=== PATIENT | female | born 1950 | race Caucasian/White ===

== ENCOUNTER 2023-07-25 18:47 | Inpatient (IN) ==
[2023-07-25] MEDS: OPTIRAY 320 125ml IV ONE ×2 (19:41→22:21)
--- NOTE | 2023-07-25 19:47 | Emergency Department Note ---
Impression & Plan Sepsis, Symptoms of cerebrovascular accident (CVA), Ureterolithiasis, Hydronephrosis due to obstruction of ureter, Complicated urinary tract infection, Hypomagnesemia, Hypokalemia, Acute kidney injury, Leukocytosis, Elevated lactic acid level ED Provider Note NAME: ALEXIS GALEANO AGE: 73 SEX: F ARRIVES VIA: Ambulance INFORMANT: Patient ED PROVIDER(S): Agustin Smith MD CHIEF COMPLAINT: Confusion. PLAN: Disposition: Admit MEDICAL DECISION MAKING: The patient is a pleasant 73-year-old woman with a past medical history of hypertension who presents to the emergency department via EMS from acute care for concern of new onset confusion that they noticed when she presented there with her grandson. Patient appeared confused and had trouble finding words. The patient's grandson who lives with the patient brought the patient to [facility] but due to the weather which include severe fog did not travel with the ambulance to the emergency department. The patient attempted to describe that she went to urgent care with her grandson because she was not feeling well since last night and had nausea and vomiting throughout the night. [facility] staff had reported that the patient had hypotension in the 60s/40s. They reported she did not know the year or month or place. She did remember her birthday and the president. On arrival to the emergency department the patient was afebrile with heart rate in the 100s and blood pressure 100/50s with O2 saturation 98% on RA. On my assessment of the patient in the room she had noticeable aphasia where she was unable to find words and did have some trouble with praxis even finding her phone and using it. I then was able to contact the patient's grandson using the patient's phone with her at the bedside. He admitted that he did not have any substantial conversation with the patient when he found her this afternoon and had gone to check on her because she had not gotten out of bed all day. He reports he asked her what was going on and she expressed that she did not feel well. He asked if she wanted to the hospital and she replied "no". Thus, he insisted on bringing her to urgent care which she did. He reports that she was last normal last night around 8 PM after dinner when they were speaking and having normal conversations. She is retired but is very active. The patient's grandson reports that she was diagnosed with COVID-19 over a week ago and had cough and congestion but has been doing well and improving without issue. Given the patient's stroke symptoms which are within 24 hours consideration for endovascular therapy may be possible if an occlusion is identified. Thus, stroke alert was activated. However, the patient is not a TNK candidate given last known well of over 23 hours ago. The patient's case was discussed with [facility] tel[place]roke neurology, Dr. Ward who did evaluate the patient via telestroke terminal while awaiting CT imaging results. EKG without overt acute ischemia. CXR negative for acute cardiopulmonary process per my personal preliminary review/interpretation. WBC 23 K with neutrophil predominance and left shift. H/H without recent for comparison. Platelets within normal limits. Chemistry with an gap of 12 and bicarbonate of 22 and so no significant metabolic acidosis. Potassium 3.3 and magnesium critically low at 0.9 with IV repletion provided. Creatinine 1.6 consistent with patient's clinically dry appearance without recent values for comparison. Initial high-sensitivity troponin 33, nonspecific. Lipase not elevated. CT of the head and CT of the head and neck were performed and were negative for acute ICH, ischemia. Additionally, no large vessel occlusion is seen. 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 Appreciate telestroke assistance, consultation recommendations. Agrees no evidence of large vessel occlusion on CTA imaging and so no role for intervention at this time. However symptoms are suspected to reflect a mild stroke which the patient exhibited improvement even during examination following initiation of IV fluid hydration. Recommends loading with full dose aspirin and Plavix as well as starting high-dose statin and proceeding with further stroke/TIA evaluation with MRI and close neurologic checks. The patient and her grandson were updated and did agree with plan for admission for further stroke evaluation. Case was discussed with Dr. Mayo, [facility] hospitalist who will evaluate the patient for admission. Of note, following discussion of admission the patient had an acute clinical change where she suddenly became rigors and confused with heart rate becoming acutely tachycardic in the 170s and had abruptly become hypoxic to the 80s placed on nasal cannula by nursing. Skin appeared mottled peripherally. Lung sounds were clear bilaterally, I did perform a limited bedside cardiac ultrasound and the patient's heart appeared hyperdynamic without overt pulmonary edema on lung ultrasound. At this time patient's additional fluids and IV magnesium more being prepared and for expedited. The patient did spike a fever to 38.5 and was given IV Tylenol. The patient's heart rate gradually improved with IV Tylenol fluids and IV magnesium. Heart rate had improved to the 120s and blood pressure was stable and normal. O2 saturation remained stable as well in the mid 90s on nasal cannula. Patient's mental status had returned to normal as well. Given concern for possible hypercoagulable state given her recent COVID patient was sent back to CT for additional imaging including CTA of the chest to exclude PE and CT of abdomen pelvis for concern for sepsis. CT of the head was also performed again given mental status change. CT of the head did not show any acute changes. CTA of the chest was negative for PE or focal consolidation. CT of the abdomen pelvis demonstrates 2 x 5 mm obstructing mid ureteral stone with associated hydroureteronephrosis where infection cannot be excluded and given the context is concerning for infected renal stone leading to urosepsis. Blood cultures have been obtained. Procalcitonin was markedly elevated 87. Lactic acid elevated at 4.5. Initial antibiotic treatment started with IV Zosyn. Case was reviewed with TONG Wesley PA-C with Dr. Zaina FORTUNE urology on-call. Admitting team updated. Appreciate consultation and recommendations. Urology to take the patient to the OR for stent placement. Further management per admitting team. Triage Nursing notes reviewed and agree them. Prior/external medical records reviewed Vital Signs: reviewed Differential diagnosis: Infection, dehydration, metabolic abnormality, hypo/hyperglycemia, electrolyte disturbance, anemia, hypoxia, cardiac sources, intracerebral event, toxicologic, neurologic, as well as other pathologies. ER treatment provided: See below. Diagnostics interpreted by me: ECG: Sinus tachycardia, 109 bpm, no ectopy, no overt ST elevation or depression, QTc 460, QRS 76. Cardiac Monitoring: An order for continuous cardiac monitoring was placed and demonstrated: Sinus tachycardia, 109 bpm, no ectopy, Laboratory studies: See below Imaging studies: See below Consultation(s): [facility]roke neurology, [facility] Sylvia Salcido[facility] TONG Wesley PA-C with Dr. Zaina FORTUNE urology on-call HPI: The patient is a pleasant 73-year-old woman with a past medical history of hypertension who presents to the emergency department via EMS from acute care for concern of new onset confusion that they noticed when she presented there with her grandson. Patient appeared confused and had trouble finding words. The patient's grandson who lives with the patient brought the patient to [facility] but due to the weather which include severe fog did not travel with the ambulance to the emergency department. The patient attempted to describe that she went to urgent care with her grandson because she was not feeling well since last night and had nausea and vomiting throughout the night. [facility] staff had reported that the patient had hypotension in the 60s/40s. They reported she did not know the year or month or place. She did remember her birthday and the president. On my assessment of the patient in the room she had noticeable aphasia where she was unable to find words and did have some trouble with praxis even finding her phone and using it. I then was able to contact the patient's grandson using the patient's phone with her at the bedside. He admitted that he did not have any substantial conversation with the patient when he found her this afternoon and had gone to check on her because she had not gotten out of bed all day. He reports he asked her what was going on and she expressed that she did not feel well. He asked if she wanted to the hospital and she replied "no". Thus, he insisted on bringing her to urgent care which she did. He reports that she was last normal last night around 8 PM after dinner when they were speaking and having normal conversations. She is retired but is very active. The patient's grandson reports that she was diagnosed with COVID-19 over a week ago and had cough and congestion but has been doing well and improving without issue. ROS: See above HPI for pertinent positives & negatives. A total of 10 systems reviewed and were otherwise negative. VITALS:See Below PHYSICAL EXAMINATION: GENERAL: Awake, alert, fatigued, in no distress HENT: Normocephalic, atraumatic. Oropharynx with dry mucous membranes and otherwise unremarkable. EYES: Normal conjunctiva. Sclera non-icteric. EOMI. No nystamgus. PEARRL. NECK: Supple. No nuchal rigidity. FROM. No JVD. RESPIRATORY: Clear to auscultation. CARDIAC: Regular rate, normal rhythm. Extremities warm and well perfused. Pulses equal. ABDOMEN: Soft, non-distended. No tenderness to palpation. No rebound or guarding. No masses. RECTAL: Deferred. MUSCULOSKELETAL: Chest examination reveals no tenderness. The back is symmetrical on inspection without obvious abnormality. There is no CVA tenderness to palpation. No joint edema. LOWER EXTREMITIES: Calves are equal size bilaterally and non-tender. No edema. No discoloration. NEURO: Moderate aphasia/word finding difficulty. Difficulty with praxis figuring out how to use her phone. No focal extremity weakness. CNII-XII grossly intact. SKIN: No rash or jaundice noted. ED COURSE: Critical Care: I have personally spent greater than 125 minutes of critical care time in the direct management of this patient. This includes bedside care, interpretation of diagnostic studies, and testing, discussion with consultants, patient, and family members, and other required patient management activities. This 125 minutes is in excess of all separately billable procedures. Agustin Smith MD Past Med/Surg History Medical History History of COVID-19 History of colon polyps Anxiety HTN (hypertension) Surgical History S/P wrist surgery History of colonoscopy History of hysterectomy History of tonsillectomy Family History Grandmother Family history of diabetes mellitus Family history of colon cancer Grandfather Family history of colon cancer Aunt Family history of colon cancer Uncle Family history of colon cancer Social History Smoking Status: Never smoker Do You Dip or Chew Tobacco: No; Hx Alcohol Use: No Preferred Language: Fijian Communication Ability: Effective Banquet Server On Call Required: No Beliefs That Will Affect Care: None Current Living Situation: Family Current Living Situation Comment: GRANDSON Feels Safe at Home: Yes Assistive Devices: None Allergies Allergies Allergy/AdvReac Type Severity Reaction Status Date / Time No Known Allergies Allergy Verified 07/25/23 19:50 Home Meds Home Medications Medication Instructions Recorded Confirmed lisinopril 10 mg tablet 10 mg PO QAM 11/14/20 07/25/23 atorvastatin 40 mg tablet 40 mg PO QAM 07/25/23 07/25/23 calcium carbonate 1,000 mg-vitamin 1 tab PO DAILY 07/25/23 07/25/23 D3 20 mcg (800 unit) tablet cyanocobalamin (vitamin B-12) 1,000 mcg PO QAM 07/25/23 07/25/23 1,000 mcg tablet ibandronate 150 mg tablet 150 mg PO .EVERY 30 DAYS 07/25/23 07/25/23 metformin 1,000 mg tablet 1,000 mg PO BIDWMEAL 07/25/23 07/25/23 venlafaxine 150 mg 150 mg PO DAILY 07/25/23 07/25/23 capsule,extended release 24 hr Results & Data (ED) Vital Signs Vital Signs - 24 hr 07/25/23 18:59 07/25/23 19:03 07/25/23 19:04 Temperature 36.4 C L Temperature Source Oral Pulse Rate 106 H 112 H 111 H Pulse Rate from SpO2 Sensor 110 H Respiratory Rate 17 22 Respiratory Effort / Characteristics Non-Labored Spontaneous Respiratory Depth Normal Blood Pressure 106/59 L Blood Pressure Mean 74 Pulse Oximetry 98 95 Oxygen Delivery Method Room Air Oxygen Flow Rate Sepsis New/Unexplained Change in Mental Status Yes Sepsis Action Taken by Nursing No Action Required 07/25/23 19:30 07/25/23 19:47 07/25/23 20:00 Temperature Temperature Source Pulse Rate 114 H 108 H 107 H Pulse Rate from SpO2 Sensor 114 H 108 H 108 H Respiratory Rate 16 18 15 Respiratory Effort / Characteristics Respiratory Depth Blood Pressure 113/67 Blood Pressure Mean 82 Pulse Oximetry 96 95 96 Oxygen Delivery Method Oxygen Flow Rate Sepsis New/Unexplained Change in Mental Status Sepsis Action Taken by Nursing 07/25/23 20:00 07/25/23 20:15 07/25/23 20:30 Temperature Temperature Source Pulse Rate 106 H 103 H Pulse Rate from SpO2 Sensor 101 H Respiratory Rate 22 29 H Respiratory Effort / Characteristics Respiratory Depth Blood Pressure 107/60 115/66 Blood Pressure Mean 84 82 Pulse Oximetry 96 Oxygen Delivery Method Oxygen Flow Rate Sepsis New/Unexplained Change in Mental Status Sepsis Action Taken by Nursing 07/25/23 20:45 07/25/23 20:51 07/25/23 21:29 Temperature Temperature Source Pulse Rate 110 H 101 H 181 H Pulse Rate from SpO2 Sensor 102 H 177 H Respiratory Rate 22 18 37 H Respiratory Effort / Characteristics Respiratory Depth Blood Pressure 121/57 L 122/67 Blood Pressure Mean 78 85 Pulse Oximetry 95 89 L Oxygen Delivery Method Oxygen Flow Rate Sepsis New/Unexplained Change in Mental Status Sepsis Action Taken by Nursing 07/25/23 21:30 07/25/23 21:32 07/25/23 22:00 Temperature Temperature Source Pulse Rate 180 H 144 H Pulse Rate from SpO2 Sensor 171 H Respiratory Rate 50 H 33 H Respiratory Effort / Characteristics Respiratory Depth Blood Pressure 101/60 Blood Pressure Mean 73 Pulse Oximetry 75 L 97 Oxygen Delivery Method Room Air Nasal Cannula Oxygen Flow Rate 4 Sepsis New/Unexplained Change in Mental Status Sepsis Action Taken by Nursing 07/25/23 22:02 07/25/23 22:31 07/25/23 23:00 Temperature Temperature Source Pulse Rate 142 H 136 H 127 H Pulse Rate from SpO2 Sensor 142 H 136 H 128 H Respiratory Rate 27 H 21 23 Respiratory Effort / Characteristics Respiratory Depth Blood Pressure 160/86 H Blood Pressure Mean 110 Pulse Oximetry 97 96 97 Oxygen Delivery Method Oxygen Flow Rate Sepsis New/Unexplained Change in Mental Status Sepsis Action Taken by Nursing 07/25/23 23:15 07/25/23 23:15 07/25/23 23:30 Temperature Temperature Source Pulse Rate 127 H 127 H Pulse Rate from SpO2 Sensor 127 H 128 H Respiratory Rate 24 24 Respiratory Effort / Characteristics Respiratory Depth Blood Pressure 103/73 Blood Pressure Mean 91 Pulse Oximetry 98 97 Oxygen Delivery Method Oxygen Flow Rate Sepsis New/Unexplained Change in Mental Status Sepsis Action Taken by Nursing 07/25/23 23:31 07/25/23 23:31 07/25/23 23:42 Temperature Temperature Source Pulse Rate 127 H 129 H Pulse Rate from SpO2 Sensor 126 H 129 H Respiratory Rate 24 26 H Respiratory Effort / Characteristics Respiratory Depth Blood Pressure 81/54 L Blood Pressure Mean 70 Pulse Oximetry 94 97 Oxygen Delivery Method Oxygen Flow Rate Sepsis New/Unexplained Change in Mental Status Sepsis Action Taken by Nursing 07/25/23 23:42 07/25/23 23:51 07/25/23 23:56 Temperature Temperature Source Pulse Rate 129 H Pulse Rate from SpO2 Sensor Respiratory Rate Respiratory Effort / Characteristics Respiratory Depth Blood Pressure 104/70 110/73 Blood Pressure Mean 75 95 Pulse Oximetry Oxygen Delivery Method Oxygen Flow Rate Sepsis New/Unexplained Change in Mental Status Sepsis Action Taken by Nursing 07/25/23 23:56 07/26/23 00:00 07/26/23 00:00 Temperature Temperature Source Pulse Rate 123 H 127 H Pulse Rate from SpO2 Sensor 129 H 123 H Respiratory Rate 24 23 Respiratory Effort / Characteristics Respiratory Depth Blood Pressure 130/71 Blood Pressure Mean 82 Pulse Oximetry 96 95 Oxygen Delivery Method Oxygen Flow Rate Sepsis New/Unexplained Change in Mental Status Sepsis Action Taken by Nursing 07/26/23 00:22 Temperature 36.6 C Temperature Source Oral Pulse Rate Pulse Rate from SpO2 Sensor Respiratory Rate Respiratory Effort / Characteristics Respiratory Depth Blood Pressure Blood Pressure Mean Pulse Oximetry Oxygen Delivery Method Oxygen Flow Rate Sepsis New/Unexplained Change in Mental Status Sepsis Action Taken by Nursing Laboratory Data Attestation: I reviewed the patient's lab results. 07/25/23 23:04 07/25/23 18:55 Lab Results 07/25/23 07/25/23 07/25/23 Range/Units 18:05 18:55 19:48 WBC 23.31 H (4.8-10.8) K/ul RBC 3.78 L (4.20-5.40) M/uL Hgb 11.1 L (12.0-16.0) g/dl Hct 34.0 L (37.0-47.0) % MCV 89.9 (80.0-100.0) fL MCH 29.4 (25.0-34.0) pg MCHC 32.6 (32.0-36.0) g/dL RDW Std Deviation 42.5 (36.4-46.3) fL RDW Coeff of Mary 13.1 (11.5-14.5) % Plt Count 215 (130-400) K/uL MPV 10.7 (9.4-12.4) fL Immature Gran % (Auto) 4.3 % Neut % (Auto) 89.2 % Lymph % (Auto) 2.2 % [place] % (Auto) 3.7 % Eos % (Auto) 0.4 % Baso % (Auto) 0.2 % Reticulocyte % (Auto) (0.50-2.00) % Neut # (Auto) 20.78 H (1.40-6.50) K/uL Lymph # (Auto) 0.52 L (1.20-3.40) K/uL [place] # (Auto) 0.87 H (0.11-0.59) K/uL Eos # (Auto) 0.09 (0.00-0.50) K/uL Baso # (Auto) 0.05 (0.00-0.20) K/uL Reticulocyte # (0.020-0.100) 10^6/uL Immature Gran # (Auto) 1.00 H (0.01-0.20) K/uL PT 12.1 H (9.0-12.0) Seconds INR 1.1 (0.9-1.1) APTT 27 (21-31) Seconds PTT Ratio 1.0 ABG pH (7.35-7.45) ABG pCO2 (35-46) mmHg ABG pO2 (80-95) mmHg ABG HCO3 (19-24) mmol/L ABG O2 Saturation (90-95) % ABG Base Excess (-9-1.8) mEq/L [place] Test (Pos) Oxygen Given Sodium 137 (136-145) mmol/L Potassium 3.3 L (3.5-5.1) mmol/L Chloride 103 (98-107) mmol/L Carbon Dioxide 22 (21-32) mmol/L Anion Gap 12 H (3-11) BUN 24 H (6-23) mg/dl Creatinine 1.60 H (0.6-1.2) mg/dl Est Cr Clr Drug Dosing 32.4 ml/min Est GFR ( Amer) 36.7 ml/min Est GFR (Non-Af Amer) 31.6 ml/min BUN/Creatinine Ratio 15.0 (10-20) Glucose 165 H (70-99(Fasting)) mg/dl POC Glucose 187 H (70-99) mg/dl Lactate (0.4-2.0) mmol/L Calcium 7.9 L (8.6-10.3) mg/dl Magnesium 0.9 L* (1.7-2.4) mg/dl Iron (35-150) mcg/dl Transferrin (200-360) mg/dl Ferritin (8-388) ng/ml Total Bilirubin 1.3 H (0.2-1.0) mg/dl AST 14 (13-39) U/L ALT 17 (7-52) U/L Alkaline Phosphatase 48 (34-104) U/L Troponin I High Sens 33.7 H (0-14) pg/ml Total Protein 5.7 L (6.0-8.3) gm/dl Albumin 3.3 L (3.4-5.0) gm/dl Globulin 2.4 L (2.5-4.0) gm/dl Albumin/Globulin Ratio 1.4 (0.9-2) Lipase (11-82) U/L Vitamin B12 496 (180-914) pg/ml Folate 8.70 (>5.38) ng/ml Procalcitonin 87.62 H (0-0.5) ng/ml Urine Color Urine Appearance (Clear) Urine pH (4.5-7.5) Ur Specific [place] (1.000-1.030) Urine Protein (Negative) Urine Glucose (UA) (Negative) Urine Ketones (Negative) Urine Blood (Negative) Urine Nitrite (Negative) Urine Bilirubin (Negative) Urine Urobilinogen (Negative) Ur Leukocyte Esterase (Negative) Urine WBC (Auto) (0-5) /hpf Urine RBC (Auto) (0-4) /hpf U Hyaline Cast (Auto) (0-5) /lpf U Epithel Cells (Auto) (0-5) /lpf Urine Bacteria (Auto) (Negative) SARS-CoV-2 (PCR) POSITIVE A* (Negative) Influenza Type A (PCR) Negative (Neg) Influenza Type B (PCR) Negative (Neg) RSV (RT-PCR) Negative (Neg) Blood Type Antibody Screen 07/25/23 07/25/23 07/26/23 Range/Units 22:49 23:04 00:00 WBC (4.8-10.8) K/ul RBC (4.20-5.40) M/uL Hgb 10.1 L (12.0-16.0) g/dl Hct 30.5 L (37.0-47.0) % MCV (80.0-100.0) fL MCH (25.0-34.0) pg MCHC (32.0-36.0) g/dL RDW Std Deviation (36.4-46.3) fL RDW Coeff of Mary (11.5-14.5) % Plt Count (130-400) K/uL MPV (9.4-12.4) fL Immature Gran % (Auto) % Neut % (Auto) % Lymph % (Auto) % [place] % (Auto) % Eos % (Auto) % Baso % (Auto) % Reticulocyte % (Auto) 1.10 (0.50-2.00) % Neut # (Auto) (1.40-6.50) K/uL Lymph # (Auto) (1.20-3.40) K/uL [place] # (Auto) (0.11-0.59) K/uL Eos # (Auto) (0.00-0.50) K/uL Baso # (Auto) (0.00-0.20) K/uL Reticulocyte # 0.040 (0.020-0.100) 10^6/uL Immature Gran # (Auto) (0.01-0.20) K/uL PT (9.0-12.0) Seconds INR (0.9-1.1) APTT (21-31) Seconds PTT Ratio ABG pH 7.39 (7.35-7.45) ABG pCO2 29 L (35-46) mmHg ABG pO2 101 H (80-95) mmHg ABG HCO3 18 L (19-24) mmol/L ABG O2 Saturation 98.9 H (90-95) % ABG Base Excess -6.0 (-9-1.8) mEq/L [place] Test Pos (Pos) Oxygen Given 6L Sodium (136-145) mmol/L Potassium (3.5-5.1) mmol/L Chloride (98-107) mmol/L Carbon Dioxide (21-32) mmol/L Anion Gap (3-11) BUN (6-23) mg/dl Creatinine (0.6-1.2) mg/dl Est Cr Clr Drug Dosing ml/min Est GFR ( Amer) ml/min Est GFR (Non-Af Amer) ml/min BUN/Creatinine Ratio (10-20) Glucose (70-99(Fasting)) mg/dl POC Glucose (70-99) mg/dl Lactate 4.5 H* (0.4-2.0) mmol/L Calcium (8.6-10.3) mg/dl Magnesium (1.7-2.4) mg/dl Iron < 10 L (35-150) mcg/dl Transferrin 175 L (200-360) mg/dl Ferritin 101.2 (8-388) ng/ml Total Bilirubin (0.2-1.0) mg/dl AST (13-39) U/L ALT (7-52) U/L Alkaline Phosphatase (34-104) U/L Troponin I High Sens 68.7 H* D (0-14) pg/ml Total Protein (6.0-8.3) gm/dl Albumin (3.4-5.0) gm/dl Globulin (2.5-4.0) gm/dl Albumin/Globulin Ratio (0.9-2) Lipase 7 L (11-82) U/L Vitamin B12 (180-914) pg/ml Folate (>5.38) ng/ml Procalcitonin (0-0.5) ng/ml Urine Color Yellow Urine Appearance Cloudy A (Clear) Urine pH 5.0 (4.5-7.5) Ur Specific [place] > 1.045 H (1.000-1.030) Urine Protein 1+ H (Negative) Urine Glucose (UA) Negative (Negative) Urine Ketones Trace H (Negative) Urine Blood 3+ H (Negative) Urine Nitrite Positive A (Negative) Urine Bilirubin Negative (Negative) Urine Urobilinogen Negative (Negative) Ur Leukocyte Esterase 2+ H (Negative) Urine WBC (Auto) >30 H (0-5) /hpf Urine RBC (Auto) >30 H (0-4) /hpf U Hyaline Cast (Auto) 5-10 H (0-5) /lpf U Epithel Cells (Auto) 5-10 H (0-5) /lpf Urine Bacteria (Auto) 4+ H (Negative) SARS-CoV-2 (PCR) (Negative) Influenza Type A (PCR) (Neg) Influenza Type B (PCR) (Neg) RSV (RT-PCR) (Neg) Blood Type O Positive Antibody Screen NEGATIVE Administered Medications Magnesium Sulfate/Dextrose (Magnesium Sulfate / D5w) 1 gm in 100 mls @ 50 mls/hr IV Q2H NILDA Stop: 07/26/23 03:44 Last Infusion: 07/25/23 22:35 Dose: Infused Documented By: Admin: 07/25/23 21:57 Dose: 50 mls/hr Documented By: DIMAS Discontinued Medications Aspirin (Aspirin Chew 324 Mg) 324 mg PO NOW STA Stop: 07/25/23 20:58 Last Admin: 07/25/23 21:56 Dose: Not Given Documented By: DIMAS Clopidogrel Bisulfate (Clopidogrel Bisulfate 300 Mg Tab) 300 mg PO NOW STA Stop: 07/25/23 20:58 Last Admin: 07/25/23 21:56 Dose: Not Given Documented By: BS Sodium Chloride (Nss) 1,000 mls @ 999 mls/hr IV .Q1H1M ONE Stop: 07/25/23 20:37 Last Infusion: 07/26/23 00:06 Dose: Infused Documented By: Admin: 07/25/23 20:49 Dose: 999 mls/hr Documented By: BS Magnesium Sulfate/Dextrose (Magnesium Sulfate / D5w) 1 gm in 100 mls @ 100 mls/hr IV Q1H NILDA Stop: 07/25/23 22:56 Last Infusion: 07/26/23 00:18 Dose: Infused Documented By: Admin: 07/25/23 23:12 Dose: 100 mls/hr Documented By: Infusion: 07/25/23 22:58 Dose: Infused Documented By: Admin: 07/25/23 21:58 Dose: 100 mls/hr Documented By: BS Potassium Chloride (K Smith / Wtr) 10 meq in 100 mls @ 100 mls/hr IV Q1H NILDA Stop: 07/25/23 22:59 Last Admin: 07/25/23 23:26 Dose: 100 mls/hr Documented By: BS Sodium Chloride (Nss) 1,000 mls @ 999 mls/hr IV .Q1H1M ONE Stop: 07/25/23 21:58 Last Infusion: 07/26/23 00:06 Dose: Infused Documented By: Admin: 07/25/23 21:56 Dose: 999 mls/hr Documented By: BS Acetaminophen (Ofirmev) 1,000 mg in 100 mls @ 400 mls/hr IV NOW STA Stop: 07/25/23 22:03 Last Infusion: 07/25/23 22:34 Dose: Infused Documented By: Admin: 07/25/23 22:03 Dose: 400 mls/hr Documented By: BS Piperacillin Sod/Tazobactam Sod (Zosyn) 4.5 gm in 100 mls @ 200 mls/hr IV NOW ONE Stop: 07/25/23 22:19 Last Infusion: 07/26/23 00:32 Dose: Infused Documented By: Admin: 07/25/23 23:55 Dose: 200 mls/hr Documented By: BS Prochlorperazine (Compazine) 1 mls @ 1 mls/min IV ONE ONE Stop: 07/25/23 21:55 Last Admin: 07/25/23 22:02 Dose: 1 mls/min Documented By: DIMAS Ioversol (Optiray 320 125ml) 117 ml IV ONCE ONE Stop: 07/25/23 19:41 Last Admin: 07/25/23 19:41 Dose: 117 ml Documented By: GEBrad Ioversol (Optiray 320 125ml) 117 ml IV ONCE ONE Stop: 07/25/23 22:21 Last Admin: 07/25/23 22:21 Dose: 117 ml Documented By: GEBrad Ondansetron HCl (Ondansetron Inj 2 Mg/Ml 2 Ml Vial) Confirm Administered Dose 4 mg .ROUTE .STK-MED ONE Stop: 07/25/23 21:54 Last Admin: 07/25/23 21:54 Dose: Not Given Documented By: DIMAS Imaging Data Radiologist's Impression: Head CT 07/25/23 19:36 CR Exam(s): CT HEAD Without Contrast EXAM: CT Head Without Intravenous Contrast CLINICAL HISTORY: Reason for exam: neuro deficit, acute stroke suspected. TECHNIQUE: Axial computed tomography images of the head/brain without intravenous contrast. CTDI is 46.85 mGy and DLP is 677.48 mGy-cm. Automated exposure control was utilized for the study. A dose lowering technique was utilized adhering to the principles of ALARA. COMPARISON: None. FINDINGS: Brain: No mass effect or acute infarct. No acute hemorrhage. Mild atrophy and chronic white matter disease. Ventricles: No hydrocephalus or midline shift. Bones/joints: No acute bony lesion. Soft tissues: No scalp hematoma. Sinuses: Clear. Mastoid air cells: No mastoid effusion. IMPRESSION: 1. Mild age-related findings. 2. No acute infarct, bleed, or acute intracranial abnormality. Communications: Call Doctor Stroke Electronically signed by: Raissa Hernandez M.D. 07/25/23 20:22 PM Head CTA 07/25/23 19:36 CR Exam(s): CTA HEAD With Contrast IV Amt: 117ML OPTIRAY 320 EXAM: CT Angiography Head With Intravenous Contrast CLINICAL HISTORY: Reason for exam: neuro deficit, acute stroke suspected. TECHNIQUE: Axial computed tomographic angiography images of the head with intravenous contrast. CTDI is 46.85 mGy and DLP is 677.48 mGy-cm. Automated exposure control was utilized for the study. A dose lowering technique was utilized adhering to the principles of ALARA. MIP reconstructed images were created and reviewed. CONTRAST: Patient received 117ML OPTIRAY 320 of IV contrast COMPARISON: None. FINDINGS: Right internal carotid artery: Patent. Right anterior cerebral artery: Patent. Right middle cerebral artery: Patent. Right posterior cerebral artery: Patent. Right vertebral artery: Patent. Right dominant system. Left internal carotid artery: Patent. Left anterior cerebral artery: Patent. Left middle cerebral artery: Patent. Left posterior cerebral artery: Patent. Left vertebral artery: Patent. Basilar artery: Patent. Other: Moderate atherosclerosis bilateral cavernous ICA, with less than 50% stenosis. IMPRESSION: 1. No aneurysm or large vessel occlusion. Communications: Call Doctor Stroke Electronically signed by: Raissa Hernandez M.D. 07/25/23 20:22 PM Neck CTA 07/25/23 19:36 CR Exam(s): CTA NECK With Contrast IV Amt: 117 cc opti 320 EXAM: CT Angiography Neck With Intravenous Contrast CLINICAL HISTORY: Reason for exam: neuro deficit, acute stroke suspected. TECHNIQUE: Routine carotid CT angiography protocol was performed with intravenous contrast. NASCET criteria using the distal ICAs for comparison were used for evaluation of stenoses. CTDI is 16.61 mGy and DLP is 479 mGy-cm. Automated exposure control was utilized for the study. A dose lowering technique was utilized adhering to the principles of ALARA. MIP reconstructed images were created and reviewed. Mild motion artifact. CONTRAST: Patient received 117 cc opti 320 of IV contrast COMPARISON: None. FINDINGS: Right common carotid artery: Patent. Right internal carotid artery: Patent. Atherosclerosis with approximately 50% stenosis. Right vertebral artery: Patent. Right dominant system. Left common carotid artery: Patent. Left internal carotid artery: Patent. Atherosclerosis with mild motion/streak artifact from the calcium, and irregular luminal narrowing, probably moderate, 50-60%. Suspect a high risk, ulcerative plaque in this location. Left vertebral artery: Patent. Other: Moderate atherosclerosis of the aortic arch. Mild apical pleural scarring bilaterally. IMPRESSION: 1. Moderate LEFT ICA stenosis, possible high risk, ulcerative plaque in this location. There is streak artifact from the calcium and patient motion limiting evaluation. 2. No dissection, occlusion, or other significant stenosis. CAROTID STENOSIS REFERENCE USING NASCET CRITERIA: % ICA stenosis = (1 - narrowest ICA diameter/diameter of distal cervical ICA) x 100. Mild - <50% stenosis. Moderate - 50-69% stenosis. Severe - 70-94% stenosis. Near occlusion - 95-99% stenosis. Occluded - 100% stenosis. Communications: Call Doctor Stroke Electronically signed by: Raissa Hernandez M.D. 07/25/23 20:22 PM Chest CTA 07/25/23 21:49 Exam(s): CTA CHEST IV Amt: 117 cc opti 320 EXAM: CT Angiography Chest With Intravenous Contrast CLINICAL HISTORY: Reason for exam: hypoxia, tachycardia, r/o PE. TECHNIQUE: Axial computed tomographic angiography images of the chest with intravenous contrast. CTDI is 23.36 mGy and DLP is 789.22 mGy-cm. Automated exposure control was utilized for the study. A dose lowering technique was utilized adhering to the principles of ALARA. MIP reconstructed images were created and reviewed. 117 cc Optiray 320 given IV. Moderate artifact breathing motion, body habitus and bilateral arms in the field of view. COMPARISON: None. FINDINGS: Pulmonary arteries: No pulmonary embolism. Aorta: No dissection or aneurysm. Lungs: Generally clear, mild bibasilar atelectasis or infiltrate, Limited by breathing motion. No consolidation. Pleural space: No significant effusion. No pneumothorax. Heart: Mild cardiomegaly. No significant pericardial effusion. No evidence of elevated right heart pressures. Bones/joints: No acute fracture. Soft tissues: Small hiatal hernia. Lymph nodes: No enlarged lymph nodes. IMPRESSION: 1. No pulmonary embolism. 2. Mild bibasilar atelectasis or infiltrate. 3. Limited detail due to motion artifact. Electronically signed by: Raissa Hernandez M.D. 07/25/23 23:[address] 07/25/23 21:50 Exam(s): CT HEAD Without Contrast EXAM: CT Head Without Intravenous Contrast CLINICAL HISTORY: Reason for exam: ams. TECHNIQUE: Axial computed tomography images of the head/brain without intravenous contrast. CTDI is 39.03 mGy and DLP is 546.36 mGy-cm. Automated exposure control was utilized for the study. A dose lowering technique was utilized adhering to the principles of ALARA. Residual contrast from prior exams. COMPARISON: Head CT 1937 hrs., same day. FINDINGS: Brain: No mass effect or acute infarct. No acute hemorrhage, with residual contrast in the vasculature, limiting detail. Mild atrophy and chronic white matter disease, stable. Ventricles: No hydrocephalus or midline shift. Bones/joints: No acute bony lesion. Soft tissues: No scalp hematoma. Sinuses: Clear. Mastoid air cells: No mastoid effusion. IMPRESSION: 1. Mild age-related findings. 2. No acute infarct, bleed, acute intracranial abnormality, or interval change. Electronically signed by: Raissa Hernandez M.D. 07/25/23 22:57 PM Abdomen/Pelvis CT 07/25/23 21:52 Exam(s): CT ABDOMEN + PELVIS With Contrast IV Amt: 117 cc opti 320 EXAM: CT Abdomen and Pelvis With Intravenous Contrast CLINICAL HISTORY: Reason for exam: ams, fever, vomiting. TECHNIQUE: Axial computed tomography images of the abdomen and pelvis with intravenous contrast. CTDI is 22.25 mGy and DLP is 1196.63 mGy-cm. Automated exposure control was utilized for the study. A dose lowering technique was utilized adhering to the principles of ALARA. Moderate artifact from arms in the field of view, breathing motion and body habitus. CONTRAST: Patient received 117 cc opti 320 of IV contrast COMPARISON: None. FINDINGS: Lung bases: Clear. Liver: Fatty. Gallbladder and bile ducts: Cholelithiasis without acute cholecystitis No ductal dilation. Pancreas: No ductal dilation. Spleen: Unremarkable. Adrenals: Unremarkable. Kidneys and ureters: Moderate patchy enhancement of the right renal cortex, with overall delayed enhancement, and a mildly obstructing 2 x 5 mm stone in the mid ureter at L5. Cannot rule out right pyelonephritis or infected stone, with perinephric edema, though edema can be seen with obstruction. No perinephric abscess. Small left renal cyst. No left hydronephrosis. Stomach and bowel: No obstruction. Fairly collapsed colon, wall thickening may be artifact, cannot rule out colitis. Appendix: Normal. Intraperitoneal space: No free air or fluid. Bones/joints: No acute fracture. Soft tissues: Unremarkable. Vasculature: No aortic aneurysm. Lymph nodes: No enlarged lymph nodes. Bladder: Mildly distended with contrast, grossly normal Reproductive: Unremarkable as visualized. IMPRESSION: 1. Mild right hydronephrosis, secondary to a 2 x 5 mm stone in the mid ureter. There also may be right pyelonephritis, correlate clinically; no perinephric abscess. 2. Collapsed colon, limits evaluation, cannot rule out colitis, correlate clinically to exclude this entity. 3. Cholelithiasis without acute cholecystitis. Electronically signed by: Raissa Hernandez M.D. 07/25/23 23:05 PM Discharge Plan Visit Data Chief Complaint: Altered Mental Status Stated Complaint: CONFUSION ED Provider: Agustin Smith Discharge Problem: Sepsis, Symptoms of cerebrovascular accident (CVA), Ureterolithiasis, Hydronephrosis due to obstruction of ureter, Complicated urinary tract infection, Hypomagnesemia, Hypokalemia, Acute kidney injury, Leukocytosis, Elevated lactic acid level Forms Stand Alone Forms: [facility] Prescriptions Prescriptions: No Action lisinopril 10 mg tablet 10 mg PO QAM metformin 1,000 mg Tablet 1,000 mg PO BIDWMEAL atorvastatin 40 mg Tablet 40 mg PO QAM venlafaxine 150 mg Capsule,Extended Release 24hr 150 mg PO DAILY ibandronate 150 mg Tablet 150 mg PO .EVERY 30 DAYS cyanocobalamin (vitamin B-12) 1,000 mcg Tablet 1,000 mcg PO QAM calcium carbonate-vitamin D3 1,000 mg-20 mcg (800 unit) Tablet 1 tab PO DAILY Referrals Referrals: Sulema Coughlin MD [Primary Care Provider] - Discharge Problem: Sepsis Qualifiers: Sepsis type: sepsis due to unspecified organism Sepsis acute organ dysfunction status: with acute organ dysfunction Severe sepsis acute organ dysfunction type: acute renal failure Acute renal failure type: unspecified Severe sepsis shock status: without septic shock Qualified Code(s): A41.9 - Sepsis, unspecified organism Leukocytosis Qualifiers: Leukocytosis type: bandemia Qualified Code(s): D72.825 - Bandemia
[2023-07-25 20:11] LABS: Hemoglobin 11.1 g/dl (12.0-16.0); Mean Corpuscular Hemoglobin 29.4 pg (25.0-34.0); Mean Corpuscular Hgb Conc 32.6 g/dL (32.0-36.0); Mean Corpuscular Volume 89.9 fL (80.0-100.0); Mean Platelet Volume 10.7 fL (9.4-12.4); Platelet Count 215 K/uL (130-400); RDW Coefficient of Variation 13.1 % (11.5-14.5); RDW Standard Deviation 42.5 fL (36.4-46.3); Red Blood Count 3.78 M/uL (4.20-5.40); White Blood Count 23.31 K/ul (4.8-10.8)
--- NOTE | 2023-07-25 20:22 | CT Scan Report ---
Exam(s): CTA NECK With Contrast IV Amt: 117 cc opti 320 EXAM: CT Angiography Neck With Intravenous Contrast CLINICAL HISTORY: Reason for exam: neuro deficit, acute stroke suspected. TECHNIQUE: Routine carotid CT angiography protocol was performed with intravenous contrast. NASCET criteria using the distal ICAs for comparison were used for evaluation of stenoses. CTDI is 16.61 mGy and DLP is 479 mGy-cm. Automated exposure control was utilized for the study. A dose lowering technique was utilized adhering to the principles of ALARA. MIP reconstructed images were created and reviewed. Mild motion artifact. CONTRAST: Patient received 117 cc opti 320 of IV contrast COMPARISON: None. FINDINGS: Right common carotid artery: Patent. Right internal carotid artery: Patent. Atherosclerosis with approximately 50% stenosis. Right vertebral artery: Patent. Right dominant system. Left common carotid artery: Patent. Left internal carotid artery: Patent. Atherosclerosis with mild motion/streak artifact from the calcium, and irregular luminal narrowing, probably moderate, 50-60%. Suspect a high risk, ulcerative plaque in this location. Left vertebral artery: Patent. Other: Moderate atherosclerosis of the aortic arch. Mild apical pleural scarring bilaterally. IMPRESSION: 1. Moderate LEFT ICA stenosis, possible high risk, ulcerative plaque in this location. There is streak artifact from the calcium and patient motion limiting evaluation. 2. No dissection, occlusion, or other significant stenosis. CAROTID STENOSIS REFERENCE USING NASCET CRITERIA: % ICA stenosis = (1 - narrowest ICA diameter/diameter of distal cervical ICA) x 100. Mild - <50% stenosis. Moderate - 50-69% stenosis. Severe - 70-94% stenosis. Near occlusion - 95-99% stenosis. Occluded - 100% stenosis. Communications: Call Doctor Stroke Electronically signed by: Raissa Hernandez M.D. 07/25/23 20:22 PM
--- NOTE | 2023-07-25 20:23 | CT Scan Report ---
Exam(s): CT HEAD Without Contrast EXAM: CT Head Without Intravenous Contrast CLINICAL HISTORY: Reason for exam: neuro deficit, acute stroke suspected. TECHNIQUE: Axial computed tomography images of the head/brain without intravenous contrast. CTDI is 46.85 mGy and DLP is 677.48 mGy-cm. Automated exposure control was utilized for the study. A dose lowering technique was utilized adhering to the principles of ALARA. COMPARISON: None. FINDINGS: Brain: No mass effect or acute infarct. No acute hemorrhage. Mild atrophy and chronic white matter disease. Ventricles: No hydrocephalus or midline shift. Bones/joints: No acute bony lesion. Soft tissues: No scalp hematoma. Sinuses: Clear. Mastoid air cells: No mastoid effusion. IMPRESSION: 1. Mild age-related findings. 2. No acute infarct, bleed, or acute intracranial abnormality. Communications: Call Doctor Stroke Electronically signed by: Raissa Hernandez M.D. 07/25/23 20:22 PM
--- NOTE | 2023-07-25 20:23 | CT Scan Report ---
Exam(s): CTA HEAD With Contrast IV Amt: 117ML OPTIRAY 320 EXAM: CT Angiography Head With Intravenous Contrast CLINICAL HISTORY: Reason for exam: neuro deficit, acute stroke suspected. TECHNIQUE: Axial computed tomographic angiography images of the head with intravenous contrast. CTDI is 46.85 mGy and DLP is 677.48 mGy-cm. Automated exposure control was utilized for the study. A dose lowering technique was utilized adhering to the principles of ALARA. MIP reconstructed images were created and reviewed. CONTRAST: Patient received 117ML OPTIRAY 320 of IV contrast COMPARISON: None. FINDINGS: Right internal carotid artery: Patent. Right anterior cerebral artery: Patent. Right middle cerebral artery: Patent. Right posterior cerebral artery: Patent. Right vertebral artery: Patent. Right dominant system. Left internal carotid artery: Patent. Left anterior cerebral artery: Patent. Left middle cerebral artery: Patent. Left posterior cerebral artery: Patent. Left vertebral artery: Patent. Basilar artery: Patent. Other: Moderate atherosclerosis bilateral cavernous ICA, with less than 50% stenosis. IMPRESSION: 1. No aneurysm or large vessel occlusion. Communications: Call Doctor Stroke Electronically signed by: Raissa Hernandez M.D. 07/25/23 20:22 PM
[2023-07-25 20:28] LABS: Calcium 7.9 mg/dl (8.6-10.3); Creatinine Clr Calc Pharmacy 32.4 ml/min; Est GFR (African American) 36.7 ml/min; Est GFR (Non-African American) 31.6 ml/min; Potassium 3.3 mmol/L (3.5-5.1)
[2023-07-25 20:34] LABS: Troponin I High Sensitivity 33.7 pg/ml (0-14)
[2023-07-25 20:38] LABS: INR 1.1 (0.9-1.1); Partial Thromboplastin Time 27 Seconds (21-31); Prothrombin Time 12.1 Seconds (9.0-12.0)
[2023-07-25 20:42] LABS: Albumin Globulin Ratio 1.4 (0.9-2); Albumin Level 3.3 gm/dl (3.4-5.0); Bilirubin,Total 1.3 mg/dl (0.2-1.0); Globulin 2.4 gm/dl (2.5-4.0); Magnesium 0.9 mg/dl (1.7-2.4); Total Protein 5.7 gm/dl (6.0-8.3)
[2023-07-25] MEDS: SODIUM CHLORIDE 0.9% 1,000 ML IV ONE ×2 (20:49→21:56)
[2023-07-25 21:03] LABS: Basophils # (auto) 0.05 K/uL (0.00-0.20); Basophils % (auto) 0.2 %; Eosinophils # (auto) 0.09 K/uL (0.00-0.50); Eosinophils % (auto) 0.4 %; Immature Granulocytes % (auto) 4.3 %; Lymphocytes # (auto) 0.52 K/uL (1.20-3.40); Lymphocytes % (auto) 2.2 %; Monocytes # (auto) 0.87 K/uL (0.11-0.59); Monocytes % (auto) 3.7 %; Neutrophils # (auto) 20.78 K/uL (1.40-6.50); Neutrophils % (auto) 89.2 %
[2023-07-25] MEDS: ONDANSETRON INJ 2 MG/ML 2 ML VIAL ONE (21:54)
[2023-07-25] MEDS: ASPIRIN CHEW 324 MG PO STA (21:56)
[2023-07-25] MEDS: CLOPIDOGREL BISULFATE 300 MG TAB PO STA (21:56)
[2023-07-25] MEDS: MAGNESIUM SULFATE / D5W 1 GM/100 ML BAG IV SCH ×2 (21:57→21:58)
[2023-07-25] MEDS: PROCHLORPERAZINE 1 ML IV ONE (22:02)
[2023-07-25] MEDS: ACETAMINOPHEN 1,000 MG/100 ML VIAL IV STA (22:03)
--- NOTE | 2023-07-25 22:58 | CT Scan Report ---
Exam(s): CT HEAD Without Contrast EXAM: CT Head Without Intravenous Contrast CLINICAL HISTORY: Reason for exam: ams. TECHNIQUE: Axial computed tomography images of the head/brain without intravenous contrast. CTDI is 39.03 mGy and DLP is 546.36 mGy-cm. Automated exposure control was utilized for the study. A dose lowering technique was utilized adhering to the principles of ALARA. Residual contrast from prior exams. COMPARISON: Head CT 1937 hrs., same day. FINDINGS: Brain: No mass effect or acute infarct. No acute hemorrhage, with residual contrast in the vasculature, limiting detail. Mild atrophy and chronic white matter disease, stable. Ventricles: No hydrocephalus or midline shift. Bones/joints: No acute bony lesion. Soft tissues: No scalp hematoma. Sinuses: Clear. Mastoid air cells: No mastoid effusion. IMPRESSION: 1. Mild age-related findings. 2. No acute infarct, bleed, acute intracranial abnormality, or interval change. Electronically signed by: Raissa Hernandez M.D. 07/25/23 22:57 PM
[2023-07-25 23:05] LABS: HCO3 ABG 18 mmol/L (19-24); Oxygen Saturation ABG 98.9 % (90-95); PCO2 ABG 29 mmHg (35-46); PO2 ABG 101 mmHg (80-95); pH ABG 7.39 (7.35-7.45)
--- NOTE | 2023-07-25 23:05 | CT Scan Report ---
Exam(s): CT ABDOMEN + PELVIS With Contrast IV Amt: 117 cc opti 320 EXAM: CT Abdomen and Pelvis With Intravenous Contrast CLINICAL HISTORY: Reason for exam: ams, fever, vomiting. TECHNIQUE: Axial computed tomography images of the abdomen and pelvis with intravenous contrast. CTDI is 22.25 mGy and DLP is 1196.63 mGy-cm. Automated exposure control was utilized for the study. A dose lowering technique was utilized adhering to the principles of ALARA. Moderate artifact from arms in the field of view, breathing motion and body habitus. CONTRAST: Patient received 117 cc opti 320 of IV contrast COMPARISON: None. FINDINGS: Lung bases: Clear. Liver: Fatty. Gallbladder and bile ducts: Cholelithiasis without acute cholecystitis No ductal dilation. Pancreas: No ductal dilation. Spleen: Unremarkable. Adrenals: Unremarkable. Kidneys and ureters: Moderate patchy enhancement of the right renal cortex, with overall delayed enhancement, and a mildly obstructing 2 x 5 mm stone in the mid ureter at L5. Cannot rule out right pyelonephritis or infected stone, with perinephric edema, though edema can be seen with obstruction. No perinephric abscess. Small left renal cyst. No left hydronephrosis. Stomach and bowel: No obstruction. Fairly collapsed colon, wall thickening may be artifact, cannot rule out colitis. Appendix: Normal. Intraperitoneal space: No free air or fluid. Bones/joints: No acute fracture. Soft tissues: Unremarkable. Vasculature: No aortic aneurysm. Lymph nodes: No enlarged lymph nodes. Bladder: Mildly distended with contrast, grossly normal Reproductive: Unremarkable as visualized. IMPRESSION: 1. Mild right hydronephrosis, secondary to a 2 x 5 mm stone in the mid ureter. There also may be right pyelonephritis, correlate clinically; no perinephric abscess. 2. Collapsed colon, limits evaluation, cannot rule out colitis, correlate clinically to exclude this entity. 3. Cholelithiasis without acute cholecystitis. Electronically signed by: Raissa Hernandez M.D. 07/25/23 23:05 PM
[2023-07-25 23:06] LABS: Allen Test Pos (Pos)
--- NOTE | 2023-07-25 23:06 | CT Scan Report ---
Exam(s): CTA CHEST IV Amt: 117 cc opti 320 EXAM: CT Angiography Chest With Intravenous Contrast CLINICAL HISTORY: Reason for exam: hypoxia, tachycardia, r/o PE. TECHNIQUE: Axial computed tomographic angiography images of the chest with intravenous contrast. CTDI is 23.36 mGy and DLP is 789.22 mGy-cm. Automated exposure control was utilized for the study. A dose lowering technique was utilized adhering to the principles of ALARA. MIP reconstructed images were created and reviewed. 117 cc Optiray 320 given IV. Moderate artifact breathing motion, body habitus and bilateral arms in the field of view. COMPARISON: None. FINDINGS: Pulmonary arteries: No pulmonary embolism. Aorta: No dissection or aneurysm. Lungs: Generally clear, mild bibasilar atelectasis or infiltrate, Limited by breathing motion. No consolidation. Pleural space: No significant effusion. No pneumothorax. Heart: Mild cardiomegaly. No significant pericardial effusion. No evidence of elevated right heart pressures. Bones/joints: No acute fracture. Soft tissues: Small hiatal hernia. Lymph nodes: No enlarged lymph nodes. IMPRESSION: 1. No pulmonary embolism. 2. Mild bibasilar atelectasis or infiltrate. 3. Limited detail due to motion artifact. Electronically signed by: Raissa Hernandez M.D. 07/25/23 23:05 PM
[2023-07-25 23:13] LABS: Influenza A virus by PCR Negative (Neg); Influenza B virus by PCR Negative (Neg); RSV by PCR Negative (Neg)
[2023-07-25] MEDS: POTASSIUM CHLORIDE / WTR 10 MEQ/100 ML PLCT IV SCH (23:26)
[2023-07-25 23:32] LABS: Hematocrit (blood only) 30.5 % (37.0-47.0); Hemoglobin 10.1 g/dl (12.0-16.0); Reticulocyte % 1.1 % (0.50-2.00); Reticulocytes # 0.04 10^6/uL (0.020-0.100)
[2023-07-25 23:36] LABS: SARS CoV2 RNA(COVID-19) Ceph POSITIVE (Negative)
[2023-07-25 23:46] LABS: Iron < 10 mcg/dl (35-150); Lipase 7 U/L (11-82); Transferrin 175 mg/dl (200-360)
[2023-07-25] MEDS: PIPERACILLIN/TAZOBACTAM 4.5 GM/100 ML BAG IV ONE (23:55)
--- NOTE | 2023-07-26 00:10 | Urology Consultation ---
<Statement entered by Stu Mahajan MD - 07/26/23 00:46> I have seen and discussed Ms. Kelly's case with Dillan Jones PA-C and agree with the above documentation. With fevers, leukocytosis, elevated lactic acid and vital sign changes as well as the stone seen on her CT scan, I am concerned for obstructed infection in the urine causing sepsis. I had a discussion with the patient and her family at the bedside about cystoscopy, right retrograde pyelogram and right ureteral stent placement. We discussed risks and benefits of the surgery including risks of bleeding, infection, injury to urinary tract, need for additional procedures. They expressed understanding and willingness to proceed with surgery. -Stu Mahajan MD. Date of Consultation July 26, 2023 Assessment & Plan (1) Sepsis: (2) Nephrolithiasis: I discussed with the treating emergency room physician and the patient is being admitted on the hospitalist service. There is concern the patient has underlying sepsis from urinary source we will therefore proceed as follows: Continue n.p.o. status Broad-spectrum antibiotics in the form of Zosyn Have been initiated. Antibiotic should continue and can be tailored based on culture results (patient has had blood and urine cultures ordered) IV fluid resuscitation should continue Patient is noted to have hypomagnesemia as well as hypokalemia and both have been supplemented thus far Serial labs to be followed Flomax has been ordered for expulsive therapy in the setting of the patient's documented nephrolithiasis Due to concern from sepsis from urinary source/pyelonephritis/nephrolithiasis we are planning on having the patient undergo cystoscopy with right ureteral stent placement with Dr. Mahajan this evening. I have discussed with the patient's grandson who is at bedside as well as the patient's daughter who is also at bedside and they expressed her understanding Additional recommendations be forthcoming based on her clinical course as it unfolds History of Present Illness Reason for Consultation: Nephrolithiasis/concern for sepsis from urinary source History of Present Illness This is a 73-year-old female who presented to the emergency department from an urgent care. The patient was somewhat confused at the time of my exam and I was able to converse with her grandson who was present at bedside. He notes that his grandmother had COVID approximate 2 weeks ago and she seemed to be improving from this. He did note that earlier today the patient had some generalized confusion and lethargy and did not want to get out of bed. He does note that she was essentially normal last evening at approximately 8:00 PM. Because of her confusion and lethargy she was taken to urgent care. At urgent care there was concern patient may have been suffering from a stroke so she was sent to [facility] emergency department Since arrival to the hospital patient has had labs and imaging which independent reviewed. A chest x-ray did not show any evidence of infiltrate. The patient had a CT scan of the head that showed no acute intracranial findings, specifically no acute stroke. The patient had a CT angiogram of the head and neck that did not show any vessel occlusions. Patient had a CT scan of the chest that showed no pulmonary emboli. She was noted to have bibasilar atelectasis versus infiltrates. Patient also had a CT scan of the abdomen that showed cholelithiasis without cholecystitis. The patient was also noted to have a 2 x 5 mm kidney stone on the right-hand side resulting in mild right hydronephrosis. There is also some stranding suggestive of pyelonephritis on the study. Labs were conducted including CBC her white blood cell count is elevated 23.3. Hemoglobin and hematocrit are 10.1 and 30.5. Platelet count is normal. Chemistry profile showed sodium is normal. Potassium is 3.3. BUN and creatinine are 24 and 1.6. Patient had a magnesium level of 0.9. Patient did have a slight elevation of her bilirubin at 1.3. There is no elevation of her remaining LFTs. Her lipase was nonelevated. The patient was tested for COVID which was positive. She was noted to be negative for influenza a and B as well as RSV. A lactic acid level was checked and was elevated at 4.5. There is also nowhere the mention that coagulation studies revealed a normal INR. The patient also had an ABG where she was noted to be nonacidotic with a pH of 7.39, pCO2 of 29, bicarb level of 18, and a pO2 of 101. A urinalysis is pending at this point. I was able to converse with the patient at the bedside. She does report some mild right flank pain not on the left. She denies any dysuria or hematuria. She denies any abdominal pain. She says she has no prior history of kidney stones. I also discussed with nursing staff and while the patient was in the emergency department she had episodes of hypotension with blood pressures as low as 80 systolic as well as tachycardia with heart rates as high as 170. She was also noted to be febrile at times with an axillary temperature of 38.1 At the time of my interview the patient was resting comfortably in bed she was in no distress. Allergies Allergy/AdvReac Type Severity Reaction Status Date / Time No Known Allergies Allergy Verified 07/25/23 19:50 Home Medications Medication Instructions Recorded Confirmed Type lisinopril 10 mg tablet 10 mg PO QAM 11/14/20 07/25/23 History atorvastatin 40 mg tablet 40 mg PO QAM 07/25/23 07/25/23 History calcium carbonate 1,000 mg-vitamin 1 tab PO DAILY 07/25/23 07/25/23 History D3 20 mcg (800 unit) tablet cyanocobalamin (vitamin B-12) 1,000 mcg PO QAM 07/25/23 07/25/23 History 1,000 mcg tablet ibandronate 150 mg tablet 150 mg PO .EVERY 30 DAYS 07/25/23 07/25/23 History metformin 1,000 mg tablet 1,000 mg PO BIDWMEAL 07/25/23 07/25/23 History venlafaxine 150 mg 150 mg PO DAILY 07/25/23 07/25/23 History capsule,extended release 24 hr Patient History Medical History History of colon polyps Anxiety HTN (hypertension) Surgical History S/P wrist surgery History of colonoscopy History of hysterectomy History of tonsillectomy Family History Grandmother Family history of diabetes mellitus Family history of colon cancer Grandfather Family history of colon cancer Aunt Family history of colon cancer Uncle Family history of colon cancer Social History Smoking Status: Never smoker Do You Dip or Chew Tobacco: No; Hx Alcohol Use: No Preferred Language: Arabic Communication Ability: Effective Wagon Driver Required: No Beliefs That Will Affect Care: None Current Living Situation: Family Current Living Situation Comment: GRANDSON Feels Safe at Home: Yes Assistive Devices: None Review of Systems Constitutional: + fever and + fatigue Ear, Nose, Mouth, Throat: no hearing loss Respiratory: no cough and no dyspnea Cardiovascular: no chest pain Gastrointestinal: no abdominal pain, no nausea and no vomiting Genitourinary: as per Subjective / HPI Musculoskeletal: + back pain (Right flank) Integumentary: no rash Neurologic: + generalized weakness and + confusion; no localized weakness Physical Exam Constitutional: WD/WN, vitals as above Eyes: no conjunctival abnormality ENMT: Ears: no hearing impairment and no external ear abnormality Mouth: no oropharynx abnormality Neck: trachea midline Respiratory: normal respiratory effort; no respiratory distress and no labored breathing Cardiovascular: Rate/Rhythm: regular rate and regular rhythm Vessels: dorsalis pedis pulses present and radial pulses present Gastrointestinal (Abdomen): Abdomen is soft and nondistended. There is no pain with palpation. Musculoskeletal: No calf tenderness Skin: no rashes Neurologic: At the time of my exam the patient was alert to person, place, and time. She could move all extremities and follows simple commands appropriately Genitourinary: Mild CVA tenderness with percussion on the right, no CVA tenderness with percussion on the left Results & Data Vital Signs (Past 12 Hours) Vital Signs Temp Pulse Resp BP Pulse Ox O2 Del Method O2 Flow Rate 07/25/23 23:51 129 H 07/25/23 22:02 142 H 27 H 160/86 H 97 07/25/23 22:00 144 H 33 H 07/25/23 21:32 97 Nasal Cannula 4 07/25/23 21:30 180 H 50 H 101/60 75 L Room Air 07/25/23 21:29 181 H 37 H 89 L 07/25/23 20:51 101 H 18 122/67 95 07/25/23 20:45 110 H 22 121/57 L 07/25/23 20:30 103 H 29 H 96 07/25/23 20:15 106 H 22 115/66 07/25/23 20:00 107/60 07/25/23 20:00 107 H 15 113/67 96 07/25/23 19:47 108 H 18 95 07/25/23 19:30 114 H 16 96 07/25/23 19:04 111 H 22 95 07/25/23 19:03 112 H 07/25/23 18:59 36.4 C L 106 H 17 106/59 L 98 Room Air PG Care Time/CCT Total # of Minutes Spent Total Time Spent with Patient: Total time spent is greater than 50% in coordination of care (as documented) at patient's floor/unit and/or counseling patient: Coding Level of Care Code 58750 INT INP/OBS CARE 3/75MIN Diagnoses Sepsis A41.9 Nephrolithiasis N20.0
[2023-07-26 00:12] LABS: Ferritin 101.2 ng/ml (8-388); Troponin I High Sensitivity 68.7 pg/ml (0-14)
--- NOTE | 2023-07-26 00:24 | History & Physical Report ---
Date of Service July 26, 2023 Assessment & Plan (1) Encephalopathy: Plan: Multifactorial: Severe sepsis (SIRS plus ARF plus lactic acidosis encephalopathy) secondary to complicated UTI secondary to obstructive uropathy Possible stroke given aphasia symptoms New onset anemia secondary to UGIB, Hemoccult positive melanotic stool noted at the ER hypertension, BP on the lower side hyperlipidemia, on statin Rx DM2 on oral medications, reasonable control as of recent hemoglobin A1c of 7.1 last March 2023 HCV status post Rx Hypokalemia, hypomagnesemia secondary to illness Recent COVID-19 illness from 2 weeks ago PCU CS, Cefepime Follow lactic acid response to IVF Flomax Urology consult Re: Obstructive uropathy/sepsis (Urgent stent placement recommended by by specialist.) PPI for UGIB GI consult re: UGIB Anemia workup, transfuse PRBC if hemoglobin less than 8 and or for symptomatic anemia N.p.o. status for possible procedures. Appropriate to hold home BP meds for now given borderline BP Neurochecks Hold off on additional antiplatelet Rx for now given active UGIB MRI brain, TTE for additional stroke workup Neurology consult Re: Aphasia possible CVA Update lipid profile and hemoglobin A1c ISS BG goal 1 10-1 40 Replace electrolytes DVT prophylaxis. SCDs Re: UGIB Full code Patient daughter requesting updates providers. Ms. Estrella Ector, contact #[phone]. Text document was generated using TinyTap voice recognition software. It may contain grammatical or spelling errors. Kindly contact undersigned for clarification of any documentation item in question. History of Present Illness Chief Complaint: Confusion Primary Care Provider: Sulema Coughlin MD History obtained from patient, family, and records. Limited history from patient secondary to aphasia. Medical history significant for hypertension, hyperlipidemia, DM2 on oral medications, HCV status post Rx, anxiety/mood disorder. Patient sick with COVID-19 illness 2 weeks ago as per family. Self-limited cough symptoms. Last week, patient noted to have right flank pain complaints. Patient not feeling well, not eating a lot. Occasional NSAID intake at home as per family. No hematuria complaints. Patient noted to be confused this morning. Could not get words out. Patient was not able to corn picker grandchild from school. SBP noted to be 60s at home. Patient brought to the ER for evaluation. Stroke alert called upon arrival at the ER. Aspirin, Plavix, Zosyn administered at the ER. Patient unable to answer questions regarding headache, chest pain, SOB, abdominal/flank pain. 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 Allergies Allergy/AdvReac Type Severity Reaction Status Date / Time No Known Allergies Allergy Verified 07/25/23 19:50 Home Medications Medication Instructions Recorded Confirmed Type lisinopril 10 mg tablet 10 mg PO QAM 11/14/20 07/25/23 History atorvastatin 40 mg tablet 40 mg PO QAM 07/25/23 07/25/23 History calcium carbonate 1,000 mg-vitamin 1 tab PO DAILY 07/25/23 07/25/23 History D3 20 mcg (800 unit) tablet cyanocobalamin (vitamin B-12) 1,000 mcg PO QAM 07/25/23 07/25/23 History 1,000 mcg tablet ibandronate 150 mg tablet 150 mg PO .EVERY 30 DAYS 07/25/23 07/25/23 History metformin 1,000 mg tablet 1,000 mg PO BIDWMEAL 07/25/23 07/25/23 History venlafaxine 150 mg 150 mg PO DAILY 07/25/23 07/25/23 History capsule,extended release 24 hr Past Med/Surg History Medical History History of COVID-19 History of colon polyps Anxiety HTN (hypertension) Surgical History S/P wrist surgery History of colonoscopy History of hysterectomy History of tonsillectomy Family History Grandmother Family history of diabetes mellitus Family history of colon cancer Grandfather Family history of colon cancer Aunt Family history of colon cancer Uncle Family history of colon cancer Social History Smoking Status: Current some day smoker Tobacco Type: Cigarettes Second Hand Exposure: No; Do You Dip or Chew Tobacco: No; Hx Alcohol Use: No Hx Substance Use: No Preferred Language: Arabic Communication Ability: Effective 911 Emergency Dispatcher Required: No Beliefs That Will Affect Care: None Current Living Situation: Family Current Living Situation Comment: Pt's grandsonIlir lives with her Feels Safe at Home: Yes Assistive Devices: None Review of Systems Review of Systems: Could not be reliably obtained secondary to aphasia Physical Exam Physical Exam: GENERAL: Slightly uncomfortable, aphasic, obese, no respiratory distress SKIN: Pallor, warm HEENT: Pale palpebral conjunctivae, no ptosis, dry buccal mucosa NECK : Supple, no tenderness CHEST : CTA, no tenderness HEART : Tachycardic, no obvious murmurs ABDOMEN: Some distention, right flank tenderness RECTAL : Intact sphincter, melanotic stool, FOBT positive EXTREMITIES : No LE swelling/tenderness, no other conspicuous deformities noted NEUROLOGIC : Aphasic, no facial asymmetry, gait and stance not assessed Results & Data Results & Data Vital Signs (Past 12 Hours) Vital Signs Temp Pulse Resp BP Pulse Ox O2 Del Method O2 Flow Rate 07/26/23 00:22 36.6 C 07/26/23 00:00 127 H 23 95 07/26/23 00:00 130/71 07/25/23 23:56 123 H 24 96 07/25/23 23:56 110/73 07/25/23 23:51 129 H 07/25/23 23:42 104/70 07/25/23 23:42 129 H 26 H 97 07/25/23 23:31 81/54 L 07/25/23 23:31 127 H 24 94 07/25/23 23:30 127 H 24 97 07/25/23 23:15 103/73 07/25/23 23:15 127 H 24 98 07/25/23 23:00 127 H 23 97 07/25/23 22:31 136 H 21 96 07/25/23 22:02 142 H 27 H 160/86 H 97 07/25/23 22:00 144 H 33 H 07/25/23 21:32 97 Nasal Cannula 4 07/25/23 21:30 180 H 50 H 101/60 75 L Room Air 07/25/23 21:29 181 H 37 H 89 L 07/25/23 20:51 101 H 18 122/67 95 07/25/23 20:45 110 H 22 121/57 L 07/25/23 20:30 103 H 29 H 96 07/25/23 20:15 106 H 22 115/66 07/25/23 20:00 107/60 07/25/23 20:00 107 H 15 113/67 96 07/25/23 19:47 108 H 18 95 07/25/23 19:30 114 H 16 96 07/25/23 19:04 111 H 22 95 07/25/23 19:03 112 H 07/25/23 18:59 36.4 C L 106 H 17 106/59 L 98 Room Air Laboratory Results Laboratory Results WBC 23.31 K/ul (4.8-10.8) H 07/25/23 18:55 RBC 3.78 M/uL (4.20-5.40) L 07/25/23 18:55 Hgb 10.1 g/dl (12.0-16.0) L 07/25/23 23:04 Hct 30.5 % (37.0-47.0) L 07/25/23 23:04 MCV 89.9 fL (80.0-100.0) 07/25/23 18:55 MCH 29.4 pg (25.0-34.0) 07/25/23 18:55 MCHC 32.6 g/dL (32.0-36.0) 07/25/23 18:55 RDW Std Deviation 42.5 fL (36.4-46.3) 07/25/23 18:55 RDW Coeff of Mary 13.1 % (11.5-14.5) 07/25/23 18:55 Plt Count 215 K/uL (130-400) 07/25/23 18:55 MPV 10.7 fL (9.4-12.4) 07/25/23 18:55 Immature Gran % (Auto) 4.3 % 07/25/23 18:55 Neut % (Auto) 89.2 % 07/25/23 18:55 Lymph % (Auto) 2.2 % 07/25/23 18:55 Rooks % (Auto) 3.7 % 07/25/23 18:55 Eos % (Auto) 0.4 % 07/25/23 18:55 Baso % (Auto) 0.2 % 07/25/23 18:55 Reticulocyte % (Auto) 1.10 % (0.50-2.00) 07/25/23 23:04 Neut # (Auto) 20.78 K/uL (1.40-6.50) H 07/25/23 18:55 Lymph # (Auto) 0.52 K/uL (1.20-3.40) L 07/25/23 18:55 Rooks # (Auto) 0.87 K/uL (0.11-0.59) H 07/25/23 18:55 Eos # (Auto) 0.09 K/uL (0.00-0.50) 07/25/23 18:55 Baso # (Auto) 0.05 K/uL (0.00-0.20) 07/25/23 18:55 Reticulocyte # 0.040 10^6/uL (0.020-0.100) 07/25/23 23:04 Immature Gran # (Auto) 1.00 K/uL (0.01-0.20) H 07/25/23 18:55 PT 12.1 Seconds (9.0-12.0) H 07/25/23 18:55 INR 1.1 (0.9-1.1) 07/25/23 18:55 APTT 27 Seconds (21-31) 07/25/23 18:55 PTT Ratio 1.0 07/25/23 18:55 ABG pH 7.39 (7.35-7.45) 07/25/23 22:49 ABG pCO2 29 mmHg (35-46) L 07/25/23 22:49 ABG pO2 101 mmHg (80-95) H 07/25/23 22:49 ABG HCO3 18 mmol/L (19-24) L 07/25/23 22:49 ABG O2 Saturation 98.9 % (90-95) H 07/25/23 22:49 ABG Base Excess -6.0 mEq/L (-9-1.8) 07/25/23 22:49 Damion Test Pos (Pos) 07/25/23 22:49 Oxygen Given 6L 07/25/23 22:49 Sodium 137 mmol/L (136-145) 07/25/23 18:55 Potassium 3.3 mmol/L (3.5-5.1) L 07/25/23 18:55 Chloride 103 mmol/L (98-107) 07/25/23 18:55 Carbon Dioxide 22 mmol/L (21-32) 07/25/23 18:55 Anion Gap 12 (3-11) H 07/25/23 18:55 BUN 24 mg/dl (6-23) H 07/25/23 18:55 Creatinine 1.60 mg/dl (0.6-1.2) H 07/25/23 18:55 Est Cr Clr Drug Dosing 32.4 ml/min 07/25/23 18:55 Est GFR ( Amer) 36.7 ml/min 07/25/23 18:55 Est GFR (Non-Af Amer) 31.6 ml/min 07/25/23 18:55 BUN/Creatinine Ratio 15.0 (10-20) 07/25/23 18:55 Glucose 165 mg/dl (70-99(Fasting)) H 07/25/23 18:55 POC Glucose 187 mg/dl (70-99) H 07/25/23 19:48 Lactate 4.5 mmol/L (0.4-2.0) H* 07/25/23 23:04 Calcium 7.9 mg/dl (8.6-10.3) L 07/25/23 18:55 Magnesium 0.9 mg/dl (1.7-2.4) L* 07/25/23 18:55 Iron < 10 mcg/dl (35-150) L 07/25/23 23:04 Transferrin 175 mg/dl (200-360) L 07/25/23 23:04 Ferritin 101.2 ng/ml (8-388) 07/25/23 23:04 Total Bilirubin 1.3 mg/dl (0.2-1.0) H 07/25/23 18:55 AST 14 U/L (13-39) 07/25/23 18:55 ALT 17 U/L (7-52) 07/25/23 18:55 Alkaline Phosphatase 48 U/L (34-104) 07/25/23 18:55 Troponin I High Sens 68.7 pg/ml (0-14) H* D 07/25/23 23:04 Total Protein 5.7 gm/dl (6.0-8.3) L 07/25/23 18:55 Albumin 3.3 gm/dl (3.4-5.0) L 07/25/23 18:55 Globulin 2.4 gm/dl (2.5-4.0) L 07/25/23 18:55 Albumin/Globulin Ratio 1.4 (0.9-2) 07/25/23 18:55 Lipase 7 U/L (11-82) L 07/25/23 23:04 Procalcitonin 87.62 ng/ml (0-0.5) H 07/25/23 18:55 SARS-CoV-2 (PCR) POSITIVE (Negative) A* 07/25/23 18:05 Influenza Type A (PCR) Negative (Neg) 07/25/23 18:05 Influenza Type B (PCR) Negative (Neg) 07/25/23 18:05 RSV (RT-PCR) Negative (Neg) 07/25/23 18:05 Impressions Head CTA 07/25/23 19:36 CR Exam(s): CTA HEAD With Contrast IV Amt: 117ML OPTIRAY 320 EXAM: CT Angiography Head With Intravenous Contrast CLINICAL HISTORY: Reason for exam: neuro deficit, acute stroke suspected. TECHNIQUE: Axial computed tomographic angiography images of the head with intravenous contrast. CTDI is 46.85 mGy and DLP is 677.48 mGy-cm. Automated exposure control was utilized for the study. A dose lowering technique was utilized adhering to the principles of ALARA. MIP reconstructed images were created and reviewed. CONTRAST: Patient received 117ML OPTIRAY 320 of IV contrast COMPARISON: None. FINDINGS: Right internal carotid artery: Patent. Right anterior cerebral artery: Patent. Right middle cerebral artery: Patent. Right posterior cerebral artery: Patent. Right vertebral artery: Patent. Right dominant system. Left internal carotid artery: Patent. Left anterior cerebral artery: Patent. Left middle cerebral artery: Patent. Left posterior cerebral artery: Patent. Left vertebral artery: Patent. Basilar artery: Patent. Other: Moderate atherosclerosis bilateral cavernous ICA, with less than 50% stenosis. IMPRESSION: 1. No aneurysm or large vessel occlusion. Communications: Call Doctor Stroke Electronically signed by: Raissa Hernandez M.D. 07/25/23 20:22 PM Neck CTA 07/25/23 19:36 CR Exam(s): CTA NECK With Contrast IV Amt: 117 cc opti 320 EXAM: CT Angiography Neck With Intravenous Contrast CLINICAL HISTORY: Reason for exam: neuro deficit, acute stroke suspected. TECHNIQUE: Routine carotid CT angiography protocol was performed with intravenous contrast. NASCET criteria using the distal ICAs for comparison were used for evaluation of stenoses. CTDI is 16.61 mGy and DLP is 479 mGy-cm. Automated exposure control was utilized for the study. A dose lowering technique was utilized adhering to the principles of ALARA. MIP reconstructed images were created and reviewed. Mild motion artifact. CONTRAST: Patient received 117 cc opti 320 of IV contrast COMPARISON: None. FINDINGS: Right common carotid artery: Patent. Right internal carotid artery: Patent. Atherosclerosis with approximately 50% stenosis. Right vertebral artery: Patent. Right dominant system. Left common carotid artery: Patent. Left internal carotid artery: Patent. Atherosclerosis with mild motion/streak artifact from the calcium, and irregular luminal narrowing, probably moderate, 50-60%. Suspect a high risk, ulcerative plaque in this location. Left vertebral artery: Patent. Other: Moderate atherosclerosis of the aortic arch. Mild apical pleural scarring bilaterally. IMPRESSION: 1. Moderate LEFT ICA stenosis, possible high risk, ulcerative plaque in this location. There is streak artifact from the calcium and patient motion limiting evaluation. 2. No dissection, occlusion, or other significant stenosis. CAROTID STENOSIS REFERENCE USING NASCET CRITERIA: % ICA stenosis = (1 - narrowest ICA diameter/diameter of distal cervical ICA) x 100. Mild - <50% stenosis. Moderate - 50-69% stenosis. Severe - 70-94% stenosis. Near occlusion - 95-99% stenosis. Occluded - 100% stenosis. Communications: Call Doctor Stroke Electronically signed by: Raissa Hernandez M.D. 07/25/23 20:22 PM Chest CTA 07/25/23 21:49 Exam(s): CTA CHEST IV Amt: 117 cc opti 320 EXAM: CT Angiography Chest With Intravenous Contrast CLINICAL HISTORY: Reason for exam: hypoxia, tachycardia, r/o PE. TECHNIQUE: Axial computed tomographic angiography images of the chest with intravenous contrast. CTDI is 23.36 mGy and DLP is 789.22 mGy-cm. Automated exposure control was utilized for the study. A dose lowering technique was utilized adhering to the principles of ALARA. MIP reconstructed images were created and reviewed. 117 cc Optiray 320 given IV. Moderate artifact breathing motion, body habitus and bilateral arms in the field of view. COMPARISON: None. FINDINGS: Pulmonary arteries: No pulmonary embolism. Aorta: No dissection or aneurysm. Lungs: Generally clear, mild bibasilar atelectasis or infiltrate, Limited by breathing motion. No consolidation. Pleural space: No significant effusion. No pneumothorax. Heart: Mild cardiomegaly. No significant pericardial effusion. No evidence of elevated right heart pressures. Bones/joints: No acute fracture. Soft tissues: Small hiatal hernia. Lymph nodes: No enlarged lymph nodes. IMPRESSION: 1. No pulmonary embolism. 2. Mild bibasilar atelectasis or infiltrate. 3. Limited detail due to motion artifact. Electronically signed by: Raissa Hernandez M.D. 07/25/23 23:[address] 07/25/23 21:50 Exam(s): CT HEAD Without Contrast EXAM: CT Head Without Intravenous Contrast CLINICAL HISTORY: Reason for exam: ams. TECHNIQUE: Axial computed tomography images of the head/brain without intravenous contrast. CTDI is 39.03 mGy and DLP is 546.36 mGy-cm. Automated exposure control was utilized for the study. A dose lowering technique was utilized adhering to the principles of ALARA. Residual contrast from prior exams. COMPARISON: Head CT 1937 hrs., same day. FINDINGS: Brain: No mass effect or acute infarct. No acute hemorrhage, with residual contrast in the vasculature, limiting detail. Mild atrophy and chronic white matter disease, stable. Ventricles: No hydrocephalus or midline shift. Bones/joints: No acute bony lesion. Soft tissues: No scalp hematoma. Sinuses: Clear. Mastoid air cells: No mastoid effusion. IMPRESSION: 1. Mild age-related findings. 2. No acute infarct, bleed, acute intracranial abnormality, or interval change. Electronically signed by: Raissa Hernandez M.D. 07/25/23 22:57 PM Abdomen/Pelvis CT 07/25/23 21:52 Exam(s): CT ABDOMEN + PELVIS With Contrast IV Amt: 117 cc opti 320 EXAM: CT Abdomen and Pelvis With Intravenous Contrast CLINICAL HISTORY: Reason for exam: ams, fever, vomiting. TECHNIQUE: Axial computed tomography images of the abdomen and pelvis with intravenous contrast. CTDI is 22.25 mGy and DLP is 1196.63 mGy-cm. Automated exposure control was utilized for the study. A dose lowering technique was utilized adhering to the principles of ALARA. Moderate artifact from arms in the field of view, breathing motion and body habitus. CONTRAST: Patient received 117 cc opti 320 of IV contrast COMPARISON: None. FINDINGS: Lung bases: Clear. Liver: Fatty. Gallbladder and bile ducts: Cholelithiasis without acute cholecystitis No ductal dilation. Pancreas: No ductal dilation. Spleen: Unremarkable. Adrenals: Unremarkable. Kidneys and ureters: Moderate patchy enhancement of the right renal cortex, with overall delayed enhancement, and a mildly obstructing 2 x 5 mm stone in the mid ureter at L5. Cannot rule out right pyelonephritis or infected stone, with perinephric edema, though edema can be seen with obstruction. No perinephric abscess. Small left renal cyst. No left hydronephrosis. Stomach and bowel: No obstruction. Fairly collapsed colon, wall thickening may be artifact, cannot rule out colitis. Appendix: Normal. Intraperitoneal space: No free air or fluid. Bones/joints: No acute fracture. Soft tissues: Unremarkable. Vasculature: No aortic aneurysm. Lymph nodes: No enlarged lymph nodes. Bladder: Mildly distended with contrast, grossly normal Reproductive: Unremarkable as visualized. IMPRESSION: 1. Mild right hydronephrosis, secondary to a 2 x 5 mm stone in the mid ureter. There also may be right pyelonephritis, correlate clinically; no perinephric abscess. 2. Collapsed colon, limits evaluation, cannot rule out colitis, correlate clinically to exclude this entity. 3. Cholelithiasis without acute cholecystitis. Electronically signed by: Raissa Hernandez M.D. 07/25/23 23:05 PM Diagnostic Findings EKG as per my interpretation : Rate 105, sinus tachycardia, normal axis, T wave abnormalities septal leads
[2023-07-26] MEDS ORDERED: LIDOCAINE 2% 2 ML VIAL/AMP(20MG/ML) INFIL ONE (00:41)
[2023-07-26] MEDS ORDERED: PROPOFOL IV EMULSION 10 MG/ML 20 ML VIAL IV ONE (00:41)
[2023-07-26 00:45] LABS: Appearance Urine Cloudy (Clear); Bacteria Urine Automated 4+ (Negative); Bilirubin Urine Negative (Negative); Blood Urine 3+ (Negative); Color Urine Yellow; Glucose Urine UA Negative (Negative); Ketones Urine Trace (Negative); Leukocyte Esterase Urine 2+ (Negative); Nitrite Urine Positive (Negative); Protein Urine 1+ (Negative); RBC Urine Automated >30 /hpf (0-4); Specific Gravity Urine > 1.045 (1.000-1.030); Urobilinogen Urine Negative (Negative); WBC Urine Automated >30 /hpf (0-5)
[2023-07-26 00:56] LABS: Folate (Folic Acid),Ser orPlas 8.7 ng/ml (>5.38)
[2023-07-26] MEDS ORDERED: fentaNYL citrate PF 100 MCG/2 ML VIAL ONE (01:15)
[2023-07-26] MEDS: DIATRIZOATE MEGLUMINE 30% 100ML VIAL INSTIL PRN (01:25)
--- NOTE | 2023-07-26 01:35 | Anesthesiology Consultation ---
Date of Service July 26, 2023 Assessment & Plan Chart Review Chart Review: Acceptable Risk for Surgery Consults Requested none History Surgery Operation Date: 07/26/23 01:30 Proposed Procedures p Cystoscopy Retrograde - Stu Mahajan MD Height/Weight Height: 5 ft 6 in Weight: 73.391 kg Allergies Allergy/AdvReac Type Severity Reaction Status Date / Time No Known Allergies Allergy Verified 07/25/23 19:50 Medications Home Medications Medication Instructions Recorded Confirmed Last Taken lisinopril 10 mg tablet 10 mg PO QAM 11/14/20 07/25/23 11/23/20 05:25 atorvastatin 40 mg tablet 40 mg PO QAM 07/25/23 07/25/23 Unknown calcium carbonate 1,000 mg-vitamin 1 tab PO DAILY 07/25/23 07/25/23 Unknown D3 20 mcg (800 unit) tablet cyanocobalamin (vitamin B-12) 1,000 mcg PO QAM 07/25/23 07/25/23 Unknown 1,000 mcg tablet ibandronate 150 mg tablet 150 mg PO .EVERY 30 DAYS 07/25/23 07/25/23 Unknown metformin 1,000 mg tablet 1,000 mg PO BIDWMEAL 07/25/23 07/25/23 Unknown venlafaxine 150 mg 150 mg PO DAILY 07/25/23 07/25/23 Unknown capsule,extended release 24 hr Active Medications Generic Name Dose Route Start Last Admin Trade Name Freq PRN Reason Stop Dose Admin Magnesium Sulfate/Dextrose 1 gm in 100 mls @ 50 mls/hr 07/25/23 21:45 07/25/23 22:35 Magnesium Sulfate / D5w IV 07/26/23 03:44 Infused Q2H NILDA Infusion Past Medical History Medical History History of COVID-19 History of colon polyps Anxiety HTN (hypertension) Past Family History Family History Grandmother Family history of diabetes mellitus Family history of colon cancer Grandfather Family history of colon cancer Aunt Family history of colon cancer Uncle Family history of colon cancer Past Surgical History Surgical History S/P wrist surgery History of colonoscopy History of hysterectomy History of tonsillectomy Social History Smoking Status: Never smoker tobacco type: cigarettes Do You Dip or Chew Tobacco: No Hx Alcohol Use: No substance use type: does not use Physical Exam Vital Signs Last Vital Signs Temp 36.6 C 07/26/23 00:22 Pulse 127 H 07/26/23 00:00 Resp 23 07/26/23 00:00 BP 130/71 07/26/23 00:00 Pulse Ox 95 07/26/23 00:00 O2 Del Method Nasal Cannula 07/25/23 21:32 O2 Flow Rate 4 07/25/23 21:32 Testing Laboratory Results 07/25/23 23:04 07/25/23 18:55 PT 12.1 Seconds (9.0-12.0) H 07/25/23 18:55 INR 1.1 (0.9-1.1) 07/25/23 18:55 APTT 27 Seconds (21-31) 07/25/23 18:55 Urine Color Yellow 07/26/23 00:00 Urine Appearance Cloudy (Clear) A 07/26/23 00:00 Urine pH 5.0 (4.5-7.5) 07/26/23 00:00 Ur Specific [place]app[place] > 1.045 (1.000-1.030) H 07/26/23 00:00 Urine Protein 1+ (Negative) H 07/26/23 00:00 Urine Glucose (UA) Negative (Negative) 07/26/23 00:00 Urine Ketones Trace (Negative) H 07/26/23 00:00 Urine Nitrite Positive (Negative) A 07/26/23 00:00 Ur Leukocyte Esterase 2+ (Negative) H 07/26/23 00:00 Urine WBC (Auto) >30 /hpf (0-5) H 07/26/23 00:00 Urine RBC (Auto) >30 /hpf (0-4) H 07/26/23 00:00 U Hyaline Cast (Auto) 5-10 /lpf (0-5) H 07/26/23 00:00 U Epithel Cells (Auto) 5-10 /lpf (0-5) H 07/26/23 00:00 Urine Bacteria (Auto) 4+ (Negative) H 07/26/23 00:00 Blood Type O Positive 07/25/23 23:04 Antibody Screen NEGATIVE 07/25/23 23:04 07/25/23 19:48 POC Glucose 187 H
--- NOTE | 2023-07-26 01:52 | Operative Report ---
PG Post Operative Report Pre & Post Diagnosis Operation Date: 07/26/23 01:30 Preoperative diagnosis: Urinary tract infection, right ureteral stone Postoperative diagnosis: Urinary tract infection, right ureteral stone I identified the patient and participated in the time-out.: Yes Procedure Operation Date: 07/26/23 01:30 Cystoscopy, right retrograde pyelogram, right ureteral stent placement Surgeon Stu Mahajan MD [employer] None Estimated Blood Loss 0 Findings Consistent with Post-Op Diagnosis Specimens None Drains 6 Panamanian by 24 cm double-J ureteral stent in the right ureter 16 Pan[place]ian Joshi catheter per urethra Anesthesia Type MAC Complications none Disposition Accompanied Patient To Recovery: Yes Disposition: Recovery Room (Recovered in the OR due to COVID precaution) Indications This is a 73-year-old female who presented to the emergency department on 07/25/2023 and was found to have a right ureteral stone and urinalysis suspicious for infection. She is being brought to the OR for right ureteral stent placement for maximal urinary drainage. Description of Procedure The patient was identified in the holding area and informed consent was confirmed. She was marked on the right side, then was taken to the operating room where anesthesia was initiated. She was placed in the dorsal lithotomy position with all pressure points appropriately padded. She was prepped and draped in the usual sterile fashion and a preoperative timeout was performed. A well-lubricated cystoscope was inserted per urethra and panendoscopy was performed. The urethra was normal in appearance. The bladder was of normal size with ureteral orifices in orthotopic position. The right ureteral orifice was identified and cannulated with a 5 Panamanian open-ended catheter. A retrograde pyelogram was performed demonstrating the distal ureter was normal in course and caliber. There was persistent contrast in the right kidney from earlier imaging studies. There was hydronephrosis of the right kidney. A 0.038" ZIPwire was advanced to the level of the kidney under fluoroscopic guidance. Over the wire, a 6 Panamanian x 24 centimeter double-J ureteral stent was advanced. When the wire was removed, the proximal curl was visualized in the kidney with x-ray, and the distal curl visualized in the bladder with the cystoscope. There was drainage of purulent/turbid urine through the stent. All instrumentation was removed. A 16 Pan[place]ian Joshi catheter was placed per urethra and inflated with 10 mL of normal saline. Catheter was attached to gravity drainage. The patient was then awakened from anesthesia and was recovered in the OR due to COVID precautions. I attest to the content of the Intraoperative Record and any orders documented therein. Any exceptions are noted below.
--- NOTE | 2023-07-26 02:19 | Anesthesiology Progress Note ---
Date of Service July 26, 2023 Anesthesia Post Procedure Vital Signs Vital Signs: Temp Pulse Pulse Resp BP BP Pulse Ox 07/26/23 02:06 37 C 118 H 20 94/60 L 95 07/26/23 01:56 36.9 C 116 H 18 87/57 L 98 07/26/23 00:22 36.6 C 07/26/23 00:00 127 H 23 95 07/26/23 00:00 130/71 07/25/23 23:56 123 H 24 96 07/25/23 23:56 110/73 07/25/23 23:51 129 H 07/25/23 23:42 104/70 07/25/23 23:42 129 H 26 H 97 07/25/23 23:31 81/54 L 07/25/23 23:31 127 H 24 94 07/25/23 23:30 127 H 24 97 07/25/23 23:15 103/73 07/25/23 23:15 127 H 24 98 07/25/23 23:00 127 H 23 97 07/25/23 22:31 136 H 21 96 07/25/23 22:02 142 H 27 H 160/86 H 97 07/25/23 22:00 144 H 33 H 07/25/23 21:32 97 07/25/23 21:30 180 H 50 H 101/60 75 L 07/25/23 21:29 181 H 37 H 89 L 07/25/23 20:51 101 H 18 122/67 95 07/25/23 20:45 110 H 22 121/57 L 07/25/23 20:30 103 H 29 H 96 07/25/23 20:15 106 H 22 115/66 07/25/23 20:00 107/60 07/25/23 20:00 107 H 15 113/67 96 07/25/23 19:47 108 H 18 95 07/25/23 19:30 114 H 16 96 07/25/23 19:04 111 H 22 95 07/25/23 19:03 112 H 07/25/23 18:59 36.4 C L 106 H 17 106/59 L 98 O2 Del Method O2 Flow Rate 07/26/23 02:06 Room Air 07/26/23 01:56 Nasal Cannula 4 07/26/23 00:22 07/26/23 00:00 07/26/23 00:00 07/25/23 23:56 07/25/23 23:56 07/25/23 23:51 07/25/23 23:42 07/25/23 23:42 07/25/23 23:31 07/25/23 23:31 07/25/23 23:30 07/25/23 23:15 07/25/23 23:15 07/25/23 23:00 07/25/23 22:31 07/25/23 22:02 07/25/23 22:00 07/25/23 21:32 Nasal Cannula 4 07/25/23 21:30 Room Air 07/25/23 21:29 07/25/23 20:51 07/25/23 20:45 07/25/23 20:30 07/25/23 20:15 07/25/23 20:00 07/25/23 20:00 07/25/23 19:47 07/25/23 19:30 07/25/23 19:04 07/25/23 19:03 07/25/23 18:59 Room Air Transfer of Care Handoff Completed per policy Notes Mental Status: alert / awake / arousable and participated in evaluation Patient Amnestic to Procedure: Yes Nausea / Vomiting: adequately controlled Pain: adequately controlled Airway Patency, RR, SpO2: stable & adequate BP & HR: stable & adequate Hydration State: stable & adequate Anesthetic Complications: no major complications apparent
[2023-07-26] MEDS ORDERED: PHARMACIST DISCHARGE MED REC CONSULT PRN (02:43)
[2023-07-26] MEDS ORDERED: GLUCOSE 40% GEL 15 GM TUBE PO PRN (02:56)
[2023-07-26] MEDS ORDERED: GLUCOSE 10 TAB/TUBE PO PRN (02:56)
[2023-07-26] MEDS ORDERED: GLUCAGON FOR INJ 1 MG VIAL SQ PRN (02:56)
[2023-07-26] MEDS ORDERED: NSS + 20MEQ KCL 20 MEQ/1,000 ML BAG IV ONE (03:00)
[2023-07-26] MEDS: SODIUM CHLORIDE 0.9% 1,000 ML IV ONE (03:12)
[2023-07-26] MEDS ORDERED: STAT IV Infusion **Titration per Protocol STA ×2 (04:07→12:01)
--- NOTE | 2023-07-26 04:11 | Communication Note ---
Date of Service: July 26, 2023 SBP 60s to 70s post op Lactic acid 5.6 from 4.5 after IV Zosyn and 3 L IV fluid. AP Septic shock ICU transfer Levophed
[2023-07-26] MEDS: LACTATED RINGER'S 1,000 ML IV ONE ×2 (04:30→05:38)
[2023-07-26] MEDS ORDERED: LACTATED RINGER'S 1,000 ML IV ONE ×2 (05:00→06:00)
--- NOTE | 2023-07-26 05:06 | Critical Care Consultation ---
Date of Consultation July 26, 2023 Assessment & Plan (1) Septic shock: (2) Hydronephrosis due to obstruction of ureter: (3) Acute kidney injury: (4) HTN (hypertension): (5) Complicated urinary tract infection: (6) Elevated lactic acid level: Plan Reason Critically Ill: 73-year-old female presents to the ICU with septic shock following right ureteral stone with hydronephrosis, status post right ureteral stent. Now hypotensive requiring vasopressor support. Neuro - Encephalopathy: Patient mildly confused initially presented to the emergency department with strokelike symptoms and was evaluated by neurology. Last known well was over [address] head imaging unremarkable. Most likely due to complicated UTI/sepsis. Will treat underlying cause and monitor closely. Cardiac - Shocksecondary to sepsis from urinary source, currently maintaining MAP greater than 65 with Levophed drip. Titrate as tolerated -No previous echo. Will obtain TTE -Random cortisol 59 -Patient received 2 L crystalloid bolus. Now developing some pulmonary congestion. Will hold off on aggressive fluid resuscitation for now in favor of vasopressors -CVL emergently inserted on arrival to the ICU for central venous access -Hold antihypertensives -Trending lactic acid -Continuous monitoring on telemetry Respiratory - Hypoxiano previous history of pulmonary disease. Patient currently maintaining oxygen saturation on 4 L nasal cannula, likely secondary to aggressive resuscitation and developing pulmonary congestion -Will hold on further boluses for now in favor of vasopressors -Hold off on diuresis as patient remains hypotensive -Continuous monitoring pulse ox for now --COPD > [id number] smoking history Currently smoking 1 or 2 cigarettes here and there GI - N.p.o. RENAL/LYTES - AKIcreatinine 1.6 with previous baseline is 0.89. Pre versus post obstructive considering ureteral stone with hydronephrosis versus hypotension -Hold on further fluid bolus given hypoxia. Will continue with Plasma-Lyte at 125 mL/h for fluid resuscitation -Levophed to maintain MAP greater than 65 -Avoid nephrotoxins renally adjust medications -Continue to monitor routine BMPs and replete electrolytes as indicated -Monitor urine output closely - Obstructive ureteral stone/hydronephrosisstatus post right ureteral stent placement via cystoscope. Management per urology Foleystrict I's and O's ENDO - DM type IIhold metformin in favor of sliding scale. ICU hyperglycemic protocol HEME - H&H stable, monitor routine CBC ID - Sepsislikely urinary source considering urinalysis concerning for UTI with +4 bacteria, CT evidence of obstructive ureteral stone with hydronephrosis. -Blood cultures and urine culture pending -Continue cefepime for now LINES/IV ACCESS - Right IJ CVC DVT PROPHYLAXIS - SCDs Supervising Physician Co-Signing Physician Notes I saw and evaluated the patient with NOE Molina, and agree with findings and plan as documented in the note. 73-year-old female who was transferred to the ICU for septic shock post right ureteral stent. Patient has been resuscitated with IV fluids. She was on 0.1 of Levophed at the time of examination with MAP in the mid 60s. She stated that she is feeling better compared to how she was before coming to the ICU. Denies any chest pain, still complains of mild abdominal discomfort. Was nauseous in the morning but did not throw up No dizziness, no palpitation. Constitutional: No acute distress HEENT: EOMI, PERRLA, bluish hue to the tip of the nose as well as left cheek Respiratory system: Decreased air entry bilaterally, no wheeze, no rhonchi, positive crackles bilateral lower lobes CVS: S1-S2 positive, no murmurs or gallops, tachycardia Abdomen: Soft, mild abdominal tenderness in the right flank, no rebound, nondistended, positive bowel sounds x4 Extremities: +2 pulses bilaterally radialis/ dorsalis pedis, no cyanosis, +1 pitting edema bilateral lower extremity Neuro: Awake alert oriented x3 Psych: Normal mood and affect G/U: Positive Joshi --Prophylaxis VTE: IPC GI: Pantoprazole Lines: Right IJ Diet: Clear liquid Plan: In/out: +6 L, urine output 150 mL. New onset thrombocytopenia. Likely from underlying sepsis. Continue to monitor Blood culture is growing gram-negative bacilli. Likely coming from urinary source. Decrease Plasma-Lyte to 75 mill an hour Continue with cefepime. Magnesium, potassium as well as phosphorus being replaced. Will repeat BMP later today. If there is persistently high requirement of Levophed 0.1 or greater then vasopressin will be added. Random cortisol was in the 60s which is appropriate Keep O2 saturation between 90-92% I have personally spent 45 minutes of critical care time in the direct management of this patient. This is a life/limb threatening event. This includes time spent evaluating patient, direct bedside care, chart review, placing orders, interpretation of diagnostic studies, discussion with consultants, patient, and family members, as well as other required patient management activities. This time is exclusive of all separately billable procedures, and teaching time and separate from and in addition to any other critical care service time. Please note the above document was generated using voice recognition software. It may contain grammatical, syntax or spelling errors. History of Present Illness Attending Physician: Juan David Larios MD History of Present Illness Patient is a 73-year-old female with past medical history HTN, DM type II, HLD, who presented to the emergency department after referral from urgent care. Patient was recently diagnosed with COVID 19 about 2 weeks ago with improved symptoms. She was noted to be confused earlier today. She presents to the emergency department with strokelike symptoms and was evaluated by neurology. CT head and CTA head and neck. She underwent CT abdomen which did show 2 x 5 mm kidney stone on the right side resulting and mild right hydronephrosis with stranding suggestive of pyelonephrosis. Patient was also noted to have leukocytosis and had an elevated lactate of 4.5. Patient was evaluated by urology and underwent emergent cystoscope with right ureteral stent placed with Dr. Mahajan. Following procedure she was admitted to PCU. Unfortunately, patient became progressively hypotensive which was unresponsive to fluid resuscitation and she was transferred to the ICU with septic shock requiring vasopressor support. On arrival to the ICU patient is mildly confused but does answer most questions appropriately. Central line was placed at the bedside. Patient currently denies headache, dizziness, syncope, changes in vision, shortness of breath, chest pain or palpitations, abdominal pain, nausea or vomiting, diarrhea, swelling hands or feet. Patient to remain in ICU for further management at this time. Allergies Allergy/AdvReac Type Severity Reaction Status Date / Time No Known Allergies Allergy Verified 07/25/23 19:50 Home Medications Medication Instructions Recorded Confirmed Type lisinopril 10 mg tablet 10 mg PO QAM 11/14/20 07/25/23 History atorvastatin 40 mg tablet 40 mg PO QAM 07/25/23 07/25/23 History calcium carbonate 1,000 mg-vitamin 1 tab PO DAILY 07/25/23 07/25/23 History D3 20 mcg (800 unit) tablet cyanocobalamin (vitamin B-12) 1,000 mcg PO QAM 07/25/23 07/25/23 History 1,000 mcg tablet ibandronate 150 mg tablet 150 mg PO .EVERY 30 DAYS 07/25/23 07/25/23 History metformin 1,000 mg tablet 1,000 mg PO BIDWMEAL 07/25/23 07/25/23 History venlafaxine 150 mg 150 mg PO DAILY 07/25/23 07/25/23 History capsule,extended release 24 hr Patient History Medical History History of COVID-19 History of colon polyps Anxiety HTN (hypertension) Surgical History S/P wrist surgery History of colonoscopy History of hysterectomy History of tonsillectomy Family History Grandmother Family history of diabetes mellitus Family history of colon cancer Grandfather Family history of colon cancer Aunt Family history of colon cancer Uncle Family history of colon cancer Social History Smoking Status: Current some day smoker Tobacco Type: Cigarettes Second Hand Exposure: No; Do You Dip or Chew Tobacco: No; Hx Alcohol Use: No Hx Substance Use: No Preferred Language: [place]ijani Communication Ability: Effective [employer] Required: No Beliefs That Will Affect Care: None Current Living Situation: Family Current Living Situation Comment: Pt's grandsonIlir lives with her Feels Safe at Home: Yes Assistive Devices: None Review of Systems 2 Review of Systems: All systems reviewed & are unremarkable except as noted in HPI & below Physical Exam 2 Constitutional: cooperative and comfortable Eyes: PERRL, conjunctivae normal, anicteric sclerae ENMT: external ear and nose normal, oropharynx normal Neck: trachea midline, no thyromegaly Respiratory: normal respiratory effort, lungs clear to auscultation Cardiovascular: RRR, no murmur, no edema Heart Sounds: normal S1 and normal S2; no murmur Gastrointestinal (Abdomen): normal bowel sounds, soft, nontender, no hepatosplenomegaly Musculoskeletal: no cyanosis or clubbing, extremities motor strength 5/5 Skin: no rashes, warm and dry Neurologic: PERRL, EOMI, accommodation nl, no face palsy, no dysarthria Psychiatric: Orientation: oriented to person and oriented to place; + not oriented to time Genitourinary: Indwelling Joshi catheter present, urine dark and concentrated yellow Results & Data Results & Data Vital Signs (Past 12 Hours) Vital Signs Temp Pulse Pulse Resp BP BP BP 07/26/23 04:57 117 H 19 98/63 L 07/26/23 04:47 07/26/23 04:47 118 H 07/26/23 04:40 116 H 18 90/60 L 07/26/23 04:35 115 H 16 71/47 L 07/26/23 04:30 114 H 20 67/46 L 07/26/23 04:00 07/26/23 03:40 117 H 71/49 L 07/26/23 03:22 115 H 16 70/43 L 67/49 L 07/26/23 02:43 07/26/23 02:19 37 C 119 H 20 89/59 L 07/26/23 02:06 37 C 118 H 20 94/60 L 07/26/23 01:56 36.9 C 116 H 18 87/57 L 07/26/23 00:22 36.6 C 07/26/23 00:00 127 H 23 07/26/23 00:00 130/71 07/25/23 23:56 123 H 24 07/25/23 23:56 110/73 07/25/23 23:51 129 H 07/25/23 23:42 104/70 07/25/23 23:42 129 H 26 H 07/25/23 23:31 81/54 L 07/25/23 23:31 127 H 24 07/25/23 23:30 127 H 24 07/25/23 23:15 103/73 07/25/23 23:15 127 H 24 07/25/23 23:00 127 H 23 07/25/23 22:31 136 H 21 07/25/23 22:02 142 H 27 H 160/86 H 07/25/23 22:00 144 H 33 H 07/25/23 21:32 07/25/23 21:30 180 H 50 H 101/60 07/25/23 21:29 181 H 37 H 07/25/23 20:51 101 H 18 122/67 07/25/23 20:45 110 H 22 121/57 L 07/25/23 20:30 103 H 29 H 07/25/23 20:15 106 H 22 115/66 07/25/23 20:00 107/60 07/25/23 20:00 107 H 15 113/67 07/25/23 19:47 108 H 18 07/25/23 19:30 114 H 16 07/25/23 19:04 111 H 22 07/25/23 19:03 112 H 07/25/23 18:59 36.4 C L 106 H 17 106/59 L Pulse Ox Pulse Ox O2 Del Method O2 Del Method O2 Flow Rate O2 Flow Rate 07/26/23 04:57 95 Nasal Cannula 4 07/26/23 04:47 99 Nasal Cannula 4 07/26/23 04:47 07/26/23 04:40 100 Nasal Cannula 4 07/26/23 04:35 99 Nasal Cannula 4 07/26/23 04:30 97 Nasal Cannula 4 07/26/23 04:00 Nasal Cannula 4 07/26/23 03:40 07/26/23 03:22 97 Nasal Cannula 4 07/26/23 02:43 Room Air 07/26/23 02:19 96 Room Air 07/26/23 02:06 95 Room Air 07/26/23 01:56 98 Nasal Cannula 4 07/26/23 00:22 07/26/23 00:00 95 07/26/23 00:00 07/25/23 23:56 96 07/25/23 23:56 07/25/23 23:51 07/25/23 23:42 07/25/23 23:42 97 07/25/23 23:31 07/25/23 23:31 94 07/25/23 23:30 97 07/25/23 23:15 07/25/23 23:15 98 07/25/23 23:00 97 07/25/23 22:31 96 07/25/23 22:02 97 07/25/23 22:00 07/25/23 21:32 97 Nasal Cannula 4 07/25/23 21:30 75 L Room Air 07/25/23 21:29 89 L 07/25/23 20:51 95 07/25/23 20:45 07/25/23 20:30 96 01/25/24 20:15 07/25/23 20:00 07/25/23 20:00 96 07/25/23 19:47 95 07/25/23 19:30 96 07/25/23 19:04 95 07/25/23 19:03 07/25/23 18:59 98 Room Air Laboratory Results 07/26/23 05:29 07/26/23 05:29 Coding Level of Care Code 48604 CRITICAL CARE 1ST 30-74M Diagnoses Septic shock A41.9; R65.21 Hydronephrosis due to obstruction of ureter N13.1 Acute kidney injury N17.9 HTN (hypertension) I10 Complicated urinary tract infection N39.0 Elevated lactic acid level R79.89
--- NOTE | 2023-07-26 05:06 | Procedure Note ---
Procedure Note Date of Service July 26, 2023 Note INTERNAL JUGULAR CENTRAL LINE PROCEDURE NOTE: Procedure: Internal Jugular Central Line Placement Attending: Dr. Fernandez Provider: NOE Molina Indication: Central Drug Administration, Poor Venous Access, Multiple Lab Draws Necessary, etc. Anesthesia: Lidocaine 1% Line placed emergently in the setting of septic shock A time-out was completed verifying correct patient, procedure, site, positioning, and implants(s) or special equipment if applicable. Patients right neck was cleansed and draped in the typical sterile fashion using Chloraprep. The Internal Jugular Vein and Carotid Artery were identified using ultrasound. The superficial tissue was anesthetized using 3 mL of 1% lidocaine without epinephrine under direct visualization with the ultrasound. After adequate anesthetization was achieved, the Internal Jugular vein was cannulated under direct ultrasound guidance using an introducer needle on a syringe. Good venous blood return was maintained prior to removal of syringe from introducer needle. Using Seldinger Technique, a guide wire was advanced through the introducer needle without resistance. The introducer needle was removed and ultrasound images were obtained of the guide wire within the Internal Jugular Vein. A small incision was made in penetrating fashion at the guide wire insertion site utilizing an 11 blade scalpel. The dilator was advanced to the vessel without resistance. The dilator was exchanged for the triple lumen catheter which was advanced into the vessel without resistance. The guide wire was removed intact from the catheter without issue. Claves were placed on each catheter tip with confirmation of good blood flow from each lumen. Each port was easily flushed with sterile saline. The catheter was placed at 16 cm and sutured in place. BioPatch was applied to the catheter and a sterile Tegaderm dressing was applied over the catheter with careful attention to sterility. Patient tolerated procedure well. No immediate complications were met. Post procedure x-ray was completed, placement was appropriate and no pneumothorax was noted. Coding CPT Codes Tubes, Drains, and Vasc Access - Tubes, Drains, and Vasc Access: [id number] Insertion Of Non-tunneled Catheter Age 5 Yrs> ([id number]) [facility] [place] Procedure Codes (Charges) Tubes, Drains, and Vasc Access Procedure 1: Tubes, Drains, and Vasc Access: [id number] Insertion Of Non-tunneled Catheter Age 5 Yrs>
[2023-07-26] MEDS: PANTOprazole 80 MG in DEXTROSE 5% 100 ML IV STA (05:17)
[2023-07-26] MEDS: NOREPINEPHRINE/D5W 4 MG/250 ML PLCT IV SCH (05:22)
--- OUTSIDE RECORDS SUMMARY | 2023-07-26 05:28 | External Medical Summary | Summary of Care ---
Author Name Unknown Organization [facility] Address [address] [facility] [place] [address] Phone [phone] Care Team Providers Care Licensing Representative Name Role Phone Sulema Coughlin MD Primary Care Provide r Reason for Visit * Reason Onset Date Comments Health Maintenance 03/07/2023 Encounter Details Date Type Department Care Team (Late st Contact Info) Description 03/07/2023 Telephone Family Medicine [address] [phone] Sulema Coughlin MD [address] [place] [address] [place] [address] Health Maintenance Allergies No known active allergiesdocumented as of this encounter (statuses as of 06/06/2023) Medications Medication Sig Dispensed Refills Start Date End Date Status Calcium Carb-Cholecalciferol 1000-800 MG-UNIT Oral Tablet One daily 0 Active Misc Natural Products (LUTEIN VISION BLEND) CAPS One daily 0 Active Cyanocobalamin 1000 MCG Oral Tablet (Cyanocobalamin) Take 1 Tablet by mouth in the morning. 0 03/30/2022 Active Venlafaxine HCl ER 150 MG Oral Capsule Extended Release 24 Hour (Effexor XR)Indications:Anxiet y TAKE 1 CAPSULE BY MOUTH EVERY DAY 90 Capsule 3 01/19/2023 Active Ibandronate Sodium 150 MG Oral Tablet (Boniva)Indications:O steoporosis, unspecified osteoporosis type, unspecified pathological fracture presence TAKE BY MOUTH 1 TABLET EVERY 30 DAYS . 3 Tablet 2 02/13/2023 Active documented as of this encounter (statuses as of 06/06/2023) Active Problems Problem Noted Date Diagnosed Date B12 deficiency 03/30/2022 No history of diabetic retinopathy in past year 03/30/2022 Overview: 03/2022 Age-related osteoporosis wit hout current pathological fracture 03/30/2022 Overweight (BMI 25.0-29.9) 06/21/2021 Dyslipidemia, goal LDL below 100 06/21/2021 Type 2 diabetes mellitus wit h hemoglobin A1c goal of less than 7.5% 04/26/2021 Hx of nonmelanoma skin cancer 03/15/2020 Overview: basal cell carcinoma (R pretibial region 03/2020) Adrenal nodule 08/04/2019 History of colon polyps 12/15/2018 History of hepatitis C 05/27/2017 Rosacea 01/20/2016 HTN, goal below 130/80 07/14/2015 Anxiety 01/11/2015 Allergic rhinitis 05/12/2013 History of tobacco use 04/24/2004 documented as of this encounter (statuses as of 06/06/2023) Resolved Problems Problem Noted Date Diagnosed Date Resolved Date Type 2 diabetes mellitus wit h diabetic polyneuropathy 10/01/2022 10/01/2022 Pelvic mass 02/12/2019 02/18/2020 Serous cystadenoma 02/12/2019 0 Prediabetes 07/14/2018 05/09/2021 Overview: Per Prediabetes protocol #1 Chronic hepatitis C without hepatic coma 05/27/2017 05/27/2017 Tobacco use disorder 01/20/2016 018 Acute sinusitis 05/17/2010 01/20/2016 Benign neoplasm of colon 07/25/2007 Overview: 3 mm polyp in descending colon, 5 mm sigmoid polyp Benign neoplasm of colon 07/25/2007 Overview: 3 mm polyp in descending colon, 5 mm sigmoid polyp hyperplastic repeat colonoscopy in 3 yrs Postmenopausal status, age-related 05/14/2006 01/11/2015 Other osteoporosis without c urrent pathological fracture 04/24/2004 01/20/2016 Overview: ICD-10 update of inactive term Other osteoporosis without c urrent pathological fracture 10/05/2003 07/31/2006 Overview: ICD-10 update of inactive term Impaired fasting glucose Radius and ulna distal fracture 01/20/2016 documented as of this encounter (statuses as of 06/06/2023) Immunizations Name Administration Dates Next Due COVID-19 mRNA, LNP-s, No Pre serve, 2-Dose Series (Moderna) 09/14/2020,08/19/2020 COVID-19, mRNA, LNP-s, PF, B ooster, 100mcg/0.5mg (Moderna) 10/24/2021,05/09/2021 Covid-19, Mrna, Lnp-s, Pf, B ivalent, 30 Mcg, IM, 12 yrs and above ([employer]) 04/03/2022 HEP A - Hepatitis A (Adult > 18 yrs) 07/08/2018, 05/27/2017 Hepatitis B, 20+ yrs 06/19/2018,07/02/2017,05/31 Pneumococcal Conjugate Vacc, 13 Valent (Prevnar) 01/20/2016 Pneumococcal Polysaccharide PPV23 (Pneumovax) 05/27/2017 SEASONAL INFLUENZA, PF, 6 M & Above, IM , (FLULAVAL or FLUZONE) 03/11/2019,06/19/2018,05/06/2017 Seasonal Influenza, Quadriva lent Hd (Fluzone Hd) 03/30/2022,05/09/2021 Seasonal Influenza, Quadriva lent Hd, 65+ Yrs 04/20/2020 Seasonal Influenza, Quadriva lent, No Preserve, IM 07/24/2016,05/17/2015 Seasonal Influenza, Split, I IV3, With Preserve, Inj 04/05/2014,03/31/2013,03/12/2012 TDAP (age 10 and older)(Boostrix) 05/12/2013 Varicella Zoster Vaccine (Adult) 06/29/2015 documented as of this encounter Social History Tobacco Use Types Packs/Day Years Used Date Smoking Tobacco: Former Cigarettes 0.3 30 Q uit: 08/01/2021 Smokeless Tobacco: Never Comments:<1/4 ppd Alcohol Use Standard Drinks/Week Comments Yes 1 (1 standard drink = 0.6 oz pur e alcohol) a few beers weekly PHQ-2 Answer Date Recorded PHQ Adult Total Score 0 10/19/2021 Hunger Vital Sign Answer Date Recorded Worried About Running Out of Food in the Last Ye ar Never true 03/11/2019 Ran Out of Food in the Last Year Never true 03/11/2019 Sex and Gender Information Value Date Recorded Sex Assigned at Female 10/06/2020 12:43 PM EDT Gender Identity Female 10/08/2018 10:32 AM EDT Sexual Orientation Straight 10/06/2020 12 :43 PM EDT Job Start Date Occupation Industry Not on file Not on file Not on file documented as of this encounter Functional Status Functional Status Response Date of Assess ment Are you deaf or do you have serious difficulty h earing? No 02/10/2019 Are you blind or do you have serious difficulty seeing, even when wearing glasses? No 02/10/2019 Do you have serious difficul ty walking or climbing stairs? (5 years old or older) No 02/10/2019 Do you have difficulty dress ing or bathing? (5 years old or older) No 02/10/2019 Because of a physical, menta l, or emotional condition, do you have difficulty doing errands alone such as visiting a doctor s office or shopping? (15 years old or older) No 02/11/20 19 Cognitive Status Response Date of Assessm ent Because of a physical, menta l, or emotional condition, do you have serious difficulty concentrating, remembering, or making decisions? (5 years old or older) No 02/10/2019 documented as of this encounter Miscellaneous Notes * Telephone Encounter - Sulema Coughlin MD - 03/07/2023 2:02 PM EDT Signed * Telephone Encounter - Lis Catherine LPN - 03/07/2023 1:31 PM EDT Care Gaps Comprehensive Care Outreach Last Office/Telemedicine Visit: 10/01/2022 (in office), Visit date not found (telemedicine) Next Office Visit: 04/02/2023 Hemoglobin AIC Results: Lab Results Component Value Date/Time HEMOGLOBIN A1C - [facility] 6.9 (H) 10/01/2022 02:18 PM HEMOGLOBIN A1C - [facility] 6.8 (H) 03/26/2022 08:06 AM HEMOGLOBIN A1C - [facility] 7.3 (H) 09/26/2021 08:07 AM HEMOGLOBIN A1C - [facility] 6.6 (H) 02/18/2020 02:13 PM HEMOGLOBIN A1C - [facility] 6.1 (H) 12/23/2018 08:40 AM HEMOGLOBIN A1C - [facility] 6.0 (H) 06/13/2018 07:52 AM Reviewed Health Maintenance below: Health Maintenance Topic Date Due Zoster Vaccines (2 of 3) 08/24/2015 Depression Screening, Annual for Pts 12 and Over 10/19/2022 DIABETES-EYE EXAM 02/26/2023 Influenza Vaccine (FLU shot) (1) 03/01/2023 COLONOSCOPY-EVERY 3 YRS AGES 18-100 03/02/2023 Albumin/Creatinine Ratio 03/26/2023 Diabetic Foot Exam 03/30/2023 HbA1c 04/02/2023 DTaP,Tdap,and Td Vaccines (2 - Td or Tdap) 05/12/2023 Eye fozard requested Colon Patient wants to wait until spring. Schedule not out yet Urine/labs add lipid added Care Gap Outreach Action Taken: Spoke to patient Labs ordered. I pended her lipid panel. Last done 03/22. Please review and sign if appropriate. documented in this encounter Plan of Treatment Upcoming Encounters Date Type Department Care Team (Latest Contact Info) Description 08/14/2023 9:30 AM EST Hospital Encounter [facility]O [facility], Endoscopy Room [facility] [address] [place] [phone] Angelic Aggarwal, [address] [place] [address] 08/14/2023 9:30 AM EST - 08/14/2023 10:00 AM EST Surgery ENDO [facility], Endoscopy Room [facility] [address] [place] [phone] Angelic Aggarwal, [address] [place] [address] COLONOSCOPY FLEXIBLE PROXIMAL DIAGNOSTIC 09/12/2023 11:00 AM EDT Imaging Radiology [address] [place] [address] 10/07/2023 11:40 AM EDT Office Visit Family Medicine [address] [place] [phone] Sulema Coughlin MD [address] [place] [address] [place] [address] 01/14/2024 2:40 PM EDT Office Visit Dermatology [address] [place] [address] Bernadette Ruiz PA-C [address] [place] [address] [place] [id number] Scheduled Procedures Name Priority Associated Diagnoses Date/Ti me COLONOSCOPY FLEXIBLE PROXIMAL DIAGNOSTIC History of colon polyps 08/14/2023 9:30 AM EST Health Maintenance Due Date Last Done Comments Zoster Vaccines (2 of 3) 08/24/2015 06/29/2015 Depression Screening 10/19/2022 10/19/2021 COLONOSCOPY-EVERY 3 YRS AGES 18-100 03/02/2023 03/02/2020, 03/02/2020, 10/12/2014, Additional history exists DTaP,Tdap,and Td Vaccines (2 - Td or Tdap) 05/12/2023 05/12/2013 Mammogram 09/11/2023 09/10/2022, 08/29, 09/07/2021, Additional history exists HbA1c 10/02/2023 04/02/2023, 08/2022, 03/26/2022, Additional history exists DXA Scan 02/07/2024 02/06/2022, 03/2022, 02/17/2018, Additional history exists Diabetic Eye Exam 03/01/2024 03/01/2023, , 02/26/2022, Additional history exists Albumin/Creatinine Ratio 04/02/2024 023, 03/26/2022, 05/09/2021, Additional history exists Diabetic Foot Exam 04/02/2024 04/02/2023, 0 03/30/2022, 06/21/2021 GFR 04/02/2024 04/02/2023, 04/0 08/2022, 03/26/2022, Additional history exists Lipid Panel 04/02/2028 04/02/2023, 03/02, 04/26/2021, Additional history exists VITAMIN D LEVEL ONCE IN A LIFETIME-USE SMARTSET# [id number] Completed 08/31/2016, 03/12/2012 Pneumococcal Vaccine: 65+ Years Completed 05/27/2017, 01/20/2016 Hepatitis B Completed 06/19/2018, 08/2017, 05/31/2017 COLONOSCOPY-EVERY 5 YRS AGES 18-100 Discontinued 03/02/2020, 03/02/2020, 10/12/2014, Additional history exists COVID-19 Vaccine Completed 04/02/2023, 09/2021, 10/24/2021, Additional history exists Influenza Vaccine (FLU shot) Completed 04/02/2023, 03/30/2022, 05/09/2021, Additional history exists GARDASIL-HPV IMMUNIZATION SERIES Aged Out No longer eligible based on patient's age to complete this topic MENINGOCOCCAL (MENACTRA/MENVEO) Aged Out No longer eligible based on patient's age to complete this topic documented as of this encounter Medical Devices Implanted Type Area Buttonholer Device Identifier Shelf Expiration Date Model / Serial / Lot Lens Intraoc 21.0 - [id number] - [id number] Implanted:Qty: 1 on 04/20/2019 by Rayshawn Monaco MD at [facility] Left: Eye [employer] 11/29/2023 [id number] / [id number] / [id number] Lens Intraoc 21.0 - [id number] - [id number] Implanted:Qty: 1 on 04/28/2019 by Rayshawn Monaco MD at OR [facility] Right: Eye [employer]OM[employer] 11/29/2023 [id number] / [id number] / [id number] documented as of this encounter Results * (ABNORMAL) COMPREHENSIVE METABOLIC PANEL (04/02/2023 10:32 AM EDT) BUN 15 6 - 20 mg/dL 04/03/2023 12:30 AM EDT [facility] Creatinine 0.7 0.5 - 1.0 mg/dL 04/03/2023 12:30 AM EDT [facility] Estimated Glomerular Filtration Rate 86 >=60 mL/min 04/03/2023 12:30 AM EDT [facility] Comment:eGFR is calculated b ased on the CKD-EPI 2020 equation Sodium 141 135 - 146 mmol/L 04/03/2023 12:30 AM EDT [facility] Potassium 4.9 3.5 - 5.1 mmol/L 04/03/2023 12:30 AM EDT [facility] Chloride 104 98 - 107 mmol/L 04/03/2023 12:30 AM EDT [facility] CO2 26 22 - 32 mmol/L 04/03/2023 12:30 AM EDT [facility] Anion Gap 11 7 - 15 mmol/L 04/03/2023 12:30 AM EDT [facility] Glucose 137(H) 70 - 120 mg/dL 04/03/2023 12:30 AM EDT [facility] Albumin 4.2 3.8 - 5.0 g/dL 04/03/2023 12:30 AM EDT [facility] AST 16 10 - 35 U/L 04/03/2023 12:30 AM EDT [facility] Alkaline Phosphatase 63 35 - 130 U/L 04/03/2023 12:30 AM EDT [facility] Bilirubin, Total 0.5 <=1.2 mg/dL 04/03/2023 12:30 AM EDT [facility] Calcium 9.3 8.4 - 10.2 mg/dL 04/03/2023 12:30 AM EDT [facility] Protein 6.4 6.0 - 8.3 g/dL 04/03/2023 12:30 AM EDT [facility] ALT 21 10 - 35 U/L 04/03/2023 12:30 AM EDT LABORATORY [facility] Blood Venous blood specimen / Unknown Venipuncture / Unknown 04/02/2023 10:32 AM EDT 04/02/2023 10:32 AM EDT Sulema Coughlin MD LAB BLOOD ORD ERABLES Performing Organization Address City/[facility]/ZIP Co de Phone Number LABORATORY [facility] [address] [place] [address] * (ABNORMAL) LIPID PANEL WITH DIRECT LDL IF TG IS HIGH (04/02/2023 10:32 AM EDT) Triglycerides 174 <=174 mg/dL 04/03/2023 12:30 AM EDT LAB[facility]ORY [facility] Comment: Triglyceride Reference Ranges (mg/dL): <150 Acceptable 150-174 Borderline high 175-499 High >=500 Very high Cholesterol 126 <200 mg/dL 04/03/2023 12:30 AM EDT LAB[facility]ORY [facility] Comment: Total Cholesterol Reference Ranges (mg/dL): <200 Desirable 200-239 Borderline high >=240 High HDL Cholesterol 38(L) >49 mg/dL 12:30 AM EDT LAB[facility]ATORY [facility] Comment: HDL Cholesterol Reference Ranges (mg/dL): >=60 High (Desirable) <50 Low (Undesirable) For Females <40 Low (Undesirable) For Males Non-HDL Cholesterol 88 <=159 mg/dL 04/03/2023 12:30 AM EDT LAB[facility]ORY [facility] Comment: Non-HDL Cholesterol Reference Range (mg/dL): <100 Target level for high risk ASCVD patient <130 Optimal for general population 130-159 Near optimal for general population 160-189 Borderline High 190-219 High >=220 Very High Blood Venous blood specimen / Unknown Venipuncture / Unknown 04/02/2023 10:32 AM EDT 04/02/2023 10:32 AM EDT Sulema Coughlin MD LAB BLOOD ORD ERABLES Performing Organization Address City/[facility]/ZIP Co de Phone Number LABORATORY [facility] [address] [place] [address] * (ABNORMAL) ALBUMIN / CREATININE RATIO, URINE (04/02/2023 10:32 AM EDT) Albumin, Random Urine 4.70 mg/dL 04/02/2023 10:13 PM EDT LAB[facility]ORY [facility] Creatinine, Random Urine 151 mg/dL 04/02/2023 10:13 PM EDT LAB[facility]ORY [facility] Albumin / Creatinine Ratio, Urine 31(H) <30 mg/g Creat 04/02/2023 10:13 PM EDT LAB[facility]ORY [facility] Urine Urine specimen obtained by clean catch procedure / Unknown Non-blood Collection / Unknown 04/02/2023 10:32 AM EDT 04/02/2023 10:32 AM EDT Narrative LAB[facility]ATORY [facility] - 04/02/2023 10:13 PM EDT Normal: <30 mg/g creatinine High: 30-300 mg/g creatinine Very High: >300 mg/g creatinine Nephrotic: >2200 mg/g creatinine Sulema Coughlin MD LAB URINE ORD ERABLES Performing Organization Address City/[facility] Co de Phone Number LABORATORY [facility] [address] [place] [address] * (ABNORMAL) HEMOGLOBIN A1C (04/02/2023 10:32 AM EDT) Hemoglobin A1C 7.1(H) 4.0 - 5.6 % 04/03/2023 12:34 AM EDT LABORATORY [facility] Comment:The use of HbA1c to monitor glycemic status is based on normal hemoglobin and HbA composition. This test should not be used in patients with abnormal hemoglobin that affects the half life of the red blood cell or the in vivo glycation rates. Estimated Average Glucose 157(H) <126 mg/dL 04/03/2023 12:34 AM EDT LAB[facility]ATORY [facility] Blood Venous blood specimen / Unknown Venipuncture / Unknown 04/02/2023 10:32 AM EDT 04/02/2023 10:32 AM EDT Sulema Coughlin MD LAB BLOOD ORD ERABLES LAB[facility]ATORY [facility] [address] [facility] [place] [address] documented in this encounter Visit Diagnoses Diagnosis Diabetes mellitus screening- Primary Screening for diabetes mellitus Screening for nephropathy Type 2 diabetes mellitus with hemoglobin A1c goal of less than 7.0% (HCC) Dyslipidemia, goal LDL below 100 Other and unspecified hyperlipidemia History of colon polyps Personal history of colonic polyps documented in this encounter Advance Directives Latest Code Status on File Code Status Date Activated Date Inactivated Comments Full Code 02/10/2019 10:51 AM 02/12/2019 1:41 PM This order reflects the patients wishes and were consensually agreed upon. Care Teams Licensing Representative Relationship Specialty Start Date End Date Sulema Coughlin MD [address] [place] [address] [place] [id number] PCP - General Family Medicine 03/28/11 documented as of this encounter
--- OUTSIDE RECORDS SUMMARY | 2023-07-26 05:29 | External Medical Summary | Summary of Care ---
Author Name Unknown Organization [facility] [address] [facility] [address] Phone [phone] Care Team Providers Care Plisse Machine Operator Name Role Phone Sulema Coughlin MD Primary Care Provide r Encounter Details Date Type Department Care Team Description 04/02/2023 Immunization Ancillary [place] [place] [address] [place], Covid19 Vaccine [address] [place] [address] Arrived Allergies No known active allergiesdocumented as of this encounter (statuses as of 04/02/2023) Medications Medication Sig Dispensed Refills Start Date End Date Status Calcium Carb-Cholecalcifer ol 1000-800 MG-UNIT Oral Tablet One daily 0 Active Misc Natural Products (LUTEIN VISION BLEND) CAPS One daily 0 Active Cyanocobalamin 1000 MCG Oral Tablet (Cyanocobalamin) Take 1 Tablet by mouth in the morning. 0 03/30/2022 Active Venlafaxine HCl ER 150 MG Oral Capsule Extended Release 24 Hour (Effexor XR)Indications:Anx iety TAKE 1 CAPSULE BY MOUTH EVERY DAY 90 Capsule 3 01/19/2023 Active Ibandronate Sodium 150 MG Oral Tablet (Boniva)Indication s:Osteoporosis, unspecified osteoporosis type, unspecified pathological fracture presence TAKE BY MOUTH 1 TABLET EVERY 30 DAYS . 3 Tablet 2 02/13/2023 Active Lisinopril 10 MG Oral Tablet (Prinivil) TAKE 1 TABLET BY MOUTH EVERY DAY 90 Tablet 3 04/26/2022 04/02/2023 Discontinued (Refill) Atorvastatin Calcium 40 MG Oral Tablet (Lipitor)Indicatio ns:Hyperlipidemia with target LDL less than 100 TAKE 1 TABLET BY MOUTH EVERY DAY 90 Tablet 3 04/26/2022 04/02/2023 Discontinued (Refill) metFORMIN HCl 1000 MG Oral Tablet (Glucophage)Indica tions:Type 2 diabetes mellitus with hemoglobin A1c goal of less than 7.0% (HCC) TAKE 1 TABLET BY MOUTH TWICE A DAY WITH MORNING AND EVENING MEAL 180 Tablet 0 03/29/2023 04/02/2023 Discontinued (Refill) documented as of this encounter (statuses as of 04/02/2023) Active Problems Problem Noted Date B12 deficiency 03/30/2022 No history of diabetic retinopathy in or st year 03/30/2022 Overview: 03/2022 Age-related osteoporosis without current pathological fracture 03/30/2022 Overweight (BMI 25.0-29.9) 06/21/2021 Dyslipidemia, goal LDL below 100 021 Type 2 diabetes mellitus with hemoglobin A1c goal of less than 7.5% 04/26/2021 Hx of nonmelanoma skin cancer 03/15/2020 Overview: basal cell carcinoma (R pretibial region 03/2020) Adrenal nodule 08/04/2019 History of colon polyps 12/15/2018 History of hepatitis C 05/27/2017 Rosacea 01/20/2016 HTN, goal below 130/80 07/14/2015 Anxiety 01/11/2015 Allergic rhinitis 05/12/2013 History of tobacco use 04/24/2004 documented as of this encounter (statuses as of 04/02/2023) Resolved Problems Problem Noted Date Resolved Date Type 2 diabetes mellitus with diabetic polyneuro tisha 10/01/2022 10/01/2022 Pelvic mass 02/12/2019 02/18/2020 Serous cystadenoma 02/12/2019 02/18/2020 Prediabetes 07/14/2018 05/09/2021 Overview: Per Prediabetes protocol #1 Chronic hepatitis C without hepatic coma 017 05/27/2017 Tobacco use disorder 01/20/2016 11/26/2017 Acute sinusitis 05/17/2010 01/20/2016 Benign neoplasm of colon 07/25/2007 016 Overview: 3 mm polyp in descending colon, 5 mm sigmoid polyp Benign neoplasm of colon 07/25/2007 019 Overview: 3 mm polyp in descending colon, 5 mm sigmoid polyp hyperplastic repeat colonoscopy in 3 yrs Postmenopausal status, age-related 05/14/2006 01/11/2015 Other osteoporosis without current pathological fracture 04/24/2004 01/20/2016 Overview: ICD-10 update of inactive term Other osteoporosis without current pathological fracture 10/05/2003 07/31/2006 Overview: ICD-10 update of inactive term Impaired fasting glucose 019 Radius and ulna distal fracture 01/20/2016 documented as of this encounter (statuses as of 04/02/2023) Immunizations Name Administration Dates Next Due COVID-19 mRNA, LNP-s, No Pre serve, 2-Dose Series (Moderna) 09/14/2020,08/19/2020 COVID-19, MRNA-LNP, PF, 30 M CG/0.3 mL, 12 yrs and above, IM (Pfizer) 04/02/2023 COVID-19, mRNA, LNP-s, PF, B ooster, 100mcg/0.5mg (Moderna) 10/24/2021,05/09/2021 Covid-19, Mrna, Lnp-s, Pf, B ivalent, 30 Mcg, IM, 12 yrs and above (Pfizer) 04/03/2022 HEP A - Hepatitis A (Adult > 18 yrs) 07/08/2018, 05/27/2017 Hepatitis B, 20+ yrs 06/19/2018,07/02/2017,05/31 Pneumococcal Conjugate Vacc, 13 Valent (Prevnar) 01/20/2016 Pneumococcal Polysaccharide PPV23 (Pneumovax) 05/27/2017 SEASONAL INFLUENZA, PF, 6 M & Above, IM , (FLULAVAL or FLUZONE) 03/11/2019,06/19/2018,05/06/2017 Seasonal Influenza, Quadriva lent Hd (Fluzone Hd) 04/02/2023,03/30/2022,05/09/2021 Seasonal Influenza, Quadriva lent Hd, 65+ Yrs [...] pur e alcohol) a few beers weekly Food Insecurity Answer Date Recorded Within the past 12 months, y ou worried that your food would run out before you got money to buy more. Never true 03/11/2019 Within the past 12 months, t he food you bought just didn't last and you didn't have money to get more. Never true 03/11/2019 Sex Assigned at Date Recorded Female 10/06/2020 12:43 PM EDT Job Start Date Occupation Industry [...] or making decisions? (5 years old or older No 02/10/2019 documented as of this encounter Plan of Treatment Upcoming Encounters Date Type Specialty Care Team Description 09/12/2023 Imaging Radiology 10/07/2023 Office Visit Family Medicine Sulema Coughlin MD [address] [place] [address] [place] [id number] Scheduled Procedures Name Priority Associated Diagnoses Date/Ti me COLONOSCOPY FLEXIBLE PROXIMAL DIAGNOSTIC Recall History of colon polyps Health Maintenance Due Date Last Done Comments Zoster Vaccines (2 of 3) 08/24/2015 06/29/2015 Depression Screening 10/19/2022 10/19/2021 DIABETES-EYE EXAM 02/26/2023 02/26/2022, 05/12/2021 COLONOSCOPY-EVERY 3 YRS AGES 18-100 03/02/2023 03/02/2020, 03/02/2020, 10/12/2014, Additional history exists Albumin/Creatinine Ratio 03/26/2023 022, 05/09/2021, 08/31/2016 Diabetic Foot Exam 03/30/2023 03/30/2022, 06/21/2021 HbA1c 04/02/2023 10/01/2022, 03/02, 09/26/2021, Additional history exists DTaP,Tdap,and Td Vaccines (2 - Td or Tdap) 05/12/2023 05/12/2013 Mammogram 09/11/2023 09/10/2022, 08/29, 07/22/2020, Additional history exists GFR 10/02/2023 10/01/2022, 03/02, 11/10/2021, Additional history exists DXA Scan 02/07/2024 02/06/2022, 01/30, 09/30/2014, Additional history exists Lipid Panel 03/26/2027 03/26/2022, 04/01, 08/31/2020, Additional history exists VITAMIN D LEVEL ONCE IN A LIFETIME-USE SMARTSET# [id number] Completed 08/31/2016, 03/12/2012 Pneumococcal Vaccine: 65+ Years [...] this encounter Medical Devices Implanted Type Area Drosophere Operator Device Identifier Shelf Expiration Date Model / Serial / Lot Lens Intraoc 21.0 - [id number] - [id number] Implanted:Qty: 1 on 04/20/2019 by Rayshawn Monaco MD at OR [facility] Left: Eye [employer] 11/29/2023 [id number] / [id number] / [id number] Lens Intraoc 21.0 - [id number] - [id number] Implanted:Qty: 1 on 04/28/2019 by Rayshawn Monaco MD at OR [facility] Right: Eye [employer]OM[employer] 11/29/2023 [id number] / [id number] / [id number] documented as of this encounter Advance Directives Latest Code Status on File Code Status Date Activated Date Inactivated Comments Full Code 02/10/2019 10:51 AM 02/12/2019 1:41 PM This order reflects the patients wishes and were consensually agreed upon. Care Teams Plisse Machine Operator Relationship Specialty Start Date End Date Sulema Coughlin MD [address] [place] [address] [place] [id number] PCP - General Family Medicine 03/28/11 documented as of this encounter
--- OUTSIDE RECORDS SUMMARY | 2023-07-26 05:29 | External Medical Summary | Summary of Care ---
Author Name Unknown Organization [facility] Address [address] [place] [address] Phone [phone] Care Team Providers Care Cone Examiner Name Role Phone Sulema Coughlin MD Primary Care Provide r Reason for Referral * Ancillary Services (Within 30 days (routine)) - Authorized Specialty Diagnoses / Procedures Referred By Contac t Referred To Contact Gastroenterology Diagnoses History of colon polyps Tubular adenoma Kirstin Hightower PA-C [address] [place] [address] JIHAN Contreras [id number] Referral ID Status Reason Start Date Expiration Date Visits Requested Visits Authorized [id number] Authorized Ancillary Services Required 04/02/[phone] Question Answer Referral Priority Within 30 days (routine) Comments ALERT: Do not order for pediatric patients (18 years or younger). Cancel off screen and order PEDS GASTROENTEROLOGY CONSULT (Type: 1 visit only-Evaluate and Treat) The following Pt. Instructions are available: - Gastro Colonoscopy Prep Instructions [[id number]] - Gastro Colonoscopy Prep Instructions (Latvian Version) [[id number]] Go to the Pt. Instructions section within the Visit Navigator to access. Colonoscopy ASGE Guidelines: Postadenoma resection: 3-10 adenomas or adenoma with villous features, greater than or equal 1 cm, or with high-grade dysplasia (3 yr intervals) ADDITIONAL INFORMATION 1. Is the patient on Coumadin? No 2. Is the patient on Pradaxa? No Reason for Visit * Reason Onset Date Comments Re-Check Medication Administration 04/02/2023 Flu an d/or Pneumo Inj Encounter Details Date Type Department Care Team Description 04/02/2023 Office Visit Family Medicine [address] [place] [address] Kirstin Hightower PA-C [address] [place] [address] JIHAN Contreras [phone] Type 2 diabetes mellitus with hemoglobin A1c goal of less than 7.0% ([facility])*; Need for prophylactic vaccination and inoculation against influenza; Hyperlipidemia with target LDL less than 100; Yeast infection; History of colon polyps; Tubular adenoma; DM type 2 nursing care encounter (HCC) Allergies No known active allergiesdocumented as of [...] DAYS . 3 Tablet 2 02/13/2023 Active Atorvastatin Calcium 40 MG Oral Tablet (Lipitor)Indicatio ns:Hyperlipidemia with target LDL less than 100 Take 1 Tablet by mouth in the morning. 90 Tablet 3 04/02/2023 Active Lisinopril 10 MG Oral Tablet (Prinivil) Take 1 Tablet by mouth in the morning. 90 Tablet 3 04/02/2023 Active Fluconazole 150 MG Oral Tablet (Diflucan)Indicati ons:Yeast infection Take 1 Tablet by mouth once for 1 dose. 1 Tablet 0 04/02/2023 04/02/2023 Active metFORMIN HCl 1000 MG Oral Tablet (Glucophage)Indica tions:Type 2 diabetes mellitus with hemoglobin A1c goal of less than 7.0% ([facility]) TAKE 1 TABLET BY MOUTH TWICE A DAY WITH MORNING AND EVENING MEAL 180 Tablet 3 04/02/2023 Active Lisinopril 10 MG Oral Tablet (Prinivil) [...] 03/30/2022 No history of diabetic retinopathy in [place] st year 03/30/2022 Overview: 03/2022 Age-related osteoporosis [...] Type 2 diabetes mellitus with diabetic polyneuro tsiha 10/01/2022 10/01/2022 Pelvic mass 02/12/2019 02/18/2020 Serous [...] CG/0.3 mL, 12 yrs and above, IM ([employer]) 04/02/2023 COVID-19, mRNA, LNP-s, PF, B ooster, 100mcg/0.5mg (Moderna) 10/24/2021,05/09/2021 Covid-19, Mrna, Lnp-s, Pf, B ivalent, 30 Mcg, IM, 12 yrs and above ([employer]) 04/03/2022 HEP A - Hepatitis A (Adult [...] on file documented as of this encounter Last Filed Vital Signs Vital Sign Reading Time Taken Comments Blood Pressure 136/92 04/02/2023 11:21 AM EDT Pulse 92 04/02/2023 11:21 AM EDT Temperature 35.2 C (95.3 F) 04/02/2023 11:21 AM E DT Respiratory Rate - - Oxygen Saturation 92% 04/02/2023 11:21 AM EDT Inhaled Oxygen Concentration - - Weight 78.7 kg (173 lb 6.4 oz) 04/02/2023 11:21 AM EDT Height - - Body Mass Index 27.99 10/01/2022 1:55 PM EDT documented in this encounter Functional Status Functional Status Response [...] No 02/10/2019 documented as of this encounter Patient Instructions * Patient Instructions* Andressa Gonzalez, MILK HOUSE WORKER - 04/02/2023 11:57 AM EDT Diabetes: Keeping Feet Healthy Inspect your feet every day for signs of a problem. Diabetes can damage nerves in your feet and cause neuropathy. This condition makes it hard for you to feel injuries or sore spots. Diabetes can also change blood flow, making it harder for small problems, like a blister, to heal properly. In fact, minor injuries can quickly become serious infections that send you to the hospital. Practice self-care to protect your feet and keep them healthy. Take Special Care Inspect your feet daily for problems such as redness, blisters, cracks, dry skin, or numbness. Use a mirror to see the bottoms of your feet. Or, ask for help. Manage your diabetes. Monitor and control your blood sugar. Take all your medications as prescribed. Avoid walking barefoot, even indoors. Wash your feet with warm water and mild soap. Dry well, especially between toes. Dont treat corns or calluses yourself. Talk to your doctor or metal wire coating operator (a doctor who specializes in foot care) if you need assistance trimming your toenails. Use moisturizing cream or lotion if you have dry skin, but dont use it between toes. Dont use heating pads on your feet. If you have neuropathy, you could get a burn and not feel it. Stop smoking. Smoking restricts blood flow and can make it harder for wounds to heal. Have Regular Checkups Foot problems can develop quickly. So be sure to follow your healthcare teams schedule for regular checkups. During office visits, take off your shoes and socks as soon as you get in the exam room. Ask your healthcare provider to examine your feet for problems. This will make it easier to find and treat small skin irritations before they get worse. Regular checkups can also help keep track of the blood flow and feeling in your feet. If you have neuropathy, you may need to have checkups more often. Wear Proper Footwear Wearing proper footwear is very important. If areas of your feet have been damaged by too much pressure, your healthcare provider may recommend changing your footwear. In some cases, avoiding high heels or tight work boots may be all thats needed. Or, your healthcare provider may recommend special shoes or custom inserts. These help protect your feet and keep existing irritations from getting worse. If you need special footwear, ask your healthcare provider if you qualify for [employer] diabetic shoe program. Make Sure Shoes and Socks Fit Any pair of shoes--new or old--should feel comfortable as soon as you put them on. There shouldnt be any rubbing when you walk. Wear the right shoe for any activity. For instance, a running shoe is designed to keep your feet injury-free while jogging. Buy shoes at the end of the day, when your feet are larger. Make sure they provide support without feeling too loose. Make sure your socks fit, too. Wear soft, seamless, well-padded socks for activity. Cotton or microfiber socks are best to help to absorb sweat. To protect your feet, avoid shoes that are open-toed or open-heeled. If you have questions about what kinds of shoes and socks are best, talk to your healthcare team. Get Regular Exercise Regular exercise improves blood flow in your feet. It also increases foot strength and flexibility.Gentle exercises, like walking or riding a stationary bicycle, are best. You can also do special foot exercises. Just be sure to talk with your healthcare provider before starting any exercise program. Also mention if any exercise causes pain, redness, or other signs of foot problems. Note: If you have any kind of break in the skin of your foot or ankle, keep the area clean. Then call your doctor--especially if the area doesnt appear to be healing. 2705-6276 [employer], [address] [place] [address], [place] [address]. All rights reserved. This information is not intended as a substitute for professional medical care. Always follow your healthcare professional's instructions. documented in this encounter Progress Notes * Kirstin Hightower PA-C - 04/02/2023 11:30 AM EDT Images from the original note were not included. History of Present Illness Zhane Kelly is a 72 year old female that presents for Re-Check and Medication Administration (Flu and/or Pneumo Inj) Nursing Notes: Andressa Gonzalez CMA 04/02/23 1158 Signed She is here for a 6 mo recheck. She thought she had a yeast infection but she isn't sure. She is itchy and has burning sometimes when her urine hits her skin. She just had a urine sample collected in the lab. Brief Clinical History Ms. Kelly is a 72 year old woman last seen in Family Medicine 6 months ago (10-01-22). She has h/o Adrenal nodule ([facility]), DM, metabolic disorder, No history of diabetic retinopathy in past year ([facility]), and Type 2 diabetes mellitus with hemoglobin A1c goal of less than 7.5% ([facility]). HPI: Zhane Kelly is a 72 year old female presenting to the office today for 6 month recheck. She is wondering if she might have a yeast infection. She has had some itching/burning for a coupleof weeks. She tried some Vagisil without much improvement. Her BP is slightly high today but she didn't take her medication yet. She did have her DM eye exam recently. She has been having trouble with loose/soft stools for a long time. She feels like at least months worth of symptoms. Diarrhea once in a while. She otherwise is feeling well. She is due for repeat colonoscopy. Current Outpatient Medications Medication Instructions Atorvastatin Calcium 40 MG Oral Tablet (Lipitor) TAKE 1 TABLET BY MOUTH EVERY DAY Calcium Carb-Cholecalciferol 1000-800 MG-UNIT Oral Tablet One daily ibandronate (BONIVA) 150 mg, Oral, [id number] Lisinopril 10 MG Oral Tablet (Prinivil) TAKE 1 TABLET BY MOUTH EVERY DAY metFORMIN HCl 1000 MG Oral Tablet (Glucophage) TAKE 1 TABLET BY MOUTH TWICE A DAY WITH MORNING AND EVENING MEAL Misc Natural Products (LUTEIN VISION BLEND) CAPS One daily Venlafaxine HCl ER 150 MG Oral Capsule Extended Release 24 Hour (Effexor XR) TAKE 1 CAPSULE BY MOUTH EVERY DAY vitamin b 12 (CYANOCOBALAMIN) 1,000 mcg, Oral, Daily(AM) Med list reviewed by me today. Physical Exam Vitals: 04/02/23 1121 Temp: 35.2 C (95.3 F) Pulse: 92 SpO2: 92% BP: 136/92 Physical exam: General: Well-Developed. Well appearing. No acute distress. HENT: Normocephalic. Atraumatic. Hearing normal. Eyes: EOMI. Sclera without erythema or icterus. No discharge. Pupils equal, round, reactive to light. Neck: No tracheal deviation. ROM intact. No stridor. Cardiovascular: RRR. Normal S1/S2 noted. No murmur, rub or gallop appreciated. Pulmonary: No respiratory distress. No accessory muscle use. No adventitious sounds appreciated. Normal breath sounds. Abdominal: Bowel sounds heard throughout. No tenderness to palpation. No organomegally or masses noted. No distention. Musculoskeletal: ROM intact and appears normal. No gait disturbance. No edema or cyanosis. No calf tenderness. Neurologic: Alert. Oriented x 3. Appears stated age. CN 2-12 grossly intact. Skin: Warm and dry. No apparent rashes or ecchymoses. No jaundice or pallor noted. Psych: Mood and affect normal. I have reviewed the following results: CMP, Lipid Panel, and Hemoglobin A1C Assessment and Plan Type 2 diabetes mellitus with hemoglobin A1c goal of less than 7.0% ([facility]) Consider change to metformin XR instead of short acting to see if this helps loose stools. She willtry Metamcuil fiber powder to bulk stools first and then if no improvement in a couple weeks, consider change. She agreed and will reach out - metFORMIN HCl 1000 MG Oral Tablet (Glucophage); TAKE 1 TABLET BY MOUTH TWICE A DAY WITH MORNING AND EVENING MEAL Need for prophylactic vaccination and inoculation against influenza - INFLUENZA VACC, QUAD, HIGH DOSE (FLUZONE HD) Hyperlipidemia with target LDL less than 100 Continue statin. Stable. - Atorvastatin Calcium 40 MG Oral Tablet (Lipitor); Take 1 Tablet by mouth in the morning. Yeast infection - Fluconazole 150 MG Oral Tablet (Diflucan); Take 1 Tablet by mouth once for 1 dose. History of colon polyps - COLONOSCOPY, GI REFERRAL OP Tubular adenoma - COLONOSCOPY, GI REFERRAL OP DM type 2 nursing care encounter (HCC) - DIABETES FOOT EXAM Wrap-Up Check-out note: Dermatology F/U Colonoscopy in spring if able F/U as scheduled or sooner PRN * Andressa Gonzalez CMA - 04/02/2023 11:23 AM EDT PRE - ADMINISTRATION DOCUMENTATION Are you experiencing any cold symptoms or fever? No Have you had Guillain-[place] Syndrome (an illness that causes paralysis) within the last 6 weeks? No Have you had the flu shot in the past? YES Have you ever had a reaction to the flu shot? No Andressa Gonzalez CMA, 04/02/2023 11:23 AM Immunization Administration Documentation Time Out Procedure Performed: Yes Patient Identified (Ask Name/Date of ): Yes Does the patient have a fever greater than 101 degrees today? No Patient allergic to latex? No VFC Stock: No Immunization(s) verified: Yes, Immunization Name: Flu, VIS Sheet(s) given: Yes Verified Side and Site: Yes Verified Shot(s) with Parent(s)/Patient: Yes Patient refuses diabetic foot exam today. Provider made aware. Andressa Gonzalez CMA DM Foot Exam completed today. Provider aware. Andressa Gonzalez CMA Socks and Shoes Removed for Annual Diabetic Foot Screening RIGHT FOOT: No Reddened, Cracking, Or Open Areas Noted. RIGHT Dorsalis Pedis Pulse: Palpable RIGHT Posterior Tibial Pulse: Palpable RIGHT Monofilament:Patient reports difficulty feeling monofilament at Great toe- plantar surface andBall of Foot-base of great toe LEFT FOOT: No Reddened, Cracking or Open Areas Noted. LEFT Dorsalis Pedis Pulse: Palpable LEFT Posterior Tibial Pulse: Palpable LEFT Monofilament:Patient reports feeling monofilament pressure on plantar surface of foot Do you need diabetic shoes: No documented in this encounter Nursing Notes * Andressa Gonzalez CMA - 04/02/2023 11:19 AM EDT She is here for a 6 mo recheck. She thought she had a yeast infection but she isn't sure. She is itchy and has burning sometimes when her urine hits her skin. She just had a urine sample collected in the lab. documented in this encounter Plan of Treatment Upcoming Encounters Date Type Specialty Care Team Description 09/12/2023 Imaging Radiology 10/07/2023 Office Visit Family Medicine Sulema Coughlin MD [address] [place] [address] JIHAN Contreras [phone] 01/14/2024 Office Visit Dermatology Bernadette Ruiz PA-C [address] [place] [address] JIH[place] Contreras [phone] Scheduled Procedures Name Priority Associated Diagnoses Date/Ti me COLONOSCOPY FLEXIBLE PROXIMAL DIAGNOSTIC Recall History of colon polyps Scheduled Referrals Name Type Priority Associated Diagnoses Orde r Schedule COLONOSCOPY, GI REFERRAL OP Referral Within 30 days (routine) History of colon polyps Tubular adenoma Ordered: 04/02/2023 Health Maintenance Due Date Last Done Comments Zoster Vaccines (2 of 3) 08/24/2015 06/29/2015 Depression Screening 10/19/2022 10/19/2021 DIABETES-EYE EXAM 02/26/2023 02/26/2022, 05/12/2021 COLONOSCOPY-EVERY 3 YRS AGES 18-100 03/02/2023 03/02/2020, 03/02/2020, 10/12/2014, Additional history exists Albumin/Creatinine Ratio 03/26/2023 022, 05/09/2021, 08/31/2016 HbA1c 04/02/2023 10/01/2022, 03/02, 09/26/2021, Additional history exists DTaP,Tdap,and Td Vaccines (2 - Td or Tdap) 05/12/2023 05/12/2013 Mammogram 09/11/2023 09/10/2022, 08/29, 07/22/2020, Additional history exists GFR 10/02/2023 10/01/2022, 03/02, 11/10/2021, Additional history exists DXA Scan 02/07/2024 02/06/2022, 01/30, 09/30/2014, Additional history exists Diabetic Foot Exam 04/02/2024 04/02/2023, 0 03/30/2022, 06/21/2021 Lipid Panel 03/26/2027 03/26/2022, 04/01, 08/31/2020, Additional history exists VITAMIN D LEVEL ONCE IN A LIFETIME-USE SMARTSET# [id number] Completed 08/31/2016, 03/12/2012 Pneumococcal Vaccine: 65+ Years [...] this encounter Medical Devices Implanted Type Area Coat Check Attendant Device Identifier Shelf Expiration Date Model / Serial / Lot Lens Intraoc 21.0 - [id number] - [id number] Implanted:Qty: 1 on 04/20/2019 by Rayshawn Monaco MD at OR [facility] Left: Eye [employer] 11/29/2023 [id number] / [id number] / [id number] Lens Intraoc 21.0 - [id number] - [id number] Implanted:Qty: 1 on 04/28/2019 by Rayshawn Monaco MD at OR [facility] Right: Eye [employer] 11/29/2023 [id number] / [id number] / [id number] documented as of this encounter Visit Diagnoses Diagnosis Type 2 diabetes mellitus with hemoglobin A1c goal of less than 7.0% (HCC)- Primary Need for prophylactic vaccination and inoculation against influenza Hyperlipidemia with target LDL less than 100 Other and unspecified hyperlipidemia Yeast infection Other and unspecified mycoses History of colon polyps Personal history of colonic polyps Tubular adenoma Benign neoplasm of unspecified site DM type 2 nursing care encounter (HCC) Type II or unspecified type diabetes mellitus without mention of complication, not stated as uncontrolled documented in this encounter Advance Directives Latest Code Status on File Code Status Date Activated Date Inactivated Comments Full Code 02/10/2019 10:51 AM 02/12/2019 1:41 PM This order reflects the patients wishes and were consensually agreed upon. Care Teams Cone Examiner Relationship Specialty Start Date End Date Sulema Coughlin MD [address] [place] [address] JIHAN Contreras [id number] PCP - General Family Medicine 03/28/11 documented as of this encounter
--- OUTSIDE RECORDS SUMMARY | 2023-07-26 05:29 | External Medical Summary | Summary of Care ---
Author Name Unknown Organization [facility] Address [address] [place] [address] Phone [phone] Care Team Providers Care Boilermaker Welder Name Role Phone Sulema Coughlin MD Primary Care Provide r Reason for Visit * Reason Onset Date Comments Appointment 04/02/2023 Colonoscopy Encounter Details Date Type Department Care Team Description 04/02/2023 Telephone Family Medicine [address] [address] Kirstin Hightower PA-C [address] [place] [address] [place] [address] Appointment (Colonoscopy ) Allergies No known active allergiesdocumented as of [...] Oral Capsule Extended Release 24 Hour (Effexor XR)Indications:Anxie ty TAKE 1 CAPSULE BY MOUTH EVERY DAY 90 Capsule 3 01/19/2023 Active Ibandronate Sodium 150 MG Oral Tablet (Boniva)Indications: Osteoporosis, unspecified osteoporosis type, unspecified pathological fracture presence TAKE BY MOUTH 1 TABLET EVERY 30 DAYS . 3 Tablet 2 02/13/2023 Active Atorvastatin Calcium 40 MG Oral Tablet (Lipitor)Indications :Hyperlipidemia with target LDL less than 100 Take 1 Tablet by mouth in the morning. 90 Tablet 3 04/02/2023 Active Lisinopril 10 MG Oral Tablet (Prinivil) Take 1 Tablet by mouth in the morning. 90 Tablet 3 04/02/2023 Active Fluconazole 150 MG Oral Tablet (Diflucan)Indication s:Yeast infection Take 1 Tablet by mouth once for 1 dose. 1 Tablet 0 04/02/2023 04/02/2023 Active metFORMIN HCl 1000 MG Oral Tablet (Glucophage)Indicati ons:Type 2 diabetes mellitus with hemoglobin A1c goal of less than 7.0% (HCC) TAKE 1 TABLET BY MOUTH TWICE A DAY WITH MORNING AND EVENING MEAL 180 Tablet 3 04/02/2023 Active documented as of this encounter (statuses as of 04/02/2023) Active Problems Problem Noted Date B12 deficiency 03/30/2022 No history of diabetic retinopathy in ne year 03/30/2022 Overview: 03/2022 Age-related osteoporosis without [...] CG/0.3 mL, 12 yrs and above, IM ([employer]) 04/02/2023 COVID-19, mRNA, LNP-s, PF, B ooster, 100mcg/0.5mg (Moderna) 10/24/2021,05/09/2021 Covid-19, Mrna, Lnp-s, Pf, B ivalent, 30 Mcg, IM, 12 yrs and above ([employer]) 04/03/2022 HEP A - Hepatitis A (Adult [...] encounter Miscellaneous Notes * Telephone Encounter - MARIBELL Jimenez - 04/02/2023 12:08 PM EDT Zhane españa scheduled for colonoscopy for: History of colon polyps [Z86.010] Tubular adenoma [D36.9] documented in this encounter Plan of Treatment Upcoming Encounters Date Type Specialty Care Team Description 09/12/2023 Imaging Radiology 10/07/2023 Office Visit Family Medicine Sulema Coughlin MD [address] [place] [address] JIHAN Contreras [id number] 01/14/2024 Office Visit Dermatology Bernadette Ruiz PA-C [address] [place] [address] JIH[place] Contreras [phone] Scheduled Procedures Name Priority Associated Diagnoses Date/Ti [...] D LEVEL ONCE IN A LIFETIME-USE SMARTSET# [id number] Completed 08/31/2016, 03/12/2012 Pneumococcal Vaccine: 65+ Years [...] this encounter Medical Devices Implanted Type Area Manager Of Radiology Device Identifier Shelf Expiration Date Model / Serial / Lot Lens Intraoc 21.0 - [id number] - [id number] Implanted:Qty: 1 on 04/20/2019 by Rayshawn Monaco MD at OR [facility] Left: Eye [employer] 11/29/2023 [id number] / [id number] / [id number] Lens [employer] 21.0 - [id number] - [id number] Implanted:Qty: 1 on 04/28/2019 by Rayshawn Monaco MD at OR [facility] Right: Eye [employer] 11/29/2023 [id number] / [id number] / [id number] documented as of this encounter Advance Directives Latest Code Status on File Code Status Date Activated Date Inactivated Comments Full Code 02/10/2019 10:51 AM 02/12/2019 1:41 PM This order reflects the patients wishes and were consensually agreed upon. Care Teams Boilermaker Welder Relationship Specialty Start Date End Date Sulema Coughlin MD [address] [place] [address] JIHAN Contreras [id number] PCP - General Family Medicine 03/28/11 documented as of this encounter
--- OUTSIDE RECORDS SUMMARY | 2023-07-26 05:29 | External Medical Summary | Summary of Care ---
Author Name Unknown Organization [facility] Address [address] [place] [address] Phone [phone] Care Team Providers Care Screen Maker Name Role Phone Sulema Coughlin MD Primary Care Provide r Reason for Visit * Reason Onset Date Comments Appointment 04/02/2023 Colonoscopy Encounter Details Date Type Department Care Team Description 04/02/2023 Telephone Family Medicine [address] [phone] Kirstin Hightower PA-C [address] [place] [address] [place] [address] Appointment (Colonoscopy ) Allergies No known [...] 03/30/2022 No history of diabetic retinopathy in ms year 03/30/2022 Overview: 03/2022 Age-related osteoporosis without [...] CG/0.3 mL, 12 yrs and above, IM ([employer]ao[employer]ia) 04/02/2023 COVID-19, mRNA, LNP-s, PF, B ooster, 100mcg/0.5mg (Moderna) 10/24/2021,05/09/2021 Covid-19, Mrna, Lnp-s, Pf, B ivalent, 30 Mcg, IM, 12 yrs and above ([employer]ia) 04/03/2022 HEP A - Hepatitis A (Adult [...] Miscellaneous Notes * Telephone Encounter - MARIBELL Weaver - 04/02/2023 1:19 PM EDT LMOM for pt to call back to schedule * Telephone Encounter - MARIBELL Jimenez - 04/02/2023 12:08 PM EDT Zhane españa scheduled for colonoscopy for: History of colon polyps [Z86.010] Tubular adenoma [D36.9] documented in this encounter Plan of Treatment Upcoming Encounters Date Type Specialty Care Team Description 09/12/2023 Imaging Radiology 10/07/2023 Office Visit Family Medicine Sulema Coughlin MD [address] [place] [address] [place] [id number] 01/14/2024 Office Visit Dermatology Bernadette Ruiz PA-C [address] [place] [address] [place] [phone] Scheduled Procedures Name Priority Associated Diagnoses Date/Ti [...] D LEVEL ONCE IN A LIFETIME-USE SMARTSET# [id number] Completed 08/31/2016, 03/12/2012 Pneumococcal Vaccine: 65+ Years [...] this encounter Medical Devices Implanted Type Area Head Operator Sulfide Device Identifier Shelf Expiration Date Model / Serial / Lot Lens Intraoc 21.0 - [id number] - [id number] Implanted:Qty: 1 on 04/20/2019 by Rayshawn Monaco MD at OR [facility] Left: Eye [employer] 11/29/2023 [id number] / [id number] / [id number] Lens Intraoc 21.0 - [id number] - [id number] Implanted:Qty: 1 on 04/28/2019 by Rayshawn Monaco MD at OR [facility] Right: Eye [employer]OM[employer] 11/29/2023 [id number] / [id number] / [id number] documented as of this encounter Advance Directives Latest Code Status on File Code Status Date Activated Date Inactivated Comments Full Code 02/10/2019 10:51 AM 02/12/2019 1:41 PM This order reflects the patients wishes and were consensually agreed upon. Care Teams Screen Maker Relationship Specialty Start Date End Date Sulema Coughlin MD [address] [place] [address] [place] [phone] PCP - General Family Medicine 03/28/11 documented as of this encounter
--- OUTSIDE RECORDS SUMMARY | 2023-07-26 05:29 | External Medical Summary | Summary of Care ---
Author Name Unknown Organization [facility] Address [address] [place] [address] Phone [phone] Care Team Providers Care Cnc Service Technician Name Role Phone Sulema Coughlin MD Primary Care Provide r Encounter Details Date Type Department Care Team (Late st Contact Info) Description 05/20/2023 Orders Only Outcomes Research Department [address] [place] [address] Pat Cano CHRA [facility] Other*[id number] Allergies No known active allergiesdocumented as of this encounter (statuses as of 05/20/2023) Medications Medication Sig Dispensed Refills Start Date [...] Active Atorvastatin Calcium 40 MG Oral Tablet (Lipitor)Indications: Hyperlipidemia with target LDL less than 100 Take 1 Tablet by mouth in the morning. 90 Tablet 3 04/02/2023 Active Lisinopril 10 MG Oral Tablet (Prinivil) Take 1 Tablet by mouth in the morning. 90 Tablet 3 04/02/2023 Active metFORMIN HCl 1000 MG Oral Tablet (Glucophage)Indicatio ns:Type 2 diabetes mellitus with hemoglobin A1c goal of less than 7.0% (HCC) TAKE 1 TABLET BY MOUTH TWICE A DAY WITH MORNING AND EVENING MEAL 180 Tablet 3 04/02/2023 Active documented as of this encounter (statuses as of 05/20/2023) Active Problems Problem Noted Date Diagnosed Date [...] as of this encounter (statuses as of 05/20/2023) Resolved Problems Problem Noted Date Diagnosed Date [...] as of this encounter (statuses as of 05/20/2023) Immunizations Name Administration Dates Next Due COVID-19 mRNA, LNP-s, No Pre serve, 2-Dose Series (Moderna) 09/14/2020,08/19/2020 COVID-19, MRNA-LNP, 23-24, P F, 30 MCG/0.3 mL, 12 YRS AND ABOVE, IM (OnShift-Comirnaty) 04/02/2023 COVID-19, mRNA, LNP-s, PF, B ooster, 100mcg/0.5mg (Moderna) 10/24/2021,05/09/2021 Covid-19, Mrna, Lnp-s, Pf, B ivalent, 30 Mcg, IM, 12 yrs and above ([employer]) 04/03/2022 HEP A - Hepatitis A (Adult [...] EST Hospital Encounter [facility], Endoscopy Room [facility] [address] [place] [phone] Angelic Aggarwal, DO [address] [place] [phone] 08/14/2023 9:30 AM EST - 08/14/2023 10:00 AM EST Surgery ENDO [facility], Endoscopy Room [facility] [address] [place] [phone] Angelic Aggarwal, DO [address] [place] [address] COLONOSCOPY FLEXIBLE PROXIMAL DIAGNOSTIC 09/12/2023 11:00 AM EDT Imaging Radiology [address] [place] [address] 10/07/2023 11:40 AM EDT Office Visit Family Medicine [address] [place] [phone] Sulema Coughlin MD [address] [place] [address] [place] [address] 01/14/2024 2:40 PM EDT Office Visit Dermatology [address] [place] [address] Bernadette Ruiz PA-C [address] [place] [address] [place] [phone] Scheduled Orders Name Type Priority Associated Diagnoses Orde r Schedule MYCODE SUBSEQUENT ADULT Lab Routine MyCode Research Other*[id number] Every 6 Months for 2 Occurrences starting 05/20/2023 until 06/08/2024 Scheduled Procedures Name Priority Associated Diagnoses Date/Ti [...] 09/07/2021, Additional history exists HbA1c 10/02/2023 04/02/2023, 04/0 08/2022, 03/26/2022, Additional history exists DXA Scan 02/07/2024 02/06/2022, 080 03/2022, 02/17/2018, Additional history exists Diabetic Eye Exam 03/01/2024 03/01/2023, , 02/26/2022, Additional history exists Albumin/Creatinine Ratio 04/02/2024 023, 03/26/2022, 05/09/2021, Additional history exists Diabetic Foot Exam 04/02/2024 04/02/2023, 0 03/30/2022, 06/21/2021 GFR 04/02/2024 04/02/2023, 04/0 08/2022, 03/26/2022, Additional history exists Lipid Panel 04/02/2028 04/02/2023, 03/02, 04/26/2021, Additional history exists VITAMIN D LEVEL ONCE IN A LIFETIME-USE SMARTSET# [id number] Completed 08/31/2016, 03/12/2012 Pneumococcal Vaccine: 65+ Years Completed 05/27/2017, 01/20/2016 Hepatitis B Completed 06/19/2018, 01/0 08/2017, 05/31/2017 COLONOSCOPY-EVERY 5 YRS AGES 18-100 [...] this encounter Medical Devices Implanted Type Area Mine Safety Engineer Device Identifier Shelf Expiration Date Model / Serial / Lot Lens Intraoc 21.0 - [id number] - [id number] Implanted:Qty: 1 on 04/20/2019 by Rayshawn Monaco MD at OR [facility] Left: Eye [employer] 11/29/2023 [id number] / [id number] / [id number] Lens Intraoc 21.0 - [id number] - [id number] Implanted:Qty: 1 on 04/28/2019 by aRyshawn Monaco MD at OR [facility] Right: Eye BA[employer]CH [employer]OMB 11/29/2023 [id number] / [id number] / [id number] documented as of this encounter Visit Diagnoses Diagnosis MyCode Research Other*[id number] History of colon polyps Personal history of colonic polyps documented in this encounter Advance Directives Latest Code Status on File Code Status Date Activated Date Inactivated Comments Full Code 02/10/2019 10:51 AM 02/12/2019 1:41 PM This order reflects the patients wishes and were consensually agreed upon. Care Teams Cnc Service Technician Relationship Specialty Start Date End Date Sulema Coughlin MD [address] [place] [address] [place] [phone] PCP - General Family Medicine 03/28/11 documented as of this encounter
--- OUTSIDE RECORDS SUMMARY | 2023-07-26 05:29 | External Medical Summary | Summary of Care ---
Author Name Unknown Organization [facility] Address [address] [place] [address] Phone [phone] Care Team Providers Care Knuckler Name Role Phone Sulema Coughlin MD Primary Care Provide r Reason for Visit * Reason Comments Outpatient Testing Encounter Details Date Type Department Care Team Description 04/02/2023 Laboratory Laboratory [address] [place] [phone] [facility] [address] [place] [phone] Type 2 diabetes mellitus with hemoglobin A1c goal of less than 7.0% ([facility]); Screening for nephropathy; Dyslipidemia, goal LDL below 100; UTI symptoms Allergies No known active allergiesdocumented as of this encounter (statuses as of 04/02/2023) Medications Medication Sig Dispensed Refills Start Date End Date Status Calcium Carb-Cholecalciferol 1000-800 MG-UNIT Oral Tablet One daily 0 Active Misc Natural Products (LUTEIN VISION BLEND) CAPS One daily 0 Active Cyanocobalamin 1000 MCG Oral Tablet (Cyanocobalamin) Take 1 Tablet by mouth in the morning. 0 03/30/2022 Active Lisinopril 10 MG Oral Tablet (Prinivil) TAKE 1 TABLET BY MOUTH EVERY DAY 90 Tablet 3 04/26/2022 Active Atorvastatin Calcium 40 MG Oral Tablet (Lipitor)Indications: Hyperlipidemia with target LDL less than 100 TAKE 1 TABLET BY MOUTH EVERY DAY 90 Tablet 3 04/26/2022 Active Venlafaxine HCl ER 150 MG Oral Capsule Extended Release 24 Hour (Effexor XR)Indications:Anxiet y TAKE 1 CAPSULE BY MOUTH EVERY DAY 90 Capsule 3 01/19/2023 Active Ibandronate Sodium 150 MG Oral Tablet (Boniva)Indications:O steoporosis, unspecified osteoporosis type, unspecified pathological fracture presence TAKE BY MOUTH 1 TABLET EVERY 30 DAYS . 3 Tablet 2 02/13/2023 Active metFORMIN HCl 1000 MG Oral Tablet (Glucophage)Indicatio ns:Type 2 diabetes mellitus with hemoglobin A1c goal of less than 7.0% (HCC) TAKE 1 TABLET BY MOUTH TWICE A DAY WITH MORNING AND EVENING MEAL 180 Tablet 0 03/29/2023 Active documented as of this encounter (statuses as of 04/02/2023) Active Problems Problem Noted Date B12 deficiency 03/30/2022 No history of diabetic retinopathy in nd st year 03/30/2022 Overview: 03/2022 Age-related osteoporosis [...] 30 Mcg, IM, 12 yrs and above ([place]) 04/03/2022 HEP A - Hepatitis A (Adult [...] Encounters Date Type Specialty Care Team Description 04/02/2023 Office Visit Family Medicine Kirstin Hightower PA-C [address] [place] [address] [place] [phone] 09/12/2023 Imaging Radiology 10/07/2023 Office Visit Family Medicine Sulema Coughlin MD [address] [place] [address] [place] [phone] Pending Results Name Type Priority Associated Diagnoses Date /Time HEMOGLOBIN A1C Lab Routine Type 2 diabetes mellitus with hemoglobin A1c goal of less than 7.0% ([facility]) 04/02/2023 10:32 AM EDT ALBUMIN / CREATININE RATIO, URINE Lab Routine Screening for nephropathy 04/02/2023 10:32 AM EDT LIPID PANEL WITH DIRECT LDL IF TG IS HIGH Lab Routine Dyslipidemia, goal LDL below 100 04/02/2023 10:32 AM EDT COMPREHENSIVE METABOLIC PANEL Lab Routine Dyslipidemia, goal LDL below 100 04/02/2023 10:32 AM EDT URINALYSIS, REFLEX TO MICROSCOPIC Lab Routine UTI symptoms 04/02/2023 10:32 AM EDT CULTURE, URINE, QUANTITATIVE Lab Routine UTI symptoms 04/02/2023 10:32 AM EDT Scheduled Procedures Name Priority Associated Diagnoses Date/Ti me COLONOSCOPY FLEXIBLE PROXIMAL DIAGNOSTIC Recall History of colon polyps Health Maintenance Due Date Last Done Comments Zoster Vaccines (2 of 3) 08/24/2015 06/29/2015 Depression Screening 10/19/2022 10/19/2021 DIABETES-EYE EXAM 02/26/2023 02/26/2022, 05/12/2021 COVID-19 Vaccine ( season) 2023 04/03/2022, 10/24/2021, 05/09/2021, Additional history exists Influenza Vaccine (FLU shot) (#1) 2023 03/30/2022, 05/09/2021, 04/20/2020, Additional history exists COLONOSCOPY-EVERY 3 YRS AGES 18-100 03/02/2023 03/02/2020, [...] D LEVEL ONCE IN A LIFETIME-USE SMARTSET# [id number] Completed 08/31/2016, 03/12/2012 Pneumococcal Vaccine: 65+ Years Completed 05/27/2017, 01/20/2016 Hepatitis B Completed 06/19/2018, 08/2017, 05/31/2017 COLONOSCOPY-EVERY 5 YRS AGES 18-100 Discontinued 03/02/2020, 03/02/2020, 10/12/2014, Additional history exists GARDASIL-HPV IMMUNIZATION SERIES Aged Out No longer eligible based on patient's age to complete this topic MENINGOCOCCAL (MENACTRA/MENVEO) Aged Out No longer eligible based on patient's age to complete this topic documented as of this encounter Medical Devices Implanted Type Area [employer] Clerk Device Identifier Shelf Expiration Date Model / Serial / Lot Lens Intraoc 21.0 - [id number] - [id number] Implanted:Qty: 1 on 04/20/2019 by Rayshawn Monaco MD at OR [facility] Left: Eye [employer]OM[employer] 11/29/2023 [id number] / [id number] / [id number] Lens Intraoc 21.0 - [id number] - [id number] Implanted:Qty: 1 on 04/28/2019 by Rayshawn Monaco MD at OR [facility] Right: Eye [employer]CH [employer]OMB 11/29/2023 [id number] / [id number] / [id number] documented as of this encounter Visit Diagnoses Diagnosis Type 2 diabetes mellitus with hemoglobin A1c goal of less than 7.0% ([facility]) Screening for nephropathy Dyslipidemia, goal LDL below 100 Other and unspecified hyperlipidemia UTI symptoms Other symptoms involving urinary system documented in this encounter Advance Directives Latest Code Status on File Code Status Date Activated Date Inactivated Comments Full Code 02/10/2019 10:51 AM 02/12/2019 1:41 PM This order reflects the patients wishes and were consensually agreed upon. Care Teams Knuckler Relationship Specialty Start Date End Date Sulema Coughlin MD [address] [place] [address] [place] [phone] PCP - General Family Medicine 03/28/11 documented as of this encounter
--- OUTSIDE RECORDS SUMMARY | 2023-07-26 05:29 | External Medical Summary | Summary of Care ---
Author Name Unknown Organization [facility] Address [address] [place] [facility] [place] [address] Phone [phone] Care Team Providers Care Shoeblack Name Role Phone Sulema Coughlin MD Primary Care Provide r Reason for Visit * Reason Comments Outpatient Testing Encounter Details Date Type Department Care Team Description 04/02/2023 Laboratory Laboratory [address] [place] [phone] [facility] [address] [place] [address] Type 2 diabetes mellitus with hemoglobin A1c goal of less than 7.0% ([facility]); Screening for nephropathy; Dyslipidemia, goal LDL below 100; UTI symptoms Allergies No known active allergiesdocumented as of this encounter (statuses as of 04/04/2023) Medications Medication Sig Dispensed Refills Start Date [...] DAYS . 3 Tablet 2 02/13/2023 Active Cephalexin 500 MG Oral Capsule (Keflex) Take 1 Capsule by mouth in the morning and 1 Capsule before bedtime. Do all this for 5 days. 10 Capsule 0 04/04/2023 04/09/2023 Active Lisinopril 10 MG Oral Tablet (Prinivil) [...] as of this encounter (statuses as of 04/04/2023) Active Problems Problem Noted Date B12 deficiency 03/30/2022 No history of diabetic retinopathy in wi st year 03/30/2022 Overview: 03/2022 Age-related osteoporosis [...] as of this encounter (statuses as of 04/04/2023) Resolved Problems Problem Noted Date Resolved Date [...] as of this encounter (statuses as of 04/04/2023) Immunizations Name Administration Dates Next Due COVID-19 mRNA, LNP-s, No Pre serve, 2-Dose Series (Moderna) 09/14/2020,08/19/2020 COVID-19, MRNA-LNP, PF, 30 M CG/0.3 mL, 12 yrs and above, IM (Pfizer) 04/02/2023 COVID-19, mRNA, LNP-s, PF, B ooster, 100mcg/0.5mg (Moderna) 10/24/2021,05/09/2021 Covid-19, Mrna, Lnp-s, Pf, B ivalent, 30 Mcg, IM, 12 yrs and above (Integrated Micro-Chromat[employer] Systems) 04/03/2022 HEP A - Hepatitis A (Adult [...] as of this encounter Miscellaneous Notes * Addendum Note - Kirstin Colón PA-C - 04/04/2023 12:54 PM EDTAddended by: KIRSTIN COLÓN on: 04/04/2023 12:54 PM Modules accepted: Orders documented in this encounter Plan of Treatment Upcoming Encounters Date Type Specialty Care Team Description 08/14/2023 Hospital Encounter Endoscopy Angelic Aggarwal, DO [address] [place] [address] 08/14/2023 Surgery Endoscopy Angelic Aggarwal, DO [address] [place] [address] COLONOSCOPY FLEXIBLE PROXIMAL DIAGNOSTIC 09/12/2023 Imaging Radiology 10/07/2023 Office Visit Family Medicine Sulema Coughlin MD [address] [place] [address] [place] [address] 01/14/2024 Office Visit Dermatology Bernadette Ruiz PA-C [address] [place] [address] [place] [phone] Scheduled Procedures Name Priority Associated Diagnoses Date/Ti [...] 09/11/2023 09/10/2022, 08/29, 07/22/2020, Additional history exists HbA1c 10/02/2023 04/02/2023, 04/0 08/2022, 03/26/2022, Additional history exists DXA Scan 02/07/2024 02/06/2022, 01/30, 09/30/2014, Additional history exists Albumin/Creatinine Ratio 04/02/2024 023, 03/26/2022, 05/09/2021, Additional history exists Diabetic Foot Exam 04/02/2024 04/02/2023, 0 03/30/2022, 06/21/2021 GFR 04/02/2024 04/02/2023, 04/0 08/2022, 03/26/2022, Additional history exists Lipid Panel 04/02/2028 04/02/2023, 03/02, 04/26/2021, Additional history exists VITAMIN D LEVEL ONCE IN A LIFETIME-USE SMARTSET# [id number] Completed 08/31/2016, 03/12/2012 Pneumococcal Vaccine: 65+ Years [...] this encounter Medical Devices Implanted Type Area Nursing Program Coordinator Device Identifier Shelf Expiration Date Model / Serial / Lot Lens Intraoc 21.0 - [id number] - [id number] Implanted:Qty: 1 on 04/20/2019 by Rayshawn Monaco MD at OR [facility] Left: Eye [employer] 11/29/2023 [id number] / [id number] / [id number] Lens Intraoc 21.0 - [id number] - [id number] Implanted:Qty: 1 on 04/28/2019 by Rayshawn Monaco MD at OR [facility] Right: Eye [employer] 11/29/2023 [id number] / [id number] / [id number] documented as of this encounter Procedures Procedure Name Priority Date/Time Associated Diagnosis Comments LIPID PANEL WITH DIRECT LDL IF TG IS HIGH Routine 04/02/2023 10:32 AM EDT Dyslipidemia, goal LDL below 100 CULTURE, URINE, QUANTITATIVE Routine 04/02/2023 10:32 AM EDT UTI symptoms HEMOGLOBIN A1C Routine 04/02/2023 10:32 AM EDT Type 2 diabetes mellitus with hemoglobin A1c goal of less than 7.0% ([facility]) COMPREHENSIVE METABOLIC PANEL Routine 04/02/2023 10:32 AM EDT Dyslipidemia, goal LDL below 100 ALBUMIN / CREATININE RATIO, URINE Routine 04/02/2023 10:32 AM EDT Screening for nephropathy LDL CHOLESTEROL (DIRECT MEASURE) Routine 04/02/2023 10:32 AM EDT Dyslipidemia, goal LDL below 100 URINALYSIS, REFLEX TO MICROSCOPIC Routine 04/02/2023 10:32 AM EDT UTI symptoms documented in this encounter Results * LDL CHOLESTEROL (DIRECT MEASURE) (04/02/2023 10:32 AM EDT) LDL Cholesterol (Direct Measure) 62 <=129 mg/dL 04/03/2023 12:49 AM EDT [facility] Comment: LDL Cholesterol Reference Ranges (mg/dL): <70 Target level for high risk ASCVD patient <100 Optimal for general population 100-129 Near optimal for general population 130-159 Borderline high 160-189 High >=190 Very high Blood Venous blood specimen / Unknown Venipuncture / Unknown 04/02/2023 10:32 AM EDT 04/02/2023 10:32 AM EDT Sulema Coughlin MD LAB BLOOD ORD ERABLES [facility] [address] [place] [address] * (ABNORMAL) CULTURE, URINE, QUANTITATIVE (04/02/2023 10:32 AM EDT) Culture Growth >100,000 colonies/mL Klebsiella pneumoniae(A) MICROBROTH DILUTIONS 04/04/2023 10:34 AM EDT [facility] Urine Urine specimen obtained by clean catch procedure / Unknown Non-blood Collection / Unknown 04/02/2023 10:32 AM EDT 04/02/2023 10:32 AM EDT Narrative [facility] - 04/04/2023 10:34 AM EDT <10,000 colonies/ml mixed normal silviano Organism Antibiotic Method Susceptibility Klebsiella pneumoniae Ampicillin/Sulbactam MICROBROTH DILUTIONS <=2: Susceptible Klebsiella pneumoniae Cefazolin MICROBROTH DILUTIONS <=4: Susceptible Klebsiella pneumoniae Cefepime MICROBROTH DILUTIONS <=1: Susceptible Klebsiella pneumoniae Ceftriaxone MICROBROTH DILUTIONS <=1: Susceptible Klebsiella pneumoniae Ciprofloxacin MICROBROTH DILUTIONS <=0.25: Susceptible Comment:Due to marcus us side effects, the FDA has advised against using Ciprofloxacin to treat uncomplicated UTIs and respiratory tract infections unless there are no alternative treatment options. Klebsiella pneumoniae Gentamicin MICROBROTH DILUTIONS <=1: Susceptible Klebsiella pneumoniae Nitrofurantoin MICROBROTH DILUTIONS 32: Susceptible Klebsiella pneumoniae Piperacillin Tazobactam MICROBROTH DILUTIONS <=4: Susceptible Klebsiella pneumoniae Trimeth/Sulfamethoxazole MICROBROTH DILUTIONS <=20: Susceptible Kirstin Colón PA-C LAB MICRO - GENERAL ORDERABLES [facility] [address] [place] [address] * (ABNORMAL) URINALYSIS, REFLEX TO MICROSCOPIC (04/02/2023 10:32 AM EDT) Color, Urine Yellow Colorless, Light Yellow, Yellow, Dark Yellow 04/02/2023 9:56 PM EDT [facility] Clarity, Urine Slightly Cloudy(A) Clear 04/02/2023 9:56 PM EDT [facility] Glucose, Urine Negative Negative mg/dL 04/02/2023 9:56 PM EDT [facility] Bilirubin, Urine Negative Negative 04/02/2023 9:56 PM EDT [facility] Ketone, Urine Trace(A) Negative mg/dL 04/02/2023 9:56 PM EDT [facility] Specific Bryson, Urine 1.021 1.003 - 1.030 04/02/2023 9:56 PM EDT [facility] Blood, Urine Negative Negative 04/02/2023 9:56 PM EDT [facility] pH, Urine 5.5 5.0 - 7.5 Units 04/02/2023 9:56 PM EDT [facility] Protein, Urine Trace(A) Negative mg/dL 04/02/2023 9:56 PM EDT [facility] Urobilinogen, Urine Normal Normal mg/dL 04/02/2023 9:56 PM EDT [facility] Nitrite, Urine Positive(A) Negative 04/02/2023 9:56 PM EDT [facility] Esterase, Urine Large(A) Negative 04/02/2023 9:56 PM EDT [facility] RBC, Urine 0-2 0 - 2 /HPF 04/02/2023 9:56 PM EDT [facility] WBC, Urine 0-2 0 - 2 /HPF 04/02/2023 9:56 PM EDT [facility] Bacteria, Urine 0-25 0 - 25 /HPF 04/02/2023 9:56 PM EDT [facility] Urine Urine specimen obtained by clean catch procedure / Unknown Non-blood Collection / Unknown 04/02/2023 10:32 AM EDT 04/02/2023 10:32 AM EDT Kirstin Colón PA-C LAB URINE ORDERABLE S [facility] [address] [place] [address] * (ABNORMAL) COMPREHENSIVE METABOLIC PANEL (04/02/2023 10:32 [...] 35 U/L 04/03/2023 12:30 AM EDT [facility] Blood Venous blood specimen / Unknown Venipuncture / Unknown 04/02/2023 10:32 AM EDT 04/02/2023 10:32 AM EDT Sulema Coughlin MD LAB BLOOD ORD ERABLES Performing Organization Address City/[facility]/ZIP Co de Phone Number [facility] [address] [place] [address] * (ABNORMAL) LIPID PANEL WITH DIRECT LDL IF TG IS HIGH (04/02/2023 10:32 AM EDT) Triglycerides 174 <=174 mg/dL 04/03/2023 12:30 AM EDT [facility] Comment: Triglyceride Reference Ranges (mg/dL): <150 Acceptable 150-174 Borderline high 175-499 High >=500 Very high Cholesterol 126 <200 mg/dL 04/03/2023 12:30 AM EDT [facility] Comment: Total Cholesterol Reference Ranges (mg/dL): <200 Desirable 200-239 Borderline high >=240 High HDL Cholesterol 38(L) >49 mg/dL 12:30 AM EDT [facility] Comment: HDL Cholesterol Reference Ranges (mg/dL): >=60 High (Desirable) <50 Low (Undesirable) For Females <40 Low (Undesirable) For Males Non-HDL Cholesterol 88 <=159 mg/dL 04/03/2023 12:30 AM EDT [facility] Comment: Non-HDL Cholesterol Reference Range (mg/dL): <100 Target level for high risk ASCVD patient <130 Optimal for general population 130-159 Near optimal for general population 160-189 Borderline High 190-219 High >=220 Very High Blood Venous blood specimen / Unknown Venipuncture / Unknown 04/02/2023 10:32 AM EDT 04/02/2023 10:32 AM EDT Sulema Coughlin MD LAB BLOOD ORD ERABLES [facility] [address] [place] [address] * (ABNORMAL) ALBUMIN / CREATININE RATIO, URINE (04/02/2023 10:32 AM EDT) Albumin, Random Urine 4.70 mg/dL 04/02/2023 10:13 PM EDT [facility] Creatinine, Random Urine 151 mg/dL 04/02/2023 10:13 PM EDT [facility] Albumin / Creatinine Ratio, Urine 31(H) <30 mg/g Creat 04/02/2023 10:13 PM EDT [facility] Urine Urine specimen obtained by clean catch procedure / Unknown Non-blood Collection / Unknown 04/02/2023 10:32 AM EDT 04/02/2023 10:32 AM EDT Narrative [facility] - 04/02/2023 10:13 PM EDT Normal: <30 mg/g creatinine High: 30-300 mg/g creatinine Very High: >300 mg/g creatinine Nephrotic: >2200 mg/g creatinine Sulema Coughlin MD LAB URINE ORD ERABLES Performing Organization Address [facility] de Phone Number [facility] [address] [place] [address] * (ABNORMAL) HEMOGLOBIN A1C (04/02/2023 10:32 AM EDT) Hemoglobin A1C 7.1(H) 4.0 - 5.6 % 04/03/2023 12:34 AM EDT [facility] Comment:The use of HbA1c to monitor glycemic status is based on normal hemoglobin and HbA composition. This test should not be used in patients with abnormal hemoglobin that affects the half life of the red blood cell or the in vivo glycation rates. Estimated Average Glucose 157(H) <126 mg/dL 04/03/2023 12:34 AM EDT [facility] Blood Venous blood specimen / Unknown Venipuncture / Unknown 04/02/2023 10:32 AM EDT 04/02/2023 10:32 AM EDT Sulema Coughlin MD LAB BLOOD ORD ERABLES Performing Organization Address City/[facility]/ZIP Co de Phone Number [facility] [address] [place] [facility] [place] [address] documented in this encounter Visit Diagnoses Diagnosis Type 2 diabetes mellitus with hemoglobin A1c goal of less than 7.0% ([facility]) Screening for nephropathy Dyslipidemia, goal LDL below 100 Other and unspecified hyperlipidemia UTI symptoms Other symptoms involving urinary system History of colon polyps Personal history of colonic polyps documented in this encounter Advance Directives Latest Code Status on File Code Status Date Activated Date Inactivated Comments Full Code 02/10/2019 10:51 AM 02/12/2019 1:41 PM This order reflects the patients wishes and were consensually agreed upon. Care Teams Shoeblack Relationship Specialty Start Date End Date Sulema Coughlin MD [address] [place] [address] [place] [phone] PCP - General Family Medicine 03/28/11 documented as of this encounter
--- OUTSIDE RECORDS SUMMARY | 2023-07-26 05:29 | External Medical Summary | Summary of Care ---
Author Name Unknown Organization [facility] Address [address] [place] [address] Phone [phone] Care Team Providers Care Career Education Teacher Name Role Phone Sulema Coughlin MD Primary Care Provide r Reason for Visit * Reason Onset Date Comments Appointment 04/02/2023 Colonoscopy Encounter Details Date Type Department Care Team Description 04/02/2023 Telephone Family Medicine [address] [phone] Kirstin Hightower PA-C [address] [place] [address] [place] [address] Appointment (Colonoscopy ) Allergies No known [...] 03/30/2022 No history of diabetic retinopathy in me year 03/30/2022 Overview: 03/2022 Age-related osteoporosis without [...] CG/0.3 mL, 12 yrs and above, IM (S B E) 04/02/2023 COVID-19, mRNA, LNP-s, PF, B ooster, 100mcg/0.5mg (Moderna) 10/24/2021,05/09/2021 Covid-19, Mrna, Lnp-s, Pf, B ivalent, 30 Mcg, IM, 12 yrs and above (S B E) 04/03/2022 HEP A - Hepatitis A (Adult [...] Miscellaneous Notes * Telephone Encounter - MARIBELL Baeza - 04/02/2023 1:29 PM EDT Colon audra'd 08/14 w/ Jasen. * Telephone Encounter - Lopez Miller, MARIBELL - 04/02/2023 1:19 PM EDT LMOM for [...] Aggarwal, DO [address] [place] [address] 08/14/2023 Surgery Endoscopy Angelic Aggarwal, DO [address] [place] [address] COLONOSCOPY FLEXIBLE PROXIMAL DIAGNOSTIC 09/12/2023 Imaging Radiology 10/07/2023 Office Visit Family Medicine Sulema Coughlin MD [address] [place] [address] [place] [phone] 01/14/2024 Office Visit Dermatology Bernadette Ruiz PA-C [address] [place] [address] [place] [phone] Scheduled Procedures Name Priority Associated Diagnoses Date/Ti [...] D LEVEL ONCE IN A LIFETIME-USE SMARTSET# [id number] Completed 08/31/2016, 03/12/2012 Pneumococcal Vaccine: 65+ Years [...] this encounter Medical Devices Implanted Type Area Press Tender Long Goods Device Identifier Shelf Expiration Date Model / Serial / Lot Lens Intraoc 21.0 - [id number] - [id number] Implanted:Qty: 1 on 04/20/2019 by Rayshawn Monaco MD at OR [facility] Left: Eye [employer] 11/29/2023 [id number] / [id number] / [id number] Lens Intraoc 21.0 - [id number] - [id number] Implanted:Qty: 1 on 04/28/2019 by Rayshawn Monaco MD at OR [facility] Right: Eye [employer] 11/29/2023 [id number] / [id number] / [id number] documented as of this encounter Advance Directives Latest Code Status on File Code Status Date Activated Date Inactivated Comments Full Code 02/10/2019 10:51 AM 02/12/2019 1:41 PM This order reflects the patients wishes and were consensually agreed upon. Care Teams Career Education Teacher Relationship Specialty Start Date End Date Sulema Coughlin MD [address] [place] [address] [place] [phone] PCP - General Family Medicine 03/28/11 documented as of this encounter
--- OUTSIDE RECORDS SUMMARY | 2023-07-26 05:30 | External Medical Summary ---
Author Name Unknown Address Unknown Organization K01:[facility] [place] [address] [facility] [place] [id number] Laboratory Report Ordering Provider Test Date Status JUDIE PIERRE 04/02/2023 10:32:40 Final Observation Date Value Abnormality Reference (Units ) Status BUN 04/02/2023 10:32:40 15 6-20 (mg/dL) Final Creatinine 04/02/2023 10:32:40 0.7 0.5-1.0 (mg/dL) Final Glomerular filtration rate/1.73 sq M.predicted [Volume Rate/Area] in Serum, Plasma or Blood by Creatinine-based formula (CKD-EPI) 04/02/2023 10:32:40 86 >=60 (mL/min) Final eGFR is calculated based on the CKD-EPI 2020 equation SODIUM 04/02/2023 10:32:40 141 135-146 (m mol/L) Final Potassium 04/02/2023 10:32:40 4.9 3.5-5.1 (m mol/L) Final Cl 04/02/2023 10:32:40 104 98-107 (mm ol/L) Final CO2 04/02/2023 10:32:40 26 22-32 (mmo l/L) Final Anion gap 04/02/2023 10:32:40 11 7-15 (mmol /L) Final Glucose 04/02/2023 10:32:40 137 Above high normal 70 -120 (mg/dL) Final Albumin 04/02/2023 10:32:40 4.2 3.8-5.0 (g /dL) Final AST (Aspartate aminotransferase) 04/02/2023 10:32:40 16 10-35 (U/L) Fin al Alk Phos 04/02/2023 10:32:40 63 35-130 (U/ L) Final Bilirubin, Total 04/02/2023 10:32:40 0.5 <=1 .2 (mg/dL) Final Calcium 04/02/2023 10:32:40 9.3 8.4-10.2 ( mg/dL) Final Protein 04/02/2023 10:32:40 6.4 6.0-8.3 (g /dL) Final ALT (Alanine aminotransferase) 04/02/2023 10:32:40 21 10-35 (U/L) Malvin kowalski Performing Location [facility] [address]. [facility] [address]
--- OUTSIDE RECORDS SUMMARY | 2023-07-26 05:30 | External Medical Summary ---
Author Name Unknown Address Unknown Organization K01:[facility] [place] [address] [facility] [address] Laboratory Report Ordering Provider Test Date Status ELDON OLIVARES 04/02/2023 10:32:40 Final Observation Date Value Abnormality Reference (Units ) Status Color of Urine by Auto 04/02/2023 10:32:40 Yellow Colorless, Light Yellow, Yellow, Dark Yellow Final Clarity, Urine 04/02/2023 10:32:40 Slightly Cloudy Abnormal Clear Final Glucose [Mass/volume] in Urine by Automated test strip 04/02/2023 10:32:40 Negative Negative (mg/dL) Final Bilirubin.total [Presence] in Urine by Automated test strip 04/02/2023 10:32:40 Negative Negative Final Ketones [Mass/volume] in Urine by Automated test strip 04/02/2023 10:32:40 Trace Abnormal Negative (mg/dL) Final Specific gravity, Urine 04/02/2023 10:32:40 1.021 1.003-1.030 Final Hemoglobin [Presence] in Urine by Automated test strip 04/02/2023 10:32:40 Negative Negative Final pH, Urine 04/02/2023 10:32:40 5.5 5.0-7.5 (Units) Final Protein [Mass/volume] in Urine by Automated test strip 04/02/2023 10:32:40 Trace Abnormal Negative (mg/dL) Final Urobilinogen [Mass/volume] in Urine by Automated test strip 04/02/2023 10:32:40 Normal Normal (mg/dL) Final Nitrite [Presence] in Urine by Automated test strip 04/02/2023 10:32:40 Positive Abnormal Negative Final Leukocyte esterase [Presence] in Urine by Automated test strip 04/02/2023 10:32:40 Large Abnormal Negative Final RBC, Urine 04/02/2023 10:32:40 0-2 0-2 (/HPF) Final WBC, Urine 04/02/2023 10:32:40 0-2 0-2 (/HPF) Final Bacteria [#/area] in Urine sediment by Microscopy high power field 04/02/2023 10:32:40 0-25 0-25 (/HPF) Final Performing Location [facility] - [facility] [address] [facility] [address]
--- OUTSIDE RECORDS SUMMARY | 2023-07-26 05:30 | External Medical Summary | Summary of Care ---
Author Name Unknown Organization [facility] Address [address] [place] [address] Phone [phone] Care Team Providers Care Cigar Sorter Name Role Phone Ignacio Coughlin MD Primary Care Provide r Reason for Visit * Reason Comments eRx-Medication Refill Encounter Details Date Type Department Care Team Description 02/13/2023 Refill Family Medicine [address] [address] Ignacio Coughlin MD [address] [place] [address] [place] [address] Osteoporosis, unspecified osteoporosis type, unspecified pathological fracture presence Allergies No known active allergiesdocumented as of this encounter (statuses as of 02/13/2023) Medications Medication Sig Dispensed Refills Start Date [...] EVERY DAY 90 Tablet 3 04/26/2022 Active metFORMIN HCl 1000 MG Oral Tablet (Glucophage)Indica tions:Type 2 diabetes mellitus with hemoglobin A1c goal of less than 7.0% (HCC) TAKE BY MOUTH 1 TABLET 2 TIMES A DAY WITH MORNING AND EVENING MEALS . 180 Tablet 1 10/02/2022 Active Venlafaxine HCl ER 150 MG Oral Capsule Extended Release 24 Hour (Effexor XR)Indications:Anx iety TAKE 1 CAPSULE BY MOUTH EVERY DAY 90 Capsule 3 01/19/2023 Active Ibandronate Sodium 150 MG Oral Tablet (Boniva)Indication s:Osteoporosis, unspecified osteoporosis type, unspecified pathological fracture presence TAKE BY MOUTH 1 TABLET EVERY 30 DAYS . 3 Tablet 2 02/13/2023 Active Ibandronate Sodium 150 MG Oral Tablet (Boniva)Indication s:Osteoporosis, unspecified osteoporosis type, unspecified pathological fracture presence Take by mouth 1 Tablet every 30 days . 3 Tablet 3 02/08/2022 3 Discontinued documented as of this encounter (statuses as of 02/13/2023) Active Problems Problem Noted Date B12 deficiency 03/30/2022 No history of diabetic retinopathy in sd year 03/30/2022 Overview: 03/2022 Age-related osteoporosis without [...] as of this encounter (statuses as of 02/13/2023) Resolved Problems Problem Noted Date Resolved Date [...] as of this encounter (statuses as of 02/13/2023) Immunizations Name Administration Dates Next Due COVID-19 mRNA, LNP-s, No Pre serve, 2-Dose Series (Moderna) 09/14/2020,08/19/2020 Covid-19 Mrna, Lnp-s, No Pre serve, Booster (Moderna) 10/24/2021,05/09/2021 Covid-19, Mrna, Lnp-s, Pf, B ivalent, 30 Mcg, IM, 12 yrs and above ([facility]) 04/03/2022 HEP A - Hepatitis A (Adult > 18 yrs) 07/08/2018, 05/27/2017 Hepatitis B, 20+ yrs 06/19/2018,07/02/2017,05/31 Pneumococcal Conjugate Vacc, 13 Valent (Prevnar) 01/20/2016 Pneumococcal Polysaccharide PPV23 (Pneumovax) 05/27/2017 Seasonal Influenza, Quadriva lent Hd (Fluzone Hd) 03/30/2022,05/09/2021 Seasonal Influenza, Quadriva lent Hd, 65+ Yrs 04/20/2020 Seasonal Influenza, Quadriva lent, No Preserve, 6 Mons & Above, IM 03/11/2019,06/19/2018,05/06/2017 Seasonal Influenza, Quadriva lent, No Preserve, IM [...] encounter Miscellaneous Notes * Telephone Encounter - Lamberto Wade lorenzo - 02/13/2023 2:49 PM EDT Signed Prescriptions: Disp Refills Ibandronate Sodium 150 MG Oral Tablet (Bon*3 Tabl*2 Sig: TAKE BYMOUTH 1 TABLET EVERY 30 DAYS .Authorizing Provider: IGNACIO COUGHLINOrdering User: LAMBERTO WADE documented in this encounter Plan of Treatment Upcoming Encounters Date Type Specialty Care Team Description 04/02/2023 Office Visit Family Medicine Kirstin Hightower PA-C [address] [place] [address] [place] [phone] 09/12/2023 Imaging Radiology 10/07/2023 Office Visit Family Medicine Ignacio Coughlin MD [address] [place] [address] [place] [id number] Scheduled Procedures Name Priority Associated Diagnoses Date/Ti me COLONOSCOPY FLEXIBLE PROXIMAL DIAGNOSTIC Recall History of colon polyps Health Maintenance Due Date Last Done Comments Zoster Vaccines (2 of 3) 08/24/2015 06/29/2015 Depression Screening, Annual for Pts 12 and Over 10/19/2022 10/19/2021 DIABETES-EYE EXAM 02/26/2023 02/26/2022, 05/12/2021 Influenza Vaccine (FLU shot) (#1) 2023 03/30/2022, 05/09/2021, 04/20/2020, Additional history exists COLONOSCOPY-EVERY 3 YRS AGES 18-100 03/02/2023 03/02/2020, 03/02/2020, 10/12/2014, Additional history exists Albumin/Creatinine Ratio 03/26/2023 022, 05/09/2021, 08/31/2016 DIABETES-FOOT EXAM 03/30/2023 03/30/2022, 06/21/2021 HbA1c 04/02/2023 10/01/2022, 03/02, 09/26/2021, Additional history exists DTaP,Tdap,and Td Vaccines (2 - Td or Tdap) 05/12/2023 05/12/2013 Mammogram 09/11/2023 09/10/2022, 08/29, 07/22/2020, Additional history exists GFR 10/02/2023 10/01/2022, 03/02, 11/10/2021, Additional history exists DXA Scan 02/07/2024 02/06/2022, 01/30, 09/30/2014, Additional history exists Lipid Panel 03/26/2027 03/26/2022, 04/01, 08/31/2020, Additional history exists VITAMIN D LEVEL ONCE IN A LIFETIME-USE SMARTSET# [id number] Completed 08/31/2016, 03/12/2012 Pneumococcal Vaccine: 65+ Years Completed 05/27/2017, 01/20/2016 Hepatitis B Completed 06/19/2018, 08/2017, 05/31/2017 COLONOSCOPY-EVERY 5 YRS AGES 18-100 Discontinued 03/02/2020, 03/02/2020, 10/12/2014, Additional history exists COVID-19 Vaccine Completed 04/03/2022, , 05/09/2021, Additional history exists GARDASIL-HPV IMMUNIZATION SERIES Aged Out No longer eligible based on patient's age to complete this topic MENINGOCOCCAL (MENACTRA/MENVEO) Aged Out No longer eligible based on patient's age to complete this topic documented as of this encounter Medical Devices Implanted Type Area Buying Intern Device Identifier Shelf Expiration Date Model / Serial / Lot Lens Intraoc 21.0 - [id number] - [id number] Implanted:Qty: 1 on 04/20/2019 by Rayshawn Monaco MD at [facility] Left: Eye [employer] 11/29/2023 [id number] / [id number] / [id number] Lens Intraoc 21.0 - [id number] - [id number] Implanted:Qty: 1 on 04/28/2019 by Rayshawn Monaco MD at [facility] Right: Eye [employer]OM[employer] 11/29/2023 [id number] / [id number] / [id number] documented as of this encounter Visit Diagnoses Diagnosis Osteoporosis, unspecified osteoporosis type, unspecified pathological fracture presence documented in this encounter Advance Directives Latest Code Status on File Code Status Date Activated Date Inactivated Comments Full Code 02/10/2019 10:51 AM 02/12/2019 1:41 PM This order reflects the patients wishes and were consensually agreed upon. Care Teams Cigar Sorter Relationship Specialty Start Date End Date Ignacio Coughlin MD [address] [place] [address] [place] [phone] PCP - General Family Medicine 03/28/11 documented as of this encounter
--- OUTSIDE RECORDS SUMMARY | 2023-07-26 05:30 | External Medical Summary ---
Author Name Unknown Address Unknown Organization [id number]:[facility] [place] - [address] [place] [address] [place] [id number] Laboratory Report Ordering Provider Test Date Status JUDIE PIERRE 04/02/2023 10:32:40 Final Normal: <30 mg/g creatinine< br/>High: 30-300 mg/g creatinine
Very High: >300 mg/g creatinine
Nephrotic: >2200 mg/g creatinine Observation Date Value Abnormality Reference (Units ) Status Albumin, Urine 04/02/2023 10:32:40 4.70 (mg/dL) Final Creatinine, Urine 04/02/2023 10:32:40 151 (mg/dL) Final Albumin/Creatinine [Mass Ratio] in Urine 04/02/2023 10:32:40 31 Above high normal <30 (mg/g Creat) Final Performing Location [facility] - [address] [place] [id number]
--- OUTSIDE RECORDS SUMMARY | 2023-07-26 05:30 | External Medical Summary ---
Author Name Unknown Address Unknown Organization [id number]:[facility] [place] - [address] [place] [address] Laboratory Report Ordering Provider Test Date Status JUDIE PIERRE 04/02/2023 10:32:40 Final Observation Date Value Abnormality Reference (Units ) Status LDL, (direct) 04/02/2023 10:32:40 62 <=129 (mg/dL) Final LDL Cholesterol Reference Ra nges (mg/dL):
<70 Target level for high risk ASCVD patient
<100 Optimal for general population
100-129 Near optimal for general population
130-159 Borderline high
160-189 High
>=190 Very high Performing Location LABORATORY [facility] - [address] [place] [address]
--- OUTSIDE RECORDS SUMMARY | 2023-07-26 05:30 | External Medical Summary | Summary of Care ---
Author Name Unknown Organization [facility] Address [address] [place] [place] [address] Phone [phone] Care Team Providers Care Coil Builder Name Role Phone Sulema Coughlin MD Primary Care Provide r Reason for Visit * Reason Comments Outpatient Testing Encounter Details Date Type Department Care Team Description 04/02/2023 Laboratory Laboratory [address] [place] [phone] [facility] [address] [place] [id number] Type 2 diabetes mellitus with hemoglobin A1c goal of less than 7.0% ([facility]); Screening for nephropathy; Dyslipidemia, goal [...] 03/30/2022 No history of diabetic retinopathy in nv st year 03/30/2022 Overview: 03/2022 Age-related osteoporosis [...] 30 Mcg, IM, 12 yrs and above ([facility]) 04/03/2022 HEP A - Hepatitis A (Adult [...] Team Description 04/02/2023 Office Visit Family Medicine Kirtsin Hightower PA-C [address] [place] [address] [place] [phone] 09/12/2023 Imaging Radiology 10/07/2023 Office Visit Family Medicine Sulema Coughlin MD [address] [place] [address] [place] [phone] Pending Results Name Type Priority Associated Diagnoses Date /Time HEMOGLOBIN A1C Lab Routine Type 2 diabetes mellitus with hemoglobin A1c goal of less than 7.0% ([facility]) 04/02/2023 10:32 AM EDT ALBUMIN [...] D LEVEL ONCE IN A LIFETIME-USE SMARTSET# [id number] Completed 08/31/2016, 03/12/2012 Pneumococcal Vaccine: 65+ Years [...] this encounter Medical Devices Implanted Type Area Oil Well Fishing Tool Technician Device Identifier Shelf Expiration Date Model / Serial / Lot Lens Intraoc 21.0 - [id number] - [id number] Implanted:Qty: 1 on 04/20/2019 by Rayshawn Monaco MD at [facility] Left: Eye [employer] 11/29/2023 [id number] / [id number] / [id number] Lens Intraoc 21.0 - [id number] - [id number] Implanted:Qty: 1 on 04/28/2019 by Rayshawn Monaco MD at [facility] Right: Eye [employer]OM[employer] 11/29/2023 [id number] / [id number] / [id number] documented as of this encounter Visit Diagnoses Diagnosis Type 2 diabetes mellitus with hemoglobin A1c goal of less than 7.0% ([facility]) Screening for nephropathy Dyslipidemia, goal LDL below 100 Other and unspecified hyperlipidemia UTI symptoms Other symptoms involving urinary system documented in this encounter Advance Directives Latest Code Status on File Code Status Date Activated Date Inactivated Comments Full Code 02/10/2019 10:51 AM 02/12/2019 1:41 PM This order reflects the patients wishes and were consensually agreed upon. Care Teams Coil Builder Relationship Specialty Start Date End Date Sulema Coughlin MD [address] [place] [address] [place] [phone] PCP - General Family Medicine 03/28/11 documented as of this encounter
--- OUTSIDE RECORDS SUMMARY | 2023-07-26 05:30 | External Medical Summary | Summary of Care ---
Author Name Unknown Organization [facility] Address [address] [place] [place] [address] Phone [phone] Care Team Providers Care Elevator Attendant Name Role Phone Ignacio Coughlin MD Primary Care Provide r Reason for Visit * Reason Comments eRx-Medication Refill Encounter Details Date Type Department Care Team Description 03/29/2023 Refill Family Medicine [address] [phone] Kirstin Hightower PA-C [address] [place] [address] [place] [address] Type 2 diabetes mellitus with hemoglobin A1c goal of less than 7.0% ([facility]) Allergies No known active allergiesdocumented as of this encounter (statuses as of 03/29/2023) Medications Medication Sig Dispensed Refills Start Date [...] EVENING MEAL 180 Tablet 0 03/29/2023 Active metFORMIN HCl 1000 MG Oral Tablet (Glucophage)Indica tions:Type 2 diabetes mellitus with hemoglobin A1c goal of less than 7.0% (HCC) TAKE BY MOUTH 1 TABLET 2 TIMES A DAY WITH MORNING AND EVENING MEALS . 180 Tablet 1 10/02/2022 3 Discontinued documented as of this encounter (statuses as of 03/29/2023) Active Problems Problem Noted Date B12 deficiency 03/30/2022 No history of diabetic retinopathy in nc st year 03/30/2022 Overview: 03/2022 Age-related osteoporosis [...] as of this encounter (statuses as of 03/29/2023) Resolved Problems Problem Noted Date Resolved Date [...] as of this encounter (statuses as of 03/29/2023) Immunizations Name Administration Dates Next Due COVID-19 mRNA, LNP-s, No Pre serve, 2-Dose Series (Moderna) 09/14/2020,08/19/2020 COVID-19, mRNA, LNP-s, PF, B ooster, 100mcg/0.5mg (Moderna) 10/24/2021,05/09/2021 Covid-19, Mrna, Lnp-s, Pf, B ivalent, 30 Mcg, IM, 12 yrs and above ([facility]) 04/03/2022 HEP A - Hepatitis A (Adult [...] encounter Miscellaneous Notes * Telephone Encounter - Kaitlin Simon [facility] - 03/29/2023 11:48 AM EDT RX authorized. Zero refills given until upcoming lab appt. ThanksKaitlin, PharmD Clinical Pharmacist Telepharmacy 03/29/2023, 11:48 AM * Telephone Encounter - Kaitlin Simon [facility] - 03/29/2023 11:48 AM EDT Signed Prescriptions: Disp Refills metFORMIN HCl 1000 MG Oral Tablet (Glucoph*180 Ta*0 Sig: TAKE 1 TABLET BY MOUTH TWICE A DAY WITH MORNING AND EVENING MEAL Authorizing Provider: IGNACIO COUGHLIN Ordering User: KAITLIN SIMON documented in this encounter Plan of Treatment Upcoming Encounters Date Type Specialty Care Team Description 04/02/2023 Laboratory [facility] [address] [place] [phone] 04/02/2023 Office Visit Family Medicine Kirstin Hightower PA-C [address] [place] [address] [place] [address] 09/12/2023 Imaging Radiology 10/07/2023 Office Visit Family Medicine Ignacio Coughlin MD [address] [place] [address] [place] [phone] Scheduled Procedures Name Priority Associated Diagnoses Date/Ti [...] D LEVEL ONCE IN A LIFETIME-USE SMARTSET# [id number] Completed 08/31/2016, 03/12/2012 Pneumococcal Vaccine: 65+ Years [...] this encounter Medical Devices Implanted Type Area Fuel Testing Technician Device Identifier Shelf Expiration Date Model / Serial / Lot Lens Intraoc 21.0 - [id number] - [id number] Implanted:Qty: 1 on 04/20/2019 by Rayshawn Monaco MD at [facility] Left: Eye [employer] 11/29/2023 [id number] / [id number] / [id number] Lens Intraoc 21.0 - [id number] - [id number] Implanted:Qty: 1 on 04/28/2019 by Rayshawn Monaco MD at [facility] Right: Eye BA[employer]CH [employer]OMB 11/29/2023 [id number] / [id number] / [id number] documented as of this encounter Visit Diagnoses Diagnosis Type 2 diabetes mellitus with hemoglobin A1c goal of less than 7.0% (HCC) documented in this encounter Advance Directives Latest Code Status on File Code Status Date Activated Date Inactivated Comments Full Code 02/10/2019 10:51 AM 02/12/2019 1:41 PM This order reflects the patients wishes and were consensually agreed upon. Care Teams Elevator Attendant Relationship Specialty Start Date End Date Ignacio Coughlin MD [address] [place] [address] [place] [phone] PCP - General Family Medicine 03/28/11 documented as of this encounter
--- OUTSIDE RECORDS SUMMARY | 2023-07-26 05:30 | External Medical Summary ---
Author Name Unknown Address Unknown Organization K01:[facility] [place] [address] [facility] [address] Laboratory Report Ordering Provider Test Date Status ELDON OLIVARES 04/02/2023 10:32:40 Final <10,000 colonies/ml mixed no rmal silviano Observation Date Value Abnormality Reference (Units ) Status Bacteria identified in Specimen by Culture 04/02/2023 10:32:40 [id number]^KLEBSIELL A PNEUMONIAE Abnormal Final >100,000 colonies/mL Klebsie lla pneumoniae Performing Location [facility] [place] [address] [facility] [address] Ordering Provider Test Date Status ELDON OLIVARES 04/02/2023 10:32:40 Final Observation Date Value Abnormality Reference (Units ) Status Ampicillin + Sulbactam 04/02/2023 10:32:40 <=2 Susceptible Final Cefazolin 04/02/2023 10:32:40 <=4 Susceptible Final Cefepime susceptibility 04/02/2023 10:32:40 <=1 Susceptible Final Ceftriaxone suceptibility 04/02/2023 10:32:40 <=1 Susceptible Final Ciprofloxacin 04/02/2023 10:32:40 <=0.25 Susceptible Final Due to serious side effects, the FDA has advised against using Ciprofloxacin to treat uncomplicated UTIs and respiratory tract infections unless there are no alternative treatment options. Gentamicin susceptibility 04/02/2023 10:32:40 <=1 Susc eptible Final Nitrofurantoin susceptibility 04/02/2023 10:32:40 32 Susceptible Final Piperacillin + Tazobactamsusceptibility 04/02/2023 10:32:40 <=4 Susceptible Final TMP-SMZ susceptibility 04/02/2023 10:32:40 <=20 Suscept ible Final Test: Culture, Urine, Quanti tative
Specimen Source: Urine, Clean Catch
Specimen Type: Urine
Specimen Date: 04/02/2023 10:32 AM
Result Date: 04/04/2023 10:34 AM
Result Status: Final result
Abnormal: Yes
Resulting Lab: [facility]
[address]
[facility] [address]

CULTURE

>100,000 colonies/mL Klebsiella pneumoniae (Abnormal)

<10,000 colonies/ml mixed normal silviano

SUSCEPTIBILITY

Klebsiella pneumoniae
METHOD MICROBROTH DILUTIONS

AMPICILLIN/SULBACTAM <=2 Susceptible
CEFAZOLIN <=4 Susceptible
CEFEPIME <=1 Susceptible
CEFTRIAXONE <=1 Susceptible
CIPROFLOXACIN <=0.25 Susceptible [1]
GENTAMICIN <=1 Susceptible
NITROFURANTOIN 32 Susceptible
PIPERACILLIN TAZOBACTAM <=4 Susceptible
TRIMETH/SULFAMETHOXAZOLE <=20 Susceptible

[1] Due to serious side effects, the FDA has advised against using
Ciprofloxacin to treat uncomplicated UTIs and respiratory tract infections
unless there are no alternative treatment options.

null Performing Location [facility] [place] [address] [facility] [address]
--- OUTSIDE RECORDS SUMMARY | 2023-07-26 05:30 | External Medical Summary ---
Author Name Unknown Address Unknown Organization K01:[facility] [address] [facility] [address] Laboratory Report Ordering Provider Test Date Status JUDIE PIERRE 04/02/2023 10:32:40 Final Observation Date Value Abnormality Reference (Units ) Status HbA1C 04/02/2023 10:32:40 7.1 Above high normal 4. 0-5.6 (%) Final The use of HbA1c to monitor glycemic status is based on normal hemoglobin and HbA composition. This test should not be used in patients with abnormal hemoglobin that affects the half life of the red blood cell or the in vivo glycation rates. Glucose, estimated average 04/02/2023 10:32:40 157 Above high normal <126 (mg/dL) Fin al Performing Location [facility] [address] [facility] [address]
[2023-07-26] MEDS: PANTOprazole 40 MG in DEXTROSE 5% MINI-B 100 ML IV SCH (05:33)
[2023-07-26] MEDS: CEFEPIME 2,000 MG in SYRINGE 0 ML IV SCH (06:02)
[2023-07-26] MEDS: INSULIN ASPART PER UNIT CHARGE SC SCH ×2 (06:09→16:35)
[2023-07-26] MEDS: TAMSULOSIN HCL 0.4 MG CAP PO ONE (06:12)
[2023-07-26] MEDS: POTASSIUM CHLORIDE CRTAB 20 MEQ TABCR PO STA (06:12)
[2023-07-26 06:19] LABS: Anion Gap 12 (3-11); BUN Creatinine Ratio 14.5 (10-20); Blood Urea Nitrogen 25 mg/dl (6-23); Calcium 7.2 mg/dl (8.6-10.3); Carbon Dioxide 19 mmol/L (21-32); Chloride 102 mmol/L (98-107); Cholesterol 46 mg/dl (0-200); Creatinine Clr Calc Pharmacy 32.7 ml/min; Est GFR (African American) 33.4 ml/min; Est GFR (Non-African American) 28.8 ml/min; Glucose 242 mg/dl (70-99(Fasting)); HDL Cholesterol 22 mg/dl; Magnesium 1.9 mg/dl (1.7-2.4); Phosphorus 1.8 mg/dl (2.5-4.9); Potassium 3.1 mmol/L (3.5-5.1); Sodium 133 mmol/L (136-145); Triglycerides 123 mg/dl (0-150)
[2023-07-26 06:26] LABS: Chol HDL Ratio 2.1 (0-5); VLDL Cholesterol 25 mg/dl (0-30)
--- NOTE | 2023-07-26 06:56 | XRay Report ---
XR chest 1V portable CLINICAL HISTORY: central line COMPARISON STUDY: Chest radiograph and chest CT July 25, 2023. FINDINGS: There is no pneumothorax following placement of a right internal jugular central line. Cath eter tip projects over the mid SVC. No pleural effusion is present. There is mild cardiomegaly. No ev idence for pulmonary edema. No consolidation to suggest pneumonia. IMPRESSION: No pneumothorax following placement of a right internal jugular central line. ACT 112: Negative or not required by law. Electronically signed by: Yahir Odell M.D. 07/26/2023 6:54 AM
--- NOTE | 2023-07-26 06:58 | Fluoroscopy Report ---
FL KUB CLINICAL HISTORY: RT CYSTO WITH STENT COMPARISON STUDY: CT of the abdomen and pelvis July 25, 2023. FLUOROSCOPY TIME: 4 seconds. Ka, r: 1.1119 mGy FLUOROSCOPIC IMAGES: 3 FINDINGS: Fluoroscopy was provided during right retrograde pyelogram with right ureteral stent insert ion. Proximal aspect of the stent is within the right collecting system. Gallstones within the gallbl adder are incidentally noted. IMPRESSION: Fluoroscopy provided during right retrograde pyelogram with right ureteral stent inserti on. ACT 112: Negative or not required by law. Electronically signed by: Yahir Odell M.D. 07/26/2023 6:56 AM
[2023-07-26] MEDS ORDERED: POTASSIUM PHOS 3 MMOL/1 ML INFUSION IV STA (07:05)
[2023-07-26] MEDS: PLASMA-LYTE A 1,000 ML IV SCH (07:20)
[2023-07-26 07:21] LABS: Basophils # (auto) 0.02 K/uL (0.00-0.20); Basophils % (auto) 0.2 %; Dohle Bodies 3+; Eosinophils # (auto) 0.03 K/uL (0.00-0.50); Eosinophils % (auto) 0.3 %; Hematocrit (blood only) 31.5 % (37.0-47.0); Hemoglobin 10.4 g/dl (12.0-16.0); Immature Granulocytes # (auto) 0.75 K/uL (0.01-0.20); Immature Granulocytes % (auto) 8.2 %; Lymphocytes # (auto) 0.25 K/uL (1.20-3.40); Lymphocytes % (auto) 2.7 %; Mean Corpuscular Hemoglobin 29.6 pg (25.0-34.0); Mean Corpuscular Volume 89.7 fL (80.0-100.0); Mean Platelet Volume 11.1 fL (9.4-12.4); Monocytes # (auto) 0.13 K/uL (0.11-0.59); Monocytes % (auto) 1.4 %; Neutrophils # (auto) 7.99 K/uL (1.40-6.50); Neutrophils % (auto) 87.2 %; Platelet Count 99 K/uL (130-400); Platelet Estimate Decreased (Normal); RDW Coefficient of Variation 13.5 % (11.5-14.5); RDW Standard Deviation 44.2 fL (36.4-46.3); Red Blood Count 3.51 M/uL (4.20-5.40); Toxic Vacuolation 1+; White Blood Count 9.17 K/ul (4.8-10.8)
--- NOTE | 2023-07-26 07:41 | XRay Report ---
XR chest 1V portable CLINICAL HISTORY: neuro deficit, acute stroke suspected COMPARISON STUDY: No previous studies for comparison. FINDINGS: Lung volumes are normal. There is no consolidation to suggest pneumonia. Linear bibasilar d ensities favor atelectasis. There is no pneumothorax or pleural effusion. Cardiac size is normal. Med iastinal contours are normal. There is no evidence for pulmonary edema. IMPRESSION: No acute cardiopulmonary findings. ACT 112: Negative or not required by law. Electronically signed by: Yahir Odell M.D. 07/26/2023 7:40 AM
[2023-07-26] MEDS: POTASSIUM PHOSPHATE 24 MMOL in SODIUM CHLORIDE 0.9% 500 ML IV ONE (07:54)
[2023-07-26] MEDS ORDERED: LACTATED RINGER'S 1,000 ML IV SCH (09:00)
--- NOTE | 2023-07-26 09:01 | Gastrointestinal Consultation ---
Date of Consultation July 26, 2023 Assessment & Plan (1) Septic shock: (2) Nephrolithiasis: (3) COVID: (4) Anemia: Pt is a 73 yo female w PMHx of HTN, UTI, HCV, osteoporosis, HLD who is admitted w septic shock requiring vasopressor support, COVID +, R ureteral stone w hydronephrosis s/p R ureteral stent placement. Initially was confused but stroke ruled out. There was report of melena and anemia from admitting physician but pt does not display any symptoms of GI bleeding nor was any reported to nurses. Blood ct stable. Abd exam w mild TTP over epigastric area but otherwise benign. - Can stop PPI gtt, cover with IV BID push - May start CL diet and advance as tolerated from our standpoint - Monitor blood ct and transfuse prn - No plans for endoscopic eval; pls recall GI prn if any overt GI bleeding noted Supervising Physician Co-Signing Physician Notes Saw and evaluated the patient, GI was consulted for question of melena on admission. Of note the patient was admitted from sepsis as result of problems from her urinary tract. Overnight there has been no occurrence of melena, bright blood per rectum or hematemesis. Furthermore the patient reports having no melena at home. Recommendations No plan for endoscopic intervention GI to sign off History of Present Illness Reason for Consultation: UGI bleed Requesting Physician: Dr. Juan David Larios Attending Physician: Dr. Zoraida Schmid History of Present Illness Pt is a 73 yo female w PMHx of HTN, UTI, HCV, osteoporosis, HLD who is admitted w septic shock requiring vasopressor support, COVID +, R ureteral stone w hydronephrosis s/p R ureteral stent placement. Initially was confused but stroke ruled out. Admitting physician reported melena thus GI was consulted. Pt is currently AAOx3. She was having nausea and vomiting before admission but denies any hematemesis or coffee ground emesis. Denies any black tarry stools or rectal bleeding. She denies any current n/v but has mild epigastric abd pain on exam. RN also confirmed no signs of GI bleeding. Noted blood ct stable overnight, no coagulopathy Takes Aleve occasionally. Denies tobacco. ETOH once a week. CT abd/pelvis w contrast: 1. Mild right hydronephrosis, secondary to a 2 x 5 mm stone in the mid ureter. There also may be right pyelonephritis, correlate clinically; no perinephric abscess. 2. Collapsed colon, limits evaluation, cannot rule out colitis, correlate clinically to exclude this entity. 3. Cholelithiasis without acute cholecystitis. Denies hx of EGD. Previous hx of colonoscopies last done in 2019, + colon polyps, repeat scheduled 08/14/2023. Allergies Allergy/AdvReac Type Severity Reaction Status Date / Time No Known Allergies Allergy Verified 07/25/23 19:50 Home Medications Medication Instructions Recorded Confirmed Type lisinopril 10 mg tablet 10 mg PO QAM 11/14/20 07/25/23 History atorvastatin 40 mg tablet 40 mg PO QAM 07/25/23 07/25/23 History calcium carbonate 1,000 mg-vitamin 1 tab PO DAILY 07/25/23 07/25/23 History D3 20 mcg (800 unit) tablet cyanocobalamin (vitamin B-12) 1,000 mcg PO QAM 07/25/23 07/25/23 History 1,000 mcg tablet ibandronate 150 mg tablet 150 mg PO .EVERY 30 DAYS 07/25/23 07/25/23 History metformin 1,000 mg tablet 1,000 mg PO BIDWMEAL 07/25/23 07/25/23 History venlafaxine 150 mg 150 mg PO DAILY 07/25/23 07/25/23 History capsule,extended release 24 hr Patient History Medical History History of COVID-19 History of colon polyps Anxiety HTN (hypertension) Surgical History S/P wrist surgery History of colonoscopy History of hysterectomy History of tonsillectomy Family History Grandmother Family history of diabetes mellitus Family history of colon cancer Grandfather Family history of colon cancer Aunt Family history of colon cancer Uncle Family history of colon cancer Social History Smoking Status: Current some day smoker Tobacco Type: Cigarettes Second Hand Exposure: No; Do You Dip or Chew Tobacco: No; Hx Alcohol Use: No Hx Substance Use: No Preferred Language: Mohawk Communication Ability: Effective 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 Required: No Beliefs That Will Affect Care: None Current Living Situation: Family Current Living Situation Comment: Pt's grandsonIlir lives with her Feels Safe at Home: Yes Assistive Devices: None Review of Systems Review of Systems: All systems reviewed & are unremarkable except as noted in HPI & below Physical Exam Constitutional: WD/WN, vitals as above + frail appearing, well groomed, cooperative and comfortable Eyes: PERRL, conjunctivae normal, anicteric sclerae ENMT: external ear and nose normal, oropharynx normal Respiratory: normal respiratory effort, lungs clear to auscultation Cardiovascular: RRR, no murmur, no edema Gastrointestinal (Abdomen): Soft, TTP epigastric, BS hypoactive Skin: no rashes, warm and dry no jaundice Psychiatric: A+Ox3, euthymic affect Lymphatic: no lymphedema Results & Data Vital Signs (Past 12 Hours) Vital Signs Temp Pulse Pulse Resp BP BP BP 07/26/23 08:30 112 H 20 99/67 L 07/26/23 08:16 120 H 20 117/64 07/26/23 08:11 112 H 23 105/68 07/26/23 07:43 115 H 21 99/65 L 07/26/23 07:15 115 H 19 105/62 07/26/23 07:00 36.6 C 115 H 17 102/59 L 07/26/23 06:47 115 H 07/26/23 06:47 07/26/23 06:38 117 H 18 99/81 L 07/26/23 06:24 36.3 C L 07/26/23 06:22 121 H 19 102/60 07/26/23 04:57 117 H 19 98/63 L 07/26/23 04:47 07/26/23 04:47 118 H 07/26/23 04:40 116 H 18 90/60 L 07/26/23 04:35 115 H 16 71/47 L 07/26/23 04:30 114 H 20 67/46 L 07/26/23 04:00 07/26/23 03:40 117 H 71/49 L 07/26/23 03:22 115 H 16 70/43 L 67/49 L 07/26/23 02:43 07/26/23 02:19 37 C 119 H 20 89/59 L 07/26/23 02:06 37 C 118 H 20 94/60 L 07/26/23 01:56 36.9 C 116 H 18 87/57 L 07/26/23 00:22 36.6 C 07/26/23 00:00 127 H 23 07/26/23 00:00 130/71 07/25/23 23:56 123 H 24 07/25/23 23:56 110/73 07/25/23 23:51 129 H 07/25/23 23:42 104/70 07/25/23 23:42 129 H 26 H 07/25/23 23:31 81/54 L 07/25/23 23:31 127 H 24 07/25/23 23:30 127 H 24 07/25/23 23:15 103/73 07/25/23 23:15 127 H 24 07/25/23 23:00 127 H 23 07/25/23 22:31 136 H 21 07/25/23 22:02 142 H 27 H 160/86 H 07/25/23 22:00 144 H 33 H 07/25/23 21:32 07/25/23 21:30 180 H 50 H 101/60 07/25/23 21:29 181 H 37 H Pulse Ox Pulse Ox O2 Del Method O2 Del Method O2 Flow Rate O2 Flow Rate 07/26/23 08:30 95 Nasal Cannula 5 07/26/23 08:16 97 Nasal Cannula 5 07/26/23 08:11 98 Nasal Cannula 5 07/26/23 07:43 98 Nasal Cannula 5 07/26/23 07:15 96 Nasal Cannula 5 07/26/23 07:00 97 Nasal Cannula 5 07/26/23 06:47 07/26/23 06:47 Nasal Cannula 4 07/26/23 06:38 97 Nasal Cannula 4 07/26/23 06:24 07/26/23 06:22 96 Nasal Cannula 4 07/26/23 04:57 95 Nasal Cannula 4 07/26/23 04:47 99 Nasal Cannula 4 07/26/23 04:47 07/26/23 04:40 100 Nasal Cannula 4 07/26/23 04:35 99 Nasal Cannula 4 07/26/23 04:30 97 Nasal Cannula 4 07/26/23 04:00 Nasal Cannula 4 07/26/23 03:40 07/26/23 03:22 97 Nasal Cannula 4 07/26/23 02:43 Room Air 07/26/23 02:19 96 Room Air 07/26/23 02:06 95 Room Air 07/26/23 01:56 98 Nasal Cannula 4 07/26/23 00:22 07/26/23 00:00 95 07/26/23 00:00 07/25/23 23:56 96 07/25/23 23:56 07/25/23 23:51 07/25/23 23:42 07/25/23 23:42 97 07/25/23 23:31 07/25/23 23:31 94 07/25/23 23:30 97 07/25/23 23:15 07/25/23 23:15 98 07/25/23 23:00 97 07/25/23 22:31 96 07/25/23 22:02 97 07/25/23 22:00 07/25/23 21:32 97 Nasal Cannula 4 07/25/23 21:30 75 L Room Air 07/25/23 21:29 89 L
[2023-07-26 09:13] LABS: Estimated Average Glucose 157 mg/dl; Hemoglobin A1C 7.1 % (4.5-5.6)
[2023-07-26 09:15] LABS: A calco-baum cmplx NotReported Not Detected (NotDetected); Bact fragilis Not Reported Not Detected (NotDetected); Blood Culture Id Panel See PCR Comment (NotDetected); C auris Not Reported Not Detected (NotDetected); CTX-M Resistant Gene Not Detected (NotDetected); Calbicans Not Reported Not Detected (NotDetected); Candida glabrata Not Reported Not Detected (NotDetected); Candida krusei Not Reported Not Detected (NotDetected); Cneoformans/gatti Not Reported Not Detected (NotDetected); Cparapsilosis Not Reported Not Detected (NotDetected); E cloacae compx Not Reported Not Detected (NotDetected); Efaecalis Not Reported Not Detected (NotDetected); Efaecium Not Reported Not Detected (NotDetected); Enterobacterales DETECTED (NotDetected); Enterobacterales Not Reported DETECTED (NotDetected); Escherichia coli Not Reported Not Detected (NotDetected); H influenzae Not Reported Not Detected (NotDetected); IMP Resistant Gene Not Detected (NotDetected); K aerogenes Not Reported Not Detected (NotDetected); KPC Resistant Gene Not Detected (NotDetected); Koxytoca Not Reported Not Detected (NotDetected); Lmonocyt Not Reported Not Detected (NotDetected); N meningitidis Not Reported Not Detected (NotDetected); NDM Resistant Gene Not Detected (NotDetected); OXA 48 Like Resistant Gene Not Detected (NotDetected); P aeruginosa Not Reported Not Detected (NotDetected); Proteus spp Not Reported Not Detected (NotDetected); Salmonella spp Not Reported Not Detected (NotDetected); Smarcescens Not Reported Not Detected (NotDetected); Staph lugdunensis Not Reported Not Detected (NotDetected); Staph spp. Not Reported Not Detected (NotDetected); Staphaureus Not Reported Not Detected (NotDetected); Staphepi Not Reported Not Detected (NotDetected); Stenmaltophilia Not Reported Not Detected (NotDetected); Strep agal(GrpB) Not Reported Not Detected (NotDetected); Strep pneum Not Reported Not Detected (NotDetected); Strep pyog (GrpA) Not Reported Not Detected (NotDetected); Strep spp Not Reported Not Detected (NotDetected); VIM Resistant Gene Not Detected (NotDetected); mcr-1 Colistin Resistant Gene Not Detected (NotDetected)
[2023-07-26 09:22] LABS: Klebsiella pneumoniae group DETECTED (NotDetected); Kpneumoniae grp Not Reported DETECTED (NotDetected)
[2023-07-26] MEDS: ATORVASTATIN 40 MG TAB PO SCH (10:17)
[2023-07-26] MEDS: VENLAFAXINE HCL XR 150 MG CAPXR PO SCH (10:17)
[2023-07-26] MEDS: VASOPRESSIN 20 UNITS in 0.9 % SODIUM CHLORIDE 100 ML IV SCH (12:15)
[2023-07-26] MEDS ORDERED: Nursing to Pharmacy Communication SCH (12:45)
--- NOTE | 2023-07-26 12:59 | Urology Progress Note ---
Date of Service July 26, 2023 Assessment & Plan (1) Ureterolithiasis: (2) Sepsis: Plan 73yo F admitted to the ICU with sepsis secondary to an infected right ureteral stone POD # 0 s/p cystoscopy and right ureteral stent placement Afebrile, tachycardic, on vasopressin. Labs reviewed - wbc 9.17, creatinine 1.73. Cominue to trend. Urine culture pending; Blood cultures prelim 1/4 gram negative bacilli Joshi draining appropriatelyurine is clear yellow. Continue broad-spectrum antibiotics and narrow as culture data becomes available Continue supportive care Maintain Joshi catheter for maximum drainage of the urinary tract Urology will follow. Admission and Anticipated Discharge Date Admission Date: July 26, 2023 Subjective Patient examined at bedside in the ICU today. Awake, resting in bed on arrival. No acute distress. On isolation for COVID. Joshi intact and draining yellow urine. She denies any pain or discomfort at present. Review of Systems Constitutional: as per Subjective / HPI Genitourinary: as per Subjective / HPI Physical Exam Constitutional: no acute distress Respiratory: no respiratory distress and no labored breathing Neurologic: awake Psychiatric: Orientation: alert and cooperative Genitourinary: Joshi catheter intact Results & Data Vital Signs (Past 12 Hours) Vital Signs Temp Pulse Pulse Resp BP BP BP 07/26/23 12:45 37.5 C 117 H 24 117/65 07/26/23 12:15 37.5 C 119 H 25 H 130/76 07/26/23 12:01 37.5 C 120 H 23 103/70 07/26/23 12:00 37.5 C 122 H 25 H 103/70 07/26/23 11:53 37.5 C 120 H 24 74/58 L 07/26/23 11:52 37.5 C 120 H 25 H 63/27 L 07/26/23 11:50 37.5 C 118 H 24 64/53 L 07/26/23 11:46 37.5 C 118 H 24 78/62 L 07/26/23 11:33 37.5 C 120 H 23 101/49 L 07/26/23 11:33 37.5 C 118 H 25 H 101/49 L 07/26/23 11:15 123 H 20 104/54 L 07/26/23 11:11 120 H 16 87/52 L 07/26/23 11:00 121 H 21 87/52 L 07/26/23 10:30 113 H 22 91/58 L 07/26/23 10:15 113 H 23 100/63 07/26/23 09:59 112 H 20 100/59 L 07/26/23 09:28 115 H 20 94/53 L 07/26/23 09:15 114 H 22 99/63 L 07/26/23 09:00 115 H 21 99/63 L 07/26/23 08:45 112 H 21 101/66 07/26/23 08:30 112 H 21 99/67 L 07/26/23 08:30 112 H 20 99/67 L 07/26/23 08:16 120 H 20 117/64 07/26/23 08:11 112 H 23 105/68 07/26/23 07:43 115 H 21 99/65 L 07/26/23 07:30 07/26/23 07:15 115 H 19 105/62 07/26/23 07:00 36.6 C 115 H 17 102/59 L 07/26/23 06:47 115 H 07/26/23 06:47 07/26/23 06:38 117 H 18 99/81 L 07/26/23 06:24 36.3 C L 07/26/23 06:22 121 H 19 102/60 07/26/23 04:57 117 H 19 98/63 L 07/26/23 04:47 07/26/23 04:47 118 H 07/26/23 04:40 116 H 18 90/60 L 07/26/23 04:35 115 H 16 71/47 L 07/26/23 04:30 114 H 20 67/46 L 07/26/23 04:00 07/26/23 03:40 117 H 71/49 L 07/26/23 03:22 115 H 16 70/43 L 67/49 L 07/26/23 02:43 07/26/23 02:19 37 C 119 H 20 89/59 L 07/26/23 02:06 37 C 118 H 20 94/60 L 07/26/23 01:56 36.9 C 116 H 18 87/57 L Pulse Ox Pulse Ox O2 Del Method O2 Del Method O2 Flow Rate O2 Flow Rate 07/26/23 12:45 94 Room Air 07/26/23 12:15 95 Room Air 07/26/23 12:01 95 Room Air 07/26/23 12:00 94 Room Air 07/26/23 11:53 94 Nasal Cannula 2 07/26/23 11:52 93 Nasal Cannula 2 07/26/23 11:50 95 Nasal Cannula 2 07/26/23 11:46 93 Nasal Cannula 2 07/26/23 11:33 94 Nasal Cannula 2 07/26/23 11:33 94 Room Air 07/26/23 11:15 93 Room Air 07/26/23 11:11 94 Nasal Cannula 2 07/26/23 11:00 95 Room Air 07/26/23 10:30 95 Room Air 07/26/23 10:15 94 Room Air 07/26/23 09:59 99 Nasal Cannula 2 07/26/23 09:28 98 Nasal Cannula 2 07/26/23 09:15 97 Nasal Cannula 2 07/26/23 09:00 98 Nasal Cannula 2 07/26/23 08:45 98 Nasal Cannula 2 07/26/23 08:30 98 Nasal Cannula 5 07/26/23 08:30 95 Nasal Cannula 5 07/26/23 08:16 97 Nasal Cannula 5 07/26/23 08:11 98 Nasal Cannula 5 07/26/23 07:43 98 Nasal Cannula 5 07/26/23 07:30 Nasal Cannula 5 07/26/23 07:15 96 Nasal Cannula 5 07/26/23 07:00 97 Nasal Cannula 5 07/26/23 06:47 07/26/23 06:47 Nasal Cannula 4 07/26/23 06:38 97 Nasal Cannula 4 07/26/23 06:24 07/26/23 06:22 96 Nasal Cannula 4 07/26/23 04:57 95 Nasal Cannula 4 07/26/23 04:47 99 Nasal Cannula 4 07/26/23 04:47 07/26/23 04:40 100 Nasal Cannula 4 07/26/23 04:35 99 Nasal Cannula 4 07/26/23 04:30 97 Nasal Cannula 4 07/26/23 04:00 Nasal Cannula 4 07/26/23 03:40 07/26/23 03:22 97 Nasal Cannula 4 07/26/23 02:43 Room Air 07/26/23 02:19 96 Room Air 07/26/23 02:06 95 Room Air 07/26/23 01:56 98 Nasal Cannula 4 PG Care Time/CCT Total # of Minutes Spent Total Time Spent with Patient: Total time spent is greater than 50% in coordination of care (as documented) at patient's floor/unit and/or counseling patient: Coding Level of Care Code None Diagnoses Ureterolithiasis N20.1 Sepsis A41.9; R65.20; N17.9 Acute renal failure type: unspecified Sepsis acute organ dysfunction status: with acute organ dysfunction Sepsis type: sepsis due to unspecified organism Severe sepsis acute organ dysfunction type: acute renal failure Severe sepsis shock status: without septic shock (2) Sepsis Acute renal failure type: unspecified Sepsis acute organ dysfunction status: with acute organ dysfunction Sepsis type: sepsis due to unspecified organism Severe sepsis acute organ dysfunction type: acute renal failure Severe sepsis shock status: without septic shock Qualified Code(s): A41.9 - Sepsis, unspecified organism; R65.20 - Severe sepsis without septic shock; N17.9 - Acute kidney failure, unspecified
[2023-07-26] MEDS: ACETAMINOPHEN 1000 MG/100 ML IV IV ONE (14:01)
[2023-07-26] MEDS: FUROSEMIDE 40 MG/4 ML VIAL IV ONE ×2 (14:55→14:57)
[2023-07-26 15:01] LABS: BUN Creatinine Ratio 15.8 (10-20); Calcium 7.1 mg/dl (8.6-10.3); Creatinine Clr Calc Pharmacy 33.1 ml/min; Est GFR (African American) 33.8 ml/min; Est GFR (Non-African American) 29.2 ml/min; Potassium 4.2 mmol/L (3.5-5.1)
--- NOTE | 2023-07-26 15:28 | XRay Report ---
XR chest 1V portable CLINICAL HISTORY: f/u TECHNIQUE: Single frontal radiograph of the chest was obtained. Comparison: Comparison is made to chest radiograph 07/26/2023 FINDINGS: Lines and tubes are stable. The cardiomediastinal silhouette is normal. The lungs are clear. No evide nce of pleural effusion or pneumothorax. IMPRESSION: No acute chest disease. ACT 112: Negative or not required by law. Electronically signed by: Jomar Palomo M.D. 07/26/2023 3:27 PM
[2023-07-26] MEDS: POTASSIUM CHLORIDE / WTR 20 MEQ/100 ML PLCT IV ONE (15:39)
--- NOTE | 2023-07-26 16:33 | Communication Note ---
Date of Service: July 26, 2023 Patient was seen and examined at bedside. 73-year-old lady with PMH of HTN, HLD, T2DM, HCV status posttreatment, anxiety/mood disorder was brought in with complaint of confusion for about 1 day duration. She could not get words out. Of note, she had home test for COVID-19 positive about 2 weeks ago FEATHERER, had self-limited cough symptoms. Also she had noted right flank pain complaints since about 1 week ago FEATHERER associated with not feeling well & a/w poor appetite. She is being managed for the following: ADMITTING IMANGINGS: Admitting CXR with no acute finding. Admitting CT head with no acute finding. Admitting CTA head WNL. Admitting CTA neck with moderate left ICA stenosis and possible high risk/ulcerated plaque in this location. Admitting CTA chest with no PE. Admitting CTAP with mild right hydronephrosis, secondary to 2 into 5 mm stone in the mid ureter. Concern for right pyelonephritis. No perinephric abscess. Cholelithiasis without acute cholecystitis. Complicated UTI Urolithiasis and obstructive uropathy Urosepsis Severe sepsis POA: Secondary to above. Respiratory rate/pulse rate/WBC elevated at presentation. Lactate and procalcitonin elevated at presentation. Septic shock: Patient's blood pressure did not improve despite aggressive fluid resuscitation, was transferred to ICU for pressor support requirement at admission. Likely metabolic encephalopathy: Secondary to above Gram-negative bacteremia: 07/25 blood culture positive for gram-negative bacilli 1 of 4 bottles. Follow final results. Patient presented with using, about a week worth of right flank pain. Poor appetite and not feeling well. UA suggestive of UTI, admitting CTAP with renal stone and concern for right pyelonephritis Urology on board, status post cystoscopy and right retrograde pyelogram/right ureteral stent placement 07/26/2023 Patient was started on cefepime 07/26, continue. Patient needing pressor support in ICU. Follow admitting blood and urine culture. Being managed in ICU. Follow lactic acid trend in response to pressor support Monitor / replete electrolytes. New onset anemia Likely UGIB Prior hemoglobin level 13.9, admitting hemoglobin 11.1 Hemoccult positive melanotic stool noted at the ER GI evaluated, PPI drip changed to twice daily, may start clear liquid diet and advance as tolerated Monitor H&H and transfuse as needed. Will likely need follow-up with GI as an outpatient. Anemia workup, transfuse PRBC if hemoglobin less than 8 and or for symptomatic anemia Aphasia symptoms at presentation: Possible stroke versus metabolic encephalopathy. Patient was patient was lethargic and tired but oriented at bedside exam. No focal weakness noted. Head and neck imagings reviewed as above. Neurology consulted, will await recommendation. Continue neurochecks. Update A1c and LDL. Acute kidney injury: Admitting creatinine of 1.6, past creatinine 0.89. Status post IV fluid, currently requiring pressor support. Likely prerenal secondary to septic shock. Labs in AM. Likely type II NSTEMI: Troponin elevated likely secondary to acute sepsis. Patient with no chest pain. EKG with sinus tachycardia. No acute ST or T changes. Echo with EF of 50 to 55%, no interatrial septum or sound physiology. No regional wall motion abnormalities. Other chronic medical conditions: Continue with/resume home meds as and when able. Hypertension, BP on the lower side secondary to sepsis. Hold home blood pressure medications. hyperlipidemia, on statin Rx. Continue DM2 on oral medications, reasonable control as of recent hemoglobin A1c of 7.1 last March 2023 HCV status post Rx Recent COVID-19 illness from 2 weeks ago, monitor respiratory symptoms. DVT prophylaxis. SCDs Re: UGIB Full code Patient daughter Ms. Delores Barney, contact #[phone]. Text document was generated using [employer] voice recognition software. It may contain grammatical or spelling errors. Kindly contact undersigned for clarification of any documentation item in question.
[2023-07-26] MEDS: MoRPHine SULFATE 2 MG/ML CARP IV STA (17:19)
--- NOTE | 2023-07-26 17:23 | Electrocardiogram Report ---
Test Reason : Blood Pressure : / mmHG Vent. Rate : 109 BPM Atrial Rate : 109 BPM P-R Int : 132 ms QRS Dur : 076 ms QT Int : 342 ms P-R-T Axes : 078 080 073 degrees QTc Int : 460 ms Sinus tachycardia Otherwise normal ECG When compared with ECG of 18-NOV-2020 16:06, ST no longer depressed in Anterior leads Confirmed by Shelton Crenshaw ([id number]) on 07/26/2023 5:22:42 PM Referred By: REFERRED SELF Confirmed By:Kalia Crenshaw
--- NOTE | 2023-07-26 19:28 | Neurology Consultation ---
Date of Consultation July 26, 2023 Assessment & Plan (1) Encephalopathy: Plan 73 y/o female with history of HTN, HLD, and DM that presented with encephalopathy and was found to have septic shock requiring vasopressor support, UTI, and right hydronephrosis with ureteral stone s/p ureteral stent. Suspect toxic metabolic encephalopathy but unable to rule out stroke. When able, would obtain MRI brain. 1. MRI brain when able 2. LDL 3. antiplatelets have been held by primary due to concern for GI bleed 4. Atorvastatin [address]/PT/OT 6. Neurochecks q4 hours 7. Telemetry 8. Zio patch on discharge if MRI positive for stroke Telehealth Consultation Telehealth Information Telehealth Information: I performed this visit using a real-time telehealth connection between my location and the patients location ([facility]). After connecting through interactive tele-video, patient was identified by name and date of and/or wristband check.Patient (or authorized healthcare inbound customer service representative) was informed that this was a telemedicine visit and it was being conducted confidentially over secure lines. My office door was closed and no one else was present in the room with me.Patient (or authorized healthcare inbound customer service representative) provided consent to proceed with the visit, expressed an understanding of privacy and security of the telemedicine visit, and gave per mission to have a hospital inbound customer service representative in the room in order to assist with the visit and to conduct portions of the visit, as needed. I informed the patient (or authorized healthcare inbound customer service representative) that I reviewed their record and presented the opportunity for them to ask any questions regarding the visit today. The patient agreed to participate. History of Present Illness Reason for Consultation: aphasia Requesting Physician: Dr. Jorge Mayo Attending Physician: Juan David Larios MD History of Present Illness 73 y/o female that presented with altered mental status. She states that she starting having emesis daily about ten days ago. Her grandson decided to take her to urgent care on yesterday. At urgent care, they were concerned that she was confused and she was brought to the ED further evaluation. In the emergency department, there was concern that she was having difficulty with speech. She did feel that her speech seemed abnormal, although she is unable to describe this. She denies any weakness, numbness/tingling, vision changes, or gait impairment prior to admission. At admission, she was found to have septic shock and urinary tract infection, for which she had been admitted to the intensive care unit. Allergies Allergy/AdvReac Type Severity Reaction Status Date / Time No Known Allergies Allergy Verified 07/25/23 19:50 Home Medications Medication Instructions Recorded Confirmed Type lisinopril 10 mg tablet 10 mg PO QAM 11/14/20 07/25/23 History atorvastatin 40 mg tablet 40 mg PO QAM 07/25/23 07/25/23 History calcium carbonate 1,000 mg-vitamin 1 tab PO DAILY 07/25/23 07/25/23 History D3 20 mcg (800 unit) tablet cyanocobalamin (vitamin B-12) 1,000 mcg PO QAM 07/25/23 07/25/23 History 1,000 mcg tablet ibandronate 150 mg tablet 150 mg PO .EVERY 30 DAYS 07/25/23 07/25/23 History metformin 1,000 mg tablet 1,000 mg PO BIDWMEAL 07/25/23 07/25/23 History venlafaxine 150 mg 150 mg PO DAILY 07/25/23 07/25/23 History capsule,extended release 24 hr Patient History Medical History History of COVID-19 History of colon polyps Anxiety HTN (hypertension) Surgical History S/P wrist surgery History of colonoscopy History of hysterectomy History of tonsillectomy Family History Grandmother Family history of diabetes mellitus Family history of colon cancer Grandfather Family history of colon cancer Aunt Family history of colon cancer Uncle Family history of colon cancer Social History Smoking Status: Current some day smoker Tobacco Type: Cigarettes Second Hand Exposure: No; Do You Dip or Chew Tobacco: No; Hx Alcohol Use: No Hx Substance Use: No Preferred Language: [place] Communication Ability: Effective Bunghole Borer Required: No Beliefs That Will Affect Care: None Current Living Situation: Family Current Living Situation Comment: Pt's grandsonIlir lives with her Feels Safe at Home: Yes Assistive Devices: None Physical Exam AAO X 3 No aphasia or dysarthria. Able to name, repeat, speaks in fluent sentences VFF gorssly intact EOMI, no nystagmus Facial sensations intact No facial asymmetry Tongue protrudes midline Motor: Moves all four extremities antigravity with no drift Sensation: Intact to light touch throughout Cerebellar: FTN inatct Results & Data Vital Signs (Past 12 Hours) Vital Signs Temp Pulse Pulse Resp BP BP Pulse Ox 07/26/23 18:30 37.0 C 111 H 21 92/63 L 95 07/26/23 18:15 37.0 C 111 H 21 91/47 L 97 07/26/23 18:00 37.1 C 109 H 21 90/48 L 96 07/26/23 17:50 37.1 C 117 H 23 106/77 96 07/26/23 17:45 37.1 C 112 H 21 83/46 L 97 07/26/23 17:30 37.2 C 112 H 21 92/52 L 98 07/26/23 17:30 37.2 C 112 H 22 92/52 L 97 07/26/23 17:25 37.2 C 115 H 20 95/57 L 99 07/26/23 17:15 37.2 C 116 H 24 90/69 L 99 07/26/23 17:01 37.3 C 110 H 23 111/66 100 07/26/23 17:00 37.4 C 111 H 23 111/66 100 07/26/23 16:45 37.4 C 115 H 25 H 125/81 100 07/26/23 16:38 37.5 C 112 H 24 105/74 100 07/26/23 16:15 37.6 C H 110 H 22 98/72 L 100 07/26/23 16:00 37.6 C H 108 H 23 107/70 100 07/26/23 15:45 37.6 C H 108 H 23 102/64 100 07/26/23 15:31 37.7 C H 113 H 24 99/65 L 100 07/26/23 15:31 37.7 C H 111 H 21 87/61 L 100 07/26/23 15:15 37.8 C H 114 H 22 105/63 99 07/26/23 15:08 37.8 C H 112 H 24 103/60 99 07/26/23 15:00 37.7 C H 112 H 23 91/62 L 99 07/26/23 14:45 37.7 C H 115 H 23 101/66 99 07/26/23 14:30 120 H 23 100 07/26/23 14:30 37.7 C H 118 H 24 114/68 98 07/26/23 14:15 37.7 C H 119 H 23 114/69 99 07/26/23 14:00 37.7 C H 126 H 26 H 130/88 96 07/26/23 13:45 37.8 C H 135 H 25 H 154/76 H 95 07/26/23 13:30 37.7 C H 124 H 28 H 114/75 94 07/26/23 13:15 37.7 C H 123 H 21 133/99 95 07/26/23 13:00 37.7 C H 117 H 22 115/82 94 07/26/23 12:45 37.6 C H 116 H 28 H 117/65 92 07/26/23 12:45 37.5 C 117 H 24 117/65 94 07/26/23 12:15 37.5 C 119 H 25 H 130/76 95 07/26/23 12:01 37.5 C 120 H 23 103/70 95 07/26/23 12:00 37.5 C 122 H 25 H 103/70 94 07/26/23 11:53 37.5 C 120 H 24 74/58 L 94 07/26/23 11:52 37.5 C 120 H 25 H 63/27 L 93 07/26/23 11:50 37.5 C 118 H 24 64/53 L 95 07/26/23 11:46 37.5 C 118 H 24 78/62 L 93 07/26/23 11:33 37.5 C 120 H 23 101/49 L 94 07/26/23 11:33 37.5 C 118 H 25 H 101/49 L 94 07/26/23 11:15 123 H 20 104/54 L 93 07/26/23 11:11 120 H 16 87/52 L 94 07/26/23 11:00 121 H 21 87/52 L 95 07/26/23 10:30 113 H 22 91/58 L 95 07/26/23 10:15 113 H 23 100/63 94 07/26/23 09:59 112 H 20 100/59 L 99 07/26/23 09:28 115 H 20 94/53 L 98 07/26/23 09:15 114 H 22 99/63 L 97 07/26/23 09:00 115 H 21 99/63 L 98 07/26/23 08:45 112 H 21 101/66 98 07/26/23 08:30 112 H 21 99/67 L 98 07/26/23 08:30 112 H 20 99/67 L 95 07/26/23 08:16 120 H 20 117/64 97 07/26/23 08:11 112 H 23 105/68 98 07/26/23 07:43 115 H 21 99/65 L 98 07/26/23 07:30 O2 Del Method O2 Flow Rate FiO2 07/26/23 18:30 BiPAP 30 07/26/23 18:15 BiPAP 30 07/26/23 18:00 BiPAP 30 07/26/23 17:50 BiPAP 30 07/26/23 17:45 BiPAP 30 07/26/23 17:30 BiPAP 30 07/26/23 17:30 BiPAP 30 07/26/23 17:25 BiPAP 30 07/26/23 17:15 BiPAP 30 07/26/23 17:01 BiPAP 30 07/26/23 17:00 BiPAP 30 07/26/23 16:45 BiPAP 30 07/26/23 16:38 BiPAP 30 07/26/23 16:15 BiPAP 30 07/26/23 16:00 BiPAP 30 07/26/23 15:45 BiPAP 30 07/26/23 15:31 BiPAP 30 07/26/23 15:31 BiPAP 30 07/26/23 15:15 BiPAP 30 07/26/23 15:08 BiPAP 30 07/26/23 15:00 BiPAP 30 07/26/23 14:45 BiPAP 30 07/26/23 14:30 30 07/26/23 14:30 BiPAP 30 07/26/23 14:15 BiPAP 30 07/26/23 14:00 Nasal Cannula 2 07/26/23 13:45 Nasal Cannula 2 07/26/23 13:30 Nasal Cannula 2 07/26/23 13:15 Nasal Cannula 2 07/26/23 13:00 Room Air 07/26/23 12:45 Room Air 07/26/23 12:45 Room Air 07/26/23 12:15 Room Air 07/26/23 12:01 Room Air 07/26/23 12:00 Room Air 07/26/23 11:53 Nasal Cannula 2 07/26/23 11:52 Nasal Cannula 2 07/26/23 11:50 Nasal Cannula 2 07/26/23 11:46 Nasal Cannula 2 07/26/23 11:33 Nasal Cannula 2 07/26/23 11:33 Room Air 07/26/23 11:15 Room Air 07/26/23 11:11 Nasal Cannula 2 07/26/23 11:00 Room Air 07/26/23 10:30 Room Air 07/26/23 10:15 Room Air 07/26/23 09:59 Nasal Cannula 2 07/26/23 09:28 Nasal Cannula 2 07/26/23 09:15 Nasal Cannula 2 07/26/23 09:00 Nasal Cannula 2 07/26/23 08:45 Nasal Cannula 2 07/26/23 08:30 Nasal Cannula 5 07/26/23 08:30 Nasal Cannula 5 07/26/23 08:16 Nasal Cannula 5 07/26/23 08:11 Nasal Cannula 5 07/26/23 07:43 Nasal Cannula 5 07/26/23 07:30 Nasal Cannula 5 Laboratory Results WBC 9.17, HGB 10.4, HCT 31.5, Plts 99, ABG ph 7.39, pCO2 29, pO2 101, HCO3 18, NA 134, Potassium 4.2, Chloride 105, Carbon dioxide 15, BUN 27, Creatinine 1.71, Glucose 158, A1C 7.1, Lactate 4.9, Calcium 7.1, Phosphorous 1.8, Magnesium 1.9, ammonia 10, Troponin 144.3, urinalysis positive leukocyte esterase, positive nitrite, Diagnostic Findings CTH: Mild age-related findings.No acute infarct, bleed, or acute intracranial abnormality. CTA head/neck:1. Moderate LEFT ICA stenosis, possible high risk, ulcerative plaque in this location. There is streak artifact from the calcium and patient motion limiting evaluation. 2. No dissection, occlusion, or other significant stenosis. Chest CTA: 1. No pulmonary embolism. 2. Mild bibasilar atelectasis or infiltrate. 3. Limited detail due to motion artifact. TTE: EF 50-55%, normal sized left atrium, late shunt
[2023-07-26] MEDS: TAMSULOSIN HCL 0.4 MG CAP PO SCH (20:08)
[2023-07-26] MEDS: PANTOprazole 40 MG in SYRINGE 0 ML IV SCH (20:08)
[2023-07-26] MEDS: MELATONIN 3 MG TAB PO PRN (21:06)
[2023-07-27] MEDS: ACETAMINOPHEN 1,000 MG/100 ML VIAL IV PRN (00:15)
[2023-07-27 04:38] LABS: BUN Creatinine Ratio 21.2 (10-20); Calcium 7.2 mg/dl (8.6-10.3); Creatinine Clr Calc Pharmacy 34.3 ml/min; Est GFR (African American) 35.3 ml/min; Est GFR (Non-African American) 30.5 ml/min; Magnesium 2.2 mg/dl (1.7-2.4); Phosphorus 4.7 mg/dl (2.5-4.9); Potassium 4.1 mmol/L (3.5-5.1)
[2023-07-27 05:15] LABS: Hematocrit (blood only) 30.8 % (37.0-47.0); Hemoglobin 10.2 g/dl (12.0-16.0); Mean Corpuscular Hemoglobin 29.1 pg (25.0-34.0); Mean Corpuscular Hgb Conc 33.1 g/dL (32.0-36.0); Mean Platelet Volume 12.3 fL (9.4-12.4); Platelet Count 68 K/uL (130-400); RDW Coefficient of Variation 13.8 % (11.5-14.5); RDW Standard Deviation 43.8 fL (36.4-46.3); White Blood Count 13.53 K/ul (4.8-10.8)
[2023-07-27 05:17] LABS: ALC (manual) 0.14 K/uL (1.2-3.4); ANC (manual) 12.72 K/uL (1.4-6.5); Dohle Bodies 1+; Echinocytes 1+; Lymphocytes # (manual) 0.14 K/uL (1.2-3.4); Lymphocytes % (manual) 1 %; Metamyelocytes # (manual) 0.41 K/uL (0-0); Metamyelocytes % (manual) 3 %; Monocytes # (manual) 0.27 K/uL (0.11-0.59); Monocytes % (manual) 2 %; Neutrophils # (manual) 12.72 K/uL (1.40-6.50); Neutrophils % (manual) 94 %; Toxic Vacuolation 1+
[2023-07-27] MEDS: FUROSEMIDE 40 MG/4 ML VIAL IV ONE (07:33)
[2023-07-27] MEDS ORDERED: Heparin IV Adult Wt-Based Low-Dose *NO* INITIAL Bolus Protocol IV STA (07:41)
--- NOTE | 2023-07-27 07:58 | Critical Care Progress Note ---
Date of Service July 27, 2023 Assessment & Plan (1) Septic shock: (2) Hydronephrosis due to obstruction of ureter: (3) Acute kidney injury: (4) HTN (hypertension): (5) Complicated urinary tract infection: (6) Elevated lactic acid level: Plan Reason Critically Ill: 73-year-old female presents to the ICU with septic shock following right ureteral stone with hydronephrosis, status post right ureteral stent. Now hypotensive requiring vasopressor support. Neuro - Encephalopathy: Patient mildly confused initially presented to the emergency department with strokelike symptoms and was evaluated by neurology. Last known well was over [address] head imaging unremarkable. Most likely due to complicated UTI/sepsis. Will treat underlying cause and monitor closely. Cardiac - S/p Shocksecondary to sepsis from urinary source, currently maintaining MAP greater than 65 with Levophed drip. Titrate as tolerated -Random cortisol 59 -Off vasopressors as of 07/26/2023 -Hold antihypertensives -Continuous monitoring on telemetry 2D echo 07/26/2023: EF 50-55%, mild to moderate MR, RV normal in size and function Respiratory - Hypoxiano previous history of pulmonary disease. -Continuous monitoring pulse ox for now --COPD > 05-ymns-enud smoking history Currently smoking 1 or 2 cigarettes here and there GI - N.p.o. RENAL/LYTES - AKIcreatinine 1.6 with previous baseline is 0.89. Pre versus post obstructive considering ureteral stone with hydronephrosis versus hypotension -Avoid nephrotoxins renally adjust medications -Continue to monitor routine BMPs and replete electrolytes as indicated -Monitor urine output closely - Obstructive ureteral stone/hydronephrosisstatus post right ureteral stent placement via cystoscope. Management per urology Foleystrict I's and O's ENDO - DM type IIhold metformin in favor of sliding scale. ICU hyperglycemic protocol HEME - H&H stable, monitor routine CBC ID - -- Gram-negative bacteremia, Klebsiella on the Bio[employer] Zosyn changed to Rocephin 07/27/2023 Repeat blood cultures later today Skin - -- Cyanosis appreciated of bilateral upper and lower extremities along with cyanosis of the nose Apparently patient has history of hepatitis in the past for which she was treated as per the sister Possibility of cryoglobulinemia is there Complement levels have been ordered Usually treated with the steroids with or without rituximab --Prophylaxis VTE: IPC GI: Pantoprazole Lines: Right IJ Diet: Clear liquid Plan: In/out: -188, urine output 1971 Patient has been off vasopressors since 4 PM yesterday Given the significant cyanosis of the upper and lower extremity, arterial duplex of the upper and lower extremities will be ordered stat Doppler of the bilateral lower extremities to make sure patient does not have any DVT Try to keep the hand warm Hepatitis panel ordered Complement levels to be sent right away Will give the patient steroids and started on heparin drip New onset thrombocytopenia. Likely from underlying sepsis. Continue to monitor 40 of Lasix will be given to the patient, to keep the patient negative balance Repeat blood cultures later today I have personally spent 44 minutes of critical care time in the direct management of this patient. This is a life/limb threatening event. This includes time spent evaluating patient, direct bedside care, chart review, placing orders, interpretation of diagnostic studies, discussion with consultants, patient, and family members, as well as other required patient management activities. This time is exclusive of all separately billable procedures, and teaching time and separate from and in addition to any other critical care service time. Please note the above document was generated using voice recognition software. It may contain grammatical, syntax or spelling errors. Admission and Anticipated Discharge Date Admission Date: July 26, 2023 Subjective Patient seen and examined at bedside. No acute distress. Overnight early in the morning patient hands and feet showed significant cyanosis. She is complaining of any significant pain in them. She has been off of vasopressors since more than 12 hours. Denies any significant chest pain or shortness of breath Tmax 37.6 Has been tachycardic Review of Systems 2 Review of Systems: All systems reviewed & are unremarkable except as noted in Subjective Physical Exam 2 Physical Exam: Constitutional: No acute distress HEENT: EOMI, PERRLA, bluish hue to the tip of the nose Respiratory system: Decreased air entry bilaterally, no wheeze, no rhonchi, positive crackles bilateral lower lobes CVS: S1-S2 positive, no murmurs or gallops, tachycardia Abdomen: Soft, mild abdominal tenderness in the right flank, no rebound, nondistended, positive bowel sounds x4 Extremities: +1 pulses bilaterally radialis/ dorsalis pedis, no cyanosis, +1 pitting edema bilateral lower extremity, cyanosis appreciated bilateral upper extremities of the elbows, as well as lower extremities up to the knee Neuro: Awake alert oriented x3 Psych: Normal mood and affect G/U: Positive Joshi Skin: no rashes, warm and dry Lymphatic: no cervical or axillary lymphadenopathy Results & Data Results & Data Vital Signs (Past 12 Hours) Vital Signs Temp Pulse Resp BP Pulse Ox O2 Del Method O2 Flow Rate 07/27/23 06:30 124 H 21 140/70 98 BiPAP 07/27/23 06:00 36.9 C 127 H 26 H 148/70 H 98 BiPAP 07/27/23 05:30 37.0 C 125 H 23 158/88 H 97 Nasal Cannula 4 07/27/23 05:00 37.0 C 124 H 20 143/70 H 98 Nasal Cannula 4 07/27/23 04:30 36.9 C 123 H 19 155/85 H 99 BiPAP 07/27/23 04:30 155/85 H 07/27/23 04:20 122 H 24 99 07/27/23 04:00 36.9 C 120 H 18 150/77 H 99 BiPAP 07/27/23 03:30 36.8 C 116 H 17 143/75 H 99 BiPAP 07/27/23 03:00 36.9 C 124 H 25 H 128/72 99 Nasal Cannula 4 07/27/23 02:30 36.9 C 125 H 24 139/84 98 Nasal Cannula 4 07/27/23 02:00 36.8 C 124 H 22 140/71 98 Nasal Cannula 4 07/27/23 01:30 36.7 C 122 H 31 H 96/54 L 97 Nasal Cannula 4 07/27/23 01:00 36.6 C 121 H 22 130/66 100 Nasal Cannula 4 07/27/23 00:30 36.6 C 118 H 23 135/73 98 Nasal Cannula 4 07/27/23 00:00 36.6 C 120 H 26 H 136/88 97 Nasal Cannula 4 07/26/23 23:30 36.7 C 119 H 24 112/65 100 Nasal Cannula 4 07/26/23 23:02 122 H 07/26/23 23:00 36.8 C 124 H 24 90/57 L 97 Nasal Cannula 4 07/26/23 22:30 36.8 C 120 H 18 110/46 L 96 Nasal Cannula 4 07/26/23 22:00 36.8 C 120 H 32 H 121/70 94 BiPAP 07/26/23 21:30 36.8 C 116 H 15 110/62 95 BiPAP 07/26/23 21:04 119 H 07/26/23 21:00 36.8 C 114 H 21 109/67 96 BiPAP 07/26/23 20:30 36.8 C 115 H 22 109/64 99 BiPAP 07/26/23 20:00 122 H 24 98 07/26/23 20:00 BiPAP 07/26/23 20:00 36.8 C 120 H 27 H 105/64 97 BiPAP FiO2 07/27/23 06:30 30 07/27/23 06:00 30 07/27/23 05:30 36 07/27/23 05:00 36 07/27/23 04:30 30 07/27/23 04:30 07/27/23 04:20 30 07/27/23 04:00 30 07/27/23 03:30 30 07/27/23 03:00 36 07/27/23 02:30 36 07/27/23 02:00 36 07/27/23 01:30 36 07/27/23 01:00 36 07/27/23 00:30 36 07/27/23 00:00 36 07/26/23 23:30 36 07/26/23 23:02 07/26/23 23:00 36 07/26/23 22:30 36 07/26/23 22:00 30 07/26/23 21:30 30 07/26/23 21:04 07/26/23 21:00 30 07/26/23 20:30 30 07/26/23 20:00 30 07/26/23 20:00 30 07/26/23 20:00 30 Laboratory Results 07/27/23 03:36 07/27/23 03:36 Coding Level of Care Code 57373 CRITICAL CARE 1ST 30-74M Diagnoses Septic shock A41.9; R65.21 Hydronephrosis due to obstruction of ureter N13.1 Acute kidney injury N17.9 HTN (hypertension) I10 Complicated urinary tract infection N39.0 Elevated lactic acid level R79.89
[2023-07-27 09:03] LABS: INR 1.2 (0.9-1.1); Partial Thromboplastin Ratio 1.5; Partial Thromboplastin Time 41 Seconds (21-31); Prothrombin Time 12.9 Seconds (9.0-12.0)
[2023-07-27] MEDS: HEPARIN SODIUM/DEXTROSE 25,000 UNITS/500 ML BAG IV SCH (09:16)
--- NOTE | 2023-07-27 09:57 | Ultrasound Report ---
US arterial duplex UE BI CLINICAL HISTORY: cyanosis TECHNIQUE: Real-time grayscale sonographic images of the bilateral upper extremity arteries were obta ined. Comparison: None available at the time of this dictation. FINDINGS/IMPRESSION: No abnormally elevated or diminished velocities bilaterally. Right carotid canno t be evaluated due to bandages. ACT 112: Negative or not required by law. Electronically signed by: Jomar Palomo M.D. 07/27/2023 9:56 AM
--- NOTE | 2023-07-27 10:02 | Ultrasound Report ---
US arterial duplex LE BI CLINICAL HISTORY: cyanosis TECHNIQUE: Real-time grayscale and color and spectral Doppler ultrasound imaging of the bilateral low er extremity arteries was performed. Measurements calculated based on NASCET criteria. COMPARISON: None available at the time of this dictation. FINDINGS: No elevated velocities or parvus tardus waveforms are seen. Biphasic waveforms are seen in the left c pen[facility] and right anterior tibial and dorsalis pedis arteries. Atherosclerotic plaque is seen, moderate o n the left and mild on the right. IMPRESSION: No hemodynamically significant stenosis. ACT 112: Negative or not required by law. Electronically signed by: Jomar Palomo M.D. 07/27/2023 9:59 AM
--- NOTE | 2023-07-27 10:11 | Electrocardiogram Report ---
Test Reason : Blood Pressure : / mmHG Vent. Rate : 109 BPM Atrial Rate : 109 BPM P-R Int : 124 ms QRS Dur : 080 ms QT Int : 350 ms P-R-T Axes : 059 070 071 degrees QTc Int : 471 ms Sinus tachycardia Otherwise normal ECG When compared with ECG of 25-JUL-2023 20:26, (unconfirmed) No significant change was found Confirmed by Cabrera Godfrey ([id number]) on 07/27/2023 10:11:29 AM Referred By: REFERRED SELF Confirmed By:Cabrera Godfrey
--- NOTE | 2023-07-27 12:10 | Ultrasound Report ---
US venous doppler LE BI CLINICAL HISTORY: r/o DVT, B/l TECHNIQUE: Bilateral lower extremity real-time compression venous ultrasound with Color Doppler imagi ng. Utilizing real-time ultrasonic imaging multiple real time high-resolution ultrasonic images with compression and noncompression maneuvers of the deep venous system in addition to color doppler imagi ng were performed from the common femoral vein through the proximal calf veins. COMPARISON: None available at the time of this dictation. FINDINGS/IMPRESSION: Currently there is normal compressibility of the deep venous system from the common femoral vein thro ugh the proximal calf veins. No superficial venous thrombosis is identified. ACT 112: Negative or not required by law. Electronically signed by: Jomar Palomo M.D. 07/27/2023 12:09 PM
[2023-07-27] MEDS: MoRPHine SULFATE 2 MG/ML CARP IV PRN (13:24)
[2023-07-27 13:45] LABS: ANTI-Xa, UFH(UnfractionatedHep 0.22 IU/ml (0.3-0.7)
--- NOTE | 2023-07-27 14:51 | Hospitalist Progress Note ---
Date of Service July 27, 2023 Assessment & Plan (1) Encephalopathy: Plan: 73-year-old lady with PMH of HTN, HLD, T2DM, HCV status posttreatment, anxiety/mood disorder was brought in with complaint of confusion for about 1 day duration. She could not get words out. 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 She is being managed for the following: ADMITTING IMANGINGS: Admitting CXR with no acute finding. Admitting CT head with no acute finding. Admitting CTA head WNL. Admitting CTA neck with moderate left ICA stenosis and possible high risk/ulcerated plaque in this location. Admitting CTA chest with no PE. Admitting CTAP with mild right hydronephrosis, secondary to 2 into 5 mm stone in the mid ureter. Concern for right pyelonephritis. No perinephric abscess. Cholelithiasis without acute cholecystitis. Complicated UTI Urolithiasis and obstructive uropathy Urosepsis Severe sepsis POA: Secondary to above. Respiratory rate/pulse rate/WBC elevated at presentation. Lactate and procalcitonin elevated at presentation. Septic shock: Patient's blood pressure did not improve despite aggressive fluid resuscitation, was transferred to ICU for pressor support requirement at admission. Likely metabolic encephalopathy: Secondary to above Gram-negative bacteremia: 07/25 blood culture positive for gram-negative bacilli 2 of 4 bottles. Follow final results. Patient presented with using, about a week worth of right flank pain. Poor appetite and not feeling well. UA suggestive of UTI, admitting CTAP with renal stone and concern for right pyelonephritis Urology on board, status post cystoscopy and right retrograde pyelogram/right ureteral stent placement 07/26/2023 Patient was started on cefepime 07/26, to ceftriaxone 07/27, continue Patient needed pressor support in ICU. s/p pressors after 07/26 afternoon. Follow admitting blood and urine culture. Repeat Bl Cx 07/27. Mx per ICU. Monitor / replete electrolytes. Acrocyanosis: Developed overnight of 07/26-07/27. Pt off of pressor support (vasopressin and levophed) 07/26 since about late afternoon/evening. Pulses @ extremities strong. Duplex @ scan of UE and LE wnl. Venous doppler BLE neg for dvt. Pt started on heparin drip, being managed in icu. New onset anemia Likely UGIB Prior hemoglobin level 13.9, admitting hemoglobin 11.1 Hemoccult positive melanotic stool noted at the ER GI evaluated 07/26, PPI drip changed to twice daily, on clears, ADAT. Monitor H&H and transfuse as needed. Will likely need follow-up with GI as an outpatient. Anemia workup, transfuse PRBC if hemoglobin less than 8 and or for symptomatic anemia Aphasia symptoms at presentation: Possible stroke versus metabolic encephalopathy. Patient was patient was lethargic and tired but oriented at bedside exam. No focal weakness noted. Head and neck imagings reviewed as above. Neurology consulted, appreciate recommendation. Continue neurochecks. A1c 7.1; LDL 12. Acute kidney injury: Admitting creatinine of 1.6, past creatinine 0.89. Status post IV fluid, s/p pressor support. Likely prerenal secondary to septic shock. Cr hovering around 1.6. Labs in AM. Likely type II NSTEMI: Troponin elevated likely secondary to acute sepsis. Patient with no chest pain. EKG with sinus tachycardia. No acute ST or T changes. Echo with EF of 50 to 55%, no interatrial septum or sound physiology. No regional wall motion abnormalities. Other chronic medical conditions: Continue with/resume home meds as and when able. Hypertension, BP on the lower side secondary to sepsis. Hold home blood pressure medications. hyperlipidemia, on statin Rx. Continue DM2 on oral medications, reasonable control as of recent hemoglobin A1c of 7.1 last March 2023 HCV status post Rx Recent COVID-19 illness from 2 weeks ago, monitor respiratory symptoms. DVT prophylaxis. SCDs Re: UGIB Full code Patient daughter Ms. Delores Barney, contact #[phone]. Updated 07/27 over the phone, answered all her questions. She voiced understanding and was agreeable to plan of care. Text document was generated using [employer] voice recognition software. It may contain grammatical or spelling errors. Kindly contact undersigned for clarification of any documentation item in question. Admission and Anticipated Discharge Date Admission Date: July 26, 2023 Subjective Patient was seen and examined at bedside. Patient was lying in bed, on 2 L oxygen via nasal cannula, NAD. Patient is off of pressors since yesterday afternoon, acrocyanosis developed over bilateral hand and feet and nasal tip, starting overnight. Patient complains of bilateral feet pain and b/l hand numbness. Usual feeling over nasal tips. PUlses @ extremities good. Physical Exam Physical Exam: GENERAL: Alert and oriented x3. NAD, on 2L O2 via NC. HEENT: No pallor, no icterus. Pupils equal, round and reactive to light. Oral mucosa moist. NECK: No JVD, no neck masses. HEART: S1 and S2 heard. Regular rate and rhythm. No murmur, no gallop. RESPIRATORY SYSTEM: Normal AP diameter. No accessory muscle use. No wheezing, no crackles. ABDOMEN: Soft, bowel sounds present, nontender, no distention. CENTRAL NERVOUS SYSTEM: No facial droop. Speech is clear. Obeys simple commands. Moves extremities. EXTREMITIES: acrocyanosis noted, no edema. Results & Data Results & Data Vital Signs (Past 12 Hours) Vital Signs Temp Pulse Resp BP Pulse Ox O2 Del Method O2 Flow Rate 07/27/23 14:00 37.6 C H 124 H 17 110/74 95 Nasal Cannula 2 07/27/23 13:00 37.5 C 121 H 27 H 113/71 96 Nasal Cannula 2 07/27/23 12:00 37.5 C 111 H 25 H 98/51 L 97 Nasal Cannula 2 07/27/23 11:00 37.4 C 128 H 24 112/97 96 Nasal Cannula 2 07/27/23 10:00 37.3 C 128 H 26 H 151/75 H 96 Nasal Cannula 2 07/27/23 09:00 37.2 C 126 H 15 139/87 95 Nasal Cannula 2 07/27/23 08:24 37.1 C 123 H 24 153/85 H 100 BiPAP 07/27/23 08:00 37.1 C 126 H 20 176/81 H 100 BiPAP 07/27/23 07:30 37.0 C 123 H 21 124/93 99 BiPAP 07/27/23 07:27 121 H 24 95 07/27/23 07:00 BiPAP 07/27/23 06:30 124 H 21 140/70 98 BiPAP 07/27/23 06:00 36.9 C 127 H 26 H 148/70 H 98 BiPAP 07/27/23 05:30 37.0 C 125 H 23 158/88 H 97 Nasal Cannula 4 07/27/23 05:00 37.0 C 124 H 20 143/70 H 98 Nasal Cannula 4 07/27/23 04:30 36.9 C 123 H 19 155/85 H 99 BiPAP 07/27/23 04:30 155/85 H 07/27/23 04:20 122 H 24 99 07/27/23 04:00 36.9 C 120 H 18 150/77 H 99 BiPAP 07/27/23 03:30 36.8 C 116 H 17 143/75 H 99 BiPAP 07/27/23 03:00 36.9 C 124 H 25 H 128/72 99 Nasal Cannula 4 FiO2 07/27/23 14:00 07/27/23 13:00 07/27/23 12:00 07/27/23 11:00 07/27/23 10:00 07/27/23 09:00 07/27/23 08:24 07/27/23 08:00 07/27/23 07:30 07/27/23 07:27 30 07/27/23 07:00 30 07/27/23 06:30 30 07/27/23 06:00 07/27/23 05:30 36 07/27/23 05:00 36 07/27/23 04:30 07/27/23 04:30 07/27/23 04:20 07/27/23 04:00 07/27/23 03:30 07/27/23 03:00 36
[2023-07-27] MEDS: methylPREDNISolone 40 MG in SYRINGE 0 ML IV SCH (15:40)
[2023-07-27] MEDS: cefTRIAXone SODIUM 2,000 MG in DEXTROSE 5 % MINI-B 50 ML IV SCH (17:15)
[2023-07-27 21:04] LABS: ANTI-Xa, UFH(UnfractionatedHep 0.32 IU/ml (0.3-0.7)
[2023-07-28] MEDS: SODIUM CHLORIDE 0.9% 1,000 ML IV ONE (02:33)
[2023-07-28] MEDS: METOPROLOL TARTRATE 1 MG/ML VIAL IV STA ×2 (02:55→14:30)
[2023-07-28 04:25] LABS: BUN Creatinine Ratio 27.5 (10-20); Calcium 7.4 mg/dl (8.6-10.3); Creatinine Clr Calc Pharmacy 35.7 ml/min; Est GFR (African American) 38.7 ml/min; Est GFR (Non-African American) 33.4 ml/min; Magnesium 2.3 mg/dl (1.7-2.4); Potassium 3.9 mmol/L (3.5-5.1)
[2023-07-28 04:37] LABS: ANTI-Xa, UFH(UnfractionatedHep 0.38 IU/ml (0.3-0.7)
[2023-07-28 04:40] LABS: Basophils # (auto) 0.14 K/uL (0.00-0.20); Basophils % (auto) 0.8 %; Hematocrit (blood only) 30.8 % (37.0-47.0); Hemoglobin 10.4 g/dl (12.0-16.0); Immature Granulocytes # (auto) 1.38 K/uL (0.01-0.20); Immature Granulocytes % (auto) 8.1 %; Lymphocytes # (auto) 0.63 K/uL (1.20-3.40); Lymphocytes % (auto) 3.7 %; Mean Corpuscular Hemoglobin 29.3 pg (25.0-34.0); Mean Corpuscular Hgb Conc 33.8 g/dL (32.0-36.0); Mean Corpuscular Volume 86.8 fL (80.0-100.0); Mean Platelet Volume 12.6 fL (9.4-12.4); Monocytes # (auto) 0.79 K/uL (0.11-0.59); Monocytes % (auto) 4.6 %; Neutrophils # (auto) 14.12 K/uL (1.40-6.50); Neutrophils % (auto) 82.8 %; Platelet Count 60 K/uL (130-400); RDW Coefficient of Variation 13.8 % (11.5-14.5); RDW Standard Deviation 43.6 fL (36.4-46.3); Red Blood Count 3.55 M/uL (4.20-5.40); White Blood Count 17.06 K/ul (4.8-10.8)
[2023-07-28] MEDS: POTASSIUM CHLORIDE CRTAB 20 MEQ TABCR PO STA (05:20)
[2023-07-28] MEDS: SODIUM CHLORIDE 0.9% 1,000 ML IV SCH (08:26)
--- NOTE | 2023-07-28 08:54 | CT Scan Report ---
CT head/brain wo con CLINICAL HISTORY: ro bleed. Confusion Technique: Contiguous axial CT images of the head were acquired from the base of the skull to the naif mayte without intravenous contrast administration. Images were viewed in brain, subdural and bone [facility]. Automated dose lowering techniques and/or adjustment according to patient size were utilized for this exam. Comparison: Comparison is made to CT head 07/25/2023 Findings: Areas of decreased attenuation are present in the periventricular and subcortical white matter bilate rally consistent with small vessel ischemic disease. Generalized cerebral atrophy with commensurate e nlargement of the ventricles, sulci, and cisterns is also present. There is no acute intracranial hem orrhage or evidence of acute territorial infarction. No shift of the midline structures, mass effect, or extra-axial abnormalities are shown. Atherosclerotic calcifications are present in the intracran ial segments of the internal carotid arteries. Imaged portions of the paranasal sinuses and mastoid air cells are clear. The orbits appear normal. There are no acute fractures of the calvaria or scalp swelling. Impression: No acute intracranial hemorrhage, no evidence of acute territorial infarction or other acute intracra nial disease process. ACT 112: Negative or not required by law. Electronically signed by: Jomar Palomo M.D. 07/28/2023 8:53 AM
--- NOTE | 2023-07-28 09:57 | Electrocardiogram Report ---
Test Reason : Blood Pressure : / mmHG Vent. Rate : 103 BPM Atrial Rate : 103 BPM P-R Int : 142 ms QRS Dur : 074 ms QT Int : 356 ms P-R-T Axes : 065 066 075 degrees QTc Int : 466 ms Sinus tachycardia Low voltage QRS Borderline ECG When compared with ECG of 25-JUL-2023 18:52, No significant change was found Confirmed by Cabrera Godfrey ([id number]) on 07/28/2023 9:56:57 AM Referred By: REFERRED SELF Confirmed By:Cabrera Godfrey
--- NOTE | 2023-07-28 10:04 | Electrocardiogram Report ---
Test Reason : Blood Pressure : / mmHG Vent. Rate : 128 BPM Atrial Rate : 128 BPM P-R Int : 160 ms QRS Dur : 078 ms QT Int : 318 ms P-R-T Axes : 058 077 072 degrees QTc Int : 464 ms Sinus tachycardia Low voltage QRS Poor R wave progression, consider anterior IA vs. lead placement vs. LVH Abnormal ECG When compared with ECG of 26-JUL-2023 16:52, No significant change was found Confirmed by Cabrera Godfrey ([id number]) on 07/28/2023 10:04:17 AM Referred By: REFERRED SELF Confirmed By:Cabrera Godfrey
--- NOTE | 2023-07-28 10:07 | Electrocardiogram Report ---
Test Reason : Blood Pressure : / mmHG Vent. Rate : 129 BPM Atrial Rate : 129 BPM P-R Int : 168 ms QRS Dur : 078 ms QT Int : 314 ms P-R-T Axes : 036 074 072 degrees QTc Int : 460 ms Sinus tachycardia Low voltage QRS Borderline ECG When compared with ECG of 28-JUL-2023 01:55, (unconfirmed) No significant change was found Confirmed by Cabrera Godfrey ([id number]) on 07/28/2023 10:06:58 AM Referred By: REFERRED SELF Confirmed By:Cabrera Godfrey
[2023-07-28 10:40] LABS: Allen Test Pos (Pos); Base Excess ABG -4.4 mEq/L (-9-1.8); HCO3 ABG 18 mmol/L (19-24); Oxygen Saturation ABG 96.9 % (90-95); PCO2 ABG 27 mmHg (35-46); PO2 ABG 78 mmHg (80-95); pH ABG 7.44 (7.35-7.45)
[2023-07-28] MEDS ORDERED: LABETALOL HCL IV 5 MG/ML 20ML IV PRN (13:07)
[2023-07-28 14:16] LABS: Hematocrit (blood only) 27.6 % (37.0-47.0); Hemoglobin 9.7 g/dl (12.0-16.0); Mean Corpuscular Hemoglobin 30.1 pg (25.0-34.0); Mean Corpuscular Hgb Conc 35.1 g/dL (32.0-36.0); Mean Corpuscular Volume 85.7 fL (80.0-100.0); Mean Platelet Volume 12.2 fL (9.4-12.4); Platelet Count 56 K/uL (130-400); RDW Coefficient of Variation 13.6 % (11.5-14.5); RDW Standard Deviation 42.9 fL (36.4-46.3); Red Blood Count 3.22 M/uL (4.20-5.40); White Blood Count 15.12 K/ul (4.8-10.8)
[2023-07-28 14:26] LABS: Fibrinogen 556 mg/dl (184-400); Partial Thromboplastin Ratio 1.9; Partial Thromboplastin Time 53 Seconds (21-31); Prothrombin Time 11.4 Seconds (9.0-12.0)
[2023-07-28 14:35] LABS: D Dimer 19270 ug/L FEU (0-500)
--- NOTE | 2023-07-28 14:57 | Oncology Consultation ---
Date of Consultation July 28, 2023 Assessment & Plan (1) Encephalopathy: Multifactorial, recent COVID exposure, acute sickness, sepsis currently. Recommend supportive care, see below (2) Anemia: Multifactorial, due to acute illness. Transfuse if hemoglobin is less than 7. (3) Thrombocytopenia: Most likely the cause for thrombocytopenia at this point is disseminated intravascular coagulation. The patient's IST H criteria for DIC score is 6, which places her at significant risk of currently being diagnosed with DIC. Her fibrinogen level is elevated however she has thrombocytopenia and significantly elevated D-dimer. Based on this the probability of DIC is high. My recommendation would be supportive care, treating the underlying cause which is sepsis. I have recommended q. 8 CBC, DIC panel checks. I have recommended supportive transfusions of platelets if the platelet count drops below 10,000/mcL or if she actively bleeds and the platelet count is less than 50,000/mcL. Her fibrinogen level is currently elevated, she does not need fibrinogen. I have also recommended Dopplers of the both upper and lower extremities. The possibility of heparin-induced thrombocytopenia is there however her 4T score is only 3. At this point we have sent for anti-PF4 antibodies and reflex serotonin release assay. I looked at her peripheral smear, there were no schistocytes, TTP/microangiopathic hemolytic anemia is unlikely. Given her thrombocytopenia and possible DIC have asked the primary team to hold therapeutic anticoagulation. If she is found to have multiple blood clots then we will consider anticoagulation, would consider argatroban till the anti-PF4 antibodies are resulted. Plan Thank you for this interesting hematological consult. Hematology will continue to follow the patient and make appropriate recommendations History of Present Illness Attending Physician: Juan David Larios MD History of Present Illness 73-year-old woman, who was recently diagnosed with COVID at home, came to the hospital with altered mental status. She was diagnosed with COVID in early July. Since then she started having emesis about 10 days ago. She has been getting progressively confused and was having difficulty speaking. She had a CT angiogram of the chest which revealed no pulmonary embolism, mild bibasilar atelectasis or infiltrate. Limited detail due to motion artifact. The neck CT angiogram, performed on 07/25/2023 revealed moderate left ICA stenosis, possible high risk, ulcerative plaque in the location. She was started on heparin gtt. on 07/27/2023 because of acrocyanosis. She had a venous Doppler on 07/27/2023 which was negative for DVT. During this time we have noticed a decline in her platelet count from a baseline of 215,000/mcL to 56,000/mcL on 07/28/2023. We have also seen a progressive rise in her coagulation profile. On baseline her P T on 07/25/2023 was 12.1 followed by 12.9 and today is 11.4. Fibrinogen level was checked, was elevated. Hematology has been consulted to assist in management of this patient with encephalopathy, progressive thrombocytopenia after exposure to heparin. Allergies Allergy/AdvReac Type Severity Reaction Status Date / Time No Known Allergies Allergy Verified 07/25/23 19:50 Home Medications Medication Instructions Recorded Confirmed Type lisinopril 10 mg tablet 10 mg PO QAM 11/14/20 07/25/23 History atorvastatin 40 mg tablet 40 mg PO QAM 07/25/23 07/25/23 History calcium carbonate 1,000 mg-vitamin 1 tab PO DAILY 07/25/23 07/25/23 History D3 20 mcg (800 unit) tablet cyanocobalamin (vitamin B-12) 1,000 mcg PO QAM 07/25/23 07/25/23 History 1,000 mcg tablet ibandronate 150 mg tablet 150 mg PO .EVERY 30 DAYS 07/25/23 07/25/23 History metformin 1,000 mg tablet 1,000 mg PO BIDWMEAL 07/25/23 07/25/23 History venlafaxine 150 mg 150 mg PO DAILY 07/25/23 07/25/23 History capsule,extended release 24 hr Patient History Medical History History of COVID-19 History of colon polyps Anxiety HTN (hypertension) Surgical History S/P wrist surgery History of colonoscopy History of hysterectomy History of tonsillectomy Family History Grandmother Family history of diabetes mellitus Family history of colon cancer Grandfather Family history of colon cancer Aunt Family history of colon cancer Uncle Family history of colon cancer Social History (Reviewed 01/26/24 @ 09:09 by DANIEL Florian Smoking Status: Current some day smoker Tobacco Type: Cigarettes Second Hand Exposure: No; Do You Dip or Chew Tobacco: No; Hx Alcohol Use: No Hx Substance Use: No Preferred Language: Kiswahili Communication Ability: Effective [employer] Duty [employer] Required: No Beliefs That Will Affect Care: None Current Living Situation: Family Current Living Situation Comment: Pt's grandsonIlir lives with her Feels Safe at Home: Yes Assistive Devices: None Physical Exam Constitutional: WD/WN, vitals as above Eyes: PERRL, conjunctivae normal, anicteric sclerae ENMT: external ear and nose normal, oropharynx normal Neck: trachea midline, no thyromegaly Respiratory: normal respiratory effort, lungs clear to auscultation Cardiovascular: RRR, no murmur, no edema Gastrointestinal (Abdomen): normal bowel sounds, soft, nontender, no hepatosplenomegaly Musculoskeletal: no cyanosis or clubbing, extremities motor strength 5/5 Neurologic: patellar DTR's 2+ bilat, sensation intact Results & Data Vital Signs (Past 12 Hours) Vital Signs Temp Pulse Pulse Resp BP BP BP 07/28/23 14:37 118 H 145/86 H 07/28/23 14:30 142 H 155/83 H 07/28/23 14:05 137 H 155/83 H 07/28/23 11:21 36.7 C 134 H 20 172/104 H 07/28/23 10:00 07/28/23 07:35 36.7 C 129 H 18 160/91 H 07/28/23 04:59 120 H 07/28/23 04:14 36.7 C 118 H 21 144/84 H Pulse Ox O2 Del Method O2 Flow Rate 07/28/23 14:37 07/28/23 14:30 07/28/23 14:05 07/28/23 11:21 94 Nasal Cannula 1 07/28/23 10:00 Nasal Cannula 1 07/28/23 07:35 95 Nasal Cannula 1 07/28/23 04:59 07/28/23 04:14 93 Nasal Cannula 1
[2023-07-28 15:19] LABS: Reticulocyte % 1.09 % (0.50-2.00)
[2023-07-28 15:57] LABS: Albumin Level 2.8 gm/dl (3.4-5.0); Bilirubin Direct 0.2 mg/dl (0-0.2); Bilirubin,Total 1.1 mg/dl (0.2-1.0); Total Protein 5.4 gm/dl (6.0-8.3)
--- NOTE | 2023-07-28 16:38 | Hospitalist Progress Note ---
Date of Service July 28, 2023 Assessment & Plan (1) Encephalopathy: Plan: 73-year-old lady with PMH of HTN, HLD, T2DM, HCV status posttreatment, anxiety/mood disorder was brought in with complaint of confusion for about 1 day duration. She could not get words out. Of note, she had home test for COVID-19 positive about 2 weeks ago [employer], had self-limited cough symptoms. Also she had noted right flank pain complaints since about 1 week ago [employer] associated with not feeling well & a/w poor appetite. She is being managed for the following: ADMITTING IMANGINGS: Admitting CXR with no acute finding. Admitting CT head with no acute finding. Admitting CTA head WNL. Admitting CTA neck with moderate left ICA stenosis and possible high risk/ulcerated plaque in this location. Admitting CTA chest with no PE. Admitting CTAP with mild right hydronephrosis, secondary to 2 into 5 mm stone in the mid ureter. Concern for right pyelonephritis. No perinephric abscess. Cholelithiasis without acute cholecystitis. Complicated UTI Urolithiasis and obstructive uropathy Urosepsis Severe sepsis POA: Secondary to above. Respiratory rate/pulse rate/WBC elevated at presentation. Lactate and procalcitonin elevated at presentation. Septic shock: Patient's blood pressure did not improve despite aggressive fluid resuscitation, was transferred to ICU for pressor support requirement at admission. Likely metabolic encephalopathy: Secondary to above Gram-negative bacteremia: 07/25 blood culture positive for gram-negative bacilli 2 of 4 bottles. Follow final results. Patient presented with using, about a week worth of right flank pain. Poor appetite and not feeling well. UA suggestive of UTI, admitting CTAP with renal stone and concern for right pyelonephritis Initially admitted in ICU, needed pressor support, s/p pressors 07/26 afternoon. 07/25 Bl Cx - K. Pneumoniae; 07/26 Urine Cx - K Pneumoniae 07/27 Bl Cx - Pending. Follow Urology on board, status post cystoscopy and right retrograde pyelogram/right ureteral stent placement 07/26/2023 Patient was started on cefepime 07/26, to ceftriaxone 07/27, d/w ID 07/28 - agrees w/ Rx. Continue. WBC uptrended in AM, procal repeated, which downtrended. Patient is afebrile. Monitor / replete electrolytes. Mx per ICU Acrocyanosis: Developed overnight of 07/26-07/27. Pt off of pressor support (vasopressin and levophed) 07/26 since about late afternoon/evening. Pulses @ extremities strong 07/27. Duplex @ scan of UE and LE on 07/27 wnl. Venous doppler BLE neg for dvt on 07/27. Pt started on heparin drip 07/27. 07/28: see subjective 07/28 for detailed info. Acrocyanosis increased, pulses appeared weak today. Discussed the case with flexboard operator and filler wiper, plan to repeat venous and arterial Doppler of UE and LE due to change in her condition. Such has been sent. Concern for HIIT less; IS Cirteria for DIC is strong w/ 6 points, d/w flexboard operator for transferring patient down to ICU for close monitoring as patient has been worsening vitals/mentation/labs sánchez. Plan for q8h CBC and DIC panel monitoring and appripriate f/u care at the point. Appreciate oncology recs 07/28. Ttransferred to ICU. Ongoing monitoring in ICU. New onset anemia Likely UGIB Prior hemoglobin level 13.9, admitting hemoglobin 11.1 Hemoccult positive melanotic stool noted at the ER GI evaluated 07/26, PPI drip changed to twice daily. Monitor H&H and transfuse as needed. Will likely need follow-up with GI as an outpatient. Anemia workup, transfuse PRBC if hemoglobin less than 8 and or for symptomatic anemia NPO due to mentation status. Aphasia symptoms at presentation: Possible stroke versus metabolic encephalopathy. Patient was patient was lethargic and tired but oriented at bedside exam. No focal weakness noted. Head and neck imagings reviewed as above. Neurology consulted, appreciate recommendation. Continue neurochecks. A1c 7.1; LDL 12. Acute kidney injury: Admitting creatinine of 1.6, past creatinine 0.89. Status post IV fluid, s/p pressor support. Likely prerenal secondary to septic shock. Cr hovering around 1.6. Labs in AM. Likely type II NSTEMI: Troponin elevated likely secondary to acute sepsis. Patient with no chest pain. EKG with sinus tachycardia. No acute ST or T changes. Echo with EF of 50 to 55%, no interatrial septum or sound physiology. No regional wall motion abnormalities. Other chronic medical conditions: Continue with/resume home meds as and when able. Hypertension, monitor BP as pt's condition is critical and BP will fluctuate. resume home bp meds as able. hyperlipidemia, on statin Rx. Continue DM2 on oral medications, reasonable control as of recent hemoglobin A1c of 7.1 last March 2023 HCV status post Rx Recent COVID-19 illness from 2 weeks ago, monitor respiratory symptoms. DVT prophylaxis. SCDs Re: UGIB Full code Patient daughter Ms. Delores Barney, contact #[phone]. Updated 07/27 over the phone, answered all her questions. She voiced understanding and was agreeable to plan of care. Updated multiple times 07/28. Text document was generated using [employer] voice recognition software. It may contain grammatical or spelling errors. Kindly contact undersigned for clarification of any documentation item in question. Critical care time spent at bedside and w/ acitivities relating direct care of the patient 65 minutes. Aside from charting. Total time spent upwards of 120 minutes including charting/discussion w/ family and various subspecialities. Admission and Anticipated Discharge Date Admission Date: July 26, 2023 Subjective Patient was seen and examined at bedside several times today. I was paged by RN for concerns of confusion reference investigator but no focal weakness or slurring and increasing bluish discoloration of her hands and feet. Right pedal pulse was not dopplerable. ---> I went to bedside immediately and examined the patient. The swelling of her hands and feet along with the bluish discoloration had increased from yesterday. Pulses weak compared to yesterday, right pedal pulse difficult to palpate. Patient was lethargic, slow to respond, answers orientation questions appropriately. Appeared dehydrated with dry mucosa. Could move limbs, generalized weakness noted. No focal weakness or tongue/facial deviation noted. Since the patient was on heparin drip since 9:16 AM on 07/27, I repeated CT of the head. No bleeding. Patient continues to have right upper quadrant pain on palpation, CTAP from 07/25 reviewed. RUQ ultrasound was sent. EKG with sinus tachycardia, lactate was sent and came back normal. Morning labs were reviewedcreatinine trending down, electrolytes fairly WNL, though WBC was elevated compared to yesterday procalcitonin is downtrending, hemoglobin stable around 10. Because she is lethargic and not eating and had very dry mucosa, she was started on IV fluid. Of note serological markers were sent 07/27. After morning evaluation and follow-up labs evaluation, I saw the patient again, with not much improvement in her clinical condition. I discussed the case with rheumatology given concern of cryoglobulinemia and the patient was started on steroid yesterday. Upon discussion, this is less likely cryoglobulinemia due to presentation and this is more likely from sepsis. Also noted was her platelet drop since presentation. Of note, patient was not restarted on any anticoagulation at presentation, appears that first time she used any anticoagulation was after 9 AM on 07/27/2023. Because of concern of HIIT and DIC, I discussed the case with clinical pathologist and sent lab works for DIC and HIIT. Heparin drip was stopped. Then I reached out to hematology, by this time we have already sent various labs including labs for HIIT, DIC, peripheral smear. There was a concern of TTP HUS, Dr. Magana reviewed peripheral smear himself and no schistocytes noted. Hence TTP was ruled out. After the lab results were out and reviewed, I discussed the case with flexboard operator due to the platelets drop and overall condition worsening including vitals becoming unstable with a plan to transfer the patient down to ICU for close monitoring. Continuity Tester evaluated the patient and recommended the patient be monitored in PCU for now. Since the vitals were worsening after sometime, evaluated the patient again/was tachypneic I consulted flexboard operator formally. reached out to again for his agreement for transfer down to ICU, awaiting reply. ----> accepted for transfer to ICU. Transfer order placed. I updated the Ana over the phone in the morning of her then current status. I updated Ana and Delores together again during the day in person when they arrived at the hospital. Patient's sister Ana and daughter Delores were present. I explained them the possibility of DIC in her scenario likely secondary to sepsis and that her prognosis remains guarded at this point. I explained them each and every events going on with her one by one as noted in my progress note. I answered all their questions, and made them aware she might go downhill abruptly. Ana stated she will let her relatives know so that they can visit her. I assured them we are taking every right step to get her better but only time will tell in this situation. After patient was accepted for transfer to ICU, I called the dtr Delores again that the patient is going to ICU and likely will get intubated due to her rapid breathing. I also spoke w/ ID doc art objects salesperson regarding her sepsis treatment and if we need to add any further antibiotic as she is undergoing likely septic coagulopathy. He agreed w/ current rocephin treatment of 2g/daily being appropriate. Physical Exam Physical Exam: GENERAL: lethargic, oriented in AM but slow to respond, by the day appeared very tired and confused. HEENT: No pallor, no icterus. Pupils equal, round and reactive to light. Oral mucosa very dry. Nasal tip cynosis noted. NECK: No JVD, no neck masses. HEART: S1 and S2 heard. tachy cardia, sinus. No murmur, no gallop. RESPIRATORY SYSTEM: Normal AP diameter. No accessory muscle use. No wheezing, no crackles. By evening she was tachypneic and belly breathing, ABDOMEN: Soft, bowel sounds present, ruq tender, no distention. CENTRAL NERVOUS SYSTEM: No facial droop. Speech is clear. Obeys simple commands. Moves extremities. EXTREMITIES: acrocyanosis noted - progressing, no edema. Results & Data Results & Data Vital Signs (Past 12 Hours) Vital Signs Temp Pulse Pulse Resp BP BP Pulse Ox 07/28/23 16:02 135 H 30 H 158/97 H 92 07/28/23 14:37 118 H 145/86 H 07/28/23 14:30 142 H 155/83 H 07/28/23 14:05 137 H 155/83 H 07/28/23 11:21 36.7 C 134 H 20 172/104 H 94 07/28/23 10:00 07/28/23 07:35 36.7 C 129 H 18 160/91 H 95 07/28/23 04:59 120 H O2 Del Method O2 Flow Rate 07/28/23 16:02 Nasal Cannula 2 07/28/23 14:37 07/28/23 14:30 07/28/23 14:05 07/28/23 11:21 Nasal Cannula 1 07/28/23 10:00 Nasal Cannula 1 07/28/23 07:35 Nasal Cannula 1 07/28/23 04:59
[2023-07-28] MEDS ORDERED: METOPROLOL TARTRATE 1 MG/ML VIAL IV PRN (16:41)
[2023-07-28 16:54] LABS: Hematocrit (blood only) 28.8 % (37.0-47.0); Mean Corpuscular Hemoglobin 29.6 pg (25.0-34.0); Mean Corpuscular Hgb Conc 34.7 g/dL (32.0-36.0); Mean Corpuscular Volume 85.2 fL (80.0-100.0); Mean Platelet Volume 12.8 fL (9.4-12.4); Platelet Count 58 K/uL (130-400); RDW Coefficient of Variation 13.8 % (11.5-14.5); Red Blood Count 3.38 M/uL (4.20-5.40); White Blood Count 13.35 K/ul (4.8-10.8)
--- NOTE | 2023-07-28 17:06 | XRay Report ---
XR chest 1V portable CLINICAL HISTORY: rr elevated TECHNIQUE: Single frontal radiograph of the chest was obtained. Comparison: Comparison is made to chest radiograph 07/26/2023 FINDINGS: Right IJ catheter terminates in the IVC. Calcified aortic knob is seen. Faint bibasilar airspace opac ities are seen. Small bilateral pleural effusions are seen. IMPRESSION: Faint bibasilar airspace opacities which may represent atelectasis, pneumonia, and/or aspiration. Sma ll bilateral pleural effusions. ACT 112: Negative or not required by law. Electronically signed by: Jomar Palomo M.D. 07/28/2023 5:04 PM
[2023-07-28 17:21] LABS: Fibrinogen 596 mg/dl (184-400); Partial Thromboplastin Ratio 1.2; Partial Thromboplastin Time 35 Seconds (21-31); Prothrombin Time 11.4 Seconds (9.0-12.0)
[2023-07-28 17:34] LABS: D Dimer 22190 ug/L FEU (0-500)
--- NOTE | 2023-07-28 17:40 | Critical Care Progress Note ---
Date of Service July 28, 2023 Assessment & Plan (1) Acute encephalopathy: (2) Septic shock: (3) Hydronephrosis due to obstruction of ureter: (4) Acute kidney injury: (5) Complicated urinary tract infection: (6) Elevated lactic acid level: (7) Thrombocytopenia: (8) Fever 41 degrees C or over: Plan Reason Critically Ill: 73-year-old female presents to the ICU with septic shock following right ureteral stone with hydronephrosis, status post right ureteral stent. Patient transferred out of ICU yesterday. Initially in ICU for septic shock requiring Levophed and vasopressin. She developed severe peripheral cyanosis and signs of necrosis on her nose, bilateral lower extremities and bilateral upper extremities. Her platelet count has been trending down. There is concern for HIT versus DIC. Hematology on board. PF4 antibody is pending. No venous thromboembolism has been identified as of yet. Arterial Dopplers of the extremities are pending. Suspect the patient has vasopressor induced ischemia provoking the necrotic changes on her peripheral extremities. Other possibilities include vasculitis, antiphospholipid syndrome and atypical infectious etiology. TTP and atypical HUS on the differential as well. She also is profoundly encephalopathic likely related to high-grade fever. Suspect source of sepsis is complicated urinary tract infection due to Klebsiella. Other etiologies include encephalitis and meningitis. Empiric meningitis doses of vancomycin, ampicillin, ceftriaxone and acyclovir have been initiated. Will defer lumbar puncture at this time given dropping platelet counts. Will obtain MRI of the brain. Patient is receiving IV Solu-Medrol 40 mg every 12 hours. Will give IV acetaminophen for high-grade fever. 100 mg IV hydrocortisone given after intubation as etomidate was used to help prevent adrenal insufficiency. Will utilize IV fentanyl to help promote ventilator synchrony and discomfort. I emergently intubated the patient in the ICU due to GCS of 3 and worsening hypoxemic respiratory failure. Will continue lung protective ventilation strategy. Patient's family was updated at bedside. CRITICAL CARE TIME - I have personally spent 67 minutes of critical care time in the direct management of this patient. This is a life/limb threatening event. This includes time spent evaluating patient, direct bedside care, chart review, placing orders, interpretation of diagnostic studies, discussion with consultants, p atient, and family members, as well as other required patient management activities. This time is exclusive of all separately billable procedures, and teaching time and separate from and in addition to any other critical care service time. Admission and Anticipated Discharge Date Admission Date: July 26, 2023 Subjective Patient seen and examined on the medical posey. She has become progressively obtunded throughout the day. Respiratory rate in the 30s. Hospitalist with concern for worsening altered mental status. Review of Systems Review of Systems: All systems reviewed & are unremarkable except as noted in HPI & below Physical Exam Constitutional: + acute distress Eyes: PERRL, conjunctivae normal, anicteric sclerae ENMT: external ear and nose normal, oropharynx normal Neck: trachea midline, no thyromegaly Respiratory: Severely tachypneic Cardiovascular: RRR, no murmur, no edema Heart Sounds: normal S1 and normal S2; no murmur Gastrointestinal (Abdomen): normal bowel sounds, soft, nontender, no hepatosplenomegaly Musculoskeletal: no cyanosis or clubbing, extremities motor strength 5/5 Skin: no rashes, warm and dry Neurologic: PERRL, EOMI, accommodation nl, no face palsy, no dysarthria Obtunded. Minimal withdrawal to painful stimuli for Psychiatric: Obtunded Genitourinary: Indwelling Joshi catheter present, urine dark and concentrated yellow Results & Data Results & Data Vital Signs (Past 12 Hours) Vital Signs Temp Pulse Pulse Resp BP BP Pulse Ox 07/28/23 16:02 135 H 30 H 158/97 H 92 07/28/23 14:37 118 H 145/86 H 07/28/23 14:30 142 H 155/83 H 07/28/23 14:05 137 H 155/83 H 07/28/23 11:21 36.7 C 134 H 20 172/104 H 94 07/28/23 10:00 07/28/23 07:35 36.7 C 129 H 18 160/91 H 95 O2 Del Method O2 Flow Rate 07/28/23 16:02 Nasal Cannula 2 07/28/23 14:37 07/28/23 14:30 07/28/23 14:05 07/28/23 11:21 Nasal Cannula 1 07/28/23 10:00 Nasal Cannula 1 07/28/23 07:35 Nasal Cannula 1 Coding Level of Care Code 72944 CRITICAL CARE 1ST 30-74M Diagnoses Acute encephalopathy G93.40 Septic shock A41.9; R65.21 Hydronephrosis due to obstruction of ureter N13.1 Acute kidney injury N17.9 Complicated urinary tract infection N39.0 Elevated lactic acid level R79.89 Thrombocytopenia D69.6 Fever 41 degrees C or over R50.9 Time Spent (min) 67
[2023-07-28] MEDS: SODIUM BICARB 8.4% INJ 50 MEQ/50 ML SYR IV ONE (18:03)
[2023-07-28] MEDS: ETOMIDATE 2 MG/ML 20 ML VIAL IV ONE ×2 (18:05→19:57)
[2023-07-28] MEDS: ROCURONIUM BROMIDE 10 MG/ML 5 ML VIAL IV ONE ×2 (18:10→20:16)
[2023-07-28] MEDS: HYDROCORTISONE SOD SUCCINATE 100 MG/2 ML VIAL ONE (18:15)
[2023-07-28 18:31] LABS: Hematocrit (blood only) 26.7 % (37.0-47.0); Hemoglobin 9.1 g/dl (12.0-16.0); Mean Corpuscular Hgb Conc 34.1 g/dL (32.0-36.0); Mean Platelet Volume 12.5 fL (9.4-12.4); Nucleated RBC # (auto) 0.02 K/uL (0.00-0.12); Nucleated RBC % (auto) 0.2 %; Platelet Count 53 K/uL (130-400); RDW Coefficient of Variation 13.8 % (11.5-14.5); Red Blood Count 3.14 M/uL (4.20-5.40); White Blood Count 10.59 K/ul (4.8-10.8)
--- NOTE | 2023-07-28 18:33 | Procedure Note ---
Procedure Note Date of Service July 28, 2023 Note INTUBATION PROCEDURE NOTE: Dr. Dmitri Jarrett A time-out was completed verifying correct patient, procedure, site, positioning. Patient was evaluated and required intubation for altered mental status and hypoxic respiratory failure. Sedative agent used: 25 mg etomidate Paralysis agent used: 50 mg rocuronium Emergent consent was implied given patients rapidly declining clinical status and need for airway protection. Number of attempts: 1 Grade view: Not applicable The patient was prepared in the appropriate fashion. Sedation was achieved utilizing etomidate and rocuronium. The patient was easily ventilated using [id number] to achieve adequate oxygenation. A 7.5 Slovenian endotracheal tube was placed under GlideScope to 23 cm at the lip. The stylette was removed and balloon was inflated with 10mL of air. Appropriate Colorimetric change was appreciated. Bilateral breath sounds were heard without air sounds in the abdomen. Post Intubation Chest X-ray ordered. Patient tolerated the procedure well and there were no immediate complications. Coding CPT Codes Resuscitation - Resuscitation: 51204 Endotracheal Intubation, emergency ([id number]) [facility] [place] Procedure Codes (Charges) Resuscitation Resuscitation: 23582 Endotracheal Intubation, emergency
[2023-07-28 18:42] LABS: Albumin Level 2.5 gm/dl (3.4-5.0); BUN Creatinine Ratio 30.5 (10-20); Calcium 6.7 mg/dl (8.6-10.3); Creatinine Clr Calc Pharmacy 38.7 ml/min; Est GFR (African American) 42.7 ml/min; Est GFR (Non-African American) 36.9 ml/min; Globulin 2.4 gm/dl (2.5-4.0); Potassium 3.6 mmol/L (3.5-5.1); Total Protein 4.9 gm/dl (6.0-8.3)
[2023-07-28 18:45] LABS: Basophils # (auto) 0.05 K/uL (0.00-0.20); Basophils % (auto) 0.5 %; Dohle Bodies 1+; Eosinophils # (auto) 0.02 K/uL (0.00-0.50); Eosinophils % (auto) 0.2 %; Immature Granulocytes # (auto) 0.09 K/uL (0.01-0.20); Immature Granulocytes % (auto) 0.8 %; Lymphocytes # (auto) 0.41 K/uL (1.20-3.40); Lymphocytes % (auto) 3.9 %; Monocytes # (auto) 0.45 K/uL (0.11-0.59); Monocytes % (auto) 4.2 %; Neutrophils # (auto) 9.57 K/uL (1.40-6.50); Neutrophils % (auto) 90.4 %; Polychromasia 1+
--- NOTE | 2023-07-28 18:52 | XRay Report ---
XR chest 1V portable CLINICAL HISTORY: s/p intubation TECHNIQUE: Single frontal radiograph of the chest was obtained. Comparison: Comparison is made to chest radiograph 07/28/2023 FINDINGS: Endotracheal tube terminates 3 cm from the clarissa. An enteric tube tip and side port lie below the di aphragm. The right jugular venous catheter terminates in the mid SVC. The cardiomediastinal silhouett e is normal. Previously noted airspace opacities are somewhat less prominent on this exam. Small bila teral pleural effusions are seen. IMPRESSION: 1. Satisfactory position of endotracheal tube and enteric tube. 2. Small bilateral pleural effusions. 3. Interval improvement in bibasilar airspace opacities which may represent decreased atelectasis. ACT 112: Negative or not required by law. Electronically signed by: Jomar Palomo M.D. 07/28/2023 6:50 PM
[2023-07-28] MEDS ORDERED: STAT IV/IM STA (19:07)
--- NOTE | 2023-07-28 19:08 | Communication Note ---
Date of Service: July 28, 2023 Neurology: 73 y/o female admitted with septic shock, UTI, urolithiasis and obstructive uropathy, bacteremia, and encephalopathy. Pt initiate on heparin dr dumont on 07/27 due to acrocyanosis. Pt with thrombocytopenia suspected by hematology to be secondary to DIC vs HIT and anticoagulation was recommended held. Repeat CTH on today with no acute intracranial findings. Aspirin previously held by primary due to suspected GI bleed. Suspect likely toxic metabolic encephalopathy given repeat CTH with no acute findings, would obtain MRI brain when able.
[2023-07-28] MEDS ORDERED: STAT IV Infusion **Titration per Protocol STA (19:28)
[2023-07-28] MEDS ORDERED: fentaNYL BOLUS from BAG IV PRN (19:28)
[2023-07-28] MEDS: AMPICILLIN 2,000 MG in SODIUM CHLOR 0.9% MINI-B 100 ML IV SCH (19:40)
[2023-07-28] MEDS: DEXTROSE 5% IV SCH (19:41)
[2023-07-28] MEDS: ACYCLOVIR SOD IV SCH (19:41)
[2023-07-28] MEDS: CALCIUM GLUCONATE 10% 1,000 MG in SODIUM CHLOR 0.9% MINI-B 50 ML IV SCH (19:46)
[2023-07-28] MEDS: PROPOFOL IV EMULSION 10 MG/ML 100 ML VIAL IV ONE (19:57)
[2023-07-28] MEDS: PHENYLEPHRINE HCL 25 MG/250 ML NSS IV ONE (19:57)
[2023-07-28] MEDS: SODIUM BICARB 8.4% INJ 50 MEQ/50 ML SYR IV STA (19:57)
[2023-07-28] MEDS: fentaNYL citrate 2,500 MCG/250 ML BAG IV ONE (19:57)
[2023-07-28] MEDS: fentaNYL citrate 2,500 MCG/250 ML BAG IV SCH (19:59)
[2023-07-28] MEDS: cefTRIAXone SODIUM 2,000 MG in DEXTROSE 5 % MINI-B 50 ML IV SCH (20:14)
[2023-07-28] MEDS: PHENYLEPHRINE/NSS 25 MG/250 ML BAG IV SCH (20:15)
[2023-07-28] MEDS: VANCOMYCIN HCL 2,000 MG in SODIUM CHLORIDE 0.9% 500 ML IV ONE (20:32)
[2023-07-28] MEDS: propofoL 1,000 MG/100 ML VIAL IV SCH (20:32)
[2023-07-28] MEDS: HYDROCORTISONE SOD 100 MG in SYRINGE 0 ML IV ONE (21:21)
[2023-07-28] MEDS: DEXTROSE 50% 50 ML SYRINGE IV PRN (21:52)
--- NOTE | 2023-07-28 23:48 | Ultrasound Report ---
Exam(s): US ARTERIAL BILATERAL LOWER EXTREMITIES EXAM: US Duplex Bilateral Lower Extremities Arteries CLINICAL HISTORY: Reason for exam: ro clots. TECHNIQUE: Real-time duplex ultrasound scan of the bilateral lower extremity arteries integrating B-mode two-dimensional vascular structure, Doppler spectral analysis and color flow Doppler imaging. COMPARISON: No relevant prior studies available. FINDINGS: Right common femoral artery: No acute findings. No occlusion or significant stenosis on color flow and spectral Doppler imaging. Normal waveform. Right superficial femoral artery: No acute findings. No occlusion or significant stenosis on color flow and spectral Doppler imaging. Normal waveform. Right popliteal artery: No acute findings. No occlusion or significant stenosis on color flow and spectral Doppler imaging. Normal waveform. Right calf/foot arteries: No acute findings. No occlusion or significant stenosis on color flow and spectral Doppler imaging. Normal waveform. Left common femoral artery: See below. Left superficial femoral artery: Mildly elevated velocity within the proximal left SFA and common femoral arteries. Monophasic flow seen within the left peroneal and posterior tibial arteries. Left popliteal artery: No acute findings. No occlusion or significant stenosis on color flow and spectral Doppler imaging. Normal waveform. Left calf/foot arteries: See above. Soft tissues: Unremarkable. Other findings: IMPRESSION: 1. Mildly elevated velocities within the proximal left SFA (269 cm/second). 2. Right lower extremity demonstrate no focal stenosis.. Electronically signed by: Joesph Tejeda MD 07/28/23 23:47 PM
--- NOTE | 2023-07-29 | Ultrasound Report ---
Exam(s): US VENOUS BILATERAL LOWER EXTREMITIES EXAM: US Duplex Bilateral Lower Extremities Veins CLINICAL HISTORY: Reason for exam: ro clot. TECHNIQUE: Real-time duplex ultrasound scan of the bilateral lower extremity veins integrating B-mode two-dimensional vascular structure, Doppler spectral analysis, color flow Doppler imaging and compression. COMPARISON: No relevant prior studies available. FINDINGS: Right deep veins: Unremarkable. No DVT in the right common femoral, femoral, proximal deep femoral or popliteal veins. The veins demonstrate normal color flow, are normally compressible, with normal phasic flow and/or augmentation response. Right superficial veins: Unremarkable. No thrombus in the visualized right great saphenous vein. Left deep veins: Unremarkable. No DVT in the left common femoral, femoral, proximal deep femoral or popliteal veins. The veins demonstrate normal color flow, are normally compressible, with normal phasic flow and/or augmentation response. Left superficial veins: Unremarkable. No thrombus in the visualized left great saphenous vein. Soft tissues: No acute findings. No popliteal cyst. IMPRESSION: Normal bilateral lower extremity duplex venous ultrasound. Electronically signed by: Joesph Tejeda MD 07/28/23 23:59 PM
[2023-07-29 01:06] LABS: Hematocrit (blood only) 27.6 % (37.0-47.0); Hemoglobin 9.2 g/dl (12.0-16.0); Mean Corpuscular Hemoglobin 29.5 pg (25.0-34.0); Mean Corpuscular Hgb Conc 33.3 g/dL (32.0-36.0); Mean Corpuscular Volume 88.5 fL (80.0-100.0); Mean Platelet Volume 12.5 fL (9.4-12.4); Platelet Count 40 K/uL (130-400); RDW Coefficient of Variation 14.1 % (11.5-14.5); RDW Standard Deviation 45.3 fL (36.4-46.3); Red Blood Count 3.12 M/uL (4.20-5.40); White Blood Count 10.86 K/ul (4.8-10.8)
--- NOTE | 2023-07-29 01:11 | Magnetic Resonance Report ---
Exam(s): MRI HEAD Without Contrast EXAM: MR Head Without Intravenous Contrast CLINICAL HISTORY: Reason for exam: Evaluate for encephalitis. TECHNIQUE: Magnetic resonance images of the head/brain without intravenous contrast in multiple planes. COMPARISON: No relevant prior studies available. FINDINGS: Brain: Right occipital lobe punctate area of restricted diffusion. Mild T2/flair signal hyperintensity scattered throughout the subcortical and deep white matter. No hemorrhage. Ventricles: Unremarkable. No ventriculomegaly. Bones/joints: Unremarkable. No acute fracture. Sinuses: Unremarkable as visualized. No acute sinusitis. Mastoid air cells: Unremarkable as visualized. No mastoid effusion. Orbits: Unremarkable as visualized. IMPRESSION: Right occipital lobe lacunar infarct Electronically signed by: Joesph Tejeda MD 07/29/23 01:09 AM
[2023-07-29 01:43] LABS: Fibrinogen 433 mg/dl (184-400); Partial Thromboplastin Ratio 1.1; Partial Thromboplastin Time 32 Seconds (21-31); Prothrombin Time 11.4 Seconds (9.0-12.0)
[2023-07-29 01:58] LABS: D Dimer 26970 ug/L FEU (0-500)
[2023-07-29 04:02] LABS: Albumin Level 2.5 gm/dl (3.4-5.0); Bilirubin Direct 0.2 mg/dl (0-0.2); Bilirubin,Total 0.8 mg/dl (0.2-1.0); Total Protein 4.8 gm/dl (6.0-8.3)
[2023-07-29 04:11] LABS: ANTI-Xa, UFH(UnfractionatedHep < 0.10 IU/ml (0.3-0.7)
--- NOTE | 2023-07-29 04:44 | Ultrasound Report ---
Exam(s): US VENOUS BILATERAL UPPER EXTREMITIES EXAM: US Duplex Bilateral Upper Extremities Veins CLINICAL HISTORY: Reason for exam: ro clot. TECHNIQUE: Real-time duplex ultrasound scan of the bilateral upper extremity veins integrating B-mode two-dimensional vascular structure, Doppler spectral analysis, color flow Doppler imaging and compression. COMPARISON: No relevant prior studies available. FINDINGS: Right deep veins: Unremarkable. No DVT in the right internal jugular, subclavian, axillary, or brachial veins. The veins demonstrate normal color flow, are normally compressible, with normal phasic flow and/or augmentation response. Right superficial veins: Unremarkable. No thrombus in the visualized right basilic and cephalic veins. Left deep veins: Unremarkable. No DVT in the left internal jugular, subclavian, axillary, or brachial veins. The veins demonstrate normal color flow, are normally compressible, with normal phasic flow and/or augmentation response. Left superficial veins: There is occlusive thrombus within the left antecubital vein and a short segment of the left distal cephalic vein. Soft tissues: No acute findings. IMPRESSION: No DVT Superficial thrombophlebitis involving the antecubital vein a short segment of the cephalic vein Electronically signed by: Joesph Tejeda MD 07/29/23 04:44 AM
[2023-07-29 05:21] LABS: BUN Creatinine Ratio 27.7 (10-20); Calcium 7.1 mg/dl (8.6-10.3); Creatinine Clr Calc Pharmacy 36.8 ml/min; Est GFR (African American) 40.3 ml/min; Est GFR (Non-African American) 34.8 ml/min; Potassium 3.7 mmol/L (3.5-5.1)
[2023-07-29 05:37] LABS: iSTAT Art Bld Gas pCO2 Correct 29 mmHg (35-46); iSTAT Art Bld Gas pH Corrected 7.473 (7.35-7.45); iSTAT Arterial Blood Gas HCO3 21 meg/L (19-24); iSTAT Arterial Blood Gas pCO2 27 mmHg (35-46); iSTAT Arterial Blood Gas pO2 146 mmHg (80-95); iSTAT Arterial Blood Gas pO2 C 159; iSTAT Carbon Dioxide 22 mmol/L (24-31); iSTAT FiO2 55 %; iSTAT Hematocrit 23 % (37-47); iSTAT Hemoglobin 7.8 g/dl (12.0-16.0); iSTAT Potassium 3.6 mmol/L (3.3-5.0); iSTAT Site R Brachial; iSTAT Sodium 147 mmol/L (135-144)
[2023-07-29] MEDS: INSULIN ASPART PER UNIT CHARGE SC SCH ×2 (05:45→14:37)
[2023-07-29] MEDS ORDERED: Nursing to Pharmacy Communication SCH (05:45)
[2023-07-29 05:53] LABS: Albumin Globulin Ratio 1.1 (0.9-2); Globulin 2.3 gm/dl (2.5-4.0)
[2023-07-29] MEDS ORDERED: STAT IV Infusion **Titration per Protocol STA (06:36)
--- NOTE | 2023-07-29 06:58 | Ultrasound Report ---
ABDOMINAL ULTRASOUND, RIGHT UPPER QUADRANT HISTORY: Acute right upper quadrant abdominal pain RUQ US.. COMPARISON: CT abdomen and pelvis 07/25/2023 FINDINGS: Pancreas: The pancreas demonstrates a normal echotexture. Liver: Increased echogenicity with poor through transmission. No marginal nodularity. No hepatic mass identified. Patent portal vein. Gallbladder: The gallbladder wall measures upper limits of normal at 3 mm. There is mild gallbladder distention. No pericholecystic fluid identified. The sonographic Celis sign was unable to be assesse d secondary to patient condition. Cholelithiasis with gallstones measuring up to 1.8 cm.. CBD: 0.4 cm. Right kidney: No hydronephrosis. IMPRESSION: 1. Cholelithiasis with gallbladder distention and borderline wall thickening. There is no pericholecy stic fluid and the sonographic Celis sign was unable to be assessed. Findings are equivocal for acut e cholecystitis. Findings could be correlated with nuclear medicine hepatobiliary scan. 2. No biliary ductal dilation. 3. Hepatic steatosis. ACT 112: Negative or not required by law. Electronically signed by: Morteza Boogie M.D. 07/29/2023 6:56 AM
[2023-07-29 08:06] LABS: Hematocrit (blood only) 22.9 % (37.0-47.0); Hemoglobin 7.9 g/dl (12.0-16.0); Mean Corpuscular Hemoglobin 30.2 pg (25.0-34.0); Mean Corpuscular Hgb Conc 34.5 g/dL (32.0-36.0); Mean Corpuscular Volume 87.4 fL (80.0-100.0); Platelet Count 38 K/uL (130-400); RDW Coefficient of Variation 14.3 % (11.5-14.5); RDW Standard Deviation 45.6 fL (36.4-46.3); Red Blood Count 2.62 M/uL (4.20-5.40); White Blood Count 10.74 K/ul (4.8-10.8)
[2023-07-29 08:36] LABS: Fibrinogen 387 mg/dl (184-400); Partial Thromboplastin Ratio 1.1; Partial Thromboplastin Time 31 Seconds (21-31); Prothrombin Time 11.1 Seconds (9.0-12.0)
[2023-07-29 08:40] LABS: D Dimer > 35200 ug/L FEU (0-500)
[2023-07-29] MEDS: INSULIN PROTOCOL GOAL RANGE ONE (08:45)
[2023-07-29] MEDS ORDERED: VANCOMYCIN CONSULT ACTIVE PRN (09:14)
[2023-07-29 09:22] LABS: iSTAT Allen Test Pass; iSTAT Art Bld Gas pCO2 Correct 17 mmHg (35-46); iSTAT Art Bld Gas pH Corrected 7.558 (7.35-7.45); iSTAT Arterial Blood Gas HCO3 16 meg/L (19-24); iSTAT Arterial Blood Gas pCO2 18 mmHg (35-46); iSTAT Arterial Blood Gas pH 7.54 (7.35-7.45); iSTAT Arterial Blood Gas pO2 54 mmHg (80-95); iSTAT Arterial Blood Gas pO2 C 50; iSTAT Carbon Dioxide 16 mmol/L (24-31); iSTAT Hematocrit 27 % (37-47); iSTAT Hemoglobin 9.2 g/dl (12.0-16.0); iSTAT Site R Radial; iSTAT Sodium 143 mmol/L (135-144)
[2023-07-29] MEDS: INSULIN REGULAR 250 UNITS in SODIUM CHLORIDE 0.9% 247.5 ML IV SCH (09:24)
[2023-07-29] MEDS: NovoLIN-R BOLUS FROM BAG IV ONE (09:34)
[2023-07-29] MEDS: VANCOMYCIN HCL 1,250 MG in SODIUM CHLORIDE 0.9% 250 ML IV SCH (09:59)
--- NOTE | 2023-07-29 11:10 | Communication Note ---
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 Anti platelet held secondary to concern of GI bleeding. Agree with redd franklin to monitor for s/s of hemorrhage. Monitor neurological assessments/monitor mentation. Obtain stat CT brain without contrast for any neurological deterioration. Consider Zio Patch on discharge. Continue to re-eval for risk benefits of antiplatelet/secondary prevention.
[2023-07-29 12:26] LABS: iSTAT Art Bld Gas pCO2 Correct 46 mmHg (35-46); iSTAT Art Bld Gas pH Corrected 7.345 (7.35-7.45); iSTAT Arterial Blood Gas HCO3 25 meg/L (19-24); iSTAT Arterial Blood Gas pCO2 48 mmHg (35-46); iSTAT Arterial Blood Gas pH 7.34 (7.35-7.45); iSTAT Arterial Blood Gas pO2 < 32 mmHg (80-95); iSTAT Arterial Blood Gas pO2 C 12; iSTAT Carbon Dioxide 27 mmol/L (24-31); iSTAT FiO2 35 %; iSTAT Hematocrit 23 % (37-47); iSTAT Hemoglobin 7.8 g/dl (12.0-16.0); iSTAT Potassium 2.9 mmol/L (3.3-5.0); iSTAT Site L Brachial; iSTAT Sodium 149 mmol/L (135-144)
--- NOTE | 2023-07-29 13:21 | Pharmacy Report ---
Pharmacy PK ABX Note - Date of Service July 29, 2023 - Assessment and Plan Assessment 73 year old F receiving vancomycin/acyclovir/ampicillin/ceftriaxone for empiric treatment of possible meningitis. Patient has Klebsiella pneumoniae bacteremia with urine source, repeat cultures negative at 24 hours. Continuing empiric meningitis antibiotics for now. Plan Vancomycin * Loading dose: 2000 mg IV x 1 * Maintenance dose: 1250 mg IV every 24 hours * Regimen is predicted to achieve target AUC/FLOYD of 400-600 mg/L.hr * Random level ordered for 30 AM Pharmacy will continue to follow and will adjust dose/frequency as necessary. Thank you. Pharmacy has transitioned to AUC monitoring for vancomycin. AUC/FLOYD is the preferred PK/PD target and is associated with decreased risk of nephrotoxicity compared to traditional trough targets.
[2023-07-29] MEDS: TUBE FEEDING WATER FLUSH GT SCH (14:38)
--- NOTE | 2023-07-29 14:54 | CT Scan Report ---
CT SCAN OF THE ABDOMEN AND PELVIS WITHOUT IV CONTRAST CLINICAL HISTORY: Ureteral stone. Clinical concern for perinephric abscess. COMPARISON STUDY: Abdominal CT dated 07/25/2023. TECHNIQUE: CT scan of the abdomen and pelvis is performed from the lung bases to the proximal femora. Images are reviewed in the axial, sagittal, and coronal planes. IV contrast was not administered for this examination. Note that the examination is significantly suboptimal without IV contrast for the reported clinical history. A dose lowering technique was utilized adhering to the principles of ALARA . CT DOSE: 1519.38 mGy.cm FINDINGS: Lung bases: The heart is normal in size and without pericardial effusion. The coronary arteries are d ensely calcified. There are small pleural effusions with dependent consolidation. Liver: The unenhanced liver is enlarged, measuring 19.6 cm in length. The liver demonstrates heteroge neously diminished attenuation indicating steatosis. Fatty sparing is seen adjacent to the gallbladde r fossa. There is no intrahepatic biliary ductal dilatation. Gallbladder: The gallbladder is distended and contains calcified gallstones. There is also vicariousl y excreted contrast within the gallbladder lumen. Spleen: Normal in size and attenuation. Pancreas: The unenhanced pancreas is grossly unremarkable. Adrenal glands: Nodular thickening of the adrenal glands is similar to previous. Kidneys: The unenhanced kidneys are normal in size and without hydronephrosis. A right ureteral stent is new from previous. A 4 mm calculus is seen in the right proximal ureter on image #222 along the c ourse of the stent. This is located at the level of L4. Gas within the right ureter is nonspecific an d likely related to recent dilatation. No additional calculi are clearly identified in the right kidn ey. There are at least 2 small nonobstructing left renal calculi which measure up to 3 mm. A 1.5 cm e xophytic cyst is again seen arising from the left upper pole. Retained cortical contrast is shown in both kidneys and suggests acute renal injury. There is no evidence of perinephric fluid collection. T here is mild right-sided perinephric stranding. Abdominal vasculature: The abdominal aorta is normal in course and caliber noting moderate to advance d atherosclerotic calcification. Bowel: An enteric tube terminates in the mid to distal stomach. A rectal temperature probe is in plac e. No bowel obstruction is seen. Residual enteric contrast is suggested in the right colon. The appen joshua is well-visualized and normal. Peritoneum: There is trace perisplenic ascites as well as trace free fluid in the pelvis. No intraper itoneal free air is identified. There are fat-containing supraumbilical hernias. Lymphadenopathy: None. Pelvic viscera: The bladder is decompressed around a Joshi catheter and contains the distal end of a right ureteral stent. The uterus is surgically absent. No adnexal lesion is seen. Skeletal structures: The skeletal structures are osteopenic. There is mild lumbosacral spondylosis. N o lytic or blastic lesions are seen. IMPRESSION: 1. A right ureteral stent has been placed. A 4 mm calculus is again seen in the right proximal ureter on the course of the stent. 2. There is no hydronephrosis. 3. Foci of gas within the right proximal ureter are nonspecific and likely related to instrumentation . Correlate with urinalysis. 4. There is no evidence of perinephric fluid collection as clinically queried. 5. There is retained cortical contrast present in both kidneys suggesting acute renal injury. Correla te with clinical and laboratory findings. 6. Left-sided nephrolithiasis. 7. Small pleural effusions with dependent consolidation. This likely represents atelectasis. Correlat e clinically. 8. Cholelithiasis. 9. Hepatomegaly and hepatic steatosis. 10. Trace abdominopelvic ascites. 11. Additional findings as above. ACT 112: Negative or not required by law. Electronically signed by: Pravin Nguyen M.D. 07/29/2023 2:52 PM
--- NOTE | 2023-07-29 15:00 | Pharmacy Report ---
Pharmacy Argatroban Consult - Date of Service July 29, 2023 - Pharmacy Dosing Scope Pharmacy is consulted to initiate the use of Argatroban-IV dosing therapy in the setting of possible HIT/ROBERT pending work-up, order appropriate labs and adjust drug dose/frequency. - Subjective Regarding previous anticoagulation: Patient on day # 1 of THERAPEUTIC argatroban heparin infusion was discontinued on 07/28 Start Argatroban-IV for [indication]. Goal PTT Ratio as determined by provider: 2.0 - 3.0 (range is 1.5-3). Pertinent PMH: - Objective Laboratory Results:: Last 24 Hours 07/28/23 07/28/23 07/28/23 16:25 18:03 18:14 Hgb 10.0 L 9.1 L Hct 28.8 L 26.7 L Plt Count 58 L 53 L APTT 35 H PTT Ratio 1.2 BUN 43 H Creatinine 1.41 H 07/29/23 07/29/23 07/29/23 00:34 03:17 07:41 Hgb 9.2 L 7.9 L Hct 27.6 L 22.9 L Plt Count 40 L 38 L APTT 32 H 31 PTT Ratio 1.1 1.1 BUN 41 H Creatinine 1.48 H Last 72 Hours 07/27/23 07/27/23 07/28/23 03:36 08:22 03:55 Plt Count 68 L 60 L INR 1.2 H D-Dimer Total Bilirubin Direct Bilirubin AST ALT 07/28/23 07/28/23 07/28/23 13:33 15:20 16:25 Plt Count 56 L 58 L INR 1.0 1.0 D-Dimer 76459 H* 10039 H* Total Bilirubin 1.1 H Direct Bilirubin 0.2 AST 74 H ALT 37 07/28/23 07/28/23 07/29/23 18:03 18:14 00:34 Plt Count 53 L 40 L INR 1.0 D-Dimer 24618 H* Total Bilirubin 1.0 Direct Bilirubin AST 68 H ALT 34 07/29/23 07/29/23 03:17 07:41 Plt Count 38 L INR 1.0 D-Dimer > 86941 H* Total Bilirubin 0.8 Direct Bilirubin 0.2 AST 57 H ALT 35 - Assessment & Plan Regarding THERAPEUTIC Argatroban-IV: Managed per the [facility] Direct Thrombin Inhibitor Usage Guidelines II.E.13.01(j). D/C all heparin & low molecular weight heparin (LMWH) products. Start Argatroban-IV infusion at 1 mcg/kg/min. o If Active thrombosis, start initial dosage KATIE. o If NO active thrombosis, may consider allowing 3-4 hrs after heparin is stopped or 10 hrs after last therapeutic enoxaparin dose before initiating. Usual starting dose is 0.5-2 mcg/kg/min for HIT or therapeutic anticoagulation. Consider lower starting doses for critical illness, multiple organ dysfunction, heart failure, severe anasarca, or post-cardiac surgery. Usual dose is 0.5mcg/kg/min if Moderate-Severe hepatic impairment (Child-Nguyen Class B/C). If significant hepatic impairment is present, please consider alternative anticoagulation. Goal PTT Ratio as determined by ordering provider: 2 -- 3 (Range is 1.5-3). Monitoring: Steady state achieved in 1-3 hours in most patients without hepatic dysfunction. Clearance is reduced up to 4-fold in patients with hepatic impairment (i.e., steady- state may not be achieved for 4-12hrs). Further dosage adjustments per Clinical Pharmacy & the [facility] Direct Thrombin Inhibitor Usage Guidelines II.E.13.01(j). Adverse Effects: As there is no specific antidote for DTIs or DTI therapy, careful attention is paid to the achievement of optimal dosing without ov erdosing. Any DTI therapy should be discontinued should a major clinical bleeding episode take place. Contraindications to DTI Therapy: Overt, major bleeding, hypersensitivity to the medication or any component. Labs: Baseline/Ongoing Labs: Per P&T approved Anticoagulation Safety, Laboratory Test for Anticoagulants We will continue to monitor this patient and make adjustments as needed. Thank you.
[2023-07-29] MEDS ORDERED: ARGATROBAN CONSULT ACTIVE PRN (15:12)
[2023-07-29 16:23] LABS: Anti Nuclear Antibody Screen NEGATIVE (NEGATIVE)
--- NOTE | 2023-07-29 16:58 | Critical Care Progress Note ---
Date of Service July 29, 2023 Assessment & Plan (1) Septic shock: (2) Hydronephrosis due to obstruction of ureter: (3) Acute kidney injury: (4) HTN (hypertension): (5) Complicated urinary tract infection: (6) Elevated lactic acid level: Plan Reason Critically Ill: 73-year-old female presents to the ICU with septic shock following right ureteral stone with hydronephrosis, status post right ureteral stent. Now hypotensive requiring vasopressor support. 24-hour events: Patient was brought to the ICU yesterday and underwent intubation due to altered mental status and hypoxemic respiratory failure. Antibiotics were broadened. MRI of the brain was obtained which revealed potential small area of stroke.Neurology consultation was completed. Recommendations: Neuro: Encephalopathy. Appears better currently. Neurology following. Small stroke. Cardiac -history of septic shock. Was initially on vasopressors but shock appears to have resolved. No longer on pressors. 2D echo 07/26/2023: EF 50-55%, mild to moderate MR, RV normal in size and function. Echo showed a potential extracardiac shunt physiology. No obvious evidence of AVM on the CT of her chest. Respiratory -hypoxemic respiratory failure necessitating intubation mechanical ventilation. Minimal vent settings currently. History of COPD but no evidence of bronchospasm. Continue lung protective strategy with plans to pursue potent ial vent liberation in the next 24 hours if settings remain minimal and encephalopathy clears GI -initiate trophic tube feeds RENAL/LYTES -mild GRAZYNA. Continue to follow closely. Electrolytes acceptable and acid-base status reasonable currently. At risk for continued deterioration - Obstructive ureteral stone/hydronephrosisstatus post right ureteral stent placement via cystoscope. Management per urology. No evidence of perinephric abscess on imaging study. ENDO - glycemic control per protocol HEME -thrombocytopenia with anemia. No schistocytes on review by hematology. TTP felt to be less likely. Unclear source for the angiopathy. Serotonin release assay is pending. Heparin platelet factor 4 antibody 0.071 with normal being less than 0.4. HIT felt to be less likely. Given her platelet counts, I think proceeding with trial of argatroban is reasonable. If her platelet counts recover, may need to reconsider this diagnosis. Anticoagulation may be beneficial in microthrombosis. ID -urosepsis with Klebsiella bacteremia, pansensitive. Antibiotics were broadened to include potential meningeal sources yesterday. No LP has been performed and platelet counts remain low. Will reassess in the next 24 hours. If persistently febrile or there remains concern for potential meningeal source, transfusion of platelets for an acceptable threshold and lumbar puncture will be considered. Discussed with ID Skin -digital cyanosis with necrosis. Unclear etiology. Complements pending. Cryoglobulins pending. Will continue to watch for demarcation. Will request wound service to evaluate the patient to assist with skin care. --Prophylaxis VTE: Argatroban GI: Pantoprazole Lines: Right IJ Diet: Trophic tube feeds Family updated at bedside. Discussed with patient bedside nurse and on multidisciplinary rounds. The patient is critically ill with significant possibility of clinical deterioration or . A total of 50 minutes in critical care time was spent in evaluation management and stabilization of this patient. Admission and Anticipated Discharge Date Admission Date: July 26, 2023 Subjective Patient is intubated and sedated Review of Systems Review of Systems: Unobtainable due to endotracheal tube Physical Exam Constitutional: Intubated and sedated Neck: trachea midline, no thyromegaly Respiratory: normal respiratory effort, lungs clear to auscultation Cardiovascular: RRR, no murmur, no edema Gastrointestinal (Abdomen): normal bowel sounds, soft, nontender, no hepatosplenomegaly Musculoskeletal: Extremities: extremities normal to inspection Skin: Significant cyanosis on the tibial nerves bilateral hands and feet with necrotic toes and fingertips. Demarcation is pending. Pulses weakly palpable throughout. Neurologic: Nonfocal exam Lymphatic: no cervical lymphadenopathy Results & Data Results & Data Vital Signs (Past 12 Hours) Vital Signs Temp Pulse Resp BP BP Pulse Ox O2 Del Method 07/29/23 16:30 36.5 C 88 20 99 Mechanical Vent 07/29/23 16:15 36.5 C 88 22 99 Mechanical Vent 07/29/23 16:00 114/68 07/29/23 16:00 36.5 C 87 17 99 Mechanical Vent 07/29/23 15:45 36.4 C L 79 20 98 Mechanical Vent 07/29/23 15:45 97/58 L 07/29/23 15:30 36.4 C L 77 20 98 Mechanical Vent 07/29/23 15:30 96/58 L 07/29/23 15:23 78 18 96 07/29/23 15:15 99/60 L 07/29/23 15:15 36.4 C L 81 18 97 Mechanical Vent 07/29/23 15:00 93/60 L 07/29/23 15:00 36.2 C L 78 18 96 Mechanical Vent 07/29/23 14:45 88 18 95 Mechanical Vent 07/29/23 14:45 106/65 07/29/23 14:43 102/65 07/29/23 14:43 90 16 96 Mechanical Vent 07/29/23 14:42 88 18 95 Mechanical Vent 07/29/23 14:19 65/41 L 07/29/23 14:19 36.3 C L 75 18 98 Mechanical Vent 07/29/23 14:18 64/41 L 07/29/23 14:18 36.3 C L 74 18 98 Mechanical Vent 07/29/23 14:15 36.4 C L 75 18 97 Mechanical Vent 07/29/23 14:15 66/42 L 07/29/23 14:00 36.3 C L 91 H 18 91 Mechanical Vent 07/29/23 13:45 36.2 C L 89 19 95 Mechanical Vent 07/29/23 13:45 104/65 07/29/23 13:30 36.2 C L 76 18 96 Mechanical Vent 07/29/23 13:30 84/53 L 07/29/23 13:15 73/49 L 07/29/23 13:15 36.1 C L 74 16 95 Mechanical Vent 07/29/23 13:05 76/51 L 07/29/23 13:05 36.1 C L 76 20 95 Mechanical Vent 07/29/23 13:00 36.1 C L 77 20 94 Mechanical Vent 07/29/23 12:45 36.1 C L 76 21 94 Mechanical Vent 07/29/23 12:45 79/51 L 07/29/23 12:30 36.1 C L 82 20 94 Mechanical Vent 07/29/23 12:15 36.2 C L 85 18 94 Mechanical Vent 07/29/23 12:00 95/58 L 07/29/23 12:00 36.2 C L 87 20 95 Mechanical Vent 07/29/23 12:00 84 20 93 07/29/23 11:45 36.2 C L 91 H 29 H 97 Mechanical Vent 07/29/23 11:45 110/68 07/29/23 11:30 36.0 C L 88 17 98 Mechanical Vent 07/29/23 11:30 105/68 07/29/23 11:00 103/63 07/29/23 11:00 36.2 C L 84 20 98 Mechanical Vent 07/29/23 10:45 104/68 07/29/23 10:45 36.3 C L 88 18 98 Mechanical Vent 07/29/23 10:30 102/67 07/29/23 10:30 36.2 C L 91 H 19 97 Mechanical Vent 07/29/23 10:15 91/60 L 07/29/23 10:15 36.4 C L 84 18 97 Mechanical Vent 07/29/23 10:04 18 07/29/23 10:00 36.4 C L 80 25 H 97 Mechanical Vent 07/29/23 10:00 86/57 L 07/29/23 09:45 94/60 L 07/29/23 09:45 36.5 C 82 25 H 96 Mechanical Vent 07/29/23 09:30 36.7 C 83 25 H 96 Mechanical Vent 07/29/23 09:30 92/60 L 07/29/23 09:15 36.8 C 84 25 H 96 Mechanical Vent 07/29/23 09:15 86/56 L 07/29/23 09:10 Mechanical Vent 07/29/23 09:00 36.9 C 82 25 H 97 Mechanical Vent 07/29/23 09:00 87/55 L 07/29/23 08:30 37.2 C 87 25 H 97 Mechanical Vent 07/29/23 08:00 37.4 C 89 25 H 97 Mechanical Vent 07/29/23 07:45 102/61 07/29/23 07:45 37.5 C 90 25 H 97 Mechanical Vent 07/29/23 07:30 107/64 07/29/23 07:30 37.5 C 93 H 25 H 96 Mechanical Vent 07/29/23 07:27 94 H 26 H 96 07/29/23 07:15 37.6 C H 96 H 25 H 99 Mechanical Vent 07/29/23 07:15 111/66 07/29/23 07:00 115/66 07/29/23 07:00 37.8 C H 96 H 26 H 98 Mechanical Vent 07/29/23 06:45 115/66 07/29/23 06:45 38.0 C H 97 H 28 H 99 Mechanical Vent 07/29/23 06:30 118/66 07/29/23 06:30 38.1 C H 98 H 27 H 99 Mechanical Vent 07/29/23 06:15 119/68 07/29/23 06:15 38.3 C H 99 H 28 H 98 Mechanical Vent 07/29/23 06:00 118/66 07/29/23 06:00 38.4 C H 101 H 27 H 98 07/29/23 06:00 119/68 07/29/23 05:04 25 H 07/29/23 05:00 145/83 H 07/29/23 05:00 38.9 C H 112 H 29 H 94 FiO2 07/29/23 16:30 07/29/23 16:15 07/29/23 16:00 07/29/23 16:00 07/29/23 15:45 07/29/23 15:45 07/29/23 15:30 07/29/23 15:30 07/29/23 15:23 35 07/29/23 15:15 07/29/23 15:15 07/29/23 15:00 07/29/23 15:00 07/29/23 14:45 07/29/23 14:45 07/29/23 14:43 07/29/23 14:43 07/29/23 14:42 07/29/23 14:19 07/29/23 14:19 07/29/23 14:18 07/29/23 14:18 07/29/23 14:15 07/29/23 14:15 07/29/23 14:00 07/29/23 13:45 07/29/23 13:45 07/29/23 13:30 07/29/23 13:30 07/29/23 13:15 07/29/23 13:15 07/29/23 13:05 07/29/23 13:05 07/29/23 13:00 07/29/23 12:45 07/29/23 12:45 07/29/23 12:30 07/29/23 12:15 07/29/23 12:00 07/29/23 12:00 07/29/23 12:00 35 07/29/23 11:45 07/29/23 11:45 07/29/23 11:30 07/29/23 11:30 07/29/23 11:00 07/29/23 11:00 07/29/23 10:45 07/29/23 10:45 07/29/23 10:30 07/29/23 10:30 07/29/23 10:15 07/29/23 10:15 07/29/23 10:04 35 07/29/23 10:00 07/29/23 10:00 07/29/23 09:45 07/29/23 09:45 07/29/23 09:30 07/29/23 09:30 07/29/23 09:15 07/29/23 09:15 07/29/23 09:10 07/29/23 09:00 07/29/23 09:00 07/29/23 08:30 07/29/23 08:00 07/29/23 07:45 07/29/23 07:45 07/29/23 07:30 07/29/23 07:30 07/29/23 07:27 35 07/29/23 07:15 07/29/23 07:15 07/29/23 07:00 07/29/23 07:00 07/29/23 06:45 07/29/23 06:45 07/29/23 06:30 07/29/23 06:30 07/29/23 06:15 07/29/23 06:15 07/29/23 06:00 07/29/23 06:00 07/29/23 06:00 07/29/23 05:04 45 07/29/23 05:00 07/29/23 05:00 Critical Care Results & Data Vital Signs (Past 12 Hours) Vital Signs Temp Pulse Resp BP BP Pulse Ox O2 Del Method 07/29/23 16:30 36.5 C 88 20 99 Mechanical Vent 07/29/23 16:15 36.5 C 88 22 99 Mechanical Vent 07/29/23 16:00 114/68 07/29/23 16:00 36.5 C 87 17 99 Mechanical Vent 07/29/23 15:45 36.4 C L 79 20 98 Mechanical Vent 07/29/23 15:45 97/58 L 07/29/23 15:30 36.4 C L 77 20 98 Mechanical Vent 07/29/23 15:30 96/58 L 07/29/23 15:23 78 18 96 07/29/23 15:15 99/60 L 07/29/23 15:15 36.4 C L 81 18 97 Mechanical Vent 07/29/23 15:00 93/60 L 07/29/23 15:00 36.2 C L 78 18 96 Mechanical Vent 07/29/23 14:45 88 18 95 Mechanical Vent 07/29/23 14:45 106/65 07/29/23 14:43 102/65 07/29/23 14:43 90 16 96 Mechanical Vent 07/29/23 14:42 88 18 95 Mechanical Vent 07/29/23 14:19 65/41 L 07/29/23 14:19 36.3 C L 75 18 98 Mechanical Vent 07/29/23 14:18 64/41 L 07/29/23 14:18 36.3 C L 74 18 98 Mechanical Vent 07/29/23 14:15 36.4 C L 75 18 97 Mechanical Vent 07/29/23 14:15 66/42 L 07/29/23 14:00 36.3 C L 91 H 18 91 Mechanical Vent 07/29/23 13:45 36.2 C L 89 19 95 Mechanical Vent 07/29/23 13:45 104/65 07/29/23 13:30 36.2 C L 76 18 96 Mechanical Vent 07/29/23 13:30 84/53 L 07/29/23 13:15 73/49 L 07/29/23 13:15 36.1 C L 74 16 95 Mechanical Vent 07/29/23 13:05 76/51 L 07/29/23 13:05 36.1 C L 76 20 95 Mechanical Vent 07/29/23 13:00 36.1 C L 77 20 94 Mechanical Vent 07/29/23 12:45 36.1 C L 76 21 94 Mechanical Vent 07/29/23 12:45 79/51 L 07/29/23 12:30 36.1 C L 82 20 94 Mechanical Vent 07/29/23 12:15 36.2 C L 85 18 94 Mechanical Vent 07/29/23 12:00 95/58 L 07/29/23 12:00 36.2 C L 87 20 95 Mechanical Vent 07/29/23 12:00 84 20 93 07/29/23 11:45 36.2 C L 91 H 29 H 97 Mechanical Vent 07/29/23 11:45 110/68 07/29/23 11:30 36.0 C L 88 17 98 Mechanical Vent 07/29/23 11:30 105/68 07/29/23 11:00 103/63 07/29/23 11:00 36.2 C L 84 20 98 Mechanical Vent 07/29/23 10:45 104/68 07/29/23 10:45 36.3 C L 88 18 98 Mechanical Vent 07/29/23 10:30 102/67 07/29/23 10:30 36.2 C L 91 H 19 97 Mechanical Vent 07/29/23 10:15 91/60 L 07/29/23 10:15 36.4 C L 84 18 97 Mechanical Vent 07/29/23 10:04 18 07/29/23 10:00 36.4 C L 80 25 H 97 Mechanical Vent 07/29/23 10:00 86/57 L 07/29/23 09:45 94/60 L 07/29/23 09:45 36.5 C 82 25 H 96 Mechanical Vent 07/29/23 09:30 36.7 C 83 25 H 96 Mechanical Vent 07/29/23 09:30 92/60 L 07/29/23 09:15 36.8 C 84 25 H 96 Mechanical Vent 07/29/23 09:15 86/56 L 07/29/23 09:10 Mechanical Vent 07/29/23 09:00 36.9 C 82 25 H 97 Mechanical Vent 07/29/23 09:00 87/55 L 07/29/23 08:30 37.2 C 87 25 H 97 Mechanical Vent 07/29/23 08:00 37.4 C 89 25 H 97 Mechanical Vent 07/29/23 07:45 102/61 07/29/23 07:45 37.5 C 90 25 H 97 Mechanical Vent 07/29/23 07:30 107/64 07/29/23 07:30 37.5 C 93 H 25 H 96 Mechanical Vent 07/29/23 07:27 94 H 26 H 96 07/29/23 07:15 37.6 C H 96 H 25 H 99 Mechanical Vent 07/29/23 07:15 111/66 07/29/23 07:00 115/66 07/29/23 07:00 37.8 C H 96 H 26 H 98 Mechanical Vent 07/29/23 06:45 115/66 07/29/23 06:45 38.0 C H 97 H 28 H 99 Mechanical Vent 07/29/23 06:30 118/66 07/29/23 06:30 38.1 C H 98 H 27 H 99 Mechanical Vent 07/29/23 06:15 119/68 07/29/23 06:15 38.3 C H 99 H 28 H 98 Mechanical Vent 07/29/23 06:00 118/66 07/29/23 06:00 38.4 C H 101 H 27 H 98 07/29/23 06:00 119/68 07/29/23 05:04 25 H 07/29/23 05:00 145/83 H 07/29/23 05:00 38.9 C H 112 H 29 H 94 FiO2 07/29/23 16:30 07/29/23 16:15 07/29/23 16:00 07/29/23 16:00 07/29/23 15:45 07/29/23 15:45 07/29/23 15:30 07/29/23 15:30 07/29/23 15:23 35 07/29/23 15:15 07/29/23 15:15 07/29/23 15:00 07/29/23 15:00 07/29/23 14:45 07/29/23 14:45 07/29/23 14:43 07/29/23 14:43 07/29/23 14:42 07/29/23 14:19 07/29/23 14:19 07/29/23 14:18 07/29/23 14:18 07/29/23 14:15 07/29/23 14:15 07/29/23 14:00 07/29/23 13:45 07/29/23 13:45 07/29/23 13:30 07/29/23 13:30 07/29/23 13:15 07/29/23 13:15 07/29/23 13:05 07/29/23 13:05 07/29/23 13:00 07/29/23 12:45 07/29/23 12:45 07/29/23 12:30 07/29/23 12:15 07/29/23 12:00 07/29/23 12:00 07/29/23 12:00 35 07/29/23 11:45 07/29/23 11:45 07/29/23 11:30 07/29/23 11:30 07/29/23 11:00 07/29/23 11:00 07/29/23 10:45 07/29/23 10:45 07/29/23 10:30 07/29/23 10:30 07/29/23 10:15 07/29/23 10:15 07/29/23 10:04 35 07/29/23 10:00 07/29/23 10:00 07/29/23 09:45 07/29/23 09:45 07/29/23 09:30 07/29/23 09:30 07/29/23 09:15 07/29/23 09:15 07/29/23 09:10 07/29/23 09:00 07/29/23 09:00 07/29/23 08:30 07/29/23 08:00 07/29/23 07:45 07/29/23 07:45 07/29/23 07:30 07/29/23 07:30 07/29/23 07:27 35 07/29/23 07:15 07/29/23 07:15 07/29/23 07:00 07/29/23 07:00 07/29/23 06:45 07/29/23 06:45 07/29/23 06:30 07/29/23 06:30 07/29/23 06:15 07/29/23 06:15 07/29/23 06:00 07/29/23 06:00 07/29/23 06:00 07/29/23 05:04 45 07/29/23 05:00 07/29/23 05:00 Lab & Micro Results (Past 24 Hours) RBC 2.62 M/uL (4.20-5.40) L 07/29/23 WBC 10.74 K/ul (4.8-10.8) 07/29/23 Hgb 7.9 g/dl (12.0-16.0) L 07/29/23 Hct 22.9 % (37.0-47.0) L 07/29/23 MCV 87.4 fL (80.0-100.0) 07/29/23 MCH 30.2 pg (25.0-34.0) 07/29/23 MCHC 34.5 g/dL (32.0-36.0) 07/29/23 RDW Standard Deviation 45.6 fL (36.4-46.3) 07/29/23 RDW Coefficient of Variation 14.3 % (11.5-14.5) 07/29/23 Plt Count 38 K/uL (130-400) L 07/29/23 MPV 13.0 fL (9.4-12.4) H 07/29/23 Nucleated Red Blood Cells % (auto) 0.2 % 07/28 Nucleated RBC Absolute Count (auto) 0.02 K/uL (0.00-0.12) 0 07/28/23 Neutrophils (%) (Auto) 90.4 % 07/28/23 Lymphocytes (%) (Auto) 3.9 % 07/28/23 Monocytes # (Auto) 0.45 K/uL (0.11-0.59) 07/28/23 Eosinophils # (Auto) 0.02 K/uL (0.00-0.50) 07/28/23 Immature Granulocyte % (Auto) 0.8 % 07/28/23 Neutrophils # (Auto) 9.57 K/uL (1.40-6.50) H 07/28/23 Lymphocytes # (Auto) 0.41 K/uL (1.20-3.40) L 07/28/23 Monocytes # (Auto) 0.45 K/uL (0.11-0.59) 07/28/23 Eosinophils # (Auto) 0.02 K/uL (0.00-0.50) 07/28/23 Basophils # (Auto) 0.05 K/uL (0.00-0.20) 07/28/23 Immature Granulocyte # (Auto) 0.09 K/uL (0.01-0.20) 4 Hyposegmented Neutrophils 1+ 07/28/23 Polychromasia 1+ 07/28/23 Dohle Bodies 1+ 07/28/23 Na 145 mmol/L (136-145) 07/29/23 K 3.7 mmol/L (3.5-5.1) 07/29/23 Cl 111 mmol/L (98-107) H 07/29/23 CO2 23 mmol/L (21-32) 07/29/23 Anion Gap 11 (3-11) 07/29/23 BUN 41 mg/dl (6-23) H 07/29/23 Creatinine 1.48 mg/dl (0.6-1.2) H 07/29/23 Estimated GFR ( Amer) 40.3 ml/min 07/29/23 Estimated GFR (Non-Af Amer) 34.8 ml/min 07/29/23 BUN/Creatinine Ratio 27.7 (10-20) H 07/29/23 Glu 302 mg/dl (70-99(Fasting)) H* 07/29/23 Ca 7.1 mg/dl (8.6-10.3) L 07/29/23 Total Bilirubin 0.8 mg/dl (0.2-1.0) 07/29/23 Direct Bilirubin 0.2 mg/dl (0-0.2) 07/29/23 AST 57 U/L (13-39) H 07/29/23 ALT 35 U/L (7-52) 07/29/23 Alkaline Phosphatase 93 U/L (34-104) 07/29/23 TP 4.8 gm/dl (6.0-8.3) L 07/29/23 Albumin 2.5 gm/dl (3.4-5.0) L 07/29/23 Globulin 2.3 gm/dl (2.5-4.0) L 07/29/23 Albumin/Globulin Ratio 1.1 (0.9-2) 07/29/23 Calcium Level 7.1 mg/dl (8.6-10.3) L 07/29/23 03:17 Prothromb Time International Ratio 1.0 (0.9-1.1) 07/29/23 07:4 1 Damion Test NA 07/29/23 11:58 Microbiology 07/27/23 22:27 Aerobic Blood Culture - Preliminary Blood No growth in Aerobic bottle after 24 hours. Anaerobic Blood Culture - Preliminary No growth in Anaerobic bottle after 24 hours. 07/27/23 22:27 Aerobic Blood Culture - Preliminary Blood No growth in Aerobic bottle after 24 hours. Anaerobic Blood Culture - Preliminary No growth in Anaerobic bottle after 24 hours. Diagnostic Findings (Past 24 Hours) Abdomen Ultrasound 07/28/23 08:15 ABDOMINAL ULTRASOUND, RIGHT UPPER QUADRANT HISTORY: Acute right upper quadrant abdominal pain RUQ US.. COMPARISON: CT abdomen and pelvis 07/25/2023 FINDINGS: Pancreas: The pancreas demonstrates a normal echotexture. Liver: Increased echogenicity with poor through transmission. No marginal nodularity. No hepatic mass identified. Patent portal vein. Gallbladder: The gallbladder wall measures upper limits of normal at 3 mm. There is mild gallbladder distention. No pericholecystic fluid identified. The sonographic Celis sign was unable to be assessed secondary to patient condition. Cholelithiasis with gallstones measuring up to 1.8 cm.. CBD: 0.4 cm. Right kidney: No hydronephrosis. IMPRESSION: 1. Cholelithiasis with gallbladder distention and borderline wall thickening. There is no pericholecystic fluid and the sonographic Celis sign was unable to be assessed. Findings are equivocal for acute cholecystitis. Findings could be correlated with nuclear medicine hepatobiliary scan. 2. No biliary ductal dilation. 3. Hepatic steatosis. ACT 112: Negative or not required by law. Electronically signed by: Morteza Boogie M.D. 07/29/2023 6:56 AM Venous Doppler Study 07/28/23 13:31 Exam(s): US VENOUS BILATERAL LOWER EXTREMITIES EXAM: US Duplex Bilateral Lower Extremities Veins CLINICAL HISTORY: Reason for exam: ro clot. TECHNIQUE: Real-time duplex ultrasound scan of the bilateral lower extremity veins integrating B-mode two-dimensional vascular structure, Doppler spectral analysis, color flow Doppler imaging and compression. COMPARISON: No relevant prior studies available. FINDINGS: Right deep veins: Unremarkable. No DVT in the right common femoral, femoral, proximal deep femoral or popliteal veins. The veins demonstrate normal color flow, are normally compressible, with normal phasic flow and/or augmentation response. Right superficial veins: Unremarkable. No thrombus in the visualized right great saphenous vein. Left deep veins: Unremarkable. No DVT in the left common femoral, femoral, proximal deep femoral or popliteal veins. The veins demonstrate normal color flow, are normally compressible, with normal phasic flow and/or augmentation response. Left superficial veins: Unremarkable. No thrombus in the visualized left great saphenous vein. Soft tissues: No acute findings. No popliteal cyst. IMPRESSION: Normal bilateral lower extremity duplex venous ultrasound. Electronically signed by: Joesph Tejeda MD 07/28/23 23:59 PM Venous Doppler Study 07/28/23 13:36 Exam(s): US VENOUS BILATERAL UPPER EXTREMITIES EXAM: US Duplex Bilateral Upper Extremities Veins CLINICAL HISTORY: Reason for exam: ro clot. TECHNIQUE: Real-time duplex ultrasound scan of the bilateral upper extremity veins integrating B-mode two-dimensional vascular structure, Doppler spectral analysis, color flow Doppler imaging and compression. COMPARISON: No relevant prior studies available. FINDINGS: Right deep veins: Unremarkable. No DVT in the right internal jugular, subclavian, axillary, or brachial veins. The veins demonstrate normal color flow, are normally compressible, with normal phasic flow and/or augmentation response. Right superficial veins: Unremarkable. No thrombus in the visualized right basilic and cephalic veins. Left deep veins: Unremarkable. No DVT in the left internal jugular, subclavian, axillary, or brachial veins. The veins demonstrate normal color flow, are normally compressible, with normal phasic flow and/or augmentation response. Left superficial veins: There is occlusive thrombus within the left antecubital vein and a short segment of the left distal cephalic vein. Soft tissues: No acute findings. IMPRESSION: No DVT Superficial thrombophlebitis involving the antecubital vein a short segment of the cephalic vein Electronically signed by: Joesph Tejeda MD 07/29/23 04:44 AM Duplex Scan Lower Extremity Artery 07/28/23 15:15 Exam(s): US ARTERIAL BILATERAL LOWER EXTREMITIES EXAM: US Duplex Bilateral Lower Extremities Arteries CLINICAL HISTORY: Reason for exam: ro clots. TECHNIQUE: Real-time duplex ultrasound scan of the bilateral lower extremity arteries integrating B-mode two-dimensional vascular structure, Doppler spectral analysis and color flow Doppler imaging. COMPARISON: No relevant prior studies available. FINDINGS: Right common femoral artery: No acute findings. No occlusion or significant stenosis on color flow and spectral Doppler imaging. Normal waveform. Right superficial femoral artery: No acute findings. No occlusion or significant stenosis on color flow and spectral Doppler imaging. Normal waveform. Right popliteal artery: No acute findings. No occlusion or significant stenosis on color flow and spectral Doppler imaging. Normal waveform. Right calf/foot arteries: No acute findings. No occlusion or significant stenosis on color flow and spectral Doppler imaging. Normal waveform. Left common femoral artery: See below. Left superficial femoral artery: Mildly elevated velocity within the proximal left SFA and common femoral arteries. Monophasic flow seen within the left peroneal and posterior tibial arteries. Left popliteal artery: No acute findings. No occlusion or significant stenosis on color flow and spectral Doppler imaging. Normal waveform. Left calf/foot arteries: See above. Soft tissues: Unremarkable. Other findings: IMPRESSION: 1. Mildly elevated velocities within the proximal left SFA (269 cm/second). 2. Right lower extremity demonstrate no focal stenosis.. Electronically signed by: Joesph Tejeda MD 07/28/23 23:47 PM Chest X-Ray 07/28/23 16:37 XR chest 1V portable CLINICAL HISTORY: rr elevated TECHNIQUE: Single frontal radiograph of the chest was obtained. Comparison: Comparison is made to chest radiograph 07/26/2023 FINDINGS: Right IJ catheter terminates in the IVC. Calcified aortic knob is seen. Faint bibasilar airspace opacities are seen. Small bilateral pleural effusions are seen. IMPRESSION: Faint bibasilar airspace opacities which may represent atelectasis, pneumonia, and/or aspiration. Small bilateral pleural effusions. ACT 112: Negative or not required by law. Electronically signed by: Jomar Palomo M.D. 07/28/2023 5:04 PM Chest X-Ray 07/28/23 18:25 XR chest 1V portable CLINICAL HISTORY: s/p intubation TECHNIQUE: Single frontal radiograph of the chest was obtained. Comparison: Comparison is made to chest radiograph 07/28/2023 FINDINGS: Endotracheal tube terminates 3 cm from the clarissa. An enteric tube tip and side port lie below the diaphragm. The right jugular venous catheter terminates in the mid SVC. The cardiomediastinal silhouette is normal. Previously noted airspace opacities are somewhat less prominent on this exam. Small bilateral pleural effusions are seen. IMPRESSION: 1. Satisfactory position of endotracheal tube and enteric tube. 2. Small bilateral pleural effusions. 3. Interval improvement in bibasilar airspace opacities which may represent decreased atelectasis. ACT 112: Negative or not required by law. Electronically signed by: Jomar Palomo M.D. 07/28/2023 6:50 PM Brain MRI 07/28/23 19:06 Exam(s): MRI HEAD Without Contrast EXAM: MR Head Without Intravenous Contrast CLINICAL HISTORY: Reason for exam: Evaluate for encephalitis. TECHNIQUE: Magnetic resonance images of the head/brain without intravenous contrast in multiple planes. COMPARISON: No relevant prior studies available. FINDINGS: Brain: Right occipital lobe punctate area of restricted diffusion. Mild T2/flair signal hyperintensity scattered throughout the subcortical and deep white matter. No hemorrhage. Ventricles: Unremarkable. No ventriculomegaly. Bones/joints: Unremarkable. No acute fracture. Sinuses: Unremarkable as visualized. No acute sinusitis. Mastoid air cells: Unremarkable as visualized. No mastoid effusion. Orbits: Unremarkable as visualized. IMPRESSION: Right occipital lobe lacunar infarct Electronically signed by: Joesph Tejeda MD 07/29/23 01:09 AM Abdomen/Pelvis CT 07/29/23 13:02 CT SCAN OF THE ABDOMEN AND PELVIS WITHOUT IV CONTRAST CLINICAL HISTORY: Ureteral stone. Clinical concern for perinephric abscess. COMPARISON STUDY: Abdominal CT dated 07/25/2023. TECHNIQUE: CT scan of the abdomen and pelvis is performed from the lung bases to the proximal femora. Images are reviewed in the axial, sagittal, and coronal planes. IV contrast was not administered for this examination. Note that the examination is significantly suboptimal without IV contrast for the reported clinical history. A dose lowering technique was utilized adhering to the principles of ALARA. CT DOSE: 1519.38 mGy.cm FINDINGS: Lung bases: The heart is normal in size and without pericardial effusion. The coronary arteries are densely calcified. There are small pleural effusions with dependent consolidation. Liver: The unenhanced liver is enlarged, measuring 19.6 cm in length. The liver demonstrates heterogeneously diminished attenuation indicating steatosis. Fatty sparing is seen adjacent to the gallbladder fossa. There is no intrahepatic biliary ductal dilatation. Gallbladder: The gallbladder is distended and contains calcified gallstones. There is also vicariously excreted contrast within the gallbladder lumen. Spleen: Normal in size and attenuation. Pancreas: The unenhanced pancreas is grossly unremarkable. Adrenal glands: Nodular thickening of the adrenal glands is similar to previous. Kidneys: The unenhanced kidneys are normal in size and without hydronephrosis. A right ureteral stent is new from previous. A 4 mm calculus is seen in the right proximal ureter on image #222 along the course of the stent. This is located at the level of L4. Gas within the right ureter is nonspecific and likely related to recent dilatation. No additional calculi are clearly identified in the right kidney. There are at least 2 small nonobstructing left renal calculi which measure up to 3 mm. A 1.5 cm exophytic cyst is again seen arising from the left upper pole. Retained cortical contrast is shown in both kidneys and suggests acute renal injury. There is no evidence of perinephric fluid collection. There is mild right-sided perinephric stranding. Abdominal vasculature: The abdominal aorta is normal in course and caliber noting moderate to advanced atherosclerotic calcification. Bowel: An enteric tube terminates in the mid to distal stomach. A rectal temperature probe is in place. No bowel obstruction is seen. Residual enteric contrast is suggested in the right colon. The appendix is well-visualized and normal. Peritoneum: There is trace perisplenic ascites as well as trace free fluid in the pelvis. No intraperitoneal free air is identified. There are fat-containing supraumbilical hernias. Lymphadenopathy: None. Pelvic viscera: The bladder is decompressed around a Joshi catheter and contains the distal end of a right ureteral stent. The uterus is surgically absent. No adnexal lesion is seen. Skeletal structures: The skeletal structures are osteopenic. There is mild lumbosacral spondylosis. No lytic or blastic lesions are seen. IMPRESSION: 1. A right ureteral stent has been placed. A 4 mm calculus is again seen in the right proximal ureter on the course of the stent. 2. There is no hydronephrosis. 3. Foci of gas within the right proximal ureter are nonspecific and likely related to instrumentation. Correlate with urinalysis. 4. There is no evidence of perinephric fluid collection as clinically queried. 5. There is retained cortical contrast present in both kidneys suggesting acute renal injury. Correlate with clinical and laboratory findings. 6. Left-sided nephrolithiasis. 7. Small pleural effusions with dependent consolidation. This likely represents atelectasis. Correlate clinically. 8. Cholelithiasis. 9. Hepatomegaly and hepatic steatosis. 10. Trace abdominopelvic ascites. 11. Additional findings as above. ACT 112: Negative or not required by law. Electronically signed by: Pravin Nguyen M.D. 07/29/2023 2:52 PM I & O Totals 24 Hours 07/28/23 07/29/23 07/30/23 06:59 06:59 06:59 Intake Total 581.433 / 844.700 8232.308 / 3927.308 959.977 / 959.977 Output Total 2400 / 2400 1475 / 1475 325 / 325 Balance -1818.567 / -2288.250 3564.308 / 2452.308 634.977 / 634.977 Cumulative 07/25/23 18:26 thru 07/29/23 16:00 Intake Total 77740.445 Output Total 6322 Balance 7173.445 RT Ventilator Mngmt (Last Documented) Ventilator Ordered Settings Ventilator Support Mode Assist Control 07/29/23 15:23 Respiratory Rate 20 07/29/23 16:30 Ventilator Tidal Volume 300 07/29/23 15:23 Setting Minute Ventilation 5.4 07/29/23 15:23 Positive End Expiratory 8 07/29/23 15:23 Pressure Fraction of Inspired Oxygen 35 07/29/23 15:23 Machine Comment SpO2 98% FiO2 decreased from 50% 07/28/23 22:16 to 40% Last [place] [facility]ER CCM made aware Ventilator - PT Measurements Respiratory Rate 20 Exhaled Tidal Volume 300 Minute Ventilation 5.4 Peak Inspiratory Airway 18 Pressure Plateau Pressure 15.1 Respiratory Cycle Inspiratory: 1:4.1 Expiratory Ratio Inspiratory Phase Time 0.65 End-Tidal CO2 33 Static Lung Compliance 42.25 Dynamic Lung Compliance 30.00 Normal Static Lung Compliance 47.00 Patient Measurements Comment RR decreased to [address] Santos ABG in 1 hour Coding Level of Care Code 39751 CRITICAL CARE 1ST 30-74M Diagnoses Septic shock A41.9; R65.21 Hydronephrosis due to obstruction of ureter N13.1 Acute kidney injury N17.9 HTN (hypertension) I10 Complicated urinary tract infection N39.0 Elevated lactic acid level R79.89
--- NOTE | 2023-07-29 17:05 | Hospitalist Progress Note ---
Date of Service July 29, 2023 Assessment & Plan (1) Encephalopathy: Plan: 73-year-old lady with PMH of HTN, HLD, T2DM, HCV status posttreatment, anxiety/mood disorder was brought in with complaint of confusion for about 1 day duration. She could not get words out. Of note, she had home test for COVID-19 positive about 2 weeks ago [facility], had self-limited cough symptoms. Also she had noted right flank pain complaints since about 1 week ago [facility] [employer] associated with not feeling well & a/w poor appetite. She is being managed for the following: ADMITTING IMANGINGS: Admitting CXR with no acute finding. Admitting CT head with no acute finding. Admitting CTA head WNL. Admitting CTA neck with moderate left ICA stenosis and possible high risk/ulcerated plaque in this location. Admitting CTA chest with no PE. Admitting CTAP with mild right hydronephrosis, secondary to 2 into 5 mm stone in the mid ureter. Concern for right pyelonephritis. No perinephric abscess. Cholelithiasis without acute cholecystitis. Complicated UTI Urolithiasis and obstructive uropathy Urosepsis Severe sepsis POA: Secondary to above. Respiratory rate/pulse rate/WBC elevated at presentation. Lactate and procalcitonin elevated at presentation. Septic shock: Patient's blood pressure did not improve despite aggressive fluid resuscitation, was transferred to ICU for pressor support requirement at admission. Likely metabolic encephalopathy: Secondary to above Gram-negative bacteremia: 07/25 blood culture positive for Klebsiella pneumoniae in 2 of 4 bottles. Repeat blood culture 07/27 pending. Patient presented with using, about a week worth of right flank pain. Poor appetite and not feeling well. UA suggestive of UTI, admitting CTAP with renal stone and concern for right pyelonephritis Initially admitted in ICU, needed pressor support, s/p pressors 07/26 afternoon. 07/25 Bl Cx - K. Pneumoniae; 07/26 Urine Cx - K Pneumoniae 07/27 Bl Cx - Pending. Follow Urology evaluated, status post cystoscopy and right retrograde pyelogram/right ureteral stent placement 07/26/2023 Patient was started on cefepime 07/26, to ceftriaxone 07/27, d/w ID 07/28 - agreed w/ Rx. Continue. CTAP repeated 07/29 for concern of perinephric abscess, which was ruled out. Management per ICU. Acute metabolic encephalopathy Acute fever Thrombocytopenia Patient had developed acrocyanosis and nasal tip cyanosis overnight of 07/26- 07/27. Patient has been off of pressor support [vasopressin and Levophed] since 07/26 afternoon. 07/27 - pulses very strong on exam. Duplex arterial scan of UE and LE WNL. Venous Doppler BLE negative for DVT. Patient was started on heparin drip and Solu-Medrol for concern of cryoglobulinemia. 07/28 - acrocyanosis progressed, pulses became weak, patient became more confused. See subjective 07/28. 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 Peripheral blood smear with no schistocytes. TTP HUS ruled out. DIC from sepsis versus ischemic necrosis from recent pressor use was contemplated as DD for acrocyanosis. Later in the evening patient was transferred to ICU and was intubated due to tachypnea/shallow breathing. She also developed fever, and started on vancomycin/acyclovir/ampicillin on top of Rocephin in the line of encephalitis versus meningitis. Lumbar puncture was deferred due to dropping platelets. MRI brain was obtained which revealed punctate right occipital lobe lacunar infarct. 07/29 -patient continues on antimicrobial therapy, vitals are getting better. Afebrile currently. Patient is intubated and is being managed per ICU protocol. Argatroban started. New onset anemia Likely UGIB Prior hemoglobin level 13.9, admitting hemoglobin 11.1 Hemoccult positive melanotic stool noted at the ER GI evaluated 07/26, PPI drip changed to twice daily. Monitor H&H and transfuse as needed. Will likely need follow-up with GI as an outpatient. Anemia workup, transfuse PRBC if hemoglobin less than 8 and or for symptomatic anemia TF started due to intubated status. Right occipital lobe lacunar infarct x small: Head and neck imagings reviewed as above. 07/29 MRI w/ punctate right occipital lobe lacunar infarct. Neurology consulted, appreciate recommendation. Continue neurochecks. A1c 7.1; LDL 12. Will need antiplatelet consideration once out of acute issues. currently beign anticoagulated w/ argatroban, see above. Zio patch as an outpatient. Acute kidney injury: Admitting creatinine of 1.6, past creatinine 0.89. Status post IV fluid, s/p pressor support. Likely prerenal secondary to septic shock. Cr hovering around 1.5. Labs in AM. Likely type II NSTEMI: Troponin elevated likely secondary to acute sepsis. Patient with no chest pain. EKG with sinus tachycardia. No acute ST or T changes. Echo with EF of 50 to 55%, no interatrial septum or sound physiology. No regional wall motion abnormalities. Other chronic medical conditions: Continue with/resume home meds as and when able. Hypertension, monitor BP as pt's condition is critical and BP will fluctuate. resume home bp meds as able. hyperlipidemia, on statin Rx. Continue DM2 on oral medications, reasonable control as of recent hemoglobin A1c of 7.1 last March 2023 HCV status post Rx Recent COVID-19 illness from 2 weeks ago, monitor respiratory symptoms. DVT prophylaxis. SCDs Re: UGIB Full code Patient daughter Ms. Delores Barney, contact #[phone]. Updated 07/27 over the phone, answered all her questions. She voiced understanding and was agreeable to plan of care. Updated multiple times 07/28. Updated 07/29 over the phone, explained to Delores that Pt is started on multiple antimicrobials for concern of meningitis/encephalitis, argatroban for concern of dic. Also made her aware of punctate stroke noted in brain mri 07/28. She voiced understanding and was agreeable to plan of care. Text document was generated using [employer] voice recognition software. It may contain grammatical or spelling errors. Kindly contact undersigned for clarification of any documentation item in question. Admission and Anticipated Discharge Date Admission Date: July 26, 2023 Subjective Patient was seen and examined at bedside several times today. Patient was seen and examined at bedside. Patient was intubated and mechanically ventilated. Sedated. ROS not able. Fentanyl drip running. Physical Exam Physical Exam: GENERAL: Intubated, sedated, ventilated, not responsive. HEENT: No pallor, no icterus. Pupils equal, round and reactive to light. Oral mucosa very dry. Nasal tip cynosis noted. NECK: No JVD, no neck masses. HEART: S1 and S2 heard. RRR. No murmur, no gallop. RESPIRATORY SYSTEM: Normal AP diameter. No accessory muscle use. No wheezing, no crackles. ABDOMEN: Soft,no distention. CENTRAL NERVOUS SYSTEM: No facial droop. EXTREMITIES: acrocyanosis noted -stable, trace BLE edema. Results & Data Results & Data Vital Signs (Past 12 Hours) Vital Signs Temp Pulse Resp BP BP Pulse Ox O2 Del Method 07/29/23 15:30 36.4 C L 77 20 98 Mechanical Vent 07/29/23 15:30 96/58 L 07/29/23 15:23 78 18 96 07/29/23 15:15 99/60 L 07/29/23 15:15 36.4 C L 81 18 97 Mechanical Vent 07/29/23 15:00 93/60 L 07/29/23 15:00 36.2 C L 78 18 96 Mechanical Vent 07/29/23 14:45 88 18 95 Mechanical Vent 07/29/23 14:45 106/65 07/29/23 14:43 102/65 07/29/23 14:43 90 16 96 Mechanical Vent 07/29/23 14:42 88 18 95 Mechanical Vent 07/29/23 14:19 65/41 L 07/29/23 14:19 36.3 C L 75 18 98 Mechanical Vent 07/29/23 14:18 64/41 L 07/29/23 14:18 36.3 C L 74 18 98 Mechanical Vent 07/29/23 14:15 36.4 C L 75 18 97 Mechanical Vent 07/29/23 14:15 66/42 L 07/29/23 14:00 36.3 C L 91 H 18 91 Mechanical Vent 07/29/23 13:45 36.2 C L 89 19 95 Mechanical Vent 07/29/23 13:45 104/65 07/29/23 13:30 36.2 C L 76 18 96 Mechanical Vent 07/29/23 13:30 84/53 L 07/29/23 13:15 73/49 L 07/29/23 13:15 36.1 C L 74 16 95 Mechanical Vent 07/29/23 13:05 76/51 L 07/29/23 13:05 36.1 C L 76 20 95 Mechanical Vent 07/29/23 13:00 36.1 C L 77 20 94 Mechanical Vent 07/29/23 12:45 36.1 C L 76 21 94 Mechanical Vent 07/29/23 12:45 79/51 L 07/29/23 12:30 36.1 C L 82 20 94 Mechanical Vent 07/29/23 12:15 36.2 C L 85 18 94 Mechanical Vent 07/29/23 12:00 95/58 L 07/29/23 12:00 36.2 C L 87 20 95 Mechanical Vent 07/29/23 12:00 84 20 93 07/29/23 11:45 36.2 C L 91 H 29 H 97 Mechanical Vent 07/29/23 11:45 110/68 07/29/23 11:30 36.0 C L 88 17 98 Mechanical Vent 07/29/23 11:30 105/68 07/29/23 11:00 103/63 07/29/23 11:00 36.2 C L 84 20 98 Mechanical Vent 07/29/23 10:45 104/68 07/29/23 10:45 36.3 C L 88 18 98 Mechanical Vent 07/29/23 10:30 102/67 07/29/23 10:30 36.2 C L 91 H 19 97 Mechanical Vent 07/29/23 10:15 91/60 L 07/29/23 10:15 36.4 C L 84 18 97 Mechanical Vent 07/29/23 10:04 18 07/29/23 10:00 36.4 C L 80 25 H 97 Mechanical Vent 07/29/23 10:00 86/57 L 07/29/23 09:45 94/60 L 07/29/23 09:45 36.5 C 82 25 H 96 Mechanical Vent 07/29/23 09:30 36.7 C 83 25 H 96 Mechanical Vent 07/29/23 09:30 92/60 L 07/29/23 09:15 36.8 C 84 25 H 96 Mechanical Vent 07/29/23 09:15 86/56 L 07/29/23 09:10 Mechanical Vent 07/29/23 09:00 36.9 C 82 25 H 97 Mechanical Vent 07/29/23 09:00 87/55 L 07/29/23 08:30 37.2 C 87 25 H 97 Mechanical Vent 07/29/23 08:00 37.4 C 89 25 H 97 Mechanical Vent 07/29/23 07:45 102/61 07/29/23 07:45 37.5 C 90 25 H 97 Mechanical Vent 07/29/23 07:30 107/64 07/29/23 07:30 37.5 C 93 H 25 H 96 Mechanical Vent 07/29/23 07:27 94 H 26 H 96 07/29/23 07:15 37.6 C H 96 H 25 H 99 Mechanical Vent 07/29/23 07:15 111/66 07/29/23 07:00 115/66 07/29/23 07:00 37.8 C H 96 H 26 H 98 Mechanical Vent 07/29/23 06:45 115/66 07/29/23 06:45 38.0 C H 97 H 28 H 99 Mechanical Vent 07/29/23 06:30 118/66 07/29/23 06:30 38.1 C H 98 H 27 H 99 Mechanical Vent 07/29/23 06:15 119/68 07/29/23 06:15 38.3 C H 99 H 28 H 98 Mechanical Vent 07/29/23 06:00 118/66 07/29/23 06:00 38.4 C H 101 H 27 H 98 07/29/23 06:00 119/68 07/29/23 05:04 25 H 07/29/23 05:00 145/83 H 07/29/23 05:00 38.9 C H 112 H 29 H 94 FiO2 07/29/23 15:30 07/29/23 15:30 07/29/23 15:23 35 07/29/23 15:15 07/29/23 15:15 07/29/23 15:00 07/29/23 15:00 07/29/23 14:45 07/29/23 14:45 07/29/23 14:43 07/29/23 14:43 07/29/23 14:42 07/29/23 14:19 07/29/23 14:19 07/29/23 14:18 07/29/23 14:18 07/29/23 14:15 07/29/23 14:15 07/29/23 14:00 07/29/23 13:45 07/29/23 13:45 07/29/23 13:30 07/29/23 13:30 07/29/23 13:15 07/29/23 13:15 07/29/23 13:05 07/29/23 13:05 07/29/23 13:00 07/29/23 12:45 07/29/23 12:45 07/29/23 12:30 07/29/23 12:15 07/29/23 12:00 07/29/23 12:00 07/29/23 12:00 35 07/29/23 11:45 07/29/23 11:45 07/29/23 11:30 07/29/23 11:30 07/29/23 11:00 07/29/23 11:00 07/29/23 10:45 07/29/23 10:45 07/29/23 10:30 07/29/23 10:30 07/29/23 10:15 07/29/23 10:15 07/29/23 10:04 35 07/29/23 10:00 07/29/23 10:00 07/29/23 09:45 07/29/23 09:45 07/29/23 09:30 07/29/23 09:30 07/29/23 09:15 07/29/23 09:15 07/29/23 09:10 07/29/23 09:00 07/29/23 09:00 07/29/23 08:30 07/29/23 08:00 07/29/23 07:45 07/29/23 07:45 07/29/23 07:30 07/29/23 07:30 07/29/23 07:27 35 07/29/23 07:15 07/29/23 07:15 07/29/23 07:00 07/29/23 07:00 07/29/23 06:45 07/29/23 06:45 07/29/23 06:30 07/29/23 06:30 07/29/23 06:15 07/29/23 06:15 07/29/23 06:00 07/29/23 06:00 07/29/23 06:00 07/29/23 05:04 45 07/29/23 05:00 07/29/23 05:00
--- NOTE | 2023-07-29 17:16 | Infectious Disease Consult ---
Date of Service July 29, 2023 Telehealth Information I performed this visit using a real-time telehealth connection between my location and the patients location ([facility]). After connecting through interactive tele-video, patient was identified by name and date of and/or wristband check.Patient (or authorized healthcare healthcare representative) was informed that this was a telemedicine visit and it was being conducted confidentially over secure lines. My office door was closed and no one else was present in the room with me.Patient (or authorized healthcare healthcare representative) provided consent to proceed with the visit, expressed an understanding of privacy and security of the telemedicine visit, and gave permission to have a hospital healthcare representative in the room in order to assist with the visit and to conduct portions of the visit, as needed. I informed the patient (or authorized healthcare healthcare representative) that I reviewed their record and presented the opportunity for them to ask any questions regarding the visit today. The patient agreed to participate. Assessment & Plan (1) Bacteremia: Plan: The patient was being adequately treated with ceftriaxone for her ruiz-S KPN bacteremia. Her repeat BCX were negative and a repeat CT scan did not reveal a new process (eg renal abscess). My suspicion is that the initial infection has been driving her illness (which is now complicated by possible DIC). I agree with CCM that a new bacterial or viral MINE SAFETY MANAGER infection on top of a known bacterial infection (and a stroke) seems unlikely. However, I cannot be absolutely certain. I am aware that the patient is now receiving MINE SAFETY MANAGER-dosed antibacterials and antiviral (acyclovir) pending an LP. I will defer this to the IM/CCM service however if the goal is to use MINE SAFETY MANAGER-dosed ABX while ruling out a MINE SAFETY MANAGER infection, then make sure that the ABX covers the Klebsiella and also cross the BBB (the most common regimen used for this purpose would be ampicillin plus ceftriaxone - and as an example, when used for MINE SAFETY MANAGER infections, the dose/frequency of ceftriaxone changes to 2g q12h). Discus all ABX dosing with your pharmacist. The above recommendations are not final. ID coverage changes frequently. Use the on-call schedule to find out who is covering your facility. Then, contact ID for updated recommendations. History of Present Illness History of Present Illness The patient was admitted on 07/26 with anorexia and flank pain (in the setting of recent COVID-19). CT of the A/P revealed an obstructing stone. Urology took the patient to the OR for ureteral stent placement. The patient developed septic shock and was started on pressors. Blood and urine cultures grew Klebsiella. [Note that the patient had AMS and therefore Neurology was consulted. Neurology suspected toxic metabolic encephalopathy but was unable to rule out stroke. 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 The patients hemodynamics improved and she was weaned from pressors. Subsequently, she developed thrombocytopenia and Hematolog y was consulted. They suspected DIC. The patients mental status declined further and she was intubated and transferred to the ICU. The patient was noted to have acrocyanosis and was started on argatroban. Allergies Allergy/AdvReac Type Severity Reaction Status Date / Time No Known Allergies Allergy Verified 07/25/23 19:50 Home Medications Medication Instructions Recorded Confirmed Type lisinopril 10 mg tablet 10 mg PO QAM 11/14/20 07/25/23 History atorvastatin 40 mg tablet 40 mg PO QAM 07/25/23 07/25/23 History calcium carbonate 1,000 mg-vitamin 1 tab PO DAILY 07/25/23 07/25/23 History D3 20 mcg (800 unit) tablet cyanocobalamin (vitamin B-12) 1,000 mcg PO QAM 07/25/23 07/25/23 History 1,000 mcg tablet ibandronate 150 mg tablet 150 mg PO .EVERY 30 DAYS 07/25/23 07/25/23 History metformin 1,000 mg tablet 1,000 mg PO BIDWMEAL 07/25/23 07/25/23 History venlafaxine 150 mg 150 mg PO DAILY 07/25/23 07/25/23 History capsule,extended release 24 hr Patient History Medical History (Updated 07/29/23 @ 17:18 by Conor Echavarria DO) Fever 41 degrees C or over Acute encephalopathy History of COVID-19 History of colon polyps Anxiety HTN (hypertension) Surgical History S/P wrist surgery History of colonoscopy History of hysterectomy History of tonsillectomy Family History Grandmother Family history of diabetes mellitus Family history of colon cancer Grandfather Family history of colon cancer Aunt Family history of colon cancer Uncle Family history of colon cancer Social History Smoking Status: Current some day smoker Tobacco Type: Cigarettes Second Hand Exposure: No; Do You Dip or Chew Tobacco: No; Hx Alcohol Use: No Hx Substance Use: No Preferred Language: Trinidadian Communication Ability: Effective Bakery Helper Required: No Beliefs That Will Affect Care: None Current Living Situation: Family Current Living Situation Comment: Pt's grandsonIlir lives with her Feels Safe at Home: Yes Assistive Devices: None Review of Systems Unable to obtain - patient intubated. RN reports that there are no wounds that appear to be infected. Physical Exam Vitals: see EMR Exam very limited due to constraints of telemedicine and intubated pt Gen/Constitutional: appears at stated age, acutely ill HEENT: orally intubated Card: cyanosis noted UEs, LEs and nose Resp: symmetric chest rise Results & Data Vital Signs (Past 12 Hours) Vital Signs Temp Pulse Resp BP BP Pulse Ox O2 Del Method 07/29/23 16:30 36.5 C 88 20 99 Mechanical Vent 07/29/23 16:15 36.5 C 88 22 99 Mechanical Vent 07/29/23 16:00 114/68 07/29/23 16:00 36.5 C 87 17 99 Mechanical Vent 07/29/23 15:45 36.4 C L 79 20 98 Mechanical Vent 07/29/23 15:45 97/58 L 07/29/23 15:30 36.4 C L 77 20 98 Mechanical Vent 07/29/23 15:30 96/58 L 07/29/23 15:23 78 18 96 07/29/23 15:15 99/60 L 07/29/23 15:15 36.4 C L 81 18 97 Mechanical Vent 07/29/23 15:00 93/60 L 07/29/23 15:00 36.2 C L 78 18 96 Mechanical Vent 07/29/23 14:45 88 18 95 Mechanical Vent 07/29/23 14:45 106/65 07/29/23 14:43 102/65 07/29/23 14:43 90 16 96 Mechanical Vent 07/29/23 14:42 88 18 95 Mechanical Vent 07/29/23 14:19 65/41 L 07/29/23 14:19 36.3 C L 75 18 98 Mechanical Vent 07/29/23 14:18 64/41 L 07/29/23 14:18 36.3 C L 74 18 98 Mechanical Vent 07/29/23 14:15 36.4 C L 75 18 97 Mechanical Vent 07/29/23 14:15 66/42 L 07/29/23 14:00 36.3 C L 91 H 18 91 Mechanical Vent 07/29/23 13:45 36.2 C L 89 19 95 Mechanical Vent 07/29/23 13:45 104/65 07/29/23 13:30 36.2 C L 76 18 96 Mechanical Vent 07/29/23 13:30 84/53 L 07/29/23 13:15 73/49 L 07/29/23 13:15 36.1 C L 74 16 95 Mechanical Vent 07/29/23 13:05 76/51 L 07/29/23 13:05 36.1 C L 76 20 95 Mechanical Vent 07/29/23 13:00 36.1 C L 77 20 94 Mechanical Vent 07/29/23 12:45 36.1 C L 76 21 94 Mechanical Vent 07/29/23 12:45 79/51 L 07/29/23 12:30 36.1 C L 82 20 94 Mechanical Vent 07/29/23 12:15 36.2 C L 85 18 94 Mechanical Vent 07/29/23 12:00 95/58 L 07/29/23 12:00 36.2 C L 87 20 95 Mechanical Vent 07/29/23 12:00 84 20 93 07/29/23 11:45 36.2 C L 91 H 29 H 97 Mechanical Vent 07/29/23 11:45 110/68 07/29/23 11:30 36.0 C L 88 17 98 Mechanical Vent 07/29/23 11:30 105/68 07/29/23 11:00 103/63 07/29/23 11:00 36.2 C L 84 20 98 Mechanical Vent 07/29/23 10:45 104/68 07/29/23 10:45 36.3 C L 88 18 98 Mechanical Vent 07/29/23 10:30 102/67 07/29/23 10:30 36.2 C L 91 H 19 97 Mechanical Vent 07/29/23 10:15 91/60 L 07/29/23 10:15 36.4 C L 84 18 97 Mechanical Vent 07/29/23 10:04 18 07/29/23 10:00 36.4 C L 80 25 H 97 Mechanical Vent 07/29/23 10:00 86/57 L 07/29/23 09:45 94/60 L 07/29/23 09:45 36.5 C 82 25 H 96 Mechanical Vent 07/29/23 09:30 36.7 C 83 25 H 96 Mechanical Vent 07/29/23 09:30 92/60 L 07/29/23 09:15 36.8 C 84 25 H 96 Mechanical Vent 07/29/23 09:15 86/56 L 07/29/23 09:10 Mechanical Vent 07/29/23 09:00 36.9 C 82 25 H 97 Mechanical Vent 07/29/23 09:00 87/55 L 07/29/23 08:30 37.2 C 87 25 H 97 Mechanical Vent 07/29/23 08:00 37.4 C 89 25 H 97 Mechanical Vent 07/29/23 07:45 102/61 07/29/23 07:45 37.5 C 90 25 H 97 Mechanical Vent 07/29/23 07:30 107/64 07/29/23 07:30 37.5 C 93 H 25 H 96 Mechanical Vent 07/29/23 07:27 94 H 26 H 96 07/29/23 07:15 37.6 C H 96 H 25 H 99 Mechanical Vent 07/29/23 07:15 111/66 07/29/23 07:00 115/66 07/29/23 07:00 37.8 C H 96 H 26 H 98 Mechanical Vent 07/29/23 06:45 115/66 07/29/23 06:45 38.0 C H 97 H 28 H 99 Mechanical Vent 07/29/23 06:30 118/66 07/29/23 06:30 38.1 C H 98 H 27 H 99 Mechanical Vent 07/29/23 06:15 119/68 07/29/23 06:15 38.3 C H 99 H 28 H 98 Mechanical Vent 07/29/23 06:00 118/66 07/29/23 06:00 38.4 C H 101 H 27 H 98 07/29/23 06:00 119/68 FiO2 07/29/23 16:30 07/29/23 16:15 07/29/23 16:00 07/29/23 16:00 07/29/23 15:45 07/29/23 15:45 07/29/23 15:30 07/29/23 15:30 07/29/23 15:23 35 07/29/23 15:15 07/29/23 15:15 07/29/23 15:00 07/29/23 15:00 07/29/23 14:45 07/29/23 14:45 07/29/23 14:43 07/29/23 14:43 07/29/23 14:42 07/29/23 14:19 07/29/23 14:19 07/29/23 14:18 07/29/23 14:18 07/29/23 14:15 07/29/23 14:15 07/29/23 14:00 07/29/23 13:45 07/29/23 13:45 07/29/23 13:30 07/29/23 13:30 07/29/23 13:15 07/29/23 13:15 07/29/23 13:05 07/29/23 13:05 07/29/23 13:00 07/29/23 12:45 07/29/23 12:45 07/29/23 12:30 07/29/23 12:15 07/29/23 12:00 07/29/23 12:00 07/29/23 12:00 35 07/29/23 11:45 07/29/23 11:45 07/29/23 11:30 07/29/23 11:30 07/29/23 11:00 07/29/23 11:00 07/29/23 10:45 07/29/23 10:45 07/29/23 10:30 07/29/23 10:30 07/29/23 10:15 07/29/23 10:15 07/29/23 10:04 35 07/29/23 10:00 07/29/23 10:00 07/29/23 09:45 07/29/23 09:45 07/29/23 09:30 07/29/23 09:30 07/29/23 09:15 07/29/23 09:15 07/29/23 09:10 07/29/23 09:00 07/29/23 09:00 07/29/23 08:30 07/29/23 08:00 07/29/23 07:45 07/29/23 07:45 07/29/23 07:30 07/29/23 07:30 07/29/23 07:27 35 07/29/23 07:15 07/29/23 07:15 07/29/23 07:00 07/29/23 07:00 07/29/23 06:45 07/29/23 06:45 07/29/23 06:30 07/29/23 06:30 07/29/23 06:15 07/29/23 06:15 07/29/23 06:00 07/29/23 06:00 07/29/23 06:00 Laboratory Results Reviewed; see [place] [address] / Director: Lamberto Reed M.D. Clinical Laboratory Report L Name: ALEXIS GALEANO Acct: [id number] Status: ADM IN : 1950 [facility] Date: 07/26/23 Age: 73 Sex: F Dis Date: Loc: ICU Surgical [address] [place] [address]/Bed: [facility] Spec: [id number] Collected: 07/25/23 Received: 07/25/[address]: Agustin Smith M.D. Source: Blood OV Order: Ordered: Blood Culture Comments: Comment Default is separate sites, same time Blood culture drawn venously from Left Arm. Blood culture drawn venously from Left Arm. Procedure Result Verified Site Blood Culture Aerobic Preliminary 07/28/23-0653 Organism 1 Klebsiella pneumoniae Sens Sensitivities to Follow Kleb pneum RX M.I.C. --- --------- Amox/Clav S <=8/4 Amp/Sul S <=8/4 Cefazolin S <=2 Cefepime S <=2 Ceftriaxone S <=1 Ciprofloxacin S <=0.25 Ertapenem S <=0.5 Gentamicin S <=4 Levofloxacin S <=0.5 Meropenem S <=1 Tobramycin S <=4 Trimeth/Sulfa S <=2/38 Pip/Tazo S <=16 S = SENSITIVE I = INTERMEDIATE R = RESISTANT Blood Culture Anaerobic Final 07/27/23 Test not performed Name: ALEXIS GALEANO : 1950 PAGE 1 Printed: 07/29/23 9113 END OF REPORT [address], [place] [address] / Director: Lamberto Reed M.D. Clinical Laboratory Report Name: ALEXIS GALEANO Acct: [id number] Status: ADM IN : 1950 [facility] Date: 07/26/23 Age: 73 Sex: F Dis Date: Loc: ICU Surgical [address] [place] [address]/Bed: [facility] Spec: [id number] Collected: 07/25/23 Received: 07/25/23-[address]: Agustin Smith M.D. Source: Blood OV Order: Ordered: Blood Culture Comments: Comment Default is separate sites, same time Blood culture drawn venously from Left Hand. Blood culture drawn venously from Left Hand. Procedure Result Verified Site Blood Culture Aerobic Preliminary 07/28/23 Organism 1 Klebsiella pneumoniae Sens No Sensitivities to Follow Blood Culture PCR Panel If viewing in EMR, results available under LAB Serology tab. Please see culture number [id number] for sensitivities. Critical result called to MARY CARNES On 07/26/23 at 0920 by Bridgett Fitch and results were verbalized back. Blood Culture Anaerobic Final 07/27/23-714 Test not performed Name: ALEXIS GALEANO : 1950 PAGE 1 Printed: 07/29/23 [id number] END OF REPORT [address], [place] [address] / Director: Lamberto Reed M.D. Clinical Laboratory Report Name: ALEXIS GALEANO Ann-Marie Acct: [id number] Status: ADM IN : 1950 [facility] Date: 07/26/23 Age: 73 Sex: F Dis Date: Loc: ICU Surgical [address] [place] [address]/Bed: [facility] Spec: [id number] Collected: 07/26/23 Received: 07/26/23-[address]: Agustin Smith M.D. Source: Urine,Straight Cath OV Order: Ordered: Urine Culture Procedure Result Verified Site Urine Culture Final 07/28/23 Organism 1 Klebsiella pneumoniae [place] Count >100,000 CFU/ml Sens Sensitivities to Follow Kleb pneum RX M.I.C. --- --------- Amox/Clav S <=8/4 Amp/Sul S <=8/4 Cefazolin S <=2 Cefepime S <=2 Ceftriaxone S <=1 Ciprofloxacin S <=0.25 Ertapenem S <=0.5 Gentamicin S <=4 Levofloxacin S <=0.5 Meropenem S <=1 Nitrofurantoin S <=32 Tobramycin S <=4 Trimeth/Sulfa S <=2/38 Pip/Tazo S <=16 S = SENSITIVE I = INTERMEDIATE R = RESISTANT Name: ALEXIS GALEANO : 1950 PAGE 1 Printed: 07/29/23 2386 END OF REPORT
[2023-07-29 19:38] LABS: Hematocrit (blood only) 26.4 % (37.0-47.0); Hemoglobin 8.6 g/dl (12.0-16.0); Mean Corpuscular Hemoglobin 29.6 pg (25.0-34.0); Mean Corpuscular Hgb Conc 32.6 g/dL (32.0-36.0); Mean Corpuscular Volume 90.7 fL (80.0-100.0); Platelet Count 14 K/uL (130-400); RDW Coefficient of Variation 14.5 % (11.5-14.5); RDW Standard Deviation 48.3 fL (36.4-46.3); Red Blood Count 2.91 M/uL (4.20-5.40); White Blood Count 22.54 K/ul (4.8-10.8)
[2023-07-29 20:00] LABS: Fibrinogen 334 mg/dl (184-400); INR 2.2 (0.9-1.1); Partial Thromboplastin Ratio 2.2; Partial Thromboplastin Time 61 Seconds (21-31); Prothrombin Time 22.6 Seconds (9.0-12.0)
[2023-07-29 20:02] LABS: D Dimer 26870 ug/L FEU (0-500)
[2023-07-29 23:52] LABS: Partial Thromboplastin Time 55 Seconds (21-31)
[2023-07-30] MEDS: PHARMACY ARGATROBAN RATE CHANGE ONE ×3 (00:34→04:58)
[2023-07-30 03:37] LABS: iSTAT Art Bld Gas pCO2 Correct 41 mmHg (35-46); iSTAT Art Bld Gas pH Corrected 7.366 (7.35-7.45); iSTAT Arterial Blood Gas HCO3 24 meg/L (19-24); iSTAT Arterial Blood Gas pCO2 41 mmHg (35-46); iSTAT Arterial Blood Gas pH 7.36 (7.35-7.45); iSTAT Arterial Blood Gas pO2 83 mmHg (80-95); iSTAT Arterial Blood Gas pO2 C 83; iSTAT Carbon Dioxide 25 mmol/L (24-31); iSTAT FiO2 35 %; iSTAT Hematocrit 25 % (37-47); iSTAT Hemoglobin 8.5 g/dl (12.0-16.0); iSTAT Potassium 3.6 mmol/L (3.3-5.0); iSTAT Site L Brachial; iSTAT Sodium 148 mmol/L (135-144)
[2023-07-30 04:04] LABS: Partial Thromboplastin Ratio 2.4; Partial Thromboplastin Time 67 Seconds (21-31)
[2023-07-30 05:31] LABS: Est GFR (African American) 52.4 ml/min; Potassium 3.6 mmol/L (3.5-5.1)
[2023-07-30 05:32] LABS: BUN Creatinine Ratio 33.6 (10-20); Calcium 6.9 mg/dl (8.6-10.3); Creatinine Clr Calc Pharmacy 46.9 ml/min; Est GFR (Non-African American) 45.3 ml/min; Magnesium 2.6 mg/dl (1.7-2.4); Phosphorus 2.4 mg/dl (2.5-4.9)
[2023-07-30] MEDS ORDERED: POTASSIUM PHOS 3 MMOL/1 ML INFUSION IV STA (05:59)
[2023-07-30 06:00] LABS: Hematocrit (blood only) 25.6 % (37.0-47.0); Hemoglobin 8.5 g/dl (12.0-16.0); Mean Corpuscular Hemoglobin 29.9 pg (25.0-34.0); Mean Corpuscular Hgb Conc 33.2 g/dL (32.0-36.0); Mean Corpuscular Volume 90.1 fL (80.0-100.0); Mean Platelet Volume 13.8 fL (9.4-12.4); Nucleated RBC # (auto) 0.03 K/uL (0.00-0.12); Nucleated RBC % (auto) 0.1 %; Platelet Count 28 K/uL (130-400); RDW Coefficient of Variation 14.6 % (11.5-14.5); RDW Standard Deviation 47.8 fL (36.4-46.3); Red Blood Count 2.84 M/uL (4.20-5.40); White Blood Count 25.11 K/ul (4.8-10.8)
[2023-07-30 06:01] LABS: Basophils # (auto) 0.14 K/uL (0.00-0.20); Basophils % (auto) 0.6 %; Immature Granulocytes # (auto) 0.64 K/uL (0.01-0.20); Immature Granulocytes % (auto) 2.5 %; Lymphocytes # (auto) 1.27 K/uL (1.20-3.40); Lymphocytes % (auto) 5.1 %; Monocytes # (auto) 1.85 K/uL (0.11-0.59); Monocytes % (auto) 7.4 %; Neutrophils # (auto) 21.21 K/uL (1.40-6.50); Neutrophils % (auto) 84.4 %; Platelet Estimate Signific. Decreased (Normal)
[2023-07-30] MEDS: POTASSIUM PHOSPHATE 15 MMOL in SODIUM CHLORIDE 0.9% 250 ML IV ONE (06:14)
[2023-07-30 08:02] LABS: Partial Thromboplastin Ratio 2.2; Partial Thromboplastin Time 62 Seconds (21-31)
--- NOTE | 2023-07-30 08:27 | Critical Care Progress Note ---
Date of Service July 30, 2023 Assessment & Plan (1) Septic shock: (2) Hydronephrosis due to obstruction of ureter: (3) Acute kidney injury: (4) HTN (hypertension): (5) Complicated urinary tract infection: (6) Elevated lactic acid level: Plan Reason Critically Ill: 73-year-old female presents to the ICU with septic shock following right ureteral stone with hydronephrosis, status post right ureteral stent. Now hypotensive requiring vasopressor support. 24-hour events: Patient started on argatroban empirically yesterday. Low-dose phenylephrine started back with sedation related hypotension. Recommendations: Neuro: Intubated for encephalopathy. Currently sedated on the ventilator. Will provide sedation break and reassess. Small stroke noted on MRI. Antiplatelet agents indicated once platelet counts above 50,000. Neurology notes reviewed Cardiac -history of septic shock. 2D echo 07/26/2023: EF 50-55%, mild to moderate MR, RV normal in size and function. Echo showed a potential extracardi ac shunt physiology. No obvious evidence of AVM on the CT of her chest. Restarted phenylephrine yesterday due to sedation related hypotension. Hopefully will wean off today. Respiratory -hypoxemic respiratory failure necessitating intubation mechanical ventilation. Minimal vent settings currently. Will plan on pursuing and sedation break followed by spontaneous breathing trial and trial of ventilator liberation if meets criteria. GI -hold tube feeds in hopes of possible ventilator liberation later today. RENAL/LYTES -mild GRAZYNA. Continue to follow closely. Electrolytes acceptable. Acid-base status shows non anion gap metabolic acidosis. 1 dose of bicarb this morning. - Obstructive ureteral stone/hydronephrosisstatus post right ureteral stent placement via cystoscope. Management per urology. No evidence of perinephric abscess on imaging study. Will need outpatient urology follow-up ENDO - glycemic control per protocol HEME -thrombocytopenia with anemia. Discussed extensively with hematology oncology today. No schistocytes on his review of the smear or on pathology. Will repeat LDH and peripheral smear today. ADAMTS 13 pending but unlikely. Hematology feels this is likely secondary to DIC. P4 antibody negative so unlikely to be HIT. Argatroban will be discontinued. Hematology recommends holding on anticoagulation until platelet counts are above 50,000. No indication for total plasma exchange IVIG at this time. Will recheck LDH and haptoglobin as well as retake count. Total plasma exchange not available at this institution would likely require the patient be transferred to a higher level of care. COVID hypercoagulable state may also be contributing and treatment would be higher dose anticoagulation however given her low platelets and DIC picture, hematology favors holding all anticoagulation for now ID -urosepsis with Klebsiella bacteremia, pansensitive. Discussed with ID yesterday. She has been afebrile for 48 hours. Her white blood cell count is increased today currently receiving vancomycin, ceftriaxone, ampicillin, and acyclovir. Given the empiric initiation of meningeal antibiotics, may need to consider lumbar puncture. Will discuss with interventional radiology their threshold if the patient remains encephalopathic off sedation. If her mental status improves, these antibiotics can likely be discontinued. Will need to continue to cover the Klebsiella. She is already receiving Solu-Medrol at 40 mg every 12 hours. Patient was also positive for COVID. This may contributing to her hypercoagulable state Skin -digital cyanosis with necrosis. Unclear etiology. Complements pending. Cryoglobulins pending. Will continue to watch for demarcation. Continue local wound care --Prophylaxis VTE: Holding given low platelets GI: Pantoprazole Lines: Right IJ Diet: Trophic tube feeds Family updated at bedside. Discussed with patient bedside nurse and on multidisciplinary rounds. The patient is critically ill with significant possibility of clinical deterioration or . A total of 45 minutes in critical care time was spent in evaluation management and stabilization of this patient. Admission and Anticipated Discharge Date Admission Date: July 26, 2023 Subjective Patient seen and examined. EMR reviewed. She remains intubated and sedated Review of Systems Review of Systems: Unobtainable due to endotracheal tube Physical Exam Constitutional: Intubated and sedated Neck: trachea midline, no thyromegaly Respiratory: normal respiratory effort, lungs clear to auscultation Cardiovascular: RRR, no murmur, no edema Gastrointestinal (Abdomen): normal bowel sounds, soft, nontender, no hepatosplenomegaly Musculoskeletal: Extremities: extremities normal to inspection Skin: Cyanotic/necrotic distal extremities and tip of the nose unchanged from prior. Extremities cool to touch Lymphatic: no cervical lymphadenopathy Results & Data Results & Data Vital Signs (Past 12 Hours) Vital Signs Temp Pulse Resp BP Pulse Ox FiO2 07/30/23 07:10 81 07/30/23 06:30 36.9 C 82 19 98 07/30/23 06:15 37.0 C 82 15 99 07/30/23 06:00 37.0 C 76 18 98 07/30/23 06:00 106/68 07/30/23 05:45 37.0 C 78 18 98 07/30/23 05:30 37.0 C 78 18 98 07/30/23 05:15 111/66 07/30/23 05:15 37.0 C 78 18 98 07/30/23 05:00 110/67 07/30/23 05:00 37.0 C 80 18 97 07/30/23 04:45 109/66 07/30/23 04:45 37.0 C 80 18 97 07/30/23 04:30 37.0 C 78 18 96 07/30/23 04:30 106/60 07/30/23 04:15 115/69 07/30/23 04:15 37.0 C 81 18 97 07/30/23 04:00 118/65 07/30/23 04:00 36.9 C 84 18 97 07/30/23 04:00 35 07/30/23 03:45 120/73 07/30/23 03:45 36.9 C 91 H 22 96 07/30/23 03:30 36.9 C 93 H 18 100 07/30/23 03:30 117/73 07/30/23 03:26 83 19 97 35 07/30/23 03:15 36.9 C 85 18 96 07/30/23 03:00 116/67 07/30/23 03:00 36.9 C 83 18 96 07/30/23 02:45 36.9 C 79 18 98 07/30/23 02:45 107/61 07/30/23 02:30 36.9 C 78 18 98 07/30/23 02:30 105/61 07/30/23 02:15 36.9 C 78 18 98 07/30/23 02:15 104/57 L 07/30/23 02:00 36.8 C 77 18 98 07/30/23 02:00 103/58 L 07/30/23 01:45 36.8 C 77 18 98 07/30/23 01:45 101/59 L 07/30/23 01:30 36.8 C 77 18 97 07/30/23 01:15 36.8 C 78 18 97 07/30/23 01:00 36.9 C 77 18 98 07/30/23 00:45 36.8 C 77 18 97 07/30/23 00:45 102/60 07/30/23 00:30 36.8 C 78 18 97 07/30/23 00:15 36.8 C 79 18 97 07/30/23 00:15 106/60 07/30/23 00:00 80 07/30/23 00:00 36.8 C 80 18 96 07/30/23 00:00 102/59 L 07/30/23 00:00 35 07/29/23 23:45 106/62 07/29/23 23:45 36.8 C 82 18 96 07/29/23 23:30 115/62 07/29/23 23:30 36.8 C 86 19 95 07/29/23 23:15 123/69 07/29/23 23:15 36.8 C 94 H 16 96 07/29/23 23:00 36.7 C 91 H 18 95 07/29/23 22:46 36.7 C 91 H 18 92 07/29/23 22:46 115/65 07/29/23 22:45 36.7 C 92 H 18 91 07/29/23 22:30 36.7 C 82 17 95 07/29/23 22:21 82 18 95 35 07/29/23 22:15 36.7 C 85 20 95 07/29/23 22:00 120/62 07/29/23 22:00 36.7 C 92 H 17 94 07/29/23 21:46 36.7 C 103 H 17 91 07/29/23 21:46 124/74 07/29/23 21:45 36.7 C 102 H 16 92 07/29/23 21:30 36.8 C 84 20 97 07/29/23 21:30 101/55 L 07/29/23 21:15 36.9 C 82 18 97 07/29/23 21:15 96/55 L 07/29/23 21:00 37.0 C 82 18 98 07/29/23 21:00 97/64 L 07/29/23 20:45 37.0 C 82 18 99 07/29/23 20:45 108/68 07/29/23 20:30 37.0 C 82 20 99 07/29/23 20:30 107/64 Critical Care Results & Data Vital Signs (Past 12 Hours) Vital Signs Temp Pulse Resp BP Pulse Ox FiO2 07/30/23 07:10 81 07/30/23 06:30 36.9 C 82 19 98 07/30/23 06:15 37.0 C 82 15 99 07/30/23 06:00 37.0 C 76 18 98 07/30/23 06:00 106/68 07/30/23 05:45 37.0 C 78 18 98 07/30/23 05:30 37.0 C 78 18 98 07/30/23 05:15 111/66 07/30/23 05:15 37.0 C 78 18 98 07/30/23 05:00 110/67 07/30/23 05:00 37.0 C 80 18 97 07/30/23 04:45 109/66 07/30/23 04:45 37.0 C 80 18 97 07/30/23 04:30 37.0 C 78 18 96 07/30/23 04:30 106/60 07/30/23 04:15 115/69 07/30/23 04:15 37.0 C 81 18 97 07/30/23 04:00 118/65 07/30/23 04:00 36.9 C 84 18 97 07/30/23 04:00 35 07/30/23 03:45 120/73 07/30/23 03:45 36.9 C 91 H 22 96 07/30/23 03:30 36.9 C 93 H 18 100 07/30/23 03:30 117/73 07/30/23 03:26 83 19 97 35 07/30/23 03:15 36.9 C 85 18 96 07/30/23 03:00 116/67 07/30/23 03:00 36.9 C 83 18 96 07/30/23 02:45 36.9 C 79 18 98 07/30/23 02:45 107/61 07/30/23 02:30 36.9 C 78 18 98 07/30/23 02:30 105/61 07/30/23 02:15 36.9 C 78 18 98 07/30/23 02:15 104/57 L 07/30/23 02:00 36.8 C 77 18 98 07/30/23 02:00 103/58 L 07/30/23 01:45 36.8 C 77 18 98 07/30/23 01:45 101/59 L 07/30/23 01:30 36.8 C 77 18 97 07/30/23 01:15 36.8 C 78 18 97 07/30/23 01:00 36.9 C 77 18 98 07/30/23 00:45 36.8 C 77 18 97 07/30/23 00:45 102/60 07/30/23 00:30 36.8 C 78 18 97 07/30/23 00:15 36.8 C 79 18 97 07/30/23 00:15 106/60 07/30/23 00:00 80 07/30/23 00:00 36.8 C 80 18 96 07/30/23 00:00 102/59 L 07/30/23 00:00 35 07/29/23 23:45 106/62 07/29/23 23:45 36.8 C 82 18 96 07/29/23 23:30 115/62 07/29/23 23:30 36.8 C 86 19 95 07/29/23 23:15 123/69 07/29/23 23:15 36.8 C 94 H 16 96 07/29/23 23:00 36.7 C 91 H 18 95 07/29/23 22:46 36.7 C 91 H 18 92 07/29/23 22:46 115/65 07/29/23 22:45 36.7 C 92 H 18 91 07/29/23 22:30 36.7 C 82 17 95 07/29/23 22:21 82 18 95 35 07/29/23 22:15 36.7 C 85 20 95 07/29/23 22:00 120/62 07/29/23 22:00 36.7 C 92 H 17 94 07/29/23 21:46 36.7 C 103 H 17 91 07/29/23 21:46 124/74 07/29/23 21:45 36.7 C 102 H 16 92 07/29/23 21:30 36.8 C 84 20 97 07/29/23 21:30 101/55 L 07/29/23 21:15 36.9 C 82 18 97 07/29/23 21:15 96/55 L 07/29/23 21:00 37.0 C 82 18 98 01/29/24 21:00 97/64 L 07/29/23 20:45 37.0 C 82 18 99 07/29/23 20:45 108/68 07/29/23 20:30 37.0 C 82 20 99 07/29/23 20:30 107/64 Lab & Micro Results (Past 24 Hours) RBC 2.84 M/uL (4.20-5.40) L 07/30/23 WBC 25.11 K/ul (4.8-10.8) H 07/30/23 Hgb 8.5 g/dl (12.0-16.0) L 07/30/23 Hct 25.6 % (37.0-47.0) L 07/30/23 MCV 90.1 fL (80.0-100.0) 07/30/23 MCH 29.9 pg (25.0-34.0) 07/30/23 MCHC 33.2 g/dL (32.0-36.0) 07/30/23 RDW Standard Deviation 47.8 fL (36.4-46.3) H 07/30/23 RDW Coefficient of Variation 14.6 % (11.5-14.5) H 07/30/23 Plt Count 28 K/uL (130-400) L* 07/30/23 MPV 13.8 fL (9.4-12.4) H 07/30/23 Nucleated Red Blood Cells % (auto) 0.1 % 07/30 Nucleated RBC Absolute Count (auto) 0.03 K/uL (0.00-0.12) 0 07/30/23 Neutrophils (%) (Auto) 84.4 % 07/30/23 Lymphocytes (%) (Auto) 5.1 % 07/30/23 Monocytes # (Auto) 1.85 K/uL (0.11-0.59) H 07/30/23 Eosinophils # (Auto) 0.00 K/uL (0.00-0.50) 07/30/23 Immature Granulocyte % (Auto) 2.5 % 07/30/23 Neutrophils # (Auto) 21.21 K/uL (1.40-6.50) H 07/30/23 Lymphocytes # (Auto) 1.27 K/uL (1.20-3.40) 07/30/23 Monocytes # (Auto) 1.85 K/uL (0.11-0.59) H 07/30/23 Eosinophils # (Auto) 0.00 K/uL (0.00-0.50) 07/30/23 Basophils # (Auto) 0.14 K/uL (0.00-0.20) 07/30/23 Immature Granulocyte # (Auto) 0.64 K/uL (0.01-0.20) H 07/30 Na 149 mmol/L (136-145) H 07/30/23 K 3.6 mmol/L (3.5-5.1) 07/30/23 Cl 117 mmol/L (98-107) H 07/30/23 CO2 27 mmol/L (21-32) 07/30/23 Anion Gap 5 (3-11) 07/30/23 BUN 40 mg/dl (6-23) H 07/30/23 Creatinine 1.19 mg/dl (0.6-1.2) 07/30/23 Estimated GFR ( Amer) 52.4 ml/min 07/30/23 Estimated GFR (Non-Af Amer) 45.3 ml/min 07/30/23 BUN/Creatinine Ratio 33.6 (10-20) H 07/30/23 Glu 103 mg/dl (70-99(Fasting)) H 07/30/23 Ca 6.9 mg/dl (8.6-10.3) L 07/30/23 Phosphorus Level 2.4 mg/dl (2.5-4.9) L 07/30/23 Total Bilirubin 0.3 mg/dl (0.2-1.0) 07/30/23 Direct Bilirubin 0.1 mg/dl (0-0.2) 07/30/23 AST 27 U/L (13-39) 07/30/23 ALT 26 U/L (7-52) 07/30/23 Alkaline Phosphatase 126 U/L (34-104) H 07/30/23 TP 4.8 gm/dl (6.0-8.3) L 07/30/23 Albumin 2.4 gm/dl (3.4-5.0) L 07/30/23 Lactate Dehydrogenase 356 U/L (86-244) H 07/30/23 Mg 2.6 mg/dl (1.7-2.4) H 07/30/23 03:04 Calcium Level 6.9 mg/dl (8.6-10.3) L 07/30/23 03:04 Prothromb Time International Ratio 2.2 (0.9-1.1) H 07/29/23 18 :43 Damion Test NA 07/30/23 03:25 Microbiology 07/27/23 22:27 Aerobic Blood Culture - Preliminary Blood No growth in Aerobic bottle after 48 hours. Anaerobic Blood Culture - Preliminary No growth in Anaerobic bottle after 48 hours. 07/27/23 22:27 Aerobic Blood Culture - Preliminary Blood No growth in Aerobic bottle after 48 hours. Anaerobic Blood Culture - Preliminary No growth in Anaerobic bottle after 48 hours. Diagnostic Findings (Past 24 Hours) Abdomen/Pelvis CT 07/29/23 13:02 CT SCAN OF THE ABDOMEN AND PELVIS WITHOUT IV CONTRAST CLINICAL HISTORY: Ureteral stone. Clinical concern for perinephric abscess. COMPARISON STUDY: Abdominal CT dated 07/25/2023. TECHNIQUE: CT scan of the abdomen and pelvis is performed from the lung bases to the proximal femora. Images are reviewed in the axial, sagittal, and coronal planes. IV contrast was not administered for this examination. Note that the examination is significantly suboptimal without IV contrast for the reported clinical history. A dose lowering technique was utilized adhering to the principles of ALARA. CT DOSE: 1519.38 mGy.cm FINDINGS: Lung bases: The heart is normal in size and without pericardial effusion. The coronary arteries are densely calcified. There are small pleural effusions with dependent consolidation. Liver: The unenhanced liver is enlarged, measuring 19.6 cm in length. The liver demonstrates heterogeneously diminished attenuation indicating steatosis. Fatty sparing is seen adjacent to the gallbladder fossa. There is no intrahepatic biliary ductal dilatation. Gallbladder: The gallbladder is distended and contains calcified gallstones. There is also vicariously excreted contrast within the gallbladder lumen. Spleen: Normal in size and attenuation. Pancreas: The unenhanced pancreas is grossly unremarkable. Adrenal glands: Nodular thickening of the adrenal glands is similar to previous. Kidneys: The unenhanced kidneys are normal in size and without hydronephrosis. A right ureteral stent is new from previous. A 4 mm calculus is seen in the right proximal ureter on image #[id number] along the course of the stent. This is located at the level of L4. Gas within the right ureter is nonspecific and likely related to recent dilatation. No additional calculi are clearly identified in the right kidney. There are at least 2 small nonobstructing left renal calculi which measure up to 3 mm. A 1.5 cm exophytic cyst is again seen arising from the left upper pole. Retained cortical contrast is shown in both kidneys and suggests acute renal injury. There is no evidence of perinephric fluid collection. There is mild right-sided perinephric stranding. Abdominal vasculature: The abdominal aorta is normal in course and caliber noting moderate to advanced atherosclerotic calcification. Bowel: An enteric tube terminates in the mid to distal stomach. A rectal temperature probe is in place. No bowel obstruction is seen. Residual enteric contrast is suggested in the right colon. The appendix is well-visualized and normal. Peritoneum: There is trace perisplenic ascites as well as trace free fluid in the pelvis. No intraperitoneal free air is identified. There are fat-containing supraumbilical hernias. Lymphadenopathy: None. Pelvic viscera: The bladder is decompressed around a Joshi catheter and contains the distal end of a right ureteral stent. The uterus is surgically absent. No adnexal lesion is seen. Skeletal structures: The skeletal structures are osteopenic. There is mild lumbosacral spondylosis. No lytic or blastic lesions are seen. IMPRESSION: 1. A right ureteral stent has been placed. A 4 mm calculus is again seen in the right proximal ureter on the course of the stent. 2. There is no hydronephrosis. 3. Foci of gas within the right proximal ureter are nonspecific and likely related to instrumentation. Correlate with urinalysis. 4. There is no evidence of perinephric fluid collection as clinically queried. 5. There is retained cortical contrast present in both kidneys suggesting acute renal injury. Correlate with clinical and laboratory findings. 6. Left-sided nephrolithiasis. 7. Small pleural effusions with dependent consolidation. This likely represents atelectasis. Correlate clinically. 8. Cholelithiasis. 9. Hepatomegaly and hepatic steatosis. 10. Trace abdominopelvic ascites. 11. Additional findings as above. ACT 112: Negative or not required by law. Electronically signed by: Pravin Nguyen M.D. 07/29/2023 2:52 PM I & O Totals 24 Hours 07/29/23 07/30/23 07/31/23 06:59 06:59 06:59 Intake Total 3927.308 / 3927.308 3350.067 / 3350.067 280.256 / 280.256 Output Total 1475 / 1475 825 / 825 Balance 2452.308 / 2452.308 2525.067 / 2525.067 280.256 / 280.256 Cumulative 07/25/23 18:26 thru 07/30/23 07:02 Intake Total 23524.791 Output Total 6822 Balance 9343.791 RT Ventilator Mngmt (Last Documented) Ventilator Ordered Settings Ventilator Support Mode Assist Control 07/30/23 04:00 Respiratory Rate 19 07/30/23 06:30 Ventilator Tidal Volume 300 07/30/23 04:00 Setting Minute Ventilation 5.4 07/30/23 03:26 Positive End Expiratory 8 07/30/23 04:00 Pressure Fraction of Inspired Oxygen 35 07/30/23 04:00 Machine Comment SpO2 98% FiO2 decreased from 50% 07/28/23 22:16 to 40% Last [place] [employer] [facility] made aware Ventilator - PT Measurements Respiratory Rate 19 Exhaled Tidal Volume 300 Minute Ventilation 5.4 Peak Inspiratory Airway 17 Pressure Plateau Pressure 14 Respiratory Cycle Inspiratory: 1:4 Expiratory Ratio Inspiratory Phase Time 0.65 End-Tidal CO2 36 Static Lung Compliance 50.00 Dynamic Lung Compliance 33.33 Normal Static Lung Compliance 47.00 Patient Measurements Comment RR decreased to [address] Santos, ABG in 1 hour Coding Level of Care Code 86501 CRITICAL CARE 1ST 30-74M Diagnoses Septic shock A41.9; R65.21 Hydronephrosis due to obstruction of ureter N13.1 Acute kidney injury N17.9 HTN (hypertension) I10 Complicated urinary tract infection N39.0 Elevated lactic acid level R79.89
[2023-07-30 08:39] LABS: Reticulocyte % 0.65 % (0.50-2.00); Reticulocytes # 0.02 10^6/uL (0.020-0.100)
[2023-07-30 08:57] LABS: Albumin Level 2.4 gm/dl (3.4-5.0); Bilirubin Direct 0.1 mg/dl (0-0.2); Bilirubin,Total 0.3 mg/dl (0.2-1.0); Total Protein 4.8 gm/dl (6.0-8.3)
[2023-07-30] MEDS ORDERED: SODIUM BICARB 8.4% INJ 50 MEQ/50 ML SYR IV STA (09:16)
[2023-07-30] MEDS ORDERED: PHARMACY GLYCEMIC MGMT CONSULT PRN (11:37)
[2023-07-30] MEDS: SODIUM BICARB 8.4% INJ 50 MEQ/50 ML SYR IV STA (11:54)
--- NOTE | 2023-07-30 13:10 | Pharmacy Report ---
Pharmacy PK ABX Note - Date of Service July 30, 2023 - Assessment and Plan Assessment 07/30: Low suspicion for OIL REFINER infection however, cannot be ruled out by LP d/t platelets. Will continue current antibiotics for, likely to be discontinued if mental status improves. Will continue to cover the ruiz-sensitive Klebsiella if de-escalated. Random level this morning 14.5 mcg/mL suggests current dosing is appropriate, within target AUC at steady state. Will continue for now, renal f unction improving will monitor. 07/29 73 year old F receiving vancomycin/acyclovir/ampicillin/ceftriaxone for empiric treatment of possible meningitis. Patient has Klebsiella pneumoniae bacteremia with urine source, repeat cultures negative at 24 hours. Continuing empiric meningitis antibiotics for now. Plan Vancomycin * Loading dose: 2000 mg IV x 1 * Maintenance dose: 1250 mg IV every 24 hours * Regimen is predicted to achieve target AUC/FLOYD of 400-600 mg/L.hr * Random level ordered for 2/1 AM Pharmacy will continue to follow and will adjust dose/frequency as necessary. Thank you. Pharmacy has transitioned to AUC monitoring for vancomycin. AUC/FLOYD is the preferred PK/PD target and is associated with decreased risk of nephrotoxicity compared to traditional trough targets.
--- NOTE | 2023-07-30 13:30 | XRay Report ---
SINGLE VIEW CHEST CLINICAL HISTORY: Respiratory failure. FINDINGS: An AP, portable, upright chest radiograph is compared to study dated 07/28/2023 and correlat ed with chest CT dated 07/25/2023. An endotracheal tube, an enteric tube, and a right internal jugular central venous catheter are unchanged in position. The cardiomediastinal silhouette is top normal fo r projection noting atherosclerotic calcification of the thoracic aorta. There is pulmonary vascular congestion. There are small pleural effusions with dependent consolidation. No pneumothorax is seen. The skeletal structures are osteopenic. The bony thorax is grossly intact. IMPRESSION: 1. Stable lines and tubes. 2. Pulmonary vascular congestion has increased from previous. 3. Small pleural effusions with dependent consolidation. These have increased from previous. ACT 112: Negative or not required by law. Electronically signed by: Pravin Nguyen M.D. 07/30/2023 1:29 PM
--- NOTE | 2023-07-30 13:39 | Pharmacy Report ---
Pharmacy Glycemic Short Note 2 - Date of Service July 30, 2023 - Glycemic Short BSG Results (Last 24 hours): 07/29/23 07/29/23 07/29/23 13:58 15:46 17:07 Glucose POC Glucose (other) 155 H 128 H 122 H 07/29/23 07/29/23 07/29/23 18:31 21:08 23:28 Glucose POC Glucose (other) 123 H 119 H 146 H 07/30/23 07/30/23 07/30/23 01:38 03:04 04:04 Glucose 103 H POC Glucose (other) 123 H 117 H 07/30/23 07/30/23 07/30/23 06:18 07:59 10:21 Glucose POC Glucose (other) 99 135 H 136 H 07/30/23 12:05 Glucose POC Glucose (other) 114 H OUTPATIENT ANTIDIABETIC REGIMEN: * Metformin 1000 mg BIDM * A1c 7.1% 07/26/23 ASSESSMENT: * Ms. Kelly is a 73 yo admitted with severe sepsis/septic shock from Kleb. pneumoniae bacteremia from urinary source. Patients course has been complicated, intubated 07/28 with encephalopathy. MRI with stroke. Currently being treated with empiric antibiotics for possible meningitis that has been unable to be r/o. * Patient had downtrending platelets, DIC, HIT unlikely but further testing pending, all anticoagulation currently being held (received ~ 18 hours of argatroban 07/29-07/30 AM) * BSGs became elevated overnight on the and an insulin infusion initiated the morning of the . * Will continue with insulin infusion at this time given many moving parts, patient remains intubated, intermittently on pressors- currently off. On trophic feeds that may be held if able to extubate later today/tomorrow. Remains on methylpred 40 mg q12H IV. PLAN FOR INPATIENT GLYCEMIC CONTROL: * Hold outpatient oral diabetes medications * Continue insulin infusion; currently at 2.5 units/hr
--- NOTE | 2023-07-30 15:40 | Hospitalist Progress Note ---
Date of Service July 30, 2023 Assessment & Plan (1) Encephalopathy: Plan: 73-year-old lady with PMH of HTN, HLD, T2DM, HCV status posttreatment, anxiety/mood disorder was brought in with complaint of confusion for about 1 day duration. She could not get words out. Of note, she had home test for COVID-19 positive about 2 weeks ago [employer], had self-limited cough symptoms. Also she had noted right flank pain complaints since about 1 week ago [employer] associated with not feeling well & a/w poor appetite. She is being managed for the following: ADMITTING IMANGINGS: Admitting CXR with no acute finding. Admitting CT head with no acute finding. Admitting CTA head WNL. Admitting CTA neck with moderate left ICA stenosis and possible high risk/ulcerated plaque in this location. Admitting CTA chest with no PE. Admitting CTAP with mild right hydronephrosis, secondary to 2 into 5 mm stone in the mid ureter. Concern for right pyelonephritis. No perinephric abscess. Cholelithiasis without acute cholecystitis. Complicated UTI Urolithiasis and obstructive uropathy Urosepsis Severe sepsis POA: Secondary to above. Respiratory rate/pulse rate/WBC elevated at presentation. Lactate and procalcitonin elevated at presentation. Septic shock: Patient's blood pressure did not improve despite aggressive fluid resuscitation, was transferred to ICU for pressor support requirement at admission. Likely metabolic encephalopathy: Secondary to above Gram-negative bacteremia: 07/25 blood culture positive for Klebsiella pneumoniae in 2 of 4 bottles. Repeat blood culture 07/27 pending. Patient presented with using, about a week worth of right flank pain. Poor appetite and not feeling well. UA suggestive of UTI, admitting CTAP with renal stone and concern for right pyelonephritis Initially admitted in ICU, needed pressor support, s/p pressors 07/26 afternoon. 07/25 Bl Cx - K. Pneumoniae; 07/26 Urine Cx - K Pneumoniae 07/27 Bl Cx - Pending. Follow Urology evaluated, status post cystoscopy and right retrograde pyelogram/right ureteral stent placement 07/26/2023 Patient was started on cefepime 07/26, to ceftriaxone 07/27, d/w ID 07/28 - agreed w/ Rx. Continue. CTAP repeated 07/29 for concern of perinephric abscess, which was ruled out. Management per ICU. Acute metabolic encephalopathy Acute fever Thrombocytopenia Patient had developed acrocyanosis and nasal tip cyanosis overnight of 07/26- 07/27. Patient has been off of pressor support [vasopressin and Levophed] since 07/26 afternoon. 07/27 - pulses very strong on exam. Duplex arterial scan of UE and LE WNL. Venous Doppler BLE negative for DVT. Patient was started on heparin drip and Solu-Medrol for concern of cryoglobulinemia. 07/28 - acrocyanosis progressed, pulses became weak, patient became more confused. See subjective 07/28. Discussed with various subspecialties including rheumatology/hematology/mold stamper. Peripheral blood smear with no schistocytes. TTP HUS ruled out. DIC from sepsis versus ischemic necrosis from recent pressor use was contemplated as DD for acrocyanosis. Later in the evening patient was transferred to ICU and was intubated due to tachypnea/shallow breathing. She also developed fever, and started on vancomycin/acyclovir/ampicillin on top of Rocephin in the line of encephalitis versus meningitis. Lumbar puncture was deferred due to dropping platelets. MRI brain was obtained which revealed punctate right occipital lobe lacunar infarct. 07/29 -patient continues on antimicrobial therapy, vitals are getting better. Afebrile currently. Patient is intubated and is being managed per ICU protocol. Argatroban started. 07/30 - patient continues on antimicrobial therapy with acyclovir, ampicillin, Rocephin [meningitis dose], vancomycin. Argatroban discontinued. Platelets 28,000. Various serologic test including hepatitis panel, cryoglobulin, rheumatoid factor, anti-CCP antibody, complement levels, ADAMTS 13 are pending. ANAHI screen is negative. PF4 antibody negative --HIT ruled out. Again no schistocytes noted on peripheral smearTTP HUS ruled out. New onset anemia Likely UGIB Prior hemoglobin level 13.9, admitting hemoglobin 11.1 Hemoccult positive melanotic stool noted at the ER GI evaluated 07/26, PPI drip changed to twice daily. Monitor H&H and transfuse as needed. Will likely need follow-up with GI as an outpatient. Anemia workup, transfuse PRBC if hemoglobin less than 8 and or for symptomatic anemia TF started due to intubated status. Right occipital lobe lacunar infarct x small: Head and neck imagings reviewed as above. 07/29 MRI w/ punctate right occipital lobe lacunar infarct. Neurology consulted, appreciate recommendation. Continue neurochecks. A1c 7.1; LDL 12. Will need antiplatelet consideration once out of acute issues. Zio patch as an outpatient. Acute kidney injury: Admitting creatinine of 1.6, past creatinine 0.89. Status post IV fluid, s/p pressor support. Likely prerenal secondary to septic shock. Cr hovering around down to 1.19 today. Likely type II NSTEMI: Troponin elevated likely secondary to acute sepsis. Patient with no chest pain. EKG with sinus tachycardia. No acute ST or T changes. Echo with EF of 50 to 55%, no interatrial septum or sound physiology. No regional wall motion abnormalities. Other chronic medical conditions: Continue with/resume home meds as and when able. Hypertension, monitor BP as pt's condition is critical and BP will fluctuate. resume home bp meds as able. hyperlipidemia, on statin Rx. Continue DM2 on oral medications, reasonable control as of recent hemoglobin A1c of 7.1 last March 2023 HCV status post Rx Recent COVID-19 illness from 2 weeks ago, monitor respiratory symptoms. DVT prophylaxis. SCDs Re: UGIB Full code Patient daughter Ms. eDlores Barney, contact #[phone]. Updated 07/27 over the phone, answered all her questions. She voiced understanding and was agreeable to plan of care. Updated multiple times 07/28. Updated 07/29 over the phone, explained to Delores that Pt is started on multiple antimicrobials for concern of meningitis/encephalitis, argatroban for concern of dic. Also made her aware of punctate stroke noted in brain mri 07/28. She voiced understanding and was agreeable to plan of care. Updated 07/30 over the phone, answered all her questions. Text document was generated using [employer] voice recognition software. It may contain grammatical or spelling errors. Kindly contact undersigned for clarification of any documentation item in question. Admission and Anticipated Discharge Date Admission Date: July 26, 2023 Subjective Patient was seen and examined at bedside several times today. Patient was seen and examined at bedside. Patient was intubated and mechanically ventilated. Off of sedation, can follow some commands, cannot move limbs. When asked about pain, nods "no". ROS not able. Physical Exam Physical Exam: GENERAL: Intubated, ventilated, follows some commands HEENT: No pallor, no icterus. Pupils equal, round and reactive to light. Oral mucosa very dry. Nasal tip cynosis noted. NECK: No JVD, no neck masses. HEART: S1 and S2 heard. RRR. No murmur, no gallop. RESPIRATORY SYSTEM: Normal AP diameter. No accessory muscle use. No wheezing, occ bl crackles. ABDOMEN: Soft,no distention. CENTRAL NERVOUS SYSTEM: No facial droop. EXTREMITIES: acrocyanosis noted -stable, trace BLE edema. Results & Data Results & Data Vital Signs (Past 12 Hours) Vital Signs Temp Pulse Resp BP Pulse Ox O2 Del Method FiO2 07/30/23 15:25 105 H 07/30/23 15:15 129/78 07/30/23 15:15 37.5 C 104 H 19 98 Mechanical Vent 07/30/23 15:00 135/77 07/30/23 15:00 37.5 C 105 H 20 97 Mechanical Vent 07/30/23 14:45 132/76 07/30/23 14:45 37.5 C 105 H 16 97 Mechanical Vent 07/30/23 14:30 112/69 07/30/23 14:30 37.5 C 110 H 93 Mechanical Vent 07/30/23 14:15 132/83 07/30/23 14:15 37.4 C 105 H 18 99 Mechanical Vent 07/30/23 14:00 37.4 C 104 H 19 97 Mechanical Vent 07/30/23 14:00 120/76 07/30/23 13:45 127/73 07/30/23 13:45 37.4 C 105 H 17 98 Mechanical Vent 07/30/23 13:30 132/77 07/30/23 13:30 37.4 C 102 H 16 98 Mechanical Vent 07/30/23 13:15 128/69 07/30/23 13:15 37.4 C 95 H 17 96 Mechanical Vent 07/30/23 13:00 37.4 C 103 H 17 96 Mechanical Vent 07/30/23 13:00 132/72 07/30/23 12:30 37.3 C 100 H 15 97 Mechanical Vent 07/30/23 12:30 127/74 07/30/23 12:15 131/70 07/30/23 12:15 37.2 C 110 H 17 96 Mechanical Vent 07/30/23 12:00 148/77 H 07/30/23 12:00 37.2 C 108 H 16 98 Mechanical Vent 07/30/23 11:45 37.2 C 97 H 17 99 Mechanical Vent 07/30/23 11:45 124/72 07/30/23 11:30 121/66 07/30/23 11:30 37.2 C 92 H 16 98 Mechanical Vent 07/30/23 11:15 37.1 C 95 H 17 97 Mechanical Vent 07/30/23 11:15 115/69 07/30/23 11:00 37.1 C 91 H 22 98 Mechanical Vent 07/30/23 10:45 37.0 C 94 H 19 98 07/30/23 10:45 128/73 07/30/23 10:36 98 H 21 99 35 07/30/23 10:30 124/74 07/30/23 10:30 36.9 C 98 H 7 L 96 Mechanical Vent 07/30/23 10:15 125/79 07/30/23 10:15 36.8 C 95 H 15 96 Mechanical Vent 07/30/23 10:00 118/68 07/30/23 10:00 36.8 C 90 18 96 Mechanical Vent 07/30/23 09:45 36.7 C 96 H 16 96 Mechanical Vent 07/30/23 09:45 128/77 07/30/23 09:30 36.7 C 98 H 19 97 Mechanical Vent 07/30/23 09:30 132/80 07/30/23 09:16 Mechanical Vent 07/30/23 09:15 36.6 C 92 H 17 95 Mechanical Vent 07/30/23 09:15 122/68 07/30/23 09:00 36.5 C 92 H 16 95 Mechanical Vent 07/30/23 08:30 120/67 07/30/23 08:30 36.6 C 88 20 95 Mechanical Vent 07/30/23 08:15 115/64 07/30/23 08:15 36.6 C 82 18 93 Mechanical Vent 07/30/23 08:00 119/65 07/30/23 08:00 36.6 C 94 H 17 92 Mechanical Vent 07/30/23 07:45 36.6 C 98 H 17 93 Mechanical Vent 07/30/23 07:45 120/67 07/30/23 07:41 94 H 19 92 35 01/30/24 07:30 125/66 07/30/23 07:30 36.6 C 93 H 17 93 Mechanical Vent 07/30/23 07:15 126/65 07/30/23 07:15 36.6 C 96 H 22 96 Mechanical Vent 07/30/23 07:10 81 07/30/23 07:00 104/59 L 07/30/23 07:00 36.6 C 85 18 96 Mechanical Vent 07/30/23 06:45 36.7 C 81 16 97 Mechanical Vent 07/30/23 06:45 106/56 L 07/30/23 06:30 36.9 C 82 19 98 07/30/23 06:15 37.0 C 82 15 99 07/30/23 06:00 37.0 C 76 18 98 07/30/23 06:00 106/68 07/30/23 05:45 37.0 C 78 18 98 07/30/23 05:30 37.0 C 78 18 98 07/30/23 05:15 111/66 07/30/23 05:15 37.0 C 78 18 98 07/30/23 05:00 110/67 07/30/23 05:00 37.0 C 80 18 97 07/30/23 04:45 109/66 07/30/23 04:45 37.0 C 80 18 97 07/30/23 04:30 37.0 C 78 18 96 07/30/23 04:30 106/60 07/30/23 04:15 115/69 07/30/23 04:15 37.0 C 81 18 97 07/30/23 04:00 118/65 07/30/23 04:00 36.9 C 84 18 97 07/30/23 04:00 35 07/30/23 03:45 120/73 07/30/23 03:45 36.9 C 91 H 22 96 07/30/23 03:30 36.9 C 93 H 18 100 07/30/23 03:30 117/73
[2023-07-30] MEDS: PEPTAMEN 1.5 CAL 1,000 ML BAG GT SCH (22:10)
[2023-07-31 05:34] LABS: iSTAT Allen Test Pass; iSTAT Art Bld Gas pCO2 Correct 35 mmHg (35-46); iSTAT Art Bld Gas pH Corrected 7.488 (7.35-7.45); iSTAT Arterial Blood Gas HCO3 27 meg/L (19-24); iSTAT Arterial Blood Gas pCO2 35 mmHg (35-46); iSTAT Arterial Blood Gas pH 7.49 (7.35-7.45); iSTAT Arterial Blood Gas pO2 103 mmHg (80-95); iSTAT Arterial Blood Gas pO2 C 103; iSTAT Carbon Dioxide 28 mmol/L (24-31); iSTAT FiO2 35 %; iSTAT Hematocrit 21 % (37-47); iSTAT Hemoglobin 7.1 g/dl (12.0-16.0); iSTAT Potassium 3.6 mmol/L (3.3-5.0); iSTAT Site L Brachial; iSTAT Sodium 149 mmol/L (135-144)
[2023-07-31] MEDS: PROPOFOL BOLUS FROM BAG IV PRN (06:23)
[2023-07-31 06:51] LABS: Basophils # (auto) 0.06 K/uL (0.00-0.20); Basophils % (auto) 0.3 %; Hematocrit (blood only) 24.5 % (37.0-47.0); Hemoglobin 8.1 g/dl (12.0-16.0); Immature Granulocytes # (auto) 0.47 K/uL (0.01-0.20); Immature Granulocytes % (auto) 2.6 %; Lymphocytes # (auto) 0.99 K/uL (1.20-3.40); Lymphocytes % (auto) 5.6 %; Mean Corpuscular Hemoglobin 29.5 pg (25.0-34.0); Mean Corpuscular Hgb Conc 33.1 g/dL (32.0-36.0); Mean Corpuscular Volume 89.1 fL (80.0-100.0); Mean Platelet Volume 13.1 fL (9.4-12.4); Monocytes # (auto) 1.29 K/uL (0.11-0.59); Monocytes % (auto) 7.3 %; Neutrophils # (auto) 14.93 K/uL (1.40-6.50); Neutrophils % (auto) 84.2 %; Nucleated RBC # (auto) 0.03 K/uL (0.00-0.12); Nucleated RBC % (auto) 0.2 %; Platelet Count 42 K/uL (130-400); Platelet Estimate Decreased (Normal); RBC Morphology Unremarkable; RDW Coefficient of Variation 14.2 % (11.5-14.5); RDW Standard Deviation 46.2 fL (36.4-46.3); Red Blood Count 2.75 M/uL (4.20-5.40); White Blood Count 17.74 K/ul (4.8-10.8)
[2023-07-31 06:53] LABS: Calcium 7.1 mg/dl (8.6-10.3); Magnesium 2.4 mg/dl (1.7-2.4); Potassium 3.7 mmol/L (3.5-5.1)
[2023-07-31 06:59] LABS: BUN Creatinine Ratio 37.6 (10-20); Creatinine Clr Calc Pharmacy 59.9 ml/min; Est GFR (African American) 70.7 ml/min; Phosphorus 2.2 mg/dl (2.5-4.9)
[2023-07-31] MEDS: METOPROLOL TARTRATE 1 MG/ML VIAL IV PRN (07:40)
--- NOTE | 2023-07-31 07:44 | XRay Report ---
SINGLE VIEW CHEST CLINICAL HISTORY: Respiratory failure. FINDINGS: An AP, portable, upright chest radiograph is compared to study dated 07/30/2023 and correlat ed with chest CT dated 07/25/2023. An endotracheal tube, an enteric tube, and a right internal jugular central venous catheter are unchanged in position. The cardiomediastinal silhouette is top normal fo r projection noting atherosclerotic calcification of the thoracic aorta. There is pulmonary vascular congestion. There are small pleural effusions with dependent consolidation. No pneumothorax is seen. The skeletal structures are osteopenic. The bony thorax is grossly intact. IMPRESSION: 1. Stable lines and tubes. 2. Pulmonary vascular congestion is similar to yesterday. 3. Small pleural effusions with dependent consolidation. This has also not appreciably changed. ACT 112: Negative or not required by law. Electronically signed by: Pravin Nguyen M.D. 07/31/2023 7:43 AM
[2023-07-31] MEDS: METOPROLOL TARTRATE 1 MG/ML VIAL IV ONE (08:57)
--- NOTE | 2023-07-31 10:18 | Critical Care Progress Note ---
Date of Service July 31, 2023 Assessment & Plan (1) Septic shock: (2) Hydronephrosis due to obstruction of ureter: (3) Acute kidney injury: (4) HTN (hypertension): (5) Complicated urinary tract infection: (6) Elevated lactic acid level: Plan Reason Critically Ill: 73-year-old female presents to the ICU with septic shock following right ureteral stone with hydronephrosis, status post right ureteral stent. Now hypotensive requiring vasopressor support. 24-hour events: Platelet counts continue to recover. Acrocyanosis of the digits and nose appears stable. Her hemodynamics appear to correlate with institution of sedation. This morning she went into atrial fibrillation with rapid ventricular response with heart rates up into the 160s. She was administered 5 mg of IV metoprolol x 3. Recommendations: Neuro: Intubated for encephalopathy. Currently sedated on the ventilator. Continue sedation pending improvement in hemodynamics. Small stroke noted on MRI ultrasounds did not show evidence of DVT so cannot confirm paradoxical emboli. Antiplatelet agents indicated once platelet counts above 50,000. Neurology notes reviewed Cardiac -history of septic shock. 2D echo 07/26/2023: EF 50-55%, mild to moderate MR, RV normal in size and function. Echo showed a potential extracardiac shunt physiology. No obvious evidence of AVM on the CT of her chest. Continue to work on weaning pressors. She is now in atrial fibrillation with rapid ventricular response. Cardiology consultation requested. Start metoprolol 12.5 mg through the enteric tube every 6 hours. Hopefully her hemodynamics tolerate. Defer anticoagulation for now given her thrombocytopenia. Respiratory -hypoxemic respiratory failure necessitating intubation mechanical ventilation day #4. Minimal vent settings currently. SBT x 2 this a.m. aborted due to apnea. Her blood gas did show some mild hypocarbia which may have resulted in the apnea. Anticipate this should improve over time. Continue mechanical ventilation until hemodynamics are resolved and can tolerate SBT. Hold on additional arterial blood gases at this point in time. If venous blood gases are required this should be adequate. GI -continue tube feeds. Reassess swallowing mechanism once extubated RENAL/LYTES -hypernatremia: [place] free water replacement via orogastric tube and change IV fluids to half-normal saline. Repeat CMP this afternoon. Will replace calcium and phosphate as well. - Obstructive ureteral stone/hydronephrosisstatus post right ureteral stent placement via cystoscope. Management per urology. No evidence of perinephric abscess on imaging study. Will need outpatient urology follow-up ENDO - glycemic control per protocol. Fingersticks are not possible given her digital acrocyanosis/necrosis. Will see if we can transition her to a sliding scale regiment. HEME -thrombocytopenia with anemia. Discussed extensively with hematology oncology. Currently believed secondary to be DIC. Haptoglobin is pending. RBC morphology is unremarkable. Continue to follow but hold anticoagulation until platelet counts are above 50,000. ADAMTS 13, complement, cryoglobulins, haptoglobin, all pending. LDH has decreased from 534 down to 356 which is encouraging. ID -urosepsis with Klebsiella bacteremia, pansensitive. My suspicion for meningeal source of infection is low given the absence of fever and her imp roving white blood cell count. Her encephalopathy also appears to be clearing. Will stop acyclovir, vancomycin, ampicillin, and adjust Rocephin for Klebsiella bacteremia. Continue to trend white blood cell count and fever curve. Discontinue isolation. COVID hypercoagulable state may also be contributing Skin -digital cyanosis with necrosis. Unclear etiology. Complements pending. Cryoglobulins pending. Will continue to watch for demarcation. Continue local wound care --Prophylaxis VTE: Holding given low platelets GI: Pantoprazole Lines: Right IJ Diet: Advancing tube feeds Family updated at bedside. Patient is critically ill with significant possibility of clinical deterioration and/or . A total of 45 minutes in critical care time was spent in evaluation and management of this patient. Admission and Anticipated Discharge Date Admission Date: July 26, 2023 Subjective Patient is intubated and sedated Review of Systems Review of Systems: Unobtainable due to endotracheal tube Physical Exam Constitutional: + mechanically ventilated Neck: trachea midline, no thyromegaly Respiratory: normal respiratory effort, lungs clear to auscultation Cardiovascular: Rate/Rhythm: + tachycardic and + irregularly irregular Heart Sounds: normal S1 and normal S2; no murmur Extremities: + edema Gastrointestinal (Abdomen): normal bowel sounds, soft, nontender, no hepatosplenomegaly Musculoskeletal: Extremities: extremities normal to inspection Lymphatic: no cervical lymphadenopathy Results & Data Results & Data Vital Signs (Past 12 Hours) Vital Signs Temp Pulse Resp BP Pulse Ox FiO2 07/31/23 08:59 112 H 07/31/23 08:59 111 H 07/31/23 08:21 132 H 07/31/23 08:07 120 H 117/67 07/31/23 07:52 141 H 115/58 L 07/31/23 07:40 169 H 131/97 07/31/23 05:47 36.9 C 87 15 98 07/31/23 05:45 149/82 H 07/31/23 05:44 36.8 C 89 12 100 07/31/23 05:30 141/83 H 07/31/23 05:30 36.8 C 91 H 14 98 07/31/23 05:15 36.9 C 88 22 100 07/31/23 05:15 150/81 H 07/31/23 05:00 137/81 07/31/23 05:00 36.8 C 82 18 100 07/31/23 04:45 137/79 07/31/23 04:45 36.8 C 85 18 100 07/31/23 04:41 87 19 100 30 07/31/23 04:30 36.8 C 90 18 100 07/31/23 04:30 142/84 H 07/31/23 04:15 36.7 C 95 H 18 100 07/31/23 04:15 148/87 H 07/31/23 04:00 128/70 07/31/23 04:00 36.7 C 80 18 100 07/31/23 03:45 36.7 C 81 19 100 07/31/23 03:45 126/66 07/31/23 03:30 126/70 07/31/23 03:30 36.8 C 83 19 100 07/31/23 03:16 36.8 C 84 18 100 07/31/23 03:15 136/76 07/31/23 03:14 36.8 C 86 18 100 07/31/23 03:00 36.8 C 86 19 100 07/31/23 02:45 136/76 07/31/23 02:45 36.8 C 89 19 100 07/31/23 02:30 36.8 C 91 H 23 100 07/31/23 02:30 132/72 07/31/23 02:15 36.8 C 80 20 100 07/31/23 02:15 116/65 07/31/23 02:00 36.8 C 81 18 100 07/31/23 02:00 117/63 07/31/23 01:45 36.9 C 84 18 100 07/31/23 01:45 115/62 07/31/23 01:30 117/62 07/31/23 01:30 36.9 C 86 18 100 07/31/23 01:15 123/64 07/31/23 01:15 37.0 C 86 20 100 07/31/23 01:00 37.1 C 91 H 21 100 07/31/23 01:00 130/67 07/31/23 00:45 37.1 C 90 18 100 07/31/23 00:45 128/66 07/31/23 00:30 37.2 C 92 H 20 100 07/31/23 00:30 125/68 07/31/23 00:15 37.2 C 98 H 19 98 07/31/23 00:15 114/65 07/31/23 00:00 37.2 C 91 H 19 97 07/31/23 00:00 113/60 07/31/23 00:00 92 H 07/30/23 23:52 94 H 20 97 35 07/30/23 23:45 37.3 C 93 H 17 97 07/30/23 23:45 113/60 07/30/23 23:30 120/62 07/30/23 23:30 37.3 C 92 H 20 97 07/30/23 23:15 37.4 C 96 H 20 97 07/30/23 23:15 115/61 07/30/23 23:00 37.3 C 94 H 36 H 97 07/30/23 23:00 126/64 07/30/23 22:45 37.4 C 98 H 24 97 07/30/23 22:45 126/70 07/30/23 22:30 37.4 C 99 H 19 96 07/30/23 22:30 132/73 07/30/23 22:26 137/76 07/30/23 22:26 37.4 C 99 H 17 97 07/30/23 22:15 141/77 H 07/30/23 22:15 37.4 C 103 H 16 97 Critical Care Results & Data Vital Signs (Past 12 Hours) Vital Signs Temp Pulse Resp BP Pulse Ox FiO2 07/31/23 08:59 112 H 07/31/23 08:59 111 H 07/31/23 08:21 132 H 07/31/23 08:07 120 H 117/67 07/31/23 07:52 141 H 115/58 L 07/31/23 07:50 142 H 19 97 30 07/31/23 07:40 169 H 131/97 07/31/23 05:47 36.9 C 87 15 98 07/31/23 05:45 149/82 H 07/31/23 05:44 36.8 C 89 12 100 07/31/23 05:30 141/83 H 07/31/23 05:30 36.8 C 91 H 14 98 07/31/23 05:15 36.9 C 88 22 07/31/23 05:15 150/81 H 07/31/23 05:00 137/81 07/31/23 05:00 36.8 C 82 18 07/31/23 04:45 137/79 07/31/23 04:45 36.8 C 85 18 07/31/23 04:41 87 19 100 07/31/23 04:30 36.8 C 90 18 07/31/23 04:30 142/84 H 07/31/23 04:15 36.7 C 95 H 18 07/31/23 04:15 148/87 H 07/31/23 04:00 128/70 07/31/23 04:00 36.7 C 80 18 07/31/23 03:45 36.7 C 81 19 100 07/31/23 03:45 126/66 07/31/23 03:30 126/70 07/31/23 03:30 36.8 C 83 19 07/31/23 03:16 36.8 C 84 18 100 07/31/23 03:15 136/76 07/31/23 03:14 36.8 C 86 18 07/31/23 03:00 36.8 C 86 19 07/31/23 02:45 136/76 07/31/23 02:45 36.8 C 89 19 100 07/31/23 02:30 36.8 C 91 H 23 100 07/31/23 02:30 132/72 07/31/23 02:15 36.8 C 80 20 100 07/31/23 02:15 116/65 07/31/23 02:00 36.8 C 81 18 100 07/31/23 02:00 117/63 07/31/23 01:45 36.9 C 84 18 100 07/31/23 01:45 115/62 07/31/23 01:30 117/62 07/31/23 01:30 36.9 C 86 18 100 07/31/23 01:15 123/64 07/31/23 01:15 37.0 C 86 20 100 07/31/23 01:00 37.1 C 91 H 21 100 07/31/23 01:00 130/67 07/31/23 00:45 37.1 C 90 18 100 07/31/23 00:45 128/66 07/31/23 00:30 37.2 C 92 H 20 100 07/31/23 00:30 125/68 07/31/23 00:15 37.2 C 98 H 19 98 07/31/23 00:15 114/65 07/31/23 00:00 37.2 C 91 H 19 97 07/31/23 00:00 113/60 07/31/23 00:00 92 H 07/30/23 23:52 94 H 20 97 35 07/30/23 23:45 37.3 C 93 H 17 97 07/30/23 23:45 113/60 07/30/23 23:30 120/62 07/30/23 23:30 37.3 C 92 H 20 97 07/30/23 23:15 37.4 C 96 H 20 97 07/30/23 23:15 115/61 07/30/23 23:00 37.3 C 94 H 36 H 97 07/30/23 23:00 126/64 07/30/23 22:45 37.4 C 98 H 24 97 07/30/23 22:45 126/70 07/30/23 22:30 37.4 C 99 H 19 96 07/30/23 22:30 132/73 07/30/23 22:26 137/76 07/30/23 22:26 37.4 C 99 H 17 97 Lab & Micro Results (Past 24 Hours) RBC 2.75 M/uL (4.20-5.40) L 07/31/23 WBC 17.74 K/ul (4.8-10.8) H 07/31/23 Hgb 8.1 g/dl (12.0-16.0) L 07/31/23 Hct 24.5 % (37.0-47.0) L 07/31/23 MCV 89.1 fL (80.0-100.0) 07/31/23 MCH 29.5 pg (25.0-34.0) 07/31/23 MCHC 33.1 g/dL (32.0-36.0) 07/31/23 RDW Standard Deviation 46.2 fL (36.4-46.3) 07/31/23 RDW Coefficient of Variation 14.2 % (11.5-14.5) 07/31/23 Plt Count 42 K/uL (130-400) L 07/31/23 MPV 13.1 fL (9.4-12.4) H 07/31/23 Nucleated Red Blood Cells % (auto) 0.2 % 07/31 Nucleated RBC Absolute Count (auto) 0.03 K/uL (0.00-0.12) 0 07/31/23 Neutrophils (%) (Auto) 84.2 % 07/31/23 Lymphocytes (%) (Auto) 5.6 % 07/31/23 Monocytes # (Auto) 1.29 K/uL (0.11-0.59) H 07/31/23 Eosinophils # (Auto) 0.00 K/uL (0.00-0.50) 07/31/23 Immature Granulocyte % (Auto) 2.6 % 07/31/23 Neutrophils # (Auto) 14.93 K/uL (1.40-6.50) H 07/31/23 Lymphocytes # (Auto) 0.99 K/uL (1.20-3.40) L 07/31/23 Monocytes # (Auto) 1.29 K/uL (0.11-0.59) H 07/31/23 Eosinophils # (Auto) 0.00 K/uL (0.00-0.50) 07/31/23 Basophils # (Auto) 0.06 K/uL (0.00-0.20) 07/31/23 Immature Granulocyte # (Auto) 0.47 K/uL (0.01-0.20) H 07/31 Red Blood Cell Morphology Unremarkable 07/31/23 Na 150 mmol/L (136-145) H 07/31/23 K 3.7 mmol/L (3.5-5.1) 07/31/23 Cl 117 mmol/L (98-107) H 07/31/23 CO2 27 mmol/L (21-32) 07/31/23 Anion Gap 6 (3-11) 07/31/23 BUN 35 mg/dl (6-23) H 07/31/23 Creatinine 0.93 mg/dl (0.6-1.2) 07/31/23 Estimated GFR ( Amer) 70.7 ml/min 07/31/23 Estimated GFR (Non-Af Amer) 61.0 ml/min 07/31/23 BUN/Creatinine Ratio 37.6 (10-20) H 07/31/23 Glu 117 mg/dl (70-99(Fasting)) H 07/31/23 Ca 7.1 mg/dl (8.6-10.3) L 07/31/23 Phosphorus Level 2.2 mg/dl (2.5-4.9) L 07/31/23 Mg 2.4 mg/dl (1.7-2.4) 07/31/23 05:29 Calcium Level 7.1 mg/dl (8.6-10.3) L 07/31/23 05:29 Damion Test Pass 07/31/23 05:23 Diagnostic Findings (Past 24 Hours) Chest X-Ray 07/30/23 07:00 SINGLE VIEW CHEST CLINICAL HISTORY: Respiratory failure. FINDINGS: An AP, portable, upright chest radiograph is compared to study dated 07/28/2023 and correlated with chest CT dated 07/25/2023. An endotracheal tube, an enteric tube, and a right internal jugular central venous catheter are unchanged in position. The cardiomediastinal silhouette is top normal for projection noting atherosclerotic calcification of the thoracic aorta. There is pulmonary vascular congestion. There are small pleural effusions with dependent consolidation. No pneumothorax is seen. The skeletal structures are osteopenic. The bony thorax is grossly intact. IMPRESSION: 1. Stable lines and tubes. 2. Pulmonary vascular congestion has increased from previous. 3. Small pleural effusions with dependent consolidation. These have increased from previous. ACT 112: Negative or not required by law. Electronically signed by: Pravin Nguyen M.D. 07/30/2023 1:29 PM Chest X-Ray 07/31/23 07:00 SINGLE VIEW CHEST CLINICAL HISTORY: Respiratory failure. FINDINGS: An AP, portable, upright chest radiograph is compared to study dated 07/30/2023 and correlated with chest CT dated 07/25/2023. An endotracheal tube, an enteric tube, and a right internal jugular central venous catheter are unchanged in position. The cardiomediastinal silhouette is top normal for projection noting atherosclerotic calcification of the thoracic aorta. There is pulmonary vascular congestion. There are small pleural effusions with dependent consolidation. No pneumothorax is seen. The skeletal structures are osteopenic. The bony thorax is grossly intact. IMPRESSION: 1. Stable lines and tubes. 2. Pulmonary vascular congestion is similar to yesterday. 3. Small pleural effusions with dependent consolidation. This has also not appreciably changed. ACT 112: Negative or not required by law. Electronically signed by: Pravin Nguyen M.D. 07/31/2023 7:43 AM I & O Totals 24 Hours 07/30/23 07/31/23 08/01/23 06:59 06:59 06:59 Intake Total 3350.067 / 3350.067 2486.025 / 2486.025 416.7 / 416.7 Output Total 825 / 825 1110 / 1110 Balance 2525.067 / 2525.067 1376.025 / 1376.025 416.7 / 416.7 Cumulative 07/25/23 18:26 thru 07/31/23 10:19 Intake Total 50453.260 Output Total 7932 Balance 30264.260 RT Ventilator Mngmt (Last Documented) Ventilator Ordered Settings Ventilator Support Mode Assist Control 07/31/23 07:50 Respiratory Rate 19 07/31/23 07:50 Ventilator Tidal Volume 300 07/31/23 07:50 Setting Minute Ventilation 6 07/31/23 07:50 Positive End Expiratory 6 07/31/23 07:50 Pressure Fraction of Inspired Oxygen 30 07/31/23 07:50 Peak Inspiratory Flow 37 07/30/23 19:50 Machine Comment SpO2 98% FiO2 decreased from 50% 07/28/23 22:16 to 40% Last [place] [employer] [facility] made aware Ventilator - PT Measurements Respiratory Rate 19 Exhaled Tidal Volume 347 Minute Ventilation 6 Peak Inspiratory Airway 11 Pressure Plateau Pressure 13.7 Respiratory Cycle Inspiratory: 1:2.6 Expiratory Ratio Inspiratory Phase Time 0.65 End-Tidal CO2 37 Static Lung Compliance 61.05 Dynamic Lung Compliance 69.40 Normal Static Lung Compliance 49.00 Patient Measurements Comment Patient remains on full vent settings but is breathing over vent, will try patient on SBT. Coding Level of Care Code 84958 CRITICAL CARE 1ST 30-74M Diagnoses Septic shock A41.9; R65.21 Hydronephrosis due to obstruction of ureter N13.1 Acute kidney injury N17.9 HTN (hypertension) I10 Complicated urinary tract infection N39.0 Elevated lactic acid level R79.89
[2023-07-31] MEDS: CALCIUM CHLORIDE 10% 1,000 MG in DEXTROSE 5% 50 ML IV STA (11:15)
[2023-07-31] MEDS: LANTUS PER UNIT CHARGE SC ONE (11:15)
[2023-07-31] MEDS: METOPROLOL TARTRATE 25 MG TAB PO SCH (11:16)
--- NOTE | 2023-07-31 11:19 | Cardiology Consultation ---
Date of Consultation July 31, 2023 Assessment & Plan (1) Atrial fibrillation with rapid ventricular response: New onset AF in the setting of sepsis , hypotension, and concerns for thrombocytopenia and DIC. Concerns for GI blood loss earlier this stay , as well as lacunar infarct on CT. * Not a candidate for antiplatelet therapy of anticoagulation at present. * Continue low dose metoprolol tartrate 12.5 mg via oral gastric tube every 6 hours as BP allows, which had been started by critical care medicine. * Add digoxin and assess response * Will consider addition of amiodarone after reassessment of response to trial digoxin. History of Present Illness Attending Physician: Miky Peres MD History of Present Illness Zhane Kelly is a 73 year old female seen in cardiology consultation per the request of Dr Santos for the evaluation of atrial fibrillation with rapid ventricular response. Patient initially admitted on 07/26/23 with symptoms of encephalopathy in the setting of sepsis and obstructive uropathy. She underwent cystoscopy , right ureteral stent on 07/26/23. An MRI of the brain on 07/29/23 revealed a right occipital lobe lacunar infarct. Antiplatelet therapy initially held do to concerns of a GI bleed. She is on ventilator support and has required vasopressor support. She has developed acrocyanosis. DIC from sepsis versus ischemic necrosis from recent pressor has been contemplated for the cause of the acrocyanosis. Platelet count was as low as 14K on 07/29, 42 K on 07/31/23. Had been on argatroban for a short interval , but since discontinued. Today 07/31/22, patient was observed to have atrial fibrillation, new onset at 7:24 am with RVR in the 130s. Rates improved with low dose metoprolol and at present ventricular rate is about 120 bpm. Allergies Allergy/AdvReac Type Severity Reaction Status Date / Time No Known Allergies Allergy Verified 07/25/23 19:50 Home Medications Medication Instructions Recorded Confirmed Type lisinopril 10 mg tablet 10 mg PO QAM 11/14/20 07/25/23 History atorvastatin 40 mg tablet 40 mg PO QAM 07/25/23 07/25/23 History calcium carbonate 1,000 mg-vitamin 1 tab PO DAILY 07/25/23 07/25/23 History D3 20 mcg (800 unit) tablet cyanocobalamin (vitamin B-12) 1,000 mcg PO QAM 07/25/23 07/25/23 History 1,000 mcg tablet ibandronate 150 mg tablet 150 mg PO .EVERY 30 DAYS 07/25/23 07/25/23 History metformin 1,000 mg tablet 1,000 mg PO BIDWMEAL 07/25/23 07/25/23 History venlafaxine 150 mg 150 mg PO DAILY 07/25/23 07/25/23 History capsule,extended release 24 hr Patient History Medical History Fever 41 degrees C or over Acute encephalopathy History of COVID-19 History of colon polyps Anxiety HTN (hypertension) Surgical History S/P wrist surgery History of colonoscopy History of hysterectomy History of tonsillectomy Family History Grandmother Family history of diabetes mellitus Family history of colon cancer Grandfather Family history of colon cancer Aunt Family history of colon cancer Uncle Family history of colon cancer Social History Smoking Status: Current some day smoker Tobacco Type: Cigarettes Second Hand Exposure: No; Do You Dip or Chew Tobacco: No; Hx Alcohol Use: No Hx Substance Use: No Preferred Language: Welsh Communication Ability: Effective Learning Coach Required: No Beliefs That Will Affect Care: None Current Living Situation: Family Current Living Situation Comment: Pt's grandsonIlir lives with her Feels Safe at Home: Yes Assistive Devices: None Review of Systems Review of Systems: All systems reviewed & are unremarkable except as noted in HPI & below Physical Exam Constitutional: + ill appearing and + mechanically venti lated Respiratory: Auscultation: + diminished lung sounds (decreased BS at the bases ) Cardiovascular: Rate/Rhythm: + tachycardic and + irregularly irregular Heart Sounds: no murmur Musculoskeletal: acrocyanosis of extremities Neurologic: sedated Results & Data Vital Signs (Past 12 Hours) Vital Signs Temp Pulse Resp BP Pulse Ox FiO2 07/31/23 10:15 37.5 C 123 H 12 118/75 96 07/31/23 10:00 37.5 C 129 H 12 117/71 95 07/31/23 09:55 105 H 96 07/31/23 09:30 37.3 C 138 H 18 114/75 94 07/31/23 09:07 37.3 C 131 H 22 115/76 96 07/31/23 08:59 112 H 07/31/23 08:59 111 H 07/31/23 08:30 36.8 C 125 H 9 L 105/67 100 07/31/23 08:21 132 H 07/31/23 08:07 120 H 117/67 07/31/23 08:00 37.0 C 133 H 11 L 117/67 97 07/31/23 07:52 141 H 115/58 L 07/31/23 07:50 36.9 C 138 H 34 H 97/65 L 97 07/31/23 07:50 142 H 19 97 30 07/31/23 07:40 169 H 131/97 07/31/23 07:15 36.6 C 100 H 14 171/89 H 98 07/31/23 07:00 36.6 C 102 H 13 159/82 H 97 07/31/23 05:47 36.9 C 87 15 98 07/31/23 05:45 149/82 H 07/31/23 05:44 36.8 C 89 12 07/31/23 05:30 141/83 H 07/31/23 05:30 36.8 C 91 H 14 98 07/31/23 05:15 36.9 C 88 22 07/31/23 05:15 150/81 H 07/31/23 05:00 137/81 07/31/23 05:00 36.8 C 82 18 100 07/31/23 04:45 137/79 07/31/23 04:45 36.8 C 85 18 100 07/31/23 04:41 87 19 100 07/31/23 04:30 36.8 C 90 18 100 07/31/23 04:30 142/84 H 07/31/23 04:15 36.7 C 95 H 18 100 07/31/23 04:15 148/87 H 07/31/23 04:00 128/70 07/31/23 04:00 36.7 C 80 18 100 07/31/23 03:45 36.7 C 81 19 100 07/31/23 03:45 126/66 07/31/23 03:30 126/70 07/31/23 03:30 36.8 C 83 19 100 07/31/23 03:16 36.8 C 84 18 07/31/23 03:15 136/76 07/31/23 03:14 36.8 C 86 18 07/31/23 03:00 36.8 C 86 19 07/31/23 02:45 136/76 07/31/23 02:45 36.8 C 89 19 07/31/23 02:30 36.8 C 91 H 23 07/31/23 02:30 132/72 07/31/23 02:15 36.8 C 80 20 07/31/23 02:15 116/65 07/31/23 02:00 36.8 C 81 18 07/31/23 02:00 117/63 07/31/23 01:45 36.9 C 84 18 07/31/23 01:45 115/62 07/31/23 01:30 117/62 07/31/23 01:30 36.9 C 86 18 07/31/23 01:15 123/64 07/31/23 01:15 37.0 C 86 20 07/31/23 01:00 37.1 C 91 H 21 100 07/31/23 01:00 130/67 07/31/23 00:45 37.1 C 90 18 100 07/31/23 00:45 128/66 07/31/23 00:30 37.2 C 92 H 20 100 07/31/23 00:30 125/68 07/31/23 00:15 37.2 C 98 H 19 98 07/31/23 00:15 114/65 07/31/23 00:00 37.2 C 91 H 19 97 07/31/23 00:00 113/60 07/31/23 00:00 92 H 07/30/23 23:52 94 H 20 97 35 07/30/23 23:45 37.3 C 93 H 17 97 07/30/23 23:45 113/60 07/30/23 23:30 120/62 07/30/23 23:30 37.3 C 92 H 20 97 Laboratory Results CBC 07/31/23 Range/Units 05:37 WBC 17.74 H (4.8-10.8) K/ul RBC 2.75 L (4.20-5.40) M/uL Hgb 8.1 L (12.0-16.0) g/dl Hct 24.5 L (37.0-47.0) % Plt Count 42 L (130-400) K/uL Neut # (Auto) 14.93 H (1.40-6.50) K/uL Lymph # (Auto) 0.99 L (1.20-3.40) K/uL [place] # (Auto) 1.29 H (0.11-0.59) K/uL Eos # (Auto) 0.00 (0.00-0.50) K/uL Baso # (Auto) 0.06 (0.00-0.20) K/uL Comprehensive Metabolic Panel 07/31/23 Range/Units 05:29 Sodium 150 H (136-145) mmol/L Potassium 3.7 (3.5-5.1) mmol/L Chloride 117 H (98-107) mmol/L Carbon Dioxide 27 (21-32) mmol/L BUN 35 H (6-23) mg/dl Creatinine 0.93 (0.6-1.2) mg/dl Glucose 117 H (70-99(Fasting)) mg/dl Calcium 7.1 L (8.6-10.3) mg/dl Intake and Output 07/30/23 07/31/23 07/31/23 22:59 06:59 14:59 Intake Total 972.520 / 2486.025 155.837 / 2486.025 751.7 / 751.7 Output Total 390 / 1110 310 / 1110 150 / 150 Balance 582.520 / 1376.025 -154.163 / 1376.025 601.7 / 601.7 Intake: IV 972.520 / 2486.025 155.837 / 2486.025 751.7 / 751.7 Acyclovir Sod 835 mg In 266.7 / 533.4 266.7 / 266.7 Dextrose 5% 250 ml @ 250 mls/hr IV Q12H [facility] Rx#:[id number] Ampicillin 2,000 mg In Sodium 200 / 400 100 / 400 100 / 100 Chlor 0.9% Mini-B 100 ml @ 200 mls/hr IV Q6H [facility] Rx#:[id number] Calcium Chloride 10% 1,000 mg 60 / 60 In Dextrose 5% 50 ml @ 240 mls/ hr IV NOW [facility] Rx#:[id number] Insulin Regular 250 units In 13.413 / 43.542 12.587 / 43.542 Sodium Chloride 0.9% 247.5 ml @ 1.6 UNITS/HR 1.6 mls/hr IV . Q24H [facility] Rx#:[id number] Phenylephrine/Nss 25 mg In 250 92.573 / 250.000 ml @ 0.5 MCG/KG/MIN 25.05 mls/ hr IV .[id number] [facility] Rx#:[id number] Vancomycin HCl 1,250 mg In 275 / 275 275 / 275 Sodium Chloride 0.9% 250 ml @ 200 mls/hr IV Q24H [facility] Rx#: [id number] cefTRIAXone SODIUM 2,000 mg In 50 / 100 50 / 50 Dextrose 5 % Mini-B 50 ml @ 100 mls/hr IV Q12H [facility] Rx#: [id number] fentaNYL citrate 2,500 mcg In 74.834 / 250.000 250 ml @ 0 MCG/HR IV .Q0M [facility] Rx#:[id number] propofoL 1,000 mg In 100 ml @ 43.25 / 129.083 0 / 0 10 MCG/KG/MIN 5.01 mls/hr IV . [id number] [facility] Rx#:[id number] Output: Urine Amount (Catheter) 390 / 1110 310 / 1110 150 / 150 Joshi/Indwelling 390 / 1110 310 / 1110 150 / 150 Other: Weight 87 kg Weight Measurement Method Built in [facility] Diagnostic Findings EKG performed 07/31/2023 at 7:27 AM reveals atrial fibrillation at 162 bpm, poor R wave progression anterior precordial leads. Compared to the previous tracing performed on 07/26 atrial fibrillation has replaced sinus rhythm. Echocardiogram performed 07/26/2023: Sinus tachycardia at the time of study Moderate concentric left ventricular hypertrophy, LVEF in the range of 50 to 55%, mild to moderate mitral regurgitation Lipomatous hypertrophy of the interatrial septum noted With the administration of agitated saline contrast, the interatrial septum was felt to be intact with bubbles appearing in the left-sided chambers light sug gestive of an extra cardiac source of right to left shunt.
[2023-07-31] MEDS: TUBE FEEDING WATER FLUSH NG ONE (11:24)
[2023-07-31] MEDS: SODIUM CHLORIDE 0.45 % 1,000 ML IV SCH (11:28)
[2023-07-31] MEDS: TUBE FEEDING WATER FLUSH GT SCH (11:29)
[2023-07-31 11:31] LABS: Complement C3 67 mg/dL (83-193); Complement Total(CH50) 55 U/mL (31-60)
[2023-07-31] MEDS ORDERED: Nursing to Pharmacy Communication SCH (11:45)
[2023-07-31] MEDS: DIGOXIN 250 MCG in SYRINGE 9 ML IV ONE ×2 (11:50→16:17)
--- NOTE | 2023-07-31 12:01 | Hospitalist Progress Note ---
Date of Service July 31, 2023 Assessment & Plan (1) Encephalopathy: Plan: 73-year-old lady with PMH of HTN, HLD, T2DM, HCV status posttreatment, anxiety/mood disorder was brought in with complaint of confusion for about 1 day duration. 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 She is being managed for the following: ADMITTING IMANGINGS: Admitting CXR with no acute finding. Admitting CT head with no acute finding. Admitting CTA head WNL. Admitting CTA neck with moderate left ICA stenosis and possible high risk/ulcerated plaque in this location. Admitting CTA chest with no PE. Admitting CTAP with mild right hydronephrosis, secondary to 2 into 5 mm stone in the mid ureter. Concern for right pyelonephritis. No perinephric abscess. C holelithiasis without acute cholecystitis. Complicated UTI Urolithiasis and obstructive uropathy Urosepsis Severe sepsis POA: Secondary to above. Respiratory rate/pulse rate/WBC elevated at presentation. Lactate and procalcitonin elevated at presentation. Septic shock: Patient's blood pressure did not improve despite aggressive fluid resuscitation, was transferred to ICU for pressor support requirement at admission. Likely metabolic encephalopathy: Secondary to above Gram-negative bacteremia: 07/25 blood culture positive for Klebsiella pneumoniae in 2 of 4 bottles. Repeat blood culture 07/27 no growth till date. Patient presented with using, about a week worth of right flank pain. Poor appetite and not feeling well. UA suggestive of UTI, admitting CTAP with renal stone and concern for right pyelonephritis Initially admitted in ICU, needed pressor support, s/p pressors 07/26 afternoon. 07/25 Bl Cx - K. Pneumoniae; 07/26 Urine Cx - K Pneumoniae 07/27 Bl Cx -no growth till date Urology evaluated, status post cystoscopy and right retrograde pyelogram/right ureteral stent placement 07/26/2023 Patient was started on cefepime 07/26, to ceftriaxone 07/27, d/w ID 07/28 - agreed w/ Rx. Continue. CTAP repeated 07/29 for concern of perinephric abscess, which was ruled out. Will need antibiotics for urosepsis for 14 days Management per ICU. Acute metabolic encephalopathy Acute fever Thrombocytopenia Patient had developed acrocyanosis and nasal tip cyanosis overnight of 07/26- 07/27. Patient has been off of pressor support [vasopressin and Levophed] since 07/26 afternoon. 07/27 - Duplex arterial scan of UE and LE WNL. Venous Doppler BLE negative for DVT. Patient was started on heparin drip and Solu-Medrol for concern of cryoglobulinemia. 07/28 - acrocyanosis progressed. Discussed with various subspecialties including rheumatology/hematology/mohs surgeon. Peripheral blood smear with no schistocytes. TTP HUS ruled out. DIC from sepsis versus ischemic necrosis from recent pressor use was contemplated as DD for acrocyanosis. Patient was transferred to ICU and was intubated due to tachypnea/shallow breathing. She also developed fever, and started on vancomycin/acyclovir/ampicillin on top of Rocephin in the line of encephalitis versus meningitis. Lumbar puncture was deferred due to dropping platelets. MRI brain was obtained which revealed punctate right occipital lobe lacunar infarct. ANAHI screen is negative. PF4 antibody negative --HIT ruled out. Again no schistocytes noted on peripheral smearTTP HUS ruled out Mechanical ventilation as per ICU. Patient failed spontaneous breathing trial on 07/31 Awaiting ADAMTS 13, complement, cryoglobulins, haptoglobin,pending Acyclovir, vancomycin, ampicillin discontinued as per ICU due to low suspicion of meningeal source. New onset anemia Likely UGIB Prior hemoglobin level 13.9, admitting hemoglobin 11.1 Hemoccult positive melanotic stool noted at the ER GI evaluated 07/26, PPI drip changed to twice daily. Monitor H&H and transfuse as needed. Will likely need follow-up with GI as an outpatient. Anemia workup, transfuse PRBC if hemoglobin less than 7 and or for symptomatic anemia TF started due to intubated status. Atrial fibrillation with RVR Demand ischemia Patient developed atrial fibrillation with RVR on July 30, 2023 Echocardiogram from 07/26 shows EF of 50 to 55% with mild concentric LVH. 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 07/29 MRI w/ punctate right occipital lobe lacunar infarct. Neurology consultedContin neurochecks. A1c 7.1; LDL 12. Will need antiplatelet cons ideration once out of acute issues. Zio patch as an outpatient. Acute kidney injury: Admitting creatinine of 1.6, past creatinine 0.89. Status post IV fluid, s/p pressor support. Likely prerenal secondary to septic shock. Improvement with IV hydration Other chronic medical conditions: Continue with/resume home meds as and when able. Hypertension, lisinopril currently on hold. hyperlipidemia, on statin Rx. Continue DM2 on oral medications, reasonable control as of recent hemoglobin A1c of 7.1 last March 2023 HCV status post Rx Recent COVID-19 illness from 2 weeks ago, monitor respiratory symptoms. DVT prophylaxis. SCDs Re: Thrombocytopenia Full code Time spent evaluating patient, direct bedside care, chart review, placing orders, interpretation of diagnostic studies, discussion with consultants, patient, and family members, as well as other required patient management activities is 50 minutes Please note the above document was generated using voice recognition software. It may contain grammatical, syntax or spelling errors. Any formal questions or concerns about the content, text or information contained within the body of this dictation should be directly addressed to the provider for clarification Admission and Anticipated Discharge Date Admission Date: July 26, 2023 Subjective Patient continues to be on mechanical ventilation. She is opening her eyes spontaneously. Review of Systems Review of Systems: Unobtainable due to endotracheal tube Physical Exam Physical Exam: GENERAL: Mechanically ventilated. HEENT: No pallor, no icterus. Pupils equal, round and reactive to light. Bluish discoloration on the nose. NECK: No JVD, no neck masses. HEART: S1 and S2 heard. RRR. No murmur, no gallop. RESPIRATORY SYSTEM: Bilateral mechanical breath sound ABDOMEN: Soft,no distention. CENTRAL NERVOUS SYSTEM: No facial droop. EXTREMITIES: Bluish discoloration discoloration in both hands and legs. Results & Data Results & Data Vital Signs (Past 12 Hours) Vital Signs Temp Pulse Resp BP Pulse Ox FiO2 07/31/23 10:15 37.5 C 123 H 12 118/75 96 07/31/23 10:00 37.5 C 129 H 12 117/71 95 07/31/23 09:55 105 H 96 07/31/23 09:30 37.3 C 138 H 18 114/75 94 07/31/23 09:07 37.3 C 131 H 22 115/76 96 07/31/23 08:59 112 H 07/31/23 08:59 111 H 07/31/23 08:30 36.8 C 125 H 9 L 105/67 100 07/31/23 08:21 132 H 07/31/23 08:07 120 H 117/67 07/31/23 08:00 37.0 C 133 H 11 L 117/67 97 07/31/23 07:52 141 H 115/58 L 07/31/23 07:50 36.9 C 138 H 34 H 97/65 L 97 07/31/23 07:50 142 H 19 97 30 07/31/23 07:40 169 H 131/97 07/31/23 07:15 36.6 C 100 H 14 171/89 H 98 07/31/23 07:00 36.6 C 102 H 13 159/82 H 97 07/31/23 05:47 36.9 C 87 15 98 07/31/23 05:45 149/82 H 07/31/23 05:44 36.8 C 89 12 100 07/31/23 05:30 141/83 H 07/31/23 05:30 36.8 C 91 H 14 98 07/31/23 05:15 36.9 C 88 22 100 07/31/23 05:15 150/81 H 07/31/23 05:00 137/81 07/31/23 05:00 36.8 C 82 18 100 07/31/23 04:45 137/79 07/31/23 04:45 36.8 C 85 18 100 07/31/23 04:41 87 19 100 30 07/31/23 04:30 36.8 C 90 18 100 07/31/23 04:30 142/84 H 07/31/23 04:15 36.7 C 95 H 18 100 07/31/23 04:15 148/87 H 07/31/23 04:00 128/70 07/31/23 04:00 36.7 C 80 18 100 07/31/23 03:45 36.7 C 81 19 100 07/31/23 03:45 126/66 07/31/23 03:30 126/70 07/31/23 03:30 36.8 C 83 19 100 07/31/23 03:16 36.8 C 84 18 100 07/31/23 03:15 136/76 07/31/23 03:14 36.8 C 86 18 100 07/31/23 03:00 36.8 C 86 19 100 07/31/23 02:45 136/76 07/31/23 02:45 36.8 C 89 19 07/31/23 02:30 36.8 C 91 H 23 07/31/23 02:30 132/72 07/31/23 02:15 36.8 C 80 20 100 07/31/23 02:15 116/65 07/31/23 02:00 36.8 C 81 18 100 07/31/23 02:00 117/63 07/31/23 01:45 36.9 C 84 18 07/31/23 01:45 115/62 07/31/23 01:30 117/62 07/31/23 01:30 36.9 C 86 18 07/31/23 01:15 123/64 07/31/23 01:15 37.0 C 86 20 07/31/23 01:00 37.1 C 91 H 21 100 07/31/23 01:00 130/67 07/31/23 00:45 37.1 C 90 18 100 07/31/23 00:45 128/66 07/31/23 00:30 37.2 C 92 H 20 100 07/31/23 00:30 125/68 07/31/23 00:15 37.2 C 98 H 19 98 07/31/23 00:15 114/65 07/31/23 00:00 37.2 C 91 H 19 97 07/31/23 00:00 113/60 07/31/23 00:00 92 H 07/30/23 23:52 94 H 20 97 35
[2023-07-31] MEDS: POT PHOSPHATE MONOBASIC W/ SOD TAB PO SCH (13:04)
[2023-07-31] MEDS ORDERED: METOPROLOL TARTRATE 1 MG/ML VIAL IV STA (13:35)
[2023-07-31] MEDS: METOPROLOL TARTRATE 1 MG/ML VIAL IV STA (13:41)
--- NOTE | 2023-07-31 14:24 | Pharmacy Report ---
Pharmacy Glycemic Short Note 2 - Date of Service July 31, 2023 - Glycemic Short BSG Results (Last 24 hours): 07/30/23 07/30/23 07/30/23 15:07 16:26 17:49 Glucose POC Glucose POC Glucose (other) 102 H 116 H 123 H 07/30/23 07/30/23 07/31/23 19:48 22:08 00:06 Glucose POC Glucose POC Glucose (other) 131 H 161 H 154 H 07/31/23 07/31/23 07/31/23 02:26 04:14 05:29 Glucose 117 H POC Glucose POC Glucose (other) 142 H 146 H 07/31/23 07/31/23 07/31/23 06:23 07:39 12:03 Glucose POC Glucose POC Glucose (other) 179 H 177 H 111 H 07/31/23 13:38 Glucose POC Glucose 146 H POC Glucose (other) OUTPATIENT ANTIDIABETIC REGIMEN: * Metformin 1000 mg BIDM * A1c 7.1% 07/26/23 ASSESSMENT: 07/31 * Insulin infusion has been running at 1.6 units/hr with BSGs in the 170s, discussed at rounds, plan to transition off of insulin infusion d/t difficulty with obtaining BSGs and stable glucoses. Transitioned with 12 units of insu jack. * To begin Novolog ~ stress of 2 weight based dosing, patient is current NPO with tube feeds held.- Monitor for adjustments 07/30 * Ms. Kelly is a 73 yo admitted with severe sepsis/septic shock from Kleb. pneumoniae bacteremia from urinary source. Patients course has been complicated, intubated 07/28 with encephalopathy. MRI with stroke. Currently being treated with empiric antibiotics for possible meningitis that has been unable to be r/o. * Patient had downtrending platelets, DIC, HIT unlikely but further testing pending, all anticoagulation currently being held (received ~ 18 hours of argatroban 07/29-07/30 AM) * BSGs became elevated overnight on the and an insulin infusion initiated the morning of the . * Will continue with insulin infusion at this time given many moving parts, patient remains intubated, intermittently on pressors- currently off. On trophic feeds that may be held if able to extubate later today/tomorrow. Remains on methylpred 40 mg q12H IV. PLAN FOR INPATIENT GLYCEMIC CONTROL: * Hold outpatient oral diabetes medications * Lantus 12 units x 1 * Novolog q6H while NPO * --Goal BSG Range: Low 110 mg/dL, High 140mg/dL --Correction Factor: 25 mg/dL/unit --Carbohydrate ratio = 12 g/unit
--- NOTE | 2023-07-31 15:12 | Electrocardiogram Report ---
Test Reason : Blood Pressure : / mmHG Vent. Rate : 162 BPM Atrial Rate : 096 BPM P-R Int : 000 ms QRS Dur : 070 ms QT Int : 272 ms P-R-T Axes : 000 070 066 degrees QTc Int : 446 ms Atrial fibrillation with rapid ventricular response Septal infarct , age undetermined Abnormal ECG When compared with ECG of 28-JUL-2023 09:38, Atrial fibrillation has replaced Sinus rhythm Confirmed by Cabrera Godfrey ([id number]) on 07/31/2023 3:12:17 PM Referred By: REFERRED SELF Confirmed By:Cabrera Godfrey
[2023-07-31 17:52] LABS: BUN Creatinine Ratio 40.7 (10-20); Calcium 7.7 mg/dl (8.6-10.3); Creatinine Clr Calc Pharmacy 64.7 ml/min; Est GFR (African American) 77.7 ml/min; Potassium 3.8 mmol/L (3.5-5.1)
[2023-07-31] MEDS: METOPROLOL TARTRATE 25 MG TAB PO STA (22:40)
[2023-07-31] MEDS ORDERED: ACETAMINOPHEN SUSP 500 MG/15.6 ML UDP PO PRN (22:48)
[2023-08-01 00:13] LABS: PTT LA Screen 45 sec (<=40)
[2023-08-01] MEDS: STAT IV Infusion **Titration per Protocol STA (00:21)
[2023-08-01] MEDS: METOPROLOL TARTRATE 25 MG TAB PO SCH (04:05)
[2023-08-01] MEDS: propofoL 1,000 MG/100 ML VIAL IV SCH (04:12)
[2023-08-01] MEDS: PROPOFOL BOLUS FROM BAG IV PRN (04:16)
[2023-08-01 04:19] LABS: Basophils # (auto) 0.07 K/uL (0.00-0.20); Basophils % (auto) 0.4 %; Hematocrit (blood only) 24.3 % (37.0-47.0); Hemoglobin 7.7 g/dl (12.0-16.0); Immature Granulocytes # (auto) 0.44 K/uL (0.01-0.20); Immature Granulocytes % (auto) 2.4 %; Lymphocytes # (auto) 0.93 K/uL (1.20-3.40); Lymphocytes % (auto) 5.1 %; Mean Corpuscular Hemoglobin 28.8 pg (25.0-34.0); Mean Corpuscular Hgb Conc 31.7 g/dL (32.0-36.0); Mean Platelet Volume 12.7 fL (9.4-12.4); Monocytes # (auto) 0.82 K/uL (0.11-0.59); Monocytes % (auto) 4.5 %; Neutrophils % (auto) 87.6 %; Nucleated RBC # (auto) 0.04 K/uL (0.00-0.12); Nucleated RBC % (auto) 0.2 %; Platelet Count 91 K/uL (130-400); RDW Coefficient of Variation 14.3 % (11.5-14.5); RDW Standard Deviation 47.8 fL (36.4-46.3); Red Blood Count 2.67 M/uL (4.20-5.40); White Blood Count 18.06 K/ul (4.8-10.8)
[2023-08-01 04:39] LABS: BUN Creatinine Ratio 40.5 (10-20); Calcium 7.4 mg/dl (8.6-10.3); Creatinine Clr Calc Pharmacy 70.5 ml/min; Est GFR (African American) 86.1 ml/min; Est GFR (Non-African American) 74.3 ml/min; Magnesium 2.1 mg/dl (1.7-2.4); Phosphorus 3.9 mg/dl (2.5-4.9); Potassium 3.6 mmol/L (3.5-5.1)
[2023-08-01 04:47] LABS: RBC Morphology Unremarkable
[2023-08-01] MEDS: cefTRIAXone SODIUM 2,000 MG in DEXTROSE 5 % MINI-B 50 ML IV SCH (06:09)
--- NOTE | 2023-08-01 07:29 | XRay Report ---
XR chest 1V portable CLINICAL HISTORY: Resp failure TECHNIQUE: Single frontal radiograph of the chest was obtained. Comparison: Comparison is made to chest radiograph 07/31/2023 FINDINGS: Endotracheal tube terminates 3 cm from the clairssa. Cardiomegaly is noted. The aortic arch is calcifie d. Prominence and cephalization of the vasculature is seen. Small bilateral pleural effusions are see n. IMPRESSION: Small bilateral pleural effusions. Lines and tubes are stable. Stable mild pulmonary vascular congest ion. ACT 112: Negative or not required by law. Electronically signed by: Jomar Palomo M.D. 08/01/2023 7:26 AM
[2023-08-01 07:42] LABS: Cyclic Citrullinated Pep IgG <16 UNITS; HBSAG NON-REACTIVE (NON-REACTIVE); Hepatitis A Antibody IgM NON-REACTIVE (NON-REACTIVE); Hepatitis B Core Antibody IgM NON-REACTIVE (NON-REACTIVE); Rheumatoid Factor <14 IU/mL (<14)
--- NOTE | 2023-08-01 08:25 | Critical Care Progress Note ---
Date of Service August 01, 2023 Assessment & Plan (1) Septic shock: (2) Hydronephrosis due to obstruction of ureter: (3) Acute kidney injury: (4) HTN (hypertension): (5) Complicated urinary tract infection: (6) Elevated lactic acid level: Plan Reason Critically Ill: 73-year-old female presents to the ICU with septic shock following right ureteral stone with hydronephrosis, status post right ureteral stent. Now hypotensive requiring vasopressor support. 24-hour events: Platelet counts continue to recover (91k today). Acrocyanosis of the digits and nose appears stable and unchanged. A. fib improved. FiO2 30%. Tolerating SBT well. Recommendations: Neuro: Encephalopathy improved. Able to answer simple questions. Small stroke on MRI. Will start Heparin in the setting of thromboembolic events and A. fib. Will start low dose no bolus. Neurology notes reviewed Cardiac - History of septic shock - Resolved 2D echo 07/26/2023: EF 50-55%, mild to moderate MR, RV normal in size and function. Echo showed a potential extracardiac shunt physiology. No obvious evidence of AVM on the CT of her chest. Pressors off at this point. A. Fib improved - appreciate cardiology recommendations. Continue metoprolol 12.5 mg every 6 hours. Can titrate up as tolerated. Anticoagulation as above. Respiratory - Hypoxemic respiratory failure necessitating intubation mechanical ventilation day #5. On minimal vent settings currently. Tolerating SBT well. Plan for extubation trail this AM. GI - Hold tube feeds pending extubation. Reassess swallowing mechanism once extubated. RENAL/LYTES - Hypernatremia: Improved. Continue with 1/2 NS for now. - Obstructive ureteral stone/hydronephrosisstatus post right ureteral stent placement via cystoscope. Management per urology. No evidence of perinephric abscess on imaging study. Will need outpatient urology follow-up ENDO - Glycemic control per protocol. Fingersticks are not possible given her digital acrocyanosis/necrosis. Will see if we can transition her to a sliding scale regiment. HEME - Thrombocytopenia with anemia. Discussed extensively with hematology oncology. Currently believed secondary to be DIC. Haptoglobin 464. Platelets stabilizing at >90k this am. Restart Heparin gtt - low dose, no bolus. ID - Urosepsis with Klebsiella bacteremia, pansensitive. My suspicion for meningeal source of infection is low given the absence of fever and her improving white blood cell count. Her encephalopathy also appears to be clearing. Continue Rocephin for a total of 10 days in the setting of bacteremia. Skin - Digital cyanosis with necrosis. Unclear etiology. Complements pending. Cryoglobulins pending. Will continue to watch for demarcation. Continue local wound care --Prophylaxis VTE: Heparin gtt GI: Pantoprazole Lines: Right IJ Diet: HUM[employer] INTERN to evaluate after extubation. Spoke to the patient's sister, Ana by phone this morning to update her regarding extubation. Patient is critically ill with significant possibility of clinical deterioration and/or . A total of 38 minutes in critical care time was spent in evaluation and management of this patient. Admission and Anticipated Discharge Date Admission Date: July 26, 2023 Supervising Physician Co-Signing Physician Notes Patient seen and examined. MR blas. Discussed with critical care ARMINDA as well as on multidisciplinary rounds and with bedside critical care nurse. Patient did well with an SBT this morning. She is been hemodynamically stable. She was extubated. Will initiate aggressive PT OT and speech therapy. Continue beta-armando. Given that her thrombocytopenia is resolving, will initiate heparin given her A-fib and small potential embolic stroke. May consider antiplatelet agents in the future. Continue wound management for her acrocyanosis. Out of bed to chair as tolerated. Will work on discontinuing Joshi catheter. Will need 10 days of parenteral antibiotics. Discussed with family. If she does well, can potentially transfer out of the ICU in the next 24 hours Subjective Patient seen and evaluated at bedside. The patient is intubated and sedated. Review of Systems Review of Systems: Unchanged from priors Physical Exam Physical Exam: VITAL SIGNS - Vital signs and nursing notes were reviewed. GENERAL - 73-year-old female appearing her stated age who is in no acute distress. Opens eyes, responds to simple commands. SKIN - Ischemia and ecchymosis of the nose and stocking-glove pattern. NOSE - As above. MOUTH/OROPHARYNX - Without perioral cyanosis. ETT/OGT in place. NECK - RIGHT IJ CVL in place. Supple to palpation. LUNGS - Auscultation reveals clear breath sounds without wheezes, rales, or rhonchi. CARDIAC - RRR with S1/S2. No murmur, rubs, or gallops appreciated. ABDOMEN - Abdominal inspection demonstrates an obese abdomen. BS normoactive. EXTREMITIES - Ischemic injury and ecchymosis noted to the nose and in a stocking-glove pattern. PSYCH - A&Ox3 and cooperates fully with examiner. Pt is very pleasant and interacts well with examiner. Results & Data Results & Data Vital Signs (Past 12 Hours) Vital Signs Temp Pulse Resp BP Pulse Ox FiO2 08/01/23 07:50 87 15 99 30 08/01/23 04:23 91 H 14 98 30 08/01/23 04:15 36.8 C 90 17 97 08/01/23 04:15 142/87 H 08/01/23 04:00 36.9 C 91 H 12 98 08/01/23 04:00 166/82 H 08/01/23 04:00 30 08/01/23 03:45 168/87 H 08/01/23 03:45 36.9 C 91 H 15 98 08/01/23 03:30 161/83 H 08/01/23 03:30 37.0 C 92 H 11 L 97 08/01/23 03:15 169/85 H 08/01/23 03:15 37.1 C 90 15 98 08/01/23 03:00 156/77 H 08/01/23 03:00 37.1 C 91 H 11 L 97 08/01/23 02:45 157/82 H 08/01/23 02:45 37.1 C 91 H 12 97 08/01/23 02:30 160/80 H 08/01/23 02:30 37.2 C 90 12 98 08/01/23 02:15 152/75 H 08/01/23 02:15 37.2 C 91 H 10 L 96 08/01/23 02:00 152/74 H 08/01/23 02:00 37.3 C 95 H 13 96 08/01/23 01:45 156/67 H 08/01/23 01:45 37.2 C 113 H 13 98 08/01/23 01:30 165/83 H 08/01/23 01:30 34.8 C L 97 H 14 98 08/01/23 01:15 153/77 H 08/01/23 01:15 37.3 C 92 H 10 L 97 08/01/23 01:00 158/75 H 08/01/23 01:00 37.4 C 108 H 12 96 08/01/23 00:47 101 H 08/01/23 00:45 145/76 H 08/01/23 00:45 37.5 C 107 H 12 96 08/01/23 00:30 169/66 H 08/01/23 00:30 37.5 C 108 H 15 98 08/01/23 00:15 145/86 H 08/01/23 00:15 37.5 C 102 H 13 95 08/01/23 00:00 37.6 C H 96 H 12 95 08/01/23 00:00 30 07/31/23 23:45 184/79 H 07/31/23 23:45 37.7 C H 114 H 15 99 07/31/23 23:30 37.6 C H 109 H 14 95 07/31/23 23:30 154/85 H 07/31/23 23:19 97 H 16 99 30 07/31/23 23:15 160/79 H 07/31/23 23:15 37.7 C H 101 H 14 96 07/31/23 23:00 172/83 H 07/31/23 23:00 37.8 C H 92 H 14 96 07/31/23 22:45 37.8 C H 88 17 96 07/31/23 22:45 148/85 H 07/31/23 22:30 37.9 C H 101 H 16 100 07/31/23 22:15 173/79 H 07/31/23 22:15 38.0 C H 115 H 18 100 07/31/23 22:04 38.0 C H 113 H 18 100 07/31/23 22:04 166/74 H 07/31/23 22:00 38.0 C H 133 H 18 95 07/31/23 21:46 130/61 07/31/23 21:46 38.0 C H 115 H 16 96 07/31/23 21:45 38.0 C H 117 H 17 97 07/31/23 21:30 129/53 L 07/31/23 21:30 38.0 C H 111 H 17 95 07/31/23 21:16 114/57 L 07/31/23 21:16 37.9 C H 146 H 17 96 07/31/23 21:15 37.9 C H 123 H 16 86 L 07/31/23 21:01 147/60 H 07/31/23 21:01 37.9 C H 130 H 14 99 07/31/23 21:00 37.9 C H 123 H 14 97 07/31/23 20:45 140/64 07/31/23 20:45 37.9 C H 116 H 13 98 07/31/23 20:31 130/65 07/31/23 20:31 37.9 C H 137 H 15 98 07/31/23 20:30 37.9 C H 130 H 14 99 Coding Level of Care Code 26059 CRITICAL CARE 1ST 30-74M Diagnoses Septic shock A41.9; R65.21 Hydronephrosis due to obstruction of ureter N13.1 Acute kidney injury N17.9 HTN (hypertension) I10 Complicated urinary tract infection N39.0 Elevated lactic acid level R79.89
[2023-08-01] MEDS: LANTUS PER UNIT CHARGE SC SCH (08:40)
[2023-08-01] MEDS: POTASSIUM CHLORIDE 20 MEQ/15 ML UDC PO STA (08:40)
[2023-08-01 09:30] LABS: Lupus Hex Phase (Rflxdonotord) Positive (Negative)
[2023-08-01 09:30] LABS: Hepatitis C Vira RNA (Log) PCR <1.18 NOT DETECTED Log IU/mL (NOT DETECTED); Hepatitis C Viral RNA by PCR <15 NOT DETECTED IU/mL (NOT DETECTED)
[2023-08-01] MEDS ORDERED: Heparin IV Adult Wt-Based Low-Dose *NO* INITIAL Bolus Protocol IV SCH (09:56)
[2023-08-01] MEDS: HEPARIN SODIUM/DEXTROSE 25,000 UNITS/500 ML BAG IV SCH (10:37)
--- NOTE | 2023-08-01 11:03 | Hospitalist Progress Note ---
Date of Service August 01, 2023 Assessment & Plan (1) Encephalopathy: Plan: 73-year-old lady with PMH of HTN, HLD, T2DM, HCV status posttreatment, anxiety/mood disorder was brought in with complaint of confusion for about 1 day duration. 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 She is being managed for the following: ADMITTING IMANGINGS: Admitting CXR with no acute finding. Admitting CT head with no acute finding. Admitting CTA head WNL. Admitting CTA neck with moderate left ICA stenosis and possible high risk/ulcerated plaque in this location. Admitting CTA chest with no PE. Admitting CTAP with mild right hydronephrosis, secondary to 2 into 5 mm stone in the mid ureter. Concern for right pyelonephritis. No perinephric abscess. C holelithiasis without acute cholecystitis. Complicated UTI Urolithiasis and obstructive uropathy Urosepsis Severe sepsis POA: Secondary to above. Respiratory rate/pulse rate/WBC elevated at presentation. Lactate and procalcitonin elevated at presentation. Septic shock: Patient's blood pressure did not improve despite aggressive fluid resuscitation, was transferred to ICU for pressor support requirement at admission. Likely metabolic encephalopathy: Secondary to above Gram-negative bacteremia: 07/25 blood culture positive for Klebsiella pneumoniae in 2 of 4 bottles. Repeat blood culture 07/27 no growth till date. Patient presented with using, about a week worth of right flank pain. Poor appetite and not feeling well. UA suggestive of UTI, admitting CTAP with renal stone and concern for right pyelonephritis Initially admitted in ICU, needed pressor support, s/p pressors 07/26 afternoon. 07/25 Bl Cx - K. Pneumoniae; 07/26 Urine Cx - K Pneumoniae 07/27 Bl Cx -no growth till date Urology evaluated, status post cystoscopy and right retrograde pyelogram/right ureteral stent placement 07/26/2023 Patient was started on cefepime 07/26, to ceftriaxone 07/27, d/w ID 07/28 - agreed w/ Rx. Continue. CTAP repeated 07/29 for concern of perinephric abscess, which was ruled out. Will need antibiotics for urosepsis for 14 days Management per ICU. Acute metabolic encephalopathy Acute fever Thrombocytopenia Patient had developed acrocyanosis and nasal tip cyanosis overnight of 07/26- 07/27. Patient has been off of pressor support [vasopressin and Levophed] since 07/26 afternoon. 07/27 - Duplex arterial scan of UE and LE WNL. Venous Doppler BLE negative for DVT. Patient was started on heparin drip and Solu-Medrol for concern of cryoglobulinemia. 07/28 - acrocyanosis progressed. Discussed with various subspecialties including rheumatology/hematology/lumber sales supervisor. Peripheral blood smear with no schistocytes. TTP HUS ruled out. DIC from sepsis versus ischemic necrosis from recent pressor use was contemplated as DD for acrocyanosis. Patient was transferred to ICU and was intubated due to tachypnea/shallow breathing. She also developed fever, and started on vancomycin/acyclovir/ampicillin on top of Rocephin in the line of encephalitis versus meningitis. Lumbar puncture was deferred due to dropping platelets. MRI brain was obtained which revealed punctate right occipital lobe lacunar infarct. ANAHI screen is negative. PF4 antibody negative --HIT ruled out. Again no schistocytes noted on peripheral smearTTP HUS ruled out Haptoglobin within normal limits Mechanical ventilation as per ICU. Patient failed spontaneous breathing trial on 07/31 Awaiting ADAMTS 13, cryoglobulins, ,pending Acyclovir, vancomycin, ampicillin discontinued as per ICU due to low suspicion of meningeal source. New onset anemia Likely UGIB Prior hemoglobin level 13.9, admitting hemoglobin 11.1 Hemoccult positive melanotic stool noted at the ER GI evaluated 07/26, PPI drip changed to twice daily. Monitor H&H and transfuse as needed. Will likely need follow-up with GI as an outpatient. Anemia workup, transfuse PRBC if hemoglobin less than 7 TF started due to intubated status. Atrial fibrillation with RVR Demand ischemia Patient developed atrial fibrillation with RVR on July 30, 2023 Echocardiogram from 07/26 shows EF of 50 to 55% with mild concentric LVH. Evidence of late shunt suggesting extracardiac source Started on digoxin Started on heparin drip as per ICU as platelets have improved. Right occipital lobe lacunar infarct: Head and neck imagings reviewed as above. 07/29 MRI w/ punctate right occipital lobe lacunar infarct. Neurology consultedContinue neurochecks. A1c 7.1; LDL 12. Will need antiplatelet consid eration once out of acute issues. Zio patch as an outpatient. Acute kidney injury: Admitting creatinine of 1.6, past creatinine 0.89. Status post IV fluid, s/p pressor support. Likely prerenal secondary to septic shock. Improvement with IV hydration Other chronic medical conditions: Continue with/resume home meds as and when able. Hypertension, lisinopril currently on hold. hyperlipidemia, on statin Rx. Continue DM2 on oral medications, reasonable control as of recent hemoglobin A1c of 7.1 last March 2023 HCV status post Rx Recent COVID-19 illness from 2 weeks ago, monitor respiratory symptoms. DVT prophylaxis. Heparin Full code Time spent evaluating patient, direct bedside care, chart review, placing orders, interpretation of diagnostic studies, discussion with consultants, patient, and family members, as well as other required patient management activities is 50 minutes Please note the above document was generated using voice recognition software. It may contain grammatical, syntax or spelling errors. Any formal questions or concerns about the content, text or information contained within the body of this dictation should be directly addressed to the provider for clarification Admission and Anticipated Discharge Date Admission Date: July 26, 2023 Subjective Patient seen in the ICU. She is mechanically ventilated. She opens her eyes spontaneously. On minimal vent setting and off sedation. Review of Systems Review of Systems: All systems reviewed & are unremarkable except as noted in Subjective Physical Exam Physical Exam: GENERAL: Mechanically ventilated. HEENT: No pallor, no icterus. Pupils equal, round and reactive to light. Bluish discoloration on the nose. NECK: No JVD, no neck masses. HEART: S1 and S2 heard. RRR. No murmur, no gallop. RESPIRATORY SYSTEM: Bilateral mechanical breath sound ABDOMEN: Soft,no distention. CENTRAL NERVOUS SYSTEM: No facial droop. EXTREMITIES: Bluish discoloration discoloration in both hands and legs. Results & Data Results & Data Vital Signs (Past 12 Hours) Vital Signs Temp Pulse Resp BP Pulse Ox O2 Del Method FiO2 08/01/23 09:15 37.5 C 94 H 17 94 08/01/23 09:15 177/102 H 08/01/23 09:00 175/81 H 08/01/23 09:00 37.3 C 95 H 19 92 08/01/23 08:45 161/86 H 08/01/23 08:45 37.6 C H 83 18 93 08/01/23 08:30 37.5 C 101 H 17 96 08/01/23 08:30 144/120 H 08/01/23 08:15 37.5 C 93 H 21 92 08/01/23 08:15 158/74 H 08/01/23 08:00 161/91 H 08/01/23 08:00 37.3 C 85 21 97 08/01/23 08:00 Mechanical Vent 30 08/01/23 08:00 30 08/01/23 07:50 87 15 99 30 08/01/23 07:46 37.0 C 95 H 17 87 L 08/01/23 07:46 141/61 H 08/01/23 07:30 36.7 C 85 16 99 08/01/23 07:30 161/86 H 08/01/23 07:30 30 08/01/23 07:15 155/96 H 08/01/23 07:15 36.6 C 85 16 98 08/01/23 07:00 154/89 H 08/01/23 07:00 36.6 C 90 16 99 08/01/23 04:23 91 H 14 98 30 08/01/23 04:15 36.8 C 90 17 97 08/01/23 04:15 142/87 H 08/01/23 04:00 36.9 C 91 H 12 98 08/01/23 04:00 166/82 H 08/01/23 04:00 30 08/01/23 03:45 168/87 H 08/01/23 03:45 36.9 C 91 H 15 98 08/01/23 03:30 161/83 H 08/01/23 03:30 37.0 C 92 H 11 L 97 08/01/23 03:15 169/85 H 08/01/23 03:15 37.1 C 90 15 98 08/01/23 03:00 156/77 H 08/01/23 03:00 37.1 C 91 H 11 L 97 08/01/23 02:45 157/82 H 08/01/23 02:45 37.1 C 91 H 12 97 08/01/23 02:30 160/80 H 08/01/23 02:30 37.2 C 90 12 98 08/01/23 02:15 152/75 H 08/01/23 02:15 37.2 C 91 H 10 L 96 08/01/23 02:00 152/74 H 08/01/23 02:00 37.3 C 95 H 13 96 08/01/23 01:45 156/67 H 08/01/23 01:45 37.2 C 113 H 13 98 08/01/23 01:30 165/83 H 08/01/23 01:30 34.8 C L 97 H 14 98 08/01/23 01:15 153/77 H 08/01/23 01:15 37.3 C 92 H 10 L 97 08/01/23 01:00 158/75 H 08/01/23 01:00 37.4 C 108 H 12 96 08/01/23 00:47 101 H 08/01/23 00:45 145/76 H 08/01/23 00:45 37.5 C 107 H 12 96 08/01/23 00:30 169/66 H 08/01/23 00:30 37.5 C 108 H 15 98 08/01/23 00:15 145/86 H 08/01/23 00:15 37.5 C 102 H 13 95 08/01/23 00:00 37.6 C H 96 H 12 95 08/01/23 00:00 30 07/31/23 23:45 184/79 H 07/31/23 23:45 37.7 C H 114 H 15 99 07/31/23 23:30 37.6 C H 109 H 14 95 07/31/23 23:30 154/85 H 07/31/23 23:19 97 H 16 99 30 07/31/23 23:15 160/79 H 07/31/23 23:15 37.7 C H 101 H 14 96
[2023-08-01] MEDS: METOPROLOL TARTRATE 1 MG/ML VIAL IV STA (11:32)
[2023-08-01] MEDS: METOPROLOL TARTRATE 1 MG/ML VIAL IV ONE (11:33)
--- NOTE | 2023-08-01 11:48 | Electrocardiogram Report ---
Test Reason : Blood Pressure : / mmHG Vent. Rate : 113 BPM Atrial Rate : 339 BPM P-R Int : 000 ms QRS Dur : 064 ms QT Int : 298 ms P-R-T Axes : 258 046 253 degrees QTc Int : 408 ms Atrial flutter with variable A-V block Low voltage QRS Septal infarct (cited on or before 31-JUL-2023) Abnormal ECG When compared with ECG of 31-JUL-2023 07:27, Atrial flutter has replaced Atrial fibrillation ST now depressed in Inferior leads T wave inversion now evident in Inferior leads Confirmed by Cabrera Godfrey ([id number]) on 08/01/2023 11:47:48 AM Referred By: REFERRED SELF Confirmed By:Cabrera Godfrey
--- NOTE | 2023-08-01 12:42 | Cardiology Progress Note ---
Date of Service August 01, 2023 Assessment & Plan (1) Atrial fibrillation with rapid ventricular response: Plan: New onset AF in the setting of sepsis , hypotension, and concerns for thrombocytopenia and DIC. Concerns for GI blood loss earlier this stay , as well as lacunar infarct on CT. Hemoglobin 7.7, 08/01/2023, down from 8.1. Platelet count improving from a integrity consultant of 14,000-->91,000 * Pt now on low dose heparin infusion with platelet count improved. * BP high with recent extubation * Pt received metoprolol 5 mg x 1 IV this am. * Still not ready for oral mediations until swallowing assessed. * Proceed with labetalol 10 mg IV x 1. Admission and Anticipated Discharge Date Admission Date: July 26, 2023 Subjective Patient seen in cardiology follow-up of atrial fibrillation. Has remained in atrial fibrillation with overnight last night with rates for the most part around 100 bpm, at the time of my assessment 119 bpm. She was successfully extubated just before my arrival to the intensive care unit today, and her blood pressure has since trended high. She is awake and is following commands. Physical Exam Constitutional: + ill appearing Respiratory: Auscultation: + diminished lung sounds (decreased BS at the bases ) Cardiovascular: Rate/Rhythm: + tachycardic and + irregularly irregular Heart Sounds: no murmur Musculoskeletal: Findings of acrocyanosis of the distal upper and lower extremities Neurologic: follows commands Results & Data Vital Signs (Past 12 Hours) Vital Signs Temp Pulse Resp BP Pulse Ox O2 Del Method FiO2 08/01/23 12:00 179/103 H 08/01/23 12:00 93 H 21 96 08/01/23 11:47 93 H 175/98 H 08/01/23 11:45 175/98 H 08/01/23 11:45 93 H 18 97 08/01/23 11:32 114 H 191/84 H 08/01/23 11:31 120 H 22 96 08/01/23 11:31 191/84 H 08/01/23 11:30 114 H 21 96 08/01/23 11:15 183/106 H 08/01/23 11:15 93 H 18 94 08/01/23 11:00 184/101 H 08/01/23 11:00 96 H 19 95 08/01/23 10:45 97 H 23 94 08/01/23 10:45 173/99 H 08/01/23 10:30 187/99 H 08/01/23 10:30 97 H 19 97 08/01/23 10:15 175/102 H 08/01/23 10:15 97 H 20 97 08/01/23 10:10 105 H 98 08/01/23 10:00 164/100 H 08/01/23 10:00 37.6 C H 108 H 20 97 08/01/23 09:45 165/84 H 08/01/23 09:45 37.5 C 98 H 17 97 08/01/23 09:30 37.6 C H 93 H 20 99 08/01/23 09:30 165/101 H 08/01/23 09:15 37.5 C 94 H 17 94 08/01/23 09:15 177/102 H 08/01/23 09:00 175/81 H 08/01/23 09:00 37.3 C 95 H 19 92 08/01/23 08:45 161/86 H 08/01/23 08:45 37.6 C H 83 18 93 08/01/23 08:30 37.5 C 101 H 17 96 08/01/23 08:30 144/120 H 08/01/23 08:15 37.5 C 93 H 21 92 08/01/23 08:15 158/74 H 08/01/23 08:00 161/91 H 08/01/23 08:00 37.3 C 85 21 97 08/01/23 08:00 Mechanical Vent 30 08/01/23 08:00 30 08/01/23 07:50 87 15 99 30 08/01/23 07:46 37.0 C 95 H 17 87 L 08/01/23 07:46 141/61 H 08/01/23 07:30 36.7 C 85 16 99 08/01/23 07:30 161/86 H 08/01/23 07:30 30 08/01/23 07:15 155/96 H 08/01/23 07:15 36.6 C 85 16 98 08/01/23 07:00 154/89 H 08/01/23 07:00 36.6 C 90 16 99 08/01/23 04:23 91 H 14 98 30 08/01/23 04:15 36.8 C 90 17 97 08/01/23 04:15 142/87 H 08/01/23 04:00 36.9 C 91 H 12 98 08/01/23 04:00 166/82 H 08/01/23 04:00 30 08/01/23 03:45 168/87 H 08/01/23 03:45 36.9 C 91 H 15 98 08/01/23 03:30 161/83 H 08/01/23 03:30 37.0 C 92 H 11 L 97 08/01/23 03:15 169/85 H 08/01/23 03:15 37.1 C 90 15 98 08/01/23 03:00 156/77 H 08/01/23 03:00 37.1 C 91 H 11 L 97 08/01/23 02:45 157/82 H 08/01/23 02:45 37.1 C 91 H 12 97 08/01/23 02:30 160/80 H 08/01/23 02:30 37.2 C 90 12 98 08/01/23 02:15 152/75 H 08/01/23 02:15 37.2 C 91 H 10 L 96 08/01/23 02:00 152/74 H 08/01/23 02:00 37.3 C 95 H 13 96 08/01/23 01:45 156/67 H 08/01/23 01:45 37.2 C 113 H 13 98 08/01/23 01:30 165/83 H 08/01/23 01:30 34.8 C L 97 H 14 98 08/01/23 01:15 153/77 H 08/01/23 01:15 37.3 C 92 H 10 L 97 08/01/23 01:00 158/75 H 08/01/23 01:00 37.4 C 108 H 12 96 08/01/23 00:47 101 H 08/01/23 00:45 145/76 H 08/01/23 00:45 37.5 C 107 H 12 96
[2023-08-01] MEDS: LABETALOL HCL IV 5 MG/ML 20ML IV STA ×3 (12:48→21:12)
[2023-08-01] MEDS: lisinopril 10 MG TAB PO SCH (15:16)
[2023-08-01 17:41] LABS: ANTI-Xa, UFH(UnfractionatedHep 0.35 IU/ml (0.3-0.7)
[2023-08-01] MEDS: lisinopril 5 MG TAB PO STA (23:58)
[2023-08-02] MEDS ORDERED: Nursing to Pharmacy Communication SCH (03:15)
[2023-08-02] MEDS: METOPROLOL TARTRATE 1 MG/ML VIAL IV STA (05:21)
[2023-08-02 05:36] LABS: ANTI-Xa, UFH(UnfractionatedHep 0.34 IU/ml (0.3-0.7)
[2023-08-02 06:49] LABS: BUN Creatinine Ratio 31.1 (10-20); Calcium 7.3 mg/dl (8.6-10.3); Creatinine Clr Calc Pharmacy 76.2 ml/min; Est GFR (African American) 93.2 ml/min; Est GFR (Non-African American) 80.4 ml/min; Magnesium 1.7 mg/dl (1.7-2.4); Potassium 3.3 mmol/L (3.5-5.1)
[2023-08-02 06:50] LABS: Basophils # (auto) 0.05 K/uL (0.00-0.20); Basophils % (auto) 0.3 %; Hematocrit (blood only) 24.4 % (37.0-47.0); Hemoglobin 7.9 g/dl (12.0-16.0); Immature Granulocytes # (auto) 0.51 K/uL (0.01-0.20); Immature Granulocytes % (auto) 2.8 %; Lymphocytes # (auto) 1.01 K/uL (1.20-3.40); Lymphocytes % (auto) 5.5 %; Mean Corpuscular Hgb Conc 32.4 g/dL (32.0-36.0); Mean Corpuscular Volume 89.7 fL (80.0-100.0); Mean Platelet Volume 12.2 fL (9.4-12.4); Monocytes # (auto) 0.58 K/uL (0.11-0.59); Monocytes % (auto) 3.2 %; Neutrophils # (auto) 16.23 K/uL (1.40-6.50); Neutrophils % (auto) 88.2 %; Nucleated RBC # (auto) 0.05 K/uL (0.00-0.12); Nucleated RBC % (auto) 0.3 %; Platelet Count 144 K/uL (130-400); RDW Coefficient of Variation 14.2 % (11.5-14.5); Red Blood Count 2.72 M/uL (4.20-5.40); White Blood Count 18.38 K/ul (4.8-10.8)
[2023-08-02 07:32] LABS: RBC Morphology Unremarkable
--- NOTE | 2023-08-02 08:02 | Critical Care Progress Note ---
Date of Service August 02, 2023 Assessment & Plan (1) Septic shock: (2) Hydronephrosis due to obstruction of ureter: (3) Acute kidney injury: (4) HTN (hypertension): (5) Complicated urinary tract infection: (6) Elevated lactic acid level: Plan Reason Critically Ill: 73-year-old female presents to the ICU with septic shock following right ureteral stone with hydronephrosis, status post right ureteral stent. Now hypotensive requiring vasopressor support. 24-hour events: Extubated yesterday and doing well. Pending PT, OT, and speech therapy evaluations. Intermittent dosing of blood pressure medications. Recommendations: Neuro: Encephalopathy improved. Small stroke noted on MRI. Continue heparin and start antiplatelet agents once clinically stable. Will need rehab. Initiating PT and OT evaluations. Cardiac - History of septic shock - Resolved. 2D echo 07/26/2023: EF 50-55%, mild to moderate MR, RV normal in size and function. Echo showed a potential extracardiac shunt physiology. No obvious evidence of AVM on the CT of her chest. A. Fib transiently, now appears to be sinus rhythm. Continue heparin infusion. Continue metoprolol 25 mg p.o. every 6 hours. Patient is 13 L positive and will initiate diuresis. Follow kidney function Respiratory - Hypoxemic respiratory failure now resolved. Out of bed to chair as tolerated. Incentive spirometry. GI -speech therapy evaluation pending for today. Advance diet per speech therapy. RENAL/LYTES - Hypernatremia: Improved. Continue with 1/2 NS for now but can likely discontinue once the patient is taking adequate p.o. Replace potassium, calcium. Starting diuresis - Obstructive ureteral stone/hydronephrosisstatus post right ureteral stent placement via cystoscope. Management per urology. No evidence of perinephric abscess on imaging study. Will need outpatient urology follow-up ENDO - Glycemic control per protocol. HEME - Thrombocytopenia with anemia, resolved. Believed to be secondary to be DIC. No evidence of hemolysis. Will rapidly taper steroids to off ID - Urosepsis with Klebsiella bacteremia, pansensitive. Continue Rocephin for a total of 10 days in the setting of bacteremia. Skin - Digital cyanosis with necrosis. Suspect that the etiology was septic shock with bacteremia, COVID hypercoagulable state, and pressor use. Appears stable to improving. Complements did show a borderline low C3 but normal total complements. Cryoglobulins pending. Wound care management. May require surgical evaluation for potential amputation in the future. Will hold off until everything is demarcated --Prophylaxis VTE: Heparin gtt GI: Pantoprazole Lines: Right IJ, will ask for midline to be placed so central line can be discontinued prior to transfer out of the intensive care unit. If midlines and appropriate a PICC line can be placed Diet: FREIGHT SERVICE INSPECTOR to evaluate today Family will be updated at bedside once they are available Patient's critical care issues at this point time of resolved. She can transfer out of the intensive care unit. Will discuss with the hospitalist. Critical care services will sign off. Feel free to contact us with questions or concerns. Admission and Anticipated Discharge Date Admission Date: July 26, 2023 Subjective Patient seen and examined. EMR reviewed. Discussed with bedside critical care nurse and patient. Patient's been extubated. She is doing well clinically. She does have an appetite. She is pending speech evaluation later today. She denies any chest pain or palpitations. She denies any abdominal pain. Review of Systems Review of Systems: All systems reviewed & are unremarkable except as noted in Subjective Physical Exam Neck: trachea midline, no thyromegaly Respiratory: normal respiratory effort, lungs clear to auscultation Cardiovascular: RRR, no murmur, no edema Rate/Rhythm: regular rhythm; not tachycardic Heart Sounds: normal S1 and normal S2; no murmur Extremities: + edema Gastrointestinal (Abdomen): normal bowel sounds, soft, nontender, no hepatosplenomegaly Musculoskeletal: Acrocyanosis of the hands and feet noted. No progression based on demarcation and actually appears to be improved slightly in a few areas. She has minimal movement of the toes bilaterally. The tip of the nose remains about the same. Neurologic: Patient is awake. Mentation slightly slowed. No focal abnormalities Lymphatic: no cervical lymphadenopathy Results & Data Results & Data Vital Signs (Past 12 Hours) Vital Signs Temp Pulse Resp BP Pulse Ox O2 Del Method O2 Flow Rate 08/02/23 06:00 36.6 C 94 H 16 153/83 H 100 Nasal Cannula 1 08/02/23 06:00 94 H 154/82 H 08/02/23 05:30 94 H 16 154/82 H 100 08/02/23 05:21 94 H 157/79 H 08/02/23 05:00 36.6 C 94 H 19 154/79 H 100 Nasal Cannula 1 08/02/23 04:00 94 H 19 165/80 H 100 08/02/23 03:00 36.8 C 95 H 20 172/86 H 100 08/02/23 02:00 95 H 19 158/83 H 100 08/02/23 01:00 95 H 19 163/83 H 98 Nasal Cannula 2 08/02/23 00:00 96 H 20 157/82 H 100 08/01/23 23:13 96 H 08/01/23 23:00 37.1 C 95 H 18 185/85 H 98 Nasal Cannula 2 08/01/23 22:37 Nasal Cannula 2 08/01/23 22:00 37.1 C 96 H 19 182/94 H 100 Nasal Cannula 2 08/01/23 21:27 94 H 184/93 H 08/01/23 21:12 95 H 192/107 H 08/01/23 21:00 36.8 C 95 H 21 192/107 H 100 Nasal Cannula 2 08/01/23 20:00 36.7 C 94 H 21 185/93 H 100 Critical Care Results & Data Vital Signs (Past 12 Hours) Vital Signs Temp Pulse Resp BP Pulse Ox O2 Del Method O2 Flow Rate 08/02/23 06:00 36.6 C 94 H 16 153/83 H 100 Nasal Cannula 1 08/02/23 06:00 94 H 154/82 H 08/02/23 05:30 94 H 16 154/82 H 100 08/02/23 05:21 94 H 157/79 H 08/02/23 05:00 36.6 C 94 H 19 154/79 H 100 Nasal Cannula 1 08/02/23 04:00 94 H 19 165/80 H 100 08/02/23 03:00 36.8 C 95 H 20 172/86 H 100 08/02/23 02:00 95 H 19 158/83 H 100 08/02/23 01:00 95 H 19 163/83 H 98 Nasal Cannula 2 08/02/23 00:00 96 H 20 157/82 H 100 08/01/23 23:13 96 H 08/01/23 23:00 37.1 C 95 H 18 185/85 H 98 Nasal Cannula 2 08/01/23 22:37 Nasal Cannula 2 08/01/23 22:00 37.1 C 96 H 19 182/94 H 100 Nasal Cannula 2 08/01/23 21:27 94 H 184/93 H 08/01/23 21:12 95 H 192/107 H 08/01/23 21:00 36.8 C 95 H 21 192/107 H 100 Nasal Cannula 2 08/01/23 20:00 36.7 C 94 H 21 185/93 H 100 Lab & Micro Results (Past 24 Hours) RBC 2.72 M/uL (4.20-5.40) L 08/02/23 WBC 18.38 K/ul (4.8-10.8) H 08/02/23 Hgb 7.9 g/dl (12.0-16.0) L 08/02/23 Hct 24.4 % (37.0-47.0) L 08/02/23 MCV 89.7 fL (80.0-100.0) 08/02/23 MCH 29.0 pg (25.0-34.0) 08/02/23 MCHC 32.4 g/dL (32.0-36.0) 08/02/23 RDW Standard Deviation 46.0 fL (36.4-46.3) 08/02/23 RDW Coefficient of Variation 14.2 % (11.5-14.5) 08/02/23 Plt Count 144 K/uL (130-400) 08/02/23 MPV 12.2 fL (9.4-12.4) 08/02/23 Nucleated Red Blood Cells % (auto) 0.3 % 08/02 Nucleated RBC Absolute Count (auto) 0.05 K/uL (0.00-0.12) 0 08/02/23 Neutrophils (%) (Auto) 88.2 % 08/02/23 Lymphocytes (%) (Auto) 5.5 % 08/02/23 Monocytes # (Auto) 0.58 K/uL (0.11-0.59) 08/02/23 Eosinophils # (Auto) 0.00 K/uL (0.00-0.50) 08/02/23 Immature Granulocyte % (Auto) 2.8 % 08/02/23 Neutrophils # (Auto) 16.23 K/uL (1.40-6.50) H 08/02/23 Lymphocytes # (Auto) 1.01 K/uL (1.20-3.40) L 08/02/23 Monocytes # (Auto) 0.58 K/uL (0.11-0.59) 08/02/23 Eosinophils # (Auto) 0.00 K/uL (0.00-0.50) 08/02/23 Basophils # (Auto) 0.05 K/uL (0.00-0.20) 08/02/23 Immature Granulocyte # (Auto) 0.51 K/uL (0.01-0.20) H 08/02 Red Blood Cell Morphology Unremarkable 08/02/23 Na 144 mmol/L (136-145) 08/02/23 K 3.3 mmol/L (3.5-5.1) L 08/02/23 Cl 111 mmol/L (98-107) H 08/02/23 CO2 25 mmol/L (21-32) 08/02/23 Anion Gap 8 (3-11) 08/02/23 BUN 23 mg/dl (6-23) 08/02/23 Creatinine 0.74 mg/dl (0.6-1.2) 08/02/23 Estimated GFR ( Amer) 93.2 ml/min 08/02/23 Estimated GFR (Non-Af Amer) 80.4 ml/min 08/02/23 BUN/Creatinine Ratio 31.1 (10-20) H 08/02/23 Glu 158 mg/dl (70-99(Fasting)) H 08/02/23 Ca 7.3 mg/dl (8.6-10.3) L 08/02/23 Mg 1.7 mg/dl (1.7-2.4) 08/02/23 04:45 Calcium Level 7.3 mg/dl (8.6-10.3) L 08/02/23 04:45 Microbiology 07/27/23 22:27 Aerobic Blood Culture - Final Blood No growth in Aerobic bottle after 5 days. Anaerobic Blood Culture - Final No growth in Anaerobic bottle after 5 days. 07/27/23 22:27 Aerobic Blood Culture - Final Blood No growth in Aerobic bottle after 5 days. Anaerobic Blood Culture - Final No growth in Anaerobic bottle after 5 days. I & O Totals 24 Hours 08/01/23 08/02/23 08/03/23 06:59 06:59 06:59 Intake Total 2191.520 / 2191.520 2659.187 / 2659.187 50 / 50 Output Total 1145 / 1145 1186 / 1186 Balance 1046.520 / 5052.251 2331.187 / 1473.187 50 / 50 Cumulative 07/25/23 18:26 thru 08/02/23 07:35 Intake Total 13640.267 Output Total 62322 Balance 83067.267 RT Ventilator Mngmt (Last Documented) Ventilator Ordered Settings Ventilator Support Mode SIMV 08/01/23 08:00 Respiratory Rate 16 08/02/23 06:00 Ventilator Tidal Volume 300 08/01/23 08:00 Setting Minute Ventilation 6 08/01/23 07:50 Ventilator Positive Pressure 7 08/01/23 08:00 Support Setting Positive End Expiratory 5 08/01/23 08:00 Pressure Fraction of Inspired Oxygen 30 08/01/23 08:00 Peak Inspiratory Flow 37 07/30/23 19:50 Machine Comment SpO2 98% FiO2 decreased from 50% 07/28/23 22:16 to 40% Last [place] CONSERVATION SCIENCE OFFICER CCM made aware Ventilator - PT Measurements Respiratory Rate 16 Exhaled Tidal Volume 531 Minute Ventilation 6 Peak Inspiratory Airway 12 Pressure Plateau Pressure 14 Respiratory Cycle Inspiratory: 1:3.2 Expiratory Ratio Inspiratory Phase Time 0.9 End-Tidal CO2 27 Static Lung Compliance 40.67 Dynamic Lung Compliance 48.27 Normal Static Lung Compliance 48.00 Patient Measurements Comment Patient extubated at 1010 with IAN Smith at bedside. Patient extubated to 4L oxymask saturations 98%. Coding Level of Care Code 33659 SUB INP/OBS CARE 3/50MIN Diagnoses Septic shock A41.9; R65.21 Hydronephrosis due to obstruction of ureter N13.1 Acute kidney injury N17.9 HTN (hypertension) I10 Complicated urinary tract infection N39.0 Elevated lactic acid level R79.89
[2023-08-02] MEDS: methylPREDNISolone 40 MG in SYRINGE 0 ML IV SCH (08:43)
[2023-08-02] MEDS: FUROSEMIDE 40 MG/4 ML VIAL IV SCH ×2 (08:43→20:46)
--- NOTE | 2023-08-02 11:57 | Hospitalist Progress Note ---
Date of Service August 02, 2023 Assessment & Plan (1) Encephalopathy: Plan: 73-year-old lady with PMH of HTN, HLD, T2DM, HCV status posttreatment, anxiety/mood disorder was brought in with complaint of confusion for about 1 day duration. 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 She is being managed for the following: ADMITTING IMANGINGS: Admitting CXR with no acute finding. Admitting CT head with no acute finding. Admitting CTA head WNL. Admitting CTA neck with moderate left ICA stenosis and possible high risk/ulcerated plaque in this location. Admitting CTA chest with no PE. Admitting CTAP with mild right hydronephrosis, secondary to 2 into 5 mm stone in the mid ureter. Concern for right pyelonephritis. No perinephric abscess. C holelithiasis without acute cholecystitis. Complicated UTI Urolithiasis and obstructive uropathy Urosepsis Severe sepsis POA: Secondary to above. Respiratory rate/pulse rate/WBC elevated at presentation. Lactate and procalcitonin elevated at presentation. Septic shock: Patient's blood pressure did not improve despite aggressive fluid resuscitation, was transferred to ICU for pressor support requirement at admission. Likely metabolic encephalopathy: Secondary to above Gram-negative bacteremia: 07/25 blood culture positive for Klebsiella pneumoniae in 2 of 4 bottles. Repeat blood culture 07/27 no growth till date. Patient presented with using, about a week worth of right flank pain. Poor appetite and not feeling well. UA suggestive of UTI, admitting CTAP with renal stone and concern for right pyelonephritis Initially admitted in ICU, needed pressor support, s/p pressors 07/26 afternoon. 07/25 Bl Cx - K. Pneumoniae; 07/26 Urine Cx - K Pneumoniae 07/27 Bl Cx -no growth till date Urology evaluated, status post cystoscopy and right retrograde pyelogram/right ureteral stent placement 07/26/2023 Patient was started on cefepime 07/26, to ceftriaxone 07/27, d/w ID 07/28 - agreed w/ Rx. Continue. CTAP repeated 07/29 for concern of perinephric abscess, which was ruled out. Will need antibiotics for urosepsis for 10-14 days Acute metabolic encephalopathy- resolved Acute fever-resolved Thrombocytopenia- resolved Patient had developed acrocyanosis and nasal tip cyanosis overnight of 07/26- 07/27. Patient has been off of pressor support [vasopressin and Levophed] since 07/26 afternoon. 07/27 - Duplex arterial scan of UE and LE WNL. Venous Doppler BLE negative for DVT. Patient was started on heparin drip and Solu-Medrol for concern of cryoglobulinemia. 07/28 - acrocyanosis progressed. Discussed with various subspecialties including rheumatology/hematology/passenger service agent. Peripheral blood smear with no schistocytes. TTP HUS ruled out. DIC from sepsis versus ischemic necrosis from recent pressor use was contemplated as DD for acrocyanosis. Patient was transferred to ICU and was intubated due to tachypnea/shallow breathing. She also developed fever, and started on vancomycin/acyclovir/ampicillin on top of Rocephin in the line of encephalitis versus meningitis. Lumbar puncture was deferred due to dropping platelets. MRI brain was obtained which revealed punctate right occipital lobe lacunar infarct. ANAHI screen is negative. PF4 antibody negative --HIT ruled out. Again no schistocytes noted on peripheral smearTTP HUS ruled out Haptoglobin within normal limits Patient extubated on August Platelets improved as well. 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 Transfer out of the ICU Acrocyanosis Patient has placed discoloration in her both hands and legs as well as her nose. Suspicion of vasopressor induced ischemia. Will obtain input from orthopedic whether patient will benefit from debridement. New onset anemia Likely UGIB Prior hemoglobin level 13.9, admitting hemoglobin 11.1 Hemoccult positive melanotic stool noted at the ER GI evaluated 07/26, PPI drip changed to twice daily. Monitor H&H and transfuse as needed. Will likely need follow-up with GI as an outpatient. Anemia workup, transfuse PRBC if hemoglobin less than 7 Atrial fibrillation with RVR Demand ischemia Patient developed atrial fibrillation with RVR on July 30, 2023 Echocardiogram from 07/26 shows EF of 50 to 55% with mild concentric LVH. Evidence of late shunt suggesting extracardiac source Started on metoprolol 50 mg twice a day and heparin. Plan to transition over to Coumadin after confirmation that patient would not require any further surgical interventions. Right occipital lobe lacunar infarct: Head and neck imagings reviewed as above. 07/29 MRI w/ punctate right occipital lobe lacunar infarct. Neurology consultedContinue neurochecks. A1c 7.1; LDL 12. Acute kidney injury: Admitting creatinine of 1.6, past creatinine 0.89. Status post IV fluid, s/p pressor support. Likely prerenal secondary to septic shock. Improvement with IV hydration Other chronic medical conditions: Continue with/resume home meds as and when able. Hypertension, continue on lisinopril. hyperlipidemia, on statin Rx. Continue DM2 on oral medications, reasonable control as of recent hemoglobin A1c of 7.1 last March 2023 HCV status post Rx Recent COVID-19 illness from 2 weeks ago, monitor respiratory symptoms. DVT prophylaxis. Heparin Full code Discussed with patient's daughter Delores ([phone]) over the phone. Provided clinical updates and plan. Answered questions/queries. Time spent evaluating patient, direct bedside care, chart review, placing orders, interpretation of diagnostic studies, discussion with consultants, patient, and family members, as well as other required patient management activities is 55 minutes Please note the above document was generated using voice recognition software. It may contain grammatical, syntax or spelling errors. Any formal questions or concerns about the content, text or information contained within the body of this dictation should be directly addressed to the provider for clarification Admission and Anticipated Discharge Date Admission Date: July 26, 2023 Subjective Patient seen and examined at bedside. She is lying in the bed comfortably; not in distress. She is saturating well on room air. She denies pain or discomfort. Review of Systems Review of Systems: All systems reviewed & are unremarkable except as noted in Subjective Physical Exam Physical Exam: GENERAL: Mechanically ventilated. HEENT: No pallor, no icterus. Pupils equal, round and reactive to light. Bluish discoloration on the nose. NECK: No JVD, no neck masses. HEART: S1 and S2 heard. RRR. No murmur, no gallop. RESPIRATORY SYSTEM: Bilateral mechanical breath sound ABDOMEN: Soft,no distention. CENTRAL NERVOUS SYSTEM: No facial droop. EXTREMITIES: Bluish discoloration in both hands and legs. Pulses intact. Results & Data Results & Data Vital Signs (Past 12 Hours) Vital Signs Temp Pulse Resp BP Pulse Ox O2 Del Method O2 Flow Rate 08/02/23 09:30 96 H 18 99 08/02/23 09:30 171/93 H 02/02/24 09:00 175/91 H 08/02/23 09:00 95 H 18 98 08/02/23 08:30 96 H 18 85 L 08/02/23 08:30 172/96 H 08/02/23 08:00 176/90 H 08/02/23 08:00 95 H 19 100 08/02/23 08:00 Room Air 08/02/23 07:30 164/84 H 08/02/23 07:30 94 H 20 98 08/02/23 07:00 94 H 17 100 08/02/23 07:00 165/88 H 08/02/23 06:00 36.6 C 94 H 16 153/83 H 100 Nasal Cannula 1 08/02/23 06:00 94 H 154/82 H 08/02/23 05:30 94 H 16 154/82 H 100 08/02/23 05:21 94 H 157/79 H 08/02/23 05:00 36.6 C 94 H 19 154/79 H 100 Nasal Cannula 1 08/02/23 04:00 94 H 19 165/80 H 100 08/02/23 03:00 36.8 C 95 H 20 172/86 H 100 08/02/23 02:00 95 H 19 158/83 H 100 08/02/23 01:00 95 H 19 163/83 H 98 Nasal Cannula 2 08/02/23 00:00 96 H 20 157/82 H 100
[2023-08-02] MEDS: POTASSIUM CHLORIDE / WTR 10 MEQ/100 ML PLCT IV SCH (12:33)
--- NOTE | 2023-08-02 13:09 | Pharmacy Report ---
Pharmacy Glycemic Short Note 2 - Date of Service August 02, 2023 - Glycemic Short BSG Results (Last 24 hours): 08/01/23 08/02/23 08/02/23 16:57 00:04 04:45 Glucose 158 H POC Glucose 160 H 174 H 08/02/23 08/02/23 05:49 10:49 Glucose POC Glucose 154 H 167 H OUTPATIENT ANTIDIABETIC REGIMEN: * Metformin 1000 mg BIDM * A1c 7.1% 07/26/23 ASSESSMENT: 08/02: * BSGs 178-115-491-174 mg/dL yesterday with 15 units of lantus and 6 units of correctional * Methylprendisolone decreased to 40 mg daily this morning * Patient extubated on 08/01 and is now ordered a diet with lunch today= monitor current novolog parameters 07/31 * Insulin infusion has been running at 1.6 units/hr with BSGs in the 170s, discussed at rounds, plan to transition off of insulin infusion d/t difficulty with obtaining BSGs and stable glucoses. Transitioned with 12 units of insulin. * To begin Novolog ~ stress of 2 weight based dosing, patient is current NPO with tube feeds held.- Monitor for adjustments 07/30 * Ms. Kelly is a 73 yo admitted with severe sepsis/septic shock from Kleb. pneumoniae bacteremia from urinary source. Patients course has been complicated, intubated 07/28 with encephalopathy. MRI with stroke. Currently being treated with empiric antibiotics for possible meningitis that has been unable to be r/o. * Patient had downtrending platelets, DIC, HIT unlikely but further testing pending, all anticoagulation currently being held (received ~ 18 hours of argatroban 07/29-07/30 AM) * BSGs became elevated overnight on the and an insulin infusion initiated the morning of the . * Will continue with insulin infusion at this time given many moving parts, patient remains intubated, intermittently on pressors- currently off. On trophic feeds that may be held if able to extubate later today/tomorrow. Remains on methylpred 40 mg q12H IV. PLAN FOR INPATIENT GLYCEMIC CONTROL: * Hold outpatient oral diabetes medications * Lantus 15 units qAM * Novolog q6H while NPO * --Goal BSG Range: Low 110 mg/dL, High 140mg/dL --Correction Factor: 20 mg/dL/unit --Carbohydrate ratio = 12 g/unit
[2023-08-02] MEDS: POTASSIUM CHLORIDE CRTAB 20 MEQ TABCR PO STA (13:16)
[2023-08-02] MEDS: DIGOXIN 0.125 MG TAB PO ONE (13:16)
--- NOTE | 2023-08-02 14:03 | Cardiology Progress Note ---
Date of Service August 02, 2023 Assessment & Plan (1) Atrial fibrillation with rapid ventricular response: Plan: New onset AF on 07/31/23 in the setting of sepsis , hypotension, and concerns for thrombocytopenia and DIC. Concerns for GI blood loss earlier this stay , as well as lacunar infarct on CT. Hemoglobin 7.9, on 08/02/23. Platelet count improving from a cathode builder of 14,000-->91,000-->144 K on 08/02/23. * Pt now on low dose heparin infusion with platelet count improved. * Atrial fibrillation in the 130s have persisted through most of today, at the time of my assessment, patient received a dose of oral digoxin 0.25 mg, along with her previously administered metoprolol succinate 50 twice daily. Potassium supplemented, there is an abrupt change in her rate from the 130s to the 80s post digoxin. * Continue metoprolol. Digoxin 0.125 mg daily to start 08/03 (2) HTN (hypertension): Plan: * Blood pressure elevated postextubation, improved on outpatient tamsulosin, lisinopril, metoprolol. * Patient received a dose of IV furosemide 40 mg a.m. of 08/02/2023 with 2.8 L of urine output noted subsequently. Agree with ongoing IV diuretic therapy. Admission and Anticipated Discharge Date Admission Date: July 26, 2023 Subjective Patient seen in follow up of HTN and atrial fibrillation with RVR. Extubated on 08/01. Able to swallow and is tolerating oral medications. BP improved. Physical Exam Constitutional: + ill appearing Respiratory: Auscultation: + diminished lung sounds (decreased BS at the bases ) Cardiovascular: Rate/Rhythm: + tachycardic and + irregularly irregular Heart Sounds: no murmur Gastrointestinal (Abdomen): normal bowel sounds, soft, nontender, no hepatosplenomegaly Musculoskeletal: Peripheral changes of acrocyanosis noted on the distal extremities, hands and feet Neurologic: Follows commands, conversant, still has some difficulty with recognizing some of her family Results & Data Vital Signs (Past 12 Hours) Vital Signs Temp Pulse Resp BP Pulse Ox O2 Del Method O2 Flow Rate 08/02/23 13:16 138 H 08/02/23 12:38 137 H 19 87 L 08/02/23 12:38 144/68 H 08/02/23 12:01 147 H 20 97 08/02/23 12:01 111/64 08/02/23 12:00 139 H 19 92 08/02/23 11:52 159 H 22 98 08/02/23 11:52 129/93 08/02/23 11:00 67 19 92 08/02/23 10:00 179/91 H 08/02/23 10:00 96 H 17 98 08/02/23 09:30 96 H 18 99 08/02/23 09:30 171/93 H 08/02/23 09:00 175/91 H 08/02/23 09:00 95 H 18 98 08/02/23 08:30 96 H 18 85 L 08/02/23 08:30 172/96 H 08/02/23 08:00 176/90 H 08/02/23 08:00 95 H 19 100 08/02/23 08:00 Room Air 08/02/23 07:30 164/84 H 08/02/23 07:30 94 H 20 98 08/02/23 07:00 94 H 17 100 08/02/23 07:00 165/88 H 08/02/23 06:00 36.6 C 94 H 16 153/83 H 100 Nasal Cannula 1 08/02/23 06:00 94 H 154/82 H 08/02/23 05:30 94 H 16 154/82 H 100 08/02/23 05:21 94 H 157/79 H 08/02/23 05:00 36.6 C 94 H 19 154/79 H 100 Nasal Cannula 1 08/02/23 04:00 94 H 19 165/80 H 100 08/02/23 03:00 36.8 C 95 H 20 172/86 H 100 08/02/23 02:00 95 H 19 158/83 H 100 Laboratory Results CBC 08/02/23 Range/Units 04:45 WBC 18.38 H (4.8-10.8) K/ul RBC 2.72 L (4.20-5.40) M/uL Hgb 7.9 L (12.0-16.0) g/dl Hct 24.4 L (37.0-47.0) % Plt Count 144 D (130-400) K/uL Neut # (Auto) 16.23 H (1.40-6.50) K/uL Lymph # (Auto) 1.01 L (1.20-3.40) K/uL Gonzales # (Auto) 0.58 (0.11-0.59) K/uL Eos # (Auto) 0.00 (0.00-0.50) K/uL Baso # (Auto) 0.05 (0.00-0.20) K/uL Comprehensive Metabolic Panel 08/02/23 Range/Units 04:45 Sodium 144 (136-145) mmol/L Potassium 3.3 L (3.5-5.1) mmol/L Chloride 111 H (98-107) mmol/L Carbon Dioxide 25 (21-32) mmol/L BUN 23 (6-23) mg/dl Creatinine 0.74 (0.6-1.2) mg/dl Glucose 158 H (70-99(Fasting)) mg/dl Calcium 7.3 L (8.6-10.3) mg/dl Intake and Output 08/01/23 08/02/23 08/02/23 22:59 06:59 14:59 Intake Total 143.367 / 2659.187 1194.367 / 2659.187 1800.184 / 1800.184 Output Total 501 / 1186 385 / 1186 2901 / 2901 Balance -357.633 / 1473.187 809.367 / 1473.187 -1100.816 / -1100.816 Intake: IV 143.367 / 2229.187 1194.367 / 2229.187 1250.184 / 1250.184 Heparin Sodium/Dextrose 25,000 143.367 / 337.734 194.367 / 337.734 102.85 / 102.85 units In 500 ml @ 850 UNITS/HR 17 mls/hr IV .Q24H [facility] Rx#: [id number] Potassium Chloride / Wtr 10 meq 86.667 / 86.667 In 100 ml @ 100 mls/hr IV Q1H [facility] Rx#:[id number] Sodium Chloride 0.45 % 1,000 ml 1000 / 1884 1010.667 / 1010.667 @ 80 mls/hr IV .[id number] [facility] Rx #:[id number] cefTRIAXone SODIUM 2,000 mg In 50 / 50 Dextrose 5 % Mini-B 50 ml @ 100 mls/hr IV Q24H [facility] Rx#: [id number] propofoL 1,000 mg In 100 ml @ 0 0 / 0 MCG/KG/MIN IV .Q0M [facility] Rx#: [id number] Oral 550 / 550 Output: Urine Amount (Catheter) 500 / 1185 385 / 1185 2900 / 2900 Joshi/Indwelling 500 / 1185 385 / 1185 2900 / 2900 # Bowel Movements Other: Other Intake Source npo npo Weight 89.3 kg 89.3 kg Weight Measurement Method Built in [facility] Patient Weight 08/03/23 06:59 Weight 89.3 kg
--- NOTE | 2023-08-02 15:19 | Orthopedic Consultation ---
Date of Consultation August 02, 2023 Assessment & Plan (1) Gangrene: Plan He does exhibit bilateral upper and lower extremity gangrene. I do not see evidence of infection currently. Gangrene is likely due to use of pressors, hypercoagulable state due to COVID, as well as sepsis. At this point in time the gangrene is not well-demarcated as she is still recovering. I would not recommend amputations at this point in time. We will allow to fully demarcate to determine what requires amputation and what can be salvaged. Orthopedics will follow intermittently. Will additionally delay surgical treatment to allow her to become more stable. History of Present Illness Reason for Consultation: Acral cyanosis and gangrene bilateral hands and feet Requesting Physician: Dr. Camacho Attending Physician: Miky Peres MD History of Present Illness This female currently admitted to the intensive care unit with sepsis and COVID hypercoagulable state. She presents with progressive ischemia to her digits. Orthopedics is consulted for management of gangrene. Allergies Allergy/AdvReac Type Severity Reaction Status Date / Time No Known Allergies Allergy Verified 07/25/23 19:50 Home Medications Medication Instructions Recorded Confirmed Type lisinopril 10 mg tablet 10 mg PO QAM 11/14/20 07/25/23 History atorvastatin 40 mg tablet 40 mg PO QAM 07/25/23 07/25/23 History calcium carbonate 1,000 mg-vitamin 1 tab PO DAILY 07/25/23 07/25/23 History D3 20 mcg (800 unit) tablet cyanocobalamin (vitamin B-12) 1,000 mcg PO QAM 07/25/23 07/25/23 History 1,000 mcg tablet ibandronate 150 mg tablet 150 mg PO .EVERY 30 DAYS 07/25/23 07/25/23 History metformin 1,000 mg tablet 1,000 mg PO BIDWMEAL 07/25/23 07/25/23 History venlafaxine 150 mg 150 mg PO DAILY 07/25/23 07/25/23 History capsule,extended release 24 hr Patient History Medical History Fever 41 degrees C or over Acute encephalopathy History of COVID-19 History of colon polyps Anxiety HTN (hypertension) Surgical History S/P wrist surgery History of colonoscopy History of hysterectomy History of tonsillectomy Family History Grandmother Family history of diabetes mellitus Family history of colon cancer Grandfather Family history of colon cancer Aunt Family history of colon cancer Uncle Family history of colon cancer Social History Smoking Status: Current some day smoker Tobacco Type: Cigarettes Second Hand Exposure: No; Do You Dip or Chew Tobacco: No; Hx Alcohol Use: No Hx Substance Use: No Preferred Language: Romanian Communication Ability: Effective 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 She exhibits evidence of dry gangrene. No evidence of wet gangrene and, and no evidence of infection. Left thumb shows gross gangrene at the tip. Lower extremity exam: She likewise exhibits acral cyanosis of the feet. She has evidence of dry gangrene of the tips of the toes. Results & Data Vital Signs (Past 12 Hours) Vital Signs Temp Pulse Resp BP Pulse Ox O2 Del Method O2 Flow Rate 08/02/23 14:30 134 H 20 138/77 96 08/02/23 14:00 72 23 96 08/02/23 14:00 136/58 L 08/02/23 13:30 78 23 92 08/02/23 13:16 138 H 08/02/23 13:01 136/60 08/02/23 13:01 137 H 21 92 08/02/23 13:00 130 H 29 H 87 L 08/02/23 12:38 137 H 19 87 L 08/02/23 12:38 144/68 H 08/02/23 12:01 147 H 20 97 08/02/23 12:01 111/64 08/02/23 12:00 139 H 19 92 08/02/23 11:52 159 H 22 98 08/02/23 11:52 129/93 08/02/23 11:00 67 19 92 08/02/23 10:00 179/91 H 08/02/23 10:00 96 H 17 98 08/02/23 09:30 96 H 18 99 08/02/23 09:30 171/93 H 08/02/23 09:00 175/91 H 08/02/23 09:00 95 H 18 98 08/02/23 08:30 96 H 18 85 L 08/02/23 08:30 172/96 H 08/02/23 08:00 176/90 H 08/02/23 08:00 95 H 19 100 08/02/23 08:00 Room Air 08/02/23 07:30 164/84 H 08/02/23 07:30 94 H 20 98 08/02/23 07:00 94 H 17 100 08/02/23 07:00 165/88 H 08/02/23 06:00 36.6 C 94 H 16 153/83 H 100 Nasal Cannula 1 08/02/23 06:00 94 H 154/82 H 08/02/23 05:30 94 H 16 154/82 H 100 08/02/23 05:21 94 H 157/79 H 08/02/23 05:00 36.6 C 94 H 19 154/79 H 100 Nasal Cannula 1 08/02/23 04:00 94 H 19 165/80 H 100
[2023-08-02] MEDS: INSULIN ASPART PER UNIT CHARGE SC SCH (16:39)
[2023-08-02] MEDS ORDERED: STAT IV Infusion **Titration per Protocol STA (17:26)
[2023-08-02] MEDS: dilTIAZem HCl 5 MG/ML 5 ML VIAL IV STA (17:46)
[2023-08-02] MEDS: dilTIAZem HCL 125 MG in DEXTROSE 5% 100 ML IV SCH (17:46)
[2023-08-02] MEDS: METOPROLOL SUCC 50MG EXT REL TAB PO SCH (20:46)
--- NOTE | 2023-08-02 21:42 | Hematology/Oncology Prog Note ---
Date of Service August 02, 2023 Assessment & Plan (1) Thrombocytopenia: Plan: Resolved, platelet count is back to normal. Platelet count is 144,000 today. At this point the underlying inciting factors seem to have receded. Again my chief diagnostic consideration is that the patient was dealing with disseminated intravascular coagulation. Transfuse as needed. Currently on heparin infusion. At this point we have ruled out TTP/HUS as an ADAMTS level was borderline low and the patient did not have any schistocytes. The patient does not have heparin-induced thrombocytopenia as an TPF antibody titer was low. DIC remains the diagnosis of choice and the patient has recovered with supportive care. Plan Hematology will continue to follow the patient and make appropriate recommendations. Rest of the care per ICU team and hospital internal medicine colleagues. Admission and Anticipated Discharge Date Admission Date: July 26, 2023 Subjective Patient awake, extubated. She was eating in the hospital bed. Results & Data Vital Signs (Past 12 Hours) Vital Signs Temp Pulse Resp BP Pulse Ox 08/02/23 18:30 95 H 20 100 08/02/23 18:30 132/57 L 08/02/23 18:15 95 H 22 100 08/02/23 18:15 133/59 L 08/02/23 18:00 135/55 L 08/02/23 18:00 95 H 22 99 08/02/23 17:55 96 H 22 98 08/02/23 17:55 131/60 08/02/23 17:50 66 20 86 L 08/02/23 17:50 123/57 L 08/02/23 17:45 129/51 L 08/02/23 17:45 74 25 H 86 L 08/02/23 17:44 116/50 L 08/02/23 17:44 96 H 23 99 08/02/23 17:30 146 H 24 92 08/02/23 17:15 146 H 20 83 L 08/02/23 17:00 147/61 H 08/02/23 17:00 81 24 93 08/02/23 16:45 76 21 99 08/02/23 16:30 62 18 100 08/02/23 16:15 62 23 100 08/02/23 16:00 123/58 L 08/02/23 16:00 62 22 100 08/02/23 15:32 36.8 C 08/02/23 15:00 147/61 H 08/02/23 15:00 123 H 19 88 L 08/02/23 14:41 138/77 08/02/23 14:41 138 H 23 97 08/02/23 14:30 134 H 20 138/77 96 08/02/23 14:00 72 23 96 08/02/23 14:00 136/58 L 08/02/23 13:30 78 23 92 08/02/23 13:16 138 H 08/02/23 13:01 136/60 08/02/23 13:01 137 H 21 92 08/02/23 13:00 130 H 29 H 87 L 08/02/23 12:38 137 H 19 87 L 08/02/23 12:38 144/68 H 08/02/23 12:01 147 H 20 97 08/02/23 12:01 111/64 08/02/23 12:00 139 H 19 92 08/02/23 11:52 159 H 22 98 08/02/23 11:52 129/93 08/02/23 11:00 67 19 92 08/02/23 10:00 179/91 H 08/02/23 10:00 96 H 17 98
[2023-08-03 04:49] LABS: Basophils # (auto) 0.03 K/uL (0.00-0.20); Basophils % (auto) 0.2 %; Eosinophils # (auto) 0.01 K/uL (0.00-0.50); Eosinophils % (auto) 0.1 %; Hematocrit (blood only) 23.5 % (37.0-47.0); Hemoglobin 7.8 g/dl (12.0-16.0); Immature Granulocytes # (auto) 0.38 K/uL (0.01-0.20); Immature Granulocytes % (auto) 2.6 %; Lymphocytes % (auto) 8.8 %; Mean Corpuscular Hemoglobin 29.1 pg (25.0-34.0); Mean Corpuscular Hgb Conc 33.2 g/dL (32.0-36.0); Mean Corpuscular Volume 87.7 fL (80.0-100.0); Mean Platelet Volume 11.7 fL (9.4-12.4); Monocytes # (auto) 0.66 K/uL (0.11-0.59); Monocytes % (auto) 4.5 %; Neutrophils # (auto) 12.45 K/uL (1.40-6.50); Neutrophils % (auto) 83.8 %; Nucleated RBC # (auto) 0.05 K/uL (0.00-0.12); Nucleated RBC % (auto) 0.3 %; Platelet Count 190 K/uL (130-400); RDW Coefficient of Variation 14.2 % (11.5-14.5); RDW Standard Deviation 44.5 fL (36.4-46.3); Red Blood Count 2.68 M/uL (4.20-5.40); White Blood Count 14.83 K/ul (4.8-10.8)
[2023-08-03 05:05] LABS: Calcium 7.1 mg/dl (8.6-10.3); Creatinine Clr Calc Pharmacy 67.1 ml/min; Est GFR (African American) 79.9 ml/min; Magnesium 1.4 mg/dl (1.7-2.4)
[2023-08-03 05:28] LABS: Polychromasia 1+; Toxic Granulation 1+
[2023-08-03 05:29] LABS: ANTI-Xa, UFH(UnfractionatedHep 0.24 IU/ml (0.3-0.7)
[2023-08-03] MEDS: POTASSIUM CHLORIDE CRTAB 20 MEQ TABCR PO STA (05:39)
[2023-08-03] MEDS: MAGNESIUM SULFATE / D5W 1 GM/100 ML BAG IV SCH (05:40)
[2023-08-03] MEDS: POTASSIUM CHLORIDE / WTR 10 MEQ/100 ML PLCT IV SCH ×2 (05:45→08:27)
--- NOTE | 2023-08-03 11:28 | Hospitalist Progress Note ---
Date of Service August 03, 2023 Assessment & Plan (1) Encephalopathy: Plan: 73-year-old lady with PMH of HTN, HLD, T2DM, HCV status posttreatment, anxiety/mood disorder was brought in with complaint of confusion for about 1 day duration. 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 She is being managed for the following: ADMITTING IMANGINGS: Admitting CXR with no acute finding. Admitting CT head with no acute finding. Admitting CTA head WNL. Admitting CTA neck with moderate left ICA stenosis and possible high risk/ulcerated plaque in this location. Admitting CTA chest with no PE. Admitting CTAP with mild right hydronephrosis, secondary to 2 into 5 mm stone in the mid ureter. Concern for right pyelonephritis. No perinephric abscess. C holelithiasis without acute cholecystitis. Complicated UTI Urolithiasis and obstructive uropathy Urosepsis Severe sepsis POA: Secondary to above. Respiratory rate/pulse rate/WBC elevated at presentation. Lactate and procalcitonin elevated at presentation. Septic shock: Patient's blood pressure did not improve despite aggressive fluid resuscitation, was transferred to ICU for pressor support requirement at admission. Likely metabolic encephalopathy: Secondary to above Gram-negative bacteremia: 07/25 blood culture positive for Klebsiella pneumoniae in 2 of 4 bottles. Repeat blood culture 07/27 no growth till date. Patient presented with using, about a week worth of right flank pain. Poor appetite and not feeling well. UA suggestive of UTI, admitting CTAP with renal stone and concern for right pyelonephritis Initially admitted in ICU, needed pressor support, s/p pressors 07/26 afternoon. 07/25 Bl Cx - K. Pneumoniae; 07/26 Urine Cx - K Pneumoniae 07/27 Bl Cx -no growth till date Urology evaluated, status post cystoscopy and right retrograde pyelogram/right ureteral stent placement 07/26/2023 Patient was started on cefepime 07/26, to ceftriaxone 07/27, d/w ID 07/28 - agreed w/ Rx. Continue. CTAP repeated 07/29 for concern of perinephric abscess, which was ruled out. Will need antibiotics for urosepsis for 10-14 days Acute metabolic encephalopathy- resolved Acute fever-resolved Thrombocytopenia- resolved Patient had developed acrocyanosis and nasal tip cyanosis overnight of 07/26- 07/27. Patient has been off of pressor support [vasopressin and Levophed] since 07/26 afternoon. 07/27 - Duplex arterial scan of UE and LE WNL. Venous Doppler BLE negative for DVT. Patient was started on heparin drip and Solu-Medrol for concern of cryoglobulinemia. 07/28 - acrocyanosis progressed. Discussed with various subspecialties including rheumatology/hematology/billet shearer. Peripheral blood smear with no schistocytes. TTP HUS ruled out. DIC from sepsis versus ischemic necrosis from recent pressor use was contemplated as DD for acrocyanosis. Patient was transferred to ICU and was intubated due to tachypnea/shallow breathing. She also developed fever, and started on vancomycin/acyclovir/ampicillin on top of Rocephin in the line of encephalitis versus meningitis. Lumbar puncture was deferred due to dropping platelets. MRI brain was obtained which revealed punctate right occipital lobe lacunar infarct. ANAHI screen is negative. PF4 antibody negative --HIT ruled out. Again no schistocytes noted on peripheral smearTTP HUS ruled out Haptoglobin within normal limits Patient extubated on August Platelets improved as well. 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 Suspicion of vasopressor induced ischemia. Orthopedic consulted for possible debridement/surgical treatment. Seen by orthopedic on August 02, 2023; do not recommend amputation at this point in time. Allow for gangrene to fully demarcate to determine what requires amputation and what can be salvaged. Continue to monitor. New onset anemia Likely UGIB Prior hemoglobin level 13.9, admitting hemoglobin 11.1 Hemoccult positive melanotic stool noted at the ER GI evaluated 07/26, PPI drip changed to twice daily. Monitor H&H and transfuse as needed. Will likely need follow-up with GI as an outpatient. Anemia workup, transfuse PRBC if hemoglobin less than 7 Atrial fibrillation with RVR Demand ischemia Patient developed atrial fibrillation with RVR on July 30, 2023 Echocardiogram from 07/26 shows EF of 50 to 55% with mild concentric LVH. 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 Also started on Cardizem by cardiology on August 02, 2023. Plan to transition over to Coumadin after confirmation that patient would not require any further surgical interventions. Continue heparin for the meantime. Continue diuretics with 40 IV Lasix twice daily Right occipital lobe lacunar infarct: Head and neck imagings reviewed as above. 07/29 MRI w/ punctate right occipital lobe lacunar infarct. Neurology consultedContinue neurochecks. A1c 7.1; LDL 12. Acute kidney injury-resolved: Admitting creatinine of 1.6, past creatinine 0.89. Status post IV fluid, s/p pressor support. Likely prerenal secondary to septic shock. Improvement with IV hydration Other chronic medical conditions: Continue with/resume home meds as and when able. Hypertension, continue on lisinopril. hyperlipidemia, on statin Rx. Continue DM2 on oral medications, reasonable control as of recent hemoglobin A1c of 7.1 last March 2023 HCV status post Rx Recent COVID-19 illness from 2 weeks ago, monitor respiratory symptoms. DVT prophylaxis. Heparin Full code Discussed with patient's daughter Delores ([phone]) over the phone on 08/02/2023. Provided clinical updates and plan. Answered questions/queries. Time spent evaluating patient, direct bedside care, chart review, placing orders, interpretation of diagnostic studies, discussion with consultants, patient, and family members, as well as other required patient management activities is 55 minutes Please note the above document was generated using voice recognition software. It may contain grammatical, syntax or spelling errors. Any formal questions or concerns about the content, text or information contained within the body of this dictation should be directly addressed to the provider for clarification Admission and Anticipated Discharge Date Admission Date: July 26, 2023 Subjective Seen and examined at bedside. She is awake, oriented x 3. She denies any pain or discomfort. Afebrile overnight. Review of Systems Review of Systems: All systems reviewed & are unremarkable except as noted in Subjective Physical Exam Physical Exam: GENERAL: Awake, oriented x 3; not in any distress. HEENT: No pallor, no icterus. Pupils equal, round and reactive to light. Bluish discoloration on the nose. NECK: No JVD, no neck masses. HEART: S1 and S2 heard. RRR. No murmur, no gallop. RESPIRATORY SYSTEM: Bilateral vesicular breath sound. ABDOMEN: Soft,no distention. CENTRAL NERVOUS SYSTEM: No facial droop. EXTREMITIES: Bluish discoloration in both hands and legs. Results & Data Results & Data Vital Signs (Past 12 Hours) Vital Signs Temp Pulse Resp BP Pulse Ox O2 Del Method 08/03/23 10:52 Room Air 08/03/23 08:00 92 H 19 136/64 97 08/03/23 07:30 92 H 18 145/70 H 99 08/03/23 07:00 92 H 19 151/73 H 100 08/03/23 03:37 98 H 08/03/23 03:00 95 H 21 145/71 H 99 08/03/23 00:15 36.6 C 97 H 23 145/66 H 99 08/03/23 00:00 98 H 22 146/68 H 98
[2023-08-03 12:04] LABS: ANTI-Xa, UFH(UnfractionatedHep 0.31 IU/ml (0.3-0.7)
--- NOTE | 2023-08-03 12:59 | Cardiology Progress Note ---
Date of Service August 03, 2023 Assessment & Plan (1) Atrial fibrillation with rapid ventricular response: Plan: New onset AF on 07/31/23 in the setting of sepsis , hypotension, and concerns for thrombocytopenia and DIC. Concerns for GI blood loss earlier this stay , as well as lacunar infarct on CT. Hemoglobin 7.9, on 08/02/23. 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 (2) HTN (hypertension): Plan 73-year-old female admitted with acute septic shock lapsing into atrial fibrillation during acute illness. Initial issues notable including DIC necessary pressor support Now gradually recovering platelet counts returning to normal. Patient anticoagulated with IV heparin Remains in atrial fibrillation Plan: Continue metoprolol succinate at 50 mg twice per day. Add oral diltiazem 30 3 times daily and discontinue diltiazem drip. Future considerations unstable transition to oral anticoagulation with May consider upward titration of oral diltiazem and possible reduction of metoprolol given peripheral tissue ischemia Admission and Anticipated Discharge Date Admission Date: July 26, 2023 Subjective Patient seen and examined, chart, medications, telemetry reviewed Remains in atrial fibrillation with relatively controlled ventricular rate. No pauses or profound bradycardia Review of Systems Review of Systems: All systems reviewed & are unremarkable except as noted in Subjective Physical Exam Constitutional: + ill appearing and + mechanically venti lated Respiratory: Auscultation: + diminished lung sounds (decreased BS at the bases ) Cardiovascular: Rate/Rhythm: + tachycardic and + irregularly irregular Heart Sounds: no murmur Gastrointestinal (Abdomen): normal bowel sounds, soft, nontender, no hepatosplenomegaly Results & Data Vital Signs (Past 12 Hours) Vital Signs Temp Pulse Pulse Resp BP BP Pulse Ox 08/03/23 11:27 36.4 C L 94 H 20 137/72 93 08/03/23 10:52 08/03/23 08:00 92 H 19 136/64 97 08/03/23 07:30 92 H 18 145/70 H 99 08/03/23 07:00 92 H 19 151/73 H 100 08/03/23 03:37 98 H 08/03/23 03:00 95 H 21 145/71 H 99 O2 Del Method 08/03/23 11:27 Room Air 08/03/23 10:52 Room Air 08/03/23 08:00 08/03/23 07:30 08/03/23 07:00 08/03/23 03:37 08/03/23 03:00 Laboratory Results Laboratory Results - last 24 hr 07/30/23 08/02/23 08/02/23 07:36 15:28 20:59 WBC RBC Hgb Hct MCV MCH MCHC RDW Std Deviation RDW Coeff of Mary Plt Count MPV Immature Gran % (Auto) Neut % (Auto) Lymph % (Auto) [place] % (Auto) Eos % (Auto) Baso % (Auto) Neut # (Auto) Lymph # (Auto) [place] # (Auto) Eos # (Auto) Baso # (Auto) Immature Gran # (Auto) Absolute Nucleated RBC Nucleated RBC % (auto) Toxic Granulation Polychromasia Heparin Anti-Xa, Unfract vWF Cleav Pro [id number] 0.59 L Sodium Potassium Chloride Carbon Dioxide Anion Gap BUN Creatinine Est Cr Clr Drug Dosing Est GFR ( Amer) Est GFR (Non-Af Amer) BUN/Creatinine Ratio Glucose POC Glucose 232 H 196 H Calcium Magnesium Stl C. diff Tox B Gene 08/02/23 08/03/23 08/03/23 Unknown 04:20 07:35 WBC 14.83 H RBC 2.68 L Hgb 7.8 L Hct 23.5 L MCV 87.7 MCH 29.1 MCHC 33.2 RDW Std Deviation 44.5 RDW Coeff of Mary 14.2 Plt Count 190 MPV 11.7 Immature Gran % (Auto) 2.6 Neut % (Auto) 83.8 Lymph % (Auto) 8.8 [place] % (Auto) 4.5 Eos % (Auto) 0.1 Baso % (Auto) 0.2 Neut # (Auto) 12.45 H Lymph # (Auto) 1.30 [place] # (Auto) 0.66 H Eos # (Auto) 0.01 Baso # (Auto) 0.03 Immature Gran # (Auto) 0.38 H Absolute Nucleated RBC 0.05 Nucleated RBC % (auto) 0.3 Toxic Granulation 1+ Polychromasia 1+ Heparin Anti-Xa, Unfract 0.24 L vWF Cleav Pro [id number] Sodium 141 Potassium 3.0 L Chloride 106 Carbon Dioxide 29 Anion Gap 6 BUN 21 Creatinine 0.84 Est Cr Clr Drug Dosing 67.1 Est GFR ( Amer) 79.9 Est GFR (Non-Af Amer) 69.0 BUN/Creatinine Ratio 25.0 H Glucose 168 H POC Glucose 206 H Calcium 7.1 L Magnesium 1.4 L Stl C. diff Tox B Gene Negative Cdiff Gene 08/03/23 08/03/23 11:22 11:27 WBC RBC Hgb Hct MCV MCH MCHC RDW Std Deviation RDW Coeff of Mary Plt Count MPV Immature Gran % (Auto) Neut % (Auto) Lymph % (Auto) [place] % (Auto) Eos % (Auto) Baso % (Auto) Neut # (Auto) Lymph # (Auto) [place] # (Auto) Eos # (Auto) Baso # (Auto) Immature Gran # (Auto) Absolute Nucleated RBC Nucleated RBC % (auto) Toxic Granulation Polychromasia Heparin Anti-Xa, Unfract 0.31 vWF Cleav Pro [id number] Sodium Potassium Chloride Carbon Dioxide Anion Gap BUN Creatinine Est Cr Clr Drug Dosing Est GFR ( Amer) Est GFR (Non-Af Amer) BUN/Creatinine Ratio Glucose POC Glucose 218 H Calcium Magnesium Stl C. diff Tox B Gene
[2023-08-03] MEDS: dilTIAZem HCL 30 MG TAB PO SCH (14:25)
[2023-08-03] MEDS ORDERED: METOPROLOL SUCC 25MG EXT REL TAB PO SCH (17:00)
[2023-08-03] MEDS: DIGOXIN 0.125 MG TAB PO SCH (17:04)
[2023-08-03] MEDS: METOPROLOL SUCC 50MG EXT REL TAB PO SCH (17:04)
--- NOTE | 2023-08-03 21:47 | Electrocardiogram Report ---
Test Reason : Blood Pressure : / mmHG Vent. Rate : 141 BPM Atrial Rate : 214 BPM P-R Int : 000 ms QRS Dur : 078 ms QT Int : 272 ms P-R-T Axes : 000 057 180 degrees QTc Int : 416 ms Atrial fibrillation with rapid ventricular response Septal infarct (cited on or before 31-JUL-2023) Nonspecific ST abnormality Abnormal ECG When compared with ECG of 01-AUG-2023 01:28, ST now depressed in Anterolateral leads Confirmed by Jose R Kerns ([id number]) on 08/03/2023 9:47:07 PM Referred By: REFERRED SELF Confirmed By:Jose R Kerns
[2023-08-04 04:53] LABS: Basophils # (auto) 0.03 K/uL (0.00-0.20); Basophils % (auto) 0.1 %; Eosinophils # (auto) 0.01 K/uL (0.00-0.50); Hematocrit (blood only) 23.2 % (37.0-47.0); Immature Granulocytes # (auto) 0.41 K/uL (0.01-0.20); Lymphocytes # (auto) 1.27 K/uL (1.20-3.40); Lymphocytes % (auto) 6.2 %; Mean Corpuscular Hemoglobin 29.9 pg (25.0-34.0); Mean Corpuscular Hgb Conc 34.5 g/dL (32.0-36.0); Mean Corpuscular Volume 86.6 fL (80.0-100.0); Mean Platelet Volume 11.7 fL (9.4-12.4); Monocytes # (auto) 0.89 K/uL (0.11-0.59); Monocytes % (auto) 4.4 %; Neutrophils # (auto) 17.73 K/uL (1.40-6.50); Neutrophils % (auto) 87.3 %; Platelet Count 249 K/uL (130-400); RDW Standard Deviation 43.2 fL (36.4-46.3); Red Blood Count 2.68 M/uL (4.20-5.40); White Blood Count 20.34 K/ul (4.8-10.8)
[2023-08-04 05:09] LABS: Albumin Level 2.5 gm/dl (3.4-5.0); BUN Creatinine Ratio 27.5 (10-20); Bilirubin Direct 0.2 mg/dl (0-0.2); Bilirubin,Total 0.6 mg/dl (0.2-1.0); Calcium 7.4 mg/dl (8.6-10.3); Creatinine Clr Calc Pharmacy 79.3 ml/min; Est GFR (African American) 100.1 ml/min; Est GFR (Non-African American) 86.4 ml/min; Magnesium 1.5 mg/dl (1.7-2.4); Potassium 3.2 mmol/L (3.5-5.1)
[2023-08-04 05:17] LABS: ANTI-Xa, UFH(UnfractionatedHep 0.33 IU/ml (0.3-0.7)
[2023-08-04] MEDS: LANTUS PER UNIT CHARGE SC SCH (08:14)
[2023-08-04] MEDS: MAGNESIUM SULFATE / D5W 1 GM/100 ML BAG IV SCH (08:15)
[2023-08-04] MEDS: POTASSIUM CHLORIDE / WTR 10 MEQ/100 ML PLCT IV SCH (08:45)
--- NOTE | 2023-08-04 10:14 | Orthopedic Progress Note ---
Date of Service August 04, 2023 Assessment & Plan (1) Gangrene: Plan: At this point in time her gangrene is still demarcating. Will wait till demarcation is complete to consider surgical treatment. I do feel it is safe to do so given that at this point there is no active infection. Orthopedics will follow intermittently Admission and Anticipated Discharge Date Admission Date: July 26, 2023 Subjective She exhibits no new complaints in regard to her bilateral lower extremities Physical Exam Musculoskeletal: Upper extremity exam: She does exhibit progression of gangrene to the tips of all digits. Acrocyanosis is seen with swelling. No active infection. Lower extremity exam also shows progression of gangrene of the tips of the toes. Acrocyanosis and swelling is seen without evidence of active infection. Results & Data Vital Signs (Past 12 Hours) Vital Signs Temp Pulse Resp BP Pulse Ox O2 Del Method 08/04/23 09:00 94 H 20 97 Room Air 08/04/23 08:00 93 H 20 08/04/23 08:00 154/76 H 08/04/23 08:00 36.8 C 08/04/23 02:00 143/69 H 08/04/23 02:00 91 H 19 93 08/04/23 01:00 91 H 18 93 08/04/23 00:00 137/67 08/04/23 00:00 92 H 20 94 08/03/23 23:00 93 H 20 91
--- NOTE | 2023-08-04 11:32 | Hospitalist Progress Note ---
Date of Service August 04, 2023 Assessment & Plan (1) Encephalopathy: Plan: 73-year-old lady with PMH of HTN, HLD, T2DM, HCV status posttreatment, anxiety/mood disorder was brought in with complaint of confusion for about 1 day duration. 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 She is being managed for the following: ADMITTING IMANGINGS: Admitting CXR with no acute finding. Admitting CT head with no acute finding. Admitting CTA head WNL. Admitting CTA neck with moderate left ICA stenosis and possible high risk/ulcerated plaque in this location. Admitting CTA chest with no PE. Admitting CTAP with mild right hydronephrosis, secondary to 2 into 5 mm stone in the mid ureter. Concern for right pyelonephritis. No perinephric abscess. C holelithiasis without acute cholecystitis. Complicated UTI Urolithiasis and obstructive uropathy Urosepsis Severe sepsis POA: Secondary to above. Respiratory rate/pulse rate/WBC elevated at presentation. Lactate and procalcitonin elevated at presentation. Septic shock: Patient's blood pressure did not improve despite aggressive fluid resuscitation, was transferred to ICU for pressor support requirement at admission. Likely metabolic encephalopathy: Secondary to above Gram-negative bacteremia: 07/25 blood culture positive for Klebsiella pneumoniae in 2 of 4 bottles. Repeat blood culture 07/27 no growth till date. Patient presented with using, about a week of right flank pain, Poor appetite and not feeling well. UA suggestive of UTI, admitting CTAP with renal stone and concern for right pyelonephritis Initially admitted in ICU, needed pressor support, s/p pressors 07/26 afternoon. 07/25 Bl Cx - K. Pneumoniae; 07/26 Urine Cx - K Pneumoniae 07/27 Bl Cx -no growth till date Urology evaluated, status post cystoscopy and right retrograde pyelogram/right ureteral stent placement 07/26/2023 Patient was started on cefepime 07/26, to ceftriaxone 07/27, d/w ID 07/28 - agreed w/ Rx. Continue. CTAP repeated 07/29 for concern of perinephric abscess, which was ruled out. Will need antibiotics for urosepsis for 10-14 days. Currently on ceftriaxone. Acute metabolic encephalopathy- resolved Acute fever-resolved Thrombocytopenia- resolved Patient had developed acrocyanosis and nasal tip cyanosis overnight of 07/26- 07/27. Patient has been off of pressor support [vasopressin and Levophed] since 07/26 afternoon. 07/27 - Duplex arterial scan of UE and LE WNL. Venous Doppler BLE negative for DVT. Patient was started on heparin drip and Solu-Medrol for concern of cryoglobulinemia. 07/28 - acrocyanosis progressed. 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 Peripheral blood smear with no schistocytes. TTP HUS ruled out. DIC from sepsis versus ischemic necrosis from recent pressor use was contemplated as DD for acrocyanosis. Patient was transferred to ICU and was intubated due to tachypnea/shallow breathing. She also developed fever, and started on vancomycin/acyclovir/ampicillin on top of Rocephin in the line of encephalitis versus meningitis. Lumbar puncture was deferred due to dropping platelets. MRI brain was obtained which revealed punctate right occipital lobe lacunar infarct. ANAHI screen is negative. PF4 antibody negative --HIT ruled out. Again no schistocytes noted on peripheral smearTTP HUS ruled out Haptoglobin within normal limits Patient extubated on August Platelets improved as well. 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 Suspicion of vasopressor induced ischemia. Orthopedic consulted for possible debridement/surgical treatment. Seen by orthopedic on August 02, 2023; do not recommend amputation at this point in time. Allow for gangrene to fully demarcate to determine what requires amputation and what can be salvaged. Continue to monitor. New onset anemia Likely UGIB Prior hemoglobin level 13.9, admitting hemoglobin 11.1 Hemoccult positive melanotic stool noted at the ER GI evaluated 07/26, PPI drip changed to twice daily. Monitor H&H and transfuse as needed. Will likely need follow-up with GI as an outpatient. Anemia workup, transfuse PRBC if hemoglobin less than 7 Atrial fibrillation with RVR Demand ischemia Patient developed atrial fibrillation with RVR on July 30, 2023 Echocardiogram from 07/26 shows EF of 50 to 55% with mild concentric LVH. 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 Also started on Cardizem by cardiology on August 02, 2023. Plan to transition over to Coumadin after confirmation that patient would not require any further surgical interventions. Continue heparin for the meantime. Continue diuretics with 40 IV Lasix twice daily Right occipital lobe lacunar infarct: Head and neck imagings reviewed as above. 07/29 MRI w/ punctate right occipital lobe lacunar infarct. Neurology consultedContinue neurochecks. A1c 7.1; LDL 12. Acute kidney injury-resolved: Admitting creatinine of 1.6, past creatinine 0.89. Status post IV fluid, s/p pressor support. Likely prerenal secondary to septic shock. Improvement with IV hydration Other chronic medical conditions: Continue with/resume home meds as and when able. Hypertension, continue on lisinopril. hyperlipidemia, on statin Rx. Continue DM2 on oral medications, reasonable control as of recent hemoglobin A1c of 7.1 last March 2023 HCV status post Rx Recent COVID-19 illness from 2 weeks ago, monitor respiratory symptoms. DVT prophylaxis. Heparin Full code Discussed with patient's daughter Delores ([phone]) over the phone on 08/02/2023. Provided clinical updates and plan. Answered questions/queries. Time spent evaluating patient, direct bedside care, chart review, placing orders, interpretation of diagnostic studies, discussion with consultants, patient, and family members, as well as other required patient management activities is 50 minutes Please note the above document was generated using voice recognition software. It may contain grammatical, syntax or spelling errors. Any formal questions or concerns about the content, text or information contained within the body of this dictation should be directly addressed to the provider for clarification Admission and Anticipated Discharge Date Admission Date: July 26, 2023 Subjective Patient seen and examined at bedside. She is sitting up on the bed; not in distress. She denies any pain or discomfort. She is moving her all extremities. Review of Systems Review of Systems: All systems reviewed & are unremarkable except as noted in Subjective Physical Exam Physical Exam: GENERAL: Awake, oriented x 3; not in any distress. HEENT: No pallor, no icterus. Pupils equal, round and reactive to light. Bluish discoloration on the nose. NECK: No JVD, no neck masses. HEART: S1 and S2 heard. RRR. No murmur, no gallop. RESPIRATORY SYSTEM: Bilateral vesicular breath sound. ABDOMEN: Soft,no distention. CENTRAL NERVOUS SYSTEM: No facial droop. EXTREMITIES: Bluish discoloration in both hands and legs. Results & Data Results & Data Vital Signs (Past 12 Hours) Vital Signs Temp Pulse Resp BP Pulse Ox O2 Del Method 08/04/23 10:01 94 H 23 98 Room Air 08/04/23 10:01 116/57 L 08/04/23 10:00 93 H 23 97 08/04/23 09:00 94 H 20 97 Room Air 08/04/23 08:00 94 H 08/04/23 08:00 Room Air 08/04/23 08:00 93 H 20 08/04/23 08:00 154/76 H 08/04/23 08:00 36.8 C 08/04/23 02:00 143/69 H 08/04/23 02:00 91 H 19 93 08/04/23 01:00 91 H 18 93 08/04/23 00:00 137/67 08/04/23 00:00 92 H 20 94
--- NOTE | 2023-08-04 14:01 | Cardiology Progress Note ---
Date of Service August 04, 2023 Assessment & Plan (1) Atrial fibrillation with rapid ventricular response: Plan: New onset AF on 07/31/23 in the setting of sepsis , hypotension, and concerns for thrombocytopenia and DIC. Concerns for GI blood loss earlier this stay , as well as lacunar infarct on CT. Hemoglobin 7.9, on 08/02/23. Platelet count improving from a topographic computator of 14,000-->91,000-->144 K on 08/02/23. (2) HTN (hypertension): Plan 73-year-old female admitted with acute septic shock lapsing into atrial fibrillation during acute illness. Initial issues notable including DIC necessary pressor support Now gradually recovering platelet counts returning to normal. Patient anticoagulated with IV heparin Remains in atrial fibrillation, rate controlled with combination of metoprolol succinate and oral diltiazem Plan: Ultimately transition heparin to oral warfarin May consider decreasing or discontinuing beta-armando with upward titration of diltiazem for optimal vasodilatation Admission and Anticipated Discharge Date Admission Date: July 26, 2023 Subjective Patient seen and examined, chart, telemetry reviewed Heart rates controlled. No acute hemodynamic changes Oxygenating well on room air Remains in atrial fibrillation but controlled ventricular rates Review of Systems Review of Systems: All systems reviewed & are unremarkable except as noted in Subjective Physical Exam Constitutional: + ill appearing; no acute distress Neck: trachea midline, no thyromegaly Respiratory: Auscultation: + diminished lung sounds (decreased BS at the bases ) Cardiovascular: Rate/Rhythm: + irregularly irregular Heart Sounds: no murmur Gastrointestinal (Abdomen): normal bowel sounds, soft, nontender, no hepatos plenomegaly Results & Data Vital Signs (Past 12 Hours) Vital Signs Temp Pulse Resp BP Pulse Ox O2 Del Method 08/04/23 12:00 123/64 08/04/23 12:00 94 H 16 95 Room Air 08/04/23 12:00 37.3 C 08/04/23 11:00 94 H 20 98 08/04/23 10:01 94 H 23 98 Room Air 08/04/23 10:01 116/57 L 08/04/23 10:00 93 H 23 97 08/04/23 09:00 94 H 20 97 Room Air 08/04/23 08:00 94 H 08/04/23 08:00 Room Air 08/04/23 08:00 93 H 20 08/04/23 08:00 154/76 H 08/04/23 08:00 36.8 C Laboratory Results Laboratory Results - last 24 hr 08/03/23 08/03/23 08/04/23 16:23 20:10 04:24 WBC 20.34 H RBC 2.68 L Hgb 8.0 L Hct 23.2 L MCV 86.6 MCH 29.9 MCHC 34.5 RDW Std Deviation 43.2 RDW Coeff of Mary 14.0 Plt Count 249 MPV 11.7 Immature Gran % (Auto) 2.0 Neut % (Auto) 87.3 Lymph % (Auto) 6.2 Antelope % (Auto) 4.4 Eos % (Auto) 0.0 Baso % (Auto) 0.1 Neut # (Auto) 17.73 H Lymph # (Auto) 1.27 Antelope # (Auto) 0.89 H Eos # (Auto) 0.01 Baso # (Auto) 0.03 Immature Gran # (Auto) 0.41 H Heparin Anti-Xa, Unfract 0.33 Sodium 138 Potassium 3.2 L Chloride 102 Carbon Dioxide 28 Anion Gap 8 BUN 19 Creatinine 0.69 Est Cr Clr Drug Dosing 79.3 Est GFR ( Amer) 100.1 Est GFR (Non-Af Amer) 86.4 BUN/Creatinine Ratio 27.5 H Glucose 161 H POC Glucose 262 H 192 H Calcium 7.4 L Magnesium 1.5 L Total Bilirubin 0.6 Direct Bilirubin 0.2 AST 24 ALT 44 Alkaline Phosphatase 94 Total Protein 5.0 L Albumin 2.5 L 08/04/23 08/04/23 07:40 11:29 WBC RBC Hgb Hct MCV MCH MCHC RDW Std Deviation RDW Coeff of Mary Plt Count MPV Immature Gran % (Auto) Neut % (Auto) Lymph % (Auto) Antelope % (Auto) Eos % (Auto) Baso % (Auto) Neut # (Auto) Lymph # (Auto) [place] # (Auto) Eos # (Auto) Baso # (Auto) Immature Gran # (Auto) Heparin Anti-Xa, Unfract Sodium Potassium Chloride Carbon Dioxide Anion Gap BUN Creatinine Est Cr Clr Drug Dosing Est GFR ( Amer) Est GFR (Non-Af Amer) BUN/Creatinine Ratio Glucose POC Glucose 158 H 76 Calcium Magnesium Total Bilirubin Direct Bilirubin AST ALT Alkaline Phosphatase Total Protein Albumin
--- NOTE | 2023-08-04 14:58 | Pharmacy Report ---
Pharmacy Glycemic Short Note 2 - Date of Service August 04, 2023 - Glycemic Short BSG Results (Last 24 hours): 08/03/23 08/03/23 08/04/23 16:23 20:10 04:24 Glucose 161 H POC Glucose 262 H 192 H 08/04/23 08/04/23 07:40 11:29 Glucose POC Glucose 158 H 76 OUTPATIENT ANTIDIABETIC REGIMEN: * Metformin 1000 mg BIDM * A1c 7.1% 07/26/23 ASSESSMENT: 08/04 * Patient received total of 39 units of insulin yesterday, of which 15 units were basal * Fasting BSG 158 mg/dL - continued with Lantus 15 this AM * Steroids fell off this morning (didn't receive dose), BSGs trending down at lunch time therefore will remove CR for now to hopefully prevent hypoglycemia 08/02: * BSGs [phone] mg/dL yesterday with 15 units of lantus and 6 units of correctional * Methylprendisolone decreased to 40 mg daily this morning * Patient extubated on 08/01 and is now ordered a diet with lunch today= monitor current novolog parameters 07/31 * Insulin infusion has been running at 1.6 units/hr with BSGs in the 170s, discussed at rounds, plan to transition off of insulin infusion d/t difficulty with obtaining BSGs and stable glucoses. Transitioned with 12 units of insulin. * To begin Novolog ~ stress of 2 weight based dosing, patient is current NPO with tube feeds held.- Monitor for adjustments 07/30 * Ms. Kelly is a 73 yo admitted with severe sepsis/septic shock from Kleb. pneumoniae bacteremia from urinary source. Patients course has been complicated, intubated 07/28 with encephalopathy. MRI with stroke. Currently being treated with empiric antibiotics for possible meningitis that has been unable to be r/o. * Patient had downtrending platelets, DIC, HIT unlikely but further testing pending, all anticoagulation currently being held (received ~ 18 hours of argatroban 07/29-07/30 AM) * BSGs became elevated overnight on the and an insulin infusion initiated the morning of the . * Will continue with insulin infusion at this time given many moving parts, patient remains intubated, intermittently on pressors- currently off. On trophic feeds that may be held if able to extubate later today/tomorrow. Remains on methylpred 40 mg q12H IV. PLAN FOR INPATIENT GLYCEMIC CONTROL: * Hold outpatient oral diabetes medications * Lantus 15 units qAM / reassess basal 2/5 * Novolog q6H while NPO * --Goal BSG Range: Low 110 mg/dL, High 140mg/dL --Correction Factor: 30 mg/dL/unit --Carbohydrate ratio = -- g/unit
[2023-08-05 04:48] LABS: Basophils # (auto) 0.02 K/uL (0.00-0.20); Basophils % (auto) 0.1 %; Eosinophils # (auto) 0.02 K/uL (0.00-0.50); Eosinophils % (auto) 0.1 %; Hematocrit (blood only) 21.6 % (37.0-47.0); Hemoglobin 7.5 g/dl (12.0-16.0); Immature Granulocytes # (auto) 0.32 K/uL (0.01-0.20); Immature Granulocytes % (auto) 1.5 %; Lymphocytes # (auto) 1.07 K/uL (1.20-3.40); Lymphocytes % (auto) 5.1 %; Mean Corpuscular Hemoglobin 30.4 pg (25.0-34.0); Mean Corpuscular Hgb Conc 34.7 g/dL (32.0-36.0); Mean Corpuscular Volume 87.4 fL (80.0-100.0); Mean Platelet Volume 11.2 fL (9.4-12.4); Monocytes % (auto) 5.3 %; Neutrophils # (auto) 18.31 K/uL (1.40-6.50); Neutrophils % (auto) 87.9 %; Platelet Count 261 K/uL (130-400); RDW Coefficient of Variation 14.7 % (11.5-14.5); RDW Standard Deviation 44.7 fL (36.4-46.3); Red Blood Count 2.47 M/uL (4.20-5.40); White Blood Count 20.84 K/ul (4.8-10.8)
[2023-08-05 05:05] LABS: RBC Morphology Unremarkable
[2023-08-05 05:08] LABS: Albumin Level 2.3 gm/dl (3.4-5.0); BUN Creatinine Ratio 24.2 (10-20); Bilirubin Direct 0.2 mg/dl (0-0.2); Bilirubin,Total 0.7 mg/dl (0.2-1.0); Calcium 7.4 mg/dl (8.6-10.3); Creatinine Clr Calc Pharmacy 82.9 ml/min; Est GFR (African American) 101.6 ml/min; Est GFR (Non-African American) 87.6 ml/min; Magnesium 1.7 mg/dl (1.7-2.4); Potassium 2.9 mmol/L (3.5-5.1)
[2023-08-05 05:19] LABS: ANTI-Xa, UFH(UnfractionatedHep 0.24 IU/ml (0.3-0.7)
[2023-08-05] MEDS ORDERED: ENOXAPARIN 1 MG/KG SQ SCH (07:45)
[2023-08-05] MEDS: cefTRIAXone SODIUM 2,000 MG in DEXTROSE 5 % MINI-B 50 ML IV SCH (07:59)
[2023-08-05] MEDS: POTASSIUM CHLORIDE CRTAB 20 MEQ TABCR PO STA (08:01)
[2023-08-05] MEDS: POTASSIUM CHLORIDE / WTR 10 MEQ/100 ML PLCT IV SCH (08:02)
[2023-08-05] MEDS: ENOXAPARIN 80 MG/0.8 ML SYR SQ SCH (08:37)
[2023-08-05] MEDS: PANTOprazole 40 MG TAB PO SCH (09:00)
--- NOTE | 2023-08-05 11:09 | Pharmacy Report ---
Pharmacy Glycemic Short Note 2 - Date of Service August 05, 2023 - Glycemic Short BSG Results (Last 24 hours): 08/04/23 08/04/23 08/04/23 11:29 15:45 15:48 Glucose POC Glucose 76 317 H* 310 H* 08/04/23 08/04/23 08/05/23 15:50 20:18 04:24 Glucose 161 H POC Glucose 307 H* 236 H 08/05/23 08/05/23 07:24 10:59 Glucose POC Glucose 171 H 185 H OUTPATIENT ANTIDIABETIC REGIMEN: * Metformin 1000 mg BIDM * A1c 7.1% 07/26/23 ASSESSMENT: 08/05 * 26 units SQ administered over last 24 hours * BSGs erratic yesterday, possibly due to lack of Novolog with lunch and dinner; as well as the wearing off of steroid effects * Will resume a less dose of basal insulin this AM as fasting BSG elevated with 15 units basal on board. No steroid given in last 24 hrs. Patient was well controlled on metformin monotherapy prior to admission. * Will add carb ratio again today in lesser dose given lack of steroid 08/04 * Patient received total of 39 units of insulin yesterday, of which 15 units were basal * Fasting BSG 158 mg/dL - continued with Lantus 15 this AM * Steroids fell off this morning (didn't receive dose), BSGs trending down at lunch time therefore will remove CR for now to hopefully prevent hypoglycemia /: * BSGs [phone] mg/dL yesterday with 15 units of lantus and 6 units of correctional * Methylprendisolone decreased to 40 mg daily this morning * Patient extubated on 08/01 and is now ordered a diet with lunch today= monitor current novolog parameters PLAN FOR INPATIENT GLYCEMIC CONTROL: * Hold outpatient oral diabetes medications (metformin) * Lantus 10 units qAM * Novolog ACHS or Q 6 hrs if NPO * --Goal BSG Range: Low 120 mg/dL, High 160mg/dL --Correction Factor: 30 mg/dL/unit --Carbohydrate ratio = 12 g/unit
[2023-08-05] MEDS: LANTUS PER UNIT CHARGE SC SCH (12:06)
--- NOTE | 2023-08-05 13:27 | Hospitalist Progress Note ---
Date of Service August 05, 2023 Assessment & Plan (1) Encephalopathy: Plan: 73-year-old lady with PMH of HTN, HLD, T2DM, HCV status posttreatment, anxiety/mood disorder was brought in with complaint of confusion for about 1 day duration. 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 She is being managed for the following: ADMITTING IMANGINGS: Admitting CXR with no acute finding. Admitting CT head with no acute finding. Admitting CTA head WNL. Admitting CTA neck with moderate left ICA stenosis and possible high risk/ulcerated plaque in this location. Admitting CTA chest with no PE. Admitting CTAP with mild right hydronephrosis, secondary to 2 into 5 mm stone in the mid ureter. Concern for right pyelonephritis. No perinephric abscess. C holelithiasis without acute cholecystitis. Complicated UTI Urolithiasis and obstructive uropathy Urosepsis Severe sepsis POA: Secondary to above. Respiratory rate/pulse rate/WBC elevated at presentation. Lactate and procalcitonin elevated at presentation. Septic shock: Patient's blood pressure did not improve despite aggressive fluid resuscitation, was transferred to ICU for pressor support requirement at admission. Likely metabolic encephalopathy: Secondary to above Gram-negative bacteremia: 07/25 blood culture positive for Klebsiella pneumoniae in 2 of 4 bottles. Repeat blood culture 07/27 no growth till date. Patient presented with using, about a week of right flank pain, Poor appetite and not feeling well. UA suggestive of UTI, admitting CTAP with renal stone and concern for right pyelonephritis Initially admitted in ICU, needed pressor support, s/p pressors 07/26 afternoon. 07/25 Bl Cx - K. Pneumoniae; 07/26 Urine Cx - K Pneumoniae 07/27 Bl Cx -no growth till date Urology evaluated, status post cystoscopy and right retrograde pyelogram/right ureteral stent placement 07/26/2023 Patient was started on cefepime 07/26, to ceftriaxone 07/27, d/w ID 07/28 - agreed w/ Rx. Continue. CTAP repeated 07/29 for concern of perinephric abscess, which was ruled out. Currently on ceftriaxone; plan to finish on August 10, 2023. Acute metabolic encephalopathy- resolved Acute fever-resolved Thrombocytopenia- resolved Patient had developed acrocyanosis and nasal tip cyanosis overnight of 07/26- 07/27. Patient has been off of pressor support [vasopressin and Levophed] since 07/26 afternoon. 07/27 - Duplex arterial scan of UE and LE WNL. Venous Doppler BLE negative for DVT. Patient was started on heparin drip and Solu-Medrol for concern of cryoglobulinemia. 07/28 - acrocyanosis progressed. Discussed with various subspecialties including rheumatology/hematology/surveillance operator. Peripheral blood smear with no schistocytes. TTP HUS ruled out. DIC from sepsis versus ischemic necrosis from recent pressor use was contemplated as DD for acrocyanosis. Patient was transferred to ICU and was intubated due to tachypnea/shallow breathing. She also developed fever, and started on vancomycin/acyclovir/ampicillin on top of Rocephin in the line of encephalitis versus meningitis. Lumbar puncture was deferred due to dropping platelets. MRI brain was obtained which revealed punctate right occipital lobe lacunar infarct. ANAHI screen is negative. PF4 antibody negative --HIT ruled out. Again no schistocytes noted on peripheral smearTTP HUS ruled out Haptoglobin within normal limits Patient extubated on August Platelets improved as well. 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 Acrocyanosis Gangrene Patient has bluish discoloration in her both hands and legs as well as her nose. Suspicion of vasopressor induced ischemia. Orthopedic consulted for possible debridement/surgical treatment. Seen by orthopedic on August 02, 2023 and August 04, 2023; do not recommend amputation at this point in time. Allow for gangrene to fully demarcate to determine what requires amputation and what can be salvaged. Continue to monitor. New onset anemia Likely UGIB Prior hemoglobin level 13.9, admitting hemoglobin 11.1 Hemoccult positive melanotic stool noted at the ER GI evaluated 07/26, PPI drip changed to twice daily. Monitor H&H and transfuse as needed. Will likely need follow-up with GI as an outpatient. Anemia workup, transfuse PRBC if hemoglobin less than 7 Atrial fibrillation with RVR Demand ischemia Patient developed atrial fibrillation with RVR on July 30, 2023 Echocardiogram from 07/26 shows EF of 50 to 55% with mild concentric LVH. 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 Also started on Cardizem by cardiology on August 02, 2023. Currently on Lovenox for anticoagulation. Continue diuretics with 40 IV Lasix twice daily. Continue diuretics till patient is net negative. Right occipital lobe lacunar infarct: Head and neck imagings reviewed as above. 07/29 MRI w/ punctate right occipital lobe lacunar infarct. Neurology consultedContinue neurochecks. A1c 7.1; LDL 12. Acute kidney injury-resolved: Admitting creatinine of 1.6, past creatinine 0.89. Status post IV fluid, s/p pressor support. Likely prerenal secondary to septic shock. Improvement with IV hydration Other chronic medical conditions: Continue with/resume home meds as and when able. Hypertension, continue on lisinopril. hyperlipidemia, on statin Rx. Continue DM2 on oral medications, reasonable control as of recent hemoglobin A1c of 7.1 last March 2023 HCV status post Rx Recent COVID-19 illness from 2 weeks ago, monitor respiratory symptoms. DVT prophylaxis. Lovenox Lines- Patient has poor peripheral vascular access with only 1 peripheral IV access. PICC line consent was taken from the daughter; unable to place as per vascular team due to poor access. Patient currently has central line. Discussed with nursing to attempt peripheral IV line placement. Removal of central line after placement of another IV access. Full code Discussed with patient's daughter Delores ([phone]) over the phone on 08/04/2023. Provided clinical updates and plan. Answered questions/queries. Time spent evaluating patient, direct bedside care, chart review, placing orders, interpretation of diagnostic studies, discussion with consultants, patient, and family members, as well as other required patient management activities is 50 minutes Please note the above document was generated using voice recognition software. It may contain grammatical, syntax or spelling errors. Any formal questions or concerns about the content, text or information contained within the body of this dictation should be directly addressed to the provider for clarification Admission and Anticipated Discharge Date Admission Date: July 26, 2023 Subjective Patient seen and examined at bedside. She is lying on the bed comfortably; not in distress. She denies any pain or discomfort. She has good urinary output. Vitals remained stable. Review of Systems Review of Systems: All systems reviewed & are unremarkable except as noted in Subjective Physical Exam Physical Exam: GENERAL: Awake, oriented x 3; not in any distress. HEENT: No pallor, no icterus. Pupils equal, round and reactive to light. Bluish discoloration on the nose. NECK: No JVD, no neck masses. HEART: S1 and S2 heard. RRR. No murmur, no gallop. RESPIRATORY SYSTEM: Bilateral vesicular breath sound. ABDOMEN: Soft,no distention. CENTRAL NERVOUS SYSTEM: No facial droop. EXTREMITIES: Bluish discoloration in both hands and legs. Results & Data Results & Data Vital Signs (Past 12 Hours) Vital Signs Temp Pulse Pulse Resp BP BP Pulse Ox 08/05/23 12:01 123/58 L 08/05/23 12:01 87 20 98 08/05/23 12:00 86 16 96 08/05/23 12:00 36.8 C 80 20 123/58 L 98 08/05/23 11:00 87 20 96 08/05/23 10:00 103/59 L 08/05/23 10:00 93 H 19 92 08/05/23 09:00 91 H 18 100 08/05/23 08:00 123/57 L 08/05/23 08:00 89 21 95 08/05/23 08:00 08/05/23 07:27 130/69 08/05/23 07:27 90 20 98 08/05/23 07:00 91 H 21 95 08/05/23 06:00 90 20 90 08/05/23 06:00 146/71 H 08/05/23 05:31 37.5 C 08/05/23 05:00 89 20 91 08/05/23 04:00 137/65 08/05/23 04:00 89 17 91 08/05/23 03:00 91 H 20 92 08/05/23 02:00 122/60 08/05/23 02:00 90 20 91 O2 Del Method 08/05/23 12:01 08/05/23 12:01 08/05/23 12:00 08/05/23 12:00 Room Air 08/05/23 11:00 08/05/23 10:00 08/05/23 10:00 08/05/23 09:00 08/05/23 08:00 08/05/23 08:00 08/05/23 08:00 Room Air 08/05/23 07:27 08/05/23 07:27 08/05/23 07:00 08/05/23 06:00 08/05/23 06:00 08/05/23 05:31 08/05/23 05:00 08/05/23 04:00 08/05/23 04:00 08/05/23 03:00 08/05/23 02:00 08/05/23 02:00
--- NOTE | 2023-08-05 15:33 | Cardiology Progress Note ---
Date of Service August 05, 2023 Assessment & Plan (1) Atrial fibrillation with rapid ventricular response: (2) HTN (hypertension): Plan 73-year-old female admitted with acute septic shock lapsing into atrial fibrillation during acute illness. Initial issues notable including DIC necessary pressor support. Poor peripheral perfusion/cyanosis with resulting gangrenous changes. Hemoglobin 7.5, today 08/05/2023. Platelet count improving from a tile sprayer of 14,000-->91,000-->144 K --> 261 K today 08/05/2024. Patient currently anticoagulated with Lovenox. Remains in atrial flutter, rate controlled with combination of metoprolol succinate, diltiazem, and digoxin. Recommend reduce metoprolol to 25 mg twice daily with titration of Cardizem to 60 mg 3 times daily. Ultimately, consider discontinuation of metoprolol with further titration of diltiazem to optimize vasodilation and limit vasoconstriction. Transition Lovenox to warfarin. Discontinue Lovenox when INR greater than 2.0. Admission and Anticipated Discharge Date Admission Date: July 26, 2023 Subjective Patient seen and examined at the bedside, chart, telemetry reviewed. Rhythm is atrial flutter at 90 bpm. Denies chest pain or shortness of breath. Oxygenating well on room air. Offers no new concerns/complaints. Review of Systems Review of Systems: All systems reviewed & are unremarkable except as noted in Subjective Physical Exam Constitutional: well nourished and + ill appearing; no acute distress Respiratory: no respiratory distress and no labored breathing Auscultation: + diminished lung sounds (Bilateral bases); no rales, no rhonchi and no wheezes Cardiovascular: Rate/Rhythm: regular rate and regular rhythm Heart Sounds: normal S1 and normal S2 Vessels: no JVD Gastrointestinal (Abdomen): Inspection/Auscultation: normal bowel sounds; abdomen not distended Percussion/Palpation: abdomen nontender, no guarding and abdomen not rigid Musculoskeletal: Ecchymotic discoloration of the extremities and tip of her nose. Gangrenous changes of the toes. Results & Data Vital Signs (Past 12 Hours) Vital Signs Temp Pulse Pulse Resp BP BP Pulse Ox 08/05/23 12:01 123/58 L 08/05/23 12:01 87 20 98 08/05/23 12:00 86 16 96 08/05/23 12:00 36.8 C 80 20 123/58 L 98 08/05/23 11:00 87 20 96 08/05/23 10:00 103/59 L 08/05/23 10:00 93 H 19 92 08/05/23 09:00 91 H 18 100 08/05/23 08:00 123/57 L 08/05/23 08:00 89 21 95 08/05/23 08:00 08/05/23 07:27 130/69 08/05/23 07:27 90 20 98 08/05/23 07:00 91 H 21 95 08/05/23 06:00 90 20 90 08/05/23 06:00 146/71 H 08/05/23 05:31 37.5 C 08/05/23 05:00 89 20 91 08/05/23 04:00 137/65 08/05/23 04:00 89 17 91 O2 Del Method 08/05/23 12:01 08/05/23 12:01 08/05/23 12:00 08/05/23 12:00 Room Air 08/05/23 11:00 08/05/23 10:00 08/05/23 10:00 08/05/23 09:00 08/05/23 08:00 08/05/23 08:00 08/05/23 08:00 Room Air 08/05/23 07:27 08/05/23 07:27 08/05/23 07:00 08/05/23 06:00 08/05/23 06:00 08/05/23 05:31 08/05/23 05:00 08/05/23 04:00 08/05/23 04:00 Laboratory Results Cardiac Enzymes 08/05/23 Range/Units 04:24 AST 26 (13-39) U/L CBC 08/05/23 Range/Units 04:24 WBC 20.84 H (4.8-10.8) K/ul RBC 2.47 L (4.20-5.40) M/uL Hgb 7.5 L (12.0-16.0) g/dl Hct 21.6 L (37.0-47.0) % Plt Count 261 (130-400) K/uL Neut # (Auto) 18.31 H (1.40-6.50) K/uL Lymph # (Auto) 1.07 L (1.20-3.40) K/uL [place] # (Auto) 1.10 H (0.11-0.59) K/uL Eos # (Auto) 0.02 (0.00-0.50) K/uL Baso # (Auto) 0.02 (0.00-0.20) K/uL Comprehensive Metabolic Panel 08/05/23 Range/Units 04:24 Sodium 136 (136-145) mmol/L Potassium 2.9 L (3.5-5.1) mmol/L Chloride 98 (98-107) mmol/L Carbon Dioxide 31 (21-32) mmol/L BUN 16 (6-23) mg/dl Creatinine 0.66 (0.6-1.2) mg/dl Glucose 161 H (70-99(Fasting)) mg/dl Calcium 7.4 L (8.6-10.3) mg/dl Direct Bilirubin 0.2 (0-0.2) mg/dl AST 26 (13-39) U/L ALT 38 (7-52) U/L Alkaline Phosphatase 79 (34-104) U/L Total Protein 5.0 L (6.0-8.3) gm/dl Albumin 2.3 L (3.4-5.0) gm/dl Intake and Output 08/05/23 08/05/23 08/05/23 06:59 14:59 22:59 Intake Total 156.6 / 1855.167 704.217 / 704.217 Output Total 2350 / 5150 901 / 901 Balance -2193.4 / -3294.833 -196.783 / -196.783 Intake: IV 156.6 / 1455.167 504.217 / 504.217 Heparin Sodium/Dextrose 25,000 156.6 / 651.0 59.217 / 59.217 units In 500 ml @ 950 UNITS/HR 19 mls/hr IV .Q24H [facility] Rx#: [id number] Potassium Chloride / Wtr 10 meq 395 / 395 In 100 ml @ 100 mls/hr IV Q1H [facility] Rx#:[id number] cefTRIAXone SODIUM 2,000 mg In 50 / 50 Dextrose 5 % Mini-B 50 ml @ 100 mls/hr IV Q24H [facility] Rx#: [id number] Oral 200 / 200 Output: Urine Amount (Catheter) 2350 / 5150 900 / 900 Joshi/Indwelling 2350 / 5150 900 / 900 # Bowel Movements Other: Weight 83.1 kg
[2023-08-05] MEDS: METOPROLOL SUCC 25MG EXT REL TAB PO SCH (16:46)
[2023-08-05] MEDS: dilTIAZem HCl 60 MG TAB PO SCH (20:38)
[2023-08-05] MEDS: POTASSIUM CHLORIDE CRTAB 20 MEQ TABCR PO SCH (20:38)
[2023-08-05 22:32] LABS: % Cryocrit DNR; Cryoglobulin, QL Negative (Negative)
[2023-08-06 05:11] LABS: Hematocrit (blood only) 18.7 % (37.0-47.0); Hemoglobin 6.2 g/dl (12.0-16.0); Mean Corpuscular Hemoglobin 29.4 pg (25.0-34.0); Mean Corpuscular Hgb Conc 33.2 g/dL (32.0-36.0); Mean Corpuscular Volume 88.6 fL (80.0-100.0); Mean Platelet Volume 11.1 fL (9.4-12.4); Platelet Count 256 K/uL (130-400); RDW Coefficient of Variation 14.8 % (11.5-14.5); RDW Standard Deviation 45.5 fL (36.4-46.3); Red Blood Count 2.11 M/uL (4.20-5.40)
[2023-08-06 05:12] LABS: BUN Creatinine Ratio 24.6 (10-20); Calcium 7.2 mg/dl (8.6-10.3); Creatinine Clr Calc Pharmacy 78.7 ml/min; Est GFR (African American) 100.1 ml/min; Est GFR (Non-African American) 86.4 ml/min; Magnesium 1.5 mg/dl (1.7-2.4)
[2023-08-06 05:52] LABS: Basophils # (auto) 0.03 K/uL (0.00-0.20); Basophils % (auto) 0.2 %; Eosinophils # (auto) 0.04 K/uL (0.00-0.50); Eosinophils % (auto) 0.2 %; Immature Granulocytes # (auto) 0.24 K/uL (0.01-0.20); Immature Granulocytes % (auto) 1.4 %; Lymphocytes # (auto) 1.22 K/uL (1.20-3.40); Monocytes # (auto) 0.97 K/uL (0.11-0.59); Monocytes % (auto) 5.5 %; Neutrophils % (auto) 85.7 %; Polychromasia 1+
[2023-08-06 06:16] LABS: Hematocrit (blood only) 18.9 % (37.0-47.0); Hemoglobin 6.3 g/dl (12.0-16.0)
[2023-08-06] MEDS ORDERED: SODIUM CHLORIDE 0.9% 250 ML IV PRN (06:19)
[2023-08-06] MEDS: POTASSIUM CHLORIDE CRTAB 20 MEQ TABCR PO STA (06:33)
[2023-08-06] MEDS: ACETAMINOPHEN SUSP 325 MG/10.15 ML UDC PO ONE (06:33)
[2023-08-06] MEDS: MAGNESIUM SULFATE / D5W 1 GM/100 ML BAG IV SCH ×2 (06:33→07:50)
[2023-08-06] MEDS: POTASSIUM CHLORIDE / WTR 10 MEQ/100 ML PLCT IV SCH (08:38)
--- NOTE | 2023-08-06 10:18 | Cardiology Progress Note ---
Date of Service August 06, 2023 Assessment & Plan (1) Atrial fibrillation with rapid ventricular response: (2) HTN (hypertension): (3) Anemia: (4) Gangrene: Plan 73-year-old female admitted with acute septic shock lapsing into atrial fibrillation during acute illness. Initial issues notable including DIC necessary pressor support. Poor peripheral perfusion/cyanosis with resulting gangrenous changes. Hemoglobin 7.5 gm/dl 08/05/2023 down to 6.2 gm/dl today. Receiving transfusion of packed red blood cells currently. Platelet count has steadily trended upward, now within normal range. Currently anticoagulated with Lovenox. Converted to normal sinus rhythm. Recommend continue current dose of metoprolol plus Cardizem. Short acting Cardizem may be transition to Cardizem CD 180 mg daily at discharge. Consider reducing metoprolol succinate to 25 mg once daily at discharge. Transition Lovenox to warfarin. Discontinue Lovenox when INR greater than 2.0. No further inpatient cardiac testing or intervention recommended at this time. Cardiology will sign off. Please call with additional concerns/questions. Admission and Anticipated Discharge Date Admission Date: July 26, 2023 Subjective Patient seen and examined at the bedside. Patient converted from atrial flutter to sinus rhythm yesterday at approximately 11 AM. Denies palpitations or chest discomfort. Offers no new concerns/complaints. Review of Systems Review of Systems: All systems reviewed & are unremarkable except as noted in Subjective Physical Exam Constitutional: well nourished and + ill appearing; no acute distress Respiratory: no respiratory distress and no labored breathing Auscultation: + diminished lung sounds (Bilateral bases); no rales, no rhonchi and no wheezes Cardiovascular: Rate/Rhythm: regular rate and regular rhythm Heart Sounds: normal S1 and normal S2 Vessels: no JVD Gastrointestinal (Abdomen): Inspection/Auscultation: normal bowel sounds; abdomen not distended Percussion/Palpation: abdomen nontender, no guarding and abdomen not rigid Results & Data Vital Signs (Past 12 Hours) Vital Signs Temp Pulse Resp BP Pulse Ox O2 Flow Rate 08/06/23 08:55 36.3 C L 74 17 129/56 L 99 2 08/06/23 08:25 36.6 C 75 18 127/53 L 99 2 08/06/23 08:10 36.6 C 74 18 126/54 L 98 2 08/06/23 07:55 36.7 C 73 17 125/55 L 100 2 08/06/23 05:00 78 18 95 08/06/23 04:59 36.6 C 08/06/23 04:00 126/59 L 08/06/23 04:00 77 17 98 08/06/23 03:00 77 18 98 08/06/23 02:00 109/42 L 08/06/23 02:00 76 19 92 08/06/23 01:00 75 17 96 08/06/23 00:00 119/56 L 08/06/23 00:00 77 19 99 08/06/23 00:00 36.9 C 08/06/23 00:00 77 08/05/23 23:00 79 20 95 Laboratory Results CBC 08/06/23 08/06/23 Range/Units 04:33 05:35 WBC 17.50 H (4.8-10.8) K/ul RBC 2.11 L (4.20-5.40) M/uL Hgb 6.2 L* 6.3 L* (12.0-16.0) g/dl Hct 18.7 L* 18.9 L* (37.0-47.0) % Plt Count 256 (130-400) K/uL Neut # (Auto) 15.00 H (1.40-6.50) K/uL Lymph # (Auto) 1.22 (1.20-3.40) K/uL Mcclain # (Auto) 0.97 H (0.11-0.59) K/uL Eos # (Auto) 0.04 (0.00-0.50) K/uL Baso # (Auto) 0.03 (0.00-0.20) K/uL Comprehensive Metabolic Panel 08/06/23 Range/Units 04:33 Sodium 135 L (136-145) mmol/L Potassium 3.0 L (3.5-5.1) mmol/L Chloride 97 L (98-107) mmol/L Carbon Dioxide 32 (21-32) mmol/L BUN 17 (6-23) mg/dl Creatinine 0.69 (0.6-1.2) mg/dl Glucose 144 H (70-99(Fasting)) mg/dl Calcium 7.2 L (8.6-10.3) mg/dl Intake and Output 08/05/23 08/06/23 08/06/23 22:59 06:59 14:59 Intake Total 225.000 / 225.000 Output Total 1400 / 3901 Balance -1400 / -2896.783 225.000 / 225.000 Intake: IV 225.000 / 225.000 Magnesium Sulfate / D5w 1 gm In 83.333 / 83.333 100 ml @ 50 mls/hr IV Q2H [facility] Rx#:[id number] Potassium Chloride / Wtr 10 meq 91.667 / 91.667 In 100 ml @ 100 mls/hr IV Q1H [facility] Rx#:[id number] cefTRIAXone SODIUM 2,000 mg In 50 / 50 Dextrose 5 % Mini-B 50 ml @ 100 mls/hr IV Q24H [facility] Rx#: [id number] Intake (Blood Product) Amt 0 / 0 Packed Cells, Leukoreduced 0 / 0 Unit [id number] Output: Urine Amount (Catheter) 1400 / 3900 Joshi/Indwelling 1400 / 3900 Other: Weight 82.6 kg (2) HTN (hypertension) Hypertension type: primary hypertension Qualified Code(s): I10 - Essential (primary) hypertension (3) Anemia Anemia type: unspecified type Qualified Code(s): D64.9 - Anemia, unspecified
--- NOTE | 2023-08-06 14:25 | Hospitalist Progress Note ---
Date of Service August 06, 2023 Assessment & Plan (1) Encephalopathy: Plan: 73-year-old lady with PMH of HTN, HLD, T2DM, HCV status posttreatment, anxiety/mood disorder was brought in with complaint of confusion for about 1 day duration. Also she had noted right flank pain complaints since about 1 week ago GOLD MARKER associated with not feeling well & a/w poor appetite. She is being managed for the following: ADMITTING IMANGINGS: Admitting CXR with no acute finding. Admitting CT head with no acute finding. Admitting CTA head WNL. Admitting CTA neck with moderate left ICA stenosis and possible high risk/ulcerated plaque in this location. Admitting CTA chest with no PE. Admitting CTAP with mild right hydronephrosis, secondary to 2 into 5 mm stone in the mid ureter. Concern for right pyelonephritis. No perinephric abscess. C holelithiasis without acute cholecystitis. Complicated UTI Urolithiasis and obstructive uropathy Urosepsis Severe sepsis POA: Secondary to above. Respiratory rate/pulse rate/WBC elevated at presentation. Lactate and procalcitonin elevated at presentation. Septic shock: Patient's blood pressure did not improve despite aggressive fluid resuscitation, was transferred to ICU for pressor support requirement at admission. Likely metabolic encephalopathy: Secondary to above Gram-negative bacteremia: 07/25 blood culture positive for Klebsiella pneumoniae in 2 of 4 bottles. Repeat blood culture 07/27 no growth till date. Patient presented with using, about a week of right flank pain, Poor appetite and not feeling well. UA suggestive of UTI, admitting CTAP with renal stone and concern for right pyelonephritis Initially admitted in ICU, needed pressor support, s/p pressors 07/26 afternoon. 07/25 Bl Cx - K. Pneumoniae; 07/26 Urine Cx - K Pneumoniae 07/27 Bl Cx -no growth till date Urology evaluated, status post cystoscopy and right retrograde pyelogram/right ureteral stent placement 07/26/2023 Patient was started on cefepime 07/26, to ceftriaxone 07/27, d/w ID 07/28 - agreed w/ Rx. Continue. CTAP repeated 07/29 for concern of perinephric abscess, which was ruled out. Currently on ceftriaxone; plan to finish on August 10, 2023. Acute metabolic encephalopathy- resolved Acute fever-resolved Thrombocytopenia- resolved Patient had developed acrocyanosis and nasal tip cyanosis overnight of 07/26- 07/27. Patient has been off of pressor support [vasopressin and Levophed] since 07/26 afternoon. 07/27 - Duplex arterial scan of UE and LE WNL. Venous Doppler BLE negative for DVT. Patient was started on heparin drip and Solu-Medrol for concern of cryoglobulinemia. 07/28 - acrocyanosis progressed. Discussed with various subspecialties including rheumatology/hematology/concrete hopper operator. Peripheral blood smear with no schistocytes. TTP HUS ruled out. DIC from sepsis versus ischemic necrosis from recent pressor use was contemplated as DD for acrocyanosis. Patient was transferred to ICU and was intubated due to tachypnea/shallow breathing. She also developed fever, and started on vancomycin/acyclovir/ampicillin on top of Rocephin in the line of encephalitis versus meningitis. Lumbar puncture was deferred due to dropping platelets. MRI brain was obtained which revealed punctate right occipital lobe lacunar infarct. ANAHI screen is negative. PF4 antibody negative --HIT ruled out. Again no schistocytes noted on peripheral smearTTP HUS ruled out Haptoglobin within normal limits Patient extubated on August Platelets improved as well. 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 Acrocyanosis Gangrene Patient has bluish discoloration in her both hands and legs as well as her nose. Suspicion of vasopressor induced ischemia. Orthopedic consulted for possible debridement/surgical treatment. Seen by orthopedic on August 02, 2023 and August 04, 2023; do not recommend amputation at this point in time. Allow for gangrene to fully demarcate to determine what requires amputation and what can be salvaged. Continue to monitor. New onset anemia Likely UGIB Prior hemoglobin level 13.9, admitting hemoglobin 11.1 Hemoccult positive melanotic stool noted at the ER GI evaluated 07/26, PPI drip changed to twice daily. Monitor H&H and transfuse as needed. Will likely need follow-up with GI as an outpatient. Hemoglobin down to 6.3 today; transfused 2 units. Monitor daily CBC Atrial fibrillation with RVR Demand ischemia Patient developed atrial fibrillation with RVR on July 30, 2023 Echocardiogram from 07/26 shows EF of 50 to 55% with mild concentric LVH. 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 Plan to transition to Cardizem 180 mg daily at discharge and reducing metoprolol to 25 mg once daily at discharge. Continue on Lovenox for anticoagulation. Plan to transition over to Coumadin after surgical interventions by orthopedics. Acute on chronic diastolic CHF: Chest x-ray from 08/01 shows pulmonary edema Echocardiogram as above Diuresis with IV Lasix 40 mg twice daily Hold today's dose due to low blood pressure. Continue IV diuretics as needed to get negative balance. Right occipital lobe lacunar infarct: Head and neck imagings reviewed as above. 07/29 MRI w/ punctate right occipital lobe lacunar infarct. Neurology consulted; Continue neurochecks. A1c 7.1; LDL 12. Acute kidney injury-resolved: Admitting creatinine of 1.6, past creatinine 0.89. Status post IV fluid, s/p pressor support. Likely prerenal secondary to septic shock. Improvement with IV hydration Other chronic medical conditions: Continue with/resume home meds as and when able. Hypertension, continue on lisinopril. hyperlipidemia, on statin Rx. Continue DM2 on oral medications, reasonable control as of recent hemoglobin A1c of 7.1 last March 2023 HCV status post Rx Recent COVID-19 illness from 2 weeks ago, monitor respiratory symptoms. DVT prophylaxis. Lovenox Lines- Patient has poor peripheral vascular access with only 1 peripheral IV access. PICC line consent was taken from the daughter; unable to place as per vascular team due to poor access. Patient currently has right IJ central line. Discussed with nursing to attempt peripheral IV line placement. Removal of central line after placement of another IV access. Full code Discussed with patient's daughter Delores ([phone]) over the phone on 08/04/2023 and with patient's sister at bedside on 08/05/2023. Provided clinical updates and plan. Answered questions/queries. Time spent evaluating patient, direct bedside care, chart review, placing orders, interpretation of diagnostic studies, discussion with consultants, patient, and family members, as well as other required patient management activities is 55 minutes Please note the above document was generated using voice recognition software. It may contain grammatical, syntax or spelling errors. Any formal questions or concerns about the content, text or information contained within the body of this dictation should be directly addressed to the provider for clarification Admission and Anticipated Discharge Date Admission Date: July 26, 2023 Subjective Patient seen and examined at bedside. She is comfortably sitting up on the bed; not in distress. She denies any pain or discomfort. Review of Systems Review of Systems: All systems reviewed & are unremarkable except as noted in Subjective Physical Exam Physical Exam: GENERAL: Awake, oriented x 3; not in any distress. HEENT: No pallor, no icterus. Pupils equal, round and reactive to light. Bluish discoloration on the nose. NECK: No JVD, no neck masses. HEART: S1 and S2 heard. RRR. No murmur, no gallop. RESPIRATORY SYSTEM: Bilateral vesicular breath sound. ABDOMEN: Soft,no distention. CENTRAL NERVOUS SYSTEM: No facial droop. EXTREMITIES: Bluish discoloration in both hands and legs. Results & Data Results & Data Vital Signs (Past 12 Hours) Vital Signs Temp Pulse Resp BP Pulse Ox O2 Flow Rate 08/06/23 13:47 36.5 C 64 17 104/54 L 98 08/06/23 12:47 36.4 C L 64 17 91/53 L 98 08/06/23 12:17 36.5 C 72 16 102/53 L 97 2 08/06/23 12:02 36.5 C 72 15 108/55 L 98 2 08/06/23 11:47 36.8 C 72 17 116/59 L 100 2 08/06/23 11:00 104/55 L 08/06/23 11:00 73 16 100 08/06/23 10:25 36.4 C L 73 18 118/55 L 100 2 08/06/23 09:55 36.4 C L 73 16 120/56 L 98 2 08/06/23 08:55 36.3 C L 74 17 129/56 L 99 2 08/06/23 08:25 36.6 C 75 18 127/53 L 99 2 08/06/23 08:10 36.6 C 74 18 126/54 L 98 2 08/06/23 07:55 36.7 C 73 17 125/55 L 100 2 08/06/23 05:00 78 18 95 08/06/23 04:59 36.6 C 08/06/23 04:00 126/59 L 08/06/23 04:00 77 17 98 08/06/23 03:00 77 18 98
[2023-08-07 04:41] LABS: Basophils # (auto) 0.03 K/uL (0.00-0.20); Basophils % (auto) 0.2 %; Eosinophils # (auto) 0.03 K/uL (0.00-0.50); Eosinophils % (auto) 0.2 %; Hematocrit (blood only) 26.1 % (37.0-47.0); Hemoglobin 8.9 g/dl (12.0-16.0); Immature Granulocytes # (auto) 0.19 K/uL (0.01-0.20); Immature Granulocytes % (auto) 1.3 %; Lymphocytes # (auto) 1.14 K/uL (1.20-3.40); Lymphocytes % (auto) 7.6 %; Mean Corpuscular Hemoglobin 29.8 pg (25.0-34.0); Mean Corpuscular Hgb Conc 34.1 g/dL (32.0-36.0); Mean Corpuscular Volume 87.3 fL (80.0-100.0); Mean Platelet Volume 10.9 fL (9.4-12.4); Neutrophils # (auto) 12.68 K/uL (1.40-6.50); Neutrophils % (auto) 84.7 %; Platelet Count 265 K/uL (130-400); RDW Coefficient of Variation 14.8 % (11.5-14.5); RDW Standard Deviation 46.1 fL (36.4-46.3); Red Blood Count 2.99 M/uL (4.20-5.40); White Blood Count 14.97 K/ul (4.8-10.8)
[2023-08-07 04:58] LABS: BUN Creatinine Ratio 22.6 (10-20); Calcium 7.3 mg/dl (8.6-10.3); Creatinine Clr Calc Pharmacy 87.8 ml/min; Est GFR (African American) 103.7 ml/min; Est GFR (Non-African American) 89.5 ml/min; Magnesium 1.7 mg/dl (1.7-2.4); Potassium 3.8 mmol/L (3.5-5.1)
--- NOTE | 2023-08-07 10:18 | Pharmacy Report ---
Pharmacy Glycemic Short Note 2 - Date of Service August 07, 2023 - Glycemic Short BSG Results (Last 24 hours): 08/06/23 08/06/23 08/06/23 11:36 16:20 21:17 Glucose POC Glucose 206 H 148 H 164 H 08/07/23 08/07/23 04:13 07:09 Glucose 146 H POC Glucose 138 H OUTPATIENT ANTIDIABETIC REGIMEN: * Metformin 1000 mg BIDM * A1c 7.1% 07/26/23 ASSESSMENT: 08/07 * 23 units SQ admin over last 24 hrs while tolerating diet (consuming 2 of 3 meals yesterday) * Fasting BSG at goal with 10 units basal on board (FBS 138) * Post-prandial BSGs controlled 2 of 3 yesterday. Will continue with current Novolog CR/CF 08/05 * 26 units SQ administered over last 24 hours * BSGs erratic yesterday, possibly due to lack of Novolog with lunch and dinner; as well as the wearing off of steroid effects * Will resume a less dose of basal insulin this AM as fasting BSG elevated with 15 units basal on board. No steroid given in last 24 hrs. Patient was well controlled on metformin monotherapy prior to admission. * Will add carb ratio again today in lesser dose given lack of steroid 08/04 * Patient received total of 39 units of insulin yesterday, of which 15 units were basal * Fasting BSG 158 mg/dL - continued with Lantus 15 this AM * Steroids fell off this morning (didn't receive dose), BSGs trending down at lunch time therefore will remove CR for now to hopefully prevent hypoglycemia PLAN FOR INPATIENT GLYCEMIC CONTROL: * Hold outpatient oral diabetes medications (metformin) * Lantus 10 units qAM * Novolog ACHS or Q 6 hrs if NPO * --Goal BSG Range: Low 110 mg/dL, High 140mg/dL --Correction Factor: 30 mg/dL/unit --Carbohydrate ratio = 12 g/unit
--- NOTE | 2023-08-07 22:24 | Hospitalist Progress Note ---
Date of Service August 07, 2023 Assessment & Plan (1) Gangrene: (2) Atrial fibrillation with rapid ventricular response: (3) Bacteremia: (4) Acute encephalopathy: (5) Anemia: (6) HTN (hypertension): (7) Septic shock: (8) Acute kidney injury: (9) Complicated urinary tract infection: (10) Hydronephrosis due to obstruction of ureter: (11) Ureterolithiasis: (12) Sepsis: Plan Pt is a 73yoF with PMHx significant for HTN, HLD, T2DM, HCV status posttreatment, anxiety/mood disorder who presented with confusion and right flank pain. Has had a complicated course that included severe sepsis in the setting of obstructive uropathy and complicated UTI, requiring pressor support and subsequent development of acrocyanosis with gangrene in her extremities. Complicated UTI Urolithiasis and obstructive uropathy Urosepsis Severe sepsis POA: Secondary to above. Respiratory rate/pulse rate/WBC elevated at presentation. Lactate and procalcitonin elevated at presentation. UA suggestive of infection, 07/26 Urine Cx - K Pneumoniae 07/25 Bl Cx x2 - grew K. Pneumoniae Repeat Blood Cx x2 with NGTD Septic shock: Patient's blood pressure did not improve despite aggressive fluid resuscitation, was transferred to ICU for pressor support on admission. Likely metabolic encephalopathy: Secondary to above Gram-negative bacteremia: 07/25 blood cultures x2 positive for Klebsiella pneumoniae. Repeat blood culture 07/27 no growth to date. Urology evaluated, status post cystoscopy and right retrograde pyelogram/right ureteral stent placement 07/26/2023 Patient was started on cefepime 07/26, to ceftriaxone 07/27, d/w ID 07/28 - agreed w/ Rx. Continue. CTAP repeated 07/29 for concern of perinephric abscess, which was ruled out. Currently on ceftriaxone; continue, plan to finish on August 10, 2023. Acrocyanosis Gangrene Acute CVA Patient had developed acrocyanosis and nasal tip cyanosis overnight on 07/26- 07/27. Patient has been off of pressor support [vasopressin and Levophed] from 07/26. 07/27 - Duplex arterial scan of UE and LE WNL. Venous Doppler BLE negative for DVT. Patient was started on heparin drip and Solu-Medrol for concern of cryoglobulinemia. 07/28 - acrocyanosis progressed. Discussed with various subspecialties including rheumatology/hematology/founder and president. Peripheral blood smear with no schistocyt es. TTP HUS ruled out. DIC from sepsis versus ischemic necrosis from recent pressor use was contemplated on differential diagnosis for acrocyanosis. Patient was transferred to ICU and was intubated due to tachypnea/shallow breathing. She also developed a fever, and was started on vancomycin/acyclovir/ampicillin on top of Rocephin for possible encephalitis versus meningitis. Lumbar puncture was deferred due to dropping platelets. MRI brain was obtained which revealed punctate right occipital lobe lacunar infarct. ANAHI screen was negative. PF4 antibody negative --HIT ruled out. Again no schistocytes noted on peripheral smearTTP HUS ruled out Haptoglobin within normal limits Patient was extubated on August Platelets improved as well. 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 Orthopedic consulted for possible debridement/surgical treatment. Seen by orthopedic on August 02, 2023 and August 04, 2023; do not recommend amputation at this point in time. Recommended allowing for gangrene to fully demarcate to determine what requires amputation and what can be salvaged. Consider re-consult to orthopedics for re-evaluation. New onset anemia Likely UGIB Prior hemoglobin level 13.9, admitting hemoglobin 11.1 Hemoccult positive melanotic stool noted at the ER GI evaluated 07/26, PPI drip changed to twice daily. Monitor H&H and transfuse as needed. Will likely need follow-up with GI as an outpatient. Hemoglobin down to 6.3 on 08/06; transfused 2 units- currently stable and increasing to 9 Monitor daily CBC Atrial fibrillation with RVR Demand ischemia Patient developed atrial fibrillation with RVR on July 30, 2023 Echocardiogram from 07/26 shows EF of 50 to 55% with mild concentric LVH. 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 Also on digoxin. Plan to transition to Cardizem 180 mg daily at discharge and reducing metoprolol to 25 mg once daily at discharge. Continue on Lovenox for anticoagulation. Plan to transition over to Coumadin after surgical interventions by orthopedics. Appreciate Cardiology recs Acute on chronic diastolic CHF: Chest x-ray from 08/01 showed pulmonary edema Echocardiogram as above Diuresis with IV Lasix 40 mg twice daily Continue IV diuretics as needed to get negative balance. Right occipital lobe lacunar infarct: Head and neck imaging with 07/29 MRI w/ punctate right occipital lobe lacunar infarct. Neurology previously consulted Continue statin Acute kidney injury-resolved: Admitting creatinine of 1.6, past creatinine 0.89. Status post IV fluid, s/p pressor support. Likely prerenal secondary to septic shock. Improvement with IV hydration Acute metabolic encephalopathy- resolved Acute fever-resolved Thrombocytopenia- resolved Other chronic medical conditions: Continue with/resume home meds as and when able. Hypertension, continue on lisinopril. hyperlipidemia, on statin Rx. Continue DM2 on oral medications, reasonable control as of recent hemoglobin A1c of 7.1 last March 2023 HCV status post Rx Recent COVID-19 illness from 2 weeks ago, monitor respiratory symptoms. Diet: HH/DMII, minced and moist CODE STATUS: Full code DVT prophylaxis: Lovenox Dispo: Pt accepted at [facility]- Patient has poor peripheral vascular access with only 1 peripheral IV access. PICC line consent was obtained from the daughter; unable to place as per vascular team due to poor access. Patient currently has right IJ central line. Discussed with nursing to attempt peripheral IV line placement. Removal of central line after placement of other IV access. Contact: daughter Delores ([phone]) Admission and Anticipated Discharge Date Admission Date: July 26, 2023 Subjective Pt was seen laying in bed. States that she has difficulty moving her left arm. Some pain. Review of Systems Review of Systems: All systems reviewed & are unremarkable except as noted in Subjective Physical Exam Physical Exam: General: Alert, oriented. No acute distress Skin: blackened hands and feet Psych: Appropriate mood and affect Neuro: left arm weak, unable to move HEENT: NC/AT Chest: Nontender to palpation. CV: RRR Resp:no increased effort of breathing Abdomen: Soft Extremities: blackened hands and feet Results & Data Results & Data Vital Signs (Past 12 Hours) Vital Signs Temp Pulse Pulse Resp BP Pulse Ox O2 Del Method 08/07/23 08:34 Room Air 08/07/23 08:00 79 08/07/23 07:48 36.9 C 78 20 158/79 H 96 Room Air 08/07/23 04:00 37.2 C 74 18 130/75 97 Room Air 08/07/23 00:29 73 (5) Anemia Anemia type: unspecified type Qualified Code(s): D64.9 - Anemia, unspecified (6) HTN (hypertension) Hypertension type: primary hypertension Qualified Code(s): I10 - Essential (primary) hypertension (12) Sepsis Acute renal failure type: unspecified Sepsis acute organ dysfunction status: with acute organ dysfunction Sepsis type: sepsis due to unspecified organism Severe sepsis acute organ dysfunction type: acute renal failure Severe sepsis shock status: without septic shock Qualified Code(s): A41.9 - Sepsis, unspecified organism; R65.20 - Severe sepsis without septic shock; N17.9 - Acute kidney failure, unspecified
[2023-08-08 05:18] LABS: Basophils # (auto) 0.02 K/uL (0.00-0.20); Basophils % (auto) 0.1 %; Eosinophils # (auto) 0.02 K/uL (0.00-0.50); Eosinophils % (auto) 0.1 %; Hematocrit (blood only) 27.6 % (37.0-47.0); Hemoglobin 9.3 g/dl (12.0-16.0); Immature Granulocytes # (auto) 0.15 K/uL (0.01-0.20); Immature Granulocytes % (auto) 1.1 %; Lymphocytes # (auto) 0.94 K/uL (1.20-3.40); Lymphocytes % (auto) 6.8 %; Mean Corpuscular Hemoglobin 29.8 pg (25.0-34.0); Mean Corpuscular Hgb Conc 33.7 g/dL (32.0-36.0); Mean Corpuscular Volume 88.5 fL (80.0-100.0); Mean Platelet Volume 10.7 fL (9.4-12.4); Monocytes # (auto) 1.02 K/uL (0.11-0.59); Monocytes % (auto) 7.4 %; Neutrophils # (auto) 11.71 K/uL (1.40-6.50); Neutrophils % (auto) 84.5 %; Platelet Count 320 K/uL (130-400); RDW Standard Deviation 46.7 fL (36.4-46.3); Red Blood Count 3.12 M/uL (4.20-5.40); White Blood Count 13.86 K/ul (4.8-10.8)
[2023-08-08 05:30] LABS: Albumin Globulin Ratio 0.8 (0.9-2); Albumin Level 2.6 gm/dl (3.4-5.0); BUN Creatinine Ratio 19.7 (10-20); Bilirubin,Total 0.8 mg/dl (0.2-1.0); Calcium 7.9 mg/dl (8.6-10.3); Creatinine Clr Calc Pharmacy 89.3 ml/min; Est GFR (African American) 104.2 ml/min; Est GFR (Non-African American) 89.9 ml/min; Globulin 3.4 gm/dl (2.5-4.0); Magnesium 1.6 mg/dl (1.7-2.4); Phosphorus 3.6 mg/dl (2.5-4.9); Potassium 3.8 mmol/L (3.5-5.1)
[2023-08-08 05:49] LABS: Prothrombin Time 11.1 Seconds (9.0-12.0)
[2023-08-08] MEDS: MAGNESIUM OXIDE 400 MG TAB PO SCH (11:25)
[2023-08-08 14:38] LABS: Interleukin 2R 4697 pg/mL (532-1891)
[2023-08-08] MEDS ORDERED: WARFARIN SOD 5 MG TAB PO SCH (16:00)
--- NOTE | 2023-08-08 19:08 | Orthopedic Consultation ---
Date of Consultation August 08, 2023 Assessment & Plan (1) Gangrene: Patient with necrosis at the distal aspect of all 4 extremities. Agree with previous consultation by Dr. Lay that we need to delay definitive treatment until the necrosis clearly delinates. This process will likely take several weeks. There is a very diffuse area on all 4 extremities that has not yet delineated. There is no active infection, and there is no urgency to this surgical treatment. This surgery can basically be done on an elective basis unless she develops obvious infection, which currently is not present. I would recommend waiting until all of the tissue delineates, patient is more stable, and back to her baseline mental status where she can participate in the decision-making process. Dr. Lay and I can follow and treat the upper extremity necrosis. I would recommend Podiatry consult to evaluate and treat the lower extremity necrosis. History of Present Illness Reason for Consultation: "re-evaluation of gangrene, demarcation" Requesting Physician: Dr. Ojeda Attending Physician: [place] Ojeda MD History of Present Illness Ms. Kelly is a 73-year-old female who has been in the hospital for few weeks now, developed sepsis, and is in the ICU currently. She was treated with pressor support for her sepsis, and subsequently developed necrosis at the distal aspect of all [address] Lay previously performed a consult just a few days ago on 08/02, with a follow-up evaluation on 08/04. He recommended delay of definitive treatment until the necrosis definitively delineates. The patient herself is unable to provide any appreciable history, as she is disoriented to person, place, and time. She denies any significant pain currently. Allergies Allergy/AdvReac Type Severity Reaction Status Date / Time No Known Allergies Allergy Verified 07/25/23 19:50 Home Medications Medication Instructions Recorded Confirmed Type lisinopril 10 mg tablet 10 mg PO QAM 11/14/20 07/25/23 History atorvastatin 40 mg tablet 40 mg PO QAM 07/25/23 07/25/23 History calcium carbonate 1,000 mg-vitamin 1 tab PO DAILY 07/25/23 07/25/23 History D3 20 mcg (800 unit) tablet cyanocobalamin (vitamin B-12) 1,000 mcg PO QAM 07/25/23 07/25/23 History 1,000 mcg tablet ibandronate 150 mg tablet 150 mg PO .EVERY 30 DAYS 07/25/23 07/25/23 History metformin 1,000 mg tablet 1,000 mg PO BIDWMEAL 07/25/23 07/25/23 History venlafaxine 150 mg 150 mg PO DAILY 07/25/23 07/25/23 History capsule,extended release 24 hr Patient History Medical History Fever 41 degrees C or over Acute encephalopathy History of COVID-19 History of colon polyps Anxiety HTN (hypertension) Surgical History S/P wrist surgery History of colonoscopy History of hysterectomy History of tonsillectomy Family History Grandmother Family history of diabetes mellitus Family history of colon cancer Grandfather Family history of colon cancer Aunt Family history of colon cancer Uncle Family history of colon cancer Social History Smoking Status: Current some day smoker Tobacco Type: Cigarettes Second Hand Exposure: No; Do You Dip or Chew Tobacco: No; Hx Alcohol Use: No Hx Substance Use: No Preferred Language: [place] Communication Ability: Effective School Laboratory Technician Required: No Beliefs That Will Affect Care: None Current Living Situation: Family Current Living Situation Comment: Pt's grandsonIlir lives with her Feels Safe at Home: Yes Assistive Devices: None Physical Exam Physical Exam: She is disoriented to person, place, and time. She is currently in the ICU. Examination of bilateral upper and lower extremities reveals necrosis at the distal tips of all 10 fingers and toes. There is clear areas of dry gangrene at the distal tips of these digits. However, there is a much more diffuse area of congestion, ecchymosis, and swelling at the distal aspect of all 4 extremities. Overall, the right hand and foot are worse than the left hand and foot. No evidence of infection in any of the 4 extremities. Results & Data Vital Signs (Past 12 Hours) Vital Signs Temp Pulse Pulse Resp BP Pulse Ox O2 Del Method 08/08/23 16:36 77 02/08/24 16:00 36.4 C L 76 16 131/67 92 Room Air 08/08/23 12:00 79 20 147/74 H 94 Room Air 08/08/23 08:33 36.6 C 89 22 155/82 H 95 Room Air
[2023-08-09 05:12] LABS: Basophils # (auto) 0.04 K/uL (0.00-0.20); Basophils % (auto) 0.3 %; Eosinophils # (auto) 0.04 K/uL (0.00-0.50); Eosinophils % (auto) 0.3 %; Hematocrit (blood only) 28.5 % (37.0-47.0); Hemoglobin 9.3 g/dl (12.0-16.0); Immature Granulocytes # (auto) 0.16 K/uL (0.01-0.20); Immature Granulocytes % (auto) 1.4 %; Lymphocytes # (auto) 0.84 K/uL (1.20-3.40); Lymphocytes % (auto) 7.3 %; Mean Corpuscular Hemoglobin 29.7 pg (25.0-34.0); Mean Corpuscular Hgb Conc 32.6 g/dL (32.0-36.0); Mean Corpuscular Volume 91.1 fL (80.0-100.0); Mean Platelet Volume 10.3 fL (9.4-12.4); Monocytes # (auto) 0.95 K/uL (0.11-0.59); Monocytes % (auto) 8.2 %; Neutrophils % (auto) 82.5 %; Platelet Count 327 K/uL (130-400); RDW Standard Deviation 48.7 fL (36.4-46.3); Red Blood Count 3.13 M/uL (4.20-5.40); White Blood Count 11.53 K/ul (4.8-10.8)
[2023-08-09 05:39] LABS: Prothrombin Time 11.4 Seconds (9.0-12.0)
--- NOTE | 2023-08-09 05:46 | Hospitalist Progress Note ---
Date of Service August 08, 2023 Assessment & Plan (1) Gangrene: (2) Atrial fibrillation with rapid ventricular response: (3) Bacteremia: (4) Acute encephalopathy: (5) Anemia: (6) HTN (hypertension): (7) Septic shock: (8) Acute kidney injury: (9) Complicated urinary tract infection: (10) Hydronephrosis due to obstruction of ureter: (11) Ureterolithiasis: (12) Sepsis: Plan Pt is a 73yoF with PMHx significant for HTN, HLD, T2DM, HCV status posttreatment, anxiety/mood disorder who presented with confusion and right flank pain. Has had a complicated course that included severe sepsis in the setting of obstructive uropathy and complicated UTI, requiring pressor support and subsequent development of acrocyanosis with gangrene in her extremities. Complicated UTI Urolithiasis and obstructive uropathy Urosepsis Severe sepsis POA: Secondary to above. Respiratory rate/pulse rate/WBC elevated at presentation. Lactate and procalcitonin elevated at presentation. UA suggestive of infection, 07/26 Urine Cx - K Pneumoniae 07/25 Bl Cx x2 - grew K. Pneumoniae Repeat Blood Cx x2 with NGTD Septic shock: Patient's blood pressure did not improve despite aggressive fluid resuscitation, was transferred to ICU for pressor support on admission. Likely metabolic encephalopathy: Secondary to above Gram-negative bacteremia: 07/25 blood cultures x2 positive for Klebsiella pneumoniae. Repeat blood culture 07/27 no growth to date. Urology evaluated, status post cystoscopy and right retrograde pyelogram/right ureteral stent placement 07/26/2023 Patient was started on cefepime 07/26, to ceftriaxone 07/27, d/w ID 07/28 - agreed w/ Rx. Continue. CTAP repeated 07/29 for concern of perinephric abscess, which was ruled out. Currently on ceftriaxone; continue, plan to finish on August 10, 2023. Acrocyanosis Gangrene Acute CVA Patient had developed acrocyanosis and nasal tip cyanosis overnight on 07/26- 07/27. Patient has been off of pressor support [vasopressin and Levophed] from 07/26. 07/27 - Duplex arterial scan of UE and LE WNL. Venous Doppler BLE negative for DVT. Patient was started on heparin drip and Solu-Medrol for concern of cryoglobulinemia. 07/28 - acrocyanosis progressed. Discussed with various subspecialties including rheumatology/hematology/line construction supervisor. Peripheral blood smear with no schistocyt es. TTP HUS ruled out. DIC from sepsis versus ischemic necrosis from recent pressor use was contemplated on differential diagnosis for acrocyanosis. Patient was transferred to ICU and was intubated due to tachypnea/shallow breathing. She also developed a fever, and was started on vancomycin/acyclovir/ampicillin on top of Rocephin for possible encephalitis versus meningitis. Lumbar puncture was deferred due to dropping platelets. MRI brain was obtained which revealed punctate right occipital lobe lacunar infarct. ANAHI screen was negative. PF4 antibody negative --HIT ruled out. Again no schistocytes noted on peripheral smearTTP HUS ruled out Haptoglobin within normal limits Patient was extubated on August Platelets improved as well. Continue VALIDATION MANAGER, PT OT. Orthopedic consulted for possible debridement/surgical treatment. Seen by orthopedic on August 02, 2023 and August 04, 2023; do not recommend amputation at this point in time. Recommended allowing for gangrene to fully demarcate to determine what requires amputation and what can be salvaged. Orthopedics re-consulted on 08/08- appreciate recs -recommended waiting for further delineation which can take a few weeks, can be done electively. However pt needs monitoring for signs of infection -podiatry consult for lower extremity evaluation New onset anemia Likely UGIB Prior hemoglobin level 13.9, admitting hemoglobin 11.1 Hemoccult positive melanotic stool noted at the ER GI evaluated 07/26, PPI drip changed to twice daily. Monitor H&H and transfuse as needed. Will likely need follow-up with GI as an outpatient. Hemoglobin down to 6.3 on 08/06; transfused 2 units- currently stable and increasing to 9 Monitor daily CBC Atrial fibrillation with RVR Demand ischemia Patient developed atrial fibrillation with RVR on July 30, 2023 Echocardiogram from 07/26 shows EF of 50 to 55% with mild concentric LVH. 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 Also on digoxin. Plan to transition to Cardizem 180 mg daily at discharge and reducing metoprolol to 25 mg once daily at discharge. Continue on Lovenox for anticoagulation. Plan to transition over to Coumadin after surgical interventions by orthopedics. Appreciate Cardiology recs Acute on chronic diastolic CHF: Chest x-ray from 08/01 showed pulmonary edema Echocardiogram as above Diuresis with IV Lasix 40 mg twice daily Continue IV diuretics as needed to get negative balance. Right occipital lobe lacunar infarct: Head and neck imaging with 07/29 MRI w/ punctate right occipital lobe lacunar infarct. Neurology previously consulted Continue statin Acute kidney injury-resolved: Admitting creatinine of 1.6, past creatinine 0.89. Status post IV fluid, s/p pressor support. Likely prerenal secondary to septic shock. Improvement with IV hydration Acute metabolic encephalopathy- resolved Acute fever-resolved Thrombocytopenia- resolved Other chronic medical conditions: Continue with/resume home meds as and when able. Hypertension, continue on lisinopril. hyperlipidemia, on statin Rx. Continue DM2 on oral medications, reasonable control as of recent hemoglobin A1c of 7.1 last March 2023 HCV status post Rx Recent COVID-19 illness from 2 weeks ago, monitor respiratory symptoms. Diet: HH/DMII, minced and moist CODE STATUS: Full code DVT prophylaxis: Lovenox Dispo: Pt accepted at [facility]- Patient has poor peripheral vascular access with only 1 peripheral IV access. PICC line consent was obtained from the daughter; unable to place as per vascular team due to poor access. Patient currently has right IJ central line. Discussed with nursing to attempt peripheral IV line placement. Removal of central line after placement of other IV access. Contact: chintan Estrella ([phone]) Admission and Anticipated Discharge Date Admission Date: July 26, 2023 Subjective Pt was seen laying in bed. Denied acute concerns. Denied pain. Review of Systems Review of Systems: All systems reviewed & are unremarkable except as noted in Subjective Physical Exam Physical Exam: General: Alert, oriented. No acute distress Skin: blackened hands and feet, noted bullae Psych: Appropriate mood and affect Neuro: left arm weak, unable to move HEENT: NC/AT Chest: Nontender to palpation. CV: RRR Resp:no increased effort of breathing Abdomen: Soft Extremities: blackened hands and feet Results & Data Results & Data Vital Signs (Past 12 Hours) Vital Signs Temp Pulse Resp BP Pulse Ox O2 Del Method 08/08/23 12:00 79 20 147/74 H 94 Room Air 08/08/23 08:33 36.6 C 89 22 155/82 H 95 Room Air 08/08/23 02:56 36.7 C 83 18 145/79 H 95 Room Air (5) Anemia Anemia type: unspecified type Qualified Code(s): D64.9 - Anemia, unspecified (6) HTN (hypertension) Hypertension type: primary hypertension Qualified Code(s): I10 - Essential (primary) hypertension (12) Sepsis Acute renal failure type: unspecified Sepsis acute organ dysfunction status: with acute organ dysfunction Sepsis type: sepsis due to unspecified organism Severe sepsis acute organ dysfunction type: acute renal failure Severe sepsis shock status: without septic shock Qualified Code(s): A41.9 - Sepsis, unspecified organism; R65.20 - Severe sepsis without septic shock; N17.9 - Acute kidney failure, unspecified
[2023-08-09 05:57] LABS: Albumin Level 2.6 gm/dl (3.4-5.0); Bilirubin,Total 0.5 mg/dl (0.2-1.0); Calcium 8.1 mg/dl (8.6-10.3); Creatinine Clr Calc Pharmacy 86.4 ml/min; Magnesium 1.7 mg/dl (1.7-2.4); Potassium 3.8 mmol/L (3.5-5.1)
[2023-08-09 06:02] LABS: Albumin Globulin Ratio 0.8 (0.9-2); Est GFR (African American) 104.2 ml/min; Est GFR (Non-African American) 89.9 ml/min; Globulin 3.3 gm/dl (2.5-4.0); Phosphorus 3.6 mg/dl (2.5-4.9); Total Protein 5.9 gm/dl (6.0-8.3)
--- NOTE | 2023-08-09 12:00 | Pharmacy Report ---
Pharmacy Glycemic Short Note 2 - Date of Service August 09, 2023 - Glycemic Short BSG Results (Last 24 hours): 08/08/23 08/08/23 08/09/23 16:11 20:28 04:18 Glucose 138 H POC Glucose 161 H 178 H 08/09/23 08/09/23 07:36 11:39 Glucose POC Glucose 130 H 162 H OUTPATIENT ANTIDIABETIC REGIMEN: * Metformin 1000 mg BIDM * A1c 7.1% 07/26/23 ASSESSMENT: 08/09: * BSGs within goal the last 48h: [id number]/dL. Received 10 units of basal and 8 units of bolus insulin the last 2 days. * Tolerating diet, other stressors stable. * No change- continue current regimen. 08/07 * 23 units SQ admin over last 24 hrs while tolerating diet (consuming 2 of 3 meals yesterday) * Fasting BSG at goal with 10 units basal on board (FBS 138) * Post-prandial BSGs controlled 2 of 3 yesterday. Will continue with current Novolog CR/CF 08/05 * 26 units SQ administered over last 24 hours * BSGs erratic yesterday, possibly due to lack of Novolog with lunch and dinner; as well as the wearing off of steroid effects * Will resume a less dose of basal insulin this AM as fasting BSG elevated with 15 units basal on board. No steroid given in last 24 hrs. Patient was well controlled on metformin monotherapy prior to admission. * Will add carb ratio again today in lesser dose given lack of steroid 08/04 * Patient received total of 39 units of insulin yesterday, of which 15 units were basal * Fasting BSG 158 mg/dL - continued with Lantus 15 this AM * Steroids fell off this morning (didn't receive dose), BSGs trending down at lunch time therefore will remove CR for now to hopefully prevent hypoglycemia PLAN FOR INPATIENT GLYCEMIC CONTROL: * Hold outpatient oral diabetes medications (metformin) * Lantus 10 units qAM * Novolog ACHS or Q 6 hrs if NPO * --Goal BSG Range: Low 110 mg/dL, High 140mg/dL --Correction Factor: 30 mg/dL/unit --Carbohydrate ratio = 12 g/unit
[2023-08-09] MEDS: LORazepam 0.5 MG in SYRINGE 0.25 ML IV STA (15:48)
--- NOTE | 2023-08-09 17:08 | Orthopedic Progress Note ---
Date of Service August 09, 2023 Assessment & Plan (1) Gangrene: Plan: Procedure note I discussed with the patient and family leech therapy. We discussed risks, benefits and reasonable expectations. We discussed possibly of infection and failure to improve. Informed consent was obtained. We placed 3 medical grade leeches on the left upper extremity on the dorsal hand. We placed 1 on the right upper extremity on the dorsal hand, and 1 on the right dorsal foot. Peralta did self applied to the left foot. Will continue to evaluate and will continue leech therapy if indicated. Admission and Anticipated Discharge Date Admission Date: July 26, 2023 Maira Phelan is seen at the bedside today. In the interim I had several discussions with wound care about leech therapy for venous congestion. We do feel this is a reasonable option and we have ordered leeches. Physical Exam Musculoskeletal: Left hand exam shows significant swelling and venous congestion. The remainder the extremities show lesser degrees of venous congestion. All extremities do show gangrene. Results & Data Vital Signs (Past 12 Hours) Vital Signs Temp Pulse Resp BP Pulse Ox O2 Del Method 08/09/23 16:21 152/78 H 08/09/23 16:21 75 25 H 94 Room Air 08/09/23 16:00 148/78 H 08/09/23 16:00 77 20 93 08/09/23 16:00 37.3 C 08/09/23 15:51 72 22 08/09/23 15:51 138/80 08/09/23 15:49 74 08/09/23 15:00 77 20 08/09/23 14:00 157/79 H 08/09/23 14:00 81 18 08/09/23 13:26 148/88 H 08/09/23 13:26 78 20 08/09/23 13:00 79 19 148/88 H 08/09/23 12:00 37 C 08/09/23 12:00 152/91 H 95 Room Air 08/09/23 12:00 74 21 08/09/23 11:00 73 17 08/09/23 10:00 75 21 08/09/23 09:15 84 18 08/09/23 09:00 87 19 08/09/23 08:45 85 20 08/09/23 08:39 81 19 94 Room Air 08/09/23 08:39 170/84 H 08/09/23 08:30 83 17 02/09/24 08:15 84 18 08/09/23 08:00 83 19 08/09/23 08:00 37 C 08/09/23 08:00 80 08/09/23 07:45 79 20 08/09/23 07:30 79 19 08/09/23 07:15 82 18 08/09/23 07:00 82 18
--- NOTE | 2023-08-09 17:22 | Hospitalist Progress Note ---
Date of Service August 09, 2023 Assessment & Plan (1) Gangrene: (2) Atrial fibrillation with rapid ventricular response: (3) Bacteremia: (4) Acute encephalopathy: (5) Anemia: (6) HTN (hypertension): (7) Septic shock: (8) Acute kidney injury: (9) Complicated urinary tract infection: (10) Hydronephrosis due to obstruction of ureter: (11) Ureterolithiasis: (12) Sepsis: Plan Pt is a 73yoF with PMHx significant for HTN, HLD, T2DM, HCV status posttreatment, anxiety/mood disorder who presented with confusion and right flank pain. Has had a complicated course that included severe sepsis in the setting of obstructive uropathy and complicated UTI, requiring pressor support and subsequent development of acrocyanosis with gangrene in her extremities. Complicated UTI Urolithiasis and obstructive uropathy Urosepsis Severe sepsis POA: Secondary to above. Respiratory rate/pulse rate/WBC elevated at presentation. Lactate and procalcitonin elevated at presentation. UA suggestive of infection, 07/26 Urine Cx - K Pneumoniae 07/25 Bl Cx x2 - grew K. Pneumoniae Repeat Blood Cx x2 with NGTD Septic shock: Patient's blood pressure did not improve despite aggressive fluid resuscitation, was transferred to ICU for pressor support on admission. Likely metabolic encephalopathy: Secondary to above Gram-negative bacteremia: 07/25 blood cultures x2 positive for Klebsiella pneumoniae. Repeat blood culture 07/27 no growth to date. Urology evaluated, status post cystoscopy and right retrograde pyelogram/right ureteral stent placement 07/26/2023 Patient was started on cefepime 07/26, to ceftriaxone 07/27, d/w ID 07/28 - agreed w/ Rx. Continue. CTAP repeated 07/29 for concern of perinephric abscess, which was ruled out. Pt was treated with Cefepime or Ceftriaxone for a total of 14 days. Acrocyanosis Gangrene Acute CVA Patient had developed acrocyanosis and nasal tip cyanosis overnight on 07/26- 07/27. Patient has been off of pressor support [vasopressin and Levophed] from 07/26. 07/27 - Duplex arterial scan of UE and LE WNL. Venous Doppler BLE negative for DVT. Patient was started on heparin drip and Solu-Medrol for concern of cryoglobulinemia. 07/28 - acrocyanosis progressed. Discussed with various subspecialties including rheumatology/hematology/transformation specialist. Peripheral blood smear with no schistocytes. TTP HUS ruled out. DIC from sepsis versus ischemic necrosis from recent pressor use was contemplated on differential diagnosis for acrocyanosis. Patient was transferred to ICU and was intubated due to tachypnea/shallow breathing. She also developed a fever, and was started on vancomycin/acyclovir/ampicillin on top of Rocephin for possible encephalitis versus meningitis. Lumbar puncture was deferred due to dropping platelets. MRI brain was obtained which revealed punctate right occipital lobe lacunar infarct. ANAHI screen was negative. PF4 antibody negative --HIT ruled out. Again no schistocytes noted on peripheral smearTTP HUS ruled out Haptoglobin within normal limits Patient was extubated on August Platelets improved as well. 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 Orthopedic consulted for possible debridement/surgical treatment. Seen by orthopedic on August 02, 2023 and August 04, 2023; do not recommend amputation at this point in time. Recommended allowing for gangrene to fully demarcate to determine what requires amputation and what can be salvaged. Orthopedics re-consulted on 08/08- appreciate recs -recommended waiting for further delineation which can take a few weeks, can be done electively. However pt needs monitoring for signs of infection -podiatry consult for lower extremity evaluation 08/09- Pt underwent leech therapy with orthopedics, per wound care recommendations (see ortho procedure note from same date). Received 0.5mg Ativan to help with anxiety during the process. Per ortho, will need abx coverage in the form of cipro 500mg BID, ordered. Appreciate recs. New onset anemia Likely UGIB Prior hemoglobin level 13.9, admitting hemoglobin 11.1 Hemoccult positive melanotic stool noted at the ER GI evaluated 07/26, PPI drip changed to twice daily. Monitor H&H and transfuse as needed. Will likely need follow-up with GI as an outpatient. Hemoglobin down to 6.3 on 08/06; transfused 2 units- currently stable and increasing to 9 Monitor daily CBC Atrial fibrillation with RVR Demand ischemia Patient developed atrial fibrillation with RVR on July 30, 2023 Echocardiogram from 07/26 shows EF of 50 to 55% with mild concentric LVH. 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 Also on digoxin. Plan to transition to Cardizem 180 mg daily at discharge and reducing metoprolol to 25 mg once daily at discharge. Continue on Lovenox for anticoagulation. Plan to transition over to Coumadin after surgical interventions by orthopedics. Appreciate Cardiology recs Acute on chronic diastolic CHF: Chest x-ray from 08/01 showed pulmonary edema Echocardiogram as above Diuresis with IV Lasix 40 mg twice daily Continue IV diuretics as needed to get negative balance. Right occipital lobe lacunar infarct: Head and neck imaging with 07/29 MRI w/ punctate right occipital lobe lacunar infarct. Neurology previously consulted Continue statin Acute kidney injury-resolved: Admitting creatinine of 1.6, past creatinine 0.89. Status post IV fluid, s/p pressor support. Likely prerenal secondary to septic shock. Improvement with IV hydration Acute metabolic encephalopathy- resolved Acute fever-resolved Thrombocytopenia- resolved Other chronic medical conditions: Continue with/resume home meds as and when able. Hypertension, continue on lisinopril. hyperlipidemia, on statin Rx. Continue DM2 on oral medications, reasonable control as of recent hemoglobin A1c of 7.1 last March 2023 HCV status post Rx Recent COVID-19 illness from 2 weeks ago, monitor respiratory symptoms. Diet: HH/DMII, minced and moist CODE STATUS: Full code DVT prophylaxis: Lovenox Dispo: Pt accepted at [facility]- Patient has poor peripheral vascular access with only 1 peripheral IV access. PICC line consent was obtained from the daughter; unable to place as per vascular team due to poor access. Patient currently has right IJ central line. Discussed with nursing to attempt peripheral IV line placement. Removal of central line after placement of other IV access. Contact: chintan Estrlela ([phone]) Admission and Anticipated Discharge Date Admission Date: July 26, 2023 Subjective Pt is seen multiple times. AAOx1. Originally denied concerns. Later at bedside during leech therapy/application by Orthopedics. Review of Systems Review of Systems: All systems reviewed & are unremarkable except as noted in Subjective Physical Exam Physical Exam: General: Alert. No acute distress Skin: blackened hands and feet, noted bullae Psych: Appropriate mood and affect Neuro: left arm weak, unable to move HEENT: NC/AT Chest: Nontender to palpation. CV: RRR Resp:no increased effort of breathing Abdomen: Soft Extremities: blackened hands and feet Results & Data Results & Data Vital Signs (Past 12 Hours) Vital Signs Temp Pulse Resp BP Pulse Ox O2 Del Method 08/09/23 16:21 152/78 H 08/09/23 16:21 75 25 H 94 Room Air 08/09/23 16:00 148/78 H 08/09/23 16:00 77 20 93 08/09/23 16:00 37.3 C 08/09/23 15:51 72 22 08/09/23 15:51 138/80 08/09/23 15:49 74 08/09/23 15:00 77 20 08/09/23 14:00 157/79 H 08/09/23 14:00 81 18 08/09/23 13:26 148/88 H 08/09/23 13:26 78 20 08/09/23 13:00 79 19 148/88 H 08/09/23 12:00 37 C 08/09/23 12:00 152/91 H 95 Room Air 08/09/23 12:00 74 21 08/09/23 11:00 73 17 08/09/23 10:00 75 21 08/09/23 09:15 84 18 08/09/23 09:00 87 19 08/09/23 08:45 85 20 08/09/23 08:39 81 19 94 Room Air 08/09/23 08:39 170/84 H 08/09/23 08:30 83 17 08/09/23 08:15 84 18 08/09/23 08:00 83 19 08/09/23 08:00 37 C 08/09/23 08:00 80 08/09/23 07:45 79 20 08/09/23 07:30 79 19 08/09/23 07:15 82 18 08/09/23 07:00 82 18 (5) Anemia Anemia type: unspecified type Qualified Code(s): D64.9 - Anemia, unspecified (6) HTN (hypertension) Hypertension type: primary hypertension Qualified Code(s): I10 - Essential (primary) hypertension (12) Sepsis Acute renal failure type: unspecified Sepsis acute organ dysfunction status: with acute organ dysfunction Sepsis type: sepsis due to unspecified organism Severe sepsis acute organ dysfunction type: acute renal failure Severe sepsis shock status: without septic shock Qualified Code(s): A41.9 - Sepsis, unspecified organism; R65.20 - Severe sepsis without septic shock; N17.9 - Acute kidney failure, unspecified
[2023-08-09] MEDS: CIPROFLOXACIN 500 MG TAB PO SCH (22:29)
[2023-08-10 04:25] LABS: Basophils # (auto) 0.02 K/uL (0.00-0.20); Basophils % (auto) 0.2 %; Eosinophils # (auto) 0.05 K/uL (0.00-0.50); Eosinophils % (auto) 0.5 %; Hematocrit (blood only) 28.2 % (37.0-47.0); Hemoglobin 9.1 g/dl (12.0-16.0); Immature Granulocytes # (auto) 0.11 K/uL (0.01-0.20); Immature Granulocytes % (auto) 1.2 %; Lymphocytes # (auto) 0.95 K/uL (1.20-3.40); Lymphocytes % (auto) 10.2 %; Mean Corpuscular Hemoglobin 29.4 pg (25.0-34.0); Mean Corpuscular Hgb Conc 32.3 g/dL (32.0-36.0); Mean Corpuscular Volume 91.3 fL (80.0-100.0); Mean Platelet Volume 10.2 fL (9.4-12.4); Monocytes # (auto) 0.76 K/uL (0.11-0.59); Monocytes % (auto) 8.2 %; Neutrophils # (auto) 7.41 K/uL (1.40-6.50); Neutrophils % (auto) 79.7 %; Platelet Count 310 K/uL (130-400); RDW Standard Deviation 48.7 fL (36.4-46.3); Red Blood Count 3.09 M/uL (4.20-5.40)
[2023-08-10 04:34] LABS: Albumin Globulin Ratio 0.8 (0.9-2); Albumin Level 2.7 gm/dl (3.4-5.0); BUN Creatinine Ratio 22.4 (10-20); Bilirubin,Total 0.5 mg/dl (0.2-1.0); Calcium 8.1 mg/dl (8.6-10.3); Creatinine Clr Calc Pharmacy 91.5 ml/min; Est GFR (Non-African American) 91.4 ml/min; Globulin 3.2 gm/dl (2.5-4.0); Magnesium 1.6 mg/dl (1.7-2.4); Phosphorus 4.3 mg/dl (2.5-4.9); Potassium 3.6 mmol/L (3.5-5.1); Total Protein 5.9 gm/dl (6.0-8.3)
[2023-08-10 04:39] LABS: Prothrombin Time 11.4 Seconds (9.0-12.0)
[2023-08-10] MEDS: lisinopril 20 MG TAB PO SCH (08:16)
--- NOTE | 2023-08-10 09:09 | Hospitalist Progress Note ---
Date of Service August 10, 2023 Assessment & Plan (1) Gangrene: (2) Atrial fibrillation with rapid ventricular response: (3) Bacteremia: (4) Acute encephalopathy: (5) Anemia: (6) HTN (hypertension): (7) Septic shock: (8) Acute kidney injury: (9) Complicated urinary tract infection: (10) Hydronephrosis due to obstruction of ureter: (11) Ureterolithiasis: (12) Sepsis: Plan Pt is a 73yoF with PMHx significant for HTN, HLD, T2DM, HCV status posttreatment, anxiety/mood disorder who presented with confusion and right flank pain. Has had a complicated course that included severe sepsis in the setting of obstructive uropathy and complicated UTI, requiring pressor support and subsequent development of acrocyanosis with gangrene in her extremities. Complicated UTI Urolithiasis and obstructive uropathy Urosepsis Severe sepsis POA: Secondary to above. Respiratory rate/pulse rate/WBC elevated at presentation. Lactate and procalcitonin elevated at presentation. UA suggestive of infection, 07/26 Urine Cx - K Pneumoniae 07/25 Bl Cx x2 - grew K. Pneumoniae Repeat Blood Cx x2 with NGTD Septic shock: Patient's blood pressure did not improve despite aggressive fluid resuscitation, was transferred to ICU for pressor support on admission. Likely metabolic encephalopathy: Secondary to above Gram-negative bacteremia: 07/25 blood cultures x2 positive for Klebsiella pneumoniae. Repeat blood culture 07/27 no growth to date. Urology evaluated, status post cystoscopy and right retrograde pyelogram/right ureteral stent placement 07/26/2023 Patient was started on cefepime 07/26, to ceftriaxone 07/27, d/w ID 07/28 - agreed w/ Rx. Continue. CTAP repeated 07/29 for concern of perinephric abscess, which was ruled out. Pt was treated with Cefepime or Ceftriaxone for a total of 14 days. Acrocyanosis Gangrene Acute CVA Patient had developed acrocyanosis and nasal tip cyanosis overnight on 07/26- 07/27. Patient has been off of pressor support [vasopressin and Levophed] from 07/26. 07/27 - Duplex arterial scan of UE and LE WNL. Venous Doppler BLE negative for DVT. Patient was started on heparin drip and Solu-Medrol for concern of cryoglobulinemia. 07/28 - acrocyanosis progressed. Discussed with various subspecialties including rheumatology/hematology/senior resident care director. Peripheral blood smear with no schistocytes. TTP HUS ruled out. DIC from sepsis versus ischemic necrosis from recent pressor use was contemplated on differential diagnosis for acrocyanosis. Patient was transferred to ICU and was intubated due to tachypnea/shallow breathing. She also developed a fever, and was started on vancomycin/acyclovir/ampicillin on top of Rocephin for possible encephalitis versus meningitis. Lumbar puncture was deferred due to dropping platelets. MRI brain was obtained which revealed punctate right occipital lobe lacunar infarct. ANAHI screen was negative. PF4 antibody negative --HIT ruled out. Again no schistocytes noted on peripheral smearTTP HUS ruled out Haptoglobin within normal limits Patient was extubated on August Platelets improved as well. 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 Orthopedic consulted for possible debridement/surgical treatment. Seen by orthopedic on August 02, 2023 and August 04, 2023; do not recommend amputation at this point in time. Recommended allowing for gangrene to fully demarcate to determine what requires amputation and what can be salvaged. Orthopedics re-consulted on 08/08- appreciate recs -recommended waiting for further delineation which can take a few weeks, can be done electively. However pt needs monitoring for signs of infection -podiatry consult for lower extremity evaluation 08/09- Pt underwent leech therapy with orthopedics, per wound care recommendations (see ortho procedure note from same date). Received 0.5mg Ativan to help with anxiety during the process. Per ortho, will need abx coverage in the form of cipro 500mg BID, ordered. Appreciate recs. 08/10- Repeat leech therapy done by ortho. Continue with ordered cipro. Standing order for prn Ativan for leech therapy related anxiety placed. Appreciate ortho and wound recs. Consider ENT consult for similar nasal changes. New onset anemia Likely UGIB Prior hemoglobin level 13.9, admitting hemoglobin 11.1 Hemoccult positive melanotic stool noted at the ER GI evaluated 07/26, PPI drip changed to twice daily. Monitor H&H and transfuse as needed. Will likely need follow-up with GI as an outpatient. Hemoglobin down to 6.3 on 08/06; transfused 2 units- currently stable and increasing to 9 Monitor daily CBC Atrial fibrillation with RVR Demand ischemia Patient developed atrial fibrillation with RVR on July 30, 2023 Echocardiogram from 07/26 shows EF of 50 to 55% with mild concentric LVH. 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 Also on digoxin. Plan to transition to Cardizem 180 mg daily at discharge and reducing metoprolol to 25 mg once daily at discharge. Continue on Lovenox for anticoagulation. Plan to transition over to Coumadin after surgical interventions by orthopedics. Appreciate Cardiology recs Acute on chronic diastolic CHF: Chest x-ray from 08/01 showed pulmonary edema Echocardiogram as above Diuresis with IV Lasix 40 mg twice daily Continue IV diuretics as needed to get negative balance. Right occipital lobe lacunar infarct: Head and neck imaging with 07/29 MRI w/ punctate right occipital lobe lacunar infarct. Neurology previously consulted Continue statin Acute kidney injury-resolved: Admitting creatinine of 1.6, past creatinine 0.89. Status post IV fluid, s/p pressor support. Likely prerenal secondary to septic shock. Improvement with IV hydration Acute metabolic encephalopathy- resolved Acute fever-resolved Thrombocytopenia- resolved Other chronic medical conditions: Continue with/resume home meds as and when able. Hypertension, continue on lisinopril. hyperlipidemia, on statin Rx. Continue DM2 on oral medications, reasonable control as of recent hemoglobin A1c of 7.1 last March 2023 HCV status post Rx Recent COVID-19 illness from 2 weeks ago, monitor respiratory symptoms. Diet: HH/DMII, minced and moist CODE STATUS: Full code DVT prophylaxis: Lovenox Dispo: Pt accepted at [facility]- Patient has poor peripheral vascular access with only 1 peripheral IV access. PICC line consent was obtained from the daughter; unable to place as per vascular team due to poor access. Patient currently has right IJ central line. Discussed with nursing to attempt peripheral IV line placement. Removal of central line after placement of other IV access. Contact: daughter Delores ([phone]) Admission and Anticipated Discharge Date Admission Date: July 26, 2023 Subjective Pt was seen in the AM before her leech therapy. Confused, believed the leeches were still on her.. Review of Systems Review of Systems: All systems reviewed & are unremarkable except as noted in Subjective Physical Exam Physical Exam: General: Alert. No acute distress Skin: blackened hands and feet, noted bullae Psych: Appropriate mood and affect Neuro: left arm weak, unable to move HEENT: NC/AT Chest: Nontender to palpation. CV: RRR Resp:no increased effort of breathing Abdomen: Soft Extremities: blackened hands and feet Results & Data Results & Data Vital Signs (Past 12 Hours) Vital Signs Temp Pulse Resp BP Pulse Ox 08/10/23 03:42 36.8 C 08/10/23 03:00 152/73 H 08/10/23 03:00 77 18 93 08/09/23 23:37 36.8 C 08/09/23 23:09 71 08/09/23 23:00 72 18 94 08/09/23 23:00 142/68 H (5) Anemia Anemia type: unspecified type Qualified Code(s): D64.9 - Anemia, unspecified (6) HTN (hypertension) Hypertension type: primary hypertension Qualified Code(s): I10 - Essential (primary) hypertension (12) Sepsis Acute renal failure type: unspecified Sepsis acute organ dysfunction status: with acute organ dysfunction Sepsis type: sepsis due to unspecified organism Severe sepsis acute organ dysfunction type: acute renal failure Severe sepsis shock status: without septic shock Qualified Code(s): A41.9 - Sepsis, unspecified organism; R65.20 - Severe sepsis without septic shock; N17.9 - Acute kidney failure, unspecified
[2023-08-10] MEDS: MAGNESIUM CHLORIDE W/CALCIUM 64MG DELAYED REL TAB PO SCH (10:06)
[2023-08-10] MEDS: MAGNESIUM SULFATE / D5W 1 GM/100 ML BAG IV SCH (10:06)
--- NOTE | 2023-08-10 11:04 | Orthopedic Progress Note ---
Date of Service August 10, 2023 Assessment & Plan (1) Gangrene: Plan: Plan will continue leech therapy. With the aid of wound care nurse I placed 5 leeches on the left upper extremity, 1 bleach on the right upper extremity and 1 L on the right lower extremity. Will plan for additional leech treatment tomorrow. Admission and Anticipated Discharge Date Admission Date: July 26, 2023 Maira Phelan is seen at the bedside today. She is status post leech therapy today. She verbalizes no new complaints Physical Exam Musculoskeletal: Left upper extremity exam: She does exhibit less swelling and venous congestion in the left hand compared to prior to recheck therapy starting. Likewise left foot shows decrease in edema as well. She has no evidence of active infection. Results & Data Vital Signs (Past 12 Hours) Vital Signs Temp Pulse Resp BP Pulse Ox 08/10/23 09:00 121/83 08/10/23 09:00 87 19 93 08/10/23 08:01 92 H 19 96 08/10/23 08:01 135/75 08/10/23 08:00 87 08/10/23 08:00 87 20 95 08/10/23 07:01 93 H 19 95 08/10/23 07:01 202/99 H 08/10/23 07:00 97 H 16 94 08/10/23 03:42 36.8 C 08/10/23 03:00 152/73 H 08/10/23 03:00 77 18 93 08/09/23 23:37 36.8 C 08/09/23 23:09 71
[2023-08-10] MEDS ORDERED: LORazepam 0.5 MG in SYRINGE 0.25 ML IV PRN (16:08)
--- NOTE | 2023-08-10 22:43 | Surgery Consultation ---
Date of Consultation August 10, 2023 Assessment & Plan (1) Gangrene: Patient seen and evaluated in ICU 108. Patient shows necrosis at the distal aspect of right and left foot. Agree with previous consultation by Dr. Lay to delay definitive treatment until the necrosis clearly delineates over several weeks. The area is diffuse and has not yet delineated. There is no active infection, and there is no urgency to this surgical treatment. Patient is from [place] and I did discuss possible discharge then surgical intervention done on elective basis unless she develops obvious infection, which currently is not present. Plan is to await tissue delineation, and patient becomes more stable, and back to her baseline mental status where she can participate in the decision-making process. Thank you for allowing me to participate in the care of this Patient. Will continue to follow while in house. History of Present Illness Attending Physician: Indiana Ojeda MD History of Present Illness Patient is a 73 year-old female seen at bedside in ICU E210-1 for bilateral gangrene to extremities after septic shock treatment. Documentation was obtained from prior records. Patient has a past medical history significant for HTN, HLD, type II diabetes, UTI, and right hydronephrosis with ureteral stone s/p ureteral stent. Patient presented with encephalopathy and was found to have septic shock requiring vasopressor support. Possible DIC resulted in necrosis of extremities. Patient seen in presence of Dr. Lay who is administering leech therapy. Allergies Allergy/AdvReac Type Severity Reaction Status Date / Time No Known Allergies Allergy Verified 07/25/23 19:50 Home Medications Medication Instructions Recorded Confirmed Type lisinopril 10 mg tablet 10 mg PO QAM 11/14/20 07/25/23 History atorvastatin 40 mg tablet 40 mg PO QAM 07/25/23 07/25/23 History calcium carbonate 1,000 mg-vitamin 1 tab PO DAILY 07/25/23 07/25/23 History D3 20 mcg (800 unit) tablet cyanocobalamin (vitamin B-12) 1,000 mcg PO QAM 07/25/23 07/25/23 History 1,000 mcg tablet ibandronate 150 mg tablet 150 mg PO .EVERY 30 DAYS 07/25/23 07/25/23 History metformin 1,000 mg tablet 1,000 mg PO BIDWMEAL 07/25/23 07/25/23 History venlafaxine 150 mg 150 mg PO DAILY 07/25/23 07/25/23 History capsule,extended release 24 hr Patient History Medical History Fever 41 degrees C or over Acute encephalopathy History of COVID-19 History of colon polyps Anxiety HTN (hypertension) Surgical History S/P wrist surgery History of colonoscopy History of hysterectomy History of tonsillectomy Family History Grandmother Family history of diabetes mellitus Family history of colon cancer Grandfather Family history of colon cancer Aunt Family history of colon cancer Uncle Family history of colon cancer Social History Smoking Status: Current some day smoker Tobacco Type: Cigarettes Second Hand Exposure: No; Do You Dip or Chew Tobacco: No; Hx Alcohol Use: No Hx Substance Use: No Preferred Language: Spanish Communication Ability: Effective Buckle Gluer Required: No Beliefs That Will Affect Care: None Current Living Situation: Family Current Living Situation Comment: Pt's grandsonIlir lives with her Feels Safe at Home: Yes Assistive Devices: None Physical Exam Physical Exam: Patient is does not communicate verbally. She does initially make eye contact a nd head gestures. She is currently in the ICU. Examination of bilateral lower extremities reveals necrosis at the distal tips of all 10 toes extending to the mid tarsals. There is clear areas of dry gangrene at the distal tips of digits. There is diffuse area of congestion, ecchymosis, and swelling at the distal aspect of all 4 extremities. The right foot appears worse than the left foot. No evidence of infection. Results & Data Vital Signs (Past 12 Hours) Vital Signs Temp Pulse Pulse Resp BP BP Pulse Ox 08/10/23 21:35 08/10/23 20:39 37.1 C 81 16 174/81 H 95 08/10/23 16:36 77 08/10/23 16:00 36.6 C 76 18 153/72 H 97 O2 Del Method 08/10/23 21:35 Room Air 08/10/23 20:39 Room Air 08/10/23 16:36 08/10/23 16:00 Room Air
[2023-08-11] MEDS: ACETAMINOPHEN SUSP 500 MG/15.6 ML UDP PO PRN (02:37)
[2023-08-11 07:13] LABS: Basophils # (auto) 0.01 K/uL (0.00-0.20); Basophils % (auto) 0.1 %; Eosinophils # (auto) 0.05 K/uL (0.00-0.50); Eosinophils % (auto) 0.7 %; Hematocrit (blood only) 25.9 % (37.0-47.0); Hemoglobin 8.7 g/dl (12.0-16.0); Immature Granulocytes # (auto) 0.06 K/uL (0.01-0.20); Immature Granulocytes % (auto) 0.8 %; Lymphocytes # (auto) 0.96 K/uL (1.20-3.40); Lymphocytes % (auto) 12.8 %; Mean Corpuscular Hgb Conc 33.6 g/dL (32.0-36.0); Mean Corpuscular Volume 89.3 fL (80.0-100.0); Mean Platelet Volume 9.8 fL (9.4-12.4); Monocytes % (auto) 9.3 %; Neutrophils # (auto) 5.74 K/uL (1.40-6.50); Neutrophils % (auto) 76.3 %; Platelet Count 278 K/uL (130-400); RDW Coefficient of Variation 15.1 % (11.5-14.5); RDW Standard Deviation 48.7 fL (36.4-46.3); White Blood Count 7.52 K/ul (4.8-10.8)
[2023-08-11 07:39] LABS: Albumin Globulin Ratio 0.8 (0.9-2); Albumin Level 2.6 gm/dl (3.4-5.0); BUN Creatinine Ratio 22.2 (10-20); Bilirubin,Total 0.4 mg/dl (0.2-1.0); Creatinine Clr Calc Pharmacy 82.8 ml/min; Est GFR (African American) 103.1 ml/min; Globulin 3.1 gm/dl (2.5-4.0); Magnesium 1.9 mg/dl (1.7-2.4); Phosphorus 4.1 mg/dl (2.5-4.9); Potassium 3.5 mmol/L (3.5-5.1); Total Protein 5.7 gm/dl (6.0-8.3)
--- NOTE | 2023-08-11 11:48 | Hospitalist Progress Note ---
Date of Service August 11, 2023 Assessment & Plan (1) Gangrene: (2) Atrial fibrillation with rapid ventricular response: (3) Bacteremia: (4) Acute encephalopathy: (5) Anemia: (6) HTN (hypertension): (7) Septic shock: (8) Acute kidney injury: (9) Complicated urinary tract infection: (10) Hydronephrosis due to obstruction of ureter: (11) Ureterolithiasis: (12) Sepsis: Plan Pt is a 73yoF with PMHx significant for HTN, HLD, T2DM, HCV status posttreatment, anxiety/mood disorder who presented with confusion and right flank pain. Has had a complicated course that included severe sepsis in the setting of obstructive uropathy and complicated UTI, requiring pressor support and subsequent development of acrocyanosis with gangrene in her extremities. Complicated UTI Urolithiasis and obstructive uropathy Urosepsis Severe sepsis POA: Secondary to above. Respiratory rate/pulse rate/WBC elevated at presentation. Lactate and procalcitonin elevated at presentation. UA suggestive of infection, 07/26 Urine Cx - K Pneumoniae 07/25 Bl Cx x2 - grew K. Pneumoniae Repeat Blood Cx x2 with NGTD Septic shock: Patient's blood pressure did not improve despite aggressive fluid resuscitation, was transferred to ICU for pressor support on admission. Likely metabolic encephalopathy: Secondary to above Gram-negative bacteremia: 07/25 blood cultures x2 positive for Klebsiella pneumoniae. Repeat blood culture 07/27 no growth to date. Urology evaluated, status post cystoscopy and right retrograde pyelogram/right ureteral stent placement 07/26/2023 Patient was started on cefepime 07/26, to ceftriaxone 07/27, d/w ID 07/28 - agreed w/ Rx. Continue. CTAP repeated 07/29 for concern of perinephric abscess, which was ruled out. Pt was treated with Cefepime or Ceftriaxone for a total of 14 days. Transitioned to ciprofloxacin om 08/09 (see below) Acrocyanosis Gangrene Acute CVA Patient had developed acrocyanosis and nasal tip cyanosis overnight on 07/26- 07/27. Patient has been off of pressor support [vasopressin and Levophed] from 07/26. 07/27 - Duplex arterial scan of UE and LE WNL. Venous Doppler BLE negative for DVT. Patient was started on heparin drip and Solu-Medrol for concern of cryoglobulinemia. 1/28 - acrocyanosis progressed. Discussed with various subspecialties including rheumatology/hematology/watchguard. Peripheral blood smear with no schistocytes. TTP HUS ruled out. DIC from sepsis versus ischemic necrosis from recent pressor use was contemplated on differential diagnosis for acrocyanosis. Patient was transferred to ICU and was intubated due to tachypnea/shallow breathing. She also developed a fever, and was started on vancomycin/acyclovir/ampicillin on top of Rocephin for possible encephalitis versus meningitis. Lumbar puncture was deferred due to dropping platelets. MRI brain was obtained which revealed punctate right occipital lobe lacunar infarct. ANAHI screen was negative. PF4 antibody negative --HIT ruled out. Again no schistocytes noted on peripheral smearTTP HUS ruled out Haptoglobin within normal limits Patient was extubated on August Platelets improved as well. 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 Orthopedic consulted for possible debridement/surgical treatment. Seen by orthopedic on August 02, 2023 and August 04, 2023; do not recommend amputation at this point in time. Recommended allowing for gangrene to fully demarcate to determine what requires amputation and what can be salvaged. Orthopedics re-consulted on 08/08- appreciate recs -recommended waiting for further delineation which can take a few weeks, can be done electively. However pt needs monitoring for signs of infection -podiatry consult for lower extremity evaluation 08/09- Pt underwent leech therapy with orthopedics, per wound care recommendations (see ortho procedure note from same date). Received 0.5mg Ativan to help with anxiety during the process. Per ortho, will need abx coverage in the form of cipro 500mg BID, ordered. Appreciate recs. 08/10- Repeat leech therapy done by ortho. Continue with ordered cipro. Standing order for prn Ativan for leech therapy related anxiety placed. Appreciate ortho and wound recs. Consider ENT consult for similar nasal changes. 08/11- Continue leech therapy, cipro. Appreciate ortho recs, adding fern OT. Appreciate podiatry recs, similar to ortho recs. Daughter updated, notes that her nose lesion started the day after admission. New onset anemia Likely UGIB Prior hemoglobin level 13.9, admitting hemoglobin 11.1 Hemoccult positive melanotic stool noted at the ER GI evaluated 07/26, PPI drip changed to twice daily. Monitor H&H and transfuse as needed. Will likely need follow-up with GI as an outpatient. Hemoglobin down to 6.3 on 08/06; transfused 2 units- currently stable and increasing to 9 Monitor daily CBC Atrial fibrillation with RVR Demand ischemia Patient developed atrial fibrillation with RVR on July 30, 2023 Echocardiogram from 07/26 shows EF of 50 to 55% with mild concentric LVH. 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 Also on digoxin. Plan to transition to Cardizem 180 mg daily at discharge and reducing metoprolol to 25 mg once daily at discharge. Continue on Lovenox for anticoagulation. Plan to transition over to Coumadin after surgical interventions by orthopedics. Appreciate Cardiology recs Will transition to warfarin after leech therapy complete. Acute on chronic diastolic CHF: Chest x-ray from 08/01 showed pulmonary edema Echocardiogram as above Diuresis with IV Lasix 40 mg twice daily Continue IV diuretics as needed to get negative balance. Right occipital lobe lacunar infarct: Head and neck imaging with 07/29 MRI w/ punctate right occipital lobe lacunar infarct. Neurology previously consulted Continue statin Acute kidney injury-resolved: Admitting creatinine of 1.6, past creatinine 0.89. Status post IV fluid, s/p pressor support. Likely prerenal secondary to septic shock. Improvement with IV hydration Acute metabolic encephalopathy- resolved Acute fever-resolved Thrombocytopenia- resolved Other chronic medical conditions: Continue with/resume home meds as and when able. Hypertension, continue on lisinopril. hyperlipidemia, on statin Rx. Continue DM2 on oral medications, reasonable control as of recent hemoglobin A1c of 7.1 last March 2023 HCV status post Rx Recent COVID-19 illness from 2 weeks ago, monitor respiratory symptoms. Diet: HH/DMII, minced and moist CODE STATUS: Full code DVT prophylaxis: Lovenox Dispo: Pt accepted at [facility]- Patient has poor peripheral vascular access with only 1 peripheral IV access. PICC line consent was obtained from the daughter; unable to place as per vascular team due to poor access. Patient currently has right IJ central line. Discussed with nursing to attempt peripheral IV line placement. Removal of central line after placement of other IV access. Contact: chintan Estrella ([phone]) Admission and Anticipated Discharge Date Admission Date: July 26, 2023 Subjective Pt was seen laying in bed. Still confused. Daughter called and updated. States that mother was not confused at baseline. Review of Systems Review of Systems: All systems reviewed & are unremarkable except as noted in Subjective Physical Exam Physical Exam: General: Alert. No acute distress Skin: blackened hands and feet, noted bullae Psych: Appropriate mood and affect Neuro: left arm weak, unable to move HEENT: NC/AT Chest: Nontender to palpation. CV: RRR Resp:no increased effort of breathing Abdomen: Soft Extremities: blackened hands and feet Results & Data Results & Data Vital Signs (Past 12 Hours) Vital Signs Temp Pulse Pulse Resp BP Pulse Ox O2 Del Method 08/11/23 11:29 36.6 C 76 16 133/63 95 Room Air 08/11/23 07:22 36.5 C 75 16 157/81 H 91 Room Air 08/11/23 02:28 36.7 C 74 20 151/72 H 95 Room Air 08/11/23 00:35 76 (5) Anemia Anemia type: unspecified type Qualified Code(s): D64.9 - Anemia, unspecified (6) HTN (hypertension) Hypertension type: primary hypertension Qualified Code(s): I10 - Essential (primary) hypertension (12) Sepsis Acute renal failure type: unspecified Sepsis acute organ dysfunction status: with acute organ dysfunction Sepsis type: sepsis due to unspecified organism Severe sepsis acute organ dysfunction type: acute renal failure Severe sepsis shock status: without septic shock Qualified Code(s): A41.9 - Sepsis, unspecified organism; R65.20 - Severe sepsis without septic shock; N17.9 - Acute kidney failure, unspecified
--- NOTE | 2023-08-11 13:21 | Orthopedic Progress Note ---
Date of Service August 11, 2023 Assessment & Plan (1) Gangrene: Plan: Procedure note Leeches were sterilely applied to all 4 extremities. I applied 4 leeches to the left upper extremity, 2 leeches to the right upper extremity, 1 leech to the left lower extremity, and 1 leech to the right lower extremity. She tolerated the procedure well. Will continue leech therapy for now. Will also obtain Danilo pillow for elevation of bilateral extremities. I do feel this is particularly important given some pressure necrosis in the palms. Will also prescribe occupational therapy for range of motion Admission and Anticipated Discharge Date Admission Date: July 26, 2023 Subjective Notes no new complaints. States which application has not been painful. Physical Exam Musculoskeletal: She exhibits no evidence of infection. She shows decreased acral cyanosis in her extremities. She does show some progression of gangrene particularly on the right palm region. Results & Data Vital Signs (Past 12 Hours) Vital Signs Temp Pulse Resp BP Pulse Ox O2 Del Method 08/11/23 11:29 36.6 C 76 16 133/63 95 Room Air 08/11/23 07:22 36.5 C 75 16 157/81 H 91 Room Air 08/11/23 02:28 36.7 C 74 20 151/72 H 95 Room Air
[2023-08-12 06:42] LABS: Basophils # (auto) 0.02 K/uL (0.00-0.20); Basophils % (auto) 0.2 %; Eosinophils # (auto) 0.07 K/uL (0.00-0.50); Eosinophils % (auto) 0.9 %; Hematocrit (blood only) 26.1 % (37.0-47.0); Hemoglobin 8.5 g/dl (12.0-16.0); Immature Granulocytes # (auto) 0.09 K/uL (0.01-0.20); Immature Granulocytes % (auto) 1.1 %; Lymphocytes # (auto) 1.15 K/uL (1.20-3.40); Lymphocytes % (auto) 14.1 %; Mean Corpuscular Hemoglobin 29.3 pg (25.0-34.0); Mean Corpuscular Hgb Conc 32.6 g/dL (32.0-36.0); Monocytes # (auto) 0.66 K/uL (0.11-0.59); Monocytes % (auto) 8.1 %; Neutrophils # (auto) 6.14 K/uL (1.40-6.50); Neutrophils % (auto) 75.6 %; Platelet Count 259 K/uL (130-400); RDW Coefficient of Variation 14.8 % (11.5-14.5); RDW Standard Deviation 47.3 fL (36.4-46.3); White Blood Count 8.13 K/ul (4.8-10.8)
[2023-08-12 06:53] LABS: Albumin Globulin Ratio 0.8 (0.9-2); Albumin Level 2.6 gm/dl (3.4-5.0); BUN Creatinine Ratio 21.3 (10-20); Bilirubin,Total 0.4 mg/dl (0.2-1.0); Calcium 7.9 mg/dl (8.6-10.3); Creatinine Clr Calc Pharmacy 86.4 ml/min; Est GFR (African American) 104.2 ml/min; Est GFR (Non-African American) 89.9 ml/min; Globulin 3.1 gm/dl (2.5-4.0); Magnesium 1.6 mg/dl (1.7-2.4); Phosphorus 4.2 mg/dl (2.5-4.9); Potassium 3.7 mmol/L (3.5-5.1); Total Protein 5.7 gm/dl (6.0-8.3)
[2023-08-12] MEDS: MAGNESIUM SULFATE / D5W 1 GM/100 ML BAG IV SCH (09:32)
--- NOTE | 2023-08-12 12:00 | Pharmacy Report ---
Pharmacy Glycemic Short Note 2 - Date of Service August 12, 2023 - Glycemic Short BSG Results (Last 24 hours): 08/11/23 08/11/23 08/12/23 16:33 20:21 05:59 Glucose 127 H POC Glucose 131 H 157 H 08/12/23 11:39 Glucose POC Glucose 150 H OUTPATIENT ANTIDIABETIC REGIMEN: * Metformin 1000 mg BIDM * A1c 7.1% 07/26/23 ASSESSMENT: 08/10: * Post prandial BSGs elevated slightly on 08/10 prompting a tightening in CR. BSGs have subsequently remained stable over the past 48 hrs: [id number] mg/dL. Patient received 26 units of insulin yesterday, 10 of which were basal. * Continues to tolerate a diet but did not eat breakfast this morning. 08/09: * BSGs within goal the last 48h: [id number]/dL. Received 10 units of basal and 8 units of bolus insulin the last 2 days. * Tolerating diet, other stressors stable. * No change- continue current regimen. 08/07 * 23 units SQ admin over last 24 hrs while tolerating diet (consuming 2 of 3 meals yesterday) * Fasting BSG at goal with 10 units basal on board (FBS 138) * Post-prandial BSGs controlled 2 of 3 yesterday. Will continue with current Novolog CR/CF 08/05 * 26 units SQ administered over last 24 hours * BSGs erratic yesterday, possibly due to lack of Novolog with lunch and dinner; as well as the wearing off of steroid effects * Will resume a less dose of basal insulin this AM as fasting BSG elevated with 15 units basal on board. No steroid given in last 24 hrs. Patient was well controlled on metformin monotherapy prior to admission. * Will add carb ratio again today in lesser dose given lack of steroid 08/04 * Patient received total of 39 units of insulin yesterday, of which 15 units were basal * Fasting BSG 158 mg/dL - continued with Lantus 15 this AM * Steroids fell off this morning (didn't receive dose), BSGs trending down at lunch time therefore will remove CR for now to hopefully prevent hypoglycemia PLAN FOR INPATIENT GLYCEMIC CONTROL: * Hold outpatient oral diabetes medications (metformin) * Lantus 10 units qAM * Novolog ACHS or Q 6 hrs if NPO * --Goal BSG Range: Low 110 mg/dL, High 140mg/dL --Correction Factor: 30 mg/dL/unit --Carbohydrate ratio = 11 g/unit
--- NOTE | 2023-08-12 16:19 | Hospitalist Progress Note ---
Date of Service August 12, 2023 Assessment & Plan (1) Gangrene: (2) Atrial fibrillation with rapid ventricular response: (3) Bacteremia: (4) Acute encephalopathy: (5) Anemia: (6) HTN (hypertension): (7) Septic shock: (8) Acute kidney injury: (9) Complicated urinary tract infection: (10) Hydronephrosis due to obstruction of ureter: (11) Ureterolithiasis: (12) Sepsis: Plan Pt is a 73yoF with PMHx significant for HTN, HLD, T2DM, HCV status posttreatment, anxiety/mood disorder who presented with confusion and right flank pain. Has had a complicated course that included severe sepsis in the setting of obstructive uropathy and complicated UTI, requiring pressor support and subsequent development of acrocyanosis with gangrene in her extremities. Complicated UTI Urolithiasis and obstructive uropathy Urosepsis Severe sepsis POA: Secondary to above. Respiratory rate/pulse rate/WBC elevated at presentation. Lactate and procalcitonin elevated at presentation. UA suggestive of infection, 07/26 Urine Cx - K Pneumoniae 07/25 Bl Cx x2 - grew K. Pneumoniae Repeat Blood Cx x2 with NGTD Septic shock: Patient's blood pressure did not improve despite aggressive fluid resuscitation, was transferred to ICU for pressor support on admission. Likely metabolic encephalopathy: Secondary to above Gram-negative bacteremia: 07/25 blood cultures x2 positive for Klebsiella pneumoniae. Repeat blood culture 07/27 no growth to date. Urology evaluated, status post cystoscopy and right retrograde pyelogram/right ureteral stent placement 07/26/2023 Patient was started on cefepime 07/26, to ceftriaxone 07/27, d/w ID 07/28 - agreed w/ Rx. Continue. CTAP repeated 07/29 for concern of perinephric abscess, which was ruled out. Pt was treated with Cefepime or Ceftriaxone for a total of 14 days. Transitioned to ciprofloxacin om 08/09 (see below) Acrocyanosis Gangrene Acute CVA Patient had developed acrocyanosis and nasal tip cyanosis overnight on 07/26- 07/27. Patient has been off of pressor support [vasopressin and Levophed] from 07/26. 07/27 - Duplex arterial scan of UE and LE WNL. Venous Doppler BLE negative for DVT. Patient was started on heparin drip and Solu-Medrol for concern of cryoglobulinemia. 1/28 - acrocyanosis progressed. Discussed with various subspecialties including rheumatology/hematology/television engineering teacher. Peripheral blood smear with no schistocytes. TTP HUS ruled out. DIC from sepsis versus ischemic necrosis from recent pressor use was contemplated on differential diagnosis for acrocyanosis. Patient was transferred to ICU and was intubated due to tachypnea/shallow breathing. She also developed a fever, and was started on vancomycin/acyclovir/ampicillin on top of Rocephin for possible encephalitis versus meningitis. Lumbar puncture was deferred due to dropping platelets. MRI brain was obtained which revealed punctate right occipital lobe lacunar infarct. ANAHI screen was negative. PF4 antibody negative --HIT ruled out. Again no schistocytes noted on peripheral smearTTP HUS ruled out Haptoglobin within normal limits Patient was extubated on August Platelets improved as well. 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 Orthopedic consulted for possible debridement/surgical treatment. Seen by orthopedic on August 02, 2023 and August 04, 2023; do not recommend amputation at this point in time. Recommended allowing for gangrene to fully demarcate to determine what requires amputation and what can be salvaged. Orthopedics re-consulted on 08/08- appreciate recs -recommended waiting for further delineation which can take a few weeks, can be done electively. However pt needs monitoring for signs of infection -podiatry consult for lower extremity evaluation 08/09- Pt underwent leech therapy with orthopedics, per wound care recommendations (see ortho procedure note from same date). Received 0.5mg Ativan to help with anxiety during the process. Per ortho, will need abx coverage in the form of cipro 500mg BID, ordered. Appreciate recs. 08/10- Repeat leech therapy done by ortho. Continue with ordered cipro. Standing order for prn Ativan for leech therapy related anxiety placed. Appreciate ortho and wound recs. Consider ENT consult for similar nasal changes. 08/11- Continue leech therapy, cipro. Appreciate ortho recs, adding fern OT. Appreciate podiatry recs, similar to ortho recs. Daughter updated, notes that her nose lesion started the day after admission. 08/12- stable New onset anemia Likely UGIB Prior hemoglobin level 13.9, admitting hemoglobin 11.1 Hemoccult positive melanotic stool noted at the ER GI evaluated 07/26, PPI drip changed to twice daily. Monitor H&H and transfuse as needed. Will likely need follow-up with GI as an outpatient. Hemoglobin down to 6.3 on 08/06; transfused 2 units- currently stable and increasing to 9 Monitor daily CBC Atrial fibrillation with RVR Demand ischemia Patient developed atrial fibrillation with RVR on July 30, 2023 Echocardiogram from 07/26 shows EF of 50 to 55% with mild concentric LVH. 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 Also on digoxin. Plan to transition to Cardizem 180 mg daily at discharge and reducing metoprolol to 25 mg once daily at discharge. Continue on Lovenox for anticoagulation. Plan to transition over to Coumadin after surgical interventions by orthopedics. Appreciate Cardiology recs Will transition to warfarin after leech therapy complete. Acute on chronic diastolic CHF: Chest x-ray from 08/01 showed pulmonary edema Echocardiogram as above Diuresis with IV Lasix 40 mg twice daily Continue IV diuretics as needed to get negative balance. Right occipital lobe lacunar infarct: Head and neck imaging with 07/29 MRI w/ punctate right occipital lobe lacunar infarct. Neurology previously consulted Continue statin Acute kidney injury-resolved: Admitting creatinine of 1.6, past creatinine 0.89. Status post IV fluid, s/p pressor support. Likely prerenal secondary to septic shock. Improvement with IV hydration Acute metabolic encephalopathy- resolved Acute fever-resolved Thrombocytopenia- resolved Other chronic medical conditions: Continue with/resume home meds as and when able. Hypertension, continue on lisinopril. hyperlipidemia, on statin Rx. Continue DM2 on oral medications, reasonable control as of recent hemoglobin A1c of 7.1 last March 2023 HCV status post Rx Recent COVID-19 illness from 2 weeks ago, monitor respiratory symptoms. Diet: HH/DMII, minced and moist CODE STATUS: Full code DVT prophylaxis: Lovenox Dispo: Pt accepted at [facility]- Patient has poor peripheral vascular access with only 1 peripheral IV access. PICC line consent was obtained from the daughter; unable to place as per vascular team due to poor access. Patient currently has right IJ central line. Discussed with nursing to attempt peripheral IV line placement. Removal of central line after placement of other IV access. Contact: chintan Estrella ([phone]) Admission and Anticipated Discharge Date Admission Date: July 26, 2023 Subjective Pt seen with sister and other family at bedside. Family updated. Pt denies acute concerns. AAOx2. Review of Systems Review of Systems: All systems reviewed & are unremarkable except as noted in Subjective Physical Exam Physical Exam: General: Alert. No acute distress Skin: blackened hands and feet, noted bullae Psych: Appropriate mood and affect Neuro: left arm weak, unable to move HEENT: NC/AT Chest: Nontender to palpation. CV: RRR Resp:no increased effort of breathing Abdomen: Soft Extremities: blackened hands and feet Results & Data Results & Data Vital Signs (Past 12 Hours) Vital Signs Temp Pulse Pulse Resp BP Pulse Ox O2 Del Method 08/12/23 15:47 36.7 C 79 19 141/71 H 96 Room Air 08/12/23 11:38 36.3 C L 75 16 137/63 94 Room Air 08/12/23 07:00 36.8 C 80 18 150/78 H 97 Room Air (5) Anemia Anemia type: unspecified type Qualified Code(s): D64.9 - Anemia, unspecified (6) HTN (hypertension) Hypertension type: primary hypertension Qualified Code(s): I10 - Essential (primary) hypertension (12) Sepsis Acute renal failure type: unspecified Sepsis acute organ dysfunction status: with acute organ dysfunction Sepsis type: sepsis due to unspecified organism Severe sepsis acute organ dysfunction type: acute renal failure Severe sepsis shock status: without septic shock Qualified Code(s): A41.9 - Sepsis, unspecified organism; R65.20 - Severe sepsis without septic shock; N17.9 - Acute kidney failure, unspecified
[2023-08-13 06:36] LABS: Basophils # (auto) 0.02 K/uL (0.00-0.20); Basophils % (auto) 0.3 %; Eosinophils # (auto) 0.06 K/uL (0.00-0.50); Eosinophils % (auto) 0.8 %; Hemoglobin 8.6 g/dl (12.0-16.0); Immature Granulocytes # (auto) 0.07 K/uL (0.01-0.20); Immature Granulocytes % (auto) 0.9 %; Lymphocytes # (auto) 1.01 K/uL (1.20-3.40); Lymphocytes % (auto) 13.1 %; Mean Corpuscular Hemoglobin 29.5 pg (25.0-34.0); Mean Corpuscular Hgb Conc 31.9 g/dL (32.0-36.0); Mean Corpuscular Volume 92.5 fL (80.0-100.0); Mean Platelet Volume 9.6 fL (9.4-12.4); Monocytes # (auto) 0.59 K/uL (0.11-0.59); Monocytes % (auto) 7.6 %; Neutrophils # (auto) 5.98 K/uL (1.40-6.50); Neutrophils % (auto) 77.3 %; Platelet Count 221 K/uL (130-400); RDW Coefficient of Variation 14.7 % (11.5-14.5); Red Blood Count 2.92 M/uL (4.20-5.40); White Blood Count 7.73 K/ul (4.8-10.8)
[2023-08-13 07:06] LABS: Est GFR (African American) 107.2 ml/min; Est GFR (Non-African American) 92.5 ml/min; Potassium 3.9 mmol/L (3.5-5.1)
[2023-08-13 07:07] LABS: Albumin Globulin Ratio 0.8 (0.9-2); Albumin Level 2.6 gm/dl (3.4-5.0); BUN Creatinine Ratio 26.8 (10-20); Bilirubin,Total 0.4 mg/dl (0.2-1.0); Creatinine Clr Calc Pharmacy 93.5 ml/min; Globulin 3.2 gm/dl (2.5-4.0); Magnesium 1.8 mg/dl (1.7-2.4); Phosphorus 3.8 mg/dl (2.5-4.9); Total Protein 5.8 gm/dl (6.0-8.3)
--- NOTE | 2023-08-13 14:59 | Hospitalist Progress Note ---
Date of Service August 13, 2023 Assessment & Plan (1) Gangrene: (2) Atrial fibrillation with rapid ventricular response: (3) Bacteremia: (4) Acute encephalopathy: (5) Anemia: (6) HTN (hypertension): (7) Septic shock: (8) Acute kidney injury: (9) Complicated urinary tract infection: (10) Hydronephrosis due to obstruction of ureter: (11) Ureterolithiasis: (12) Sepsis: Plan Pt is a 73yoF with PMHx significant for HTN, HLD, T2DM, HCV status posttreatment, anxiety/mood disorder who presented with confusion and right flank pain. Has had a complicated course that included severe sepsis in the setting of obstructive uropathy and complicated UTI, requiring pressor support and subsequent development of acrocyanosis with gangrene in her extremities. Complicated UTI Urolithiasis and obstructive uropathy Urosepsis Severe sepsis POA: Secondary to above. Respiratory rate/pulse rate/WBC elevated at presentation. Lactate and procalcitonin elevated at presentation. UA suggestive of infection, 07/26 Urine Cx - K Pneumoniae 07/25 Bl Cx x2 - grew K. Pneumoniae Repeat Blood Cx x2 with NGTD Septic shock: Patient's blood pressure did not improve despite aggressive fluid resuscitation, was transferred to ICU for pressor support on admission. Likely metabolic encephalopathy: Secondary to above Gram-negative bacteremia: 07/25 blood cultures x2 positive for Klebsiella pneumoniae. Repeat blood culture 07/27 no growth to date. Urology evaluated, status post cystoscopy and right retrograde pyelogram/right ureteral stent placement 07/26/2023 Patient was started on cefepime 07/26, to ceftriaxone 07/27, d/w ID 07/28 - agreed w/ Rx. Continue. CTAP repeated 07/29 for concern of perinephric abscess, which was ruled out. Pt was treated with Cefepime or Ceftriaxone for a total of 14 days. Transitioned to ciprofloxacin om 08/09 (see below) Acrocyanosis Gangrene Acute CVA Patient had developed acrocyanosis and nasal tip cyanosis overnight on 07/26- 07/27. Patient has been off of pressor support [vasopressin and Levophed] from 07/26. 07/27 - Duplex arterial scan of UE and LE WNL. Venous Doppler BLE negative for DVT. Patient was started on heparin drip and Solu-Medrol for concern of cryoglobulinemia. 1/28 - acrocyanosis progressed. Discussed with various subspecialties including rheumatology/hematology/staff radiation therapist. Peripheral blood smear with no schistocytes. TTP HUS ruled out. DIC from sepsis versus ischemic necrosis from recent pressor use was contemplated on differential diagnosis for acrocyanosis. Patient was transferred to ICU and was intubated due to tachypnea/shallow breathing. She also developed a fever, and was started on vancomycin/acyclovir/ampicillin on top of Rocephin for possible encephalitis versus meningitis. Lumbar puncture was deferred due to dropping platelets. MRI brain was obtained which revealed punctate right occipital lobe lacunar infarct. ANAHI screen was negative. PF4 antibody negative --HIT ruled out. Again no schistocytes noted on peripheral smearTTP HUS ruled out Haptoglobin within normal limits Patient was extubated on August Platelets improved as well. 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 Orthopedic consulted for possible debridement/surgical treatment. Seen by orthopedic on August 02, 2023 and August 04, 2023; do not recommend amputation at this point in time. Recommended allowing for gangrene to fully demarcate to determine what requires amputation and what can be salvaged. Orthopedics re-consulted on 08/08- appreciate recs -recommended waiting for further delineation which can take a few weeks, can be done electively. However pt needs monitoring for signs of infection -podiatry consult for lower extremity evaluation 08/09- Pt underwent leech therapy with orthopedics, per wound care recommendations (see ortho procedure note from same date). Received 0.5mg Ativan to help with anxiety during the process. Per ortho, will need abx coverage in the form of cipro 500mg BID, ordered. Appreciate recs. 08/10- Repeat leech therapy done by ortho. Continue with ordered cipro. Standing order for prn Ativan for leech therapy related anxiety placed. Appreciate ortho and wound recs. Consider ENT consult for similar nasal changes. 08/11- Continue leech therapy, cipro. Appreciate ortho recs, adding fern OT. Appreciate podiatry recs, similar to ortho recs. Daughter updated, notes that her nose lesion started the day after admission. 08/12- stable 08/13- leech therapy today, per ortho note, last day of leech therapy. Appreciate recs. New onset anemia Likely UGIB Prior hemoglobin level 13.9, admitting hemoglobin 11.1 Hemoccult positive melanotic stool noted at the ER GI evaluated 07/26, PPI drip changed to twice daily. Monitor H&H and transfuse as needed. Will likely need follow-up with GI as an outpatient. Hemoglobin down to 6.3 on 08/06; transfused 2 units- currently stable and increasing to 9 Monitor daily CBC Atrial fibrillation with RVR Demand ischemia Patient developed atrial fibrillation with RVR on July 30, 2023 Echocardiogram from 07/26 shows EF of 50 to 55% with mild concentric LVH. 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 Also on digoxin. Plan to transition to Cardizem 180 mg daily at discharge and reducing metoprolol to 25 mg once daily at discharge. Continue on Lovenox for anticoagulation. Plan to transition over to Coumadin after surgical interventions by orthopedics. Appreciate Cardiology recs Will transition to warfarin after leech therapy complete. Acute on chronic diastolic CHF: Chest x-ray from 08/01 showed pulmonary edema Echocardiogram as above Diuresis with IV Lasix 40 mg twice daily Continue IV diuretics as needed to get negative balance. Right occipital lobe lacunar infarct: Head and neck imaging with 07/29 MRI w/ punctate right occipital lobe lacunar infarct. Neurology previously consulted Continue statin Acute kidney injury-resolved: Admitting creatinine of 1.6, past creatinine 0.89. Status post IV fluid, s/p pressor support. Likely prerenal secondary to septic shock. Improvement with IV hydration Acute metabolic encephalopathy- resolved Acute fever-resolved Thrombocytopenia- resolved Other chronic medical conditions: Continue with/resume home meds as and when able. Hypertension, continue on lisinopril. hyperlipidemia, on statin Rx. Continue DM2 on oral medications, reasonable control as of recent hemoglobin A1c of 7.1 last March 2023 HCV status post Rx Recent COVID-19 illness from 2 weeks ago, monitor respiratory symptoms. Diet: HH/DMII, minced and moist CODE STATUS: Full code DVT prophylaxis: Lovenox Dispo: Pt accepted at [facility]- Patient has poor peripheral vascular access with only 1 peripheral IV access. PICC line consent was obtained from the daughter; unable to place as per vascular team due to poor access. Patient currently has right IJ central line. Previous provider iscussed with nursing to attempt peripheral IV line placement. Removal of central line after placement of other IV access. Contact: daughter Delores ([phone]) Admission and Anticipated Discharge Date Admission Date: July 26, 2023 Subjective Pt was seen with brother and sister in law at bedside. AAOx1. Family updated Review of Systems Review of Systems: All systems reviewed & are unremarkable except as noted in Subjective Physical Exam Physical Exam: General: Alert. No acute distress Skin: blackened hands and feet, noted bullae Psych: Appropriate mood and affect Neuro: left arm weak, unable to move HEENT: NC/AT Chest: Nontender to palpation. CV: RRR Resp:no increased effort of breathing Abdomen: Soft Extremities: blackened hands and feet Results & Data Results & Data Vital Signs (Past 12 Hours) Vital Signs Temp Pulse Pulse Resp BP Pulse Ox O2 Del Method 08/13/23 11:42 37.0 C 86 18 163/74 H 95 Room Air 08/13/23 08:00 80 08/13/23 08:00 Room Air 08/13/23 07:56 36.5 C 82 18 156/80 H 94 Nasal Cannula 08/13/23 03:00 36.6 C 79 18 141/88 H 95 Room Air O2 Flow Rate 08/13/23 11:42 08/13/23 08:00 08/13/23 08:00 08/13/23 07:56 1 08/13/23 03:00 (5) Anemia Anemia type: unspecified type Qualified Code(s): D64.9 - Anemia, unspecified (6) HTN (hypertension) Hypertension type: primary hypertension Qualified Code(s): I10 - Essential (primary) hypertension (12) Sepsis Acute renal failure type: unspecified Sepsis acute organ dysfunction status: with acute organ dysfunction Sepsis type: sepsis due to unspecified organism Severe sepsis acute organ dysfunction type: acute renal failure Severe sepsis shock status: without septic shock Qualified Code(s): A41.9 - Sepsis, unspecified organism; R65.20 - Severe sepsis without septic shock; N17.9 - Acute kidney failure, unspecified
--- NOTE | 2023-08-13 17:25 | Orthopedic Progress Note ---
Date of Service August 13, 2023 Assessment & Plan (1) Gangrene: Plan Procedure note 3 leeches were sterilely applied to the left upper extremity, 1 lesion to the right upper extremity, and 1 lesion to the right lower extremity. All each is adhered well. Given the significant improvement in venous congestion this will likely be the last day for leech therapy. Admission and Anticipated Discharge Date Admission Date: July 26, 2023 Subjective No complaints in regard to leech therapy. Physical Exam Musculoskeletal: Hand shows significant decrease in venous congestion. She has some additional necrosis on the palmar side and at the tips of the fingers. Hands and feet are starting to demarcate. No active infection. Results & Data Vital Signs (Past 12 Hours) Vital Signs Temp Pulse Pulse Resp BP Pulse Ox O2 Del Method 08/13/23 15:27 36.4 C L 75 18 110/68 97 Room Air 08/13/23 11:42 37.0 C 86 18 163/74 H 95 Room Air 08/13/23 08:00 80 08/13/23 08:00 Room Air 08/13/23 07:56 36.5 C 82 18 156/80 H 94 Nasal Cannula O2 Flow Rate 08/13/23 15:27 08/13/23 11:42 08/13/23 08:00 08/13/23 08:00 08/13/23 07:56 1
[2023-08-14 06:35] LABS: Basophils # (auto) 0.02 K/uL (0.00-0.20); Basophils % (auto) 0.3 %; Eosinophils # (auto) 0.05 K/uL (0.00-0.50); Eosinophils % (auto) 0.7 %; Hematocrit (blood only) 27.1 % (37.0-47.0); Hemoglobin 8.6 g/dl (12.0-16.0); Immature Granulocytes # (auto) 0.07 K/uL (0.01-0.20); Lymphocytes # (auto) 1.16 K/uL (1.20-3.40); Lymphocytes % (auto) 15.9 %; Mean Corpuscular Hemoglobin 29.4 pg (25.0-34.0); Mean Corpuscular Hgb Conc 31.7 g/dL (32.0-36.0); Mean Corpuscular Volume 92.5 fL (80.0-100.0); Monocytes # (auto) 0.57 K/uL (0.11-0.59); Monocytes % (auto) 7.8 %; Neutrophils # (auto) 5.44 K/uL (1.40-6.50); Neutrophils % (auto) 74.3 %; Platelet Count 211 K/uL (130-400); RDW Coefficient of Variation 14.7 % (11.5-14.5); RDW Standard Deviation 49.1 fL (36.4-46.3); Red Blood Count 2.93 M/uL (4.20-5.40); White Blood Count 7.31 K/ul (4.8-10.8)
[2023-08-14 06:38] LABS: Albumin Globulin Ratio 0.8 (0.9-2); Albumin Level 2.7 gm/dl (3.4-5.0); BUN Creatinine Ratio 28.8 (10-20); Bilirubin,Total 0.4 mg/dl (0.2-1.0); Calcium 8.2 mg/dl (8.6-10.3); Creatinine Clr Calc Pharmacy 102.8 ml/min; Est GFR (African American) 109.9 ml/min; Est GFR (Non-African American) 94.8 ml/min; Globulin 3.3 gm/dl (2.5-4.0); Magnesium 1.7 mg/dl (1.7-2.4); Phosphorus 3.8 mg/dl (2.5-4.9); Potassium 3.9 mmol/L (3.5-5.1)
--- NOTE | 2023-08-14 10:07 | Hospitalist Progress Note ---
Date of Service August 14, 2023 Assessment & Plan (1) Gangrene: (2) Atrial fibrillation with rapid ventricular response: (3) Bacteremia: (4) Acute encephalopathy: (5) Anemia: (6) HTN (hypertension): (7) Septic shock: (8) Acute kidney injury: (9) Complicated urinary tract infection: (10) Hydronephrosis due to obstruction of ureter: (11) Ureterolithiasis: (12) Sepsis: Plan Pt is a 73yoF with PMHx significant for HTN, HLD, T2DM, HCV status posttreatment, anxiety/mood disorder who presented with confusion and right flank pain. Has had a complicated course that included severe sepsis in the setting of obstructive uropathy and complicated UTI, requiring pressor support and subsequent development of acrocyanosis with gangrene in her extremities. Complicated UTI Urolithiasis and obstructive uropathy Urosepsis Bacteremia Severe sepsis POA: Secondary to above. Respiratory rate/pulse rate/WBC elevated at presentation. Lactate and procalcitonin elevated at presentation. UA suggestive of infection, 07/26 Urine Cx - K Pneumoniae 07/25 Bl Cx x2 - grew K. Pneumoniae Repeat Blood Cx x2 with NGTD Septic shock: Patient's blood pressure did not improve despite aggressive fluid resuscitation, was transferred to ICU for pressor support on admission. Likely metabolic encephalopathy: Secondary to above Gram-negative bacteremia: 07/25 blood cultures x2 positive for Klebsiella pneumoniae. Repeat blood culture 07/27 no growth to date. Urology evaluated, status post cystoscopy and right retrograde pyelogram/right ureteral stent placement 07/26/2023 Patient was started on cefepime 07/26, to ceftriaxone 07/27, d/w ID 07/28 - agreed w/ Rx. Continue. CTAP repeated 07/29 for concern of perinephric abscess, which was ruled out. Pt was treated with Cefepime or Ceftriaxone for a total of 14 days. Transitioned to ciprofloxacin from 08/09 (see below) Acrocyanosis Gangrene Acute CVA Patient had developed acrocyanosis and nasal tip cyanosis overnight on 07/26- 07/27. Patient has been off of pressor support [vasopressin and Levophed] from 07/26. 07/27 - Duplex arterial scan of UE and LE WNL. Venous Doppler BLE negative for DVT. Patient was started on heparin drip and Solu-Medrol for concern of cryoglobulinemia. 07/28 - acrocyanosis progressed. Discussed with various subspecialties including rheumatology/hematology/solar project coordination specialist. Peripheral blood smear with no schistocytes. TTP HUS ruled out. DIC from sepsis versus ischemic necrosis from recent pressor use was contemplated on differential diagnosis for acrocyanosis. Patient was transferred to ICU and was intubated due to tachypnea/shallow breathing. She also developed a fever, and was started on vancomycin/acyclovir/ampicillin on top of Rocephin for possible encephalitis versus meningitis. Lumbar puncture was deferred due to dropping platelets. MRI brain was obtained which revealed punctate right occipital lobe lacunar infarct. Pt seen by neurology. ANAHI screen was negative. PF4 antibody negative --HIT ruled out. Again no schistocytes noted on peripheral smearTTP HUS ruled out Haptoglobin within normal limits Patient was extubated on August Platelets improved as well. Continue SEAMER PANTY HOSE, PT OT. Orthopedic consulted for possible debridement/surgical treatment. Seen by orthopedic on August 02, 2023 and August 04, 2023; do not recommend amputation at this point in time. Recommended allowing for gangrene to fully demarcate to determine what requires amputation and what can be salvaged. Orthopedics re-consulted on 08/08- appreciate recs -recommended waiting for further delineation which can take a few weeks, can be done electively. However pt needs monitoring for signs of infection -podiatry consult for lower extremity evaluation 08/09- Pt underwent leech therapy with orthopedics, per wound care recommendations (see ortho procedure note from same date). Received 0.5mg Ativan to help with anxiety during the process. Per ortho, will need abx coverage in the form of cipro 500mg BID, ordered. Appreciate recs. 08/10- Repeat leech therapy done by ortho. Continue with ordered cipro. Standing order for prn Ativan for leech therapy related anxiety placed. Appreciate ortho and wound recs. Consider ENT consult for similar nasal changes. 08/11- Continue leech therapy, cipro. Appreciate ortho recs, adding marilyow, OT. Appreciate podiatry recs, similar to ortho recs. Daughter updated, notes that her nose lesion started the day after admission. 08/12- stable 08/13- leech therapy today, per ortho note, poss. last day of leech therapy. Appreciate recs. New onset anemia Likely UGIB Prior hemoglobin level 13.9, admitting hemoglobin 11.1 Hemoccult positive melanotic stool noted at the ER GI evaluated 07/26, PPI drip changed to twice daily. Monitor H&H and transfuse as needed. Will likely need follow-up with GI as an outpatient. Hemoglobin down to 6.3 on 08/06; transfused 2 units- currently stable and increasing to 9 Monitor daily CBC Atrial fibrillation with RVR Demand ischemia Patient developed atrial fibrillation with RVR on July 30, 2023 Echocardiogram from 07/26 shows EF of 50 to 55% with mild concentric LVH. 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 Also on digoxin. Plan to transition to Cardizem 180 mg daily at discharge and reducing metoprolol to 25 mg once daily at discharge. Continue on Lovenox for anticoagulation. Plan to transition over to Coumadin after surgical interventions by orthopedics. Appreciate Cardiology recs Will transition to warfarin after leech therapy complete. Acute on chronic diastolic CHF: Chest x-ray from 08/01 showed pulmonary edema Echocardiogram as above Diuresis with IV Lasix 40 mg twice daily Continue IV diuretics as needed to get negative balance. Right occipital lobe lacunar infarct: Head and neck imaging with 07/29 MRI w/ punctate right occipital lobe lacunar infarct. Neurology consulted Continue statin Acute kidney injury-resolved: Admitting creatinine of 1.6, past creatinine 0.89. Status post IV fluid, s/p pressor support. Likely prerenal secondary to septic shock. Improvement with IV hydration Acute metabolic encephalopathy- resolved Acute fever-resolved Thrombocytopenia- resolved Other chronic medical conditions: Continue with/resume home meds as and when able. Hypertension, continue on lisinopril. hyperlipidemia, on statin Rx. Continue DM2 on oral medications, reasonable control as of recent hemoglobin A1c of 7.1 last March 2023 HCV status post Rx Recent COVID-19 illness from 2 weeks ago, monitor respiratory symptoms. Diet: HH/DMII, minced and moist CODE STATUS: Full code DVT prophylaxis: Lovenox Dispo: Pt accepted at [facility]- Patient has poor peripheral vascular access with only 1 peripheral IV access. PICC line consent was obtained from the daughter; unable to place as per vascular team due to poor access. Patient currently has right IJ central line. Previous provider discussed with nursing to attempt peripheral IV line placement. Removal of central line after placement of other IV access. Contact: daughter Delores ([phone]) Admission and Anticipated Discharge Date Admission Date: July 26, 2023 Subjective Pt seen in follow up - had complicated hosp. stay - urosepsis, Afib w/ RVR, DIC, CVA, acrocyanosis/ gangrene Pt laying in bed in NAD She is awake, however only answers some questions appropriately. She knows she is in the hospital, she tells me the year, and says it is August. I corrected her to tell her it is Deleon's Day today. She tells me she has a daughter and a son. She is not able to tell me much about her hospital course, however she nods and agrees when I am telling her about her hospital course. Denies fever chills chest pain shortness of breath abdominal pain nausea vomiting. Review of Systems Review of Systems: All systems reviewed & are unremarkable except as noted in Subjective Physical Exam Physical Exam: General: WD/WN F in NAD HEENT: NC/AT Chest: Nontender to palpation CV: RRR Resp:no increased effort of breathing, CTAB Abdomen: Soft Neuro: Awake, able to answer some simple questions appropriately, speech fluent, no facial asymmetry, moves extremities. left arm seems weaker Extremities: blackened hands and feet Skin: blackened hands and feet, noted bullae Results & Data Results & Data Vital Signs (Past 12 Hours) Vital Signs Temp Pulse Pulse Resp BP Pulse Ox O2 Del Method 08/14/23 08:00 82 08/14/23 08:00 Room Air 08/14/23 07:51 36.9 C 93 H 18 165/75 H 97 Room Air 08/14/23 02:54 36.6 C 80 18 161/92 H 94 Room Air 08/13/23 23:09 36.8 C 85 18 162/70 H 94 Room Air Laboratory Results 08/14/23 08/14/23 08/13/23 Range/Units 07:17 05:46 20:06 WBC 7.31 (4.8-10.8) K/ul RBC 2.93 L (4.20-5.40) M/uL Hgb 8.6 L (12.0-16.0) g/dl Hct 27.1 L (37.0-47.0) % MCV 92.5 (80.0-100.0) fL MCH 29.4 (25.0-34.0) pg MCHC 31.7 L (32.0-36.0) g/dL RDW Std Deviation 49.1 H (36.4-46.3) fL RDW Coeff of Mary 14.7 H (11.5-14.5) % Plt Count 211 (130-400) K/uL MPV 10.0 (9.4-12.4) fL Immature Gran % (Auto) 1.0 % Neut % (Auto) 74.3 % Lymph % (Auto) 15.9 % Wirt % (Auto) 7.8 % Eos % (Auto) 0.7 % Baso % (Auto) 0.3 % Neut # (Auto) 5.44 (1.40-6.50) K/uL Lymph # (Auto) 1.16 L (1.20-3.40) K/uL Wirt # (Auto) 0.57 (0.11-0.59) K/uL Eos # (Auto) 0.05 (0.00-0.50) K/uL Baso # (Auto) 0.02 (0.00-0.20) K/uL Immature Gran # (Auto) 0.07 (0.01-0.20) K/uL Sodium 138 (136-145) mmol/L Potassium 3.9 (3.5-5.1) mmol/L Chloride 107 (98-107) mmol/L Carbon Dioxide 26 (21-32) mmol/L Anion Gap 5 (3-11) BUN 15 (6-23) mg/dl Creatinine 0.52 L (0.6-1.2) mg/dl Est Cr Clr Drug Dosing 102.8 ml/min Est GFR ( Amer) 109.9 ml/min Est GFR (Non-Af Amer) 94.8 ml/min BUN/Creatinine Ratio 28.8 H (10-20) Glucose 133 H (70-99(Fasting)) mg/dl POC Glucose 117 H 164 H (70-99) mg/dl Calcium 8.2 L (8.6-10.3) mg/dl Phosphorus 3.8 (2.5-4.9) mg/dl Magnesium 1.7 (1.7-2.4) mg/dl Total Bilirubin 0.4 (0.2-1.0) mg/dl AST 19 (13-39) U/L ALT 36 (7-52) U/L Alkaline Phosphatase 67 (34-104) U/L Total Protein 6.0 (6.0-8.3) gm/dl Albumin 2.7 L (3.4-5.0) gm/dl Globulin 3.3 (2.5-4.0) gm/dl Albumin/Globulin Ratio 0.8 L (0.9-2) 08/13/23 08/13/23 Range/Units 16:04 11:29 WBC (4.8-10.8) K/ul RBC (4.20-5.40) M/uL Hgb (12.0-16.0) g/dl Hct (37.0-47.0) % MCV (80.0-100.0) fL MCH (25.0-34.0) pg MCHC (32.0-36.0) g/dL RDW Std Deviation (36.4-46.3) fL RDW Coeff of Mary (11.5-14.5) % Plt Count (130-400) K/uL MPV (9.4-12.4) fL Immature Gran % (Auto) % Neut % (Auto) % Lymph % (Auto) % Wirt % (Auto) % Eos % (Auto) % Baso % (Auto) % Neut # (Auto) (1.40-6.50) K/uL Lymph # (Auto) (1.20-3.40) K/uL Wirt # (Auto) (0.11-0.59) K/uL Eos # (Auto) (0.00-0.50) K/uL Baso # (Auto) (0.00-0.20) K/uL Immature Gran # (Auto) (0.01-0.20) K/uL Sodium (136-145) mmol/L Potassium (3.5-5.1) mmol/L Chloride (98-107) mmol/L Carbon Dioxide (21-32) mmol/L Anion Gap (3-11) BUN (6-23) mg/dl Creatinine (0.6-1.2) mg/dl Est Cr Clr Drug Dosing ml/min Est GFR ( Amer) ml/min Est GFR (Non-Af Amer) ml/min BUN/Creatinine Ratio (10-20) Glucose (70-99(Fasting)) mg/dl POC Glucose 119 H 89 (70-99) mg/dl Calcium (8.6-10.3) mg/dl Phosphorus (2.5-4.9) mg/dl Magnesium (1.7-2.4) mg/dl Total Bilirubin (0.2-1.0) mg/dl AST (13-39) U/L ALT (7-52) U/L Alkaline Phosphatase (34-104) U/L Total Protein (6.0-8.3) gm/dl Albumin (3.4-5.0) gm/dl Globulin (2.5-4.0) gm/dl Albumin/Globulin Ratio (0.9-2) Medications Administered Current Inpatient Medications Acetaminophen (Acetaminophen Susp 500 Mg/15.6 Ml Udp) 500 mg PO Q6H PRN PRN Reason: Fever Stop: 08/30/23 22:27 Last Admin: 08/11/23 02:37 Dose: 500 mg Atorvastatin Calcium (Atorvastatin 40 Mg Tab) 40 mg PO QAM [facility] Stop: 08/25/23 08:59 Last Admin: 08/14/23 08:32 Dose: 40 mg Ciprofloxacin (Ciprofloxacin 500 Mg Tab) 500 mg PO BID [facility]; Protocol Stop: 09/20/23 21:44 Last Admin: 08/14/23 08:31 Dose: 500 mg Dextrose (Dextrose 50% 50 Ml Syringe) 25 - 50 ml IV UD PRN; Protocol PRN Reason: Hypoglycemia Protocol Stop: 08/25/23 02:55 Last Admin: 07/28/23 21:52 Dose: 50 ml Digoxin (Digoxin 0.125 Mg Tab) 0.125 mg PO DAILY@1600 [facility] Stop: 09/02/23 15:59 Last Admin: 08/13/23 16:09 Dose: 0.125 mg Diltiazem HCl (Diltiazem Hcl 60 Mg Tab) 60 mg PO TID [facility] Stop: 09/04/23 20:59 Last Admin: 08/14/23 08:32 Dose: 60 mg Enoxaparin Sodium (Enoxaparin 80 Mg/0.8 Ml Syr) 80 mg SQ Q12H [facility] Stop: 09/04/23 07:59 Last Admin: 08/14/23 08:30 Dose: 80 mg Furosemide (Furosemide 40 Mg/4 Ml Vial) 40 mg IV BID [facility] Stop: 09/01/23 20:59 Last Admin: 08/06/23 08:41 Dose: 40 mg Glucagon (Glucagon For Inj 1 Mg Vial) 1 mg SQ UD PRN; Protocol PRN Reason: Hypoglycemia Protocol Stop: 08/25/23 02:55 Glucose (Glucose 10 Tab/Tube) 4 - 8 tab PO UD PRN; Protocol PRN Reason: Hypoglycemia Treatment Stop: 08/25/23 02:55 Glucose (Glucose 40% Gel 15 Gm Tube) 15 - 30 gm PO UD PRN; Protocol PRN Reason: Hypoglycemia Protocol Stop: 08/25/23 02:55 Heparin Sodium (Beef Lung) (Heparin 10 Unit/Ml 5 Ml Flush) 5 ml FLUSH PRN PRN PRN Reason: Flush Stop: 09/11/23 08:42 Lorazepam 0.5 mg/ Syringe 0.5 mls @ 2 mls/min IV DAILY PRN PRN Reason: anxiety related to leech Rx Stop: 09/09/23 16:07 Insulin Aspart (Insulin Aspart Per Unit Charge) 0 units SC [facility]; Protocol Stop: 08/28/23 05:59 Last Admin: 08/14/23 08:29 Dose: Not Given Insulin Glargine (Lantus Per Unit Charge) 10 units SC [facility]; Protocol Stop: 09/04/23 11:29 Last Admin: 08/14/23 08:29 Dose: 10 units Lisinopril (Lisinopril 20 Mg Tab) 20 mg PO [facility] Stop: 09/09/23 06:29 Last Admin: 08/14/23 08:31 Dose: 20 mg Magnesium Chloride (Magnesium Chloride W/Calcium 64mg Delayed Rel Tab) 64 mg PO BID [facility] Stop: 09/09/23 09:29 Last Admin: 08/14/23 08:31 Dose: 64 mg Metoprolol Succinate (Metoprolol Succ 25mg Ext Rel Tab) 25 mg PO [id number] [facility] Stop: 09/04/23 16:59 Last Admin: 08/14/23 08:30 Dose: 25 mg Miscellaneous (Carbohydrates For Hypoglycemia ) 15 - 30 gm PO UD PRN PRN Reason: Hypoglycemia Protocol Stop: 08/25/23 02:55 Miscellaneous Information (Pharmacy Glycemic Mgmt Consult) 1 each N/A UD PRN PRN Reason: Consult Stop: 08/29/23 11:36 Pantoprazole Sodium (Pantoprazole 40 Mg Tab) 40 mg PO BID [facility] Stop: 09/04/23 08:59 Last Admin: 08/14/23 08:32 Dose: 40 mg Potassium Chloride (Potassium Chloride Crtab 20 Meq Tabcr) 20 meq PO BID [facility] Stop: 09/04/23 20:59 Last Admin: 08/14/23 08:30 Dose: 20 meq Potassium Phosphate (Pot Phosphate Monobasic W/ Sod Tab) 2 tab PO QID [facility] Stop: 08/30/23 12:59 Last Admin: 08/14/23 08:29 Dose: 2 tab Tamsulosin HCl (Tamsulosin Hcl 0.4 Mg Cap) 0.4 mg PO HS [facility] Stop: 08/25/23 20:59 Last Admin: 08/13/23 20:49 Dose: 0.4 mg Venlafaxine HCl (Venlafaxine Hcl Xr 150 Mg Capxr) 150 mg PO DAILY [facility] Stop: 08/25/23 08:59 Last Admin: 08/14/23 08:31 Dose: 150 mg (5) Anemia Anemia type: unspecified type Qualified Code(s): D64.9 - Anemia, unspecified (6) HTN (hypertension) Hypertension type: primary hypertension Qualified Code(s): I10 - Essential (primary) hypertension (12) Sepsis Acute renal failure type: unspecified Sepsis acute organ dysfunction status: with acute organ dysfunction Sepsis type: sepsis due to unspecified organism Severe sepsis acute organ dysfunction type: acute renal failure Severe sepsis shock status: without septic shock Qualified Code(s): A41.9 - Sepsis, unspecified organism; R65.20 - Severe sepsis without septic shock; N17.9 - Acute kidney failure, unspecified
[2023-08-14] MEDS: MAGNESIUM SULFATE / D5W 1 GM/100 ML BAG IV ONE (10:36)
--- NOTE | 2023-08-14 15:17 | Pharmacy Report ---
Pharmacy Glycemic Sign Off Nt - Date of Service August 14, 2023 - Assessment & Plan ASSESSMENT: * No changes x3 days. Stressors stable. Patient on low dose Lantus and Novolog moderate estimate for CF/CR. BSG's ranged 89-164 mg/dL over the last 48 hours. * TigerTexted Dr. Salcido to inform of pharmacy sign-off - message delivered. PLAN FOR INPATIENT GLYCEMIC CONTROL: No changes needed to current regimen. * Continue basal insulin with Lantus 10 units SQ daily * Continue NovoLog per scale ACHS/Q6hrs while NPO * Goal range = 110 140 mg/dl * CF = 30 mg/dl/unit * CR = 1 unit for ever 11 g CHO consumed * Pharmacy is signing off of glycemic consult and will no longer be making adjustments to inpatient regimen. Please feel free to re-consult if needed. Thank you.
[2023-08-15 06:56] LABS: Hematocrit (blood only) 27.4 % (37.0-47.0); Hemoglobin 8.7 g/dl (12.0-16.0); Mean Corpuscular Hemoglobin 29.3 pg (25.0-34.0); Mean Corpuscular Hgb Conc 31.8 g/dL (32.0-36.0); Mean Corpuscular Volume 92.3 fL (80.0-100.0); Platelet Count 180 K/uL (130-400); RDW Coefficient of Variation 14.9 % (11.5-14.5); RDW Standard Deviation 48.6 fL (36.4-46.3); Red Blood Count 2.97 M/uL (4.20-5.40)
[2023-08-15] MEDS: CARBOHYDRATES FOR HYPOGLYCEMIA PO PRN (07:30)
[2023-08-15 07:32] LABS: BUN Creatinine Ratio 29.3 (10-20); Calcium 8.3 mg/dl (8.6-10.3); Creatinine Clr Calc Pharmacy 92.2 ml/min; Est GFR (Non-African American) 91.4 ml/min; Magnesium 1.7 mg/dl (1.7-2.4); Phosphorus 3.9 mg/dl (2.5-4.9)
--- NOTE | 2023-08-15 09:40 | Communication Note ---
Date of Service: August 15, 2023 Case was discussed with hospitalist. She may continue occupational therapy for active and passive range of motion. There are no restrictions with therapy. She should elevate bilateral upper extremities. Recommendation is to use Danilo pillow, which has been previously ordered, as much as possible to elevate the extremity. She should continue on ciprofloxacin for 1 week since discontinuation of leech therapy. The last day leech therapy was August 13. Therefore the last day of ciprofloxacin should be August 20.
--- NOTE | 2023-08-15 09:46 | Hospitalist Progress Note ---
Date of Service August 15, 2023 Assessment & Plan (1) Gangrene: (2) Atrial fibrillation with rapid ventricular response: (3) Bacteremia: (4) Acute encephalopathy: (5) Anemia: (6) HTN (hypertension): (7) Septic shock: (8) Acute kidney injury: (9) Complicated urinary tract infection: (10) Hydronephrosis due to obstruction of ureter: (11) Ureterolithiasis: (12) Sepsis: Plan Pt is a 73yoF with PMHx significant for HTN, HLD, T2DM, HCV status posttreatment, anxiety/mood disorder who presented with confusion and right flank pain. Has had a complicated course that included severe sepsis in the setting of obstructive uropathy and complicated UTI, requiring pressor support and subsequent development of acrocyanosis with gangrene in her extremities. Complicated UTI Urolithiasis and obstructive uropathy Urosepsis Bacteremia Severe sepsis POA: Secondary to above. Respiratory rate/pulse rate/WBC elevated at presentation. Lactate and procalcitonin elevated at presentation. UA suggestive of infection, 07/26 Urine Cx - K Pneumoniae 07/25 Bl Cx x2 - grew K. Pneumoniae Repeat Blood Cx x2 with NGTD Septic shock: Patient's blood pressure did not improve despite aggressive fluid resuscitation, was transferred to ICU for pressor support on admission. Likely metabolic encephalopathy: Secondary to above Gram-negative bacteremia: 07/25 blood cultures x2 positive for Klebsiella pneumoniae. Repeat blood culture 07/27 no growth to date. Urology evaluated, status post cystoscopy and right retrograde pyelogram/right ureteral stent placement 07/26/2023 Patient was started on cefepime 07/26, to ceftriaxone 07/27, d/w ID 07/28 - agreed w/ Rx. Continue. CTAP repeated 07/29 for concern of perinephric abscess, which was ruled out. Pt was treated with Cefepime or Ceftriaxone for a total of 14 days. Transitioned to ciprofloxacin from 08/09 (see below) Acrocyanosis Gangrene Acute CVA Patient had developed acrocyanosis and nasal tip cyanosis overnight on 07/26- 07/27. Patient has been off of pressor support [vasopressin and Levophed] from 07/26. 07/27 - Duplex arterial scan of UE and LE WNL. Venous Doppler BLE negative for DVT. Patient was started on heparin drip and Solu-Medrol for concern of cryoglobulinemia. 07/28 - acrocyanosis progressed. Discussed with various subspecialties including rheumatology/hematology/county agent. Peripheral blood smear with no schistocytes. TTP HUS ruled out. DIC from sepsis versus ischemic necrosis from recent pressor use was contemplated on differential diagnosis for acrocyanosis. Patient was transferred to ICU and was intubated due to tachypnea/shallow breathing. She also developed a fever, and was started on vancomycin/acyclovir/ampicillin on top of Rocephin for possible encephalitis versus meningitis. Lumbar puncture was deferred due to dropping platelets. MRI brain was obtained which revealed punctate right occipital lobe lacunar infarct. Pt seen by neurology. ANAHI screen was negative. PF4 antibody negative --HIT ruled out. Again no schistocytes noted on peripheral smearTTP HUS ruled out Haptoglobin within normal limits Patient was extubated on August Platelets improved as well. Continue [employer], PT OT. Orthopedic consulted for possible debridement/surgical treatment. Seen by orthopedic on August 02, 2023 and August 04, 2023; do not recommend amputation at this point in time. Recommended allowing for gangrene to fully demarcate to determine what requires amputation and what can be salvaged. Orthopedics re-consulted on 08/08- appreciate recs -recommended waiting for further delineation which can take a few weeks, can be done electively. However pt needs monitoring for signs of infection -podiatry consult for lower extremity evaluation 08/09- Pt underwent leech therapy with orthopedics, per wound care recommendations (see ortho procedure note from same date). Received 0.5mg Ativan to help with anxiety during the process. Per ortho, will need abx coverage in the form of cipro 500mg BID, ordered. Appreciate recs. 08/10- Repeat leech therapy done by ortho. Continue with ordered cipro. Standing order for prn Ativan for leech therapy related anxiety placed. Appreciate ortho and wound recs. Consider ENT consult for similar nasal changes. 08/11- Continue leech therapy, cipro. Appreciate ortho recs, adding marilyow, OT. Appreciate podiatry recs, similar to ortho recs. Daughter updated, notes that her nose lesion started the day after admission. 08/12- stable 08/13- leech therapy today, per ortho note, poss. last day of leech therapy. Appreciate recs. 08/15 - Discussed with Dr. Lay (orthopedic surgery) - Pt should continue on ciprofloxacin for 1 week since discontinuation of leech therapy. The last day leech therapy was August 13. Therefore the last day of ciprofloxacin should be August 20. She may continue occupational therapy for active and passive range of motion. There are no restrictions with therapy. She should elevate bilateral upper extremities. Recommendation is to use Danilo pillow, which has been previously ordered, as much as possible to elevate the extremity. Follow up w/ Dr. Lay ([facility]) in 10-14 days from discharge. New onset anemia Likely UGIB Prior hemoglobin level 13.9, admitting hemoglobin 11.1 Hemoccult positive melanotic stool noted at the ER GI evaluated 07/26, PPI drip changed to twice daily. Monitor H&H and transfuse as needed. Will likely need follow-up with GI as an outpatient. Hemoglobin down to 6.3 on 08/06; transfused 2 units- currently stable and increased to ~ 9 Monitor daily CBC Atrial fibrillation with RVR Demand ischemia Patient developed atrial fibrillation with RVR on July 30, 2023 Echocardiogram from 07/26 shows EF of 50 to 55% with mild concentric LVH. 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 Also on digoxin. Plan to transition to Cardizem 180 mg daily at discharge and reducing metoprolol to 25 mg once daily at discharge. Continue on Lovenox for anticoagulation. Plan to transition over to Coumadin after surgical interventions by orthopedics. Appreciate Cardiology recs Will transition to warfarin after leech therapy and ciprofloxacin treatment complete. plan to stop lovenox when INR is 2.0 Acute on chronic diastolic CHF: Chest x-ray from 08/01 showed pulmonary edema Echocardiogram as above Diuresis with IV Lasix 40 mg twice daily Continue IV diuretics as needed to get negative balance. Right occipital lobe lacunar infarct: Head and neck imaging with 07/29 MRI w/ punctate right occipital lobe lacunar infarct. Neurology consulted Continue statin Follow up with neurology as outpt. Acute kidney injury-resolved: Admitting creatinine of 1.6, past creatinine 0.89. Status post IV fluid, s/p pressor support. Likely prerenal secondary to septic shock. Improvement with IV hydration Acute metabolic encephalopathy- resolved Acute fever-resolved Thrombocytopenia- resolved Other chronic medical conditions: Continue with/resume home meds as and when able. Hypertension, continue on lisinopril. hyperlipidemia, on statin Rx. Continue DM2 on oral medications, reasonable control as of recent hemoglobin A1c of 7.1 last March 2023 HCV status post Rx Recent COVID-19 illness from 2 weeks ago, monitor respiratory symptoms. Diet: HH/DMII, minced and moist CODE STATUS: Full code DVT prophylaxis: Lovenox Dispo: Pt accepted at [facility]- Patient has poor peripheral vascular access with only 1 peripheral IV access. PICC line consent was obtained from the daughter; unable to place as per vascular team due to poor access. Patient currently has right IJ central line. Previous provider discussed with nursing to attempt peripheral IV line placement. Removal of central line after placement of other IV access. Contact: chintan Estrella ([phone]) Admission and Anticipated Discharge Date Admission Date: July 26, 2023 Subjective Pt seen in follow up - had complicated hosp. stay - urosepsis, Afib w/ RVR, DIC, CVA, acrocyanosis/ gangrene Pt laying in bed in NAD She is awake, alert able to answer some questions appropriately. Her brother and his are present at the bedside, and patient recognizes them easily, and tells me their names. She is little hesitant to tell me when I ask her about her hospital course, she nods and agrees when I am telling her about her hospital course. Denies fever chills chest pain shortness of breath abdominal pain nausea vomiting. Discussed with Dr. Lay (orthopedic surgery), over the phone, leech therapy is finished now, he recommends to continue ciprofloxacin for 1 more week since leech therapy is finished. Then for several more weeks, they will observe before any final surgical treatment. He is in agreement that patient could be discharged from the hospital at this point. Review of Systems Review of Systems: All systems reviewed & are unremarkable except as noted in Subjective Physical Exam Physical Exam: General: WD/WN F in NAD HEENT: NC/AT Chest: Nontender to palpation CV: RRR Resp: no increased effort of breathing, CTAB Abdomen: Soft Neuro: Awake, able to answer some simple questions appropriately, speech fluent, no facial asymmetry, moves extremities. left arm seems weaker Extremities: blackened hands and feet, hands elevated on pillows Skin: blackened hands and feet, noted bullae Results & Data Results & Data Vital Signs (Past 12 Hours) Vital Signs Temp Pulse Pulse Resp BP Pulse Ox O2 Del Method 08/15/23 07:57 36.3 C L 80 18 166/72 H 94 Room Air 08/15/23 03:25 36.6 C 80 18 157/65 H 94 Room Air 08/15/23 00:00 82 08/14/23 23:16 36.8 C 80 18 130/61 96 Room Air Laboratory Results 08/15/23 08/15/23 08/15/23 Range/Units 07:47 07:27 07:26 WBC (4.8-10.8) K/ul RBC (4.20-5.40) M/uL Hgb (12.0-16.0) g/dl Hct (37.0-47.0) % MCV (80.0-100.0) fL MCH (25.0-34.0) pg MCHC (32.0-36.0) g/dL RDW Std Deviation (36.4-46.3) fL RDW Coeff of Mary (11.5-14.5) % Plt Count (130-400) K/uL MPV (9.4-12.4) fL Sodium (136-145) mmol/L Potassium (3.5-5.1) mmol/L Chloride (98-107) mmol/L Carbon Dioxide (21-32) mmol/L Anion Gap (3-11) BUN (6-23) mg/dl Creatinine (0.6-1.2) mg/dl Est Cr Clr Drug Dosing ml/min Est GFR ( Amer) ml/min Est GFR (Non-Af Amer) ml/min BUN/Creatinine Ratio (10-20) Glucose (70-99(Fasting)) mg/dl POC Glucose 175 H 67 L* 68 L* (70-99) mg/dl Calcium (8.6-10.3) mg/dl Phosphorus (2.5-4.9) mg/dl Magnesium (1.7-2.4) mg/dl 08/15/23 08/14/23 08/14/23 Range/Units 06:28 20:09 16:19 WBC 7.50 (4.8-10.8) K/ul RBC 2.97 L (4.20-5.40) M/uL Hgb 8.7 L (12.0-16.0) g/dl Hct 27.4 L (37.0-47.0) % MCV 92.3 (80.0-100.0) fL MCH 29.3 (25.0-34.0) pg MCHC 31.8 L (32.0-36.0) g/dL RDW Std Deviation 48.6 H (36.4-46.3) fL RDW Coeff of Mary 14.9 H (11.5-14.5) % Plt Count 180 (130-400) K/uL MPV 10.0 (9.4-12.4) fL Sodium 138 (136-145) mmol/L Potassium 4.0 (3.5-5.1) mmol/L Chloride 106 (98-107) mmol/L Carbon Dioxide 25 (21-32) mmol/L Anion Gap 7 (3-11) BUN 17 (6-23) mg/dl Creatinine 0.58 L (0.6-1.2) mg/dl Est Cr Clr Drug Dosing 92.2 ml/min Est GFR ( Amer) 106.0 ml/min Est GFR (Non-Af Amer) 91.4 ml/min BUN/Creatinine Ratio 29.3 H (10-20) Glucose 142 H (70-99(Fasting)) mg/dl POC Glucose 180 H 112 H (70-99) mg/dl Calcium 8.3 L (8.6-10.3) mg/dl Phosphorus 3.9 (2.5-4.9) mg/dl Magnesium 1.7 (1.7-2.4) mg/dl 08/14/23 Range/Units 10:59 WBC (4.8-10.8) K/ul RBC (4.20-5.40) M/uL Hgb (12.0-16.0) g/dl Hct (37.0-47.0) % MCV (80.0-100.0) fL MCH (25.0-34.0) pg MCHC (32.0-36.0) g/dL RDW Std Deviation (36.4-46.3) fL RDW Coeff of Mary (11.5-14.5) % Plt Count (130-400) K/uL MPV (9.4-12.4) fL Sodium (136-145) mmol/L Potassium (3.5-5.1) mmol/L Chloride (98-107) mmol/L Carbon Dioxide (21-32) mmol/L Anion Gap (3-11) BUN (6-23) mg/dl Creatinine (0.6-1.2) mg/dl Est Cr Clr Drug Dosing ml/min Est GFR ( Amer) ml/min Est GFR (Non-Af Amer) ml/min BUN/Creatinine Ratio (10-20) Glucose (70-99(Fasting)) mg/dl POC Glucose 132 H (70-99) mg/dl Calcium (8.6-10.3) mg/dl Phosphorus (2.5-4.9) mg/dl Magnesium (1.7-2.4) mg/dl Medications Administered Current Inpatient Medications Acetaminophen (Acetaminophen Susp 500 Mg/15.6 Ml Udp) 500 mg PO Q6H PRN PRN Reason: Fever Stop: 08/30/23 22:27 Last Admin: 08/11/23 02:37 Dose: 500 mg Atorvastatin Calcium (Atorvastatin 40 Mg Tab) 40 mg PO QAM [facility] Stop: 08/25/23 08:59 Last Admin: 08/15/23 08:03 Dose: 40 mg Ciprofloxacin (Ciprofloxacin 500 Mg Tab) 500 mg PO BID [facility]; Protocol Stop: 09/20/23 21:44 Last Admin: 08/15/23 08:03 Dose: 500 mg Dextrose (Dextrose 50% 50 Ml Syringe) 25 - 50 ml IV UD PRN; Protocol PRN Reason: Hypoglycemia Protocol Stop: 08/25/23 02:55 Last Admin: 07/28/23 21:52 Dose: 50 ml Digoxin (Digoxin 0.125 Mg Tab) 0.125 mg PO DAILY@1600 [facility] Stop: 09/02/23 15:59 Last Admin: 08/14/23 16:15 Dose: 0.125 mg Diltiazem HCl (Diltiazem Hcl 60 Mg Tab) 60 mg PO TID [facility] Stop: 09/04/23 20:59 Last Admin: 08/15/23 08:03 Dose: 60 mg Enoxaparin Sodium (Enoxaparin 80 Mg/0.8 Ml Syr) 80 mg SQ Q12H [facility] Stop: 09/04/23 07:59 Last Admin: 08/15/23 08:03 Dose: 80 mg Glucagon (Glucagon For Inj 1 Mg Vial) 1 mg SQ UD PRN; Protocol PRN Reason: Hypoglycemia Protocol Stop: 08/25/23 02:55 Glucose (Glucose 10 Tab/Tube) 4 - 8 tab PO UD PRN; Protocol PRN Reason: Hypoglycemia Treatment Stop: 08/25/23 02:55 Glucose (Glucose 40% Gel 15 Gm Tube) 15 - 30 gm PO UD PRN; Protocol PRN Reason: Hypoglycemia Protocol Stop: 08/25/23 02:55 Heparin Sodium (Beef Lung) (Heparin 10 Unit/Ml 5 Ml Flush) 5 ml FLUSH PRN PRN PRN Reason: Flush Stop: 09/11/23 08:42 Lorazepam 0.5 mg/ Syringe 0.5 mls @ 2 mls/min IV DAILY PRN PRN Reason: anxiety related to leech Rx Stop: 09/09/23 16:07 Insulin Aspart (Insulin Aspart Per Unit Charge) 0 units SC ACHS [facility]; Protocol Stop: 08/28/23 05:59 Last Admin: 08/15/23 08:02 Dose: Not Given Insulin Glargine (Lantus Per Unit Charge) [facility] Protocol Stop: 09/04/23 11:29 Last Admin: 08/15/23 08:02 Dose: 10 units Lisinopril (Lisinopril 20 Mg Tab) 20 mg PO QAM [facility] Stop: 09/09/23 06:29 Last Admin: 08/15/23 08:03 Dose: 20 mg Magnesium Chloride (Magnesium Chloride W/Calcium 64mg Delayed Rel Tab) 64 mg PO BID [facility] Stop: 09/09/23 09:29 Last Admin: 08/15/23 08:03 Dose: 64 mg Metoprolol Succinate (Metoprolol Succ 25mg Ext Rel Tab) 25 mg PO BID17 [facility] Stop: 09/04/23 16:59 Last Admin: 08/15/23 08:04 Dose: 25 mg Miscellaneous (Carbohydrates For Hypoglycemia ) 15 - 30 gm PO UD PRN PRN Reason: Hypoglycemia Protocol Stop: 08/25/23 02:55 Last Admin: 08/15/23 07:30 Dose: 15 gm Pantoprazole Sodium (Pantoprazole 40 Mg Tab) 40 mg PO BID [facility] Stop: 09/04/23 08:59 Last Admin: 08/15/23 08:03 Dose: 40 mg Potassium Chloride (Potassium Chloride Crtab 20 Meq Tabcr) 20 meq PO BID [facility] Stop: 09/04/23 20:59 Last Admin: 08/15/23 08:02 Dose: 20 meq Potassium Phosphate (Pot Phosphate Monobasic W/ Sod Tab) 2 tab PO QID [facility] Stop: 08/30/23 12:59 Last Admin: 08/15/23 08:02 Dose: 2 tab Tamsulosin HCl (Tamsulosin Hcl 0.4 Mg Cap) 0.4 mg PO HS [facility] Stop: 08/25/23 20:59 Last Admin: 08/14/23 21:12 Dose: 0.4 mg Venlafaxine HCl (Venlafaxine Hcl Xr 150 Mg Capxr) 150 mg PO DAILY [facility] Stop: 08/25/23 08:59 Last Admin: 08/15/23 08:03 Dose: 150 mg (5) Anemia Anemia type: unspecified type Qualified Code(s): D64.9 - Anemia, unspecified (6) HTN (hypertension) Hypertension type: primary hypertension Qualified Code(s): I10 - Essential (primary) hypertension (12) Sepsis Acute renal failure type: unspecified Sepsis acute organ dysfunction status: with acute organ dysfunction Sepsis type: sepsis due to unspecified organism Severe sepsis acute organ dysfunction type: acute renal failure Severe sepsis shock status: without septic shock Qualified Code(s): A41.9 - Sepsis, unspecified organism; R65.20 - Severe sepsis without septic shock; N17.9 - Acute kidney failure, unspecified
[2023-08-16 06:53] LABS: Hematocrit (blood only) 26.4 % (37.0-47.0); Hemoglobin 8.6 g/dl (12.0-16.0); Mean Corpuscular Hemoglobin 29.6 pg (25.0-34.0); Mean Corpuscular Hgb Conc 32.6 g/dL (32.0-36.0); Mean Corpuscular Volume 90.7 fL (80.0-100.0); Mean Platelet Volume 9.7 fL (9.4-12.4); Platelet Count 162 K/uL (130-400); RDW Coefficient of Variation 14.9 % (11.5-14.5); RDW Standard Deviation 47.8 fL (36.4-46.3); Red Blood Count 2.91 M/uL (4.20-5.40); White Blood Count 7.57 K/ul (4.8-10.8)
[2023-08-16 07:18] LABS: Prothrombin Time 11.4 Seconds (9.0-12.0)
[2023-08-16 07:19] LABS: BUN Creatinine Ratio 25.9 (10-20); Calcium 8.3 mg/dl (8.6-10.3); Est GFR (African American) 108.5 ml/min; Est GFR (Non-African American) 93.6 ml/min; Magnesium 1.6 mg/dl (1.7-2.4); Phosphorus 3.8 mg/dl (2.5-4.9); Potassium 3.6 mmol/L (3.5-5.1)
--- NOTE | 2023-08-16 08:05 | Hospitalist Progress Note ---
Date of Service August 16, 2023 Assessment & Plan (1) Gangrene: (2) Atrial fibrillation with rapid ventricular response: (3) Bacteremia: (4) Acute encephalopathy: (5) Anemia: (6) HTN (hypertension): (7) Septic shock: (8) Acute kidney injury: (9) Complicated urinary tract infection: (10) Hydronephrosis due to obstruction of ureter: (11) Ureterolithiasis: (12) Sepsis: Plan Pt is a 73yoF with PMHx significant for HTN, HLD, T2DM, HCV status posttreatment, anxiety/mood disorder who presented with confusion and right flank pain. Has had a complicated course that included severe sepsis in the setting of obstructive uropathy and complicated UTI, requiring pressor support and subsequent development of acrocyanosis with gangrene in her extremities. Complicated UTI Urolithiasis and obstructive uropathy Urosepsis Bacteremia Severe sepsis POA: Secondary to above. Respiratory rate/pulse rate/WBC elevated at presentation. Lactate and procalcitonin elevated at presentation. UA suggestive of infection, 07/26 Urine Cx - Klebsiella Pneumoniae 07/25 Bl Cx x2 - grew Klebsiella Pneumoniae Repeat Blood Cx x2 with NGTD Septic shock: Patient's blood pressure did not improve despite aggressive fluid resuscitation, was transferred to ICU for pressor support on admission. Likely metabolic encephalopathy: Secondary to above Gram-negative bacteremia: 07/25 blood cultures x2 positive for Klebsiella pneumoniae. Repeat blood culture 07/27 no growth to date. Urology evaluated, status post cystoscopy and right retrograde pyelogram/right ureteral stent placement 07/26/2023 Patient was started on cefepime 07/26, to ceftriaxone 07/27, d/w ID 07/28 - agreed w/ Rx. Continue. CTAP repeated 07/29 for concern of perinephric abscess, which was ruled out. Pt was treated with Cefepime or Ceftriaxone for a total of 14 days. Transitioned to ciprofloxacin from 08/09 (see below) Acrocyanosis Gangrene Acute CVA Patient had developed acrocyanosis and nasal tip cyanosis overnight on 07/26- 07/27. Patient has been off of pressor support [vasopressin and Levophed] from 07/26. 07/27 - Duplex arterial scan of UE and LE WNL. Venous Doppler BLE negative for DVT. Patient was started on heparin drip and Solu-Medrol for concern of cryoglobulinemia. 1/28 - acrocyanosis progressed. Discussed with various subspecialties including rheumatology/hematology/gardener florist. Peripheral blood smear with no schistocytes. TTP HUS ruled out. DIC from sepsis versus ischemic necrosis from recent pressor use was contemplated on differential diagnosis for acrocyanosis. Patient was transferred to ICU and was intubated due to tachypnea/shallow breathing. She also developed a fever, and was started on vancomycin/acyclovir/ampicillin on top of Rocephin for possible encephalitis versus meningitis. Lumbar puncture was deferred due to dropping platelets. MRI brain was obtained which revealed punctate right occipital lobe lacunar infarct. Pt seen by neurology. ANAHI screen was negative. PF4 antibody negative --HIT ruled out. Again no schistocytes noted on peripheral smearTTP HUS ruled out Haptoglobin within normal limits Patient was extubated on August Platelets improved as well. Continue [employer]TER, PT OT. Orthopedic consulted for possible debridement/surgical treatment. Seen by orthopedic on August 02, 2023 and August 04, 2023; do not recommend amputation at this point in time. Recommended allowing for gangrene to fully demarcate to determine what requires amputation and what can be salvaged. Orthopedics re-consulted on 08/08- appreciate recs -recommended waiting for further delineation which can take a few weeks, can be done electively. However pt needs monitoring for signs of infection -podiatry consult for lower extremity evaluation 08/09- Pt underwent leech therapy with orthopedics, per wound care milo mmendations (see ortho procedure note from same date). Received 0.5mg Ativan to help with anxiety during the process. Per ortho, will need abx coverage in the form of cipro 500mg BID, ordered. Appreciate recs. 08/10- Repeat leech therapy done by ortho. Continue with ordered cipro. Standing order for prn Ativan for leech therapy related anxiety placed. Appreciate ortho and wound recs. Consider ENT consult for similar nasal changes. 08/11- Continue leech therapy, cipro. Appreciate ortho recs, adding pillow, OT. Appreciate podiatry recs, similar to ortho recs. Daughter updated, notes that her nose lesion started the day after admission. 08/12- stable 08/13- leech therapy today, per ortho note, poss. last day of leech therapy. Appreciate recs. 08/15 - Discussed with Dr. Lay (orthopedic surgery) - Pt should continue on ciprofloxacin for 1 week since discontinuation of leech therapy. The last day leech therapy was August 13. Therefore the last day of ciprofloxacin should be August 20. She may continue occupational therapy for active and passive range of motion. There are no restrictions with therapy. She should elevate bilateral upper extremities. Recommendation is to use Danilo pillow, which has been previously ordered, as much as possible to elevate the extremity. Follow up w/ Dr. Lay ([facility]) in 10-14 days from discharge. New onset anemia Likely UGIB Prior hemoglobin level 13.9, admitting hemoglobin 11.1 Hemoccult positive melanotic stool noted at the ER GI evaluated 07/26, PPI drip changed to twice daily. Monitor H&H and transfuse as needed. Will likely need follow-up with GI as an outpatient. Hemoglobin down to 6.3 on 08/06; transfused 2 units- currently stable and increased to ~ 9 Monitor daily CBC Atrial fibrillation with RVR Demand ischemia Patient developed atrial fibrillation with RVR on July 30, 2023 Echocardiogram from 07/26 shows EF of 50 to 55% with mild concentric LVH. 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 Also on digoxin. Plan to transition to Cardizem 180 mg daily at discharge and reducing metoprolol to 25 mg once daily at discharge. Continue on Lovenox for anticoagulation. Plan to transition over to Coumadin after surgical interventions by orthopedics. Appreciate Cardiology recs Will transition to warfarin after leech therapy and ciprofloxacin treatment complete. plan to stop lovenox when INR is 2.0 Acute on chronic diastolic CHF: Chest x-ray from 08/01 showed pulmonary edema Echocardiogram as above Diuresis with IV Lasix 40 mg twice daily - stopped Continue IV diuretics as needed to get negative balance. Right occipital lobe lacunar infarct: Head and neck imaging with 07/29 MRI w/ punctate right occipital lobe lacunar infarct. Neurology consulted Continue statin, cont. anticoag. w/ heparin /warfarin Follow up with neurology as outpt. Acute kidney injury-resolved: Admitting creatinine of 1.6, past creatinine 0.89. Status post IV fluid, s/p pressor support. Likely prerenal secondary to septic shock. Improvement with IV hydration Acute metabolic encephalopathy- resolved Acute fever-resolved Thrombocytopenia- resolved Other chronic medical conditions: Continue with/resume home meds as and when able. Hypertension, continue on lisinopril. hyperlipidemia, on statin Rx. Continue DM2 on oral medications, reasonable control as of recent hemoglobin A1c of 7.1 last March 2023 HCV status post Rx Recent COVID-19 illness from 2 weeks ago, monitor respiratory symptoms. Diet: HH/DMII, minced and moist CODE STATUS: Full code DVT prophylaxis: Lovenox Dispo: Pt accepted at [facility]- Patient has poor peripheral vascular access with only 1 peripheral IV access. PICC line consent was obtained from the daughter; unable to place as per vascular team due to poor access. Patient currently has right IJ central line. Previous provider discussed with nursing to attempt peripheral IV line placement. Removal of central line after placement of other IV access. Contact: chintan Estrella ([phone]) Admission and Anticipated Discharge Date Admission Date: July 26, 2023 Subjective Pt seen in follow up - had complicated hosp. stay - urosepsis, Afib w/ RVR, DIC, CVA, acrocyanosis/ gangrene Pt laying in bed in NAD She is awake, alert able to answer some questions appropriately. Her brother and his are present at the bedside, and patient recognizes them easily, and tells me their names. She is still little hesitant to tell me when I ask her about her hospital course, she nods and agrees when I am telling her about her hospital course. Denies fever chills chest pain shortness of breath abdominal pain nausea vomiting. Discussed with Dr. Lay (orthopedic surgery) yesterday, over the phone, leech therapy is finished now, he recommends to continue ciprofloxacin for 1 more week since leech therapy is finished. Then for several more weeks, they will observe before any final surgical treatment. He is in agreement that patient could be discharged from the hospital at this point. Pt's RN also present at the bedside and discussed with. Review of Systems Review of Systems: All systems reviewed & are unremarkable except as noted in Subjective Physical Exam Physical Exam: General: WD/WN F in NAD HEENT: NC/AT Chest: Nontender to palpation CV: RRR Resp: no increased effort of breathing, CTAB Abdomen: Soft Neuro: Awake, able to answer some simple questions appropriately, speech fluent, no facial asymmetry, moves extremities. left arm seems weaker Extremities: blackened hands and feet, hands elevated on pillows Skin: blackened hands and feet, noted bullae Results & Data Results & Data Vital Signs (Past 12 Hours) Vital Signs Temp Pulse Pulse Resp BP BP Pulse Ox 08/16/23 07:57 36.9 C 83 18 157/74 H 95 08/16/23 02:53 37 C 82 18 164/84 H 95 08/15/23 23:00 85 08/15/23 23:00 37 C 79 18 144/68 H 93 08/15/23 20:30 O2 Del Method 08/16/23 07:57 Room Air 08/16/23 02:53 Room Air 08/15/23 23:00 08/15/23 23:00 Room Air 08/15/23 20:30 Room Air Laboratory Results 08/16/23 08/16/23 08/15/23 Range/Units 07:12 06:28 20:39 WBC 7.57 (4.8-10.8) K/ul RBC 2.91 L (4.20-5.40) M/uL Hgb 8.6 L (12.0-16.0) g/dl Hct 26.4 L (37.0-47.0) % MCV 90.7 (80.0-100.0) fL MCH 29.6 (25.0-34.0) pg MCHC 32.6 (32.0-36.0) g/dL RDW Std Deviation 47.8 H (36.4-46.3) fL RDW Coeff of Mary 14.9 H (11.5-14.5) % Plt Count 162 (130-400) K/uL MPV 9.7 (9.4-12.4) fL PT 11.4 (9.0-12.0) Seconds INR 1.0 (0.9-1.1) Sodium 137 (136-145) mmol/L Potassium 3.6 (3.5-5.1) mmol/L Chloride 105 (98-107) mmol/L Carbon Dioxide 26 (21-32) mmol/L Anion Gap 6 (3-11) BUN 14 (6-23) mg/dl Creatinine 0.54 L (0.6-1.2) mg/dl Est Cr Clr Drug Dosing 99.0 ml/min Est GFR ( Amer) 108.5 ml/min Est GFR (Non-Af Amer) 93.6 ml/min BUN/Creatinine Ratio 25.9 H (10-20) Glucose 141 H (70-99(Fasting)) mg/dl POC Glucose 139 H 140 H (70-99) mg/dl Calcium 8.3 L (8.6-10.3) mg/dl Phosphorus 3.8 (2.5-4.9) mg/dl Magnesium 1.6 L (1.7-2.4) mg/dl 08/15/23 08/15/23 08/15/23 Range/Units 16:08 11:21 11:19 WBC (4.8-10.8) K/ul RBC (4.20-5.40) M/uL Hgb (12.0-16.0) g/dl Hct (37.0-47.0) % MCV (80.0-100.0) fL MCH (25.0-34.0) pg MCHC (32.0-36.0) g/dL RDW Std Deviation (36.4-46.3) fL RDW Coeff of Mary (11.5-14.5) % Plt Count (130-400) K/uL MPV (9.4-12.4) fL PT (9.0-12.0) Seconds INR (0.9-1.1) Sodium (136-145) mmol/L Potassium (3.5-5.1) mmol/L Chloride (98-107) mmol/L Carbon Dioxide (21-32) mmol/L Anion Gap (3-11) BUN (6-23) mg/dl Creatinine (0.6-1.2) mg/dl Est Cr Clr Drug Dosing ml/min Est GFR ( Amer) ml/min Est GFR (Non-Af Amer) ml/min BUN/Creatinine Ratio (10-20) Glucose (70-99(Fasting)) mg/dl POC Glucose 111 H 124 H 55 L* (70-99) mg/dl Calcium (8.6-10.3) mg/dl Phosphorus (2.5-4.9) mg/dl Magnesium (1.7-2.4) mg/dl Medications Administered Current Inpatient Medications Acetaminophen (Acetaminophen Susp 500 Mg/15.6 Ml Udp) 500 mg PO Q6H PRN PRN Reason: Fever Stop: 08/30/23 22:27 Last Admin: 08/11/23 02:37 Dose: 500 mg Atorvastatin Calcium (Atorvastatin 40 Mg Tab) 40 mg PO QAM [facility] Stop: 08/25/23 08:59 Last Admin: 08/15/23 08:03 Dose: 40 mg Ciprofloxacin (Ciprofloxacin 500 Mg Tab) 500 mg PO BID NILDA; Protocol Stop: 09/20/23 21:44 Last Admin: 08/15/23 20:55 Dose: 500 mg Dextrose (Dextrose 50% 50 Ml Syringe) 25 - 50 ml IV UD PRN; Protocol PRN Reason: Hypoglycemia Protocol Stop: 08/25/23 02:55 Last Admin: 07/28/23 21:52 Dose: 50 ml Digoxin (Digoxin 0.125 Mg Tab) 0.125 mg PO DAILY@1600 [facility] Stop: 09/02/23 15:59 Last Admin: 08/15/23 16:25 Dose: 0.125 mg Diltiazem HCl (Diltiazem Hcl 60 Mg Tab) 60 mg PO TID [facility] Stop: 09/04/23 20:59 Last Admin: 08/15/23 20:56 Dose: 60 mg Enoxaparin Sodium (Enoxaparin 80 Mg/0.8 Ml Syr) 80 mg SQ Q12H [facility] Stop: 09/04/23 07:59 Last Admin: 08/15/23 20:53 Dose: 80 mg Glucagon (Glucagon For Inj 1 Mg Vial) 1 mg SQ UD PRN; Protocol PRN Reason: Hypoglycemia Protocol Stop: 08/25/23 02:55 Glucose (Glucose 10 Tab/Tube) 4 - 8 tab PO UD PRN; Protocol PRN Reason: Hypoglycemia Treatment Stop: 08/25/23 02:55 Glucose (Glucose 40% Gel 15 Gm Tube) 15 - 30 gm PO UD PRN; Protocol PRN Reason: Hypoglycemia Protocol Stop: 08/25/23 02:55 Heparin Sodium (Beef Lung) (Heparin 10 Unit/Ml 5 Ml Flush) 5 ml FLUSH PRN PRN PRN Reason: Flush Stop: 09/11/23 08:42 Lorazepam 0.5 mg/ Syringe 0.5 mls @ 2 mls/min IV DAILY PRN PRN Reason: anxiety related to leech Rx Stop: 09/09/23 16:07 Magnesium Sulfate/Dextrose (Magnesium Sulfate / D5w) 1 gm in 100 mls @ 50 mls/hr IV ONE ONE Stop: 08/16/23 10:04 Insulin Aspart (Insulin Aspart Per Unit Charge) 0 units SC ACHS [facility]; Protocol Stop: 08/28/23 05:59 Last Admin: 08/15/23 20:57 Dose: Not Given Insulin Glargine (Lantus Per Unit Charge) [facility] Protocol Stop: 09/04/23 11:29 Last Admin: 08/15/23 08:02 Dose: 10 units Lisinopril (Lisinopril 20 Mg Tab) [facility] [place] Stop: 09/09/23 06:29 Last Admin: 08/15/23 08:03 Dose: 20 mg Magnesium Chloride (Magnesium Chloride W/Calcium 64mg Delayed Rel Tab) 64 mg PO BID [facility] Stop: 09/09/23 09:29 Last Admin: 08/15/23 20:57 Dose: 64 mg Metoprolol Succinate (Metoprolol Succ 25mg Ext Rel Tab) 25 mg PO [id number] [facility] Stop: 09/04/23 16:59 Last Admin: 08/15/23 16:25 Dose: 25 mg Miscellaneous (Carbohydrates For Hypoglycemia ) 15 - 30 gm PO UD PRN PRN Reason: Hypoglycemia Protocol Stop: 08/25/23 02:55 Last Admin: 08/15/23 07:30 Dose: 15 gm Pantoprazole Sodium (Pantoprazole 40 Mg Tab) 40 mg PO BID [facility] Stop: 09/04/23 08:59 Last Admin: 08/15/23 20:58 Dose: 40 mg Potassium Chloride (Potassium Chloride Crtab 20 Meq Tabcr) 20 meq PO BID [facility] Stop: 09/04/23 20:59 Last Admin: 08/15/23 21:02 Dose: 20 meq Potassium Phosphate (Pot Phosphate Monobasic W/ Sod Tab) 2 tab PO QID [facility] Stop: 08/30/23 12:59 Last Admin: 08/15/23 21:02 Dose: 2 tab Tamsulosin HCl (Tamsulosin Hcl 0.4 Mg Cap) 0.4 mg PO HS [facility] Stop: 08/25/23 20:59 Last Admin: 08/15/23 20:59 Dose: 0.4 mg Venlafaxine HCl (Venlafaxine Hcl Xr 150 Mg Capxr) 150 mg PO DAILY NILDA Stop: 08/25/23 08:59 Last Admin: 08/15/23 08:03 Dose: 150 mg (5) Anemia Anemia type: unspecified type Qualified Code(s): D64.9 - Anemia, unspecified (6) HTN (hypertension) Hypertension type: primary hypertension Qualified Code(s): I10 - Essential (primary) hypertension (12) Sepsis Acute renal failure type: unspecified Sepsis acute organ dysfunction status: with acute organ dysfunction Sepsis type: sepsis due to unspecified organism Severe sepsis acute organ dysfunction type: acute renal failure Severe sepsis shock status: without septic shock Qualified Code(s): A41.9 - Sepsis, unspecified organism; R65.20 - Severe sepsis without septic shock; N17.9 - Acute kidney failure, unspecified
[2023-08-16] MEDS: MAGNESIUM SULFATE / D5W 1 GM/100 ML BAG IV ONE (08:25)
[2023-08-16] MEDS: WARFARIN SOD 3 MG TAB PO SCH (18:07)
--- NOTE | 2023-08-17 08:10 | Hospitalist Progress Note ---
Date of Service August 17, 2023 Assessment & Plan (1) Gangrene: (2) Atrial fibrillation with rapid ventricular response: (3) Bacteremia: (4) Acute encephalopathy: (5) Anemia: (6) HTN (hypertension): (7) Septic shock: (8) Acute kidney injury: (9) Complicated urinary tract infection: (10) Hydronephrosis due to obstruction of ureter: (11) Ureterolithiasis: (12) Sepsis: Plan Pt is a 73yoF with PMHx significant for HTN, HLD, T2DM, HCV status posttreatment, anxiety/mood disorder who presented with confusion and right flank pain. Has had a complicated course that included severe sepsis in the setting of obstructive uropathy and complicated UTI, requiring pressor support and subsequent development of acrocyanosis with gangrene in her extremities. Complicated UTI Urolithiasis and obstructive uropathy Urosepsis Bacteremia Severe sepsis POA: Secondary to above. Respiratory rate/pulse rate/WBC elevated at presentation. Lactate and procalcitonin elevated at presentation. UA suggestive of infection, 07/26 Urine Cx - Klebsiella Pneumoniae 07/25 Bl Cx x2 - grew Klebsiella Pneumoniae Repeat Blood Cx x2 with NGTD Septic shock: Patient's blood pressure did not improve despite aggressive fluid resuscitation, was transferred to ICU for pressor support on admission. Likely metabolic encephalopathy: Secondary to above Gram-negative bacteremia: 07/25 blood cultures x2 positive for Klebsiella pneumoniae. Repeat blood culture 07/27 no growth to date. Urology evaluated, status post cystoscopy and right retrograde pyelogram/right ureteral stent placement 07/26/2023 Patient was started on cefepime 07/26, to ceftriaxone 07/27, d/w ID 07/28 - agreed w/ Rx. Continue. CTAP repeated 07/29 for concern of perinephric abscess, which was ruled out. Pt was treated with Cefepime or Ceftriaxone for a total of 14 days. Transitioned to ciprofloxacin from 08/09 (see below) Acrocyanosis Gangrene Acute CVA Patient had developed acrocyanosis and nasal tip cyanosis overnight on 07/26- 07/27. Patient has been off of pressor support [vasopressin and Levophed] from 07/26. 07/27 - Duplex arterial scan of UE and LE WNL. Venous Doppler BLE negative for DVT. Patient was started on heparin drip and Solu-Medrol for concern of cryoglobulinemia. 1/28 - acrocyanosis progressed. Discussed with various subspecialties including rheumatology/hematology/wheat farmer. Peripheral blood smear with no schistocytes. TTP HUS ruled out. DIC from sepsis versus ischemic necrosis from recent pressor use was contemplated on differential diagnosis for acrocyanosis. Patient was transferred to ICU and was intubated due to tachypnea/shallow breathing. She also developed a fever, and was started on vancomycin/acyclovir/ampicillin on top of Rocephin for possible encephalitis versus meningitis. Lumbar puncture was deferred due to dropping platelets. MRI brain was obtained which revealed punctate right occipital lobe lacunar infarct. Pt seen by neurology. ANAHI screen was negative. PF4 antibody negative --HIT ruled out. Again no schistocytes noted on peripheral smearTTP HUS ruled out Haptoglobin within normal limits Patient was extubated on August Platelets improved as well. Continue UNIT ASSISTANT, PT OT. Orthopedic consulted for possible debridement/surgical treatment. Seen by orthopedic on August 02, 2023 and August 04, 2023; do not recommend amputation at this point in time. Recommended allowing for gangrene to fully demarcate to determine what requires amputation and what can be salvaged. Orthopedics re-consulted on 08/08- appreciate recs -recommended waiting for further delineation which can take a few weeks, can be done electively. However pt needs monitoring for signs of infection -podiatry consult for lower extremity evaluation 08/09- Pt underwent leech therapy with orthopedics, per wound care milo mmendations (see ortho procedure note from same date). Received 0.5mg Ativan to help with anxiety during the process. Per ortho, will need abx coverage in the form of cipro 500mg BID, ordered. Appreciate recs. 08/10- Repeat leech therapy done by ortho. Continue with ordered cipro. Standing order for prn Ativan for leech therapy related anxiety placed. Appreciate ortho and wound recs. Consider ENT consult for similar nasal changes. 08/11- Continue leech therapy, cipro. Appreciate ortho recs, adding pillow, OT. Appreciate podiatry recs, similar to ortho recs. Daughter updated, notes that her nose lesion started the day after admission. 08/12- stable 08/13- leech therapy today, per ortho note, poss. last day of leech therapy. Appreciate recs. 08/15 - Discussed with Dr. Lay (orthopedic surgery) - Pt should continue on ciprofloxacin for 1 week since discontinuation of leech therapy. The last day leech therapy was August 13. Therefore the last day of ciprofloxacin should be August 20. She may continue occupational therapy for active and passive range of motion. There are no restrictions with therapy. She should elevate bilateral upper extremities. Recommendation is to use Danilo pillow, which has been previously ordered, as much as possible to elevate the extremity. Follow up w/ Dr. Lay ([facility]) in 10-14 days from discharge. New onset anemia Likely UGIB Prior hemoglobin level 13.9, admitting hemoglobin 11.1 Hemoccult positive melanotic stool noted at the ER GI evaluated 07/26, PPI drip changed to twice daily. Monitor H&H and transfuse as needed. Will likely need follow-up with GI as an outpatient. Hemoglobin down to 6.3 on 08/06; transfused 2 units- currently stable and increased to ~ 9 Monitor daily CBC Atrial fibrillation with RVR Demand ischemia Patient developed atrial fibrillation with RVR on July 30, 2023 Echocardiogram from 07/26 shows EF of 50 to 55% with mild concentric LVH. 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 Also on digoxin. Transitioned to Cardizem 180 mg daily as planning for discharge next week and reducing metoprolol to 25 mg once daily (as per cardiology recommendations for DC) Continue on Lovenox for anticoagulation. Appreciate Cardiology recs Started warfarin. plan to stop lovenox when INR is 2.0 Acute on chronic diastolic CHF: Chest x-ray from 08/01 showed pulmonary edema Echocardiogram as above Diuresis with IV Lasix 40 mg twice daily - stopped Continue IV diuretics as needed to get negative balance. Right occipital lobe lacunar infarct: Head and neck imaging with 07/29 MRI w/ punctate right occipital lobe lacunar infarct. Neurology consulted Continue statin, cont. anticoag. w/ heparin /warfarin Follow up with neurology as outpt. Acute kidney injury-resolved: Admitting creatinine of 1.6, past creatinine 0.89. Status post IV fluid, s/p pressor support. Likely prerenal secondary to septic shock. Improvement with IV hydration Acute metabolic encephalopathy- resolved Acute fever-resolved Thrombocytopenia- resolved Other chronic medical conditions: Continue with/resume home meds as and when able. Hypertension, continue on lisinopril. hyperlipidemia, on statin Rx. Continue DM2 on oral medications, reasonable control as of recent hemoglobin A1c of 7.1 last March 2023 HCV status post Rx Recent COVID-19 illness from 2 weeks ago, monitor respiratory symptoms. Diet: HH/DMII, minced and moist CODE STATUS: Full code DVT prophylaxis: Lovenox Dispo: Pt accepted [facility]- Patient has poor peripheral vascular access with only 1 peripheral IV access. PICC line consent was obtained from the daughter; unable to place as per vascular team due to poor access. Patient currently has right IJ central line. Previous provider discussed with nursing to attempt peripheral IV line placement. Removal of central line after placement of other IV access. Contact: daughter Delores ([phone]) Admission and Anticipated Discharge Date Admission Date: July 26, 2023 Subjective Pt seen in follow up - had complicated hosp. stay - urosepsis, Afib w/ RVR, DIC, CVA, acrocyanosis/ gangrene Pt laying in bed in NAD She is awake, alert able to answer simple questions appropriately. Denies fever chills chest pain shortness of breath abdominal pain nausea vomiting. Review of Systems Review of Systems: All systems reviewed & are unremarkable except as noted in Subjective Physical Exam Physical Exam: General: WD/WN F in NAD HEENT: NC/AT Chest: Nontender to palpation CV: RRR Resp: no increased effort of breathing, CTAB Abdomen: Soft Neuro: Awake, able to answer some simple questions appropriately, speech fluent, no facial asymmetry, moves extremities. left arm seems weaker Extremities: blackened hands and feet, hands elevated on pillows Skin: blackened hands and feet, noted bullae Results & Data Results & Data Vital Signs (Past 12 Hours) Vital Signs Temp Pulse Pulse Pulse Resp BP Pulse Ox 08/17/23 07:54 36.8 C 79 18 142/80 H 95 08/17/23 04:30 37.2 C 75 18 142/77 H 96 08/16/23 23:52 36.5 C 77 17 120/59 L 96 08/16/23 23:00 81 08/16/23 21:00 O2 Del Method 08/17/23 07:54 Room Air 08/17/23 04:30 Room Air 08/16/23 23:52 Room Air 08/16/23 23:00 08/16/23 21:00 Room Air Laboratory Results 08/17/23 08/17/23 08/17/23 Range/Units 16:38 11:31 08:26 WBC 6.19 (4.8-10.8) K/ul RBC 2.83 L (4.20-5.40) M/uL Hgb 8.3 L (12.0-16.0) g/dl Hct 25.6 L (37.0-47.0) % MCV 90.5 (80.0-100.0) fL MCH 29.3 (25.0-34.0) pg MCHC 32.4 (32.0-36.0) g/dL RDW Std Deviation 48.4 H (36.4-46.3) fL RDW Coeff of Mary 15.1 H (11.5-14.5) % Plt Count 154 (130-400) K/uL MPV 9.8 (9.4-12.4) fL PT 11.2 (9.0-12.0) Seconds INR 1.0 (0.9-1.1) Sodium 137 (136-145) mmol/L Potassium 4.0 (3.5-5.1) mmol/L Chloride 106 (98-107) mmol/L Carbon Dioxide 26 (21-32) mmol/L Anion Gap 5 (3-11) BUN 16 (6-23) mg/dl Creatinine 0.60 (0.6-1.2) mg/dl Est Cr Clr Drug Dosing 89.1 ml/min Est GFR ( Amer) 104.8 ml/min Est GFR (Non-Af Amer) 90.4 ml/min BUN/Creatinine Ratio 26.7 H (10-20) Glucose 141 H (70-99(Fasting)) mg/dl POC Glucose 123 H 131 H (70-99) mg/dl Calcium 8.3 L (8.6-10.3) mg/dl Phosphorus 3.6 (2.5-4.9) mg/dl Magnesium 1.8 (1.7-2.4) mg/dl 08/17/23 08/16/23 Range/Units 08:00 20:40 WBC (4.8-10.8) K/ul RBC (4.20-5.40) M/uL Hgb (12.0-16.0) g/dl Hct (37.0-47.0) % MCV (80.0-100.0) fL MCH (25.0-34.0) pg MCHC (32.0-36.0) g/dL RDW Std Deviation (36.4-46.3) fL RDW Coeff of Mary (11.5-14.5) % Plt Count (130-400) K/uL MPV (9.4-12.4) fL PT (9.0-12.0) Seconds INR (0.9-1.1) Sodium (136-145) mmol/L Potassium (3.5-5.1) mmol/L Chloride (98-107) mmol/L Carbon Dioxide (21-32) mmol/L Anion Gap (3-11) BUN (6-23) mg/dl Creatinine (0.6-1.2) mg/dl Est Cr Clr Drug Dosing ml/min Est GFR ( Amer) ml/min Est GFR (Non-Af Amer) ml/min BUN/Creatinine Ratio (10-20) Glucose (70-99(Fasting)) mg/dl POC Glucose 141 H 189 H (70-99) mg/dl Calcium (8.6-10.3) mg/dl Phosphorus (2.5-4.9) mg/dl Magnesium (1.7-2.4) mg/dl Medications Administered Current Inpatient Medications Acetaminophen (Acetaminophen Susp 500 Mg/15.6 Ml Udp) 500 mg PO Q6H PRN PRN Reason: Fever Stop: 08/30/23 22:27 Last Admin: 08/11/23 02:37 Dose: 500 mg Atorvastatin Calcium (Atorvastatin 40 Mg Tab) 40 mg PO QAM NILDA Stop: 08/25/23 08:59 Last Admin: 08/16/23 08:26 Dose: 40 mg Ciprofloxacin (Ciprofloxacin 500 Mg Tab) 500 mg PO BID NILDA; Protocol Stop: 09/20/23 21:44 Last Admin: 08/16/23 21:07 Dose: 500 mg Dextrose (Dextrose 50% 50 Ml Syringe) 25 - 50 ml IV UD PRN; Protocol PRN Reason: Hypoglycemia Protocol Stop: 08/25/23 02:55 Last Admin: 07/28/23 21:52 Dose: 50 ml Digoxin (Digoxin 0.125 Mg Tab) 0.125 mg PO DAILY@1600 [facility] Stop: 09/02/23 15:59 Last Admin: 08/16/23 16:43 Dose: 0.125 mg Diltiazem HCl (Diltiazem Hcl 180 Mg Capcr) 180 mg PO QAM [facility] Stop: 09/16/23 08:59 Enoxaparin Sodium (Enoxaparin 80 Mg/0.8 Ml Syr) 80 mg SQ Q12H [facility] Stop: 09/04/23 07:59 Last Admin: 08/16/23 21:05 Dose: 80 mg Glucagon (Glucagon For Inj 1 Mg Vial) 1 mg SQ UD PRN; Protocol PRN Reason: Hypoglycemia Protocol Stop: 08/25/23 02:55 Glucose (Glucose 10 Tab/Tube) 4 - 8 tab PO UD PRN; Protocol PRN Reason: Hypoglycemia Treatment Stop: 08/25/23 02:55 Glucose (Glucose 40% Gel 15 Gm Tube) 15 - 30 gm PO UD PRN; Protocol PRN Reason: Hypoglycemia Protocol Stop: 08/25/23 02:55 Heparin Sodium (Beef Lung) (Heparin 10 Unit/Ml 5 Ml Flush) 5 ml FLUSH PRN PRN PRN Reason: Flush Stop: 09/11/23 08:42 Last Admin: 08/16/23 08:38 Dose: 5 ml Lorazepam 0.5 mg/ Syringe 0.5 mls @ 2 mls/min IV DAILY PRN PRN Reason: anxiety related to leech Rx Stop: 09/09/23 16:07 Insulin Aspart (Insulin Aspart Per Unit Charge) 0 units [facility]; Protocol Stop: 08/28/23 05:59 Last Admin: 08/16/23 21:03 Dose: 2 units Insulin Glargine (Lantus Per Unit Charge) 10 units SC [facility]; Protocol Stop: 09/04/23 11:29 Last Admin: 08/16/23 08:31 Dose: 10 units Lisinopril (Lisinopril 20 Mg Tab) 20 mg PO [facility] Stop: 09/09/23 06:29 Last Admin: 08/16/23 08:26 Dose: 20 mg Magnesium Chloride (Magnesium Chloride W/Calcium 64mg Delayed Rel Tab) 64 mg PO BID [facility] Stop: 09/09/23 09:29 Last Admin: 08/16/23 21:07 Dose: 64 mg Metoprolol Succinate (Metoprolol Succ 25mg Ext Rel Tab) 25 mg PO QAM [facility] Stop: 09/16/23 08:59 Miscellaneous (Carbohydrates For Hypoglycemia ) 15 - 30 gm PO UD PRN PRN Reason: Hypoglycemia Protocol Stop: 08/25/23 02:55 Last Admin: 08/15/23 07:30 Dose: 15 gm Pantoprazole Sodium (Pantoprazole 40 Mg Tab) 40 mg PO BID NILDA Stop: 09/04/23 08:59 Last Admin: 08/16/23 21:08 Dose: 40 mg Potassium Chloride (Potassium Chloride Crtab 20 Meq Tabcr) 20 meq PO BID [facility] Stop: 09/04/23 20:59 Last Admin: 08/16/23 21:11 Dose: 20 meq Potassium Phosphate (Pot Phosphate Monobasic W/ Sod Tab) 2 tab PO QID [facility] Stop: 08/30/23 12:59 Last Admin: 08/16/23 21:11 Dose: 2 tab Tamsulosin HCl (Tamsulosin Hcl 0.4 Mg Cap) 0.4 mg PO HS [facility] Stop: 08/25/23 20:59 Last Admin: 08/16/23 21:08 Dose: 0.4 mg Venlafaxine HCl (Venlafaxine Hcl Xr 150 Mg Capxr) 150 mg PO DAILY [facility] Stop: 08/25/23 08:59 Last Admin: 08/16/23 08:25 Dose: 150 mg Warfarin Sodium (Warfarin Sod 3 Mg Tab) 3 mg PO DAILY@1600 [facility] Stop: 09/15/23 17:34 Last Admin: 08/16/23 18:07 Dose: 3 mg (5) Anemia Anemia type: unspecified type Qualified Code(s): D64.9 - Anemia, unspecified (6) HTN (hypertension) Hypertension type: primary hypertension Qualified Code(s): I10 - Essential (primary) hypertension (12) Sepsis Acute renal failure type: unspecified Sepsis acute organ dysfunction status: with acute organ dysfunction Sepsis type: sepsis due to unspecified organism Severe sepsis acute organ dysfunction type: acute renal failure Severe sepsis shock status: without septic shock Qualified Code(s): A41.9 - Sepsis, unspecified organism; R65.20 - Severe sepsis without septic shock; N17.9 - Acute kidney failure, unspecified
[2023-08-17] MEDS: METOPROLOL SUCC 25MG EXT REL TAB PO SCH (08:16)
[2023-08-17] MEDS: dilTIAZem HCL 180 MG CAPCR PO SCH (08:18)
[2023-08-17 08:48] LABS: Hematocrit (blood only) 25.6 % (37.0-47.0); Hemoglobin 8.3 g/dl (12.0-16.0); Mean Corpuscular Hemoglobin 29.3 pg (25.0-34.0); Mean Corpuscular Hgb Conc 32.4 g/dL (32.0-36.0); Mean Corpuscular Volume 90.5 fL (80.0-100.0); Mean Platelet Volume 9.8 fL (9.4-12.4); Platelet Count 154 K/uL (130-400); RDW Coefficient of Variation 15.1 % (11.5-14.5); RDW Standard Deviation 48.4 fL (36.4-46.3); Red Blood Count 2.83 M/uL (4.20-5.40); White Blood Count 6.19 K/ul (4.8-10.8)
[2023-08-17 09:03] LABS: BUN Creatinine Ratio 26.7 (10-20); Calcium 8.3 mg/dl (8.6-10.3); Creatinine Clr Calc Pharmacy 89.1 ml/min; Est GFR (African American) 104.8 ml/min; Est GFR (Non-African American) 90.4 ml/min; Magnesium 1.8 mg/dl (1.7-2.4); Phosphorus 3.6 mg/dl (2.5-4.9)
[2023-08-17 09:22] LABS: Prothrombin Time 11.2 Seconds (9.0-12.0)
[2023-08-17] MEDS: MELATONIN 3 MG TAB PO PRN (21:18)
[2023-08-18 06:40] LABS: Hematocrit (blood only) 24.4 % (37.0-47.0); Hemoglobin 7.9 g/dl (12.0-16.0); Mean Corpuscular Hemoglobin 29.7 pg (25.0-34.0); Mean Corpuscular Hgb Conc 32.4 g/dL (32.0-36.0); Mean Corpuscular Volume 91.7 fL (80.0-100.0); Platelet Count 150 K/uL (130-400); RDW Coefficient of Variation 15.4 % (11.5-14.5); RDW Standard Deviation 49.7 fL (36.4-46.3); Red Blood Count 2.66 M/uL (4.20-5.40); White Blood Count 5.71 K/ul (4.8-10.8)
[2023-08-18 06:57] LABS: BUN Creatinine Ratio 27.1 (10-20); Calcium 8.1 mg/dl (8.6-10.3); Est GFR (African American) 105.4 ml/min; Est GFR (Non-African American) 90.9 ml/min; Magnesium 1.6 mg/dl (1.7-2.4); Phosphorus 4.2 mg/dl (2.5-4.9); Potassium 3.8 mmol/L (3.5-5.1)
[2023-08-18 07:57] LABS: Prothrombin Time 11.4 Seconds (9.0-12.0)
--- NOTE | 2023-08-18 11:04 | Hospitalist Progress Note ---
Date of Service August 18, 2023 Assessment & Plan (1) Gangrene: (2) Atrial fibrillation with rapid ventricular response: (3) Bacteremia: (4) Acute encephalopathy: (5) Anemia: (6) HTN (hypertension): (7) Septic shock: (8) Acute kidney injury: (9) Complicated urinary tract infection: (10) Hydronephrosis due to obstruction of ureter: (11) Ureterolithiasis: (12) Sepsis: Plan Pt is a 73yoF with PMHx significant for HTN, HLD, T2DM, HCV status posttreatment, anxiety/mood disorder who presented with confusion and right flank pain. Has had a complicated course that included severe sepsis in the setting of obstructive uropathy and complicated UTI, requiring pressor support and subsequent development of acrocyanosis with gangrene in her extremities. Complicated UTI Urolithiasis and obstructive uropathy Urosepsis Bacteremia Severe sepsis POA: Secondary to above. Respiratory rate/pulse rate/WBC elevated at presentation. Lactate and procalcitonin elevated at presentation. UA suggestive of infection, 07/26 Urine Cx - Klebsiella Pneumoniae 07/25 Bl Cx x2 - grew Klebsiella Pneumoniae Repeat Blood Cx x2 with NGTD Septic shock: Patient's blood pressure did not improve despite aggressive fluid resuscitation, was transferred to ICU for pressor support on admission. Likely metabolic encephalopathy: Secondary to above Gram-negative bacteremia: 07/25 blood cultures x2 positive for Klebsiella pneumoniae. Repeat blood culture 07/27 no growth to date. Urology evaluated, status post cystoscopy and right retrograde pyelogram/right ureteral stent placement 07/26/2023 Patient was started on cefepime 07/26, to ceftriaxone 07/27, d/w ID 07/28 - agreed w/ Rx. Continue. CTAP repeated 07/29 for concern of perinephric abscess, which was ruled out. Pt was treated with Cefepime or Ceftriaxone for a total of 14 days. Transitioned to ciprofloxacin from 08/09 (see below) Acrocyanosis Gangrene Acute CVA Patient had developed acrocyanosis and nasal tip cyanosis overnight on 07/26- 07/27. Patient has been off of pressor support [vasopressin and Levophed] from 07/26. 07/27 - Duplex arterial scan of UE and LE WNL. Venous Doppler BLE negative for DVT. Patient was started on heparin drip and Solu-Medrol for concern of cryoglobulinemia. 1/28 - acrocyanosis progressed. Discussed with various subspecialties including rheumatology/hematology/egg processor. Peripheral blood smear with no schistocytes. TTP HUS ruled out. DIC from sepsis versus ischemic necrosis from recent pressor use was contemplated on differential diagnosis for acrocyanosis. Patient was transferred to ICU and was intubated due to tachypnea/shallow breathing. She also developed a fever, and was started on vancomycin/acyclovir/ampicillin on top of Rocephin for possible encephalitis versus meningitis. Lumbar puncture was deferred due to dropping platelets. MRI brain was obtained which revealed punctate right occipital lobe lacunar infarct. Pt seen by neurology. ANAHI screen was negative. PF4 antibody negative --HIT ruled out. Again no schistocytes noted on peripheral smearTTP HUS ruled out Haptoglobin within normal limits Patient was extubated on August Platelets improved as well. 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 Orthopedic consulted for possible debridement/surgical treatment. Seen by orthopedic on August 02, 2023 and August 04, 2023; do not recommend amputation at this point in time. Recommended allowing for gangrene to fully demarcate to determine what requires amputation and what can be salvaged. Orthopedics re-consulted on 08/08- appreciate recs -recommended waiting for further delineation which can take a few weeks, can be done electively. However pt needs monitoring for signs of infection -podiatry consult for lower extremity evaluation 08/09- Pt underwent leech therapy with orthopedics, per wound care milo mmendations (see ortho procedure note from same date). Received 0.5mg Ativan to help with anxiety during the process. Per ortho, will need abx coverage in the form of cipro 500mg BID, ordered. Appreciate recs. 08/10- Repeat leech therapy done by ortho. Continue with ordered cipro. Standing order for prn Ativan for leech therapy related anxiety placed. Appreciate ortho and wound recs. Consider ENT consult for similar nasal changes. 08/11- Continue leech therapy, cipro. Appreciate ortho recs, adding pillow, OT. Appreciate podiatry recs, similar to ortho recs. Daughter updated, notes that her nose lesion started the day after admission. 08/12- stable 08/13- leech therapy today, per ortho note, poss. last day of leech therapy. Appreciate recs. 08/15 - Discussed with Dr. Lay (orthopedic surgery) - Pt should continue on ciprofloxacin for 1 week since discontinuation of leech therapy. The last day leech therapy was August 13. Therefore the last day of ciprofloxacin should be August 20. She may continue occupational therapy for active and passive range of motion. There are no restrictions with therapy. She should elevate bilateral upper extremities. Recommendation is to use Danilo pillow, which has been previously ordered, as much as possible to elevate the extremity. Follow up w/ Dr. Lay ([facility]) in 10-14 days from discharge. New onset anemia Likely UGIB Prior hemoglobin level 13.9, admitting hemoglobin 11.1 Hemoccult positive melanotic stool noted at the ER GI evaluated 07/26, PPI drip changed to twice daily. Monitor H&H and transfuse as needed. Will likely need follow-up with GI as an outpatient. Hemoglobin down to 6.3 on 08/06; transfused 2 units- currently stable and increased to ~ 9 Monitor daily CBC Atrial fibrillation with RVR Demand ischemia Patient developed atrial fibrillation with RVR on July 30, 2023 Echocardiogram from 07/26 shows EF of 50 to 55% with mild concentric LVH. 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 Also on digoxin. Transitioned to Cardizem 180 mg daily as planning for discharge next week and reducing metoprolol to 25 mg once daily (as per cardiology recommendations for DC) Continue on Lovenox for anticoagulation. Appreciate Cardiology recs Started warfarin. plan to stop lovenox when INR is 2.0 Acute on chronic diastolic CHF: Chest x-ray from 08/01 showed pulmonary edema Echocardiogram as above Diuresis with IV Lasix 40 mg twice daily - stopped Continue IV diuretics as needed to get negative balance. Right occipital lobe lacunar infarct: Head and neck imaging with 07/29 MRI w/ punctate right occipital lobe lacunar infarct. Neurology consulted Continue statin, cont. anticoag. w/ heparin /warfarin Follow up with neurology as outpt. Acute kidney injury-resolved: Admitting creatinine of 1.6, past creatinine 0.89. Status post IV fluid, s/p pressor support. Likely prerenal secondary to septic shock. Improvement with IV hydration Acute metabolic encephalopathy- resolved Acute fever-resolved Thrombocytopenia- resolved Other chronic medical conditions: Continue with/resume home meds as and when able. Hypertension, continue on lisinopril. hyperlipidemia, on statin Rx. Continue DM2 on oral medications, reasonable control as of recent hemoglobin A1c of 7.1 last March 2023 HCV status post Rx Recent COVID-19 illness from 2 weeks ago, monitor respiratory symptoms. Diet: HH/DMII, minced and moist CODE STATUS: Full code DVT prophylaxis: Lovenox Dispo: Pt accepted at [place] [facility]- Patient has poor peripheral vascular access with only 1 peripheral IV access. PICC line consent was obtained from the daughter; unable to place as per vascular team due to poor access. Patient currently has right IJ central line. Previous provider discussed with nursing to attempt peripheral IV line placement. Removal of central line after placement of other IV access. Contact: chintan Estrella ([phone]) Admission and Anticipated Discharge Date Admission Date: July 26, 2023 Subjective Pt seen in follow up - had complicated hosp. stay - urosepsis, Afib w/ RVR, DIC, CVA, acrocyanosis/ gangrene Pt laying in bed in NAD Answers simple questions appropriately. Denies fever chills chest pain shortness of breath abdominal pain nausea vomiting. Review of Systems Review of Systems: All systems reviewed & are unremarkable except as noted in Subjective Physical Exam Physical Exam: General: WD/WN F in NAD HEENT: NC/AT Chest: Nontender to palpation CV: RRR Resp: no increased effort of breathing, CTAB Abdomen: Soft Neuro: Awake, able to answer some simple questions appropriately, speech fluent, no facial asymmetry, moves extremities. left arm seems weaker Extremities: blackened hands and feet, hands elevated on pillows Skin: blackened hands and feet, noted bullae Results & Data Results & Data Vital Signs (Past 12 Hours) Vital Signs Temp Pulse Pulse Resp BP BP Pulse Ox 08/18/23 08:00 36.8 C 77 77 20 151/72 H 99 08/18/23 03:32 36.8 C 78 17 119/61 99 08/18/23 01:33 08/18/23 00:11 36.9 C 77 17 133/63 98 O2 Del Method O2 Flow Rate 08/18/23 08:00 Trach Collar 6 08/18/23 03:32 Room Air 08/18/23 01:33 Room Air 08/18/23 00:11 Room Air Laboratory Results 08/18/23 08/18/23 08/17/23 Range/Units 07:06 06:04 21:15 WBC 5.71 (4.8-10.8) K/ul RBC 2.66 L (4.20-5.40) M/uL Hgb 7.9 L (12.0-16.0) g/dl Hct 24.4 L (37.0-47.0) % MCV 91.7 (80.0-100.0) fL MCH 29.7 (25.0-34.0) pg MCHC 32.4 (32.0-36.0) g/dL RDW Std Deviation 49.7 H (36.4-46.3) fL RDW Coeff of Mary 15.4 H (11.5-14.5) % Plt Count 150 (130-400) K/uL MPV 10.0 (9.4-12.4) fL PT 11.4 (9.0-12.0) Seconds INR 1.0 (0.9-1.1) Sodium 137 (136-145) mmol/L Potassium 3.8 (3.5-5.1) mmol/L Chloride 105 (98-107) mmol/L Carbon Dioxide 28 (21-32) mmol/L Anion Gap 4 (3-11) BUN 16 (6-23) mg/dl Creatinine 0.59 L (0.6-1.2) mg/dl Est Cr Clr Drug Dosing 87.0 ml/min Est GFR ( Amer) 105.4 ml/min Est GFR (Non-Af Amer) 90.9 ml/min BUN/Creatinine Ratio 27.1 H (10-20) Glucose 135 H (70-99(Fasting)) mg/dl POC Glucose 103 H 146 H (70-99) mg/dl Calcium 8.1 L (8.6-10.3) mg/dl Phosphorus 4.2 (2.5-4.9) mg/dl Magnesium 1.6 L (1.7-2.4) mg/dl 08/17/23 08/17/23 Range/Units 16:38 11:31 WBC (4.8-10.8) K/ul RBC (4.20-5.40) M/uL Hgb (12.0-16.0) g/dl Hct (37.0-47.0) % MCV (80.0-100.0) fL MCH (25.0-34.0) pg MCHC (32.0-36.0) g/dL RDW Std Deviation (36.4-46.3) fL RDW Coeff of Mary (11.5-14.5) % Plt Count (130-400) K/uL MPV (9.4-12.4) fL PT (9.0-12.0) Seconds INR (0.9-1.1) Sodium (136-145) mmol/L Potassium (3.5-5.1) mmol/L Chloride (98-107) mmol/L Carbon Dioxide (21-32) mmol/L Anion Gap (3-11) BUN (6-23) mg/dl Creatinine (0.6-1.2) mg/dl Est Cr Clr Drug Dosing ml/min Est GFR ( Amer) ml/min Est GFR (Non-Af Amer) ml/min BUN/Creatinine Ratio (10-20) Glucose (70-99(Fasting)) mg/dl POC Glucose 123 H 131 H (70-99) mg/dl Calcium (8.6-10.3) mg/dl Phosphorus (2.5-4.9) mg/dl Magnesium (1.7-2.4) mg/dl Medications Administered Current Inpatient Medications Acetaminophen (Acetaminophen Susp 500 Mg/15.6 Ml Udp) 500 mg PO Q6H PRN PRN Reason: Fever Stop: 08/30/23 22:27 Last Admin: 08/11/23 02:37 Dose: 500 mg Atorvastatin Calcium (Atorvastatin 40 Mg Tab) 40 mg PO QAM [facility] Stop: 08/25/23 08:59 Last Admin: 08/18/23 08:51 Dose: 40 mg Ciprofloxacin (Ciprofloxacin 500 Mg Tab) 500 mg PO BID NILDA; Protocol Stop: 09/20/23 21:44 Last Admin: 08/18/23 08:51 Dose: 500 mg Dextrose (Dextrose 50% 50 Ml Syringe) 25 - 50 ml IV UD PRN; Protocol PRN Reason: Hypoglycemia Protocol Stop: 08/25/23 02:55 Last Admin: 07/28/23 21:52 Dose: 50 ml Digoxin (Digoxin 0.125 Mg Tab) 0.125 mg PO DAILY@1600 [facility] Stop: 09/02/23 15:59 Last Admin: 08/17/23 17:18 Dose: 0.125 mg Diltiazem HCl (Diltiazem Hcl 180 Mg Capcr) 180 mg PO QAM [facility] Stop: 09/16/23 08:59 Last Admin: 08/18/23 08:52 Dose: 180 mg Enoxaparin Sodium (Enoxaparin 80 Mg/0.8 Ml Syr) 80 mg SQ Q12H [facility] Stop: 09/04/23 07:59 Last Admin: 08/18/23 08:51 Dose: 80 mg Glucagon (Glucagon For Inj 1 Mg Vial) 1 mg SQ UD PRN; Protocol PRN Reason: Hypoglycemia Protocol Stop: 08/25/23 02:55 Glucose (Glucose 10 Tab/Tube) 4 - 8 tab PO UD PRN; Protocol PRN Reason: Hypoglycemia Treatment Stop: 08/25/23 02:55 Glucose (Glucose 40% Gel 15 Gm Tube) 15 - 30 gm PO UD PRN; Protocol PRN Reason: Hypoglycemia Protocol Stop: 08/25/23 02:55 Heparin Sodium (Beef Lung) (Heparin 10 Unit/Ml 5 Ml Flush) 5 ml FLUSH PRN PRN PRN Reason: Flush Stop: 09/11/23 08:42 Last Admin: 08/18/23 07:50 Dose: 15 ml Lorazepam 0.5 mg/ Syringe 0.5 mls @ 2 mls/min IV DAILY PRN PRN Reason: anxiety related to leech Rx Stop: 09/09/23 16:07 Insulin Aspart (Insulin Aspart Per Unit Charge) 0 units [facility]; Protocol Stop: 08/28/23 05:59 Last Admin: 08/18/23 08:47 Dose: Not Given Insulin Glargine (Lantus Per Unit Charge) 10 units [facility]; Protocol Stop: 09/04/23 11:29 Last Admin: 08/18/23 08:52 Dose: 10 units Lisinopril (Lisinopril 20 Mg Tab) [facility] Stop: 09/09/23 06:29 Last Admin: 08/18/23 08:52 Dose: 20 mg Magnesium Chloride (Magnesium Chloride W/Calcium 64mg Delayed Rel Tab) 64 mg PO BID [facility] Stop: 09/09/23 09:29 Last Admin: 08/18/23 08:52 Dose: 64 mg Melatonin (Melatonin 3 Mg Tab) 3 mg PO HS PRN PRN Reason: Sleep Stop: 09/16/23 20:32 Last Admin: 08/17/23 21:18 Dose: 3 mg Metoprolol Succinate (Metoprolol Succ 25mg Ext Rel Tab) 25 mg PO QAM NILDA Stop: 09/16/23 08:59 Last Admin: 08/18/23 08:52 Dose: 25 mg Miscellaneous (Carbohydrates For Hypoglycemia ) 15 - 30 gm PO UD PRN PRN Reason: Hypoglycemia Protocol Stop: 08/25/23 02:55 Last Admin: 08/15/23 07:30 Dose: 15 gm Pantoprazole Sodium (Pantoprazole 40 Mg Tab) 40 mg PO BID NILDA Stop: 09/04/23 08:59 Last Admin: 08/18/23 08:51 Dose: 40 mg Potassium Chloride (Potassium Chloride Crtab 20 Meq Tabcr) 20 meq PO BID NILDA Stop: 09/04/23 20:59 Last Admin: 08/18/23 08:54 Dose: 20 meq Potassium Phosphate (Pot Phosphate Monobasic W/ Sod Tab) 2 tab PO QID NILDA Stop: 08/30/23 12:59 Last Admin: 08/18/23 08:52 Dose: 2 tab Tamsulosin HCl (Tamsulosin Hcl 0.4 Mg Cap) 0.4 mg PO HS NILDA Stop: 08/25/23 20:59 Last Admin: 08/17/23 21:16 Dose: 0.4 mg Venlafaxine HCl (Venlafaxine Hcl Xr 150 Mg Capxr) 150 mg PO DAILY NILDA Stop: 08/25/23 08:59 Last Admin: 08/18/23 08:52 Dose: 150 mg Warfarin Sodium (Warfarin Sod 3 Mg Tab) 3 mg PO DAILY@1600 NILDA Stop: 09/15/23 17:34 Last Admin: 08/17/23 17:18 Dose: 3 mg (5) Anemia Anemia type: unspecified type Qualified Code(s): D64.9 - Anemia, unspecified (6) HTN (hypertension) Hypertension type: primary hypertension Qualified Code(s): I10 - Essential (primary) hypertension (12) Sepsis Acute renal failure type: unspecified Sepsis acute organ dysfunction status: with acute organ dysfunction Sepsis type: sepsis due to unspecified organism Severe sepsis acute organ dysfunction type: acute renal failure Severe sepsis shock status: without septic shock Qualified Code(s): A41.9 - Sepsis, unspecified organism; R65.20 - Severe sepsis without septic shock; N17.9 - Acute kidney failure, unspecified
[2023-08-18] MEDS: MAGNESIUM SULFATE / D5W 1 GM/100 ML BAG IV ONE (12:07)
[2023-08-19 08:18] LABS: Hemoglobin 8.5 g/dl (12.0-16.0); Mean Corpuscular Hemoglobin 29.9 pg (25.0-34.0); Mean Corpuscular Hgb Conc 32.7 g/dL (32.0-36.0); Mean Corpuscular Volume 91.5 fL (80.0-100.0); Mean Platelet Volume 9.6 fL (9.4-12.4); Platelet Count 163 K/uL (130-400); RDW Coefficient of Variation 15.5 % (11.5-14.5); RDW Standard Deviation 49.7 fL (36.4-46.3); Red Blood Count 2.84 M/uL (4.20-5.40); White Blood Count 6.46 K/ul (4.8-10.8)
[2023-08-19 08:45] LABS: Calcium 8.2 mg/dl (8.6-10.3); Creatinine Clr Calc Pharmacy 91.6 ml/min; Est GFR (African American) 107.2 ml/min; Est GFR (Non-African American) 92.5 ml/min; Magnesium 1.9 mg/dl (1.7-2.4); Phosphorus 3.9 mg/dl (2.5-4.9); Potassium 3.8 mmol/L (3.5-5.1)
[2023-08-19 08:49] LABS: Prothrombin Time 11.1 Seconds (9.0-12.0)
[2023-08-19] MEDS ORDERED: [UNRECOGNIZED DRUG - OTHER] TOP ONE (09:01)
--- NOTE | 2023-08-19 09:02 | Hospitalist Progress Note ---
Date of Service August 19, 2023 Assessment & Plan (1) Gangrene: (2) Atrial fibrillation with rapid ventricular response: (3) Bacteremia: (4) Acute encephalopathy: (5) Anemia: (6) HTN (hypertension): (7) Septic shock: (8) Acute kidney injury: (9) Complicated urinary tract infection: (10) Hydronephrosis due to obstruction of ureter: (11) Ureterolithiasis: (12) Sepsis: Plan Pt is a 73yoF with PMHx significant for HTN, HLD, T2DM, HCV status posttreatment, anxiety/mood disorder who presented with confusion and right flank pain. Has had a complicated course that included severe sepsis in the setting of obstructive uropathy and complicated UTI, requiring pressor support and subsequent development of acrocyanosis with gangrene in her extremities. Complicated UTI Urolithiasis and obstructive uropathy Urosepsis Bacteremia Severe sepsis POA: Secondary to above. Respiratory rate/pulse rate/WBC elevated at presentation. Lactate and procalcitonin elevated at presentation. UA suggestive of infection, 07/26 Urine Cx - Klebsiella Pneumoniae 07/25 Bl Cx x2 - grew Klebsiella Pneumoniae Repeat Blood Cx x2 with NGTD Septic shock: Patient's blood pressure did not improve despite aggressive fluid resuscitation, was transferred to ICU for pressor support on admission. Likely metabolic encephalopathy: Secondary to above Gram-negative bacteremia: 07/25 blood cultures x2 positive for Klebsiella pneumoniae. Repeat blood culture 07/27 no growth to date. Urology evaluated, status post cystoscopy and right retrograde pyelogram/right ureteral stent placement 07/26/2023 Patient was started on cefepime 07/26, to ceftriaxone 07/27, d/w ID 07/28 - agreed w/ Rx. Continue. CTAP repeated 07/29 for concern of perinephric abscess, which was ruled out. Pt was treated with Cefepime or Ceftriaxone for a total of 14 days. Transitioned to ciprofloxacin from 08/09 (see below) - to finish course 08/20/23 Acrocyanosis Gangrene Acute CVA Patient had developed acrocyanosis and nasal tip cyanosis overnight on 07/26- 07/27. Patient has been off of pressor support [vasopressin and Levophed] from 07/26. 07/27 - Duplex arterial scan of UE and LE WNL. Venous Doppler BLE negative for DVT. Patient was started on heparin drip and Solu-Medrol for concern of cryoglobulinemia. 07/28 - acrocyanosis progressed. Discussed with various subspecialties including rheumatology/hematology/draw operator. Peripheral blood smear with no schistocytes. TTP HUS ruled out. DIC from sepsis versus ischemic necrosis from recent pressor use was contemplated on differential diagnosis for acrocyanosis. Patient was transferred to ICU and was intubated due to tachypnea/shallow breathing. She also developed a fever, and was started on vancomycin/acyclovir/ampicillin on top of Rocephin for possible encephalitis versus meningitis. Lumbar puncture was deferred due to dropping platelets. MRI brain was obtained which revealed punctate right occipital lobe lacunar infarct. Pt seen by neurology. ANAHI screen was negative. PF4 antibody negative --HIT ruled out. Again no schistocytes noted on peripheral smearTTP HUS ruled out Haptoglobin within normal limits Patient was extubated on August Platelets improved as well. Continue DIALYSIS REGISTERED NURSE, PT OT. Orthopedic consulted for possible debridement/surgical treatment. Seen by orthopedic on August 02, 2023 and August 04, 2023; do not recommend amputation at this point in time. Recommended allowing for gangrene to fully demarcate to determine what requires amputation and what can be salvaged. Orthopedics re-consulted on 08/08- appreciate recs -recommended waiting for further delineation which can take a few weeks, can be done electively. However pt needs monitoring for signs of infection -podiatry consult for lower extremity evaluation 08/09- Pt underwent leech therapy with orthopedics, per wound care recommendations (see ortho procedure note from same date). Received 0.5mg Ativan to help with anxiety during the process. Per ortho, will need abx coverage in the form of cipro 500mg BID, ordered. Appreciate recs. 08/10- Repeat leech therapy done by ortho. Continue with ordered cipro. Standing order for prn Ativan for leech therapy related anxiety placed. Appreciate ortho and wound recs. Consider ENT consult for similar nasal changes. 08/11- Continue leech therapy, cipro. Appreciate ortho recs, adding pillow, OT. Appreciate podiatry recs, similar to ortho recs. Daughter updated, notes that her nose lesion started the day after admission. 08/12- stable 08/13- leech therapy today, per ortho note, poss. last day of leech therapy. Appreciate recs. 08/15 - Discussed with Dr. Lay (orthopedic surgery) - Pt should continue on ciprofloxacin for 1 week since discontinuation of leech therapy. The last day leech therapy was August 13. Therefore the last day of ciprofloxacin should be August 20. She may continue occupational therapy for active and passive range of motion. There are no restrictions with therapy. She should elevate bilateral upper extremities. Recommendation is to use Danilo pillow, which has been previously ordered, as much as possible to elevate the extremity. Follow up w/ Dr. Lay ([facility]) in 10-14 days from discharge. New onset anemia Likely UGIB Prior hemoglobin level 13.9, admitting hemoglobin 11.1 Hemoccult positive melanotic stool noted at the ER GI evaluated 07/26, PPI drip changed to twice daily. Monitor H&H and transfuse as needed. Will likely need follow-up with GI as an outpatient. Hemoglobin down to 6.3 on 08/06; transfused 2 units- currently stable and increased to ~ 9 Monitor daily CBC Atrial fibrillation with RVR Demand ischemia Patient developed atrial fibrillation with RVR on July 30, 2023 Echocardiogram from 07/26 shows EF of 50 to 55% with mild concentric LVH. 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 Also on digoxin. Transitioned to Cardizem 180 mg daily as planning for discharge next week and reducing metoprolol to 25 mg once daily (as per cardiology recommendations for DC) Continue on Lovenox for anticoagulation. Appreciate Cardiology recs Started warfarin. plan to stop lovenox when INR is 2.0 Acute on chronic diastolic CHF: Chest x-ray from 08/01 showed pulmonary edema Echocardiogram as above Diuresis with IV Lasix 40 mg twice daily - stopped Continue IV diuretics as needed to get negative balance. Right occipital lobe lacunar infarct: Head and neck imaging with 07/29 MRI w/ punctate right occipital lobe lacunar infarct. Neurology consulted Continue statin, cont. anticoag. w/ heparin /warfarin Follow up with neurology as outpt. Acute kidney injury-resolved: Admitting creatinine of 1.6, past creatinine 0.89. Status post IV fluid, s/p pressor support. Likely prerenal secondary to septic shock. Improvement with IV hydration Acute metabolic encephalopathy- resolved Acute fever-resolved Thrombocytopenia- resolved Other chronic medical conditions: Continue with/resume home meds as and when able. Hypertension, continue on lisinopril. hyperlipidemia, on statin Rx. Continue DM2 on oral medications, reasonable control as of recent hemoglobin A1c of 7.1 last March 2023 HCV status post Rx Recent COVID-19 illness from 2 weeks ago, monitor respiratory symptoms. Diet: HH/DMII, minced and moist CODE STATUS: Full code DVT prophylaxis: Lovenox Dispo: Pt accepted at [facility]- Patient has poor peripheral vascular access with only 1 peripheral IV access. PICC line consent was obtained from the daughter; unable to place as per vascular team due to poor access. Patient currently has right IJ central line. Previous provider discussed with nursing to attempt peripheral IV line placement. Removal of central line after placement of other IV access. Contact: chintan Estrella ([phone]) Admission and Anticipated Discharge Date Admission Date: July 26, 2023 Subjective Pt seen in follow up - had complicated hosp. stay - urosepsis, Afib w/ RVR, DIC, CVA, acrocyanosis/ gangrene Pt laying in bed in NAD Answers simple questions appropriately. Denies fever chills chest pain shortness of breath abdominal pain nausea vomiting. Pt's sister at the bedside - inquiring about discharge. CM involved. Review of Systems Review of Systems: All systems reviewed & are unremarkable except as noted in Subjective Physical Exam Physical Exam: General: WD/WN F in NAD HEENT: NC/AT Chest: Nontender to palpation CV: RRR Resp: no increased effort of breathing, CTAB Abdomen: Soft Neuro: Awake, able to answer some simple questions appropriately, speech fluent, no facial asymmetry, moves extremities. left arm seems weaker Extremities: blackened hands and feet, hands elevated on pillows Skin: blackened hands and feet, noted bullae Results & Data Results & Data Vital Signs (Past 12 Hours) Vital Signs Temp Pulse Pulse Resp BP Pulse Ox O2 Del Method 08/19/23 08:32 36.6 C 76 18 143/71 H 96 Room Air 08/19/23 03:02 36.8 C 78 17 145/75 H 95 Room Air 08/18/23 23:14 37.2 C 85 20 154/81 H 94 Room Air 08/18/23 22:00 87 Laboratory Results 08/19/23 08/19/23 08/18/23 Range/Units 08:02 07:58 21:17 WBC 6.46 (4.8-10.8) K/ul RBC 2.84 L (4.20-5.40) M/uL Hgb 8.5 L (12.0-16.0) g/dl Hct 26.0 L (37.0-47.0) % MCV 91.5 (80.0-100.0) fL MCH 29.9 (25.0-34.0) pg MCHC 32.7 (32.0-36.0) g/dL RDW Std Deviation 49.7 H (36.4-46.3) fL RDW Coeff of Mary 15.5 H (11.5-14.5) % Plt Count 163 (130-400) K/uL MPV 9.6 (9.4-12.4) fL PT 11.1 (9.0-12.0) Seconds INR 1.0 (0.9-1.1) Sodium 137 (136-145) mmol/L Potassium 3.8 (3.5-5.1) mmol/L Chloride 105 (98-107) mmol/L Carbon Dioxide 27 (21-32) mmol/L Anion Gap 5 (3-11) BUN 14 (6-23) mg/dl Creatinine 0.56 L (0.6-1.2) mg/dl Est Cr Clr Drug Dosing 91.6 ml/min Est GFR ( Amer) 107.2 ml/min Est GFR (Non-Af Amer) 92.5 ml/min BUN/Creatinine Ratio 25.0 H (10-20) Glucose 127 H (70-99(Fasting)) mg/dl POC Glucose 143 H 156 H (70-99) mg/dl Calcium 8.2 L (8.6-10.3) mg/dl Phosphorus 3.9 (2.5-4.9) mg/dl Magnesium 1.9 (1.7-2.4) mg/dl 08/18/23 08/18/23 Range/Units 15:26 11:50 WBC (4.8-10.8) K/ul RBC (4.20-5.40) M/uL Hgb (12.0-16.0) g/dl Hct (37.0-47.0) % MCV (80.0-100.0) fL MCH (25.0-34.0) pg MCHC (32.0-36.0) g/dL RDW Std Deviation (36.4-46.3) fL RDW Coeff of Mary (11.5-14.5) % Plt Count (130-400) K/uL MPV (9.4-12.4) fL PT (9.0-12.0) Seconds INR (0.9-1.1) Sodium (136-145) mmol/L Potassium (3.5-5.1) mmol/L Chloride (98-107) mmol/L Carbon Dioxide (21-32) mmol/L Anion Gap (3-11) BUN (6-23) mg/dl Creatinine (0.6-1.2) mg/dl Est Cr Clr Drug Dosing ml/min Est GFR ( Amer) ml/min Est GFR (Non-Af Amer) ml/min BUN/Creatinine Ratio (10-20) Glucose (70-99(Fasting)) mg/dl POC Glucose 176 H 108 H (70-99) mg/dl Calcium (8.6-10.3) mg/dl Phosphorus (2.5-4.9) mg/dl Magnesium (1.7-2.4) mg/dl Medications Administered Current Inpatient Medications Acetaminophen (Acetaminophen Susp 500 Mg/15.6 Ml Udp) 500 mg PO Q6H PRN PRN Reason: Fever Stop: 08/30/23 22:27 Last Admin: 08/11/23 02:37 Dose: 500 mg Atorvastatin Calcium (Atorvastatin 40 Mg Tab) 40 mg PO QAM [facility] Stop: 08/25/23 08:59 Last Admin: 08/19/23 08:41 Dose: 40 mg Ciprofloxacin (Ciprofloxacin 500 Mg Tab) 500 mg PO BID NILDA; Protocol Stop: 08/20/23 23:59 Last Admin: 08/19/23 08:40 Dose: 500 mg Dextrose (Dextrose 50% 50 Ml Syringe) 25 - 50 ml IV UD PRN; Protocol PRN Reason: Hypoglycemia Protocol Stop: 08/25/23 02:55 Last Admin: 07/28/23 21:52 Dose: 50 ml Digoxin (Digoxin 0.125 Mg Tab) 0.125 mg PO DAILY@1600 [facility] Stop: 09/02/23 15:59 Last Admin: 08/18/23 16:35 Dose: 0.125 mg Diltiazem HCl (Diltiazem Hcl 180 Mg Capcr) 180 mg PO [facility] Stop: 09/16/23 08:59 Last Admin: 08/19/23 08:40 Dose: 180 mg Enoxaparin Sodium (Enoxaparin 80 Mg/0.8 Ml Syr) 80 mg SQ Q12H [facility] Stop: 09/04/23 07:59 Last Admin: 08/19/23 08:39 Dose: 80 mg Glucagon (Glucagon For Inj 1 Mg Vial) 1 mg SQ UD PRN; Protocol PRN Reason: Hypoglycemia Protocol Stop: 08/25/23 02:55 Glucose (Glucose 10 Tab/Tube) 4 - 8 tab PO UD PRN; Protocol PRN Reason: Hypoglycemia Treatment Stop: 08/25/23 02:55 Glucose (Glucose 40% Gel 15 Gm Tube) 15 - 30 gm PO UD PRN; Protocol PRN Reason: Hypoglycemia Protocol Stop: 08/25/23 02:55 Heparin Sodium (Beef Lung) (Heparin 10 Unit/Ml 5 Ml Flush) 5 ml FLUSH PRN PRN PRN Reason: Flush Stop: 09/11/23 08:42 Last Admin: 08/18/23 07:50 Dose: 15 ml Lorazepam 0.5 mg/ Syringe 0.5 mls @ 2 mls/min IV DAILY PRN PRN Reason: anxiety related to leech Rx Stop: 09/09/23 16:07 Insulin Aspart (Insulin Aspart Per Unit Charge) 0 units SC [facility]; Protocol Stop: 08/28/23 05:59 Last Admin: 08/19/23 08:43 Dose: 5 units Insulin Glargine (Lantus Per Unit Charge) 10 units SC [facility]; Protocol Stop: 09/04/23 11:29 Last Admin: 08/18/23 08:52 Dose: 10 units Lisinopril (Lisinopril 20 Mg Tab) 20 mg PO [facility] Stop: 09/09/23 06:29 Last Admin: 08/19/23 08:39 Dose: 20 mg Magnesium Chloride (Magnesium Chloride W/Calcium 64mg Delayed Rel Tab) 64 mg PO BID [facility] Stop: 09/09/23 09:29 Last Admin: 08/19/23 08:39 Dose: 64 mg Melatonin (Melatonin 3 Mg Tab) 3 mg PO HS PRN PRN Reason: Sleep Stop: 09/16/23 20:32 Last Admin: 08/17/23 21:18 Dose: 3 mg Metoprolol Succinate (Metoprolol Succ 25mg Ext Rel Tab) 25 mg PO QAM [facility] Stop: 09/16/23 08:59 Last Admin: 08/19/23 08:40 Dose: 25 mg Miscellaneous (Carbohydrates For Hypoglycemia ) 15 - 30 gm PO UD PRN PRN Reason: Hypoglycemia Protocol Stop: 08/25/23 02:55 Last Admin: 08/15/23 07:30 Dose: 15 gm Pantoprazole Sodium (Pantoprazole 40 Mg Tab) 40 mg PO BID [facility]ILDA Stop: 09/04/23 08:59 Last Admin: 08/19/23 08:40 Dose: 40 mg Potassium Chloride (Potassium Chloride Crtab 20 Meq Tabcr) 20 meq PO BID [facility] Stop: 09/04/23 20:59 Last Admin: 08/19/23 08:39 Dose: 20 meq Potassium Phosphate (Pot Phosphate Monobasic W/ Sod Tab) 2 tab PO QID [facility] Stop: 08/30/23 12:59 Last Admin: 08/19/23 08:39 Dose: 2 tab Tamsulosin HCl (Tamsulosin Hcl 0.4 Mg Cap) 0.4 mg PO HS [facility] Stop: 08/25/23 20:59 Last Admin: 08/18/23 21:20 Dose: 0.4 mg Venlafaxine HCl (Venlafaxine Hcl Xr 150 Mg Capxr) 150 mg PO DAILY [facility] Stop: 08/25/23 08:59 Last Admin: 08/19/23 08:40 Dose: 150 mg Warfarin Sodium (Warfarin Sod 3 Mg Tab) 3 mg PO DAILY@1600 [facility] Stop: 09/15/23 17:34 Last Admin: 08/18/23 16:34 Dose: 3 mg (5) Anemia Anemia type: unspecified type Qualified Code(s): D64.9 - Anemia, unspecified (6) HTN (hypertension) Hypertension type: primary hypertension Qualified Code(s): I10 - Essential (primary) hypertension (12) Sepsis Acute renal failure type: unspecified Sepsis acute organ dysfunction status: with acute organ dysfunction Sepsis type: sepsis due to unspecified organism Severe sepsis acute organ dysfunction type: acute renal failure Severe sepsis shock status: without septic shock Qualified Code(s): A41.9 - Sepsis, unspecified organism; R65.20 - Severe sepsis without septic shock; N17.9 - Acute kidney failure, unspecified
[2023-08-20 06:41] LABS: Hematocrit (blood only) 25.5 % (37.0-47.0); Hemoglobin 8.4 g/dl (12.0-16.0); Mean Corpuscular Hemoglobin 29.9 pg (25.0-34.0); Mean Corpuscular Hgb Conc 32.9 g/dL (32.0-36.0); Mean Corpuscular Volume 90.7 fL (80.0-100.0); Mean Platelet Volume 9.8 fL (9.4-12.4); Platelet Count 203 K/uL (130-400); RDW Coefficient of Variation 15.8 % (11.5-14.5); RDW Standard Deviation 50.7 fL (36.4-46.3); Red Blood Count 2.81 M/uL (4.20-5.40); White Blood Count 6.82 K/ul (4.8-10.8)
[2023-08-20 06:53] LABS: BUN Creatinine Ratio 28.8 (10-20); Calcium 8.4 mg/dl (8.6-10.3); Est GFR (African American) 105.4 ml/min; Est GFR (Non-African American) 90.9 ml/min; Magnesium 1.8 mg/dl (1.7-2.4); Potassium 3.7 mmol/L (3.5-5.1)
[2023-08-20 07:20] LABS: Prothrombin Time 11.1 Seconds (9.0-12.0)
--- NOTE | 2023-08-20 18:20 | Hospitalist Progress Note ---
Date of Service August 20, 2023 Assessment & Plan (1) Gangrene: (2) Atrial fibrillation with rapid ventricular response: (3) Bacteremia: (4) Acute encephalopathy: (5) Anemia: (6) HTN (hypertension): (7) Septic shock: (8) Acute kidney injury: (9) Complicated urinary tract infection: (10) Hydronephrosis due to obstruction of ureter: (11) Ureterolithiasis: (12) Sepsis: Plan Pt is a 73yoF with PMHx significant for HTN, HLD, T2DM, HCV status posttreatment, anxiety/mood disorder who presented with confusion and right flank pain. Has had a complicated course that included severe sepsis in the setting of obstructive uropathy and complicated UTI, requiring pressor support and subsequent development of acrocyanosis with gangrene in her extremities. Complicated UTI Urolithiasis and obstructive uropathy Urosepsis Bacteremia Severe sepsis POA: Secondary to above. Respiratory rate/pulse rate/WBC elevated at presentation. Lactate and procalcitonin elevated at presentation. UA suggestive of infection, 07/26 Urine Cx - Klebsiella Pneumoniae 07/25 Bl Cx x2 - grew Klebsiella Pneumoniae Repeat Blood Cx x2 with NGTD Septic shock: Patient's blood pressure did not improve despite aggressive fluid resuscitation, was transferred to ICU for pressor support on admission. Likely metabolic encephalopathy: Secondary to above Gram-negative bacteremia: 07/25 blood cultures x2 positive for Klebsiella pneumoniae. Repeat blood culture 07/27 no growth to date. Urology evaluated, status post cystoscopy and right retrograde pyelogram/right ureteral stent placement 07/26/2023 Patient was started on cefepime 07/26, to ceftriaxone 07/27, d/w ID 07/28 - agreed w/ Rx. Continue. CTAP repeated 07/29 for concern of perinephric abscess, which was ruled out. Pt was treated with Cefepime or Ceftriaxone for a total of 14 days. Transitioned to ciprofloxacin from 08/09 (see below) - to finish course 08/20/23 Acrocyanosis Gangrene Acute CVA Patient had developed acrocyanosis and nasal tip cyanosis overnight on 07/26- 07/27. Patient has been off of pressor support [vasopressin and Levophed] from 07/26. 07/27 - Duplex arterial scan of UE and LE WNL. Venous Doppler BLE negative for DVT. Patient was started on heparin drip and Solu-Medrol for concern of cryoglobulinemia. 07/28 - acrocyanosis progressed. Discussed with various subspecialties including rheumatology/hematology/technical consultant. Peripheral blood smear with no schistocytes. TTP HUS ruled out. DIC from sepsis versus ischemic necrosis from recent pressor use was contemplated on differential diagnosis for acrocyanosis. Patient was transferred to ICU and was intubated due to tachypnea/shallow breathing. She also developed a fever, and was started on vancomycin/acyclovir/ampicillin on top of Rocephin for possible encephalitis versus meningitis. Lumbar puncture was deferred due to dropping platelets. MRI brain was obtained which revealed punctate right occipital lobe lacunar infarct. Pt seen by neurology. ANAHI screen was negative. PF4 antibody negative --HIT ruled out. Again no schistocytes noted on peripheral smearTTP HUS ruled out Haptoglobin within normal limits Patient was extubated on August Platelets improved as well. Continue [employer]IC, PT OT. Orthopedic consulted for possible debridement/surgical treatment. Seen by orthopedic on August 02, 2023 and August 04, 2023; do not recommend amputation at this point in time. Recommended allowing for gangrene to fully demarcate to determine what requires amputation and what can be salvaged. Orthopedics re-consulted on 08/08- appreciate recs -recommended waiting for further delineation which can take a few weeks, can be done electively. However pt needs monitoring for signs of infection -podiatry consult for lower extremity evaluation 08/09- Pt underwent leech therapy with orthopedics, per wound care recommendations (see ortho procedure note from same date). Received 0.5mg Ativan to help with anxiety during the process. Per ortho, will need abx coverage in the form of cipro 500mg BID, ordered. Appreciate recs. 08/10- Repeat leech therapy done by ortho. Continue with ordered cipro. Standing order for prn Ativan for leech therapy related anxiety placed. Appreciate ortho and wound recs. Consider ENT consult for similar nasal changes. 08/11- Continue leech therapy, cipro. Appreciate ortho recs, adding pillow, OT. Appreciate podiatry recs, similar to ortho recs. Daughter updated, notes that her nose lesion started the day after admission. 08/12- stable 08/13- leech therapy today, per ortho note, poss. last day of leech therapy. Appreciate recs. 08/15 - Discussed with Dr. Lay (orthopedic surgery) - Pt should continue on ciprofloxacin for 1 week since discontinuation of leech therapy. The last day leech therapy was August 13. Therefore the last day of ciprofloxacin should be August 20. She may continue occupational therapy for active and passive range of motion. There are no restrictions with therapy. She should elevate bilateral upper extremities. Recommendation is to use Danilo pillow, which has been previously ordered, as much as possible to elevate the extremity. Follow up w/ Dr. Lay ([facility]) in 10-14 days from discharge. New onset anemia Likely UGIB Prior hemoglobin level 13.9, admitting hemoglobin 11.1 Hemoccult positive melanotic stool noted at the ER GI evaluated 07/26, PPI drip changed to twice daily. Monitor H&H and transfuse as needed. Will likely need follow-up with GI as an outpatient. Hemoglobin down to 6.3 on 08/06; transfused 2 units- currently stable at ~ 8.5 Monitor daily CBC Atrial fibrillation with RVR Demand ischemia Patient developed atrial fibrillation with RVR on July 30, 2023 Echocardiogram from 07/26 shows EF of 50 to 55% with mild concentric LVH. 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 Also on digoxin. Transitioned to Cardizem 180 mg daily as planning for discharge this week and reducing metoprolol to 25 mg once daily (as per cardiology recommendations for DC) Continue on Lovenox for anticoagulation. Appreciate Cardiology recs Started warfarin. plan to stop lovenox when INR is 2.0 Acute on chronic diastolic CHF: Chest x-ray from 08/01 showed pulmonary edema Echocardiogram as above Diuresis with IV Lasix 40 mg twice daily - stopped Continue IV diuretics as needed to get negative balance. Right occipital lobe lacunar infarct: Head and neck imaging with 07/29 MRI w/ punctate right occipital lobe lacunar infarct. Neurology consulted Continue statin, cont. anticoag. w/ heparin /warfarin Follow up with neurology as outpt. Acute kidney injury-resolved: Admitting creatinine of 1.6, past creatinine 0.89. Status post IV fluid, s/p pressor support. Likely prerenal secondary to septic shock. Improvement with IV hydration Acute metabolic encephalopathy- resolved Acute fever-resolved Thrombocytopenia- resolved Other chronic medical conditions: Continue with/resume home meds as and when able. Hypertension, continue on lisinopril. hyperlipidemia, on statin Rx. Continue DM2 on oral medications, reasonable control as of recent hemoglobin A1c of 7.1 last March 2023 HCV status post Rx Recent COVID-19 illness from 2 weeks ago, monitor respiratory symptoms. Diet: HH/DMII, minced and moist CODE STATUS: Full code DVT prophylaxis: Lovenox Dispo: Pt accepted at [facility]- Patient has poor peripheral vascular access with only 1 peripheral IV access. PICC line consent was obtained from the daughter; unable to place as per vascular team due to poor access. Patient currently has right IJ central line. Previous provider discussed with nursing to attempt peripheral IV line placement. Removal of central line after placement of other IV access. Contact: chintan Estrella ([phone]) Admission and Anticipated Discharge Date Admission Date: July 26, 2023 Subjective Pt seen in follow up - had complicated hosp. stay - urosepsis (Klebsiella UTI and Klebsiella bacteremia), Afib w/ RVR, DIC, CVA, acrocyanosis/ gangrene Pt laying in bed in NAD Answers simple questions appropriately. Denies fever chills chest pain shortness of breath abdominal pain nausea vomiting. Currently awaiting placement, CM involved. Tonight she will finish antibiotic course with ciprofloxacin. Will need to continue daily INR - as she is bridged to warfarin. Review of Systems Review of Systems: All systems reviewed & are unremarkable except as noted in Subjective Physical Exam Physical Exam: General: WD/WN F in NAD HEENT: NC/AT Chest: Nontender to palpation CV: RRR Resp: no increased effort of breathing, CTAB Abdomen: Soft Neuro: Awake, able to answer some simple questions appropriately, speech fluent, no facial asymmetry, moves extremities. Extremities: blackened hands and feet, hands elevated on pillows Skin: blackened hands and feet, noted bullae Results & Data Results & Data Vital Signs (Past 12 Hours) Vital Signs Temp Pulse Pulse Pulse Resp BP Pulse Ox 08/20/23 17:18 82 08/20/23 14:55 36.6 C 70 18 128/76 98 08/20/23 11:47 36.6 C 80 18 150/66 H 98 08/20/23 08:10 79 08/20/23 07:48 36.6 C 83 18 138/68 96 O2 Del Method 08/20/23 17:18 08/20/23 14:55 Room Air 08/20/23 11:47 Room Air 08/20/23 08:10 08/20/23 07:48 Room Air Laboratory Results 08/20/23 08/20/23 08/20/23 Range/Units 16:24 11:12 07:27 WBC (4.8-10.8) K/ul RBC (4.20-5.40) M/uL Hgb (12.0-16.0) g/dl Hct (37.0-47.0) % MCV (80.0-100.0) fL MCH (25.0-34.0) pg MCHC (32.0-36.0) g/dL RDW Std Deviation (36.4-46.3) fL RDW Coeff of Mary (11.5-14.5) % Plt Count (130-400) K/uL MPV (9.4-12.4) fL PT (9.0-12.0) Seconds INR (0.9-1.1) Sodium (136-145) mmol/L Potassium (3.5-5.1) mmol/L Chloride (98-107) mmol/L Carbon Dioxide (21-32) mmol/L Anion Gap (3-11) BUN (6-23) mg/dl Creatinine (0.6-1.2) mg/dl Est Cr Clr Drug Dosing ml/min Est GFR ( Amer) ml/min Est GFR (Non-Af Amer) ml/min BUN/Creatinine Ratio (10-20) Glucose (70-99(Fasting)) mg/dl POC Glucose 169 H 152 H 147 H (70-99) mg/dl Calcium (8.6-10.3) mg/dl Phosphorus (2.5-4.9) mg/dl Magnesium (1.7-2.4) mg/dl 08/20/23 08/19/23 Range/Units 06:11 20:40 WBC 6.82 (4.8-10.8) K/ul RBC 2.81 L (4.20-5.40) M/uL Hgb 8.4 L (12.0-16.0) g/dl Hct 25.5 L (37.0-47.0) % MCV 90.7 (80.0-100.0) fL MCH 29.9 (25.0-34.0) pg MCHC 32.9 (32.0-36.0) g/dL RDW Std Deviation 50.7 H (36.4-46.3) fL RDW Coeff of Mary 15.8 H (11.5-14.5) % Plt Count 203 (130-400) K/uL MPV 9.8 (9.4-12.4) fL PT 11.1 (9.0-12.0) Seconds INR 1.0 (0.9-1.1) Sodium 137 (136-145) mmol/L Potassium 3.7 (3.5-5.1) mmol/L Chloride 105 (98-107) mmol/L Carbon Dioxide 27 (21-32) mmol/L Anion Gap 5 (3-11) BUN 17 (6-23) mg/dl Creatinine 0.59 L (0.6-1.2) mg/dl Est Cr Clr Drug Dosing 87.0 ml/min Est GFR ( Amer) 105.4 ml/min Est GFR (Non-Af Amer) 90.9 ml/min BUN/Creatinine Ratio 28.8 H (10-20) Glucose 135 H (70-99(Fasting)) mg/dl POC Glucose 224 H (70-99) mg/dl Calcium 8.4 L (8.6-10.3) mg/dl Phosphorus 4.0 (2.5-4.9) mg/dl Magnesium 1.8 (1.7-2.4) mg/dl Medications Administered Current Inpatient Medications Acetaminophen (Acetaminophen Susp 500 Mg/15.6 Ml Udp) 500 mg PO Q6H PRN PRN Reason: Fever Stop: 08/30/23 22:27 Last Admin: 08/11/23 02:37 Dose: 500 mg Atorvastatin Calcium (Atorvastatin 40 Mg Tab) 40 mg PO QAM [facility] Stop: 08/25/23 08:59 Last Admin: 08/20/23 08:18 Dose: 40 mg Ciprofloxacin (Ciprofloxacin 500 Mg Tab) 500 mg PO BID [facility]; Protocol Stop: 08/20/23 23:59 Last Admin: 08/20/23 08:18 Dose: 500 mg Dextrose (Dextrose 50% 50 Ml Syringe) 25 - 50 ml IV UD PRN; Protocol PRN Reason: Hypoglycemia Protocol Stop: 08/25/23 02:55 Last Admin: 07/28/23 21:52 Dose: 50 ml Digoxin (Digoxin 0.125 Mg Tab) 0.125 mg PO DAILY@1600 [facility] Stop: 09/02/23 15:59 Last Admin: 08/20/23 17:18 Dose: 0.125 mg Diltiazem HCl (Diltiazem Hcl 180 Mg Capcr) [facility] Stop: 09/16/23 08:59 Last Admin: 08/20/23 08:19 Dose: 180 mg Enoxaparin Sodium (Enoxaparin 80 Mg/0.8 Ml Syr) 80 mg SQ Q12H [facility] Stop: 09/04/23 07:59 Last Admin: 08/20/23 08:17 Dose: 80 mg Glucagon (Glucagon For Inj 1 Mg Vial) 1 mg SQ UD PRN; Protocol PRN Reason: Hypoglycemia Protocol Stop: 08/25/23 02:55 Glucose (Glucose 10 Tab/Tube) 4 - 8 tab PO UD PRN; Protocol PRN Reason: Hypoglycemia Treatment Stop: 08/25/23 02:55 Glucose (Glucose 40% Gel 15 Gm Tube) 15 - 30 gm PO UD PRN; Protocol PRN Reason: Hypoglycemia Protocol Stop: 08/25/23 02:55 Heparin Sodium (Beef Lung) (Heparin 10 Unit/Ml 5 Ml Flush) 5 ml FLUSH PRN PRN PRN Reason: Flush Stop: 09/11/23 08:42 Last Admin: 08/18/23 07:50 Dose: 15 ml Lorazepam 0.5 mg/ Syringe 0.5 mls @ 2 mls/min IV DAILY PRN PRN Reason: anxiety related to leech Rx Stop: 09/09/23 16:07 Insulin Aspart (Insulin Aspart Per Unit Charge) 0 units [facility]; Protocol Stop: 08/28/23 05:59 Last Admin: 08/20/23 17:20 Dose: 7 units Insulin Glargine (Lantus Per Unit Charge) 10 units SC [facility]; Protocol Stop: 09/04/23 11:29 Last Admin: 08/20/23 08:18 Dose: 10 units Lisinopril (Lisinopril 20 Mg Tab) 20 mg PO [facility] Stop: 09/09/23 06:29 Last Admin: 08/20/23 08:18 Dose: 20 mg Magnesium Chloride (Magnesium Chloride W/Calcium 64mg Delayed Rel Tab) 64 mg PO BID [facility] Stop: 09/09/23 09:29 Last Admin: 08/20/23 08:19 Dose: 64 mg Melatonin (Melatonin 3 Mg Tab) 3 mg PO HS PRN PRN Reason: Sleep Stop: 09/16/23 20:32 Last Admin: 08/17/23 21:18 Dose: 3 mg Metoprolol Succinate (Metoprolol Succ 25mg Ext Rel Tab) 25 mg PO QAM [facility] Stop: 09/16/23 08:59 Last Admin: 08/20/23 08:19 Dose: 25 mg Miscellaneous (Carbohydrates For Hypoglycemia ) 15 - 30 gm PO UD PRN PRN Reason: Hypoglycemia Protocol Stop: 08/25/23 02:55 Last Admin: 08/15/23 07:30 Dose: 15 gm Pantoprazole Sodium (Pantoprazole 40 Mg Tab) 40 mg PO BID [facility] Stop: 09/04/23 08:59 Last Admin: 08/20/23 08:19 Dose: 40 mg Potassium Chloride (Potassium Chloride Crtab 20 Meq Tabcr) 20 meq PO BID [facility] Stop: 09/04/23 20:59 Last Admin: 08/20/23 08:18 Dose: 20 meq Potassium Phosphate (Pot Phosphate Monobasic W/ Sod Tab) 2 tab PO QID [facility] Stop: 08/30/23 12:59 Last Admin: 08/20/23 17:19 Dose: 2 tab Tamsulosin HCl (Tamsulosin Hcl 0.4 Mg Cap) 0.4 mg PO HS [facility] Stop: 08/25/23 20:59 Last Admin: 08/19/23 20:33 Dose: 0.4 mg Venlafaxine HCl (Venlafaxine Hcl Xr 150 Mg Capxr) 150 mg PO DAILY [facility] Stop: 08/25/23 08:59 Last Admin: 08/20/23 08:20 Dose: 150 mg Warfarin Sodium (Warfarin Sod 3 Mg Tab) 3 mg PO DAILY@1600 [facility] Stop: 09/15/23 17:34 Last Admin: 08/20/23 17:19 Dose: 3 mg (5) Anemia Anemia type: unspecified type Qualified Code(s): D64.9 - Anemia, unspecified (6) HTN (hypertension) Hypertension type: primary hypertension Qualified Code(s): I10 - Essential (primary) hypertension (12) Sepsis Acute renal failure type: unspecified Sepsis acute organ dysfunction status: with acute organ dysfunction Sepsis type: sepsis due to unspecified organism Severe sepsis acute organ dysfunction type: acute renal failure Severe sepsis shock status: without septic shock Qualified Code(s): A41.9 - Sepsis, unspecified organism; R65.20 - Severe sepsis without septic shock; N17.9 - Acute kidney failure, unspecified
[2023-08-21 06:21] LABS: Hematocrit (blood only) 26.3 % (37.0-47.0); Hemoglobin 8.4 g/dl (12.0-16.0); Mean Corpuscular Hemoglobin 29.4 pg (25.0-34.0); Mean Corpuscular Hgb Conc 31.9 g/dL (32.0-36.0); Mean Platelet Volume 9.5 fL (9.4-12.4); Platelet Count 241 K/uL (130-400); RDW Coefficient of Variation 15.9 % (11.5-14.5); RDW Standard Deviation 50.9 fL (36.4-46.3); Red Blood Count 2.86 M/uL (4.20-5.40); White Blood Count 6.95 K/ul (4.8-10.8)
[2023-08-21 06:35] LABS: BUN Creatinine Ratio 32.8 (10-20); Calcium 8.4 mg/dl (8.6-10.3); Creatinine Clr Calc Pharmacy 88.5 ml/min; Est GFR (Non-African American) 91.4 ml/min; Magnesium 1.8 mg/dl (1.7-2.4); Phosphorus 3.8 mg/dl (2.5-4.9); Potassium 3.8 mmol/L (3.5-5.1)
[2023-08-21 06:39] LABS: Prothrombin Time 11.1 Seconds (9.0-12.0)
--- NOTE | 2023-08-21 13:29 | Discharge Summary ---
Discharge Summary Date of Service August 21, 2023 Notes For Next Care Provider Please ensure follow up with Orthopedic Surgery - may continue occupational therapy for active and passive range of motion. There are no restrictions with therapy. -She should elevate bilateral upper extremities. Recommendation is to use Danilo pillow, which has been previously ordered, as much as possible to elevate the extremity. Follow up w/ Dr. Lay ([facility]) in 10-14 days from discharge. Please ensure follow up with Podiatry for lower extremity demarcation Please ensure follow up with Neurology Started warfarin. Plan to stop lovenox when INR is 2.0 Medication Changes From Visit Per Cardiology: -Digoxin 0.125mg daily -metoprolol succinate 25mg daily -Cardizem CD 180mg daily -Lovenox 80mg q12 with warfarin 3mg daily until INR between 2-3 -Tamsulosin 0.4mg qhs -pantoprazole 40mg BID -lisinopril 20mg -melatonin 3mg qhs Admission HPI Per Admitting Provider History obtained from patient, family, and records. Limited history from patient secondary to aphasia. Medical history significant for hypertension, hyperlipidemia, DM2 on oral medications, HCV status post Rx, anxiety/mood disorder. Patient sick with COVID-19 illness 2 weeks ago as per family. Self-limited cough symptoms. Last week, patient noted to have right flank pain complaints. Patient not feeling well, not eating a lot. Occasional NSAID intake at home as per family. No hematuria complaints. Patient noted to be confused this morning. Could not get words out. Patient was not able to slat pickler grandchild from school. SBP noted to be 60s at home. Patient brought to the ER for evaluation. Stroke alert called upon arrival at the ER. Aspirin, Plavix, Zosyn administered at the ER. Patient unable to answer questions regarding headache, chest pain, SOB, abdominal/flank pain. 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 Admission Exam Per Admitting Provider GENERAL: Slightly uncomfortable, aphasic, obese, no respiratory distress SKIN: Pallor, warm HEENT: Pale palpebral conjunctivae, no ptosis, dry buccal mucosa NECK : Supple, no tenderness CHEST : CTA, no tenderness HEART : Tachycardic, no obvious murmurs ABDOMEN: Some distention, right flank tenderness RECTAL : Intact sphincter, melanotic stool, FOBT positive EXTREMITIES : No LE swelling/tenderness, no other conspicuous deformities noted NEUROLOGIC : Aphasic, no facial asymmetry, gait and stance not assessed Principal Dx & Hospital Course #1 = Principal Diagnosis (1) Gangrene: (2) Atrial fibrillation with rapid ventricular response: (3) Bacteremia: (4) Acute encephalopathy: (5) Anemia: (6) HTN (hypertension): (7) Septic shock: (8) Acute kidney injury: (9) Complicated urinary tract infection: (10) Hydronephrosis due to obstruction of ureter: (11) Ureterolithiasis: (12) Sepsis: Plan Pt is a 73yoF with PMHx significant for HTN, HLD, T2DM, HCV status posttreatment, anxiety/mood disorder who presented with confusion and right flank pain. Has had a complicated course that included severe sepsis in the setting of obstructive uropathy and complicated UTI, requiring an ICU stay for treatment of septic shock. Subsequently developed what appeared to be a DIC picture with subsequent development of acute CVA and acrocyanosis with gangrene in her upper and lower extremities. Complicated UTI Urolithiasis and obstructive uropathy Urosepsis Bacteremia Severe sepsis POA: Secondary to above. Respiratory rate/pulse rate/WBC elevated at presentation. Lactate and procalcitonin elevated at presentation. UA suggestive of infection, 07/26 Urine Cx - Klebsiella Pneumoniae 07/25 Bl Cx x2 - grew Klebsiella Pneumoniae Repeat Blood Cx x2 with NGTD Septic shock: Patient's blood pressure did not improve despite aggressive fluid resuscitation, was transferred to ICU for pressor support on admission. Likely metabolic encephalopathy: Secondary to above Gram-negative bacteremia: 07/25 blood cultures x2 positive for Klebsiella pneumoniae. Repeat blood culture 07/27 no growth to date. Urology evaluated, status post cystoscopy and right retrograde pyelogram/right ureteral stent placement 07/26/2023 Patient was started on cefepime 07/26, to ceftriaxone 07/27, d/w ID 07/28 - agreed w/ Rx. Continue. CTAP repeated 07/29 for concern of perinephric abscess, which was ruled out. Pt was treated with Cefepime or Ceftriaxone for a total of 14 days. Transitioned to ciprofloxacin from 08/09 (see below) - finished course on 08/20/23 Acrocyanosis Gangrene Acute CVA Patient had developed acrocyanosis and nasal tip cyanosis overnight on 07/26- 07/27. Patient has been off of pressor support [vasopressin and Levophed] from 07/26. 07/27 - Duplex arterial scan of UE and LE WNL. Venous Doppler BLE negative for DVT. Patient was started on heparin drip and Solu-Medrol for concern of cryoglobulinemia. 07/28 - acrocyanosis progressed. Discussed with various subspecialties including rheumatology/hematology/avid editor. Peripheral blood smear with no schistocytes. TTP HUS ruled out. DIC from sepsis versus ischemic necrosis from recent pressor use was contemplated on differential diagnosis for acrocyanosis. Patient was transferred to ICU and was intubated due to tachypnea/shallow breathing. She also developed a fever, and was started on vancomycin/acyclovir/ampicillin on top of Rocephin for possible encephalitis versus meningitis. Lumbar puncture was deferred due to dropping platelets. MRI brain was obtained which revealed punctate right occipital lobe lacunar infarct. Pt seen by neurology. ANAHI screen was negative. PF4 antibody negative --HIT ruled out. Again no schistocytes noted on peripheral smearTTP HUS ruled out Haptoglobin within normal limits Patient was extubated on August Platelets improved as well. 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 Orthopedics consulted for possible debridement/surgical treatment. Seen by orthopedics on August 02, 2023 and August 04, 2023; do not recommend amputation at this point in time. Recommended allowing for gangrene to fully demarcate to determine what requires amputation and what can be salvaged. Orthopedics re-consulted on 08/08- appreciate recs -recommended waiting for further delineation which can take a few weeks, can be done electively. However pt needs monitoring for signs of infection -podiatry consult for lower extremity evaluation From August 09, 2023 to Aug 13, 2023, pt underwent leech therapy in the hospital through orthopedics surgery, per wound care recommendations (see ortho procedure note from same date). Received 0.5mg Ativan to help with anxiety during the process. Per orthopedics, will need antibiotic coverage in the form of ciprofloxacin 500mg BID which pt received until August 20, 2023. 08/15 - Discussed with Dr. Lay (orthopedic surgery) - Pt should continue on ciprofloxacin for 1 week since discontinuation of leech therapy. The last day leech therapy was August 13. Therefore the last day of ciprofloxacin should be August 20. She may continue occupational therapy for active and passive range of motion. There are no restrictions with therapy. She should elevate bilateral upper extremities. Recommendation is to use Danilo pillow, which has been previously ordered, as much as possible to elevate the extremity. Follow up w/ Dr. Lay ([facility]) in 10-14 days from discharge. New onset anemia Likely UGIB Prior hemoglobin level 13.9, admitting hemoglobin 11.1 Hemoccult positive melanotic stool noted at the ER GI evaluated 07/26, PPI drip changed to twice daily. Monitor H&H and transfuse as needed. Will likely need follow-up with GI as an outpatient. Hemoglobin down to 6.3 on 08/06; transfused 2 units- currently stable at ~ 8.5 Monitor daily CBC Atrial fibrillation with RVR Demand ischemia Patient developed atrial fibrillation with RVR on July 30, 2023 Echocardiogram from 07/26 shows EF of 50 to 55% with mild concentric LVH. 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 Also on digoxin. Transitioned to Cardizem 180 mg daily as planning for discharge this week and reducing metoprolol to 25 mg once daily (as per cardiology recommendations for DC) Continue on Lovenox for anticoagulation. Appreciate Cardiology recs Started warfarin. Plan to stop Lovenox when INR is 2.0 Acute on chronic diastolic CHF: Chest x-ray from 08/01 showed pulmonary edema Echocardiogram as above Diuresis with IV Lasix 40 mg twice daily - stopped Continue IV diuretics as needed to get negative balance. Right occipital lobe lacunar infarct: Head and neck imaging with 07/29 MRI w/ punctate right occipital lobe lacunar infarct. Neurology consulted Continue statin, cont. anticoagulation w/ heparin or warfarin Follow up with neurology as an outpatient. Acute kidney injury-resolved: Admitting creatinine of 1.6, past creatinine 0.89. Status post IV fluid, s/p pressor support. Likely prerenal secondary to septic shock. Improvement with IV hydration Acute metabolic encephalopathy- resolved Acute fever-resolved Thrombocytopenia- resolved Other chronic medical conditions: Continue with/resume home meds as and when able. Hypertension, continue on lisinopril. hyperlipidemia, on statin Rx. Continue DM2 on oral medications, reasonable control as of recent hemoglobin A1c of 7.1 last March 2023 HCV status post Rx Recent COVID-19 illness from 2 weeks PTAmonitor respiratory symptoms. Discharge Exam General: Alert. No acute distress Skin: blackened hands and feet Psych: Appropriate mood and affect Neuro: left arm weak, unable to move HEENT: NC/AT Chest: Nontender to palpation. CV: RRR Resp:no increased effort of breathing Abdomen: Soft Extremities: blackened hands and feet Updated Medication List Medication Instructions Recorded Confirmed Type atorvastatin 40 mg tablet 40 mg PO QAM 07/25/23 07/25/23 History calcium carbonate 1,000 mg-vitamin 1 tab PO DAILY 07/25/23 07/25/23 History D3 20 mcg (800 unit) tablet cyanocobalamin (vitamin B-12) 1,000 mcg PO QAM 07/25/23 07/25/23 History 1,000 mcg tablet ibandronate 150 mg tablet 150 mg PO .EVERY 30 DAYS 07/25/23 07/25/23 History metformin 1,000 mg tablet 1,000 mg PO BIDWMEAL 07/25/23 07/25/23 History venlafaxine 150 mg 150 mg PO DAILY 07/25/23 07/25/23 History capsule,extended release 24 hr digoxin 125 mcg (0.125 mg) tablet 0.125 mg PO DAILY@1600 #30 tabs 08/21/23 Rx ([facility]) diltiazem HCl 180 mg 180 mg PO QAM #30 caps 08/21/23 Rx capsule,extended release 24 hr enoxaparin 80 mg/0.8 mL 80 mg (0.8 mL) subcut Q12H #8 mL 08/21/23 Rx subcutaneous syringe (Lovenox) lisinopril 20 mg tablet 20 mg PO QAM #30 tabs 08/21/23 Rx melatonin 3 mg tablet 3 mg PO HS PRN sleep #30 tabs 08/21/23 Rx metoprolol succinate 25 mg 25 mg PO QAM #30 tabs 08/21/23 Rx tablet,extended release 24 hr pantoprazole 40 mg tablet,delayed 40 mg PO BID #60 tabs 08/21/23 Rx release tamsulosin 0.4 mg capsule 0.4 mg PO HS #30 caps 08/21/23 Rx warfarin 3 mg tablet 3 mg PO DAILY@1600 #30 tabs 08/21/23 Rx Hospital Stay Data Consultations 07/25/23 20:59 ED Decision to Admit Stat 07/26/23 02:43 Consult Gastroenterology Routine Consult Neurology Routine Consult Urology Routine 07/26/23 04:47 Consult Event Coordinator Marketing And Sales Routine 07/28/23 08:17 Consult Infectious Diseases Routine 07/28/23 13:20 Consult Hematology Stat 07/28/23 15:29 Consult Event Coordinator Marketing And Sales Routine 07/31/23 10:19 Consult Cardiology Routine 08/02/23 11:34 Consult Orthopedic Surgery Routine 08/08/23 07:48 Consult Orthopedic Surgery Routine 08/09/23 05:49 Consult Podiatry Routine Procedures Performed Operation Date: 07/26/23 01:30 Actual Procedures p Cystoscopy, right retrograde pyelogram, right ureteral stent placement(Right) - Stu Mahajan MD Diagnostic Imagining Performed 07/25/23 19:36 CT angio head w con Stat CT angio neck with con Stat CT head/brain wo con Stat 07/25/23 21:49 CT angio chest PE protocol Stat 07/25/23 21:50 CT head/brain wo con Stat 07/25/23 21:52 CT abd pelvis IV con only Stat 07/26/23 FL KUB Routine 07/27/23 07:05 US arterial duplex LE BI Stat US arterial duplex UE BI Stat 07/27/23 07:16 US venous doppler LE BI Routine 07/28/23 08:15 CT head/brain wo con Stat US abdomen limited Routine 07/28/23 13:31 US venous doppler LE BI Stat 07/28/23 13:36 US venous doppler UE BI Stat 07/28/23 15:15 US arterial duplex LE BI Urgent 07/28/23 19:06 MRI Brain [MR brain wo con] Urgent 07/29/23 13:02 CT Abd and Pelvis [CT abd pelvis wo con] Urgent Chest X-Ray 07/25/23 19:36 XR chest 1V portable CLINICAL HISTORY: neuro deficit, acute stroke suspected COMPARISON STUDY: No previous studies for comparison. FINDINGS: Lung volumes are normal. There is no consolidation to suggest pneumonia. Linear bibasilar densities favor atelectasis. There is no pneumothorax or pleural effusion. Cardiac size is normal. Mediastinal contours are normal. There is no evidence for pulmonary edema. IMPRESSION: No acute cardiopulmonary findings. ACT 112: Negative or not required by law. Electronically signed by: Yahir Odell M.D. 07/26/2023 7:[address] 07/25/23 19:36 CR Exam(s): CT HEAD Without Contrast EXAM: CT Head Without Intravenous Contrast CLINICAL HISTORY: Reason for exam: neuro deficit, acute stroke suspected. TECHNIQUE: Axial computed tomography images of the head/brain without intravenous contrast. CTDI is 46.85 mGy and DLP is 677.48 mGy-cm. Automated exposure control was utilized for the study. A dose lowering technique was utilized adhering to the principles of ALARA. COMPARISON: None. FINDINGS: Brain: No mass effect or acute infarct. No acute hemorrhage. Mild atrophy and chronic white matter disease. Ventricles: No hydrocephalus or midline shift. Bones/joints: No acute bony lesion. Soft tissues: No scalp hematoma. Sinuses: Clear. Mastoid air cells: No mastoid effusion. IMPRESSION: 1. Mild age-related findings. 2. No acute infarct, bleed, or acute intracranial abnormality. Communications: Call Doctor Stroke Electronically signed by: Raissa Hernandez M.D. 07/25/23 20:22 PM Head CTA 07/25/23 19:36 CR Exam(s): CTA HEAD With Contrast IV Amt: 117ML OPTIRAY 320 EXAM: CT Angiography Head With Intravenous Contrast CLINICAL HISTORY: Reason for exam: neuro deficit, acute stroke suspected. TECHNIQUE: Axial computed tomographic angiography images of the head with intravenous contrast. CTDI is 46.85 mGy and DLP is 677.48 mGy-cm. Automated exposure control was utilized for the study. A dose lowering technique was utilized adhering to the principles of ALARA. MIP reconstructed images were created and reviewed. CONTRAST: Patient received 117ML OPTIRAY 320 of IV contrast COMPARISON: None. FINDINGS: Right internal carotid artery: Patent. Right anterior cerebral artery: Patent. Right middle cerebral artery: Patent. Right posterior cerebral artery: Patent. Right vertebral artery: Patent. Right dominant system. Left internal carotid artery: Patent. Left anterior cerebral artery: Patent. Left middle cerebral artery: Patent. Left posterior cerebral artery: Patent. Left vertebral artery: Patent. Basilar artery: Patent. Other: Moderate atherosclerosis bilateral cavernous ICA, with less than 50% stenosis. IMPRESSION: 1. No aneurysm or large vessel occlusion. Communications: Call Doctor Stroke Electronically signed by: Raissa Hernandez M.D. 07/25/23 20:22 PM Neck CTA 07/25/23 19:36 CR Exam(s): CTA NECK With Contrast IV Amt: 117 cc opti 320 EXAM: CT Angiography Neck With Intravenous Contrast CLINICAL HISTORY: Reason for exam: neuro deficit, acute stroke suspected. TECHNIQUE: Routine carotid CT angiography protocol was performed with intravenous contrast. NASCET criteria using the distal ICAs for comparison were used for evaluation of stenoses. CTDI is 16.61 mGy and DLP is 479 mGy-cm. Automated exposure control was utilized for the study. A dose lowering technique was utilized adhering to the principles of ALARA. MIP reconstructed images were created and reviewed. Mild motion artifact. CONTRAST: Patient received 117 cc opti 320 of IV contrast COMPARISON: None. FINDINGS: Right common carotid artery: Patent. Right internal carotid artery: Patent. Atherosclerosis with approximately 50% stenosis. Right vertebral artery: Patent. Right dominant system. Left common carotid artery: Patent. Left internal carotid artery: Patent. Atherosclerosis with mild motion/streak artifact from the calcium, and irregular luminal narrowing, probably moderate, 50-60%. Suspect a high risk, ulcerative plaque in this location. Left vertebral artery: Patent. Other: Moderate atherosclerosis of the aortic arch. Mild apical pleural scarring bilaterally. IMPRESSION: 1. Moderate LEFT ICA stenosis, possible high risk, ulcerative plaque in this location. There is streak artifact from the calcium and patient motion limiting evaluation. 2. No dissection, occlusion, or other significant stenosis. CAROTID STENOSIS REFERENCE USING NASCET CRITERIA: % ICA stenosis = (1 - narrowest ICA diameter/diameter of distal cervical ICA) x 100. Mild - <50% stenosis. Moderate - 50-69% stenosis. Severe - 70-94% stenosis. Near occlusion - 95-99% stenosis. Occluded - 100% stenosis. Communications: Call Doctor Stroke Electronically signed by: Raissa Hernandez M.D. 07/25/23 20:22 PM Chest CTA 07/25/23 21:49 Exam(s): CTA CHEST IV Amt: 117 cc opti 320 EXAM: CT Angiography Chest With Intravenous Contrast CLINICAL HISTORY: Reason for exam: hypoxia, tachycardia, r/o PE. TECHNIQUE: Axial computed tomographic angiography images of the chest with intravenous contrast. CTDI is 23.36 mGy and DLP is 789.22 mGy-cm. Automated exposure control was utilized for the study. A dose lowering technique was utilized adhering to the principles of ALARA. MIP reconstructed images were created and reviewed. 117 cc Optiray 320 given IV. Moderate artifact breathing motion, body habitus and bilateral arms in the field of view. COMPARISON: None. FINDINGS: Pulmonary arteries: No pulmonary embolism. Aorta: No dissection or aneurysm. Lungs: Generally clear, mild bibasilar atelectasis or infiltrate, Limited by breathing motion. No consolidation. Pleural space: No significant effusion. No pneumothorax. Heart: Mild cardiomegaly. No significant pericardial effusion. No evidence of elevated right heart pressures. Bones/joints: No acute fracture. Soft tissues: Small hiatal hernia. Lymph nodes: No enlarged lymph nodes. IMPRESSION: 1. No pulmonary embolism. 2. Mild bibasilar atelectasis or infiltrate. 3. Limited detail due to motion artifact. Electronically signed by: Raissa Hernandez M.D. 07/25/23 23:[address] 07/25/23 21:50 Exam(s): CT HEAD Without Contrast EXAM: CT Head Without Intravenous Contrast CLINICAL HISTORY: Reason for exam: ams. TECHNIQUE: Axial computed tomography images of the head/brain without intravenous contrast. CTDI is 39.03 mGy and DLP is 546.36 mGy-cm. Automated exposure control was utilized for the study. A dose lowering technique was utilized adhering to the principles of ALARA. Residual contrast from prior exams. COMPARISON: Head CT 1937 hrs., same day. FINDINGS: Brain: No mass effect or acute infarct. No acute hemorrhage, with residual contrast in the vasculature, limiting detail. Mild atrophy and chronic white matter disease, stable. Ventricles: No hydrocephalus or midline shift. Bones/joints: No acute bony lesion. Soft tissues: No scalp hematoma. Sinuses: Clear. Mastoid air cells: No mastoid effusion. IMPRESSION: 1. Mild age-related findings. 2. No acute infarct, bleed, acute intracranial abnormality, or interval change. Electronically signed by: Raissa Hernandez M.D. 07/25/23 22:57 PM Abdomen/Pelvis CT 07/25/23 21:52 Exam(s): CT ABDOMEN + PELVIS With Contrast IV Amt: 117 cc opti 320 EXAM: CT Abdomen and Pelvis With Intravenous Contrast CLINICAL HISTORY: Reason for exam: ams, fever, vomiting. TECHNIQUE: Axial computed tomography images of the abdomen and pelvis with intravenous contrast. CTDI is 22.25 mGy and DLP is 1196.63 mGy-cm. Automated exposure control was utilized for the study. A dose lowering technique was utilized adhering to the principles of ALARA. Moderate artifact from arms in the field of view, breathing motion and body habitus. CONTRAST: Patient received 117 cc opti 320 of IV contrast COMPARISON: None. FINDINGS: Lung bases: Clear. Liver: Fatty. Gallbladder and bile ducts: Cholelithiasis without acute cholecystitis No ductal dilation. Pancreas: No ductal dilation. Spleen: Unremarkable. Adrenals: Unremarkable. Kidneys and ureters: Moderate patchy enhancement of the right renal cortex, with overall delayed enhancement, and a mildly obstructing 2 x 5 mm stone in the mid ureter at L5. Cannot rule out right pyelonephritis or infected stone, with perinephric edema, though edema can be seen with obstruction. No perinephric abscess. Small left renal cyst. No left hydronephrosis. Stomach and bowel: No obstruction. Fairly collapsed colon, wall thickening may be artifact, cannot rule out colitis. Appendix: Normal. Intraperitoneal space: No free air or fluid. Bones/joints: No acute fracture. Soft tissues: Unremarkable. Vasculature: No aortic aneurysm. Lymph nodes: No enlarged lymph nodes. Bladder: Mildly distended with contrast, grossly normal Reproductive: Unremarkable as visualized. IMPRESSION: 1. Mild right hydronephrosis, secondary to a 2 x 5 mm stone in the mid ureter. There also may be right pyelonephritis, correlate clinically; no perinephric abscess. 2. Collapsed colon, limits evaluation, cannot rule out colitis, correlate clinically to exclude this entity. 3. Cholelithiasis without acute cholecystitis. Electronically signed by: Raissa Hernandez M.D. 07/25/23 23:05 PM Abdomen Fluoroscopy 07/26/23 00:00 FL KUB CLINICAL HISTORY: RT CYSTO WITH STENT COMPARISON STUDY: CT of the abdomen and pelvis July 25, 2023. FLUOROSCOPY TIME: 4 seconds. Ka, r: 1.1119 mGy FLUOROSCOPIC IMAGES: 3 FINDINGS: Fluoroscopy was provided during right retrograde pyelogram with right ureteral stent insertion. Proximal aspect of the stent is within the right collecting system. Gallstones within the gallbladder are incidentally noted. IMPRESSION: Fluoroscopy provided during right retrograde pyelogram with right ureteral stent insertion. ACT 112: Negative or not required by law. Electronically signed by: Yahir Odell M.D. 07/26/2023 6:56 AM Chest X-Ray 07/26/23 04:55 XR chest 1V portable CLINICAL HISTORY: central line COMPARISON STUDY: Chest radiograph and chest CT July 25, 2023. FINDINGS: There is no pneumothorax following placement of a right internal jugular central line. Catheter tip projects over the mid SVC. No pleural effusion is present. There is mild cardiomegaly. No evidence for pulmonary edema. No consolidation to suggest pneumonia. IMPRESSION: No pneumothorax following placement of a right internal jugular central line. ACT 112: Negative or not required by law. Electronically signed by: Yahir Odell M.D. 07/26/2023 6:54 AM Chest X-Ray 07/26/23 14:52 XR chest 1V portable CLINICAL HISTORY: f/u TECHNIQUE: Single frontal radiograph of the chest was obtained. Comparison: Comparison is made to chest radiograph 07/26/2023 FINDINGS: Lines and tubes are stable. The cardiomediastinal silhouette is normal. The lungs are clear. No evidence of pleural effusion or pneumothorax. IMPRESSION: No acute chest disease. ACT 112: Negative or not required by law. Electronically signed by: Jomar Palomo M.D. 07/26/2023 3:27 PM Duplex Scan Lower Extremity Artery 07/27/23 07:05 US arterial duplex LE BI CLINICAL HISTORY: cyanosis TECHNIQUE: Real-time grayscale and color and spectral Doppler ultrasound imaging of the bilateral lower extremity arteries was performed. Measurements calculated based on NASCET criteria. COMPARISON: None available at the time of this dictation. FINDINGS: No elevated velocities or parvus tardus waveforms are seen. Biphasic waveforms are seen in the left calf and right anterior tibial and dorsalis pedis arteries. Atherosclerotic plaque is seen, moderate on the left and mild on the right. IMPRESSION: No hemodynamically significant stenosis. ACT 112: Negative or not required by law. Electronically signed by: Jomar Palomo M.D. 07/27/2023 9:59 AM Duplex Scan Upper Extremity Artery 07/27/23 07:05 US arterial duplex UE BI CLINICAL HISTORY: cyanosis TECHNIQUE: Real-time grayscale sonographic images of the bilateral upper extremity arteries were obtained. Comparison: None available at the time of this dictation. FINDINGS/IMPRESSION: No abnormally elevated or diminished velocities bilaterally. Right carotid cannot be evaluated due to bandages. ACT 112: Negative or not required by law. Electronically signed by: Jomar Palomo M.D. 07/27/2023 9:56 AM Venous Doppler Study 07/27/23 07:16 US venous doppler LE BI CLINICAL HISTORY: r/o DVT, B/l TECHNIQUE: Bilateral lower extremity real-time compression venous ultrasound with Color Doppler imaging. Utilizing real-time ultrasonic imaging multiple real time high-resolution ultrasonic images with compression and noncompression maneuvers of the deep venous system in addition to color doppler imaging were performed from the common femoral vein through the proximal calf veins. COMPARISON: None available at the time of this dictation. FINDINGS/IMPRESSION: Currently there is normal compressibility of the deep venous system from the common femoral vein through the proximal calf veins. No superficial venous thrombosis is identified. ACT 112: Negative or not required by law. Electronically signed by: Jomar Palomo M.D. 07/27/2023 12:09 PM Abdomen Ultrasound 07/28/23 08:15 ABDOMINAL ULTRASOUND, RIGHT UPPER QUADRANT HISTORY: Acute right upper quadrant abdominal pain RUQ US.. COMPARISON: CT abdomen and pelvis 07/25/2023 FINDINGS: Pancreas: The pancreas demonstrates a normal echotexture. Liver: Increased echogenicity with poor through transmission. No marginal nodularity. No hepatic mass identified. Patent portal vein. Gallbladder: The gallbladder wall measures upper limits of normal at 3 mm. There is mild gallbladder distention. No pericholecystic fluid identified. The sonographic Celis sign was unable to be assessed secondary to patient co ndition. Cholelithiasis with gallstones measuring up to 1.8 cm.. CBD: 0.4 cm. Right kidney: No hydronephrosis. IMPRESSION: 1. Cholelithiasis with gallbladder distention and borderline wall thickening. There is no pericholecystic fluid and the sonographic Celis sign was unable to be assessed. Findings are equivocal for acute cholecystitis. Findings could be correlated with nuclear medicine hepatobiliary scan. 2. No biliary ductal dilation. 3. Hepatic steatosis. ACT 112: Negative or not required by law. Electronically signed by: Morteza Boogie M.D. 07/29/2023 6:[address] 07/28/23 08:15 CT head/brain wo con CLINICAL HISTORY: ro bleed. Confusion Technique: Contiguous axial CT images of the head were acquired from the base of the skull to the vertex without intravenous contrast administration. Images were viewed in brain, subdural and bone windows. Automated dose lowering techniques and/or adjustment according to patient size were utilized for this exam. Comparison: Comparison is made to CT head 07/25/2023 Findings: Areas of decreased attenuation are present in the periventricular and subcortical white matter bilaterally consistent with small vessel ischemic disease. Generalized cerebral atrophy with commensurate enlargement of the ventricles, sulci, and cisterns is also present. There is no acute intracranial hemorrhage or evidence of acute territorial infarction. No shift of the midline structures, mass effect, or extra-axial abnormalities are shown. Atherosclerotic calcifications are present in the intracranial segments of the internal carotid arteries. Imaged portions of the paranasal sinuses and mastoid air cells are clear. The orbits appear normal. There are no acute fractures of the calvaria or scalp swelling. Impression: No acute intracranial hemorrhage, no evidence of acute territorial infarction or other acute intracranial disease process. ACT 112: Negative or not required by law. Electronically signed by: Jomar Palomo M.D. 07/28/2023 8:53 AM Venous Doppler Study 07/28/23 13:31 Exam(s): US VENOUS BILATERAL LOWER EXTREMITIES EXAM: US Duplex Bilateral Lower Extremities Veins CLINICAL HISTORY: Reason for exam: ro clot. TECHNIQUE: Real-time duplex ultrasound scan of the bilateral lower extremity veins integrating B-mode two-dimensional vascular structure, Doppler spectral analysis, color flow Doppler imaging and compression. COMPARISON: No relevant prior studies available. FINDINGS: Right deep veins: Unremarkable. No DVT in the right common femoral, femoral, proximal deep femoral or popliteal veins. The veins demonstrate normal color flow, are normally compressible, with normal phasic flow and/or augmentation response. Right superficial veins: Unremarkable. No thrombus in the visualized right great saphenous vein. Left deep veins: Unremarkable. No DVT in the left common femoral, femoral, proximal deep femoral or popliteal veins. The veins demonstrate normal color flow, are normally compressible, with normal phasic flow and/or augmentation response. Left superficial veins: Unremarkable. No thrombus in the visualized left great saphenous vein. Soft tissues: No acute findings. No popliteal cyst. IMPRESSION: Normal bilateral lower extremity duplex venous ultrasound. Electronically signed by: Joesph Tejeda MD 07/28/23 23:59 PM Venous Doppler Study 07/28/23 13:36 Exam(s): US VENOUS BILATERAL UPPER EXTREMITIES EXAM: US Duplex Bilateral Upper Extremities Veins CLINICAL HISTORY: Reason for exam: ro clot. TECHNIQUE: Real-time duplex ultrasound scan of the bilateral upper extremity veins integrating B-mode two-dimensional vascular structure, Doppler spectral analysis, color flow Doppler imaging and compression. COMPARISON: No relevant prior studies available. FINDINGS: Right deep veins: Unremarkable. No DVT in the right internal jugular, subclavian, axillary, or brachial veins. The veins demonstrate normal color flow, are normally compressible, with normal phasic flow and/or augmentation response. Right superficial veins: Unremarkable. No thrombus in the visualized right basilic and cephalic veins. Left deep veins: Unremarkable. No DVT in the left internal jugular, subclavian, axillary, or brachial veins. The veins demonstrate normal color flow, are normally compressible, with normal phasic flow and/or augmentation response. Left superficial veins: There is occlusive thrombus within the left antecubital vein and a short segment of the left distal cephalic vein. Soft tissues: No acute findings. IMPRESSION: No DVT Superficial thrombophlebitis involving the antecubital vein a short segment of the cephalic vein Electronically signed by: Joesph Tejeda MD 07/29/23 04:44 AM Duplex Scan Lower Extremity Artery 07/28/23 15:15 Exam(s): US ARTERIAL BILATERAL LOWER EXTREMITIES EXAM: US Duplex Bilateral Lower Extremities Arteries CLINICAL HISTORY: Reason for exam: ro clots. TECHNIQUE: Real-time duplex ultrasound scan of the bilateral lower extremity arteries integrating B-mode two-dimensional vascular structure, Doppler spectral analysis and color flow Doppler imaging. COMPARISON: No relevant prior studies available. FINDINGS: Right common femoral artery: No acute findings. No occlusion or significant stenosis on color flow and spectral Doppler imaging. Normal waveform. Right superficial femoral artery: No acute findings. No occlusion or significant stenosis on color flow and spectral Doppler imaging. Normal waveform. Right popliteal artery: No acute findings. No occlusion or significant stenosis on color flow and spectral Doppler imaging. Normal waveform. Right calf/foot arteries: No acute findings. No occlusion or significant stenosis on color flow and spectral Doppler imaging. Normal waveform. Left common femoral artery: See below. Left superficial femoral artery: Mildly elevated velocity within the proximal left SFA and common femoral arteries. Monophasic flow seen within the left peroneal and posterior tibial arteries. Left popliteal artery: No acute findings. No occlusion or significant stenosis on color flow and spectral Doppler imaging. Normal waveform. Left calf/foot arteries: See above. Soft tissues: Unremarkable. Other findings: IMPRESSION: 1. Mildly elevated velocities within the proximal left SFA (269 cm/second). 2. Right lower extremity demonstrate no focal stenosis.. Electronically signed by: Joesph Tejeda MD 07/28/23 23:47 PM Chest X-Ray 07/28/23 16:37 XR chest 1V portable CLINICAL HISTORY: rr elevated TECHNIQUE: Single frontal radiograph of the chest was obtained. Comparison: Comparison is made to chest radiograph 07/26/2023 FINDINGS: Right IJ catheter terminates in the IVC. Calcified aortic knob is seen. Faint bibasilar airspace opacities are seen. Small bilateral pleural effusions are seen. IMPRESSION: Faint bibasilar airspace opacities which may represent atelectasis, pneumonia, and/or aspiration. Small bilateral pleural effusions. ACT 112: Negative or not required by law. Electronically signed by: Jomar Palomo M.D. 07/28/2023 5:04 PM Chest X-Ray 07/28/23 18:25 XR chest 1V portable CLINICAL HISTORY: s/p intubation TECHNIQUE: Single frontal radiograph of the chest was obtained. Comparison: Comparison is made to chest radiograph 07/28/2023 FINDINGS: Endotracheal tube terminates 3 cm from the clarissa. An enteric tube tip and side port lie below the diaphragm. The right jugular venous catheter terminates in the mid SVC. The cardiomediastinal silhouette is normal. Previously noted airspace opacities are somewhat less prominent on this exam. Small bilateral pleural effusions are seen. IMPRESSION: 1. Satisfactory position of endotracheal tube and enteric tube. 2. Small bilateral pleural effusions. 3. Interval improvement in bibasilar airspace opacities which may represent decreased atelectasis. ACT 112: Negative or not required by law. Electronically signed by: Jomar Palomo M.D. 07/28/2023 6:50 PM Brain MRI 07/28/23 19:06 Exam(s): MRI HEAD Without Contrast EXAM: MR Head Without Intravenous Contrast CLINICAL HISTORY: Reason for exam: Evaluate for encephalitis. TECHNIQUE: Magnetic resonance images of the head/brain without intravenous contrast in multiple planes. COMPARISON: No relevant prior studies available. FINDINGS: Brain: Right occipital lobe punctate area of restricted diffusion. Mild T2/flair signal hyperintensity scattered throughout the subcortical and deep white matter. No hemorrhage. Ventricles: Unremarkable. No ventriculomegaly. Bones/joints: Unremarkable. No acute fracture. Sinuses: Unremarkable as visualized. No acute sinusitis. Mastoid air cells: Unremarkable as visualized. No mastoid effusion. Orbits: Unremarkable as visualized. IMPRESSION: Right occipital lobe lacunar infarct Electronically signed by: Joesph Tejeda MD 07/29/23 01:09 AM Abdomen/Pelvis CT 07/29/23 13:02 CT SCAN OF THE ABDOMEN AND PELVIS WITHOUT IV CONTRAST CLINICAL HISTORY: Ureteral stone. Clinical concern for perinephric abscess. COMPARISON STUDY: Abdominal CT dated 07/25/2023. TECHNIQUE: CT scan of the abdomen and pelvis is performed from the lung bases to the proximal femora. Images are reviewed in the axial, sagittal, and coronal planes. IV contrast was not administered for this examination. Note that the examination is significantly suboptimal without IV contrast for the reported clinical history. A dose lowering technique was utilized adhering to the principles of ALARA. CT DOSE: 1519.38 mGy.cm FINDINGS: Lung bases: The heart is normal in size and without pericardial effusion. The coronary arteries are densely calcified. There are small pleural effusions with dependent consolidation. Liver: The unenhanced liver is enlarged, measuring 19.6 cm in length. The liver demonstrates heterogeneously diminished attenuation indicating steatosis. Fatty sparing is seen adjacent to the gallbladder fossa. There is no intrahepatic biliary ductal dilatation. Gallbladder: The gallbladder is distended and contains calcified gallstones. There is also vicariously excreted contrast within the gallbladder lumen. Spleen: Normal in size and attenuation. Pancreas: The unenhanced pancreas is grossly unremarkable. Adrenal glands: Nodular thickening of the adrenal glands is similar to previous. Kidneys: The unenhanced kidneys are normal in size and without hydronephrosis. A right ureteral stent is new from previous. A 4 mm calculus is seen in the right proximal ureter on image #222 along the course of the stent. This is located at the level of L4. Gas within the right ureter is nonspecific and likely related to recent dilatation. No additional calculi are clearly identified in the right kidney. There are at least 2 small nonobstructing left renal calculi which measure up to 3 mm. A 1.5 cm exophytic cyst is again seen arising from the left upper pole. Retained cortical contrast is shown in both kidneys and suggests acute renal injury. There is no evidence of perinephric fluid collection. There is mild right-sided perinephric stranding. Abdominal vasculature: The abdominal aorta is normal in course and caliber noting moderate to advanced atherosclerotic calcification. Bowel: An enteric tube terminates in the mid to distal stomach. A rectal tempera ture probe is in place. No bowel obstruction is seen. Residual enteric contrast is suggested in the right colon. The appendix is well-visualized and normal. Peritoneum: There is trace perisplenic ascites as well as trace free fluid in the pelvis. No intraperitoneal free air is identified. There are fat-containing supraumbilical hernias. Lymphadenopathy: None. Pelvic viscera: The bladder is decompressed around a Joshi catheter and contains the distal end of a right ureteral stent. The uterus is surgically absent. No adnexal lesion is seen. Skeletal structures: The skeletal structures are osteopenic. There is mild lumbosacral spondylosis. No lytic or blastic lesions are seen. IMPRESSION: 1. A right ureteral stent has been placed. A 4 mm calculus is again seen in the right proximal ureter on the course of the stent. 2. There is no hydronephrosis. 3. Foci of gas within the right proximal ureter are nonspecific and likely related to instrumentation. Correlate with urinalysis. 4. There is no evidence of perinephric fluid collection as clinically queried. 5. There is retained cortical contrast present in both kidneys suggesting acute renal injury. Correlate with clinical and laboratory findings. 6. Left-sided nephrolithiasis. 7. Small pleural effusions with dependent consolidation. This likely represents atelectasis. Correlate clinically. 8. Cholelithiasis. 9. Hepatomegaly and hepatic steatosis. 10. Trace abdominopelvic ascites. 11. Additional findings as above. ACT 112: Negative or not required by law. Electronically signed by: Pravin Nguyen M.D. 07/29/2023 2:52 PM Chest X-Ray 07/30/23 07:00 SINGLE VIEW CHEST CLINICAL HISTORY: Respiratory failure. FINDINGS: An AP, portable, upright chest radiograph is compared to study dated 07/28/2023 and correlated with chest CT dated 07/25/2023. An endotracheal tube, an enteric tube, and a right internal jugular central venous catheter are unchanged in position. The cardiomediastinal silhouette is top normal for projection noting atherosclerotic calcification of the thoracic aorta. There is pulmonary vascular congestion. There are small pleural effusions with dependent consolidation. No pneumothorax is seen. The skeletal structures are osteopenic. The bony thorax is grossly intact. IMPRESSION: 1. Stable lines and tubes. 2. Pulmonary vascular congestion has increased from previous. 3. Small pleural effusions with dependent consolidation. These have increased from previous. ACT 112: Negative or not required by law. Electronically signed by: Pravin Nguyen M.D. 07/30/2023 1:29 PM Chest X-Ray 07/31/23 07:00 SINGLE VIEW CHEST CLINICAL HISTORY: Respiratory failure. FINDINGS: An AP, portable, upright chest radiograph is compared to study dated 07/30/2023 and correlated with chest CT dated 07/25/2023. An endotracheal tube, an enteric tube, and a right internal jugular central venous catheter are unchanged in position. The cardiomediastinal silhouette is top normal for projection noting atherosclerotic calcification of the thoracic aorta. There is pulmonary vascular congestion. There are small pleural effusions with dependent consolidation. No pneumothorax is seen. The skeletal structures are osteopenic. The bony thorax is grossly intact. IMPRESSION: 1. Stable lines and tubes. 2. Pulmonary vascular congestion is similar to yesterday. 3. Small pleural effusions with dependent consolidation. This has also not appreciably changed. ACT 112: Negative or not required by law. Electronically signed by: Pravin Nguyen M.D. 07/31/2023 7:43 AM Chest X-Ray 08/01/23 07:00 XR chest 1V portable CLINICAL HISTORY: Resp failure TECHNIQUE: Single frontal radiograph of the chest was obtained. Comparison: Comparison is made to chest radiograph 07/31/2023 FINDINGS: Endotracheal tube terminates 3 cm from the clarissa. Cardiomegaly is noted. The aortic arch is calcified. Prominence and cephalization of the vasculature is seen. Small bilateral pleural effusions are seen. IMPRESSION: Small bilateral pleural effusions. Lines and tubes are stable. Stable mild pulmonary vascular congestion. ACT 112: Negative or not required by law. Electronically signed by: Jomar Palomo M.D. 08/01/2023 7:26 AM Discharge Instructions Given to Patient (Per Discharging Provider) Ms. Kelly, We are discharging you to a [facility] facility. We made changes and added new medications for you to take after discharge. Please take as prescribed. Please keep follow up with orthopedic surgery and podiatry after discharge. Orthopedic Surgery provided the following information for your hands: Postoperative instructions for her hands * She may do activity as tolerated, without restrictions. * She should continue occupational therapy for active and passive range of motion. No restrictions with therapy. * She should elevate bilateral upper extremities on Danilo pillow (big blue pillow) as much as possible. * She should follow-up with Dr. Lay at [facility] approximately 10 to 14 days from discharge Please keep close follow up with your primary care provider as well after discharge. Please do not hesitate to come back to the emergency room if your symptoms worsen or return. It was a pleasure taking care of you while you were here. Total Time Total Time Spent Total Time Spent (In Minutes): > 30 minutes
== END 2023-08-21 16:45 | DRG 853 ==
LOC: ED 18:47 → SUATTDRO 07-26 00:30 → 2S 07-26 00:30 → OR 07-26 01:23 → 1E 07-26 04:32 → 2S 07-27 17:59 → 1E 07-28 17:40 → 2E 08-10 21:25
DX: F17.210 Nicotine dependence, cigarettes, uncomplicated; F41.9 Anxiety disorder, unspecified; A41.9 Sepsis, unspecified organism; I11.0 Hypertensive heart disease with heart failure; E11.52 Type 2 diabetes mellitus with diabetic peripheral angiopathy with gangrene; E87.6 Hypokalemia; N13.6 Pyonephrosis; K92.1 Melena; E83.42 Hypomagnesemia; E87.0 Hyperosmolality and hypernatremia; B96.1 Klebsiella pneumoniae [K. pneumoniae] as the cause of diseases classified elsewhere; E87.20 Acidosis, unspecified; R47.01 Aphasia; J96.91 Respiratory failure, unspecified with hypoxia; F39 Unspecified mood [affective] disorder; I24.89 Other forms of acute ischemic heart disease; R29.701 NIHSS score 1; Z79.84 Long term (current) use of oral hypoglycemic drugs; I73.89 Other specified peripheral vascular diseases; Z86.19 Personal history of other infectious and parasitic diseases; D64.9 Anemia, unspecified; N17.9 Acute kidney failure, unspecified; G93.41 Metabolic encephalopathy; U07.1 COVID-19; D65 Disseminated intravascular coagulation [defibrination syndrome]; R65.21 Severe sepsis with septic shock; I50.33 Acute on chronic diastolic (congestive) heart failure; I48.19 Other persistent atrial fibrillation; I63.81 Other cerebral infarction due to occlusion or stenosis of small artery; I48.92 Unspecified atrial flutter

== ENCOUNTER 2023-08-25 12:09 | Inpatient (IN) ==
--- NOTE | 2023-08-25 13:20 | Emergency Department Note ---
Impression & Plan Bacteremia, Ureteral stent present, Ureterolithiasis, Dry gangrene, Complicated urinary tract infection ED Provider Note NAME: ALEXIS GALEANO AGE: 73 SEX: F ARRIVES VIA: Ambulance INFORMANT: Patient ED PROVIDER(S): Agustin Smith MD CHIEF COMPLAINT: Positive blood culture yesterday PLAN: Disposition: Admit MEDICAL DECISION MAKING: The patient is a pleasant 73-year-old woman with a complicated recent past medical history of recent admission to this facility from 07/26-08/21 for septic shock secondary to obstructive uropathy with complicated urinary tract infection with the patient had bacteremia positive for Klebsiella pneumonia status post cystoscopy and stent placement on 07/26 who now presents emergency department from her retirement facility at [facility] as she was called back to emergency department following her evaluation yesterday where she was diagnosed with urinary tract infection. The patient had a Harris catheter placed harris catheter replaced yesterday after it had been removed in the past couple of days for unclear reasons. 07/04 blood cultures drawn yesterday in the emergency department returned positive which had a positive PCR for strep. Given the patient has indwelling right internal jugular central line concern for line infection was raised and the patient's facility was called to have the patient return. The patient denies fevers, chills, cough, congestion, chest pain or shortness of breath. Of note, patient's recent hospitalization was additionally complicated for septic shock and need for by on vasopressor support which was further complicated by development of dry gangrene where orthopedic surgery had been consulted and recommendations were to allow for full demarcation of gangrene to inform surgical intervention. The patient also was treated with leech therapy per orthopedic and wound care recommendations. On my evaluation the patient is in no acute distress, afebrile stable vital signs. She appears clinically dry. She has dry gangrene of bilateral hands, feet as well as significantly improved necrosis of the tip of her nose. EKG without overt acute ischemia. CXR negative for acute cardiopulmonary process with stable small pleural effusions and likely atelectasis per my personal preliminary review/interpretation. WBC within normal limits with no neutrophilia or left shift. H/H is stable and similar to prior. Platelets within normal limits. Chemistry without metabolic acidosis. Potassium 3.2 and magnesium 1.6. LFTs unremarkable. High- sensitivity troponin 4.3, within normal limits. UA demonstrates WBCs without bacteria. Urine culture prior to antibiotics yesterday growing only Florina and no bacteria. Blood cultures were obtained with set drawn directly from right internal jugular. Otherwise use of right IJ central line deferred until further evaluation of possible line infection is determined. Antibiotics continued with IV ceftriaxone, which should be effective. [facility] with Dr. Saab [facility] hospitalist who will evaluate the patient for admission. We agreed to proceed with CT imaging to further characterize suspected bacteremia including CT of the neck given indwelling internal jugular central line, CT of the chest as well as CT abdomen pelvis. CT results described right jugular central venous catheter in good position with description of tiny focus of nonocclusive thrombus within the right internal jugular vein and abutting the catheter. There is no abscess or lymphadenopathy within the neck. CT of the chest further characterizes chest x-ray and describes likely atelectasis. CT abdomen pelvis demonstrates ureteral stent in good position with description of improved but continued enhancement of the right kidney suggestive of persistence of right-sided pyelonephritis. Additionally described as a 1.6 cm hypodense focus in the right kidney which may reflect scarring though a small renal abscess or infarct could appear similar. Urothelial thickening of the right collecting system and ureter persist. 4 mm stone within the right proximal to mid ureter is again present and has migrated a few centimeters. Further management per admitting team. Triage Nursing notes reviewed and agree them. Prior/external medical records reviewed Vital Signs: reviewed Differential diagnosis: Sepsis, UTI, pneumonia, metabolic, electrolyte abnormalities, cardiac sources, intracerebral event, toxicologic, neurologic, as well as other pathologies. ER treatment provided: See below. Diagnostics interpreted by me: ECG: Normal sinus rhythm, 81 bpm, no ectopy, no overt ST elevation or depression, QTc 425 78. Cardiac Monitoring: An order for continuous cardiac monitoring was placed and demonstrated Normal sinus rhythm, 81 bpm, no ectopy. Laboratory studies: See below Imaging studies: See below Consultation(s): Case was discussed with [facility], with Dr. Saab [facility] Hospitalist who will evaluate the patient for admission. HPI: The patient is a pleasant 73-year-old woman with a complicated recent past medical history of recent admission to this facility from 07/26-08/21 for septic shock secondary to obstructive uropathy with complicated urinary tract infection with the patient had bacteremia positive for Klebsiella pneumonia status post cystoscopy and stent placement on 07/26 who now presents emergency department from her retirement facility at [facility] as she was called back to emergency department following her evaluation yesterday where she was diagnosed with urinary tract infection. The patient had a Harris catheter placed harris catheter replaced yesterday after it had been removed in the past couple of days for unclear reasons. 07/04 blood cultures drawn yesterday in the emergency department returned positive which had a positive PCR for strep. Given the patient has indwelling right internal jugular central line concern for line infection was raised and the patient's facility was called to have the patient return. The patient denies fevers, chills, cough, congestion, chest pain or shortness of breath. ROS: See above HPI for pertinent positives & negatives. A total of 10 systems reviewed and were otherwise negative. VITALS:See Below PHYSICAL EXAMINATION: GENERAL: Awake, alert, in no distress HENT: Normocephalic, atraumatic. Improved necrosis of the tip of her nose. Oropharynx unremarkable. EYES: Normal conjunctiva. Sclera non-icteric. NECK: Supple. No nuchal rigidity. FROM. No JVD. RESPIRATORY: Clear to auscultation. CARDIAC: Regular rate, normal rhythm. 3/6 systolic murmur. Bilateral radial and anterior tibial pulses are palpable. ABDOMEN: Soft, non-distended. No tenderness to palpation. No rebound or guarding. No masses. RECTAL: Deferred. MUSCULOSKELETAL: Chest examination reveals no tenderness. The back is symmetrical on inspection without obvious abnormality. There is no CVA tenderness to palpation. No joint edema. EXTREMITIES: Dry gangreen of bilateral hands, feet NEURO: No focal sensory or motor deficits noted. SKIN: No jaundice noted. ED COURSE: Critical Care: I have personally spent greater than 35 minutes of critical care time in the direct management of this patient. This includes bedside care, interpretation of diagnostic studies, and testing, discussion with consultants, patient, and family members, and other required patient management activities. This 35 minutes is in excess of all separately billable procedures. Agustin Smith MD Past Med/Surg History Medical History Chronic CHF (congestive heart failure) Hx of hepatitis C s/p treatment Dyslipidemia Type 2 diabetes mellitus Acrocyanosis CVA (cerebral vascular accident) punctate right occipital lobe lacunar infarct - MRI 07/29/23 Dry gangrene Anemia Atrial fibrillation with rapid ventricular response Bacteremia Septic shock Acute kidney injury Complicated urinary tract infection Hydronephrosis due to obstruction of ureter Ureterolithiasis Fracture of left wrist with malunion Closed fracture of left distal radius and ulna Acute encephalopathy History of COVID-19 History of colon polyps Anxiety HTN (hypertension) Surgical History S/P wrist surgery History of colonoscopy History of hysterectomy History of tonsillectomy Family History Grandmother Family history of diabetes mellitus Family history of colon cancer Grandfather Family history of colon cancer Aunt Family history of colon cancer Uncle Family history of colon cancer Social History Smoking Status: Former smoker Tobacco Type: Cigarettes Second Hand Exposure: No; Do You Dip or Chew Tobacco: No; Hx Alcohol Use: No Hx Substance Use: No Preferred Language: British Communication Ability: Effective Section Laborer Required: No Beliefs That Will Affect Care: None Current Living Situation: [facility] Current Living Situation Comment: [facility] Other Information That Helps Us Care for You: No Feels Safe at Home: Yes Safety Concerns: Feels Safe At This Time Assistive Devices: Wheelchair Allergies Allergies Allergy/AdvReac Type Severity Reaction Status Date / Time No Known Allergies Allergy Verified 08/24/23 17:19 Home Meds Home Medications Medication Instructions Recorded Confirmed atorvastatin 40 mg tablet 40 mg PO HS 07/25/23 08/25/23 cyanocobalamin (vitamin B-12) 1,000 mcg PO QAM 07/25/23 08/25/23 1,000 mcg tablet metformin 1,000 mg tablet 1,000 mg PO BIDWMEAL 07/25/23 08/25/23 venlafaxine 150 mg 150 mg PO DAILY 07/25/23 08/25/23 capsule,extended release 24 hr acetaminophen 325 mg tablet 650 mg PO Q6H PRN FEVER >100/PAIN 08/24/23 08/25/23 (Tylenol) alendronate 70 mg tablet (Fosamax) 70 mg PO WK 08/24/23 08/25/23 calcium carbonate 500 mg-vitamin 1 tab PO DAILY 08/24/23 08/25/23 D3 5 mcg (200 unit) tablet (Calcium 500 + D) digoxin 125 mcg (0.125 mg) tablet 0.125 mg PO HS 08/24/23 08/25/23 (Digitek) food supplemt, lactose-reduced 1 ea PO TIDM 08/24/23 08/25/23 heparin lock flush (porcine) 10 0 unit IV DAILY 08/24/23 08/25/23 unit/mL intravenous solution lisinopril 10 mg tablet 20 mg PO DAILY 08/24/23 08/25/23 pantoprazole 40 mg tablet,delayed 40 mg PO BIDM 08/24/23 08/25/23 release povidone-iodine 10 % topical 1 applic topical TID 08/24/23 08/25/23 solution (Betadine) sodium chloride 0.9 % (flush) 10 ml IV DAILY 08/24/23 08/25/23 sodium chloride 0.9 % (flush) 10 ml IV TID 08/24/23 08/25/23 warfarin 3 mg tablet 3 mg PO HS 08/24/23 08/25/23 enoxaparin 80 mg/0.8 mL 80 mg subcut Q12H 08/25/23 08/25/23 subcutaneous syringe (Lovenox) Previous Rx's Medication Instructions Recorded diltiazem HCl 180 mg 180 mg PO QAM #30 caps 08/21/23 capsule,extended release 24 hr melatonin 3 mg tablet 3 mg PO HS PRN sleep #30 tabs 08/21/23 metoprolol succinate 25 mg 25 mg PO QAM #30 tabs 08/21/23 tablet,extended release 24 hr tamsulosin 0.4 mg capsule 0.4 mg PO HS #30 caps 08/21/23 cefdinir 300 mg capsule 300 mg PO Q12H 7 days #14 caps 08/24/23 Results & Data (ED) Vital Signs Vital Signs - 24 hr 08/25/23 12:15 08/25/23 12:22 08/25/23 12:40 Temperature 36.8 C Temperature Source Oral Pulse Rate 84 84 82 Pulse Rate from SpO2 Sensor 84 Respiratory Rate 16 21 Respiratory Effort / Characteristics Non-Labored Respiratory Depth Normal Blood Pressure 142/67 H Blood Pressure Mean 92 Pulse Oximetry 95 100 Oxygen Delivery Method Room Air Sepsis Recent Fever Within 48 Hours No Sepsis New/Unexplained Change in Mental Status N/A Sepsis Action Taken by Nursing No Action Required 08/25/23 14:00 Temperature Temperature Source Pulse Rate Pulse Rate from SpO2 Sensor Respiratory Rate Respiratory Effort / Characteristics Respiratory Depth Blood Pressure Blood Pressure Mean Pulse Oximetry 97 Oxygen Delivery Method Room Air Sepsis Recent Fever Within 48 Hours Sepsis New/Unexplained Change in Mental Status Sepsis Action Taken by Nursing Laboratory Data Attestation: I reviewed the patient's lab results. 08/25/23 13:53 08/25/23 13:53 Lab Results 08/25/23 Range/Units 13:53 WBC 5.95 (4.8-10.8) K/ul RBC 3.19 L (4.20-5.40) M/uL Hgb 9.3 L (12.0-16.0) g/dl Hct 29.2 L (37.0-47.0) % MCV 91.5 (80.0-100.0) fL MCH 29.2 (25.0-34.0) pg MCHC 31.8 L (32.0-36.0) g/dL RDW Std Deviation 51.8 H (36.4-46.3) fL RDW Coeff of Mary 15.9 H (11.5-14.5) % Plt Count 320 (130-400) K/uL MPV 8.9 L (9.4-12.4) fL Immature Gran % (Auto) 3.4 % Neut % (Auto) 59.9 % Lymph % (Auto) 23.4 % [place] % (Auto) 12.3 % Eos % (Auto) 0.5 % Baso % (Auto) 0.5 % Neut # (Auto) 3.57 (1.40-6.50) K/uL Lymph # (Auto) 1.39 (1.20-3.40) K/uL [place] # (Auto) 0.73 H (0.11-0.59) K/uL Eos # (Auto) 0.03 (0.00-0.50) K/uL Baso # (Auto) 0.03 (0.00-0.20) K/uL Immature Gran # (Auto) 0.20 (0.01-0.20) K/uL PT 12.1 H (9.0-12.0) Seconds INR 1.1 (0.9-1.1) Sodium 135 L (136-145) mmol/L Potassium 3.2 L (3.5-5.1) mmol/L Chloride 101 (98-107) mmol/L Carbon Dioxide 26 (21-32) mmol/L Anion Gap 8 (3-11) BUN 6 (6-23) mg/dl Creatinine 0.56 L (0.6-1.2) mg/dl Est Cr Clr Drug Dosing 92.1 ml/min Est GFR ( Amer) 107.2 ml/min Est GFR (Non-Af Amer) 92.5 ml/min BUN/Creatinine Ratio 10.7 (10-20) Glucose 89 (70-99(Fasting)) mg/dl Lactate 1.4 (0.4-2.0) mmol/L Calcium 8.7 (8.6-10.3) mg/dl Magnesium 1.6 L (1.7-2.4) mg/dl Total Bilirubin 0.3 (0.2-1.0) mg/dl Direct Bilirubin 0.0 (0-0.2) mg/dl AST 27 (13-39) U/L ALT 34 (7-52) U/L Alkaline Phosphatase 68 (34-104) U/L Troponin I High Sens 4.3 (0-14) pg/ml Total Protein 7.1 (6.0-8.3) gm/dl Albumin 3.1 L (3.4-5.0) gm/dl Procalcitonin 0.08 (0-0.5) ng/ml SARS-CoV-2, RNA, NAAT NEGATIVE (NEGATIVE) Administered Medications Atorvastatin Calcium (Atorvastatin 40 Mg Tab) 40 mg PO HS NILDA Stop: 09/24/23 20:59 Last Admin: 08/25/23 21:06 Dose: 40 mg Documented By: DAKOTA Digoxin (Digoxin 0.125 Mg Tab) 0.125 mg PO DAILY@1600 NILDA Stop: 09/24/23 17:59 Last Admin: 08/25/23 18:24 Dose: 0.125 mg Documented By: RAMONITA Enoxaparin Sodium (Enoxaparin 80 Mg/0.8 Ml Syr) 70 mg SQ Q12H NILDA Stop: 09/24/23 18:29 Last Admin: 02/25/24 18:25 Dose: 70 mg Documented By: RAMONITA Sodium Chloride (Nss) 1,000 mls @ 100 mls/hr IV .Q10H NILDA Stop: 08/26/23 09:44 Last Admin: 08/25/23 23:47 Dose: 100 mls/hr Documented By: Infusion: 08/25/23 23:14 Dose: Infused Documented By: Infusion: 08/25/23 18:15 Dose: 100 mls/hr Documented By: Admin: 08/25/23 14:14 Dose: 125 mls/hr Documented By: RADHA Vancomycin HCl 1,250 mg/ (Sodium Chloride) 275 mls @ 200 mls/hr IV Q12H NILDA Stop: 09/09/23 00:00 Last Admin: 08/25/23 23:46 Dose: 200 mls/hr Documented By: DAKOTA Fluconazole (Diflucan) 200 mg in 100 mls @ 100 mls/hr IV Q24H NILDA Stop: 09/04/23 19:59 Last Infusion: 08/25/23 22:05 Dose: Infused Documented By: Admin: 08/25/23 21:05 Dose: 100 mls/hr Documented By: DAKOTA Insulin Aspart (Insulin Aspart Per Unit Charge) 0 units SC ACHS NILDA Stop: 09/24/23 20:59 Last Admin: 08/25/23 21:08 Dose: Not Given Documented By: DAKOTA Tamsulosin HCl (Tamsulosin Hcl 0.4 Mg Cap) 0.4 mg PO HS NILDA Stop: 09/24/23 20:59 Last Admin: 08/25/23 21:06 Dose: 0.4 mg Documented By: DAKOTA Discontinued Medications Ceftriaxone Sodium (Rocephin) 2,000 mg in 50 mls @ 100 mls/hr IV NOW STA Stop: 08/25/23 14:15 Last Infusion: 08/25/23 15:14 Dose: Infused Documented By: Admin: 08/25/23 14:32 Dose: 100 mls/hr Documented By: MICKEY Vancomycin HCl 1,500 mg/ (Sodium Chloride) 530 mls @ 200 mls/hr IV NOW ONE Stop: 08/25/23 18:29 Last Infusion: 08/25/23 20:02 Dose: Infused Documented By: Admin: 08/25/23 16:33 Dose: 200 mls/hr Documented By: RAUDEL Magnesium Sulfate/Dextrose (Magnesium Sulfate / D5w) 1 gm in 100 mls @ 50 mls/hr IV ONE ONE Stop: 08/25/23 19:24 Last Infusion: 08/25/23 20:01 Dose: Infused Documented By: Admin: 08/25/23 17:57 Dose: 50 mls/hr Documented By: RAMONITA Ioversol (Optiray 320 500ml) 88 ml IV ONCE ONE Stop: 08/25/23 15:08 Last Admin: 08/25/23 15:07 Dose: 88 ml Documented By: EMELIA Potassium Chloride (Potassium Chloride Crtab 20 Meq Tabcr) 40 meq PO NOW STA Stop: 08/25/23 17:26 Last Admin: 08/25/23 17:58 Dose: 40 meq Documented By: RAMONITA Imaging Data Radiologist's Impression: Chest X-Ray 08/25/23 13:39 XR chest 1V portable HISTORY: Sepsis COMPARISON: Chest 08/24/2023. FINDINGS: The heart is normal in size. A few bibasilar linear densities favor subsegmental atelectasis are scarring. This remains unchanged. No new focal lung consolidations to suggest a pneumonia. No evidence for pulmonary edema. No acute fractures. A right jugular central venous catheter terminates at the proximal SVC. Small bilateral pleural effusions persist. IMPRESSION: Small bilateral pleural effusions and bibasilar linear densities again noted. This favors subsegmental atelectasis. ACT 112: Negative or not required by law. Electronically signed by: Moshe Lofton M.D. 08/25/2023 2:04 PM Chest X-Ray 08/25/23 13:39 XR chest 1V portable HISTORY: Sepsis COMPARISON: Chest 08/24/2023. FINDINGS: The heart is normal in size. A few bibasilar linear densities favor subsegmental atelectasis are scarring. This remains unchanged. No new focal lung consolidations to suggest a pneumonia. No evidence for pulmonary edema. No acute fractures. A right jugular central venous catheter terminates at the proximal SVC. Small bilateral pleural effusions persist. IMPRESSION: Small bilateral pleural effusions and bibasilar linear densities again noted. This favors subsegmental atelectasis. ACT 112: Negative or not required by law. Electronically signed by: Moshe Lofton M.D. 08/25/2023 2:04 PM Chest X-Ray 08/25/23 13:39 XR chest 1V portable HISTORY: Sepsis COMPARISON: Chest 08/24/2023. FINDINGS: The heart is normal in size. A few bibasilar linear densities favor subsegmental atelectasis are scarring. This remains unchanged. No new focal lung consolidations to suggest a pneumonia. No evidence for pulmonary edema. No acute fractures. A right jugular central venous catheter terminates at the proximal SVC. Small bilateral pleural effusions persist. IMPRESSION: Small bilateral pleural effusions and bibasilar linear densities again noted. This favors subsegmental atelectasis. ACT 112: Negative or not required by law. Electronically signed by: Moshe Lofton M.D. 08/25/2023 2:04 PM Prescription Drug Monitoring Prescription Drug Findings: CT soft tissue neck w con CT DOSE: CLINICAL HISTORY: baceteremia, RIJ, h/o ureteral stent TECHNIQUE: Multiaxial CT images of the neck were performed following the intravenous administration of contrast. Sagittal and coronal reformations were performed at the workstation by the radiologist. A dose lowering technique was utilized adhering to the principles of ALARA. COMPARISON STUDY: Neck CTA 07/25/2023. FINDINGS: The visualized brain parenchyma and orbits are unremarkable. The pterygopalatine fossa and paratracheal fat spaces are maintained. The major mucosal airways services are intact. Normal thyroid gland. No lymphadenopathy or abscess identified within the neck. Prevertebral soft tissues and the epiglottis are normal in thickness. The parotid and submandibular glands are symmetric. No pneumothorax. No acute fractures identified. The paranasal sinuses and mastoid air cells are clear. There is right jugular catheter noted. There is a tiny focus of thrombus adjacent to the right jugular catheter within the right internal jugular vein on image 139. The remaining right internal jugular vein is patent.. Mild right and moderate left proximal internal carotid artery narrowing due to the calcified plaque. This remains unchanged. The left internal jugular vein is also patent. IMPRESSION: 1. A right jugular central venous catheter appears in good position. There is a tiny focus of nonocclusive thrombus within the right internal jugular vein abutting the catheter. 2. No abscess or lymphadenopathy within the neck. --- CT WITH CONTRAST, ABDOMEN AND PELVIS CT WITH INTRAVENOUS CONTRAST CT DOSE: 1948.89 mGy.cm HISTORY: bacteremia, RIJ, h/o ureteral stent TECHNIQUE: Multiaxial CT images of the chest, abdomen, and pelvis were performed following the intravenous administration of contrast. A dose lowering technique was utilized adhering to the principles of ALARA. COMPARISON: Chest CTA 07/25/2023. Abdomen and pelvis CT 07/29/2023. FINDINGS: Chest CT:. A right jugular central venous catheter which terminates at the SVC. Tiny focus of nonocclusive thrombus again noted abutting the catheter within the right internal jugular vein on image 36. The right brachiocephalic vein and SVC are patent. Calcified plaque within the normal caliber thoracic aorta. Moderate coronary calcifications again noted. The heart is mildly enlarged. No pleural or pericardial effusions. The central pulmonary arteries are patent. No mediastinal or hilar lymphadenopathy. Stable 6 mm nodule/cyst within the right breast. Normal esophagus. No acute fractures within the chest. No pneumothorax. The central airways are patent. Stable 2 mm nodule within the left lung apex on image 55. No evidence for pulmonary edema. A few bibasilar linear densities favor subsegmental atelectasis. A pneumonia could also have a similar appearance but is considered less likely. Abdomen/pelvis CT: No pneumoperitoneum. No pneumatosis. No acute fractures. The main portal vein is patent. Calcified plaque within the normal caliber abdominal aorta. There is mild narrowing within the proximal common iliac arteries due to the calcified plaque. There is a 2.2 cm enhancing focus within the left adductor muscle on image 404. This is only partially imaged on this study. No hepatic masses. A 5 mm hypodense lesion within the anterior spleen is too small to characterize but likely benign. Stable nodular thickening of the adrenal glands. The pancreas is unremarkable. There are 2 large stones again noted within the gallbladder neck with the largest measuring 14 mm. No significant gallbladder wall thickening. Normal caliber common bile duct. The main portal vein is patent. No retroperitoneal lymphadenopathy. A few bilateral renal hypodense lesions remain stable. The majority these favor cysts. 16 mm hypodense lesion within the right kidney on image 159. This could represent an area of pyelonephritic scarring. A small renal abscess or renal infarct are also considered in the differential diagnosis. Mild heterogeneous enhancement within the right kidney has improved compared to prior studies. This favors a persistent right-sided pyelonephritis. Right perinephric fat stranding is also improved. Left-sided nephrolithiasis. A right ureteral stent appears in good position. There is a 4 mm stone again seen within the proximal ureter adjacent to the stent on image 227. This has migrated a few centimeters distally compared to the prior study. Urothelial thickening within the right renal collecting system and right ureter is again noted. Mild right hydronephrosis has progressed in the interval. Bladder is decompressed by Harris catheter which appears in good position. Gas within the bladder lumen is likely due to the catheterization. Mild bladder wall thickening persists. Prior hysterectomy. Colonic diverticulosis. No evidence for acute diverticulitis. Fluid-filled large and small bowel. This may represent a gastroenteritis/diarrheal illness. Small periumbilical fat-containing hernia is again noted. No bowel wall thickening or obstruction. Normal appendix. IMPRESSION: 1. Tiny focus of nonocclusive thrombus again noted abutting the catheter within the right internal jugular vein. 2. A few bibasilar linear densities favor subsegmental atelectasis. A pneumonia could also have a similar appearance but is considered less likely. 3. Stable 6 mm nodule/cyst within the right breast. 4. There is a 2.2 cm enhancing lesion within the left adductor muscle. This is indeterminate but may represent a hemangioma. Follow-up nonemergent dedicated MRI of the left thigh is recommended for further evaluation. 5. Cholelithiasis. 6. Heterogeneous enhancement within the right kidney and right perinephric enhancement has improved. This suggests a persistent right-sided pyelonephritis. 7. A 1.6 cm hypodense focus within the right kidney which is new from the 07/25/[address] Therefore, this could represent an area of scarring from the pyelonephritis. A small renal abscess or renal infarct could also have a similar appearance. Therefore, one week abdomen CT follow-up recommended to ensure resolution. 8. Urothelial thickening within the right renal collecting system and right ureter persists. 9. A right ureteral stent is in good position. 10. A 4 mm stone within the proximal to mid right ureter is again seen adjacent to the stent. This has migrated a few centimeters distal compared to the prior study. 11. Fluid-filled large and small bowel. This could be due to a gastroenteritis/diarrheal illness. 12. No bowel wall thickening or obstruction. 13. Additional findings as described above. Discharge Plan Visit Data Chief Complaint: Urinary Symptoms Stated Complaint: uti ED Provider: Agustin Smith Discharge Problem: Bacteremia, Ureteral stent present, Ureterolithiasis, Dry gangrene, Complicated urinary tract infection Patient Disposition: Admitted As Inpatient Discharge Instructions Interventions: ED Discharge Assessment Last Done: 08/25/23 16:51
--- NOTE | 2023-08-25 14:05 | XRay Report ---
XR chest 1V portable HISTORY: Sepsis COMPARISON: Chest 08/24/2023. FINDINGS: The heart is normal in size. A few bibasilar linear densities favor subsegmental atelectasi s are scarring. This remains unchanged. No new focal lung consolidations to suggest a pneumonia. No e vidence for pulmonary edema. No acute fractures. A right jugular central venous catheter terminates a t the proximal SVC. Small bilateral pleural effusions persist. IMPRESSION: Small bilateral pleural effusions and bibasilar linear densities again noted. This favors subsegmenta l atelectasis. ACT 112: Negative or not required by law. Electronically signed by: Moshe Lofton M.D. 08/25/2023 2:04 PM
[2023-08-25] MEDS: SODIUM CHLORIDE 0.9% 1,000 ML IV SCH (14:14)
[2023-08-25 14:19] LABS: Basophils # (auto) 0.03 K/uL (0.00-0.20); Basophils % (auto) 0.5 %; Eosinophils # (auto) 0.03 K/uL (0.00-0.50); Eosinophils % (auto) 0.5 %; Hematocrit (blood only) 29.2 % (37.0-47.0); Hemoglobin 9.3 g/dl (12.0-16.0); Immature Granulocytes % (auto) 3.4 %; Lymphocytes # (auto) 1.39 K/uL (1.20-3.40); Lymphocytes % (auto) 23.4 %; Mean Corpuscular Hemoglobin 29.2 pg (25.0-34.0); Mean Corpuscular Hgb Conc 31.8 g/dL (32.0-36.0); Mean Corpuscular Volume 91.5 fL (80.0-100.0); Mean Platelet Volume 8.9 fL (9.4-12.4); Monocytes # (auto) 0.73 K/uL (0.11-0.59); Monocytes % (auto) 12.3 %; Neutrophils # (auto) 3.57 K/uL (1.40-6.50); Neutrophils % (auto) 59.9 %; Platelet Count 320 K/uL (130-400); RDW Coefficient of Variation 15.9 % (11.5-14.5); RDW Standard Deviation 51.8 fL (36.4-46.3); Red Blood Count 3.19 M/uL (4.20-5.40); White Blood Count 5.95 K/ul (4.8-10.8)
[2023-08-25] MEDS: cefTRIAXone SODIUM 2,000 MG/50 ML BAG IV STA (14:32)
[2023-08-25 14:35] LABS: Albumin Level 3.1 gm/dl (3.4-5.0); BUN Creatinine Ratio 10.7 (10-20); Bilirubin,Total 0.3 mg/dl (0.2-1.0); Calcium 8.7 mg/dl (8.6-10.3); Creatinine Clr Calc Pharmacy 92.1 ml/min; Est GFR (African American) 107.2 ml/min; Est GFR (Non-African American) 92.5 ml/min; Magnesium 1.6 mg/dl (1.7-2.4); Potassium 3.2 mmol/L (3.5-5.1); Total Protein 7.1 gm/dl (6.0-8.3)
[2023-08-25 14:40] LABS: Troponin I High Sensitivity 4.3 pg/ml (0-14)
[2023-08-25 14:44] LABS: INR 1.1 (0.9-1.1); Prothrombin Time 12.1 Seconds (9.0-12.0)
[2023-08-25 15:04] LABS: Appearance Urine Cloudy (Clear); Bacteria Urine Automated Negative (Negative); Bilirubin Urine Negative (Negative); Blood Urine 2+ (Negative); Color Urine Yellow; Epithelial Cell Urine Auto 0-5 /lpf (0-5); Glucose Urine UA Negative (Negative); Ketones Urine Negative (Negative); Leukocyte Esterase Urine 3+ (Negative); Nitrite Urine Negative (Negative); Protein Urine Negative (Negative); Specific Gravity Urine 1.013 (1.000-1.030); Urobilinogen Urine Negative (Negative); WBC Urine Automated >30 /hpf (0-5)
[2023-08-25] MEDS: OPTIRAY 320 500ml IV ONE (15:07)
--- NOTE | 2023-08-25 15:17 | History & Physical Report ---
Date of Service August 25, 2023 Assessment & Plan (1) Bacteremia due to Gram-positive bacteria: Plan: This is a 73 y/o female with a complicated medical history including recent admission outlined below, DM2, HTN, prior HCV s/p treatment, and mood disorder presents from [facility] with positive blood culture and possible line infection. Pt was seen in the ED yesterday for report of increased confusion, episode of emesis with workup consistent with UTI so pt given a dose of Rocephin and discharged on cefdinir. Blood cultures done as part of the w/u, today one out of four came back positive for GPC in chains with biofire positive for strep so pt was brought back to the ED for further evaluation and management. Pt noted to still have the right IJ line for access. ED was able to get a peripheral IV on the LUE. She is feeling better on the antibiotics than when she was brought into the ED yesterday. - Admit to PCU - CTs of the neck, chest, abd/pel are pending - Consult urology for additional recommendations on f/u, ureteral stent - will make pt NPO after midnight in care any intervention needed tomorrow - Starting empiric antibiotics with Rocephin and Vancomycin - consult ID for additional recommendations, repeated blood cultures today, which are pending - Check ECHO due to probable strep bacteremia - eval for vegetation/endocarditis (2) Acute UTI: Plan: Urine culture pending - see plan for #1 (3) Hypokalemia: Plan: Oral repletion ordered Recheck in the AM (4) Hypomagnesemia: Plan: IV Mag Sulfate 1 g ordered Recheck in the AM (5) Ureteral stent present: Plan: Urology input pending (6) Type 2 diabetes mellitus: Plan: Holding Metformin Insulin sliding scale Diabetic diet (7) Dry gangrene: Plan: Seen by ortho and podiatry during last admission, underwent leech therapy. Scheduled to f/u with them as an outpatient Continue wound care (8) Dyslipidemia: Plan: Chronic, stable Continue statin (9) HTN (hypertension): Plan: Chronic, stable Continue outpatient regimen (10) Anemia: Plan: Ongoing issue from recent admission but stable to improving (11) Atrial fibrillation with rapid ventricular response: Plan: During recent admission - currently in normal sinus rhythm Continue metoprolol, diltiazem, digoxin On Lovenox to warfarin bridge Plan Pt seen and reviewed with collaborating physician, Dr. Saab. Plan of care discussed and as outlined above. More than 60 minutes spent on review of records from prior admission, discussion of case with discharging provider and with ED provider. Code status: full code DVT Prophylaxis: on Lovenox to warfarin bridge (increased dose of warfarin from 3 mg daily to 5 mg daily due to INR of 1.1) Ashly Ward PA-C History of Present Illness Chief Complaint: Positive blood culture Primary Care Provider: Sulema Coughlin MD This is a 73 y/o female with a complicated medical history including recent admission outlined below, DM2, HTN, prior HCV s/p treatment, and mood disorder presents from [facility] with positive blood culture and possible line infection. Pt was seen in the ED yesterday for report of increased confusion, episode of emesis. UA consistent with possible UTI so pt given a dose of Rajinder ephin and discharged on cefdinir. Blood cultures were drawn and pending at the time of discharge back to [facility]. Today, one of four blood cultures came back positive for GPC in chains, blood biofire + for Strep spp. Pt still has an IJ in place from last admission as there were significant difficulties with obtaining peripheral access, including a failed attempt at PICC placement, so there was concern for a line infection. ED called [facility] to recommend reevaluation and possible admission. Upon review of [facility] records, it appears Joshi was discontinued on 08/23 for unclear reasons, replaced in the ED yesterday. Currently, pt reports she is feeling okay, no specific complaints. Pt with complicated admission to [facility] from 07/25/23-08/21/23. Presented to the ED on 07/25/23 with confusion and right flank pain. Found to have severe sepsis with obstructive uropathy and complicated UTI. Initial blood and urine cultures grew Klebsiella. Pt underwent cystoscopy with placement of right ureteral stent early on 07/26. Pt developed septic shock and was transferred to the ICU and started on pressors, treated with cefepime then ceftriaxone for 14 days, then transition to ciprofloxacin and completed course on 08/20. Developed acrocyanosis and nasal tip cyanosis overnight 07/26-07/27, dropping platelet counts --> concern for DIC. Off pressors and transferred out of ICU 07/27. On 07/28 became progressively obtunded, transferred back to ICU and intubated that evening. Antibiotic coverage broadened due to concern for meningitis/encephalitis. MRI done and showed small right occipital lobe lacunar infarct. On 07/31, pt went into new-onset atrial fibrillation with RVR - started on beta-armando and digoxin. Extubated on 08/01, heparin gtt restarted. Heparin gtt changed to Lovenox. Developed acute on chronic diastolic CHF with pulmonary edema - diuresed with furosemide 40 mg IV BID but this was subsequently discontinued. Developed new-onset anemia with probable UGIB - saw GI, transfused two units, PPI BID. Ortho consulted for possible debridement of necrosis from prior cyanosis. Reconsulted on 08/08 - recommended podiatry for LE who saw pt 08/10. Pt started on leech therapy 08/09- 08/13 per ortho and wound care recs. Upon completion of leech therapy, pt started on warfarin. Issues with vascular access during admission - had a right IJ line placed in the ICU, which was continued due to inability to place a PICC line due to poor vascular access. Pt started PT/OT. Accepted at [facility] and discharged there on 08/21. Allergies Allergy/AdvReac Type Severity Reaction Status Date / Time No Known Allergies Allergy Verified 08/24/23 17:19 Home Medications Medication Instructions Recorded Confirmed Type atorvastatin 40 mg tablet 40 mg PO HS 07/25/23 08/25/23 History cyanocobalamin (vitamin B-12) 1,000 mcg PO QAM 07/25/23 08/25/23 History 1,000 mcg tablet metformin 1,000 mg tablet 1,000 mg PO BIDWMEAL 07/25/23 08/25/23 History venlafaxine 150 mg 150 mg PO DAILY 07/25/23 08/25/23 History capsule,extended release 24 hr diltiazem HCl 180 mg 180 mg PO QAM #30 caps 08/21/23 08/25/23 Rx capsule,extended release 24 hr melatonin 3 mg tablet 3 mg PO HS PRN sleep #30 tabs 08/21/23 08/25/23 Rx metoprolol succinate 25 mg 25 mg PO QAM #30 tabs 08/21/23 08/25/23 Rx tablet,extended release 24 hr tamsulosin 0.4 mg capsule 0.4 mg PO HS #30 caps 08/21/23 08/25/23 Rx acetaminophen 325 mg tablet 650 mg PO Q6H PRN FEVER >100/PAIN 08/24/23 08/25/23 History (Tylenol) alendronate 70 mg tablet (Fosamax) 70 mg PO WK 08/24/23 08/25/23 History calcium carbonate 500 mg-vitamin 1 tab PO DAILY 08/24/23 08/25/23 History D3 5 mcg (200 unit) tablet (Calcium 500 + D) cefdinir 300 mg capsule 300 mg PO Q12H 7 days #14 caps 08/24/23 08/25/23 Rx digoxin 125 mcg (0.125 mg) tablet 0.125 mg PO HS 08/24/23 08/25/23 History (Digitek) food supplemt, lactose-reduced 1 ea PO TIDM 08/24/23 08/25/23 History heparin lock flush (porcine) 10 0 unit IV DAILY 08/24/23 08/25/23 History unit/mL intravenous solution lisinopril 10 mg tablet 20 mg PO DAILY 08/24/23 08/25/23 History pantoprazole 40 mg tablet,delayed 40 mg PO BIDM 08/24/23 08/25/23 History release povidone-iodine 10 % topical 1 applic topical TID 08/24/23 08/25/23 History solution (Betadine) sodium chloride 0.9 % (flush) 10 ml IV DAILY 08/24/23 08/25/23 History sodium chloride 0.9 % (flush) 10 ml IV TID 08/24/23 08/25/23 History warfarin 3 mg tablet 3 mg PO HS 08/24/23 08/25/23 History enoxaparin 80 mg/0.8 mL 80 mg subcut Q12H 08/25/23 08/25/23 History subcutaneous syringe (Lovenox) Past Med/Surg History Medical History Chronic CHF (congestive heart failure) Hx of hepatitis C s/p treatment Dyslipidemia Type 2 diabetes mellitus Acrocyanosis CVA (cerebral vascular accident) punctate right occipital lobe lacunar infarct - MRI 07/29/23 Dry gangrene Anemia Atrial fibrillation with rapid ventricular response Bacteremia Septic shock Acute kidney injury Complicated urinary tract infection Hydronephrosis due to obstruction of ureter Ureterolithiasis Fracture of left wrist with malunion Closed fracture of left distal radius and ulna Acute encephalopathy History of COVID-19 History of colon polyps Anxiety HTN (hypertension) Surgical History S/P wrist surgery History of colonoscopy History of hysterectomy History of tonsillectomy Family History Grandmother Family history of diabetes mellitus Family history of colon cancer Grandfather Family history of colon cancer Aunt Family history of colon cancer Uncle Family history of colon cancer Social History Smoking Status: Former smoker Tobacco Type: Cigarettes Second Hand Exposure: No; Do You Dip or Chew Tobacco: No; Hx Alcohol Use: No Hx Substance Use: No Preferred Language: Kosovan Communication Ability: Effective [employer] Superintendent Required: No Beliefs That Will Affect Care: None Current Living Situation: Halfway Current Living Situation Comment: [facility] Other Information That Helps Us Care for You: No Feels Safe at Home: Yes Safety Concerns: Feels Safe At This Time Assistive Devices: Wheelchair Review of Systems 2 Review of Systems: All systems reviewed & are unremarkable except as noted in HPI & below Constitutional: + chills and + fatigue; no fever and no anorexia Ear, Nose, Mouth, Throat: no nasal congestion and no sore throat Respiratory: no cough and no dyspnea Cardiovascular: no chest pain and no palpitations Gastrointestinal: + nausea (yesterday) and + vomiting (x1 yesterday); no diarrhea/loose stools Genitourinary: Joshi replaced yesterday Neurologic: + generalized weakness and + confusion ( yesterday, better today) Physical Exam Physical Exam: General: awake, alert, NAD HEENT: improved necrosis on tip of nose, slightly dry oral mucosa Neck: trachea midline, +right IJ line in place - no significant erythema or warmth, no purulent drainage from the area Heart: RRR Lungs: CTA bilaterally Abdomen: soft, NT, +BS Extremities: necrosis noted bilateral hands and feet Psych: appropriate mood and affect, oriented x 3 Results & Data Results & Data Vital Signs (Past 12 Hours) Vital Signs Temp Pulse Resp BP Pulse Ox O2 Del Method 08/25/23 14:30 80 16 106/55 L 97 08/25/23 14:21 80 15 116/54 L 95 08/25/23 14:00 97 Room Air 08/25/23 12:40 82 21 100 08/25/23 12:22 84 08/25/23 12:15 36.8 C 84 16 142/67 H 95 Room Air Laboratory Results Laboratory Results - last 24 hr 08/25/23 08/25/23 08/25/23 13:53 14:39 16:11 WBC 5.95 RBC 3.19 L Hgb 9.3 L Hct 29.2 L MCV 91.5 MCH 29.2 MCHC 31.8 L RDW Std Deviation 51.8 H RDW Coeff of Mary 15.9 H Plt Count 320 MPV 8.9 L Immature Gran % (Auto) 3.4 Neut % (Auto) 59.9 Lymph % (Auto) 23.4 Brewster % (Auto) 12.3 Eos % (Auto) 0.5 Baso % (Auto) 0.5 Neut # (Auto) 3.57 Lymph # (Auto) 1.39 Brewster # (Auto) 0.73 H Eos # (Auto) 0.03 Baso # (Auto) 0.03 Immature Gran # (Auto) 0.20 PT 12.1 H INR 1.1 Sodium 135 L Potassium 3.2 L Chloride 101 Carbon Dioxide 26 Anion Gap 8 BUN 6 Creatinine 0.56 L Est Cr Clr Drug Dosing 92.1 Est GFR ( Amer) 107.2 Est GFR (Non-Af Amer) 92.5 BUN/Creatinine Ratio 10.7 Glucose 89 Lactate 1.4 Calcium 8.7 Magnesium 1.6 L Total Bilirubin 0.3 Direct Bilirubin 0.0 AST 27 ALT 34 Alkaline Phosphatase 68 Troponin I High Sens 4.3 Total Protein 7.1 Albumin 3.1 L Procalcitonin 0.08 Urine Color Yellow Urine Appearance Cloudy A Urine pH 6.0 Ur Specific [place] 1.013 Urine Protein Negative Urine Glucose (UA) Negative Urine Ketones Negative Urine Blood 2+ H Urine Nitrite Negative Urine Bilirubin Negative Urine Urobilinogen Negative Ur Leukocyte Esterase 3+ H Urine WBC (Auto) >30 H Urine RBC (Auto) 5-10 H U Hyaline Cast (Auto) 1-5 U Epithel Cells (Auto) 0-5 Urine Bacteria (Auto) Negative Urine Yeast Budding w/ Hyphae A Nasal Screen MRSA (PCR) Pending SARS-CoV-2, RNA, NAAT NEGATIVE Diagnostic Findings Chest X-Ray 08/25/23 13:39 XR chest 1V portable HISTORY: Sepsis COMPARISON: Chest 08/24/2023. FINDINGS: The heart is normal in size. A few bibasilar linear densities favor subsegmental atelectasis are scarring. This remains unchanged. No new focal lung consolidations to suggest a pneumonia. No evidence for pulmonary edema. No acute fractures. A right jugular central venous catheter terminates at the proximal SVC. Small bilateral pleural effusions persist. IMPRESSION: Small bilateral pleural effusions and bibasilar linear densities again noted. This favors subsegmental atelectasis. ACT 112: Negative or not required by law. Electronically signed by: Moshe Lofton M.D. 08/25/2023 2:04 PM Medications Administered Sodium Chloride (Nss) 1,000 mls @ 125 mls/hr IV .Q8H NILDA Stop: 09/24/23 13:44 Last Admin: 08/25/23 14:14 Dose: 125 mls/hr Documented By: RADHA Discontinued Medications Ceftriaxone Sodium (Rocephin) 2,000 mg in 50 mls @ 100 mls/hr IV NOW STA Stop: 08/25/23 14:15 Last Infusion: 08/25/23 15:14 Dose: Infused Documented By: Admin: 08/25/23 14:32 Dose: 100 mls/hr [place]ed [place]: [facility] [place]oversol (Optiray 320 500ml) 88 ml IV ONCE ONE Stop: 08/25/23 15:08 Last Admin: 08/25/23 15:07 Dose: 88 ml Documented By: EMELIA Supervising Physician Co-Signing Physician Notes Care coordinated with Sandy Ward PA-C. Agree with above note. Patient seen and examined. Please refer to her notes for full details. Vital signs reviewed. Physical exam: General exam: Alert and oriented. Not in acute distress. CVS: S1 and S2 heard, regular rate and rhythm, no murmurs.Right IJ line seen. RS: Clear to auscultation, no wheezing or crackles. ABD: Soft, bowel sounds present, nontender, no distention. TUB TENDER: alert and oriented. no facial palsy, no dysarthria, obeys commands EXT: gangrenous extremities seen Labs: Reviewed. Assessment and plan:73F with complex recent hospitalization as mentioned in H and P came to [facility] yesterday with some confusion and emesis and found to have UTI , given Rocephin and discharged on po antibiotic was brought in today as one of the blood cultures growing GPC, strep on biofire. Patient currently resting comfortably. Denies headache, No chest pain or sob. No nausea. No abdominal pain. Afebrile. Says the blackish discoloration of her extremities are same. Bacteremia GPC will d/c right IJ central line and right arm ultrasound guided line placed last admit and send for cultures currently on Rocephin and iv vanco will follow final cultures and echo for any vegetations consulted ID on fluids close monitor. Candiduria empirically started on iv Diflucan await ID inputs Non occlusive thrombus in right IJ patient already on anticoagulation. Will d/c the central line Dry Gangrene needs followup with ortho Ureteral stent appreciate urology inputs Other diagnosis and plan of care as per Sandy Ward PA-C. . Akash olmedo MD. 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
[2023-08-25] MEDS ORDERED: VANCOMYCIN CONSULT ACTIVE PRN (15:51)
[2023-08-25] MEDS: VANCOMYCIN HCL 1,500 MG in SODIUM CHLORIDE 0.9% 500 ML IV ONE (16:33)
--- NOTE | 2023-08-25 16:58 | Pharmacy Report ---
Pharmacy PK ABX Note - Date of Service August 25, 2023 - Assessment and Plan Assessment 73 year old F receiving vancomycin and ceftriaxone for treatment of bacteremia. 08/24 prelim blood cultures (+) GPC in chains in 07/04, blood biofire (+) Strep spp. Pt called back into the ED for re-eval/tx given possible line associated infection. Renal function stable. Day # 1 of antimicrobial therapy. Plan Vancomycin * Loading dose: 1500 mg IV x 1 * Maintenance dose: 1250 mg IV every 12 hours * Regimen is predicted to achieve target AUC/FLOYD of 400-600 mg/L.hr * Will obtain a level in ~ 48h if vancomycin continued Pharmacy will continue to follow and will adjust dose/frequency as necessary. Thank you. Pharmacy has transitioned to AUC monitoring for vancomycin. AUC/FLOYD is the preferred PK/PD target and is associated with decreased risk of nephrotoxicity compared to traditional trough targets.
[2023-08-25] MEDS ORDERED: MELATONIN 3 MG TAB PO PRN (17:28)
[2023-08-25] MEDS ORDERED: DEXTROSE 50% 50 ML SYRINGE IV PRN (17:29)
[2023-08-25] MEDS ORDERED: GLUCOSE 10 TAB/TUBE PO PRN (17:29)
[2023-08-25] MEDS ORDERED: GLUCAGON FOR INJ 1 MG VIAL SQ PRN (17:29)
[2023-08-25] MEDS ORDERED: GLUCOSE 40% GEL 15 GM TUBE PO PRN (17:29)
[2023-08-25] MEDS ORDERED: CARBOHYDRATES FOR HYPOGLYCEMIA PO PRN (17:29)
[2023-08-25] MEDS ORDERED: ENOXAPARIN 80 MG/0.8 ML SYR SQ SCH (17:30)
--- NOTE | 2023-08-25 17:32 | CT Scan Report ---
CHEST CT WITH CONTRAST, ABDOMEN AND PELVIS CT WITH INTRAVENOUS CONTRAST CT DOSE: 1948.89 mGy.cm HISTORY: bacteremia, RIJ, h/o ureteral stent TECHNIQUE: Multiaxial CT images of the chest, abdomen, and pelvis were performed following the intrav enous administration of contrast. A dose lowering technique was utilized adhering to the principles of ALARA. COMPARISON: Chest CTA 07/25/2023. Abdomen and pelvis CT 07/29/2023. FINDINGS: Chest CT:. A right jugular central venous catheter which terminates at the SVC. Tiny focus of nonoccl usive thrombus again noted abutting the catheter within the right internal jugular vein on image 36. The right brachiocephalic vein and SVC are patent. Calcified plaque within the normal caliber thoraci c aorta. Moderate coronary calcifications again noted. The heart is mildly enlarged. No pleural or pe ricardial effusions. The central pulmonary arteries are patent. No mediastinal or hilar lymphadenopat hy. Stable 6 mm nodule/cyst within the right breast. Normal esophagus. No acute fractures within the chest. No pneumothorax. The central airways are patent. Stable 2 mm nodule within the left lung apex on image 55. No evidence for pulmonary edema. A few bibasilar linear densities favor subsegmental ate lectasis. A pneumonia could also have a similar appearance but is considered less likely. Abdomen/pelvis CT: No pneumoperitoneum. No pneumatosis. No acute fractures. The main portal vein is p atent. Calcified plaque within the normal caliber abdominal aorta. There is mild narrowing within the proximal common iliac arteries due to the calcified plaque. There is a 2.2 cm enhancing focus within the left adductor muscle on image 404. This is only partially imaged on this study. No hepatic junior s. A 5 mm hypodense lesion within the anterior spleen is too small to characterize but likely benign. Stable nodular thickening of the adrenal glands. The pancreas is unremarkable. There are 2 large [address] ruth again noted within the gallbladder neck with the largest measuring 14 mm. No significant gallblad casie wall thickening. Normal caliber common bile duct. The main portal vein is patent. No retroperiton eal lymphadenopathy. A few bilateral renal hypodense lesions remain stable. The majority these favor cysts. 16 mm hypodense lesion within the right kidney on image 159. This could represent an area of p yelonephritic scarring. A small renal abscess or renal infarct are also considered in the differentia l diagnosis. Mild heterogeneous enhancement within the right kidney has improved compared to prior st udies. This favors a persistent right-sided pyelonephritis. Right perinephric fat stranding is also i mproved. Left-sided nephrolithiasis. A right ureteral stent appears in good position. There is a 4 mm stone again seen within the proximal ureter adjacent to the stent on image 227. This has migrated a few centimeters distally compared to the prior study. Urothelial thickening within the right renal co llecting system and right ureter is again noted. Mild right hydronephrosis has progressed in the inte rval. Bladder is decompressed by Joshi catheter which appears in good position. Gas within the bladde r lumen is likely due to the catheterization. Mild bladder wall thickening persists. Prior hysterecto my. Colonic diverticulosis. No evidence for acute diverticulitis. Fluid-filled large and small bowel. This may represent a gastroenteritis/diarrheal illness. Small periumbilical fat-containing hernia is again noted. No bowel wall thickening or obstruction. Normal appendix. IMPRESSION: 1. Tiny focus of nonocclusive thrombus again noted abutting the catheter within the right internal ju gular vein. 2. A few bibasilar linear densities favor subsegmental atelectasis. A pneumonia could also have a sim ilar appearance but is considered less likely. 3. Stable 6 mm nodule/cyst within the right breast. 4. There is a 2.2 cm enhancing lesion within the left adductor muscle. This is indeterminate but may represent a hemangioma. Follow-up nonemergent dedicated MRI of the left thigh is recommended for furt her evaluation. 5. Cholelithiasis. 6. Heterogeneous enhancement within the right kidney and right perinephric enhancement has improved. This suggests a persistent right-sided pyelonephritis. 7. A 1.6 cm hypodense focus within the right kidney which is new from the 07/25/[address] abdomen [address] s CT. Therefore, this could represent an area of scarring from the pyelonephritis. A small renal absc ess or renal infarct could also have a similar appearance. Therefore, one week abdomen CT follow-up r ecommended to ensure resolution. 8. Urothelial thickening within the right renal collecting system and right ureter persists. 9. A right ureteral stent is in good position. 10. A 4 mm stone within the proximal to mid right ureter is again seen adjacent to the stent. This harris s migrated a few centimeters distal compared to the prior study. 11. Fluid-filled large and small bowel. This could be due to a gastroenteritis/diarrheal illness. 12. No bowel wall thickening or obstruction. 13. Additional findings as described above. ACT 112: Negative or not required by law. Electronically signed by: Moshe Lofton M.D. 08/25/2023 5:30 PM
--- NOTE | 2023-08-25 17:32 | CT Scan Report ---
CT soft tissue neck w con CT DOSE: CLINICAL HISTORY: baceteremia, RIJ, h/o ureteral stent TECHNIQUE: Multiaxial CT images of the neck were performed following the intravenous administration o f contrast. Sagittal and coronal reformations were performed at the workstation by the radiologist. A dose lowering technique was utilized adhering to the principles of ALARA. COMPARISON STUDY: Neck CTA 07/25/2023. FINDINGS: The visualized brain parenchyma and orbits are unremarkable. The pterygopalatine fossa and paratracheal fat spaces are maintained. The major mucosal airways services are intact. Normal thyroid gland. No lymphadenopathy or abscess identified within the neck. Prevertebral soft tissues and the e piglottis are normal in thickness. The parotid and submandibular glands are symmetric. No pneumothora x. No acute fractures identified. The paranasal sinuses and mastoid air cells are clear. There is rig ht jugular catheter noted. There is a tiny focus of thrombus adjacent to the right jugular catheter w ithin the right internal jugular vein on image 139. The remaining right internal jugular vein is dc nt.. Mild right and moderate left proximal internal carotid artery narrowing due to the calcified mark que. This remains unchanged. The left internal jugular vein is also patent. IMPRESSION: 1. A right jugular central venous catheter appears in good position. There is a tiny focus of nonoccl usive thrombus within the right internal jugular vein abutting the catheter. 2. No abscess or lymphadenopathy within the neck. ACT 112: Negative or not required by law. Electronically signed by: Moshe Lofton M.D. 08/25/2023 5:31 PM
[2023-08-25] MEDS: MAGNESIUM SULFATE / D5W 1 GM/100 ML BAG IV ONE (17:57)
[2023-08-25] MEDS: POTASSIUM CHLORIDE CRTAB 20 MEQ TABCR PO STA (17:58)
[2023-08-25] MEDS: DIGOXIN 0.125 MG TAB PO SCH (18:24)
[2023-08-25] MEDS: ENOXAPARIN 80 MG/0.8 ML SYR SQ SCH (18:25)
--- NOTE | 2023-08-25 19:36 | Urology Consultation ---
Date of Consultation August 25, 2023 Assessment & Plan (1) Bacteremia due to Gram-positive bacteria: (2) Ureteral stent present: Patient has been admitted on the hospitalist service. From a urologic standpoint we recommend continuing as follows: The patient has had appropriate cultures sent and he should be followed and antibiotics can be tailored based on these results Current antibiotics include Rocephin as well as vancomycin and he should continue and as noted above can be altered based on patient's pending culture results Due to concern for underlying infection/sepsis intravenous fluids should be continued to be utilized. Patient does have budding yeast noted on her urinalysis. Consideration may need to be given to adding an antifungal. This was conveyed to the hospitalist service In the setting of a possible UTI would recommend continuing Joshi catheter for maximal urine drainage At the present time the patient does have a ureteral stent in place and it does appear to be in good position so this will remain in place while the patient undergoes treatment as described above Further discussion will be had about patient's kidney stone treatment once her current situation has been adequately treated. History of Present Illness Reason for Consultation: UTI with indwelling ureteral stent Attending Physician: Akash Saab MD History of Present Illness This is a 73-year-old female who is known to [facility] physician [facility] urology. The patient was most recently admitted to [facility] from 07/26/2023 through 08/21/2023. During this admission the patient was admitted with sepsis from concern of a urinary source. Patient was placed on broad-spectrum antibiotics during this hospitalization and she was taken to the operating room on 07/26/2023 for cystoscopy and right ureteral stent due to a noted kidney stone of the right renal collecting system measuring 2 x 5 mm resulting in hydronephrosis. There is also concern the patient had pyelonephritis at the time of this admission. It should be noted that during this admission patient had both blood and urine cultures that grew Klebsiella. Patient was treated with antibiotics in the form of cefepime which were de- escalated to Rocephin. The patient did complete her course of antibiotics on 08/20/2020. 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 Amputation was not required secondary to this issue during this hospitalization. It was felt that the best course of treatment was to allow patient's gangrene to fully demarcate to determine what areas of tissue could be salvaged and what would require amputation. During this admission the patient also developed atrial fibrillation with rapid ventricular response along with acute on chronic diastolic congestive heart failure and she also suffered a right occipital lobe infarct. She was initiated on anticoagulation for these problems. Patient was discharged to [facility] [place] on 08/21/2023. Patient returned to the emergency department [facility] on 08/24/2023 secondary to the patient being confused per the staff at [facility] [place]. It was felt the patient was suffering from a urinary tract infection and was started on antibiotics in the form of cefdinir. During this emergency department visit the patient did undergo a chest x-ray that showed small bilateral pleural effusions with no findings for typical pneumonia. Patient also underwent a CT scan of the head that showed no evidence of acute stroke. Patient did have blood cultures drawn which were pending at the conclusion of this emergency department visit. Laboratories during this visit showed her white blood cell count and platelet count were normal. Her hemoglobin and hematocrit were 8.3 and 26.1. Chemistry profile showed her sodium was 133 with a potassium of 3.2. Her BUN and creatinine were nonelevated. Urinalysis as noted above was concerning for infection as patient had turbid urine which showed a 3+ leukocyte Estrace and pyuria with greater than 30 white blood cells per high-power field along with budding yeast. The patient Rene presented to the emergency department at [facility] today as her blood cultures came back showing gram-positive cocci. Because this was felt the patient required inpatient antibiotic therapy. I visited with the patient at the bedside and she denies any fevers, shakes, or chills. She said prior to her previous emergency department visit she did have some nausea and vomiting but did not have any abdominal pain. She denies any back pain. She denies any dysuria or hematuria. She does note that 2 days ago I did have to place a urinary catheter. I asked the patient about her ureteral stent and she is unaware of any follow-up plans have been solidified for this problem. Since arrival to [facility] today the patient has had labs and imaging which independent reviewed. Chest x-ray showed small bilateral pleural effusions and bibasilar subsegmental atelectasis. CT scan of the chest abdomen pelvis was performed. This showed the patient had a concern for bibasilar subsegmental atelectasis versus pneumonia. The patient was noticed noted to have heterogeneous enhancement of the right kidney with perinephric enhancement felt to be suggestive of a persistent right-sided pyelonephritis. She was also noted to have a 1.6 cm hypodense focus in the right kidney which is felt to represent scarring from pyelonephritis or developing renal abscess. Urothelial thickening of the right renal collecting system was noted. The patient was noted to have a right ureteral stent in position with a 4 mm kidney stone proximal to this stent. Patient also had a soft tissue neck CT that showed a right jugular central venous catheter which was in good position with a tiny n onocclusive thrombus within the right internal jugular vein abutting the catheter. There is no abscess or lymphadenopathy in the neck. Labs include a CBC her white blood cell count and platelet count are normal. Her hemoglobin and hematocrit were 9.3 and 29.2. Coagulation studies revealed a normal INR. Chemistry profile showed sodium and potassium are 135 and 3.2. Her BUN and creatinine were not elevated. Procalcitonin was not elevated. Urinalysis showed cloudy urine which was negative for nitrites but had 3+ leukocyte Estrace and greater than 30 white blood cells per high-power field. There is budding yeast noted on this study but no bacteria. She was checked for COVID which was negative at night and had an MRSA nasal screen which is negative. At the time of my interview the patient was resting comfortably in bed and she was in no distress. Allergies Allergy/AdvReac Type Severity Reaction Status Date / Time No Known Allergies Allergy Verified 08/24/23 17:19 Home Medications Medication Instructions Recorded Confirmed Type atorvastatin 40 mg tablet 40 mg PO HS 07/25/23 08/25/23 History cyanocobalamin (vitamin B-12) 1,000 mcg PO QAM 07/25/23 08/25/23 History 1,000 mcg tablet metformin 1,000 mg tablet 1,000 mg PO BIDWMEAL 07/25/23 08/25/23 History venlafaxine 150 mg 150 mg PO DAILY 07/25/23 08/25/23 History capsule,extended release 24 hr diltiazem HCl 180 mg 180 mg PO QAM #30 caps 08/21/23 08/25/23 Rx capsule,extended release 24 hr melatonin 3 mg tablet 3 mg PO HS PRN sleep #30 tabs 08/21/23 08/25/23 Rx metoprolol succinate 25 mg 25 mg PO QAM #30 tabs 08/21/23 08/25/23 Rx tablet,extended release 24 hr tamsulosin 0.4 mg capsule 0.4 mg PO HS #30 caps 08/21/23 08/25/23 Rx acetaminophen 325 mg tablet 650 mg PO Q6H PRN FEVER >100/PAIN 08/24/23 08/25/23 History (Tylenol) alendronate 70 mg tablet (Fosamax) 70 mg PO WK 08/24/23 08/25/23 History calcium carbonate 500 mg-vitamin 1 tab PO DAILY 08/24/23 08/25/23 History D3 5 mcg (200 unit) tablet (Calcium 500 + D) cefdinir 300 mg capsule 300 mg PO Q12H 7 days #14 caps 08/24/23 08/25/23 Rx digoxin 125 mcg (0.125 mg) tablet 0.125 mg PO HS 08/24/23 08/25/23 History (Digitek) food supplemt, lactose-reduced 1 ea PO TIDM 08/24/23 08/25/23 History heparin lock flush (porcine) 10 0 unit IV DAILY 08/24/23 08/25/23 History unit/mL intravenous solution lisinopril 10 mg tablet 20 mg PO DAILY 08/24/23 08/25/23 History pantoprazole 40 mg tablet,delayed 40 mg PO BIDM 08/24/23 08/25/23 History release povidone-iodine 10 % topical 1 applic topical TID 08/24/23 08/25/23 History solution (Betadine) sodium chloride 0.9 % (flush) 10 ml IV DAILY 08/24/23 08/25/23 History sodium chloride 0.9 % (flush) 10 ml IV TID 08/24/23 08/25/23 History warfarin 3 mg tablet 3 mg PO HS 08/24/23 08/25/23 History enoxaparin 80 mg/0.8 mL 80 mg subcut Q12H 08/25/23 08/25/23 History subcutaneous syringe (Lovenox) Patient History Medical History Chronic CHF (congestive heart failure) Hx of hepatitis C s/p treatment Dyslipidemia Type 2 diabetes mellitus Acrocyanosis CVA (cerebral vascular accident) punctate right occipital lobe lacunar infarct - MRI 07/29/23 Dry gangrene Anemia Atrial fibrillation with rapid ventricular response Bacteremia Septic shock Acute kidney injury Complicated urinary tract infection Hydronephrosis due to obstruction of ureter Ureterolithiasis Fracture of left wrist with malunion Closed fracture of left distal radius and ulna Acute encephalopathy History of COVID-19 History of colon polyps Anxiety HTN (hypertension) Surgical History S/P wrist surgery History of colonoscopy History of hysterectomy History of tonsillectomy Family History Grandmother Family history of diabetes mellitus Family history of colon cancer Grandfather Family history of colon cancer Aunt Family history of colon cancer Uncle Family history of colon cancer Social History Smoking Status: Former smoker Tobacco Type: Cigarettes Second Hand Exposure: No; Do You Dip or Chew Tobacco: No; Hx Alcohol Use: No Hx Substance Use: No Preferred Language: Khmer Communication Ability: Effective Electrophonic Engineer Required: No Beliefs That Will Affect Care: None Current Living Situation: Long-Term Current Living Situation Comment: [facility] Other Information That Helps Us Care for You: No Feels Safe at Home: Yes Safety Concerns: Feels Safe At This Time Assistive Devices: Wheelchair Review of Systems Constitutional: no fever and no chills Ear, Nose, Mouth, Throat: no hearing loss Respiratory: no cough and no dyspnea Cardiovascular: no chest pain Gastrointestinal: + nausea and + vomiting; no abdominal pa in Genitourinary: as per Subjective / HPI Musculoskeletal: no back pain Integumentary: no rash Neurologic: no localized weakness Physical Exam Constitutional: no acute distress Eyes: no conjunctival abnormality ENMT: Patient has a small area of eschar on the tip of her nose. Neck: trachea midline Respiratory: normal respiratory effort; no respiratory distress and no labored breathing Cardiovascular: Rate/Rhythm: regular rate and regular rhythm Gastrointestinal (Abdomen): Soft and nontender. There is no pain with palpation and there is no rebound tenderness or guarding Musculoskeletal: The patient is noted to have gangrene of all the digits of all 4 extremities. Neurologic: moves all extremities Psychiatric: A+Ox3, euthymic affect Genitourinary: No CVA tenderness with percussion bilaterally. Patient has a Joshi that is in place and is patent draining yellow urine. Results & Data Vital Signs (Past 12 Hours) Vital Signs Temp Pulse Pulse Resp BP BP Pulse Ox 08/25/23 18:24 79 08/25/23 17:33 08/25/23 16:38 37.0 C 08/25/23 16:30 77 18 95 08/25/23 16:30 145/73 H 08/25/23 16:10 77 19 95 08/25/23 16:10 145/73 H 08/25/23 16:00 79 21 96 08/25/23 15:30 77 21 94 08/25/23 15:18 36.8 C 80 18 123/66 08/25/23 15:00 97 08/25/23 15:00 118/55 L 08/25/23 14:30 80 16 106/55 L 97 08/25/23 14:21 80 15 116/54 L 95 08/25/23 14:00 97 08/25/23 12:40 82 21 100 08/25/23 12:22 84 08/25/23 12:15 36.8 C 84 16 142/67 H 95 O2 Del Method 08/25/23 18:24 08/25/23 17:33 Room Air 08/25/23 16:38 08/25/23 16:30 Room Air 08/25/23 16:30 08/25/23 16:10 Room Air 08/25/23 16:10 08/25/23 16:00 08/25/23 15:30 Room Air 08/25/23 15:18 Room Air 08/25/23 15:00 08/25/23 15:00 08/25/23 14:30 08/25/23 14:21 08/25/23 14:00 Room Air 08/25/23 12:40 08/25/23 12:22 08/25/23 12:15 Room Air PG Care Time/CCT Total # of Minutes Spent Total Time Spent with Patient: Total time spent is greater than 50% in coordination of care (as documented) at patient's floor/unit and/or counseling patient: Coding Level of Care Code 37609 INT INP/OBS CARE MIN Diagnoses Bacteremia due to Gram-positive bacteria R78.81 Ureteral stent present Z96.0
[2023-08-25] MEDS ORDERED: POVIDONE IODINE 10% TOP SCH (21:00)
[2023-08-25] MEDS: FLUCONAZOLE 200 MG/100 ML BAG IV SCH (21:05)
[2023-08-25] MEDS: ATORVASTATIN 40 MG TAB PO SCH (21:06)
[2023-08-25] MEDS: TAMSULOSIN HCL 0.4 MG CAP PO SCH (21:06)
[2023-08-25] MEDS: INSULIN ASPART PER UNIT CHARGE SC SCH (21:08)
[2023-08-25] MEDS: VANCOMYCIN HCL 1,250 MG in SODIUM CHLORIDE 0.9% 250 ML IV SCH (23:46)
[2023-08-26] MEDS ORDERED: NON-FORMULARY MEDICATION (Food Supplemt, Lactose-Reduced Liquid) PO SCH (08:00)
[2023-08-26 08:13] LABS: Basophils # (auto) 0.02 K/uL (0.00-0.20); Basophils % (auto) 0.4 %; Eosinophils # (auto) 0.03 K/uL (0.00-0.50); Eosinophils % (auto) 0.6 %; Hematocrit (blood only) 24.9 % (37.0-47.0); Lymphocytes # (auto) 1.32 K/uL (1.20-3.40); Lymphocytes % (auto) 26.5 %; Mean Corpuscular Hemoglobin 29.1 pg (25.0-34.0); Mean Corpuscular Hgb Conc 32.1 g/dL (32.0-36.0); Mean Corpuscular Volume 90.5 fL (80.0-100.0); Monocytes # (auto) 0.55 K/uL (0.11-0.59); Neutrophils # (auto) 2.96 K/uL (1.40-6.50); Neutrophils % (auto) 59.5 %; Platelet Count 303 K/uL (130-400); RDW Coefficient of Variation 15.9 % (11.5-14.5); RDW Standard Deviation 51.9 fL (36.4-46.3); Red Blood Count 2.75 M/uL (4.20-5.40); White Blood Count 4.98 K/ul (4.8-10.8)
[2023-08-26 08:32] LABS: Phosphorus 2.6 mg/dl (2.5-4.9)
[2023-08-26] MEDS: VENLAFAXINE HCL XR 150 MG CAPXR PO SCH (08:50)
[2023-08-26] MEDS: METOPROLOL SUCC 25MG EXT REL TAB PO SCH (08:50)
[2023-08-26] MEDS: PANTOprazole 40 MG TAB PO SCH (08:50)
[2023-08-26] MEDS: dilTIAZem HCL 180 MG CAPCR PO SCH (08:50)
[2023-08-26] MEDS: lisinopril 20 MG TAB PO SCH (08:50)
[2023-08-26] MEDS: CYANOCOBALAMIN (B-12) 500 MCG TABLET PO SCH (08:50)
[2023-08-26 09:26] LABS: BUN Creatinine Ratio 9.8 (10-20); Calcium 7.9 mg/dl (8.6-10.3); Creatinine Clr Calc Pharmacy 101.4 ml/min; Est GFR (African American) 110.6 ml/min; Est GFR (Non-African American) 95.4 ml/min; Magnesium 1.7 mg/dl (1.7-2.4); Potassium 3.3 mmol/L (3.5-5.1)
[2023-08-26 10:21] LABS: INR 1.1 (0.9-1.1); Prothrombin Time 12.4 Seconds (9.0-12.0)
[2023-08-26] MEDS: POTASSIUM CHLORIDE CRTAB 20 MEQ TABCR PO STA (12:37)
--- NOTE | 2023-08-26 13:27 | Electrocardiogram Report ---
Test Reason : Blood Pressure : / mmHG Vent. Rate : 081 BPM Atrial Rate : 081 BPM P-R Int : 150 ms QRS Dur : 078 ms QT Int : 366 ms P-R-T Axes : 076 082 083 degrees QTc Int : 425 ms Normal sinus rhythm Normal ECG When compared with ECG of 24-AUG-2023 14:56, No significant change was found Confirmed by Cabrera Godfrey ([id number]) on 08/26/2023 1:27:17 PM Referred By: REFERRED SELF Confirmed By:Cabrera Godfrey
[2023-08-26] MEDS: cefTRIAXone SODIUM 2,000 MG in DEXTROSE 5 % MINI-B 50 ML IV SCH (14:14)
[2023-08-26] MEDS: WARFARIN SOD 5 MG TAB PO SCH (17:11)
--- NOTE | 2023-08-26 17:14 | Infectious Disease Consult ---
<Statement entered by Corinne Hodge MD - 08/26/23 18:04> Attending addendum This 73 y/o female, recently hospitalized at [facility] 07/26-08/21/23 for suspected sepsis w/ UTI and had cystoscopy w/ R ureteral stent placement (07/26/23) for hydronephrosis and R renal kidney stone. KPN (ruiz S) was noted in blood and urine cultures during that hospitalization. She was also noted to have gangrene of all for extremities but not requiring surgical intervention. She was discharged on 08/21/23 and completed a course of abx therapy w/ cipro. She had R IJ CVC in place at the time of last hospital discharge. She returned to [facility] for alpha Strep in blood (1 of 4 bottles) w/o a clear source: no dental issuse, no recent dental procedure, no obvious GI symptoms, no oral lesions, or no obvious evidence of active infection around the known dry gangrene on hands and feet. However, the CT on admission showed a tiny focus of nonocclusive thrombus w/in the R jugular vein abutting the catheter. No fever was noted. The R IJ CVC was removed on 08/25/23. TTE done on this admission showed showed posterior MV leaflet thickening, appearing similar to prior TTE (07/26/23). Given the less likelihood of endocarditis at this time, I agree w/ simply continuing CTX 2 gm iv qd and f/u the repeat blood cultures. If the repeat blood cultures remain negative, I agree w/ total 2 weeks of CTX from when CTX was started on this admission. I saw and evaluated the patient today. I have reviewed the trainee note and agree. I spent a total of 60 minutes coordinating, documenting, and providing care for this patient excluding time spent in performance of separately billed services. Date of Service August 26, 2023 Telehealth Information I performed this visit using a real-time telehealth connection between my location and the patients location ([facility]). After connecting through interactive tele-video, patient was identified by name and date of and/or wristband check.Patient (or authorized healthcare community service representative) was informed that this was a telemedicine visit and it was being conducted confidentially over secure lines. My office door was closed and no one else was present in the room with me.Patient (or authorized healthcare community service representative) provided consent to proceed with the visit, expressed an understanding of privacy and security of the telemedicine visit, and gave permission to have a hospital community service representative in the room in order to assist with the visit and to conduct portions of the visit, as needed. I informed the patient (or authorized healthcare community service representative) that I reviewed their record and presented the opportunity for them to ask any questions regarding the visit today. The patient agreed to participate. Assessment & Plan (1) Bacteremia due to Gram-positive bacteria: (2) Ureteral stent present: (3) Complicated urinary tract infection: (4) Dry gangrene: (5) Ureterolithiasis: Plan Strep bacteremia(not strep pneumonia/enterococcus) in 07/04 bottles, and there is no other potential sources of infection and CLABSI or line related infection is diagnosis of exclusion Dry gangrenous changes with out any noticeable edema, erythema is less likely source of bacteremia, H/o Klebseilla bacteremia and UTI and she was treated appropriately with Ceftriaxone and PO ciprofloxacin until 08/20/23 Recommending to discontinue Vancomycin and also consider stopping PO fluconazole we recommend continuing with IV ceftriaxone for now and follow up on repeat Blood cultures from 08/25/23. If repeat cultures remain negative we can consider treating for bacteremia for 2 weeks as the pretest probability for Infective endocarditis is low History of Present Illness History of Present Illness 73 year old F DM2, HTN, prior HCV s/p treatment, and mood disorder presents from [facility] with positive blood culture and possible line infection. Pt was seen in the ED yesterday for report of increased confusion, episode of emesis with workup consistent with UTI so pt given a dose of Rocephin and discharged on cefdinir. Patient was called back as BCX GPC in chains (07/04) UCX from 08/24: jennifer albicans/dubliniensis. Repeat BCX drawn from 08/25. WBC:2.7K, Ua showed 2+ blood, 3+ esterase, WBC>30, bacteria:negative Of note patient was hopsitliazed at [facility] from 07/26 to 08/21 with urosepsis, s/p cystoscopy and right ureteral stent due to a noted kidney stone of the right renal collecting system measuring 2 x 5 mm resulting in hydronephrosis on 07/26/23. UCX and BCX Klebseilla (S-Augmentin, unasyn, cefazolin, cefepime, CTX, cipro, ertapenem, Gent, Levaquin, Meropnem, Tobra, bactrim, Zosyn) she ws on CTX and transitioned to PO ciproflxacin until 08/20/23. 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 from last admission Antibiotics:vancomycin, ceftriaxone and fluconazole Allergies Allergy/AdvReac Type Severity Reaction Status Date / Time No Known Allergies Allergy Verified 08/24/23 17:19 Home Medications Medication Instructions Recorded Confirmed Type atorvastatin 40 mg tablet 40 mg PO HS 07/25/23 08/25/23 History cyanocobalamin (vitamin B-12) 1,000 mcg PO QAM 07/25/23 08/25/23 History 1,000 mcg tablet metformin 1,000 mg tablet 1,000 mg PO BIDWMEAL 07/25/23 08/25/23 History venlafaxine 150 mg 150 mg PO DAILY 07/25/23 08/25/23 History capsule,extended release 24 hr diltiazem HCl 180 mg 180 mg PO QAM #30 caps 08/21/23 08/25/23 Rx capsule,extended release 24 hr melatonin 3 mg tablet 3 mg PO HS PRN sleep #30 tabs 08/21/23 08/25/23 Rx metoprolol succinate 25 mg 25 mg PO QAM #30 tabs 08/21/23 08/25/23 Rx tablet,extended release 24 hr tamsulosin 0.4 mg capsule 0.4 mg PO HS #30 caps 08/21/23 08/25/23 Rx acetaminophen 325 mg tablet 650 mg PO Q6H PRN FEVER >100/PAIN 08/24/23 08/25/23 History (Tylenol) alendronate 70 mg tablet (Fosamax) 70 mg PO WK 08/24/23 08/25/23 History calcium carbonate 500 mg-vitamin 1 tab PO DAILY 08/24/23 08/25/23 History D3 5 mcg (200 unit) tablet (Calcium 500 + D) cefdinir 300 mg capsule 300 mg PO Q12H 7 days #14 caps 08/24/23 08/25/23 Rx digoxin 125 mcg (0.125 mg) tablet 0.125 mg PO HS 08/24/23 08/25/23 History (Digitek) food supplemt, lactose-reduced 1 ea PO TIDM 08/24/23 08/25/23 History heparin lock flush (porcine) 10 0 unit IV DAILY 08/24/23 08/25/23 History unit/mL intravenous solution lisinopril 10 mg tablet 20 mg PO DAILY 08/24/23 08/25/23 History pantoprazole 40 mg tablet,delayed 40 mg PO BIDM 08/24/23 08/25/23 History release povidone-iodine 10 % topical 1 applic topical TID 08/24/23 08/25/23 History solution (Betadine) sodium chloride 0.9 % (flush) 10 ml IV DAILY 08/24/23 08/25/23 History sodium chloride 0.9 % (flush) 10 ml IV TID 08/24/23 08/25/23 History warfarin 3 mg tablet 3 mg PO HS 08/24/23 08/25/23 History enoxaparin 80 mg/0.8 mL 80 mg subcut Q12H 08/25/23 08/25/23 History subcutaneous syringe (Lovenox) Patient History Medical History Chronic CHF (congestive heart failure) Hx of hepatitis C s/p treatment Dyslipidemia Type 2 diabetes mellitus Acrocyanosis CVA (cerebral vascular accident) punctate right occipital lobe lacunar infarct - MRI 07/29/23 Dry gangrene Anemia Atrial fibrillation with rapid ventricular response Bacteremia Septic shock Acute kidney injury Complicated urinary tract infection Hydronephrosis due to obstruction of ureter Ureterolithiasis Fracture of left wrist with malunion Closed fracture of left distal radius and ulna Acute encephalopathy History of COVID-19 History of colon polyps Anxiety HTN (hypertension) Surgical History S/P wrist surgery History of colonoscopy History of hysterectomy History of tonsillectomy Family History Grandmother Family history of diabetes mellitus Family history of colon cancer Grandfather Family history of colon cancer Aunt Family history of colon cancer Uncle Family history of colon cancer Social History Smoking Status: Former smoker Tobacco Type: Cigarettes Second Hand Exposure: No; Do You Dip or Chew Tobacco: No; Hx Alcohol Use: No Hx Substance Use: No Preferred Language: Panamanian Communication Ability: Effective Fly Fishing Guide Required: No Beliefs That Will Affect Care: None Current Living Situation: Detention Current Living Situation Comment: [facility] Other Information That Helps Us Care for You: No Feels Safe at Home: Yes Safety Concerns: Feels Safe At This Time Assistive Devices: None Review of Systems All other ROS were negative Physical Exam Physical exam limited Bilateral Upper and lower extremities: dry gangrene with out any noticeable ghazala a, erthema noted scab on the tip of the nose, appears superficial Results & Data Vital Signs (Past 12 Hours) Vital Signs Temp Pulse Pulse Pulse Resp BP Pulse Ox 08/26/23 15:19 36.8 C 78 18 121/72 96 08/26/23 14:59 73 08/26/23 11:38 37.0 C 76 20 127/62 96 08/26/23 08:00 08/26/23 07:42 37.0 C 86 18 135/67 94 O2 Del Method 08/26/23 15:19 Room Air 08/26/23 14:59 08/26/23 11:38 Room Air 08/26/23 08:00 Room Air 08/26/23 07:42 Room Air Laboratory Results Abnormal Lab Results 08/25/23 08/25/23 08/26/23 16:11 21:01 07:21 WBC 4.98 RBC 2.75 L Hgb 8.0 L Hct 24.9 L MCV 90.5 MCH 29.1 MCHC 32.1 RDW Std Deviation 51.9 H RDW Coeff of Mary 15.9 H Plt Count 303 MPV 9.0 L Immature Gran % (Auto) 2.0 Neut % (Auto) 59.5 Lymph % (Auto) 26.5 Freestone % (Auto) 11.0 Eos % (Auto) 0.6 Baso % (Auto) 0.4 Neut # (Auto) 2.96 Lymph # (Auto) 1.32 Freestone # (Auto) 0.55 Eos # (Auto) 0.03 Baso # (Auto) 0.02 Immature Gran # (Auto) 0.10 PT 12.4 H INR 1.1 Sodium 138 Potassium 3.3 L Chloride 107 Carbon Dioxide 23 Anion Gap 8 BUN 5 L Creatinine 0.51 L Est Cr Clr Drug Dosing 101.4 Est GFR ( Amer) 110.6 Est GFR (Non-Af Amer) 95.4 BUN/Creatinine Ratio 9.8 L Glucose 121 H POC Glucose 144 H Calcium 7.9 L Phosphorus 2.6 Magnesium 1.7 Nasal Screen MRSA (PCR) Negative 08/26/23 08/26/23 08/26/23 07:38 11:20 16:08 WBC RBC Hgb Hct MCV MCH MCHC RDW Std Deviation RDW Coeff of Mary Plt Count MPV Immature Gran % (Auto) Neut % (Auto) Lymph % (Auto) Freestone % (Auto) Eos % (Auto) Baso % (Auto) Neut # (Auto) Lymph # (Auto) Freestone # (Auto) Eos # (Auto) Baso # (Auto) Immature Gran # (Auto) PT INR Sodium Potassium Chloride Carbon Dioxide Anion Gap BUN Creatinine Est Cr Clr Drug Dosing Est GFR ( Amer) Est GFR (Non-Af Amer) BUN/Creatinine Ratio Glucose POC Glucose 133 H 128 H 125 H Calcium Phosphorus Magnesium Nasal Screen MRSA (PCR) Diagnostic Findings Abdomen/Pelvis CT 08/25/23 14:[address] WITH CONTRAST, ABDOMEN AND PELVIS CT WITH INTRAVENOUS CONTRAST CT DOSE: 1948.89 mGy.cm HISTORY: bacteremia, RIJ, h/o ureteral stent TECHNIQUE: Multiaxial CT images of the chest, abdomen, and pelvis were performed following the intravenous administration of contrast. A dose lowering technique was utilized adhering to the principles of ALARA. COMPARISON: Chest CTA 07/25/2023. Abdomen and pelvis CT 07/29/2023. FINDINGS: Chest CT:. A right jugular central venous catheter which terminates at the SVC. Tiny focus of nonocclusive thrombus again noted abutting the catheter within the right internal jugular vein on image 36. The right brachiocephalic vein and SVC are patent. Calcified plaque within the normal caliber thoracic aorta. Moderate coronary calcifications again noted. The heart is mildly enlarged. No pleural or pericardial effusions. The central pulmonary arteries are patent. No mediastinal or hilar lymphadenopathy. Stable 6 mm nodule/cyst within the right breast. Normal esophagus. No acute fractures within the chest. No pneumothorax. The central airways are patent. Stable 2 mm nodule within the left lung apex on image 55. No evidence for pulmonary edema. A few bibasilar linear densities favor subsegmental atelectasis. A pneumonia could also have a similar appearance but is considered less likely. Abdomen/pelvis CT: No pneumoperitoneum. No pneumatosis. No acute fractures. The main portal vein is patent. Calcified plaque within the normal caliber abdominal aorta. There is mild narrowing within the proximal common iliac arteries due to the calcified plaque. There is a 2.2 cm enhancing focus within the left adductor muscle on image 404. This is only partially imaged on this study. No hepatic masses. A 5 mm hypodense lesion within the anterior spleen is too small to characterize but likely benign. Stable nodular thickening of the adrenal glands. The pancreas is unremarkable. There are 2 large stones again noted within the gallbladder neck with the largest measuring 14 mm. No significant gallbladder wall thickening. Normal caliber common bile duct. The main portal vein is patent. No retroperitoneal lymphadenopathy. A few bilateral renal hypodense lesions remain stable. The majority these favor cysts. 16 mm hypodense lesion within the right kidney on image 159. This could represent an area of pyelonephritic scarring. A small renal abscess or renal infarct are also considered in the differential diagnosis. Mild heterogeneous enhancement within the right kidney has improved compared to prior studies. This favors a persistent right-sided pyelonephritis. Right perinephric fat stranding is also improved. Left-sided nephrolithiasis. A right ureteral stent appears in good position. There is a 4 mm stone again seen within the proximal ureter adjacent to the stent on image 227. This has migrated a few centimeters distally compared to the prior study. Urothelial thickening within the right renal collecting syst em and right ureter is again noted. Mild right hydronephrosis has progressed in the interval. Bladder is decompressed by Joshi catheter which appears in good position. Gas within the bladder lumen is likely due to the catheterization. Mild bladder wall thickening persists. Prior hysterectomy. Colonic diverticulosis. No evidence for acute diverticulitis. Fluid-filled large and small bowel. This may represent a gastroenteritis/diarrheal illness. Small periumbilical fat-containing hernia is again noted. No bowel wall thickening or obstruction. Normal appendix. IMPRESSION: 1. Tiny focus of nonocclusive thrombus again noted abutting the catheter within the right internal jugular vein. 2. A few bibasilar linear densities favor subsegmental atelectasis. A pneumonia could also have a similar appearance but is considered less likely. 3. Stable 6 mm nodule/cyst within the right breast. 4. There is a 2.2 cm enhancing lesion within the left adductor muscle. This is indeterminate but may represent a hemangioma. Follow-up nonemergent dedicated MRI of the left thigh is recommended for further evaluation. 5. Cholelithiasis. 6. Heterogeneous enhancement within the right kidney and right perinephric enhancement has improved. This suggests a persistent right-sided pyelonephritis. 7. A 1.6 cm hypodense focus within the right kidney which is new from the 07/25/[address] Therefore, this could represent an area of scarring from the pyelonephritis. A small renal abscess or renal infarct could also have a similar appearance. Therefore, one week abdomen CT follow-up recommended to ensure resolution. 8. Urothelial thickening within the right renal collecting system and right ureter persists. 9. A right ureteral stent is in good position. 10. A 4 mm stone within the proximal to mid right ureter is again seen adjacent to the stent. This has migrated a few centimeters distal compared to the prior study. 11. Fluid-filled large and small bowel. This could be due to a gastro enteritis/diarrheal illness. 12. No bowel wall thickening or obstruction. 13. Additional findings as described above. ACT 112: Negative or not required by law. Electronically signed by: Moshe Lofton M.D. 08/25/2023 5:[address] 08/25/23 14:[address] WITH CONTRAST, ABDOMEN AND PELVIS CT WITH INTRAVENOUS CONTRAST CT DOSE: 1948.89 mGy.cm HISTORY: bacteremia, RIJ, h/o ureteral stent TECHNIQUE: Multiaxial CT images of the chest, abdomen, and pelvis were performed following the intravenous administration of contrast. A dose lowering technique was utilized adhering to the principles of ALARA. COMPARISON: Chest CTA 07/25/2023. Abdomen and pelvis CT 07/29/2023. FINDINGS: Chest CT:. A right jugular central venous catheter which terminates at the SVC. Tiny focus of nonocclusive thrombus again noted abutting the catheter within the right internal jugular vein on image 36. The right brachiocephalic vein and SVC are patent. Calcified plaque within the normal caliber thoracic aorta. Moderate coronary calcifications again noted. The heart is mildly enlarged. No pleural or pericardial effusions. The central pulmonary arteries are patent. No mediastinal or hilar lymphadenopathy. Stable 6 mm nodule/cyst within the right breast. Normal esophagus. No acute fractures within the chest. No pneumothorax. The central airways are patent. Stable 2 mm nodule within the left lung apex on image 55. No evidence for pulmonary edema. A few bibasilar linear densities favor subsegmental atelectasis. A pneumonia could also have a similar appearance but is considered less likely. Abdomen/pelvis CT: No pneumoperitoneum. No pneumatosis. No acute fractures. The main portal vein is patent. Calcified plaque within the normal caliber abdominal aorta. There is mild narrowing within the proximal common iliac arteries due to the calcified plaque. There is a 2.2 cm enhancing focus within the left adductor muscle on image 404. This is only partially imaged on this study. No hepatic masses. A 5 mm hypodense lesion within the anterior spleen is too small to characterize but likely benign. Stable nodular thickening of the adrenal glands. The pancreas is unremarkable. There are 2 large stones again noted within the gallbladder neck with the largest measuring 14 mm. No significant gallbladder wall thickening. Normal caliber common bile duct. The main portal vein is patent. No retroperitoneal lymphadenopathy. A few bilateral renal hypodense lesions remain stable. The majority these favor cysts. 16 mm hypodense lesion within the right kidney on image 159. This could represent an area of pyelonephritic scarring. A small renal abscess or renal infarct are also considered in the differential diagnosis. Mild heterogeneous enhancement within the right kidney has improved compared to prior studies. This favors a persistent right-sided pyelonephritis. Right perinephric fat stranding is also improved. Left-sided nephrolithiasis. A right ureteral stent appears in good position. There is a 4 mm stone again seen within the proximal ureter adjacent to the stent on image 227. This has migrated a few centimeters distally compared to the prior study. Urothelial thickening within the right renal collecting system and right ureter is again noted. Mild right hydronephrosis has progressed in the interval. Bladder is decompressed by Joshi catheter which appears in good position. Gas within the bladder lumen is likely due to the catheterization. Mild bladder wall thickening persists. Prior hysterectomy. Colonic diverticulosis. No evidence for acute diverticulitis. Fluid-filled large and small bowel. This may represent a gastroenteritis/diarrheal illness. Small periumbilical fat-containing hernia is again noted. No bowel wall thickening or obstruction. Normal appendix. IMPRESSION: 1. Tiny focus of nonocclusive thrombus again noted abutting the catheter within the right internal jugular vein. 2. A few bibasilar linear densities favor subsegmental atelectasis. A pneumonia could also have a similar appearance but is considered less likely. 3. Stable 6 mm nodule/cyst within the right breast. 4. There is a 2.2 cm enhancing lesion within the left adductor muscle. This is indeterminate but may represent a hemangioma. Follow-up nonemergent dedicated MRI of the left thigh is recommended for further evaluation. 5. Cholelithiasis. 6. Heterogeneous enhancement within the right kidney and right perinephric enhancement has improved. This suggests a persistent right-sided pyelonephritis. 7. A 1.6 cm hypodense focus within the right kidney which is new from the 07/25/[address] Therefore, this could represent an area of scarring from the pyelonephritis. A small renal abscess or renal infarct could also have a similar appearance. Therefore, one week abdomen CT follow-up recommended to ensure resolution. 8. Urothelial thickening within the right renal collecting system and right ureter persists. 9. A right ureteral stent is in good position. 10. A 4 mm stone within the proximal to mid right ureter is again seen adjacent to the stent. This has migrated a few centimeters distal compared to the prior study. 11. Fluid-filled large and small bowel. This could be due to a gastroenteritis/diarrheal illness. 12. No bowel wall thickening or obstruction. 13. Additional findings as described above. ACT 112: Negative or not required by law. Electronically signed by: Moshe Lofton M.D. 08/25/2023 5:[address] 08/25/23 14:21 CT soft tissue neck w con CT DOSE: CLINICAL HISTORY: baceteremia, RIJ, h/o ureteral stent TECHNIQUE: Multiaxial CT images of the neck were performed following the intravenous administration of contrast. Sagittal and coronal reformations were performed at the workstation by the radiologist. A dose lowering technique was utilized adhering to the principles of ALARA. COMPARISON STUDY: Neck CTA 07/25/2023. FINDINGS: The visualized brain parenchyma and orbits are unremarkable. The pterygopalatine fossa and paratracheal fat spaces are maintained. The major mucosal airways services are intact. Normal thyroid gland. No lymphadenopathy or abscess identified within the neck. Prevertebral soft tissues and the epiglottis are normal in thickness. The parotid and submandibular glands are symmetric. No pneumothorax. No acute fractures identified. The paranasal sinuses and mastoid air cells are clear. There is right jugular catheter noted. There is a tiny focus of thrombus adjacent to the right jugular catheter within the right internal jugular vein on image 139. The remaining right internal jugular vein is patent.. Mild right and moderate left proximal internal carotid artery narrowing due to the calcified plaque. This remains unchanged. The left internal jugular vein is also patent. IMPRESSION: 1. A right jugular central venous catheter appears in good position. There is a tiny focus of nonocclusive thrombus within the right internal jugular vein abutting the catheter. 2. No abscess or lymphadenopathy within the neck. ACT 112: Negative or not required by law. Electronically signed by: Moshe Lofton M.D. 08/25/2023 5:31 PM Medications Administered Home Medications Medication Instructions Recorded Confirmed Last Taken atorvastatin 40 mg tablet 40 mg PO HS 07/25/23 08/25/23 08/24/23 cyanocobalamin (vitamin B-12) 1,000 mcg PO QAM 07/25/23 08/25/23 08/25/23 1,000 mcg tablet metformin 1,000 mg tablet 1,000 mg PO BIDWMEAL 07/25/23 08/25/23 08/25/23 venlafaxine 150 mg 150 mg PO DAILY 07/25/23 08/25/23 08/25/23 capsule,extended release 24 hr diltiazem HCl 180 mg 180 mg PO QAM #30 caps 08/21/23 08/25/23 08/25/23 capsule,extended release 24 hr melatonin 3 mg tablet 3 mg PO HS PRN sleep #30 tabs 08/21/23 08/25/23 08/23/23 metoprolol succinate 25 mg 25 mg PO QAM #30 tabs 08/21/23 08/25/23 08/25/23 tablet,extended release 24 hr tamsulosin 0.4 mg capsule 0.4 mg PO HS #30 caps 08/21/23 08/25/23 08/24/23 acetaminophen 325 mg tablet 650 mg PO Q6H PRN FEVER >100/PAIN 08/24/23 08/25/23 Unknown (Tylenol) alendronate 70 mg tablet (Fosamax) 70 mg PO WK 08/24/23 08/25/23 Unknown calcium carbonate 500 mg-vitamin 1 tab PO DAILY 08/24/23 08/25/23 08/25/23 D3 5 mcg (200 unit) tablet (Calcium 500 + D) cefdinir 300 mg capsule 300 mg PO Q12H 7 days #14 caps 08/24/23 08/25/23 08/25/23 digoxin 125 mcg (0.125 mg) tablet 0.125 mg PO HS 08/24/23 08/25/23 08/24/23 (Digitek) food supplemt, lactose-reduced 1 ea PO TIDM 08/24/23 08/25/23 08/24/23 12:30 heparin lock flush (porcine) 10 0 unit IV DAILY 08/24/23 08/25/23 08/24/23 unit/mL intravenous solution lisinopril 10 mg tablet 20 mg PO DAILY 08/24/23 08/25/23 08/25/23 pantoprazole 40 mg tablet,delayed 40 mg PO BIDM 08/24/23 08/25/23 08/25/23 release povidone-iodine 10 % topical 1 applic topical TID 08/24/23 08/25/23 08/24/23 09:00 solution (Betadine) sodium chloride 0.9 % (flush) 10 ml IV DAILY 08/24/23 08/25/23 08/24/23 sodium chloride 0.9 % (flush) 10 ml IV TID 08/24/23 08/25/23 08/24/23 08:30 warfarin 3 mg tablet 3 mg PO HS 08/24/23 08/25/23 08/24/23 enoxaparin 80 mg/0.8 mL 80 mg subcut Q12H 08/25/23 08/25/23 08/25/23 subcutaneous syringe (Lovenox) Active Medications Generic Name Dose Route Start Last Admin Trade Name Freq PRN Reason Stop Dose Admin Atorvastatin Calcium 40 mg 08/25/23 21:00 08/25/23 21:06 Atorvastatin 40 Mg Tab PO 09/24/23 20:59 40 mg HS NILDA Administration Cyanocobalamin 1,000 mcg 08/26/23 09:00 08/26/23 08:50 Cyanocobalamin (B-12) 500 Mcg Tablet PO 09/25/23 08:59 1,000 mcg QAM NILDA Administration Digoxin 0.125 mg 08/25/23 18:00 08/25/23 18:24 Digoxin 0.125 Mg Tab PO 09/24/23 17:59 0.125 mg DAILY@1600 NILDA Administration Diltiazem HCl 180 mg 08/26/23 09:00 08/26/23 08:50 Diltiazem Hcl 180 Mg Capcr PO 09/25/23 08:59 180 mg QAM NILDA Administration Enoxaparin Sodium 70 mg 08/25/23 18:30 08/26/23 05:39 Enoxaparin 80 Mg/0.8 Ml Syr SQ 09/24/23 18:29 70 mg Q12H NILDA Administration Ceftriaxone Sodium 2,000 mg/ 50 mls @ 100 mls/hr 08/26/23 14:00 08/26/23 14:46 Dextrose IV 09/09/23 13:59 Infused Q24H NILDA Infusion Protocol Vancomycin HCl 1,250 mg/ 275 mls @ 200 mls/hr 08/26/23 00:00 08/26/23 12:50 Sodium Chloride IV 09/09/23 00:00 Infused Q12H NILDA Infusion Fluconazole 200 mg in 100 mls @ 100 mls/hr 08/25/23 20:00 08/25/23 22:05 Diflucan IV 09/04/23 19:59 Infused Q24H NILDA Infusion Insulin Aspart 0 units 08/25/23 21:00 08/26/23 12:24 Insulin Aspart Per Unit Charge SC 09/24/23 20:59 Not Given ACHS NILDA Lisinopril 20 mg 08/26/23 09:00 08/26/23 08:50 Lisinopril 20 Mg Tab PO 09/25/23 08:59 20 mg DAILY NILDA Administration Metoprolol Succinate 25 mg 08/26/23 09:00 08/26/23 08:50 Metoprolol Succ 25mg Ext Rel Tab PO 09/25/23 08:59 25 mg QAM NILDA Administration Pantoprazole Sodium 40 mg 08/26/23 08:00 08/26/23 08:50 Pantoprazole 40 Mg Tab PO 09/25/23 07:59 40 mg BIDM NILDA Administration Tamsulosin HCl 0.4 mg 08/25/23 21:00 08/25/23 21:06 Tamsulosin Hcl 0.4 Mg Cap PO 09/24/23 20:59 0.4 mg HS NILDA Administration Venlafaxine HCl 150 mg 08/26/23 09:00 08/26/23 08:50 Venlafaxine Hcl Xr 150 Mg Capxr PO 09/25/23 08:59 150 mg DAILY NILDA Administration
--- NOTE | 2023-08-26 21:21 | Orthopedic Consultation ---
Date of Consultation August 26, 2023 Assessment & Plan (1) Dry gangrene: 73-year-old female with bilateral hand dry gangrene -Medical management -Antibiotics per infectious disease -Occupational Therapy -Pain control -No further orthopedic intervention at this time. Plan to be to allow the areas to demarcate and future amputations. The patient may follow-up with Dr. Lay as an outpatient. Orthopedics will sign off at this time. History of Present Illness Reason for Consultation: Bilateral hands dry gangrene Attending Physician: Indiana Ojeda MD History of Present Illness 72-year-old female with a history of dry gangrene secondary to sepsis and previous pressor support. During patient's last admission she underwent leech therapy. She is scheduled to follow-up with orthopedics as an outpatient for her hands but recently had blood cultures obtained which demonstrated strep in 1 out of 4 cultures. She was then readmitted. Orthopedics was asked to evaluate her bilateral hand gangrene. Allergies Allergy/AdvReac Type Severity Reaction Status Date / Time No Known Allergies Allergy Verified 08/24/23 17:19 Home Medications Medication Instructions Recorded Confirmed Type atorvastatin 40 mg tablet 40 mg PO HS 07/25/23 08/25/23 History cyanocobalamin (vitamin B-12) 1,000 mcg PO QAM 07/25/23 08/25/23 History 1,000 mcg tablet metformin 1,000 mg tablet 1,000 mg PO BIDWMEAL 07/25/23 08/25/23 History venlafaxine 150 mg 150 mg PO DAILY 07/25/23 08/25/23 History capsule,extended release 24 hr diltiazem HCl 180 mg 180 mg PO QAM #30 caps 08/21/23 08/25/23 Rx capsule,extended release 24 hr melatonin 3 mg tablet 3 mg PO HS PRN sleep #30 tabs 08/21/23 08/25/23 Rx metoprolol succinate 25 mg 25 mg PO QAM #30 tabs 08/21/23 08/25/23 Rx tablet,extended release 24 hr tamsulosin 0.4 mg capsule 0.4 mg PO HS #30 caps 08/21/23 08/25/23 Rx acetaminophen 325 mg tablet 650 mg PO Q6H PRN FEVER >100/PAIN 08/24/23 08/25/23 History (Tylenol) alendronate 70 mg tablet (Fosamax) 70 mg PO WK 08/24/23 08/25/23 History calcium carbonate 500 mg-vitamin 1 tab PO DAILY 08/24/23 08/25/23 History D3 5 mcg (200 unit) tablet (Calcium 500 + D) cefdinir 300 mg capsule 300 mg PO Q12H 7 days #14 caps 08/24/23 08/25/23 Rx digoxin 125 mcg (0.125 mg) tablet 0.125 mg PO HS 08/24/23 08/25/23 History (Digitek) food supplemt, lactose-reduced 1 ea PO TIDM 08/24/23 08/25/23 History heparin lock flush (porcine) 10 0 unit IV DAILY 08/24/23 08/25/23 History unit/mL intravenous solution lisinopril 10 mg tablet 20 mg PO DAILY 08/24/23 08/25/23 History pantoprazole 40 mg tablet,delayed 40 mg PO BIDM 08/24/23 08/25/23 History release povidone-iodine 10 % topical 1 applic topical TID 08/24/23 08/25/23 History solution (Betadine) sodium chloride 0.9 % (flush) 10 ml IV DAILY 08/24/23 08/25/23 History sodium chloride 0.9 % (flush) 10 ml IV TID 08/24/23 08/25/23 History warfarin 3 mg tablet 3 mg PO HS 08/24/23 08/25/23 History enoxaparin 80 mg/0.8 mL 80 mg subcut Q12H 08/25/23 08/25/23 History subcutaneous syringe (Lovenox) Patient History Medical History Chronic CHF (congestive heart failure) Hx of hepatitis C s/p treatment Dyslipidemia Type 2 diabetes mellitus Acrocyanosis CVA (cerebral vascular accident) punctate right occipital lobe lacunar infarct - MRI 07/29/23 Dry gangrene Anemia Atrial fibrillation with rapid ventricular response Bacteremia Septic shock Acute kidney injury Complicated urinary tract infection Hydronephrosis due to obstruction of ureter Ureterolithiasis Fracture of left wrist with malunion Closed fracture of left distal radius and ulna Acute encephalopathy History of COVID-19 History of colon polyps Anxiety HTN (hypertension) Surgical History S/P wrist surgery History of colonoscopy History of hysterectomy History of tonsillectomy Family History Grandmother Family history of diabetes mellitus Family history of colon cancer Grandfather Family history of colon cancer Aunt Family history of colon cancer Uncle Family history of colon cancer Social History Smoking Status: Former smoker Tobacco Type: Cigarettes Second Hand Exposure: No; Do You Dip or Chew Tobacco: No; Hx Alcohol Use: No Hx Substance Use: No Preferred Language: [place] Leonean Communication Ability: Effective Java Xml Developer Required: No Beliefs That Will Affect Care: None Current Living Situation: Senior Care Current Living Situation Comment: [facility] Other Information That Helps Us Care for You: No Feels Safe at Home: Yes Safety Concerns: Feels Safe At This Time Assistive Devices: None Physical Exam Constitutional: Resting bed, eating dinner Musculoskeletal: Bilateral upper extremity -There is dry gangrene present involving the right greater than the left hands. There are contractures present in all digits. No motor or sensory function is present for some slight function of the left thumb. Results & Data Vital Signs (Past 12 Hours) Vital Signs Temp Pulse Pulse Pulse Resp BP Pulse Ox 08/26/23 19:35 37.1 C 75 16 144/75 H 97 08/26/23 17:12 79 08/26/23 15:19 36.8 C 78 18 121/72 96 08/26/23 14:59 73 08/26/23 11:38 37.0 C 76 20 127/62 96 O2 Del Method 08/26/23 19:35 Room Air 08/26/23 17:12 08/26/23 15:19 Room Air 08/26/23 14:59 08/26/23 11:38 Room Air
--- NOTE | 2023-08-27 05:14 | Hospitalist Progress Note ---
Date of Service August 26, 2023 Assessment & Plan (1) Bacteremia due to Gram-positive bacteria: (2) Acute UTI: (3) Hypokalemia: (4) Hypomagnesemia: (5) Ureteral stent present: (6) Type 2 diabetes mellitus: (7) Dry gangrene: (8) Dyslipidemia: (9) HTN (hypertension): (10) Anemia: (11) Atrial fibrillation with rapid ventricular response: Plan Pt is a 73yoF with a complicated PMHx significant for extremity gangrene s/p leech therapy developed during last admission (07/26/23-08/21) in the setting of septic shock due to urinary source, poor IV access in setting of continuously progressing/demarcating extremity gangrene, HTN, HLD, T2DM, HCV status posttreatment, anxiety/mood disorder admitted with bacteremia. Bacteremia Altered Mental Status Complicated UTI Pt presented to the ER on 08/24 with concerns for increasing baseline confusion. Was afebrile, WBC within normal limits, BP wnl. Not septic UA at that time concerning for infection, urine Cx grew jennifer Blood Cx x 2 drawn at that time and was pending. Treatment with Rocephin was started at that time Blood Cx x1 from 08/24 growing gram positive strep in cocci. Repeat blood cx x2 ordered on 08/25. Was discharged previously with R IJ catheter due to poor IV access in setting of progressing/demarcating extremity gangrene with follow up at rehab, removed on admission. Cx catheter tip pending R ureteral stent in place from 07/26, urology consulted. Appreciate recs Echo ordered, noting unchanged mitral valve thickening from echo done during previous hospitalization on 07/26/23. Low suggestion of endocarditis at this time. Continue Rocephin pt was started on IV fluconazole for yeast in her urine ID consulted, appreciate recs -continue with Rocephin -discontinue Vancomycin -consider d/c of fluconazole -if no bacteremia on repeat blood cultures from 08/25, continue rocephin for 2 weeks Poor vascular access Extremity gangrene Was discharged previously with R IJ catheter due to poor IV access in setting of progressing/demarcating extremity gangrene with follow up at [facility] rehab, removed on this admission. Cx catheter tip pending On this admission, ED was able to achieve IV access in the left arm (two 20 gauge IVs in left arm currently) Monitor IV access in setting of progressing/demarcating gangrene currently Consider trial for PICC access once more Non occlusive thrombus in right IJ Patient already on anticoagulation Continue with Lovenox 70mg BID with warfarin transition Lovenox currently weight adjusted from previous 80mg as pt has since lost some weight per pharmacy INR currently still 1 Consider increasing warfarin dose or giving extra loading dose R IJ catheter discontinued Extremity gangrene s/p leech therapy Pt with progressing/demarcating extremity gangrene Orthopedics consult placed for further recommendations this admission, appreciate recs. -Medical management -Antibiotics per infectious disease -Occupational Therapy -Pain control -No further orthopedic intervention at this time. -Plan to be to allow the areas to demarcate and future amputations. -The patient may follow-up with Dr. Lay as an outpatient. Ureteral stent status post cystoscopy and right retrograde pyelogram/right ureteral stent placement 07/26/2023 Currently still on Flomax Urology consulted-appreciate recs Hypokalemia Replete as needed Hypomagnesemia Replete as needed Atrial fibrillation with rapid ventricular response During recent admission - currently in normal sinus rhythm Continue metoprolol, diltiazem, digoxin On Lovenox to warfarin bridge Type 2 diabetes mellitus hgba1c of 7.1 in 07/2023 Holding Metformin Insulin sliding scale Diabetic diet Dyslipidemia Chronic, stable Continue statin HTN (hypertension) Chronic, stable Continue outpatient regimen Anemia Ongoing issue from recent admission but stable to improving Mood Continue Effexor GERD Continue ppi Diet: DMII DVT prophylaxis: On therapeutic Lovenox bridge with warfarin Dispo: PT/OT orders in CODE STATUS: Full code Pt's previous hospital course from 07/26/23-08/21 was the following: Complicated UTI Urolithiasis and obstructive uropathy Urosepsis Bacteremia Severe sepsis POA: Secondary to above. Respiratory rate/pulse rate/WBC elevated at presentation. Lactate and procalcitonin elevated at presentation. UA suggestive of infection, 07/26 Urine Cx - Klebsiella Pneumoniae 07/25 Bl Cx x2 - grew Klebsiella Pneumoniae Repeat Blood Cx x2 with NGTD Septic shock: Patient's blood pressure did not improve despite aggressive fluid resuscitation, was transferred to ICU for pressor support on admission. Likely metabolic encephalopathy: Secondary to above Gram-negative bacteremia: 07/25 blood cultures x2 positive for Klebsiella pneumoniae. Repeat blood culture 07/27 no growth to date. Urology evaluated, status post cystoscopy and right retrograde pyelogram/right ureteral stent placement 07/26/2023 Patient was started on cefepime 07/26, to ceftriaxone 07/27, d/w ID 07/28 - agreed w/ Rx. Continue. CTAP repeated 07/29 for concern of perinephric abscess, which was ruled out. Pt was treated with Cefepime or Ceftriaxone for a total of 14 days. Transitioned to ciprofloxacin from 08/09 (see below) - finished course on 08/20/23 Acrocyanosis Gangrene Acute CVA Patient had developed acrocyanosis and nasal tip cyanosis overnight on 07/26- 07/27. Patient has been off of pressor support [vasopressin and Levophed] from 07/26. 07/27 - Duplex arterial scan of UE and LE WNL. Venous Doppler BLE negative for DVT. Patient was started on heparin drip and Solu-Medrol for concern of cryoglobulinemia. 07/28 - acrocyanosis progressed. Discussed with various subspecialties including rheumatology/hematology/curtain drier. Peripheral blood smear with no schistocytes. TTP HUS ruled out. DIC from sepsis versus ischemic necrosis from recent pressor use was contemplated on differential diagnosis for acrocyanosis. Patient was transferred to ICU and was intubated due to tachypnea/shallow breathing. She also developed a fever, and was started on vancomycin/acyclovir/ampicillin on top of Rocephin for possible encephalitis versus meningitis. Lumbar puncture was deferred due to dropping platelets. MRI brain was obtained which revealed punctate right occipital lobe lacunar infarct. Pt seen by neurology. ANAHI screen was negative. PF4 antibody negative --HIT ruled out. Again no schistocytes noted on peripheral smearTTP HUS ruled out Haptoglobin within normal limits Patient was extubated on August Platelets improved as well. Continue SENIOR MANAGER, PT OT. Orthopedics consulted for possible debridement/surgical treatment. Seen by orthopedics on August 02, 2023 and August 04, 2023; do not recommend amputation at this point in time. Recommended allowing for gangrene to fully demarcate to determine what requires amputation and what can be salvaged. Orthopedics re-consulted on 08/08- appreciate recs -recommended waiting for further delineation which can take a few weeks, can be done electively. However pt needs monitoring for signs of infection -podiatry consult for lower extremity evaluation From August 09, 2023 to Aug 13, 2023, pt underwent leech therapy in the hospital through orthopedics surgery, per wound care recommendations (see ortho procedure note from same date). Received 0.5mg Ativan to help with anxiety during the process. Per orthopedics, will need antibiotic coverage in the form of ciprofloxacin 500mg BID which pt received until August 20, 2023. 08/15 - Discussed with Dr. Lay (orthopedic surgery) - Pt should continue on ciprofloxacin for 1 week since discontinuation of leech therapy. The last day leech therapy was August 13. Therefore the last day of ciprofloxacin should be August 20. She may continue occupational therapy for active and passive range of motion. There are no restrictions with therapy. She should elevate bilateral upper extremities. Recommendation is to use Danilo pillow, which has been previously ordered, as much as possible to elevate the extremity. Follow up w/ Dr. Lay ([facility]) in 10-14 days from discharge. New onset anemia Likely UGIB Prior hemoglobin level 13.9, admitting hemoglobin 11.1 Hemoccult positive melanotic stool noted at the ER GI evaluated 07/26, PPI drip changed to twice daily. Monitor H&H and transfuse as needed. Will likely need follow-up with GI as an outpatient. Hemoglobin down to 6.3 on 08/06; transfused 2 units- currently stable at ~ 8.5 Monitor daily CBC Atrial fibrillation with RVR Demand ischemia Patient developed atrial fibrillation with RVR on July 30, 2023 Echocardiogram from 07/26 shows EF of 50 to 55% with mild concentric LVH. 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 Also on digoxin. Transitioned to Cardizem 180 mg daily as planning for discharge this week and reducing metoprolol to 25 mg once daily (as per cardiology recommendations for DC) Continue on Lovenox for anticoagulation. Appreciate Cardiology recs Started warfarin. Plan to stop Lovenox when INR is 2.0 Acute on chronic diastolic CHF: Chest x-ray from 08/01 showed pulmonary edema Echocardiogram as above Diuresis with IV Lasix 40 mg twice daily - stopped Continue IV diuretics as needed to get negative balance. Right occipital lobe lacunar infarct: Head and neck imaging with 07/29 MRI w/ punctate right occipital lobe lacunar infarct. Neurology consulted Continue statin, cont. anticoagulation w/ heparin or warfarin Follow up with neurology as an outpatient. Acute kidney injury-resolved: Admitting creatinine of 1.6, past creatinine 0.89. Status post IV fluid, s/p pressor support. Likely prerenal secondary to septic shock. Improvement with IV hydration Acute metabolic encephalopathy- resolved Acute fever-resolved Thrombocytopenia- resolved Other chronic medical conditions: Continue with/resume home meds as and when able. Hypertension, continue on lisinopril. hyperlipidemia, on statin Rx. 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 Admission and Anticipated Discharge Date Admission Date: August 25, 2023 Subjective Pt was seen in the AM. No acute distress, resting comfortably watching tv. Oriented to name, knows she is in the hospital though unsure of the name and aware that it is 2023. Unsure of the date and month. denies acute concerns. Review of Systems Review of Systems: All systems reviewed & are unremarkable except as noted in Subjective Physical Exam Physical Exam: General: Alert, oriented. 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 No murmurs appreciated Resp: Breath sounds clear bilaterally, no increased effort of breathing. Abdomen: Soft, nontender Extremities: gangrene noted on hands and feet bilaterally Results & Data Results & Data Vital Signs (Past 12 Hours) Vital Signs Temp Pulse Pulse Resp BP Pulse Ox O2 Del Method 08/26/23 07:42 37.0 C 86 18 135/67 94 Room Air 08/26/23 03:00 36.8 C 90 16 135/73 94 Room Air 08/25/23 23:53 88 08/25/23 23:00 36.9 C 84 16 146/78 H Room Air (6) Type 2 diabetes mellitus Diabetes mellitus complication status: with other specified complication Diabetes mellitus prison insulin use: without civil cad tech use Qualified Code(s): E11.69 - Type 2 diabetes mellitus with other specified complication (9) HTN (hypertension) Hypertension type: primary hypertension Qualified Code(s): I10 - Essential (primary) hypertension (10) Anemia Anemia type: unspecified type Qualified Code(s): D64.9 - Anemia, unspecified
[2023-08-27 06:36] LABS: Basophils # (auto) 0.02 K/uL (0.00-0.20); Basophils % (auto) 0.4 %; Eosinophils # (auto) 0.03 K/uL (0.00-0.50); Eosinophils % (auto) 0.6 %; Hematocrit (blood only) 26.8 % (37.0-47.0); Hemoglobin 8.5 g/dl (12.0-16.0); Immature Granulocytes # (auto) 0.08 K/uL (0.01-0.20); Immature Granulocytes % (auto) 1.6 %; Lymphocytes # (auto) 1.34 K/uL (1.20-3.40); Lymphocytes % (auto) 26.4 %; Mean Corpuscular Hemoglobin 29.1 pg (25.0-34.0); Mean Corpuscular Hgb Conc 31.7 g/dL (32.0-36.0); Mean Corpuscular Volume 91.8 fL (80.0-100.0); Mean Platelet Volume 8.7 fL (9.4-12.4); Monocytes # (auto) 0.45 K/uL (0.11-0.59); Monocytes % (auto) 8.9 %; Neutrophils # (auto) 3.15 K/uL (1.40-6.50); Neutrophils % (auto) 62.1 %; Platelet Count 276 K/uL (130-400); RDW Coefficient of Variation 15.7 % (11.5-14.5); RDW Standard Deviation 51.4 fL (36.4-46.3); Red Blood Count 2.92 M/uL (4.20-5.40); White Blood Count 5.07 K/ul (4.8-10.8)
[2023-08-27 06:51] LABS: BUN Creatinine Ratio 11.5 (10-20); Calcium 8.2 mg/dl (8.6-10.3); Creatinine Clr Calc Pharmacy 90.2 ml/min; Est GFR (African American) 109.9 ml/min; Est GFR (Non-African American) 94.8 ml/min; Magnesium 1.7 mg/dl (1.7-2.4); Phosphorus 2.9 mg/dl (2.5-4.9); Potassium 3.6 mmol/L (3.5-5.1)
[2023-08-27 07:00] LABS: INR 1.1 (0.9-1.1); Prothrombin Time 11.7 Seconds (9.0-12.0)
--- NOTE | 2023-08-27 07:35 | Urology Progress Note ---
Date of Service August 27, 2023 Assessment & Plan (1) Complicated urinary tract infection: (2) Bacteremia due to Gram-positive bacteria: (3) Ureteral stent present: Plan: Follow-up of complicated UTI, bacteremia; s/p ureteral stent Afebrile with stable vitals Labs reviewedcreatinine 0.52, WBC 5.07, hemoglobin 8.5 Blood cultures 08/24 - 1 of 4 with alpha strep not enterococcus Urine culture 08/24 with Florina albicans Repeat blood cultures on 08/25 showing no growth after 24 hours Repeat urine culture 08/25 with Florina albicans She is currently on ceftriaxone and fluconazole Continue with antibiotics/antifungals per infectious disease No acute intervention at this time Will plan stone treatment after acute infection has been treated appropriately Plan to follow-up outpatient with urology as scheduled to discuss definitive stone management will sign off Admission and Anticipated Discharge Date Admission Date: August 25, 2023 Subjective Patient patient seen and examined at bedside this morning. She is awake and resting in bed. Denies any acute concerns. No flank pain. Tolerating Joshi catheter. Joshi patent and draining clear yellow urine. Denies fever, chills, nausea, vomiting. Review of Systems Constitutional: as per Subjective / HPI Gastrointestinal: as per Subjective / HPI Genitourinary: as per Subjective / HPI Physical Exam Constitutional: no acute distress Respiratory: normal respiratory effort; no respiratory distress and no labored breathing Gastrointestinal (Abdomen): Inspection/Auscultation: abdomen normal to inspection; abdomen not distended Musculoskeletal: patient is noted to have gangrene of all the digits of all 4 extremities Neurologic: awake Psychiatric: Orientation: alert and oriented to person Genitourinary: Joshi patent and draining clear urine clear urine Results & Data Vital Signs (Past 12 Hours) Vital Signs Temp Pulse Pulse Resp BP Pulse Ox O2 Del Method 08/27/23 03:18 36.7 C 73 16 117/66 97 Room Air 08/26/23 23:23 79 08/26/23 22:38 36.8 C 77 16 126/67 97 Room Air 08/26/23 21:21 Room Air 08/26/23 19:35 37.1 C 75 16 144/75 H 97 Room Air PG Care Time/CCT Total # of Minutes Spent Total Time Spent with Patient: Total time spent is greater than 50% in coordination of care (as documented) at patient's floor/unit and/or counseling patient: Coding Level of Care Code 45759 SUB INP/OBS CARE Diagnoses Complicated urinary tract infection N39.0 Bacteremia due to Gram-positive bacteria R78.81 Ureteral stent present Z96.0
[2023-08-27] MEDS ORDERED: VANCOMYCIN LEVEL ONE (11:00)
--- NOTE | 2023-08-27 12:33 | Hospitalist Progress Note ---
Date of Service August 27, 2023 Assessment & Plan (1) Bacteremia due to Gram-positive bacteria: (2) Acute UTI: (3) Hypokalemia: (4) Hypomagnesemia: (5) Ureteral stent present: (6) Type 2 diabetes mellitus: (7) Dry gangrene: (8) Dyslipidemia: (9) HTN (hypertension): (10) Anemia: (11) Atrial fibrillation with rapid ventricular response: Plan Pt is a 73yoF with a complicated PMHx significant for extremity gangrene s/p leech therapy developed during last admission (07/26/23-08/21) in the setting of septic shock due to urinary source, poor IV access in setting of continuously progressing/demarcating extremity gangrene, HTN, HLD, T2DM, HCV status posttreatment, anxiety/mood disorder admitted with bacteremia. Bacteremia Altered Mental Status Complicated UTI Pt presented to the ER on 08/24 with concerns for increasing baseline confusion. Was afebrile, WBC within normal limits, BP wnl. Not septic UA at that time concerning for infection, urine Cx x 2 grew jennifer Blood Cx x 2 drawn at that time and was pending. Treatment with Rocephin was started at that time Blood Cx x1 from 08/24 growing alpha strep, likely contaminant Repeat blood cx x2 ordered on 08/25. NGTD Was discharged previously with R IJ catheter due to poor IV access in setting of progressing/demarcating extremity gangrene with follow up at rehab, removed on admission. Cx catheter tip pending R ureteral stent in place from 07/26, urology consulted. Appreciate recs Echo ordered, noting unchanged mitral valve thickening from echo done during previous hospitalization on 07/26/23. Low suggestion of endocarditis at this time. Continue Rocephin pt was started on IV fluconazole for yeast in her urine, continue ID consulted, appreciate recs -continue with Rocephin -discontinue Vancomycin -consider d/c of fluconazole -if no bacteremia on repeat blood cultures from 08/25, continue rocephin for 2 weeks Will continue fluconazole given jennifer in the urine on 2 urine Cultures Repeat blood Cx with NGTD, continue with rocephin for 2 weeks per ID recs Poor vascular access Extremity gangrene Was discharged previously with R IJ catheter due to poor IV access in setting of progressing/demarcating extremity gangrene with follow up at rehab, removed on this admission. Cx catheter tip pending On this admission, ED was able to achieve IV access in the left arm (two 20 gauge IVs in left arm currently) Monitor IV access in setting of progressing/demarcating gangrene currently Consider trial for PICC access once more Non occlusive thrombus in right IJ Patient already on anticoagulation Continue with Lovenox 70mg BID with warfarin transition Lovenox currently weight adjusted from previous 80mg as pt has since lost some weight per pharmacy INR currently still 1 Consider increasing warfarin dose or giving extra loading dose -warfarin dose increased to 10mg. R IJ catheter discontinued Extremity gangrene s/p leech therapy Pt with progressing/demarcating extremity gangrene Orthopedics consult placed for further recommendations this admission, appreciate recs. -Medical management -Antibiotics per infectious disease -Occupational Therapy -Pain control -No further orthopedic intervention at this time. -Plan to be to allow the areas to demarcate and future amputations. -The patient may follow-up with Dr. Lay as an outpatient. Ureteral stent status post cystoscopy and right retrograde pyelogram/right ureteral stent placement 07/26/2023 Currently still on Flomax Urology consulted-appreciate recs Hypokalemia Replete as needed Hypomagnesemia Replete as needed Atrial fibrillation with rapid ventricular response During recent admission - currently in normal sinus rhythm Continue metoprolol, diltiazem, digoxin On Lovenox to warfarin bridge Type 2 diabetes mellitus hgba1c of 7.1 in 07/2023 Holding Metformin Insulin sliding scale Diabetic diet Dyslipidemia Chronic, stable Continue statin HTN (hypertension) Chronic, stable Continue outpatient regimen Anemia Ongoing issue from recent admission but stable to improving Mood Continue Effexor GERD Continue ppi Diet: DMII DVT prophylaxis: On therapeutic Lovenox bridge with warfarin Dispo: PT/OT orders in CODE STATUS: Full code Pt's previous hospital course from 07/26/23-08/21 was the following: Complicated UTI Urolithiasis and obstructive uropathy Urosepsis Bacteremia Severe sepsis POA: Secondary to above. Respiratory rate/pulse rate/WBC elevated at presentation. Lactate and procalcitonin elevated at presentation. UA suggestive of infection, 07/26 Urine Cx - Klebsiella Pneumoniae 07/25 Bl Cx x2 - grew Klebsiella Pneumoniae Repeat Blood Cx x2 with NGTD Septic shock: Patient's blood pressure did not improve despite aggressive fluid resuscitation, was transferred to ICU for pressor support on admission. Likely metabolic encephalopathy: Secondary to above Gram-negative bacteremia: 07/25 blood cultures x2 positive for Klebsiella pneumoniae. Repeat blood culture 07/27 no growth to date. Urology evaluated, status post cystoscopy and right retrograde pyelogram/right ureteral stent placement 07/26/2023 Patient was started on cefepime 07/26, to ceftriaxone 07/27, d/w ID 07/28 - agreed w/ Rx. Continue. CTAP repeated 07/29 for concern of perinephric abscess, which was ruled out. Pt was treated with Cefepime or Ceftriaxone for a total of 14 days. Transitioned to ciprofloxacin from 08/09 (see below) - finished course on 08/20/23 Acrocyanosis Gangrene Acute CVA Patient had developed acrocyanosis and nasal tip cyanosis overnight on 07/26- 07/27. Patient has been off of pressor support [vasopressin and Levophed] from 07/26. 07/27 - Duplex arterial scan of UE and LE WNL. Venous Doppler BLE negative for DVT. Patient was started on heparin drip and Solu-Medrol for concern of cryoglobulinemia. 07/28 - acrocyanosis progressed. Discussed with various subspecialties including rheumatology/hematology/direct sales professional. Peripheral blood smear with no schistocytes. TTP HUS ruled out. DIC from sepsis versus ischemic necrosis from recent pressor use was contemplated on differential diagnosis for acrocyanosis. Patient was transferred to ICU and was intubated due to tachypnea/shallow breathing. She also developed a fever, and was started on vancomycin/acyclovir/ampicillin on top of Rocephin for possible encephalitis versus meningitis. Lumbar puncture was deferred due to dropping platelets. MRI brain was obtained which revealed punctate right occipital lobe lacunar infarct. Pt seen by neurology. ANAHI screen was negative. PF4 antibody negative --HIT ruled out. Again no schistocytes noted on peripheral smearTTP HUS ruled out Haptoglobin within normal limits Patient was extubated on August Platelets improved as well. 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 Orthopedics consulted for possible debridement/surgical treatment. Seen by orthopedics on August 02, 2023 and August 04, 2023; do not recommend amputation at this point in time. Recommended allowing for gangrene to fully demarcate to determine what requires amputation and what can be salvaged. Orthopedics re-consulted on 08/08- appreciate recs -recommended waiting for further delineation which can take a few weeks, can be done electively. However pt needs monitoring for signs of infection -podiatry consult for lower extremity evaluation From August 09, 2023 to Aug 13, 2023, pt underwent leech therapy in the hospital through orthopedics surgery, per wound care recommendations (see ortho procedure note from same date). Received 0.5mg Ativan to help with anxiety during the process. Per orthopedics, will need antibiotic coverage in the form of ciprofloxacin 500mg BID which pt received until August 20, 2023. 08/15 - Discussed with Dr. Lay (orthopedic surgery) - Pt should continue on ciprofloxacin for 1 week since discontinuation of leech therapy. The last day leech therapy was August 13. Therefore the last day of ciprofloxacin should be August 20. She may continue occupational therapy for active and passive range of motion. There are no restrictions with therapy. She should elevate bilateral upper extremities. Recommendation is to use Danilo pillow, which has been previously ordered, as much as possible to elevate the extremity. Follow up w/ Dr. Lay ([facility]) in 10-14 days from discharge. New onset anemia Likely UGIB Prior hemoglobin level 13.9, admitting hemoglobin 11.1 Hemoccult positive melanotic stool noted at the ER GI evaluated 07/26, PPI drip changed to twice daily. Monitor H&H and transfuse as needed. Will likely need follow-up with GI as an outpatient. Hemoglobin down to 6.3 on 08/06; transfused 2 units- currently stable at ~ 8.5 Monitor daily CBC Atrial fibrillation with RVR Demand ischemia Patient developed atrial fibrillation with RVR on July 30, 2023 Echocardiogram from 07/26 shows EF of 50 to 55% with mild concentric LVH. 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 Also on digoxin. Transitioned to Cardizem 180 mg daily as planning for discharge this week and reducing metoprolol to 25 mg once daily (as per cardiology recommendations for DC) Continue on Lovenox for anticoagulation. Appreciate Cardiology recs Started warfarin. Plan to stop Lovenox when INR is 2.0 Acute on chronic diastolic CHF: Chest x-ray from 08/01 showed pulmonary edema Echocardiogram as above Diuresis with IV Lasix 40 mg twice daily - stopped Continue IV diuretics as needed to get negative balance. Right occipital lobe lacunar infarct: Head and neck imaging with 07/29 MRI w/ punctate right occipital lobe lacunar infarct. Neurology consulted Continue statin, cont. anticoagulation w/ heparin or warfarin Follow up with neurology as an outpatient. Acute kidney injury-resolved: Admitting creatinine of 1.6, past creatinine 0.89. Status post IV fluid, s/p pressor support. Likely prerenal secondary to septic shock. Improvement with IV hydration Acute metabolic encephalopathy- resolved Acute fever-resolved Thrombocytopenia- resolved Other chronic medical conditions: Continue with/resume home meds as and when able. Hypertension, continue on lisinopril. hyperlipidemia, on statin Rx. 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 Admission and Anticipated Discharge Date Admission Date: August 25, 2023 Subjective Pt was seen in the AM. Alert to self, knows she is in the hospital, knows the year and month but denies acute concerns. Review of Systems Review of Systems: All systems reviewed & are unremarkable except as noted in Subjective Physical Exam Physical Exam: General: Alert, oriented. 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 No murmurs appreciated Resp: Breath sounds clear bilaterally, no increased effort of breathing. Abdomen: Soft, nontender Extremities: gangrene noted on hands and feet bilaterally Results & Data Results & Data Vital Signs (Past 12 Hours) Vital Signs Temp Pulse Pulse Pulse Resp BP BP 08/27/23 11:38 36.5 C 75 18 130/74 08/27/23 08:00 08/27/23 08:00 79 08/27/23 07:48 36.4 C L 67 16 142/69 H 08/27/23 03:18 36.7 C 73 16 117/66 Pulse Ox O2 Del Method 08/27/23 11:38 96 Room Air 08/27/23 08:00 Room Air 08/27/23 08:00 08/27/23 07:48 94 Room Air 08/27/23 03:18 97 Room Air (6) Type 2 diabetes mellitus Diabetes mellitus complication status: with other specified complication Diabetes mellitus chcf insulin use: without terminal worker use Qualified Code(s): E11.69 - Type 2 diabetes mellitus with other specified complication (9) HTN (hypertension) Hypertension type: primary hypertension Qualified Code(s): I10 - Essential (primary) hypertension (10) Anemia Anemia type: unspecified type Qualified Code(s): D64.9 - Anemia, unspecified
[2023-08-28 06:10] LABS: Basophils # (auto) 0.02 K/uL (0.00-0.20); Basophils % (auto) 0.4 %; Eosinophils # (auto) 0.04 K/uL (0.00-0.50); Eosinophils % (auto) 0.8 %; Hematocrit (blood only) 26.1 % (37.0-47.0); Hemoglobin 8.5 g/dl (12.0-16.0); Immature Granulocytes # (auto) 0.07 K/uL (0.01-0.20); Immature Granulocytes % (auto) 1.3 %; Lymphocytes # (auto) 1.29 K/uL (1.20-3.40); Lymphocytes % (auto) 24.7 %; Mean Corpuscular Hgb Conc 32.6 g/dL (32.0-36.0); Mean Corpuscular Volume 89.1 fL (80.0-100.0); Monocytes # (auto) 0.43 K/uL (0.11-0.59); Monocytes % (auto) 8.2 %; Neutrophils # (auto) 3.37 K/uL (1.40-6.50); Neutrophils % (auto) 64.6 %; Platelet Count 301 K/uL (130-400); RDW Coefficient of Variation 15.3 % (11.5-14.5); RDW Standard Deviation 49.1 fL (36.4-46.3); Red Blood Count 2.93 M/uL (4.20-5.40); White Blood Count 5.22 K/ul (4.8-10.8)
[2023-08-28 06:23] LABS: BUN Creatinine Ratio 10.9 (10-20); Calcium 8.3 mg/dl (8.6-10.3); Creatinine Clr Calc Pharmacy 92.6 ml/min; Est GFR (African American) 107.8 ml/min; Est GFR (Non-African American) 93.1 ml/min; Magnesium 1.7 mg/dl (1.7-2.4); Potassium 3.1 mmol/L (3.5-5.1)
[2023-08-28 06:33] LABS: INR 1.2 (0.9-1.1); Prothrombin Time 13.1 Seconds (9.0-12.0)
--- NOTE | 2023-08-28 08:32 | Hospitalist Progress Note ---
Date of Service August 28, 2023 Assessment & Plan (1) Bacteremia due to Gram-positive bacteria: (2) Acute UTI: (3) Hypokalemia: (4) Hypomagnesemia: (5) Ureteral stent present: (6) Type 2 diabetes mellitus: (7) Dry gangrene: (8) Dyslipidemia: (9) HTN (hypertension): (10) Anemia: (11) Atrial fibrillation with rapid ventricular response: Plan Pt is a 73yoF with a complicated PMHx significant for extremity gangrene s/p leech therapy developed during last admission (07/26/23-08/21) in the setting of septic shock due to urinary source, poor IV access in setting of continuously progressing/demarcating extremity gangrene, HTN, HLD, T2DM, HCV status posttreatment, anxiety/mood disorder admitted with bacteremia. Bacteremia Altered Mental Status Complicated UTI Pt presented to the ER on 08/24 with concerns for increasing baseline confusion. Was afebrile, WBC within normal limits, BP wnl. Not septic UA at that time concerning for infection, urine Cx x 2 grew jennifer Blood Cx x 2 drawn at that time and was pending. Treatment with Rocephin was started at that time Blood Cx x1 from 08/24 growing alpha strep, likely contaminant Repeat blood cx x2 ordered on 08/25. NGTD Was discharged previously with R IJ catheter due to poor IV access in setting of progressing/demarcating extremity gangrene with follow up at rehab, removed on admission. Cx catheter tip pending R ureteral stent in place from 07/26, urology consulted. Appreciate recs CT abd/pelvis - 1. Tiny focus of nonocclusive thrombus again noted abutting the catheter within the right internal jugular vein. 2. A few bibasilar linear densities favor subsegmental atelectasis. A pneumonia could also have a similar appearance but is considered less likely. 3. Stable 6 mm nodule/cyst within the right breast. 4. There is a 2.2 cm enhancing lesion within the left adductor muscle. This is indeterminate but may represent a hemangioma. Follow-up nonemergent dedicated MRI of the left thigh is recommended for further evaluation. 5. Cholelithiasis. 6. Heterogeneous enhancement within the right kidney and right perinephric enhancement has improved. This suggests a persistent right-sided pyelonephritis. 7. A 1.6 cm hypodense focus within the right kidney which is new from the 07/25/[address] Therefore, this could represent an area of scarring from the pyelonephritis. A small renal abscess or renal infarct could also have a similar appearance. Therefore, one week abdomen CT follow-up recommended to ensure resolution. 8. Urothelial thickening within the right renal collecting system and right ureter persists. 9. A right ureteral stent is in good position. 10. A 4 mm stone within the proximal to mid right ureter is again seen adjacent to the stent. This has migrated a few centimeters distal compared to the prior study. 11. Fluid-filled large and small bowel. This could be due to a gastroenteritis/diarrheal illness. 12. No bowel wall thickening or obstruction. 13. Additional findings as described above. Urology contacted (08/28) re: CT scan - per [employer] message - small and did not appear to be a drainable fluid collection. Dr. Nicholas said if she is clinically improving then reimaging is probably not necessary. If not, can repeat ROBERTO or do a CT with contrast. Radiology said repeat in 1 week so could do that as a precaution, or sooner if she is not doing better. Echo ordered, noting unchanged mitral valve thickening from echo done during previous hospitalization on 07/26/23. Low suggestion of endocarditis at this time. Continue Rocephin pt was started on IV fluconazole for yeast in her urine, continue ID consulted, appreciate recs -continue with Rocephin -discontinue Vancomycin -consider d/c of fluconazole -if no bacteremia on repeat blood cultures from 08/25, continue rocephin for 2 weeks Will continue fluconazole given jennifer in the urine on 2 urine Cultures Repeat blood Cx with NGTD, continue with rocephin for 2 weeks per ID recs Poor vascular access Extremity gangrene Was discharged previously with R IJ catheter due to poor IV access in setting of progressing/demarcating extremity gangrene with follow up at rehab, removed on this admission. Cx catheter tip pending On this admission, ED was able to achieve IV access in the left arm (two 20 gauge IVs in left arm currently) Monitor IV access in setting of progressing/demarcating gangrene currently Consider trial for PICC access once more Non occlusive thrombus in right IJ Patient already on anticoagulation Continue with Lovenox 70mg BID with warfarin transition Lovenox currently weight adjusted from previous 80mg as pt has since lost some weight per pharmacy INR currently still low Increased warfarin dose to 10mg. R IJ catheter discontinued Extremity gangrene s/p leech therapy Pt with progressing/demarcating extremity gangrene Orthopedics consult placed for further recommendations this admission, appreciate recs. -Medical management -Antibiotics per infectious disease -Occupational Therapy -Pain control -No further orthopedic intervention at this time. -Plan to be to allow the areas to demarcate and future amputations. -The patient may follow-up with Dr. Lay as an outpatient. Ureteral stent status post cystoscopy and right retrograde pyelogram/right ureteral stent placement 07/26/2023 Currently still on Flomax Urology consulted-appreciate recs Hypokalemia Replete as needed Hypomagnesemia Replete as needed Atrial fibrillation with rapid ventricular response During recent admission - currently in normal sinus rhythm Continue metoprolol, diltiazem, digoxin On Lovenox to warfarin bridge Type 2 diabetes mellitus hgba1c of 7.1 in 07/2023 Holding Metformin Insulin sliding scale Diabetic diet Dyslipidemia Chronic, stable Continue statin HTN (hypertension) Chronic, stable Continue outpatient regimen Anemia Ongoing issue from recent admission but stable to improving Mood Continue Effexor GERD Continue ppi Diet: DMII DVT prophylaxis: On therapeutic Lovenox bridge with warfarin Dispo: PT/OT orders in CODE STATUS: Full code Admission and Anticipated Discharge Date Admission Date: August 25, 2023 Subjective Pt seen in follow up - had very complicated hospital course Currently treated for UTI, bacteremia Laying in bed in NAD Currently denies any fevers chills chest pain shortness of breath. Denies abdominal pain, nausea vomiting. Says she was feeling sick in her stomach when she came to the hospital, felt as having UTI, [id number] at the bedside says that she was helping her eat and patient was throwing up. Seems to be doing much better now. I contacted urology this morning regarding CT abdomen pelvis obtained on admission. Will continue to monitor, and may repeat in about a week. Review of Systems Review of Systems: All systems reviewed & are unremarkable except as noted in Subjective Physical Exam Physical Exam: General: Alert, oriented. 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 No murmurs appreciated Resp: Breath sounds clear bilaterally, no increased effort of breathing. Abdomen: Soft, nontender Extremities: gangrene noted on hands and feet bilaterally Results & Data Results & Data Vital Signs (Past 12 Hours) Vital Signs Temp Pulse Pulse Pulse Resp BP BP 08/28/23 07:35 71 08/28/23 03:47 36.6 C 76 16 125/71 08/27/23 23:48 81 08/27/23 23:40 36.8 C 76 18 146/72 H 08/27/23 22:11 Pulse Ox O2 Del Method 08/28/23 07:35 08/28/23 03:47 95 Room Air 08/27/23 23:48 08/27/23 23:40 95 Room Air 08/27/23 22:11 Room Air Laboratory Results 08/28/23 08/28/23 08/27/23 Range/Units 07:35 05:41 20:24 WBC 5.22 (4.8-10.8) K/ul RBC 2.93 L (4.20-5.40) M/uL Hgb 8.5 L (12.0-16.0) g/dl Hct 26.1 L (37.0-47.0) % MCV 89.1 (80.0-100.0) fL MCH 29.0 (25.0-34.0) pg MCHC 32.6 (32.0-36.0) g/dL RDW Std Deviation 49.1 H (36.4-46.3) fL RDW Coeff of Mary 15.3 H (11.5-14.5) % Plt Count 301 (130-400) K/uL MPV 9.0 L (9.4-12.4) fL Immature Gran % (Auto) 1.3 % Neut % (Auto) 64.6 % Lymph % (Auto) 24.7 % Marshall % (Auto) 8.2 % Eos % (Auto) 0.8 % Baso % (Auto) 0.4 % Neut # (Auto) 3.37 (1.40-6.50) K/uL Lymph # (Auto) 1.29 (1.20-3.40) K/uL Marshall # (Auto) 0.43 (0.11-0.59) K/uL Eos # (Auto) 0.04 (0.00-0.50) K/uL Baso # (Auto) 0.02 (0.00-0.20) K/uL Immature Gran # (Auto) 0.07 (0.01-0.20) K/uL PT 13.1 H (9.0-12.0) Seconds INR 1.2 H (0.9-1.1) Sodium 138 (136-145) mmol/L Potassium 3.1 L (3.5-5.1) mmol/L Chloride 105 (98-107) mmol/L Carbon Dioxide 25 (21-32) mmol/L Anion Gap 8 (3-11) BUN 6 (6-23) mg/dl Creatinine 0.55 L (0.6-1.2) mg/dl Est Cr Clr Drug Dosing 92.6 ml/min Est GFR ( Amer) 107.8 ml/min Est GFR (Non-Af Amer) 93.1 ml/min BUN/Creatinine Ratio 10.9 (10-20) Glucose 131 H (70-99(Fasting)) mg/dl POC Glucose 141 H 155 H (70-99) mg/dl Calcium 8.3 L (8.6-10.3) mg/dl Magnesium 1.7 (1.7-2.4) mg/dl 08/27/23 Range/Units 16:16 WBC (4.8-10.8) K/ul RBC (4.20-5.40) M/uL Hgb (12.0-16.0) g/dl Hct (37.0-47.0) % MCV (80.0-100.0) fL MCH (25.0-34.0) pg MCHC (32.0-36.0) g/dL RDW Std Deviation (36.4-46.3) fL RDW Coeff of Mary (11.5-14.5) % Plt Count (130-400) K/uL MPV (9.4-12.4) fL Immature Gran % (Auto) % Neut % (Auto) % Lymph % (Auto) % Marshall % (Auto) % Eos % (Auto) % Baso % (Auto) % Neut # (Auto) (1.40-6.50) K/uL Lymph # (Auto) (1.20-3.40) K/uL Marshall # (Auto) (0.11-0.59) K/uL Eos # (Auto) (0.00-0.50) K/uL Baso # (Auto) (0.00-0.20) K/uL Immature Gran # (Auto) (0.01-0.20) K/uL PT (9.0-12.0) Seconds INR (0.9-1.1) Sodium (136-145) mmol/L Potassium (3.5-5.1) mmol/L Chloride (98-107) mmol/L Carbon Dioxide (21-32) mmol/L Anion Gap (3-11) BUN (6-23) mg/dl Creatinine (0.6-1.2) mg/dl Est Cr Clr Drug Dosing ml/min Est GFR ( Amer) ml/min Est GFR (Non-Af Amer) ml/min BUN/Creatinine Ratio (10-20) Glucose (70-99(Fasting)) mg/dl POC Glucose 136 H (70-99) mg/dl Calcium (8.6-10.3) mg/dl Magnesium (1.7-2.4) mg/dl Medications Administered Current Inpatient Medications Atorvastatin Calcium (Atorvastatin 40 Mg Tab) 40 mg PO HS [facility] Stop: 09/24/23 20:59 Last Admin: 08/27/23 20:32 Dose: 40 mg Cyanocobalamin (Cyanocobalamin (B-12) 500 Mcg Tablet) 1,000 mcg PO QAM NILDA Stop: 09/25/23 08:59 Last Admin: 08/28/23 08:24 Dose: 1,000 mcg Dextrose (Dextrose 50% 50 Ml Syringe) 25 - 50 ml IV UD PRN; Protocol PRN Reason: Hypoglycemia Protocol Stop: 09/24/23 17:28 Digoxin (Digoxin 0.125 Mg Tab) 0.125 mg PO DAILY@1600 [facility] Stop: 09/24/23 17:59 Last Admin: 08/27/23 15:38 Dose: 0.125 mg Diltiazem HCl (Diltiazem Hcl 180 Mg Capcr) 180 mg PO QAM NILDA Stop: 09/25/23 08:59 Last Admin: 08/28/23 08:24 Dose: 180 mg Enoxaparin Sodium (Enoxaparin 80 Mg/0.8 Ml Syr) 70 mg SQ Q12H NILDA Stop: 09/24/23 18:29 Last Admin: 08/28/23 05:43 Dose: 70 mg Glucagon (Glucagon For Inj 1 Mg Vial) 1 mg SQ UD PRN; Protocol PRN Reason: Hypoglycemia Protocol Stop: 09/24/23 17:28 Glucose (Glucose 10 Tab/Tube) 4 - 8 tab PO UD PRN; Protocol PRN Reason: Hypoglycemia Treatment Stop: 09/24/23 17:28 Glucose (Glucose 40% Gel 15 Gm Tube) 15 - 30 gm PO UD PRN; Protocol PRN Reason: Hypoglycemia Protocol Stop: 09/24/23 17:28 Ceftriaxone Sodium 2,000 mg/ (Dextrose) 50 mls @ 100 mls/hr IV Q24H [facility]; Protocol Stop: 09/09/23 13:59 Last Infusion: 08/27/23 15:23 Dose: Infused Fluconazole (Diflucan) 200 mg in 100 mls @ 100 mls/hr IV Q24H [facility] Stop: 09/04/23 19:59 Last Infusion: 08/27/23 21:35 Dose: Infused Insulin Aspart (Insulin Aspart Per Unit Charge) 0 units SC ACHS NILDA Stop: 09/24/23 20:59 Last Admin: 08/28/23 08:23 Dose: 5 units Lisinopril (Lisinopril 20 Mg Tab) 20 mg PO DAILY N[facility] Stop: 09/25/23 08:59 Last Admin: 08/28/23 08:24 Dose: 20 mg Melatonin (Melatonin 3 Mg Tab) 3 mg PO HS PRN PRN Reason: sleep Stop: 09/24/23 17:27 Metoprolol Succinate (Metoprolol Succ 25mg Ext Rel Tab) 25 mg PO QAM NILDA Stop: 09/25/23 08:59 Last Admin: 08/28/23 08:24 Dose: 25 mg Miscellaneous (Carbohydrates For Hypoglycemia ) 15 - 30 gm PO UD PRN PRN Reason: Hypoglycemia Protocol Stop: 09/24/23 17:28 Pantoprazole Sodium (Pantoprazole 40 Mg Tab) 40 mg PO BIDM [facility] Stop: 09/25/23 07:59 Last Admin: 08/28/23 08:24 Dose: 40 mg Tamsulosin HCl (Tamsulosin Hcl 0.4 Mg Cap) 0.4 mg PO HS [facility] Stop: 09/24/23 20:59 Last Admin: 08/27/23 20:32 Dose: 0.4 mg Venlafaxine HCl (Venlafaxine Hcl Xr 150 Mg Capxr) 150 mg PO DAILY [facility] Stop: 09/25/23 08:59 Last Admin: 08/28/23 08:24 Dose: 150 mg Warfarin Sodium (Warfarin Sod 10 Mg Tab) 10 mg PO DAILY@1600 [facility] Stop: 09/27/23 15:59 (6) Type 2 diabetes mellitus Diabetes mellitus complication status: with other specified complication Diabetes mellitus roasterman insulin use: without roasterman use Qualified Code(s): E11.69 - Type 2 diabetes mellitus with other specified complication (9) HTN (hypertension) Hypertension type: primary hypertension Qualified Code(s): I10 - Essential (primary) hypertension (10) Anemia Anemia type: unspecified type Qualified Code(s): D64.9 - Anemia, unspecified
[2023-08-28] MEDS: MAGNESIUM OXIDE 400 MG TAB PO SCH (09:26)
[2023-08-28] MEDS: POTASSIUM CHLORIDE CRTAB 20 MEQ TABCR PO STA (09:26)
[2023-08-28] MEDS: WARFARIN SOD 10 MG TAB PO SCH (15:26)
[2023-08-29 06:59] LABS: Hematocrit (blood only) 27.1 % (37.0-47.0); Hemoglobin 8.6 g/dl (12.0-16.0); Mean Corpuscular Hemoglobin 28.9 pg (25.0-34.0); Mean Corpuscular Hgb Conc 31.7 g/dL (32.0-36.0); Mean Corpuscular Volume 90.9 fL (80.0-100.0); Mean Platelet Volume 9.2 fL (9.4-12.4); Platelet Count 289 K/uL (130-400); RDW Coefficient of Variation 15.6 % (11.5-14.5); RDW Standard Deviation 51.2 fL (36.4-46.3); Red Blood Count 2.98 M/uL (4.20-5.40); White Blood Count 5.54 K/ul (4.8-10.8)
[2023-08-29 07:03] LABS: Calcium 8.5 mg/dl (8.6-10.3); Creatinine Clr Calc Pharmacy 89.6 ml/min; Est GFR (African American) 106.6 ml/min; Magnesium 1.7 mg/dl (1.7-2.4); Phosphorus 3.1 mg/dl (2.5-4.9); Potassium 3.7 mmol/L (3.5-5.1)
[2023-08-29 07:11] LABS: INR 1.5 (0.9-1.1); Prothrombin Time 16.4 Seconds (9.0-12.0)
--- NOTE | 2023-08-29 19:51 | Hospitalist Progress Note ---
Date of Service August 29, 2023 Assessment & Plan (1) Bacteremia due to Gram-positive bacteria: (2) Acute UTI: (3) Hypokalemia: (4) Hypomagnesemia: (5) Ureteral stent present: (6) Type 2 diabetes mellitus: (7) Dry gangrene: (8) Dyslipidemia: (9) HTN (hypertension): (10) Anemia: (11) Atrial fibrillation with rapid ventricular response: Plan Pt is a 73yoF with a complicated PMHx significant for extremity gangrene s/p leech therapy developed during last admission (07/26/23-08/21) in the setting of septic shock due to urinary source, poor IV access in setting of continuously progressing/demarcating extremity gangrene, HTN, HLD, T2DM, HCV status posttreatment, anxiety/mood disorder admitted with bacteremia. Bacteremia Altered Mental Status Complicated UTI Pt presented to the ER on 08/24 with concerns for increasing baseline confusion. Was afebrile, WBC within normal limits, BP wnl. Not septic UA at that time concerning for infection, urine Cx x 2 grew jennifer Blood Cx x 2 drawn at that time and was pending. Treatment with Rocephin was started at that time Blood Cx x1 from 08/24 growing alpha strep, likely contaminant Repeat blood cx x2 ordered on 08/25. NGTD Was discharged previously with R IJ catheter due to poor IV access in setting of progressing/demarcating extremity gangrene with follow up at rehab, removed on admission. Cx catheter tip pending R ureteral stent in place from 07/26, urology consulted. Appreciate recs CT abd/pelvis - 1. Tiny focus of nonocclusive thrombus again noted abutting the catheter within the right internal jugular vein. 2. A few bibasilar linear densities favor subsegmental atelectasis. A pneumonia could also have a similar appearance but is considered less likely. 3. Stable 6 mm nodule/cyst within the right breast. 4. There is a 2.2 cm enhancing lesion within the left adductor muscle. This is indeterminate but may represent a hemangioma. Follow-up nonemergent dedicated MRI of the left thigh is recommended for further evaluation. 5. Cholelithiasis. 6. Heterogeneous enhancement within the right kidney and right perinephric enhancement has improved. This suggests a persistent right-sided pyelonephritis. 7. A 1.6 cm hypodense focus within the right kidney which is new from the 07/25/[address] Therefore, this could represent an area of scarring from the pyelonephritis. A small renal abscess or renal infarct could also have a similar appearance. Therefore, one week abdomen CT follow-up recommended to ensure resolution. 8. Urothelial thickening within the right renal collecting system and right ureter persists. 9. A right ureteral stent is in good position. 10. A 4 mm stone within the proximal to mid right ureter is again seen adjacent to the stent. This has migrated a few centimeters distal compared to the prior study. 11. Fluid-filled large and small bowel. This could be due to a gastroenteritis/diarrheal illness. 12. No bowel wall thickening or obstruction. 13. Additional findings as described above. Urology contacted (08/28) re: CT scan - per [employer] CONDITION[employer] message - small and did not appear to be a drainable fluid collection. Dr. Nicholas said if she is clinically improving then reimaging is probably not necessary. If not, can repeat ROBERTO or do a CT with contrast. Radiology said repeat in 1 week so could do that as a precaution, or sooner if she is not doing better. Echo ordered, noting unchanged mitral valve thickening from echo done during previous hospitalization on 07/26/23. Low suggestion of endocarditis at this time. Continue Rocephin pt was started on IV fluconazole for yeast in her urine, continue ID consulted, appreciate recs -continue with Rocephin -discontinue Vancomycin -consider d/c of fluconazole -if no bacteremia on repeat blood cultures from 08/25, continue rocephin for 2 weeks Will continue fluconazole given jennifer in the urine on 2 urine Cultures Repeat blood Cx with NGTD, continue with rocephin for 2 weeks per ID recs Poor vascular access Extremity gangrene Was discharged previously with R IJ catheter due to poor IV access in setting of progressing/demarcating extremity gangrene with follow up at rehab, removed on this admission. Cx catheter tip pending On this admission, ED was able to achieve IV access in the left arm (two 20 gauge IVs in left arm currently) Monitor IV access in setting of progressing/demarcating gangrene currently Consider trial for PICC access once more Non occlusive thrombus in right IJ Patient already on anticoagulation Continue with Lovenox 70mg BID with warfarin transition Lovenox currently weight adjusted from previous 80mg as pt has since lost some weight per pharmacy INR currently 1.5 Increased warfarin dose to 10mg. R IJ catheter discontinued Extremity gangrene s/p leech therapy Pt with progressing/demarcating extremity gangrene Orthopedics consult placed for further recommendations this admission, appreciate recs. -Medical management -Antibiotics per infectious disease -Occupational Therapy -Pain control -No further orthopedic intervention at this time. -Plan to be to allow the areas to demarcate and future amputations. -The patient may follow-up with Dr. Lay as an outpatient. Ureteral stent status post cystoscopy and right retrograde pyelogram/right ureteral stent placement 07/26/2023 Currently still on Flomax Urology consulted-appreciate recs Hypokalemia Replete as needed Hypomagnesemia Replete as needed Atrial fibrillation with rapid ventricular response During recent admission - currently in normal sinus rhythm Continue metoprolol, diltiazem, digoxin On Lovenox to warfarin bridge Type 2 diabetes mellitus hgba1c of 7.1 in 07/2023 Holding Metformin Insulin sliding scale Diabetic diet Dyslipidemia Chronic, stable Continue statin HTN (hypertension) Chronic, stable Continue outpatient regimen Anemia Ongoing issue from recent admission but stable to improving Mood Continue Effexor GERD Continue ppi Diet: DMII DVT prophylaxis: On therapeutic Lovenox bridge with warfarin Dispo: PT/OT orders in CODE STATUS: Full code Admission and Anticipated Discharge Date Admission Date: August 25, 2023 Subjective Pt seen in follow up - had very complicated hospital course Currently treated for UTI, bacteremia Laying in bed in NAD Currently denies any fevers chills chest pain shortness of breath. Denies abdominal pain, nausea vomiting. Says she was feeling sick in her stomach when she came to the hospital, felt as having UTI, [id number] at the bedside said that she was helping her eat and patient was throwing up. Seems to be doing much better now. I contacted urology yesterday regarding CT abdomen pelvis obtained on admission. Will continue to monitor, and may repeat in about a week. Worked w/ PT today - says she became nauseated when worked with them. Review of Systems Review of Systems: All systems reviewed & are unremarkable except as noted in Subjective Physical Exam Physical Exam: General: Alert, oriented. 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 No murmurs appreciated Resp: Breath sounds clear bilaterally, no increased effort of breathing. Abdomen: Soft, nontender Extremities: gangrene noted on hands and feet bilaterally Results & Data Results & Data Vital Signs (Past 12 Hours) Vital Signs Temp Pulse Pulse Pulse Resp BP Pulse Ox 08/29/23 17:26 79 08/29/23 15:29 36.7 C 63 18 102/65 99 08/29/23 15:09 70 08/29/23 11:10 36.8 C 72 18 132/75 98 08/29/23 08:00 08/29/23 08:00 73 O2 Del Method 08/29/23 17:26 08/29/23 15:29 Room Air 08/29/23 15:09 08/29/23 11:10 Room Air 08/29/23 08:00 Room Air 08/29/23 08:00 Laboratory Results 08/29/23 08/29/23 08/29/23 Range/Units 16:20 11:38 07:33 WBC (4.8-10.8) K/ul RBC (4.20-5.40) M/uL Hgb (12.0-16.0) g/dl Hct (37.0-47.0) % MCV (80.0-100.0) fL MCH (25.0-34.0) pg MCHC (32.0-36.0) g/dL RDW Std Deviation (36.4-46.3) fL RDW Coeff of Mary (11.5-14.5) % Plt Count (130-400) K/uL MPV (9.4-12.4) fL PT (9.0-12.0) Seconds INR (0.9-1.1) Sodium (136-145) mmol/L Potassium (3.5-5.1) mmol/L Chloride (98-107) mmol/L Carbon Dioxide (21-32) mmol/L Anion Gap (3-11) BUN (6-23) mg/dl Creatinine (0.6-1.2) mg/dl Est Cr Clr Drug Dosing ml/min Est GFR ( Amer) ml/min Est GFR (Non-Af Amer) ml/min BUN/Creatinine Ratio (10-20) Glucose (70-99(Fasting)) mg/dl POC Glucose 136 H 125 H 140 H (70-99) mg/dl Calcium (8.6-10.3) mg/dl Phosphorus (2.5-4.9) mg/dl Magnesium (1.7-2.4) mg/dl 08/29/23 08/28/23 Range/Units 05:53 20:42 WBC 5.54 (4.8-10.8) K/ul RBC 2.98 L (4.20-5.40) M/uL Hgb 8.6 L (12.0-16.0) g/dl Hct 27.1 L (37.0-47.0) % MCV 90.9 (80.0-100.0) fL MCH 28.9 (25.0-34.0) pg MCHC 31.7 L (32.0-36.0) g/dL RDW Std Deviation 51.2 H (36.4-46.3) fL RDW Coeff of Mary 15.6 H (11.5-14.5) % Plt Count 289 (130-400) K/uL MPV 9.2 L (9.4-12.4) fL PT 16.4 H (9.0-12.0) Seconds INR 1.5 H (0.9-1.1) Sodium 138 (136-145) mmol/L Potassium 3.7 (3.5-5.1) mmol/L Chloride 106 (98-107) mmol/L Carbon Dioxide 26 (21-32) mmol/L Anion Gap 6 (3-11) BUN 8 (6-23) mg/dl Creatinine 0.57 L (0.6-1.2) mg/dl Est Cr Clr Drug Dosing 89.6 ml/min Est GFR ( Amer) 106.6 ml/min Est GFR (Non-Af Amer) 92.0 ml/min BUN/Creatinine Ratio 14.0 (10-20) Glucose 125 H (70-99(Fasting)) mg/dl POC Glucose 117 H (70-99) mg/dl Calcium 8.5 L (8.6-10.3) mg/dl Phosphorus 3.1 (2.5-4.9) mg/dl Magnesium 1.7 (1.7-2.4) mg/dl Medications Administered Current Inpatient Medications Atorvastatin Calcium (Atorvastatin 40 Mg Tab) 40 mg PO HS [facility] Stop: 09/24/23 20:59 Last Admin: 08/28/23 20:38 Dose: 40 mg Cyanocobalamin (Cyanocobalamin (B-12) 500 Mcg Tablet) 1,000 mcg PO QAM [facility] Stop: 09/25/23 08:59 Last Admin: 08/29/23 08:49 Dose: 1,000 mcg Dextrose (Dextrose 50% 50 Ml Syringe) 25 - 50 ml IV UD PRN; Protocol PRN Reason: Hypoglycemia Protocol Stop: 09/24/23 17:28 Digoxin (Digoxin 0.125 Mg Tab) 0.125 mg PO DAILY@1600 [facility] Stop: 09/24/23 17:59 Last Admin: 08/29/23 17:26 Dose: 0.125 mg Diltiazem HCl (Diltiazem Hcl 180 Mg Capcr) [facility]: 09/25/23 08:59 Last Admin: 08/29/23 08:48 Dose: 180 mg Enoxaparin Sodium (Enoxaparin 80 Mg/0.8 Ml Syr) 70 mg SQ Q12H [facility] Stop: 09/24/23 18:29 Last Admin: 08/29/23 17:26 Dose: 70 mg Glucagon (Glucagon For Inj 1 Mg Vial) 1 mg SQ UD PRN; Protocol PRN Reason: Hypoglycemia Protocol Stop: 09/24/23 17:28 Glucose (Glucose 10 Tab/Tube) 4 - 8 tab PO UD PRN; Protocol PRN Reason: Hypoglycemia Treatment Stop: 09/24/23 17:28 Glucose (Glucose 40% Gel 15 Gm Tube) 15 - 30 gm PO UD PRN; Protocol PRN Reason: Hypoglycemia Protocol Stop: 09/24/23 17:28 Ceftriaxone Sodium 2,000 mg/ (Dextrose) 50 mls @ 100 mls/hr IV Q24H [facility]; Protocol Stop: 09/09/23 13:59 Last Infusion: 08/29/23 13:50 Dose: Infused Fluconazole (Diflucan) 200 mg in 100 mls @ 100 mls/hr IV Q24H [facility] Stop: 09/04/23 19:59 Last Infusion: 08/28/23 21:14 Dose: Infused Insulin Aspart (Insulin Aspart Per Unit Charge) 0 units SC ACHS [facility] Stop: 09/24/23 20:59 Last Admin: 08/29/23 17:25 Dose: 2 units Lisinopril (Lisinopril 20 Mg Tab) 20 mg PO DAILY [facility] Stop: 09/25/23 08:59 Last Admin: 08/29/23 08:49 Dose: 20 mg Magnesium Oxide (Magnesium Oxide 400 Mg Tab) 400 mg PO QAM [facility] Stop: 09/27/23 08:59 Last Admin: 08/29/23 08:49 Dose: 400 mg Melatonin (Melatonin 3 Mg Tab) 3 mg PO HS PRN PRN Reason: sleep Stop: 09/24/23 17:27 Metoprolol Succinate (Metoprolol Succ 25mg Ext Rel Tab) 25 mg PO QAM [facility] Stop: 09/25/23 08:59 Last Admin: 08/29/23 08:49 Dose: 25 mg Miscellaneous (Carbohydrates For Hypoglycemia ) 15 - 30 gm PO UD PRN PRN Reason: Hypoglycemia Protocol Stop: 09/24/23 17:28 Pantoprazole Sodium (Pantoprazole 40 Mg Tab) 40 mg PO BIDM [facility] Stop: 09/25/23 07:59 Last Admin: 08/29/23 17:26 Dose: 40 mg Tamsulosin HCl (Tamsulosin Hcl 0.4 Mg Cap) 0.4 mg PO HS [facility] Stop: 09/24/23 20:59 Last Admin: 08/28/23 20:38 Dose: 0.4 mg Venlafaxine HCl (Venlafaxine Hcl Xr 150 Mg Capxr) 150 mg PO DAILY [facility] Stop: 09/25/23 08:59 Last Admin: 08/29/23 08:49 Dose: 150 mg Warfarin Sodium (Warfarin Sod 10 Mg Tab) 10 mg PO DAILY@1600 [facility] Stop: 09/27/23 15:59 Last Admin: 08/29/23 17:26 Dose: 10 mg (6) Type 2 diabetes mellitus Diabetes mellitus oysterman insulin use: without oysterman use Diabetes mellitus complication status: with other specified complication Qualified Code(s): E11.69 - Type 2 diabetes mellitus with other specified complication (9) HTN (hypertension) Hypertension type: primary hypertension Qualified Code(s): I10 - Essential (primary) hypertension (10) Anemia Anemia type: unspecified type Qualified Code(s): D64.9 - Anemia, unspecified
[2023-08-30 06:40] LABS: BUN Creatinine Ratio 15.8 (10-20); Calcium 8.6 mg/dl (8.6-10.3); Creatinine Clr Calc Pharmacy 89.6 ml/min; Est GFR (African American) 106.6 ml/min; Magnesium 1.7 mg/dl (1.7-2.4); Phosphorus 3.4 mg/dl (2.5-4.9)
[2023-08-30 06:52] LABS: INR 2.5 (0.9-1.1); Prothrombin Time 25.6 Seconds (9.0-12.0)
[2023-08-30 07:14] LABS: Potassium 3.4 mmol/L (3.5-5.1)
--- NOTE | 2023-08-30 07:18 | Hospitalist Progress Note ---
Date of Service August 30, 2023 Assessment & Plan (1) Bacteremia due to Gram-positive bacteria: (2) Acute UTI: (3) Hypokalemia: (4) Hypomagnesemia: (5) Ureteral stent present: (6) Type 2 diabetes mellitus: (7) Dry gangrene: (8) Dyslipidemia: (9) HTN (hypertension): (10) Anemia: (11) Atrial fibrillation with rapid ventricular response: Plan Pt is a 73yoF with a complicated PMHx significant for extremity gangrene s/p leech therapy developed during last admission (07/26/23-08/21) in the setting of septic shock due to urinary source, poor IV access in setting of continuously progressing/demarcating extremity gangrene, HTN, HLD, T2DM, HCV status posttreatment, anxiety/mood disorder admitted with bacteremia. Bacteremia Altered Mental Status Complicated UTI Pt presented to the ER on 08/24 with concerns for increasing baseline confusion. Was afebrile, WBC within normal limits, BP wnl. Not septic UA at that time concerning for infection, urine Cx x 2 grew jennifer Blood Cx x 2 drawn at that time and was pending. Treatment with Rocephin was started at that time Blood Cx x1 from 08/24 growing alpha strep, likely contaminant Repeat blood cx x2 ordered on 08/25. NGTD Was discharged previously with R IJ catheter due to poor IV access in setting of progressing/demarcating extremity gangrene with follow up at rehab, removed on admission. Cx catheter tip pending R ureteral stent in place from 07/26, urology consulted. Appreciate recs CT abd/pelvis - 1. Tiny focus of nonocclusive thrombus again noted abutting the catheter within the right internal jugular vein. 2. A few bibasilar linear densities favor subsegmental atelectasis. A pneumonia could also have a similar appearance but is considered less likely. 3. Stable 6 mm nodule/cyst within the right breast. 4. There is a 2.2 cm enhancing lesion within the left adductor muscle. This is indeterminate but may represent a hemangioma. Follow-up nonemergent dedicated MRI of the left thigh is recommended for further evaluation. 5. Cholelithiasis. 6. Heterogeneous enhancement within the right kidney and right perinephric enhancement has improved. This suggests a persistent right-sided pyelonephritis. 7. A 1.6 cm hypodense focus within the right kidney which is new from the 07/25/[address] Therefore, this could represent an area of scarring from the pyelonephritis. A small renal abscess or renal infarct could also have a similar appearance. Therefore, one week abdomen CT follow-up recommended to ensure resolution. 8. Urothelial thickening within the right renal collecting system and right ure ter persists. 9. A right ureteral stent is in good position. 10. A 4 mm stone within the proximal to mid right ureter is again seen adjacent to the stent. This has migrated a few centimeters distal compared to the prior study. 11. Fluid-filled large and small bowel. This could be due to a gastroenteritis/diarrheal illness. 12. No bowel wall thickening or obstruction. 13. Additional findings as described above. Urology contacted (08/28) re: CT scan - per [employer] message - small and did not appear to be a drainable fluid collection. Dr. Nicholas said if she is clinically improving then reimaging is probably not necessary. If not, can repeat ROBERTO or do a CT with contrast. Radiology said repeat in 1 week so could do that as a precaution, or sooner if she is not doing better. Echo ordered, noting unchanged mitral valve thickening from echo done during previous hospitalization on 07/26/23. Low suggestion of endocarditis at this time. Continue Rocephin pt was started on IV fluconazole for yeast in her urine, continue ID consulted, appreciate recs -continue with Rocephin -discontinue Vancomycin -consider d/c of fluconazole -if no bacteremia on repeat blood cultures from 08/25, continue rocephin for 2 weeks Will continue fluconazole given jennifer in the urine on 2 urine Cultures Repeat blood Cx with NGTD, continue with rocephin for 2 weeks per ID recs Poor vascular access Extremity gangrene Was discharged previously with R IJ catheter due to poor IV access in setting of progressing/demarcating extremity gangrene with follow up at rehab, removed on this admission. Cx catheter tip pending On this admission, ED was able to achieve IV access in the left arm (two 20 gauge IVs in left arm currently) Monitor IV access in setting of progressing/demarcating gangrene currently Consider trial for PICC access once more Non occlusive thrombus in right IJ Patient already on anticoagulation Continue with Lovenox 70mg BID with warfarin transition Lovenox currently weight adjusted from previous 80mg as pt has since lost some weight per pharmacy INR currently 1.5 Increased warfarin dose to 10mg. R IJ catheter discontinued Extremity gangrene s/p leech therapy Pt with progressing/demarcating extremity gangrene Orthopedics consult placed for further recommendations this admission, appreciate recs. -Medical management -Antibiotics per infectious disease -Occupational Therapy -Pain control -No further orthopedic intervention at this time. -Plan to be to allow the areas to demarcate and future amputations. -The patient may follow-up with Dr. Lay as an outpatient. Ureteral stent status post cystoscopy and right retrograde pyelogram/right ureteral stent placement 07/26/2023 Currently still on Flomax Urology consulted-appreciate recs Hypokalemia Replete as needed Hypomagnesemia Replete as needed Atrial fibrillation with rapid ventricular response During recent admission - currently in normal sinus rhythm Continue metoprolol, diltiazem, digoxin On Lovenox to warfarin bridge INR 2.5 - stop lovenox on 08/29 Type 2 diabetes mellitus hgba1c of 7.1 in 07/2023 Holding Metformin Insulin sliding scale Diabetic diet Dyslipidemia Chronic, stable Continue statin HTN (hypertension) Chronic, stable Continue outpatient regimen Anemia Ongoing issue from recent admission but stable to improving Mood Continue Effexor GERD Continue ppi Diet: DMII DVT prophylaxis: On therapeutic Lovenox bridge with warfarin Dispo: PT/OT orders in CODE STATUS: Full code Admission and Anticipated Discharge Date Admission Date: August 25, 2023 Subjective Pt seen in follow up - had very complicated hospital course Currently treated for UTI, bacteremia Laying in bed in NAD Currently denies any fevers chills chest pain shortness of breath. Denies abdominal pain, nausea vomiting. Says she was feeling sick in her stomach when she came to the hospital, felt as having UTI, [id number] at the bedside said that she was helping her eat and patient was throwing up. Seems to be doing much better now. Discussed w/ urology earlier regarding CT abdomen pelvis obtained on admission. Will continue to monitor, and may repeat in about a week. Worked w/ PT yesterday - says she became nauseated when worked with them. Sister present at the bedside and updated. INR 2.5 -> stopping lovenox Review of Systems Review of Systems: All systems reviewed & are unremarkable except as noted in Subjective Physical Exam Physical Exam: General: Alert, oriented. 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 No murmurs appreciated Resp: Breath sounds clear bilaterally, no increased effort of breathing. Abdomen: Soft, nontender Extremities: gangrene noted on hands and feet bilaterally Results & Data Results & Data Vital Signs (Past 12 Hours) Vital Signs Temp Pulse Pulse Resp BP Pulse Ox O2 Del Method 08/30/23 04:08 37.0 C 76 17 135/70 98 Room Air 08/30/23 00:06 37.2 C 80 17 131/68 100 Room Air 08/29/23 21:45 76 08/29/23 20:02 37.1 C 74 17 134/68 98 Room Air 08/29/23 19:45 Room Air Laboratory Results 08/30/23 08/29/23 08/29/23 Range/Units 05:51 21:22 16:20 PT 25.6 H (9.0-12.0) Seconds INR 2.5 H (0.9-1.1) Sodium 139 (136-145) mmol/L Potassium 3.4 L (3.5-5.1) mmol/L Chloride 105 (98-107) mmol/L Carbon Dioxide 25 (21-32) mmol/L Anion Gap 9 (3-11) BUN 9 (6-23) mg/dl Creatinine 0.57 L (0.6-1.2) mg/dl Est Cr Clr Drug Dosing 89.6 ml/min Est GFR ( Amer) 106.6 ml/min Est GFR (Non-Af Amer) 92.0 ml/min BUN/Creatinine Ratio 15.8 (10-20) Glucose 136 H (70-99(Fasting)) mg/dl POC Glucose 129 H 136 H (70-99) mg/dl Calcium 8.6 (8.6-10.3) mg/dl Phosphorus 3.4 (2.5-4.9) mg/dl Magnesium 1.7 (1.7-2.4) mg/dl 08/29/23 08/29/23 Range/Units 11:38 07:33 PT (9.0-12.0) Seconds INR (0.9-1.1) Sodium (136-145) mmol/L Potassium (3.5-5.1) mmol/L Chloride (98-107) mmol/L Carbon Dioxide (21-32) mmol/L Anion Gap (3-11) BUN (6-23) mg/dl Creatinine (0.6-1.2) mg/dl Est Cr Clr Drug Dosing ml/min Est GFR ( Amer) ml/min Est GFR (Non-Af Amer) ml/min BUN/Creatinine Ratio (10-20) Glucose (70-99(Fasting)) mg/dl POC Glucose 125 H 140 H (70-99) mg/dl Calcium (8.6-10.3) mg/dl Phosphorus (2.5-4.9) mg/dl Magnesium (1.7-2.4) mg/dl Medications Administered Current Inpatient Medications Atorvastatin Calcium (Atorvastatin 40 Mg Tab) 40 mg PO HS [facility] Stop: 09/24/23 20:59 Last Admin: 08/29/23 20:44 Dose: 40 mg Cyanocobalamin (Cyanocobalamin (B-12) 500 Mcg Tablet) 1,000 mcg PO QAM [facility] Stop: 09/25/23 08:59 Last Admin: 08/29/23 08:49 Dose: 1,000 mcg Dextrose (Dextrose 50% 50 Ml Syringe) 25 - 50 ml IV UD PRN; Protocol PRN Reason: Hypoglycemia Protocol Stop: 09/24/23 17:28 Digoxin (Digoxin 0.125 Mg Tab) 0.125 mg PO DAILY@1600 [facility] Stop: 09/24/23 17:59 Last Admin: 08/29/23 17:26 Dose: 0.125 mg Diltiazem HCl (Diltiazem Hcl 180 Mg Capcr) 180 mg PO QAM [facility] Stop: 09/25/23 08:59 Last Admin: 08/29/23 08:48 Dose: 180 mg Glucagon (Glucagon For Inj 1 Mg Vial) 1 mg SQ UD PRN; Protocol PRN Reason: Hypoglycemia Protocol Stop: 09/24/23 17:28 Glucose (Glucose 10 Tab/Tube) 4 - 8 tab PO UD PRN; Protocol PRN Reason: Hypoglycemia Treatment Stop: 09/24/23 17:28 Glucose (Glucose 40% Gel 15 Gm Tube) 15 - 30 gm PO UD PRN; Protocol PRN Reason: Hypoglycemia Protocol Stop: 09/24/23 17:28 Ceftriaxone Sodium 2,000 mg/ (Dextrose) 50 mls @ 100 mls/hr IV Q24H [facility]; Protocol Stop: 09/09/23 13:59 Last Infusion: 08/29/23 13:50 Dose: Infused Fluconazole (Diflucan) 200 mg in 100 mls @ 100 mls/hr IV Q24H [facility] Stop: 09/04/23 19:59 Last Infusion: 08/29/23 21:44 Dose: Infused Insulin Aspart (Insulin Aspart Per Unit Charge) 0 units SC ACHS [facility] Stop: 09/24/23 20:59 Last Admin: 08/29/23 21:30 Dose: Not Given Lisinopril (Lisinopril 20 Mg Tab) 20 mg PO DAILY [facility] Stop: 09/25/23 08:59 Last Admin: 08/29/23 08:49 Dose: 20 mg Magnesium Oxide (Magnesium Oxide 400 Mg Tab) 400 mg PO QAM [facility] Stop: 09/27/23 08:59 Last Admin: 08/29/23 08:49 Dose: 400 mg Melatonin (Melatonin 3 Mg Tab) 3 mg PO HS PRN PRN Reason: sleep Stop: 09/24/23 17:27 Metoprolol Succinate (Metoprolol Succ 25mg Ext Rel Tab) 25 mg PO QAM [facility] Stop: 09/25/23 08:59 Last Admin: 08/29/23 08:49 Dose: 25 mg Miscellaneous (Carbohydrates For Hypoglycemia ) 15 - 30 gm PO UD PRN PRN Reason: Hypoglycemia Protocol Stop: 09/24/23 17:28 Pantoprazole Sodium (Pantoprazole 40 Mg Tab) 40 mg PO BIDM [facility] Stop: 09/25/23 07:59 Last Admin: 08/29/23 17:26 Dose: 40 mg Tamsulosin HCl (Tamsulosin Hcl 0.4 Mg Cap) 0.4 mg PO HS [facility] Stop: 09/24/23 20:59 Last Admin: 08/29/23 20:44 Dose: 0.4 mg Venlafaxine HCl (Venlafaxine Hcl Xr 150 Mg Capxr) 150 mg PO DAILY [facility] Stop: 09/25/23 08:59 Last Admin: 08/29/23 08:49 Dose: 150 mg Warfarin Sodium (Warfarin Sod 6 Mg Tab) 6 mg PO DAILY@1600 [facility] Stop: 09/29/23 15:59 (6) Type 2 diabetes mellitus Diabetes mellitus complication status: with other specified complication Diabetes mellitus tank terminal gauger insulin use: without senior living use Qualified Code(s): E11.69 - Type 2 diabetes mellitus with other specified complication (9) HTN (hypertension) Hypertension type: primary hypertension Qualified Code(s): I10 - Essential (primary) hypertension (10) Anemia Anemia type: unspecified type Qualified Code(s): D64.9 - Anemia, unspecified
[2023-08-30] MEDS: WARFARIN SOD 6 MG TAB PO SCH (16:04)
[2023-08-31 06:53] LABS: BUN Creatinine Ratio 16.7 (10-20); Calcium 8.5 mg/dl (8.6-10.3); Creatinine Clr Calc Pharmacy 85.1 ml/min; Est GFR (African American) 104.8 ml/min; Est GFR (Non-African American) 90.4 ml/min; INR 3.8 (0.9-1.1); Potassium 3.5 mmol/L (3.5-5.1); Prothrombin Time 38.4 Seconds (9.0-12.0)
--- NOTE | 2023-08-31 09:06 | Hospitalist Progress Note ---
Date of Service August 31, 2023 Assessment & Plan (1) Bacteremia due to Gram-positive bacteria: (2) Acute UTI: (3) Hypokalemia: (4) Hypomagnesemia: (5) Ureteral stent present: (6) Type 2 diabetes mellitus: (7) Dry gangrene: (8) Dyslipidemia: (9) HTN (hypertension): (10) Anemia: (11) Atrial fibrillation with rapid ventricular response: Plan Pt is a 73yoF with a complicated PMHx significant for extremity gangrene s/p leech therapy developed during last admission (07/26/23-08/21) in the setting of septic shock due to urinary source, poor IV access in setting of continuously progressing/demarcating extremity gangrene, HTN, HLD, T2DM, HCV status posttreatment, anxiety/mood disorder admitted with bacteremia. Bacteremia Altered Mental Status Complicated UTI Pt presented to the ER on 08/24 with concerns for increasing baseline confusion. Was afebrile, WBC within normal limits, BP wnl. Not septic UA at that time concerning for infection, urine Cx x 2 grew jennifer Blood Cx x 2 drawn at that time and was pending. Treatment with Rocephin was started at that time Blood Cx x1 from 08/24 growing alpha strep, likely contaminant Repeat blood cx x2 ordered on 08/25. NGTD Was discharged previously with R IJ catheter due to poor IV access in setting of progressing/demarcating extremity gangrene with follow up at rehab, removed on admission. Cx catheter tip pending R ureteral stent in place from 07/26, urology consulted. Appreciate recs CT abd/pelvis - 1. Tiny focus of nonocclusive thrombus again noted abutting the catheter within the right internal jugular vein. 2. A few bibasilar linear densities favor subsegmental atelectasis. A pneumonia could also have a similar appearance but is considered less likely. 3. Stable 6 mm nodule/cyst within the right breast. 4. There is a 2.2 cm enhancing lesion within the left adductor muscle. This is indeterminate but may represent a hemangioma. Follow-up nonemergent dedicated MRI of the left thigh is recommended for further evaluation. 5. Cholelithiasis. 6. Heterogeneous enhancement within the right kidney and right perinephric enhancement has improved. This suggests a persistent right-sided pyelonephritis. 7. A 1.6 cm hypodense focus within the right kidney which is new from the 07/25/[address] Therefore, this could represent an area of scarring from the pyelonephritis. A small renal abscess or renal infarct could also have a similar appearance. Therefore, one week abdomen CT follow-up recommended to ensure resolution. 8. Urothelial thickening within the right renal collecting system and right ureter persists. 9. A right ureteral stent is in good position. 10. A 4 mm stone within the proximal to mid right ureter is again seen adjacent to the stent. This has migrated a few centimeters distal compared to the prior study. 11. Fluid-filled large and small bowel. This could be due to a gastroenteritis/diarrheal illness. 12. No bowel wall thickening or obstruction. 13. Additional findings as described above. Urology contacted (08/28) re: CT scan - per [employer] message - small and did not appear to be a drainable fluid collection. Dr. Nicholas said if she is clinically improving then reimaging is probably not necessary. If not, can repeat ROBERTO or do a CT with contrast. Radiology said repeat in 1 week so could do that as a precaution, or sooner if she is not doing better. Echo ordered, noting unchanged mitral valve thickening from echo done during previous hospitalization on 07/26/23. Low suggestion of endocarditis at this time. Continue Rocephin pt was started on IV fluconazole for yeast in her urine, continue ID consulted, appreciate recs -continue with Rocephin -discontinue Vancomycin -consider d/c of fluconazole -if no bacteremia on repeat blood cultures from 08/25, continue rocephin for 2 weeks Will continue fluconazole given jennifer in the urine on 2 urine Cultures Repeat blood Cx with NGTD, continue with rocephin for 2 weeks per ID recs Poor vascular access Extremity gangrene Was discharged previously with R IJ catheter due to poor IV access in setting of progressing/demarcating extremity gangrene with follow up at rehab, removed on this admission. Cx catheter tip pending On this admission, ED was able to achieve IV access in the left arm (two 20 gauge IVs in left arm currently) Monitor IV access in setting of progressing/demarcating gangrene currently Consider trial for PICC access once more Non occlusive thrombus in right IJ Patient already on anticoagulation Continue with Lovenox 70mg BID with warfarin transition Lovenox currently weight adjusted from previous 80mg as pt has since lost some weight per pharmacy INR currently 1.5 Increased warfarin dose to 10mg. R IJ catheter discontinued Extremity gangrene s/p leech therapy Pt with progressing/demarcating extremity gangrene Orthopedics consult placed for further recommendations this admission, appreciate recs. -Medical management -Antibiotics per infectious disease -Occupational Therapy -Pain control -No further orthopedic intervention at this time. -Plan to be to allow the areas to demarcate and future amputations. -The patient may follow-up with Dr. Lay as an outpatient. Ureteral stent status post cystoscopy and right retrograde pyelogram/right ureteral stent placement 07/26/2023 Currently still on Flomax Urology consulted-appreciate recs Hypokalemia Replete as needed Hypomagnesemia Replete as needed Atrial fibrillation with rapid ventricular response During recent admission - currently in normal sinus rhythm Continue metoprolol, diltiazem, digoxin On Lovenox to warfarin bridge INR therapeutic - stopped lovenox on 08/29 Type 2 diabetes mellitus hgba1c of 7.1 in 07/2023 Holding Metformin Insulin sliding scale Diabetic diet Dyslipidemia Chronic, stable Continue statin HTN (hypertension) Chronic, stable Continue outpatient regimen Anemia Ongoing issue from recent admission but stable to improving Mood Continue Effexor GERD Continue ppi Diet: DMII DVT prophylaxis: warfarin Dispo: PT/OT orders in CODE STATUS: Full code Admission and Anticipated Discharge Date Admission Date: August 25, 2023 Subjective Pt seen in follow up - had very complicated hospital course Currently treated for UTI, bacteremia Laying in bed in NAD Currently denies any fevers chills chest pain shortness of breath. Denies abdominal pain, nausea vomiting. Says she was feeling sick in her stomach when she came to the hospital, felt as having UTI, [id number] at the bedside said that she was helping her eat and patient was throwing up. Discussed w/ urology earlier regarding CT abdomen pelvis obtained on admission. Will continue to monitor, and may repeat in about a week. Worked w/ PT - says she became nauseated when worked with them. Yesterday she was sitting up in chair for an hour, and felt well, then vomitted. Sister present at the bedside yesterday and updated. INR therapeutic -> lovenox bridge stopped Review of Systems Review of Systems: All systems reviewed & are unremarkable except as noted in Subjective Physical Exam Physical Exam: General: Alert, oriented. 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 No murmurs appreciated Resp: Breath sounds clear bilaterally, no increased effort of breathing. Abdomen: Soft, nontender Extremities: gangrene noted on hands and feet bilaterally Results & Data Results & Data Vital Signs (Past 12 Hours) Vital Signs Temp Pulse Pulse Pulse Resp BP Pulse Ox 08/31/23 08:31 77 136/67 08/31/23 07:00 77 08/31/23 03:29 36.7 C 75 16 143/67 H 92 08/30/23 23:16 36.9 C 73 17 121/67 95 08/30/23 21:58 75 O2 Del Method 08/31/23 08:31 08/31/23 07:00 08/31/23 03:29 Room Air 08/30/23 23:16 Room Air 08/30/23 21:58 Medications Administered Current Inpatient Medications Atorvastatin Calcium (Atorvastatin 40 Mg Tab) 40 mg PO HS [facility] Stop: 09/24/23 20:59 Last Admin: 08/30/23 20:13 Dose: 40 mg Cyanocobalamin (Cyanocobalamin (B-12) 500 Mcg Tablet) 1,000 mcg PO QAM [facility] Stop: 09/25/23 08:59 Last Admin: 08/31/23 08:25 Dose: 1,000 mcg Dextrose (Dextrose 50% 50 Ml Syringe) 25 - 50 ml IV UD PRN; Protocol PRN Reason: Hypoglycemia Protocol Stop: 09/24/23 17:28 Digoxin (Digoxin 0.125 Mg Tab) 0.125 mg PO DAILY@1600 [facility] Stop: 09/24/23 17:59 Last Admin: 08/30/23 16:03 Dose: 0.125 mg Diltiazem HCl (Diltiazem Hcl 180 Mg Capcr) 180 mg PO QAM [facility] Stop: 09/25/23 08:59 Last Admin: 08/31/23 08:24 Dose: 180 mg Glucagon (Glucagon For Inj 1 Mg Vial) 1 mg SQ UD PRN; Protocol PRN Reason: Hypoglycemia Protocol Stop: 09/24/23 17:28 Glucose (Glucose 10 Tab/Tube) 4 - 8 tab PO UD PRN; Protocol PRN Reason: Hypoglycemia Treatment Stop: 09/24/23 17:28 Glucose (Glucose 40% Gel 15 Gm Tube) 15 - 30 gm PO UD PRN; Protocol PRN Reason: Hypoglycemia Protocol Stop: 09/24/23 17:28 Ceftriaxone Sodium 2,000 mg/ (Dextrose) 50 mls @ 100 mls/hr IV Q24H [facility]; Protocol Stop: 09/09/23 13:59 Last Infusion: 08/30/23 13:56 Dose: Infused Fluconazole (Diflucan) 200 mg in 100 mls @ 100 mls/hr IV Q24H [facility] Stop: 09/04/23 19:59 Last Infusion: 08/30/23 21:13 Dose: Infused Insulin Aspart (Insulin Aspart Per Unit Charge) 0 units SC ACHS [facility] Stop: 09/24/23 20:59 Last Admin: 08/31/23 08:20 Dose: 3 units Lisinopril (Lisinopril 20 Mg Tab) 20 mg PO DAILY [facility] Stop: 09/25/23 08:59 Last Admin: 08/31/23 08:25 Dose: 20 mg Magnesium Oxide (Magnesium Oxide 400 Mg Tab) 400 mg PO QAM [facility] Stop: 09/27/23 08:59 Last Admin: 08/31/23 08:24 Dose: 400 mg Melatonin (Melatonin 3 Mg Tab) 3 mg PO HS PRN PRN Reason: sleep Stop: 09/24/23 17:27 Metoprolol Succinate (Metoprolol Succ 25mg Ext Rel Tab) 25 mg PO QAM [facility] Stop: 09/25/23 08:59 Last Admin: 08/31/23 08:22 Dose: 25 mg Miscellaneous (Carbohydrates For Hypoglycemia ) 15 - 30 gm PO UD PRN PRN Reason: Hypoglycemia Protocol Stop: 09/24/23 17:28 Pantoprazole Sodium (Pantoprazole 40 Mg Tab) 40 mg PO BIDM [facility] Stop: 09/25/23 07:59 Last Admin: 08/31/23 08:22 Dose: 40 mg Tamsulosin HCl (Tamsulosin Hcl 0.4 Mg Cap) 0.4 mg PO HS [facility] Stop: 09/24/23 20:59 Last Admin: 08/30/23 20:13 Dose: 0.4 mg Venlafaxine HCl (Venlafaxine Hcl Xr 150 Mg Capxr) 150 mg PO DAILY [facility] Stop: 09/25/23 08:59 Last Admin: 08/31/23 08:25 Dose: 150 mg Warfarin Sodium (Warfarin Sod 6 Mg Tab) 6 mg PO DAILY@1600 [facility] Stop: 09/29/23 15:59 Last Admin: 08/30/23 16:04 Dose: 6 mg (6) Type 2 diabetes mellitus Diabetes mellitus complication status: with other specified complication Diabetes mellitus superintendent container terminal insulin use: without superintendent container terminal use Qualified Code(s): E11.69 - Type 2 diabetes mellitus with other specified complication (9) HTN (hypertension) Hypertension type: primary hypertension Qualified Code(s): I10 - Essential (primary) hypertension (10) Anemia Anemia type: unspecified type Qualified Code(s): D64.9 - Anemia, unspecified
[2023-09-01 06:58] LABS: Hematocrit (blood only) 25.9 % (37.0-47.0); Hemoglobin 8.2 g/dl (12.0-16.0); Mean Corpuscular Hemoglobin 28.4 pg (25.0-34.0); Mean Corpuscular Hgb Conc 31.7 g/dL (32.0-36.0); Mean Corpuscular Volume 89.6 fL (80.0-100.0); Mean Platelet Volume 9.5 fL (9.4-12.4); Platelet Count 290 K/uL (130-400); RDW Coefficient of Variation 15.8 % (11.5-14.5); RDW Standard Deviation 51.4 fL (36.4-46.3); Red Blood Count 2.89 M/uL (4.20-5.40); White Blood Count 6.44 K/ul (4.8-10.8)
[2023-09-01 07:32] LABS: Calcium 8.4 mg/dl (8.6-10.3); Magnesium 1.8 mg/dl (1.7-2.4); Potassium 3.7 mmol/L (3.5-5.1)
[2023-09-01 07:38] LABS: BUN Creatinine Ratio 16.7 (10-20); Creatinine Clr Calc Pharmacy 85.7 ml/min; Est GFR (African American) 104.8 ml/min; Est GFR (Non-African American) 90.4 ml/min; Phosphorus 3.8 mg/dl (2.5-4.9)
[2023-09-01 07:48] LABS: INR 3.6 (0.9-1.1)
--- NOTE | 2023-09-01 09:32 | Hospitalist Progress Note ---
Date of Service September 01, 2023 Assessment & Plan (1) Bacteremia due to Gram-positive bacteria: (2) Acute UTI: (3) Hypokalemia: (4) Hypomagnesemia: (5) Ureteral stent present: (6) Type 2 diabetes mellitus: (7) Dry gangrene: (8) Dyslipidemia: (9) HTN (hypertension): (10) Anemia: (11) Atrial fibrillation with rapid ventricular response: Plan Pt is a 73yoF with a complicated PMHx significant for extremity gangrene s/p leech therapy developed during last admission (07/26/23-08/21) in the setting of septic shock due to urinary source, poor IV access in setting of continuously progressing/demarcating extremity gangrene, HTN, HLD, T2DM, HCV status posttreatment, anxiety/mood disorder admitted with bacteremia. Bacteremia Altered Mental Status Complicated UTI Pt presented to the ER on 08/24 with concerns for increasing baseline confusion. Was afebrile, WBC within normal limits, BP wnl. Not septic UA at that time concerning for infection, urine Cx x 2 grew jennifer Blood Cx x 2 drawn at that time and was pending. Treatment with Rocephin was started at that time Blood Cx x1 from 08/24 growing alpha strep, likely contaminant Repeat blood cx x2 ordered on 08/25. NGTD Was discharged previously with R IJ catheter due to poor IV access in setting of progressing/demarcating extremity gangrene with follow up at rehab, removed on admission. Cx catheter tip pending R ureteral stent in place from 07/26, urology consulted. Appreciate recs CT abd/pelvis - 1. Tiny focus of nonocclusive thrombus again noted abutting the catheter within the right internal jugular vein. 2. A few bibasilar linear densities favor subsegmental atelectasis. A pneumonia could also have a similar appearance but is considered less likely. 3. Stable 6 mm nodule/cyst within the right breast. 4. There is a 2.2 cm enhancing lesion within the left adductor muscle. This is indeterminate but may represent a hemangioma. Follow-up nonemergent dedicated MRI of the left thigh is recommended for further evaluation. 5. Cholelithiasis. 6. Heterogeneous enhancement within the right kidney and right perinephric enhancement has improved. This suggests a persistent right-sided pyelonephritis. 7. A 1.6 cm hypodense focus within the right kidney which is new from the 07/25/[address] Therefore, this could represent an area of scarring from the pyelonephritis. A small renal abscess or renal infarct could also have a similar appearance. Therefore, one week abdomen CT follow-up recommended to ensure resolution. 8. Urothelial thickening within the right renal collecting system and right ureter persists. 9. A right ureteral stent is in good position. 10. A 4 mm stone within the proximal to mid right ureter is again seen adjacent to the stent. This has migrated a few centimeters distal compared to the prior study. 11. Fluid-filled large and small bowel. This could be due to a gastroenteritis/diarrheal illness. 12. No bowel wall thickening or obstruction. 13. Additional findings as described above. Urology contacted (08/28) re: CT scan - per [employer] MA[employer]GER message - small and did not appear to be a drainable fluid collection. Dr. Nicholas said if she is clinically improving then reimaging is probably not necessary. If not, can repeat ROBERTO or do a CT with contrast. Radiology said repeat in 1 week so could do that as a precaution, or sooner if she is not doing better. Will repeat CT scan Echo ordered, noting unchanged mitral valve thickening from echo done during previous hospitalization on 07/26/23. Low suggestion of endocarditis at this time. Continue Rocephin pt was started on IV fluconazole for yeast in her urine, continue ID consulted, appreciate recs -continue with Rocephin -discontinue Vancomycin -consider d/c of fluconazole -if no bacteremia on repeat blood cultures from 08/25, continue rocephin for 2 weeks Will continue fluconazole given jennifer in the urine on 2 urine Cultures Repeat blood Cx with NGTD, continue with rocephin for 2 weeks per ID recs Poor vascular access Extremity gangrene Was discharged previously with R IJ catheter due to poor IV access in setting of progressing/demarcating extremity gangrene with follow up at rehab, removed on this admission. Cx catheter tip pending On this admission, ED was able to achieve IV access in the left arm (two 20 gauge IVs in left arm currently) Monitor IV access in setting of progressing/demarcating gangrene currently Consider trial for PICC access once more Non occlusive thrombus in right IJ Patient already on anticoagulation Continue with Lovenox 70mg BID with warfarin transition Lovenox currently weight adjusted from previous 80mg as pt has since lost some weight per pharmacy INR currently 1.5 Increased warfarin dose to 10mg. R IJ catheter discontinued Extremity gangrene s/p leech therapy Pt with progressing/demarcating extremity gangrene Orthopedics consult placed for further recommendations this admission, appreciate recs. -Medical management -Antibiotics per infectious disease -Occupational Therapy -Pain control -No further orthopedic intervention at this time. -Plan to be to allow the areas to demarcate and future amputations. -The patient may follow-up with Dr. Lay as an outpatient. Ureteral stent status post cystoscopy and right retrograde pyelogram/right ureteral stent placement 07/26/2023 Currently still on Flomax Urology consulted-appreciate recs Hypokalemia Replete as needed Hypomagnesemia Replete as needed Atrial fibrillation with rapid ventricular response During recent admission - currently in normal sinus rhythm Continue metoprolol, diltiazem, digoxin On Lovenox to warfarin bridge INR therapeutic - stopped lovenox on 08/29 Type 2 diabetes mellitus hgba1c of 7.1 in 07/2023 Holding Metformin Insulin sliding scale Diabetic diet Dyslipidemia Chronic, stable Continue statin HTN (hypertension) Chronic, stable Continue outpatient regimen Anemia Ongoing issue from recent admission but stable to improving Mood Continue Effexor GERD Continue ppi Diet: DMII DVT prophylaxis: warfarin Dispo: PT/OT orders in CODE STATUS: Full code Admission and Anticipated Discharge Date Admission Date: August 25, 2023 Subjective Pt seen in follow up - had very complicated hospital course Currently treated for UTI, bacteremia Sitting up in chair in NAD Currently denies any fevers chills chest pain shortness of breath. Denies abdominal pain, nausea vomiting. Says she was feeling sick in her stomach when she came to the hospital, felt as having UTI, [id number] said that she was helping her eat and patient was thr owing up. Discussed w/ urology earlier regarding CT abdomen pelvis obtained on admission. Will repeat CT scan (1 week follow up). INR therapeutic -> lovenox bridge stopped Review of Systems Review of Systems: All systems reviewed & are unremarkable except as noted in Subjective Physical Exam Physical Exam: General: Alert, oriented. No acute distress Skin: gangrene noted on hands and feet bilaterally Psych: Appropriate mood and affect Neuro:difficulty with glass block bender, weakness HEENT: NC/AT, noted gangrene on nasal tip CV: RRR, Normal s1, s2. No murmurs appreciated Resp: Breath sounds clear bilaterally, no increased effort of breathing. Abdomen: Soft, nontender Extremities: gangrene noted on hands and feet bilaterally Results & Data Results & Data Vital Signs (Past 12 Hours) Vital Signs Temp Pulse Pulse Pulse Pulse Resp BP 09/01/23 07:49 36.7 C 71 19 09/01/23 07:00 71 09/01/23 02:54 36.7 C 67 16 108/58 L 08/31/23 23:16 36.8 C 70 16 125/58 L 08/31/23 22:53 71 BP Pulse Ox O2 Del Method 09/01/23 07:49 135/70 91 Room Air 09/01/23 07:00 09/01/23 02:54 97 Room Air 08/31/23 23:16 94 Room Air 08/31/23 22:53 Laboratory Results 09/01/23 09/01/23 08/31/23 Range/Units 07:44 05:38 20:14 WBC 6.44 (4.8-10.8) K/ul RBC 2.89 L (4.20-5.40) M/uL Hgb 8.2 L (12.0-16.0) g/dl Hct 25.9 L (37.0-47.0) % MCV 89.6 (80.0-100.0) fL MCH 28.4 (25.0-34.0) pg MCHC 31.7 L (32.0-36.0) g/dL RDW Std Deviation 51.4 H (36.4-46.3) fL RDW Coeff of Mary 15.8 H (11.5-14.5) % Plt Count 290 (130-400) K/uL MPV 9.5 (9.4-12.4) fL PT 36.0 H (9.0-12.0) Seconds INR 3.6 H (0.9-1.1) Sodium 138 (136-145) mmol/L Potassium 3.7 (3.5-5.1) mmol/L Chloride 105 (98-107) mmol/L Carbon Dioxide 29 (21-32) mmol/L Anion Gap 4 (3-11) BUN 10 (6-23) mg/dl Creatinine 0.60 (0.6-1.2) mg/dl Est Cr Clr Drug Dosing 85.7 ml/min Est GFR ( Amer) 104.8 ml/min Est GFR (Non-Af Amer) 90.4 ml/min BUN/Creatinine Ratio 16.7 (10-20) Glucose 134 H (70-99(Fasting)) mg/dl POC Glucose 152 H 144 H (70-99) mg/dl Calcium 8.4 L (8.6-10.3) mg/dl Phosphorus 3.8 (2.5-4.9) mg/dl Magnesium 1.8 (1.7-2.4) mg/dl Procalcitonin 0.03 (0-0.5) ng/ml 08/31/23 08/31/23 Range/Units 16:10 11:37 WBC (4.8-10.8) K/ul RBC (4.20-5.40) M/uL Hgb (12.0-16.0) g/dl Hct (37.0-47.0) % MCV (80.0-100.0) fL MCH (25.0-34.0) pg MCHC (32.0-36.0) g/dL RDW Std Deviation (36.4-46.3) fL RDW Coeff of Mary (11.5-14.5) % Plt Count (130-400) K/uL MPV (9.4-12.4) fL PT (9.0-12.0) Seconds INR (0.9-1.1) Sodium (136-145) mmol/L Potassium (3.5-5.1) mmol/L Chloride (98-107) mmol/L Carbon Dioxide (21-32) mmol/L Anion Gap (3-11) BUN (6-23) mg/dl Creatinine (0.6-1.2) mg/dl Est Cr Clr Drug Dosing ml/min Est GFR ( Amer) ml/min Est GFR (Non-Af Amer) ml/min BUN/Creatinine Ratio (10-20) Glucose (70-99(Fasting)) mg/dl POC Glucose 146 H 139 H (70-99) mg/dl Calcium (8.6-10.3) mg/dl Phosphorus (2.5-4.9) mg/dl Magnesium (1.7-2.4) mg/dl Procalcitonin (0-0.5) ng/ml Medications Administered Current Inpatient Medications Atorvastatin Calcium (Atorvastatin 40 Mg Tab) 40 mg PO HS [facility] Stop: 09/24/23 20:59 Last Admin: 08/31/23 20:13 Dose: 40 mg Cyanocobalamin (Cyanocobalamin (B-12) 500 Mcg Tablet) 1,000 mcg PO QAM [facility] Stop: 09/25/23 08:59 Last Admin: 09/01/23 08:44 Dose: 1,000 mcg Dextrose (Dextrose 50% 50 Ml Syringe) 25 - 50 ml IV UD PRN; Protocol PRN Reason: Hypoglycemia Protocol Stop: 09/24/23 17:28 Digoxin (Digoxin 0.125 Mg Tab) 0.125 mg PO DAILY@1600 [facility] Stop: 09/24/23 17:59 Last Admin: 08/31/23 16:14 Dose: 0.125 mg Diltiazem HCl (Diltiazem Hcl 180 Mg Capcr) 180 mg PO QAM [facility] Stop: 09/25/23 08:59 Last Admin: 09/01/23 08:44 Dose: 180 mg Glucagon (Glucagon For Inj 1 Mg Vial) 1 mg SQ UD PRN; Protocol PRN Reason: Hypoglycemia Protocol Stop: 09/24/23 17:28 Glucose (Glucose 10 Tab/Tube) 4 - 8 tab PO UD PRN; Protocol PRN Reason: Hypoglycemia Treatment Stop: 09/24/23 17:28 Glucose (Glucose 40% Gel 15 Gm Tube) 15 - 30 gm PO UD PRN; Protocol PRN Reason: Hypoglycemia Protocol Stop: 09/24/23 17:28 Ceftriaxone Sodium 2,000 mg/ (Dextrose) 50 mls @ 100 mls/hr IV Q24H [facility]; Protocol Stop: 09/09/23 13:59 Last Infusion: 08/31/23 16:00 Dose: Infused Fluconazole (Diflucan) 200 mg in 100 mls @ 100 mls/hr IV Q24H [facility] Stop: 09/04/23 19:59 Last Infusion: 08/31/23 21:13 Dose: Infused Insulin Aspart (Insulin Aspart Per Unit Charge) 0 units SC ACHS [facility] Stop: 09/24/23 20:59 Last Admin: 09/01/23 08:40 Dose: 2 units Lisinopril (Lisinopril 20 Mg Tab) 20 mg PO DAILY [facility] Stop: 09/25/23 08:59 Last Admin: 09/01/23 08:45 Dose: 20 mg Magnesium Oxide (Magnesium Oxide 400 Mg Tab) 400 mg PO QAM [facility] Stop: 09/27/23 08:59 Last Admin: 09/01/23 08:43 Dose: 400 mg Melatonin (Melatonin 3 Mg Tab) 3 mg PO HS PRN PRN Reason: sleep Stop: 09/24/23 17:27 Metoprolol Succinate (Metoprolol Succ 25mg Ext Rel Tab) 25 mg PO QAM [facility] Stop: 09/25/23 08:59 Last Admin: 09/01/23 08:42 Dose: 25 mg Miscellaneous (Carbohydrates For Hypoglycemia ) 15 - 30 gm PO UD PRN PRN Reason: Hypoglycemia Protocol Stop: 09/24/23 17:28 Pantoprazole Sodium (Pantoprazole 40 Mg Tab) 40 mg PO BIDM [facility] Stop: 09/25/23 07:59 Last Admin: 09/01/23 08:44 Dose: 40 mg Tamsulosin HCl (Tamsulosin Hcl 0.4 Mg Cap) 0.4 mg PO HS [facility] Stop: 09/24/23 20:59 Last Admin: 08/31/23 20:14 Dose: 0.4 mg Venlafaxine HCl (Venlafaxine Hcl Xr 150 Mg Capxr) 150 mg PO DAILY [facility] Stop: 09/25/23 08:59 Last Admin: 09/01/23 08:45 Dose: 150 mg Warfarin Sodium (Warfarin Sod 6 Mg Tab) 6 mg PO DAILY@1600 [facility] Stop: 09/29/23 15:59 Last Admin: 08/30/23 16:04 Dose: 6 mg (6) Type 2 diabetes mellitus Diabetes mellitus complication status: with other specified complication Diabetes mellitus buttermaker helper insulin use: without buttermaker helper use Qualified Code(s): E11.69 - Type 2 diabetes mellitus with other specified complication (9) HTN (hypertension) Hypertension type: primary hypertension Qualified Code(s): I10 - Essential (primary) hypertension (10) Anemia Anemia type: unspecified type Qualified Code(s): D64.9 - Anemia, unspecified
[2023-09-01] MEDS: OPTIRAY 320 500ml IV ONE (10:09)
--- NOTE | 2023-09-01 11:15 | CT Scan Report ---
ABDOMEN AND PELVIS CT WITH IV CONTRAST CT DOSE: 927.51 mGy.cm HISTORY: Acute right-sided flank pain follow up abnormal CT TECHNIQUE: Multiaxial CT images of the abdomen and pelvis were performed following the IV administrat ion of 89 cc of Optiray, A dose lowering technique was utilized adhering to the principles of ALARA. COMPARISON STUDY: CT 08/25/2023 FINDINGS: Linear bibasilar consolidation favors atelectasis. There is no free air. The heart is mildl y enlarged. Subcentimeter hypodensity of the anterior spleen is stable and likely benign. Unremarkabl e pancreas and adrenal glands. Cholelithiasis with borderline gallbladder wall thickening. Unremarkab le liver. Patent portal vein. 8 mm calcification of the left kidney on image 106. No hydronephrosis. There are a few cysts noted wi thin the bilateral kidneys. Stable 1.6 cm hypodense focus of the right kidney in image 123. Heterogen eous enhancement of the right kidney with persistent right-sided urothelial thickening and enhancemen t. Mild right-sided pelvocaliectasis with ureteral stent in place. There is distal migration of the 4 mm right ureteral calculus now present in the pelvis on image 271. A focus of air noted within the r ight renal collecting system. Decompressed urinary bladder with wall thickening and Joshi catheter in place. Atherosclerosis of the aorta without aneurysm. No lymphadenopathy. Hysterectomy. No bowel obstruction or bowel wall thickening. Mild colonic fecal retention. Noninflamed appendix. No acute fracture. IMPRESSION: 1. Persistent findings suggestive of right-sided pyelonephritis, pyelitis and ureteritis . 2. Satisfactory positioning of the right ureteral stent with further distal migration of the 4 mm rig ht ureteral calculus, now within the pelvis. 3. Unchanged 1.6 cm hypodense focus within the right kidney, possibly a small renal abscess. One to t wo-week follow-up renal ultrasound is recommended. 4. Cholelithiasis. 5. Additional findings as above. ACT 112: Negative or not required by law. The above report was generated using voice recognition software. It may contain grammatical, syntax o r spelling errors. Electronically signed by: Morteza Boogie M.D. 09/01/2023 11:13 AM
[2023-09-02 07:43] LABS: INR 2.8 (0.9-1.1); Prothrombin Time 28.7 Seconds (9.0-12.0)
--- NOTE | 2023-09-02 13:48 | Urology Progress Note ---
Date of Service September 02, 2023 Assessment & Plan (1) Complicated urinary tract infection: (2) Bacteremia due to Gram-positive bacteria: (3) Ureteral stent present: Plan Follow-up of complicated UTI, bacteremia, ?renal abscess Afebrile and hemodynamically stable. Labs 08/31 reviewedno leukocytosis and normal renal function. Blood cultures 08/24 - 1 of 4 with alpha strep not enterococcus; Repeat final and negative. Urine culture 08/24 and 08/25 with Florina albicans She is currently on ceftriaxone and fluconazole Continue with antibiotics/antifungals per infectious disease CT A/P on admission 08/25/23 demonstrated a 1.6 cm hypodense focus within the right kidney which is new from the 07/25/[address] Therefore, this could represent an area of scarring from the pyelonephritis. A small renal abscess or renal infarct could also have a similar appearance. Therefore, one week abdomen CT follow-up recommended to ensure resolution. Follow-up CT A/P 09/01/23 reviewed and again shows satisfactory position of the right ureteral stent and unchanged 1.6 cm hypodense focus within the right kidney, possibly a small renal abscess. A one to two-week follow-up renal ultrasound was recommended. The hypodense focus is small and unlikely to be a drainable fluid collection. Given she is stable and clinically improving, can continue to monitor for now. If she were to develop fevers or other acute changes, may need to consider reimaging and/or transfer for possible drainage. No acute intervention at this time Will plan stone treatment after acute infection has been treated appropriately Plan to follow-up outpatient with urology as scheduled to discuss definitive stone management will follow peripherally. Please call with any additional questions or concerns. Plan of care reviewed with Dr. Francis, on-call urologist. Admission and Anticipated Discharge Date Admission Date: August 25, 2023 Subjective Pt examined at bedside this AM. Awake, resting in bed on arrival. No acute distress. Denies f/c/n/v. Joshi draining clear yellow urine. Offered no additional complaints at time of exam. Review of Systems Constitutional: as per Subjective / HPI Genitourinary: as per Subjective / HPI Physical Exam Constitutional: no acute distress Respiratory: no respiratory distress and no labored breathing Musculoskeletal: Head/Neck/Chest: normocephalic Skin: Gangrene noted on b/l hands Neurologic: awake Psychiatric: Orientation: alert and oriented x 3 Results & Data Vital Signs (Past 12 Hours) Vital Signs Temp Pulse Resp BP BP Pulse Ox O2 Del Method 09/02/23 11:33 36.6 C 67 18 124/69 99 Room Air 09/02/23 08:09 36.6 C 72 18 111/58 L 94 Room Air 09/02/23 03:00 36.7 C 71 18 105/57 L 95 Room Air PG Care Time/CCT Total # of Minutes Spent Total Time Spent with Patient: Total time spent is greater than 50% in coordination of care (as documented) at patient's floor/unit and/or counseling patient: Coding Level of Care Code 27648 SUB INP/OBS CARE 2/35MIN Diagnoses Complicated urinary tract infection N39.0 Bacteremia due to Gram-positive bacteria R78.81 Ureteral stent present Z96.0
[2023-09-02] MEDS ORDERED: FLUCONAZOLE 100 MG TAB PO ONE (17:28)
--- NOTE | 2023-09-02 17:31 | Hospitalist Progress Note ---
Date of Service September 02, 2023 Assessment & Plan (1) Bacteremia due to Gram-positive bacteria: (2) Acute UTI: (3) Hypokalemia: (4) Hypomagnesemia: (5) Ureteral stent present: (6) Type 2 diabetes mellitus: (7) Dry gangrene: (8) Dyslipidemia: (9) HTN (hypertension): (10) Anemia: (11) Atrial fibrillation with rapid ventricular response: Plan Pt is a 73yoF with a complicated PMHx significant for extremity gangrene s/p leech therapy developed during last admission (07/26/23-08/21) in the setting of septic shock due to urinary source, poor IV access in setting of continuously progressing/demarcating extremity gangrene, HTN, HLD, T2DM, HCV status posttreatment, anxiety/mood disorder admitted with bacteremia. Bacteremia Altered Mental Status Complicated UTI Pt presented to the ER on 08/24 with concerns for increasing baseline confusion. Was afebrile, WBC within normal limits, BP wnl. Not septic UA at that time concerning for infection, urine Cx x 2 grew jennifer Blood Cx x 2 drawn at that time and was pending. Treatment with Rocephin was started at that time Blood Cx x1 from 08/24 growing alpha strep, likely contaminant Repeat blood cx x2 ordered on 08/25. NGTD Was discharged previously with R IJ catheter due to poor IV access in setting of progressing/demarcating extremity gangrene with follow up at rehab, removed on admission. Cx catheter tip pending R ureteral stent in place from 07/26, urology consulted. Appreciate recs CT abd/pelvis - 1. Tiny focus of nonocclusive thrombus again noted abutting the catheter within the right internal jugular vein. 2. A few bibasilar linear densities favor subsegmental atelectasis. A pneumonia could also have a similar appearance but is considered less likely. 3. Stable 6 mm nodule/cyst within the right breast. 4. There is a 2.2 cm enhancing lesion within the left adductor muscle. This is indeterminate but may represent a hemangioma. Follow-up nonemergent dedicated MRI of the left thigh is recommended for further evaluation. 5. Cholelithiasis. 6. Heterogeneous enhancement within the right kidney and right perinephric enhancement has improved. This suggests a persistent right-sided pyelonephritis. 7. A 1.6 cm hypodense focus within the right kidney which is new from the 07/25/[address] Therefore, this could represent an area of scarring from the pyelonephritis. A small renal abscess or renal infarct could also have a similar appearance. Therefore, one week abdomen CT follow-up recommended to ensure resolution. 8. Urothelial thickening within the right renal collecting system and right ureter persists. 9. A right ureteral stent is in good position. 10. A 4 mm stone within the proximal to mid right ureter is again seen adjacent to the stent. This has migrated a few centimeters distal compared to the prior study. 11. Fluid-filled large and small bowel. This could be due to a gastroenteritis/diarrheal illness. 12. No bowel wall thickening or obstruction. 13. Additional findings as described above. Urology contacted (08/28) re: CT scan - per [employer] message - small and did not appear to be a drainable fluid collection. Dr. Nicholas said if she is clinically improving then reimaging is probably not necessary. If not, can repeat ROBERTO or do a CT with contrast. Radiology said repeat in 1 week so could do that as a precaution, or sooner if she is not doing better. Repeated CT scan (09/01/2023) - 1. Persistent findings suggestive of right-sided pyelonephritis, pyelitis and ureteritis . 2. Satisfactory positioning of the right ureteral stent with further distal migration of the 4 mm right ureteral calculus, now within the pelvis. 3. Unchanged 1.6 cm hypodense focus within the right kidney, possibly a small renal abscess. One to two-week follow-up renal ultrasound is recommended. 4. Cholelithiasis. Contacted urology on 08/31 - pt may need IR for poss. small abscess drainage. 09/02/2023 - IR - abscess too small for drainage -> contacted ID for further recommendations Echo ordered, noting unchanged mitral valve thickening from echo done during previous hospitalization on 07/26/23. Low suggestion of endocarditis at this time. Continue Rocephin pt was started on IV fluconazole for yeast in her urine, continue ID consulted, appreciate recs -continue with Rocephin -discontinue Vancomycin -consider d/c of fluconazole -if no bacteremia on repeat blood cultures from 08/25, continue rocephin for 2 weeks Will continue fluconazole given jennifer in the urine on 2 urine Cultures Repeat blood Cx with NGTD, continue with rocephin for 2 weeks per ID recs 09/01 contacted ID regarding repeat CT scan and patient's overall clinical course. Recommend to continue Rocephin, and fluconazole. Increase fluconazole to 400. Will need repeat imaging in 3-4 weeks. Poor vascular access Extremity gangrene Was discharged previously with R IJ catheter due to poor IV access in setting of progressing/demarcating extremity gangrene with follow up at rehab, removed on this admission. Cx catheter tip pending On this admission, ED was able to achieve IV access in the left arm (two 20 gauge IVs in left arm currently) Monitor IV access in setting of progressing/demarcating gangrene currently Consider trial for PICC access once more Non occlusive thrombus in right IJ Patient already on anticoagulation Continue with Lovenox 70mg BID with warfarin transition Lovenox currently weight adjusted from previous 80mg as pt has since lost some weight per pharmacy INR currently 1.5 Increased warfarin dose to 10mg. R IJ catheter discontinued Extremity gangrene s/p leech therapy Pt with progressing/demarcating extremity gangrene Orthopedics consult placed for further recommendations this admission, appreciate recs. -Medical management -Antibiotics per infectious disease -Occupational Therapy -Pain control -No further orthopedic intervention at this time. -Plan to be to allow the areas to demarcate and future amputations. -The patient may follow-up with Dr. Lay as an outpatient. Ureteral stent status post cystoscopy and right retrograde pyelogram/right ureteral stent placement 07/26/2023 Currently still on Flomax Urology consulted-appreciate recs Hypokalemia Replete as needed Hypomagnesemia Replete as needed Atrial fibrillation with rapid ventricular response During recent admission - currently in normal sinus rhythm Continue metoprolol, diltiazem, digoxin On Lovenox to warfarin bridge INR therapeutic - stopped lovenox on 08/29 Type 2 diabetes mellitus hgba1c of 7.1 in 07/2023 Holding Metformin Insulin sliding scale Diabetic diet Dyslipidemia Chronic, stable Continue statin HTN (hypertension) Chronic, stable Continue outpatient regimen Anemia Ongoing issue from recent admission but stable to improving Mood Continue Effexor GERD Continue ppi Diet: DMII DVT prophylaxis: warfarin Dispo: PT/OT orders in CODE STATUS: Full code Admission and Anticipated Discharge Date Admission Date: August 25, 2023 Subjective Pt seen in follow up - had very complicated hospital course Currently treated for UTI, bacteremia Sitting up in chair in NAD Currently denies any fevers chills chest pain shortness of breath. Denies abdominal pain, nausea vomiting. Says she was feeling sick in her stomach when she came to the hospital, felt as having UTI, [id number] said that she was helping her eat and patient was throwing up. Discussed w/ urology earlier regarding CT abdomen pelvis obtained on admission. Repeated CT scan (1 week follow up) and discussed with urology, IR (transfer center) and ID. Urology - may need IR IR ([facility] as pt's insurance does not support for transfer to [facility]) - abscess is small - can't drain at this time ID - continue with Rocephin and fluconazole - increase fluconazole to 400. Review of Systems Review of Systems: All systems reviewed & are unremarkable except as noted in Subjective Physical Exam Physical Exam: General: Alert, oriented. No acute distress Skin: gangrene noted on hands and feet bilaterally Psych: Appropriate mood and affect Neuro:difficulty with heritage consultant, weakness HEENT: NC/AT, noted gangrene on nasal tip CV: RRR, Normal s1, s2. No murmurs appreciated Resp: Breath sounds clear bilaterally, no increased effort of breathing. Abdomen: Soft, nontender Extremities: gangrene noted on hands and feet bilaterally Results & Data Results & Data Vital Signs (Past 12 Hours) Vital Signs Temp Pulse Pulse Resp BP Pulse Ox O2 Del Method 09/02/23 14:58 97 H 09/02/23 11:33 36.6 C 67 18 124/69 99 Room Air 09/02/23 08:09 36.6 C 72 18 111/58 L 94 Room Air Medications Administered Current Inpatient Medications Atorvastatin Calcium (Atorvastatin 40 Mg Tab) 40 mg PO HS NILDA Stop: 09/24/23 20:59 Last Admin: 09/01/23 20:49 Dose: 40 mg Cyanocobalamin (Cyanocobalamin (B-12) 500 Mcg Tablet) 1,000 mcg PO QAM NILDA Stop: 09/25/23 08:59 Last Admin: 09/02/23 09:34 Dose: 1,000 mcg Dextrose (Dextrose 50% 50 Ml Syringe) 25 - 50 ml IV UD PRN; Protocol PRN Reason: Hypoglycemia Protocol Stop: 09/24/23 17:28 Digoxin (Digoxin 0.125 Mg Tab) 0.125 mg PO DAILY@1600 [facility] Stop: 09/24/23 17:59 Last Admin: 09/02/23 15:52 Dose: 0.125 mg Diltiazem HCl (Diltiazem Hcl 180 Mg Capcr) 180 mg PO QAM NILDA Stop: 09/25/23 08:59 Last Admin: 09/02/23 09:34 Dose: 180 mg Fluconazole (Fluconazole 100 Mg Tab) 400 mg PO QAM ONE Stop: 09/02/23 17:26 Fluconazole (Fluconazole 100 Mg Tab) 200 mg PO NOW ONE Stop: 09/02/23 17:29 Glucagon (Glucagon For Inj 1 Mg Vial) 1 mg SQ UD PRN; Protocol PRN Reason: Hypoglycemia Protocol Stop: 09/24/23 17:28 Glucose (Glucose 10 Tab/Tube) 4 - 8 tab PO UD PRN; Protocol PRN Reason: Hypoglycemia Treatment Stop: 09/24/23 17:28 Glucose (Glucose 40% Gel 15 Gm Tube) 15 - 30 gm PO UD PRN; Protocol PRN Reason: Hypoglycemia Protocol Stop: 09/24/23 17:28 Ceftriaxone Sodium 2,000 mg/ (Dextrose) 50 mls @ 100 mls/hr IV Q24H [facility]; Protocol Stop: 09/09/23 13:59 Last Infusion: 09/02/23 13:10 Dose: Infused Fluconazole (Diflucan) 200 mg in 100 mls @ 100 mls/hr IV Q24H [facility] Stop: 09/04/23 19:59 Last Infusion: 09/01/23 21:50 Dose: Infused Insulin Aspart (Insulin Aspart Per Unit Charge) 0 units SC ACHS NILDA Stop: 09/24/23 20:59 Last Admin: 09/02/23 17:15 Dose: 6 units Lactobacillus Acidophilus (Advanced Probiotic 650 Mg Capsule) 2 cap PO DAILY NILDA Stop: 10/02/23 17:29 Lisinopril (Lisinopril 20 Mg Tab) 20 mg PO DAILY [facility] Stop: 09/25/23 08:59 Last Admin: 09/02/23 09:34 Dose: 20 mg Magnesium Oxide (Magnesium Oxide 400 Mg Tab) 400 mg PO QAM NILDA Stop: 09/27/23 08:59 Last Admin: 09/02/23 09:33 Dose: 400 mg Melatonin (Melatonin 3 Mg Tab) 3 mg PO HS PRN PRN Reason: sleep Stop: 09/24/23 17:27 Metoprolol Succinate (Metoprolol Succ 25mg Ext Rel Tab) 25 mg PO QAM [facility] Stop: 09/25/23 08:59 Last Admin: 09/02/23 09:33 Dose: 25 mg Miscellaneous (Carbohydrates For Hypoglycemia ) 15 - 30 gm PO UD PRN PRN Reason: Hypoglycemia Protocol Stop: 09/24/23 17:28 Pantoprazole Sodium (Pantoprazole 40 Mg Tab) 40 mg PO BIDM NILDA Stop: 09/25/23 07:59 Last Admin: 09/02/23 07:53 Dose: 40 mg Tamsulosin HCl (Tamsulosin Hcl 0.4 Mg Cap) 0.4 mg PO HS [facility] Stop: 09/24/23 20:59 Last Admin: 09/01/23 20:49 Dose: 0.4 mg Venlafaxine HCl (Venlafaxine Hcl Xr 150 Mg Capxr) 150 mg PO DAILY NILDA Stop: 09/25/23 08:59 Last Admin: 09/02/23 09:33 Dose: 150 mg Warfarin Sodium (Warfarin Sod 6 Mg Tab) 6 mg PO DAILY@1600 [facility] Stop: 09/29/23 15:59 Last Admin: 08/30/23 16:04 Dose: 6 mg (6) Type 2 diabetes mellitus Diabetes mellitus complication status: with other specified complication Diabetes mellitus intermodal customer service insulin use: without intermodal customer service use Qualified Code(s): E11.69 - Type 2 diabetes mellitus with other specified complication (9) HTN (hypertension) Hypertension type: primary hypertension Qualified Code(s): I10 - Essential (primary) hypertension (10) Anemia Anemia type: unspecified type Qualified Code(s): D64.9 - Anemia, unspecified
[2023-09-02] MEDS ORDERED: WARFARIN SOD 4 MG TAB PO SCH (18:00)
[2023-09-02] MEDS: ADVANCED PROBIOTIC 625 MG CAPSULE PO SCH (18:13)
[2023-09-02] MEDS: FLUCONAZOLE 100 MG TAB PO SCH (18:34)
[2023-09-02] MEDS: WARFARIN SOD 4 MG TAB PO SCH (18:34)
[2023-09-03 07:01] LABS: Hemoglobin 8.5 g/dl (12.0-16.0); Mean Corpuscular Hemoglobin 28.5 pg (25.0-34.0); Mean Corpuscular Hgb Conc 31.5 g/dL (32.0-36.0); Mean Corpuscular Volume 90.6 fL (80.0-100.0); Mean Platelet Volume 9.6 fL (9.4-12.4); Platelet Count 287 K/uL (130-400); RDW Coefficient of Variation 15.4 % (11.5-14.5); RDW Standard Deviation 50.7 fL (36.4-46.3); Red Blood Count 2.98 M/uL (4.20-5.40)
[2023-09-03 07:25] LABS: BUN Creatinine Ratio 18.6 (10-20); Calcium 8.6 mg/dl (8.6-10.3); Creatinine Clr Calc Pharmacy 87.5 ml/min; Est GFR (African American) 105.4 ml/min; Est GFR (Non-African American) 90.9 ml/min; Magnesium 1.8 mg/dl (1.7-2.4); Phosphorus 3.6 mg/dl (2.5-4.9); Potassium 4.1 mmol/L (3.5-5.1)
[2023-09-03 07:38] LABS: INR 2.6 (0.9-1.1); Prothrombin Time 26.8 Seconds (9.0-12.0)
--- NOTE | 2023-09-03 10:40 | Hospitalist Progress Note ---
Date of Service September 03, 2023 Assessment & Plan (1) Bacteremia due to Gram-positive bacteria: (2) Acute UTI: (3) Hypokalemia: (4) Hypomagnesemia: (5) Ureteral stent present: (6) Type 2 diabetes mellitus: (7) Dry gangrene: (8) Dyslipidemia: (9) HTN (hypertension): (10) Anemia: (11) Atrial fibrillation with rapid ventricular response: Plan Pt is a 73yoF with a complicated PMHx significant for extremity gangrene s/p leech therapy developed during last admission (07/26/23-08/21) in the setting of septic shock due to urinary source, poor IV access in setting of continuously progressing/demarcating extremity gangrene, HTN, HLD, T2DM, HCV status posttreatment, anxiety/mood disorder admitted with bacteremia. Bacteremia Altered Mental Status Complicated UTI Pt presented to the ER on 08/24 with concerns for increasing baseline confusion. Was afebrile, WBC within normal limits, BP wnl. Not septic UA at that time concerning for infection, urine Cx x 2 grew jennifer Blood Cx x 2 drawn at that time and was pending. Treatment with Rocephin was started at that time Blood Cx x1 from 08/24 growing alpha strep, likely contaminant Repeat blood cx x2 ordered on 08/25. NGTD Was discharged previously with R IJ catheter due to poor IV access in setting of progressing/demarcating extremity gangrene with follow up at rehab, removed on admission. Cx catheter tip pending R ureteral stent in place from 07/26, urology consulted. Appreciate recs CT abd/pelvis - 1. Tiny focus of nonocclusive thrombus again noted abutting the catheter within the right internal jugular vein. 2. A few bibasilar linear densities favor subsegmental atelectasis. A pneumonia could also have a similar appearance but is considered less likely. 3. Stable 6 mm nodule/cyst within the right breast. 4. There is a 2.2 cm enhancing lesion within the left adductor muscle. This is indeterminate but may represent a hemangioma. Follow-up nonemergent dedicated MRI of the left thigh is recommended for further evaluation. 5. Cholelithiasis. 6. Heterogeneous enhancement within the right kidney and right perinephric enhancement has improved. This suggests a persistent right-sided pyelonephritis. 7. A 1.6 cm hypodense focus within the right kidney which is new from the 07/25/[address] Therefore, this could represent an area of scarring from the pyelonephritis. A small renal abscess or renal infarct could also have a similar appearance. Therefore, one week abdomen CT follow-up recommended to ensure resolution. 8. Urothelial thickening within the right renal collecting system and right ureter persists. 9. A right ureteral stent is in good position. 10. A 4 mm stone within the proximal to mid right ureter is again seen adjacent to the stent. This has migrated a few centimeters distal compared to the prior study. 11. Fluid-filled large and small bowel. This could be due to a gastroenteritis/diarrheal illness. 12. No bowel wall thickening or obstruction. 13. Additional findings as described above. Urology contacted (08/28) re: CT scan - per [employer] message - small and did not appear to be a drainable fluid collection. Dr. Nicholas said if she is clinically improving then reimaging is probably not necessary. If not, can repeat ROBERTO or do a CT with contrast. Radiology said repeat in 1 week so could do that as a precaution, or sooner if she is not doing better. Repeated CT scan (09/01/2023) - 1. Persistent findings suggestive of right-sided pyelonephritis, pyelitis and ureteritis . 2. Satisfactory positioning of the right ureteral stent with further distal migration of the 4 mm right ureteral calculus, now within the pelvis. 3. Unchanged 1.6 cm hypodense focus within the right kidney, possibly a small renal abscess. One to two-week follow-up renal ultrasound is recommended. 4. Cholelithiasis. Contacted urology on 08/31 - pt may need IR for poss. small abscess drainage. 09/02/2023 - IR - abscess too small for drainage -> contacted ID for further recommendations Echo ordered, noting unchanged mitral valve thickening from echo done during previous hospitalization on 07/26/23. Low suggestion of endocarditis at this time. Continue Rocephin pt was started on IV fluconazole for yeast in her urine, continue ID consulted, appreciate recs -continue with Rocephin -discontinue Vancomycin -consider d/c of fluconazole -if no bacteremia on repeat blood cultures from 08/25, continue rocephin for 2 weeks Will continue fluconazole given jennifer in the urine on 2 urine Cultures Repeat blood Cx with NGTD, continue with rocephin for 2 weeks per ID recs 09/01 contacted ID regarding repeat CT scan and patient's overall clinical course. Recommend to continue Rocephin, and fluconazole. Increase fluconazole to 400. Will need repeat imaging in 2 weeks. Plan - I would recommend continuing with IV ceftriaxone at 2g IV daily until 09/08/2023 (to complete treatment for bacteremia), then change to Ceftriaxone 1 g IV daily (to continue treatment for renal abscess) for a total duration of 3 weeks with anticipated end date of 09/22/2023. - Since the repeat CT abd/pelvis showed persistent Rt pyelonephritis/abscess, I would be inclined to treat the jennifer in the urine. Therefore, continue on oral Fluconazole 400 mg PO/IV daily until 09/22/2023. - Please repeat CT scan renal in 2 weeks to F/U on the status of the Rt renal abscess. Poor vascular access Extremity gangrene Was discharged previously with R IJ catheter due to poor IV access in setting of progressing/demarcating extremity gangrene with follow up at rehab, removed on this admission. Cx catheter tip pending On this admission, ED was able to achieve IV access in the left arm (two 20 gauge IVs in left arm currently) Monitor IV access in setting of progressing/demarcating gangrene currently Consider trial for PICC access once more Non occlusive thrombus in right IJ Patient already on anticoagulation Continue with Lovenox 70mg BID with warfarin transition Lovenox currently weight adjusted from previous 80mg as pt has since lost some weight per pharmacy INR currently 1.5 Increased warfarin dose to 10mg. R IJ catheter discontinued Extremity gangrene s/p leech therapy Pt with progressing/demarcating extremity gangrene Orthopedics consult placed for further recommendations this admission, appreciate recs. -Medical management -Antibiotics per infectious disease -Occupational Therapy -Pain control -No further orthopedic intervention at this time. -Plan to be to allow the areas to demarcate and future amputations. -The patient may follow-up with Dr. Lay as an outpatient. Ureteral stent status post cystoscopy and right retrograde pyelogram/right ureteral stent placement 07/26/2023 Currently still on Flomax Urology consulted-appreciate recs Hypokalemia Replete as needed Hypomagnesemia Replete as needed Atrial fibrillation with rapid ventricular response During recent admission - currently in normal sinus rhythm Continue metoprolol, diltiazem, digoxin On Lovenox to warfarin bridge INR therapeutic - stopped lovenox on 08/29 Type 2 diabetes mellitus hgba1c of 7.1 in 07/2023 Holding Metformin Insulin sliding scale Diabetic diet Dyslipidemia Chronic, stable Continue statin HTN (hypertension) Chronic, stable Continue outpatient regimen Anemia Ongoing issue from recent admission but stable to improving Mood Continue Effexor GERD Continue ppi Diet: DMII DVT prophylaxis: warfarin Dispo: PT/OT orders in CODE STATUS: Full code Admission and Anticipated Discharge Date Admission Date: August 25, 2023 Subjective Pt seen in follow up - had very complicated hospital course Currently treated for UTI, bacteremia Sitting up in chair in NAD Currently denies any fevers chills chest pain shortness of breath. Denies abdominal pain, nausea vomiting. Says she was feeling sick in her stomach when she came to the hospital, felt as having UTI, [id number] said that she was helping her eat and patient was throwing up. Discussed w/ urology earlier regarding CT abdomen pelvis obtained on admission. Repeated CT scan (1 week follow up) and discussed with urology, IR (transfer center) and ID. Urology - may need IR IR ([facility] as pt's insurance does not support for transfer to [facility]) - abscess is small - can't drain at this time ID - continue with Rocephin and fluconazole - increase fluconazole to 400. Review of Systems Review of Systems: All systems reviewed & are unremarkable except as noted in Subjective Physical Exam Physical Exam: General: Alert, oriented. 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 No murmurs appreciated Resp: Breath sounds clear bilaterally, no increased effort of breathing. Abdomen: Soft, nontender Extremities: gangrene noted on hands and feet bilaterally Results & Data Results & Data Vital Signs (Past 12 Hours) Vital Signs Temp Pulse Pulse Resp BP Pulse Ox O2 Del Method 09/03/23 08:09 36.6 C 74 19 133/70 93 Room Air 09/03/23 08:00 73 09/03/23 02:53 36.6 C 69 18 115/53 L 97 Room Air 09/02/23 23:12 36.6 C 67 16 129/71 100 Room Air Laboratory Results 09/03/23 09/03/23 09/02/23 Range/Units 07:40 05:40 20:53 WBC 6.20 (4.8-10.8) K/ul RBC 2.98 L (4.20-5.40) M/uL Hgb 8.5 L (12.0-16.0) g/dl Hct 27.0 L (37.0-47.0) % MCV 90.6 (80.0-100.0) fL MCH 28.5 (25.0-34.0) pg MCHC 31.5 L (32.0-36.0) g/dL RDW Std Deviation 50.7 H (36.4-46.3) fL RDW Coeff of Mary 15.4 H (11.5-14.5) % Plt Count 287 (130-400) K/uL MPV 9.6 (9.4-12.4) fL PT 26.8 H (9.0-12.0) Seconds INR 2.6 H (0.9-1.1) Sodium 139 (136-145) mmol/L Potassium 4.1 (3.5-5.1) mmol/L Chloride 104 (98-107) mmol/L Carbon Dioxide 27 (21-32) mmol/L Anion Gap 8 (3-11) BUN 11 (6-23) mg/dl Creatinine 0.59 L (0.6-1.2) mg/dl Est Cr Clr Drug Dosing 87.5 ml/min Est GFR ( Amer) 105.4 ml/min Est GFR (Non-Af Amer) 90.9 ml/min BUN/Creatinine Ratio 18.6 (10-20) Glucose 138 H (70-99(Fasting)) mg/dl POC Glucose 158 H 137 H (70-99) mg/dl Calcium 8.6 (8.6-10.3) mg/dl Phosphorus 3.6 (2.5-4.9) mg/dl Magnesium 1.8 (1.7-2.4) mg/dl 09/02/23 09/02/23 Range/Units 16:34 11:20 WBC (4.8-10.8) K/ul RBC (4.20-5.40) M/uL Hgb (12.0-16.0) g/dl Hct (37.0-47.0) % MCV (80.0-100.0) fL MCH (25.0-34.0) pg MCHC (32.0-36.0) g/dL RDW Std Deviation (36.4-46.3) fL RDW Coeff of Mary (11.5-14.5) % Plt Count (130-400) K/uL MPV (9.4-12.4) fL PT (9.0-12.0) Seconds INR (0.9-1.1) Sodium (136-145) mmol/L Potassium (3.5-5.1) mmol/L Chloride (98-107) mmol/L Carbon Dioxide (21-32) mmol/L Anion Gap (3-11) BUN (6-23) mg/dl Creatinine (0.6-1.2) mg/dl Est Cr Clr Drug Dosing ml/min Est GFR ( Amer) ml/min Est GFR (Non-Af Amer) ml/min BUN/Creatinine Ratio (10-20) Glucose (70-99(Fasting)) mg/dl POC Glucose 130 H 172 H (70-99) mg/dl Calcium (8.6-10.3) mg/dl Phosphorus (2.5-4.9) mg/dl Magnesium (1.7-2.4) mg/dl Medications Administered Current Inpatient Medications Atorvastatin Calcium (Atorvastatin 40 Mg Tab) 40 mg PO HS NILDA Stop: 09/24/23 20:59 Last Admin: 09/02/23 20:33 Dose: 40 mg Cyanocobalamin (Cyanocobalamin (B-12) 500 Mcg Tablet) 1,000 mcg PO QAM NILDA Stop: 09/25/23 08:59 Last Admin: 09/03/23 08:30 Dose: 1,000 mcg Dextrose (Dextrose 50% 50 Ml Syringe) 25 - 50 ml IV UD PRN; Protocol PRN Reason: Hypoglycemia Protocol Stop: 09/24/23 17:28 Digoxin (Digoxin 0.125 Mg Tab) 0.125 mg PO DAILY@1600 NILDA Stop: 09/24/23 17:59 Last Admin: 09/02/23 15:52 Dose: 0.125 mg Diltiazem HCl (Diltiazem Hcl 180 Mg Capcr) 180 mg PO QAM [facility] Stop: 09/25/23 08:59 Last Admin: 09/03/23 08:30 Dose: 180 mg Fluconazole (Fluconazole 100 Mg Tab) 400 mg PO Q24H NILDA Stop: 09/12/23 17:59 Last Admin: 09/02/23 18:34 Dose: 400 mg Glucagon (Glucagon For Inj 1 Mg Vial) 1 mg SQ UD PRN; Protocol PRN Reason: Hypoglycemia Protocol Stop: 09/24/23 17:28 Glucose (Glucose 10 Tab/Tube) 4 - 8 tab PO UD PRN; Protocol PRN Reason: Hypoglycemia Treatment Stop: 09/24/23 17:28 Glucose (Glucose 40% Gel 15 Gm Tube) 15 - 30 gm PO UD PRN; Protocol PRN Reason: Hypoglycemia Protocol Stop: 09/24/23 17:28 Ceftriaxone Sodium 2,000 mg/ (Dextrose) 50 mls @ 100 mls/hr IV Q24H [facility]; Protocol Stop: 09/09/23 13:59 Last Infusion: 09/02/23 13:10 Dose: Infused Insulin Aspart (Insulin Aspart Per Unit Charge) 0 units SC ACHS [facility] Stop: 09/24/23 20:59 Last Admin: 09/03/23 08:28 Dose: 6 units Lactobacillus Acidophilus (Advanced Probiotic 650 Mg Capsule) 2 cap PO DAILY [facility] Stop: 10/02/23 17:29 Last Admin: 09/03/23 08:30 Dose: 2 cap Lisinopril (Lisinopril 20 Mg Tab) 20 mg PO DAILY NILDA Stop: 09/25/23 08:59 Last Admin: 09/03/23 08:30 Dose: 20 mg Magnesium Oxide (Magnesium Oxide 400 Mg Tab) 400 mg PO QAM [facility] Stop: 09/27/23 08:59 Last Admin: 09/03/23 08:30 Dose: 400 mg Melatonin (Melatonin 3 Mg Tab) 3 mg PO HS PRN PRN Reason: sleep Stop: 09/24/23 17:27 Metoprolol Succinate (Metoprolol Succ 25mg Ext Rel Tab) 25 mg PO QAM [facility] Stop: 09/25/23 08:59 Last Admin: 09/03/23 08:30 Dose: 25 mg Miscellaneous (Carbohydrates For Hypoglycemia ) 15 - 30 gm PO UD PRN PRN Reason: Hypoglycemia Protocol Stop: 09/24/23 17:28 Pantoprazole Sodium (Pantoprazole 40 Mg Tab) 40 mg PO BIDM [facility] Stop: 09/25/23 07:59 Last Admin: 09/03/23 08:30 Dose: 40 mg Tamsulosin HCl (Tamsulosin Hcl 0.4 Mg Cap) 0.4 mg PO HS [facility] Stop: 09/24/23 20:59 Last Admin: 09/02/23 20:33 Dose: 0.4 mg Venlafaxine HCl (Venlafaxine Hcl Xr 150 Mg Capxr) 150 mg PO DAILY [facility] Stop: 09/25/23 08:59 Last Admin: 09/03/23 08:30 Dose: 150 mg Warfarin Sodium (Warfarin Sod 4 Mg Tab) 4 mg PO DAILY@1600 [facility] Stop: 10/02/23 17:59 Last Admin: 09/02/23 18:34 Dose: 4 mg (6) Type 2 diabetes mellitus Diabetes mellitus complication status: with other specified complication Diabetes mellitus nursing home insulin use: without nursing home use Qualified Code(s): E11.69 - Type 2 diabetes mellitus with other specified complication (9) HTN (hypertension) Hypertension type: primary hypertension Qualified Code(s): I10 - Essential (primary) hypertension (10) Anemia Anemia type: unspecified type Qualified Code(s): D64.9 - Anemia, unspecified
[2023-09-04 06:45] LABS: Hematocrit (blood only) 26.1 % (37.0-47.0); Hemoglobin 8.1 g/dl (12.0-16.0); Mean Corpuscular Volume 90.3 fL (80.0-100.0); Mean Platelet Volume 9.6 fL (9.4-12.4); Platelet Count 292 K/uL (130-400); RDW Coefficient of Variation 15.5 % (11.5-14.5); RDW Standard Deviation 51.4 fL (36.4-46.3); Red Blood Count 2.89 M/uL (4.20-5.40); White Blood Count 5.63 K/ul (4.8-10.8)
[2023-09-04 07:10] LABS: INR 3.2 (0.9-1.1); Prothrombin Time 32.4 Seconds (9.0-12.0)
[2023-09-04 07:12] LABS: Calcium 8.5 mg/dl (8.6-10.3); Creatinine Clr Calc Pharmacy 89.1 ml/min; Est GFR (Non-African American) 91.4 ml/min; Magnesium 1.8 mg/dl (1.7-2.4); Phosphorus 3.4 mg/dl (2.5-4.9); Potassium 4.2 mmol/L (3.5-5.1)
--- NOTE | 2023-09-04 08:01 | Communication Note ---
Date of Service: September 04, 2023 MICROBIOLOGY: 08/24: 1 of 4 bottles of blood cultures growing Streptococcus (not strep pneumo or Enterococcus) 08/24: Urine culture growing Florina albicans/dubliniensis 08/25: 2 sets of blood culture negative 08/25: Urine culture growing Florina albicans/dubliniensis 08/26: Catheter tip culture negative IMAGING: CT abd/pelvis on 08/31: 1. Persistent findings suggestive of right-sided pyelonephritis, pyelitis and ureteritis . 2. Satisfactory positioning of the right ureteral stent with further distal migration of the 4 mm right ureteral calculus, now within the pelvis. 3. Unchanged 1.6 cm hypodense focus within the right kidney, possibly a small renal abscess. One to two-week follow-up renal ultrasound is recommended. 4. Cholelithiasis. 5. Additional findings as above. Assessment (1) Strep bacteremia - could be from the renal abscess or CRBSI (line removed on 08/26) (2) Pyelonephritis/Renal abscess (3) Ureterolithiasis (4) Ureteral stent present (5) Dry gangrene extremities Plan - I would recommend continuing with IV ceftriaxone at 2g IV daily until 09/08/2023 (to complete treatment for bacteremia), then change to Ceftriaxone 1 g IV daily (to continue treatment for renal abscess) for a total duration of 3 weeks with anticipated end date of 09/22/2023. - Since the repeat CT abd/pelvis showed persistent Rt pyelonephritis/abscess, I would be inclined to treat the florina in the urine. Therefore, continue on oral Fluconazole 400 mg PO/IV daily until 09/22/2023. - Please repeat CT scan renal in 2 weeks to F/U on the status of the Rt renal abscess.
--- NOTE | 2023-09-04 11:54 | Hospitalist Progress Note ---
Date of Service September 04, 2023 Assessment & Plan (1) Bacteremia due to Gram-positive bacteria: (2) Acute UTI: (3) Hypokalemia: (4) Hypomagnesemia: (5) Ureteral stent present: (6) Type 2 diabetes mellitus: (7) Dry gangrene: (8) Dyslipidemia: (9) HTN (hypertension): (10) Anemia: (11) Atrial fibrillation with rapid ventricular response: Plan Pt is a 73yoF with a complicated PMHx significant for extremity gangrene s/p leech therapy developed during last admission (07/26/23-08/21) in the setting of septic shock due to urinary source, poor IV access in setting of continuously progressing/demarcating extremity gangrene, HTN, HLD, T2DM, HCV status posttreatment, anxiety/mood disorder admitted with bacteremia. Bacteremia Altered Mental Status Complicated UTI Pt presented to the ER on 08/24 with concerns for increasing baseline confusion. Was afebrile, WBC within normal limits, BP wnl. Not septic UA at that time concerning for infection, urine Cx x 2 grew jennifer Blood Cx x 2 drawn at that time and was pending. Treatment with Rocephin was started at that time Blood Cx x1 from 08/24 growing alpha strep, likely contaminant Repeat blood cx x2 ordered on 08/25. NGTD Was discharged previously with R IJ catheter due to poor IV access in setting of progressing/demarcating extremity gangrene with follow up at rehab, removed on admission. Cx catheter tip pending R ureteral stent in place from 07/26, urology consulted. Appreciate recs CT abd/pelvis - 1. Tiny focus of nonocclusive thrombus again noted abutting the catheter within the right internal jugular vein. 2. A few bibasilar linear densities favor subsegmental atelectasis. A pneumonia could also have a similar appearance but is considered less likely. 3. Stable 6 mm nodule/cyst within the right breast. 4. There is a 2.2 cm enhancing lesion within the left adductor muscle. This is indeterminate but may represent a hemangioma. Follow-up nonemergent dedicated MRI of the left thigh is recommended for further evaluation. 5. Cholelithiasis. 6. Heterogeneous enhancement within the right kidney and right perinephric enhancement has improved. This suggests a persistent right-sided pyelonephritis. 7. A 1.6 cm hypodense focus within the right kidney which is new from the 07/25/[address] Therefore, this could represent an area of scarring from the pyelonephritis. A small renal abscess or renal infarct could also have a similar appearance. Therefore, one week abdomen CT follow-up recommended to ensure resolution. 8. Urothelial thickening within the right renal collecting system and right ureter persists. 9. A right ureteral stent is in good position. 10. A 4 mm stone within the proximal to mid right ureter is again seen adjacent to the stent. This has migrated a few centimeters distal compared to the prior study. 11. Fluid-filled large and small bowel. This could be due to a gastroenteritis/diarrheal illness. 12. No bowel wall thickening or obstruction. 13. Additional findings as described above. Urology contacted (08/28) re: CT scan - per DECATING MACHINE OPERATOR message - small and did not appear to be a drainable fluid collection. Dr. Nicholas said if she is clinically improving then reimaging is probably not necessary. If not, can repeat ROBERTO or do a CT with contrast. Radiology said repeat in 1 week so could do that as a precaution, or sooner if she is not doing better. Repeated CT scan (09/01/2023) - 1. Persistent findings suggestive of right-sided pyelonephritis, pyelitis and ureteritis . 2. Satisfactory positioning of the right ureteral stent with further distal migration of the 4 mm right ureteral calculus, now within the pelvis. 3. Unchanged 1.6 cm hypodense focus within the right kidney, possibly a small renal abscess. One to two-week follow-up renal ultrasound is recommended. 4. Cholelithiasis. Contacted urology on 08/31 - pt may need IR for poss. small abscess drainage. 09/02/2023 - IR - abscess too small for drainage -> contacted ID for further recommendations - as below 09/03 Discussed w/ urology - Dr. Mahajan - Will plan on right ureteroscopy, stone removal and stent exchange on 09/05/2023. Echo ordered, noting unchanged mitral valve thickening from echo done during previous hospitalization on 07/26/23. Low suggestion of endocarditis at this time. Continue Rocephin pt was started on IV fluconazole for yeast in her urine, continue ID consulted, appreciate recs -continue with Rocephin -discontinue Vancomycin -consider d/c of fluconazole -if no bacteremia on repeat blood cultures from 08/25, continue rocephin for 2 weeks Will continue fluconazole given jennifer in the urine on 2 urine Cultures Repeat blood Cx with NGTD, continue with rocephin for 2 weeks per ID recs 09/01 contacted ID regarding repeat CT scan and patient's overall clinical course. Recommend to continue Rocephin, and fluconazole. Increase fluconazole to 400. Will need repeat imaging in 2 weeks. Plan - I would recommend continuing with IV ceftriaxone at 2g IV daily until 09/08/2023 (to complete treatment for bacteremia), then change to Ceftriaxone 1 g IV daily (to continue treatment for renal abscess) for a total duration of 3 weeks with anticipated end date of 09/22/2023. - Since the repeat CT abd/pelvis showed persistent Rt pyelonephritis/abscess, I would be inclined to treat the jennifer in the urine. Therefore, continue on oral Fluconazole 400 mg PO/IV daily until 09/22/2023. - Please repeat CT scan renal in 2 weeks to F/U on the status of the Rt renal abscess. Poor vascular access Extremity gangrene Was discharged previously with R IJ catheter due to poor IV access in setting of progressing/demarcating extremity gangrene with follow up at rehab, removed on this admission. Cx catheter tip pending On this admission, ED was able to achieve IV access in the left arm (two 20 gauge IVs in left arm currently) Monitor IV access in setting of progressing/demarcating gangrene currently Consider trial for PICC access once more Non occlusive thrombus in right IJ Patient already on anticoagulation Continue with Lovenox 70mg BID with warfarin transition Lovenox currently weight adjusted from previous 80mg as pt has since lost some weight per pharmacy INR currently 1.5 Increased warfarin dose to 10mg. R IJ catheter discontinued Extremity gangrene s/p leech therapy Pt with progressing/demarcating extremity gangrene Orthopedics consult placed for further recommendations this admission, appreciate recs. -Medical management -Antibiotics per infectious disease -Occupational Therapy -Pain control -No further orthopedic intervention at this time. -Plan to be to allow the areas to demarcate and future amputations. -The patient may follow-up with Dr. Lay as an outpatient. Ureteral stent status post cystoscopy and right retrograde pyelogram/right ureteral stent placement 07/26/2023 Currently still on Flomax Urology consulted-appreciate recs Hypokalemia Replete as needed Hypomagnesemia Replete as needed Atrial fibrillation with rapid ventricular response During recent admission - currently in normal sinus rhythm Continue metoprolol, diltiazem, digoxin On Lovenox to warfarin bridge INR therapeutic - stopped lovenox on 08/29 Type 2 diabetes mellitus hgba1c of 7.1 in 07/2023 Holding Metformin Insulin sliding scale Diabetic diet Dyslipidemia Chronic, stable Continue statin HTN (hypertension) Chronic, stable Continue outpatient regimen Anemia Ongoing issue from recent admission but stable to improving Mood Continue Effexor GERD Continue ppi Diet: DMII DVT prophylaxis: warfarin Dispo: PT/OT orders in CODE STATUS: Full code Admission and Anticipated Discharge Date Admission Date: August 25, 2023 Subjective Pt seen in follow up - had very complicated hospital course Currently treated for UTI, bacteremia Sitting up in chair in NAD Currently denies any fevers chills chest pain shortness of breath. Denies abdominal pain, nausea vomiting. Says she was feeling sick in her stomach when she came to the hospital, felt as having UTI, [id number] said that she was helping her eat and patient was throwing up. Discussed w/ urology earlier regarding CT abdomen pelvis obtained on admission. Repeated CT scan (1 week follow up) and discussed with urology, IR (transfer [facility]) and ID. Urology - may need IR IR ([facility] as pt's insurance does not support for transfer to [facility]) - abscess is small - can't drain at this time ID - continue with Rocephin and fluconazole - increase fluconazole to 400. 09/03 - Discussed w/ urology - Dr. Mahajan - Will plan on right ureteroscopy, stone removal and stent exchange tomorrow (on 09/05/2023). Review of Systems Review of Systems: All systems reviewed & are unremarkable except as noted in Subjective Physical Exam Physical Exam: General: Alert, oriented. 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 No murmurs appreciated Resp: Breath sounds clear bilaterally, no increased effort of breathing. Abdomen: Soft, nontender Extremities: gangrene noted on hands and feet bilaterally Results & Data Results & Data Vital Signs (Past 12 Hours) Vital Signs Temp Pulse Pulse Resp BP Pulse Ox O2 Del Method 09/04/23 09:49 72 09/04/23 07:42 36.7 C 73 19 125/67 89 L Room Air 09/04/23 03:23 36.6 C 71 20 117/58 L 95 Room Air Laboratory Results 09/04/23 09/04/23 09/04/23 Range/Units 11:19 07:31 05:42 WBC 5.63 (4.8-10.8) K/ul RBC 2.89 L (4.20-5.40) M/uL Hgb 8.1 L (12.0-16.0) g/dl Hct 26.1 L (37.0-47.0) % MCV 90.3 (80.0-100.0) fL MCH 28.0 (25.0-34.0) pg MCHC 31.0 L (32.0-36.0) g/dL RDW Std Deviation 51.4 H (36.4-46.3) fL RDW Coeff of Mary 15.5 H (11.5-14.5) % Plt Count 292 (130-400) K/uL MPV 9.6 (9.4-12.4) fL PT 32.4 H (9.0-12.0) Seconds INR 3.2 H (0.9-1.1) Sodium 138 (136-145) mmol/L Potassium 4.2 (3.5-5.1) mmol/L Chloride 105 (98-107) mmol/L Carbon Dioxide 27 (21-32) mmol/L Anion Gap 6 (3-11) BUN 11 (6-23) mg/dl Creatinine 0.58 L (0.6-1.2) mg/dl Est Cr Clr Drug Dosing 89.1 ml/min Est GFR ( Amer) 106.0 ml/min Est GFR (Non-Af Amer) 91.4 ml/min BUN/Creatinine Ratio 19.0 (10-20) Glucose 145 H (70-99(Fasting)) mg/dl POC Glucose 157 H 168 H (70-99) mg/dl Calcium 8.5 L (8.6-10.3) mg/dl Phosphorus 3.4 (2.5-4.9) mg/dl Magnesium 1.8 (1.7-2.4) mg/dl 09/03/23 09/03/23 Range/Units 20:41 16:32 WBC (4.8-10.8) K/ul RBC (4.20-5.40) M/uL Hgb (12.0-16.0) g/dl Hct (37.0-47.0) % MCV (80.0-100.0) fL MCH (25.0-34.0) pg MCHC (32.0-36.0) g/dL RDW Std Deviation (36.4-46.3) fL RDW Coeff of Mary (11.5-14.5) % Plt Count (130-400) K/uL MPV (9.4-12.4) fL PT (9.0-12.0) Seconds INR (0.9-1.1) Sodium (136-145) mmol/L Potassium (3.5-5.1) mmol/L Chloride (98-107) mmol/L Carbon Dioxide (21-32) mmol/L Anion Gap (3-11) BUN (6-23) mg/dl Creatinine (0.6-1.2) mg/dl Est Cr Clr Drug Dosing ml/min Est GFR ( Amer) ml/min Est GFR (Non-Af Amer) ml/min BUN/Creatinine Ratio (10-20) Glucose (70-99(Fasting)) mg/dl POC Glucose 161 H 112 H (70-99) mg/dl Calcium (8.6-10.3) mg/dl Phosphorus (2.5-4.9) mg/dl Magnesium (1.7-2.4) mg/dl Medications Administered Current Inpatient Medications Atorvastatin Calcium (Atorvastatin 40 Mg Tab) 40 mg PO HS NILDA Stop: 09/24/23 20:59 Last Admin: 09/03/23 20:55 Dose: 40 mg Cyanocobalamin (Cyanocobalamin (B-12) 500 Mcg Tablet) 1,000 mcg PO QAM NILDA Stop: 09/25/23 08:59 Last Admin: 09/04/23 08:54 Dose: 1,000 mcg Dextrose (Dextrose 50% 50 Ml Syringe) 25 - 50 ml IV UD PRN; Protocol PRN Reason: Hypoglycemia Protocol Stop: 09/24/23 17:28 Digoxin (Digoxin 0.125 Mg Tab) 0.125 mg PO DAILY@1600 [facility] Stop: 09/24/23 17:59 Last Admin: 09/03/23 16:12 Dose: 0.125 mg Diltiazem HCl (Diltiazem Hcl 180 Mg Capcr) 180 mg PO QAM [facility] Stop: 09/25/23 08:59 Last Admin: 09/04/23 08:54 Dose: 180 mg Fluconazole (Fluconazole 100 Mg Tab) 400 mg PO Q24H [facility] Stop: 09/12/23 17:59 Last Admin: 09/03/23 17:18 Dose: 400 mg Glucagon (Glucagon For Inj 1 Mg Vial) 1 mg SQ UD PRN; Protocol PRN Reason: Hypoglycemia Protocol Stop: 09/24/23 17:28 Glucose (Glucose 10 Tab/Tube) 4 - 8 tab PO UD PRN; Protocol PRN Reason: Hypoglycemia Treatment Stop: 09/24/23 17:28 Glucose (Glucose 40% Gel 15 Gm Tube) 15 - 30 gm PO UD PRN; Protocol PRN Reason: Hypoglycemia Protocol Stop: 09/24/23 17:28 Ceftriaxone Sodium 2,000 mg/ (Dextrose) 50 mls @ 100 mls/hr IV Q24H [facility]; Protocol Stop: 09/09/23 13:59 Last Infusion: 09/03/23 14:46 Dose: Infused Insulin Aspart (Insulin Aspart Per Unit Charge) 0 units SC ACHS [facility] Stop: 09/24/23 20:59 Last Admin: 09/04/23 08:52 Dose: 3 units Lactobacillus Acidophilus (Advanced Probiotic 625 Mg Capsule) 1,250 mg PO DAILY [facility] Stop: 10/02/23 08:59 Lisinopril (Lisinopril 20 Mg Tab) 20 mg PO DAILY [facility] Stop: 09/25/23 08:59 Last Admin: 09/04/23 08:54 Dose: 20 mg Magnesium Oxide (Magnesium Oxide 400 Mg Tab) 400 mg PO QAM [facility] Stop: 09/27/23 08:59 Last Admin: 09/04/23 08:54 Dose: 400 mg Melatonin (Melatonin 3 Mg Tab) 3 mg PO HS PRN PRN Reason: sleep Stop: 09/24/23 17:27 Metoprolol Succinate (Metoprolol Succ 25mg Ext Rel Tab) 25 mg PO QAM [facility] Stop: 09/25/23 08:59 Last Admin: 09/04/23 08:55 Dose: 25 mg Miscellaneous (Carbohydrates For Hypoglycemia ) 15 - 30 gm PO UD PRN PRN Reason: Hypoglycemia Protocol Stop: 09/24/23 17:28 Pantoprazole Sodium (Pantoprazole 40 Mg Tab) 40 mg PO BIDM [facility] Stop: 09/25/23 07:59 Last Admin: 09/04/23 08:54 Dose: 40 mg Tamsulosin HCl (Tamsulosin Hcl 0.4 Mg Cap) 0.4 mg PO HS [facility] Stop: 09/24/23 20:59 Last Admin: 09/03/23 20:55 Dose: 0.4 mg Venlafaxine HCl (Venlafaxine Hcl Xr 150 Mg Capxr) 150 mg PO DAILY [facility] Stop: 09/25/23 08:59 Last Admin: 09/04/23 08:54 Dose: 150 mg Warfarin Sodium (Warfarin Sod 3 Mg Tab) 3 mg PO DAILY@1600 [facility] Stop: 10/04/23 15:59 (6) Type 2 diabetes mellitus Diabetes mellitus complication status: with other specified complication 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
--- NOTE | 2023-09-04 12:47 | Urology Progress Note ---
Date of Service September 04, 2023 Assessment & Plan (1) Complicated urinary tract infection: (2) Ureteral stent present: (3) Ureterolithiasis: Plan We reviewed her current clinical picture. Per interventional radiology, the fluid collection around her right kidney is too small to drain. She remains on broad-spectrum antibiotics for recent infections. We discussed that she still has a stone in the right ureter. The stent should be allowing drainage but both could potentially be contributing to ongoing infections. We discussed the possible role for ureteroscopy and stone removal to ideally remove as many foreign bodies as possible. We discussed risks and benefits of proceeding with surgery including risks of bleeding, infection, injury to urinary tract, need for additional procedures. She expressed understanding would like to proceed with surgery. Will plan on right ureteroscopy, stone removal and stent exchange on 09/05/2023. Admission and Anticipated Discharge Date Admission Date: August 25, 2023 Subjective Feeling well this morning, not having any flank pain. Denies any fevers or chills. Urine culture from 08/25 with Florina albicans, currently on fluconazole Blood cultures from 08/25 were negative. She remains on cefdinir. CT abdomen pelvis from 09/01/2023 reviewed. Right ureteral stent is in position. 4 mm right ureteral stone in the distal ureter. Persistence of 1.6 cm hypodense focus in the right kidney, possible renal abscess. Physical Exam Physical Exam: Well-appearing, NAD, seated in bed Genitourinary: Catheter in place, draining well Results & Data Vital Signs (Past 12 Hours) Vital Signs Temp Pulse Pulse Resp BP Pulse Ox O2 Del Method 09/04/23 09:49 72 09/04/23 07:42 36.7 C 73 19 125/67 89 L Room Air 09/04/23 03:23 36.6 C 71 20 117/58 L 95 Room Air PG Care Time/CCT Total # of Minutes Spent Total Time Spent with Patient: Total time spent is greater than 50% in coordination of care (as documented) at patient's floor/unit and/or counseling patient: Coding Level of Care Code 42827 SUB INP/OBS CARE 07/25MIN Diagnoses Complicated urinary tract infection N39.0 Ureteral stent present Z96.0 Ureterolithiasis N20.1
[2023-09-05 05:52] LABS: Hematocrit (blood only) 25.4 % (37.0-47.0); Hemoglobin 7.9 g/dl (12.0-16.0); Mean Corpuscular Hemoglobin 27.8 pg (25.0-34.0); Mean Corpuscular Hgb Conc 31.1 g/dL (32.0-36.0); Mean Corpuscular Volume 89.4 fL (80.0-100.0); Platelet Count 262 K/uL (130-400); RDW Coefficient of Variation 15.8 % (11.5-14.5); RDW Standard Deviation 51.2 fL (36.4-46.3); Red Blood Count 2.84 M/uL (4.20-5.40); White Blood Count 5.82 K/ul (4.8-10.8)
[2023-09-05 05:57] LABS: BUN Creatinine Ratio 15.7 (10-20); Calcium 8.5 mg/dl (8.6-10.3); Creatinine Clr Calc Pharmacy 73.8 ml/min; Est GFR (African American) 99.6 ml/min; Magnesium 1.8 mg/dl (1.7-2.4); Phosphorus 3.5 mg/dl (2.5-4.9); Potassium 4.3 mmol/L (3.5-5.1)
--- NOTE | 2023-09-05 06:26 | Hospitalist Progress Note ---
Date of Service September 05, 2023 Assessment & Plan (1) Bacteremia due to Gram-positive bacteria: (2) Acute UTI: (3) Hypokalemia: (4) Hypomagnesemia: (5) Ureteral stent present: (6) Type 2 diabetes mellitus: (7) Dry gangrene: (8) Dyslipidemia: (9) HTN (hypertension): (10) Anemia: (11) Atrial fibrillation with rapid ventricular response: Plan Pt is a 73yoF with a complicated PMHx significant for extremity gangrene s/p leech therapy developed during last admission (07/26/23-08/21) in the setting of septic shock due to urinary source, poor IV access in setting of continuously progressing/demarcating extremity gangrene, HTN, HLD, T2DM, HCV status posttreatment, anxiety/mood disorder admitted with bacteremia. Bacteremia Altered Mental Status Complicated UTI Pt presented to the ER on 08/24 with concerns for increasing baseline confusion. Was afebrile, WBC within normal limits, BP wnl. Not septic UA at that time concerning for infection, urine Cx x 2 grew jennifer Blood Cx x 2 drawn at that time and was pending. Treatment with Rocephin was started at that time Blood Cx x1 from 08/24 growing alpha strep, likely contaminant Repeat blood cx x2 ordered on 08/25. NGTD Was discharged previously with R IJ catheter due to poor IV access in setting of progressing/demarcating extremity gangrene with follow up at rehab, removed on admission. Cx catheter tip pending R ureteral stent in place from 07/26, urology consulted. Appreciate recs CT abd/pelvis - 1. Tiny focus of nonocclusive thrombus again noted abutting the catheter within the right internal jugular vein. 2. A few bibasilar linear densities favor subsegmental atelectasis. A pneumonia could also have a similar appearance but is considered less likely. 3. Stable 6 mm nodule/cyst within the right breast. 4. There is a 2.2 cm enhancing lesion within the left adductor muscle. This is indeterminate but may represent a hemangioma. Follow-up nonemergent dedicated MRI of the left thigh is recommended for further evaluation. 5. Cholelithiasis. 6. Heterogeneous enhancement within the right kidney and right perinephric enhancement has improved. This suggests a persistent right-sided pyelonephritis. 7. A 1.6 cm hypodense focus within the right kidney which is new from the 07/25/[address] Therefore, this could represent an area of scarring from the pyelonephritis. A small renal abscess or renal infarct could also have a similar appearance. Therefore, one week abdomen CT follow-up recommended to ensure resolution. 8. Urothelial thickening within the right renal collecting system and right ureter persists. 9. A right ureteral stent is in good position. 10. A 4 mm stone within the proximal to mid right ureter is again seen adjacent to the stent. This has migrated a few centimeters distal compared to the prior study. 11. Fluid-filled large and small bowel. This could be due to a gastroenteritis/diarrheal illness. 12. No bowel wall thickening or obstruction. 13. Additional findings as described above. Urology contacted (08/28) re: CT scan - per [employer] message - small and did not appear to be a drainable fluid collection. Dr. Nicholas said if she is clinically improving then reimaging is probably not necessary. If not, can repeat ROBERTO or do a CT with contrast. Radiology said repeat in 1 week so could do that as a precaution, or sooner if she is not doing better. Repeated CT scan (09/01/2023) - 1. Persistent findings suggestive of right-sided pyelonephritis, pyelitis and ureteritis . 2. Satisfactory positioning of the right ureteral stent with further distal migration of the 4 mm right ureteral calculus, now within the pelvis. 3. Unchanged 1.6 cm hypodense focus within the right kidney, possibly a small renal abscess. One to two-week follow-up renal ultrasound is recommended. 4. Cholelithiasis. Contacted urology on 08/31 - pt may need IR for poss. small abscess drainage. 09/02/2023 - IR - abscess too small for drainage -> contacted ID for further recommendations - as below 2023 S/p right ureteroscopy, stone removal and stent exchange. Follow cultx from OR. Echo ordered, noting unchanged mitral valve thickening from echo done during previous hospitalization on 07/26/23. Low suggestion of endocarditis at this time. Continue Rocephin pt was started on IV fluconazole for yeast in her urine, continue ID consulted, appreciate recs -continue with Rocephin -discontinue Vancomycin -consider d/c of fluconazole -if no bacteremia on repeat blood cultures from 08/25, continue rocephin for 2 weeks Will continue fluconazole given jennifer in the urine on 2 urine Cultures Repeat blood Cx with NGTD, continue with Rocephin for 2 weeks per ID recs 2023 Contacted ID regarding repeat CT scan and patient's overall clinical course. Recommend to continue Rocephin, and fluconazole. Increase fluconazole to 400. Will need repeat imaging in 2 weeks. Plan - I would recommend continuing with IV ceftriaxone at 2g IV daily until 09/08/2023 (to complete treatment for bacteremia), then change to Ceftriaxone 1 g IV daily (to continue treatment for renal abscess) for a total duration of 3 weeks with anticipated end date of 09/22/2023. - Since the repeat CT abd/pelvis showed persistent Rt pyelonephritis/abscess, I would be inclined to treat the jennifer in the urine. Therefore, continue on oral Fluconazole 400 mg PO/IV daily until 09/22/2023. - Please repeat CT scan renal in 2 weeks to F/U on the status of the Rt renal abscess. Poor vascular access Extremity gangrene Was discharged previously with R IJ catheter due to poor IV access in setting of progressing/demarcating extremity gangrene with follow up at rehab, removed on this admission. Cx catheter tip pending On this admission, ED was able to achieve IV access in the left arm (two 20 gauge IVs in left arm currently) Monitor IV access in setting of progressing/demarcating gangrene currently Consider trial for PICC access once more Non occlusive thrombus in right IJ Patient already on anticoagulation Continue with Lovenox 70mg BID with warfarin transition Lovenox currently weight adjusted from previous 80mg as pt has since lost some weight per pharmacy INR currently 1.5 Increased warfarin dose to 10mg. R IJ catheter discontinued Extremity gangrene s/p leech therapy Pt with progressing/demarcating extremity gangrene Orthopedics consult placed for further recommendations this admission, appreciate recs. -Medical management -Antibiotics per infectious disease -Occupational Therapy -Pain control -No further orthopedic intervention at this time. -Plan to be to allow the areas to demarcate and future amputations. -The patient may follow-up with Dr. Lay as an outpatient. Ureteral stent status post cystoscopy and right retrograde pyelogram/right ureteral stent placement 07/26/2023 Currently still on Flomax Urology consulted-appreciate recs 2023 S/p right ureteroscopy, stone removal and stent exchange. Follow cultx from OR. - as above Hypokalemia Replete as needed Hypomagnesemia Replete as needed Atrial fibrillation with rapid ventricular response During recent admission - currently in normal sinus rhythm Continue metoprolol, diltiazem, digoxin On Lovenox to warfarin bridge INR therapeutic - stopped lovenox on 08/29 Type 2 diabetes mellitus hgba1c of 7.1 in 07/2023 Holding Metformin Insulin sliding scale Diabetic diet Dyslipidemia Chronic, stable Continue statin HTN (hypertension) Chronic, stable Continue outpatient regimen Anemia Ongoing issue from recent admission but stable to improving Mood Continue Effexor GERD Continue ppi Diet: DMII DVT prophylaxis: warfarin Dispo: PT/OT orders in CODE STATUS: Full code Admission and Anticipated Discharge Date Admission Date: August 25, 2023 Subjective Pt seen in follow up - had very complicated hospital course Currently treated for UTI, bacteremia Sitting up in chair in NAD Currently denies any fevers chills chest pain shortness of breath. Denies abdominal pain, nausea vomiting. Says she was feeling sick in her stomach when she came to the hospital, felt as having UTI, [id number] said that she was helping her eat and patient was throwing up. Discussed w/ urology earlier regarding CT abdomen pelvis obtained on admission. Repeated CT scan (1 week follow up) and discussed with urology, IR (transfer center) and ID. Urology - may need IR IR ([facility] as pt's insurance does not support for transfer to [facility]) - abscess is small - can't drain at this time ID - continue with Rocephin and fluconazole - increase fluconazole to 400. 09/04 - Now s/p right ureteroscopy, stone removal and stent exchange. She is feeling well after her procedure. Follow cultures obtained in OR. Review of Systems Review of Systems: All systems reviewed & are unremarkable except as noted in Subjective Physical Exam Physical Exam: General: Alert, oriented. No acute distress Skin: gangrene noted on hands and feet bilaterally Psych: Appropriate mood and affect Neuro:difficulty with editor at large, weakness HEENT: NC/AT, noted gangrene on nasal tip CV: RRR, Normal s1, s2. No murmurs appreciated Resp: Breath sounds clear bilaterally, no increased effort of breathing. Abdomen: Soft, nontender Extremities: gangrene noted on hands and feet bilaterally Results & Data Results & Data Vital Signs (Past 12 Hours) Vital Signs Temp Pulse Pulse Resp BP Pulse Ox O2 Del Method 09/05/23 03:00 36.7 C 70 16 114/64 93 Room Air 09/04/23 23:21 37.1 C 72 18 121/67 91 Room Air 09/04/23 23:19 71 09/04/23 20:00 Room Air 09/04/23 19:00 36.9 C 72 18 119/69 90 Room Air Laboratory Results 09/05/23 09/04/23 09/04/23 Range/Units 05:18 20:34 16:33 WBC 5.82 (4.8-10.8) K/ul RBC 2.84 L (4.20-5.40) M/uL Hgb 7.9 L (12.0-16.0) g/dl Hct 25.4 L (37.0-47.0) % MCV 89.4 (80.0-100.0) fL MCH 27.8 (25.0-34.0) pg MCHC 31.1 L (32.0-36.0) g/dL RDW Std Deviation 51.2 H (36.4-46.3) fL RDW Coeff of Mary 15.8 H (11.5-14.5) % Plt Count 262 (130-400) K/uL MPV 10.0 (9.4-12.4) fL PT (9.0-12.0) Seconds INR (0.9-1.1) Sodium 136 (136-145) mmol/L Potassium 4.3 (3.5-5.1) mmol/L Chloride 105 (98-107) mmol/L Carbon Dioxide 24 (21-32) mmol/L Anion Gap 7 (3-11) BUN 11 (6-23) mg/dl Creatinine 0.70 (0.6-1.2) mg/dl Est Cr Clr Drug Dosing 73.8 ml/min Est GFR ( Amer) 99.6 ml/min Est GFR (Non-Af Amer) 86.0 ml/min BUN/Creatinine Ratio 15.7 (10-20) Glucose 144 H (70-99(Fasting)) mg/dl POC Glucose 155 H 135 H (70-99) mg/dl Calcium 8.5 L (8.6-10.3) mg/dl Phosphorus 3.5 (2.5-4.9) mg/dl Magnesium 1.8 (1.7-2.4) mg/dl 09/04/23 09/04/23 09/04/23 Range/Units 11:19 07:31 05:42 WBC 5.63 (4.8-10.8) K/ul RBC 2.89 L (4.20-5.40) M/uL Hgb 8.1 L (12.0-16.0) g/dl Hct 26.1 L (37.0-47.0) % MCV 90.3 (80.0-100.0) fL MCH 28.0 (25.0-34.0) pg MCHC 31.0 L (32.0-36.0) g/dL RDW Std Deviation 51.4 H (36.4-46.3) fL RDW Coeff of Mary 15.5 H (11.5-14.5) % Plt Count 292 (130-400) K/uL MPV 9.6 (9.4-12.4) fL PT 32.4 H (9.0-12.0) Seconds INR 3.2 H (0.9-1.1) Sodium 138 (136-145) mmol/L Potassium 4.2 (3.5-5.1) mmol/L Chloride 105 (98-107) mmol/L Carbon Dioxide 27 (21-32) mmol/L Anion Gap 6 (3-11) BUN 11 (6-23) mg/dl Creatinine 0.58 L (0.6-1.2) mg/dl Est Cr Clr Drug Dosing 89.1 ml/min Est GFR ( Amer) 106.0 ml/min Est GFR (Non-Af Amer) 91.4 ml/min BUN/Creatinine Ratio 19.0 (10-20) Glucose 145 H (70-99(Fasting)) mg/dl POC Glucose 157 H 168 H (70-99) mg/dl Calcium 8.5 L (8.6-10.3) mg/dl Phosphorus 3.4 (2.5-4.9) mg/dl Magnesium 1.8 (1.7-2.4) mg/dl Medications Administered Current Inpatient Medications Atorvastatin Calcium (Atorvastatin 40 Mg Tab) 40 mg PO HS [facility] Stop: 09/24/23 20:59 Last Admin: 09/04/23 20:55 Dose: 40 mg Cyanocobalamin (Cyanocobalamin (B-12) 500 Mcg Tablet) 1,000 mcg PO QAM [facility] Stop: 09/25/23 08:59 Last Admin: 09/04/23 08:54 Dose: 1,000 mcg Dextrose (Dextrose 50% 50 Ml Syringe) 25 - 50 ml IV UD PRN; Protocol PRN Reason: Hypoglycemia Protocol Stop: 09/24/23 17:28 Digoxin (Digoxin 0.125 Mg Tab) 0.125 mg PO DAILY@1600 [facility] Stop: 09/24/23 17:59 Last Admin: 09/04/23 17:06 Dose: 0.125 mg Diltiazem HCl (Diltiazem Hcl 180 Mg Capcr) 180 mg PO QAM [facility] Stop: 09/25/23 08:59 Last Admin: 09/04/23 08:54 Dose: 180 mg Fluconazole (Fluconazole 100 Mg Tab) 400 mg PO Q24H [facility] Stop: 09/12/23 17:59 Last Admin: 09/04/23 17:09 Dose: 400 mg Glucagon (Glucagon For Inj 1 Mg Vial) 1 mg SQ UD PRN; Protocol PRN Reason: Hypoglycemia Protocol Stop: 09/24/23 17:28 Glucose (Glucose 10 Tab/Tube) 4 - 8 tab PO UD PRN; Protocol PRN Reason: Hypoglycemia Treatment Stop: 09/24/23 17:28 Glucose (Glucose 40% Gel 15 Gm Tube) 15 - 30 gm PO UD PRN; Protocol PRN Reason: Hypoglycemia Protocol Stop: 09/24/23 17:28 Ceftriaxone Sodium 2,000 mg/ (Dextrose) 50 mls @ 100 mls/hr IV Q24H [facility]; Protocol Stop: 09/09/23 13:59 Last Infusion: 09/04/23 15:04 Dose: Infused Insulin Aspart (Insulin Aspart Per Unit Charge) 0 units SC ACHS [facility] Stop: 09/24/23 20:59 Last Admin: 09/04/23 20:43 Dose: Not Given Lactobacillus Acidophilus (Advanced Probiotic 625 Mg Capsule) 1,250 mg PO DAILY [facility] Stop: 10/02/23 08:59 Lisinopril (Lisinopril 20 Mg Tab) 20 mg PO DAILY [facility] Stop: 09/25/23 08:59 Last Admin: 09/04/23 08:54 Dose: 20 mg Magnesium Oxide (Magnesium Oxide 400 Mg Tab) 400 mg PO QAM [facility] Stop: 09/27/23 08:59 Last Admin: 09/04/23 08:54 Dose: 400 mg Melatonin (Melatonin 3 Mg Tab) 3 mg PO HS PRN PRN Reason: sleep Stop: 09/24/23 17:27 Metoprolol Succinate (Metoprolol Succ 25mg Ext Rel Tab) 25 mg PO QAM [facility] Stop: 09/25/23 08:59 Last Admin: 09/04/23 08:55 Dose: 25 mg Miscellaneous (Carbohydrates For Hypoglycemia ) 15 - 30 gm PO UD PRN PRN Reason: Hypoglycemia Protocol Stop: 09/24/23 17:28 Pantoprazole Sodium (Pantoprazole 40 Mg Tab) 40 mg PO BIDM [facility] Stop: 09/25/23 07:59 Last Admin: 09/04/23 17:09 Dose: 40 mg Tamsulosin HCl (Tamsulosin Hcl 0.4 Mg Cap) 0.4 mg PO HS [facility] Stop: 09/24/23 20:59 Last Admin: 09/04/23 20:55 Dose: 0.4 mg Venlafaxine HCl (Venlafaxine Hcl Xr 150 Mg Capxr) 150 mg PO DAILY [facility] Stop: 09/25/23 08:59 Last Admin: 09/04/23 08:54 Dose: 150 mg Warfarin Sodium (Warfarin Sod 3 Mg Tab) 3 mg PO DAILY@1600 [facility] Stop: 10/04/23 15:59 (6) Type 2 diabetes mellitus Diabetes mellitus complication status: with other specified complication Diabetes mellitus [employer] insulin use: without snf use Qualified Code(s): E11.69 - Type 2 diabetes mellitus with other specified complication (9) HTN (hypertension) Hypertension type: primary hypertension Qualified Code(s): I10 - Essential (primary) hypertension (10) Anemia Anemia type: unspecified type Qualified Code(s): D64.9 - Anemia, unspecified
[2023-09-05] MEDS: ADVANCED PROBIOTIC 625 MG CAPSULE PO SCH (08:58)
--- NOTE | 2023-09-05 09:16 | Urology Progress Note ---
<Statement entered by Stu Mahajan MD - 09/05/23 10:39> I have seen and discussed Ms. Kelly's case with NOE Lopez and agree with the above documentation. I did discussion with Ms. Kelly as well. We reviewed plan for surgical intervention with ureteroscopy and laser lithotripsy for her right-sided stone. We reviewed risks including bleeding, infection, injury to urinary tract, need for additional procedures, need for ureteral stent. She expressed understanding and willingness to proceed with surgery. -Stu Mahajan MD. Date of Service September 05, 2023 Assessment & Plan (1) Complicated urinary tract infection: (2) Ureteral stent present: (3) Ureterolithiasis: Plan She is afebrile and hemodynamically stable. Labs today reviewed - WBC 5.82, Hemoglobin 7.9, Creatinine 0.70. Urine culture from 08/25 with Florina albicans, currently on fluconazole Blood cultures from 08/25 were negative. She remains on ceftriaxone. CT abdomen pelvis from 09/01/2023 reviewed. Right ureteral stent is in position. 4 mm right ureteral stone in the distal ureter. Persistence of 1.6 cm hypodense focus in the right kidney, possible renal abscess. Per interventional radiology, the fluid collection around her right kidney is too small to drain. She remains on broad-spectrum antibiotics for recent infections. She still has a stone in the right ureter and although the stent should be allowing drainage, both could potentially be contributing to ongoing infections. Right ureteroscopy and stone removal to ideally remove as many foreign bodies as possible was discussed and patient is agreeable to proceeding. Will plan to proceed to OR today for right ureteroscopy, stone removal and stent exchange with Dr. Mahajan. Risks and benefits to be reviewed with patient by Dr. Mahajan. Continue supportive care, antibiotics, and antifungal. Keep NPO for procedure today. Urology will follow. Admission and Anticipated Discharge Date Admission Date: August 25, 2023 Subjective Pt examined at bedside this AM. Awake, resting in bed on arrival. No acute distress. No issues overnight. Has been NPO. Feeling well this morning, not having any flank pain. Denies fever, chills, nausea, or vomiting. Joshi intact. Review of Systems Constitutional: as per Subjective / HPI Genitourinary: as per Subjective / HPI Physical Exam Constitutional: no acute distress Respiratory: no respiratory distress and no labored breathing Musculoskeletal: Head/Neck/Chest: normocephalic Skin: Gangrene noted on b/l hands Neurologic: awake Psychiatric: Orientation: alert and oriented x 3 Genitourinary: Joshi intact Results & Data Vital Signs (Past 12 Hours) Vital Signs Temp Pulse Pulse Resp BP BP Pulse Ox 09/05/23 07:40 36.6 C 73 19 137/68 93 09/05/23 03:00 36.7 C 70 16 114/64 93 09/04/23 23:21 37.1 C 72 18 121/67 91 09/04/23 23:19 71 O2 Del Method 09/05/23 07:40 Room Air 09/05/23 03:00 Room Air 09/04/23 23:21 Room Air 09/04/23 23:19 PG Care Time/CCT Total # of Minutes Spent Total Time Spent with Patient: Total time spent is greater than 50% in coordination of care (as documented) at patient's floor/unit and/or counseling patient: Coding Level of Care Code 53148 SUB INP/OBS CARE 2/35MIN Diagnoses Complicated urinary tract infection N39.0 Ureteral stent present Z96.0 Ureterolithiasis N20.1
[2023-09-05] MEDS ORDERED: LIDOCAINE 2% 2 ML VIAL/AMP(20MG/ML) INFIL ONE (10:07)
[2023-09-05] MEDS ORDERED: fentaNYL citrate PF 100 MCG/2 ML VIAL ONE (10:07)
[2023-09-05] MEDS ORDERED: ONDANSETRON INJ 2 MG/ML 2 ML VIAL ONE (10:07)
[2023-09-05] MEDS ORDERED: PROPOFOL IV EMULSION 10 MG/ML 20 ML VIAL IV ONE (10:07)
[2023-09-05] MEDS ORDERED: DEXAMETHASONE SOD INJ 4 MG/ML VIAL ONE (10:07)
[2023-09-05] MEDS ORDERED: PHENYLEPHRINE HCL 10 MG/ML VIAL ONE (10:07)
[2023-09-05] MEDS ORDERED: MIDAZOLAM HCL 1 MG/ML 2ML VIAL ONE (10:07)
--- NOTE | 2023-09-05 10:42 | Anesthesiology Consultation ---
Date of Service September 05, 2023 History Surgery Operation Date: 09/05/23 10:55 Proposed Procedures p Cystoscopy, Right Ureterosocpy, Laser Lithotripsy, and Stent Exchange - Stu Mahajan MD Height/Weight Height: 5 ft 6 in Weight: 74.6 kg Allergies Allergy/AdvReac Type Severity Reaction Status Date / Time No Known Allergies Allergy Verified 08/24/23 17:19 Medications Home Medications Medication Instructions Recorded Confirmed Last Taken atorvastatin 40 mg tablet 40 mg PO HS 07/25/23 08/25/23 08/24/23 cyanocobalamin (vitamin B-12) 1,000 mcg PO QAM 07/25/23 08/25/23 08/25/23 1,000 mcg tablet metformin 1,000 mg tablet 1,000 mg PO BIDWMEAL 07/25/23 08/25/23 08/25/23 venlafaxine 150 mg 150 mg PO DAILY 07/25/23 08/25/23 08/25/23 capsule,extended release 24 hr diltiazem HCl 180 mg 180 mg PO QAM #30 caps 08/21/23 08/25/23 08/25/23 capsule,extended release 24 hr melatonin 3 mg tablet 3 mg PO HS PRN sleep #30 tabs 08/21/23 08/25/23 08/23/23 metoprolol succinate 25 mg 25 mg PO QAM #30 tabs 08/21/23 08/25/23 08/25/23 tablet,extended release 24 hr tamsulosin 0.4 mg capsule 0.4 mg PO HS #30 caps 08/21/23 08/25/23 08/24/23 acetaminophen 325 mg tablet 650 mg PO Q6H PRN FEVER >100/PAIN 08/24/23 08/25/23 Unknown (Tylenol) alendronate 70 mg tablet (Fosamax) 70 mg PO WK 08/24/23 08/25/23 Unknown calcium carbonate 500 mg-vitamin 1 tab PO DAILY 08/24/23 08/25/23 08/25/23 D3 5 mcg (200 unit) tablet (Calcium 500 + D) cefdinir 300 mg capsule 300 mg PO Q12H 7 days #14 caps 08/24/23 08/25/23 08/25/23 digoxin 125 mcg (0.125 mg) tablet 0.125 mg PO HS 0208/25/23 08/24/23 (Digitek) food supplemt, lactose-reduced 1 ea PO TIDM 08/24/23 08/25/23 08/24/23 12:30 heparin lock flush (porcine) 10 0 unit IV DAILY 08/24/23 08/25/23 08/24/23 unit/mL intravenous solution lisinopril 10 mg tablet 20 mg PO DAILY 08/24/23 08/25/23 08/25/23 pantoprazole 40 mg tablet,delayed 40 mg PO BIDM 08/24/23 08/25/23 08/25/23 release povidone-iodine 10 % topical 1 applic topical TID 08/24/23 08/25/23 08/24/23 09:00 solution (Betadine) sodium chloride 0.9 % (flush) 10 ml IV DAILY 08/24/23 08/25/23 08/24/23 sodium chloride 0.9 % (flush) 10 ml IV TID 08/24/23 08/25/23 08/24/23 08:30 warfarin 3 mg tablet 3 mg PO HS 08/24/23 08/25/23 08/24/23 enoxaparin 80 mg/0.8 mL 80 mg subcut Q12H 08/25/23 08/25/23 08/25/23 subcutaneous syringe (Lovenox) Active Medications Generic Name Dose Route Start Last Admin Trade Name Freq PRN Reason Stop Dose Admin Atorvastatin Calcium 40 mg 08/25/23 21:00 09/04/23 20:55 Atorvastatin 40 Mg Tab PO 09/24/23 20:59 40 mg HS NILDA Administration Cyanocobalamin 1,000 mcg 08/26/23 09:00 09/05/23 08:58 Cyanocobalamin (B-12) 500 Mcg Tablet PO 09/25/23 08:59 Not Given QAM NILDA Digoxin 0.125 mg 08/25/23 18:00 09/04/23 17:06 Digoxin 0.125 Mg Tab PO 09/24/23 17:59 0.125 mg DAILY@1600 NILDA Administration Diltiazem HCl 180 mg 08/26/23 09:00 09/05/23 08:58 Diltiazem Hcl 180 Mg Capcr PO 09/25/23 08:59 Not Given QAM NILDA Fluconazole 400 mg 09/02/23 18:00 09/04/23 17:09 Fluconazole 100 Mg Tab PO 09/12/23 17:59 400 mg Q24H NILDA Administration Ceftriaxone Sodium 2,000 mg/ 50 mls @ 100 mls/hr 08/26/23 14:00 09/04/23 15:04 Dextrose IV 09/09/23 13:59 Infused Q24H NILDA Infusion Protocol Insulin Aspart 0 units 08/25/23 21:00 09/05/23 08:03 Insulin Aspart Per Unit Charge SC 09/24/23 20:59 1 units ACHS NILDA Administration Lactobacillus Acidophilus 1,250 mg 09/05/23 09:00 09/05/23 08:58 Advanced Probiotic 625 Mg Capsule PO 10/02/23 08:59 1,250 mg DAILY NILDA Administration Lisinopril 20 mg 08/26/23 09:00 09/04/23 08:54 Lisinopril 20 Mg Tab PO 09/25/23 08:59 20 mg DAILY NILDA Administration Magnesium Oxide 400 mg 08/28/23 09:00 09/05/23 08:58 Magnesium Oxide 400 Mg Tab PO 09/27/23 08:59 400 mg QAM NILDA Administration Metoprolol Succinate 25 mg 08/26/23 09:00 09/05/23 08:59 Metoprolol Succ 25mg Ext Rel Tab PO 09/25/23 08:59 Not Given QAM NILDA Pantoprazole Sodium 40 mg 08/26/23 08:00 09/05/23 08:10 Pantoprazole 40 Mg Tab PO 09/25/23 07:59 40 mg BIDM NILDA Administration Tamsulosin HCl 0.4 mg 08/25/23 21:00 09/04/23 20:55 Tamsulosin Hcl 0.4 Mg Cap PO 09/24/23 20:59 0.4 mg HS NILDA Administration Venlafaxine HCl 150 mg 08/26/23 09:00 09/05/23 08:58 Venlafaxine Hcl Xr 150 Mg Capxr PO 09/25/23 08:59 150 mg DAILY NILDA Administration NPO Date Last Intake of Fluids: 09/04/23 Time Last Intake of Fluids: 23:55 Date Last Intake of Solids: 09/04/23 Time Last Intake of Solids: 23:00 Past Medical History Medical History Chronic CHF (congestive heart failure) Hx of hepatitis C s/p treatment Dyslipidemia Type 2 diabetes mellitus Acrocyanosis CVA (cerebral vascular accident) punctate right occipital lobe lacunar infarct - MRI 07/29/23 Dry gangrene Anemia Atrial fibrillation with rapid ventricular response Bacteremia Septic shock Acute kidney injury Complicated urinary tract infection Hydronephrosis due to obstruction of ureter Ureterolithiasis Fracture of left wrist with malunion Closed fracture of left distal radius and ulna Acute encephalopathy History of COVID-19 History of colon polyps Anxiety HTN (hypertension) Past Family History Family History Grandmother Family history of diabetes mellitus Family history of colon cancer Grandfather Family history of colon cancer Aunt Family history of colon cancer Uncle Family history of colon cancer Past Surgical History Surgical History S/P wrist surgery History of colonoscopy History of hysterectomy History of tonsillectomy Social History Smoking Status: Former smoker tobacco type: cigarettes Do You Dip or Chew Tobacco: No Hx Alcohol Use: No Hx Substance Use: No substance use type: does not use Physical Exam Vital Signs Last Vital Signs Temp 36.8 C 09/05/23 10:15 Pulse 91 H 09/05/23 10:15 Resp 20 09/05/23 10:15 BP 126/69 09/05/23 10:15 Pulse Ox 97 09/05/23 10:15 O2 Del Method Room Air 09/05/23 10:15 Testing Laboratory Results 09/05/23 05:18 09/05/23 05:18 PT 32.4 Seconds (9.0-12.0) H 09/04/23 05:42 INR 3.2 (0.9-1.1) H 09/04/23 05:42 Urine Color Yellow 08/25/23 14:39 Urine Appearance Cloudy (Clear) A 08/25/23 14:39 Urine pH 6.0 (4.5-7.5) 08/25/23 14:39 Ur Specific [place] 1.013 (1.000-1.030) 08/25/23 14:39 Urine Protein Negative (Negative) 08/25/23 14:39 Urine Glucose (UA) Negative (Negative) 08/25/23 14:39 Urine Ketones Negative (Negative) 08/25/23 14:39 Urine Nitrite Negative (Negative) 08/25/23 14:39 Ur Leukocyte Esterase 3+ (Negative) H 08/25/23 14:39 Urine WBC (Auto) >30 /hpf (0-5) H 08/25/23 14:39 Urine RBC (Auto) 5-10 /hpf (0-4) H 08/25/23 14:39 U Hyaline Cast (Auto) 1-5 /lpf (0-5) 08/25/23 14:39 U Epithel Cells (Auto) 0-5 /lpf (0-5) 08/25/23 14:39 Urine Bacteria (Auto) Negative (Negative) 08/25/23 14:39 08/25/23 14:24 Aerobic Blood Culture - Final Blood No growth in Aerobic bottle after 5 days. Anaerobic Blood Culture - Final No growth in Anaerobic bottle after 5 days. 08/25/23 13:53 Aerobic Blood Culture - Final Blood No growth in Aerobic bottle after 5 days. Anaerobic Blood Culture - Final No growth in Anaerobic bottle after 5 days. 08/26/23 Unknown Catheter Tip Culture - Final Catheter Tip, Jugular No growth 08/25/23 14:39 Urine Culture - Final Urine,Clean Catch Florina albicans/dubliniensis 09/05/23 07:39 POC Glucose 163 H
[2023-09-05] MEDS ORDERED: ePHEDrine sulfate 50 MG/ML AMP IV PRN (10:49)
[2023-09-05] MEDS ORDERED: ATROPINE SULFATE 0.1 MG/ML 10ML SYR IV PRN (10:49)
[2023-09-05] MEDS ORDERED: PROMETHAZINE HCL 6.25 MG in SODIUM CHLORIDE 0.9% 50 ML IV PRN (10:49)
[2023-09-05] MEDS ORDERED: HYDROmorphone INJ 1 MG/ML SYRINGE IV PRN (10:49)
[2023-09-05] MEDS: LACTATED RINGER'S 1,000 ML IV SCH (11:04)
[2023-09-05] MEDS: ceFAZolin 2000MG 2,000 MG/15 ML SYR IV ONE (11:53)
--- NOTE | 2023-09-05 12:37 | Fluoroscopy Report ---
INTRAOPERATIVE RADIOGRAPH CLINICAL HISTORY: Right ureteral stent placement. Fluoro time: 3 seconds Ka,r: 0.84 mGy FINDINGS: A single spot fluoroscopic view of the right abdomen is correlated with abdominal CT dated 09/01/2023. The image shows the proximal end of a right ureteral stent projecting over the renal pelvis . No calcifications are clearly seen along the imaged portions of the stent. IMPRESSION: Intraoperative image from a right ureteral stent placement as above. Electronically signed by: Pravin Nguyen M.D. 09/05/2023 12:36 PM
--- NOTE | 2023-09-05 12:43 | Operative Report ---
PG Post Operative Report Pre & Post Diagnosis Operation Date: 09/05/23 10:55 Preoperative diagnosis: Right ureteral stone Postoperative diagnosis: Right ureteral stone I identified the patient and participated in the time-out.: Yes Procedure Operation Date: 09/05/23 10:55 Cystoscopy, right ureteroscopy, basket extraction of stone, right ureteral stent exchange Surgeon Stu Mahajan MD Vp & General Counsel None Estimated Blood Loss 0 Findings Consistent with Post-Op Diagnosis Specimens Right ureteral stone for chemical analysis Debris from right kidney for Gram stain, culture Drains 6 Slovenian by 24 cm double-J ureteral stent of the right ureter 16 Slovenian Joshi catheter per urethra Anesthesia Type General Complications none Disposition Accompanied Patient To Recovery: Yes Disposition: Recovery Room Indications This is a 73-year-old female who previously underwent right ureteral stent placement for an obstructing stone in the setting of infection. Postoperative course has been complicated by recurrent infections and complications from pressors. She returns to the OR today for definitive stone removal. Description of Procedure The patient was identified in the holding area and informed consent was confirmed. She was marked on the right side, then was taken to the operating room where general anesthesia was initiated. She was placed in the dorsal lithotomy position with all pressure points appropriately padded. She was prepped and draped in the usual sterile fashion and a preoperative timeout was performed. A well-lubricated cystoscope was inserted per urethra and panendoscopy was performed. The urethra was normal with no strictures or mucosal abnormalities. Her bladder appeared grossly normal with no tumors or stones appreciated. Ure teral orifices were in orthotopic position bilaterally The end of the ureteral stent was visible from the right ureteral orifice. A pair of stent graspers was used to withdraw the stent to the urethral meatus. The stent was then cannulated using a 0.038 inch zip wire which advanced easily up to the kidney under fluoroscopic guidance. The stent was removed. Alongside the wire, a semirigid ureteroscope was advanced. Her stone was visible in the distal ureter. The Nitinol wire basket was used to grasp and withdraw the stone. This was collected and sent for chemical analysis. The semirigid ureteroscope was then reinserted and advanced up to the kidney. No additional stones were seen. There was some debris in the kidney. Some of this was grasped with a wire basket and withdrawn. This was sent for Gram stain and culture. The ureteroscope was withdrawn, surveying the ureter on the way out. There was no evidence of significant trauma or perforation. The cystoscope was reinserted over the wire, then a 6 Slovenian x 24 centimeter double-J ureteral stent was advanced. When the wire was removed, the proximal curl was visible in the kidney on x-ray and the distal curl was in the bladder. Strings were left attached to facilitate removal. These were secured to her prepubic skin using a Tegaderm. A 16 Slovenian Joshi catheter was advanced per urethra and the balloon was inflated with 10 mL of normal saline. Catheter was attached to gravity drainage. The patient was then awakened from anesthesia and was brought to the PACU in stable condition. I attest to the content of the Intraoperative Record and any orders documented therein. Any exceptions are noted below.
--- NOTE | 2023-09-05 13:39 | Anesthesiology Progress Note ---
Date of Service September 05, 2023 Anesthesia Post Procedure Vital Signs Vital Signs: Temp Pulse Pulse Pulse Pulse Resp BP 09/05/23 13:20 78 13 130/60 09/05/23 13:10 37.1 C 74 12 126/59 L 09/05/23 13:00 74 12 121/59 L 09/05/23 12:50 83 11 L 134/70 09/05/23 12:42 37.0 C 78 12 137/62 09/05/23 10:15 36.8 C 91 H 20 09/05/23 07:40 36.6 C 73 19 137/68 09/05/23 03:00 36.7 C 70 16 09/04/23 23:21 37.1 C 72 18 09/04/23 23:19 71 09/04/23 20:00 09/04/23 19:00 36.9 C 72 18 09/04/23 17:06 81 09/04/23 15:57 36.5 C 70 18 121/66 09/04/23 15:22 74 BP Pulse Ox O2 Del Method 09/05/23 13:20 92 Room Air 09/05/23 13:10 93 Room Air 09/05/23 13:00 94 Room Air 09/05/23 12:50 95 Room Air 09/05/23 12:42 100 Room Air 09/05/23 10:15 126/69 97 Room Air 09/05/23 07:40 93 Room Air 09/05/23 03:00 114/64 93 Room Air 09/04/23 23:21 121/67 91 Room Air 09/04/23 23:19 09/04/23 20:00 Room Air 09/04/23 19:00 119/69 90 Room Air 09/04/23 17:06 09/04/23 15:57 100 Room Air 09/04/23 15:22 Transfer of Care Handoff Completed per policy Notes Mental Status: alert / awake / arousable and participated in evaluation Nausea / Vomiting: adequately controlled Pain: adequately controlled Airway Patency, RR, SpO2: stable & adequate BP & HR: stable & adequate Hydration State: stable & adequate Anesthetic Complications: no major complications apparent and Pt Satisfied with anesthetic care
[2023-09-05] MEDS: ceFAZolin 3000MG/72.5 ML BAG IV ONE (13:49)
[2023-09-05] MEDS: ceFAZolin 2,000 MG/15 ML IV PUSH IV ONE (13:49)
[2023-09-06 06:33] LABS: Hematocrit (blood only) 28.2 % (37.0-47.0); Hemoglobin 8.8 g/dl (12.0-16.0); Mean Corpuscular Hemoglobin 28.2 pg (25.0-34.0); Mean Corpuscular Hgb Conc 31.2 g/dL (32.0-36.0); Mean Corpuscular Volume 90.4 fL (80.0-100.0); Mean Platelet Volume 9.5 fL (9.4-12.4); Platelet Count 303 K/uL (130-400); RDW Coefficient of Variation 15.4 % (11.5-14.5); Red Blood Count 3.12 M/uL (4.20-5.40); White Blood Count 5.81 K/ul (4.8-10.8)
[2023-09-06 06:54] LABS: INR 2.5 (0.9-1.1); Prothrombin Time 26.1 Seconds (9.0-12.0)
[2023-09-06 07:05] LABS: Calcium 8.8 mg/dl (8.6-10.3); Creatinine Clr Calc Pharmacy 85.9 ml/min; Est GFR (African American) 104.8 ml/min; Est GFR (Non-African American) 90.4 ml/min; Phosphorus 3.5 mg/dl (2.5-4.9); Potassium 4.6 mmol/L (3.5-5.1)
--- NOTE | 2023-09-06 12:27 | Urology Progress Note ---
Date of Service September 06, 2023 Assessment & Plan (1) Complicated urinary tract infection: (2) Ureteral stent present: (3) Ureterolithiasis: Plan POD #1 s/p Cystoscopy, right ureteroscopy, basket extraction of stone, right ureteral stent exchange Overall feeling well following her procedure yesterday. No reported pain at present. She is afebrile and hemodynamically stable. Labs today reviewed - WBC 5.81, Hemoglobin 8.8, Creatinine 0.60. Urine culture from 08/25 with Florina albicans, on fluconazole Blood cultures from 08/25 were negative. She remains on ceftriaxone. Joshi draining clear yellow urine. Tethered stent secured to thigh. Maintain stent for now. Will tentatively plan for tethered stent removal at bedside Friday 09/08. CT abdomen pelvis from 09/01/2023 reviewed -Persistence of 1.6 cm hypodense focus in the right kidney, possible renal abscess. Per interventional radiology, the fluid collection around her right kidney is too small to drain. Continue antibiotic therapy. Will arrange outpatient follow-up and repeat imaging with our service. Urology will follow peripherally. Please call with any questions or concerns. Admission and Anticipated Discharge Date Admission Date: August 25, 2023 Subjective Patient examined at bedside this AM. Awake, sitting in bedside chair on arrival. No acute distress. Joshi draining clear yellow urine. Denies any pain or discomfort at present. No fevers. Tethered stent secured to thigh. Review of Systems Constitutional: as per Subjective / HPI Genitourinary: as per Subjective / HPI Physical Exam Constitutional: no acute distress Respiratory: no respiratory distress and no labored breathing Musculoskeletal: Head/Neck/Chest: normocephalic Skin: Gangrene noted on b/l hands Neurologic: awake Psychiatric: Orientation: alert and oriented x 3 Genitourinary: Joshi intact. Tethered stent secured to thigh. Results & Data Vital Signs (Past 12 Hours) Vital Signs Temp Pulse Pulse Resp BP BP Pulse Ox 09/06/23 08:20 09/06/23 07:42 36.7 C 85 19 146/72 H 94 09/06/23 07:09 87 09/06/23 03:58 36.6 C 84 19 147/75 H 97 09/05/23 23:44 36.5 C 80 18 116/67 97 09/05/23 22:52 87 O2 Del Method 09/06/23 08:20 Room Air 03/08/24 07:42 Room Air 09/06/23 07:09 09/06/23 03:58 Room Air 09/05/23 23:44 Room Air 09/05/23 22:52 PG Care Time/CCT Total # of Minutes Spent Total Time Spent with Patient: Total time spent is greater than 50% in coordination of care (as documented) at patient's floor/unit and/or counseling patient: Coding Level of Care Code 06117 SUB INP/OBS CARE 2/35MIN Diagnoses Complicated urinary tract infection N39.0 Ureteral stent present Z96.0 Ureterolithiasis N20.1
--- NOTE | 2023-09-06 16:00 | Hospitalist Progress Note ---
Date of Service September 06, 2023 Assessment & Plan (1) Bacteremia due to Gram-positive bacteria: (2) Acute UTI: (3) Hypokalemia: (4) Hypomagnesemia: (5) Ureteral stent present: (6) Type 2 diabetes mellitus: (7) Dry gangrene: (8) Dyslipidemia: (9) HTN (hypertension): (10) Anemia: (11) Atrial fibrillation with rapid ventricular response: Plan 73 yo F with a complicated PMHx significant for extremity gangrene [s/p leech therapy] developed during last admission (07/26/23-08/21) in the setting of septic shock due to urinary source, poor IV access in setting of continuously progressing/demarcating extremity gangrene, HTN, HLD, T2DM, HCV status posttreatment, anxiety/mood disorder admitted with bacteremia. She is being managed for the following: Significant imaging status admission: Admitting CTAP 08/25/2023: Tiny focus of nonocclusive thrombus abutting the catheter within the right IJ vein. Stable 6 mm nodule within the right breast. F/U w/ OP USG. 2.2 cm enhancing lesion within the left adductor muscle, may represent hemangioma. Follow-up nonemergent dedicated MRI of the left thigh is recommended for further evaluation. Cholelithiasis Findings suggestive of persistent right-sided pyelonephritis. 1.6 cm hypodense focus within the right kidney which is new from 07/25/2023 CTAP - concern for small renal abscess or renal infarct. 1 week CTAP was recommended to ensure resolution. Right ureteral stent in good position. 4 mm stone within the proximal to mid right ureteral adjacent to the stent. 09/01/2023 CTAP: Findings suggestive of persistent right-sided pyelonephritis, pyelitis and ureteritis. Unchanged 1.6 cm hypodense focus within the right kidney possibly a small renal abscess. 1 to 2-week follow-up renal ultrasound recommended. Bacteremia with Alph strep not S. pne/enteroco Metabolic encephalopathy: Likely secondary to above Complicated UTI: Florina albicans/dubliniensis Patient presented to the ED 08/24 with concern for increasing baseline confusion, was afebrile/WBC WNL/BP WNL and not septic at presentation. Patient was discharged previously with right IJ catheter due to poor IV access. Removed on this admission. Catheter tip was sent for culture. 08/24 blood culture positive for alpha Streptococcus not Streptococcus pneumonia/Enterococcus 08/24 and 08/25 urine culture positive for Florina albicans 08/26 IJ catheter tip culture negative for growth. Echo ordered, noting unchanged mitral valve thickening from echo done during previous hospitalization on 07/26/23. Low suggestion of endocarditis at this time. 09/02/2023 -Per IR, abscess too small for drainage. Recommended conservative management with help of ID. ID evaluated 09/02/23: Continue Rocephin 2 g daily until 09/08/2023 [to complete treatment for bacteremia], then changed to Rocephin 1 g IV daily [to continue treatment for renal abscess] for total of 3 weeks. EOT 09/22/2023. Due to persistent right pyelonephritis/abscess on repeat CT scan, ID recommending fluconazole 400 mg p.o./IV daily until 09/22/[address] scan in 2 weeks to follow-up on the status of right renal abscess. Right ureteral stent in place from 07/26 ---->> on 09/05/2023:: Status post right ureteroscopy, stone removal and stent exchange. Follow culture from the OR from 09/04. Follow stone studies. Patient will need follow-up with urology upon discharge Patient will need follow-up with infectious disease on discharge. Poor vascular access Extremity gangrene Patient was previously discharged with right IJ catheter, taken out on readmission. Catheter tip culture negative for growth. Patient has right-sided ultrasound-guided IV line placed 09/05/2023 at this time. This should be enough for IV therapy at this point. Nonocclusive thrombus in the right IJ: Right IJ catheter has been discontinued. Patient already on anticoagulation for A-fib. Continue warfarin. Extremity gangrene s/p leech therapy: Pt with progressing/demarcating extremity gangrene. Orthopedics evaluated, medical management/Occupational Therapy/pain control/no further orthopedic intervention at this time. Plan to allow the areas to demarcate to help with future amputation. Follow-up with orthopedics on discharge. Atrial fibrillation with RVR: Noted during recent admission. Continue with metoprolol, diltiazem, digoxin. Continue with warfarin. Monitor PT/INR. Discussed with urology, okay to resume warfarin from their point of view. Other chronic medical conditions: Continue with/resume home meds as and when able. T2DM: A1c of 7.1 in July 2023. Hold metformin. Sliding scale insulin. Dyslipidemia: Continue home statin HTN: Chronic, stable. Continue outpatient regimen. Anemia: Ongoing issue from recent admission but is stable to improving. Mood disorder: Continue home Effexor GERD: Continue PPI DVT prophylaxis: Therapeutic INR. On warfarin. Dispo: PT/OT, after 09/04 culture and sensitivity results out. CODE STATUS: Full code Admission and Anticipated Discharge Date Admission Date: August 25, 2023 Subjective Patient was seen and examined at bedside. Patient was sitting up in chair, on room air, resting comfortably, not in any acute distress. Patient reports eating okay and moving bowels okay, denies any pain or discomfort. Patient denies any fever/chills/headache/dizziness/chest pain. Physical Exam Physical Exam: General: Alert, oriented. No acute distress Skin: gangrene noted on hands and fore feet bilaterally Psych: Appropriate mood and affect Neuro:difficulty with helpdesk specialist, weakness HEENT: NC/AT, noted gangrene on nasal tip CV: RRR, Normal s1, s2. No murmurs appreciated Resp: Breath sounds clear bilaterally, no increased effort of breathing. Abdomen: Soft, nontender Extremities: gangrene noted on hands and feet bilaterally Results & Data Results & Data Vital Signs (Past 12 Hours) Vital Signs Temp Pulse Pulse Resp BP BP Pulse Ox 09/06/23 11:41 36.5 C 70 19 100/60 95 09/06/23 08:20 09/06/23 07:42 36.7 C 85 19 146/72 H 94 09/06/23 07:09 87 09/06/23 03:58 36.6 C 84 19 147/75 H 97 O2 Del Method 09/06/23 11:41 Room Air 09/06/23 08:20 Room Air 09/06/23 07:42 Room Air 09/06/23 07:09 09/06/23 03:58 Room Air (6) Type 2 diabetes mellitus Diabetes mellitus snf insulin use: without snf use Diabetes mellitus complication status: with other specified complication Qualified Code(s): E11.69 - Type 2 diabetes mellitus with other specified complication (9) HTN (hypertension) Hypertension type: primary hypertension Qualified Code(s): I10 - Essential (primary) hypertension (10) Anemia Anemia type: unspecified type Qualified Code(s): D64.9 - Anemia, unspecified
[2023-09-06] MEDS: WARFARIN SOD 3 MG TAB PO SCH (16:57)
[2023-09-07 06:30] LABS: Hematocrit (blood only) 25.4 % (37.0-47.0); Hemoglobin 8.1 g/dl (12.0-16.0); Mean Corpuscular Hemoglobin 28.4 pg (25.0-34.0); Mean Corpuscular Hgb Conc 31.9 g/dL (32.0-36.0); Mean Corpuscular Volume 89.1 fL (80.0-100.0); Mean Platelet Volume 9.5 fL (9.4-12.4); Platelet Count 315 K/uL (130-400); RDW Coefficient of Variation 15.6 % (11.5-14.5); RDW Standard Deviation 50.8 fL (36.4-46.3); Red Blood Count 2.85 M/uL (4.20-5.40); White Blood Count 6.35 K/ul (4.8-10.8)
[2023-09-07 06:40] LABS: INR 2.5 (0.9-1.1); Prothrombin Time 25.7 Seconds (9.0-12.0)
[2023-09-07 06:50] LABS: Calcium 8.7 mg/dl (8.6-10.3); Magnesium 1.8 mg/dl (1.7-2.4); Potassium 4.1 mmol/L (3.5-5.1)
[2023-09-07 06:55] LABS: BUN Creatinine Ratio 27.4 (10-20); Creatinine Clr Calc Pharmacy 83.1 ml/min; Est GFR (African American) 103.7 ml/min; Est GFR (Non-African American) 89.5 ml/min; Phosphorus 3.4 mg/dl (2.5-4.9)
--- NOTE | 2023-09-07 16:38 | Hospitalist Progress Note ---
Date of Service September 07, 2023 Assessment & Plan (1) Bacteremia due to Gram-positive bacteria: (2) Acute UTI: (3) Hypokalemia: (4) Hypomagnesemia: (5) Ureteral stent present: (6) Type 2 diabetes mellitus: (7) Dry gangrene: (8) Dyslipidemia: (9) HTN (hypertension): (10) Anemia: (11) Atrial fibrillation with rapid ventricular response: Plan 73 yo F with a complicated PMHx significant for extremity gangrene [s/p leech therapy] developed during last admission (07/26/23-08/21) in the setting of septic shock due to urinary source, poor IV access in setting of continuously progressing/demarcating extremity gangrene, HTN, HLD, T2DM, HCV status posttreatment, anxiety/mood disorder admitted with bacteremia. She is being managed for the following: Significant imaging status admission: Admitting CTAP 08/25/2023: Tiny focus of nonocclusive thrombus abutting the catheter within the right IJ vein. Stable 6 mm nodule within the right breast. F/U w/ OP USG. 2.2 cm enhancing lesion within the left adductor muscle, may represent hemangioma. Follow-up nonemergent dedicated MRI of the left thigh is recommended for further evaluation. Cholelithiasis Findings suggestive of persistent right-sided pyelonephritis. 1.6 cm hypodense focus within the right kidney which is new from 07/25/2023 CTAP - concern for small renal abscess or renal infarct. 1 week CTAP was recommended to ensure resolution. Right ureteral stent in good position. 4 mm stone within the proximal to mid right ureteral adjacent to the stent. 09/01/2023 CTAP: Findings suggestive of persistent right-sided pyelonephritis, pyelitis and ureteritis. Unchanged 1.6 cm hypodense focus within the right kidney possibly a small renal abscess. 1 to 2-week follow-up renal ultrasound recommended. Bacteremia with Alph strep not S. pne/enteroco Metabolic encephalopathy: Likely secondary to above Complicated UTI: Florina albicans/dubliniensis Patient presented to the ED 08/24 with concern for increasing baseline confusion, was afebrile/WBC WNL/BP WNL and not septic at presentation. Patient was discharged previously with right IJ catheter due to poor IV access. Removed on this admission. Catheter tip was sent for culture. 08/24 blood culture positive for alpha Streptococcus not Streptococcus pneumonia/Enterococcus 08/24 and 08/25 urine culture positive for Florina albicans 08/26 IJ catheter tip culture negative for growth. Echo ordered, noting unchanged mitral valve thickening from echo done during previous hospitalization on 07/26/23. Low suggestion of endocarditis at this time. 09/02/2023 -Per IR, abscess too small for drainage. Recommended conservative management with help of ID. ID evaluated 09/02/23: Continue Rocephin 2 g daily until 09/08/2023 [to complete treatment for bacteremia], then changed to Rocephin 1 g IV daily [to continue treatment for renal abscess] for total of 3 weeks. EOT 09/22/2023. Due to persistent right pyelonephritis/abscess on repeat CT scan, ID recommending fluconazole 400 mg p.o./IV daily until 09/22/[address] scan in 2 weeks to follow-up on the status of right renal abscess. Right ureteral stent in place from 07/26 ---->> on 09/05/2023:: Status post right ureteroscopy, stone removal and stent exchange. Follow culture from the OR from 09/04. Follow stone studies. Patient will need follow-up with urology upon discharge Patient will need follow-up with infectious disease on discharge. Poor vascular access Extremity gangrene Patient was previously discharged with right IJ catheter, taken out on readmission. Catheter tip culture negative for growth. Patient has right-sided ultrasound-guided IV line placed 09/05/2023 at this time. This should be enough for IV therapy at this point. Nonocclusive thrombus in the right IJ: Right IJ catheter has been discontinued. Patient already on anticoagulation for A-fib. Continue warfarin. Extremity gangrene s/p leech therapy: Pt with progressing/demarcating extremity gangrene. Orthopedics evaluated, medical management/Occupational Therapy/pain control/no further orthopedic intervention at this time. Plan to allow the areas to demarcate to help with future amputation. Follow-up with orthopedics on discharge. Atrial fibrillation with RVR: Noted during recent admission. Continue with metoprolol, diltiazem, digoxin. Continue with warfarin. Monitor PT/INR. Discussed with urology, okay to resume warfarin from their point of view. Other chronic medical conditions: Continue with/resume home meds as and when able. T2DM: A1c of 7.1 in July 2023. Hold metformin. Sliding scale insulin. Dyslipidemia: Continue home statin HTN: Chronic, stable. Continue outpatient regimen. Anemia: Ongoing issue from recent admission but is stable to improving. Mood disorder: Continue home Effexor GERD: Continue PPI DVT prophylaxis: Therapeutic INR. On warfarin. Dispo: PT/OT, after 09/04 culture and sensitivity results out. CODE STATUS: Full code Pt's dtr susan updated in detail over the phone 09/06. Answered all her questions. Asked her if she knows she can read my progress note on the patient, she stated she is aware she can access them. I asked her if she has any questions after reading my notes, she is free to request call back and i can explain any queries she has. Admission and Anticipated Discharge Date Admission Date: August 25, 2023 Subjective Patient was seen and examined at bedside. Patient was lying in bed, on room air, resting comfortably, not in any acute distress. Patient reports eating okay and moving bowels okay, denies any pain or discomfort. Patient denies any fever/chills/headache/dizziness/chest pain. Physical Exam Physical Exam: General: Alert, oriented. 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 No murmurs appreciated Resp: Breath sounds clear bilaterally, no increased effort of breathing. Abdomen: Soft, nontender Extremities: gangrene noted on hands and feet bilaterally Results & Data Results & Data Vital Signs (Past 12 Hours) Vital Signs Temp Pulse Pulse Resp BP BP Pulse Ox 09/07/23 15:25 36.9 C 70 18 111/61 94 09/07/23 11:00 36.6 C 69 19 117/67 94 09/07/23 06:45 36.6 C 72 20 122/65 96 09/07/23 05:47 70 O2 Del Method 09/07/23 15:25 Room Air 09/07/23 11:00 Room Air 09/07/23 06:45 Room Air 09/07/23 05:47 (6) Type 2 diabetes mellitus Diabetes mellitus intermediate insulin use: without intermediate use Diabetes mellitus complication status: with other specified complication Qualified Code(s): E11.69 - Type 2 diabetes mellitus with other specified complication (9) HTN (hypertension) Hypertension type: primary hypertension Qualified Code(s): I10 - Essential (primary) hypertension (10) Anemia Anemia type: unspecified type Qualified Code(s): D64.9 - Anemia, unspecified
[2023-09-08 06:55] LABS: Mean Corpuscular Hemoglobin 28.3 pg (25.0-34.0); Mean Corpuscular Volume 88.3 fL (80.0-100.0); Mean Platelet Volume 9.6 fL (9.4-12.4); Platelet Count 311 K/uL (130-400); RDW Coefficient of Variation 15.7 % (11.5-14.5); RDW Standard Deviation 50.4 fL (36.4-46.3); Red Blood Count 2.83 M/uL (4.20-5.40); White Blood Count 5.81 K/ul (4.8-10.8)
[2023-09-08 07:05] LABS: BUN Creatinine Ratio 26.7 (10-20); Calcium 8.7 mg/dl (8.6-10.3); Est GFR (African American) 104.8 ml/min; Est GFR (Non-African American) 90.4 ml/min; Potassium 4.1 mmol/L (3.5-5.1)
[2023-09-08 07:25] LABS: INR 2.4 (0.9-1.1); Prothrombin Time 25.2 Seconds (9.0-12.0)
--- NOTE | 2023-09-08 15:26 | Hospitalist Progress Note ---
Date of Service September 08, 2023 Assessment & Plan (1) Bacteremia due to Gram-positive bacteria: (2) Acute UTI: (3) Hypokalemia: (4) Hypomagnesemia: (5) Ureteral stent present: (6) Type 2 diabetes mellitus: (7) Dry gangrene: (8) Dyslipidemia: (9) HTN (hypertension): (10) Anemia: (11) Atrial fibrillation with rapid ventricular response: Plan 73 yo F with a complicated PMHx significant for extremity gangrene [s/p leech therapy] developed during last admission (07/26/23-08/21) in the setting of septic shock due to urinary source, poor IV access in setting of continuously progressing/demarcating extremity gangrene, HTN, HLD, T2DM, HCV status posttreatment, anxiety/mood disorder admitted with bacteremia. She is being managed for the following: Significant imaging status admission: Admitting CTAP 08/25/2023: Tiny focus of nonocclusive thrombus abutting the catheter within the right IJ vein. Stable 6 mm nodule within the right breast. F/U w/ OP USG. 2.2 cm enhancing lesion within the left adductor muscle, may represent hemangioma. Follow-up nonemergent dedicated MRI of the left thigh is recommended for further evaluation. Cholelithiasis Findings suggestive of persistent right-sided pyelonephritis. 1.6 cm hypodense focus within the right kidney which is new from 07/25/2023 CTAP - concern for small renal abscess or renal infarct. 1 week CTAP was recommended to ensure resolution. Right ureteral stent in good position. 4 mm stone within the proximal to mid right ureteral adjacent to the stent. 09/01/2023 CTAP: Findings suggestive of persistent right-sided pyelonephritis, pyelitis and ureteritis. Unchanged 1.6 cm hypodense focus within the right kidney possibly a small renal abscess. 1 to 2-week follow-up renal ultrasound recommended. Bacteremia with Alph strep not S. pne/enteroco Metabolic encephalopathy: Likely secondary to above Complicated UTI: Florina albicans/dubliniensis Patient presented to the ED 08/24 with concern for increasing baseline confusion, was afebrile/WBC WNL/BP WNL and not septic at presentation. Patient was discharged previously with right IJ catheter due to poor IV access. Removed on this admission. Catheter tip was sent for culture. 08/24 blood culture positive for alpha Streptococcus not Streptococcus pneumonia/Enterococcus 08/24 and 08/25 urine culture positive for Florina albicans 08/26 IJ catheter tip culture negative for growth. Echo ordered, noting unchanged mitral valve thickening from echo done during previous hospitalization on 07/26/23. Low suggestion of endocarditis at this time. 09/02/2023 -Per IR, abscess too small for drainage. Recommended conservative management with help of ID. ID evaluated 09/02/23: Continue Rocephin 2 g daily until 09/08/2023 [to complete treatment for bacteremia], then changed to Rocephin 1 g IV daily [to continue treatment for renal abscess] for total of 3 weeks. EOT 09/22/2023. Due to persistent right pyelonephritis/abscess on repeat CT scan, ID recommending fluconazole 400 mg p.o./IV daily until 09/22/[address] scan in 2 weeks to follow-up on the status of right renal abscess. Right ureteral stent in place from 07/26 ---->> on 09/05/2023:: Status post right ureteroscopy, stone removal and stent exchange. Follow culture from the OR from 09/04. Follow stone studies. US renal for f/u rt renal abscess sent, will follow. Once 09/04 C/S are final, will reach out to ID. Change rocpehin to 1g daily from krista per ID recs. Joshi cath Mx per Uro recs. Patient will need follow-up with urology upon discharge Patient will need follow-up with infectious disease on discharge. Poor vascular access Extremity gangrene Patient was previously discharged with right IJ catheter, taken out on readmission. Catheter tip culture negative for growth. Patient has right-sided ultrasound-guided IV line placed 09/05/2023 at this time. This should be enough for IV therapy at this point. Nonocclusive thrombus in the right IJ: Right IJ catheter has been discontinued. Patient already on anticoagulation for A-fib. Continue warfarin. Extremity gangrene s/p leech therapy: Pt with progressing/demarcating extremity gangrene. Orthopedics evaluated, medical management/Occupational Therapy/pain control/no further orthopedic intervention at this time. Plan to allow the areas to demarcate to help with future amputation. Follow-up with orthopedics on discharge. Atrial fibrillation with RVR: Noted during recent admission. Continue with metoprolol, diltiazem, digoxin. Continue with warfarin. Monitor PT/INR. Discussed with urology, okay to resume warfarin from their point of view. Other chronic medical conditions: Continue with/resume home meds as and when able. T2DM: A1c of 7.1 in July 2023. Hold metformin. Sliding scale insulin. Dyslipidemia: Continue home statin HTN: Chronic, stable. Continue outpatient regimen. Anemia: Ongoing issue from recent admission but is stable to improving. Mood disorder: Continue home Effexor GERD: Continue PPI DVT prophylaxis: Therapeutic INR. On warfarin. Dispo: PT/OT, after 09/04 culture and sensitivity results out. CODE STATUS: Full code Pt's dtr susan updated in detail over the phone 09/06. Answered all her questions. Asked her if she knows she can read my progress note on the patient, she stated she is aware she can access them. I asked her if she has any questions after reading my notes, she is free to request call back and i can explain any queries she has. Admission and Anticipated Discharge Date Admission Date: August 25, 2023 Subjective Patient was seen and examined at bedside. Patient was lying in bed, on room air, resting comfortably, not in any acute distress. Patient reports eating okay and moving bowels okay, denies any pain or discomfort. Patient denies any fever/chills/headache/dizziness/chest pain. Per RN, no new acute events overnight. Physical Exam Physical Exam: General: Alert, oriented. 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 No murmurs appreciated Resp: Breath sounds clear bilaterally, no increased effort of breathing. Abdomen: Soft, nontender Extremities: gangrene noted on hands and feet bilaterally Results & Data Results & Data Vital Signs (Past 12 Hours) Vital Signs Temp Pulse Pulse Resp BP Pulse Ox O2 Del Method 09/08/23 15:03 36.7 C 65 18 111/58 L 98 Room Air 09/08/23 10:50 36.9 C 67 18 129/64 98 Room Air 09/08/23 07:41 70 09/08/23 07:05 36.8 C 70 18 132/70 98 Room Air 09/08/23 03:34 36.7 C 66 18 118/65 93 Room Air (6) Type 2 diabetes mellitus Diabetes mellitus shelter insulin use: without shelter use Diabetes mellitus complication status: with other specified complication Qualified Code(s): E11.69 - Type 2 diabetes mellitus with other specified complication (9) HTN (hypertension) Hypertension type: primary hypertension Qualified Code(s): I10 - Essential (primary) hypertension (10) Anemia Anemia type: unspecified type Qualified Code(s): D64.9 - Anemia, unspecified
[2023-09-09 09:24] LABS: Hematocrit (blood only) 26.3 % (37.0-47.0); Hemoglobin 8.4 g/dl (12.0-16.0); Mean Corpuscular Hgb Conc 31.9 g/dL (32.0-36.0); Mean Corpuscular Volume 87.7 fL (80.0-100.0); Mean Platelet Volume 9.1 fL (9.4-12.4); Platelet Count 268 K/uL (130-400); RDW Coefficient of Variation 15.3 % (11.5-14.5); RDW Standard Deviation 49.1 fL (36.4-46.3); White Blood Count 4.83 K/ul (4.8-10.8)
--- NOTE | 2023-09-09 09:39 | Ultrasound Report ---
RENAL ULTRASOUND HISTORY: Follow-up study in a patient with reported right-sided renal abscess f/u right renal absces s COMPARISON: CT 09/01/2023 FINDINGS: Right kidney: 10.4 x 4.4 x 5.2 cm. Cyst of the inferior pole measures 9 mm. Previously noted 1.600 m possible right renal abscess is not definitively seen. Right-sided ureteral stent again noted. No hyd ronephrosis. Normal corticomedullary differentiation and cortical thickness. Left kidney: 10.1 x 6.0 x 5.4 cm. 1.6 cm cyst. No hydronephrosis. Normal corticomedullary differentia tion and cortical thickness. Bladder: Decompressed with Joshi catheter. IMPRESSION: 1. No hydronephrosis. 2. Right-sided ureteral stent redemonstrated. 3. The previously questioned small right renal abscess is not visualized by ultrasound. ACT 112: Negative or not required by law. Electronically signed by: Morteza Boogie M.D. 09/09/2023 9:37 AM
--- NOTE | 2023-09-09 10:10 | Urology Progress Note ---
Date of Service September 09, 2023 Assessment & Plan (1) Ureterolithiasis: (2) Complicated urinary tract infection: Plan: Patient s/p Cystoscopy, right ureteroscopy, basket extraction of stone, right ureteral stent exchange on 09/04. Subjectively doing well. She is afebrile and hemodynamically stable. Labs today reviewed - WBC 4.83, Hemoglobin 8.4, Creatinine 0.60 (09/07). Urine culture from 08/25 with Florina albicans. Blood cultures from 08/25 were negative. She remains on Ceftriaxone and Fluconazole. Kidney aspirate from 09/04 is showing Florina albicans and Enterococcus VRE. Recommend follow culture and tailor antibiotics per sensitivities. Tethered stent was removed at bedside today, patient tolerated well. Joshi draining clear yellow urine - can consider voiding trial prior to discharge. CT abdomen pelvis from 09/01/2023 showed persistence of 1.6 cm hypodense focus in the right kidney, possible renal abscess. Per interventional radiology, the fluid collection around her right kidney is too small to drain. She had renal US today which showed no hydronephrosis, previous 1.6 cm hypodense focus in the right kidney was not visualized by sonography. Continue with antibiotic therapy. Will arrange outpatient follow-up and repeat imaging with our service. will sign off, please call with any questions or concerns. Admission and Anticipated Discharge Date Admission Date: August 25, 2023 Subjective Patient seen and examined at bedside this morning. Awake, and resting in bed, no distress. Denies flank pain or other concerns. Joshi patent and draining clear yellow. No fevers. Review of Systems Constitutional: as per Subjective / HPI Genitourinary: as per Subjective / HPI Physical Exam Constitutional: no acute distress Respiratory: no respiratory distress and no labored breathing Musculoskeletal: Head/Neck/Chest: normocephalic Skin: Gangrene noted on b/l hands/feet Neurologic: awake Psychiatric: Orientation: alert and oriented x 3 Genitourinary: Joshi intact. Tethered stent strings secured to pre-pubic area with tegaderm. On exam, tethered stent is already protruding from urethra. Tethered stent was removed without difficulty. Patient tolerated well. Results & Data Vital Signs (Past 12 Hours) Vital Signs Temp Pulse Pulse Resp BP BP Pulse Ox 09/09/23 07:52 36.6 C 64 16 126/64 94 09/08/23 23:04 36.9 C 66 14 127/67 98 O2 Del Method 09/09/23 07:52 Room Air 09/08/23 23:04 Room Air PG Care Time/CCT Total # of Minutes Spent Total Time Spent with Patient: Total time spent is greater than 50% in coordination of care (as documented) at patient's floor/unit and/or counseling patient: Coding Level of Care Code 38449 SUB INP/OBS CARE 07/25MIN Diagnoses Ureterolithiasis N20.1 Complicated urinary tract infection N39.0
[2023-09-09] MEDS ORDERED: DAPTOmycin 600 MG in SYRINGE 0 ML IV SCH (12:15)
[2023-09-09] MEDS: PROMETHAZINE HCL 12.5 MG in SODIUM CHLORIDE 0.9% 50 ML IV PRN (15:24)
--- NOTE | 2023-09-09 15:58 | Hospitalist Progress Note ---
Date of Service September 09, 2023 Assessment & Plan (1) Bacteremia due to Gram-positive bacteria: (2) Acute UTI: (3) Hypokalemia: (4) Hypomagnesemia: (5) Ureteral stent present: (6) Type 2 diabetes mellitus: (7) Dry gangrene: (8) Dyslipidemia: (9) HTN (hypertension): (10) Anemia: (11) Atrial fibrillation with rapid ventricular response: Plan 73 yo F with a complicated PMHx significant for extremity gangrene [s/p leech therapy] developed during last admission (07/26/23-08/21) in the setting of septic shock due to urinary source, poor IV access in setting of continuously progressing/demarcating extremity gangrene, HTN, HLD, T2DM, HCV status posttreatment, anxiety/mood disorder admitted with bacteremia. She is being managed for the following: Significant imaging status admission: Admitting CTAP 08/25/2023: Tiny focus of nonocclusive thrombus abutting the catheter within the right IJ vein. Stable 6 mm nodule within the right breast. F/U w/ OP USG. 2.2 cm enhancing lesion within the left adductor muscle, may represent hemangioma. Follow-up nonemergent dedicated MRI of the left thigh is recommended for further evaluation. Cholelithiasis Findings suggestive of persistent right-sided pyelonephritis. 1.6 cm hypodense focus within the right kidney which is new from 07/25/2023 CTAP - concern for small renal abscess or renal infarct. 1 week CTAP was recommended to ensure resolution. Right ureteral stent in good position. 4 mm stone within the proximal to mid right ureteral adjacent to the stent. 09/01/2023 CTAP: Findings suggestive of persistent right-sided pyelonephritis, pyelitis and ureteritis. Unchanged 1.6 cm hypodense focus within the right kidney possibly a small renal abscess. 1 to 2-week follow-up renal ultrasound recommended. 09/09/2023 renal USG: No hydronephrosis, right-sided ureteral stent redemonstrated. The previously questioned small right renal abscess is not visualized. Bacteremia with Alph strep not S. pne/enteroco Metabolic encephalopathy: Likely secondary to above Complicated UTI: Florina albicans/dubliniensis Patient presented to the ED 08/24 with concern for increasing baseline confusion, was afebrile/WBC WNL/BP WNL and not septic at presentation. Patient was discharged previously with right IJ catheter due to poor IV access. Removed on this admission. Catheter tip was sent for culture. 08/24 blood culture positive for alpha Streptococcus not Streptococcus pneumonia/Enterococcus 08/24 and 08/25 urine culture positive for Florina albicans 08/26 IJ catheter tip culture negative for growth. Echo ordered, noting unchanged mitral valve thickening from echo done during previous hospitalization on 07/26/23. Low suggestion of endocarditis at this time. 09/02/2023 -Per IR, abscess too small for drainage. Recommended conservative management with help of ID. ID evaluated 09/02/23: Continue Rocephin 2 g daily until 09/08/2023 [to complete treatment for bacteremia], then changed to Rocephin 1 g IV daily [to continue treatment for renal abscess] for total of 3 weeks. EOT 09/22/2023. Due to persistent right pyelonephritis/abscess on repeat CT scan, ID recommending fluconazole 400 mg p.o./IV daily until 09/22/[address] scan in 2 weeks to follow-up on the status of right renal abscess. Right ureteral stent in place from 07/26 ---->> on 09/05/2023:: Status post right ureteroscopy, stone removal and stent exchange. ---> The tethered stent was removed at bedside 08/11/202309/08 US renal with no visualization of right renal abscess. 09/04 operative c ulture with Florina and Enterococcus VRE. Reached out to ID 09/09/2023 ---> given clear yellow urine in catheter, afebrile, normal WBC and asymptomatic patient VRE is likely colonization. Given no visualization of renal abscess on repeat scan, ID recommended stopping Rocephin that was supposed to be used for extended duration for concern of renal abscess. See above for prior recs. D/w Uro - made them aware of atb Rx plan per ID recs, plan for voiding trial prior to DC. Patient will need follow-up with urology upon discharge Patient will need follow-up with infectious disease on discharge. D/w CM, pt now have final plan decided, is ok for dc. likely to happen krista. Poor vascular access Extremity gangrene Patient was previously discharged with right IJ catheter, taken out on readmission. Catheter tip culture negative for growth. Patient has right-sided ultrasound-guided IV line placed 09/05/2023 at this time. Nonocclusive thrombus in the right IJ: Right IJ catheter has been discontinued. Patient already on anticoagulation for A-fib. Continue warfarin. Extremity gangrene s/p leech therapy: Pt with progressing/demarcating extremity gangrene. Orthopedics evaluated, medical management/Occupational Therapy/pain control/no further orthopedic intervention at this time. Plan to allow the areas to demarcate to help with future amputation. Follow-up with orthopedics on discharge. Atrial fibrillation with RVR: Noted during recent admission. Continue with metoprolol, diltiazem, digoxin. Continue with warfarin. Monitor PT/INR. Discussed with urology, okay to resume warfarin from their point of view. Other chronic medical conditions: Continue with/resume home meds as and when able. T2DM: A1c of 7.1 in July 2023. Hold metformin. Sliding scale insulin. Dyslipidemia: Continue home statin HTN: Chronic, stable. Continue outpatient regimen. Anemia: Ongoing issue from recent admission but is stable to improving. Mood disorder: Continue home Effexor GERD: Continue PPI DVT prophylaxis: Therapeutic INR. On warfarin. Dispo: PT/OT, after 09/04 culture and sensitivity results out. CODE STATUS: Full code Pt's dtr susan updated in detail over the phone 09/06. Answered all her questions. Asked her if she knows she can read my progress note on the patient, she stated she is aware she can access them. I asked her if she has any questions after reading my notes, she is free to request call back and i can explain any queries she has. Admission and Anticipated Discharge Date Admission Date: August 25, 2023 Subjective Patient was seen and examined at bedside. Patient was lying in bed, on room air, resting comfortably, not in any acute distress. Patient reports eating okay and moving bowels okay, denies any pain or discomfort. Patient denies any fever/chills/headache/dizziness/chest pain. Per RN, no new acute events overnight. Physical Exam Physical Exam: General: Alert, oriented. 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 No murmurs appreciated Resp: Breath sounds clear bilaterally, no increased effort of breathing. Abdomen: Soft, nontender Extremities: gangrene noted on hands and feet bilaterally Results & Data Results & Data Vital Signs (Past 12 Hours) Vital Signs Temp Pulse Pulse Resp BP BP Pulse Ox 09/09/23 11:18 36.8 C 62 16 132/64 94 09/09/23 07:52 36.6 C 64 16 126/64 94 O2 Del Method 09/09/23 11:18 Room Air 09/09/23 07:52 Room Air (6) Type 2 diabetes mellitus Diabetes mellitus senior care insulin use: without senior care use Diabetes mellitus complication status: with other specified complication Qualified Code(s): E11.69 - Type 2 diabetes mellitus with other specified complication (9) HTN (hypertension) Hypertension type: primary hypertension Qualified Code(s): I10 - Essential (primary) hypertension (10) Anemia Anemia type: unspecified type Qualified Code(s): D64.9 - Anemia, unspecified
[2023-09-10 08:50] LABS: Hematocrit (blood only) 27.5 % (37.0-47.0); Hemoglobin 8.6 g/dl (12.0-16.0); Mean Corpuscular Hemoglobin 27.5 pg (25.0-34.0); Mean Corpuscular Hgb Conc 31.3 g/dL (32.0-36.0); Mean Corpuscular Volume 87.9 fL (80.0-100.0); Mean Platelet Volume 9.1 fL (9.4-12.4); Platelet Count 270 K/uL (130-400); RDW Coefficient of Variation 15.6 % (11.5-14.5); RDW Standard Deviation 49.8 fL (36.4-46.3); Red Blood Count 3.13 M/uL (4.20-5.40); White Blood Count 4.39 K/ul (4.8-10.8)
[2023-09-10 09:12] LABS: BUN Creatinine Ratio 27.6 (10-20); Calcium 8.8 mg/dl (8.6-10.3); Est GFR (Non-African American) 91.4 ml/min; Magnesium 1.8 mg/dl (1.7-2.4); Phosphorus 3.1 mg/dl (2.5-4.9); Potassium 3.9 mmol/L (3.5-5.1)
[2023-09-10 09:13] LABS: INR 2.5 (0.9-1.1); Prothrombin Time 26.3 Seconds (9.0-12.0)
--- NOTE | 2023-09-10 13:15 | Orthopedic Progress Note ---
Date of Service September 10, 2023 Assessment & Plan (1) Dry gangrene: Plan: She does show some signs of demarcation. At this point I would allow for more collateral circulation to know in the grow hand. She may follow-up with me as an outpatient in approximately 2 weeks. Admission and Anticipated Discharge Date Admission Date: August 25, 2023 Subjective Examined at bedside. No new complaints with the hand Physical Exam Musculoskeletal: bilateral hands show significant gangrene. Fingers are nonviable. There is variable demarcate gangrene in the hand. Results & Data Vital Signs (Past 12 Hours) Vital Signs Temp Pulse Resp BP BP Pulse Ox O2 Del Method 09/10/23 07:39 36.7 C 67 16 117/66 91 Room Air 09/10/23 04:00 36.7 C 66 16 120/65 98 Room Air
--- NOTE | 2023-09-10 13:15 | Discharge Summary ---
Discharge Summary Date of Service September 10, 2023 Notes For Next Care Provider Patient diagnosed with bacteremia with alpha strep. She was diagnosed with complicated UTI with culture growing Florina albicans/dubliniensis. During hospitalization patient did have a right IJ catheter that was removed and tip was negative for infection. Echocardiogram was also ordered which was negative for endocarditis. There was also concern with lower renal abscess in which patient received IV Ro cephin. Repeat imaging showed resolution of abscess. She had a voiding trial prior to discharge on 09/10/2023. Recommend monitoring bladder scan every 4 hours and PVRs. Medication Changes From Visit Fluconazole 400 mg once daily for additional 13 days Daily probiotic for additional 14 days Magnesium oxide 400 mg once daily Hold lisinopril due to blood pressure being on the lower side. Monitor blood pressure closely and if elevates would recommend resuming. Fluconazole dose next due, today on 09/10/2023 at 1800. Warfarin 3 mg daily at 1600 will be due on 09/10/2023. Continue all medications as prescribed. Admission HPI Per Admitting Provider This is a 73 y/o female with a complicated medical history including recent admission outlined below, DM2, HTN, prior HCV s/p treatment, and mood disorder presents from [facility] with positive blood culture and possible line infection. Pt was seen in the ED yesterday for report of increased confusion, episode of emesis. UA consistent with possible UTI so pt given a dose of Rocephin and discharged on cefdinir. Blood cultures were drawn and pending at the time of discharge back to [facility]. Today, one of four blood cultures came back positive for GPC in chains, blood biofire + for Strep spp. Pt still has an IJ in place from last admission as there were significant difficulties with obtaining peripheral access, including a failed attempt at PICC placement, so there was concern for a line infection. ED called [facility] to recommend reevaluation and possible admission. Upon review of [facility] records, it appears Harris was discontinued on 08/23 for unclear reasons, replaced in the ED yesterday. Currently, pt reports she is feeling okay, no specific complaints. Pt with complicated admission to [facility] from 07/25/23-08/21/23. Presented to the ED on 07/25/23 with confusion and right flank pain. Found to have severe sepsis with obstructive uropathy and complicated UTI. Initial blood and urine cultures grew Klebsiella. Pt underwent cystoscopy with placement of right ureteral stent early on 07/26. Pt developed septic shock and was transferred to the ICU and started on pressors, treated with cefepime then ceftriaxone for 14 days, then transition to ciprofloxacin and completed course on 08/20. Developed acrocyanosis and nasal tip cyanosis overnight 07/26-07/27, dropping platelet counts --> concern for DIC. Off pressors and transferred out of ICU 07/27. On 07/28 became progressively obtunded, transferred back to ICU and intubated that evening. Antibiotic coverage broadened due to concern for meningitis/encephalitis. MRI done and showed small right occipital lobe lacunar infarct. On 07/31, pt went into new-onset atrial fibrillation with RVR - started on beta-armando and digoxin. Extubated on 08/01, heparin gtt restarted. Heparin gtt changed to Lovenox. Developed acute on chronic diastolic CHF with pulmonary edema - diuresed with furosemide 40 mg IV BID but this was subsequently discontinued. Developed new-onset anemia with probable UGIB - saw GI, transfused two units, PPI BID. Ortho consulted for possible debridement of necrosis from prior cyanosis. Reconsulted on 08/08 - recommended podiatry for LE who saw pt 08/10. Pt started on leech therapy 08/09- 08/13 per ortho and wound care recs. Upon completion of leech therapy, pt started on warfarin. Issues with vascular access during admission - had a right IJ line placed in the ICU, which was continued due to inability to place a PICC line due to poor vascular access. Pt started PT/OT. Accepted at [facility] and discharged there on 08/21. Principal Dx & Hospital Course #1 = Principal Diagnosis (1) Bacteremia due to Gram-positive bacteria: (2) Hypokalemia: (3) Hypomagnesemia: (4) Ureteral stent present: (5) Type 2 diabetes mellitus: (6) Dyslipidemia: (7) HTN (hypertension): (8) Atrial fibrillation with rapid ventricular response: Plan 73 yo F with a complicated PMHx significant for extremity gangrene [s/p leech therapy] developed during last admission (07/26/23-08/21) in the setting of septic shock due to urinary source, poor IV access in setting of continuously progressing/demarcating extremity gangrene, HTN, HLD, T2DM, HCV status posttreatment, anxiety/mood disorder admitted with bacteremia. Please refer to admission history and physical regarding detailed prior hospitalization. She is being managed for the following: Significant imaging studies this admission: Admitting CTAP 08/25/2023: Tiny focus of nonocclusive thrombus abutting the catheter within the right IJ vein. Stable 6 mm nodule within the right breast. F/U w/ OP USG. 2.2 cm enhancing lesion within the left adductor muscle, may represent hemangioma. Follow-up nonemergent dedicated MRI of the left thigh is recommended for further evaluation. Cholelithiasis Findings suggestive of persistent right-sided pyelonephritis. 1.6 cm hypodense focus within the right kidney which is new from 07/25/2023 CTAP - concern for small renal abscess or renal infarct. 1 week CTAP was recommended to ensure resolution. Right ureteral stent in good position. 4 mm stone within the proximal to mid right ureteral adjacent to the stent. 09/01/2023 CTAP: Findings suggestive of persistent right-sided pyelonephritis, pyelitis and ureteritis. Unchanged 1.6 cm hypodense focus within the right kidney possibly a small renal abscess. 1 to 2-week follow-up renal ultrasound recommended. 09/09/2023 renal USG: No hydronephrosis, right-sided ureteral stent redemonstrated. The previously questioned small right renal abscess is not visualized. HOSPITAL COURSE Bacteremia with Alph strep not S. pne/enteroco Metabolic encephalopathy: Likely secondary to above Complicated UTI: Florina albicans/dubliniensis Patient presented to the ED 08/24 with concern for increasing baseline confusion, was afebrile/WBC WNL/BP WNL and not septic at presentation. Patient was discharged previously with right IJ catheter due to poor IV access. Removed on this admission. Catheter tip was sent for culture. 08/24 blood culture positive for alpha Streptococcus not Streptococcus pneumonia/Enterococcus 08/24 and 08/25 urine culture positive for Florina albicans 08/26 IJ catheter tip culture negative for growth. Echo ordered, noting unchanged mitral valve thickening from echo done during pre vious hospitalization on 07/26/23. Low suggestion of endocarditis at this time. 09/02/2023 -Per IR, abscess too small for drainage. Recommended conservative management with help of ID. ID evaluated 09/02/23: Continue Rocephin 2 g daily until 09/08/2023 [to complete treatment for bacteremia], then changed to Rocephin 1 g IV daily [to continue treatment for renal abscess] for total of 3 weeks. EOT 09/22/2023. Due to persistent right pyelonephritis/abscess on repeat CT scan, ID recommending fluconazole 400 mg p.o./IV daily until 09/22/[address] showed resolution of abscess. ID recommended discontinuing Rocephin since abscess has resolved and continue fluconazole until 09/21/22. Right ureteral stent in place from 07/26 ---->> on 09/05/2023:: Status post right ureteroscopy, stone removal and stent exchange. ---> The tethered stent was removed at bedside 08/11/202309/08 US renal with no visualization of right renal abscess. 09/04 operative culture with Florina and Enterococcus VRE. Reached out to ID 09/09/2023 ---> given clear yellow urine in catheter, afebrile, normal WBC and asymptomatic patient VRE is likely colonization. Given no visualization of renal abscess on repeat scan, ID recommended stopping Rocephin that was supposed to be used for extended duration for concern of renal abscess. See above for prior recs. TRIAL OF VOID done prior to DC. Harris removed 09/09. Patient will need follow-up with urology upon discharge Patient will need follow-up with infectious disease on discharge. Nonocclusive thrombus in the right IJ: Right IJ catheter has been discontinued. Patient already on anticoagulation for A-fib. Continue warfarin. Poor vascular access Extremity gangrene Extremity gangrene s/p leech therapy Patient was previously discharged with right IJ catheter, taken out on readmission. Catheter tip culture negative for growth. Patient has right-sided ultrasound-guided IV line placed 09/05/2023 at this time. Pt with progressing/demarcating extremity gangrene. Orthopedics evaluated, medical management/Occupational Therapy/pain control/no further orthopedic intervention at this time. Plan to allow the areas to demarcate to help with future amputation. Follow-up with orthopedics on discharge. Atrial fibrillation with RVR: Noted during recent admission. Continue with metoprolol, diltiazem, digoxin. Continue with warfarin. Monitor PT/INR. Other chronic medical conditions: Continue with/resume home meds as and when able. T2DM: A1c of 7.1 in July 2023. Hold metformin. Sliding scale insulin. Dyslipidemia: Continue home statin HTN: Chronic, stable. Continue outpatient regimen. Anemia: Ongoing issue from recent admission but is stable to improving. Mood disorder: Continue home Effexor GERD: Continue PPI DVT prophylaxis: Therapeutic INR. On warfarin. Dispo: PT/OT, after 09/04 culture and sensitivity results out. CODE STATUS: Full code Discharge Exam Gen: Chronically ill appearing F, NAD, A&O x3 HEENT: Normocephalic, atraumatic, conjunctivae moist, sclerae anicteric, mucous membranes moist. Lung: Clear to Auscultation bilaterally, no wheezes/rales/rhonchi Heart: Regular rate, regular rhythm, no murmurs, rubs, or gallops Abdomen: Soft, NT, ND +BS x 4 Extremities: gangrene noted to hands and feet b/l, dry, well demarcated, difficulty with dress marker Skin: Warm, no rash, negative turgor. Updated Medication List Medication Instructions Recorded Confirmed Type lisinopril 10 mg tablet 20 mg PO DAILY 08/24/23 08/25/23 History povidone-iodine 10 % topical 1 applic topical TID 08/24/23 08/25/23 History solution (Betadine) L.acidop,casei,lactis,rham-B.lact,hector 1 cap PO DAILY #14 caps 09/10/23 Rx 625 mg (10 billion cell) capsule (Advanced Probiotic) acetaminophen 325 mg tablet 650 mg (2 x 325 mg) PO Q6H PRN 09/10/23 Rx (Tylenol) FEVER >100/PAIN #30 tabs alendronate 70 mg tablet (Fosamax) 70 mg PO WK #4 tabs 09/10/23 Rx atorvastatin 40 mg tablet 40 mg PO HS #30 tabs 09/10/23 Rx calcium carbonate 500 mg-vitamin 1 tab PO DAILY #30 tabs 09/10/23 Rx D3 5 mcg (200 unit) tablet (Calcium 500 + D) cyanocobalamin (vitamin B-12) 1,000 mcg PO QAM #30 tabs 09/10/23 Rx 1,000 mcg tablet digoxin 125 mcg (0.125 mg) tablet 0.125 mg PO HS #30 tabs 09/10/23 Rx (Digitek) diltiazem HCl 180 mg 180 mg PO QAM #30 caps 09/10/23 Rx capsule,extended release 24 hr fluconazole 100 mg tablet 400 mg (4 x 100 mg) PO DAILY 13 09/10/23 Rx days #52 tabs food supplemt, lactose-reduced 1 ea PO TIDM #1,184 mL 09/10/23 Rx magnesium oxide 400 mg (241.3 mg 400 mg PO QAM #60 tabs 09/10/23 Rx magnesium) tablet melatonin 3 mg tablet 3 mg PO HS PRN sleep #30 tabs 09/10/23 Rx metformin 1,000 mg tablet 1,000 mg PO BIDWMEAL #60 tabs 09/10/23 Rx metoprolol succinate 25 mg 25 mg PO QAM #30 tabs 09/10/23 Rx tablet,extended release 24 hr pantoprazole 40 mg tablet,delayed 40 mg PO BIDM #30 tabs 09/10/23 Rx release tamsulosin 0.4 mg capsule 0.4 mg PO HS #30 caps 09/10/23 Rx venlafaxine 150 mg 150 mg PO DAILY #30 caps 09/10/23 Rx capsule,extended release 24 hr warfarin 3 mg tablet 3 mg PO HS #30 tabs 09/10/23 Rx Hospital Stay Data Consultations 08/25/23 14:23 ED Decision to Admit Stat 08/25/23 17:28 Consult Infectious Diseases Routine 08/25/23 17:35 Consult Urology Routine 08/26/23 09:11 Consult Orthopedic Surgery Routine Procedures Performed Operation Date: 09/05/23 10:55 Actual Procedures p Cystoscopy, Right Ureteroscopy, Basket Stone Extraction, and Right Ureteral Stent Exchange - Stu Mahajan MD Diagnostic Imagining Performed Chest X-Ray 08/25/23 13:39 XR chest 1V portable HISTORY: Sepsis COMPARISON: Chest 08/24/2023. FINDINGS: The heart is normal in size. A few bibasilar linear densities favor subsegmental atelectasis are scarring. This remains unchanged. No new focal lung consolidations to suggest a pneumonia. No evidence for pulmonary edema. No acute fractures. A right jugular central venous catheter terminates at the proximal SVC. Small bilateral pleural effusions persist. IMPRESSION: Small bilateral pleural effusions and bibasilar linear densities again noted. This favors subsegmental atelectasis. ACT 112: Negative or not required by law. Electronically signed by: Moshe Lofton M.D. 08/25/2023 2:04 PM Abdomen/Pelvis CT 08/25/23 14:[address] WITH CONTRAST, ABDOMEN AND PELVIS CT WITH INTRAVENOUS CONTRAST CT DOSE: 1948.89 mGy.cm HISTORY: bacteremia, RIJ, h/o ureteral stent TECHNIQUE: Multiaxial CT images of the chest, abdomen, and pelvis were performed following the intravenous administration of contrast. A dose lowering technique was utilized adhering to the principles of ALARA. COMPARISON: Chest CTA 07/25/2023. Abdomen and pelvis CT 07/29/2023. FINDINGS: Chest CT:. A right jugular central venous catheter which terminates at the SVC. Tiny focus of nonocclusive thrombus again noted abutting the catheter within the right internal jugular vein on image 36. The right brachiocephalic vein and SVC are patent. Calcified plaque within the normal caliber thoracic aorta. Moderate coronary calcifications again noted. The heart is mildly enlarged. No pleural or pericardial effusions. The central pulmonary arteries are patent. No mediastinal or hilar lymphadenopathy. Stable 6 mm nodule/cyst within the right breast. Normal esophagus. No acute fractures within the chest. No pneumothorax. The central airways are patent. Stable 2 mm nodule within the left lung apex on image 55. No evidence for pulmonary edema. A few bibasilar linear densities favor subsegmental atelectasis. A pneumonia could also have a similar appearance but is considered less likely. Abdomen/pelvis CT: No pneumoperitoneum. No pneumatosis. No acute fractures. The main portal vein is patent. Calcified plaque within the normal caliber abdominal aorta. There is mild narrowing within the proximal common iliac arteries due to the calcified plaque. There is a 2.2 cm enhancing focus within the left adductor muscle on image 404. This is only partially imaged on this study. No hepatic masses. A 5 mm hypodense lesion within the anterior spleen is too small to characterize but likely benign. Stable nodular thickening of the adrenal glands. The pancreas is unremarkable. There are 2 large stones again noted within the gallbladder neck with the largest measuring 14 mm. No significant gallbladder wall thickening. Normal caliber common bile duct. The main portal vein is paten t. No retroperitoneal lymphadenopathy. A few bilateral renal hypodense lesions remain stable. The majority these favor cysts. 16 mm hypodense lesion within the right kidney on image 159. This could represent an area of pyelonephritic scarring. A small renal abscess or renal infarct are also considered in the differential diagnosis. Mild heterogeneous enhancement within the right kidney has improved compared to prior studies. This favors a persistent right-sided pyelonephritis. Right perinephric fat stranding is also improved. Left-sided nephrolithiasis. A right ureteral stent appears in good position. There is a 4 mm stone again seen within the proximal ureter adjacent to the stent on image 227. This has migrated a few centimeters distally compared to the prior study. Urothelial thickening within the right renal collecting system and right ureter is again noted. Mild right hydronephrosis has progressed in the interval. Bladder is decompressed by Harris catheter which appears in good position. Gas within the bladder lumen is likely due to the catheterization. Mild bladder wall thickening persists. Prior hysterectomy. Colonic diverticulosis. No evidence for acute diverticulitis. Fluid-filled large and small bowel. This may represent a gastroenteritis/diarrheal illness. Small periumbilical fat-containing hernia is again noted. No bowel wall thickening or obstruction. Normal appendix. IMPRESSION: 1. Tiny focus of nonocclusive thrombus again noted abutting the catheter within the right internal jugular vein. 2. A few bibasilar linear densities favor subsegmental atelectasis. A pneumonia could also have a similar appearance but is considered less likely. 3. Stable 6 mm nodule/cyst within the right breast. 4. There is a 2.2 cm enhancing lesion within the left adductor muscle. This is indeterminate but may represent a hemangioma. Follow-up nonemergent dedicated MRI of the left thigh is recommended for further evaluation. 5. Cholelithiasis. 6. Heterogeneous enhancement within the right kidney and right perinephric enhancement has improved. This suggests a persistent right-sided pyelonephritis. 7. A 1.6 cm hypodense focus within the right kidney which is new from the 07/25/[address] Therefore, this could represent an area of scarring from the pyelonephritis. A small renal abscess or renal infarct could also have a similar appearance. Therefore, one week abdomen CT follow-up recommended to ensure resolution. 8. Urothelial thickening within the right renal collecting system and right ureter persists. 9. A right ureteral stent is in good position. 10. A 4 mm stone within the proximal to mid right ureter is again seen adjacent to the stent. This has migrated a few centimeters distal compared to the prior study. 11. Fluid-filled large and small bowel. This could be due to a gastroenteritis/diarrheal illness. 12. No bowel wall thickening or obstruction. 13. Additional findings as described above. ACT 112: Negative or not required by law. Electronically signed by: Moshe Lofton M.D. 08/25/2023 5:[address] 08/25/23 14:[address] WITH CONTRAST, ABDOMEN AND PELVIS CT WITH INTRAVENOUS CONTRAST CT DOSE: 1948.89 mGy.cm HISTORY: bacteremia, RIJ, h/o ureteral stent TECHNIQUE: Multiaxial CT images of the chest, abdomen, and pelvis were performed following the intravenous administration of contrast. A dose lowering technique was utilized adhering to the principles of ALARA. COMPARISON: Chest CTA 07/25/2023. Abdomen and pelvis CT 07/29/2023. FINDINGS: Chest CT:. A right jugular central venous catheter which terminates at the SVC. Tiny focus of nonocclusive thrombus again noted abutting the catheter within the right internal jugular vein on image 36. The right brachiocephalic vein and SVC are patent. Calcified plaque within the normal caliber thoracic aorta. Moderate coronary calcifications again noted. The heart is mildly enlarged. No pleural or pericardial effusions. The central pulmonary arteries are patent. No mediastinal or hilar lymphadenopathy. Stable 6 mm nodule/cyst within the right breast. Normal esophagus. No acute fractures within the chest. No pneumothorax. The central airways are patent. Stable 2 mm nodule within the left lung apex on image 55. No evidence for pulmonary edema. A few bibasilar linear densities favor subsegmental atelectasis. A pneumonia could also have a similar appearance but is considered less likely. Abdomen/pelvis CT: No pneumoperitoneum. No pneumatosis. No acute fractures. The main portal vein is patent. Calcified plaque within the normal caliber abdominal aorta. There is mild narrowing within the proximal common iliac arteries due to the calcified plaque. There is a 2.2 cm enhancing focus within the left adductor muscle on image 404. This is only partially imaged on this study. No hepatic masses. A 5 mm hypodense lesion within the anterior spleen is too small to characterize but likely benign. Stable nodular thickening of the adrenal glands. The pancreas is unremarkable. There are 2 large stones again noted within the gallbladder neck with the largest measuring 14 mm. No significant gallbladder wall thickening. Normal caliber common bile duct. The main portal vein is patent. No retroperitoneal lymphadenopathy. A few bilateral renal hypodense lesions remain stable. The majority these favor cysts. 16 mm hypodense lesion within the right kidney on image 159. This could represent an area of pyelonephritic scarring. A small renal abscess or renal infarct are also considered in the differential diagnosis. Mild heterogeneous enhancement within the right kidney has improved compared to prior studies. This favors a persistent right-sided pyelonephritis. Right perinephric fat stranding is also improved. Left-sided nephrolithiasis. A right ureteral stent appears in good position. There is a 4 mm stone again seen within the proximal ureter adjacent to the stent on image 227. This has migrated a few centimeters distally compared to the prior study. Urothelial thickening within the right renal collecting system and right ureter is again noted. Mild right hydronephrosis has progressed in the interval. Bladder is decompressed by Harris catheter which appears in good position. Gas within the bladder lumen is likely due to the catheterization. Mild bladder wall thickening persists. Prior hysterectomy. Colonic diverticulosis. No evidence for acute diverticulitis. Fluid-filled large and small bowel. This may represent a gastroenteritis/diarrheal illness. Small periumbilical fat-containing hernia is again noted. No bowel wall thickening or obstruction. Normal appendix. IMPRESSION: 1. Tiny focus of nonocclusive thrombus again noted abutting the catheter within the right internal jugular vein. 2. A few bibasilar linear densities favor subsegmental atelectasis. A pneumonia could also have a similar appearance but is considered less likely. 3. Stable 6 mm nodule/cyst within the right breast. 4. There is a 2.2 cm enhancing lesion within the left adductor muscle. This is indeterminate but may represent a hemangioma. Follow-up nonemergent dedicated MRI of the left thigh is recommended for further evaluation. 5. Cholelithiasis. 6. Heterogeneous enhancement within the right kidney and right perinephric enhancement has improved. This suggests a persistent right-sided pyelonephritis. 7. A 1.6 cm hypodense focus within the right kidney which is new from the 07/25/[address] Therefore, this could represent an area of scarring from the pyelonephritis. A small renal abscess or renal infarct could also have a similar appearance. Therefore, one week abdomen CT follow-up recommended to ensure resolution. 8. Urothelial thickening within the right renal collecting system and right ureter persists. 9. A right ureteral stent is in good position. 10. A 4 mm stone within the proximal to mid right ureter is again seen adjacent to the stent. This has migrated a few centimeters distal compared to the prior study. 11. Fluid-filled large and small bowel. This could be due to a gastroenteritis/diarrheal illness. 12. No bowel wall thickening or obstruction. 13. Additional findings as described above. ACT 112: Negative or not required by law. Electronically signed by: Moshe Lofton M.D. 08/25/2023 5:[address] 08/25/23 14:21 CT soft tissue neck w con CT DOSE: CLINICAL HISTORY: baceteremia, RIJ, h/o ureteral stent TECHNIQUE: Multiaxial CT images of the neck were performed following the intravenous administration of contrast. Sagittal and coronal reformations were performed at the workstation by the radiologist. A dose lowering technique was utilized adhering to the principles of ALARA. COMPARISON STUDY: Neck CTA 07/25/2023. FINDINGS: The visualized brain parenchyma and orbits are unremarkable. The pterygopalatine fossa and paratracheal fat spaces are maintained. The major mucosal airways services are intact. Normal thyroid gland. No lymphadenopathy or abscess identified within the neck. Prevertebral soft tissues and the epiglottis are normal in thickness. The parotid and submandibular glands are symmetric. No pneumothorax. No acute fractures identified. The paranasal sinuses and mastoid air cells are clear. There is right jugular catheter noted. There is a tiny focus of thrombus adjacent to the right jugular catheter within the right internal jugular vein on image 139. The remaining right internal jugular vein is patent.. Mild right and moderate left proximal internal carotid artery narrowing due to the calcified plaque. This remains unchanged. The left internal jugular vein is also patent. IMPRESSION: 1. A right jugular central venous catheter appears in good position. There is a tiny focus of nonocclusive thrombus within the right internal jugular vein abutting the catheter. 2. No abscess or lymphadenopathy within the neck. ACT 112: Negative or not required by law. Electronically signed by: Msohe Lofton M.D. 08/25/2023 5:31 PM Abdomen/Pelvis CT 03/03/24 09:[address] WITH IV CONTRAST CT DOSE: 927.51 mGy.cm HISTORY: Acute right-sided flank pain follow up abnormal CT TECHNIQUE: Multiaxial CT images of the abdomen and pelvis were performed following the IV administration of 89 cc of Optiray, A dose lowering technique was utilized adhering to the principles of ALARA. COMPARISON STUDY: CT 08/25/2023 FINDINGS: Linear bibasilar consolidation favors atelectasis. There is no free air. The heart is mildly enlarged. Subcentimeter hypodensity of the anterior spleen is stable and likely benign. Unremarkable pancreas and adrenal glands. Cholelithiasis with borderline gallbladder wall thickening. Unremarkable liver. Patent portal vein. 8 mm calcification of the left kidney on image 106. No hydronephrosis. There are a few cysts noted within the bilateral kidneys. Stable 1.6 cm hypodense focus of the right kidney in image 123. Heterogeneous enhancement of the right kidney with persistent right-sided urothelial thickening and enhancement. Mild right- sided pelvocaliectasis with ureteral stent in place. There is distal migration of the 4 mm right ureteral calculus now present in the pelvis on image 271. A focus of air noted within the right renal collecting system. Decompressed urinary bladder with wall thickening and Harris catheter in place. Atherosclerosis of the aorta without aneurysm. No lymphadenopathy. Hysterectomy. No bowel obstruction or bowel wall thickening. Mild colonic fecal retention. Noninflamed appendix. No acute fracture. IMPRESSION: 1. Persistent findings suggestive of right-sided pyelonephritis, pyelitis and ureteritis . 2. Satisfactory positioning of the right ureteral stent with further distal migration of the 4 mm right ureteral calculus, now within the pelvis. 3. Unchanged 1.6 cm hypodense focus within the right kidney, possibly a small renal abscess. One to two-week follow-up renal ultrasound is recommended. 4. Cholelithiasis. 5. Additional findings as above. ACT 112: Negative or not required by law. The above report was generated using voice recognition software. It may contain grammatical, syntax or spelling errors. Electronically signed by: Morteza Boogie M.D. 09/01/2023 11:13 AM Abdomen Fluoroscopy 09/05/23 10:55 INTRAOPERATIVE RADIOGRAPH CLINICAL HISTORY: Right ureteral stent placement. Fluoro time: 3 seconds Ka,r: 0.84 mGy FINDINGS: A single spot fluoroscopic view of the right abdomen is correlated with abdominal CT dated 09/01/2023. The image shows the proximal end of a right ureteral stent projecting over the renal pelvis. No calcifications are clearly seen along the imaged portions of the stent. IMPRESSION: Intraoperative image from a right ureteral stent placement as above. Electronically signed by: Pravin Nguyen M.D. 09/05/2023 12:36 PM Renal Ultrasound 09/09/23 00:00 RENAL ULTRASOUND HISTORY: Follow-up study in a patient with reported right-sided renal abscess f/u right renal abscess COMPARISON: CT 09/01/2023 FINDINGS: Right kidney: 10.4 x 4.4 x 5.2 cm. Cyst of the inferior pole measures 9 mm. Previously noted 1.600 m possible right renal abscess is not definitively seen. Right-sided ureteral stent again noted. No hydronephrosis. Normal corticomedullary differentiation and cortical thickness. Left kidney: 10.1 x 6.0 x 5.4 cm. 1.6 cm cyst. No hydronephrosis. Normal corticomedullary differentiation and cortical thickness. Bladder: Decompressed with Harris catheter. IMPRESSION: 1. No hydronephrosis. 2. Right-sided ureteral stent redemonstrated. 3. The previously questioned small right renal abscess is not visualized by ultrasound. ACT 112: Negative or not required by law. Electronically signed by: Morteza Boogie M.D. 09/09/2023 9:37 AM Pending Results Patient Have Any Pending Studies at Discharge: No Discharge Instructions Given to Patient (Per Discharging Provider) MEDICATION CHANGES: Fluconazole 400 mg once daily for additional 13 days Daily probiotic for additional 14 days Magnesium oxide 400 mg once daily Hold lisinopril due to blood pressure being on the lower side. Monitor blood pressure closely and if elevates would recommend resuming. Fluconazole dose next due, today on 09/10/2023 at 1800. Warfarin 3 mg daily at 1600 will be due on 09/10/2023. Continue all medications as prescribed. RECOMMENDATIONS FOR FOLLOW-UP: Please follow up with your Primary Care provider upon discharge from rehab. Please follow-up with urology upon discharge as scheduled. Please follow-up with infectious disease at [facility] upon discharge. [facility] to determine further plan regarding amputation. It is recommended that you follow-up with Dr. Lay as outpatient. Recommend nonemergent dedicated MRI of left thigh at discharge. This is due to a 2.2 cm enhancing lesion noted in the left adductor muscle which may represent hemangioma. Recommend CBC, BMP and PT/INR upon discharge Her INR on day of discharge is 2.5. Continue warfarin 3 mg in the evening. Recommend follow-up LFTs upon completion of fluconazole. Right breast mammogram for 6 mm nodule. Coordinate with your pcp office to set up the test. Your harris catheter was removed prior to discharge. Encourage oral fluid intake. OTHER INSTRUCTIONS: Seek medical attention if you have: * temperature above 101 * chest pain or trouble breathing * abdominal pain, nausea, vomiting * diarrhea, dark stools or bloody stools * any unanswered questions or concerns Call 911 if symptoms are severe. Please take good care of yourself. It has been a pleasure taking care of you. Please take care of yourself. If you have any questions regarding your recent hospitalization please contact [facility] and request obed Joséist @ [phone]. Total Time Total Time Spent Total Time Spent (In Minutes): 45 minutes Supervising Physician Co-Signing Physician Notes Patient was seen and examined at bedside as a follow-up of bacteremia, metabolic encephalopathy, complicated UTI, concern for renal abscess. Repeat renal imaging revealed resolution of renal abscess, operative culture from 09/05/2023 revealed growth of VRE. Case was discussed with ID after we had this information, they recommended no antibiotic treatment for VRE as it is colonization, and stopping of ceftriaxone that was supposed to continue for renal abscess as renal abscess was resolved on repeat imaging. Patient did not have any lower abdominal pain or any pain or burning with passing urine after catheter was taken out, very clean light yellow urine before catheter was taken out, no febrile illness. On examination: Gangrenous tissue noted in hands and feet. Rest of the examination as above. I have seen and examined the patient and have discussed the case with the provider above. I agree with the assessment and plan as stated.
[2023-09-17 22:22] LABS: Component 2 DNR; Source RIGHT URETERAL STONE
== END 2023-09-10 14:36 | DRG 853 ==
LOC: ED 12:09 → 2S 14:14 → SUATTDRO 14:14 → 2S 16:51 → 3W 09-08 15:59

== ENCOUNTER 2023-12-04 11:31 | Inpatient (IN) ==
[2023-12-04] MEDS ORDERED: PANTOPRAZOLE BOLUS/DRIP IV STA (11:43)
--- NOTE | 2023-12-04 11:50 | Emergency Department Note ---
History of Present Illness General Chief complaint: GI Bleed Stated complaint: GI BLEED Time Seen by Provider: 12/04/23 11:35 History of Present Illness Provider complaint: GI bleed low hemoglobin 73-year-old female presents emergency department from alf for GI bleed and low hemoglobin. Patient reports no symptoms however report from the alf stated that the patient was having Hemoccult positive stools her hemoglobin on Saturday was 7.8 and today was 6.9. Patient has a history of severe sepsis secondary to UTI where she had to be on Levophed and had complications of gangrene requiring amputations. Home Medications Medication Instructions Recorded Confirmed Type acetaminophen 325 mg tablet 650 mg (2 x 325 mg) PO Q6H PRN 09/10/23 12/04/23 Rx (Tylenol) FEVER >100/PAIN #30 tabs atorvastatin 40 mg tablet 40 mg PO HS #30 tabs 09/10/23 12/04/23 Rx cyanocobalamin (vitamin B-12) 1,000 mcg PO QAM #30 tabs 09/10/23 12/04/23 Rx 1,000 mcg tablet digoxin 125 mcg (0.125 mg) tablet 0.125 mg PO HS #30 tabs 09/10/23 12/04/23 Rx (Digitek) diltiazem HCl 180 mg 180 mg PO QAM #30 caps 09/10/23 12/04/23 Rx capsule,extended release 24 hr magnesium oxide 400 mg (241.3 mg 400 mg PO QAM #60 tabs 09/10/23 12/04/23 Rx magnesium) tablet melatonin 3 mg tablet 3 mg PO HS PRN sleep #30 tabs 09/10/23 12/04/23 Rx metformin 1,000 mg tablet 1,000 mg PO BIDWMEAL #60 tabs 09/10/23 12/04/23 Rx tamsulosin 0.4 mg capsule 0.4 mg PO HS #30 caps 09/10/23 12/04/23 Rx Saccharomyces boulardii 250 mg 250 mg PO QAM 10/14/23 12/04/23 History capsule (Florastor) alendronate 70 mg tablet (Fosamax) 70 mg PO Q7D 10/14/23 12/04/23 History bisacodyl 10 mg rectal suppository 10 mg NH UD PRN Constipation 10/14/23 12/04/23 History (Dulcolax (bisacodyl)) calcium carbonate 500 mg-vitamin 1 tab PO QAM 10/14/23 12/04/23 History D3 5 mcg (200 unit) tablet (Calcium 500 + D) magnesium hydroxide 400 mg/5 mL 2,400 mg PO UD PRN Constipation 10/14/23 12/04/23 History oral suspension ondansetron HCl 4 mg tablet 4 mg PO Q8H PRN Nausea 10/14/23 12/04/23 History pantoprazole 40 mg tablet,delayed 40 mg PO BID 10/14/23 12/04/23 History release sodium phosphates 19 gram-7 118 ml NH UD PRN Constipation 10/14/23 12/04/23 History gram/118 mL enema (Fleet Enema) venlafaxine 150 mg 150 mg PO QAM 10/14/23 12/04/23 History capsule,extended release 24 hr loperamide 2 mg capsule 2 mg PO DIRECTED PRN .loose bm 12/04/23 12/04/23 History promethazine 25 mg/mL injection 25 mg IM Q6 PRN N/V 12/04/23 12/04/23 History solution rivaroxaban 20 mg tablet (Xarelto) 20 mg PO DAILY 12/04/23 12/04/23 History Allergies Allergy/AdvReac Type Severity Reaction Status Date / Time No Known Allergies Allergy Verified 12/04/23 15:14 Past Med/Surg History Problem List GI bleed (Acute) Melanotic stools Gangrene of hand Complicated urinary tract infection (Acute) Dry gangrene (Acute) Bacteremia due to Gram-positive bacteria Ureteral stent present (Acute) Gangrene Thrombocytopenia Thrombocytopathia Anemia Hypokalemia (Acute) Hypomagnesemia (Acute) Nephrolithiasis Dyslipidemia Type 2 diabetes mellitus NIDDM Ureterolithiasis (Acute) hx Bacteremia (Acute) hx Atrial fibrillation with rapid ventricular response currently on chronic AC w/coumadin HTN (hypertension) S/P wrist surgery left 5 yrs ago Medical History Carotid artery stenosis Moderate LEFT ICA stenosis, possible high risk, ulcerative plaque in this location. There is streak artifact from the calcium and patient motion limiting evaluation. History of upper gastrointestinal bleeding 07/2023 Non-occlusive thrombus right internal jugular vein Cognitive communication deficit in setting of encephalopathy Dysphagia, oral phase denies choking, denies specialized diet at this time Muscle weakness (generalized) Difficulty in walking, not elsewhere classified Urinary tract infection, site not specified Klebsiella pneumoniae [k. 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 ventilation. sepsis due to complicated UTI and bacteremia w/klebsiella pneumoniae, tx primarily w/IV cefepime. due to her severe sepsis and need for IV pressor, developed acrocyanosis/gangrene to all 4 extremities as well as distal nose. 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/gangrene" Complicated urinary tract infection Hydronephrosis due to obstruction of ureter hx Closed fracture of left distal radius and ulna hx History of COVID-19 07/2023, [facility], hospitalized 07/26/23-08/21/23 History of colon polyps Anxiety Surgical History S/P cystoscopy with ureteral stent placement 09/05/23>w/ureteroscopy and stone extraction, stent exchange; stent removed 09/09/23 History of colonoscopy History of hysterectomy History of tonsillectomy Family History Grandmother Family history of diabetes mellitus Family history of colon cancer Grandfather Family history of colon cancer Aunt Family history of colon cancer Uncle Family history of colon cancer Social History Smoking Status: Former smoker Tobacco Type: Cigarettes Second Hand Exposure: No; Do You Dip or Chew Tobacco: No; Hx Alcohol Use: No Preferred Language: Cambodian Communication Ability: Effective Lead Ingot Molder Required: No Beliefs That Will Affect Care: None Current Living Situation: Prison Current Living Situation Comment: [place] [facility] Feels Safe at Home: Yes Assistive Devices: None Physical Exam Vital Signs Vital Signs - 24 hr 12/04/23 11:43 12/04/23 11:43 12/04/23 11:43 Temperature 36.8 C Temperature Source Oral Pulse Rate 91 H 91 H Pulse Rate [Apical] 91 H Pulse Rhythm Regular Regular Pulse Rhythm [Apical] Regular Pulse Strength Normal Pulse Strength [Apical] Normal Respiratory Rate 17 17 17 Respiratory Effort / Characteristics Non-Labored Spontaneous Non-Labored Spontaneous Respiratory Depth Normal Normal Respiratory Pattern Regular Regular Blood Pressure 123/61 Blood Pressure [Right Arm] 123/61 Blood Pressure Mean 81 Blood Pressure Mean [Right Arm] 81 Blood Pressure Position Sitting Blood Pressure Position [Right Arm] Sitting Pulse Oximetry 96 96 96 Oxygen Delivery Method Room Air Room Air Room Air Sepsis Recent Fever Within 48 Hours No Sepsis New/Unexplained Change in Mental Status No Sepsis Action Taken by Nursing No Action Required 12/04/23 11:46 12/04/23 13:43 Temperature Temperature Source Pulse Rate 92 H Pulse Rate [Apical] 78 Pulse Rhythm Pulse Rhythm [Apical] Regular Pulse Strength Pulse Strength [Apical] Normal Respiratory Rate 16 Respiratory Effort / Characteristics Non-Labored Spontaneous Respiratory Depth Normal Respiratory Pattern Regular Blood Pressure Blood Pressure [Right Arm] 123/61 Blood Pressure Mean Blood Pressure Mean [Right Arm] 81 Blood Pressure Position Blood Pressure Position [Right Arm] Pulse Oximetry 97 Oxygen Delivery Method Room Air Sepsis Recent Fever Within 48 Hours Sepsis New/Unexplained Change in Mental Status Sepsis Action Taken by Nursing Physical Exam GENERAL: She is oriented to person, place, and time. She appears well-developed and well-nourished. She does not appear distressed. HENT: Exam performed. -Head: Normocephalic and atraumatic. -Right Ear: External ear normal. No mastoid erythema -Left Ear: External ear normal. No mastoid erythema -Mouth/Throat: The oropharynx is clear and moist. No trismus in the jaw. No dental abscesses or uvula swelling. No oropharyngeal exudate or tonsillar abscesses. EYES: Conjunctivae and EOM are normal.Right eye exhibits no discharge. Left eye exhibits no discharge. No scleral icterus. NECK: Normal range of motion. Neck supple. No JVD present. No tracheal deviation and normal range of motion present. CV: Normal rate, regular rhythm, normal heart sounds and intact distal pulses. There is no peripheral edema. Palpable radial pulses bue. PULM/CHEST: Effort normal and breath sounds normal. No respiratory distress. No stridor. She has no wheezes. She has no rales. -Chest Wall: She exhibits no tenderness. ABD: The abdomen is soft. Bowel sounds are normal. She has no distension. No mass is present. There is no tenderness. There is no rebound, no guarding, no Celis's sign and no tenderness at McBurney's point. Rovsig negative Rectal: Performed with female nursing nutrition partner Mackenzie at bedside. Hemoccult positive. MUSC/SKEL: Right hand amputated. Left hand amputated. Left hand black and necrotic. NEURO: Motor and sensation grossly intact. SKIN: Skin is warm and dry. She is not diaphoretic. PSYCH: She has a normal mood and affect. Behavior is normal. Judgment and thought content normal. Course Course 1135: The patient was evaluated in room B10. A complete history and physical exam was performed Cardiac monitoring: An order was placed for continuous cardiac monitoring. The monitor shows a rate of 90 with sinus rhythm interpreted by me External medical records reviewed. Blood work from the alf from today showed hemoglobin 6.9. 2 days ago 7.7 and on November 25 it was 9. Given this and the fact that the patient is Hemoccult positive. Will start the patient on Protonix bolus and drip. 1310: Vital signs stable. Labs show stable hemoglobin of 8.2. Patient was started on Protonix bolus and drip. [facility]. Administered Medications Sodium Chloride (Nss) 500 mls @ 125 mls/hr IV .Q4H [facility] Stop: 01/03/24 11:44 Last Admin: 12/04/23 17:19 Dose: 125 mls/hr Documented By: Infusion: 12/04/23 15:56 Dose: Infused Documented By: Admin: 12/04/23 11:52 Dose: 125 mls/hr Documented By: CINDI Pantoprazole Sodium 40 mg/ (Dextrose) 100 mls @ 20 mls/hr IV Q5H NILDA Stop: 01/03/24 11:59 Last Infusion: 12/04/23 17:32 Dose: Infused Documented By: Admin: 12/04/23 12:23 Dose: 8 mg/hr, 20 mls/hr Documented By: CINDI Discontinued Medications Pantoprazole Sodium 80 mg/ (Dextrose) 120 mls @ 480 mls/hr IV NOW ONE Stop: 12/04/23 11:57 Last Infusion: 12/04/23 12:33 Dose: Infused Documented By: Admin: 12/04/23 12:06 Dose: 480 mls/hr Documented By: CINDI Medical Decision Making Medical Records Attestation: I reviewed the patient's medical records. External medical records reviewed. Blood work from the alf from today showed hemoglobin 6.9. 2 days ago 7.7 and on November 25 it was 9. Laboratory Data Attestation: I reviewed the patient's lab results. 12/04/23 15:51 12/04/23 11:49 Lab Results 12/04/23 12/04/23 Range/Units 11:48 11:49 WBC 10.00 (4.8-10.8) K/ul RBC 3.19 L (4.20-5.40) M/uL Hgb 8.2 L (12.0-16.0) g/dl Hct 25.8 L (37.0-47.0) % MCV 80.9 (80.0-100.0) fL MCH 25.7 (25.0-34.0) pg MCHC 31.8 L (32.0-36.0) g/dL RDW Std Deviation 53.2 H (36.4-46.3) fL RDW Coeff of Mary 18.7 H (11.5-14.5) % Plt Count 266 (130-400) K/uL MPV 8.8 L (9.4-12.4) fL Immature Gran % (Auto) 1.4 % Neut % (Auto) 73.8 % Lymph % (Auto) 17.9 % [place] % (Auto) 5.6 % Eos % (Auto) 1.0 % Baso % (Auto) 0.3 % Neut # (Auto) 7.38 H (1.40-6.50) K/uL Lymph # (Auto) 1.79 (1.20-3.40) K/uL [place] # (Auto) 0.56 (0.11-0.59) K/uL Eos # (Auto) 0.10 (0.00-0.50) K/uL Baso # (Auto) 0.03 (0.00-0.20) K/uL Immature Gran # (Auto) 0.14 (0.01-0.20) K/uL PT 11.4 (9.0-12.0) Seconds INR 1.1 (0.9-1.1) APTT 27 (21-31) Seconds PTT Ratio 1.0 Sodium 133 L (136-145) mmol/L Potassium 3.6 (3.5-5.1) mmol/L Chloride 100 (98-107) mmol/L Carbon Dioxide 26 (21-32) mmol/L Anion Gap 7 (3-11) BUN 9 (6-23) mg/dl Creatinine 0.61 (0.6-1.2) mg/dl Est Cr Clr Drug Dosing 70.9 ml/min Est GFR ( Amer) 104.2 ml/min Est GFR (Non-Af Amer) 89.9 ml/min BUN/Creatinine Ratio 14.8 (10-20) Glucose 176 H (70-99(Fasting)) mg/dl Calcium 9.4 (8.6-10.3) mg/dl Blood Type O Positive Antibody Screen NEGATIVE [facility] Narrative 1135: The patient was evaluated in room B10. A complete history and physical exam was performed Cardiac monitoring: An order was placed for continuous cardiac monitoring. The monitor shows a rate of 90 with sinus rhythm interpreted by me External medical records reviewed. Blood work from the alf from today showed hemoglobin 6.9. 2 days ago 7.7 and on November 25 it was 9. Given this and the fact that the patient is Hemoccult positive. Will start the patient on Protonix bolus and drip. 1310: Vital signs stable. Labs show stable hemoglobin of 8.2. Patient was started on Protonix bolus and drip. [facility]. Impression & Plan GI bleed Discharge Plan Visit Data Chief Complaint: GI Bleed Stated Complaint: GI BLEED ED Provider: Chivo Engle Discharge Problem: GI bleed Patient Disposition: Admitted As Inpatient Discharge Instructions Interventions: ED Discharge Assessment Last Done: 12/04/23 15:53 Discharge Problem: GI bleed Qualifiers: GI bleed type/associated pathology: unspecified gastrointestinal hemorrhage type Qualified Code(s): K92.2 - Gastrointestinal hemorrhage, unspecified
[2023-12-04] MEDS: SODIUM CHLORIDE 0.9% 500 ML IV SCH (11:52)
[2023-12-04] MEDS: PANTOprazole 80 MG in DEXTROSE 5% 100 ML IV ONE (12:06)
[2023-12-04 12:14] LABS: Basophils # (auto) 0.03 K/uL (0.00-0.20); Basophils % (auto) 0.3 %; Hematocrit (blood only) 25.8 % (37.0-47.0); Hemoglobin 8.2 g/dl (12.0-16.0); Immature Granulocytes # (auto) 0.14 K/uL (0.01-0.20); Immature Granulocytes % (auto) 1.4 %; Lymphocytes # (auto) 1.79 K/uL (1.20-3.40); Lymphocytes % (auto) 17.9 %; Mean Corpuscular Hemoglobin 25.7 pg (25.0-34.0); Mean Corpuscular Hgb Conc 31.8 g/dL (32.0-36.0); Mean Corpuscular Volume 80.9 fL (80.0-100.0); Mean Platelet Volume 8.8 fL (9.4-12.4); Monocytes # (auto) 0.56 K/uL (0.11-0.59); Monocytes % (auto) 5.6 %; Neutrophils # (auto) 7.38 K/uL (1.40-6.50); Neutrophils % (auto) 73.8 %; Platelet Count 266 K/uL (130-400); RDW Coefficient of Variation 18.7 % (11.5-14.5); RDW Standard Deviation 53.2 fL (36.4-46.3); Red Blood Count 3.19 M/uL (4.20-5.40)
[2023-12-04] MEDS: PANTOprazole 40 MG in DEXTROSE 5% MINI-B 100 ML IV SCH (12:23)
[2023-12-04 12:27] LABS: BUN Creatinine Ratio 14.8 (10-20); Calcium 9.4 mg/dl (8.6-10.3); Creatinine Clr Calc Pharmacy 70.9 ml/min; Est GFR (African American) 104.2 ml/min; Est GFR (Non-African American) 89.9 ml/min; Potassium 3.6 mmol/L (3.5-5.1)
[2023-12-04 12:41] LABS: INR 1.1 (0.9-1.1); Partial Thromboplastin Time 27 Seconds (21-31); Prothrombin Time 11.4 Seconds (9.0-12.0)
--- NOTE | 2023-12-04 14:52 | History & Physical Report ---
Date of Service December 04, 2023 Assessment & Plan (1) Melanotic stools: (2) Atrial fibrillation with rapid ventricular response: (3) HTN (hypertension): (4) Dyslipidemia: (5) Type 2 diabetes mellitus: (6) Gangrene of hand: Plan: Melanotic Stools GI bleed Anemia - GI Consulted GI, patient has previously been supposed to have EGD but couldn't due to thrombocytopenia, today platelet count of 266. - H&H was reported <7 at facility, here is >8. hemmocult positive. Trend H&H. - Check C diff with recent abx for recurrent UTI, stool cultures ordered -Protonix IV ordered - VSS - Hold xarelto, last dose 11/29 (was recently transitioned from coumadin. Started xarelto at facility on 11/26) Hx of recurrent UTI - Check urine culture, Appears patient has recently completed a 1 week course of Augmentin which was started on 11/24, would have finished 2 days ago. Possibly worsening diarrhea. - Cont florastor Hx acrocyanosis of all 4 extremities as well as the tip of her nose 07/26-07/27 - S/p multiple amputations including recent Left foot transmetatarsals (11/01/23) and R hand 11/12/23) Chronic Afib (diagnosed Jul 2023) - Continue with metoprolol, diltiazem, digoxin. Monitor PT/INR. - Previously was on coumadin and then switched to Xarelto, appears last dose was on 11/30/23 per med rec on paper chart from facility - Can consider low dose heparin gtt if next H&H is stable at 1600 - due to GI bleeding may require holding anticoagulation - Appreciate GI recs Nonocclusive thrombus in the right IJ: - Right IJ catheter has been discontinued. Patient on xarelto for A-fib. DM II - A1c of 6.4 in September 2023. Hold metformin. Sliding scale insulin. Dyslipidemia - Continue home statin HTN - Chronic, stable, medications as above Mood disorder -Continue home Effexor DVT ppx: teds, scds Lines: 2 large-bore PIV FEN/GI: Allow clears, n.p.o. after midnight in case needs for EGD CODE: Full code Dispo: [facility], likely to remain in the hospital x 2 days A total of 90 minutes were spent with greater than 50% of that time face to face with the patient, personally reviewing all current laboratories, imaging studies, past medication reconciliation, outpatient chart review, and discussion with specialists to collaborate care for the patient with attending. Please see attending documentation for corrections and/or additions. History of Present Illness Primary Care Provider: Sulema Coughlin MD This is a 73 yo F with complex history. Pt has chronic medical issues of afib new from July, DM II, HTN, history of hepatitis C s/p treatment, HLD, B12 deficiency, osteoporosis history of tobacco use. Pt underwent ICU admission 07/26/2023 with septic shock due to complicated UTI requiring vasopressors, obstructive uropathy, grew out klebsiella, requriing cystoscopy and placement of R ureteral sent early on 07/26/23. Pt completed IV antibiotics with ceftriaxone x 14 days, then transitioned to cipro and completed course on 08/20. She developed acrocyanosis of all 4 extremities as well as the tip of her nose 07/26-07/27, thrombocytopenia. On 07/28 became progressively obtunded, transferred back to ICU and intubated that evening. Antibiotic coverage broadened due to concern for meningitis/encephalitis. MRI done and showed small right occipital lobe lacunar infarct. On 07/31, pt went into new- onset atrial fibrillation with RVR - started on beta-armando and digoxin. Extubated on 08/01, heparin gtt restarted. Heparin gtt changed to Lovenox. Developed acute on chronic diastolic CHF with pulmonary edema - diuresed with furosemide 40 mg IV BID but this was subsequently discontinued. Developed new- onset anemia with probable UGIB - saw GI, transfused two units, PPI BID. She needed EGD recommended by GI at the end of July but was unable to get it due to thrombocytopenia. . Ortho consulted for possible debridement of necrosis from prior cyanosis. Reconsulted on 08/08 - recommended podiatry for LE who saw pt 08/10. Pt started on leech therapy 08/09-08/13 per ortho and wound care recs. Upon completion of leech therapy, pt started on warfarin. Issues with vascular access during admission - had a right IJ line placed in the ICU, which was continued due to inability to place a PICC line due to poor vascular access. Pt started PT/OT. Accepted at [facility] and discharged there on 08/21. During last hospitalization from 08/25- 09/09: She was treated for Bacteremia with Alph strep not S. pne/enterocococcus, Metabolic encephalopathy, Likely dt secondary UTI, grew out Florina albican s/dubliniensis . On 11/01/[address] [facility] [address]. 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 She was admitted back to [facility] after that hospital stay. On 11/12/2023 she underwent right wrist amputation by Dr. Lay. Today, pt is here with her brother and sister. Patient herself is a very poor historian. Sister reports worsening diarrhea and melanotic stools which may have started about a week ago. Feels improved after bowel movement. Hemoccult was obtained at her facility, [facility], a few days ago which was positive. Pt also reports having nausea and vomiting on Saturday this week. She had complaints of nausea which is random, is unsure if food is aggravating her stomach. Denies coffee ground emesis or BRB. Denies pain or issues with swallowing. Denies fever, chills or sweats. Appears the patient was on Augmentin since 11/25/23 for past 7 days at [facility], possible that this is when her diarrhea started. Allergies Allergy/AdvReac Type Severity Reaction Status Date / Time No Known Allergies Allergy Verified 12/04/23 15:14 Home Medications Medication Instructions Recorded Confirmed Type acetaminophen 325 mg tablet 650 mg (2 x 325 mg) PO Q6H PRN 09/10/23 12/04/23 Rx (Tylenol) FEVER >100/PAIN #30 tabs atorvastatin 40 mg tablet 40 mg PO HS #30 tabs 09/10/23 12/04/23 Rx cyanocobalamin (vitamin B-12) 1,000 mcg PO QAM #30 tabs 09/10/23 12/04/23 Rx 1,000 mcg tablet digoxin 125 mcg (0.125 mg) tablet 0.125 mg PO HS #30 tabs 09/10/23 12/04/23 Rx (Digitek) diltiazem HCl 180 mg 180 mg PO QAM #30 caps 09/10/23 12/04/23 Rx capsule,extended release 24 hr magnesium oxide 400 mg (241.3 mg 400 mg PO QAM #60 tabs 09/10/23 12/04/23 Rx magnesium) tablet melatonin 3 mg tablet 3 mg PO HS PRN sleep #30 tabs 09/10/23 12/04/23 Rx metformin 1,000 mg tablet 1,000 mg PO BIDWMEAL #60 tabs 09/10/23 12/04/23 Rx tamsulosin 0.4 mg capsule 0.4 mg PO HS #30 caps 09/10/23 12/04/23 Rx Saccharomyces boulardii 250 mg 250 mg PO QAM 10/14/23 12/04/23 History capsule (Florastor) alendronate 70 mg tablet (Fosamax) 70 mg PO Q7D 10/14/23 12/04/23 History bisacodyl 10 mg rectal suppository 10 mg WA UD PRN Constipation 10/14/23 12/04/23 History (Dulcolax (bisacodyl)) calcium carbonate 500 mg-vitamin 1 tab PO QAM 10/14/23 12/04/23 History D3 5 mcg (200 unit) tablet (Calcium 500 + D) magnesium hydroxide 400 mg/5 mL 2,400 mg PO UD PRN Constipation 10/14/23 12/04/23 History oral suspension ondansetron HCl 4 mg tablet 4 mg PO Q8H PRN Nausea 10/14/23 12/04/23 History pantoprazole 40 mg tablet,delayed 40 mg PO BID 10/14/23 12/04/23 History release sodium phosphates 19 gram-7 118 ml WA UD PRN Constipation 10/14/23 12/04/23 History gram/118 mL enema (Fleet Enema) venlafaxine 150 mg 150 mg PO QAM 10/14/23 12/04/23 History capsule,extended release 24 hr loperamide 2 mg capsule 2 mg PO DIRECTED PRN .loose bm 12/04/23 12/04/23 History promethazine 25 mg/mL injection 25 mg IM Q6 PRN N/V 12/04/23 12/04/23 History solution rivaroxaban 20 mg tablet (Xarelto) 20 mg PO DAILY 12/04/23 12/04/23 History Past Med/Surg History Problem List Melanotic stools Gangrene of hand Complicated urinary tract infection (Acute) Dry gangrene (Acute) Bacteremia due to Gram-positive bacteria Ureteral stent present (Acute) Gangrene Thrombocytopenia Thrombocytopathia Anemia Hypokalemia (Acute) Hypomagnesemia (Acute) Nephrolithiasis Dyslipidemia Type 2 diabetes mellitus NIDDM Ureterolithiasis (Acute) hx Bacteremia (Acute) hx Atrial fibrillation with rapid ventricular response currently on chronic AC w/coumadin HTN (hypertension) S/P wrist surgery left 5 yrs ago Medical History Carotid artery stenosis Moderate LEFT ICA stenosis, possible high risk, ulcerative plaque in this location. There is streak artifact from the calcium and patient motion limiting evaluation. History of upper gastrointestinal bleeding 07/2023 Non-occlusive thrombus right internal jugular vein Cognitive communication deficit in setting of encephalopathy Dysphagia, oral phase denies choking, denies specialized diet at this time Muscle weakness (generalized) Difficulty in walking, not elsewhere classified Urinary tract infection, site not specified Klebsiella pneumoniae [k. pneumoniae] as the cause of diseases classified elsewhere 08/2023 Disseminated intravascular coagulation [defibrination syndrome] hx Chronic CHF (congestive heart failure) Hx of hepatitis C s/p treatment Acrocyanosis of all 4 extremities w/associated gangrene, also involving nose (s/p mercado tx) CVA (cerebral vascular accident) punctate right occipital lobe lacunar infarct - MRI 07/29/23 Dry gangrene Anemia Septic shock july/august 2023 (involving ICU care, w/pressor support and mechanical ventilation)>[facility]; per H&P-"pt tx aggresively w/IV blood pressure support and mech. ventilation. sepsis due to complicated UTI and bacteremia w/klebsiella pneumoniae, tx primarily w/IV cefepime. due to her severe sepsis and need for IV pressor, developed acrocyanosis/gangrene to all 4 extremities as well as distal nose. 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/gangrene" Complicated urinary tract infection Hydronephrosis due to obstruction of ureter hx Closed fracture of left distal radius and ulna hx History of COVID-19 07/2023, [facility], hospitalized 07/26/23-08/21/23 History of colon polyps Anxiety Surgical History S/P cystoscopy with ureteral stent placement 09/05/23>w/ureteroscopy and stone extraction, stent exchange; stent removed 09/09/23 History of colonoscopy History of hysterectomy History of tonsillectomy Family History Grandmother Family history of diabetes mellitus Family history of colon cancer Grandfather Family history of colon cancer Aunt Family history of colon cancer Uncle Family history of colon cancer Social History Smoking Status: Former smoker Tobacco Type: Cigarettes Second Hand Exposure: No; Do You Dip or Chew Tobacco: No; Hx Alcohol Use: No Preferred Language: Mongolian Communication Ability: Effective Hand Drawer In Helper Required: No Beliefs That Will Affect Care: None Current Living Situation: Long-Term Current Living Situation Comment: [facility] Feels Safe at Home: Yes Assistive Devices: None Review of Systems Review of Systems: Constitutional: No fever, sweats or chills Eyes: No diplopia, no worsening or blurred vision ENT: normal hearing, no trouble swallowing Respiratory: No cough, sputum, dyspnea at rest or on exertion Cardiovascular: No chest pain, tightness or palpitations Abdomen: No pain, nausea, vomiting, diarrhea or constipation Musculoskeletal: No joint pain, calf pain, swelling Neurologic: No weakness, numbness/tingling, or balance problems Psychiatric: No anxiety or depression Skin: No rash or itch Physical Exam Physical Exam: Please refer to attending addendum for physical exam. Results & Data Results & Data Vital Signs (Past 12 Hours) Vital Signs Temp Pulse Pulse Resp BP BP Pulse Ox 12/04/23 13:43 78 16 123/61 97 12/04/23 11:46 92 H 12/04/23 11:43 91 H 17 96 12/04/23 11:43 91 H 17 123/61 96 12/04/23 11:43 36.8 C 91 H 17 123/61 96 O2 Del Method 12/04/23 13:43 Room Air 12/04/23 11:46 12/04/23 11:43 Room Air 12/04/23 11:43 Room Air 12/04/23 11:43 Room Air Laboratory Results 12/04/23 12/04/23 11:49 11:48 WBC 10.00 RBC 3.19 L Hgb 8.2 L Hct 25.8 L MCV 80.9 MCH 25.7 MCHC 31.8 L RDW Std Deviation 53.2 H RDW Coeff of Mary 18.7 H Plt Count 266 MPV 8.8 L Immature Gran % (Auto) 1.4 Neut % (Auto) 73.8 Lymph % (Auto) 17.9 [place] % (Auto) 5.6 Eos % (Auto) 1.0 Baso % (Auto) 0.3 Neut # (Auto) 7.38 H Lymph # (Auto) 1.79 [place] # (Auto) 0.56 Eos # (Auto) 0.10 Baso # (Auto) 0.03 Immature Gran # (Auto) 0.14 PT 11.4 INR 1.1 APTT 27 PTT Ratio 1.0 Sodium 133 L Potassium 3.6 Chloride 100 Carbon Dioxide 26 Anion Gap 7 BUN 9 Creatinine 0.61 Est Cr Clr Drug Dosing 70.9 Est GFR ( Amer) 104.2 Est GFR (Non-Af Amer) 89.9 BUN/Creatinine Ratio 14.8 Glucose 176 H Calcium 9.4 Blood Type O Positive Antibody Screen NEGATIVE Medications Administered Home Medications Medication Instructions Recorded Confirmed Last Taken acetaminophen 325 mg tablet 650 mg (2 x 325 mg) PO Q6H PRN 09/10/23 12/04/23 11/06/23 05:15 (Tylenol) FEVER >100/PAIN #30 tabs atorvastatin 40 mg tablet 40 mg PO HS #30 tabs 09/10/23 12/04/23 11/10/23 cyanocobalamin (vitamin B-12) 1,000 mcg PO QAM #30 tabs 09/10/23 12/04/23 11/11/23 1,000 mcg tablet digoxin 125 mcg (0.125 mg) tablet 0.125 mg PO HS #30 tabs 09/10/23 12/04/23 11/10/23 (Digitek) diltiazem HCl 180 mg 180 mg PO QAM #30 caps 03/06/2312/04/23 11/11/23 capsule,extended release 24 hr magnesium oxide 400 mg (241.3 mg 400 mg PO QAM #60 tabs 09/10/23 12/04/23 magnesium) tablet melatonin 3 mg tablet 3 mg PO HS PRN sleep #30 tabs 09/10/23 12/04/23 Unknown metformin 1,000 mg tablet 1,000 mg PO BIDWMEAL #60 tabs 09/10/23 12/04/23 11/11/23 08:30 tamsulosin 0.4 mg capsule 0.4 mg PO HS #30 caps 09/10/23 12/04/23 11/10/23 Saccharomyces boulardii 250 mg 250 mg PO QAM 10/14/23 12/04/23 11/11/23 capsule (Florastor) alendronate 70 mg tablet (Fosamax) 70 mg PO Q7D 10/14/23 12/04/23 11/11/23 bisacodyl 10 mg rectal suppository 10 mg WA UD PRN Constipation 10/14/23 12/04/23 Unknown (Dulcolax (bisacodyl)) calcium carbonate 500 mg-vitamin 1 tab PO QAM 10/14/23 12/04/23 11/11/23 D3 5 mcg (200 unit) tablet (Calcium 500 + D) magnesium hydroxide 400 mg/5 mL 2,400 mg PO UD PRN Constipation 10/14/23 12/04/23 Unknown oral suspension ondansetron HCl 4 mg tablet 4 mg PO Q8H PRN Nausea 10/14/23 12/04/23 Unknown pantoprazole 40 mg tablet,delayed 40 mg PO BID 10/14/23 12/04/23 11/11/23 08:30 release sodium phosphates 19 gram-7 118 ml WA UD PRN Constipation 10/14/23 12/04/23 Unknown gram/118 mL enema (Fleet Enema) venlafaxine 150 mg 150 mg PO QAM 10/14/23 12/04/23 11/11/23 capsule,extended release 24 hr loperamide 2 mg capsule 2 mg PO DIRECTED PRN .loose bm 12/04/23 12/04/23 Unknown promethazine 25 mg/mL injection 25 mg IM Q6 PRN N/V 12/04/23 12/04/23 Unknown solution rivaroxaban 20 mg tablet (Xarelto) 20 mg PO DAILY 12/04/23 12/04/23 12/01/23 Active Medications Generic Name Dose Route Start Last Admin Trade Name Gonzalo PRN Reason Stop Dose Admin Sodium Chloride 500 mls @ 125 mls/hr 12/04/23 11:45 12/04/23 15:56 Nss IV 01/03/24 11:44 Infused .Q4H NILDA Infusion Pantoprazole Sodium 40 mg/ 100 mls @ 20 mls/hr 12/04/23 12:00 12/04/23 12:23 Dextrose IV 01/03/24 11:59 8 mg/hr Q5H NILDA 20 mls/hr Administration 8 MG/HR Code Status & VTE Plan Code Status Full code VTE Prophylaxis Plan VTE Prophylaxis will be ordered: Yes Supervising Physician Co-Signing Physician Notes I have seen and discussed the case with the collaborating advanced practitioner. I agree with the above H&P. I have reviewed and confirmed the patients medical history, the findings on physical examination, and the patients diagnosis and treatment plan with Geremias JACOBSON and agree with the information documented. In short, Ms. Kelly is a 73 yo F with complex history. Pt has chronic medical issues of afib new from July, DM II, HTN, history of hepatitis C s/p treatment, HLD, B12 deficiency, osteoporosis history of tobacco use who is admitted for concern of melanotic stool. Patient remains in [facility] for rehab and relies on staff to help her. She reports intermittent nausea and vomiting, but mostly postprandial and no blood noted. She has not witnessed her stools as she is unable to clean herself. She denies any fevers, chills, chest pain, or other acute concerns. She has not followed up with GI since her hospitalizations. She has history of acute on chronic anemia and has required multiple transfusions this year, most recently s/p her left foot amputation 11/04. GENERAL APPEARANCE: AxOx4, generally well-appearing female, fairly flat affect no acute distress. HEENT: NC, AT. MMM. EOMI, clear conjunctiva, oropharynx clear. NECK: Supple without lymphadenopathy. No stiffness or restricted ROM. HEART: Normal rate and regular rhythm, normal S1/S1, no m/r/g LUNGS: CTAB, moving air well. No crackles or wheezes are heard. ABDOMEN: Soft, nontender, nondistended with good bowel sounds heard. EXTREMITIES: Without cyanosis, clubbing or edema. right upper extremity in dressing s/p amputation, left foot TMA in dressing, CDI, left hand dry gangrene noted with line of demarcation at wrist , right dry gangrene noted of foot/digits NEUROLOGICAL: Grossly nonfocal. Alert and oriented, moving all 4 extremities. CN not formally tested but appear grossly intact. : #Acute on chronic anemia #Melanotic stool Fecal Occult reportedly + at [facility], hgb this am 6.9, repeat 8.2, now 7.1 -CLD and NPO at midnight Iron studies, b12, folate GI consult Trend Hgb, transfuse <7.0 Hold Ac at this time, resume upon stabilization of hgb rest of plan as above I spent a total of 35 minutes coordinating, documenting, and providing care for this patient excluding time spent in the performance of separately billed services. All of the aforementioned completed outside of collaborating with the assigned advanced practitioner for a full treatment plan. I have reviewed the advanced practitioner's documentation, and I agree with, and take responsibility for the plan of care (3) HTN (hypertension) Hypertension type: primary hypertension Qualified Code(s): I10 - Essential (primary) hypertension (5) Type 2 diabetes mellitus Diabetes mellitus complication status: with other specified complication Diabetes mellitus jail insulin use: without jail use Qualified Code(s): E11.69 - Type 2 diabetes mellitus with other specified complication
[2023-12-04] MEDS ORDERED: PROMETHAZINE HCL INJ 25 MG/ML 1 ML VIAL IM PRN (15:57)
[2023-12-04] MEDS ORDERED: ACETAMINOPHEN 325 MG TAB PO PRN (15:57)
[2023-12-04] MEDS ORDERED: DEXTROSE 50% 50 ML SYRINGE IV PRN (15:57)
[2023-12-04] MEDS ORDERED: GLUCOSE 40% GEL 15 GM TUBE PO PRN (15:57)
[2023-12-04] MEDS ORDERED: bisacodyL 10 MG SUPP PR PRN (15:57)
[2023-12-04] MEDS ORDERED: GLUCAGON FOR INJ 1 MG VIAL SQ PRN (15:57)
[2023-12-04] MEDS ORDERED: CARBOHYDRATES FOR HYPOGLYCEMIA PO PRN (15:57)
[2023-12-04] MEDS ORDERED: ONDANSETRON INJ 2 MG/ML 2 ML VIAL IV PRN (15:57)
[2023-12-04] MEDS ORDERED: GLUCOSE 10 TAB/TUBE PO PRN (15:57)
[2023-12-04] MEDS ORDERED: POLYETHYLENE (MIRALAX) 17 GM PACK PO PRN (15:57)
[2023-12-04] MEDS ORDERED: MELATONIN 3 MG TAB PO PRN (15:57)
[2023-12-04] MEDS ORDERED: ONDANSETRON 4 MG OD TAB PO PRN (16:03)
[2023-12-04 16:07] LABS: Hematocrit (blood only) 22.7 % (37.0-47.0); Hemoglobin 7.1 g/dl (12.0-16.0)
[2023-12-04] MEDS: INSULIN ASPART PER UNIT CHARGE SC SCH (19:19)
[2023-12-04] MEDS: TAMSULOSIN HCL 0.4 MG CAP PO SCH (20:22)
[2023-12-04] MEDS: DIGOXIN 0.125 MG TAB PO SCH (20:23)
[2023-12-04] MEDS: ATORVASTATIN 40 MG TAB PO SCH (20:23)
[2023-12-04 23:59] LABS: Adenovirus F 40/41 PCR Not Detected (NotDetected); Astrovirus PCR Not Detected (NotDetected); Campylobacter PCR Not Detected (NotDetected); Cryptosporidium PCR Not Detected (NotDetected); Cyclospora cayetanensis PCR Not Detected (NotDetected); Entamoeba histolytica PCR Not Detected (NotDetected); Enteroaggregative E.coli(EAEC) Not Detected (NotDetected); Enteropathogenic E.coli (EPEC) Not Detected (NotDetected); Enterotoxigenic E.coli (ETEC) Not Detected (NotDetected); Giardia lamblia PCR Not Detected (NotDetected); Norovirus GI/GII PCR Not Detected (NotDetected); Plesiomonas shigelloides PCR Not Detected (NotDetected); Rotavirus A PCR Not Detected (NotDetected); Salmonella PCR Not Detected (NotDetected); Sapovirus PCR Not Detected (NotDetected); Shiga-like Toxin E.coli (STEC) Not Detected (NotDetected); Shigella/Enteroinvasive E.coli Not Detected (NotDetected); Vibrio cholerae PCR Not Detected (NotDetected); Vibrio species PCR Not Detected (NotDetected); Yersinia enterocolitica PCR Not Detected (NotDetected)
[2023-12-05] MEDS ORDERED: Nursing to Pharmacy Communication SCH (04:15)
[2023-12-05] MEDS: SACCHAROMYCES BOULARDII 250 MG CAP PO SCH (08:01)
[2023-12-05] MEDS: MAGNESIUM OXIDE 400 MG TAB PO SCH (08:01)
[2023-12-05] MEDS: CALCIUM 600MG + VIT D 400 IU TAB PO SCH (08:01)
[2023-12-05] MEDS: CYANOCOBALAMIN (B-12) 500 MCG TABLET PO SCH (08:01)
[2023-12-05] MEDS: dilTIAZem HCL 180 MG CAPCR PO SCH (08:01)
[2023-12-05 08:04] LABS: Hematocrit (blood only) 21.4 % (37.0-47.0); Hemoglobin 6.6 g/dl (12.0-16.0); Mean Corpuscular Hemoglobin 24.9 pg (25.0-34.0); Mean Corpuscular Hgb Conc 30.8 g/dL (32.0-36.0); Mean Corpuscular Volume 80.8 fL (80.0-100.0); Mean Platelet Volume 8.8 fL (9.4-12.4); Platelet Count 247 K/uL (130-400); RDW Coefficient of Variation 18.7 % (11.5-14.5); RDW Standard Deviation 54.4 fL (36.4-46.3); Red Blood Count 2.65 M/uL (4.20-5.40); White Blood Count 7.41 K/ul (4.8-10.8)
[2023-12-05 08:12] LABS: BUN Creatinine Ratio 7.1 (10-20); Calcium 7.6 mg/dl (8.6-10.3); Creatinine Clr Calc Pharmacy 83.8 ml/min; Est GFR (African American) 107.2 ml/min; Est GFR (Non-African American) 92.5 ml/min; Magnesium 1.5 mg/dl (1.7-2.4); Phosphorus 2.9 mg/dl (2.5-4.9); Potassium 3.4 mmol/L (3.5-5.1)
[2023-12-05 08:32] LABS: Ferritin 17.9 ng/ml (8-388)
[2023-12-05 08:33] LABS: Folate (Folic Acid),Ser orPlas 6.12 ng/ml (>5.38)
[2023-12-05] MEDS: NSS + 20MEQ KCL 20 MEQ/1,000 ML BAG IV SCH (09:17)
--- NOTE | 2023-12-05 09:29 | Gastrointestinal Consultation ---
Date of Consultation December 05, 2023 Assessment & Plan (1) Melanotic stools: (2) Anemia: Plan -Continue to hold anticoagulation -Transfusion of PRBCs per primary team; Continue to monitor H/H -Keep NPO -Once transfusing, would advise EGD for further evaluation of anemia if no issu es with anesthesia team. -Continue IV Protonix gtt -Further recommendations after testing Supervising Physician Co-Signing Physician Notes Agree with SUZIE Alvarez as above Interviewed and examined patient and agree with above Abd: Soft, NT, ND, +BS Continue current therapy and supportive care Proceed with EGD now History of Present Illness Reason for Consultation: Anemia, melena Attending Physician: Víctor Santana MD History of Present Illness Patient is a 73 yo female with PMH of Afib, DM2, HTN, history of hep C, HLD, B12 deficiency, osteoporosis, & acrocyanosis of extremities with gangrene. She had an extended ICU stay in July due to septic shock. She was to have an EGD during that stay due to anemia, but due to platelets and septic shock she could not undergo an EGD at that time. She was hospitalized again in August and August for bacteremia. 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 She also underwent a right wrist amputation by Dr. Lay in October 2023. She was referred to the ED at [facility] due to diarrhea & melanotic stools which started >1 week ago. She had a hemoccult at [facility] that was positive. She denies heartburn or reflux. She had a single episode of nausea and vomiting, but denies coffee-ground emesis/hematemesis. GI has been consulted as she is anemic with melena. Her H/H is presently 6.6/21.4. She is currently on a Protonix gtt. She takes Xarelto for her Afib and this is currently on hold. Patient is a difficult historian. She is unable to elaborate on frequency of melena as she notes she wasn't the one who noticed it. Allergies Allergy/AdvReac Type Severity Reaction Status Date / Time No Known Allergies Allergy Verified 12/04/23 15:14 Home Medications Medication Instructions Recorded Confirmed Type acetaminophen 325 mg tablet 650 mg (2 x 325 mg) PO Q6H PRN 09/10/23 12/04/23 Rx (Tylenol) FEVER >100/PAIN #30 tabs atorvastatin 40 mg tablet 40 mg PO HS #30 tabs 09/10/23 12/04/23 Rx cyanocobalamin (vitamin B-12) 1,000 mcg PO QAM #30 tabs 09/10/23 12/04/23 Rx 1,000 mcg tablet digoxin 125 mcg (0.125 mg) tablet 0.125 mg PO HS #30 tabs 09/10/23 12/04/23 Rx (Digitek) diltiazem HCl 180 mg 180 mg PO QAM #30 caps 09/10/23 12/04/23 Rx capsule,extended release 24 hr magnesium oxide 400 mg (241.3 mg 400 mg PO QAM #60 tabs 09/10/23 12/04/23 Rx magnesium) tablet melatonin 3 mg tablet 3 mg PO HS PRN sleep #30 tabs 09/10/23 12/04/23 Rx metformin 1,000 mg tablet 1,000 mg PO BIDWMEAL #60 tabs 09/10/23 12/04/23 Rx tamsulosin 0.4 mg capsule 0.4 mg PO HS #30 caps 09/10/23 12/04/23 Rx Saccharomyces boulardii 250 mg 250 mg PO QAM 10/14/23 12/04/23 History capsule (Florastor) alendronate 70 mg tablet (Fosamax) 70 mg PO Q7D 10/14/23 12/04/23 History bisacodyl 10 mg rectal suppository 10 mg CO UD PRN Constipation 10/14/23 12/04/23 History (Dulcolax (bisacodyl)) calcium carbonate 500 mg-vitamin 1 tab PO QAM 10/14/23 12/04/23 History D3 5 mcg (200 unit) tablet (Calcium 500 + D) magnesium hydroxide 400 mg/5 mL 2,400 mg PO UD PRN Constipation 10/14/23 12/04/23 History oral suspension ondansetron HCl 4 mg tablet 4 mg PO Q8H PRN Nausea 10/14/23 12/04/23 History pantoprazole 40 mg tablet,delayed 40 mg PO BID 10/14/23 12/04/23 History release sodium phosphates 19 gram-7 118 ml CO UD PRN Constipation 04/15/24 06/05/24 History gram/118 mL enema (Fleet Enema) venlafaxine 150 mg 150 mg PO QAM 10/14/23 12/04/23 History capsule,extended release 24 hr loperamide 2 mg capsule 2 mg PO DIRECTED PRN .loose bm 12/04/23 12/04/23 History promethazine 25 mg/mL injection 25 mg IM Q6 PRN N/V 12/04/23 12/04/23 History solution rivaroxaban 20 mg tablet (Xarelto) 20 mg PO DAILY 12/04/23 12/04/23 History Patient History Medical History (Updated 12/05/23 @ 12:19 by Víctor Santana MD) Encounter for pre-operative examination Carotid artery stenosis Moderate LEFT ICA stenosis, possible high risk, ulcerative plaque in this location. There is streak artifact from the calcium and patient motion limiting evaluation. History of upper gastrointestinal bleeding 07/2023 Non-occlusive thrombus right internal jugular vein Cognitive communication deficit in setting of encephalopathy Dysphagia, oral phase denies choking, denies specialized diet at this time Muscle weakness (generalized) Difficulty in walking, not elsewhere classified Urinary tract infection, site not specified Klebsiella pneumoniae [k. 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 ventilation. sepsis due to complicated UTI and bacteremia w/klebsiella pneumoniae, tx primarily w/IV cefepime. due to her severe sepsis and need for IV pressor, developed acrocyanosis/gangrene to all 4 extremities as well as distal nose. 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/gangrene" Complicated urinary tract infection Hydronephrosis due to obstruction of ureter hx Closed fracture of left distal radius and ulna hx History of COVID-19 07/2023, [facility], hospitalized 07/26/23-08/21/23 History of colon polyps Anxiety Surgical History S/P cystoscopy with ureteral stent placement 09/05/23>w/ureteroscopy and stone extraction, stent exchange; stent removed 09/09/23 History of colonoscopy History of hysterectomy History of tonsillectomy Family History Grandmother Family history of diabetes mellitus Family history of colon cancer Grandfather Family history of colon cancer Aunt Family history of colon cancer Uncle Family history of colon cancer Social History Smoking Status: Former smoker Tobacco Type: Cigarettes Second Hand Exposure: No; Do You Dip or Chew Tobacco: No; Hx Alcohol Use: No Hx Substance Use: No Preferred Language: Syriac Communication Ability: Effective Psychotherapist Counselor Required: No Beliefs That Will Affect Care: None Current Living Situation: Senior Care Current Living Situation Comment: [facility] Feels Safe at Home: No Is there a partner from a previous relationship who is making you feel unsafe now?: No Safety Concerns: Feels Safe At This Time Assistive Devices: Wheelchair Review of Systems Constitutional: + fatigue; no fever and no chills Respiratory: no cough and no dyspnea Cardiovascular: no chest pain Gastrointestinal: + nausea and + melena; no abdominal pain Psychiatric: no problem reported Physical Exam Constitutional: no acute distress Respiratory: normal respiratory effort, lungs clear to auscultation Cardiovascular: Rate/Rhythm: not tachycardic Gastrointestinal (Abdomen): normal bowel sounds, soft, nontender, no hepatosplenomegaly Psychiatric: Orientation: alert and oriented x 3 Results & Data Vital Signs (Past 12 Hours) Vital Signs Temp Pulse Pulse Resp BP Pulse Ox O2 Del Method 12/05/23 07:04 36.5 C 83 19 137/71 95 Room Air 12/05/23 02:37 36.6 C 76 18 106/62 97 Room Air 12/04/23 22:36 36.7 C 78 18 125/68 98 Room Air 12/04/23 21:59 78 PG Care Time/CCT Total # of Minutes Spent Total Time Spent with Patient: Total time spent is greater than 50% in coordination of care (as documented) at patient's floor/unit and/or counseling patient: Coding Level of Care Code 64277 INT INP/OBS CARE MIN Diagnoses Melanotic stools K92.1 Anemia, unspecified type D64.9 Anemia type: unspecified type (2) Anemia Anemia type: unspecified type Qualified Code(s): D64.9 - Anemia, unspecified
[2023-12-05] MEDS: VENLAFAXINE HCL XR 150 MG CAPXR PO SCH (09:55)
[2023-12-05] MEDS ORDERED: SODIUM CHLORIDE 0.9% 250 ML IV PRN (10:38)
--- NOTE | 2023-12-05 11:26 | Anesthesiology Consultation ---
Date of Service December 05, 2023 Assessment & Plan Chart Review Chart Review: Acceptable Risk for Surgery (pending transfusion to bring Hgb > 7.0), Patient NOT seen in Pre Admission Testing and data entry technician initiated Consults Requested none Proposed Anesthesia Anesthesia Type: MAC History Surgery Operation Date: 12/05/23 16:30 Proposed Procedures p Esophagogastroduodenoscopy Dr Francisco - Chauncey Joya Case, DO Height/Weight Height: 5 ft 6 in Weight: 59.6 kg Allergies Allergy/AdvReac Type Severity Reaction Status Date / Time No Known Allergies Allergy Verified 12/04/23 15:14 Medications Home Medications Medication Instructions Recorded Confirmed Last Taken acetaminophen 325 mg tablet 650 mg (2 x 325 mg) PO Q6H PRN 09/10/23 12/04/23 11/06/23 05:15 (Tylenol) FEVER >100/PAIN #30 tabs atorvastatin 40 mg tablet 40 mg PO HS #30 tabs 09/10/23 12/04/23 11/10/23 cyanocobalamin (vitamin B-12) 1,000 mcg PO QAM #30 tabs 09/10/23 12/04/23 11/11/23 1,000 mcg tablet digoxin 125 mcg (0.125 mg) tablet 0.125 mg PO HS #30 tabs 09/10/23 12/04/23 11/10/23 (Digitek) diltiazem HCl 180 mg 180 mg PO QAM #30 caps 09/10/23 12/04/23 11/11/23 capsule,extended release 24 hr magnesium oxide 400 mg (241.3 mg 400 mg PO QAM #60 tabs 09/10/23 12/04/23 11/11/23 magnesium) tablet melatonin 3 mg tablet 3 mg PO HS PRN sleep #30 tabs 09/10/23 12/04/23 Unknown metformin 1,000 mg tablet 1,000 mg PO BIDWMEAL #60 tabs 09/10/23 12/04/23 11/11/23 08:30 tamsulosin 0.4 mg capsule 0.4 mg PO HS #30 caps 09/10/23 12/04/23 11/10/23 Saccharomyces boulardii 250 mg 250 mg PO QAM 10/14/23 12/04/23 11/11/23 capsule (Florastor) alendronate 70 mg tablet (Fosamax) 70 mg PO Q7D 10/14/23 12/04/23 11/11/23 bisacodyl 10 mg rectal suppository 10 mg WI UD PRN Constipation 10/14/23 12/04/23 Unknown (Dulcolax (bisacodyl)) calcium carbonate 500 mg-vitamin 1 tab PO QAM 10/14/23 12/04/23 11/11/23 D3 5 mcg (200 unit) tablet (Calcium 500 + D) magnesium hydroxide 400 mg/5 mL 2,400 mg PO UD PRN Constipation 10/14/23 12/04/23 Unknown oral suspension ondansetron HCl 4 mg tablet 4 mg PO Q8H PRN Nausea 10/14/23 12/04/23 Unknown pantoprazole 40 mg tablet,delayed 40 mg PO BID 10/14/23 12/04/23 11/11/23 08:30 release sodium phosphates 19 gram-7 118 ml WI UD PRN Constipation 10/14/23 12/04/23 Unknown gram/118 mL enema (Fleet Enema) venlafaxine 150 mg 150 mg PO QAM 10/14/23 12/04/23 11/11/23 capsule,extended release 24 hr loperamide 2 mg capsule 2 mg PO DIRECTED PRN .loose bm 12/04/23 12/04/23 Unknown promethazine 25 mg/mL injection 25 mg IM Q6 PRN N/V 12/04/23 12/04/23 Unknown solution rivaroxaban 20 mg tablet (Xarelto) 20 mg PO DAILY 12/04/23 12/04/23 12/01/23 Active Medications Generic Name Dose Route Start Last Admin Trade Name Freq PRN Reason Stop Dose Admin Atorvastatin Calcium 40 mg 12/04/23 21:00 12/04/23 20:23 Atorvastatin 40 Mg Tab PO 01/03/24 20:59 40 mg HS NILDA Administration Calcium/Vitamin D 1 tab 12/05/23 09:00 12/05/23 08:01 Calcium 600mg + Vit D 400 Iu Tab PO 01/04/24 08:59 1 tab QAM NILDA Administration Cyanocobalamin 1,000 mcg 12/05/23 09:00 12/05/23 08:01 Cyanocobalamin (B-12) 500 Mcg Tablet PO 01/04/24 08:59 1,000 mcg QAM NILDA Administration Digoxin 0.125 mg 12/04/23 21:00 12/04/23 20:23 Digoxin 0.125 Mg Tab PO 01/03/24 20:59 0.125 mg HS NILDA Administration Diltiazem HCl 180 mg 12/05/23 09:00 12/05/23 08:01 Diltiazem Hcl 180 Mg Capcr PO 01/04/24 08:59 180 mg QAM NILDA Administration Pantoprazole Sodium 40 mg/ 100 mls @ 20 mls/hr 12/04/23 12:00 12/05/23 11:02 Dextrose IV 01/03/24 11:59 8 mg/hr Q5H NILDA 20 mls/hr Administration 8 MG/HR Potassium Chloride/Sodium Chloride 20 meq in 1,000 mls @ 100 mls/hr 12/05/23 09:00 12/05/23 09:17 Normal Saline W/20 Meq Kcl IV 12/06/23 14:59 100 mls/hr .Q10H NILDA Administration Protocol Insulin Aspart 0 units 12/04/23 16:30 12/05/23 07:54 Insulin Aspart Per Unit Charge SC 01/03/24 16:29 Not Given ACHS NILDA Magnesium Oxide 400 mg 12/05/23 09:00 12/05/23 08:01 Magnesium Oxide 400 Mg Tab PO 01/04/24 08:59 400 mg QAM NILDA Administration Saccharomyces Boulardii 250 mg 12/05/23 09:00 12/05/23 08:01 Saccharomyces Boulardii 250 Mg Cap PO 01/04/24 08:59 250 mg QAM NILDA Administration Tamsulosin HCl 0.4 mg 12/04/23 21:00 12/04/23 20:22 Tamsulosin Hcl 0.4 Mg Cap PO 01/03/24 20:59 0.4 mg HS NILDA Administration Venlafaxine HCl 150 mg 12/05/23 09:00 12/05/23 09:55 Venlafaxine Hcl Xr 150 Mg Capxr PO 01/04/24 08:59 150 mg QAM NILDA Administration Past Medical History Medical History (Updated 12/05/23 @ 11:30 by Shelton Lake MD) Encounter for pre-operative examination Carotid artery stenosis Moderate LEFT ICA stenosis, possible high risk, ulcerative plaque in this location. There is streak artifact from the calcium and patient motion limiting evaluation. History of upper gastrointestinal bleeding 07/2023 Non-occlusive thrombus right internal jugular vein Cognitive communication deficit in setting of encephalopathy Dysphagia, oral phase denies choking, denies specialized diet at this time Muscle weakness (generalized) Difficulty in walking, not elsewhere classified Urinary tract infection, site not specified Klebsiella pneumoniae [k. 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 ventilation. sepsis due to complicated UTI and bacteremia w/klebsiella pneumoniae, tx primarily w/IV cefepime. due to her severe sepsis and need for IV pressor, developed acrocyanosis/gangrene to all 4 extremities as well as distal nose. 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/gangrene" Complicated urinary tract infection Hydronephrosis due to obstruction of ureter hx Closed fracture of left distal radius and ulna hx History of COVID-19 07/2023, [facility], hospitalized 07/26/23-08/21/23 History of colon polyps Anxiety Past Family History Family History Grandmother Family history of diabetes mellitus Family history of colon cancer Grandfather Family history of colon cancer Aunt Family history of colon cancer Uncle Family history of colon cancer Past Surgical History Surgical History S/P cystoscopy with ureteral stent placement 09/05/23>w/ureteroscopy and stone extraction, stent exchange; stent removed 09/09/23 History of colonoscopy History of hysterectomy History of tonsillectomy Social History Smoking Status: Former smoker tobacco type: cigarettes Do You Dip or Chew Tobacco: No Hx Alcohol Use: No Hx Substance Use: No substance use type: does not use Physical Exam Vital Signs Last Vital Signs Temp 36.5 C 12/05/23 07:04 Pulse 83 12/05/23 07:04 Resp 19 12/05/23 07:04 BP 137/71 12/05/23 07:04 Pulse Ox 95 12/05/23 07:04 O2 Del Method Room Air 12/05/23 07:04 Testing Laboratory Results 12/05/23 06:29 12/05/23 06:29 PT 11.4 Seconds (9.0-12.0) 12/04/23 11:49 INR 1.1 (0.9-1.1) 12/04/23 11:49 APTT 27 Seconds (21-31) 12/04/23 11:49 Blood Type O Positive 12/04/23 11:48 Antibody Screen NEGATIVE 12/04/23 11:48 12/05/23 07:05 POC Glucose 144 H Electrocardiogram Date: 08/25/23 Blood Pressure : / mmHG Vent. Rate : 081 BPM Atrial Rate : 081 BPM P-R Int : 150 ms QRS Dur : 078 ms QT Int : 366 ms P-R-T Axes : 076 082 083 degrees QTc Int : 425 ms Normal sinus rhythm Normal ECG When compared with ECG of 24-AUG-2023 14:56, No significant change was found Confirmed by Cabrera Godfrey ([id number]) on 08/26/2023 1:27:17 PM Chest X-Ray Date: 08/25/23 HISTORY: Sepsis COMPARISON: Chest 08/24/2023. FINDINGS: The heart is normal in size. A few bibasilar linear densities favor subsegmental atelectasis are scarring. This remains unchanged. No new focal lung consolidations to suggest a pneumonia. No evidence for pulmonary edema. No acute fractures. A right jugular central venous catheter terminates at the proximal SVC. Small bilateral pleural effusions persist. IMPRESSION: Small bilateral pleural effusions and bibasilar linear densities again noted. This favors subsegmental atelectasis. Echocardiogram Date: 08/26/23 EF: 60-65 LV Function: normal RWMA: + none Valvular Disease: + MR (mild)
--- NOTE | 2023-12-05 12:20 | Hospitalist Progress Note ---
Date of Service December 05, 2023 Assessment & Plan (1) Acute blood loss anemia: Plan: Secondary to GI bleed with melanotic stool - GI Consulted GI, patient has previously been supposed to have EGD but couldn't due to thrombocytopenia, today platelet count of 266. - H&H was reported <7 at facility, here is >8. hemmocult positive. -Protonix IV ordered - VSS - Hold xarelto, last dose 11/29 (was recently transitioned from coumadin. Started xarelto at facility on 11/26) -Hemoglobin dropped to below 7 and she was transfused with 2 units of blood -Appreciate GI input and recommendation for EGD this afternoon -Remains otherwise free from any symptoms (2) Melanotic stools: (3) Atrial fibrillation with rapid ventricular response: Plan: Chronic Afib (diagnosed Jul 2023) - Continue with metoprolol, diltiazem, digoxin. Monitor PT/INR. - Previously was on coumadin and then switched to Xarelto, appears last dose was on 11/30/23 per med rec on paper chart from facility - Can consider low dose heparin gtt if next H&H is stable at 1600 - due to GI bleeding may require holding anticoagulation - Appreciate GI recs Rate is controlled Has been on Xarelto On hold for acute GI bleed Will try to restart if EGD is normal and there is no evidence of ongoing bleeding (4) Gangrene of hand: Plan: Hx acrocyanosis of all 4 extremities as well as the tip of her nose 07/26-07/27 - S/p multiple amputations including recent Left foot transmetatarsals (11/01/23) and R hand 11/12/23) -Right anterior foot -Significant dry gangrenous change with black eschar formation left anterior hand and fingers likely glove -Denies any significant symptoms (5) HTN (hypertension): Plan: Blood pressure remains reasonable and seems to be upper side of normal (6) Dyslipidemia: (7) Type 2 diabetes mellitus: Plan Hx of recurrent UTI - Check urine culture, Appears patient has recently completed a 1 week course of Augmentin which was started on 11/24, would have finished 2 days ago. Possibly worsening diarrhea. - Cont florastor - Check C diff with recent abx for recurrent UTI, stool cultures ordered- negative so far Nonocclusive thrombus in the right IJ: - Right IJ catheter has been discontinued. Patient on xarelto for A-fib. DM II - A1c of 6.4 in September 2023. Hold metformin. Sliding scale insulin. Dyslipidemia - Continue home statin HTN - Chronic, stable, medications as above Mood disorder -Continue home Effexor DVT ppx: teds, scds Lines: 2 large-bore PIV FEN/GI: Allow clears, n.p.o. after midnight in case needs for EGD CODE: Full code [facility]po: [facility], likely to remain in the hospital x 2 days Admission and Anticipated Discharge Date Admission Date: December 04, 2023 Subjective 12/05/2023 The patient was seen and examined in telemetry unit She has been complaining of melanotic stool Remain generally weak and lethargic but denies any other significant symptoms No chest pain, palpitation or shortness of breath at rest No abdominal pain, nausea and or vomiting Denies any pain in the extremities Review of Systems Review of Systems: All systems reviewed and are unremarkable except as noted below Physical Exam Physical Exam: Lying in bed without any acute distress Constitutional: + ill appearing and average body habitus Eyes: PERRL, conjunctivae normal, anicteric sclerae ENMT: external ear and nose normal, oropharynx normal Neck: trachea midline, no thyromegaly Respiratory: no respiratory distress Auscultation: lungs clear to auscultation bilaterally Cardiovascular: Rate/Rhythm: regular rate and regular rhythm; not tachycardic Heart Sounds: normal S1 and normal S2; no murmur Extremities: no edema Gastrointestinal (Abdomen): Inspection/Auscultation: normal bowel sounds; abdomen not distended Percussion/Palpation: abdomen soft; abdomen nontender Musculoskeletal: Extremities: + hand abnormality (Amputation of the right hand , black eschar likely cast on the left hand) Bilateral; + extremities abnormal to inspection (Amputation of the right hand, right and left distal feet,) Neurologic: normal touch/pain/proprioception and moves all extremities Lymphatic: no cervical or axillary lymphadenopathy Results & Data Results & Data Vital Signs (Past 12 Hours) Vital Signs Temp Pulse Pulse Resp BP BP Pulse Ox 12/05/23 12:02 82 17 148/71 H 98 12/05/23 11:55 36.8 C 84 18 150/72 H 97 12/05/23 11:40 36.7 C 82 18 149/69 H 98 12/05/23 07:04 36.5 C 83 19 137/71 95 12/05/23 07:00 12/05/23 02:37 36.6 C 76 18 106/62 97 O2 Del Method 12/05/23 12:02 12/05/23 11:55 12/05/23 11:40 12/05/23 07:04 Room Air 12/05/23 07:00 Room Air 12/05/23 02:37 Room Air Laboratory Results Short CBC 12/04/23 12/05/23 12/05/23 Range/Units 15:51 06:29 13:56 WBC 7.41 (4.8-10.8) K/ul Hgb 7.1 L 6.6 L* 8.9 L (12.0-16.0) g/dl Hct 22.7 L 21.4 L 27.5 L (37.0-47.0) % Plt Count 247 (130-400) K/uL BMP 12/05/23 06:29 Sodium 138 Potassium 3.4 L Chloride 108 H Carbon Dioxide 25 BUN 4 L Creatinine 0.56 L Glucose 127 H Calcium 7.6 L Medications Administered Current Inpatient Medications Acetaminophen (Acetaminophen 325 Mg Tab) 650 mg PO Q6H PRN PRN Reason: FEVER >100/PAIN Stop: 01/03/24 15:56 Alendronate Sodium (Alendronate Sodium 70 Mg Tab) 70 mg PO Mo@0630 NILDA Stop: 01/08/24 06:29 Atorvastatin Calcium (Atorvastatin 40 Mg Tab) 40 mg PO HS NILDA Stop: 01/03/24 20:59 Last Admin: 12/04/23 20:23 Dose: 40 mg Bisacodyl (Bisacodyl 10 Mg Supp) 10 mg TN UD PRN PRN Reason: Constipation Stop: 01/03/24 15:56 Calcium/Vitamin D (Calcium 600mg + Vit D 400 Iu Tab) 1 tab PO QAM NILDA Stop: 01/04/24 08:59 Last Admin: 12/05/23 08:01 Dose: 1 tab Cyanocobalamin (Cyanocobalamin (B-12) 500 Mcg Tablet) 1,000 mcg PO QAM NILDA Stop: 01/04/24 08:59 Last Admin: 12/05/23 08:01 Dose: 1,000 mcg Dextrose (Dextrose 50% 50 Ml Syringe) 25 - 50 ml IV UD PRN; Protocol PRN Reason: Hypoglycemia Protocol Stop: 01/03/24 15:56 Digoxin (Digoxin 0.125 Mg Tab) 0.125 mg PO HS [facility] Stop: 01/03/24 20:59 Last Admin: 12/04/23 20:23 Dose: 0.125 mg Diltiazem HCl (Diltiazem Hcl 180 Mg Capcr) 180 mg PO QAM NILDA Stop: 01/04/24 08:59 Last Admin: 12/05/23 08:01 Dose: 180 mg Glucagon (Glucagon For Inj 1 Mg Vial) 1 mg SQ UD PRN; Protocol PRN Reason: Hypoglycemia Protocol Stop: 01/03/24 15:56 Glucose (Glucose 40% Gel 15 Gm Tube) 15 - 30 gm PO UD PRN; Protocol PRN Reason: Hypoglycemia Protocol Stop: 01/03/24 15:56 Glucose (Glucose 10 Tab/Tube) 4 - 8 tab PO UD PRN; Protocol PRN Reason: Hypoglycemia Treatment Stop: 01/03/24 15:56 Pantoprazole Sodium 40 mg/ (Dextrose) 100 mls @ 20 mls/hr IV Q5H [facility] Stop: 01/03/24 11:59 Last Admin: 12/05/23 11:02 Dose: 8 mg/hr, 20 mls/hr Potassium Chloride/Sodium Chloride (Normal Saline W/20 Meq Kcl) 20 meq in 1,000 mls @ 100 mls/hr IV .Q10H NILDA; Protocol Stop: 12/06/23 14:59 Last Admin: 12/05/23 09:17 Dose: 100 mls/hr Sodium Chloride (Nss) 250 mls @ 15 mls/hr IV .[id number] PRN PRN Reason: For Transfusion Duration Stop: 12/05/23 20:39 Insulin Aspart (Insulin Aspart Per Unit Charge) 0 units SC ACHS [facility] Stop: 01/03/24 16:29 Last Admin: 12/05/23 14:15 Dose: Not Given Magnesium Oxide (Magnesium Oxide 400 Mg Tab) 400 mg PO QAM [facility] Stop: 01/04/24 08:59 Last Admin: 12/05/23 08:01 Dose: 400 mg Melatonin (Melatonin 3 Mg Tab) 3 mg PO HS PRN PRN Reason: sleep Stop: 01/03/24 15:56 Miscellaneous (Carbohydrates For Hypoglycemia ) 15 - 30 gm PO UD PRN PRN Reason: Hypoglycemia Protocol Stop: 01/03/24 15:56 Ondansetron HCl (Ondansetron Inj 2 Mg/Ml 2 Ml Vial) 4 mg IV Q6H PRN PRN Reason: Nausea Stop: 01/03/24 15:56 Ondansetron HCl (Ondansetron 4 Mg Od Tab) 4 mg PO Q8H PRN PRN Reason: Nausea Stop: 01/03/24 16:02 Polyethylene Glycol (Polyethylene (Miralax) 17 Gm Pack) 17 gm PO DAILY PRN PRN Reason: Constipation Stop: 01/03/24 15:56 Promethazine HCl (Promethazine Hcl Inj 25 Mg/Ml 1 Ml Vial) 25 mg IM Q6 PRN PRN Reason: Nausea And Vomiting Stop: 12/06/23 23:59 Saccharomyces Boulardii (Saccharomyces Boulardii 250 Mg Cap) 250 [facility] [place] Stop: 01/04/24 08:59 Last Admin: 12/05/23 08:01 Dose: 250 mg Tamsulosin HCl (Tamsulosin Hcl 0.4 Mg Cap) 0.4 mg PO [facility] Stop: 01/03/24 20:59 Last Admin: 12/04/23 20:22 Dose: 0.4 mg Venlafaxine HCl (Venlafaxine Hcl Xr 150 Mg Capxr) 150 mg PO QAM [facility] Stop: 01/04/24 08:59 Last Admin: 12/05/23 09:55 Dose: 150 mg (5) HTN (hypertension) Hypertension type: primary hypertension Qualified Code(s): I10 - Essential (primary) hypertension (7) Type 2 diabetes mellitus Diabetes mellitus complication status: with other specified complication Diabetes mellitus biostatistics manager insulin use: without detention use Qualified Code(s): E11.69 - Type 2 diabetes mellitus with other specified complication
[2023-12-05 14:20] LABS: Hematocrit (blood only) 27.5 % (37.0-47.0); Hemoglobin 8.9 g/dl (12.0-16.0)
--- NOTE | 2023-12-05 15:55 | Communication Note ---
Date of Service: December 05, 2023 Patient underwent an EGD for anemia & melena. She was found to have 5 AVMs and bipolar treatment was completed. She should continue an IV Protonix drip at the present time. Do not advance beyond a clear liquid diet for today. Continue to monitor H/H and monitor for ongoing melena/overt GI bleeding.
--- NOTE | 2023-12-05 16:06 | GI REPORT ---
Patient Name: Zhane Kelly Procedure Date: 12/05/2023 2:46 PM Date of : 1950 Admit Type: Inpatient Age: 73 Gender: Female Attending MD: Chauncey Francisco DO, Procedure: Upper GI endoscopy Providers: Chauncey Francisco DO Referring MD: Víctor Santana Indications: Acute post hemorrhagic anemia, Melena Medicines: Monitored Anesthesia Care Complications: No immediate complications. Estimated Blood Loss: Estimated blood loss: none. Procedure: Pre-Anesthesia Assessment: - Prior to the procedure, a History and Physical was performed, and patient medications and allergies were reviewed. The patient's tolerance of previous anesthesia was also reviewed. The risks and benefits of the procedure and the sedation options and risks were discussed with the patient. All questions were answered, and informed consent was obtained. Prior Anticoagulants: The patient has taken Xarelto (rivaroxaban), last dose was 4 days prior to procedure. ASA Grade Assessment: III - A patient with severe systemic disease. After reviewing the risks and benefits, the patient was deemed in satisfactory condition to undergo the procedure. After obtaining informed consent, the endoscope was passed under direct vision. Throughout the procedure, the patient's blood pressure, pulse, and oxygen saturations were monitored continuously. The Scope was introduced through the mouth, and advanced to the second part of duodenum. The upper GI endoscopy was accomplished without difficulty. The patient tolerated the procedure well. Findings: The esophagus was normal. A small hiatal hernia was present. Localized mild inflammation characterized by erythema was found in the gastric antrum. Five 2 to 8 mm angioectasias with bleeding were found in the duodenal bulb and in the second portion of the duodenum. Fulguration to ablate the lesion by bipolar probe was successful. Impression: - Normal esophagus. - Small hiatal hernia. - Gastritis. - Five bleeding angioectasias in the duodenum. Treated with bipolar cautery. - No specimens collected. Recommendation: - Return patient to [facility] for ongoing care. - Clear liquid diet. - Continue present medications. - Repeat upper endoscopy PRN for retreatment. Chauncey Francisco DO 12/05/2023 4:06:17 PM This report has been signed electronically. Note Initiated On: 12/05/2023 2:46 PM Number of Addenda: 0 I attest to the content of the Intraoperative Record and orders documented therein, exceptions below {[id number]}
--- NOTE | 2023-12-05 18:00 | Anesthesiology Progress Note ---
Date of Service December 05, 2023 Anesthesia Post Procedure Vital Signs Vital Signs: Temp Pulse Pulse Resp BP BP Pulse Ox 12/05/23 16:41 37.0 C 93 H 18 154/73 H 97 12/05/23 16:25 92 H 16 168/74 H 97 12/05/23 16:25 92 H 16 168/74 H 97 12/05/23 16:10 96 H 16 161/72 H 97 12/05/23 15:55 108 H 14 161/77 H 100 12/05/23 15:06 36.7 C 88 16 155/78 H 98 12/05/23 15:02 36.7 C 88 16 155/78 H 98 12/05/23 14:26 88 18 157/76 H 97 12/05/23 14:11 36.5 C 86 18 152/73 H 94 12/05/23 14:11 36.5 C 83 18 147/69 H 96 12/05/23 14:05 83 18 147/69 H 96 12/05/23 14:00 89 12/05/23 13:47 86 18 151/70 H 96 12/05/23 12:47 83 18 146/71 H 100 12/05/23 12:17 83 18 151/74 H 98 12/05/23 12:02 82 17 148/71 H 98 12/05/23 11:55 36.8 C 84 18 150/72 H 97 12/05/23 11:40 36.7 C 82 18 149/69 H 98 12/05/23 07:04 36.5 C 83 19 137/71 95 12/05/23 07:00 12/05/23 06:00 81 12/05/23 02:37 36.6 C 76 18 106/62 97 12/04/23 22:36 36.7 C 78 18 125/68 98 12/04/23 21:59 78 12/04/23 20:23 79 12/04/23 19:53 12/04/23 19:32 36.6 C 81 18 133/72 96 12/04/23 19:00 36.6 C 81 18 133/72 96 12/04/23 18:45 36.7 C 82 19 129/70 96 O2 Del Method O2 Flow Rate 12/05/23 16:41 Room Air 12/05/23 16:25 12/05/23 16:25 Room Air 12/05/23 16:10 Room Air 12/05/23 15:55 Oxymask 10 12/05/23 15:06 Room Air 12/05/23 15:02 12/05/23 14:26 12/05/23 14:11 12/05/23 14:11 12/05/23 14:05 12/05/23 14:00 12/05/23 13:47 12/05/23 12:47 12/05/23 12:17 12/05/23 12:02 12/05/23 11:55 12/05/23 11:40 12/05/23 07:04 Room Air 12/05/23 07:00 Room Air 12/05/23 06:00 12/05/23 02:37 Room Air 12/04/23 22:36 Room Air 12/04/23 21:59 12/04/23 20:23 12/04/23 19:53 Room Air 12/04/23 19:32 Room Air 12/04/23 19:00 Room Air 12/04/23 18:45 Room Air Transfer of Care Handoff Completed per policy Notes Mental Status: alert / awake / arousable and participated in evaluation Patient Amnestic to Procedure: Yes Nausea / Vomiting: adequately controlled Pain: adequately controlled Airway Patency, RR, SpO2: stable & adequate BP & HR: stable & adequate Hydration State: stable & adequate Anesthetic Complications: no major complications apparent and Pt Satisfied with anesthetic care
[2023-12-06 06:27] LABS: Basophils # (auto) 0.04 K/uL (0.00-0.20); Basophils % (auto) 0.4 %; Eosinophils # (auto) 0.15 K/uL (0.00-0.50); Eosinophils % (auto) 1.5 %; Hematocrit (blood only) 32.9 % (37.0-47.0); Lymphocytes # (auto) 1.37 K/uL (1.20-3.40); Lymphocytes % (auto) 13.3 %; Mean Corpuscular Hemoglobin 26.4 pg (25.0-34.0); Mean Corpuscular Hgb Conc 33.4 g/dL (32.0-36.0); Mean Corpuscular Volume 78.9 fL (80.0-100.0); Mean Platelet Volume 8.4 fL (9.4-12.4); Monocytes # (auto) 0.62 K/uL (0.11-0.59); Neutrophils # (auto) 8.04 K/uL (1.40-6.50); Neutrophils % (auto) 77.8 %; Platelet Count 257 K/uL (130-400); RDW Coefficient of Variation 17.4 % (11.5-14.5); Red Blood Count 4.17 M/uL (4.20-5.40); White Blood Count 10.32 K/ul (4.8-10.8)
[2023-12-06 06:42] LABS: BUN Creatinine Ratio 4.3 (10-20); Calcium 7.9 mg/dl (8.6-10.3); Creatinine Clr Calc Pharmacy 99.9 ml/min; Est GFR (African American) 114.4 ml/min; Est GFR (Non-African American) 98.7 ml/min; Potassium 3.2 mmol/L (3.5-5.1)
[2023-12-06] MEDS: SODIUM CHLORIDE 0.9% 500 ML IV SCH (09:39)
[2023-12-06] MEDS: LIDOCAINE 2% 2 ML VIAL/AMP(20MG/ML) INFIL ONE (09:40)
[2023-12-06] MEDS: PROPOFOL IV EMULSION 10 MG/ML 20 ML VIAL IV ONE (09:41)
--- NOTE | 2023-12-06 11:46 | Gastroenterology Progress Note ---
Date of Service December 06, 2023 Assessment & Plan (1) Duodenal arteriovenous malformation: Plan: -Will need to continue Protonix 40 mg BID on discharge -Currently tolerating a clear liquid diet, can advance as tolerated -Continue to monitor H/H -Patient should remain off of Xarelto for a minimum of 5 days, but do note she is at significant risk of re-bleeding. Admission and Anticipated Discharge Date Admission Date: December 04, 2023 Supervising Physician Co-Signing Physician Notes Agree with SUZIE Alvarez as above Examined patient and agree with above Abd: Soft, NT, ND, +BS Continue current therapy and supportive care Subjective Patient is a 73 yo female s/p EGD for bleeding AVMs. She denies hematemesis or melena at present. H/H 11.0/32.9. She is tolerating a liquid diet and is on IV Protonix gtt at present. She denies abdominal pain or any further complaints. Review of Systems Constitutional: no fever and no chills Respiratory: no cough and no dyspnea Cardiovascular: no chest pain Gastrointestinal: no abdominal pain, no nausea, no vomiting and no melena Psychiatric: no problem reported Physical Exam Constitutional: no acute distress Respiratory: normal respiratory effort Cardiovascular: Rate/Rhythm: regular rate Results & Data Results & Data Vital Signs (Past 12 Hours) Vital Signs Temp Pulse Pulse Resp BP Pulse Ox O2 Del Method 12/06/23 08:03 Room Air 12/06/23 07:30 36.8 C 70 18 158/87 H 93 Room Air 12/06/23 06:00 88 12/06/23 03:06 36.7 C 88 17 163/81 H 96 Room Air PG Care Time/CCT Total # of Minutes Spent Total Time Spent with Patient: Total time spent is greater than 50% in coordination of care (as documented) at patient's floor/unit and/or counseling patient: Coding Level of Care Code 65802 SUB INP/OBS CARE 3/50MIN Diagnoses Duodenal arteriovenous malformation K31.819
[2023-12-06] MEDS: POTASSIUM CHLORIDE CRTAB 20 MEQ TABCR PO STA (14:35)
--- NOTE | 2023-12-06 15:18 | Hospitalist Progress Note ---
Date of Service December 06, 2023 Assessment & Plan (1) Acute blood loss anemia: Plan: Secondary to GI bleed with melanotic stool - GI Consulted GI, patient has previously been supposed to have EGD but couldn't due to thrombocytopenia, today platelet count of 266. - H&H was reported <7 at facility, here is >8. hemmocult positive. -Protonix IV ordered - VSS - Hold xarelto, last dose 11/29 (was recently transitioned from coumadin. 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 Monitor PT/INR. - Previously was on coumadin and then switched to Xarelto, appears last dose was on 11/30/23 per med rec on paper chart from facility - Can consider low dose heparin gtt if next H&H is stable at 1600 - due to GI bleeding may require holding anticoagulation - Appreciate GI recs Rate is controlled Has been on Xarelto On hold for acute GI bleed Will try to restart if EGD is normal and there is no evidence of ongoing bleeding (4) Gangrene of hand: Plan: Hx acrocyanosis of all 4 extremities as well as the tip of her nose 07/26-07/27 - S/p multiple amputations including recent Left foot transmetatarsals (11/01/23) and R hand 11/12/23) -Right anterior foot -Significant dry gangrenous change with black eschar formation left anterior hand and fingers likely glove -Denies any significant symptoms (5) HTN (hypertension): Plan: Blood pressure remains reasonable and seems to be upper side of normal (6) Dyslipidemia: (7) Type 2 diabetes mellitus: Plan Hx of recurrent UTI - Check urine culture, Appears patient has recently completed a 1 week course of Augmentin which was started on 11/24, would have finished 2 days ago. Possibly worsening diarrhea. - Cont florastor - Check C diff with recent abx for recurrent UTI, stool cultures ordered- negative so far Nonocclusive thrombus in the right IJ: - Right IJ catheter has been discontinued. Patient on xarelto for A-fib. DM II - A1c of 6.4 in September 2023. Hold metformin. Sliding scale insulin. Dyslipidemia - Continue home statin HTN - Chronic, stable, medications as above Mood disorder -Continue home Effexor DVT ppx: teds, scds Lines: 2 large-bore PIV FEN/GI: Allow clears, n.p.o. after midnight in case needs for EGD CODE: Full code [facility], likely to remain in the hospital x 2 days Admission and Anticipated Discharge Date Admission Date: December 04, 2023 Subjective 12/05/2023 The patient was seen and examined in telemetry unit She has been complaining of melanotic stool Remain generally weak and lethargic but denies any other significant symptoms No chest pain, palpitation or shortness of breath at rest No abdominal pain, nausea and or vomiting Denies any pain in the extremities 12/06/2023 Patient was seen and examined in telemetry unit She is 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 Has been feeling much better following blood transfusion Denies any significant symptoms Review of Systems Review of Systems: All systems reviewed and are unremarkable except as noted below Physical Exam Physical Exam: Lying in bed without any acute distress Constitutional: + ill appearing and average body habitus Eyes: PERRL, conjunctivae normal, anicteric sclerae ENMT: external ear and nose normal, oropharynx normal Neck: trachea midline, no thyromegaly Respiratory: no respiratory distress Auscultation: lungs clear to auscultation bilaterally Cardiovascular: Rate/Rhythm: regular rate and regular rhythm; not tachycardic Heart Sounds: normal S1 and normal S2; no murmur Extremities: no edema Gastrointestinal (Abdomen): Inspection/Auscultation: normal bowel sounds; abdomen not distended Percussion/Palpation: abdomen soft; abdomen nontender Musculoskeletal: Extremities: + hand abnormality (Amputation of the right hand, black eschar likely cast on the left hand); + extremities abnormal to inspection (Amputation of the right hand, right and left distal feet,) Neurologic: normal touch/pain/proprioception and moves all extremities Lymphatic: no cervical or axillary lymphadenopathy Results & Data Results & Data Vital Signs (Past 12 Hours) Vital Signs Temp Pulse Pulse Resp BP Pulse Ox O2 Del Method 12/06/23 11:30 36.6 C 88 20 148/72 H 96 Room Air 12/06/23 08:03 Room Air 12/06/23 07:30 36.8 C 70 18 158/87 H 93 Room Air 12/06/23 06:00 88 Laboratory Results Short CBC 12/06/23 Range/Units 05:48 WBC 10.32 (4.8-10.8) K/ul Hgb 11.0 L (12.0-16.0) g/dl Hct 32.9 L (37.0-47.0) % Plt Count 257 (130-400) K/uL BMP 12/06/23 05:48 Sodium 137 Potassium 3.2 L Chloride 106 Carbon Dioxide 23 BUN 2 L Creatinine 0.46 L Glucose 130 H Calcium 7.9 L Medications Administered Current Inpatient Medications Acetaminophen (Acetaminophen 325 Mg Tab) 650 mg PO Q6H PRN PRN Reason: FEVER >100/PAIN Stop: 01/03/24 15:56 Alendronate Sodium (Alendronate Sodium 70 Mg Tab) 70 mg PO Mo@0630 NILDA Stop: 01/08/24 06:29 Atorvastatin Calcium (Atorvastatin 40 Mg Tab) 40 mg PO HS NILDA Stop: 01/03/24 20:59 Last Admin: 12/05/23 21:04 Dose: 40 mg Bisacodyl (Bisacodyl 10 Mg Supp) 10 mg HI UD PRN PRN Reason: Constipation Stop: 01/03/24 15:56 Calcium/Vitamin D (Calcium 600mg + Vit D 400 Iu Tab) 1 tab PO QAM NILDA Stop: 01/04/24 08:59 Last Admin: 12/06/23 09:44 Dose: 1 tab Cyanocobalamin (Cyanocobalamin (B-12) 500 Mcg Tablet) 1,000 mcg PO QAM NILDA Stop: 01/04/24 08:59 Last Admin: 12/06/23 09:44 Dose: 1,000 mcg Dextrose (Dextrose 50% 50 Ml Syringe) 25 - 50 ml IV UD PRN; Protocol PRN Reason: Hypoglycemia Protocol Stop: 01/03/24 15:56 Digoxin (Digoxin 0.125 Mg Tab) 0.125 mg PO HS [facility] Stop: 01/03/24 20:59 Last Admin: 12/05/23 21:05 Dose: 0.125 mg Diltiazem HCl (Diltiazem Hcl 180 Mg Capcr) 180 mg PO QAM [facility] Stop: 01/04/24 08:59 Last Admin: 12/06/23 09:44 Dose: 180 mg Glucagon (Glucagon For Inj 1 Mg Vial) 1 mg SQ UD PRN; Protocol PRN Reason: Hypoglycemia Protocol Stop: 01/03/24 15:56 Glucose (Glucose 40% Gel 15 Gm Tube) 15 - 30 gm PO UD PRN; Protocol PRN Reason: Hypoglycemia Protocol Stop: 01/03/24 15:56 Glucose (Glucose 10 Tab/Tube) 4 - 8 tab PO UD PRN; Protocol PRN Reason: Hypoglycemia Treatment Stop: 01/03/24 15:56 Pantoprazole Sodium 40 mg/ (Dextrose) 100 mls @ 20 mls/hr IV Q5H NILDA Stop: 01/03/24 11:59 Last Admin: 12/06/23 12:24 Dose: 8 mg/hr, 20 mls/hr Insulin Aspart (Insulin Aspart Per Unit Charge) 0 units SC ACHS [facility] Stop: 01/03/24 16:29 Last Admin: 12/06/23 13:35 Dose: 6 units Magnesium Oxide (Magnesium Oxide 400 Mg Tab) 400 mg PO QAM [facility] Stop: 01/04/24 08:59 Last Admin: 12/06/23 09:44 Dose: 400 mg Melatonin (Melatonin 3 Mg Tab) 3 mg PO HS PRN PRN Reason: sleep Stop: 01/03/24 15:56 Miscellaneous (Carbohydrates For Hypoglycemia ) 15 - 30 gm PO UD PRN PRN Reason: Hypoglycemia Protocol Stop: 01/03/24 15:56 Ondansetron HCl (Ondansetron Inj 2 Mg/Ml 2 Ml Vial) 4 mg IV Q6H PRN PRN Reason: Nausea Stop: 01/03/24 15:56 Ondansetron HCl (Ondansetron 4 Mg Od Tab) 4 mg PO Q8H PRN PRN Reason: Nausea Stop: 01/03/24 16:02 Polyethylene Glycol (Polyethylene (Miralax) 17 Gm Pack) 17 gm PO DAILY PRN PRN Reason: Constipation Stop: 01/03/24 15:56 Promethazine HCl (Promethazine Hcl Inj 25 Mg/Ml 1 Ml Vial) 25 mg IM Q6 PRN PRN Reason: Nausea And Vomiting Stop: 12/06/23 23:59 Saccharomyces Boulardii (Saccharomyces Boulardii 250 Mg Cap) 250 mg PO QAM [facility] Stop: 01/04/24 08:59 Last Admin: 12/06/23 09:44 Dose: 250 mg Tamsulosin HCl (Tamsulosin Hcl 0.4 Mg Cap) 0.4 mg PO [facility] Stop: 01/03/24 20:59 Last Admin: 12/05/23 21:05 Dose: 0.4 mg Venlafaxine HCl (Venlafaxine Hcl Xr 150 Mg Cap[facility]r) [facility] [place]: 01/04/24 08:59 Last Admin: 12/06/23 09:44 Dose: 150 mg (5) HTN (hypertension) Hypertension type: primary hypertension Qualified Code(s): I10 - Essential (primary) hypertension (7) Type 2 diabetes mellitus Diabetes mellitus long lines operator insulin use: without long lines operator use Diabetes mellitus complication status: with other specified complication Qualified Code(s): E11.69 - Type 2 diabetes mellitus with other specified complication
[2023-12-06] MEDS: PANTOprazole 40 MG TAB PO SCH (21:34)
[2023-12-07 07:44] LABS: Basophils # (auto) 0.02 K/uL (0.00-0.20); Basophils % (auto) 0.2 %; Eosinophils # (auto) 0.12 K/uL (0.00-0.50); Eosinophils % (auto) 1.2 %; Hematocrit (blood only) 33.9 % (37.0-47.0); Hemoglobin 11.2 g/dl (12.0-16.0); Immature Granulocytes # (auto) 0.08 K/uL (0.01-0.20); Immature Granulocytes % (auto) 0.8 %; Lymphocytes # (auto) 1.46 K/uL (1.20-3.40); Lymphocytes % (auto) 14.7 %; Mean Corpuscular Hemoglobin 26.3 pg (25.0-34.0); Mean Corpuscular Volume 79.6 fL (80.0-100.0); Mean Platelet Volume 8.6 fL (9.4-12.4); Monocytes # (auto) 0.71 K/uL (0.11-0.59); Monocytes % (auto) 7.2 %; Neutrophils # (auto) 7.53 K/uL (1.40-6.50); Neutrophils % (auto) 75.9 %; Platelet Count 268 K/uL (130-400); RDW Coefficient of Variation 18.1 % (11.5-14.5); Red Blood Count 4.26 M/uL (4.20-5.40); White Blood Count 9.92 K/ul (4.8-10.8)
[2023-12-07 08:05] LABS: BUN Creatinine Ratio 5.4 (10-20); Calcium 8.4 mg/dl (8.6-10.3); Creatinine Clr Calc Pharmacy 81.8 ml/min; Est GFR (African American) 107.2 ml/min; Est GFR (Non-African American) 92.5 ml/min; Potassium 3.7 mmol/L (3.5-5.1)
--- NOTE | 2023-12-07 13:11 | Hospitalist Progress Note ---
Date of Service December 07, 2023 Assessment & Plan (1) Acute blood loss anemia: Plan: Secondary to GI bleed with melanotic stool - GI Consulted GI, patient has previously been supposed to have EGD but couldn't due to thrombocytopenia, today platelet count of 266. - H&H was reported <7 at facility, here is >8. hemmocult positive. -Protonix IV ordered - VSS - Hold xarelto, last dose 11/29 (was recently transitioned from coumadin. 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 Monitor PT/INR. - Previously was on coumadin and then switched to Xarelto, appears last dose was on 11/30/23 per med rec on paper chart from facility - Can consider low dose heparin gtt if next H&H is stable at 1600 - due to GI bleeding may require holding anticoagulation - Appreciate GI recs Rate is controlled Has been on Xarelto On hold for acute GI bleed Will try to restart if EGD is normal and there is no evidence of ongoing bleeding Rate is controlled-Xarelto will be restarted following 5 days of status post endoscopy-12/05/2023 (4) Gangrene of hand: Plan: Hx acrocyanosis of all 4 extremities as well as the tip of her nose 07/26-07/27 - S/p multiple amputations including recent Left foot transmetatarsals (11/01/23) and R hand 11/12/23) -Right anterior foot -Significant dry gangrenous change with black eschar formation left anterior hand and fingers likely glove -Denies any significant symptoms -Advised to have follow-up appointment with orthopedic surgeon (5) HTN (hypertension): Plan: Blood pressure remains reasonable and seems to be upper side of normal (6) Dyslipidemia: (7) Type 2 diabetes mellitus: Plan Hx of recurrent UTI - Check urine culture, Appears patient has recently completed a 1 week course of Augmentin which was started on 11/24, would have finished 2 days ago. Possibly worsening diarrhea. - Cont florastor - Check C diff with recent abx for recurrent UTI, stool cultures ordered- negative so far Nonocclusive thrombus in the right IJ: - Right IJ catheter has been discontinued. Patient on xarelto for A-fib. DM II - A1c of 6.4 in September 2023. Hold metformin. Sliding scale insulin. Dyslipidemia - Continue home statin HTN - Chronic, stable, medications as above Mood disorder -Continue home Effexor DVT ppx: teds, scds Lines: 2 large-bore PIV FEN/GI: Allow clears, n.p.o. after midnight in case needs for EGD CODE: Full code [facility]: [facility], likely to remain in the hospital x 2 days Admission and Anticipated Discharge Date Admission Date: December 04, 2023 Subjective 12/05/2023 The patient was seen and examined in telemetry unit She has been complaining of melanotic stool Remain generally weak and lethargic but denies any other significant symptoms No chest pain, palpitation or shortness of breath at rest No abdominal pain, nausea and or vomiting Denies any pain in the extremities 12/06/2023 Patient was seen and examined in telemetry unit She is status post EGD 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 Has been feeling much better following blood transfusion Denies any significant symptoms 12/07/2023 The patient was seen and examined in telemetry unit She has been feeling much better Denies any epigastric discomfort and denies any other significant symptoms She is ready to go back to [facility] Review of Systems Review of Systems: All systems reviewed and are unremarkable except as noted below Physical Exam Physical Exam: Lying in bed without any acute distress Constitutional: + ill appearing and average body habitus Eyes: PERRL, conjunctivae normal, anicteric sclerae ENMT: external ear and nose normal, oropharynx normal Neck: trachea midline, no thyromegaly Respiratory: no respiratory distress Auscultation: lungs clear to auscultation bilaterally Cardiovascular: Rate/Rhythm: regular rate and regular rhythm; not tachycardic Heart Sounds: normal S1 and normal S2; no murmur Extremities: no edema Gastrointestinal (Abdomen): Inspection/Auscultation: normal bowel sounds; abdomen not distended Percussion/Palpation: abdomen soft; abdomen nontender Musculoskeletal: Extremities: + hand abnormality (Amputation of the right hand, black eschar likely cast on the left hand); + extremities abnormal to inspection (Amputation of the right hand, right and left distal feet,) Neurologic: normal touch/pain/proprioception and moves all extremities Lymphatic: no cervical or axillary lymphadenopathy Results & Data Results & Data Vital Signs (Past 12 Hours) Vital Signs Temp Pulse Pulse Pulse Resp BP Pulse Ox 12/07/23 11:56 81 12/07/23 11:00 36.6 C 86 74 18 149/69 H 97 12/07/23 08:02 36.5 C 82 16 154/75 H 98 12/07/23 03:52 36.5 C 86 16 135/78 97 O2 Del Method 12/07/23 11:56 12/07/23 11:00 Room Air 12/07/23 08:02 Room Air 12/07/23 03:52 Room Air Laboratory Results Short CBC 12/07/23 Range/Units 06:48 WBC 9.92 (4.8-10.8) K/ul Hgb 11.2 L (12.0-16.0) g/dl Hct 33.9 L (37.0-47.0) % Plt Count 268 (130-400) K/uL BMP 12/07/23 06:48 Sodium 137 Potassium 3.7 Chloride 106 Carbon Dioxide 24 BUN 3 L Creatinine 0.56 L Glucose 121 H Calcium 8.4 L Medications Administered Current Inpatient Medications Acetaminophen (Acetaminophen 325 Mg Tab) 650 mg PO Q6H PRN PRN Reason: FEVER >100/PAIN Stop: 01/03/24 15:56 Alendronate Sodium (Alendronate Sodium 70 Mg Tab) 70 mg PO Mo@0630 NILDA Stop: 01/08/24 06:29 Atorvastatin Calcium (Atorvastatin 40 Mg Tab) 40 mg PO HS [facility]IL[facility] Stop: 01/03/24 20:59 Last Admin: 12/06/23 21:34 Dose: 40 mg Bisacodyl (Bisacodyl 10 Mg Supp) 10 mg CO UD PRN PRN Reason: Constipation Stop: 01/03/24 15:56 Calcium/Vitamin D (Calcium 600mg + Vit D 400 Iu Tab) 1 tab PO QAM [facility] Stop: 01/04/24 08:59 Last Admin: 12/07/23 08:08 Dose: 1 tab Cyanocobalamin (Cyanocobalamin (B-12) 500 Mcg Tablet) 1,000 mcg PO QAM [facility] Stop: 01/04/24 08:59 Last Admin: 12/07/23 08:08 Dose: 1,000 mcg Dextrose (Dextrose 50% 50 Ml Syringe) 25 - 50 ml IV UD PRN; Protocol PRN Reason: Hypoglycemia Protocol Stop: 01/03/24 15:56 Digoxin (Digoxin 0.125 Mg Tab) 0.125 mg PO HS [facility] Stop: 01/03/24 20:59 Last Admin: 12/06/23 21:34 Dose: 0.125 mg Diltiazem HCl (Diltiazem Hcl 180 Mg Capcr) 180 mg PO QAM [facility] Stop: 01/04/24 08:59 Last Admin: 12/07/23 08:08 Dose: 180 mg Glucagon (Glucagon For Inj 1 Mg Vial) 1 mg SQ UD PRN; Protocol PRN Reason: Hypoglycemia Protocol Stop: 01/03/24 15:56 Glucose (Glucose 40% Gel 15 Gm Tube) 15 - 30 gm PO UD PRN; Protocol PRN Reason: Hypoglycemia Protocol Stop: 01/03/24 15:56 Glucose (Glucose 10 Tab/Tube) 4 - 8 tab PO UD PRN; Protocol PRN Reason: Hypoglycemia Treatment Stop: 01/03/24 15:56 Insulin Aspart (Insulin Aspart Per Unit Charge) 0 units SC ACHS [facility] Stop: 01/03/24 16:29 Last Admin: 12/07/23 12:54 Dose: 5 units Magnesium Oxide (Magnesium Oxide 400 Mg Tab) 400 mg PO QAM [facility] Stop: 01/04/24 08:59 Last Admin: 12/07/23 08:08 Dose: 400 mg Melatonin (Melatonin 3 Mg Tab) 3 mg PO HS PRN PRN Reason: sleep Stop: 01/03/24 15:56 Miscellaneous (Carbohydrates For Hypoglycemia ) 15 - 30 gm PO UD PRN PRN Reason: Hypoglycemia Protocol Stop: 01/03/24 15:56 Ondansetron HCl (Ondansetron Inj 2 Mg/Ml 2 Ml Vial) 4 mg IV Q6H PRN PRN Reason: Nausea Stop: 01/03/24 15:56 Ondansetron HCl (Ondansetron 4 Mg Od Tab) 4 mg PO Q8H PRN PRN Reason: Nausea Stop: 01/03/24 16:02 Pantoprazole Sodium (Pantoprazole 40 Mg Tab) 40 mg PO BID [facility] Stop: 01/05/24 20:59 Last Admin: 12/07/23 08:08 Dose: 40 mg Polyethylene Glycol (Polyethylene (Miralax) 17 Gm Pack) 17 gm PO DAILY PRN PRN Reason: Constipation Stop: 01/03/24 15:56 Saccharomyces Boulardii (Saccharomyces Boulardii 250 Mg Cap) 250 mg PO QAM [facility] Stop: 01/04/24 08:59 Last Admin: 12/07/23 08:08 Dose: 250 mg Tamsulosin HCl (Tamsulosin Hcl 0.4 Mg Cap) 0.4 mg PO HS [facility] Stop: 01/03/24 20:59 Last Admin: 12/06/23 21:35 Dose: 0.4 mg Venlafaxine HCl (Venlafaxine Hcl Xr 150 Mg Capxr) 150 mg PO QAM [facility] Stop: 01/04/24 08:59 Last Admin: 12/07/23 08:08 Dose: 150 mg (5) HTN (hypertension) Hypertension type: primary hypertension Qualified Code(s): I10 - Essential (primary) hypertension (7) Type 2 diabetes mellitus Diabetes mellitus long wall shear operator insulin use: without fci use Diabetes mellitus complication status: with other specified complication Qualified Code(s): E11.69 - Type 2 diabetes mellitus with other specified complication
[2023-12-08 06:59] LABS: Basophils # (auto) 0.03 K/uL (0.00-0.20); Basophils % (auto) 0.3 %; Eosinophils # (auto) 0.15 K/uL (0.00-0.50); Eosinophils % (auto) 1.5 %; Hematocrit (blood only) 31.9 % (37.0-47.0); Hemoglobin 10.2 g/dl (12.0-16.0); Immature Granulocytes # (auto) 0.08 K/uL (0.01-0.20); Immature Granulocytes % (auto) 0.8 %; Lymphocytes # (auto) 1.67 K/uL (1.20-3.40); Lymphocytes % (auto) 16.8 %; Mean Corpuscular Hemoglobin 25.9 pg (25.0-34.0); Mean Platelet Volume 8.6 fL (9.4-12.4); Monocytes # (auto) 0.71 K/uL (0.11-0.59); Monocytes % (auto) 7.1 %; Neutrophils # (auto) 7.32 K/uL (1.40-6.50); Neutrophils % (auto) 73.5 %; Platelet Count 291 K/uL (130-400); RDW Coefficient of Variation 18.1 % (11.5-14.5); RDW Standard Deviation 52.6 fL (36.4-46.3); Red Blood Count 3.94 M/uL (4.20-5.40); White Blood Count 9.96 K/ul (4.8-10.8)
[2023-12-08 07:07] LABS: BUN Creatinine Ratio 10.2 (10-20); Calcium 8.8 mg/dl (8.6-10.3); Creatinine Clr Calc Pharmacy 77.9 ml/min; Est GFR (African American) 105.4 ml/min; Est GFR (Non-African American) 90.9 ml/min; Potassium 3.7 mmol/L (3.5-5.1)
--- NOTE | 2023-12-08 11:03 | Hospitalist Progress Note ---
Date of Service December 08, 2023 Assessment & Plan (1) Acute blood loss anemia: Plan: Secondary to GI bleed with melanotic stool - GI Consulted GI, patient has previously been supposed to have EGD but couldn't due to thrombocytopenia, today platelet count of 266. - H&H was reported <7 at facility, here is >8. hemmocult positive. -Protonix IV ordered - VSS - Hold xarelto, last dose 11/29 (was recently transitioned from coumadin. 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 with bipolar cautery Has been on Protonix twice daily and will continue even on discharge Clinically much better and hemoglobin is maintaining at 11 following blood transfusion Will restart Xarelto after about 5 days Hemoglobin remains stable and without any acute symptoms Can be discharged to [facility] today She has been stable and her hemoglobin seems to be stable too She will be discharged this afternoon if the transport is available to go to [facility] and the bed hold is there (2) Melanotic stools: (3) Atrial fibrillation with rapid ventricular response: Plan: Chronic Afib (diagnosed Jul 2023) - Continue with metoprolol, diltiazem, digoxin. Monitor PT/INR. - Previously was on coumadin and then switched to Xarelto, appears last dose was on 11/30/23 per med rec on paper chart from facility - Can consider low dose heparin gtt if next H&H is stable at 1600 - due to GI bleeding may require holding anticoagulation - Appreciate GI recs Rate is controlled Has been on Xarelto On hold for acute GI bleed Will try to restart if EGD is normal and there is no evidence of ongoing bleeding Rate is controlled-Xarelto will be restarted following 5 days of status post endoscopy-12/05/2023 Denies any cardiac symptom Will start Xarelto from tomorrow (4) Gangrene of hand: Plan: Hx acrocyanosis of all 4 extremities as well as the tip of her nose 07/26-07/27 - S/p multiple amputations including recent Left foot transmetatarsals (11/01/23) and R hand 11/12/23) -Right anterior foot -Significant dry gangrenous change with black eschar formation left anterior hand and fingers likely glove -Denies any significant symptoms -Advised to have follow-up appointment with orthopedic surgeon (5) HTN (hypertension): Plan: Blood pressure remains reasonable and seems to be upper side of normal (6) Dyslipidemia: (7) Type 2 diabetes mellitus: Plan Hx of recurrent UTI - Check urine culture, Appears patient has recently completed a 1 week course of Augmentin which was started on 11/24, would have finished 2 days ago. Possibly worsening diarrhea. - Cont florastor - Check C diff with recent abx for recurrent UTI, stool cultures ordered- negative so far Nonocclusive thrombus in the right IJ: - Right IJ catheter has been discontinued. Patient on xarelto for A-fib. DM II - A1c of 6.4 in September 2023. Hold metformin. Sliding scale insulin. Dyslipidemia - Continue home statin HTN - Chronic, stable, medications as above Mood disorder -Continue home Effexor DVT ppx: teds, scds Lines: 2 large-bore PIV FEN/GI: Allow clears, n.p.o. after midnight in case needs for EGD CODE: Full code [facility]po: [facility], likely to remain in the hospital x 2 days Admission and Anticipated Discharge Date Admission Date: December 04, 2023 Subjective 12/05/2023 The patient was seen and examined in telemetry unit She has been complaining of melanotic stool Remain generally weak and lethargic but denies any other significant symptoms No chest pain, palpitation or shortness of breath at rest No abdominal pain, nausea and or vomiting Denies any pain in the extremities 12/06/2023 Patient was seen and examined in telemetry unit She is 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 Has been feeling much better following blood transfusion Denies any significant symptoms 12/07/2023 The patient was seen and examined in telemetry unit She has been feeling much better Denies any epigastric discomfort and denies any other significant symptoms She is ready to go back to [facility] 12/08/2023 The patient was seen and examined in telemetry unit She has been feeling much better and denies any significant symptoms Her hemoglobin remains stable She will be discharged to [facility] this afternoon Review of Systems Review of Systems: All systems reviewed and are unremarkable except as noted below Physical Exam Physical Exam: Lying in bed without any acute distress Constitutional: + ill appearing and average body habitus Eyes: PERRL, conjunctivae normal, anicteric sclerae ENMT: external ear and nose normal, oropharynx normal Neck: trachea midline, no thyromegaly Respiratory: no respiratory distress Auscultation: lungs clear to auscultation bilaterally Cardiovascular: Rate/Rhythm: regular rate and regular rhythm; not tachycardic Heart Sounds: normal S1 and normal S2; no murmur Extremities: no edema Gastrointestinal (Abdomen): Inspection/Auscultation: normal bowel sounds; abdomen not distended Percussion/Palpation: abdomen soft; abdomen nontender Musculoskeletal: Extremities: + hand abnormality (Amputation of the right hand, black eschar likely cast on the left hand); + extremities abnormal to inspection (Amputation of the right hand, right and left distal feet,) Neurologic: normal touch/pain/proprioception and moves all extremities Lymphatic: no cervical or axillary lymphadenopathy Results & Data Results & Data Vital Signs (Past 12 Hours) Vital Signs Temp Pulse Pulse Pulse Resp BP Pulse Ox 12/08/23 09:46 12/08/23 09:46 12/08/23 08:00 36.6 C 87 77 18 139/63 96 12/08/23 07:07 78 12/08/23 02:54 36.5 C 80 17 144/77 H 97 O2 Del Method O2 Del Method 12/08/23 09:46 Room Air 12/08/23 09:46 Room Air 12/08/23 08:00 Room Air 12/08/23 07:07 12/08/23 02:54 Room Air Laboratory Results Short CBC 12/08/23 Range/Units 06:06 WBC 9.96 (4.8-10.8) K/ul Hgb 10.2 L (12.0-16.0) g/dl Hct 31.9 L (37.0-47.0) % Plt Count 291 (130-400) K/uL BMP 12/08/23 06:06 Sodium 137 Potassium 3.7 Chloride 104 Carbon Dioxide 27 BUN 6 Creatinine 0.59 L Glucose 124 H Calcium 8.8 Medications Administered Current Inpatient Medications Acetaminophen (Acetaminophen 325 Mg Tab) 650 mg PO Q6H PRN PRN Reason: FEVER >100/PAIN Stop: 01/03/24 15:56 Alendronate Sodium (Alendronate Sodium 70 Mg Tab) 70 mg PO Mo@0630 [facility] Stop: 01/08/24 06:29 Atorvastatin Calcium (Atorvastatin 40 Mg Tab) 40 mg PO HS [facility] Stop: 01/03/24 20:59 Last Admin: 12/07/23 21:01 Dose: 40 mg Bisacodyl (Bisacodyl 10 Mg Supp) [address] UD PRN PRN Reason: Constipation Stop: 01/03/24 15:56 Calcium/Vitamin D (Calcium 600mg + Vit D 400 Iu Tab) [facility] Stop: 01/04/24 08:59 Last Admin: 12/08/23 08:23 Dose: 1 tab Cyanocobalamin (Cyanocobalamin (B-12) 500 Mcg Tablet) 1,000 mcg [facility] Stop: 01/04/24 08:59 Last Admin: 12/08/23 08:22 Dose: 1,000 mcg Dextrose (Dextrose 50% 50 Ml Syringe) 25 - 50 ml IV UD PRN; Protocol PRN Reason: Hypoglycemia Protocol Stop: 01/03/24 15:56 Digoxin (Digoxin 0.125 Mg Tab) 0.125 mg PO [facility] Stop: 01/03/24 20:59 Last Admin: 12/07/23 21:01 Dose: 0.125 mg Diltiazem HCl (Diltiazem Hcl 180 Mg Capcr) 180 [facility] Stop: 01/04/24 08:59 Last Admin: 12/08/23 08:24 Dose: 180 mg Glucagon (Glucagon For Inj 1 Mg Vial) 1 mg SQ UD PRN; Protocol PRN Reason: Hypoglycemia Protocol Stop: 01/03/24 15:56 Glucose (Glucose 40% Gel 15 Gm Tube) 15 - 30 gm PO UD PRN; Protocol PRN Reason: Hypoglycemia Protocol Stop: 01/03/24 15:56 Glucose (Glucose 10 Tab/Tube) 4 - 8 tab PO UD PRN; Protocol PRN Reason: Hypoglycemia Treatment Stop: 01/03/24 15:56 Insulin Aspart (Insulin Aspart Per Unit Charge) 0 units SC [facility] Stop: 01/03/24 16:29 Last Admin: 12/08/23 08:25 Dose: 1 units Magnesium Oxide (Magnesium Oxide 400 Mg Tab) 400 [facility] Stop: 01/04/24 08:59 Last Admin: 12/08/23 08:23 Dose: 400 mg Melatonin (Melatonin 3 Mg Tab) 3 mg PO HS PRN PRN Reason: sleep Stop: 01/03/24 15:56 Miscellaneous (Carbohydrates For Hypoglycemia ) 15 - 30 gm PO UD PRN PRN Reason: Hypoglycemia Protocol Stop: 01/03/24 15:56 Ondansetron HCl (Ondansetron Inj 2 Mg/Ml 2 Ml Vial) 4 mg IV Q6H PRN PRN Reason: Nausea Stop: 01/03/24 15:56 Ondansetron HCl (Ondansetron 4 Mg Od Tab) 4 mg PO Q8H PRN PRN Reason: Nausea Stop: 01/03/24 16:02 Pantoprazole Sodium (Pantoprazole 40 Mg Tab) 40 mg PO BID [facility] Stop: 01/05/24 20:59 Last Admin: 12/08/23 08:22 Dose: 40 mg Polyethylene Glycol (Polyethylene (Miralax) 17 Gm Pack) 17 gm PO DAILY PRN PRN Reason: Constipation Stop: 01/03/24 15:56 Saccharomyces Boulardii (Saccharomyces Boulardii 250 Mg Cap) 250 mg PO QAM [facility] Stop: 01/04/24 08:59 Last Admin: 12/08/23 08:23 Dose: 250 mg Tamsulosin HCl (Tamsulosin Hcl 0.4 Mg Cap) 0.4 mg PO HS [facility] Stop: 01/03/24 20:59 Last Admin: 12/07/23 21:01 Dose: 0.4 mg Venlafaxine HCl (Venlafaxine Hcl Xr 150 Mg Capxr) 150 mg PO QAM [facility] Stop: 01/04/24 08:59 Last Admin: 12/08/23 08:24 Dose: 150 mg (5) HTN (hypertension) Hypertension type: primary hypertension Qualified Code(s): I10 - Essential (primary) hypertension (7) Type 2 diabetes mellitus Diabetes mellitus 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
[2023-12-09] MEDS: ALENDRONATE SODIUM 70 MG TAB PO SCH (05:59)
--- NOTE | 2023-12-09 10:11 | Hospitalist Progress Note ---
Date of Service December 09, 2023 Assessment & Plan (1) Acute blood loss anemia: Plan: Secondary to GI bleed with melanotic stool - GI Consulted GI, patient has previously been supposed to have EGD but couldn't due to thrombocytopenia, today platelet count of 266. - H&H was reported <7 at facility, here is >8. hemmocult positive. -Protonix IV ordered - VSS - Hold xarelto, last dose 11/29 (was recently transitioned from coumadin. 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 with bipolar cautery Has been on Protonix twice daily and will continue even on discharge Clinically much better and hemoglobin is maintaining at 11 following blood transfusion Will restart Xarelto after about 5 days Hemoglobin remains stable and without any acute symptoms Can be discharged to [facility] today She has been stable and her hemoglobin seems to be stable too She will be discharged this afternoon if the transport is available to go to [facility] and the bed hold is there Remains medically stable without any significant symptoms She can start her general toe from tomorrow at [facility] (2) Melanotic stools: (3) Atrial fibrillation with rapid ventricular response: Plan: Chronic Afib (diagnosed Jul 2023) - Continue with metoprolol, diltiazem, digoxin. Monitor PT/INR. - Previously was on coumadin and then switched to Xarelto, appears last dose was on 11/30/23 per med rec on paper chart from facility - Can consider low dose heparin gtt if next H&H is stable at 1600 - due to GI bleeding may require holding anticoagulation - Appreciate GI recs Rate is controlled Has been on Xarelto On hold for acute GI bleed Will try to restart if EGD is normal and there is no evidence of ongoing bleeding Rate is controlled-Xarelto will be restarted following 5 days of status post endoscopy-12/05/2023 Denies any cardiac symptom Will start Xarelto from tomorrow Heart rate remains controlled (4) Gangrene of hand: Plan: Hx acrocyanosis of all 4 extremities as well as the tip of her nose 07/26-07/27 - S/p multiple amputations including recent Left foot transmetatarsals (11/01/23) and R hand 11/12/23) -Right anterior foot -Significant dry gangrenous change with black eschar formation left anterior hand and fingers likely glove -Denies any significant symptoms -Advised to have follow-up appointment with orthopedic surgeon -Denies any symptoms (5) HTN (hypertension): Plan: Blood pressure remains reasonable and seems to be upper side of normal (6) Dyslipidemia: (7) Type 2 diabetes mellitus: Plan Hx of recurrent UTI - Check urine culture, Appears patient has recently completed a 1 week course of Augmentin which was started on 11/24, would have finished 2 days ago. Possibly worsening diarrhea. - Cont florastor - Check C diff with recent abx for recurrent UTI, stool cultures ordered- negative so far Nonocclusive thrombus in the right IJ: - Right IJ catheter has been discontinued. Patient on xarelto for A-fib. DM II - A1c of 6.4 in September 2023. Hold metformin. Sliding scale insulin. Dyslipidemia - Continue home statin HTN - Chronic, stable, medications as above Mood disorder -Continue home Effexor DVT ppx: teds, scds Lines: 2 large-bore PIV FEN/GI: Allow clears, n.p.o. 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 Has been feeling much better following blood transfusion Denies any significant symptoms 12/07/2023 The patient was seen and examined in telemetry unit She has been feeling much better Denies any epigastric discomfort and denies any other significant symptoms She is ready to go back to [facility] 12/08/2023 The patient was seen and examined in telemetry unit She has been feeling much better and denies any significant symptoms Her hemoglobin remains stable She will be discharged to [facility] this afternoon 12/09/2023 The patient was seen and examined in telemetry unit She has been doing much better and denies any complaints She will be transported to [facility] this afternoon Review of Systems Review of Systems: All systems reviewed and are unremarkable except as noted below Physical Exam Physical Exam: Lying in bed without any acute distress Constitutional: + ill appearing and average body habitus Eyes: PERRL, conjunctivae normal, anicteric sclerae ENMT: external ear and nose normal, oropharynx normal Neck: trachea midline, no thyromegaly Respiratory: no respiratory distress Auscultation: lungs clear to auscultation bilaterally Cardiovascular: Rate/Rhythm: regular rate and regular rhythm; not tachycardic Heart Sounds: normal S1 and normal S2; no murmur Extremities: no edema Gastrointestinal (Abdomen): Inspection/Auscultation: normal bowel sounds; abdomen not distended Percussion/Palpation: abdomen soft; abdomen nontender Musculoskeletal: Extremities: + hand abnormality (Amputation of the right hand, black eschar likely cast on the left hand); + extremities abnormal to inspection (Amputation of the right hand, right and left distal feet,) Neurologic: normal touch/pain/proprioception and moves all extremities Lymphatic: no cervical or axillary lymphadenopathy Results & Data Results & Data Vital Signs (Past 12 Hours) Vital Signs Temp Pulse Pulse Resp BP BP Pulse Ox 12/09/23 08:52 79 12/09/23 07:37 36.6 C 17 165/72 H 98 12/09/23 03:10 36.6 C 78 16 169/76 H 96 12/08/23 22:56 78 12/08/23 22:36 36.9 C 77 16 165/73 H 93 O2 Del Method 12/09/23 08:52 12/09/23 07:37 Room Air 12/09/23 03:10 Room Air 12/08/23 22:56 12/08/23 22:36 Room Air Medications Administered Current Inpatient Medications Acetaminophen (Acetaminophen 325 Mg Tab) 650 mg PO Q6H PRN PRN Reason: FEVER >100/PAIN Stop: 01/03/24 15:56 Alendronate Sodium (Alendronate Sodium 70 Mg Tab) 70 mg PO Mo@0630 [facility] Stop: 01/08/24 06:29 Last Admin: 12/09/23 05:59 Dose: 70 mg Atorvastatin Calcium (Atorvastatin 40 Mg Tab) 40 mg PO HS [facility] Stop: 01/03/24 20:59 Last Admin: 12/08/23 20:13 Dose: 40 mg Bisacodyl (Bisacodyl 10 Mg Supp) 10 mg [place] UD PRN PRN Reason: Constipation Stop: 01/03/24 15:56 Calcium/Vitamin D (Calcium 600mg + Vit D 400 Iu Tab) 1 tab PO QAM [facility] Stop: 01/04/24 08:59 Last Admin: 12/09/23 08:05 Dose: 1 tab Cyanocobalamin (Cyanocobalamin (B-12) 500 Mcg Tablet) 1,000 mcg PO QAM [facility] Stop: 01/04/24 08:59 Last Admin: 12/09/23 08:06 Dose: 1,000 mcg Dextrose (Dextrose 50% 50 Ml Syringe) 25 - 50 ml IV UD PRN; Protocol PRN Reason: Hypoglycemia Protocol Stop: 01/03/24 15:56 Digoxin (Digoxin 0.125 Mg Tab) 0.125 mg PO HS [facility] Stop: 01/03/24 20:59 Last Admin: 12/08/23 20:13 Dose: 0.125 mg Diltiazem HCl (Diltiazem Hcl 180 Mg Capcr) [facility] Stop: 01/04/24 08:59 Last Admin: 12/09/23 08:06 Dose: 180 mg Glucagon (Glucagon For Inj 1 Mg Vial) 1 mg SQ UD PRN; Protocol PRN Reason: Hypoglycemia Protocol Stop: 01/03/24 15:56 Glucose (Glucose 40% Gel 15 Gm Tube) 15 - 30 gm PO UD PRN; Protocol PRN Reason: Hypoglycemia Protocol Stop: 01/03/24 15:56 Glucose (Glucose 10 Tab/Tube) 4 - 8 tab PO UD PRN; Protocol PRN Reason: Hypoglycemia Treatment Stop: 01/03/24 15:56 Insulin Aspart (Insulin Aspart Per Unit Charge) 0 units SC [facility] Stop: 01/03/24 16:29 Last Admin: 12/09/23 08:04 Dose: 3 units Magnesium Oxide (Magnesium Oxide 400 Mg Tab) 400 mg PO QAM [facility] Stop: 01/04/24 08:59 Last Admin: 12/09/23 08:07 Dose: 400 mg Melatonin (Melatonin 3 Mg Tab) 3 mg PO HS PRN PRN Reason: sleep Stop: 01/03/24 15:56 Miscellaneous (Carbohydrates For Hypoglycemia ) 15 - 30 gm PO UD PRN PRN Reason: Hypoglycemia Protocol Stop: 01/03/24 15:56 Ondansetron HCl (Ondansetron Inj 2 Mg/Ml 2 Ml Vial) 4 mg IV Q6H PRN PRN Reason: Nausea Stop: 01/03/24 15:56 Ondansetron HCl (Ondansetron 4 Mg Od Tab) 4 mg PO Q8H PRN PRN Reason: Nausea Stop: 01/03/24 16:02 Pantoprazole Sodium (Pantoprazole 40 Mg Tab) 40 mg PO BID [facility] Stop: 01/05/24 20:59 Last Admin: 12/09/23 08:07 Dose: 40 mg Polyethylene Glycol (Polyethylene (Miralax) 17 Gm Pack) 17 gm PO DAILY PRN PRN Reason: Constipation Stop: 01/03/24 15:56 Saccharomyces Boulardii (Saccharomyces Boulardii 250 Mg Cap) 250 mg PO QAM [facility] Stop: 01/04/24 08:59 Last Admin: 12/09/23 08:05 Dose: 250 mg Tamsulosin HCl (Tamsulosin Hcl 0.4 Mg Cap) 0.4 mg PO HS [facility] Stop: 01/03/24 20:59 Last Admin: 12/08/23 20:14 Dose: 0.4 mg Venlafaxine HCl (Venlafaxine Hcl Xr 150 Mg Capxr) 150 mg PO QAM [facility] Stop: 01/04/24 08:59 Last Admin: 12/09/23 08:06 Dose: 150 mg (5) HTN (hypertension) Hypertension type: primary hypertension Qualified Code(s): I10 - Essential (primary) hypertension (7) Type 2 diabetes mellitus Diabetes mellitus terminal carman insulin use: without retirement use Diabetes mellitus complication status: with other specified complication Qualified Code(s): E11.69 - Type 2 diabetes mellitus with other specified complication
--- NOTE | 2023-12-09 16:03 | Discharge Summary ---
Date of Service December 09, 2023 Admission HPI Per Admitting Provider This is a 73 yo F with complex history. Pt has chronic medical issues of afib new from July, DM II, HTN, history of hepatitis C s/p treatment, HLD, B12 deficiency, osteoporosis history of tobacco use. Pt underwent ICU admission 07/26/2023 with septic shock due to complicated UTI requiring vasopressors, obstructive uropathy, grew out klebsiella, requriing cystoscopy and placement of R ureteral sent early on 07/26/23. Pt completed IV antibiotics with ceftriaxone x 14 days, then transitioned to cipro and completed course on 08/20. She developed acrocyanosis of all 4 extremities as well as the tip of her nose 07/26-07/27, thrombocytopenia. On 07/28 became progressively obtunded, transferred back to ICU and intubated that evening. Antibiotic coverage broadened due to concern for meningitis/encephalitis. MRI done and showed small right occipital lobe lacunar infarct. On 07/31, pt went into new- onset atrial fibrillation with RVR - started on beta-armando and digoxin. Extubated on 08/01, heparin gtt restarted. Heparin gtt changed to Lovenox. Developed acute on chronic diastolic CHF with pulmonary edema - diuresed with furosemide 40 mg IV BID but this was subsequently discontinued. Developed new- onset anemia with probable UGIB - saw GI, transfused two units, PPI BID. She needed EGD recommended by GI at the end of July but was unable to get it due to thrombocytopenia. . Ortho consulted for possible debridement of necrosis from prior cyanosis. Reconsulted on 08/08 - recommended podiatry for LE who saw pt 08/10. Pt started on leech therapy 08/09-08/13 per ortho and wound care recs. Upon completion of leech therapy, pt started on warfarin. Issues with vascular access during admission - had a right IJ line placed in the ICU, which was continued due to inability to place a PICC line due to poor vascular access. Pt started PT/OT. Accepted at [facility] and discharged there on 08/21. During last hospitalization from 08/25- 09/09: She was treated for Bacteremia with Alph strep not S. pne/enterocococcus, Metabolic encephalopathy, Likely dt secondary UTI, grew out Florina albicans/dubliniensis . On 11/01/[address] [facility] [address] 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 She was admitted back to [facility] after that hospital stay. On 11/12/2023 she underwent right wrist amputation by Dr. Lay. Today, pt is here with her brother and sister. Patient herself is a very poor historian. Sister reports worsening diarrhea and melanotic stools which may have started about a week ago. Feels improved after bowel movement. Hemoccult was obtained at her facility, [facility], a few days ago which was positive. Pt also reports having nausea and vomiting on Saturday this week. She had complaints of nausea which is random, is unsure if food is aggravating her stomach. Denies coffee ground emesis or BRB. Denies pain or issues with swallowing. Denies fever, chills or sweats. Appears the patient was on Augmentin since 11/25/23 for past 7 days at [facility], possible that this is when her diarrhea started. Admission Exam Per Admitting Provider GENERAL APPEARANCE: AxOx4, generally well-appearing female, fairly flat affect no acute distress. HEENT: NC, AT. MMM. EOMI, clear conjunctiva, oropharynx clear. NECK: Supple without lymphadenopathy. No stiffness or restricted ROM. HEART: Normal rate and regular rhythm, normal S1/S1, no m/r/g LUNGS: CTAB, moving air well. No crackles or wheezes are heard. ABDOMEN: Soft, nontender, nondistended with good bowel sounds heard. EXTREMITIES: Without cyanosis, clubbing or edema. right upper extremity in dressing s/p amputation, left foot TMA in dressing, CDI, left hand dry gangrene noted with line of demarcation at wrist , right dry gangrene noted of foot/digits NEUROLOGICAL: Grossly nonfocal. Alert and oriented, moving all 4 extremities. CN not formally tested but appear grossly intact. Principal Diagnosis Acute blood loss anemia secondary to upper GI bleed,2 unit of PRBC transfusion, EGD with cauterization of the 5 bleeding angiectasis in the duodenum, acrocyanosis, A-fib on Xarelto Discharge Exam Lying in bed without any acute distress Constitutional + ill appearing and average body habitus Eyes PERRL, conjunctivae normal, anicteric sclerae ENMT external ear and nose normal, oropharynx normal Neck trachea midline, no thyromegaly Respiratory no respiratory distress Auscultation: lungs clear to auscultation bilaterally Cardiovascular Rate/Rhythm: regular rate and regular rhythm; not tachycardic Heart Sounds: normal S1 and normal S2; no murmur Extremities: no edema Gastrointestinal (Abdomen) Inspection/Auscultation: normal bowel sounds; abdomen not distended Percussion/Palpation: abdomen soft; abdomen nontender Musculoskeletal Extremities: + hand abnormality (Amputation of the right hand, black eschar likely cast on the left hand); + extremities abnormal to inspection (Amputation of the right hand, right and left distal feet,) Neurologic normal touch/pain/proprioception and moves all extremities Lymphatic no cervical or axillary lymphadenopathy Discharge Data Allergies Allergy/AdvReac Type Severity Reaction Status Date / Time No Known Allergies Allergy Verified 12/04/23 15:14 Consultations 12/04/23 13:11 ED Decision to Admit Stat 12/04/23 14:38 Consult Gastroenterology Routine Procedures Performed Operation Date: 12/05/23 16:30 Actual Procedures p EGD Hemostasis(Not Applicable) - Chauncey Joya Case, DO Hospital Course (1) Acute blood loss anemia: Secondary to GI bleed with melanotic stool - GI Consulted GI, patient has previously been supposed to have EGD but couldn't due to thrombocytopenia, today platelet count of 266. - H&H was reported <7 at facility, here is >8. hemmocult positive. -Protonix IV ordered - VSS - Hold xarelto, last dose 11/29 (was recently transitioned from coumadin. 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 with bipolar cautery Has been on Protonix twice daily and will continue even on discharge Clinically much better and hemoglobin is maintaining at 11 following blood transfusion Will restart Xarelto after about 5 days Hemoglobin remains stable and without any acute symptoms Can be discharged to Critical access hospital today She has been stable and her hemoglobin seems to be stable too She will be discharged this afternoon if the transport is available to go to Critical access hospital and the bed hold is there Remains medically stable without any significant symptoms She can start her general toe from tomorrow at the [facility] (2) Melanotic stools: (3) Atrial fibrillation with rapid ventricular response: Chronic Afib (diagnosed Jul 2023) - Continue with metoprolol, diltiazem, digoxin. Monitor PT/INR. - Previously was on coumadin and then switched to Xarelto, appears last dose was on 11/30/23 per med rec on paper chart from facility - Can consider low dose heparin gtt if next H&H is stable at 1600 - due to GI bleeding may require holding anticoagulation - Appreciate GI recs Rate is controlled Has been on Xarelto On hold for acute GI bleed Will try to restart if EGD is normal and there is no evidence of ongoing bleeding Rate is controlled-Xarelto will be restarted following 5 days of status post endoscopy-12/05/2023 Denies any cardiac symptom Will start Xarelto from tomorrow Heart rate remains controlled (4) Gangrene of hand: Hx acrocyanosis of all 4 extremities as well as the tip of her nose 07/26-07/27 - S/p multiple amputations including recent Left foot transmetatarsals (11/01/23) and R hand 11/12/23) -Right anterior foot -Significant dry gangrenous change with black eschar formation left anterior hand and fingers likely glove -Denies any significant symptoms -Advised to have follow-up appointment with orthopedic surgeon -Denies any symptoms (5) HTN (hypertension): Blood pressure remains reasonable and seems to be upper side of normal (6) Dyslipidemia: (7) Type 2 diabetes mellitus: Plan Hx of recurrent UTI - Check urine culture, Appears patient has recently completed a 1 week course of Augmentin which was started on 11/24, would have finished 2 days ago. Possibly worsening diarrhea. - Cont florastor - Check C diff with recent abx for recurrent UTI, stool cultures ordered- negative so far Nonocclusive thrombus in the right IJ: - Right IJ catheter has been discontinued. Patient on xarelto for A-fib. DM II - A1c of 6.4 in September 2023. Hold metformin. Sliding scale insulin. Dyslipidemia - Continue home statin HTN - Chronic, stable, medications as above Mood disorder -Continue home Effexor DVT ppx: teds, scds Lines: 2 large-bore PIV FEN/GI: Allow clears, n.p.o. after midnight in case needs for EGD CODE: Full code Will be discharged to Critical access hospital this afternoon Total Time Total Time Spent Total Time Spent (In Minutes): 40 minutes Discharge Plan Discharge Items Patient Disposition: Transfer Longterm Fac Reason For Visit: ACUTE ANEMIA, C/F GIB Discharge Diagnosis: Acute blood loss anemia secondary to upper GI bleed,2 unit of PRBC transfusion, EGD with cauterization of the 5 bleeding angiectasis in the duodenum, acrocyanosis, A-fib on Xarelto Activity: Resume your previous activity Non-emergency contact: Primary Care Provider Call non-emergency contact if: you have any medication questions and your symptoms worsen Follow-up/Referrals: Sulema Coughlin MD [Primary Care Provider] - Diet: Carb Consistent or DM2 and Heart Healthy Addtl Attending Provider Instructions: Please take precautions to avoid falls You can start your general to from tomorrow She requires help with ADLs Please keep appointments with healthcare providers Pending Studies at Discharge: No Stand-Alone Forms: My Inbilin Skilled Items Patient informed of condition?: Yes DNR: No Discharge Level of Care: Skilled Communicable Disease: No Discharge Prognosis: Stable Lines: None Urinary Catheter: No Medications and DC Order Prescriptions: Continued magnesium oxide 400 mg (241.3 mg magnesium) Tablet 400 mg PO QAM Qty: 60 0RF atorvastatin 40 mg Tablet 40 mg PO HS Qty: 30 0RF acetaminophen [Tylenol] 325 mg Tablet 650 mg PO Q6H PRN (Reason: FEVER >100/PAIN) Qty: 30 0RF diltiazem HCl 180 mg Capsule,Extended Release 24hr 180 mg PO QAM Qty: 30 0RF cyanocobalamin (vitamin B-12) 1,000 mcg Tablet 1,000 mcg PO QAM Qty: 30 0RF melatonin 3 mg Tablet 3 mg PO HS PRN (Reason: sleep) Qty: 30 0RF tamsulosin 0.4 mg Capsule 0.4 mg PO HS Qty: 30 0RF metformin 1,000 mg Tablet 1,000 mg PO BIDWMEAL Qty: 60 0RF digoxin [Digitek] 125 mcg (0.125 mg) tablet 0.125 mg PO HS Qty: 30 0RF ondansetron HCl 4 mg Tablet 4 mg PO Q8H PRN (Reason: Nausea) Rx Instructions: administer prior to therapy sessions magnesium hydroxide 400 mg/5 mL Suspension 2,400 mg PO UD PRN (Reason: Constipation) Rx Instructions: no BM for 3 days, administer MOM on 7-3 shift bisacodyl [Dulcolax (bisacodyl)] 10 mg Suppository 10 mg NH UD PRN (Reason: Constipation) Rx Instructions: day 3, 3-11pm shift, if no BM after MOM Fleet Enema 19-7 gram/118 mL Enema 118 ml NH UD PRN (Reason: Constipation) Rx Instructions: no BM after dulcolax, administer on 7-3 shift day 4 Saccharomyces boulardii [Florastor] 250 mg Capsule 250 mg PO QAM alendronate [Fosamax] 70 mg tablet 70 mg PO Q7D Rx Instructions: MONDAYS venlafaxine 150 mg capsule,extended release 24hr 150 mg PO QAM pantoprazole 40 mg tablet,delayed release (DR/EC) 40 mg PO BID calcium carbonate-vitamin D3 [Calcium 500 + D] 500 mg-5 mcg (200 unit) tablet 1 tab PO QAM loperamide 2 mg Capsule 2 mg PO DIRECTED PRN (Reason: .loose bm) Rx Instructions: for 7 days , end 12/06/23 promethazine 25 mg/mL solution 25 mg IM Q6 PRN (Reason: N/V) Rx Instructions: END 12/06/23 Xarelto 20 mg tablet 20 mg PO DAILY Discharge Orders: Discharge Order (Routine); Ordered 12/09/23 Ordered By: Víctor Santana Admission Data Admit Date/Time: 12/04/23 14:37 Attending Provider: Víctor Sanatna Admit Provider: Radha Juarez Primary Care Provider: Sulema Coughlin Other Providers: Radha Juarez; Chauncey Francisco; [facility] Other Interventions: Discharge Summary Assessment (RN) Last Done: 12/09/23 12:34
== END 2023-12-09 12:52 | DRG 378 ==
LOC: ED 11:31 → SUATTDRO 14:37 → EDINP 14:37 → 2S 18:03

== ENCOUNTER 2023-12-27 12:01 | Inpatient (IN) ==
--- NOTE | 2023-12-27 12:50 | Emergency Department Note ---
Impression & Plan Sepsis, Wound, open, foot with complication, Leukocytosis, Elevated lactic acid level ED Provider Note HISTORY OF PRESENT ILLNESS: Patient is a 73-year-old female presenting with right foot wound. Patient follows in [facility] podiatry office with Dr. Rod. She was seen today in their clinic and is status post right and left partial foot amputations. In clinic today she was found to have concerning findings of infection with the right foot with some wound dehiscence. Previous culture results that were sent with the patient showed that she grew ESBL from her foot wound on 12/20/2023. She was referred by Dr. Rod to the emergency department for admission for PICC line placement and IV antibiotics. Patient denies any chest pain or shortness of breath. Denies any pain. Denies any nausea or vomiting. No reported fevers. She was on amoxicillin for a urinary tract infection in early November and completed on 12/04/2023 ROS: as above PHYSICAL EXAM: Constitutional: Patient appears in no acute distress. HENT: Head: Normocephalic and atraumatic. Eyes: EOMI, PERRL Mouth/Throat: Mucous membranes moist. Neck: Trachea midline. Neck supple. Cardiovascular: RRR, No murmurs, rubs or gallops. Intact distal pulses. Pulmonary/Chest: No respiratory distress. Breath sounds clear and equal bilaterally. No wheezes or rales. Abdominal: Abdomen soft, no tenderness, rebound or guarding Musculoskeletal: Partial amputation of the bilateral feet. The left foot shows some central dehiscence. Right foot dry gangrene is noted with some wound dehiscence. Right foot is more erythematous than the left Skin: Warm and dry. Patient has dry gangrene to the left hand. Psychiatric: Appropriate mood and affect for situation. Neurological: Alert and keenly responsive. CN II-XII grossly intact MDM: - Vitals signs stable. - History obtained via patient and center care fdc documentation. History as above. - Chronic conditions affecting care: DM-2; HTN; HLD; gangrene - Differential diagnoses include, but are not limited to: bacteremia; pneumonia; UTI; cellulitis - Order placed for continuous cardiac monitoring. At this time, monitor showed rate of 86 bpm with normal sinus rhythm, per my interpretation. - External medical records reviewed. Wound care report dated 12/13/2023 was reviewed. Patient is 6 weeks status post left foot metatarsal amputation. Date of surgery was 11/01/2023. She developed bilateral dry gangrene after sepsis treatment while at [facility]. - EKG interpreted by myself showed normal sinus rhythm. Rate 95 bpm. QT 310. No acute ischemic changes. - Laboratory workup interpreted by myself showed leukocytosis (WBC 11.25) with left shift; stable electrolytes other than hypomagnesemia (Mg 1.6); hyperglycemia (glucose 144); elevated lactate (2.8) - CXR negative for pneumonia, per my interpretation - Patient given 2L NS in ER. Patient's sepsis fluid resuscitation volume based on ideal body weight is 1900 mL - Patient given 1g IV magnesium for electrolyte replacement - Blood cultures obtained. - IV daptomycin and meropenem ordered for antibiotic coverage, as patient has grown ESBL and VRE in the past. - Discussion was had with rn case manager about patient's case and need for admission - Hospitalist consulted for admission - [facility] ASSESSMENT AND PLAN: Diagnosis: sepsis; foot wound; hypomagnesemia; leukocytosis; elevated lactic acid Plan: admit Past Med/Surg History Problem List (Updated 12/13/23 @ 00:08 by Background Daemon) Elevated lactic acid level (Acute) Leukocytosis (Acute) Wound, open, foot with complication (Acute) Sepsis (Acute) Duodenal arteriovenous malformation Acute blood loss anemia GI bleed (Acute) Melanotic stools Gangrene of hand Complicated urinary tract infection (Acute) Dry gangrene (Acute) Bacteremia due to Gram-positive bacteria Ureteral stent present (Acute) Gangrene Thrombocytopenia Thrombocytopathia Anemia Hypokalemia (Acute) Hypomagnesemia (Acute) Nephrolithiasis Dyslipidemia Type 2 diabetes mellitus NIDDM Ureterolithiasis (Acute) hx Bacteremia (Acute) hx Atrial fibrillation with rapid ventricular response currently on chronic AC w/coumadin HTN (hypertension) S/P wrist surgery left 5 yrs ago Medical History (Updated 12/27/23 @ 14:24 by Anne-Marie Hutchison MD) Encounter for pre-operative examination Carotid artery stenosis Moderate LEFT ICA stenosis, possible high risk, ulcerative plaque in this location. There is streak artifact from the calcium and patient motion limiting evaluation. History of upper gastrointestinal bleeding 07/2023 Non-occlusive thrombus right internal jugular vein Cognitive communication deficit in setting of encephalopathy Dysphagia, oral phase denies choking, denies specialized diet at this time Muscle weakness (generalized) Difficulty in walking, not elsewhere classified Urinary tract infection, site not specified Klebsiella pneumoniae [k. 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; per H&P-"pt tx aggresively w/IV blood pressure support and mech. ventilation. sepsis due to complicated UTI and bacteremia w/klebsiella pneumoniae, tx primarily w/IV cefepime. due to her severe sepsis and need for IV pressor, developed acrocyanosis/gangrene to all 4 extremities as well as distal nose. 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/gangrene" Complicated urinary tract infection Hydronephrosis due to obstruction of ureter hx Closed fracture of left distal radius and ulna hx History of COVID-19 07/2023, [facility], hospitalized 07/26/23-08/21/23 History of colon polyps Anxiety Surgical History (Updated 12/13/23 @ 00:08 by Sukhdeep Wagoner) S/P cystoscopy with ureteral stent placement 09/05/23>w/ureteroscopy and stone extraction, stent exchange; stent removed 09/09/23 History of colonoscopy History of hysterectomy History of tonsillectomy Family History Grandmother Family history of diabetes mellitus Family history of colon cancer Grandfather Family history of colon cancer Aunt Family history of colon cancer Uncle Family history of colon cancer Social History Smoking Status: Former smoker Tobacco Type: Cigarettes Second Hand Exposure: No; Do You Dip or Chew Tobacco: No; Hx Alcohol Use: No Hx Substance Use: No Preferred Language: Syrian Communication Ability: Effective Crematory Operator Required: No Beliefs That Will Affect Care: None Current Living Situation: Detention Current Living Situation Comment: [facility] Feels Safe at Home: Yes Assistive Devices: Wheelchair Allergies Allergies Allergy/AdvReac Type Severity Reaction Status Date / Time No Known Allergies Allergy Verified 12/04/23 15:14 Home Meds Home Medications Medication Instructions Recorded Confirmed Saccharomyces boulardii 250 mg 250 mg PO QAM 10/14/23 12/27/23 capsule (Florastor) alendronate 70 mg tablet (Fosamax) 70 mg PO WK 10/14/23 12/27/23 bisacodyl 10 mg rectal suppository 10 mg NC UD PRN Constipation 10/14/23 12/27/23 (Dulcolax (bisacodyl)) calcium carbonate 500 mg-vitamin 1 tab PO QAM 10/14/23 12/27/23 D3 5 mcg (200 unit) tablet (Calcium 500 + D) magnesium hydroxide 400 mg/5 mL 2,400 mg PO UD PRN Constipation 10/14/23 12/27/23 oral suspension ondansetron HCl 4 mg tablet 4 mg PO Q6H PRN Nausea 10/14/23 12/27/23 pantoprazole 40 mg tablet,delayed 40 mg PO BID 10/14/23 12/27/23 release sodium phosphates 19 gram-7 118 ml NC UD PRN Constipation 10/14/23 12/27/23 gram/118 mL enema (Fleet Enema) venlafaxine 150 mg 150 mg PO QAM 10/14/23 12/27/23 capsule,extended release 24 hr cephalexin 500 mg capsule 500 mg PO BID 12/27/23 12/27/23 oxycodone 5 mg tablet 5 mg PO Q6H PRN Moderate-Severe 12/27/23 12/27/23 pain povidone-iodine 10 % topical See Rx Instructions .Route .COMPLEX 12/27/23 12/27/23 solution (Betadine) Previous Rx's Medication Instructions Recorded acetaminophen 325 mg tablet 650 mg (2 x 325 mg) PO Q6H PRN 09/10/23 (Tylenol) FEVER >100/PAIN #30 tabs atorvastatin 40 mg tablet 40 mg PO HS #30 tabs 09/10/23 cyanocobalamin (vitamin B-12) 1,000 mcg PO QAM #30 tabs 09/10/23 1,000 mcg tablet digoxin 125 mcg (0.125 mg) tablet 0.125 mg PO HS #30 tabs 09/10/23 (Digitek) diltiazem HCl 180 mg 180 mg PO QAM #30 caps 09/10/23 capsule,extended release 24 hr magnesium oxide 400 mg (241.3 mg 400 mg PO QAM #60 tabs 09/10/23 magnesium) tablet melatonin 3 mg tablet 3 mg PO HS PRN sleep #30 tabs 09/10/23 metformin 1,000 mg tablet 1,000 mg PO BIDWMEAL #60 tabs 09/10/23 tamsulosin 0.4 mg capsule 0.4 mg PO HS #30 caps 09/10/23 Results & Data (ED) Vital Signs Vital Signs - 24 hr 12/27/23 12:11 12/27/23 13:30 Temperature 36.0 C L Temperature Source Oral Pulse Rate 85 85 Respiratory Rate 14 Respiratory Depth Normal Blood Pressure 122/69 Blood Pressure Mean 86 Pulse Oximetry 96 Oxygen Delivery Method Room Air Sepsis Recent Fever Within 48 Hours No Sepsis New/Unexplained Change in Mental Status N/A Sepsis Action Taken by Nursing No Action Required Laboratory Data 12/27/23 12:55 12/27/23 12:55 Lab Results 12/27/23 12/27/23 Range/Units 12:55 14:05 WBC 11.25 H (4.8-10.8) K/ul RBC 4.08 L (4.20-5.40) M/uL Hgb 10.5 L (12.0-16.0) g/dl Hct 33.3 L (37.0-47.0) % MCV 81.6 (80.0-100.0) fL MCH 25.7 (25.0-34.0) pg MCHC 31.5 L (32.0-36.0) g/dL RDW Std Deviation 51.7 H (36.4-46.3) fL RDW Coeff of Mary 17.3 H (11.5-14.5) % Plt Count 408 H (130-400) K/uL MPV 8.7 L (9.4-12.4) fL Immature Gran % (Auto) 1.1 % Neut % (Auto) 73.8 % Lymph % (Auto) 18.1 % [place] % (Auto) 6.0 % Eos % (Auto) 0.7 % Baso % (Auto) 0.3 % Neut # (Auto) 8.31 H (1.40-6.50) K/uL Lymph # (Auto) 2.04 (1.20-3.40) K/uL [place] # (Auto) 0.67 H (0.11-0.59) K/uL Eos # (Auto) 0.08 (0.00-0.50) K/uL Baso # (Auto) 0.03 (0.00-0.20) K/uL Immature Gran # (Auto) 0.12 (0.01-0.20) K/uL VBG pH 7.41 (7.36-7.41) VBG pCO2 44 (38-50) mmHg VBG pO2 51 mmHg VBG HCO3 28 mmol/L VBG O2 Saturation 83.0 % VBG Base Excess 2.8 mEq/L Sodium 134 L (136-145) mmol/L Potassium 4.4 (3.5-5.1) mmol/L Chloride 99 (98-107) mmol/L Carbon Dioxide 29 (21-32) mmol/L Anion Gap 6 (3-11) BUN 9 (6-23) mg/dl Creatinine 0.55 L (0.6-1.2) mg/dl Est Cr Clr Drug Dosing Not Reportable Est GFR ( Amer) 107.8 ml/min Est GFR (Non-Af Amer) 93.1 ml/min BUN/Creatinine Ratio 16.4 (10-20) Glucose 144 H (70-99(Fasting)) mg/dl Lactate 2.8 H* (0.4-2.0) mmol/L Calcium 10.2 (8.6-10.3) mg/dl Magnesium 1.6 L (1.7-2.4) mg/dl Total Bilirubin 0.3 (0.2-1.0) mg/dl Direct Bilirubin 0.1 (0-0.2) mg/dl AST 11 L (13-39) U/L ALT 7 (7-52) U/L Alkaline Phosphatase 64 (34-104) U/L Troponin I High Sens 14.1 H (0-14) pg/ml Total Protein 7.3 (6.0-8.3) gm/dl Albumin 3.5 (3.4-5.0) gm/dl Procalcitonin 0.03 (0-0.5) ng/ml Administered Medications Meropenem 500 mg/ Syringe 10 mls @ 2 mls/min IV Q6H [facility]; Protocol Stop: 12/29/23 12:59 Last Admin: 12/27/23 14:24 Dose: 2 mls/min Documented By: SHARRIW Sodium Chloride (Nss) 1,000 mls @ 999 mls/hr IV .Q1H1M ONE Stop: 12/27/23 15:20 Last Admin: 12/27/23 14:28 Dose: 999 mls/hr Documented By: SHARRIW Magnesium Sulfate/Dextrose (Magnesium Sulfate / D5w) 1 gm in 100 mls @ 100 mls/hr IV NOW STA Stop: 12/27/23 15:19 Last Admin: 12/27/23 14:33 Dose: 100 mls/hr Documented By: JOSE Imaging Data Radiologist's Impression: Chest X-Ray 12/27/23 12:20 SINGLE VIEW CHEST CLINICAL HISTORY: Sepsis. FINDINGS: 2 AP, portable, upright chest radiographs are compared to chest x-ray and chest CT dated 08/25/2023. The heart is mildly enlarged noting atherosclerotic calcification of the thoracic aorta. The pulmonary vasculature is noncongested. Emphysema and chronic interstitial thickening is somewhat previous. There is bibasilar scarring/atelectasis. No airspace consolidation or pleural effusion is identified. No pneumothorax is seen. The skeletal structures are osteopenic. The bony thorax is grossly intact. IMPRESSION: Cardiomegaly and emphysema with no active disease in the chest. ACT 112: Negative or not required by law. Electronically signed by: Pravin Nguyen M.D. 12/27/2023 12:51 PM Discharge Plan Visit Data Chief Complaint: Referred by Doctor Stated Complaint: PICK LINE AND IV ANTIBIOTICS, WOUND CARE ED Provider: Anne-Marie Hutchison Discharge Problem: Sepsis, Wound, open, foot with complication, Leukocytosis, Elevated lactic acid level Forms Stand Alone Forms: My [facility] Prescriptions Prescriptions: No Action magnesium oxide 400 mg (241.3 mg magnesium) Tablet 400 mg PO QAM Qty: 60 0RF atorvastatin 40 mg Tablet 40 mg PO HS Qty: 30 0RF acetaminophen [Tylenol] 325 mg Tablet 650 mg PO Q6H MDD 3,000mg/24hr PRN (Reason: FEVER >100/PAIN) Qty: 30 0RF diltiazem HCl 180 mg Capsule,Extended Release 24hr 180 mg PO QAM Qty: 30 0RF Rx Instructions: Hold for HR<60 or SBP<100 cyanocobalamin (vitamin B-12) 1,000 mcg Tablet 1,000 mcg PO QAM Qty: 30 0RF melatonin 3 mg Tablet 3 mg PO HS PRN (Reason: sleep) Qty: 30 0RF tamsulosin 0.4 mg Capsule 0.4 mg PO HS Qty: 30 0RF metformin 1,000 mg Tablet 1,000 mg PO BIDWMEAL Qty: 60 0RF digoxin [Digitek] 125 mcg (0.125 mg) tablet 0.125 mg PO HS Qty: 30 0RF Rx Instructions: Hold for HR<60 or SBP<100 ondansetron HCl 4 mg Tablet 4 mg PO Q6H PRN (Reason: Nausea) Rx Instructions: administer prior to therapy sessions magnesium hydroxide 400 mg/5 mL Suspension 2,400 mg PO UD PRN (Reason: Constipation) Rx Instructions: no BM for 3 days, administer MOM on 7-3 shift bisacodyl [Dulcolax (bisacodyl)] 10 mg Suppository 10 mg NC UD PRN (Reason: Constipation) Rx Instructions: day 3, 3-11pm shift, if no BM after MOM Fleet Enema 19-7 gram/118 mL Enema 118 ml NC UD PRN (Reason: Constipation) Rx Instructions: no BM after dulcolax, administer on 7-3 shift day 4 Saccharomyces boulardii [Florastor] 250 mg Capsule 250 mg PO QAM alendronate [Fosamax] 70 mg tablet 70 mg PO WK Rx Instructions: MONDAYS venlafaxine 150 mg capsule,extended release 24hr 150 mg PO QAM pantoprazole 40 mg tablet,delayed release (DR/EC) 40 mg PO BID calcium carbonate-vitamin D3 [Calcium 500 + D] 500 mg-5 mcg (200 unit) tablet 1 tab PO QAM cephalexin 500 mg capsule 500 mg PO BID Rx Instructions: Start Date 12/21/23 x7 day supply oxycodone 5 mg Tablet 5 mg PO Q6H PRN (Reason: Moderate-Severe pain) povidone-iodine [Betadine] 10 % Solution See Rx Instructions .ROUTE .COMPLEX Rx Instructions: Apply to left hand topically twice daily for wound care. Referrals Referrals: [facility] [Non-Staff] - Sulema Coughlin MD [Primary Care Provider] -
--- NOTE | 2023-12-27 12:52 | XRay Report ---
SINGLE VIEW CHEST CLINICAL HISTORY: Sepsis. FINDINGS: 2 AP, portable, upright chest radiographs are compared to chest x-ray and chest CT dated . The heart is mildly enlarged noting atherosclerotic calcification of the thoracic aorta. The pulmonary vasculature is noncongested. Emphysema and chronic interstitial thickening is somewhat pre vious. There is bibasilar scarring/atelectasis. No airspace consolidation or pleural effusion is iden tified. No pneumothorax is seen. The skeletal structures are osteopenic. The bony thorax is grossly i ntact. IMPRESSION: Cardiomegaly and emphysema with no active disease in the chest. ACT 112: Negative or not required by law. Electronically signed by: Pravin Nguyen M.D. 12/27/2023 12:51 PM
[2023-12-27] MEDS ORDERED: DAPTOMYCIN IV SCH (13:30)
[2023-12-27 13:39] LABS: Basophils # (auto) 0.03 K/uL (0.00-0.20); Basophils % (auto) 0.3 %; Eosinophils # (auto) 0.08 K/uL (0.00-0.50); Eosinophils % (auto) 0.7 %; Hematocrit (blood only) 33.3 % (37.0-47.0); Hemoglobin 10.5 g/dl (12.0-16.0); Immature Granulocytes # (auto) 0.12 K/uL (0.01-0.20); Immature Granulocytes % (auto) 1.1 %; Lymphocytes # (auto) 2.04 K/uL (1.20-3.40); Lymphocytes % (auto) 18.1 %; Mean Corpuscular Hemoglobin 25.7 pg (25.0-34.0); Mean Corpuscular Hgb Conc 31.5 g/dL (32.0-36.0); Mean Corpuscular Volume 81.6 fL (80.0-100.0); Mean Platelet Volume 8.7 fL (9.4-12.4); Monocytes # (auto) 0.67 K/uL (0.11-0.59); Neutrophils # (auto) 8.31 K/uL (1.40-6.50); Neutrophils % (auto) 73.8 %; Platelet Count 408 K/uL (130-400); RDW Coefficient of Variation 17.3 % (11.5-14.5); RDW Standard Deviation 51.7 fL (36.4-46.3); Red Blood Count 4.08 M/uL (4.20-5.40); White Blood Count 11.25 K/ul (4.8-10.8)
[2023-12-27 13:44] LABS: Alanine Aminotransferase 7 U/L (7-52); Albumin Level 3.5 gm/dl (3.4-5.0); Alkaline Phosphatase 64 U/L (34-104); Anion Gap 6 (3-11); Aspartate Aminotransferase 11 U/L (13-39); BUN Creatinine Ratio 16.4 (10-20); Bilirubin Direct 0.1 mg/dl (0-0.2); Bilirubin,Total 0.3 mg/dl (0.2-1.0); Blood Urea Nitrogen 9 mg/dl (6-23); Calcium 10.2 mg/dl (8.6-10.3); Carbon Dioxide 29 mmol/L (21-32); Chloride 99 mmol/L (98-107); Est GFR (African American) 107.8 ml/min; Est GFR (Non-African American) 93.1 ml/min; Glucose 144 mg/dl (70-99(Fasting)); Magnesium 1.6 mg/dl (1.7-2.4); Potassium 4.4 mmol/L (3.5-5.1); Sodium 134 mmol/L (136-145); Total Protein 7.3 gm/dl (6.0-8.3)
[2023-12-27 13:49] LABS: Troponin I High Sensitivity 14.1 pg/ml (0-14)
[2023-12-27 14:19] LABS: Base Excess VBG 2.8 mEq/L; HCO3 VBG 28 mmol/L; PCO2 VBG 44 mmHg (38-50); PO2 VBG 51 mmHg; pH VBG 7.41 (7.36-7.41)
[2023-12-27] MEDS: MEROPENEM 500 MG in SYRINGE 0 ML IV SCH (14:24)
[2023-12-27] MEDS: SODIUM CHLORIDE 0.9% 1,000 ML IV ONE ×2 (14:28→16:02)
[2023-12-27] MEDS: MAGNESIUM SULFATE / D5W 1 GM/100 ML BAG IV STA (14:33)
--- NOTE | 2023-12-27 14:44 | XRay Report ---
XR foot RT 2V CLINICAL HISTORY: foot wound; r/o free air TECHNIQUE: 3 views of the right foot were obtained. Comparison: None available at the time of this dictation. FINDINGS: Redemonstration of amputation at the right midfoot. No definite focal bony erosions. Soft tissue swel ling is suggested. IMPRESSION: Soft tissue swelling is partially visualized. No definite erosions are seen. ACT 112: Negative or not required by law. Electronically signed by: Jomar Palomo M.D. 12/27/2023 2:43 PM
[2023-12-27 14:51] LABS: Influenza A virus by PCR Negative (Neg); Influenza B virus by PCR Negative (Neg); RSV by PCR Negative (Neg); SARS CoV2 RNA(COVID-19) Ceph NEGATIVE (Negative)
[2023-12-27] MEDS: Patient's HEIGHT &/or WEIGHT Needed STA (15:43)
--- NOTE | 2023-12-27 15:55 | History & Physical Report ---
Date of Service December 27, 2023 Assessment & Plan (1) Wound, open, foot with complication: (2) Elevated lactic acid level: Plan: Patient is a 73 year old F with complex history, PMH atrial fibrillation, DM II, HTN, dyslipidemia, history of hepatitis C s/p treatment, B12 deficiency, osteoporosis, extremity gangrene, GI bleed and others listed below presented to ER at request of engineering test specialist, Dr Rod for Right foot wound infection. S/P right foot amputation by Dr. Rod at [facility] on 12/20/23. 12/20/23 deep wound culture + ESBL sensitive to ertapenem, gentamicin, Zosyn, tobramycin, + staff aureus resistant to clindamycin otherwise pansensitive. Seen in podiatry clinic today by Dr Rod who concern for right wound infection and wound dehiscence. Patient denies F/C/N/V/D In ER afebrile, vitals stable. WBC: 11, Lactate: 2.8, procalcitonin: 0.03 R Foot Xray: Soft tissue swelling is partially visualized. No definite erosions are seen. In ER given meropenem, daptomycin, 2L NSS Trend lactate IVF Ertapenem CBC, BMP in am Spoke with pt's engineering test specialist Dr Rod on phone who feels area does not require debridement or surgical intervention at this time and IV antibiotics and wound care should be attempted first with plan to return to podiatry clinic for further follow up. He recommended twice daily dressing changes to right foot stump with 4 x 4's with gentle application of Dakin's solution with Kerlix over top Dr Rod cell #: [phone]. He requests call if any questions or concerns. LEFT FOOT WOUND History left foot gangrene s/p left transmetatarsal amputation of her foot by Dr Rod at [facility] 12/20/23 had further debridement and surgery for wound dehiscence by Dr Rod at [facility]. Area with sutures in place and currently does not appear acutely cellulitic Will continue daily dressing changes Will require further follow up with Dr Rod for suture removal and continued care (3) Gangrene: Plan: History gangrene all 4 distal extremities S/P right wrist amputation by Dr. Lay on 11/12/[address] to RUE stump. Stump does not appear infected at this time Spoke to Dr Lay on the phone who recommends staple removal. He plans to see patient tomorrow. Patient also will require amputation of left hand in future secondary to gangrene (4) Hypomagnesemia: Plan: Magnesium: 1.6 In ER given magnesium sulfate IV Repeat magnesium lab in am Continue oral magnesium supplement (5) Atrial fibrillation: Plan: Previous anticoagulated on Xarelto Xarelto has been held on 11/30/23 as developed GI bleed. Was planned to restart Xarelto on 12/10/23 after discharge however has been held at [facility] Current sinus rhythm Continue digoxin, diltiazem Discussed regarding risk benefit of xarelto and she is undecided for now- so will hold Xarelto for now and place on VTE prophylaxis Follow up on her decision regarding xarelto (6) Type 2 diabetes mellitus: Plan: A1c: 6.4 on 10/13/23 Hold home oral agents Novolog sliding scale per protocol (7) HTN (hypertension): Plan: Continue diltiazem (8) Dyslipidemia: Plan: Continue atorvastatin (9) Duodenal arteriovenous malformation: Plan: History GI bleed with hospitalization at [facility] 12/04/2023- 12/09/23 with EGD consistent with duodenal AV malformation and GI recommended Protonix BID Denies melena, hematochezia, abdominal pain. Hgb stable Continue PPI DVT Prophylaxis Lovenox SQ admit med/tele Full Code as per discussion with pt Follows with [facility] for routine care Pt was seen and care coordinated with Dr Sierra. See addendum I spent a total of 82 minutes reviewing notes, outpatient records, labs, medication, coordinating, documenting and providing care for this patient excluding time spent in the performance of separately billed services. History of Present Illness Chief Complaint: Foot wound Primary Care Provider: Sulema Coughlin MD Patient is a 73 year old F with complex history, PMH atrial fibrillation, DM II, HTN, dyslipidemia, history of hepatitis C s/p treatment, B12 deficiency, osteoporosis, extremity gangrene, GI bleed and others listed below presented to ER at request of engineering test specialist, Dr Rod for Right foot wound infection. History obtained from patient, inpatient and outpatient chart review. Multiple hospitalizations including complicated hospitalization on 07/26/2023 with septic shock due to complicated UTI requiring vasopressors, obstructive uropathy, grew out klebsiella, requiring cystoscopy and placement of R ureteral sent early on 07/26/23. Patient unfortunately developed acrocyanosis of all 4 extremities as well as the tip of her nose 07/26-07/27, thrombocytopenia, as well as required intubation, developed new a-fib, right occiptal lobe lacunar infarct. Other hospitalization in 08/2023 for necrosis s/p leech therapy. Had hospitalization for bacteremia with Alph strep not S. pne/enterocococcus. On 11/01/23 She had left transmetatarsal amputation of her foot by Dr Rod at [facility] and postoperatively she developed blood loss anemia with hemoglobin down to 6.1 requiring 3 units PRBCs. On 11/12/2023 she underwent right wrist amputation by Dr. Lay. Recent hospitalization at [facility] 12/04/2023- 12/09/23 for GI bleed. Per hospital admission notes patient was previously on Xarelto which had been held since 11/30/2023 and was to be resumed upon discharge. Reviewed patient's med rec from [facility] and it appears that patient has not been receiving Xarelto since 11/30/2023. On 12/20/2023 patient had right foot amputation by Dr. Rod at [facility] as well as further debridement of left lower leg stump. 12/20/23 deep wound culture + ESBL sensitive to ertapenem, gentamicin, Zosyn, tobramycin, + staff aureus resistant to clindamycin otherwise pansensitive. Today 12/27/2023 patient was seen by engineering test specialist, Dr. Rod in clinic who noted right stump wound with some dehiscence and slight necrosis with localized erythema and slight discharge concerning for infection. Spoke with Dr. Rod who states that he does not feel area requires debridement or surgical intervention at this time and IV antibiotics and wound care should be attempted first with plan to return to podiatry clinic for further follow up. Patient reports that she feels in her baseline health and has not noted any fever/chills, N/V/D. Denies any increased extremity pain. Areas have been dressed so patient has not visualized areas. She reports left hand gangrene seems at baseline and is to have future amputation left hand when clinically able. Denies diaphoresis, SEGAL, dizziness, CP, SOB, orthopnea, palpitations, cough, sore throat, rhinorrhea, abdominal pain, extremity edema, rashes, urinary symptoms. Allergies Allergy/AdvReac Type Severity Reaction Status Date / Time No Known Allergies Allergy Verified 12/04/23 15:14 Home Medications Medication Instructions Recorded Confirmed Type acetaminophen 325 mg tablet 650 mg (2 x 325 mg) PO Q6H PRN 09/10/23 12/27/23 Rx (Tylenol) FEVER >100/PAIN #30 tabs atorvastatin 40 mg tablet 40 mg PO HS #30 tabs 09/10/23 12/27/23 Rx cyanocobalamin (vitamin B-12) 1,000 mcg PO QAM #30 tabs 09/10/23 12/27/23 Rx 1,000 mcg tablet digoxin 125 mcg (0.125 mg) tablet 0.125 mg PO HS #30 tabs 09/10/23 12/27/23 Rx (Digitek) diltiazem HCl 180 mg 180 mg PO QAM #30 caps 09/10/23 12/27/23 Rx capsule,extended release 24 hr magnesium oxide 400 mg (241.3 mg 400 mg PO QAM #60 tabs 09/10/23 12/27/23 Rx magnesium) tablet melatonin 3 mg tablet 3 mg PO HS PRN sleep #30 tabs 09/10/23 12/27/23 Rx metformin 1,000 mg tablet 1,000 mg PO BIDWMEAL #60 tabs 09/10/23 12/27/23 Rx tamsulosin 0.4 mg capsule 0.4 mg PO HS #30 caps 09/10/23 12/27/23 Rx Saccharomyces boulardii 250 mg 250 mg PO QAM 10/14/23 12/27/23 History capsule (Florastor) alendronate 70 mg tablet (Fosamax) 70 mg PO WK 10/14/23 12/27/23 History bisacodyl 10 mg rectal suppository 10 mg TN UD PRN Constipation 10/14/23 12/27/23 History (Dulcolax (bisacodyl)) calcium carbonate 500 mg-vitamin 1 tab PO QAM 10/14/23 12/27/23 History D3 5 mcg (200 unit) tablet (Calcium 500 + D) magnesium hydroxide 400 mg/5 mL 2,400 mg PO UD PRN Constipation 10/14/23 12/27/23 History oral suspension ondansetron HCl 4 mg tablet 4 mg PO Q6H PRN Nausea 10/14/23 12/27/23 History pantoprazole 40 mg tablet,delayed 40 mg PO BID 10/14/23 12/27/23 History release sodium phosphates 19 gram-7 118 ml TN UD PRN Constipation 10/14/23 12/27/23 History gram/118 mL enema (Fleet Enema) venlafaxine 150 mg 150 mg PO QAM 10/14/23 12/27/23 History capsule,extended release 24 hr cephalexin 500 mg capsule 500 mg PO BID 12/27/23 12/27/23 History povidone-iodine 10 % topical See Rx Instructions .Route .COMPLEX 12/27/23 12/27/23 History solution (Betadine) Past Med/Surg History Problem List Atrial fibrillation Elevated lactic acid level (Acute) Leukocytosis (Acute) Wound, open, foot with complication (Acute) Sepsis (Acute) Duodenal arteriovenous malformation Acute blood loss anemia GI bleed (Acute) Melanotic stools Gangrene of hand Complicated urinary tract infection (Acute) Dry gangrene (Acute) Bacteremia due to Gram-positive bacteria Ureteral stent present (Acute) Gangrene Thrombocytopenia Thrombocytopathia Anemia Hypokalemia (Acute) Hypomagnesemia (Acute) Nephrolithiasis Dyslipidemia Type 2 diabetes mellitus NIDDM Ureterolithiasis (Acute) hx Bacteremia (Acute) hx Atrial fibrillation with rapid ventricular response currently on chronic AC w/coumadin HTN (hypertension) S/P wrist surgery left 5 yrs ago Medical History Encounter for pre-operative examination Carotid artery stenosis Moderate LEFT ICA stenosis, possible high risk, ulcerative plaque in this location. There is streak artifact from the calcium and patient motion limiting evaluation. History of upper gastrointestinal bleeding 07/2023 Non-occlusive thrombus right internal jugular vein Cognitive communication deficit in setting of encephalopathy Dysphagia, oral phase denies choking, denies specialized diet at this time Muscle weakness (generalized) Difficulty in walking, not elsewhere classified Urinary tract infection, site not specified Klebsiella pneumoniae [k. pneumoniae] as the cause of diseases classified elsewhere 08/2023 Disseminated intravascular coagulation [defibrination syndrome] hx Chronic CHF (congestive heart failure) Hx of hepatitis C s/p treatment Acrocyanosis of all 4 extremities w/associated gangrene, also involving nose (s/p mercado tx) CVA (cerebral vascular accident) punctate right occipital lobe lacunar infarct - MRI 07/29/23 Dry gangrene Anemia Septic shock august 2023 (involving ICU care, w/pressor support and mechanical ventilation)>[facility]; per H&P-"pt tx aggresively w/IV blood pressure support and mech. ventilation. sepsis due to complicated UTI and bacteremia w/klebsiella pneumoniae, tx primarily w/IV cefepime. due to her severe sepsis and need for IV pressor, developed acrocyanosis/gangrene to all 4 extremities as well as distal nose. 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/gangrene" Complicated urinary tract infection Hydronephrosis due to obstruction of ureter hx Closed fracture of left distal radius and ulna hx History of COVID-19 07/2023, [facility], hospitalized 07/26/23-08/21/23 History of colon polyps Anxiety Surgical History S/P cystoscopy with ureteral stent placement 09/05/23>w/ureteroscopy and stone extraction, stent exchange; stent removed 09/09/23 History of colonoscopy History of hysterectomy History of tonsillectomy Family History Grandmother Family history of diabetes mellitus Family history of colon cancer Grandfather Family history of colon cancer Aunt Family history of colon cancer Uncle Family history of colon cancer Social History Smoking Status: Former smoker Tobacco Type: Cigarettes Second Hand Exposure: No; Do You Dip or Chew Tobacco: No; Hx Alcohol Use: No Hx Substance Use: No Preferred Language: Lithuanian Communication Ability: Effective Bulk Driver Required: No Beliefs That Will Affect Care: None Current Living Situation: [facility] Current Living Situation Comment: [facility] Feels Safe at Home: Yes Assistive Devices: Wheelchair Review of Systems Review of Systems: All systems reviewed & are unremarkable except as noted in HPI & below Physical Exam Physical Exam: General: no acute distress, chronically ill appearing elderly female Head: normocephalic, atraumatic Eyes: conjunctiva non-injected, anicteric ENT: normal inspection external ears, nose, mucous membranes moist Neck: supple, trachea midline Lungs: clear, no respiratory distress, no wheezing/rhonchi/rales CV: RRR, no pretibial edema Abd: normal BS, soft, non-tender Ext: no calf tenderness, RUE: +hand amputation, stump with leighton in place without any erythema or discharge. LUE: +left hand gangrene. RLE: +distal foot amputation with sutures in place with erythema of stump with slight yellow drainage noted on dressing with tenderness to palpation, no red streaking up leg. LLE: +distal foot amputation with stump with sutures in place without significant erythema and no noted drainage Neuro: A&O x 3, no focal deficits noted, normal affect Skin: as above in extremities, otherwise skin warm, dry Results & Data Results & Data Vital Signs (Past 12 Hours) Vital Signs Temp Pulse Resp BP Pulse Ox O2 Del Method 12/27/23 15:42 78 18 12/27/23 15:30 80 15 125/71 92 Room Air 12/27/23 15:18 79 18 12/27/23 15:15 79 18 132/58 L 12/27/23 15:00 81 19 134/62 12/27/23 13:30 85 12/27/23 12:11 36.0 C L 85 14 122/69 96 Room Air Laboratory Results Short CBC 12/27/23 Range/Units 12:55 WBC 11.25 H (4.8-10.8) K/ul Hgb 10.5 L (12.0-16.0) g/dl Hct 33.3 L (37.0-47.0) % Plt Count 408 H (130-400) K/uL BMP 12/27/23 12:55 Sodium 134 L Potassium 4.4 Chloride 99 Carbon Dioxide 29 BUN 9 Creatinine 0.55 L Glucose 144 H Calcium 10.2 Liver Function 12/27/23 Range/Units 12:55 Total Bilirubin 0.3 (0.2-1.0) mg/dl Direct Bilirubin 0.1 (0-0.2) mg/dl AST 11 L (13-39) U/L ALT 7 (7-52) U/L Alkaline Phosphatase 64 (34-104) U/L Albumin 3.5 (3.4-5.0) gm/dl Diagnostic Findings Chest X-Ray 12/27/23 12:20 SINGLE VIEW CHEST CLINICAL HISTORY: Sepsis. FINDINGS: 2 AP, portable, upright chest radiographs are compared to chest x-ray and chest CT dated 08/25/2023. The heart is mildly enlarged noting atherosclerotic calcification of the thoracic aorta. The pulmonary vasculature is noncongested. Emphysema and chronic interstitial thickening is somewhat previous. There is bibasilar scarring/atelectasis. No airspace consolidation or pleural effusion is identified. No pneumothorax is seen. The skeletal structures are osteopenic. The bony thorax is grossly intact. IMPRESSION: Cardiomegaly and emphysema with no active disease in the chest. ACT 112: Negative or not required by law. Electronically signed by: Pravin Nguyen M.D. 12/27/2023 12:51 PM Foot X-Ray 12/27/23 14:02 XR foot RT 2V CLINICAL HISTORY: foot wound; r/o free air TECHNIQUE: 3 views of the right foot were obtained. Comparison: None available at the time of this dictation. FINDINGS: Redemonstration of amputation at the right midfoot. No definite focal bony erosions. Soft tissue swelling is suggested. IMPRESSION: Soft tissue swelling is partially visualized. No definite erosions are seen. ACT 112: Negative or not required by law. Electronically signed by: Jomar Palomo M.D. 12/27/2023 2:43 PM Supervising Physician Co-Signing Physician Notes Patient was seen and examined independently at bedside. Chart reviewed. Case discussed with Brenda JACOBSON and agree with the documentation above. In summary, this is a 73 year old female with multiple medical problems as above sent by Dr Rod for right foot wound infection with ESBL E coli, for IV antibiotics and wound care. Wound clx show ESBL Ecoli and pansensitive Staph aureus both sensitive to ertapenem. Will start on iv ertapenem daily, wound care, IV antibiotics, CM consult. On exam, lying in bed, comfortable no acute distress on room air, chest clear, heart sounds normal, abd benign. Right wrist amputation with suture which will be removed by ortho tomorrow. Left fingers dry gangrene since July, which family says is from septic shock and DIC and is stable. Right ankle amputation with wound with discharge and sutures. Left ankle amputation site with sutures. Patient was on coumadin which was switched to Xarelto but had been held due to GI bleeding due to AVMs requiring transfusion and also due to intermittent surgeries, it seems she is currently not on that. Per recent Gi note, she is at higher risk of rebleeding. Discussed about her PAF and the risk benefit of anticoagulation- her risk of stroke vs the risk of bleeding. Patient is undecided for now whether she would like to resume xarelto- hence will hold xarelto and put on sc lovenox for DVT ppx. Need to follow up on her decision on xarelto. Rest as per the note above. 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
[2023-12-27] MEDS: DAPTOmycin 350 MG in SYRINGE 0 ML IV SCH (16:12)
[2023-12-27] MEDS: SODIUM CHLORIDE 0.9% 1,000 ML IV SCH (20:02)
[2023-12-27] MEDS ORDERED: GLUCOSE 40% GEL 15 GM TUBE PO PRN (21:51)
[2023-12-27] MEDS ORDERED: CARBOHYDRATES FOR HYPOGLYCEMIA PO PRN (21:51)
[2023-12-27] MEDS ORDERED: POVIDONE IODINE 10% SCH (21:51)
[2023-12-27] MEDS ORDERED: GLUCAGON FOR INJ 1 MG VIAL SQ PRN (21:51)
[2023-12-27] MEDS ORDERED: POLYETHYLENE (MIRALAX) 17 GM PACK PO PRN (21:51)
[2023-12-27] MEDS ORDERED: DEXTROSE 50% 50 ML SYRINGE IV PRN (21:51)
[2023-12-27] MEDS ORDERED: ONDANSETRON INJ 2 MG/ML 2 ML VIAL IV PRN (21:51)
[2023-12-27] MEDS ORDERED: GLUCOSE 10 TAB/TUBE PO PRN (21:51)
[2023-12-27] MEDS ORDERED: MELATONIN 3 MG TAB PO PRN (21:51)
[2023-12-27] MEDS: ENOXAPARIN INJ 40 MG/0.4 ML SYR SQ SCH (22:50)
[2023-12-27] MEDS: ATORVASTATIN 40 MG TAB PO SCH (22:50)
[2023-12-27] MEDS: PANTOprazole 40 MG TAB PO SCH (22:50)
[2023-12-27] MEDS: INSULIN ASPART PER UNIT CHARGE SC SCH (22:51)
[2023-12-27] MEDS: DIGOXIN 0.125 MG TAB PO SCH (22:51)
[2023-12-27] MEDS: TAMSULOSIN HCL 0.4 MG CAP PO SCH (22:51)
[2023-12-27] MEDS: ERTAPENEM SODIUM 1,000 MG in SYRINGE 0 ML IV SCH (22:53)
[2023-12-28 06:59] LABS: Basophils # (auto) 0.04 K/uL (0.00-0.20); Basophils % (auto) 0.4 %; Eosinophils # (auto) 0.09 K/uL (0.00-0.50); Eosinophils % (auto) 0.9 %; Hematocrit (blood only) 26.9 % (37.0-47.0); Hemoglobin 8.7 g/dl (12.0-16.0); Immature Granulocytes # (auto) 0.11 K/uL (0.01-0.20); Immature Granulocytes % (auto) 1.1 %; Lymphocytes # (auto) 1.61 K/uL (1.20-3.40); Lymphocytes % (auto) 16.4 %; Mean Corpuscular Hemoglobin 26.2 pg (25.0-34.0); Mean Corpuscular Hgb Conc 32.3 g/dL (32.0-36.0); Mean Platelet Volume 8.6 fL (9.4-12.4); Monocytes # (auto) 0.62 K/uL (0.11-0.59); Monocytes % (auto) 6.3 %; Neutrophils # (auto) 7.36 K/uL (1.40-6.50); Neutrophils % (auto) 74.9 %; Platelet Count 331 K/uL (130-400); RDW Coefficient of Variation 17.2 % (11.5-14.5); RDW Standard Deviation 51.1 fL (36.4-46.3); Red Blood Count 3.32 M/uL (4.20-5.40); White Blood Count 9.83 K/ul (4.8-10.8)
[2023-12-28 07:31] LABS: BUN Creatinine Ratio 14.6 (10-20); Calcium 7.8 mg/dl (8.6-10.3); Creatinine Clr Calc Pharmacy 97.7 ml/min; Est GFR (African American) 112.8 ml/min; Est GFR (Non-African American) 97.3 ml/min; Magnesium 1.6 mg/dl (1.7-2.4); Potassium 3.8 mmol/L (3.5-5.1)
--- NOTE | 2023-12-28 07:54 | Electrocardiogram Report ---
Test Reason : Blood Pressure : / mmHG Vent. Rate : 081 BPM Atrial Rate : 081 BPM P-R Int : 172 ms QRS Dur : 070 ms QT Int : 338 ms P-R-T Axes : 072 046 021 degrees QTc Int : 392 ms Normal sinus rhythm Low voltage QRS Nonspecific ST abnormality Abnormal ECG When compared with ECG of 25-AUG-2023 14:11, Nonspecific T wave abnormality now evident in Inferior leads Nonspecific T wave abnormality no longer evident in Lateral leads Confirmed by Jose R Kerns ([id number]) on 12/28/2023 7:54:39 AM Referred By: REFERRED SELF Confirmed By:Jose R Kerns
[2023-12-28] MEDS: MICONAZOLE NITRATE POWDER 85 GM EXT SCH (08:43)
[2023-12-28] MEDS: dilTIAZem HCL 180 MG CAPCR PO SCH (08:43)
[2023-12-28] MEDS: CALCIUM 600MG + VIT D 400 IU TAB PO SCH (08:43)
[2023-12-28] MEDS: MAGNESIUM OXIDE 400 MG TAB PO SCH (08:43)
[2023-12-28] MEDS: CYANOCOBALAMIN (B-12) 500 MCG TABLET PO SCH (08:43)
[2023-12-28] MEDS: VENLAFAXINE HCL XR 150 MG CAPXR PO SCH (08:43)
[2023-12-28] MEDS: SACCHAROMYCES BOULARDII 250 MG CAP PO SCH (08:43)
[2023-12-28] MEDS: MAGNESIUM SULFATE / D5W 1 GM/100 ML BAG IV ONE (08:49)
--- NOTE | 2023-12-28 09:11 | Orthopedic Consultation ---
Date of Consultation December 28, 2023 Assessment & Plan (1) Dry gangrene: In regard to her upper extremities, she is doing well. Her right upper extremity is healing appropriately. Nursing may remove the sutures and apply Steri-Strips. She does not require additional dressing or treatment for the right upper extremity. When her medical condition stabilizes and her infection resolves I would consider amputation of the left upper extremity. I would not anticipate this to be done at the current hospitalization given the infection. She may follow-up with me upon discharge at [facility] in [place]. Orthopedics will sign off. History of Present Illness Reason for Consultation: Status post right hand amputation, left hand gangrene Requesting Physician: Hospitalist Attending Physician: Anton Chew MD History of Present Illness This is a female well-known to me. She is approximately 4 weeks status post amputation of the right hand due to gangrene. She canceled her follow-up visit with me postoperatively due to being admitted for GI bleed. She is currently readmitted for right foot infection and is cared for with podiatry for the foot. Allergies Allergy/AdvReac Type Severity Reaction Status Date / Time No Known Allergies Allergy Verified 12/04/23 15:14 Home Medications Medication Instructions Recorded Confirmed Type acetaminophen 325 mg tablet 650 mg (2 x 325 mg) PO Q6H PRN 09/10/23 12/27/23 Rx (Tylenol) FEVER >100/PAIN #30 tabs atorvastatin 40 mg tablet 40 mg PO HS #30 tabs 09/10/23 12/27/23 Rx cyanocobalamin (vitamin B-12) 1,000 mcg PO QAM #30 tabs 09/10/23 12/27/23 Rx 1,000 mcg tablet digoxin 125 mcg (0.125 mg) tablet 0.125 mg PO HS #30 tabs 09/10/23 12/27/23 Rx (Digitek) diltiazem HCl 180 mg 180 mg PO QAM #30 caps 09/10/23 12/27/23 Rx capsule,extended release 24 hr magnesium oxide 400 mg (241.3 mg 400 mg PO QAM #60 tabs 09/10/23 12/27/23 Rx magnesium) tablet melatonin 3 mg tablet 3 mg PO HS PRN sleep #30 tabs 09/10/23 12/27/23 Rx metformin 1,000 mg tablet 1,000 mg PO BIDWMEAL #60 tabs 09/10/23 12/27/23 Rx tamsulosin 0.4 mg capsule 0.4 mg PO HS #30 caps 09/10/23 12/27/23 Rx Saccharomyces boulardii 250 mg 250 mg PO QAM 10/14/23 12/27/23 History capsule (Florastor) alendronate 70 mg tablet (Fosamax) 70 mg PO WK 10/14/23 12/27/23 History bisacodyl 10 mg rectal suppository 10 mg OK UD PRN Constipation 10/14/23 12/27/23 History (Dulcolax (bisacodyl)) calcium carbonate 500 mg-vitamin 1 tab PO QAM 10/14/23 12/27/23 History D3 5 mcg (200 unit) tablet (Calcium 500 + D) magnesium hydroxide 400 mg/5 mL 2,400 mg PO UD PRN Constipation 10/14/23 12/27/23 History oral suspension ondansetron HCl 4 mg tablet 4 mg PO Q6H PRN Nausea 10/14/23 12/27/23 History pantoprazole 40 mg tablet,delayed 40 mg PO BID 10/14/23 12/27/23 History release sodium phosphates 19 gram-7 118 ml OK UD PRN Constipation 10/14/23 12/27/23 History gram/118 mL enema (Fleet Enema) venlafaxine 150 mg 150 mg PO QAM 10/14/23 12/27/23 History capsule,extended release 24 hr cephalexin 500 mg capsule 500 mg PO BID 12/27/23 12/27/23 History povidone-iodine 10 % topical See Rx Instructions .Route .COMPLEX 12/27/23 12/27/23 History solution (Betadine) Patient History Medical History Encounter for pre-operative examination Carotid artery stenosis Moderate LEFT ICA stenosis, possible high risk, ulcerative plaque in this location. There is streak artifact from the calcium and patient motion limiting evaluation. History of upper gastrointestinal bleeding 07/2023 Non-occlusive thrombus right internal jugular vein Cognitive communication deficit in setting of encephalopathy Dysphagia, oral phase denies choking, denies specialized diet at this time Muscle weakness (generalized) Difficulty in walking, not elsewhere classified Urinary tract infection, site not specified Klebsiella pneumoniae [k. 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 ventilation. sepsis due to complicated UTI and bacteremia w/klebsiella pneumoniae, tx primarily w/IV cefepime. due to her severe sepsis and need for IV pressor, developed acrocyanosis/gangrene to all 4 extremities as well as distal nose. 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/gangrene" Complicated urinary tract infection Hydronephrosis due to obstruction of ureter hx Closed fracture of left distal radius and ulna hx History of COVID-19 07/2023, [facility], hospitalized 07/26/23-08/21/23 History of colon polyps Anxiety Surgical History S/P cystoscopy with ureteral stent placement 09/05/23>w/ureteroscopy and stone extraction, stent exchange; stent removed 09/09/23 History of colonoscopy History of hysterectomy History of tonsillectomy Family History Grandmother Family history of diabetes mellitus Family history of colon cancer Grandfather Family history of colon cancer Aunt Family history of colon cancer Uncle Family history of colon cancer Social History Smoking Status: Former smoker Tobacco Type: Cigarettes Second Hand Exposure: No; Do You Dip or Chew Tobacco: No; Hx Alcohol Use: No Hx Substance Use: No Preferred Language: Danish Communication Ability: Effective General Assembler Required: No Beliefs That Will Affect Care: None Current Living Situation: Personal Care Facility Current Living Situation Comment: [facility] Feels Safe at Home: Yes Safety Concerns: Feels Safe At This Time Assistive Devices: Wheelchair Physical Exam Musculoskeletal: Right upper extremity exam: She has a well-healed incision without evidence of infection. She has very minimal if any swelling in the right upper extremity. Her amputation site from wrist disarticulation is healing well. Left upper extremity exam: She has well-demarcated gangrene at about the distal 4/5 of the hand. There is no active evidence of infection in the left upper extremity, and gangrene is dry. Results & Data Vital Signs (Past 12 Hours) Vital Signs Temp Pulse Pulse Resp BP Pulse Ox O2 Del Method 12/28/23 07:35 67 12/28/23 07:30 36.7 C 82 17 158/70 H 95 Room Air 12/28/23 04:14 36.9 C 82 20 145/70 H 95 Room Air 12/27/23 22:51 79 12/27/23 22:31 79 12/27/23 22:30 Room Air 12/27/23 21:54 36.7 C 81 20 128/74 95 Room Air 12/27/23 21:32 Room Air
[2023-12-28 13:15] LABS: A calco-baum cmplx NotReported Not Detected (NotDetected); Bact fragilis Not Reported Not Detected (NotDetected); Blood Culture Id Panel See PCR Comment (NotDetected); C auris Not Reported Not Detected (NotDetected); Calbicans Not Reported Not Detected (NotDetected); Candida glabrata Not Reported Not Detected (NotDetected); Candida krusei Not Reported Not Detected (NotDetected); Cneoformans/gatti Not Reported Not Detected (NotDetected); Cparapsilosis Not Reported Not Detected (NotDetected); E cloacae compx Not Reported Not Detected (NotDetected); Efaecalis Not Reported Not Detected (NotDetected); Efaecium Not Reported Not Detected (NotDetected); Enterobacterales Not Reported Not Detected (NotDetected); Escherichia coli Not Reported Not Detected (NotDetected); H influenzae Not Reported Not Detected (NotDetected); K aerogenes Not Reported Not Detected (NotDetected); Koxytoca Not Reported Not Detected (NotDetected); Kpneumoniae grp Not Reported Not Detected (NotDetected); Lmonocyt Not Reported Not Detected (NotDetected); N meningitidis Not Reported Not Detected (NotDetected); P aeruginosa Not Reported Not Detected (NotDetected); Proteus spp Not Reported Not Detected (NotDetected); Salmonella spp Not Reported Not Detected (NotDetected); Staph lugdunensis Not Reported Not Detected (NotDetected); Staph spp. Not Reported DETECTED (NotDetected); Staphaureus Not Reported Not Detected (NotDetected); Staphepi Not Reported DETECTED (NotDetected); Stenmaltophilia Not Reported Not Detected (NotDetected); Strep agal(GrpB) Not Reported Not Detected (NotDetected); Strep pneum Not Reported Not Detected (NotDetected); Strep pyog (GrpA) Not Reported Not Detected (NotDetected); Strep spp Not Reported Not Detected (NotDetected)
[2023-12-28 13:21] LABS: Staphylococcus epidermidis DETECTED (NotDetected); mecAC Resistant Gene DETECTED (NotDetected)
[2023-12-28] MEDS: DAPTOmycin 350 MG in SYRINGE 0 ML IV SCH (14:07)
--- NOTE | 2023-12-28 14:40 | Hospitalist Progress Note ---
Date of Service December 28, 2023 Assessment & Plan (1) Wound, open, foot with complication: (2) Elevated lactic acid level: Plan: Patient is a 73 year old F with complex history, PMH atrial fibrillation, DM II, HTN, dyslipidemia, history of hepatitis C s/p treatment, B12 deficiency, osteoporosis, extremity gangrene, GI bleed and others listed below presented to ER at request of adult specialist, Dr Rod for Right foot wound infection. S/P right foot amputation by Dr. Rod at [facility] on 12/20/23. 12/20/23 deep wound culture + ESBL sensitive to ertapenem, gentamicin, Zosyn, tobramycin, + staff aureus resistant to clindamycin otherwise pansensitive. Seen in podiatry clinic on 12/27/[address] Rod who concern for right wound infection and wound dehiscence. Right foot Wound Infection Abnormal blood cultures H/O ESBL --Foot X ray:Soft tissue swelling is partially visualized. No definite erosions are seen. -- Blood culture: 07/04 growing gram-positive cocci in clusters --Right foot wound cultures pending --Admitting team spoke with adult specialist Dr Rod on phone who feels area does not require debridement or surgical intervention at this time and IV antibiotics and wound care should be attempted first with plan to return to podiatry clinic for further follow up. He recommended twice daily dressing changes to right foot stump with 4 x 4's with gentle application of Dakin's solution with Kerlix over top Empirically on ertapenem, daptomycin Continue local wound care Needs follow-up with podiatry on discharge Left Foot Wound H/O left foot gangrene s/p left transmetatarsal amputation of her foot by Dr Rod at [facility] 12/20/23 had further debridement and surgery for wound dehiscence by Dr Rod at [facility]. Area with sutures in place and currently does not appear acutely cellulitic Continue daily dressing changes Needs follow up with Dr Rod for suture removal and continued care (3) Gangrene: Plan: H/O gangrene all 4 distal extremities S/P right wrist amputation by Dr. Lay on 11/12/2023 Appreciate orthopedics input Patient also will require amputation of left hand gangrene eventually (4) Hypomagnesemia: Plan: Replace and monitor (5) Atrial fibrillation: Plan: Previous anticoagulated on Xarelto Xarelto has been held on 11/30/23 as developed GI bleed. Was planned to restart Xarelto on 12/10/23 after discharge however has been held at [facility] Current sinus rhythm Continue digoxin, diltiazem Discussed with patient regarding risks Vs of using Xarelto. Patient agrees to be restarted on Xarelto. Consider switching Xarelto to Eliquis Given drop in hemoglobin, will hold restarting Xarelto/Eliquis today Hemoglobin drop likely dilutional secondary to IV fluids No obvious bleeding issues currently Will continue SQ heparin for now for anticoagulation (6) Type 2 diabetes mellitus: Plan: A1c: 6.4 on 10/13/23 Hold home oral agents Novolog sliding scale per protocol (7) HTN (hypertension): Plan: Continue diltiazem (8) Dyslipidemia: Plan: Hold statin while on daptomycin (9) Duodenal arteriovenous malformation: Plan: History GI bleed with hospitalization at [facility] 12/04/2023- 12/09/23 with EGD consistent with duodenal AV malformation S/P Cautery and GI recommended Protonix BID Denies melena, hematochezia, abdominal pain Continue PPI DVT Px Heparin SQ for now Code Status Full Code Admission and Anticipated Discharge Date Admission Date: December 27, 2023 Subjective Patient is seen and examined at bedside Right upper extremity stump leighton removed this morning Patient denies any pain of extremities Also denies any chest pain, dyspnea, nausea, vomiting, abdominal pain No other complaints Review of Systems Review of Systems: All systems reviewed & are unremarkable except as noted in Subjective Physical Exam Physical Exam: Physical Exam: Vitals signs as noted above General Appearance:Thin, no apparent distress, Chronic ill appearing Head: normocephalic, Atraumatic Eyes: normal inspection, EOMI Neck: supple, Trachea midline Respiratory/Chest: Normal breath sounds, CTA, No accessory muscle use Cardiovascular: S1, S2, No murmur Abdomen/GI:Soft, Non tender, Bowel sounds present Extremities/Musculoskeletal:normal inspection, +R hand amputation/stump , L hand gangrene, N/L Foot amputation in dressing Neurologic/Psych:AAOX3, grossly no focal neurological deficits Skin: normal color, warm Results & Data Results & Data Vital Signs (Past 12 Hours) Vital Signs Temp Pulse Pulse Resp BP Pulse Ox O2 Del Method 12/28/23 11:39 36.8 C 90 17 146/75 H 92 Room Air 12/28/23 07:35 67 12/28/23 07:30 36.7 C 82 17 158/70 H 95 Room Air 12/28/23 04:14 36.9 C 82 20 145/70 H 95 Room Air Laboratory Results Short CBC 12/28/23 Range/Units 06:32 WBC 9.83 (4.8-10.8) K/ul Hgb 8.7 L (12.0-16.0) g/dl Hct 26.9 L (37.0-47.0) % Plt Count 331 (130-400) K/uL BMP 12/28/23 06:32 Sodium 137 Potassium 3.8 Chloride 107 Carbon Dioxide 25 BUN 7 Creatinine 0.48 L Glucose 117 H Calcium 7.8 L D (6) Type 2 diabetes mellitus Diabetes mellitus chcf insulin use: without chcf use Diabetes mellitus complication status: with other specified complication Qualified Code(s): E11.69 - Type 2 diabetes mellitus with other specified complication (7) HTN (hypertension) Hypertension type: primary hypertension Qualified Code(s): I10 - Essential (primary) hypertension
[2023-12-28 17:33] LABS: Appearance Urine Clear (Clear); Bacteria Urine Automated None Seen (None Seen); Bilirubin Urine Negative (Negative); Blood Urine Negative (Negative); Cast Urine Automated 0-2 /lpf (0-2); Color Urine Yellow; Epithelial Cell Urine Auto 0-2 /hpf (0-2); Glucose Urine UA Negative (Negative); Ketones Urine Negative (Negative); Leukocyte Esterase Urine Trace (Negative); Nitrite Urine Negative (Negative); Protein Urine Negative (Negative); RBC Urine Automated 0-2 /hpf (0-2); Specific Gravity Urine 1.012 (1.000-1.030); Urobilinogen Urine Negative (Negative); pH Urine >= 9.0 (4.5-7.5)
--- NOTE | 2023-12-28 18:06 | Electrocardiogram Report ---
Test Reason : Blood Pressure : / mmHG Vent. Rate : 087 BPM Atrial Rate : 087 BPM P-R Int : 154 ms QRS Dur : 080 ms QT Int : 348 ms P-R-T Axes : 067 050 038 degrees QTc Int : 418 ms Poor data quality, interpretation may be adversely affected Normal sinus rhythm Nonspecific ST abnormality Abnormal ECG When compared with ECG of 27-DEC-2023 18:13, No significant change was found Confirmed by Jose R Kerns ([id number]) on 12/28/2023 6:05:38 PM Referred By: REFERRED SELF Confirmed By:Jose R Kerns
[2023-12-28] MEDS ORDERED: RIVAROXABAN 20 MG TAB PO SCH (19:00)
[2023-12-28] MEDS: HEPARIN SOD 5,000 UNIT/0.5 ML VIAL SQ SCH (21:07)
[2023-12-29 06:26] LABS: Hematocrit (blood only) 29.2 % (37.0-47.0); Hemoglobin 9.4 g/dl (12.0-16.0); Mean Corpuscular Hemoglobin 26.1 pg (25.0-34.0); Mean Corpuscular Hgb Conc 32.2 g/dL (32.0-36.0); Mean Corpuscular Volume 81.1 fL (80.0-100.0); Mean Platelet Volume 8.5 fL (9.4-12.4); Platelet Count 340 K/uL (130-400); RDW Coefficient of Variation 17.3 % (11.5-14.5); RDW Standard Deviation 51.2 fL (36.4-46.3); White Blood Count 8.46 K/ul (4.8-10.8)
[2023-12-29 08:51] LABS: BUN Creatinine Ratio 19.1 (10-20); Calcium 8.3 mg/dl (8.6-10.3); Creatinine Clr Calc Pharmacy 99.8 ml/min; Est GFR (African American) 113.6 ml/min; Magnesium 1.7 mg/dl (1.7-2.4); Potassium 3.7 mmol/L (3.5-5.1)
--- NOTE | 2023-12-29 13:41 | Hospitalist Progress Note ---
Date of Service December 29, 2023 Assessment & Plan (1) Wound, open, foot with complication: (2) Elevated lactic acid level: Plan: Patient is a 73 year old F with complex history, PMH atrial fibrillation, DM II, HTN, dyslipidemia, history of hepatitis C s/p treatment, B12 deficiency, osteoporosis, extremity gangrene, GI bleed and others listed below presented to ER at request of lands resource manager, Dr Rod for Right foot wound infection. S/P right foot amputation by Dr. Rod at [facility] on 12/20/23. 12/20/23 deep wound culture + ESBL sensitive to ertapenem, gentamicin, Zosyn, tobramycin, + staff aureus resistant to clindamycin otherwise pansensitive. Seen in podiatry clinic on 12/27/[address] Rod who concern for right wound infection and wound dehiscence. Right foot Wound Infection Abnormal blood cultures H/O ESBL --Foot X ray:Soft tissue swelling is partially visualized. No definite erosions are seen. -- Blood culture: 07/04 growing coagulase-negative staph not Lugdunensis--likely contamination --Right foot wound culture: Staphylococcus species --Admitting team spoke with lands resource manager Dr Rod on phone who feels area does not require debridement or surgical intervention at this time and IV antibiotics and wound care should be attempted first with plan to return to podiatry clinic for further follow up. He recommended twice daily dressing changes to right foot stump with 4 x 4's with gentle application of Dakin's solution with Kerlix over top Continue ertapenem, daptomycin Continue local wound care Needs follow-up with podiatry on discharge Infectious disease consulted Left Foot Wound H/O left foot gangrene s/p left transmetatarsal amputation of her foot by Dr Rod at [facility] 12/20/23 had further debridement and surgery for wound dehiscence by Dr Rod at [facility]. Area with sutures in place and currently does not appear acutely cellulitic Continue daily dressing changes Needs follow up with Dr Rod for suture removal and continued care (3) Gangrene: Plan: H/O gangrene all 4 distal extremities S/P right wrist amputation by Dr. Lay on 11/12/2023 Appreciate orthopedics input Patient also will require amputation of left hand gangrene eventually (4) Hypomagnesemia: Plan: Replace and monitor (5) Atrial fibrillation: Plan: Previous anticoagulated on Xarelto Xarelto has been held on 11/30/23 as developed GI bleed. Was planned to restart Xarelto on 12/10/23 after discharge however has been held at [facility] Current sinus rhythm Continue digoxin, diltiazem Discussed with patient regarding risks Vs of using Xarelto. Patient agrees to be restarted on Xarelto. Consider switching Xarelto to Eliquis Given drop in hemoglobin, will hold restarting DOAC Hemoglobin drop likely dilutional secondary to IV fluids No obvious bleeding issues currently Will continue SQ heparin for now for anticoagulation Hb 9.4 today (6) Type 2 diabetes mellitus: Plan: A1c: 6.4 on 10/13/23 Hold home oral agents Novolog sliding scale per protocol (7) HTN (hypertension): Plan: Continue diltiazem (8) Dyslipidemia: Plan: Hold statin while on daptomycin (9) Duodenal arteriovenous malformation: Plan: History GI bleed with hospitalization at [facility] 12/04/2023- 12/09/23 with EGD consistent with duodenal AV malformation S/P Cautery and GI recommended Protonix BID Denies melena, hematochezia, abdominal pain Continue PPI DVT Px Heparin SQ for now Code Status Full Code Admission and Anticipated Discharge Date Admission Date: December 27, 2023 Subjective Patient is seen and examined at bedside Offers no new complaints Lying comfortably in bed during my encounter Denies any chest pain, dyspnea, nausea, vomiting, abdominal pain Review of Systems Review of Systems: All systems reviewed & are unremarkable except as noted in Subjective Physical Exam Physical Exam: Physical Exam: Vitals signs as noted above General Appearance:Thin, no apparent distress, Chronic ill appearing Head: normocephalic, Atraumatic Eyes: normal inspection, EOMI Neck: supple, Trachea midline Respiratory/Chest: Normal breath sounds, CTA, No accessory muscle use Cardiovascular: S1, S2, No murmur Abdomen/GI:Soft, Non tender, Bowel sounds present Extremities/Musculoskeletal:normal inspection, +R hand amputation/stump , L hand gangrene, N/L Foot amputation in dressing Neurologic/Psych:AAOX3, grossly no focal neurological deficits Skin: normal color, warm Results & Data Results & Data Vital Signs (Past 12 Hours) Vital Signs Temp Pulse Pulse Pulse Resp BP Pulse Ox 12/29/23 11:27 82 12/29/23 11:03 36.4 C L 75 18 146/67 H 95 12/29/23 08:13 36.8 C 76 17 150/79 H 100 12/29/23 08:00 82 12/29/23 04:17 36.6 C 84 16 157/74 H 93 O2 Del Method 12/29/23 11:27 12/29/23 11:03 Room Air 12/29/23 08:13 Room Air 12/29/23 08:00 12/29/23 04:17 Room Air Laboratory Results Short CBC 12/29/23 Range/Units 05:55 WBC 8.46 (4.8-10.8) K/ul Hgb 9.4 L (12.0-16.0) g/dl Hct 29.2 L (37.0-47.0) % Plt Count 340 (130-400) K/uL BMP 12/29/23 05:55 Sodium 136 Potassium 3.7 Chloride 105 Carbon Dioxide 23 BUN 9 Creatinine 0.47 L Glucose 136 H Calcium 8.3 L Cardiac Enzymes 12/29/23 Range/Units 05:55 Total Creatine Kinase 15 L (26-192) U/L Urine 12/28/23 Range/Units Unknown Urine Color Yellow Urine Appearance Clear (Clear) Urine pH >= 9.0 H (4.5-7.5) Ur Specific [place] 1.012 (1.000-1.030) Urine Protein Negative (Negative) Urine Glucose (UA) Negative (Negative) (6) Type 2 diabetes mellitus Diabetes mellitus terminal system operator insulin use: without terminal system operator use Diabetes mellitus complication status: with other specified complication Qualified Code(s): E11.69 - Type 2 diabetes mellitus with other specified complication (7) HTN (hypertension) Hypertension type: primary hypertension Qualified Code(s): I10 - Essential (primary) hypertension
[2023-12-30 06:52] LABS: Hematocrit (blood only) 29.5 % (37.0-47.0); Hemoglobin 9.6 g/dl (12.0-16.0); Mean Corpuscular Hemoglobin 26.2 pg (25.0-34.0); Mean Corpuscular Hgb Conc 32.5 g/dL (32.0-36.0); Mean Corpuscular Volume 80.6 fL (80.0-100.0); Mean Platelet Volume 8.5 fL (9.4-12.4); Platelet Count 351 K/uL (130-400); RDW Coefficient of Variation 17.2 % (11.5-14.5); RDW Standard Deviation 50.9 fL (36.4-46.3); Red Blood Count 3.66 M/uL (4.20-5.40); White Blood Count 7.99 K/ul (4.8-10.8)
[2023-12-30 10:41] LABS: Calcium 8.2 mg/dl (8.6-10.3); Magnesium 1.6 mg/dl (1.7-2.4); Potassium 3.6 mmol/L (3.5-5.1)
[2023-12-30 10:46] LABS: BUN Creatinine Ratio 22.2 (10-20); Creatinine Clr Calc Pharmacy 104.2 ml/min; Est GFR (African American) 115.2 ml/min; Est GFR (Non-African American) 99.4 ml/min
[2023-12-30] MEDS: DAKIN'S SOLN 0.125% QUARTER STRENGTH 473 ML BTL EXT SCH (10:59)
[2023-12-30] MEDS: MAGNESIUM SULFATE / D5W 1 GM/100 ML BAG IV ONE (12:06)
--- NOTE | 2023-12-30 15:02 | Hospitalist Progress Note ---
Date of Service December 30, 2023 Assessment & Plan (1) Wound, open, foot with complication: (2) Elevated lactic acid level: Plan: Patient is a 73 year old F with complex history, PMH atrial fibrillation, DM II, HTN, dyslipidemia, history of hepatitis C s/p treatment, B12 deficiency, osteoporosis, extremity gangrene, GI bleed and others listed below presented to ER at request of tractor mechanic helper, Dr Rod for Right foot wound infection. S/P right foot amputation by Dr. Rod at [facility] on 12/20/23. 12/20/23 deep wound culture + ESBL sensitive to ertapenem, gentamicin, Zosyn, tobramycin, + staff aureus resistant to clindamycin otherwise pansensitive. Seen in podiatry clinic on 12/27/[address] Rod who concern for right wound infection and wound dehiscence. Right foot Wound Infection Abnormal blood cultures H/O ESBL Postoperative wound infection with wound dehiscence in the right foot --Foot X ray:Soft tissue swelling is partially visualized. No definite erosions are seen. -- Blood culture: 07/04 growing coagulase-negative staph not Lugdunensis--likely contamination --Right foot wound culture: MSSA --Admitting team spoke with tractor mechanic helper Dr Rod on phone who feels area does not require debridement or surgical intervention at this time and IV antibiotics and wound care should be attempted first with plan to return to podiatry clinic for further follow up. He recommended twice daily dressing changes to right foot stump with 4 x 4's with gentle application of Dakin's solution with Kerlix over top Continue ertapenem, daptomycin Continue local wound care Needs follow-up with podiatry on discharge Infectious disease consulted--pending Input Remains afebrile Continue current IV antibiotics for now Left Foot Wound H/O left foot gangrene s/p left transmetatarsal amputation of her foot by Dr Rod at [facility] 12/20/23 had further debridement and surgery for wound dehiscence by Dr Rod at [facility]. Area with sutures in place and currently does not appear acutely cellulitic Continue daily dressing changes Needs follow up with Dr Rod for suture removal and continued care (3) Gangrene: Plan: H/O gangrene all 4 distal extremities S/P right wrist amputation by Dr. Lay on 11/12/2023 Appreciate orthopedics input Patient also will require amputation of left hand gangrene eventually (4) Hypomagnesemia: Plan: Replace and monitor (5) Atrial fibrillation: Plan: Previous anticoagulated on Xarelto Xarelto has been held on 11/30/23 as developed GI bleed. Was planned to restart Xarelto on 12/10/23 after discharge however has been held at [facility] Current sinus rhythm Continue digoxin, diltiazem Discussed with patient regarding risks Vs benefits of using Xarelto/Eliquis. Patient agrees to be started on Eliquis. Hemoglobin drop likely dilutional secondary to IV fluids No obvious bleeding issues currently Hb 9.6 today Started on Eliquis for anticoagulation as patient agrees with the plan Monitor CBC (6) Type 2 diabetes mellitus: Plan: A1c: 6.4 on 10/13/23 Hold home oral agents Novolog sliding scale per protocol (7) HTN (hypertension): Plan: Continue diltiazem (8) Dyslipidemia: Plan: Hold statin while on daptomycin (9) Duodenal arteriovenous malformation: Plan: History GI bleed with hospitalization at [facility] 12/04/2023- 12/09/23 with EGD consistent with duodenal AV malformation S/P Cautery and GI recommended Protonix BID Denies melena, hematochezia, abdominal pain Continue PPI DVT Px Eliquis Code Status Full Code Admission and Anticipated Discharge Date Admission Date: December 27, 2023 Subjective Patient is seen and examined at bedside States feeling well today Denies any chest pain, dyspnea, nausea, vomiting, abdominal pain Denies any pain in right foot wound Discussed in detail about anticoagulation Review of Systems Review of Systems: All systems reviewed & are unremarkable except as noted in Subjective Physical Exam Physical Exam: Physical Exam: Vitals signs as noted above General Appearance:Thin, no apparent distress, Chronic ill appearing Head: normocephalic, Atraumatic Eyes: normal inspection, EOMI Neck: supple, Trachea midline Respiratory/Chest: Normal breath sounds, CTA, No accessory muscle use Cardiovascular: S1, S2, No murmur Abdomen/GI:Soft, Non tender, Bowel sounds present Extremities/Musculoskeletal:normal inspection, +R hand amputation/stump , L hand gangrene, N/L Foot amputation in dressing Neurologic/Psych:AAOX3, grossly no focal neurological deficits Skin: normal color, warm Results & Data Results & Data Vital Signs (Past 12 Hours) Vital Signs Temp Pulse Pulse Resp BP Pulse Ox O2 Del Method 12/30/23 14:20 85 12/30/23 11:38 36.9 C 90 16 121/76 93 Room Air 12/30/23 11:29 Room Air 12/30/23 07:31 36.7 C 81 16 146/76 H 100 Room Air 12/30/23 05:30 80 12/30/23 03:59 36.8 C 84 18 149/76 H 98 Room Air Laboratory Results Short CBC 12/30/23 Range/Units 06:15 WBC 7.99 (4.8-10.8) K/ul Hgb 9.6 L (12.0-16.0) g/dl Hct 29.5 L (37.0-47.0) % Plt Count 351 (130-400) K/uL BMP 12/30/23 06:15 Sodium 137 Potassium 3.6 Chloride 105 Carbon Dioxide 26 BUN 10 Creatinine 0.45 L Glucose 125 H Calcium 8.2 L (6) Type 2 diabetes mellitus Diabetes mellitus shelter insulin use: without termite control servicer use Diabetes mellitus complication status: with other specified complication Qualified Code(s): E11.69 - Type 2 diabetes mellitus with other specified complication (7) HTN (hypertension) Hypertension type: primary hypertension Qualified Code(s): I10 - Essential (primary) hypertension
--- NOTE | 2023-12-30 17:32 | Infectious Disease Consult ---
Date of Service December 30, 2023 Telehealth Information I performed this visit using a real-time telehealth connection between my location and the patients location ([facility]). After connecting through interactive tele-video, patient was identified by name and date of and/or wristband check.Patient (or authorized healthcare client service representative) was informed that this was a telemedicine visit and it was being conducted confidentially over secure lines. My office door was closed and no one else was present in the room with me.Patient (or authorized healthcare client service representative) provided consent to proceed with the visit, expressed an understanding of privacy and security of the telemedicine visit, and gave permission to have a hospital client service representative in the room in order to assist with the visit and to conduct portions of the visit, as needed. I informed the patient (or authorized healthcare client service representative) that I reviewed their record and presented the opportunity for them to ask any questions regarding the visit today. The patient agreed to participate. Assessment & Plan (1) Amputation stump infection: (2) Dry gangrene: (3) Severe sepsis: Plan Based on the picture of the right foot TMA stump, I have concerns for wound healing with Wound Care and antibiotics alone. I would recommend surgical debridement to control the source along with IV antibiotics. The culture that was obtained from the foot was superficial and I am not sure we can rely on it at this point. Therefore, we have very limited data to help establish a definite diagnosis and to guide our antibiotic treatment. However, we might at least say that MRSA is less likely and I would recommend stopping IV daptomycin for now. Can continue on IV ertapenem; however, I would recommend obtaining further cultures during the next Wound Care visit. I would also recommend obtaining an MRI of the right foot. If the MRI is negative, I would likely treat as skin and soft tissue infection. Thank you for consulting Infectious Disease. We will continue to follow. History of Present Illness History of Present Illness Ms. Kelly is a 73-year-old woman with medical history of type 2 diabetes, HTN, dyslipidemia, atrial fibrillation, treated chronic hep C, osteoporosis and GI bleed who was admitted to [facility] on 12/26 per the request of her finished yarn examiner because of concern for left foot wound infection. She had a left foot transmetatarsal amputation at [facility] on 12/19 because of gangrene with deep wound culture growing ESBL organism. She was being seen by Podiatry in the clinic on the day of presentation and the finished yarn examiner was concerned about stump wound infection and thus, she was instructed to come to the emergency department for further management. On presentation, all of her vitals were within normal limits. Initial blood workup showed leukocytosis of 12.6 (ANC 9.5) and x-ray of the right foot showed soft tissue swelling with no other findings. Id team was consulted for further recommendations and to help guide antibiotic treatment. Allergies Allergy/AdvReac Type Severity Reaction Status Date / Time No Known Allergies Allergy Verified 12/04/23 15:14 Home Medications Medication Instructions Recorded Confirmed Type acetaminophen 325 mg tablet 650 mg (2 x 325 mg) PO Q6H PRN 09/10/23 12/27/23 Rx (Tylenol) FEVER >100/PAIN #30 tabs atorvastatin 40 mg tablet 40 mg PO HS #30 tabs 09/10/23 12/27/23 Rx cyanocobalamin (vitamin B-12) 1,000 mcg PO QAM #30 tabs 09/10/23 12/27/23 Rx 1,000 mcg tablet digoxin 125 mcg (0.125 mg) tablet 0.125 mg PO HS #30 tabs 09/10/23 12/27/23 Rx (Digitek) diltiazem HCl 180 mg 180 mg PO QAM #30 caps 09/10/23 12/27/23 Rx capsule,extended release 24 hr magnesium oxide 400 mg (241.3 mg 400 mg PO QAM #60 tabs 09/10/23 12/27/23 Rx magnesium) tablet melatonin 3 mg tablet 3 mg PO HS PRN sleep #30 tabs 09/10/23 12/27/23 Rx metformin 1,000 mg tablet 1,000 mg PO BIDWMEAL #60 tabs 09/10/23 12/27/23 Rx tamsulosin 0.4 mg capsule 0.4 mg PO HS #30 caps 09/10/23 12/27/23 Rx Saccharomyces boulardii 250 mg 250 mg PO QAM 10/14/23 12/27/23 History capsule (Florastor) alendronate 70 mg tablet (Fosamax) 70 mg PO WK 10/14/23 12/27/23 History bisacodyl 10 mg rectal suppository 10 mg GA UD PRN Constipation 10/14/23 12/27/23 History (Dulcolax (bisacodyl)) calcium carbonate 500 mg-vitamin 1 tab PO QAM 10/14/23 12/27/23 History D3 5 mcg (200 unit) tablet (Calcium 500 + D) magnesium hydroxide 400 mg/5 mL 2,400 mg PO UD PRN Constipation 10/14/23 12/27/23 History oral suspension ondansetron HCl 4 mg tablet 4 mg PO Q6H PRN Nausea 10/14/23 12/27/23 History pantoprazole 40 mg tablet,delayed 40 mg PO BID 10/14/23 12/27/23 History release sodium phosphates 19 gram-7 118 ml GA UD PRN Constipation 10/14/23 12/27/23 History gram/118 mL enema (Fleet Enema) venlafaxine 150 mg 150 mg PO QAM 10/14/23 12/27/23 History capsule,extended release 24 hr cephalexin 500 mg capsule 500 mg PO BID 12/27/23 12/27/23 History povidone-iodine 10 % topical See Rx Instructions .Route .COMPLEX 12/27/23 12/27/23 History solution (Betadine) Patient History Medical History Encounter for pre-operative examination Carotid artery stenosis Moderate LEFT ICA stenosis, possible high risk, ulcerative plaque in this location. There is streak artifact from the calcium and patient motion limiting evaluation. History of upper gastrointestinal bleeding 07/2023 Non-occlusive thrombus right internal jugular vein Cognitive communication deficit in setting of encephalopathy Dysphagia, oral phase denies choking, denies specialized diet at this time Muscle weakness (generalized) Difficulty in walking, not elsewhere classified Urinary tract infection, site not specified Klebsiella pneumoniae [k. 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 ventilation. sepsis due to complicated UTI and bacteremia w/klebsiella pneumoniae, tx primarily w/IV cefepime. due to her severe sepsis and need for IV pressor, developed acrocyanosis/gangrene to all 4 extremities as well as distal nose. 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/gangrene" Complicated urinary tract infection Hydronephrosis due to obstruction of ureter hx Closed fracture of left distal radius and ulna hx History of COVID-19 07/2023, [facility], hospitalized 07/26/23-08/21/23 History of colon polyps Anxiety Surgical History S/P cystoscopy with ureteral stent placement 09/05/23>w/ureteroscopy and stone extraction, stent exchange; stent removed 09/09/23 History of colonoscopy History of hysterectomy History of tonsillectomy Family History Grandmother Family history of diabetes mellitus Family history of colon cancer Grandfather Family history of colon cancer Aunt Family history of colon cancer Uncle Family history of colon cancer Social History Smoking Status: Former smoker Tobacco Type: Cigarettes Second Hand Exposure: No; Do You Dip or Chew Tobacco: No; Hx Alcohol Use: No Hx Substance Use: No Preferred Language: Faroese Communication Ability: Effective Metal Framer Required: No Beliefs That Will Affect Care: None Current Living Situation: Personal Care Facility Current Living Situation Comment: [facility] Feels Safe at Home: Yes Safety Concerns: Feels Safe At This Time Assistive Devices: Wheelchair Review of Systems Constitutional: no fever or chills Cardiovascular:no chest pain, or palpitations Respiratory:no shortness of breath, no cough Gastrointestinal:no abdominal pain or diarrhea Musculoskeletal: Rt foot stump drainage with no pain Results & Data Vital Signs (Past 12 Hours) Vital Signs Temp Pulse Pulse Resp BP Pulse Ox O2 Del Method 12/30/23 15:38 36.8 C 99 H 16 119/70 99 Room Air 12/30/23 14:20 85 12/30/23 11:38 36.9 C 90 16 121/76 93 Room Air 12/30/23 11:29 Room Air 12/30/23 07:31 36.7 C 81 16 146/76 H 100 Room Air 12/30/23 05:30 80 Laboratory Results Microbiology: 12/26: 1 of 4 bottles of blood culture growing coagulase-negative staph 12/26: Right foot superficial culture growing staph aureus (MSSA) Diagnostic Findings X-ray of the right foot on 12/26: Soft tissue swelling is partially visualized. No definite erosions are seen.
[2023-12-30] MEDS: APIXABAN 5 MG TABLET PO SCH (21:30)
--- NOTE | 2023-12-31 05:57 | Electrocardiogram Report ---
Test Reason : Blood Pressure : / mmHG Vent. Rate : 095 BPM Atrial Rate : 095 BPM P-R Int : 140 ms QRS Dur : 074 ms QT Int : 310 ms P-R-T Axes : 078 080 087 degrees QTc Int : 389 ms Normal sinus rhythm Nonspecific ST and T wave abnormality Abnormal ECG When compared with ECG of 25-AUG-2023 14:11, Nonspecific T wave abnormality now evident in Inferior leads Confirmed by Jose R Kerns ([id number]) on 12/31/2023 5:56:41 AM Referred By: REFERRED SELF Confirmed By:Jose R Kerns
[2023-12-31 07:50] LABS: Calcium 8.4 mg/dl (8.6-10.3); Magnesium 1.8 mg/dl (1.7-2.4); Potassium 3.6 mmol/L (3.5-5.1)
[2023-12-31 07:55] LABS: BUN Creatinine Ratio 20.8 (10-20); Creatinine Clr Calc Pharmacy 88.5 ml/min; Est GFR (African American) 109.2 ml/min; Est GFR (Non-African American) 94.2 ml/min
--- NOTE | 2023-12-31 15:41 | Hospitalist Progress Note ---
Date of Service December 31, 2023 Assessment & Plan (1) Wound, open, foot with complication: (2) Elevated lactic acid level: Plan: Patient is a 73 year old F with complex history, PMH atrial fibrillation, DM II, HTN, dyslipidemia, history of hepatitis C s/p treatment, B12 deficiency, osteoporosis, extremity gangrene, GI bleed and others listed below presented to ER at request of metal model maker, Dr Rod for Right foot wound infection. S/P right foot amputation by Dr. Rod at [facility] on 12/20/23. 12/20/23 deep wound culture + ESBL sensitive to ertapenem, gentamicin, Zosyn, tobramycin, + staff aureus resistant to clindamycin otherwise pansensitive. Seen in podiatry clinic on 12/27/[address] Rod who concern for right wound infection and wound dehiscence. Right foot Wound Infection Abnormal blood cultures H/O ESBL Postoperative wound infection with wound dehiscence in the right foot --Foot X ray:Soft tissue swelling is partially visualized. No definite erosions are seen. -- Blood culture: 07/04 growing coagulase-negative staph not Lugdunensis--likely contamination --Right foot wound culture: MSSA --Admitting team spoke with metal model maker Dr Rod on phone who feels area does not require debridement or surgical intervention at this time and IV antibiotics and wound care should be attempted first with plan to return to podiatry clinic for further follow up. He recommended twice daily dressing changes to right foot stump with 4 x 4's with gentle application of Dakin's solution with Kerlix over top Continue ertapenem, daptomycin Continue local wound care Appreciate ID input MRI right foot pending Will discuss with ID for final recommendations based on MRI results Needs follow-up with podiatry on discharge Left Foot Wound H/O left foot gangrene s/p left transmetatarsal amputation of her foot by Dr Rod at [facility] 12/20/23 had further debridement and surgery for wound dehiscence by Dr Rod at [facility]. Area with sutures in place and currently does not appear acutely cellulitic Continue daily dressing changes Needs follow up with Dr Rod for suture removal and continued care (3) Gangrene: Plan: H/O gangrene all 4 distal extremities S/P right wrist amputation by Dr. Lay on 11/12/2023 Appreciate orthopedics input Patient also will require amputation of left hand gangrene eventually (4) Hypomagnesemia: Plan: Replace and monitor (5) Atrial fibrillation: Plan: Previous anticoagulated on Xarelto Xarelto has been held on 11/30/23 as developed GI bleed. Was planned to restart Xarelto on 12/10/23 after discharge however has been held at [facility] Current sinus rhythm Continue digoxin, diltiazem Discussed with patient regarding risks Vs benefits of using Xarelto/Eliquis. Patient agrees to be started on Eliquis. Hemoglobin drop likely dilutional secondary to IV fluids No obvious bleeding issues currently Hb 9.6 Started on Eliquis for anticoagulation as patient agrees with the plan Monitor CBC (6) Type 2 diabetes mellitus: Plan: A1c: 6.4 on 10/13/23 Hold home oral agents Novolog sliding scale per protocol (7) HTN (hypertension): Plan: Continue diltiazem (8) Dyslipidemia: Plan: Hold statin while on daptomycin (9) Duodenal arteriovenous malformation: Plan: History GI bleed with hospitalization at [facility] 12/04/2023- 12/09/23 with EGD consistent with duodenal AV malformation S/P Cautery and GI recommended Protonix BID Denies melena, hematochezia, abdominal pain Continue PPI DVT Px Eliquis Code Status Full Code Admission and Anticipated Discharge Date Admission Date: December 27, 2023 Subjective Patient is seen and examined at bedside Offers no new complaints Family at bedside MRI right ankle pending Denies any chest pain, dyspnea, nausea, vomiting, abdominal pain, right foot pain Review of Systems Review of Systems: All systems reviewed & are unremarkable except as noted in Subjective Physical Exam Physical Exam: Physical Exam: Vitals signs as noted above General Appearance:Thin, no apparent distress, Chronic ill appearing Head: normocephalic, Atraumatic Eyes: normal inspection, EOMI Neck: supple, Trachea midline Respiratory/Chest: Normal breath sounds, CTA, No accessory muscle use Cardiovascular: S1, S2, No murmur Abdomen/GI:Soft, Non tender, Bowel sounds present Extremities/Musculoskeletal:normal inspection, +R hand amputation/stump , L hand gangrene, N/L Foot amputation in dressing Neurologic/Psych:AAOX3, grossly no focal neurological deficits Skin: normal color, warm Results & Data Results & Data Vital Signs (Past 12 Hours) Vital Signs Temp Pulse Pulse Resp BP Pulse Ox O2 Del Method 12/31/23 14:58 36.8 C 83 18 131/75 97 Room Air 12/31/23 11:42 36.8 C 84 16 114/72 97 Room Air 12/31/23 07:38 36.6 C 81 16 150/77 H 93 Room Air 12/31/23 05:54 81 12/31/23 03:54 36.8 C 89 16 151/75 H 95 Room Air Laboratory Results [facility] 12/31/23 06:07 Sodium 138 Potassium 3.6 Chloride 104 Carbon Dioxide 28 BUN 11 Creatinine 0.53 L Glucose 134 H Calcium 8.4 L (6) Type 2 diabetes mellitus Diabetes mellitus senior living insulin use: without senior living use Diabetes mellitus complication status: with other specified complication Qualified Code(s): E11.69 - Type 2 diabetes mellitus with other specified complication (7) HTN (hypertension) Hypertension type: primary hypertension Qualified Code(s): I10 - Essential (primary) hypertension
--- NOTE | 2023-12-31 19:01 | Magnetic Resonance Report ---
MR ankle RT wo con HISTORY: foot wound R/O Osteomyelitis TECHNIQUE: Multiplanar multisequence MRI of the right ankle was performed without contrast. COMPARISON STUDY: Right foot radiograph 12/19/2023. FINDINGS: Motion artifact results in suboptimal evaluation of the ankle and hindfoot. The patient is status post midfoot amputation at the level of the bases of the cuneiform bones. Abnormal marrow sign al within the residual cuboid bone and cuneiform bones is nonspecific and could be due to the recent amputation. A superimposed osteomyelitis would be impossible to exclude. There is soft tissue edema a t the amputation site. No loculated fluid collections on this noncontrast study to suggest an abscess . Multifocal areas of marrow signal abnormality seen throughout the majority of the residual bones wi thin the foot. These are consistent with bone infarcts. No evidence for articular collapse. No acute fracture or dislocation. No significant joint effusion within the ankle/hindfoot. The residual flexor , extensor, and peroneal tendons are intact. The visualized Achilles tendon is unremarkable. The medi al and lateral stabilizing ligaments of the ankle appear intact. Normal marrow signal intensity seen within the distal tibia and fibula with no erosive changes within the ankle to suggest an osteomyelit is. There is mild subcutaneous edema within the ankle and hindfoot. The residual proximal plantar fas lian is intact. There are a few punctate foci of susceptibility artifact within the soft tissues at th e amputation site. This favors a few small foci of soft tissue gas and suture material. Again, this c ould be due to recent postoperative change. A superimposed gas-forming organism would be difficult to exclude. IMPRESSION: 1. The patient is status post midfoot amputation at the level of the bases of the cuneiform bones. Ab normal marrow signal within the residual cuboid bone and cuneiform bones is nonspecific and could be due to the recent amputation. A superimposed osteomyelitis would be impossible to exclude. 2. There is soft tissue edema at the amputation site. No loculated fluid collections on this noncontr ast study to suggest an abscess. Multifocal areas of marrow signal abnormality seen throughout the ma jority of the residual bones within the foot. These are consistent with bone infarcts. 3. Multifocal areas of marrow signal abnormality seen throughout the majority of the residual bones w ithin the foot consistent with bone infarcts. 4. There are a few punctate foci of susceptibility artifact within the soft tissues at the amputation site. This favors a few small foci of soft tissue gas and suture material. Again, this could be due to recent postoperative change. A superimposed gas-forming organism would be difficult to exclude. ACT 112: Negative or not required by law. Electronically signed by: Moshe Lofton M.D. 12/31/2023 6:59 PM
[2024-01-01 06:29] LABS: Hematocrit (blood only) 28.9 % (37.0-47.0); Hemoglobin 9.4 g/dl (12.0-16.0); Mean Corpuscular Hemoglobin 26.3 pg (25.0-34.0); Mean Corpuscular Hgb Conc 32.5 g/dL (32.0-36.0); Mean Platelet Volume 8.9 fL (9.4-12.4); Platelet Count 351 K/uL (130-400); RDW Coefficient of Variation 17.6 % (11.5-14.5); RDW Standard Deviation 52.1 fL (36.4-46.3); Red Blood Count 3.57 M/uL (4.20-5.40); White Blood Count 7.26 K/ul (4.8-10.8)
[2024-01-01 06:34] LABS: BUN Creatinine Ratio 16.1 (10-20); Calcium 8.4 mg/dl (8.6-10.3); Creatinine Clr Calc Pharmacy 83.8 ml/min; Est GFR (African American) 107.2 ml/min; Est GFR (Non-African American) 92.5 ml/min; Potassium 3.7 mmol/L (3.5-5.1)
--- NOTE | 2024-01-01 15:37 | Hospitalist Progress Note ---
Date of Service January 01, 2024 Assessment & Plan (1) Wound, open, foot with complication: (2) Elevated lactic acid level: (3) Gangrene: (4) Hypomagnesemia: (5) Atrial fibrillation: (6) Type 2 diabetes mellitus: (7) HTN (hypertension): (8) Dyslipidemia: (9) Duodenal arteriovenous malformation: Plan Ms Kelly is a 73 year old F with complex history, PMH atrial fibrillation, DM II, HTN, dyslipidemia, history of hepatitis C s/p treatment, B12 deficiency, osteoporosis, extremity gangrene, GI bleed and others listed below presented to ER at request of sampler and test preparer, Dr Rod for Right foot wound infection. S/P right foot amputation by Dr. Rod at [facility] on 12/20/23. 12/20/23 deep wound culture + ESBL sensitive to ertapenem, gentamicin, Zosyn, tobramycin, + staff aureus resistant to clindamycin otherwise pansensitive. Seen in podiatry clinic on 12/27/[address] Rod who concern for right wound infection and wound dehiscence. Since admission, patient was evaluated by Ortho and ID. Ortho felt that the dry gangrene of upper extremities is stable and [place] [facility] [place] recommended MRI. MRI could not r/o OM. Recommended Podiatry to eval for debridement and deep wound culture. #Right foot surgical site infection POA #Abnormal blood cultures, likely contaminant #Prior ESBL #Postoperative wound infection Foot X ray:Soft tissue swelling is partially visualized. No definite erosions are seen. Blood culture: 07/04 growing coagulase-negative staph not Lugdunensis--likely contamination Right foot wound culture: MSSA Per prior hospitalist note"Admitting team spoke with sampler and test preparer Dr Rod on phone who feels area does not require debridement or surgical intervention at this time and IV antibiotics and wound care should be attempted first with plan to return to podiatry clinic for further follow up. He recommended twice daily dressing changes to right foot stump with 4 x 4's with gentle application of Dakin's solution with Kerlix over top" MRI unable to exclude OM ID on consult -Continue ertapenem -Discussed with Dr. Hodge over phone--given MRI findings and wound appearance, patient would benefit from debridement Consult placed to Podiatry #Left Foot Wound #H/O left foot gangrene s/p left transmetatarsal amputation of her foot by Dr Rod at [facility] 12/20/23 had further debridement and surgery for wound dehiscence by Dr Rod at [facility]. 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 Lay on 11/12/2023 Plan for OP follow up with [facility] #Hypomagnesmia Replace and monitor #Paroxysmal Atrial Fibrillation Previous anticoagulated on Xarelto Xarelto has been held on 11/30/23 as developed GI bleed. Was planned to restart Xarelto on 12/10/23 after discharge however has been held at [facility] Current sinus rhythm Continue digoxin, diltiazem Discussed with patient regarding risks Vs benefits of using Xarelto/Eliquis. Patient agrees to be started on Eliquis. Hemoglobin drop likely dilutional secondary to IV fluids No obvious bleeding issues currently Continue Eliquis Monitor CBC #DMTII A1c: 6.4 on 10/13/23 Hold home oral agents Novolog sliding scale per protocol #HTN Continue diltiazem #HLD Resume statin #Prior GIB #Hx of AVMs History GI bleed with hospitalization at [facility] 12/04/2023- 12/09/23 with EGD consistent with duodenal AV malformation S/P Cautery and GI recommended Protonix BID Denies melena, hematochezia, abdominal pain Continue PPI DVT Px Eliquis Dispo contingent on Podiatry consult and final ID recs Code Status Full Code Admission and Anticipated Discharge Date Admission Date: December 27, 2023 Subjective NAEO Discussed MRI findings with patient, verbalized understanding Denies fevers, chills; reports resolution of pain at site that was previously bothersome Physical Exam Constitutional: WD/WN, vitals as above Respiratory: normal respiratory effort, lungs clear to auscultation Cardiovascular: RRR, no murmur, no edema Musculoskeletal: right upper extremity stump with bandage in place, no strike through; left hand with dry gangrene, no surround erythema; bilateral lower extremities with clean kerlex bandages inplace Results & Data Results & Data Vital Signs (Past 12 Hours) Vital Signs Temp Pulse Pulse Resp BP Pulse Ox O2 Del Method 01/01/24 15:23 36.8 C 85 18 132/79 95 Room Air 01/01/24 11:39 36.8 C 82 17 130/73 96 Room Air 01/01/24 08:00 75 01/01/24 07:34 36.5 C 74 17 126/72 97 Room Air 01/01/24 04:21 36.5 C 80 20 150/74 H 96 Room Air Laboratory Results Short CBC 01/01/24 Range/Units 05:31 WBC 7.26 (4.8-10.8) K/ul Hgb 9.4 L (12.0-16.0) g/dl Hct 28.9 L (37.0-47.0) % Plt Count 351 (130-400) K/uL BMP 01/01/24 05:31 Sodium 138 Potassium 3.7 Chloride 104 Carbon Dioxide 27 BUN 9 Creatinine 0.56 L Glucose 129 H Calcium 8.4 L Medications Administered Home Medications Medication Instructions Recorded Confirmed Last Taken acetaminophen 325 mg tablet 650 mg (2 x 325 mg) PO Q6H PRN 09/10/23 12/27/23 11/06/23 05:15 (Tylenol) FEVER >100/PAIN #30 tabs atorvastatin 40 mg tablet 40 mg PO HS #30 tabs 09/10/23 12/27/23 11/10/23 cyanocobalamin (vitamin B-12) 1,000 mcg PO QAM #30 tabs 09/10/23 12/27/23 11/11/23 1,000 mcg tablet digoxin 125 mcg (0.125 mg) tablet 0.125 mg PO HS #30 tabs 09/10/23 12/27/23 11/10/23 (Digitek) diltiazem HCl 180 mg 180 mg PO QAM #30 caps 09/10/23 12/27/23 11/11/23 capsule,extended release 24 hr magnesium oxide 400 mg (241.3 mg 400 mg PO QAM #60 tabs 09/10/23 12/27/23 11/11/23 magnesium) tablet melatonin 3 mg tablet 3 mg PO HS PRN sleep #30 tabs 09/10/23 12/27/23 Unknown metformin 1,000 mg tablet 1,000 mg PO BIDWMEAL #60 tabs 09/10/23 12/27/23 11/11/23 08:30 tamsulosin 0.4 mg capsule 0.4 mg PO HS #30 caps 09/10/23 12/27/23 11/10/23 Saccharomyces boulardii 250 mg 250 mg PO QAM 10/14/23 12/27/23 11/11/23 capsule (Florastor) alendronate 70 mg tablet (Fosamax) 70 mg PO WK 10/14/23 12/27/23 11/11/23 bisacodyl 10 mg rectal suppository 10 mg IA UD PRN Constipation 10/14/23 12/27/23 Unknown (Dulcolax (bisacodyl)) calcium carbonate 500 mg-vitamin 1 tab PO QAM 10/14/23 12/27/23 11/11/23 D3 5 mcg (200 unit) tablet (Calcium 500 + D) magnesium hydroxide 400 mg/5 mL 2,400 mg PO UD PRN Constipation 10/14/23 12/27/23 Unknown oral suspension ondansetron HCl 4 mg tablet 4 mg PO Q6H PRN Nausea 10/14/23 12/27/23 Unknown pantoprazole 40 mg tablet,delayed 40 mg PO BID 10/14/23 12/27/23 11/11/23 08:30 release sodium phosphates 19 gram-7 118 ml IA UD PRN Constipation 10/14/23 12/27/23 Unknown gram/118 mL enema (Fleet Enema) venlafaxine 150 mg 150 mg PO QAM 10/14/23 12/27/23 11/11/23 capsule,extended release 24 hr cephalexin 500 mg capsule 500 mg PO BID 12/27/23 12/27/23 Unknown povidone-iodine 10 % topical See Rx Instructions .Route .COMPLEX 12/27/23 12/27/23 Unknown solution (Betadine) Active Medications Generic Name Dose Route Start Last Admin Trade Name Freq PRN Reason Stop Dose Admin Apixaban 5 mg 12/30/23 21:00 01/01/24 08:47 Apixaban 5 Mg Tablet PO 01/29/24 20:59 5 mg BID NILDA Administration Atorvastatin Calcium 40 mg 12/27/23 21:51 12/27/23 22:50 Atorvastatin 40 Mg Tab PO 01/26/24 21:50 40 mg HS NILDA Administration Calcium/Vitamin D 1 tab 12/28/23 09:00 01/01/24 08:47 Calcium 600mg + Vit D 400 Iu Tab PO 01/27/24 08:59 1 tab QAM NILDA Administration Cyanocobalamin 1,000 mcg 12/28/23 09:00 01/01/24 08:48 Cyanocobalamin (B-12) 500 Mcg Tablet PO 01/27/24 08:59 1,000 mcg QAM NILDA Administration Digoxin 0.125 mg 12/27/23 21:51 12/31/23 19:52 Digoxin 0.125 Mg Tab PO 01/26/24 21:50 0.125 mg HS NILDA Administration Diltiazem HCl 180 mg 12/28/23 09:00 01/01/24 08:48 Diltiazem Hcl 180 Mg Capcr PO 01/27/24 08:59 180 mg QAM NILDA Administration Ertapenem 1,000 mg/ Syringe 10 mls @ 2 mls/min 12/27/23 22:30 12/31/23 20:45 IV 01/03/24 22:29 2 mls/min Q24H NILDA Administration Insulin Aspart 0 units 12/27/23 21:51 01/01/24 12:52 Insulin Aspart Per Unit Charge SC 01/26/24 21:50 3 units ACHS NILDA Administration Magnesium Oxide 400 mg 12/28/23 09:00 01/01/24 08:48 Magnesium Oxide 400 Mg Tab PO 01/27/24 08:59 400 mg QAM NILDA Administration Miconazole Nitrate 1 appln 12/28/23 09:00 01/01/24 08:48 Miconazole Nitrate Powder 85 Gm EXT 01/27/24 08:59 1 appln BID NILDA Administration Pantoprazole Sodium 40 mg 12/27/23 21:51 01/01/24 08:47 Pantoprazole 40 Mg Tab PO 01/26/24 21:50 40 mg BID NILDA Administration Saccharomyces Boulardii 250 mg 12/28/23 09:00 01/01/24 08:47 Saccharomyces Boulardii 250 Mg Cap PO 01/27/24 08:59 250 mg QAM NILDA Administration Sodium Hypochlorite 1 appln 12/28/23 11:30 12/30/23 21:31 Dakin's Soln 0.125% Quarter Strength 473 Ml Btl EXT 01/27/24 11:29 1 appln UD NILDA Administration Tamsulosin HCl 0.4 mg 12/27/23 21:51 12/31/23 19:52 Tamsulosin Hcl 0.4 Mg Cap PO 01/26/24 21:50 0.4 mg HS NILDA Administration Venlafaxine HCl 150 mg 12/28/23 09:00 01/01/24 08:48 Venlafaxine Hcl Xr 150 Mg Capxr PO 01/27/24 08:59 150 mg QAM NILDA Administration (6) Type 2 diabetes mellitus Diabetes mellitus fdc insulin use: without lobsterman use Diabetes mellitus complication status: with other specified complication Qualified Code(s): E11.69 - Type 2 diabetes mellitus with other specified complication (7) HTN (hypertension) Hypertension type: primary hypertension Qualified Code(s): I10 - Essential (primary) hypertension
--- NOTE | 2024-01-01 22:29 | Podiatry Consultation ---
Date of Consultation January 01, 2024 Assessment & Plan (1) Amputation stump infection: (2) Wound, open, foot with complication: Encounter type: initial encounter Laterality: right Qualified Code(s): S91.301A - Unspecified open wound, right foot, initial encounter (3) Osteomyelitis of foot, right, acute: Plan patient was examined and evaluated. We discussed at length the etiology and treatment of this right foot surgical dehiscence and current infection. Without extensive her DIC has led to these necrotic changes, I am hard pressed to believe that a another surgical intervention for the right foot would be beneficial. Still, she would like to attempt limb salvage. To aid in this, the right foot would surely need debrided of necrotic nonviable tissue at this time as well as likely application of a wound VAC. Further, deep bone biopsies and deep bone cultures would allow for more adequate evaluation of the underlying pathology. These would be obtained surgically as well. I hesitate since surgical intervention is that the level of the amputation performed is not likely to lead to a viable limb. She will need further resection which will again make her stump less favorable. She would benefit more long-term from a more controlled below the knee amputation. This was discussed with and she is still leaning towards surgical debridement. We will work on getting this on schedule for Saturday with tomorrow being a holiday. If she worsens rapidly, we could still likely at around the surgical schedule tomorrow, though because she is currently stable she can avoid this as a emergent surgical procedure. If she elects to proceed with a higher-level amputation, we would recommend consulting general surgery, vascular surgery, or reconsult orthopedics. History of Present Illness Reason for Consultation: S/P b/l TMA, r/o further osteomyelitis Attending Physician: Radha Juarez MD History of Present Illness this patient is a 73-year-old female who presents with worsening infection to her right foot transmetatarsal amputation stump. She has had recent debridements and revisions to her bilateral feet. She has had extensive evidence of necrosis to her distal extremities, worsening since July. She states that this all began around July when she developed COVID-19 and subsequent sepsis with DIC. since then, she has had dry and wet gangrene of both hands and both feet. She has had transmetatarsal rotations with Dr. Rod most recently on the right foot up to one half weeks ago. She states she initially had more distal amputations which have not healed leading to this more recent amputation attempt. Further, she recently had a right wrist amputation because of extensive dry gangrene to her hand and now has equally extensive dry gangrene to the left hand distal to the wrist. She was sent here to the hospital from the wound care center with worsening evidence of osteomyelitis to the right foot. An MRI was obtained and revealed nonspecific findings of bone inflammation, which could not rule out osteomyelitis given her recent surgical intervention. She admits to some recent systemic signs of infection, especially given her recent bouts of osteomyelitis. She does admit to feeling better on this new, more recent hospitalization. She is still interested in limb salvage if possible to attempt to save the bilateral lower extremities. Allergies Allergy/AdvReac Type Severity Reaction Status Date / Time No Known Allergies Allergy Verified 12/04/23 15:14 Home Medications Medication Instructions Recorded Confirmed Type acetaminophen 325 mg tablet 650 mg (2 x 325 mg) PO Q6H PRN 09/10/23 12/27/23 Rx (Tylenol) FEVER >100/PAIN #30 tabs atorvastatin 40 mg tablet 40 mg PO HS #30 tabs 09/10/23 12/27/23 Rx cyanocobalamin (vitamin B-12) 1,000 mcg PO QAM #30 tabs 09/10/23 12/27/23 Rx 1,000 mcg tablet digoxin 125 mcg (0.125 mg) tablet 0.125 mg PO HS #30 tabs 09/10/23 12/27/23 Rx (Digitek) diltiazem HCl 180 mg 180 mg PO QAM #30 caps 09/10/23 12/27/23 Rx capsule,extended release 24 hr magnesium oxide 400 mg (241.3 mg 400 mg PO QAM #60 tabs 09/10/23 12/27/23 Rx magnesium) tablet melatonin 3 mg tablet 3 mg PO HS PRN sleep #30 tabs 09/10/23 12/27/23 Rx metformin 1,000 mg tablet 1,000 mg PO BIDWMEAL #60 tabs 09/10/23 12/27/23 Rx tamsulosin 0.4 mg capsule 0.4 mg PO HS #30 caps 09/10/23 12/27/23 Rx Saccharomyces boulardii 250 mg 250 mg PO QAM 10/14/23 12/27/23 History capsule (Florastor) alendronate 70 mg tablet (Fosamax) 70 mg PO WK 10/14/23 12/27/23 History bisacodyl 10 mg rectal suppository 10 mg IL UD PRN Constipation 10/14/23 12/27/23 History (Dulcolax (bisacodyl)) calcium carbonate 500 mg-vitamin 1 tab PO QAM 10/14/23 12/27/23 History D3 5 mcg (200 unit) tablet (Calcium 500 + D) magnesium hydroxide 400 mg/5 mL 2,400 mg PO UD PRN Constipation 10/14/23 12/27/23 History oral suspension ondansetron HCl 4 mg tablet 4 mg PO Q6H PRN Nausea 10/14/23 12/27/23 History pantoprazole 40 mg tablet,delayed 40 mg PO BID 10/14/23 12/27/23 History release sodium phosphates 19 gram-7 118 ml IL UD PRN Constipation 10/14/23 12/27/23 History gram/118 mL enema (Fleet Enema) venlafaxine 150 mg 150 mg PO QAM 10/14/23 12/27/23 History capsule,extended release 24 hr cephalexin 500 mg capsule 500 mg PO BID 12/27/23 12/27/23 History povidone-iodine 10 % topical See Rx Instructions .Route .COMPLEX 12/27/23 History solution (Betadine) Patient History Medical History Encounter for pre-operative examination Carotid artery stenosis Moderate LEFT ICA stenosis, possible high risk, ulcerative plaque in this location. There is streak artifact from the calcium and patient motion limiting evaluation. History of upper gastrointestinal bleeding 07/2023 Non-occlusive thrombus right internal jugular vein Cognitive communication deficit in setting of encephalopathy Dysphagia, oral phase denies choking, denies specialized diet at this time Muscle weakness (generalized) Difficulty in walking, not elsewhere classified Urinary tract infection, site not specified Klebsiella pneumoniae [k. 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 ventilation. sepsis due to complicated UTI and bacteremia w/klebsiella pneumoniae, tx primarily w/IV cefepime. due to her severe sepsis and need for IV pressor, developed acrocyanosis/gangrene to all 4 extremities as well as distal nose. 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/gangrene" Complicated urinary tract infection Hydronephrosis due to obstruction of ureter hx Closed fracture of left distal radius and ulna hx History of COVID-19 07/2023, [facility], hospitalized 07/26/23-08/21/23 History of colon polyps Anxiety Surgical History S/P cystoscopy with ureteral stent placement 09/05/23>w/ureteroscopy and stone extraction, stent exchange; stent removed 09/09/23 History of colonoscopy History of hysterectomy History of tonsillectomy Family History Grandmother Family history of diabetes mellitus Family history of colon cancer Grandfather Family history of colon cancer Aunt Family history of colon cancer Uncle Family history of colon cancer Social History Smoking Status: Former smoker Tobacco Type: Cigarettes Second Hand Exposure: No; Do You Dip or Chew Tobacco: No; Hx Alcohol Use: No Hx Substance Use: No Preferred Language: Indonesian Communication Ability: Effective Senior Trial Attorney Required: No Beliefs That Will Affect Care: None Current Living Situation: Personal Care Facility Current Living Situation Comment: [facility] Feels Safe at Home: Yes Safety Concerns: Feels Safe At This Time Assistive Devices: Wheelchair Review of Systems Review of Systems: All systems reviewed & are unremarkable except as noted in HPI & below Constitutional: + fever, + chills and + weakness; no fat igue Eyes: no problem reported Ear, Nose, Mouth, Throat: no problem reported Respiratory: no problem reported Cardiovascular: + edema and + claudication; no problem r eported Gastrointestinal: no nausea, no vomiting and no problem reported Genitourinary: no problem reported Musculoskeletal: no problem reported Integumentary: + non-healing lesions, + skin ulcer, + w ounds and + erythema necrosis to the bilateral foot and hands Neurologic: + loss of sensation, + numbness and + pa resthesia; no generalized weakness Psychiatric: no problem reported Physical Exam Physical Exam: lower extremity focused exam: DP/PT pulses nonpalpable bilaterally. Bilateral transmetatarsal limitations are appreciated, more distally on the left with the right being more of a [place] level amputation. There is significant fibrotic slough overlying the dehiscence of the right amputation stump. The left foot is more healed with no current dehiscence noted. There are sutures intact to both amputation sites with the left intact due to their continued tension and the majority of the right sutures removed today due to offering no further assistance in healing across this distance. There is a soupy purulence noted to the right foot amputation site with no ascending erythema. There is significant edema noted bilaterally as well. Pain is intact to the bilateral lower extremity with pain on bedside debridement and suture removal. Constitutional: WD/WN, vitals as above + ill appearing and + obese; no acute distress Eyes: PERRL, conjunctivae normal, anicteric sclerae ENMT: external ear and nose normal, oropharynx normal Nose: + external nose abnormality Neck: trachea midline, no thyromegaly normal visual inspection Respiratory: normal respiratory effort; no respiratory distress Cardiovascular: Rate/Rhythm: regular rate and regular rhythm Vessels: + posterior tibial pulses abnormal and + dorsalis pedis pulses abnormal Extremities: + abnormal capillary refill bilateral transmetatarsal amputations noted, with the right foot indication being seemingly through the midportion of the cuneiforms and cuboid rather than at the metatarsal necks Chest (Breasts): Chest: normal inspection of chest Gastrointestinal (Abdomen): Inspection/Auscultation: abdomen normal to inspection Percussion/Palpation: + abdomen tender and abdomen soft Musculoskeletal: no cyanosis or clubbing, extremities motor strength 5/5 Head/Neck/Chest: normocephalic and head atraumatic Extremities: + muscle atrophy, + cyanosis, + hand abnormality and + foot abnormality Skin: significant mummification noted to the remaining left hand. The bilateral slipped ulcerations are noted in her chart, documented clinically by the wound care team Neurologic: awake; no focal motor deficits Psychiatric: A+Ox3, euthymic affect Results & Data Vital Signs (Past 12 Hours) Vital Signs Temp Pulse Pulse Pulse Resp BP Pulse Ox 01/01/24 21:46 87 01/01/24 19:05 36.7 C 75 18 128/71 97 01/01/24 16:49 84 01/01/24 15:23 36.8 C 85 18 132/79 95 01/01/24 11:39 36.8 C 82 17 130/73 96 O2 Del Method 01/01/24 21:46 01/01/24 19:05 Room Air 01/01/24 16:49 01/01/24 15:23 Room Air 01/01/24 11:39 Room Air Diagnostic Findings MRI imaging does reveal bone abnormalities throughout the right foot and ankle. This includes increased signal intensity at the surgical site as well as multiple infarctions to the rear foot bones.
[2024-01-02 06:29] LABS: Hematocrit (blood only) 29.5 % (37.0-47.0); Hemoglobin 9.6 g/dl (12.0-16.0); Mean Corpuscular Hemoglobin 26.4 pg (25.0-34.0); Mean Corpuscular Hgb Conc 32.5 g/dL (32.0-36.0); Mean Corpuscular Volume 81.3 fL (80.0-100.0); Mean Platelet Volume 9.4 fL (9.4-12.4); Platelet Count 328 K/uL (130-400); RDW Coefficient of Variation 17.7 % (11.5-14.5); RDW Standard Deviation 52.6 fL (36.4-46.3); Red Blood Count 3.63 M/uL (4.20-5.40); White Blood Count 8.09 K/ul (4.8-10.8)
[2024-01-02 06:32] LABS: BUN Creatinine Ratio 22.9 (10-20); Calcium 8.6 mg/dl (8.6-10.3); Creatinine Clr Calc Pharmacy 97.7 ml/min; Est GFR (African American) 112.8 ml/min; Est GFR (Non-African American) 97.3 ml/min; Magnesium 1.7 mg/dl (1.7-2.4); Potassium 4.4 mmol/L (3.5-5.1)
--- NOTE | 2024-01-02 14:43 | Hospitalist Progress Note ---
Date of Service January 02, 2024 Assessment & Plan (1) Wound, open, foot with complication: (2) Elevated lactic acid level: (3) Gangrene: (4) Hypomagnesemia: (5) Atrial fibrillation: (6) Type 2 diabetes mellitus: (7) HTN (hypertension): (8) Dyslipidemia: (9) Duodenal arteriovenous malformation: Plan Ms Kelly is a 73 year old F with complex history, PMH atrial fibrillation, DM II, HTN, dyslipidemia, history of hepatitis C s/p treatment, B12 deficiency, osteoporosis, extremity gangrene, GI bleed and others listed below presented to ER at request of portfolio mgr, Dr Rod for Right foot wound infection. S/P right foot amputation by Dr. Rod at [facility] on 12/20/23. 12/20/23 deep wound culture + ESBL sensitive to ertapenem, gentamicin, Zosyn, tobramycin, + staff aureus resistant to clindamycin otherwise pansensitive. Seen in podiatry clinic on 12/27/[address] Rod who concern for right wound infection and wound dehiscence. Since admission, patient was evaluated by Ortho and ID. Ortho felt that the dry gangrene of upper extremities is stable and she can follow with Dr. Lay at [facility] – [place], [place]. ID recommended MRI. MRI could not r/o OM. Recommended Podiatry to eval for debridement and deep wound culture. Plan for OR 01/02 #Right foot surgical site infection POA #Abnormal blood cultures, likely contaminant #Prior ESBL #Postoperative wound infection Foot X ray:Soft tissue swelling is partially visualized. No definite erosions are seen. Blood culture: 07/04 growing coagulase-negative staph not Lugdunensis--likely contamination Right foot wound culture: MSSA Per prior hospitalist note"Admitting team spoke with portfolio mgr Dr Rod on phone who feels area does not require debridement or surgical intervention at this time and IV antibiotics and wound care should be attempted first with plan to return to podiatry clinic for further follow up. He recommended twice daily dressing changes to right foot stump with 4 x 4's with gentle application of Dakin's solution with Kerlix over top" MRI unable to exclude OM ID on consult -Continue ertapenem -Discussed with Dr. Hodge over phone--given MRI findings and wound appearance, patient would benefit from debridement Consult placed to Podiatry -OR tomorrow -hold evening dose of apixaban #Left Foot Wound #H/O left foot gangrene s/p left transmetatarsal amputation of her foot by Dr Rod at [facility] 12/20/23 had further debridement and surgery for wound dehiscence by Dr Rod at [facility]. 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 Lay on 11/12/2023 Plan for OP follow up with [facility] #Hypomagnesmia Replace and monitor #Paroxysmal Atrial Fibrillation Previous anticoagulated on Xarelto Xarelto has been held on 11/30/23 as developed GI bleed. Was planned to restart Xarelto on 12/10/23 after discharge however has been held at [facility] Current sinus rhythm Continue digoxin, diltiazem Discussed with patient regarding risks Vs benefits of using Xarelto/Eliquis. Patient agrees to be started on Eliquis. Hemoglobin drop likely dilutional secondary to IV fluids No obvious bleeding issues currently Hold Eliquis Monitor CBC #DMTII A1c: 6.4 on 10/13/23 Hold home oral agents Novolog sliding scale per protocol #HTN Continue diltiazem #HLD Resume statin #Prior GIB #Hx of AVMs History GI bleed with hospitalization at [facility] 12/04/2023- 12/09/23 with EGD consistent with duodenal AV malformation S/P Cautery and GI recommended Protonix BID Denies melena, hematochezia, abdominal pain Continue PPI DVT Px Eliquis, held overnight for OR tomorrow NPO midnight Dispo contingent on Podiatry consult and final ID recs Code Status Full Code Admission and Anticipated Discharge Date Admission Date: December 27, 2023 Subjective NAEO Denies any new concerns or symptoms--reports understanding about procedure tomorrow and denies any questions Physical Exam Constitutional: WD/WN, vitals as above Respiratory: normal respiratory effort, lungs clear to auscultation Cardiovascular: RRR, no murmur, no edema Musculoskeletal: clean dressings on bilateral lower extremities Results & Data Results & Data Vital Signs (Past 12 Hours) Vital Signs Temp Pulse Pulse Pulse Resp BP Pulse Ox 01/02/24 14:33 83 01/02/24 11:10 36.7 C 87 16 133/71 99 01/02/24 08:00 01/02/24 07:26 36.5 C 75 16 126/73 91 01/02/24 07:00 79 01/02/24 03:28 36.5 C 75 18 131/72 96 O2 Del Method O2 Flow Rate 01/02/24 14:33 01/02/24 11:10 Nasal Cannula 2 01/02/24 08:00 Room Air 01/02/24 07:26 Room Air 01/02/24 07:00 01/02/24 03:28 Room Air Laboratory Results Short CBC 01/02/24 Range/Units 05:30 WBC 8.09 (4.8-10.8) K/ul Hgb 9.6 L (12.0-16.0) g/dl Hct 29.5 L (37.0-47.0) % Plt Count 328 (130-400) K/uL BMP 01/02/24 05:30 Sodium 136 Potassium 4.4 Chloride 104 Carbon Dioxide 26 BUN 11 Creatinine 0.48 L Glucose 128 H Calcium 8.6 Medications Administered Home Medications Medication Instructions Recorded Confirmed Last Taken acetaminophen 325 mg tablet 650 mg (2 x 325 mg) PO Q6H PRN 09/10/23 12/27/23 11/06/23 05:15 (Tylenol) FEVER >100/PAIN #30 tabs atorvastatin 40 mg tablet 40 mg PO HS #30 tabs 09/10/23 12/27/23 11/10/23 cyanocobalamin (vitamin B-12) 1,000 mcg PO QAM #30 tabs 09/10/23 12/27/23 11/11/23 1,000 mcg tablet digoxin 125 mcg (0.125 mg) tablet 0.125 mg PO HS #30 tabs 09/10/23 12/27/23 11/10/23 (Digitek) diltiazem HCl 180 mg 180 mg PO QAM #30 caps 09/10/23 12/27/23 11/11/23 capsule,extended release 24 hr magnesium oxide 400 mg (241.3 mg 400 mg PO QAM #60 tabs 09/10/23 12/27/23 11/11/23 magnesium) tablet melatonin 3 mg tablet 3 mg PO HS PRN sleep #30 tabs 09/10/23 12/27/23 Unknown metformin 1,000 mg tablet 1,000 mg PO BIDWMEAL #60 tabs 09/10/23 12/27/23 11/11/23 08:30 tamsulosin 0.4 mg capsule 0.4 mg PO HS #30 caps 09/10/23 12/27/23 11/10/23 Saccharomyces boulardii 250 mg 250 mg PO QAM 10/14/23 12/27/23 11/11/23 capsule (Florastor) alendronate 70 mg tablet (Fosamax) 70 mg PO WK 10/14/23 12/27/23 11/11/23 bisacodyl 10 mg rectal suppository 10 mg AK UD PRN Constipation 10/14/23 12/27/23 Unknown (Dulcolax (bisacodyl)) calcium carbonate 500 mg-vitamin 1 tab PO QAM 10/14/23 12/27/23 11/11/23 D3 5 mcg (200 unit) tablet (Calcium 500 + D) magnesium hydroxide 400 mg/5 mL 2,400 mg PO UD PRN Constipation 10/14/23 12/27/23 Unknown oral suspension ondansetron HCl 4 mg tablet 4 mg PO Q6H PRN Nausea 10/14/23 12/27/23 Unknown pantoprazole 40 mg tablet,delayed 40 mg PO BID 10/14/23 12/27/23 11/11/23 08:30 release sodium phosphates 19 gram-7 118 ml AK UD PRN Constipation 10/14/23 12/27/23 Unknown gram/118 mL enema (Fleet Enema) venlafaxine 150 mg 150 mg PO QAM 10/14/23 12/27/23 11/11/23 capsule,extended release 24 hr cephalexin 500 mg capsule 500 mg PO BID 12/27/23 12/27/23 Unknown povidone-iodine 10 % topical See Rx Instructions .Route .COMPLEX 12/27/23 12/27/23 Unknown solution (Betadine) Active Medications Generic Name Dose Route Start Last Admin Trade Name Freq PRN Reason Stop Dose Admin Apixaban 5 mg 12/30/23 21:00 01/02/24 09:10 Apixaban 5 Mg Tablet PO 01/29/24 20:59 5 mg BID NILDA Administration Atorvastatin Calcium 40 mg 12/27/23 21:51 01/01/24 21:46 Atorvastatin 40 Mg Tab PO 01/26/24 21:50 40 mg HS NILDA Administration Calcium/Vitamin D 1 tab 12/28/23 09:00 01/02/24 09:10 Calcium 600mg + Vit D 400 Iu Tab PO 01/27/24 08:59 1 tab QAM NILDA Administration Cyanocobalamin 1,000 mcg 12/28/23 09:00 01/02/24 09:10 Cyanocobalamin (B-12) 500 Mcg Tablet PO 01/27/24 08:59 1,000 mcg QAM NILDA Administration Digoxin 0.125 mg 12/27/23 21:51 01/01/24 21:46 Digoxin 0.125 Mg Tab PO 01/26/24 21:50 0.125 mg HS NILDA Administration Diltiazem HCl 180 mg 12/28/23 09:00 01/02/24 09:10 Diltiazem Hcl 180 Mg Capcr PO 01/27/24 08:59 180 mg QAM NILDA Administration Ertapenem 1,000 mg/ Syringe 10 mls @ 2 mls/min 12/27/23 22:30 01/01/24 21:47 IV 01/03/24 22:29 2 mls/min Q24H NILDA Administration Insulin Aspart 0 units 12/27/23 21:51 01/02/24 12:50 Insulin Aspart Per Unit Charge SC 01/26/24 21:50 4 units ACHS NILDA Administration Magnesium Oxide 400 mg 12/28/23 09:00 01/02/24 09:10 Magnesium Oxide 400 Mg Tab PO 01/27/24 08:59 400 mg QAM NILDA Administration Miconazole Nitrate 1 appln 12/28/23 09:00 01/02/24 09:10 Miconazole Nitrate Powder 85 Gm EXT 01/27/24 08:59 1 appln BID NILDA Administration Pantoprazole Sodium 40 mg 12/27/23 21:51 01/02/24 09:11 Pantoprazole 40 Mg Tab PO 01/26/24 21:50 40 mg BID NILDA Administration Saccharomyces Boulardii 250 mg 12/28/23 09:00 01/02/24 09:11 Saccharomyces Boulardii 250 Mg Cap PO 01/27/24 08:59 250 mg QAM NILDA Administration Sodium Hypochlorite 1 appln 12/28/23 11:30 12/30/23 21:31 Dakin's Soln 0.125% Quarter Strength 473 Ml Btl EXT 01/27/24 11:29 1 appln UD NILDA Administration Tamsulosin HCl 0.4 mg 12/27/23 21:51 01/01/24 21:46 Tamsulosin Hcl 0.4 Mg Cap PO 01/26/24 21:50 0.4 mg HS NILDA Administration Venlafaxine HCl 150 mg 12/28/23 09:00 01/02/24 09:11 Venlafaxine Hcl Xr 150 Mg Capxr PO 01/27/24 08:59 150 mg QAM NILDA Administration (1) Wound, open, foot with complication Encounter type: initial encounter Laterality: right Qualified Code(s): S91.301A - Unspecified open wound, right foot, initial encounter (6) Type 2 diabetes mellitus Diabetes mellitus 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
[2024-01-03 05:26] LABS: Hematocrit (blood only) 29.7 % (37.0-47.0); Hemoglobin 9.3 g/dl (12.0-16.0); Mean Corpuscular Hemoglobin 25.8 pg (25.0-34.0); Mean Corpuscular Hgb Conc 31.3 g/dL (32.0-36.0); Mean Corpuscular Volume 82.3 fL (80.0-100.0); Mean Platelet Volume 8.5 fL (9.4-12.4); Platelet Count 339 K/uL (130-400); RDW Coefficient of Variation 17.7 % (11.5-14.5); Red Blood Count 3.61 M/uL (4.20-5.40); White Blood Count 7.44 K/ul (4.8-10.8)
[2024-01-03 05:38] LABS: BUN Creatinine Ratio 17.6 (10-20); Calcium 8.7 mg/dl (8.6-10.3); Est GFR (African American) 100.6 ml/min; Est GFR (Non-African American) 86.8 ml/min; Magnesium 1.7 mg/dl (1.7-2.4); Phosphorus 3.7 mg/dl (2.5-4.9); Potassium 4.2 mmol/L (3.5-5.1)
--- NOTE | 2024-01-03 07:18 | Anesthesiology Consultation ---
Date of Service January 03, 2024 Assessment & Plan (1) Encounter for pre-operative examination: Chart Review Chart Review: Acceptable Risk for Surgery History Surgery Operation Date: 01/03/24 12:35 Proposed Procedures p Right Foot Excisional Debridement with Bone Biopsy - Jt Lopez DPM Height/Weight Height: 5 ft 6 in Weight: 64.2 kg Allergies Allergy/AdvReac Type Severity Reaction Status Date / Time No Known Allergies Allergy Verified 12/04/23 15:14 Medications Home Medications Medication Instructions Recorded Confirmed Last Taken acetaminophen 325 mg tablet 650 mg (2 x 325 mg) PO Q6H PRN 09/10/23 12/27/23 11/06/23 05:15 (Tylenol) FEVER >100/PAIN #30 tabs atorvastatin 40 mg tablet 40 mg PO HS #30 tabs 09/10/23 12/27/23 11/10/23 cyanocobalamin (vitamin B-12) 1,000 mcg PO QAM #30 tabs 09/10/23 12/27/23 11/11/23 1,000 mcg tablet digoxin 125 mcg (0.125 mg) tablet 0.125 mg PO HS #30 tabs 09/10/23 12/27/23 11/10/23 (Digitek) diltiazem HCl 180 mg 180 mg PO QAM #30 caps 09/10/23 12/27/23 11/11/23 capsule,extended release 24 hr magnesium oxide 400 mg (241.3 mg 400 mg PO QAM #60 tabs 09/10/23 12/27/23 11/11/23 magnesium) tablet melatonin 3 mg tablet 3 mg PO HS PRN sleep #30 tabs 09/10/23 12/27/23 Unknown metformin 1,000 mg tablet 1,000 mg PO BIDWMEAL #60 tabs 09/10/23 12/27/23 11/11/23 08:30 tamsulosin 0.4 mg capsule 0.4 mg PO HS #30 caps 09/10/23 12/27/23 11/10/23 Saccharomyces boulardii 250 mg 250 mg PO QAM 10/14/23 12/27/23 11/11/23 capsule (Florastor) alendronate 70 mg tablet (Fosamax) 70 mg PO WK 10/14/23 12/27/23 11/11/23 bisacodyl 10 mg rectal suppository 10 mg [place] UD PRN Constipation 10/14/23 12/27/23 Unknown (Dulcolax (bisacodyl)) calcium carbonate 500 mg-vitamin 1 tab PO QAM 10/14/23 12/27/23 11/11/23 D3 5 mcg (200 unit) tablet (Calcium 500 + D) magnesium hydroxide 400 mg/5 mL 2,400 mg PO UD PRN Constipation 10/14/23 12/27/23 Unknown oral suspension ondansetron HCl 4 mg tablet 4 mg PO Q6H PRN Nausea 10/14/23 12/27/23 Unknown pantoprazole 40 mg tablet,delayed 40 mg PO BID 10/14/23 12/27/23 11/11/23 08:30 release sodium phosphates 19 gram-7 118 ml OK UD PRN Constipation 10/14/23 12/27/23 Unknown gram/118 mL enema (Fleet Enema) venlafaxine 150 mg 150 mg PO QAM 10/14/23 12/27/23 11/11/23 capsule,extended release 24 hr cephalexin 500 mg capsule 500 mg PO BID 12/27/23 12/27/23 Unknown povidone-iodine 10 % topical See Rx Instructions .Route .COMPLEX 12/27/23 12/27/23 Unknown solution (Betadine) Active Medications Generic Name Dose Route Start Last Admin Trade Name Ubaldoq PRN Reason Stop Dose Admin Apixaban 5 mg 12/30/23 21:00 01/02/24 09:10 Apixaban 5 Mg Tablet PO 01/29/24 20:59 5 mg BID NILDA Administration Atorvastatin Calcium 40 mg 12/27/23 21:51 01/02/24 22:00 Atorvastatin 40 Mg Tab PO 01/26/24 21:50 40 mg HS NILDA Administration Calcium/Vitamin D 1 tab 12/28/23 09:00 01/02/24 09:10 Calcium 600mg + Vit D 400 Iu Tab PO 01/27/24 08:59 1 tab QAM NILDA Administration Cyanocobalamin 1,000 mcg 12/28/23 09:00 01/02/24 09:10 Cyanocobalamin (B-12) 500 Mcg Tablet PO 01/27/24 08:59 1,000 mcg QAM NILDA Administration Digoxin 0.125 mg 12/27/23 21:51 01/02/24 21:59 Digoxin 0.125 Mg Tab PO 01/26/24 21:50 0.125 mg HS NILDA Administration Diltiazem HCl 180 mg 12/28/23 09:00 01/02/24 09:10 Diltiazem Hcl 180 Mg Capcr PO 01/27/24 08:59 180 mg QAM NILDA Administration Ertapenem 1,000 mg/ Syringe 10 mls @ 2 mls/min 12/27/23 22:30 01/02/24 22:09 IV 01/03/24 22:29 2 mls/min Q24H NILDA Administration Insulin Aspart 0 units 12/27/23 21:51 01/02/24 22:27 Insulin Aspart Per Unit Charge SC 01/26/24 21:50 Not Given ACHS NILDA Magnesium Oxide 400 mg 12/28/23 09:00 01/02/24 09:10 Magnesium Oxide 400 Mg Tab PO 01/27/24 08:59 400 mg QAM NILDA Administration Miconazole Nitrate 1 appln 12/28/23 09:00 01/02/24 22:02 Miconazole Nitrate Powder 85 Gm EXT 01/27/24 08:59 Not Given BID NILDA Pantoprazole Sodium 40 mg 12/27/23 21:51 01/02/24 22:00 Pantoprazole 40 Mg Tab PO 01/26/24 21:50 40 mg BID NILDA Administration Saccharomyces Boulardii 250 mg 12/28/23 09:00 01/02/24 09:11 Saccharomyces Boulardii 250 Mg Cap PO 01/27/24 08:59 250 mg QAM NILDA Administration Sodium Hypochlorite 1 appln 12/28/23 11:30 01/02/24 15:29 Dakin's Soln 0.125% Quarter Strength 473 Ml Btl EXT 01/27/24 11:29 1 appln UD NILDA Administration Tamsulosin HCl 0.4 mg 12/27/23 21:51 01/02/24 22:00 Tamsulosin Hcl 0.4 Mg Cap PO 01/26/24 21:50 0.4 mg HS NILDA Administration Venlafaxine HCl 150 mg 12/28/23 09:00 01/02/24 09:11 Venlafaxine Hcl Xr 150 Mg Capxr PO 01/27/24 08:59 150 mg QAM NILDA Administration Past Medical History Medical History (Updated 01/03/24 @ 07:16 by Joni Wooten MD) Atrial fibrillation Carotid artery stenosis Moderate LEFT ICA stenosis, possible high risk, ulcerative plaque in this location. There is streak artifact from the calcium and patient motion limiting evaluation. History of upper gastrointestinal bleeding 07/2023 Non-occlusive thrombus right internal jugular vein Cognitive communication deficit in setting of encephalopathy Dysphagia, oral phase denies choking, denies specialized diet at this time Muscle weakness (generalized) Difficulty in walking, not elsewhere classified Urinary tract infection, site not specified Klebsiella pneumoniae [k. 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 ventilation. sepsis due to complicated UTI and bacteremia w/klebsiella pneumoniae, tx primarily w/IV cefepime. due to her severe sepsis and need for IV pressor, developed acrocyanosis/gangrene to all 4 extremities as well as distal nose. 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/gangrene" Complicated urinary tract infection Hydronephrosis due to obstruction of ureter hx Closed fracture of left distal radius and ulna hx History of COVID-19 07/2023, [facility], hospitalized 07/26/23-08/21/23 History of colon polyps Anxiety Past Family History Family History Grandmother Family history of diabetes mellitus Family history of colon cancer Grandfather Family history of colon cancer Aunt Family history of colon cancer Uncle Family history of colon cancer Past Surgical History Surgical History S/P cystoscopy with ureteral stent placement 09/05/23>w/ureteroscopy and stone extraction, stent exchange; stent removed 09/09/23 History of colonoscopy History of hysterectomy History of tonsillectomy Social History Smoking Status: Former smoker tobacco type: cigarettes Do You Dip or Chew Tobacco: No Hx Alcohol Use: No Hx Substance Use: No substance use type: does not use Physical Exam Vital Signs Last Vital Signs Temp 36.7 C 01/03/24 04:18 Pulse 79 01/03/24 04:18 Resp 20 01/03/24 04:18 BP 146/82 H 01/03/24 04:18 Pulse Ox 95 01/03/24 04:18 O2 Del Method Room Air 01/03/24 04:18 O2 Flow Rate 2 01/02/24 11:10 Testing Laboratory Results 01/03/24 05:04 01/03/24 05:04 Urine Color Yellow 12/28/23 Unknown Urine Appearance Clear (Clear) 12/28/23 Unknown Urine pH >= 9.0 (4.5-7.5) H 12/28/23 Unknown Ur Specific [place] 1.012 (1.000-1.030) 12/28/23 Unknown Urine Protein Negative (Negative) 12/28/23 Unknown Urine Glucose (UA) Negative (Negative) 12/28/23 Unknown Urine Ketones Negative (Negative) 12/28/23 Unknown Urine Nitrite Negative (Negative) 12/28/23 Unknown Ur Leukocyte Esterase Trace (Negative) H 12/28/23 Unknown Urine WBC (Auto) 11-20 /hpf (0-5) H 12/28/23 Unknown Urine RBC (Auto) 0-2 /hpf (0-2) 12/28/23 Unknown U Hyaline Cast (Auto) 0-2 /lpf (0-2) 12/28/23 Unknown U Epithel Cells (Auto) 0-2 /hpf (0-2) 12/28/23 Unknown Urine Bacteria (Auto) None Seen (None Seen) 12/28/23 Unknown 12/27/23 12:55 Aerobic Blood Culture - Final Blood No growth in Aerobic bottle after 5 days. Anaerobic Blood Culture - Final Coag neg staph not lugdunensis 12/27/23 14:05 Aerobic Blood Culture - Final Blood No growth in Aerobic bottle after 5 days. Anaerobic Blood Culture - Final No growth in Anaerobic bottle after 5 days. 12/27/23 Unknown Gram Stain - Final Foot,Right Aerobic and Anaerobic Culture - Final Staphylococcus aureus 12/28/23 Unknown Urine Culture - Final Urine,Clean Catch No growth - less than 1,000 colonies/mL. 01/02/24 22:19 POC Glucose 108 H Electrocardiogram Date: 12/28/23 Findings: + NSR @ (87) and + NSST changes Echocardiogram Date: 12/05/23 EF: 60-65% LV Function: normal Valvular Disease: + MR (mild)
[2024-01-03] MEDS ORDERED: ATROPINE SULFATE 0.1 MG/ML 10ML SYR IV PRN (08:04)
[2024-01-03] MEDS ORDERED: fentaNYL citrate PF 100 MCG/2 ML VIAL IV PRN (08:04)
[2024-01-03] MEDS ORDERED: ONDANSETRON INJ 2 MG/ML 2 ML VIAL IV PRN (08:04)
[2024-01-03] MEDS: LACTATED RINGER'S 1,000 ML IV SCH (08:08)
--- NOTE | 2024-01-03 08:14 | History & Physical Bridge Note ---
Date of Service January 03, 2024 History & Physical Bridge Note I have examined the patient, reviewed the History & Physical and in the interval since the performance of the History & Physical I have noted the following changes of clinical significance: no changes noted. Plan for right foot I&D with bone biospy. Consent obtained. Due to patient's b/l hand gangrene, erbal consent obtained and witnessed with nursing.
[2024-01-03] MEDS ORDERED: MIDAZOLAM HCL 1 MG/ML 2ML VIAL ONE (08:23)
[2024-01-03] MEDS ORDERED: fentaNYL citrate PF 100 MCG/2 ML VIAL ONE (08:23)
[2024-01-03] MEDS: BUPIVACAINE 0.5 % 5 MG/1 ML MPF 30ML VIAL ONE (08:48)
--- NOTE | 2024-01-03 09:04 | Infectious Disease Progress Nt ---
Date of Service January 03, 2024 Telehealth Information This is a non-billable note Assessment & Plan (1) Amputation stump infection: Plan: The patient has just had debridement with the culture result pending. it is reas onable to hold antibiotic for now if the patient is clinically doing well and has no symptoms or signs of sepsis. However, if the patient develops fever and/or other symptoms/signs of sepsis, I recommend to start zosyn empirically. Will continue to follow. Results & Data Vital Signs (Past 12 Hours) Vital Signs Temp Pulse Pulse Pulse Resp BP Pulse Ox 01/03/24 07:58 36.6 C 76 18 143/68 H 99 01/03/24 04:18 36.7 C 79 20 146/82 H 95 01/03/24 01:18 36.8 C 78 20 150/73 H 94 01/02/24 21:59 74 01/02/24 21:58 36.7 C 74 18 137/72 01/02/24 21:36 80 O2 Del Method 01/03/24 07:58 Room Air 01/03/24 04:18 Room Air 01/03/24 01:18 Room Air 01/02/24 21:59 01/02/24 21:58 01/02/24 21:36
[2024-01-03] MEDS ORDERED: PROPOFOL IV EMULSION 10 MG/ML 20 ML VIAL IV ONE (09:05)
--- NOTE | 2024-01-03 09:08 | Post Operative Brief Note ---
Immediate Post Op Note Date of Surgery January 03, 2024 Pre & Post Diagnosis Operation Date: 01/03/24 12:35 Pre-Op Diagnosis: Amputation Stump Infection Osteomylitis of Right Foot Postop diagnosis: Same I identified the patient and participated in the time-out.: Yes Procedure Operation Date: 01/03/24 12:35 Actual Procedures p Right Foot Excisional Debridement with Bone Biopsy(Right) - Jt Lopez DPM Surgeon Jt Lopez DPM [employer] None Estimated Blood Loss 10 Findings Consistent with Post-Op Diagnosis Ulceration extending to remaining midfoot bones; c s s representative samples obtained for further testing Specimens Right foot bone culture Right foot bone pathology Anesthesia Type MAC Complications none Disposition Accompanied Patient To Recovery: Yes Disposition: Recovery Room
--- NOTE | 2024-01-03 09:31 | Anesthesiology Progress Note ---
Date of Service January 03, 2024 Anesthesia Post Procedure Vital Signs Vital Signs: Temp Pulse Pulse Pulse Pulse Resp BP 01/03/24 09:20 99 H 12 120/56 L 01/03/24 09:13 36.1 C L 95 H 12 125/56 L 01/03/24 07:58 36.6 C 76 18 143/68 H 01/03/24 04:18 36.7 C 79 20 146/82 H 01/03/24 01:18 36.8 C 78 20 150/73 H 01/02/24 21:59 74 01/02/24 21:58 36.7 C 74 18 137/72 01/02/24 21:36 80 01/02/24 20:15 01/02/24 16:30 36.8 C 77 18 134/73 01/02/24 14:33 83 01/02/24 11:10 36.7 C 87 16 133/71 Pulse Ox O2 Del Method O2 Flow Rate 01/03/24 09:20 99 Room Air 01/03/24 09:13 100 Room Air 01/03/24 07:58 99 Room Air 01/03/24 04:18 95 Room Air 01/03/24 01:18 94 Room Air 01/02/24 21:59 01/02/24 21:58 01/02/24 21:36 01/02/24 20:15 Room Air 01/02/24 16:30 100 Room Air 01/02/24 14:33 01/02/24 11:10 99 Nasal Cannula 2 Transfer of Care Handoff Completed per policy Notes Mental Status: alert / awake / arousable Patient Amnestic to Procedure: Yes Nausea / Vomiting: adequately controlled Pain: adequately controlled Airway Patency, RR, SpO2: stable & adequate BP & HR: stable & adequate Hydration State: stable & adequate Anesthetic Complications: no major complications apparent
--- NOTE | 2024-01-03 13:29 | Hospitalist Progress Note ---
Date of Service January 03, 2024 Assessment & Plan (1) Wound, open, foot with complication: (2) Elevated lactic acid level: (3) Gangrene: (4) Hypomagnesemia: (5) Atrial fibrillation: (6) Type 2 diabetes mellitus: (7) HTN (hypertension): (8) Dyslipidemia: (9) Duodenal arteriovenous malformation: Plan Ms Kelly is a 73 year old F with complex history, PMH atrial fibrillation, DM II, HTN, dyslipidemia, history of hepatitis C s/p treatment, B12 deficiency, osteoporosis, extremity gangrene, GI bleed and others listed below presented to ER at request of legal recruiter, Dr Rod for Right foot wound infection. S/P right foot amputation by Dr. Rod at [facility] on 12/20/23. 12/20/23 deep wound culture + ESBL sensitive to ertapenem, gentamicin, Zosyn, tobramycin, + staff aureus resistant to clindamycin otherwise pansensitive. Seen in podiatry clinic on 12/27/[address] Rod who concern for right wound infection and wound dehiscence. Since admission, patient was evaluated by Ortho and ID. Ortho felt that the dry gangrene of upper extremities is stable and she can follow with Dr. Lay at [facility]. ID recommended MRI. MRI could not r/o OM. Recommended Podiatry to eval for debridement and deep wound culture. Podiatry evaluated patient and on 01/02 patient underwent debridement of necrotic tissue on right foot. ID suggested it would be reasonable to discontinue ertapenem for now. Plan for wound care consult for wound vac. #Right foot surgical site infection s/p debridement and bone biopsy -01/02 #Abnormal blood cultures, likely contaminant #Prior ESBL #Postoperative wound infection Foot X ray:Soft tissue swelling is partially visualized. No definite erosions are seen. Blood culture: 07/04 growing coagulase-negative staph not Lugdunensis--likely contamination Right foot wound culture: MSSA Per prior hospitalist note"Admitting team spoke with legal recruiter Dr Rod on phone who feels area does not require debridement or surgical intervention at this time and IV antibiotics and wound care should be attempted first with plan to return to podiatry clinic for further follow up. He recommended twice daily dressing changes to right foot stump with 4 x 4's with gentle application of Dakin's solution with Kerlix over top" MRI unable to exclude OM ID on consult -Discussed with Dr. Hodge over phone--given MRI findings and wound appearance, patient would benefit from debridement -Now, s/p debridement plan to hold ertapenem Consult placed to Podiatry -s/p debridement 01/02, further wound care recs to follow Wound care for wound vac assessment #Left Foot Wound #H/O left foot gangrene s/p left transmetatarsal amputation of her foot by Dr Rod at [facility] 12/20/23 had further debridement and surgery for wound dehiscence by Dr Rod at [facility]. 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 Lay on 11/12/2023 Plan for OP follow up with [facility] #Hypomagnesmia Replace and monitor #Paroxysmal Atrial Fibrillation Previous anticoagulated on Xarelto Xarelto has been held on 11/30/23 as developed GI bleed. Was planned to restart Xarelto on 12/10/23 after discharge however has been held at [facility] Current sinus rhythm Continue digoxin, diltiazem Discussed with patient regarding risks Vs benefits of using Xarelto/Eliquis. Patient agrees to be started on Eliquis. Resume Eliquis #DMTII A1c: 6.4 on 10/13/23 Hold home oral agents Novolog sliding scale per protocol #HTN Continue diltiazem #HLD continue statin #Prior GIB #Hx of AVMs History GI bleed with hospitalization at [facility] 12/04/2023- 12/09/23 with EGD consistent with duodenal AV malformation S/P Cautery and GI recommended Protonix BID Denies melena, hematochezia, abdominal pain Continue PPI DVT Px Eliquis Dispo contingent on Podiatry consult and final ID recs Code Status Full Code Admission and Anticipated Discharge Date Admission Date: December 27, 2023 Subjective NAEO s/p debridement this am Evaluated after procedure, denies any pain, remains with flat effect Physical Exam Constitutional: WD/WN, vitals as above Respiratory: normal respiratory effort, lungs clear to auscultation Cardiovascular: RRR, no murmur, no edema Results & Data Results & Data Vital Signs (Past 12 Hours) Vital Signs Temp Pulse Pulse Pulse Pulse Resp BP 01/03/24 12:00 36.5 C 77 16 121/73 01/03/24 11:00 36.5 C 73 16 118/72 01/03/24 10:15 36.5 C 73 16 121/70 01/03/24 10:00 36.5 C 76 16 114/68 01/03/24 09:45 36.5 C 78 18 118/70 01/03/24 09:30 87 12 107/63 01/03/24 09:20 90 12 120/56 L 01/03/24 09:13 36.1 C L 95 H 12 125/56 L 01/03/24 08:45 36.5 C 78 18 118/70 01/03/24 08:00 77 01/03/24 07:58 36.6 C 76 18 143/68 H 01/03/24 04:18 36.7 C 79 20 146/82 H Pulse Ox O2 Del Method 01/03/24 12:00 99 Room Air 01/03/24 11:00 100 Room Air 01/03/24 10:15 100 Room Air 01/03/24 10:00 98 Room Air 01/03/24 09:45 98 Room Air 01/03/24 09:30 99 Room Air 01/03/24 09:20 99 Room Air 01/03/24 09:13 100 Room Air 01/03/24 08:45 98 Room Air 01/03/24 08:00 01/03/24 07:58 99 Room Air 01/03/24 04:18 95 Room Air Laboratory Results Short CBC 01/03/24 Range/Units 05:04 WBC 7.44 (4.8-10.8) K/ul Hgb 9.3 L (12.0-16.0) g/dl Hct 29.7 L (37.0-47.0) % Plt Count 339 (130-400) K/uL BMP 01/03/24 05:04 Sodium 138 Potassium 4.2 Chloride 105 Carbon Dioxide 28 BUN 12 Creatinine 0.68 Glucose 112 H Calcium 8.7 Medications Administered Home Medications Medication Instructions Recorded Confirmed Last Taken acetaminophen 325 mg tablet 650 mg (2 x 325 mg) PO Q6H PRN 0312/27/23 11/06/23 05:15 (Tylenol) FEVER >100/PAIN #30 tabs atorvastatin 40 mg tablet 40 mg PO HS #30 tabs 09/10/23 12/27/23 11/10/23 cyanocobalamin (vitamin B-12) 1,000 mcg PO QAM #30 tabs 09/10/23 12/27/23 11/11/23 1,000 mcg tablet digoxin 125 mcg (0.125 mg) tablet 0.125 mg PO HS #30 tabs 09/10/23 12/27/23 11/10/23 (Digitek) diltiazem HCl 180 mg 180 mg PO QAM #30 caps 09/10/23 12/27/23 11/11/23 capsule,extended release 24 hr magnesium oxide 400 mg (241.3 mg 400 mg PO QAM #60 tabs 09/10/23 12/27/23 0 11/11/23 magnesium) tablet melatonin 3 mg tablet 3 mg PO HS PRN sleep #30 tabs 09/10/23 12/27/23 Unknown metformin 1,000 mg tablet 1,000 mg PO BIDWMEAL #60 tabs 09/10/23 12/27/23 11/11/23 08:30 tamsulosin 0.4 mg capsule 0.4 mg PO HS #30 caps 09/10/23 12/27/23 11/10/23 Saccharomyces boulardii 250 mg 250 mg PO QAM 10/14/23 12/27/23 11/11/23 capsule (Florastor) alendronate 70 mg tablet (Fosamax) 70 mg PO WK 10/14/23 12/27/23 11/11/23 bisacodyl 10 mg rectal suppository 10 mg CA UD PRN Constipation 10/14/23 12/27/23 Unknown (Dulcolax (bisacodyl)) calcium carbonate 500 mg-vitamin 1 tab PO QAM 10/14/23 12/27/23 11/11/23 D3 5 mcg (200 unit) tablet (Calcium 500 + D) magnesium hydroxide 400 mg/5 mL 2,400 mg PO UD PRN Constipation 10/14/23 12/27/23 Unknown oral suspension ondansetron HCl 4 mg tablet 4 mg PO Q6H PRN Nausea 10/14/23 12/27/23 Unknown pantoprazole 40 mg tablet,delayed 40 mg PO BID 10/14/23 12/27/23 11/11/23 08:30 release sodium phosphates 19 gram-7 118 ml CA UD PRN Constipation 10/14/23 12/27/23 Unknown gram/118 mL enema (Fleet Enema) venlafaxine 150 mg 150 mg PO QAM 10/14/23 12/27/23 11/11/23 capsule,extended release 24 hr cephalexin 500 mg capsule 500 mg PO BID 12/27/23 12/27/23 Unknown povidone-iodine 10 % topical See Rx Instructions .Route .COMPLEX 12/27/23 12/27/23 Unknown solution (Betadine) Active Medications Generic Name Dose Route Start Last Admin Trade Name Ubaldoq PRN Reason Stop Dose Admin Apixaban 5 mg 12/30/23 21:00 01/02/24 09:10 Apixaban 5 Mg Tablet PO 01/29/24 20:59 5 mg BID NILDA Administration Atorvastatin Calcium 40 mg 12/27/23 21:51 01/02/24 22:00 Atorvastatin 40 Mg Tab PO 01/26/24 21:50 40 mg HS NILDA Administration Calcium/Vitamin D 1 tab 12/28/23 09:00 01/03/24 12:05 Calcium 600mg + Vit D 400 Iu Tab PO 01/27/24 08:59 1 tab QAM NILDA Administration Cyanocobalamin 1,000 mcg 12/28/23 09:00 01/03/24 12:05 Cyanocobalamin (B-12) 500 Mcg Tablet PO 01/27/24 08:59 1,000 mcg QAM NILDA Administration Digoxin 0.125 mg 12/27/23 21:51 01/02/24 21:59 Digoxin 0.125 Mg Tab PO 01/26/24 21:50 0.125 mg HS NILDA Administration Diltiazem HCl 180 mg 12/28/23 09:00 01/03/24 12:05 Diltiazem Hcl 180 Mg Capcr PO 01/27/24 08:59 180 mg QAM NILDA Administration Lactated Ringer's 1,000 mls @ 15 mls/hr 01/03/24 07:45 01/03/24 08:33 Lr IV 02/02/24 07:44 Infused .Q24H NILDA Infusion Insulin Aspart 0 units 12/27/23 21:51 01/03/24 13:00 Insulin Aspart Per Unit Charge SC 01/26/24 21:50 1 units ACHS NILDA Administration Magnesium Oxide 400 mg 12/28/23 09:00 01/03/24 12:06 Magnesium Oxide 400 Mg Tab PO 01/27/24 08:59 400 mg QAM NILDA Administration Miconazole Nitrate 1 appln 12/28/23 09:00 01/03/24 12:07 Miconazole Nitrate Powder 85 Gm EXT 01/27/24 08:59 1 appln BID NILDA Administration Pantoprazole Sodium 40 mg 12/27/23 21:51 01/03/24 12:05 Pantoprazole 40 Mg Tab PO 01/26/24 21:50 40 mg BID NILDA Administration Saccharomyces Boulardii 250 mg 12/28/23 09:00 01/03/24 12:06 Saccharomyces Boulardii 250 Mg Cap PO 01/27/24 08:59 250 mg QAM NILDA Administration Sodium Hypochlorite 1 appln 12/28/23 11:30 01/02/24 15:29 Dakin's Soln 0.125% Quarter Strength 473 Ml Btl EXT 01/27/24 11:29 1 appln UD NILDA Administration Tamsulosin HCl 0.4 mg 12/27/23 21:51 01/02/24 22:00 Tamsulosin Hcl 0.4 Mg Cap PO 01/26/24 21:50 0.4 mg HS NILDA Administration Venlafaxine HCl 150 mg 12/28/23 09:00 01/03/24 12:06 Venlafaxine Hcl Xr 150 Mg Capxr PO 01/27/24 08:59 150 mg QAM NILDA Administration (1) Wound, open, foot with complication Encounter type: initial encounter Laterality: right Qualified Code(s): S91.301A - Unspecified open wound, right foot, initial encounter (6) Type 2 diabetes mellitus Diabetes mellitus complication status: with other specified complication Diabetes mellitus terminologist insulin use: without terminologist use Qualified Code(s): E11.69 - Type 2 diabetes mellitus with other specified complication (7) HTN (hypertension) Hypertension type: primary hypertension Qualified Code(s): I10 - Essential (primary) hypertension
[2024-01-03] MEDS: ACETAMINOPHEN 325 MG TAB PO PRN (21:11)
[2024-01-03] MEDS: oxyCODONE HCL IR 5 MG TAB (IMMEDIATE RELEASE) PO PRN (21:40)
--- NOTE | 2024-01-03 22:53 | Operative Report ---
Post Operative Report Pre & Post Diagnosis Operation Date: 01/03/24 12:35 Pre-Op Diagnosis: Amputation Stump Infection Osteomylitis of Right Foot Post-Op Diagnosis: Amputation Stump Infection Osteomylitis of Right Foot I identified the patient and participated in the time-out.: Yes Procedure Operation Date: 01/03/24 12:35 Actual Procedures p Right Foot Excisional Debridement with Bone Biopsy(Right) - Jt Lopez DPM Surgeon Jt Lopez DPM Production Clerks Supervisor None Estimated Blood Loss 10 Findings Consistent with Post-Op Diagnosis the right foot transmetatarsal imitation stump does probe deep to the midfoot bones, including to the remaining cuneiforms and cuboid. The central aspect of the surgical site is still intact, though this is fibrotic more so than the remainder of the surgical site which is more granular in nature. All necrotic tissue was able to be excised. Adequate bleeding was also able to be obtained with the surgical debridement. Representativee leighton were able to be obtained and sent for culture and pathology testing. Specimens commercial pest control representative bone was sent for both culture and pathology testing. Anesthesia Type MAC Complications none Disposition Accompanied Patient To Recovery: Yes Disposition: Recovery Room Indications this patient is a recent hospital consult of ours who has an unfortunate recent medical history. She has developed significant necrosis of all of her extremities associated with recent sepsis and DIC. Her aggressive treatment afterwards led to some clotting which the necrosis of both hands and both feet. She has undergone a right hand amputation at the wrist as well as a bilateral transmetatarsal amputation with another provider. She has healed the left transmetatarsal hip rotation relatively well though this right transmetatarsal imitation stump as progressed. There is now extensive necrosis throughout the ulcer with overlying wet gangrene. Because of these changes, infectious disease is recommending obtaining deeper bone cultures and pathology. This is especially true given the inconclusive recent MRI. It is suspected that she does still have remaining osteomyelitis given the nonhealing nature of this ulceration. 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 Still, she would like to attempt limb salvage. We did discuss that this will require treatment of any underlying osteomyelitis with 6-8 weeks of IV antibiotics as well as aggressive wound care on an outpatient basis. Patient is amenable to this if it can be performed. Preoperative instructions, postoperative instructions, relative risks, and outcomes were all discussed at length. Consent was obtained for this right foot bone biopsy with culture. All questions were answered. Description of Procedure the patient was brought to the operating room placed on the operating table in the supine position. Following administration of IV sedation, local analgesia was obtained utilizing 20 cc of half percent Marcaine and a ankle and local block. the right lower extremity was then scrubbed prepped and draped in the usual aseptic manner. no tourniquet was utilized during the procedure to prevent any further vascular concerns. Attention was directed to the right foot amputation stump was noted to have obvious necrosis this necrotic tissue was able to be excised with a combination of the curet and scalpel. All remaining sutures were also removed at this time. After removing nonviable tissue, the wound did probe directly to the bones of the midfoot. Director Of Partner Marketing samples from here were obtained, from the lateral cuneiform. All fibrotic tissue was able to be excised and adequate clip clinical bleeding was noted after debridement. The wound was packed with 1 inch iodoform packing. The surgical site was then dressed with Xeroform gauze, 4 x 4 gauze, ABD pads, and Kerlix. The patient tolerated the procedure and was transferred to the recovery room with vital signs stable and vascular status intact to the feet. Following postoperative monitoring, she will be transitioned back to the floor for further monitoring. She will likely be discharged home once she is stabilized medically otherwise. based on the surgical findings, she will still likely require 6-8 weeks of IV antibiotics and would benefit from a wound VAC placement. For now, we will plan on removing the packing in the next couple of days. I attest to the content of the Intraoperative Record and any orders documented therein. Any exceptions are noted below.
[2024-01-04 07:24] LABS: Hematocrit (blood only) 31.1 % (37.0-47.0); Hemoglobin 9.8 g/dl (12.0-16.0); Mean Corpuscular Hemoglobin 26.3 pg (25.0-34.0); Mean Corpuscular Hgb Conc 31.5 g/dL (32.0-36.0); Mean Corpuscular Volume 83.6 fL (80.0-100.0); Mean Platelet Volume 8.9 fL (9.4-12.4); Platelet Count 331 K/uL (130-400); RDW Coefficient of Variation 18.1 % (11.5-14.5); RDW Standard Deviation 54.3 fL (36.4-46.3); Red Blood Count 3.72 M/uL (4.20-5.40); White Blood Count 8.62 K/ul (4.8-10.8)
[2024-01-04 07:46] LABS: BUN Creatinine Ratio 20.6 (10-20); Calcium 8.6 mg/dl (8.6-10.3); Creatinine Clr Calc Pharmacy 74.5 ml/min; Est GFR (African American) 103.1 ml/min; Magnesium 1.9 mg/dl (1.7-2.4); Phosphorus 4.2 mg/dl (2.5-4.9); Potassium 4.3 mmol/L (3.5-5.1)
--- NOTE | 2024-01-04 10:19 | Hospitalist Progress Note ---
Date of Service January 04, 2024 Assessment & Plan (1) Wound, open, foot with complication: (2) Elevated lactic acid level: (3) Gangrene: (4) Hypomagnesemia: (5) Atrial fibrillation: (6) Type 2 diabetes mellitus: (7) HTN (hypertension): (8) Dyslipidemia: (9) Duodenal arteriovenous malformation: Plan Ms Kelly is a 73 year old F with complex history, PMH atrial fibrillation, DM II, HTN, dyslipidemia, history of hepatitis C s/p treatment, B12 deficiency, osteoporosis, extremity gangrene, GI bleed and others listed below presented to ER at request of greenhouse grower, Dr Rod for Right foot wound infection. S/P right foot amputation by Dr. Rod at [facility] on 12/20/23. 12/20/23 deep wound culture + ESBL sensitive to ertapenem, gentamicin, Zosyn, tobramycin, + staff aureus resistant to clindamycin otherwise pansensitive. Seen in podiatry clinic on 12/27/[address] Rod who concern for right wound infection and wound dehiscence. Since admission, patient was evaluated by Ortho and ID. Ortho felt that the dry gangrene of upper extremities is stable and she can follow with Dr. Lay at [facility] [place]. ID recommended MRI. MRI could not r/o OM. Recommended Podiatry to eval for debridement and deep wound culture. Podiatry evaluated patient and on 01/02 patient underwent debridement of necrotic tissue on right foot. ID suggested it would be reasonable to discontinue ertapenem as of 01/02. Pending wound care consult for wound vac. #Right foot surgical site infection s/p debridement and bone biopsy -01/02 #Abnormal blood cultures, likely contaminant #Prior ESBL #Postoperative wound infection Foot X ray:Soft tissue swelling is partially visualized. No definite erosions are seen. Blood culture: 07/04 growing coagulase-negative staph not Lugdunensis--likely contamination Right foot wound culture: MSSA Per prior hospitalist note"Admitting team spoke with greenhouse grower Dr Rod on phone who feels area does not require debridement or surgical intervention at this time and IV antibiotics and wound care should be attempted first with plan to return to podiatry clinic for further follow up. He recommended twice daily dressing changes to right foot stump with 4 x 4's with gentle application of Dakin's solution with Kerlix over top" MRI unable to exclude OM, s/p bone biopsy ID on consult -Discussed with Dr. 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 Lay on 11/12/2023 Plan for OP follow up with [facility] #Hypomagnesmia Replace and monitor #Paroxysmal Atrial Fibrillation Previous anticoagulated on Xarelto Xarelto has been held on 11/30/23 as developed GI bleed. Was planned to restart Xarelto on 12/10/23 after discharge however has been held at [facility] Current sinus rhythm Continue digoxin, diltiazem Discussed with patient regarding risks Vs benefits of using Xarelto/Eliquis. Patient agrees to be started on Eliquis. Continue Eliquis #DMTII A1c: 6.4 on 10/13/23 Hold home oral agents Novolog sliding scale per protocol #HTN Continue diltiazem #HLD continue statin #Prior GIB #Hx of AVMs History GI bleed with hospitalization at [facility] 12/04/2023- 12/09/23 with EGD consistent with duodenal AV malformation S/P Cautery and GI recommended Protonix BID Denies melena, hematochezia, abdominal pain Continue PPI DVT Px Eliquis Dispo contingent on wound care eval +/- wound vac Code Status Full Code Admission and Anticipated Discharge Date Admission Date: December 27, 2023 Subjective NAEO Reports mild pain but awaiting pain medication during eval Denies fevers, chills, palpitations or other acute concerns Denies diarrhea or other GI upset Physical Exam Constitutional: WD/WN, vitals as above Respiratory: normal respiratory effort, lungs clear to auscultation Cardiovascular: RRR, no murmur, no edema Musculoskeletal: left gangreous hand, stable; right upper extremity stump with clean kerlex in place, BLE with clean dressings in place Results & Data Results & Data Vital Signs (Past 12 Hours) Vital Signs Temp Pulse Pulse Resp BP Pulse Ox O2 Del Method 01/04/24 08:57 72 01/04/24 07:16 36.5 C 72 18 132/72 98 Room Air 01/04/24 04:06 36.5 C 77 18 123/72 95 Room Air 01/04/24 00:07 37.2 C 88 18 136/73 97 Room Air Laboratory Results Short CBC 01/04/24 Range/Units 06:20 WBC 8.62 (4.8-10.8) K/ul Hgb 9.8 L (12.0-16.0) g/dl Hct 31.1 L (37.0-47.0) % Plt Count 331 (130-400) K/uL BMP 01/04/24 06:20 Sodium 137 Potassium 4.3 Chloride 103 Carbon Dioxide 28 BUN 13 Creatinine 0.63 Glucose 120 H Calcium 8.6 Medications Administered Home Medications Medication Instructions Recorded Confirmed Last Taken acetaminophen 325 mg tablet 650 mg (2 x 325 mg) PO Q6H PRN 09/10/23 12/27/23 11/06/23 05:15 (Tylenol) FEVER >100/PAIN #30 tabs atorvastatin 40 mg tablet 40 mg PO HS #30 tabs 09/10/23 12/27/23 11/10/23 cyanocobalamin (vitamin B-12) 1,000 mcg PO QAM #30 tabs 09/10/23 12/27/23 11/11/23 1,000 mcg tablet digoxin 125 mcg (0.125 mg) tablet 0.125 mg PO HS #30 tabs 09/10/23 12/27/23 11/10/23 (Digitek) diltiazem HCl 180 mg 180 mg PO QAM #30 caps 09/10/23 12/27/23 11/11/23 capsule,extended release 24 hr magnesium oxide 400 mg (241.3 mg 400 mg PO QAM #60 tabs 09/10/23 12/27/23 0509/21 magnesium) tablet melatonin 3 mg tablet 3 mg PO HS PRN sleep #30 tabs 09/10/23 12/27/23 Unknown metformin 1,000 mg tablet 1,000 mg PO BIDWMEAL #60 tabs 09/10/23 12/27/23 11/11/23 08:30 tamsulosin 0.4 mg capsule 0.4 mg PO HS #30 caps 09/10/23 12/27/23 11/10/23 Saccharomyces boulardii 250 mg 250 mg PO QAM 10/14/23 12/27/23 11/11/23 capsule (Florastor) alendronate 70 mg tablet (Fosamax) 70 mg PO WK 10/14/23 12/27/23 11/11/23 bisacodyl 10 mg rectal suppository 10 mg MO UD PRN Constipation 10/14/23 12/27/23 Unknown (Dulcolax (bisacodyl)) calcium carbonate 500 mg-vitamin 1 tab PO QAM 10/14/23 12/27/23 11/11/23 D3 5 mcg (200 unit) tablet (Calcium 500 + D) magnesium hydroxide 400 mg/5 mL 2,400 mg PO UD PRN Constipation 10/14/23 12/27/23 Unknown oral suspension ondansetron HCl 4 mg tablet 4 mg PO Q6H PRN Nausea 10/14/23 12/27/23 Unknown pantoprazole 40 mg tablet,delayed 40 mg PO BID 10/14/23 12/27/23 11/11/23 08:30 release sodium phosphates 19 gram-7 118 ml MO UD PRN Constipation 10/14/23 12/27/23 Unknown gram/118 mL enema (Fleet Enema) venlafaxine 150 mg 150 mg PO QAM 10/14/23 12/27/23 11/11/23 capsule,extended release 24 hr cephalexin 500 mg capsule 500 mg PO BID 12/27/23 12/27/23 Unknown povidone-iodine 10 % topical See Rx Instructions .Route .COMPLEX 12/27/23 12/27/23 Unknown solution (Betadine) Active Medications Generic Name Dose Route Start Last Admin Trade Name Freq PRN Reason Stop Dose Admin Acetaminophen 650 mg 12/27/23 21:51 01/03/24 21:11 Acetaminophen 325 Mg Tab PO 01/26/24 21:50 650 mg Q4H PRN Administration Pain or Fever Apixaban 5 mg 12/30/23 21:00 01/04/24 08:05 Apixaban 5 Mg Tablet PO 01/29/24 20:59 5 mg BID NILDA Administration Atorvastatin Calcium 40 mg 12/27/23 21:51 01/03/24 21:00 Atorvastatin 40 Mg Tab PO 01/26/24 21:50 40 mg HS NILDA Administration Calcium/Vitamin D 1 tab 12/28/23 09:00 01/04/24 08:05 Calcium 600mg + Vit D 400 Iu Tab PO 01/27/24 08:59 1 tab QAM NILDA Administration Cyanocobalamin 1,000 mcg 12/28/23 09:00 01/04/24 08:04 Cyanocobalamin (B-12) 500 Mcg Tablet PO 01/27/24 08:59 1,000 mcg QAM NILDA Administration Digoxin 0.125 mg 12/27/23 21:51 01/03/24 21:02 Digoxin 0.125 Mg Tab PO 01/26/24 21:50 0.125 mg HS NILDA Administration Diltiazem HCl 180 mg 12/28/23 09:00 01/04/24 08:04 Diltiazem Hcl 180 Mg Capcr PO 01/27/24 08:59 180 mg QAM NILDA Administration Insulin Aspart 0 units 12/27/23 21:51 01/04/24 09:06 Insulin Aspart Per Unit Charge SC 01/26/24 21:50 6 units ACHS NILDA Administration Magnesium Oxide 400 mg 12/28/23 09:00 01/04/24 08:05 Magnesium Oxide 400 Mg Tab PO 01/27/24 08:59 400 mg QAM NILDA Administration Miconazole Nitrate 1 appln 12/28/23 09:00 01/04/24 08:05 Miconazole Nitrate Powder 85 Gm EXT 01/27/24 08:59 1 appln BID NILDA Administration Oxycodone HCl 5 mg 01/03/24 21:13 01/04/24 09:06 Oxycodone Hcl Ir 5 Mg Tab (Immediate Release) PO 01/17/24 21:12 5 mg Q4H PRN Administration Severe Pain (Scale 7, 8, 9,10) Pantoprazole Sodium 40 mg 12/27/23 21:51 07/06/24 08:04 Pantoprazole 40 Mg Tab PO 01/26/24 21:50 40 mg BID NILDA Administration Saccharomyces Boulardii 250 mg 12/28/23 09:00 01/04/24 08:05 Saccharomyces Boulardii 250 Mg Cap PO 01/27/24 08:59 250 mg QAM NILDA Administration Sodium Hypochlorite 1 appln 12/28/23 11:30 01/02/24 15:29 Dakin's Soln 0.125% Quarter Strength 473 Ml Btl EXT 01/27/24 11:29 1 appln UD NILDA Administration Tamsulosin HCl 0.4 mg 12/27/23 21:51 01/03/24 21:01 Tamsulosin Hcl 0.4 Mg Cap PO 01/26/24 21:50 0.4 mg HS NILDA Administration Venlafaxine HCl 150 mg 12/28/23 09:00 01/04/24 08:04 Venlafaxine Hcl Xr 150 Mg Capxr PO 01/27/24 08:59 150 mg QAM NILDA Administration (1) Wound, open, foot with complication Encounter type: initial encounter Laterality: right Qualified Code(s): S91.301A - Unspecified open wound, right foot, initial encounter (6) Type 2 diabetes mellitus Diabetes mellitus chcf insulin use: without termite control representative use Diabetes mellitus complication status: with other specified complication Qualified Code(s): E11.69 - Type 2 diabetes mellitus with other specified complication (7) HTN (hypertension) Hypertension type: primary hypertension Qualified Code(s): I10 - Essential (primary) hypertension
[2024-01-05 06:35] LABS: Hematocrit (blood only) 30.4 % (37.0-47.0); Hemoglobin 9.6 g/dl (12.0-16.0); Mean Corpuscular Hemoglobin 26.3 pg (25.0-34.0); Mean Corpuscular Hgb Conc 31.6 g/dL (32.0-36.0); Mean Corpuscular Volume 83.3 fL (80.0-100.0); Mean Platelet Volume 9.3 fL (9.4-12.4); Platelet Count 363 K/uL (130-400); RDW Coefficient of Variation 17.9 % (11.5-14.5); RDW Standard Deviation 54.2 fL (36.4-46.3); Red Blood Count 3.65 M/uL (4.20-5.40); White Blood Count 8.97 K/ul (4.8-10.8)
[2024-01-05 06:58] LABS: BUN Creatinine Ratio 20.3 (10-20); Calcium 8.9 mg/dl (8.6-10.3); Creatinine Clr Calc Pharmacy 79.5 ml/min; Est GFR (African American) 105.4 ml/min; Est GFR (Non-African American) 90.9 ml/min; Potassium 4.4 mmol/L (3.5-5.1)
--- NOTE | 2024-01-05 12:45 | Hospitalist Progress Note ---
Date of Service January 05, 2024 Assessment & Plan (1) Wound, open, foot with complication: (2) Elevated lactic acid level: (3) Gangrene: (4) Hypomagnesemia: (5) Atrial fibrillation: (6) Type 2 diabetes mellitus: (7) HTN (hypertension): (8) Dyslipidemia: (9) Duodenal arteriovenous malformation: Plan Ms Kelly is a 73 year old F with complex history, PMH atrial fibrillation, DM II, HTN, dyslipidemia, history of hepatitis C s/p treatment, B12 deficiency, osteoporosis, extremity gangrene, GI bleed and others listed below presented to ER at request of intervention specialist, Dr Rod for Right foot wound infection. S/P right foot amputation by Dr. Rod at [facility] on 12/20/23. 12/20/23 deep wound culture + ESBL sensitive to ertapenem, gentamicin, Zosyn, tobramycin, + staff aureus resistant to clindamycin otherwise pansensitive. Seen in podiatry clinic on 12/27/[address] Rod who concern for right wound infection and wound dehiscence. Since admission, patient was evaluated by Ortho and ID. Ortho felt that the dry gangrene of upper extremities is stable and she can follow with Dr. Lay at [facility] [place]. ID recommended MRI. MRI could not r/o OM. Recommended Podiatry to eval for debridement and deep wound culture. Podiatry evaluated patient and on 01/02 patient underwent debridement of necrotic tissue on right foot. ID suggested it would be reasonable to discontinue ertapenem as of 01/02. Pending wound care consult for wound vac. Patient is stable to return to [facility] upon discussion with Wound Care about necessary wound vac placement Given stability, will down grade to medsurg. #Right foot surgical site infection s/p debridement and bone biopsy -01/02 #Abnormal blood cultures, likely contaminant #Prior ESBL #Postoperative wound infection Foot X ray:Soft tissue swelling is partially visualized. No definite erosions are seen. Blood culture: 07/04 growing coagulase-negative staph not Lugdunensis--likely contamination Right foot wound culture: MSSA Per prior hospitalist note"Admitting team spoke with intervention specialist Dr Rod on phone who feels area does not require debridement or surgical intervention at this time and IV antibiotics and wound care should be attempted first with plan to return to podiatry clinic for further follow up. He recommended twice daily dressing changes to right foot stump with 4 x 4's with gentle application of Dakin's solution with Kerlix over top" MRI unable to exclude OM, s/p bone biopsy ID on consult -Discussed with Dr. Hodge over phone--given MRI findings and wound appearance, patient would benefit from debridement -Now, s/p debridement plan to hold ertapenem as of 01/02 Consult placed to Podiatry -s/p debridement 01/02, -Bone biopsy 01/02 NGTD Wound care for wound vac assessment -Pending eval #Left Foot Wound #H/O left foot gangrene s/p left transmetatarsal amputation of her foot by Dr Rod at [facility] 12/20/23 had further debridement and surgery for wound dehiscence by Dr Rod at [facility]. 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 Lay on 11/12/2023 Plan for OP follow up with [facility] #Hypomagnesmia Replace and monitor #Paroxysmal Atrial Fibrillation Previous anticoagulated on Xarelto Xarelto has been held on 11/30/23 as developed GI bleed. Was planned to restart Xarelto on 12/10/23 after discharge however has been held at [facility] Current sinus rhythm Continue digoxin, diltiazem Discussed with patient regarding risks Vs benefits of using Xarelto/Eliquis. Patient agrees to be started on Eliquis. Continue Eliquis #DMTII A1c: 6.4 on 10/13/23 Hold home oral agents Novolog sliding scale per protocol #HTN Continue diltiazem #HLD continue statin #Prior GIB #Hx of AVMs History GI bleed with hospitalization at [facility] 12/04/2023- 12/09/23 with EGD consistent with duodenal AV malformation S/P Cautery and GI recommended Protonix BID Denies melena, hematochezia, abdominal pain Continue PPI DVT Px Eliquis Dispo contingent on wound care eval +/- wound vac Code Status Full Code Admission and Anticipated Discharge Date Admission Date: December 27, 2023 Subjective NAEO Remains afebrile overnight Physical Exam Constitutional: WD/WN, vitals as above Respiratory: normal respiratory effort, lungs clear to auscultation Cardiovascular: RRR, no murmur, no edema Gastrointestinal (Abdomen): normal bowel sounds, soft, nontender, no hepatosplenomegaly Musculoskeletal: clean dressings on right stump and lower extremities Results & Data Results & Data Vital Signs (Past 12 Hours) Vital Signs Temp Pulse Pulse Resp BP Pulse Ox O2 Del Method 01/05/24 10:56 Room Air 01/05/24 07:30 36.5 C 78 18 121/70 100 Room Air 01/05/24 07:18 74 01/05/24 03:00 36.7 C 77 18 127/70 97 Room Air (1) Wound, open, foot with complication Encounter type: initial encounter Laterality: right Qualified Code(s): S91.301A - Unspecified open wound, right foot, initial encounter (6) Type 2 diabetes mellitus Diabetes mellitus long-term insulin use: without long-term use Diabetes mellitus complication status: with other specified complication Qualified Code(s): E11.69 - Type 2 diabetes mellitus with other specified complication (7) HTN (hypertension) Hypertension type: primary hypertension Qualified Code(s): I10 - Essential (primary) hypertension
[2024-01-05] MEDS ORDERED: MAGNESIUM HYDROXIDE SUSP 30 ML UDC PO PRN (12:50)
--- NOTE | 2024-01-06 13:50 | Hospitalist Progress Note ---
Date of Service January 06, 2024 Assessment & Plan (1) Wound, open, foot with complication: (2) Elevated lactic acid level: (3) Gangrene: (4) Hypomagnesemia: (5) Atrial fibrillation: (6) Type 2 diabetes mellitus: (7) HTN (hypertension): (8) Dyslipidemia: (9) Duodenal arteriovenous malformation: Plan Ms Kelly is a 73 year old F with complex history, PMH atrial fibrillation, DM II, HTN, dyslipidemia, history of hepatitis C s/p treatment, B12 deficiency, osteoporosis, extremity gangrene, GI bleed and others listed below presented to ER at request of spare hand, Dr Rod for Right foot wound infection. S/P right foot amputation by Dr. Rod at [facility] on 12/20/23. 12/20/23 deep wound culture + ESBL sensitive to ertapenem, gentamicin, Zosyn, tobramycin, + staff aureus resistant to clindamycin otherwise pansensitive. Seen in podiatry clinic on 12/27/[address] Rod who concern for right wound infection and wound dehiscence. Since admission, patient was evaluated by Ortho and ID. Ortho felt that the dry gangrene of upper extremities is stable and she can follow with Dr. Lay at [facility]. ID recommended MRI. MRI could not r/o OM. Recommended Podiatry to eval for debridement and deep wound culture. Podiatry evaluated patient and on 01/02 patient underwent debridement of necrotic tissue on right foot. ID suggested it would be reasonable to discontinue ertapenem as of 01/02. Pending wound care consult for wound vac. Patient is stable to return to [facility] upon discussion with Wound Care about necessary wound vac placement -Discussed with case management, will ensure [facility] has wound vac ordered Patient medically stable once wound vac placed #Right foot surgical site infection s/p debridement and bone biopsy -01/02 #Abnormal blood cultures, likely contaminant #Prior ESBL #Postoperative wound infection Foot X ray:Soft tissue swelling is partially visualized. No definite erosions are seen. Blood culture: 07/04 growing coagulase-negative staph not Lugdunensis--likely contamination Right foot wound culture: MSSA Per prior hospitalist note"Admitting team spoke with spare hand Dr Rod on phone who feels area does not require debridement or surgical intervention at this time and IV antibiotics and wound care should be attempted first with plan to return to podiatry clinic for further follow up. He recommended twice daily dressing changes to right foot stump with 4 x 4's with gentle application of Dakin's solution with Kerlix over top" MRI unable to exclude OM, s/p bone biopsy ID on consult -Discussed with Dr. Hodge over phone--given MRI findings and wound appearance, patient would benefit from debridement -Now, s/p debridement plan to hold ertapenem as of 01/02 Consult placed to Podiatry -s/p debridement 01/02, -Bone biopsy 01/02 NGTD Wound care for wound vac assessment -Wound vac placement per notes 01/05 #Left Foot Wound #H/O left foot gangrene s/p left transmetatarsal amputation of her foot by Dr Rod at [facility] 12/20/23 had further debridement and surgery for wound dehiscence by Dr Rod at [facility]. 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 Lay on 11/12/2023 Plan for OP follow up with [facility] #Hypomagnesmia Replace and monitor #Paroxysmal Atrial Fibrillation Previous anticoagulated on Xarelto Xarelto has been held on 11/30/23 as developed GI bleed. Was planned to restart Xarelto on 12/10/23 after discharge however has been held at [facility] Current sinus rhythm Continue digoxin, diltiazem Discussed with patient regarding risks Vs benefits of using Xarelto/Eliquis. P atient agrees to be started on Eliquis. Continue Eliquis #DMTII A1c: 6.4 on 10/13/23 Hold home oral agents Novolog sliding scale per protocol #HTN Continue diltiazem #HLD continue statin #Prior GIB #Hx of AVMs History GI bleed with hospitalization at [facility] 12/04/2023- 12/09/23 with EGD consistent with duodenal AV malformation S/P Cautery and GI recommended Protonix BID Denies melena, hematochezia, abdominal pain Continue PPI DVT Px Eliquis Potential for discharge in 1-2 days with wound vac Code Status Full Code Admission and Anticipated Discharge Date Admission Date: December 27, 2023 Subjective Remains afebrile evaluated at bedside this am States pain is controlled, no new concerns Discussed need for likely wound vac, however, once place can discuss transfer to [facility], patient reported understanding Physical Exam Constitutional: WD/WN, vitals as above Respiratory: normal respiratory effort, lungs clear to auscultation Cardiovascular: RRR, no murmur, no edema Gastrointestinal (Abdomen): normal bowel sounds, soft, nontender, no hepatosplenomegaly Musculoskeletal: dressings on bilateral lower extremities, CDI Results & Data Results & Data Vital Signs (Past 12 Hours) Vital Signs Temp Pulse Resp BP Pulse Ox O2 Del Method 01/06/24 08:44 Room Air 01/06/24 07:40 36.5 C 81 16 133/69 97 Room Air (1) Wound, open, foot with complication Encounter type: initial encounter Laterality: right Qualified Code(s): S91.301A - Unspecified open wound, right foot, initial encounter (6) Type 2 diabetes mellitus Diabetes mellitus complication status: with other specified complication Diabetes mellitus mcc insulin use: without director of community services use Qualified Code(s): E11.69 - Type 2 diabetes mellitus with other specified complication (7) HTN (hypertension) Hypertension type: primary hypertension Qualified Code(s): I10 - Essential (primary) hypertension
--- NOTE | 2024-01-06 15:05 | Infectious Disease Progress Nt ---
Date of Service January 06, 2024 Telehealth Information Note written after chart review and discussion w/ Dr. Juarez Assessment & Plan (1) Amputation stump infection: Plan: The wound culture from the stump is growing MSSA. The patient now has a wound vac in place after debridement, doing well clinically. It is unclear if the patient has residual OM at the stump site. I think it is reasonable to provide 10-14 days of abx coverage w/ 1st generation cephalosporin such as keflex 500 mg po qid or cefadroxil 1 gm iv q12 hours and monitor w/ wound care. If she has residual OM, it will declare itself in near future. ID signing off at this time. Results & Data Vital Signs (Past 12 Hours) Vital Signs Temp Pulse Pulse Resp BP Pulse Ox O2 Del Method 01/06/24 14:25 36.6 C 88 16 121/73 94 Room Air 01/06/24 08:44 Room Air 01/06/24 07:40 36.5 C 81 16 133/69 97 Room Air
[2024-01-06] MEDS: cefUROXime axetil 500 MG TAB PO SCH (17:13)
--- NOTE | 2024-01-06 23:08 | Podiatry Progress Note ---
Date of Service January 06, 2024 Assessment & Plan (1) Osteomyelitis of foot, right, acute: (2) Amputation stump infection: (3) Type 2 diabetes mellitus: Plan Pt examined and evaluated. - Doing well and will benefit from continued IV abx pending bone culture and pathology - Should do well with wound vac and continued inpatient rehab/care at [facility] when stable from hospital standpoint. - Will defer wound care for now to wound care team. Will keep an eye on her semi-regularly until discharge. - If further intervention is needed, we're happy to help. Otherwise, once vac is in place, can d/c to rehab/assisted living. Admission and Anticipated Discharge Date Admission Date: December 27, 2023 Subjective Pt seen at bedside. No new concerns. Has been seen and redressed by wound care since yesterday, but no wound vac placement yet. No new pain/evidence of infection. Physical Exam Physical Exam: lower extremity focused exam: DP/PT pulses nonpalpable bilaterally. Bilateral transmetatarsal limitations are appreciated, more distally on the left with the right being more of a Chopart level amputation. The left foot is more healed with no current dehiscence noted. Right foot TMA stump is still deeply dehisced, but with more granulation tissue noted. No new fibrotic/necrotic tissue since Saturday. Constitutional: WD/WN, vitals as above + ill appearing and + obese; no acute distress Eyes: PERRL, conjunctivae normal, anicteric sclerae ENMT: external ear and nose normal, oropharynx normal Nose: + external nose abnormality Neck: trachea midline, no thyromegaly normal visual inspection Respiratory: normal respiratory effort; no respiratory distress Cardiovascular: Rate/Rhythm: regular rate and regular rhythm Vessels: + posterior tibial pulses abnormal and + dorsalis pedis pulses abnormal Extremities: + abnormal capillary refill bilateral transmetatarsal amputations noted, with the right foot indication being seemingly through the midportion of the cuneiforms and cuboid rather than at the metatarsal necks Chest (Breasts): Chest: normal inspection of chest Gastrointestinal (Abdomen): Inspection/Auscultation: abdomen normal to inspection Percussion/Palpation: + abdomen tender and abdomen soft Musculoskeletal: no cyanosis or clubbing, extremities motor strength 5/5 Head/Neck/Chest: normocephalic and head atraumatic Extremities: + muscle atrophy, + cyanosis, + hand abnormality and + foot abnormality Skin: significant mummification noted to the remaining left hand. The bilateral slipped ulcerations are noted in her chart, documented clinically by the wound care team Neurologic: awake; no focal motor deficits Psychiatric: A+Ox3, euthymic affect Results & Data Results & Data Vital Signs (Past 12 Hours) Vital Signs Temp Pulse Pulse Pulse Resp BP BP 01/06/24 20:39 76 01/06/24 20:23 36.5 C 76 16 120/65 01/06/24 14:25 36.6 C 88 16 121/73 Pulse Ox O2 Del Method 01/06/24 20:39 01/06/24 20:23 98 Room Air 01/06/24 14:25 94 Room Air (3) Type 2 diabetes mellitus Diabetes mellitus terminal press operator insulin use: without terminal press operator use Diabetes mellitus complication status: with other specified complication Qualified Code(s): E11.69 - Type 2 diabetes mellitus with other specified complication
--- NOTE | 2024-01-06 23:10 | Podiatry Progress Note ---
Date of Service January 05, 2024 Assessment & Plan (1) Osteomyelitis of foot, right, acute: (2) Amputation stump infection: (3) Type 2 diabetes mellitus: Plan Pt examined and evaluated. - Packing removed, foot cleaned, and redressed with xeroform, 4x4 gauze, kerlix, and pramod wrap loosely applied. - Doing well and will benefit from continued IV abx pending bone culture and pathology - Should do well with wound vac and continued inpatient rehab/care at [facility] when stable from hospital standpoint. - Will defer wound care for now to wound care team. Will keep an eye on her semi-regularly until discharge. - If further intervention is needed, we're happy to help. Otherwise, once vac is in place, can d/c to rehab/assisted living. Admission and Anticipated Discharge Date Admission Date: December 27, 2023 Subjective Late entry for visit on Thursday 01/04. Seen POD #2. No pain to surgical site. No new s/s of infection. Overall, feels better. Has many family/friends visiting currently. Review of Systems Review of Systems: All systems reviewed & are unremarkable except as noted in HPI & below Constitutional: + fever, + chills and + weakness; no fat igue Eyes: no problem reported Ear, Nose, Mouth, Throat: no problem reported Respiratory: no problem reported Cardiovascular: + edema and + claudication; no problem r eported Gastrointestinal: no nausea, no vomiting and no problem reported Genitourinary: no problem reported Musculoskeletal: no problem reported Integumentary: + non-healing lesions, + skin ulcer, + w ounds and + erythema necrosis to the bilateral foot and hands Neurologic: + loss of sensation, + numbness and + pa resthesia; no generalized weakness Psychiatric: no problem reported Physical Exam Physical Exam: lower extremity focused exam: DP/PT pulses nonpalpable bilaterally. Bilateral transmetatarsal limitations are appreciated, more distally on the left with the right being more of a Chopart level amputation. The left foot is more healed with no current dehiscence noted. Packing intact with no active bleeding or purulence. Pain is noted on removal of packing. Right foot TMA stump is still deeply dehisced, but with more granulation tissue noted. No new fibrotic/necrotic tissue since Saturday. Constitutional: WD/WN, vitals as above + ill appearing and + obese; no acute distress Eyes: PERRL, conjunctivae normal, anicteric sclerae ENMT: external ear and nose normal, oropharynx normal Nose: + external nose abnormality Neck: trachea midline, no thyromegaly normal visual inspection Respiratory: normal respiratory effort; no respiratory distress Cardiovascular: Rate/Rhythm: regular rate and regular rhythm Vessels: + posterior tibial pulses abnormal and + dorsalis pedis pulses abnormal Extremities: + abnormal capillary refill bilateral transmetatarsal amputations noted, with the right foot indication being seemingly through the midportion of the cuneiforms and cuboid rather than at the metatarsal necks Chest (Breasts): Chest: normal inspection of chest Gastrointestinal (Abdomen): Inspection/Auscultation: abdomen normal to inspection Percussion/Palpation: + abdomen tender and abdomen soft Musculoskeletal: no cyanosis or clubbing, extremities motor strength 5/5 Head/Neck/Chest: normocephalic and head atraumatic Extremities: + muscle atrophy, + cyanosis, + hand abnormality and + foot abnormality Skin: significant mummification noted to the remaining left hand. The bilateral slipped ulcerations are noted in her chart, documented clinically by the wound care team Neurologic: awake; no focal motor deficits Psychiatric: A+Ox3, euthymic affect Results & Data Results & Data Vital Signs (Past 12 Hours) Vital Signs Temp Pulse Pulse Pulse Resp BP BP 01/06/24 20:39 76 01/06/24 20:23 36.5 C 76 16 120/65 01/06/24 14:25 36.6 C 88 16 121/73 Pulse Ox O2 Del Method 01/06/24 20:39 01/06/24 20:23 98 Room Air 01/06/24 14:25 94 Room Air (3) Type 2 diabetes mellitus Diabetes mellitus computer terminal operator insulin use: without computer terminal operator use Diabetes mellitus complication status: with other specified complication Qualified Code(s): E11.69 - Type 2 diabetes mellitus with other specified complication
[2024-01-07 08:00] LABS: Hematocrit (blood only) 30.9 % (37.0-47.0); Hemoglobin 9.8 g/dl (12.0-16.0); Mean Corpuscular Hemoglobin 26.4 pg (25.0-34.0); Mean Corpuscular Hgb Conc 31.7 g/dL (32.0-36.0); Mean Corpuscular Volume 83.3 fL (80.0-100.0); Mean Platelet Volume 9.1 fL (9.4-12.4); Platelet Count 363 K/uL (130-400); RDW Coefficient of Variation 18.1 % (11.5-14.5); RDW Standard Deviation 55.1 fL (36.4-46.3); Red Blood Count 3.71 M/uL (4.20-5.40); White Blood Count 7.45 K/ul (4.8-10.8)
[2024-01-07 08:25] LABS: BUN Creatinine Ratio 23.8 (10-20); Calcium 9.1 mg/dl (8.6-10.3); Creatinine Clr Calc Pharmacy 74.5 ml/min; Est GFR (African American) 103.1 ml/min; Potassium 4.5 mmol/L (3.5-5.1)
--- NOTE | 2024-01-07 12:43 | Hospitalist Progress Note ---
Date of Service January 07, 2024 Assessment & Plan (1) Wound, open, foot with complication: (2) Elevated lactic acid level: (3) Gangrene: (4) Hypomagnesemia: (5) Atrial fibrillation: (6) Type 2 diabetes mellitus: (7) HTN (hypertension): (8) Dyslipidemia: (9) Duodenal arteriovenous malformation: Plan Ms Kelly is a 73 year old F with complex history, PMH atrial fibrillation, DM II, HTN, dyslipidemia, history of hepatitis C s/p treatment, B12 deficiency, osteoporosis, extremity gangrene, GI bleed and others listed below presented to ER at request of home health caregiver, Dr Rod for Right foot wound infection. S/P right foot amputation by Dr. Rod at [facility] on 12/20/23. 12/20/23 deep wound culture + ESBL sensitive to ertapenem, gentamicin, Zosyn, tobramycin, + staff aureus resistant to clindamycin otherwise pansensitive. Seen in podiatry clinic on 12/27/[address] Rod who concern for right wound infection and wound dehiscence. Since admission, patient was evaluated by Ortho and ID. Ortho felt that the dry gangrene of upper extremities is stable and she [place] [facility] [place] ID recommended MRI. MRI could not r/o OM. Recommended Podiatry to eval for debridement and deep wound culture. Podiatry evaluated patient and on 01/02 patient underwent debridement of necrotic tissue on right foot. ID suggested it would be reasonable to discontinue ertapenem as of 01/02. Pending wound care consult for wound vac. Patient is stable to return to [facility] upon discussion with Wound Care about necessary wound vac placement -Discussed with case management, will ensure [facility] has wound vac ordered Patient medically stable once wound vac placed #Right foot surgical site infection s/p debridement and bone biopsy -01/02 #Abnormal blood cultures, likely contaminant #Prior ESBL #Postoperative wound infection Foot X ray:Soft tissue swelling is partially visualized. No definite erosions are seen. Blood culture: 07/04 growing coagulase-negative staph not Lugdunensis--likely contamination Right foot wound culture: MSSA Per prior hospitalist note"Admitting team spoke with home health caregiver Dr Rod on phone who feels area does not require debridement or surgical intervention at this time and IV antibiotics and wound care should be attempted first with plan to return to podiatry clinic for further follow up. He recommended twice daily dressing changes to right foot stump with 4 x 4's with gentle application of Dakin's solution with Kerlix over top" MRI unable to exclude OM, s/p bone biopsy ID on consult -Discussed with Dr. Hodge over phone--given MRI findings and wound appearance, patient would benefit from debridement -Now, s/p debridement plan to hold ertapenem as of 01/02 Consult placed to Podiatry -s/p debridement 01/02, -Wound with MSSA -Spoke to ID, no need for IV abx, but recommends coverage for MSSA at this time for 14 days, ceftin BID (started 01/05) Wound care for wound vac assessment -Irrigating Wound vac placement 01/05 *Per CM, [facility] may not accept irrigating wound vac, awaiting follow up if possible; CM for dispo planning ongoing #Left Foot Wound #H/O left foot gangrene s/p left transmetatarsal amputation of her foot by Dr Rod at [facility] 12/20/23 had further debridement and surgery for wound dehiscence by Dr Rod at [facility]. 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 Lay on 11/12/2023 Plan for OP follow up with [facility] #Hypomagnesmia Replace and monitor #Paroxysmal Atrial Fibrillation Previous anticoagulated on Xarelto Xarelto has been held on 11/30/23 as developed GI bleed. Was planned to restart Xarelto on 12/10/23 after discharge however has been held at [facility] [place] Current sinus rhythm Continue digoxin, diltiazem Discussed with patient regarding risks Vs benefits of using Xarelto/Eliquis. Patient agrees to be started on Eliquis. Continue Eliquis #DMTII A1c: 6.4 on 10/13/23 Hold home oral agents Novolog sliding scale per protocol #HTN Continue diltiazem #HLD continue statin #Prior GIB #Hx of AVMs History GI bleed with hospitalization at [facility] 12/04/2023- 12/09/23 with EGD consistent with duodenal AV malformation S/P Cautery and GI recommended Protonix BID Denies melena, hematochezia, abdominal pain Continue PPI DVT Px Eliquis dispo complicated by presences of irrigating wound vac, CM following Code Status Full Code Admission and Anticipated Discharge Date Admission Date: December 27, 2023 Subjective NAEO Denies any subjective concerns Physical Exam Constitutional: WD/WN, vitals as above Respiratory: normal respiratory effort, lungs clear to auscultation Cardiovascular: RRR, no murmur, no edema Gastrointestinal (Abdomen): normal bowel sounds, soft, nontender, no hepatosplenomegaly Musculoskeletal: irrigating wound vac to right foot, clean dressing to LLE and RUE Results & Data Results & Data Vital Signs (Past 12 Hours) Vital Signs Temp Pulse Resp BP Pulse Ox O2 Del Method 01/07/24 07:52 36.6 C 80 16 149/66 H 95 Room Air Laboratory Results Short CBC 01/07/24 Range/Units 07:23 WBC 7.45 (4.8-10.8) K/ul Hgb 9.8 L (12.0-16.0) g/dl Hct 30.9 L (37.0-47.0) % Plt Count 363 (130-400) K/uL BMP 01/07/24 07:23 Sodium 139 Potassium 4.5 Chloride 105 Carbon Dioxide 27 BUN 15 Creatinine 0.63 Glucose 133 H Calcium 9.1 Medications Administered Home Medications Medication Instructions Recorded Confirmed Last Taken acetaminophen 325 mg tablet 650 mg (2 x 325 mg) PO Q6H PRN 09/10/23 12/27/23 11/06/23 05:15 (Tylenol) FEVER >100/PAIN #30 tabs atorvastatin 40 mg tablet 40 mg PO HS #30 tabs 09/10/23 12/27/23 11/10/23 cyanocobalamin (vitamin B-12) 1,000 mcg PO QAM #30 tabs 09/10/23 12/27/2311/10 1,000 mcg tablet digoxin 125 mcg (0.125 mg) tablet 0.125 mg PO HS #30 tabs 09/10/23 12/27/23 11/10/23 (Digitek) diltiazem HCl 180 mg 180 mg PO QAM #30 caps 09/10/23 12/27/23 11/11/23 capsule,extended release 24 hr magnesium oxide 400 mg (241.3 mg 400 mg PO QAM #60 tabs 09/10/23 12/27/23 11/11/23 magnesium) tablet melatonin 3 mg tablet 3 mg PO HS PRN sleep #30 tabs 09/10/23 12/27/23 Unknown metformin 1,000 mg tablet 1,000 mg PO BIDWMEAL #60 tabs 09/10/23 12/27/23 11/11/23 08:30 tamsulosin 0.4 mg capsule 0.4 mg PO HS #30 caps 09/10/23 12/27/23 11/10/23 Saccharomyces boulardii 250 mg 250 mg PO QAM 10/14/23 12/27/23 11/11/23 capsule (Florastor) alendronate 70 mg tablet (Fosamax) 70 mg PO WK 10/14/23 12/27/23 11/11/23 bisacodyl 10 mg rectal suppository [address] UD PRN Constipation 10/14/23 12/27/23 Unknown (Dulcolax (bisacodyl)) calcium carbonate 500 mg-vitamin 1 tab PO QAM 10/14/23 12/27/23 11/11/23 D3 5 mcg (200 unit) tablet (Calcium 500 + D) magnesium hydroxide 400 mg/5 mL 2,400 mg PO UD PRN Constipation 10/14/23 12/27/23 Unknown oral suspension ondansetron HCl 4 mg tablet 4 mg PO Q6H PRN Nausea 10/14/23 12/27/23 Unknown pantoprazole 40 mg tablet,delayed 40 mg PO BID 10/14/23 12/27/23 11/11/23 08:30 release sodium phosphates 19 gram-[address] UD PRN Constipation 10/14/23 12/27/23 Unknown gram/118 mL enema (Fleet Enema) venlafaxine 150 mg 150 mg PO QAM 10/14/23 12/27/23 11/11/23 capsule,extended release 24 hr cephalexin 500 mg capsule 500 mg PO BID 12/27/23 12/27/23 Unknown povidone-iodine 10 % topical See Rx Instructions .Route .COMPLEX 12/27/23 12/27/23 Unknown solution (Betadine) Active Medications Generic Name Dose Route Start Last Admin Trade Name Freq PRN Reason Stop Dose Admin Acetaminophen 650 mg 12/27/23 21:51 01/05/24 22:01 Acetaminophen 325 Mg Tab PO 01/26/24 21:50 650 mg Q4H PRN Administration Pain or Fever Apixaban 5 mg 12/30/23 21:00 01/07/24 08:30 Apixaban 5 Mg Tablet PO 01/29/24 20:59 5 mg BID NILDA Administration Atorvastatin Calcium 40 mg 12/27/23 21:51 01/06/24 20:40 Atorvastatin 40 Mg Tab PO 01/26/24 21:50 40 mg HS NILDA Administration Calcium/Vitamin D 1 tab 12/28/23 09:00 01/07/24 08:31 Calcium 600mg + Vit D 400 Iu Tab PO 01/27/24 08:59 1 tab QAM NILDA Administration Cefuroxime Axetil 500 mg 01/06/24 17:00 01/07/24 08:30 Cefuroxime Axetil 500 Mg Tab PO 01/13/24 16:59 500 mg BIDM NILDA Administration Cyanocobalamin 1,000 mcg 12/28/23 09:00 01/07/24 08:31 Cyanocobalamin (B-12) 500 Mcg Tablet PO 01/27/24 08:59 1,000 mcg QAM NILDA Administration Digoxin 0.125 mg 12/27/23 21:51 01/06/24 20:39 Digoxin 0.125 Mg Tab PO 01/26/24 21:50 0.125 mg HS NILDA Administration Diltiazem HCl 180 mg 12/28/23 09:00 01/07/24 08:31 Diltiazem Hcl 180 Mg Capcr PO 01/27/24 08:59 180 mg QAM NILDA Administration Insulin Aspart 0 units 12/27/23 21:51 01/07/24 12:43 Insulin Aspart Per Unit Charge SC 01/26/24 21:50 2 units ACHS NILDA Administration Magnesium Oxide 400 mg 12/28/23 09:00 01/07/24 08:32 Magnesium Oxide 400 Mg Tab PO 01/27/24 08:59 400 mg QAM NILDA Administration Miconazole Nitrate 1 appln 12/28/23 09:00 01/07/24 12:43 Miconazole Nitrate Powder 85 Gm EXT 01/27/24 08:59 1 appln BID NILDA Administration Oxycodone HCl 5 mg 01/03/24 21:13 01/06/24 11:37 Oxycodone Hcl Ir 5 Mg Tab (Immediate Release) PO 01/17/24 21:12 5 mg Q4H PRN Administration Severe Pain (Scale 7, 8, 9,10) Pantoprazole Sodium 40 mg 12/27/23 21:51 01/07/24 08:32 Pantoprazole 40 Mg Tab PO 01/26/24 21:50 40 mg BID NILDA Administration Saccharomyces Boulardii 250 mg 12/28/23 09:00 01/07/24 08:32 Saccharomyces Boulardii 250 Mg Cap PO 01/27/24 08:59 250 mg QAM NILDA Administration Sodium Hypochlorite 1 appln 12/28/23 11:30 01/05/24 21:08 Dakin's Soln 0.125% Quarter Strength 473 Ml Btl EXT 01/27/24 11:29 1 appln UD NILDA Administration Tamsulosin HCl 0.4 mg 12/27/23 21:51 01/06/24 20:38 Tamsulosin Hcl 0.4 Mg Cap PO 01/26/24 21:50 0.4 mg HS NILDA Administration Venlafaxine HCl 150 mg 12/28/23 09:00 01/07/24 08:33 Venlafaxine Hcl Xr 150 Mg Capxr PO 01/27/24 08:59 150 mg QAM NILDA Administration (1) Wound, open, foot with complication Encounter type: initial encounter Laterality: right Qualified Code(s): S91.301A - Unspecified open wound, right foot, initial encounter (6) Type 2 diabetes mellitus Diabetes mellitus complication status: with other specified complication Diabetes mellitus manager long term care insulin use: without custodial use Qualified Code(s): E11.69 - Type 2 diabetes mellitus with other specified complication (7) HTN (hypertension) Hypertension type: primary hypertension Qualified Code(s): I10 - Essential (primary) hypertension
--- NOTE | 2024-01-08 12:26 | Hospitalist Progress Note ---
Date of Service January 08, 2024 Assessment & Plan (1) Wound, open, foot with complication: (2) Elevated lactic acid level: (3) Gangrene: (4) Hypomagnesemia: (5) Atrial fibrillation: (6) Type 2 diabetes mellitus: (7) HTN (hypertension): (8) Dyslipidemia: (9) Duodenal arteriovenous malformation: Plan Ms Kelly is a 73 year old F with complex history, PMH atrial fibrillation, DM II, HTN, dyslipidemia, history of hepatitis C s/p treatment, B12 deficiency, osteoporosis, extremity gangrene, GI bleed and others listed below presented to ER at request of delimber operator, Dr Rod for Right foot wound infection. S/P right foot amputation by Dr. Rod at [facility] on 12/20/23. 12/20/23 deep wound culture + ESBL sensitive to ertapenem, gentamicin, Zosyn, tobramycin, + staff aureus resistant to clindamycin otherwise pansensitive. Seen in podiatry clinic on 12/27/[address] Rod who concern for right wound infection and wound dehiscence. Since admission, patient was evaluated by Ortho and ID. Ortho felt that the dry gangrene of upper extremities is stable and she can follow with Dr. Lay at [facility] [place]. ID recommended MRI. MRI could not r/o OM. Recommended Podiatry to eval for debridement and deep wound culture. Podiatry evaluated patient and on 01/02 patient underwent debridement of necrotic tissue on right foot. ID suggested it would be reasonable to discontinue ertapenem as of 01/02. wound vac placed Right foot surgical site infection s/p debridement and bone biopsy -01/02 Abnormal blood cultures, likely contaminant H/O ESBL Postoperative wound infection Foot X ray:Soft tissue swelling is partially visualized. No definite erosions are seen. Blood culture: 07/04 growing coagulase-negative staph not Lugdunensis--likely contamination Right foot wound culture: MSSA MRI unable to exclude OM, s/p bone biopsy ID on board. Prior hospitalist Discussed with Dr. Hodge over phone--given MRI findings and wound appearance, patient would benefit from debridement --S/P Right Foot Excisional Debridement with Bone Biopsy(Right) by Dr. Lopez on 01/03/2024 Appreciate podiatry help -Wound Cx MSSA Plan hospitalist discussed with ID:IV abx transition to ceftin BID (started 01/05)--complete 14-day course Wound care for wound vac assessment -Irrigating Wound vac placement 01/05 Plan to discharge to rehab facility today Left Foot Wound H/O left foot gangrene s/p left transmetatarsal amputation of her foot by Dr Rod at [facility] 12/20/23 had further debridement and surgery for wound dehiscence by Dr Rod at [facility]. 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 Lay on 11/12/2023 Plan for OP follow up with [facility] Hypomagnesemia Replace and monitor Paroxysmal Atrial Fibrillation Previous anticoagulated on Xarelto Xarelto has been held on 11/30/23 as developed GI bleed. Was planned to restart Xarelto on 12/10/23 after discharge however has been held at [facility] Current sinus rhythm Continue digoxin, diltiazem Discussed with patient regarding risks Vs benefits of using Xarelto/Eliquis. Patient agrees to be started on Eliquis. Continue Eliquis DM II A1c: 6.4 on 10/13/23 Hold home oral agents NovoLog sliding scale per protocol HTN Continue diltiazem HLD continue statin Prior GIB Hx of AVMs History GI bleed with hospitalization at [facility] 12/04/2023- 12/09/23 with EGD consistent with duodenal AV malformation S/P Cautery and GI recommended Protonix BID Denies melena, hematochezia, abdominal pain Continue PPI DVT Px Eliquis Code Status Full Code Disposition SNF Admission and Anticipated Discharge Date Admission Date: December 27, 2023 Subjective Patient is seen and examined at bedside Offers no new complaints today Family at bedside Plan to be discharged to rehab facility. Denies any chest pain, dyspnea, nausea, vomiting, abdominal pain Review of Systems Review of Systems: All systems reviewed & are unremarkable except as noted in Subjective Physical Exam Physical Exam: Physical Exam: Vitals signs as noted above General Appearance:Thin, no apparent distress, Chronic ill appearing Head: normocephalic, Atraumatic Eyes: normal inspection, EOMI Neck: supple, Trachea midline Respiratory/Chest: Normal breath sounds, CTA, No accessory muscle use Cardiovascular: S1, S2, No murmur Abdomen/GI:Soft, Non tender, Bowel sounds present Extremities/Musculoskeletal:normal inspection, +R hand amputation/stump , L hand gangrene, N/L Foot amputation +wound Vac Neurologic/Psych:AAOX3, grossly no focal neurological deficits Skin: normal color, warm Results & Data Results & Data Vital Signs (Past 12 Hours) Vital Signs Temp Pulse Resp BP Pulse Ox O2 Del Method 01/08/24 06:38 36.4 C 76 18 139/74 94 Room Air (1) Wound, open, foot with complication Encounter type: initial encounter Laterality: right Qualified Code(s): S91.301A - Unspecified open wound, right foot, initial encounter (6) Type 2 diabetes mellitus Diabetes mellitus long term care pharmacist insulin use: without long term care pharmacist use Diabetes mellitus complication status: with other specified complication Qualified Code(s): E11.69 - Type 2 diabetes mellitus with other specified complication (7) HTN (hypertension) Hypertension type: primary hypertension Qualified Code(s): I10 - Essential (primary) hypertension
--- NOTE | 2024-01-08 12:51 | Discharge Summary ---
Date of Service January 08, 2024 Admission HPI Per Admitting Provider Patient is a 73 year old F with complex history, PMH atrial fibrillation, DM II, HTN, dyslipidemia, history of hepatitis C s/p treatment, B12 deficiency, osteoporosis, extremity gangrene, GI bleed and others listed below presented to ER at request of solar field service technician, Dr Rod for Right foot wound infection. History obtained from patient, inpatient and outpatient chart review. Multiple hospitalizations including complicated hospitalization on 07/26/2023 with septic shock due to complicated UTI requiring vasopressors, obstructive uropathy, grew out klebsiella, requiring cystoscopy and placement of R ureteral sent early on 07/26/23. Patient unfortunately developed acrocyanosis of all 4 extremities as well as the tip of her nose 07/26-07/27, thrombocytopenia, as well as required intubation, developed new a-fib, right occiptal lobe lacunar infarct. Other hospitalization in 08/2023 for necrosis s/p leech therapy. Had hospitalization for bacteremia with Alph strep not S. pne/enterocococcus. On 11/01/23 She had left transmetatarsal amputation of her foot by Dr Rod at [facility] and postoperatively she developed blood loss anemia with hemoglobin down to 6.1 requiring 3 units PRBCs. On 11/12/2023 she underwent right wrist amputation by Dr. Lay. Recent hospitalization at [facility] 12/04/2023- 12/09/23 for GI bleed. Per hospital admission notes patient was previously on Xarelto which had been held since 11/30/2023 and was to be resumed upon discharge. Reviewed patient's med rec from [facility] and it appears that patient has not been receiving Xarelto since 11/30/2023. On 12/20/2023 patient had right foot amputation by Dr. Rod at [facility] as well as further debridement of left lower leg stump. 12/20/23 deep wound culture + ESBL sensitive to ertapenem, gentamicin, Zosyn, tobramycin, + staff aureus resistant to clindamycin otherwise pansensitive. Today 12/27/2023 patient was seen by solar field service technician, Dr. Rod in clinic who noted right stump wound with some dehiscence and slight necrosis with localized erythema and slight discharge concerning for infection. Spoke with Dr. Rod who states that he does not feel area requires debridement or surgical intervention at this time and IV antibiotics and wound care should be attempted first with plan to return to podiatry clinic for further follow up. Patient reports that she feels in her baseline health and has not noted any fever/chills, N/V/D. Denies any increased extremity pain. Areas have been dressed so patient has not visualized areas. She reports left hand gangrene seems at baseline and is to have future amputation left hand when clinically able. Denies diaphoresis, SEGAL, dizziness, CP, SOB, orthopnea, palpitations, cough, sore throat, rhinorrhea, abdominal pain, extremity edema, rashes, urinary symptoms. Admission Exam Per Admitting Provider General: no acute distress, chronically ill appearing elderly female Head: normocephalic, atraumatic Eyes: conjunctiva non-injected, anicteric ENT: normal inspection external ears, nose, mucous membranes moist Neck: supple, trachea midline Lungs: clear, no respiratory distress, no wheezing/rhonchi/rales CV: RRR, no pretibial edema Abd: normal BS, soft, non-tender Ext: no calf tenderness, RUE: +hand amputation, stump with leighton in place without any erythema or discharge. LUE: +left hand gangrene. RLE: +distal foot amputation with sutures in place with erythema of stump with slight yellow drainage noted on dressing with tenderness to palpation, no red streaking up leg. LLE: +distal foot amputation with stump with sutures in place without significant erythema and no noted drainage Neuro: A&O x 3, no focal deficits noted, normal affect Skin: as above in extremities, otherwise skin warm, dry Principal Diagnosis Right foot surgical site infection s/p debridement and bone biopsy Postoperative wound infection Dry gangrene of left hand Discharge Data Allergies Allergy/AdvReac Type Severity Reaction Status Date / Time No Known Allergies Allergy Verified 12/04/23 15:14 Consultations 12/27/23 14:14 ED Decision to Admit Stat 12/27/23 21:51 Consult Infectious Diseases Routine Consult Orthopedic Surgery Routine 01/01/24 12:41 Consult Podiatry Routine Procedures Performed Operation Date: 01/03/24 12:35 Actual Procedures p Right Foot Excisional Debridement with Bone Biopsy(Right) - Jt Lopez DPM Ordered Studies Laboratory Results WBC 7.45 K/ul (4.8-10.8) 01/07/24 07:23 RBC 3.71 M/uL (4.20-5.40) L 01/07/24 07:23 Hgb 9.8 g/dl (12.0-16.0) L 01/07/24 07:23 Hct 30.9 % (37.0-47.0) L 01/07/24 07:23 MCV 83.3 fL (80.0-100.0) 01/07/24 07:23 MCH 26.4 pg (25.0-34.0) 01/07/24 07:23 MCHC 31.7 g/dL (32.0-36.0) L 01/07/24 07:23 RDW Std Deviation 55.1 fL (36.4-46.3) H 01/07/24 07:23 RDW Coeff of Mary 18.1 % (11.5-14.5) H 01/07/24 07:23 Plt Count 363 K/uL (130-400) 01/07/24 07:23 MPV 9.1 fL (9.4-12.4) L 01/07/24 07:23 Immature Gran % (Auto) 1.1 % 12/28/23 06:32 Neut % (Auto) 74.9 % 12/28/23 06:32 Lymph % (Auto) 16.4 % 12/28/23 06:32 [place] % (Auto) 6.3 % 12/28/23 06:32 Eos % (Auto) 0.9 % 12/28/23 06:32 Baso % (Auto) 0.4 % 12/28/23 06:32 Neut # (Auto) 7.36 K/uL (1.40-6.50) H 12/28/23 06:32 Lymph # (Auto) 1.61 K/uL (1.20-3.40) 12/28/23 06:32 [place] # (Auto) 0.62 K/uL (0.11-0.59) H 12/28/23 06:32 Eos # (Auto) 0.09 K/uL (0.00-0.50) 12/28/23 06:32 Baso # (Auto) 0.04 K/uL (0.00-0.20) 12/28/23 06:32 Immature Gran # (Auto) 0.11 K/uL (0.01-0.20) 12/28/23 06:32 VBG pH 7.41 (7.36-7.41) 12/27/23 14:05 VBG pCO2 44 mmHg (38-50) 12/27/23 14:05 VBG pO2 51 mmHg 12/27/23 14:05 VBG HCO3 28 mmol/L 12/27/23 14:05 VBG O2 Saturation 83.0 % 12/27/23 14:05 VBG Base Excess 2.8 mEq/L 12/27/23 14:05 Sodium 139 mmol/L (136-145) 01/07/24 07:23 Potassium 4.5 mmol/L (3.5-5.1) 01/07/24 07:23 Chloride 105 mmol/L (98-107) 01/07/24 07:23 Carbon Dioxide 27 mmol/L (21-32) 01/07/24 07:23 Anion Gap 7 (3-11) 01/07/24 07:23 BUN 15 mg/dl (6-23) 01/07/24 07:23 Creatinine 0.63 mg/dl (0.6-1.2) 01/07/24 07:23 Est Cr Clr Drug Dosing 74.5 ml/min 01/07/24 07:23 Est GFR ( Amer) 103.1 ml/min 01/07/24 07:23 Est GFR (Non-Af Amer) 89.0 ml/min 01/07/24 07:23 BUN/Creatinine Ratio 23.8 (10-20) H 01/07/24 07:23 Glucose 133 mg/dl (70-99(Fasting)) H 01/07/24 07:23 POC Glucose 161 mg/dl (70-99) H 01/08/24 11:27 Lactate 1.6 mmol/L (0.4-2.0) 12/27/23 20:56 Calcium 9.1 mg/dl (8.6-10.3) 01/07/24 07:23 Phosphorus 4.2 mg/dl (2.5-4.9) 01/04/24 06:20 Magnesium 1.9 mg/dl (1.7-2.4) 01/04/24 06:20 Total Bilirubin 0.3 mg/dl (0.2-1.0) 12/27/23 12:55 Direct Bilirubin 0.1 mg/dl (0-0.2) 12/27/23 12:55 AST 11 U/L (13-39) L 12/27/23 12:55 ALT 7 U/L (7-52) 12/27/23 12:55 Alkaline Phosphatase 64 U/L (34-104) 12/27/23 12:55 Total Creatine Kinase 15 U/L (26-192) L 12/29/23 05:55 Troponin I High Sens 14.1 pg/ml (0-14) H 12/27/23 12:55 Total Protein 7.3 gm/dl (6.0-8.3) 12/27/23 12:55 Albumin 3.5 gm/dl (3.4-5.0) 12/27/23 12:55 Procalcitonin 0.03 ng/ml (0-0.5) 12/27/23 12:55 Urine Color Yellow 12/28/23 Unknown Urine Appearance Clear (Clear) 12/28/23 Unknown Urine pH >= 9.0 (4.5-7.5) H 12/28/23 Unknown Ur Specific [place] 1.012 (1.000-1.030) 12/28/23 Unknown Urine Protein Negative (Negative) 12/28/23 Unknown Urine Glucose (UA) Negative (Negative) 12/28/23 Unknown Urine Ketones Negative (Negative) 12/28/23 Unknown Urine Blood Negative (Negative) 12/28/23 Unknown Urine Nitrite Negative (Negative) 12/28/23 Unknown Urine Bilirubin Negative (Negative) 12/28/23 Unknown Urine Urobilinogen Negative (Negative) 12/28/23 Unknown Ur Leukocyte Esterase Trace (Negative) H 12/28/23 Unknown Urine WBC (Auto) 11-20 /hpf (0-5) H 12/28/23 Unknown Urine RBC (Auto) 0-2 /hpf (0-2) 12/28/23 Unknown U Hyaline Cast (Auto) 0-2 /lpf (0-2) 12/28/23 Unknown U Epithel Cells (Auto) 0-2 /hpf (0-2) 12/28/23 Unknown Urine Bacteria (Auto) None Seen (None Seen) 12/28/23 Unknown SARS-CoV-2 (PCR) NEGATIVE (Negative) 12/27/23 13:45 Influenza Type A (PCR) Negative (Neg) 12/27/23 13:45 Influenza Type B (PCR) Negative (Neg) 12/27/23 13:45 RSV (RT-PCR) Negative (Neg) 12/27/23 13:45 Staphylococcus sp PCR (NotDetected) 12/27/23 12:55 mecA/C-Methicil Resis Gene DETECTED (NotDetected) A 12/27/23 12:55 Staph epidermidis (PCR) DETECTED (NotDetected) A 12/27/23 12:55 Bld Cult ID Panel PCR See PCR Comment (NotDetected) 12/27/23 12:55 Impressions Chest X-Ray 12/27/23 12:20 SINGLE VIEW CHEST CLINICAL HISTORY: Sepsis. FINDINGS: 2 AP, portable, upright chest radiographs are compared to chest x-ray and chest CT dated 08/25/2023. The heart is mildly enlarged noting atherosclerotic calcification of the thoracic aorta. The pulmonary vasculature is noncongested. Emphysema and chronic interstitial thickening is somewhat prev ious. There is bibasilar scarring/atelectasis. No airspace consolidation or pleural effusion is identified. No pneumothorax is seen. The skeletal structures are osteopenic. The bony thorax is grossly intact. IMPRESSION: Cardiomegaly and emphysema with no active disease in the chest. ACT 112: Negative or not required by law. Electronically signed by: Pravin Nguyen M.D. 12/27/2023 12:51 PM Foot X-Ray 12/27/23 14:02 XR foot RT 2V CLINICAL HISTORY: foot wound; r/o free air TECHNIQUE: 3 views of the right foot were obtained. Comparison: None available at the time of this dictation. FINDINGS: Redemonstration of amputation at the right midfoot. No definite focal bony erosions. Soft tissue swelling is suggested. IMPRESSION: Soft tissue swelling is partially visualized. No definite erosions are seen. ACT 112: Negative or not required by law. Electronically signed by: Jomar Palomo M.D. 12/27/2023 2:43 PM Ankle MRI 12/31/23 14:12 MR ankle RT wo con HISTORY: foot wound R/O Osteomyelitis TECHNIQUE: Multiplanar multisequence MRI of the right ankle was performed without contrast. COMPARISON STUDY: Right foot radiograph 12/19/2023. FINDINGS: Motion artifact results in suboptimal evaluation of the ankle and hindfoot. The patient is status post midfoot amputation at the level of the bases of the cuneiform bones. Abnormal marrow signal within the residual cuboid bone and cuneiform bones is nonspecific and could be due to the recent amputation. A superimposed osteomyelitis would be impossible to exclude. There is soft tissue edema at the amputation site. No loculated fluid collections on this noncontrast study to suggest an abscess. Multifocal areas of marrow signal abnormality seen throughout the majority of the residual bones within the foot. These are consistent with bone infarcts. No evidence for articular collapse. No acute fracture or dislocation. No significant joint effusion within the ankle/hindfoot. The residual flexor, extensor, and peroneal tendons are intact. The visualized Achilles tendon is unremarkable. The medial and lateral stabilizing ligaments of the ankle appear intact. Normal marrow signal intensity seen within the distal tibia and fibula with no erosive changes within the ankle to suggest an osteomyelitis. There is mild subcutaneous edema within the ankle and hindfoot. The residual proximal plantar fascia is intact. There are a few punctate foci of susceptibility artifact within the soft tissues at the amputation site. This favors a few small foci of soft tissue gas and suture material. Again, this could be due to recent postoperative change. A superimposed gas-forming organism would be difficult to exclude. IMPRESSION: 1. The patient is status post midfoot amputation at the level of the bases of the cuneiform bones. Abnormal marrow signal within the residual cuboid bone and cuneiform bones is nonspecific and could be due to the recent amputation. A superimposed osteomyelitis would be impossible to exclude. 2. There is soft tissue edema at the amputation site. No loculated fluid collections on this noncontrast study to suggest an abscess. Multifocal areas of marrow signal abnormality seen throughout the majority of the residual bones within the foot. These are consistent with bone infarcts. 3. Multifocal areas of marrow signal abnormality seen throughout the majority of the residual bones within the foot consistent with bone infarcts. 4. There are a few punctate foci of susceptibility artifact within the soft tissues at the amputation site. This favors a few small foci of soft tissue gas and suture material. Again, this could be due to recent postoperative change. A superimposed gas-forming organism would be difficult to exclude. ACT 112: Negative or not required by law. Electronically signed by: Moshe Lofton M.D. 12/31/2023 6:59 PM Hospital Course (1) Wound, open, foot with complication: (2) Elevated lactic acid level: (3) Gangrene: (4) Hypomagnesemia: (5) Atrial fibrillation: (6) Type 2 diabetes mellitus: (7) HTN (hypertension): (8) Dyslipidemia: (9) Duodenal arteriovenous malformation: Plan Ms Kelly is a 73 year old F with complex history, PMH atrial fibrillation, DM II, HTN, dyslipidemia, history of hepatitis C s/p treatment, B12 deficiency, osteoporosis, extremity gangrene, GI bleed and others listed below presented to ER at request of solar field service technician, Dr Rod for Right foot wound infection. S/P right foot amputation by Dr. Rod at [facility] on 12/20/23. 12/20/23 deep wound culture + ESBL sensitive to ertapenem, gentamicin, Zosyn, tobramycin, + staff aureus resistant to clindamycin otherwise pansensitive. Seen in podiatry clinic on 12/27/[address] Rod who concern for right wound infection and wound dehiscence. Since admission, patient was evaluated by Ortho and ID. Ortho felt that the dry gangrene of upper extremities is stable and she can follow with Dr. Lay at [facility]. ID recommended MRI. MRI could not r/o OM. Recommended Podiatry to eval for debridement and deep wound culture. Podiatry evaluated patient and on 01/02 patient underwent debridement of necrotic tissue on right foot. ID suggested it would be reasonable to discontinue ertapenem as of 01/02. wound vac placed Right foot surgical site infection s/p debridement and bone biopsy -01/02 Abnormal blood cultures, likely contaminant H/O ESBL Postoperative wound infection Foot X ray:Soft tissue swelling is partially visualized. No definite erosions are seen. Blood culture: 07/04 growing coagulase-negative staph not Lugdunensis--likely contamination Right foot wound culture: MSSA MRI unable to exclude OM, s/p bone biopsy ID on board. Prior hospitalist Discussed with Dr. Hodge over phone--given MRI findings and wound appearance, patient would benefit from debridement --S/P Right Foot Excisional Debridement with Bone Biopsy(Right) by Dr. Lopez on 01/03/2024 Appreciate podiatry help -Wound Cx MSSA Plan hospitalist discussed with ID:IV abx transition to ceftin BID (started 01/05)--complete 14-day course Wound care for wound vac assessment -Irrigating Wound vac placement 01/05 Plan to discharge to rehab facility today Left Foot Wound H/O left foot gangrene s/p left transmetatarsal amputation of her foot by Dr Rod at [facility] 12/20/23 had further debridement and surgery for wound dehiscence by Dr Rod at [facility]. 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 Lay on 11/12/2023 Plan for OP follow up with [facility] Hypomagnesemia Replace and monitor Paroxysmal Atrial Fibrillation Previous anticoagulated on Xarelto Xarelto has been held on 11/30/23 as developed GI bleed. Was planned to restart Xarelto on 12/10/23 after discharge however has been held at [facility] Current sinus rhythm Continue digoxin, diltiazem Discussed with patient regarding risks Vs benefits of using Xarelto/Eliquis. Patient agrees to be started on Eliquis. Continue Eliquis DM II A1c: 6.4 on 10/13/23 Hold home oral agents NovoLog sliding scale per protocol HTN Continue diltiazem HLD continue statin Prior GIB Hx of AVMs History GI bleed with hospitalization at [facility] 12/04/2023- 12/09/23 with EGD consi stent with duodenal AV malformation S/P Cautery and GI recommended Protonix BID Denies melena, hematochezia, abdominal pain Continue PPI DVT Px Eliquis Code Status Full Code Disposition SNF Total Time Total Time Spent Total Time Spent (In Minutes): 54 minutes Discharge Plan Discharge Items Patient Disposition: Transfer Assisted Fac Reason For Visit: FOOT WOUND Discharge Diagnosis: Right foot surgical site infection s/p debridement and bone biopsy Postoperative wound infection Dry gangrene of left hand Activity: Resume your previous activity Exercise/Sports: Gradually increase as tolerated Non-emergency contact: Primary Care Provider and Surgeon Call non-emergency contact if: you have any medication questions, your symptoms worsen, your pain is concerning for you, you have a fever, your wound has increased redness, your wound has increased drainage and your wound pain has increased Follow-up/Referrals: Sulema Coughlin MD [Primary Care Provider] - Diet: Carb Consistent or DM2 Addtl Attending Provider Instructions: Follow-up with your primary care physician in 1 week upon discharge from rehab facility Follow-up with your solar field service technician Dr. Lopez/Dr. Rod as recommended in 1-2 weeks Follow-up with your orthopedic surgeon for management of left hand dry gangrene and removal of staple from right upper extremity stump Follow-up with wound clinic as recommended --Complete the antibiotic course Ceftin as prescribed. -- Continue wound care as recommended by your solar field service technician/wound care clinic at rehab facility. -- Continue wound VAC as recommended Seek immediate medical attention if your symptoms reoccur or worsen Please take all medications as instructed on discharge list below. Please call if you have any questions or problems. You can reach a [facility] hospitalist on duty at [facility] 24 hours a day by calling [phone] Pending Studies at Discharge: No Stand-Alone Forms: My [facility] Skilled Items Patient informed of condition?: Yes DNR: No Discharge Level of Care: Skilled Communicable Disease: No Discharge Prognosis: Stable Lines: None Urinary Catheter: No Medications and DC Order Prescriptions: New cefuroxime axetil 500 mg Tablet 500 mg PO BIDM Qty: 24 0RF Eliquis 5 mg Tablet 5 mg PO BID Qty: 60 0RF Dakin's Solution 0.125 % Solution 1 applic EXT UD Qty: 473 0RF Rx Instructions: as directed by wound Nurse Continued magnesium oxide 400 mg (241.3 mg magnesium) Tablet 400 mg PO QAM Qty: 60 0RF atorvastatin 40 mg Tablet 40 mg PO HS Qty: 30 0RF acetaminophen [Tylenol] 325 mg Tablet 650 mg PO Q6H MDD 3,000mg/24hr PRN (Reason: FEVER >100/PAIN) Qty: 30 0RF diltiazem HCl 180 mg Capsule,Extended Release 24hr 180 mg PO QAM Qty: 30 0RF Rx Instructions: Hold for HR<60 or SBP<100 cyanocobalamin (vitamin B-12) 1,000 mcg Tablet 1,000 mcg PO QAM Qty: 30 0RF melatonin 3 mg Tablet 3 mg PO HS PRN (Reason: sleep) Qty: 30 0RF tamsulosin 0.4 mg Capsule 0.4 mg PO HS Qty: 30 0RF metformin 1,000 mg Tablet 1,000 mg PO BIDWMEAL Qty: 60 0RF digoxin [Digitek] 125 mcg (0.125 mg) tablet 0.125 mg PO HS Qty: 30 0RF Rx Instructions: Hold for HR<60 or SBP<100 ondansetron HCl 4 mg Tablet 4 mg PO Q6H PRN (Reason: Nausea) Rx Instructions: administer prior to therapy sessions magnesium hydroxide 400 mg/5 mL Suspension 2,400 mg PO UD PRN (Reason: Constipation) Rx Instructions: no BM for 3 days, administer MOM on 73 shift bisacodyl [Dulcolax (bisacodyl)] 10 mg Suppository 10 mg IN UD PRN (Reason: Constipation) Rx Instructions: day 3, 3-11pm shift, if no BM after MOM Fleet Enema 19-7 gram/118 mL Enema 118 ml IN UD PRN (Reason: Constipation) Rx Instructions: no BM after dulcolax, administer on 3 shift day 4 Saccharomyces boulardii [Florastor] 250 mg Capsule 250 mg PO QAM alendronate [Fosamax] 70 mg tablet 70 mg PO WK Rx Instructions: MONDAYS venlafaxine 150 mg capsule,extended release 24hr 150 mg PO QAM pantoprazole 40 mg tablet,delayed release (DR/EC) 40 mg PO BID calcium carbonate-vitamin D3 [Calcium 500 + D] 500 mg-5 mcg (200 unit) tablet 1 tab PO QAM povidone-iodine [Betadine] 10 % Solution See Rx Instructions .ROUTE .COMPLEX Rx Instructions: Apply to left hand topically twice daily for wound care. Discontinued cephalexin 500 mg capsule 500 mg PO BID Rx Instructions: Start Date 12/21/23 x7 day supply Discharge Orders: Discharge Order (Routine); Ordered 01/08/24 Ordered By: Anton Marrufo/Other Patient Handouts: Nutrition for Wound Healing, Managing Type 2 Diabetes Admission Data Admit Date/Time: 12/27/23 17:39 Attending Provider: Anton Chew Admit Provider: Justino Sierra Primary Care Provider: Sulema Coughlin Other Providers: Justino Sierra; Kvng Galindo; Corinne Hodge; Temo Diallo I.; Sung Rowe II; Nichole Begum; Yaniv Baca; Conor Echavarria; Ivana Zarco; Shelton Lay; Jt Lopez.; [facility]; [facility]
--- NOTE | 2024-01-14 07:56 | Coding Query ---
SEPSIS To promote full compliance with coding requirements relating to patient care, physician participation is requested in all cases of continuous process machine operator uncertainty. Please assist us with the question(s) below: In responding to this query, please exercise your independent professional judgement. The fact that a question is asked does not imply that any particular answer is desired or expected. We appreciate your clarification on this issue. Throughout the medical record, you have clearly documented a localized infection and your patient has clinical evidence of a generalized sepsis or severe sepsis. Clinical Indicators: H&P: * Elevated lactic acid level * In ER afebrile, vitals stable. WBC: 11, Lactate: 2.8, procalcitonin: 0.03 * Gangrene * Will start on iv ertapenem daily, wound care, IV antibiotics * Wound, open, foot Progress Note 12/28/23: * Abnormal blood cultures Infectious Disease Consult 12/30/23: * Severe Sepsis * 12/26: 1 of 4 bottles of blood culture growing coagulase-negative staph * 12/26: Right foot superficial culture growing staph aureus (MSSA) Progress Note 01/01/24: * Abnormal blood cultures, likely contaminant ____ () Sepsis Specify Organism Specify Associated Condition/Diagnosis () Present on Admission () Not present on admission () Unable to clinically determine () Severe Sepsis (Sepsis associated with acute organ dysfunction) Specify Organism Specify Associated Condition/Diagnosis (x) Present on Admission () Not present on admission () Unable to clinically determine () Septic Shock (Severe sepsis with acute circulatory failure, unexplained by other causes) () Present on Admission () Not present on admission () Unable to clinically determine () Other, patient has: () Unable to determine. MTDD
== END 2024-01-08 14:13 | DRG 856 ==
LOC: ED 12:01 → SUATTDRO 17:39 → 2W 17:39 → 3W 01-05 14:42

== ENCOUNTER 2024-06-16 11:45 | Inpatient (IN) ==
--- NOTE | 2024-06-16 12:41 | Emergency Department Note ---
Impression & Plan Acute UTI, History of partial amputation of left hand, Elevated lactic acid level, Confusion ED Provider Note NAME: ALEXIS GALEANO AGE: 73 SEX: F : 1950 ARRIVES VIA: Ambulance INFORMANT: Patient ED PROVIDER(S): Agustin Smith MD CHIEF COMPLAINT: Confusion, infection, referred. PLAN: Disposition: Admit MEDICAL DECISION MAKING: The patient is a pleasant 73-year-old woman with a complicated past medical history of osteomyelitis with distal extremity amputations who presents to the emergency department via EMS from her [facility] facility at [facility] for evaluation of generalized weakness/malaise, change in mental status in the setting of concern for infection of the patient's amputated stump of her left hand where she had surgery performed at [facility] on 06/09. Per accompanying records, perioperative cultures of the patient's osteomyelitis grew ESBL E. coli and MRSA but have not started antibiotics and are awaiting ID consultation for recommendations. Today the patient apparently asked staff "when did they change my room" and the patient's room had not been changed. Because of this she was sent for assessment. Patient does not feel any acute change in her thinking. She denies any pain in her stump or otherwise. She denies fevers, chills, cough, congestion, GI or symptoms. On evaluation the patient is no distress, afebrile with stable vital signs. She appears clinically dry. The patient's left hand amputated stump demonstrates some mild irritation and evidence of some discharge with scant greenish crusting. There is no active discharge. There is no dehiscence. The ulnar aspect of the staple line appears inflammed with delayed healing. EKG without overt acute ischemia. Chest x-ray with question of pleural effusion however better characterized on CT imaging and consistent with bibasilar atelectasis versus scarring. WBC and platelets within normal limits. H/H similar to prior. Chemistry without metabolic acidosis. BUNs/creatinine 24 consistent with patient's clinically dry appearance. Initial lactic acid elevated at 2.8 however improved following initial hydration. LFTs unremarkable. High-sensitivity troponin 4.9, within normal limits. Procalcitonin is not elevated. TSH within normal limits. UA is consistent with infection with WBCs, positive nitrites and 4+ bacteria. CT of the head was negative for acute abnormalities. CT of the left wrist/hand demonstrates postoperative changes without evidence of osteomyelitis or abscess. CT of the abdomen pelvis was negative for acute abnormalities. Given patient's recent perioperative wound cultures patient was treated empirically with meropenem and vancomycin at this time. Case was discussed with Dr. Laughlin, [facility] [place], who will evaluate the patient for admission. Further management per admitting team. Triage Nursing notes reviewed and agree them. Prior/external medical records reviewed Vital Signs: reviewed Differential diagnosis: Infection, dehydration, metabolic abnormality, hypo/hyperglycemia, electrolyte disturbance, anemia, hypoxia, cardiac sources, intracerebral event, toxicologic, neurologic, as well as other pathologies. ER treatment provided: See below. Diagnostics interpreted by me: ECG: Normal sinus rhythm, 80 bpm, no ectopy, no overt ST elevation or depression, QTc 385, QRS 78 Cardiac Monitoring: An order for continuous cardiac monitoring was placed and demonstrated Normal sinus rhythm, 80 bpm, no ectopy Laboratory studies: See below Imaging studies: See below Consultation(s): Dr. Laughlin [facility] hospitalist. HPI: The patient is a pleasant 73-year-old woman with a complicated past medical history of osteomyelitis with distal extremity amputations who presents to the emergency department via EMS from her [facility] facility at [facility] for evaluation of generalized weakness/malaise, change in mental status in the setting of concern for infection of the patient's amputated stump of her left hand where she had surgery performed at [facility] on 06/09. Per accompanying records, perioperative cultures of the patient's osteomyelitis grew ESBL E. coli and MRSA but have not started antibiotics and are awaiting ID consultation for recommendations. Today the patient apparently asked staff "when did they change my room" and the patient's room had not been changed. Because of this she was sent for assessment. Patient does not feel any acute change in her thinking. She denies any pain in her stump or otherwise. She denies fevers, chills, cough, congestion, GI or symptoms. ROS: See above HPI for pertinent positives & negatives. A total of 10 systems reviewed and were otherwise negative. VITALS:See Below PHYSICAL EXAMINATION: GENERAL: Awake, alert, chronically ill-appearing, in no distress HENT: Normocephalic, atraumatic. Oropharynx with dry mucous membranes and otherwise unremarkable. EYES: Normal conjunctiva. Sclera non-icteric. NECK: Supple. No nuchal rigidity. FROM. No JVD. RESPIRATORY: Clear to auscultation. CARDIAC: Regular rate, normal rhythm. Extremities warm and well perfused. Pulses equal. ABDOMEN: Soft, non-distended. No tenderness to palpation. No rebound or guarding. No masses. MUSCULOSKELETAL: Chest examination reveals no tenderness. The back is symmetrical on inspection without obvious abnormality. There is no CVA tenderness to palpation. Left hand amputated stump demonstrates some mild irritation and evidence of some discharge with scant greenish crusting. There is no active discharge. There is no dehiscence. The ulnar aspect of the staple line appears inflammed with delayed healing. Right hand with prior partial amputation. LOWER EXTREMITIES: Calves are equal size bilaterally and non-tender. No edema. No discoloration. Prior partial amputation of bilateral feet NEURO: Alert to self, place and situation. No focal sensory or motor deficits noted. SKIN: No rash or jaundice noted. Agustin Smith MD Past Med/Surg History Problem List (Updated 06/17/24 @ 02:28 by Agustin Smith MD) Confusion (Acute) Elevated lactic acid level (Acute) History of partial amputation of left hand (Acute) Acute UTI (Acute) Acute metabolic encephalopathy Lone atrial fibrillation Osteomyelitis of foot, right, acute Severe sepsis Amputation stump infection Elevated lactic acid level (Acute) Leukocytosis (Acute) Wound, open, foot with complication (Acute) Sepsis (Acute) Duodenal arteriovenous malformation Acute blood loss anemia GI bleed (Acute) Melanotic stools Gangrene of hand Complicated urinary tract infection (Acute) Dry gangrene (Acute) Bacteremia due to Gram-positive bacteria Ureteral stent present (Acute) Gangrene Thrombocytopenia Thrombocytopathia Anemia Hypokalemia (Acute) Hypomagnesemia (Acute) Nephrolithiasis Dyslipidemia Type 2 diabetes mellitus NIDDM Ureterolithiasis (Acute) hx Bacteremia (Acute) hx Atrial fibrillation with rapid ventricular response currently on chronic AC w/coumadin HTN (hypertension) S/P wrist surgery left 5 yrs ago Medical History Atrial fibrillation Carotid artery stenosis Moderate LEFT ICA stenosis, possible high risk, ulcerative plaque in this location. There is streak artifact from the calcium and patient motion limiting evaluation. History of upper gastrointestinal bleeding 07/2023 Non-occlusive thrombus right internal jugular vein Cognitive communication deficit in setting of encephalopathy Dysphagia, oral phase denies choking, denies specialized diet at this time Muscle weakness (generalized) Difficulty in walking, not elsewhere classified Urinary tract infection, site not specified Klebsiella pneumoniae [k. 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 ventilation. sepsis due to complicated UTI and bacteremia w/klebsiella pneumoniae, tx primarily w/IV cefepime. due to her severe sepsis and need for IV pressor, developed acrocyanosis/gangrene to all 4 extremities as well as distal nose. 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/gangrene" Complicated urinary tract infection Hydronephrosis due to obstruction of ureter hx Closed fracture of left distal radius and ulna hx History of COVID-19 07/2023, [facility], hospitalized 07/26/23-08/21/23 History of colon polyps Anxiety Surgical History S/P cystoscopy with ureteral stent placement 09/05/23>w/ureteroscopy and stone extraction, stent exchange; stent removed 09/09/23 History of colonoscopy History of hysterectomy History of tonsillectomy Family History Grandmother Family history of diabetes mellitus Family history of colon cancer Grandfather Family history of colon cancer Aunt Family history of colon cancer Uncle Family history of colon cancer Social History Smoking Status: Former smoker Tobacco Type: Cigarettes Second Hand Exposure: No; Do You Dip or Chew Tobacco: No; Hx Alcohol Use: No Hx Substance Use: No Preferred Language: Norwegian Communication Ability: Effective Plunger Scoop Operator Required: No Beliefs That Will Affect Care: None Current Living Situation: Personal Care Facility Current Living Situation Comment: [facility] Feels Safe at Home: Yes Safety Concerns: Feels Safe At This Time Assistive Devices: Wheelchair Allergies Allergies Allergy/AdvReac Type Severity Reaction Status Date / Time No Known Allergies Allergy Verified 02/05/24 10:07 Home Meds Home Medications Medication Instructions Recorded Confirmed alendronate 70 mg tablet (Fosamax) 70 mg PO WK 10/14/23 06/16/24 bisacodyl 10 mg rectal suppository 10 mg NC UD PRN Constipation 10/14/23 06/16/24 (Dulcolax (bisacodyl)) calcium 500 mg (as 1 tab PO QAM 10/14/23 06/16/24 carbonate)-vitamin D3 5 mcg (200 unit) tablet (Calcium 500 + D) magnesium hydroxide 400 mg/5 mL 2,400 mg PO UD PRN Constipation 10/14/23 06/16/24 oral suspension pantoprazole 40 mg tablet,delayed 40 mg PO BID 10/14/23 06/16/24 release sodium phosphates 19 gram-7 118 ml NC UD PRN Constipation 10/14/23 06/16/24 gram/118 mL enema (Fleet Enema) aluminum-mag hydroxide-simethicone 10 ml PO Q4H PRN Stomach Upset 06/16/24 06/16/24 400 mg-400 mg-40 mg/5 mL oral susp (Mylanta Maximum Strength) oxycodone 5 mg tablet 5 mg PO Q4H PRN Pain (Scale Score 06/16/24 06/16/24 5 - 8) oxycodone 5 mg tablet 10 mg PO Q4H PRN Pain (Scale Score 06/16/24 06/16/24 9 -10) venlafaxine 75 mg capsule,extended 75 mg PO QAM 06/16/24 06/16/24 release 24 hr Previous Rx's Medication Instructions Recorded acetaminophen 325 mg tablet 650 mg (2 x 325 mg) PO Q6H PRN 09/10/23 (Tylenol) FEVER >100/PAIN #30 tabs atorvastatin 40 mg tablet 40 mg PO HS #30 tabs 09/10/23 cyanocobalamin (vitamin B-12) 1,000 mcg PO QAM #30 tabs 09/10/23 1,000 mcg tablet digoxin 125 mcg (0.125 mg) tablet 0.125 mg PO HS #30 tabs 09/10/23 (Digitek) diltiazem HCl 180 mg 180 mg PO QAM #30 caps 09/10/23 capsule,extended release 24 hr magnesium oxide 400 mg (241.3 mg 400 mg PO QAM #60 tabs 09/10/23 magnesium) tablet metformin 1,000 mg tablet 1,000 mg PO BIDWMEAL #60 tabs 09/10/23 tamsulosin 0.4 mg capsule 0.4 mg PO HS #30 caps 09/10/23 Results & Data (ED) Vital Signs Vital Signs - 24 hr 06/16/24 11:46 06/16/24 12:04 06/16/24 12:30 Temperature 36.9 C Temperature Source Oral Pulse Rate 80 80 Pulse Rate [Apical] 78 Respiratory Rate 15 19 Blood Pressure 118/69 Blood Pressure [Right Arm] 133/74 Blood Pressure Mean 85 Blood Pressure Mean [Right Arm] 93 Blood Pressure Position Semi-fowlers Blood Pressure Position [Right Arm] Semi-fowlers Pulse Oximetry 99 96 Oxygen Delivery Method Room Air Room Air Sepsis Recent Fever Within 48 Hours No Sepsis New/Unexplained Change in Mental Status Yes Sepsis Action Taken by Nursing No Action Required 06/16/24 13:00 06/16/24 13:15 06/16/24 13:30 Temperature Temperature Source Pulse Rate Pulse Rate [Apical] 75 72 71 Respiratory Rate 20 16 16 Blood Pressure Blood Pressure [Right Arm] 138/66 130/65 127/61 Blood Pressure Mean Blood Pressure Mean [Right Arm] 90 86 83 Blood Pressure Position Blood Pressure Position [Right Arm] Semi-fowlers Semi-fowlers Semi-fowlers Pulse Oximetry 97 98 97 Oxygen Delivery Method Room Air Room Air Room Air Sepsis Recent Fever Within 48 Hours Sepsis New/Unexplained Change in Mental Status Sepsis Action Taken by Nursing 06/16/24 13:45 06/16/24 14:00 06/16/24 14:15 Temperature Temperature Source Pulse Rate Pulse Rate [Apical] 69 20 L 72 Respiratory Rate 17 20 18 Blood Pressure Blood Pressure [Right Arm] 128/60 130/62 131/65 Blood Pressure Mean Blood Pressure Mean [Right Arm] 82 84 87 Blood Pressure Position Blood Pressure Position [Right Arm] Semi-fowlers Semi-fowlers Semi-fowlers Pulse Oximetry 98 97 95 Oxygen Delivery Method Room Air Room Air Room Air Sepsis Recent Fever Within 48 Hours Sepsis New/Unexplained Change in Mental Status Sepsis Action Taken by Nursing 06/16/24 14:30 06/16/24 14:45 06/16/24 15:15 Temperature Temperature Source Pulse Rate Pulse Rate [Apical] 68 71 72 Respiratory Rate 20 15 16 Blood Pressure Blood Pressure [Right Arm] 132/73 131/62 131/60 Blood Pressure Mean Blood Pressure Mean [Right Arm] 92 85 83 Blood Pressure Position Blood Pressure Position [Right Arm] Semi-fowlers Semi-fowlers Pulse Oximetry 96 96 96 Oxygen Delivery Method Room Air Room Air Room Air Sepsis Recent Fever Within 48 Hours Sepsis New/Unexplained Change in Mental Status Sepsis Action Taken by Nursing 06/16/24 15:30 06/16/24 15:45 06/16/24 16:00 Temperature Temperature Source Pulse Rate Pulse Rate [Apical] 74 76 71 Respiratory Rate 15 16 15 Blood Pressure Blood Pressure [Right Arm] 129/59 L 126/61 129/61 Blood Pressure Mean Blood Pressure Mean [Right Arm] 82 82 83 Blood Pressure Position Blood Pressure Position [Right Arm] Semi-fowlers Semi-fowlers Pulse Oximetry 96 95 98 Oxygen Delivery Method Room Air Room Air Room Air Sepsis Recent Fever Within 48 Hours Sepsis New/Unexplained Change in Mental Status Sepsis Action Taken by Nursing 06/16/24 16:15 06/16/24 16:30 06/16/24 16:45 Temperature Temperature Source Pulse Rate Pulse Rate [Apical] 73 73 81 Respiratory Rate 17 16 15 Blood Pressure Blood Pressure [Right Arm] 111/63 138/69 132/63 Blood Pressure Mean Blood Pressure Mean [Right Arm] 79 92 86 Blood Pressure Position Blood Pressure Position [Right Arm] Semi-fowlers Semi-fowlers Semi-fowlers Pulse Oximetry 93 96 99 Oxygen Delivery Method Room Air Room Air Room Air Sepsis Recent Fever Within 48 Hours Sepsis New/Unexplained Change in Mental Status Sepsis Action Taken by Nursing 06/16/24 17:00 06/16/24 17:15 06/16/24 17:30 Temperature Temperature Source Pulse Rate Pulse Rate [Apical] 73 70 68 Respiratory Rate 16 15 14 Blood Pressure Blood Pressure [Right Arm] 137/78 137/77 140/68 Blood Pressure Mean Blood Pressure Mean [Right Arm] 97 97 92 Blood Pressure Position Blood Pressure Position [Right Arm] Semi-fowlers Semi-fowlers Pulse Oximetry 95 95 92 Oxygen Delivery Method Room Air Room Air Room Air Sepsis Recent Fever Within 48 Hours Sepsis New/Unexplained Change in Mental Status Sepsis Action Taken by Nursing 06/16/24 17:45 06/16/24 18:00 06/16/24 18:15 Temperature Temperature Source Pulse Rate Pulse Rate [Apical] 73 83 79 Respiratory Rate 16 17 15 Blood Pressure Blood Pressure [Right Arm] 136/66 137/68 143/68 H Blood Pressure Mean Blood Pressure Mean [Right Arm] 89 91 93 Blood Pressure Position Blood Pressure Position [Right Arm] Semi-fowlers Semi-fowlers Semi-fowlers Pulse Oximetry 94 92 97 Oxygen Delivery Method Room Air Room Air Room Air Sepsis Recent Fever Within 48 Hours Sepsis New/Unexplained Change in Mental Status Sepsis Action Taken by Nursing 06/16/24 18:45 Temperature Temperature Source Pulse Rate Pulse Rate [Apical] 67 Respiratory Rate 17 Blood Pressure Blood Pressure [Right Arm] 133/75 Blood Pressure Mean Blood Pressure Mean [Right Arm] 94 Blood Pressure Position Blood Pressure Position [Right Arm] Semi-fowlers Pulse Oximetry 98 Oxygen Delivery Method Room Air Sepsis Recent Fever Within 48 Hours Sepsis New/Unexplained Change in Mental Status Sepsis Action Taken by Nursing Laboratory Data Attestation: I reviewed the patient's lab results. 06/16/24 11:55 06/16/24 11:55 Lab Results 06/16/24 06/16/24 06/16/24 Range/Units 11:55 12:40 14:20 WBC 7.08 (4.8-10.8) K/ul RBC 3.75 L (4.20-5.40) M/uL Hgb 9.1 L (12.0-16.0) g/dl Hct 29.0 L (37.0-47.0) % MCV 77.3 L (80.0-100.0) fL MCH 24.3 L (25.0-34.0) pg MCHC 31.4 L (32.0-36.0) g/dL RDW Std Deviation 43.8 (36.4-46.3) fL RDW Coeff of Mary 15.7 H (11.5-14.5) % Plt Count 327 (130-400) K/uL MPV 9.2 L (9.4-12.4) fL Immature Gran % (Auto) 0.4 % Neut % (Auto) 70.1 % Lymph % (Auto) 20.2 % Treasure % (Auto) 7.6 % Eos % (Auto) 1.4 % Baso % (Auto) 0.3 % Neut # (Auto) 4.96 (1.40-6.50) K/uL Lymph # (Auto) 1.43 (1.20-3.40) K/uL Treasure # (Auto) 0.54 (0.11-0.59) K/uL Eos # (Auto) 0.10 (0.00-0.50) K/uL Baso # (Auto) 0.02 (0.00-0.20) K/uL Immature Gran # (Auto) 0.03 (0.01-0.20) K/uL PT 10.7 (9.0-12.0) Seconds INR 1.0 (0.9-1.1) Sodium 140 (136-145) mmol/L Potassium 4.1 (3.5-5.1) mmol/L Chloride 105 (98-107) mmol/L Carbon Dioxide 26 (21-32) mmol/L Anion Gap 9 (3-11) BUN 12 (6-23) mg/dl Creatinine 0.50 L (0.6-1.2) mg/dl Est Cr Clr Drug Dosing 88.0 ml/min eGFR 98.97 BUN/Creatinine Ratio 24.0 H (10-20) Glucose 123 H (70-99(Fasting)) mg/dl Lactate 2.8 H* (0.4-2.0) mmol/L Calcium 9.5 (8.6-10.3) mg/dl Phosphorus 3.1 (2.5-4.9) mg/dl Magnesium 1.6 L (1.7-2.4) mg/dl Total Bilirubin 0.3 (0.2-1.0) mg/dl Direct Bilirubin 0.0 (0-0.2) mg/dl AST 11 L (13-39) U/L ALT 7 (7-52) U/L Alkaline Phosphatase 41 (34-104) U/L Troponin I High Sens 4.9 (0-14) pg/ml Total Protein 6.5 (6.0-8.3) gm/dl Albumin 3.5 (3.4-5.0) gm/dl Procalcitonin < 0.02 (0-0.5) ng/ml TSH 0.416 (0.300-4.500) uIu/ml Urine Color Yellow Urine Appearance Cloudy A (Clear) Urine pH 8.5 H (4.5-7.5) Ur Specific [place] 1.017 (1.000-1.030) Urine Protein Trace H (Negative) Urine Glucose (UA) Negative (Negative) Urine Ketones Negative (Negative) Urine Blood Negative (Negative) Urine Nitrite Positive A (Negative) Urine Bilirubin Negative (Negative) Urine Urobilinogen Negative (Negative) Ur Leukocyte Esterase 3+ H (Negative) Urine WBC (Auto) >50 H (0-5) /hpf Urine RBC (Auto) 0-2 (0-2) /hpf U Hyaline Cast (Auto) 6-10 H (0-2) /lpf U Epithel Cells (Auto) 0-2 (0-2) /hpf Urine Bacteria (Auto) 4+ H (None Seen) Hyaline Casts Present A (None Presnt) /lpf 06/16/24 Range/Units 14:26 WBC (4.8-10.8) K/ul RBC (4.20-5.40) M/uL Hgb (12.0-16.0) g/dl Hct (37.0-47.0) % MCV (80.0-100.0) fL MCH (25.0-34.0) pg MCHC (32.0-36.0) g/dL RDW Std Deviation (36.4-46.3) fL RDW Coeff of Mary (11.5-14.5) % Plt Count (130-400) K/uL MPV (9.4-12.4) fL Immature Gran % (Auto) % Neut % (Auto) % Lymph % (Auto) % Treasure % (Auto) % Eos % (Auto) % Baso % (Auto) % Neut # (Auto) (1.40-6.50) K/uL Lymph # (Auto) (1.20-3.40) K/uL Treasure # (Auto) (0.11-0.59) K/uL Eos # (Auto) (0.00-0.50) K/uL Baso # (Auto) (0.00-0.20) K/uL Immature Gran # (Auto) (0.01-0.20) K/uL PT (9.0-12.0) Seconds INR (0.9-1.1) Sodium (136-145) mmol/L Potassium (3.5-5.1) mmol/L Chloride (98-107) mmol/L Carbon Dioxide (21-32) mmol/L Anion Gap (3-11) BUN (6-23) mg/dl Creatinine (0.6-1.2) mg/dl Est Cr Clr Drug Dosing ml/min eGFR BUN/Creatinine Ratio (10-20) Glucose (70-99(Fasting)) mg/dl Lactate 1.4 (0.4-2.0) mmol/L Calcium (8.6-10.3) mg/dl Phosphorus (2.5-4.9) mg/dl Magnesium (1.7-2.4) mg/dl Total Bilirubin (0.2-1.0) mg/dl Direct Bilirubin (0-0.2) mg/dl AST (13-39) U/L ALT (7-52) U/L Alkaline Phosphatase (34-104) U/L Troponin I High Sens (0-14) pg/ml Total Protein (6.0-8.3) gm/dl Albumin (3.4-5.0) gm/dl Procalcitonin (0-0.5) ng/ml TSH (0.300-4.500) uIu/ml Urine Color Urine Appearance (Clear) Urine pH (4.5-7.5) Ur Specific [place] (1.000-1.030) Urine Protein (Negative) Urine Glucose (UA) (Negative) Urine Ketones (Negative) Urine Blood (Negative) Urine Nitrite (Negative) Urine Bilirubin (Negative) Urine Urobilinogen (Negative) Ur Leukocyte Esterase (Negative) Urine WBC (Auto) (0-5) /hpf Urine RBC (Auto) (0-2) /hpf U Hyaline Cast (Auto) (0-2) /lpf U Epithel Cells (Auto) (0-2) /hpf Urine Bacteria (Auto) (None Seen) Hyaline Casts (None Presnt) /lpf Administered Medications Atorvastatin Calcium (Atorvastatin 40 Mg Tab) 40 mg PO HS NILDA Stop: 07/16/24 22:34 Last Admin: 12/17/24 23:26 Dose: 40 mg Documented By: [facility] Digoxin (Digoxin 0.125 Mg Tab) 0.125 mg PO HS [facility] Stop: 07/16/24 22:34 Last Admin: 06/16/24 23:26 Dose: 0.125 mg Documented By: [facility] Meropenem 500 mg/ Syringe 10 mls @ 2 mls/min IV Q6H [facility]; Protocol Stop: 07/28/24 22:59 Last Admin: 06/16/24 23:27 Dose: 2 mls/min Documented By: [facility] Pantoprazole Sodium (Pantoprazole 40 Mg Tab) 40 mg PO BID [facility] Stop: 07/16/24 22:34 Last Admin: 06/16/24 23:26 Dose: 40 mg Documented By: [facility] Tamsulosin HCl (Tamsulosin Hcl 0.4 Mg Cap) 0.4 mg PO [facility] Stop: 07/16/24 22:34 Last Admin: 06/16/24 23:25 Dose: 0.4 mg Documented By: [facility] Discontinued Medications Sodium Chloride (Nss) 1,000 mls @ 999 mls/hr IV .Q1H1M ONE Stop: 06/16/24 13:32 Last Infusion: 06/16/24 14:01 Dose: Infused Documented By: Admin: 06/16/24 12:58 Dose: 999 mls/hr Documented By: [facility] Meropenem 500 mg/ Syringe 10 mls @ 2 mls/min IV NOW STA; Protocol Stop: 06/16/24 12:58 Last Admin: 06/16/24 13:19 Dose: 2 mls/min Documented By: [facility] Vancomycin HCl 1,500 mg/ (Sodium Chloride) 530 mls @ 200 mls/hr IV NOW ONE Stop: 06/16/24 15:32 Last Infusion: 06/16/24 16:55 Dose: Infused Documented By: Admin: 06/16/24 13:26 Dose: 200 mls/hr Documented By: [facility] Magnesium Sulfate/Dextrose (Magnesium Sulfate / D5w) 1 gm in 100 mls @ 50 mls/hr IV ONE ONE Stop: 06/16/24 18:59 Last Infusion: 06/16/24 18:58 Dose: Infused Documented By: Admin: 06/16/24 16:55 Dose: 50 mls/hr Documented By: [facility] Ioversol (Optiray 320 100ml) 91 ml IV ONCE ONE Stop: 06/16/24 15:07 Last Admin: 06/16/24 15:06 Dose: 91 ml Documented By: [employer] Imaging Data Radiologist's Impression: Abdomen/Pelvis CT 06/16/24 13:55 CT abd pelvis IV con only CLINICAL HISTORY: confusion, ?sepsis TECHNIQUE: Helical axial images of the abdomen and pelvis were obtained and displayed. Automated dose lowering techniques and/or adjustment according to patient size were utilized for this exam. This exam was performed with intravenous contrast. COMPARISON: Comparison is made to CT abdomen pelvis 09/01/2023 FINDINGS: Lower chest: Bibasilar atelectasis versus scarring is seen. Liver: Unremarkable. No focal lesions are seen. Gallbladder and biliary tree: Cholelithiasis is seen without evidence of cholecystitis. No intra- or extrahepatic biliary ductal dilation. Pancreas: Unremarkable, no focal lesions. Spleen: Unremarkable. Adrenals: Unremarkable. Kidneys and ureters: Bilateral renal cysts are seen. Bladder: Unremarkable. Reproductive organs: Patient is status post hysterectomy. Bowel: The appendix is normal. A small hiatal hernia is seen. Lymph nodes Retroperitoneal: Subcentimeter lymph nodes are noted. A few subcentimeter retrocrural nodes are also seen at the level of the gastroesophageal junction. Pelvic: Unremarkable. Mesenteric: Unremarkable. Peritoneum: Normal. Vessels: Atherosclerotic calcifications are seen. Abdominal wall: Unremarkable. Bones: Degenerative changes in the visualized spine. IMPRESSION: No acute abnormalities are seen. In particular no evidence of pyelonephritis as seen on prior exam. ACT 112: Negative or not required by law. Electronically signed by: Jomar Palomo M.D. 06/16/2024 3:48 PM Hand CT 06/16/24 13:55 CT hand LT w con HISTORY: 73 years-old Female s/p amputation, eval for infection acute pain of the left upper extremity status post partial amputation. COMPARISON: None TECHNIQUE: Multiple axial CT images of the left hand were obtained with IV contrast. A dose lowering technique was used consistent with the principals of JANE. FINDINGS: Fusion hardware of the distal radius with healed chronic fracture deformity. The study is motion degraded. Streak artifact from the skin leighton limits the study. There is bony irregularity/partial amputation of the distal carpal row as well as amputation of the second through fifth digits. Amputation of the first digit at the level of the metacarpal phalangeal joint. There is subcutaneous and deep tissue edema without drainable fluid collection. No unexpected opaque foreign bodies. IMPRESSION: 1. Status post amputation as above. 2. Soft tissue edema with overlying skin leighton. 3. No discrete fluid collections. 4. Chronic distal radial fracture with ORIF changes. ACT 112: Negative or not required by law. The above report was generated using voice recognition software. It may contain grammatical, syntax or spelling errors. Electronically signed by: Morteza Boogie M.D. 06/16/2024 3:[address] 06/16/24 13:55 CT OF THE HEAD WITHOUT CONTRAST CLINICAL HISTORY: confusion, ?sepsis COMPARISON STUDY: MRI of the brain July 28, 2023. Head CT August 24, 2023. TECHNIQUE: Helical axial images of the head were obtained without IV contrast. Automated exposure control was utilized for the study. A dose lowering technique was utilized adhering to the principles of ALARA. FINDINGS: No acute intracranial hemorrhage, midline shift or mass effect is present. The ventricular system is stable. White matter hypodensities are unchanged and favor small vessel disease. The basal cisterns are patent. No extra-axial collections are present. There are no findings to suggest acute dural sinus thrombosis or acute territorial infarct. No significant calvarial abnormalities are present. Visualized portions of the sinuses and mastoid air cells are clear. IMPRESSION: No acute intracranial findings. No change in appearance of the brain. ACT 112: Negative or not required by law. Electronically signed by: Yahir Odell M.D. 06/16/2024 3:34 PM Discharge Plan Visit Data Chief Complaint: Infection ED Provider: Agustin Smith Discharge Problem: Acute UTI, History of partial amputation of left hand, Elevated lactic acid level, Confusion Patient Disposition: Admitted As Inpatient Discharge Instructions Interventions: ED Discharge Assessment Last Done: 06/16/24 22:35
[2024-06-16] MEDS ORDERED: VANCOMYCIN CONSULT ACTIVE PRN (12:54)
[2024-06-16] MEDS: SODIUM CHLORIDE 0.9% 1,000 ML IV ONE (12:58)
--- NOTE | 2024-06-16 12:58 | XRay Report ---
XR chest 1V portable HISTORY: 73 years-old Female Sepsis COMPARISON: 12/27/2023 TECHNIQUE: AP view of the chest FINDINGS: Cardiac silhouette is normal. Trace pleural effusions with mild subsegmental left basilar atelectasis . Spondylitic spurring of the spine. Bones appear grossly intact. IMPRESSION: Trace pleural effusions with mild left basilar atelectasis. ACT 112: Negative or not required by law. The above report was generated using voice recognition software. It may contain grammatical, syntax o r spelling errors. Electronically signed by: Morteza Boogie M.D. 06/16/2024 12:57 PM
[2024-06-16 13:12] LABS: Basophils # (auto) 0.02 K/uL (0.00-0.20); Basophils % (auto) 0.3 %; Eosinophils % (auto) 1.4 %; Hemoglobin 9.1 g/dl (12.0-16.0); Immature Granulocytes # (auto) 0.03 K/uL (0.01-0.20); Immature Granulocytes % (auto) 0.4 %; Lymphocytes # (auto) 1.43 K/uL (1.20-3.40); Lymphocytes % (auto) 20.2 %; Mean Corpuscular Hemoglobin 24.3 pg (25.0-34.0); Mean Corpuscular Hgb Conc 31.4 g/dL (32.0-36.0); Mean Corpuscular Volume 77.3 fL (80.0-100.0); Mean Platelet Volume 9.2 fL (9.4-12.4); Monocytes # (auto) 0.54 K/uL (0.11-0.59); Monocytes % (auto) 7.6 %; Neutrophils # (auto) 4.96 K/uL (1.40-6.50); Neutrophils % (auto) 70.1 %; Platelet Count 327 K/uL (130-400); RDW Coefficient of Variation 15.7 % (11.5-14.5); RDW Standard Deviation 43.8 fL (36.4-46.3); Red Blood Count 3.75 M/uL (4.20-5.40); White Blood Count 7.08 K/ul (4.8-10.8)
[2024-06-16] MEDS: MEROPENEM 500 MG in SYRINGE 0 ML IV STA (13:19)
[2024-06-16] MEDS: VANCOMYCIN HCL 1,500 MG in SODIUM CHLORIDE 0.9% 500 ML IV ONE (13:26)
[2024-06-16 13:31] LABS: Prothrombin Time 10.7 Seconds (9.0-12.0)
[2024-06-16 13:32] LABS: Albumin Level 3.5 gm/dl (3.4-5.0); Bilirubin,Total 0.3 mg/dl (0.2-1.0); Calcium 9.5 mg/dl (8.6-10.3); Magnesium 1.6 mg/dl (1.7-2.4); Phosphorus 3.1 mg/dl (2.5-4.9); Potassium 4.1 mmol/L (3.5-5.1); Total Protein 6.5 gm/dl (6.0-8.3)
[2024-06-16 13:37] LABS: Troponin I High Sensitivity 4.9 pg/ml (0-14)
[2024-06-16 13:46] LABS: Thyroid Stimulating Hormone 0.416 uIu/ml (0.300-4.500)
[2024-06-16 14:42] LABS: Appearance Urine Cloudy (Clear); Bacteria Urine Automated 4+ (None Seen); Bilirubin Urine Negative (Negative); Blood Urine Negative (Negative); Color Urine Yellow; Epithelial Cell Urine Auto 0-2 /hpf (0-2); Glucose Urine UA Negative (Negative); Hyaline Casts Urine Present /lpf (None Presnt); Ketones Urine Negative (Negative); Leukocyte Esterase Urine 3+ (Negative); Nitrite Urine Positive (Negative); Protein Urine Trace (Negative); RBC Urine Automated 0-2 /hpf (0-2); Specific Gravity Urine 1.017 (1.000-1.030); Urobilinogen Urine Negative (Negative); WBC Urine Automated >50 /hpf (0-5); pH Urine 8.5 (4.5-7.5)
[2024-06-16] MEDS: OPTIRAY 320 100ml IV ONE (15:06)
--- NOTE | 2024-06-16 15:36 | CT Scan Report ---
CT OF THE HEAD WITHOUT CONTRAST CLINICAL HISTORY: confusion, ?sepsis COMPARISON STUDY: MRI of the brain July 28, 2023. Head CT August 24, 2023. TECHNIQUE: Helical axial images of the head were obtained without IV contrast. Automated exposure con trol was utilized for the study. A dose lowering technique was utilized adhering to the principles o f ALARA. FINDINGS: No acute intracranial hemorrhage, midline shift or mass effect is present. The ventricular system is stable. White matter hypodensities are unchanged and favor small vessel disease. The basal cisterns are patent. No extra-axial collections are present. There are no findings to suggest acute d ural sinus thrombosis or acute territorial infarct. No significant calvarial abnormalities are presen t. Visualized portions of the sinuses and mastoid air cells are clear. IMPRESSION: No acute intracranial findings. No change in appearance of the brain. ACT 112: Negative or not required by law. Electronically signed by: Yahir Odell M.D. 06/16/2024 3:34 PM
--- NOTE | 2024-06-16 15:37 | CT Scan Report ---
CT hand LT w con HISTORY: 73 years-old Female s/p amputation, eval for infection acute pain of the left upper extremi ty status post partial amputation. COMPARISON: None TECHNIQUE: Multiple axial CT images of the left hand were obtained with IV contrast. A dose lowering technique was used consistent with the principals of JANE. FINDINGS: Fusion hardware of the distal radius with healed chronic fracture deformity. The study is motion degr aded. Streak artifact from the skin leighton limits the study. There is bony irregularity/partial ampu tation of the distal carpal row as well as amputation of the second through fifth digits. Amputation of the first digit at the level of the metacarpal phalangeal joint. There is subcutaneous and deep ti ssue edema without drainable fluid collection. No unexpected opaque foreign bodies. IMPRESSION: 1. Status post amputation as above. 2. Soft tissue edema with overlying skin leighton. 3. No discrete fluid collections. 4. Chronic distal radial fracture with ORIF changes. ACT 112: Negative or not required by law. The above report was generated using voice recognition software. It may contain grammatical, syntax o r spelling errors. Electronically signed by: Morteza Boogie M.D. 06/16/2024 3:35 PM
--- NOTE | 2024-06-16 15:50 | CT Scan Report ---
CT abd pelvis IV con only CLINICAL HISTORY: confusion, ?sepsis TECHNIQUE: Helical axial images of the abdomen and pelvis were obtained and displayed. Automated dose lowering techniques and/or adjustment according to patient size were utilized for this exam. This e xam was performed with intravenous contrast. COMPARISON: Comparison is made to CT abdomen pelvis 09/01/2023 FINDINGS: Lower chest: Bibasilar atelectasis versus scarring is seen. Liver: Unremarkable. No focal lesions are seen. Gallbladder and biliary tree: Cholelithiasis is seen without evidence of cholecystitis. No intra- or extrahepatic biliary ductal dilation. Pancreas: Unremarkable, no focal lesions. Spleen: Unremarkable. Adrenals: Unremarkable. Kidneys and ureters: Bilateral renal cysts are seen. Bladder: Unremarkable. Reproductive organs: Patient is status post hysterectomy. Bowel: The appendix is normal. A small hiatal hernia is seen. Lymph nodes Retroperitoneal: Subcentimeter lymph nodes are noted. A few subcentimeter retrocrural nodes are also seen at the level of the gastroesophageal junction. Pelvic: Unremarkable. Mesenteric: Unremarkable. Peritoneum: Normal. Vessels: Atherosclerotic calcifications are seen. Abdominal wall: Unremarkable. Bones: Degenerative changes in the visualized spine. IMPRESSION: No acute abnormalities are seen. In particular no evidence of pyelonephritis as seen on prior exam. ACT 112: Negative or not required by law. Electronically signed by: Jomar Palomo M.D. 06/16/2024 3:48 PM
--- NOTE | 2024-06-16 16:46 | History & Physical Report ---
Date of Service June 16, 2024 Assessment & Plan (1) Amputation stump infection: Plan: possible wound infection with drainage and small opening up of wound ulnar side of incision Growing ESBL E. coli, Providencia, and PCN-resistant MSSA on cultures with positive bony margins for OM Check ESR, CRP in AM Start meropenem and Vanco based on sensitivity date for these organisms Consult ID Discussed case with and shared pictures with pt's hand surgeon, Dr. Lay who is in agreement with antibiotic treatment (2) Urinary tract infection, site not specified: Plan: UA abnormal, very foul smelling urine on admission, with a h/o chronic incontinence continue meropenem, Vanco follow urine and blood cxs continue Flomax for h/u urine retention (3) Acute metabolic encephalopathy: Plan: Secondary to UTI and psosibly from wound infection Mild treat underlying infection (4) Anemia: Plan: hgb low at 9 but improved from previous after GI bleeds Check Fe studies, CBC in AM (5) Type 2 diabetes mellitus: Plan: on metformin only at home check A1C in AM hold home metformin ADA diet no accuchecks as has no hands to test --> follow venous glucose (6) HTN (hypertension): Plan: BPs normal continue diltiazem (7) CVA (cerebral vascular accident): Plan: noted on previous head imaging continue statin, not on antiplatelet or anticoagulant due to h/o severe GI bleeding (8) Lone atrial fibrillation: Plan: occurred in setting of critical illness in early 2023 Here in NSR Continue diltiazem and digoxin for rate control No longer on DOAC given h/o GI bleeding Monitor on tele (9) Dyslipidemia: Plan: continue statin (10) Anxiety: Plan: continue home venlafaxine Plan DVT proph-Lovenox Dispo-admit to med/surg unit DNR/DNI as per my d/w patient with daughter and sister present History of Present Illness Chief Complaint: confusion Primary Care Provider: [facility] This pt is a 73 yo female with a complex history of sepsis resulting in necrosis of all four extremities with subsequent amputations, lone atrial fibrillation, DM II, HTN, CVA, depression, dyslipidemia, history of hepatitis C s/p treatment, B12 deficiency, osteoporosis, kidney stones and GI bleed who presents from long term with increased confusion only x 2 days. She had her left hand amputated on 06/09/[address] Lay and was taking some oxycodone prn pain for a few days as per her sister. This did seem to make the patient more lethargic than usual but then was more recently asking why she changed rooms (when she did not) at the [facility]. Pt denies pain, no fevers/chills, no headache or nausea, no CP or SOB, no diarrhea or constipation, no abd or flank pain, no rashes. No urinary symptoms other than urinary incontinence since her prolonged ICU stay earlier this year. Her left arm stump is draining a bit of fluid. Of note, her cultures of the necrotic hand were reviewed and did recently grow ESBL E. coli, Providencia ruttgeri, and PCN-resistant MSSA. The pathology from the hand amputation also showed surgical margin of resection at metacarpal involved by acute osteomyelitis. She was also found to have an abnormal UA consistent with UTI. There was no evidence of kidney stones or sepsis on admission. Allergies Allergy/AdvReac Type Severity Reaction Status Date / Time No Known Allergies Allergy Verified 02/05/24 10:07 Home Medications Medication Instructions Recorded Confirmed Type acetaminophen 325 mg tablet 650 mg (2 x 325 mg) PO Q6H PRN 09/10/23 06/16/24 Rx (Tylenol) FEVER >100/PAIN #30 tabs atorvastatin 40 mg tablet 40 mg PO HS #30 tabs 09/10/23 06/16/24 Rx cyanocobalamin (vitamin B-12) 1,000 mcg PO QAM #30 tabs 09/10/23 06/16/24 Rx 1,000 mcg tablet digoxin 125 mcg (0.125 mg) tablet 0.125 mg PO HS #30 tabs 09/10/23 06/16/24 Rx (Digitek) diltiazem HCl 180 mg 180 mg PO QAM #30 caps 09/10/23 06/16/24 Rx capsule,extended release 24 hr magnesium oxide 400 mg (241.3 mg 400 mg PO QAM #60 tabs 09/10/23 06/16/24 Rx magnesium) tablet metformin 1,000 mg tablet 1,000 mg PO BIDWMEAL #60 tabs 09/10/23 06/16/24 Rx tamsulosin 0.4 mg capsule 0.4 mg PO HS #30 caps 09/10/23 06/16/24 Rx alendronate 70 mg tablet (Fosamax) 70 mg PO WK 10/14/23 06/16/24 History bisacodyl 10 mg rectal suppository 10 mg LA UD PRN Constipation 10/14/23 06/16/24 History (Dulcolax (bisacodyl)) calcium 500 mg (as 1 tab PO QAM 10/14/23 06/16/24 History carbonate)-vitamin D3 5 mcg (200 unit) tablet (Calcium 500 + D) magnesium hydroxide 400 mg/5 mL 2,400 mg PO UD PRN Constipation 10/14/23 06/16/24 History oral suspension pantoprazole 40 mg tablet,delayed 40 mg PO BID 10/14/23 06/16/24 History release sodium phosphates 19 gram-7 118 ml LA UD PRN Constipation 10/14/23 06/16/24 History gram/118 mL enema (Fleet Enema) aluminum-mag hydroxide-simethicone 10 ml PO Q4H PRN Stomach Upset 06/16/24 06/16/24 History 400 mg-400 mg-40 mg/5 mL oral susp (Mylanta Maximum Strength) oxycodone 5 mg tablet 5 mg PO Q4H PRN Pain (Scale Score 06/16/24 06/16/24 History 5 - 8) oxycodone 5 mg tablet 10 mg PO Q4H PRN Pain (Scale Score 06/16/24 06/16/24 History 9 -10) venlafaxine 75 mg capsule,extended 75 mg PO QAM 06/16/24 06/16/24 History release 24 hr Past Med/Surg History Problem List Acute metabolic encephalopathy Lone atrial fibrillation Osteomyelitis of foot, right, acute Severe sepsis Amputation stump infection Elevated lactic acid level (Acute) Leukocytosis (Acute) Wound, open, foot with complication (Acute) Sepsis (Acute) Duodenal arteriovenous malformation Acute blood loss anemia GI bleed (Acute) Melanotic stools Gangrene of hand Complicated urinary tract infection (Acute) Dry gangrene (Acute) Bacteremia due to Gram-positive bacteria Ureteral stent present (Acute) Gangrene Thrombocytopenia Thrombocytopathia Anemia Hypokalemia (Acute) Hypomagnesemia (Acute) Nephrolithiasis Dyslipidemia Type 2 diabetes mellitus NIDDM Ureterolithiasis (Acute) hx Bacteremia (Acute) hx Atrial fibrillation with rapid ventricular response currently on chronic AC w/coumadin HTN (hypertension) S/P wrist surgery left 5 yrs ago Medical History Atrial fibrillation Carotid artery stenosis Moderate LEFT ICA stenosis, possible high risk, ulcerative plaque in this location. There is streak artifact from the calcium and patient motion limiting evaluation. History of upper gastrointestinal bleeding 07/2023 Non-occlusive thrombus right internal jugular vein Cognitive communication deficit in setting of encephalopathy Dysphagia, oral phase denies choking, denies specialized diet at this time Muscle weakness (generalized) Difficulty in walking, not elsewhere classified Urinary tract infection, site not specified Klebsiella pneumoniae [k. 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 ventilation. sepsis due to complicated UTI and bacteremia w/klebsiella pneumoniae, tx primarily w/IV cefepime. due to her severe sepsis and need for IV pressor, developed acrocyanosis/gangrene to all 4 extremities as well as distal nose. 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/gangrene" Complicated urinary tract infection Hydronephrosis due to obstruction of ureter hx Closed fracture of left distal radius and ulna hx History of COVID-19 07/2023, [facility], hospitalized 07/26/23-08/21/23 History of colon polyps Anxiety Surgical History S/P cystoscopy with ureteral stent placement 09/05/23>w/ureteroscopy and stone extraction, stent exchange; stent removed 09/09/23 History of colonoscopy History of hysterectomy History of tonsillectomy Family History Grandmother Family history of diabetes mellitus Family history of colon cancer Grandfather Family history of colon cancer Aunt Family history of colon cancer Uncle Family history of colon cancer Social History Smoking Status: Former smoker Tobacco Type: Cigarettes Second Hand Exposure: No; Do You Dip or Chew Tobacco: No; Hx Alcohol Use: No Hx Substance Use: No Preferred Language: [place]an Communication Ability: Effective Diagrammer And Seamer Required: No Beliefs That Will Affect Care: None Current Living Situation: Personal Care Facility Current Living Situation Comment: [facility] Feels Safe at Home: Yes Assistive Devices: Wheelchair Review of Systems Review of Systems: All systems reviewed & are unremarkable except as noted in HPI & below Physical Exam Constitutional: WD/WN, vitals as above Eyes: + anicteric sclerae Respiratory: normal respiratory effort, lungs clear to auscultation Cardiovascular: RRR, no murmur, no edema Gastrointestinal (Abdomen): normal bowel sounds, soft, nontender, no hepatosplenomegaly Musculoskeletal: Extremities: + extremities abnormal to inspection (bilat hand amputations,bilat transmetatarsal amputations) Skin: + wound (left arm stump wound w/ leighton ,copious serosang drainage ulnar side) no erythema of left forearm Psychiatric: A+Ox3, euthymic affect Results & Data Results & Data Vital Signs (Past 12 Hours) Vital Signs Temp Pulse Pulse Resp BP BP Pulse Ox 06/16/24 15:30 74 15 129/59 L 96 06/16/24 15:15 72 16 131/60 96 06/16/24 14:45 71 15 131/62 96 06/16/24 14:30 68 20 132/73 96 06/16/24 14:15 72 18 131/65 95 06/16/24 14:00 20 L 20 130/62 97 06/16/24 13:45 69 17 128/60 98 06/16/24 13:30 71 16 127/61 97 06/16/24 13:15 72 16 130/65 98 06/16/24 13:00 75 20 138/66 97 06/16/24 12:30 78 19 133/74 96 06/16/24 12:04 80 06/16/24 11:46 36.9 C 80 15 118/69 99 O2 Del Method 06/16/24 15:30 Room Air 06/16/24 15:15 Room Air 06/16/24 14:45 Room Air 06/16/24 14:30 Room Air 06/16/24 14:15 Room Air 06/16/24 14:00 Room Air 06/16/24 13:45 Room Air 06/16/24 13:30 Room Air 06/16/24 13:15 Room Air 06/16/24 13:00 Room Air 06/16/24 12:30 Room Air 06/16/24 12:04 06/16/24 11:46 Room Air Laboratory Results CBC, CMP, coags, magnesium, troponin, lactate, procal, TSH, UA all reviewed Diagnostic Findings CT head, CT left arm, CT A/P, CXR all reviewed Code Status & VTE Plan Code Status DNR/DNI VTE Prophylaxis Plan VTE Prophylaxis will be ordered: Yes PG Care Time/CCT Total # of Minutes Spent Total Time Spent with Patient: Total time spent is greater than 50% in coordination of care (as documented) at patient's floor/unit and/or counseling patient: Coding Level of Care Code 37732 INT INP/OBS CARE 375MIN Diagnoses Amputation stump infection T87.40 Urinary tract infection, site not specified N39.0 Acute metabolic encephalopathy G93.41 Anemia, unspecified type D64.9 Anemia type: unspecified type Type 2 diabetes mellitus with other specified complication, without long-term current use of insulin E11.69 Diabetes mellitus emt intermediate insulin use: without senior care use Diabetes mellitus complication status: with other specified complication Primary hypertension I10 Hypertension type: primary hypertension CVA (cerebral vascular accident) I63.9 Lone atrial fibrillation I48.91 Dyslipidemia E78.5 Anxiety F41.9 (4) Anemia Anemia type: unspecified type Qualified Code(s): D64.9 - Anemia, unspecified (5) Type 2 diabetes mellitus Diabetes mellitus senior care insulin use: without emt intermediate use Diabetes mellitus complication status: with other specified complication Qualified Code(s): E11.69 - Type 2 diabetes mellitus with other specified complication (6) HTN (hypertension) Hypertension type: primary hypertension Qualified Code(s): I10 - Essential (primary) hypertension
[2024-06-16] MEDS: MAGNESIUM SULFATE / D5W 1 GM/100 ML BAG IV ONE (16:55)
--- OUTSIDE RECORDS SUMMARY | 2024-06-16 22:07 | External Medical Summary | Summary of Care ---
Author Name Unknown Organization [facility] Address [address] [place] [address] Phone [phone] Care Team Providers Care Aluminum Boat Inspector Name Role Phone Sulema Coughlin MD Primary Care Provide r Encounter Details Date Type Department Care Team (Late st Contact Info) Description 06/15/2024 Orders Only Outcomes Research Department [address] [place] [address] Pat Cano [facility] Research Other*[id number] Allergies No known active allergiesdocumented as of this encounter (statuses as of 06/15/2024) Medications Calcium Carb-Cholecalcife rol 1000-800 MG-UNIT Oral Tablet One daily Active Misc Natural Products (LUTEIN VISION BLEND) CAPS One daily Active Cyanocobalamin 1000 MCG Oral Tablet (Cyanocobalamin) Take 1 Tablet by mouth in the morning. 2 Active Venlafaxine HCl ER 150 MG Oral Capsule Extended Release 24 Hour (Effexor XR)Indications:An xiety TAKE 1 CAPSULE BY MOUTH EVERY DAY 90 Capsule 3 3 Active Ibandronate Sodium 150 MG Oral Tablet (Boniva)Indicatio ns:Osteoporosis, unspecified osteoporosis type, unspecified pathological fracture presence TAKE BY MOUTH 1 TABLET EVERY 30 DAYS . 3 Tablet 2 3 Active Atorvastatin Calcium 40 MG Oral Tablet (Lipitor)Indicati ons:Hyperlipidemi a with target LDL less than 100 Take 1 Tablet by mouth in the morning. 90 Tablet 3 3 Active Lisinopril 10 MG Oral Tablet (Prinivil) Take 1 Tablet by mouth in the morning. 90 Tablet 3 3 Active metFORMIN HCl 1000 MG Oral Tablet (Glucophage)Indic ations:Type 2 diabetes mellitus with hemoglobin A1c goal of less than 7.0% (HCC) TAKE 1 TABLET BY MOUTH TWICE A DAY WITH MORNING AND EVENING MEAL 180 Tablet 3 3 Active documented as of this encounter (statuses as of 06/15/2024) Active Problems Problem Noted Date Diagnosed Date B12 deficiency 03/30/2022 No history of diabetic retinopathy in past year 03/30/2022 Overview (03/30/2022): 03/2022 Age-related osteoporosis wit hout current pathological fracture 03/30/2022 Overweight (BMI 25.0-29.9) 06/21/2021 Dyslipidemia, goal LDL below 100 06/21/2021 Type 2 diabetes mellitus wit h hemoglobin A1c goal of less than 7.5% 04/26/2021 Hx of nonmelanoma skin cancer 03/15/2020 Overview (03/15/2020): basal cell carcinoma (R pretibial region 03/2020) Adrenal nodule 08/04/2019 History of colon polyps 12/15/2018 History of hepatitis C 05/27/2017 Rosacea 01/20/2016 HTN, goal below 130/80 07/14/2015 Anxiety 01/11/2015 Allergic rhinitis 05/12/2013 History of tobacco use 04/24/2004 documented as of this encounter (statuses as of 06/15/2024) Resolved Problems Problem Noted Date Diagnosed Date Resolved Date Type 2 diabetes mellitus wit h diabetic polyneuropathy 10/01/2022 10/01/2022 Pelvic mass 02/12/2019 02/18/2020 Serous cystadenoma 02/12/2019 0 Prediabetes 07/14/2018 05/09/2021 Overview: Per Prediabetes protocol #1 Chronic hepatitis C without hepatic coma 05/27/2017 05/27/2017 Tobacco use disorder 01/20/2016 018 Acute sinusitis 05/17/2010 01/20/2016 Benign neoplasm of colon 07/25/2007 Overview (07/25/2007): 3 mm polyp in descending colon, 5 mm sigmoid polyp Benign neoplasm of colon 07/25/2007 Overview (08/04/2007): 3 mm polyp in descending colon, 5 mm sigmoid polyp hyperplastic repeat colonoscopy in 3 yrs Postmenopausal status, age-related 05/14/2006 01/11/2015 Other osteoporosis without c urrent pathological fracture 04/24/2004 01/20/2016 Overview (04/23/2017): ICD-10 update of inactive term Other osteoporosis without c urrent pathological fracture 10/05/2003 07/31/2006 Overview (04/23/2017): ICD-10 update of inactive term Impaired fasting glucose Radius and ulna distal fracture 01/20/2016 documented as of this encounter (statuses as of 06/15/2024) Immunizations Name Administration Dates Next Due COVID-19 mRNA, LNP-s, No Pre serve, 2-Dose Series (Moderna) 09/14/2020,08/19/2020 COVID-19, MRNA-LNP, PF, 30 M CG/0.3 mL, 12 YRS AND ABOVE, IM (PFIZER-Comirnaty) 04/02/2023 COVID-19, mRNA, LNP-s, PF, B ooster, 100mcg/0.5mg (Moderna) 10/24/2021,05/09/2021 Covid-19, Mrna, Lnp-s, Pf, B ivalent, 30 Mcg, IM, 12 yrs and above (Pfizer) 04/03/2022 HEP A - Hepatitis A (Adult > 18 yrs) 07/08/2018, 05/27/2017 Hepatitis B, 20+ yrs 06/19/2018,07/02/2017,05/31 Pneumococcal Conjugate Vacc, 13 Valent (Prevnar) 01/20/2016 Pneumococcal Polysaccharide PPV23 (Pneumovax) 05/27/2017 Seasonal Influenza Vac., MDV , IM, 0.5 mL (Fluzone) 04/05/2014,03/31/2013,03/12/2012 Seasonal Influenza, PF, 6 M & above, IM , (FluLaval or Fluzone) 03/11/2019,06/19/2018,05/06/2017 Seasonal Influenza, Quadriva lent Hd (Fluzone Hd) 04/02/2023,03/30/2022,05/09/2021 Seasonal Influenza, Quadriva lent Hd, 65+ Yrs 04/20/2020 Seasonal Influenza, Quadriva lent, No Preserve, IM 07/24/2016,05/17/2015 TDAP (age 10 and older)(Boostrix) 05/12/2013 Varicella Zoster Vaccine (Adult) 06/29/2015 documented as of this encounter Social History Tobacco Use Types Packs/Day Years Used Date Smoking Tobacco: Former Cigarettes 0.3 30 0 08/01/1991 - 08/01/2021 Smokeless Tobacco: Never Comments:<1/4 ppd Alcohol [...] in the Last Year Never true 03/11/2019 Comments No Sex and Gender Information Value Date Recorded Sex Assigned at Female 10/06/2020 12:43 PM EDT Legal Sex Female 5:27 AM EST Gender Identity Female 10/08/2018 10:32 AM EDT Sexual Orientation Straight 10/06/2020 12 :43 PM EDT 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 Answer Date of Assessment Author No 02/10/2019 3:45 PM EDT Rhea Bae RN * Are you blind or do you have serious difficulty seeing, even when wearing glasses? Answer Date of Assessment Author No 02/10/2019 3:45 PM EDT Rhea Bae RN * Do you have serious difficulty walking or climbing stairs? (5 years old or older) Answer Date of Assessment Author No 02/10/2019 3:45 PM EDT Rhea Bae RN * Do you have difficulty dressing or bathing? (5 years old or older) Answer Date of Assessment Author No 02/10/2019 3:45 PM EDT Rhea Bae RN * Because of a physical, mental, or emotional condition, do you have difficulty doing errands alone such as visiting a doctors office or shopping? (15 years old or older) Answer Date of Assessment Author No 02/10/2019 3:45 PM EDT Rhea Bae RN documented as of this encounter Mental Status * Because of a physical, mental, or emotional condition, do you have serious difficulty concentrating, remembering, or making decisions? (5 years old or older) Answer Entry Date Author No 02/10/2019 3:45 PM EDT Rhea Bae RN documented in this encounter Plan of Treatment Scheduled Orders Name Type Priority Associated Diagnoses Orde r Schedule MYCODE SUBSEQUENT ADULT Lab Routine MyCode Research Other*[id number] Every 6 Months for 2 Occurrences starting 06/15/2024 until 07/05/2025 Scheduled Procedures Name Priority Associated Diagnoses Date/Ti me COLONOSCOPY FLEXIBLE PROXIMAL DIAGNOSTIC Recall History of colon polyps Health Maintenance Due Date Last Done Comments Cologuard 1995 Sigmoidoscopy 1995 Fecal Occult Blood Test 08/07/2000 08/07/1999 Zoster Vaccines (2 of 3) 08/24/2015 06/29/2015 Adult Wellness Visit 10/19/2022 10/19/2021, 10/07/19 21 Depression Screening 10/19/2022 10/19/2021 Colonoscopy 03/02/2023 03/02/2020, 08/2019, 10/12/2014, Additional history exists Colorectal Cancer Screening 03/02/2023 DTap/Tdap Vaccines (2 - Td or Tdap) 05/12/2023 05/12/2013 Mammogram 09/11/2023 09/10/2022, 08/29, 09/07/2021, Additional history exists HbA1c 10/02/2023 04/02/2023, 040 08/2022, 03/26/2022, Additional history exists DXA Scan 02/07/2024 02/06/2022, 08/0 03/2022, 02/17/2018, Additional history exists COVID-19 Vaccine ( season) 2024 04/02/2023, 04/03/2022, 10/24/2021, Additional history exists Diabetic Eye Exam 03/01/2024 03/01/2023, , 02/26/2022, Additional history exists Influenza Vaccine (FLU shot) (#1) 2024 04/02/2023, 03/30/2022, 05/09/2021, Additional history exists Albumin/Creatinine Ratio 04/02/2024 023, 03/26/2022, 05/09/2021, Additional history exists Diabetic Foot Exam 04/02/2024 04/02/2023, 0 03/30/2022, 06/21/2021 GFR 04/02/2024 04/02/2023, 04/0 08/2022, 03/26/2022, Additional history exists Lipid Panel 04/02/2028 04/02/2023, 03/02, 04/26/2021, Additional history exists VITAMIN D LEVEL ONCE IN A LIFETIME-USE SMARTSET# [id number] Completed 08/31/2016, 03/12/2012 Pneumococcal Vaccine: 65+ Years Completed 05/27/2017, 01/20/2016 Hepatitis B Vaccine Completed 06/19/2018, 07/02/2017, 05/31/2017 RETIRED - COLONOSCOPY-EVERY 5 YRS AGES 18-100 Discontinued 03/02/2020, 03/02/2020, 10/12/2014, Additional history exists HPV (Gardasil) Vaccine Aged Out No lo nger eligible based on patient's age to complete this topic MENINGOCOCCAL (MENACTRA/MENVEO) Aged Out No longer eligible based on patient's age to complete this topic documented as of this encounter Medical Devices Implanted Type Area Program/Music Director Device Identifier Shelf Expiration Date Model / Serial / Lot Lens Intraoc 21.0 - [id number] - [id number] Implanted:Qty: 1 on 04/20/2019 by Rayshawn Monaco MD at [facility] Left: Eye [employer] 11/29/2023 [id number] / [id number] / [id number] Lens Intraoc 21.0 - [id number] - [id number] Implanted:Qty: 1 on 04/28/2019 by Rayshawn Monaco MD at [facility] Right: Eye [employer] 11/29/2023 [id number] / [id number] / [id number] documented as of this encounter Visit Diagnoses Diagnosis MyCode Research Other*[id number] documented in this encounter Advance Directives * Full Code (Latest Code Status on File) Date Activated Date Inactivated Comments 02/10/2019 10:51 AM 02/12/2019 1:41 PM This order reflects the patients wishes and were consensually agreed upon. Care Teams Aluminum Boat Inspector Relationship Specialty Start Date End Date Sulema Coughlin MD [address] [place] [address] JIHAN Contreras [id number] PCP - General Family Medicine 03/28/11 documented as of this encounter
[2024-06-16] MEDS ORDERED: ONDANSETRON INJ 2 MG/ML 2 ML VIAL IV PRN (22:35)
[2024-06-16] MEDS ORDERED: oxyCODONE HCL IR 5 MG TAB (IMMEDIATE RELEASE) PO PRN (22:35)
[2024-06-16] MEDS ORDERED: ACETAMINOPHEN 325 MG TAB PO PRN (22:35)
[2024-06-16] MEDS ORDERED: POLYETHYLENE (MIRALAX) 17 GM PACK PO PRN (22:35)
[2024-06-16] MEDS: TAMSULOSIN HCL 0.4 MG CAP PO SCH (23:25)
[2024-06-16] MEDS: DIGOXIN 0.125 MG TAB PO SCH (23:26)
[2024-06-16] MEDS: ATORVASTATIN 40 MG TAB PO SCH (23:26)
[2024-06-16] MEDS: PANTOprazole 40 MG TAB PO SCH (23:26)
[2024-06-16] MEDS: MEROPENEM 500 MG in SYRINGE 0 ML IV SCH (23:27)
[2024-06-17] MEDS: VANCOMYCIN HCL 1,000 MG/270 ML BAG IV SCH (05:32)
[2024-06-17 06:02] LABS: Basophils # (auto) 0.01 K/uL (0.00-0.20); Basophils % (auto) 0.1 %; Eosinophils # (auto) 0.12 K/uL (0.00-0.50); Eosinophils % (auto) 1.8 %; Hematocrit (blood only) 28.6 % (37.0-47.0); Immature Granulocytes # (auto) 0.05 K/uL (0.01-0.20); Immature Granulocytes % (auto) 0.7 %; Lymphocytes # (auto) 1.16 K/uL (1.20-3.40); Lymphocytes % (auto) 17.2 %; Mean Corpuscular Hemoglobin 24.3 pg (25.0-34.0); Mean Corpuscular Hgb Conc 31.5 g/dL (32.0-36.0); Mean Corpuscular Volume 77.3 fL (80.0-100.0); Mean Platelet Volume 9.1 fL (9.4-12.4); Monocytes # (auto) 0.49 K/uL (0.11-0.59); Monocytes % (auto) 7.3 %; Neutrophils % (auto) 72.9 %; Platelet Count 320 K/uL (130-400); RDW Coefficient of Variation 15.9 % (11.5-14.5); White Blood Count 6.73 K/ul (4.8-10.8)
[2024-06-17 06:17] LABS: BUN Creatinine Ratio 18.6 (10-20); C Reactive Protein 0.92 mg/dl (0-0.5); Calcium 8.4 mg/dl (8.6-10.3); Creatinine Clr Calc Pharmacy 102.3 ml/min; Magnesium 1.8 mg/dl (1.7-2.4); Potassium 3.7 mmol/L (3.5-5.1)
[2024-06-17 06:37] LABS: Ferritin 14.8 ng/ml (8-388)
[2024-06-17 07:02] LABS: Estimated Average Glucose 140 mg/dl; Hemoglobin A1C 6.5 % (4.5-5.6)
[2024-06-17] MEDS: CYANOCOBALAMIN (B-12) 500 MCG TABLET PO SCH (08:37)
[2024-06-17] MEDS: CALCIUM 600MG + VIT D 400 IU TAB PO SCH (08:38)
[2024-06-17] MEDS: MAGNESIUM OXIDE 400 MG TAB PO SCH (08:38)
[2024-06-17] MEDS: VENLAFAXINE HCL XR 75 MG CAPXR PO SCH (08:38)
[2024-06-17] MEDS: dilTIAZem HCL 180 MG CAPCR PO SCH (08:38)
--- NOTE | 2024-06-17 10:44 | Pharmacy Report ---
Pharmacy PK ABX Note - Date of Service June 17, 2024 - Assessment and Plan Assessment 73 year old F receiving vancomycin and meropenem for treatment of amputation stump infection/osteomyelitis. Left hand culture from 06/09 ([facility]) (+) ESBL E.coli sensitive to ertapenem, Providencia rettgeri, and MSSA. S/p left hand amputation. Blood cultures pending. 06/16 urine culture (+) E.coli. Renal function stable. ID consulted. Day #2 of antimicrobial therapy. Plan Vancomycin * Loading dose: 1500 mg IV x 1 * Maintenance dose: 1000 mg IV every 12 hours * Regimen is predicted to achieve target AUC/FLOYD of 400-600 mg/L.hr * Will obtain a level tomorrow AM Pharmacy will continue to follow and will adjust dose/frequency as necessary. Thank you. Pharmacy has transitioned to AUC monitoring for vancomycin. AUC/FLOYD is the preferred PK/PD target and is associated with decreased risk of nephrotoxicity compared to traditional trough targets.
--- NOTE | 2024-06-17 15:20 | Infectious Disease Consult ---
Date of Consultation June 17, 2024 Assessment & Plan (1) Osteomyelitis of left hand: (2) Confusion: (3) Elevated lactic acid level: (4) History of partial amputation of left hand: Plan 73yo F with h/o T2DM, afib, HCV s/p treatment, multiple admissions in the past year including complicated UTI with shock in 07/2023 d/t Klebsiella c/b acrocyanosis of all 4 extremities and tip of nose (c/b GIB, occipital lobe infarct, difficulty with IV access including placement of PICC), admissions 10/2023 for left foot TMA at [facility] and right hand gangrene s/p right hand amputation at [facility], admission in 11/2023 with left foot gangrene s/p left foot TMA (cx with ESBL), admission 12/2023 with left foot stump wound infection s/p I+D (cx MSSA, tx with ceftin x 14d), recent amputation of left hand on 06/09/24 who presented on 06/16 from [place] with increased confusion x 2 days. Has u rinary incontinence but no reported urinary symptoms. She was noted to have drainage from left arm stump. Here she was afebrile, vss. Initial labs with WBC 7.08, Cr 0.50, AST/ALT wnl. ESR 59. CRP 0.92. PCT <0.02. Lactate 2.8. UA > 50 WBC. CXR with trace pleural effusions with mild left basilar atelectasis. CTAP negative for acute findings. CT left hand with soft tissue edema with overlying skin leighton, no fluid collection, surgical changes. CTH neg for acute findings. She has been started on vancomycin and meropenem. Review of outside records indicated presence of osteomyelitis from margin resection. ID consulted 06/17. Outside records with ESBL E coli (sens-erta, R-FQ), Providencia rettgeri (S- erta, CTX), MSSA. Surgical path with margin of resection at metacarpal involved by acute osteomyelitis. Agree with treatment for osteomyelitis based on outside records. She does have some yellow drainage on hand and would discuss with ortho whether leighton can come out. She denies any urinary symptoms. If no MRSA growth on cultures here, then we can stop vancomycin since the S aureus at OSH was MSSA. # Left hand stump OM cx with ESBL E coli, Providenica, MSSA # Positive UA no urinary sx # AMS # H/o T2DM - discuss with ortho regarding leighton on left hand stump - f/u all cultures - continue meropenem - continue vancomycin can be stopped if no growth of MRSA from cx here - she will need 6 weeks of IV abx unfortunately due to the ESBL organism ID will continue to follow. If questions or concerns, contact via TigerText or Infectious Disease Call Center . Kady Rhoades MD [facility], Division of Infectious Diseases Consultation Information Consultation was provided via telemedicine using two-way real-time interactive telecommunication between the patient and the telemedicine provider. For the duration of the visit, the provider was performing the assessment from a different facility than the patient. This includesuse of bluetooth stethoscope forauscultationperformed by the telepresenter that the telemedicine provider can hear if described in the physical exam. Rocket Assembly Operator contact information: Please call ID Connect Call Center . (Phone Number For Physician Use Only) After establishing a telemedicine visit, patient was: Patient was verified with two unique identifiers, Patient/authorized rep acknowledged consent and understanding and Gave permission to continue telehealth session Time Spent with Patient: Initial => 75 min History of Present Illness Reason for Consultation: hand OM, wound infection, UTI Attending Physician: Doris Laughlin MD History of Present Illness 73yo F with h/o T2DM, afib, HCV s/p treatment, multiple admissions in the past year including complicated UTI with shock in 07/2023 d/t Klebsiella c/b acrocyanosis of all 4 extremities and tip of nose (c/b GIB, occipital lobe infarct, difficulty with IV access including placement of PICC), admissions 10/2023 for left foot TMA at [facility] and right hand gangrene s/p right hand amputation at [facility], admission in 11/2023 with left foot gangrene s/p left foot TMA (cx with ESBL), admission 12/2023 with left foot stump wound infection s/p I+D (cx MSSA, tx with ceftin x 14d), recent amputation of left hand on 06/09/24 who presented on 06/16 [place] with increased confusion x 2 days. She has been on oxycodone prn for a few days that did make her a bit more lethargic. No fevers or chills, chest pain, SOB, diarrhea, abdominal pain. Has urinary inc ontinence but no reported urinary symptoms. She was noted to have drainage from left arm stump. Here she was afebrile, vss. Initial labs with WBC 7.08, Cr 0.50, AST/ALT wnl. ESR 59. CRP 0.92. PCT <0.02. Lactate 2.8. UA > 50 WBC. CXR with trace pleural effusions with mild left basilar atelectasis. CTAP negative for acute findings. CT left hand with soft tissue edema with overlying skin leighton, no fluid collection, surgical changes. CTH neg for acute findings. She has been started on vancomycin and meropenem. Review of outside records indicated presence of osteomyelitis from margin resection. ID consulted 06/17. On evaluation, patient denies any pain. She also denies dysuria or urinary frequency. No abdominal pain, n/v/d. No back pain. She seems a bit confused when asking her questions and says she doesnt think there is any drainage from her stump now while looking at a wound covered with dressing. Allergies Allergy/AdvReac Type Severity Reaction Status Date / Time No Known Allergies Allergy Verified 02/05/24 10:07 Home Medications Medication Instructions Recorded Confirmed Type acetaminophen 325 mg tablet 650 mg (2 x 325 mg) PO Q6H PRN 09/10/23 06/16/24 Rx (Tylenol) FEVER >100/PAIN #30 tabs atorvastatin 40 mg tablet 40 mg PO HS #30 tabs 09/10/23 06/16/24 Rx cyanocobalamin (vitamin B-12) 1,000 mcg PO QAM #30 tabs 09/10/23 06/16/24 Rx 1,000 mcg tablet digoxin 125 mcg (0.125 mg) tablet 0.125 mg PO HS #30 tabs 09/10/23 06/16/24 Rx (Digitek) diltiazem HCl 180 mg 180 mg PO QAM #30 caps 09/10/23 06/16/24 Rx capsule,extended release 24 hr magnesium oxide 400 mg (241.3 mg 400 mg PO QAM #60 tabs 09/10/23 06/16/24 Rx magnesium) tablet metformin 1,000 mg tablet 1,000 mg PO BIDWMEAL #60 tabs 09/10/23 06/16/24 Rx tamsulosin 0.4 mg capsule 0.4 mg PO HS #30 caps 09/10/23 06/16/24 Rx alendronate 70 mg tablet (Fosamax) 70 mg PO WK 10/14/23 06/16/24 History bisacodyl 10 mg rectal suppository 10 mg [place] UD PRN Constipation 10/14/23 06/16/24 History (Dulcolax (bisacodyl)) calcium 500 mg (as 1 tab PO QAM 10/14/23 06/16/24 History carbonate)-vitamin D3 5 mcg (200 unit) tablet (Calcium 500 + D) magnesium hydroxide 400 mg/5 mL 2,400 mg PO UD PRN Constipation 10/14/23 06/16/24 History oral suspension pantoprazole 40 mg tablet,delayed 40 mg PO BID 10/14/23 06/16/24 History release sodium phosphates 19 gram-7 118 ml W[place] UD PRN Constipation 10/14/23 06/16/24 History gram/118 mL enema (Fleet Enema) aluminum-mag hydroxide-simethicone 10 ml PO Q4H PRN Stomach Upset 06/16/24 06/16/24 History 400 mg-400 mg-40 mg/5 mL oral susp (Mylanta Maximum Strength) oxycodone 5 mg tablet 5 mg PO Q4H PRN Pain (Scale Score 06/16/24 06/16/24 History 5 - 8) oxycodone 5 mg tablet 10 mg PO Q4H PRN Pain (Scale Score 06/16/24 06/16/24 History 9 -10) venlafaxine 75 mg capsule,extended 75 mg PO QAM 06/16/24 06/16/24 History release 24 hr Patient History Medical History Atrial fibrillation Carotid artery stenosis Moderate LEFT ICA stenosis, possible high risk, ulcerative plaque in this location. There is streak artifact from the calcium and patient motion limiting evaluation. History of upper gastrointestinal bleeding 07/2023 Non-occlusive thrombus right internal jugular vein Cognitive communication deficit in setting of encephalopathy Dysphagia, oral phase denies choking, denies specialized diet at this time Muscle weakness (generalized) Difficulty in walking, not elsewhere classified Urinary tract infection, site not specified Klebsiella pneumoniae [k. 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 ventilation. sepsis due to complicated UTI and bacteremia w/klebsiella pneumoniae, tx primarily w/IV cefepime. due to her severe sepsis and need for IV pressor, developed acrocyanosis/gangrene to all 4 extremities as well as distal nose. 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/gangrene" Complicated urinary tract infection Hydronephrosis due to obstruction of ureter hx Closed fracture of left distal radius and ulna hx History of COVID-19 07/2023, [facility], hospitalized 07/26/23-08/21/23 History of colon polyps Anxiety Surgical History S/P cystoscopy with ureteral stent placement 09/05/23>w/ureteroscopy and stone extraction, stent exchange; stent removed 09/09/23 History of colonoscopy History of hysterectomy History of tonsillectomy Family History Grandmother Family history of diabetes mellitus Family history of colon cancer Grandfather Family history of colon cancer Aunt Family history of colon cancer Uncle Family history of colon cancer Social History Smoking Status: Former smoker Tobacco Type: Cigarettes Second Hand Exposure: No; Do You Dip or Chew Tobacco: No; Hx Alcohol Use: No Hx Substance Use: No Preferred Language: Barbadian Communication Ability: Effective Cattle Dealer Required: No Beliefs That Will Affect Care: None Current Living Situation: Personal Care Facility Current Living Situation Comment: [facility] Feels Safe at Home: Yes Assistive Devices: Hospital Bed and Wheelchair Review of System 10-point review of systems reviewed and are negative except for as above. Physical Exam Physical Exam: General: Awake, alert, no acute distress HEENT: NC/AT, EOMI, mmm Neck: supple Lungs: CTA bl, no w/c/r Heart: nl S1/S2, no appreciable murmurs Abdomen: soft, NT/ND Ext: amputations of both hands, bl TMA, left hand stump with purulent drainage, leighton in place Skin: no rash Neuro: moving all extremities Results & Data Vital Signs (Past 12 Hours) Vital Signs Temp Pulse Pulse Resp BP BP Pulse Ox 06/17/24 14:29 36.7 C 63 16 152/75 H 99 06/17/24 13:00 78 18 142/74 H 95 06/17/24 12:00 84 16 138/73 95 06/17/24 12:00 78 18 138/73 98 06/17/24 11:00 83 16 133/68 100 06/17/24 10:00 79 18 141/69 H 98 06/17/24 09:00 75 18 143/70 H 97 06/17/24 08:00 84 18 135/72 97 06/17/24 07:01 74 06/17/24 07:00 74 16 136/72 92 06/17/24 06:00 71 16 132/68 99 06/17/24 05:00 79 18 98 06/17/24 05:00 147/72 H 06/17/24 04:09 78 18 137/77 100 06/17/24 03:21 79 16 153/77 H 97 O2 Del Method 06/17/24 14:29 Room Air 06/17/24 13:00 Room Air 06/17/24 12:00 Room Air 06/17/24 12:00 Room Air 06/17/24 11:00 Room Air 06/17/24 10:00 Room Air 06/17/24 09:00 Room Air 06/17/24 08:00 Room Air 06/17/24 07:01 06/17/24 07:00 Room Air 06/17/24 06:00 06/17/24 05:00 06/17/24 05:00 06/17/24 04:09 06/17/24 03:21 Laboratory Results Labs reviewed. Diagnostic Findings Imaging reviewed.
--- NOTE | 2024-06-17 18:46 | Hospitalist Progress Note ---
Date of Service June 17, 2024 Assessment & Plan (1) Amputation stump infection: Plan: With left arm stump wound infection with drainage and small opening wound ulnar side of incision Growing ESBL E. coli, Providencia, and MSSA on cultures with positive bony margins for OM ESR, CRP moderately elevated Continue meropenem and Vanco based on sensitivity date for these organisms Consult ID appreciated-recommends 6 weeks IV meropenem, can stop Vanco if no MRSA Check wound cx Will d/w Ortho about whether or not lieghton should be removed Consult Wound Care, continue dialy dressing changes Discussed case with and shared pictures with pt's hand surgeon, Dr. Lay who is in agreement with antibiotic treatment on admission Will need PICC line (2) Urinary tract infection, site not specified: Plan: UA abnormal, very foul smelling urine on admission, with a h/o chronic incontinence Ur cx with E. coli, sens pending continue meropenem follow urine and blood cxs continue Flomax for h/u urine retention (3) Acute metabolic encephalopathy: Plan: Secondary to UTI and psosibly from wound infection Mild, much improved treat underlying infection (4) Anemia: Plan: hgb low at 9 but improved from previous after GI bleeds Fe studies show severe Fe deficiency with transferrin sat 5%, ferritin 14 CBC in AM (5) Type 2 diabetes mellitus: Plan: on metformin only at home A1C here 6.5%, well controlled hold home metformin ADA diet no accuchecks as has no hands to test --> follow venous glucose-120 today (6) HTN (hypertension): Plan: BPs normal to mildly elevated continue diltiazem (7) CVA (cerebral vascular accident): Plan: noted on previous head imaging continue statin, not on antiplatelet or anticoagulant due to h/o severe GI bleeding (8) Lone atrial fibrillation: Plan: occurred in setting of critical illness in early 2023 Here in NSR Continue diltiazem and digoxin for rate control No longer on DOAC given h/o GI bleeding no need for tele monitoring (9) Dyslipidemia: Plan: continue statin (10) Anxiety: Plan: continue home venlafaxine Plan DVT proph-Lovenox Dispo-continued stay med/surg unit DNR/DNI as per my d/w patient with daughter and sister present Admission and Anticipated Discharge Date Admission Date: June 16, 2024 Subjective Pt has no complaints. No CP, SOB, no nausea or abd pain. Is eating No pain anywhere. Physical Exam Constitutional: WD/WN, vitals as above Eyes: + anicteric sclerae Respiratory: normal respiratory effort, lungs clear to auscultation Cardiovascular: RRR, no murmur, no edema Gastrointestinal (Abdomen): normal bowel sounds, soft, nontender, no hepatosplenomegaly Musculoskeletal: Extremities: + extremities abnormal to inspection (bilat hand amputations,bilat transmetatarsal amputations) Skin: + wound (left arm stump wound dressing c /d/i) Psychiatric: A+Ox3, euthymic affect Results & Data Results & Data Vital Signs (Past 12 Hours) Vital Signs Temp Pulse Pulse Resp BP BP Pulse Ox 06/17/24 14:29 36.7 C 63 16 152/75 H 99 06/17/24 13:00 78 18 142/74 H 95 06/17/24 12:00 84 16 138/73 95 06/17/24 12:00 78 18 138/73 98 06/17/24 11:00 83 16 133/68 100 06/17/24 10:00 79 18 141/69 H 98 06/17/24 09:00 75 18 143/70 H 97 06/17/24 08:00 84 18 135/72 97 06/17/24 07:01 74 06/17/24 07:00 74 16 136/72 92 O2 Del Method 06/17/24 14:29 Room Air 06/17/24 13:00 Room Air 06/17/24 12:00 Room Air 06/17/24 12:00 Room Air 06/17/24 11:00 Room Air 06/17/24 10:00 Room Air 06/17/24 09:00 Room Air 06/17/24 08:00 Room Air 06/17/24 07:01 06/17/24 07:00 Room Air Laboratory Results CBC, BMP, ESR, CRP, Urine cx , blood cx reviewed PG Care Time/CCT Total # of Minutes Spent Total Time Spent with Patient: Total time spent is greater than 50% in coordination of care (as documented) at patient's floor/unit and/or counseling patient: Coding Level of Care Code 01969 SUB INP/OBS CARE 2/35MIN Diagnoses Amputation stump infection T87.40 Urinary tract infection, site not specified N39.0 Acute metabolic encephalopathy G93.41 Anemia, unspecified type D64.9 Anemia type: unspecified type Type 2 diabetes mellitus with other specified complication, without long-term current use of insulin E11.69 Diabetes mellitus complication status: with other specified complication Diabetes mellitus penitentiary insulin use: without penitentiary use Primary hypertension I10 Hypertension type: primary hypertension CVA (cerebral vascular accident) I63.9 Lone atrial fibrillation I48.91 Dyslipidemia E78.5 Anxiety F41.9 (4) Anemia Anemia type: unspecified type Qualified Code(s): D64.9 - Anemia, unspecified (5) Type 2 diabetes mellitus Diabetes mellitus complication status: with other specified complication Diabetes mellitus intermediate teacher insulin use: without intermediate teacher use Qualified Code(s): E11.69 - Type 2 diabetes mellitus with other specified complication (6) HTN (hypertension) Hypertension type: primary hypertension Qualified Code(s): I10 - Essential (primary) hypertension
[2024-06-17] MEDS: FERROUS SULFATE 325 MG TAB PO SCH (20:35)
[2024-06-18 05:49] LABS: Basophils # (auto) 0.02 K/uL (0.00-0.20); Basophils % (auto) 0.3 %; Eosinophils % (auto) 1.7 %; Hematocrit (blood only) 28.4 % (37.0-47.0); Hemoglobin 8.9 g/dl (12.0-16.0); Immature Granulocytes # (auto) 0.02 K/uL (0.01-0.20); Immature Granulocytes % (auto) 0.3 %; Lymphocytes # (auto) 1.23 K/uL (1.20-3.40); Lymphocytes % (auto) 21.3 %; Mean Corpuscular Hemoglobin 24.3 pg (25.0-34.0); Mean Corpuscular Hgb Conc 31.3 g/dL (32.0-36.0); Mean Corpuscular Volume 77.6 fL (80.0-100.0); Mean Platelet Volume 9.2 fL (9.4-12.4); Monocytes # (auto) 0.39 K/uL (0.11-0.59); Monocytes % (auto) 6.7 %; Neutrophils # (auto) 4.02 K/uL (1.40-6.50); Neutrophils % (auto) 69.7 %; Platelet Count 299 K/uL (130-400); RDW Coefficient of Variation 15.9 % (11.5-14.5); RDW Standard Deviation 44.9 fL (36.4-46.3); Red Blood Count 3.66 M/uL (4.20-5.40); White Blood Count 5.78 K/ul (4.8-10.8)
[2024-06-18 06:02] LABS: BUN Creatinine Ratio 16.3 (10-20); Calcium 8.3 mg/dl (8.6-10.3); Creatinine Clr Calc Pharmacy 102.3 ml/min; Potassium 3.5 mmol/L (3.5-5.1)
--- NOTE | 2024-06-18 06:14 | Electrocardiogram Report ---
Test Reason : Blood Pressure : */* mmHG Vent. Rate : 80 BPM Atrial Rate : 80 BPM P-R Int : 164 ms QRS Dur : 78 ms QT Int : 334 ms P-R-T Axes : 72 65 66 degrees QTcB Int : 385 ms Normal sinus rhythm Nonspecific ST abnormality Abnormal ECG When compared with ECG of 28-Dec-2023 05:36, No significant change Confirmed by Jose R Kerns ([id number]) on 06/18/2024 6:13:51 AM Referred By: [facility] Confirmed By: Jose R Kerns
[2024-06-18] MEDS: VANCOMYCIN LEVEL ONE (06:20)
--- NOTE | 2024-06-18 09:08 | Pharmacy Report ---
Pharmacy PK ABX Note - Date of Service June 18, 2024 - Assessment and Plan Assessment 06/18: * Vancomycin level this AM was ~11 mcg/ml - current regimen associated with goal AUC/FLOYD 400-600 therefore will continue current dose. Prelim blood cultures thus far no growth, urine with E coli ESBL - sensitive to ertapenem/meropenem. ID consulted, they recommend potential d/c of vancomycin if cultures remain negative for MRSA 06/17: * 73 year old F receiving vancomycin and meropenem for treatment of amputation stump infection/osteomyelitis. Left hand culture from 06/09 ([facility]) (+) ESBL E.coli sensitive to ertapenem, Providencia rettgeri, and MSSA. S/p left hand amputation. Blood cultures pending. 06/16 urine culture (+) E.coli. Renal function stable. ID consulted. * Day #2 of antimicrobial therapy. Plan Vancomycin * Continue vancomycin 1 gm iv q 12 hours until cultures finalize Pharmacy will continue to follow and will adjust dose/frequency as necessary. Thank you. Pharmacy has transitioned to AUC monitoring for vancomycin. AUC/FLOYD is the preferred PK/PD target and is associated with decreased risk of nephrotoxicity compared to traditional trough targets.
[2024-06-18] MEDS ORDERED: diphenhydrAMINE Capsule 25 MG CAP PO PRN (18:28)
--- NOTE | 2024-06-18 18:30 | Hospitalist Progress Note ---
Date of Service June 18, 2024 Assessment & Plan (1) Amputation stump infection: Plan: With left arm stump wound infection with drainage and wound dehiscence ulnar side of incision Growing ESBL E. coli, Providencia, and MSSA on cultures with positive bony margins for OM on surgical pathology ESR, CRP moderately elevated Consult ID appreciated-recommends 6 weeks IV meropenem, can stop Vanco if no MRSA on wound cx here Wound cx here Gram stain with many GPCs and GPRs, ID pending Blood cxs-NGTD Removed 7 leighton around dehisced portion of wound on 06/18 Consult Wound Care, continue daily dressing changes. This wound is not appropriate for a wound vac as per dairy feed worker Discussed case with and shared pictures with pt's hand surgeon, Dr. Lay who is in agreement with antibiotic treatment but does not feel any surgical debridement needed at this time Follow blood cxs Add warm compresses and po benadryl prn itching for Vanoc site extravasation left forearm Continue meropenem and Vanco based on sensitivity date for these organisms Will need PICC line prior to discharge but IV team currently placed US-guided IV 06/18 and has little hope she has a vein big enough for a PICC (2) Urinary tract infection, site not specified: Plan: UA abnormal, very foul smelling urine on admission, with a h/o chronic incontinence Ur cx with ESBL E. coli, sens to meropenem continue meropenem follow blood cxs continue Flomax for h/u urine retention (3) Acute metabolic encephalopathy: Plan: Secondary to UTI and psosibly from wound infection Now resolved with treatment of infections (4) Anemia: Plan: hgb low at 9 but improved from previous after GI bleeds Fe studies show severe Fe deficiency with transferrin sat 5%, ferritin 14 Started ferrous sulfate 325mg po bid Follow CBC in AM (5) Type 2 diabetes mellitus: Plan: on metformin only at home A1C here 6.5%, well controlled hold home metformin ADA diet no accuchecks as has no hands to test --> follow venous glucose-120s (6) HTN (hypertension): Plan: BPs normal continue diltiazem (7) CVA (cerebral vascular accident): Plan: noted on previous head imaging continue statin, not on antiplatelet or anticoagulant due to h/o severe GI bleeding (8) Lone atrial fibrillation: Plan: occurred in setting of critical illness in early 2023 In NSR here-Continue diltiazem and digoxin for rate control No longer on DOAC given h/o GI bleeding no need for tele monitoring (9) Dyslipidemia: Plan: continue statin (10) Anxiety: Plan: continue home venlafaxine Plan DVT proph-Lovenox Dispo-continued stay med/surg unit, eventual discharge back to SNF on IV antibiotics once cultures finalized and antibiotics arranged at SNF DNR/DNI as per my d/w patient with daughter and sister present Admission and Anticipated Discharge Date Admission Date: June 16, 2024 Subjective Vanco extravasated in left arm, currently having itching and burning at the site. Otherwise no complaints. I discussed her care with patrol community service officer and with her Orthopedic Surgeon Physical Exam Constitutional: WD/WN, vitals as above Eyes: + anicteric sclerae Respiratory: normal respiratory effort, lungs clear to auscultation Cardiovascular: RRR, no murmur, no edema Gastrointestinal (Abdomen): normal bowel sounds, soft, nontender, no hepatosplenomegaly Musculoskeletal: Extremities: + extremities abnormal to inspection (bilat hand amputations,bilat transmetatarsal amputations) Skin: + wound left arm stump wound with some dehiscence of wound and purulent drainage on ulnar side no significant erythema of skin I removed 7 leighton from around dehisced portion that were no longer keeping skin edges approximated Also left proximal forearm with 6 cm diameter area of fluctuance, erythema, tender to palaption at site of Vanco extravasation Psychiatric: A+Ox3, euthymic affect Results & Data Results & Data Vital Signs (Past 12 Hours) Vital Signs Temp Pulse Resp BP Pulse Ox O2 Del Method 06/18/24 15:14 36.6 C 72 16 137/74 98 Room Air 06/18/24 08:19 36.5 C 60 18 132/77 92 Room Air Laboratory Results CBC, BMP, Ur cx, BCxs, wound cx reviewed PG Care Time/CCT Total # of Minutes Spent Total Time Spent with Patient: Total time spent is greater than 50% in coordination of care (as documented) at patient's floor/unit and/or counseling patient: Coding Level of Care Code 38742 SUB INP/OBS CARE 3/50MIN Diagnoses Amputation stump infection T87.40 Urinary tract infection, site not specified N39.0 Acute metabolic encephalopathy G93.41 Anemia, unspecified type D64.9 Anemia type: unspecified type Type 2 diabetes mellitus with other specified complication, without long-term current use of insulin E11.69 Diabetes mellitus complication status: with other specified complication Diabetes mellitus group home insulin use: without keno terminal operator use Primary hypertension I10 Hypertension type: primary hypertension CVA (cerebral vascular accident) I63.9 Lone atrial fibrillation I48.91 Dyslipidemia E78.5 Anxiety F41.9 (4) Anemia Anemia type: unspecified type Qualified Code(s): D64.9 - Anemia, unspecified (5) Type 2 diabetes mellitus Diabetes mellitus complication status: with other specified complication Diabetes mellitus keno terminal operator insulin use: without keno terminal operator use Qualified Code(s): E11.69 - Type 2 diabetes mellitus with other specified complication (6) HTN (hypertension) Hypertension type: primary hypertension Qualified Code(s): I10 - Essential (primary) hypertension
[2024-06-18] MEDS: diphenhydrAMINE Capsule 25 MG CAP PO ONE (19:23)
[2024-06-19 08:24] LABS: Albumin Globulin Ratio 1.1 (0.9-2); Albumin Level 3.2 gm/dl (3.4-5.0); Bilirubin,Total 0.3 mg/dl (0.2-1.0); Calcium 8.4 mg/dl (8.6-10.3); Creatinine Clr Calc Pharmacy 109.9 ml/min; Globulin 2.9 gm/dl (2.5-4.0); Total Protein 6.1 gm/dl (6.0-8.3)
[2024-06-19 08:54] LABS: Hematocrit (blood only) 29.7 % (37.0-47.0); Hemoglobin 9.3 g/dl (12.0-16.0); Mean Corpuscular Hemoglobin 24.6 pg (25.0-34.0); Mean Corpuscular Hgb Conc 31.3 g/dL (32.0-36.0); Mean Corpuscular Volume 78.6 fL (80.0-100.0); Mean Platelet Volume 10.2 fL (9.4-12.4); Platelet Count 240 K/uL (130-400); RDW Coefficient of Variation 15.9 % (11.5-14.5); RDW Standard Deviation 44.9 fL (36.4-46.3); Red Blood Count 3.78 M/uL (4.20-5.40); White Blood Count 6.38 K/ul (4.8-10.8)
[2024-06-19 08:56] LABS: Acanthocytes 1+; Polychromasia 1+
[2024-06-19 09:02] LABS: ALC (manual) 1.28 K/uL (1.2-3.4); ANC (manual) 4.72 K/uL (1.4-6.5); Eosinophils # (manual) 0.13 K/uL (0-0.50); Lymphocytes # (manual) 1.28 K/uL (1.2-3.4); Monocytes # (manual) 0.26 K/uL (0.11-0.59); Neutrophils # (manual) 4.72 K/uL (1.40-6.50); Neutrophils % (manual) 74 %
[2024-06-19] MEDS: ADVANCED PROBIOTIC 625 MG CAPSULE PO SCH (10:56)
--- NOTE | 2024-06-19 11:32 | Infectious Disease Progress Nt ---
Date of Service June 19, 2024 Assessment & Plan (1) Osteomyelitis of left hand: (2) Confusion: (3) Elevated lactic acid level: (4) History of partial amputation of left hand: Plan 73yo F with h/o T2DM, afib, HCV s/p treatment, multiple admissions in the past year including complicated UTI with shock in 07/2023 d/t Klebsiella c/b acrocyanosis of all 4 extremities and tip of nose (c/b GIB, occipital lobe infarct, difficulty with IV access including placement of PICC), admissions 10/2023 for left foot TMA at [facility] and right hand gangrene s/p right hand amputation at [facility], admission in 11/2023 with left foot gangrene s/p left foot TMA (cx with ESBL), admission 12/2023 with left foot stump wound infection s/p I+D (cx MSSA, tx with ceftin x 14d), recent amputation of left hand on 06/09/24 who presented on 06/16 from [facility] with increased confusion x 2 days. Has urinary incontinence but no reported urinary symptoms. She was noted to have drainage from left arm stump. Here she was afebrile, vss. Initial labs with WBC 7.08, Cr 0.50, AST/ALT wnl. ESR 59. CRP 0.92. PCT <0.02. Lactate 2.8. UA > 50 WBC. CXR with trace pleural effusions with mild left basilar atelectasis. CTAP negative for acute findings. CT left hand with soft tissue edema with overlying skin leighton, no fluid collection, surgical changes. CTH neg for acute findings. She has been started on vancomycin and meropenem. Review of outside records indicated presence of osteomyelitis from margin resection. ID consulted 06/17. Seen by wound care, cx from hand were sent on 06/18. Per ortho hand, no intervention. Outside records with ESBL E coli (sens-erta, R-FQ), Providencia rettgeri (S- erta, CTX), MSSA. Surgical path with margin of resection at metacarpal involved by acute osteomyelitis. Agree with treatment for osteomyelitis based on outside records. She has cx that were also sent from wound yesterday, will follow up for any adjustments. # Left hand stump OM OSH cx with ESBL E coli, Providencia, MSSA # Positive UA no urinary sx # AMS # H/o T2DM - f/u all wound cx from 06/18 - continue meropenem - continue vancomycin for now - if no growth of MRSA or other concerning organisms on wound cx from 06/18, then vancomycin can be stopped with plan for 6 weeks of IV abx (start 06/16, end 07/28), which can be done with ertapenem 1g IV daily - if new concerning organism noted on WCX from 06/18, then please contact ID - she will need weekly CBC w diff, CMP, and ESR/CRP while on IV abx - outpatient follow up with her ID provider ID will continue to follow. Please note that there will be no ID notes over the weekend. If questions or concerns arise, please contact the Infectious Disease Call Center and ask to speak with the covering ID physician. Dr. Watson will take over on Saturday. Kady Rhoades MD [facility], Division of Infectious Diseases Admission and Anticipated Discharge Date Admission Date: June 16, 2024 Subjective This patient recommendation is based on a telemedicine consult request which was completed asynchronously through chart review and information provided by the primary physician. The patient was not seen or examined today. The evaluation is consultative in nature and all patient care and treatment decisions can either be accepted or rejected by the patient's primary hospital-based treating physician using their own independent medical judgment for their patient. Time Spent Reviewing Chart: 31+ minutes Results & Data Vital Signs (Past 12 Hours) Vital Signs Temp Pulse Resp BP Pulse Ox O2 Del Method 06/19/24 08:25 65 14 126/70 100 Room Air 06/19/24 07:58 36.6 C 61 16 123/65 97 Room Air
--- NOTE | 2024-06-19 15:58 | Hospitalist Progress Note ---
Date of Service June 19, 2024 Assessment & Plan (1) Amputation stump infection: Plan: With left arm stump wound infection with drainage and wound dehiscence ulnar side of incision Growing ESBL E. coli, Providencia, and MSSA on cultures with positive bony margins for OM on surgical pathology ESR, CRP moderately elevated Consult ID appreciated-recommends 6 weeks IV meropenem, can stop Vanco if no MRSA on wound cx here Wound cx here Gram stain with many GPCs and GPRs, ID pending Blood cxs-NGTD Removed 7 leighton around dehisced portion of wound on 06/18, discussed with Dr Lay - planning on keeping other leighton and sutures in for now Consult Wound Care, continue daily dressing changes. This wound is not appropriate for a wound vac as per assistant tennis coach Follow blood cxs Add warm compresses and po benadryl prn itching for Vanoc site extravasation left forearm Continue meropenem and Vanco based on sensitivity date for these organisms - final antibiotic choice pending repeat culture results Unable to get PICC line, will likely need to keep US guided IV (2) Urinary tract infection, site not specified: Plan: UA abnormal, very foul smelling urine on admission, with a h/o chronic i ncontinence Ur cx with ESBL E. coli, sens to meropenem continue meropenem, possibly can switch to ertapenem on discharge follow blood cxs continue Flomax for h/u urine retention (3) Acute metabolic encephalopathy: Plan: Secondary to UTI and psosibly from wound infection Now resolved with treatment of infections (4) Anemia: Plan: hgb low at 9 but improved from previous after GI bleeds, stable Fe studies show severe Fe deficiency with transferrin sat 5%, ferritin 14 Started ferrous sulfate 325mg po bid (5) Type 2 diabetes mellitus: Plan: on metformin only at home A1C here 6.5%, well controlled Restart home metformin ADA diet no accuchecks as has no hands to test --> follow venous glucose-120s (6) HTN (hypertension): Plan: BPs normal continue diltiazem (7) CVA (cerebral vascular accident): Plan: noted on previous head imaging continue statin, not on antiplatelet or anticoagulant due to h/o severe GI bleeding (8) Lone atrial fibrillation: Plan: occurred in setting of critical illness in early 2023 In NSR here-Continue diltiazem and digoxin for rate control No longer on DOAC given h/o GI bleeding no need for tele monitoring Plan Anxiety - venlafaxine Dyslipidemia- atorvastatin VTE Prophylaxis - Lovenox 30mg SQ daily (noted history of GI bleeding although this appears to be in setting of Xarelto use, x6 packed RBCs transfusion in last year, discussed with patient and ok to start) Diet - T2DM Dispo-continued stay med/surg unit, eventual discharge back to SNF on IV antibiotics once cultures finalized and antibiotics arranged at SNF DNR/DNI as per prior provider d/w patient with daughter and sister present Admission and Anticipated Discharge Date Admission Date: June 16, 2024 Subjective No fever, chills. No current urinary symptoms. Hand last dressed yesterday. Labs, imaging reviewed Physical Exam Constitutional: WD/WN, vitals as above Respiratory: normal respiratory effort, lungs clear to auscultation Cardiovascular: RRR, no murmur, no edema Skin: Dressing with slight drainage, dressing not removed but no erythema surrounding Neurologic: awake; not confused Results & Data Results & Data Vital Signs (Past 12 Hours) Vital Signs Temp Pulse Resp BP Pulse Ox O2 Del Method 06/19/24 15:32 36.9 C 68 18 135/73 100 Room Air 06/19/24 08:25 65 14 126/70 100 Room Air 06/19/24 07:58 36.6 C 61 16 123/65 97 Room Air PG Care Time/CCT Total # of Minutes Spent Total Time Spent with Patient: Total time spent is greater than 50% in coordination of care (as documented) at patient's floor/unit and/or counseling patient: Coding Level of Care Code 55401 SUB INP/OBS CARE 2/35MIN Diagnoses Amputation stump infection T87.40 Urinary tract infection, site not specified N39.0 Acute metabolic encephalopathy G93.41 Anemia, unspecified type D64.9 Anemia type: unspecified type Type 2 diabetes mellitus with other specified complication, without long-term current use of insulin E11.69 Diabetes mellitus intermodal owner operator truck driver insulin use: without prison use Diabetes mellitus complication status: with other specified complication Primary hypertension I10 Hypertension type: primary hypertension CVA (cerebral vascular accident) I63.9 Lone atrial fibrillation I48.91 (4) Anemia Anemia type: unspecified type Qualified Code(s): D64.9 - Anemia, unspecified (5) Type 2 diabetes mellitus Diabetes mellitus intermodal owner operator truck driver insulin use: without prison use Diabetes mellitus complication status: with other specified complication Qualified Code(s): E11.69 - Type 2 diabetes mellitus with other specified complication (6) HTN (hypertension) Hypertension type: primary hypertension Qualified Code(s): I10 - Essential (primary) hypertension
[2024-06-19] MEDS: COLLAGENASE OINT 30 GM TUBE EXT SCH (17:19)
[2024-06-19] MEDS: metFORMIN HCL 500 MG TAB PO SCH (17:19)
[2024-06-19] MEDS ORDERED: COLLAGENASE OINT 30 GM TUBE EXT SCH (21:00)
[2024-06-19] MEDS: ENOXAPARIN INJ 30 MG/0.3 ML SYR SQ SCH (22:03)
[2024-06-20 09:12] LABS: Creatinine Clr Calc Pharmacy 97.7 ml/min
--- NOTE | 2024-06-20 11:21 | Hospitalist Progress Note ---
Date of Service June 20, 2024 Assessment & Plan (1) Amputation stump infection: Plan: Medically stable for discharge back to [facility] once able to accept back and transport can be arranged With left arm stump wound infection with drainage and wound dehiscence ulnar side of incision Growing ESBL E. coli, Providencia, and MSSA on cultures with positive bony margins for OM on surgical pathology Wound cx here MSSA Blood cxs-NGTD Removed 7 leighton around dehisced portion of wound on 06/18, discussed with Dr Lay - planning on keeping other leighton and sutures in until follow up Consult Wound Care, continue daily dressing changes. This wound is not appropriate for a wound vac as per database management system specialist Consult ID appreciated-recommends 6 weeks IV ertapenem (finishes 07/28/23) (2) Urinary tract infection, site not specified: Plan: UA abnormal, very foul smelling urine on admission, with a h/o chronic incontinence Ur cx with ESBL E. coli Antibiotics switched to ertapenem as above follow blood cxs continue Flomax for h/u urine retention (3) Acute metabolic encephalopathy: Plan: Secondary to UTI +/- stump infection Now resolved with treatment of infections (4) Anemia: Plan: hgb low at 9 but improved from previous after GI bleeds, stable Fe studies show severe Fe deficiency with transferrin sat 5%, ferritin 14 Started ferrous sulfate 325mg po bid (5) Type 2 diabetes mellitus: Plan: on metformin only at home A1C here 6.5%, well controlled Restarted home metformin 06/19 ADA diet no accuchecks as has no hands to test --> follow venous glucose-120s (6) HTN (hypertension): Plan: BPs normal continue diltiazem (7) CVA (cerebral vascular accident): Plan: noted on previous head imaging continue statin, not on antiplatelet or anticoagulant due to h/o severe GI bleeding (8) Lone atrial fibrillation: Plan: occurred in setting of critical illness in early 2023 In NSR here-Continue diltiazem and digoxin for rate control No longer on DOAC given h/o GI bleeding no need for ongoing tele monitoring Plan Anxiety - venlafaxine Dyslipidemia- atorvastatin VTE Prophylaxis - Lovenox 30mg SQ daily (noted history of GI bleeding although this appears to be in setting of Xarelto use, x6 packed RBCs transfusion in last year, discussed with patient and ok to start) Diet - T2DM Disposition - medically stable for discharge, continued inpatient stay as unable to discharge back to SNF today DNR/DNI as per prior provider d/w patient with daughter and sister present Admission and Anticipated Discharge Date Admission Date: June 16, 2024 Subjective No acute concerns or questions from patient. No new symptoms. She reports having bowel movements. ID planning on 6 week of ertapenem. MSSA on wound culture fro 06/18. Discussed with case management and transport too late for snf to take today. Plan for discharge tomorrow morning pending transport arrangements. Called [facility] and confirmed they have ertapenem in omnicell. Review of Systems Review of Systems: All systems reviewed & are unremarkable except as noted in HPI & below Physical Exam Constitutional: WD/WN, vitals as above Respiratory: normal respiratory effort, lungs clear to auscultation Cardiovascular: RRR, no murmur, no edema Skin: no lower extremity wounds Neurologic: awake; not confused Results & Data Results & Data Vital Signs (Past 12 Hours) Vital Signs Temp Pulse Resp BP Pulse Ox O2 Del Method 06/20/24 08:55 68 14 153/67 H 100 Room Air 06/20/24 07:32 36.5 C 69 15 125/58 L 98 Room Air PG Care Time/CCT Total # of Minutes Spent Total Time Spent with Patient: Total time spent is greater than 50% in coordination of care (as documented) at patient's floor/unit and/or counseling patient: Coding Level of Care Code 78068 SUB INP/OBS CARE 2/35MIN Diagnoses Amputation stump infection T87.40 Urinary tract infection, site not specified N39.0 Acute metabolic encephalopathy G93.41 Anemia, unspecified type D64.9 Anemia type: unspecified type Type 2 diabetes mellitus with other specified complication, without long-term current use of insulin E11.69 Diabetes mellitus complication status: with other specified complication Diabetes mellitus terminal superintendent insulin use: without terminal superintendent use Primary hypertension I10 Hypertension type: primary hypertension CVA (cerebral vascular accident) I63.9 Lone atrial fibrillation I48.91 (4) Anemia Anemia type: unspecified type Qualified Code(s): D64.9 - Anemia, unspecified (5) Type 2 diabetes mellitus Diabetes mellitus complication status: with other specified complication Diabetes mellitus chcf insulin use: without chcf use Qualified Code(s): E11.69 - Type 2 diabetes mellitus with other specified complication (6) HTN (hypertension) Hypertension type: primary hypertension Qualified Code(s): I10 - Essential (primary) hypertension
[2024-06-20] MEDS: ERTAPENEM 1000MG 1,000 MG/10 ML SYR IV SCH (12:45)
[2024-06-21 07:36] VITALS: RESP 15
[2024-06-21 11:13] VITALS: BP 122/67; PULSE 68; TEMP 97.9; O2SAT 95
--- NOTE | 2024-06-22 07:29 | Discharge Summary ---
Discharge Summary Date of Service June 21, 2024 Principal Dx & Hospital Course #1 = Principal Diagnosis (1) Amputation stump infection: Zhane Kelly is a 73 year old female admitted to [facility] from June 16-2023 due to increased confusion. She was diagnosed with a amputation/stump/bone osteomyelitis and urine tract infection. Pictures were sent to her orthopedic surgeon and discussed and did not recommend surgical debr idement at this time. 7 surgical leighton were removed but orthopedics recommended leaving the rest in until follow up. She was seen by infectious disease and recommended 6 weeks of intravenous antibiotics. Initial antibiotics were vancomycin and meropenem and switched to ertapenem (no MRSA or pseudomonas grown) with planned last day July 28. Recommend weekly CBC w diff, CMP, and ESR/CRP while on IV abx. These antibiotics will also cover for her ESBL E. coli UTI (foul smelling urine on admission). No PICC line / mid line could be placed due to lack of suitable vein therefore antibiotics will be given through an US guided IV this was placed June 18. Marketed to last for 29 days. Next dressing change for US guided IV June 25 and should be changed weekly. She should follow up with Dr Lay as previously planned for her amputation. Please see separate discharge instructions for wound care management. 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 She had her left hand amputated on 06/09/[address] Lay and was taking some oxycodone prn pain for a few days as per her sister. This did seem to make the patient more lethargic than usual but then was more recently asking why she changed rooms (when she did not) at the SNF. Pt denies pain, no fevers/chills, no headache or nausea, no CP or SOB, no diarrhea or constipation, no abd or flank pain, no rashes. No urinary symptoms other than urinary incontinence since her prolonged ICU stay earlier this year. Her left arm stump is draining a bit of fluid. Of note, her cultures of the necrotic hand were reviewed and did recently grow ESBL E. coli, Providencia ruttgeri, and PCN-resistant MSSA. The pathology from the hand amputation also showed surgical margin of resection at metacarpal involved by acute osteomyelitis. She was also found to have an abnormal UA consistent with UTI. There was no evidence of kidney stones or sepsis on admission. Discharge Exam Constitutional well developed; + not well nourished and no acute distress Respiratory normal respiratory effort, lungs clear to auscultation Cardiovascular RRR, no murmur, no edema Gastrointestinal (Abdomen) normal bowel sounds, soft, nontender, no hepatosplenomegaly Discharge Plan Discharge Items Patient Disposition: Transfer Long Term Fac Reason For Visit: ENCEPHALOPATHY,UTI Discharge Diagnosis: Encephalopathy, UTI, amputation stump infection Activity: Resume your previous activity Non-emergency contact: Primary Care Provider Call non-emergency contact if: you have any medication questions and your symptoms worsen Follow-up/Referrals: [facility] [Primary Care Provider] - Shelton Lay MD [Physician] - (Follow up stump amputation infection, osteomyelitis) Diet: Carb Consistent or DM2 Addtl Attending Provider Instructions: You were admitted to [facility] from June 16-2023 due to increased confusion. You were diagnosed with a amputation/stump/bone infection and urine trace infection. Your case was discussed with orthopedics a nd do not recommend surgical debridement at this time. 7 surgical leighton were removed but orthopedics recommended leaving the rest in until follow up. You were seen by infectious disease and recommended 6 weeks of intravenous antibiotics. Antibiotics switched to ertapenem with planned last day July 28. Recommend weekly CBC w diff, CMP, and ESR/CRP while on IV abx. These antibiotics will also cover for your ESBL E. coli UTI. No PICC line / mid line could be placed due to lack of suitable vein therefore antibiotics will be given through an US guided IV this was placed June 18. Marketed to last for 29 days. Next dressing change for US guided IV June 25 and should be changed weekly. She should follow up with Dr Lay as previously planned for her amputation. Please see separate instructions for wound care management. Pending Studies at Discharge: No Stand-Alone Forms: My [facility] Skilled Items Patient informed of condition?: Yes DNR: Yes Discharge Level of Care: Skilled Communicable Disease: No Discharge Prognosis: Stable Lines: US Guided Peripheral IV Urinary Catheter: No Medications and DC Order Prescriptions: New ertapenem 1 gram recon soln 1 g IV DAILY 38 Days Qty: 38 0RF Continued magnesium oxide 400 mg (241.3 mg magnesium) Tablet 400 mg PO QAM Qty: 60 0RF atorvastatin 40 mg Tablet 40 mg PO HS Qty: 30 0RF acetaminophen [Tylenol] 325 mg Tablet 650 mg PO Q6H MDD 3,000mg/24hr PRN (Reason: FEVER >100/PAIN) Qty: 30 0RF diltiazem HCl 180 mg Capsule,Extended Release 24hr 180 mg PO QAM Qty: 30 0RF Rx Instructions: Hold for HR<60 or SBP<100 cyanocobalamin (vitamin B-12) 1,000 mcg Tablet 1,000 mcg PO QAM Qty: 30 0RF tamsulosin 0.4 mg Capsule 0.4 mg PO HS Qty: 30 0RF metformin 1,000 mg Tablet 1,000 mg PO BIDWMEAL Qty: 60 0RF digoxin [Digitek] 125 mcg (0.125 mg) tablet 0.125 mg PO HS Qty: 30 0RF Rx Instructions: Hold for HR<60 or SBP<100 magnesium hydroxide 400 mg/5 mL Suspension 2,400 mg PO UD PRN (Reason: Constipation) Rx Instructions: no BM for 3 days, administer MOM on 7-3 shift bisacodyl [Dulcolax (bisacodyl)] 10 mg Suppository 10 mg NH UD PRN (Reason: Constipation) Rx Instructions: day 3, 3-11pm shift, if no BM after MOM Fleet Enema 19-7 gram/118 mL Enema 118 ml NH UD PRN (Reason: Constipation) Rx Instructions: no BM after dulcolax, administer on 7-3 shift day 4 alendronate [Fosamax] 70 mg tablet 70 mg PO WK Rx Instructions: MONDAYS pantoprazole 40 mg tablet,delayed release (DR/EC) 40 mg PO BID calcium carbonate-vitamin D3 [Calcium 500 + D] 500 mg-5 mcg (200 unit) tablet 1 tab PO QAM venlafaxine 75 mg Capsule,Extended Release 24hr 75 mg PO QAM alum-mag hydroxide-simeth [Mylanta Maximum Strength] 400-400-40 mg/5 mL Suspension 10 ml PO Q4H PRN (Reason: Stomach Upset) oxycodone 5 mg Tablet 10 mg PO Q4H PRN (Reason: Pain (Scale Score 9 -10)) oxycodone 5 mg Tablet 5 mg PO Q4H PRN (Reason: Pain (Scale Score 5 - 8)) Discharge Orders: Discharge Order (Routine); Ordered 06/21/24 Ordered By: Nishant Marrufo/Other Patient Handouts: Nutrition for Wound Healing, Managing Type 2 Diabetes Admission Data Admit Date/Time: 06/16/24 18:47 Attending Provider: Nishant Kelly Admit Provider: Doris Laughlin Primary Care Provider: [facility] Other Providers: Kady Rhoades; Doris Laughlin Other Interventions: Discharge Summary Assessment (RN) Last Done: 06/21/24 13:00 Hospital Stay Data Consultations 06/16/24 16:10 ED Decision to Admit Stat 06/16/24 18:47 Consult Infectious Diseases Routine Diagnostic Imagining Performed 06/16/24 13:55 CT abd pelvis IV con only Stat CT hand LT w con Stat CT head/brain wo con Stat Pending Results Patient Have Any Pending Studies at Discharge: No Discharge Instructions Given to Patient (Per Discharging Provider) You were admitted to [facility] from June 16-2023 due to increased confusion. You were diagnosed with a amputation/stump/bone infection and urine trace infection. Your case was discussed with orthopedics and do not recommend surgical debridement at this time. 7 surgical leighton were removed but orthopedics recommended leaving the rest in until follow up. You were seen by infectious disease and recommended 6 weeks of intravenous antibiotics. Antibiotics switched to ertapenem with planned last day July 28. Recommend weekly CBC w diff, CMP, and ESR/CRP while on IV abx. These antibiotics will also cover for your ESBL E. coli UTI. No PICC line / mid line could be placed due to lack of suitable vein therefore antibiotics will be given through an US guided IV this was placed June 18. Marketed to last for 29 days. Next dressing change for US guided IV June 25 and should be changed weekly. She should follow up with Dr Lay as previously planned for her amputation. Please see separate instructions for wound care management. Total Time Total Time Spent Total Time Spent (In Minutes): 50 Coding Level of Care Code 69717 INP/OBS DISCH >30 MIN Diagnoses Amputation stump infection T87.40 Urinary tract infection, site not specified N39.0 Acute metabolic encephalopathy G93.41 Anemia, unspecified type D64.9 Anemia type: unspecified type Type 2 diabetes mellitus with other specified complication, without long-term current use of insulin E11.69 Diabetes mellitus complication status: with other specified complication Diabetes mellitus prison insulin use: without prison use Primary hypertension I10 Hypertension type: primary hypertension CVA (cerebral vascular accident) I63.9 Lone atrial fibrillation I48.91
== END 2024-06-21 14:10 | DRG 564 ==
LOC: SUATTDRO → ED 11:45 → EDINP 18:47 → SUATTDRO 18:47 → 3W 22:35